=== PATIENT | female | born 1960 | race Caucasian/White ===

== ENCOUNTER 2017-12-22 07:33 | Emergency (ER) | payer OTHER, SELFPAY ==
[2017-12-22 07:35] VITALS: BP 131/64; PULSE 46; RESP 17; TEMP 36.5; BMI 29.7
--- NOTE | 2017-12-22 07:58 | ED.VISSUMM ---
- ER Visit Summary Date of Service: 12/22/17 Chief Complaint: Left posterior neck discomfort History of Present Illness: The patient is a 57 F past medical history of typ-tpinrqp-[id number] diabetes, hypertension, high cholesterol. Patient states the last week she has had discomfort in the left posterior neck. Denies any falls or trauma. No fever. Also describes some discomfort in her left ear. No sore throat. No fever. No trouble with movement of her neck. No prior neck surgery. She denies any pain radiating to her left arm or any numbness or left hand weakness. Physical Examination: Well-appearing middle-age female. Vital signs are stable afebrile. H EENT exam TMs are normal bilaterally. Posterior pharynx normal. No exudate. No trouble swallowing or breathing. Neck trachea midline. No lymphadenopathy. She has full flexion-extension and rotation of her neck without any difficulty. The left posterior base of her neck has trapezial tenderness. There is no redness or warmth. No bony deformity or tenderness of the C-spine. Back otherwise is nontender. Lungs clear to auscultation bilaterally. Heart regular rate and rhythm no murmur. Chest wall nontender. Abdomen soft nontender. She is moving all 4 extremities. They are neurovascularly intact. 5 out of 5 clamp jig assembler strength bilaterally. Normal sensation. Equal symmetrical radial pulses. Full range of motion of both upper extremities including the shoulders, elbows and wrists. Lower extremities are unremarkable with normal dorsi and plantar flexion. Full range of motion. No edema. Neurologic exam is normal. Test Results: None Emergency Department Course and Treatment: Patient's history and exam are consistent with left trapezius muscle spasm. Treatment Plan: Discharged to home. Motrin for pain and inflammation. Warm compresses, hot shower or bath to left neck. Disposition: Discharge Impression: Left trapezius muscle spasm This note was generated with [employer] dictation software. It may contain incorrect words, spelling, and punctuation that were not noted in review of the chart prior to signing ED Disposition - Plan for ED Patient: Chief Complaint: Other, Pain/Inj Referrals: Raffy Naranjo III, MD [Primary Care Provider] -
--- NOTE | 2017-12-22 08:01 | ED.DCSUM_ITS ---
- ER Visit Summary Date of Service: 12/22/17 Chief Complaint: Left posterior neck discomfort History of Present Illness: The patient is a 57 F past medical history of mdk-lfsnhkb-[id number] diabetes, hypertension, high cholesterol. Patient states the last week she has had discomfort in the left posterior neck. Denies any falls or trauma. No fever. Also describes some discomfort in her left ear. No sore throat. No fever. No trouble with movement of her neck. No prior neck surgery. She denies any pain radiating to her left arm or any numbness or left hand weakness. Physical Examination: Well-appearing middle-age female. Vital signs are stable afebrile. H EENT exam TMs are normal bilaterally. Posterior pharynx normal. No exudate. No trouble swallowing or breathing. Neck trachea midline. No lymphadenopathy. She has full flexion-extension and rotation of her neck without any difficulty. The left posterior base of her neck has trapezial tenderness. There is no redness or warmth. No bony deformity or tenderness of the C-spine. Back otherwise is nontender. Lungs clear to auscultation bilaterally. Heart regular rate and rhythm no murmur. Chest wall nontender. Abdomen soft nontender. She is moving all 4 extremities. They are neurovascularly intact. 5 out of 5 process controller strength bilaterally. Normal sensation. Equal symmetrical radial pulses. Full range of motion of both upper extremities including the shoulders, elbows and wrists. Lower extremities are unremarkable with normal dorsi and plantar flexion. Full range of motion. No edema. Neurologic exam is normal. Test Results: None Emergency Department Course and Treatment: Patient's history and exam are consistent with left trapezius muscle spasm. Treatment Plan: Discharged to home. Motrin for pain and inflammation. Warm compresses, hot shower or bath to left neck. Disposition: Discharge Impression: Left trapezius muscle spasm This note was generated with [employer] dictation software. It may contain incorrect words, spelling, and punctuation that were not noted in review of the chart prior to signing ED Disposition - Plan for ED Patient: Chief Complaint: Other, Pain/Inj Referrals: Raffy Naranjo III, MD [Primary Care Provider] -
--- NOTE | 2017-12-22 08:01 | ED.DEP ---
ED Disposition - Plan for ED Patient: Disposition: Home or Assisted Living Chief Complaint: Other, Pain/Inj Instructions: ED Spasm Muscle Referrals: Raffy Naranjo III, MD [Primary Care Provider] - 1 Week if not improving Additional Instructions: Motrin for pain. Warm compresses, hot shower, hot bath or heating pad to left side of your neck to release the muscle spasm. Also massage. Follow-up with your doctor if not improving. Stop smoking!!
== END 2017-12-22 08:11 | disposition home or self-care (01) ==
PROVIDERS: Emergency Provider Emergency Medicine; Family Provider Family Medicine; PCP Family Medicine
DX: M62.830 Muscle spasm of back (principal); E11.9 Type 2 diabetes mellitus without complications; I10 Essential (primary) hypertension; E78.00 Pure hypercholesterolemia, unspecified; Z72.0 Tobacco use; Z79.84 Long term (current) use of oral hypoglycemic drugs; Z79.899 Other long term (current) drug therapy
CPT/HCPCS: 99282

== ENCOUNTER 2018-07-17 07:14 | Emergency (ER) | payer OTHER, SELFPAY ==
[2018-07-17 07:16] VITALS: BP 168/79; PULSE 48; RESP 18; TEMP 36.6; O2SAT 98
--- NOTE | 2018-07-17 07:26 | RAD_ITS ---
STUDY: X-RAY CHEST REASON FOR EXAM: Female, 57 years old. Swelling in the left shoulder region. TECHNIQUE: PA and lateral views of the chest. COMPARISON: None. FINDINGS: EKG electrodes are seen. The lungs are clear and expanded. There is no demonstrated pleural abnormality. Normal size heart. Normal mediastinum and pietro. Normal visualized pulmonary arteries. Normal visualized aortic arch and descending thoracic aorta. There are mild degenerative changes of the visualized thoracic spine. Normal visualized ribs, clavicles, and shoulders. There is no demonstrated abnormality of the visualized soft tissue structures of the upper abdomen. RAD/Chest PA and Lateral IMPRESSION: No acute abnormality is seen. Electronically Signed: Jose Martin Cohn, at 8:12 EDT , Service support ,
--- NOTE | 2018-07-17 07:31 | ED.DCSUM_ITS ---
History of Present Illness Chief Complaint: General Illness Detail of Chief Complaint: Pain left clavicle and fullness in the supraclavicular fossa on the left Informant: Patient Onset: Weeks - Patient reports intermittent left clavicular pain and fullness noted 1 week ago. Context: Sudden Onset Timing: Continuous - Fullness has been constant, Intermittent - Pain is intermittent Quality: Sharp pain Location: Left clavicle Current Severity: - - Presently no pain. Positive fullness supraclavicular fossa Maximum Severity: Moderate Worsened by: Nothing Relieved by: Nothing Associated Symptoms: No associated symptoms Narrative: Patient is a 57-year-old zuxop-goxq-[id number] woman who was sent from urgent care because of bradycardia. Patient states her blood pressure is normally low. She denies dyspnea, dyspnea on exertion, chest pressure, heaviness. She denies orthostatic symptoms. She does report intermittent left clavicular pain for the past week. She is noted a fullness in the supraclavicular fossa. She denies fever, chills or night sweats. She denies weight loss. She reports weight gain. She denies change in bowels i.e. caliber, consistency, color or frequency. She is a smoker. She is been a smoker since she was a teenager. She does have a cough. The cough is nonproductive. There is no history of trauma. She denies paresthesia, anesthesia motor weakness upper extremities. She denies radiation of the discomfort to her back or anywhere. Prior similar symptoms: No Recent Illness/Hospitalization: No - Past Medical History (1) History of hypertension Status: Acute (2) History of type 2 diabetes mellitus Status: Acute (3) History of hypercholesterolemia Status: Acute Past Medical History - Allergies and Home Meds Allergies/Adverse Reactions: Allergies No Known Allergies Allergy (Verified 07/17/18 07:18) Primary Care Physician: Raffy Naranjo III, MD [Primary Care Provider] - Prior records reviewed: Yes Lives: Alone Smoking Status: Current every day smoker Drugs: None Review of Systems General: Denies: Chills, Fever, Malaise, Subjective, Sweats, Weight loss, - Eyes: Denies: Visual changes - bilaterally, Blurred Vision - bilaterally, Diplopia ENT: Denies: Rhinorrhea, Sore throat Cardiovascular: Denies: Chest pain, Palpitations, Heart racing Respiratory: Reports: Cough. Denies: Dyspnea, Sputum, Dyspnea on exertion, Orthopnea, Paroxysmal nocturnal dyspnea Gastrointestinal: Denies: Abdominal pain, Nausea, Vomiting, Diarrhea, Constipation, Melena, Hematochezia, -, - Musculoskeletal: Denies: Myalgias, Arthralgias, Neck pain, Back pain, Swelling, Extremity Pain Skin: Denies: Rash, Wounds Neurological: Denies: Weakness, Parasthesia Allergy: Denies: Uticaria, Swelling of the mouth, Swelling of the tongue Physical Exam Vital Signs/Narrative: Vital Signs Temp Pulse Resp BP Pulse Ox 07/17/18 07:16 98 F 48 L 18 168/79 H 98 Inital Vital Signs reviewed: Yes General: Well nourished, Well developed, No Acute Distress Head: Normocephalic, Atraumatic Eyes: Perrl, EOMI. Negative for: Pale conjunctiva, Scleral icterus, - ENT: Moist mucous membranes, No rhinorrhea, TM's clear Neck: Supple, Nontender, No lymphadenopathy, No JVD, - - Status post right carotid endarterectomy. There is fullness left side of neck/supraclavicular fossa. Cardiovascular: Regular rhythm, No murmurs, Normal S1, Normal S2, Bradycardia Respiratory: No distress, Chest nontender, Rales - Scattered and inspiratory rales., Diminished, - - There is no tenderness to the left clavicle. There is fullness left anterior neck/supraclavicular fossa. There is no lymphadenopathy. There is no palpable mass. There is no crepitus or subcutaneous air noted. Abdomen: Soft, Nontender, Nondistended, Normal bowel sounds Skin: Normal color, No rash, No Trauma. Negative for: Cyanosis, Diaphoresis, Jaundice Neurological: Alert, Oriented x3, Cranial nerves II-XII grossly intact, Normal Strength, Normal Sensation, Normal Gait Psychological: Normal affect Diagnostic/Tx/Re-eval Chest X-Ray - ED: 2 View, Read by ED Physician, Normal, Heart, Mediastinum, Bony Structures, No Acute Disease, Chronic Changes, - - There is minimal chronic changes noted. There is mild scoliosis. There is no asymmetry of the neck soft tissue. Impressions Chest X-Ray 07/17/18 07:26 IMPRESSION: No acute abnormality is seen. Electronically Signed: Jose Martin Cohn, at 8:12 EDT , Service support , 07/17/18 07:26 Chest PA and Lateral [RAD] Stat Laboratory Results 07/17/18 07/17/18 07:48 07:48 WBC 9.4 RBC 4.80 Hgb 14.9 Hct 43.8 MCV 91.3 MCH 31.0 MCHC 34.0 RDW 13.4 RDW Differential 44.6 H Plt Count 301 MPV 9.7 Immature Gran % (Auto) 0.100 Neut % (Auto) 62.4 Lymph % (Auto) 22.9 Stephenson % (Auto) 8.5 Eos % (Auto) 5.5 H Baso % (Auto) 0.6 Absolute Neuts (auto) 5.9 Absolute Lymphs (auto) 2.16 Total Counted Not Reportable Sodium 134 L Potassium 4.2 Chloride 103 Carbon Dioxide 26.0 Anion Gap 5 BUN 10 Creatinine 1.08 H Estim Creat Clear Calc 43.89 Est GFR (MDRD) Af Amer 67 Est GFR (MDRD) Non-Af 56 L BUN/Creatinine Ratio 9.3 L Glucose 112 H Calcium 9.1 - Rhythm Strip Rhythm Strip: Atrial bigeminy with a ventricular rate of 84 Rate: 84 Ectopy: PAC(s) - Medical Decision Making The soft tissue fullness may represent apical bleb. With history of smoking one needs to entertain possibility of malignancy. There is no clinical findings to suggest supra vena cava syndrome. BMP and CBC were obtained to assess for electrolyte abnormality or anemia which may suggest malignancy. Patient's work-up was unremarkable. If she develops any symptoms or change in fullness will have her follow-up with PCP, Dr. Raffy Naranjo iii. ED Disposition - Plan for ED Patient: Diagnosis: Atrial bigeminy, Pain of left clavicle Instructions: ED Acute Pain [facility] Referrals: Raffy Naranjo III, MD [Primary Care Provider] - 1 Week if not improving Additional Instructions: If you develop temperature greater than 100, if the area becomes discolored or you have any concerns follow-up with Dr. Raffy Naranjo iii.
[2018-07-17 07:37] VITALS: BP 168/79; PULSE 48; RESP 18; TEMP 36.6; O2SAT 98
[2018-07-17 07:52] VITALS: BP 164/50; PULSE 82; RESP 22; O2SAT 98
[2018-07-17 08:04] LABS: Absolute Lymphocyte Count 2.16 X10^3/ul (0.83-4.51); Absolute Neutrophil Count 5.9 X10^3/uL (2.0-7.7); Basophil# 0.06 X10^3/uL; Basophil% 0.6 % (0-1); Eosinophil# 0.52 X10^3/uL; Eosinophils% 5.5 % (0-5); Hematocrit 43.8 % (37-47); Hemoglobin 14.9 g/dl (12.0-15.0); Lymphocyte # 2.16 X10^3/ul (4.0); Lymphocyte % 22.9 % (19-41); Mean Corpuscular Volume 91.3 fL (81-99); Mean Platelet Vol. 9.7 fl (6.2-12.0); Monocyte% 8.5 % (0-10); Neutrophil # 5.89 X10^3/uL (2.7-7.7); Neutrophil % 62.4 % (47-70); Platelet Count 301 K/mm3 (150-450); RBC Distribution Width CV 13.4 % (11.6-14.6); RBC Distribution Width SD 44.6 fl (35.1-43.9); White Blood Count 9.4 K/mm3 (4.4-11.0)
[2018-07-17 08:07] LABS: POSITIVE COUNT NO; POSITIVE DIFFERENTIAL NO; POSITIVE MORPHOLOGY NO
[2018-07-17 08:14] LABS: Anion Gap 5 (5-15); BUN 10 mg/dL (7-18); BUN/Creat Ratio 9.3 RATIO (10-20); Calcium,Total 9.1 mg/dL (8.5-10.1); Chloride 103 mmol/L (98-107); Creatinine, Serum 1.08 mg/dL (0.55-1.02); EST Glomerular Filtration Rate 56 mL/min (>60); Est Glom Filt Rate - Afr Amer 67 mL/min (>60); Estimated Creatinine Clearance 43.89 ml/min; Glucose 112 mg/dL (74-106); Potassium 4.2 mmol/L (3.5-5.1); Sodium Level 134 mmol/L (136-145)
[2018-07-17 08:35] VITALS: BP 125/55; PULSE 83; RESP 19; O2SAT 98
== END 2018-07-17 08:40 | disposition home or self-care (01) ==
LOC: ED 07:32
PROVIDERS: Emergency Provider Emergency Medicine; Family Provider Family Medicine; PCP Family Medicine
DX: R00.8 Other abnormalities of heart beat (principal); M25.512 Pain in left shoulder; E11.9 Type 2 diabetes mellitus without complications; I10 Essential (primary) hypertension; E78.00 Pure hypercholesterolemia, unspecified; F17.200 Nicotine dependence, unspecified, uncomplicated; Z79.899 Other long term (current) drug therapy; Z79.84 Long term (current) use of oral hypoglycemic drugs
CPT/HCPCS: 36415; 71046; 80048; 85025; 99282; A4216

== ENCOUNTER 2020-07-11 09:09 | Emergency (ER) | payer OTHER, SELFPAY ==
[2020-07-11 09:09] VITALS: BP 140/78; PULSE 80; RESP 18; TEMP 36.6; O2SAT 99; BMI 29.2
--- NOTE | 2020-07-11 09:15 | EKG12_ITS ---
Test Reason : SOB Blood Pressure : / mmHG Vent. Rate : 074 BPM Atrial Rate : 074 BPM P-R Int : 172 ms QRS Dur : 096 ms QT Int : 404 ms P-R-T Axes : 051 -32 034 degrees QTc Int : 448 ms Normal sinus rhythm Left axis deviation Low voltage QRS (Limb Leads) Abnormal ECG Confirmed by MARICEL PALACIO, RAVINDER ([id number]), news copy editor TENISHA SHAIKH ([id number]) on 07/13/2020 12:23:37 PM Referred By: SUSAN Confirmed By:RAVINDER CONNELLY MD
--- NOTE | 2020-07-11 09:24 | EDS_ITS ---
HPI History of Present Illness Chief Complaint: Shortness of Breath Narrative Narrative: The patient presents with chronic cough shortness of breath related to COPD she has had for longstanding possibly years she is on Proventil inhaler she is seen by Dr. Acosta primary care indicates her cough seems to be slightly worse, no mucus no fever no coronavirus exposure infection indicates she has been vaccinated in June she believes she was tested postvaccination did not have coronavirus had no exposures she is eating and drinking well bowel bladder habits unremarkable able XL daily activities she has no shortness of breath sitting in the bed her vital signs are unremarkable her pulse ox is 97% and no exposures to coronavirus, she indicates she feels back to baseline she has been using her inhaler [facility] Medical History (Updated 07/11/20 @ 09:30 by Jaja Whitten) COPD (chronic obstructive pulmonary disease) Diabetic acetonemia Hyperlipidemia Home Medications atorvastatin 20 mg PO QHS 12/22/17 [History Last Taken Unknown] lisinopril 5 mg PO DAILY 12/22/17 [History Last Taken Unknown] metformin 500 mg PO DAILY 12/22/17 [History Last Taken Unknown] thiothixene 2 mg PO DAILY 12/22/17 [History Last Taken Unknown] Allergy/AdvReac Type Severity Reaction Status Date / Time No Known Allergies Allergy Verified 07/11/20 09:12 Surgical History (Updated 07/11/20 @ 09:30 by Jaja Whitten) H/O carotid endarterectomy History of appendectomy Social History Smoking Status: Current every day smoker tobacco type: cigarettes ROS ROS ED Constitutional Constitutional ED: Reports subjective, sweats and other; Denies chills, fever(s) or weight loss Eyes Eyes: Denies blurry vision or change in vision ENT ENT ED: Denies ear pain Cardiovascular Cardiovascular: Denies chest pain or palpitations Respiratory/Chest Respiratory/Chest: Denies dyspnea Gastrointestinal Gastrointestinal: Denies abdominal pain, nausea or vomiting Genitourinary Genitourinary ED: Denies dysuria or hematuria Musculoskeletal Musculoskeletal: Denies arthralgias or myalgias Integumentary Reports rash; Denies abscess Neurologic Neurologic: Denies weakness Psychiatric Psychiatric: Denies anxiety or depression Endocrine Endocrinology: Denies polydipsia or polyuria Allergic/Immunologic Allergic/Immunologic ED: Denies urticaria EXAM Physical Exam Const Vital Signs: 07/11/20 09:09 07/11/20 09:29 Temperature 97.9 F Temperature Source Temporal Pulse Rate 80 75 Respiratory Rate 18 20 H Respiratory Effort Short of Breath Labored Respiratory Pattern Normal Blood Pressure 140/78 H Blood Pressure Mean 98 Pulse Ox 99 97 Oxygen Delivery Method Room Air Room Air Positive well developed General Appearance ED: well developed HEENT Reports normocephalic Negative for trauma Eyes EOMs intact bilaterally Neck supple Chest Wall inspection of chest normal Resp normal respiratory effort Cardio regular rate GI non-tender and non-distended Back/Spine Back/Spine Narrative: unremarkable Extremity normal to inspection Neuro oriented x3 and CN's II-XII intact bilaterally Sensorium / Orientation: alert Psych mental status grossly normal Skin no rashes or lesions noted MDM MDM MDM Narrative Medical decision making narrative: The patient is in no distress her vital signs are normal her lungs are clear heart tones are unremarkable resting comfortably in the bed she is eating and drinking well she indicates that basically she feels at her baseline this is a chronic relapsing condition with a cough history of COPD there is nothing to suggest this is acute issue related to coronavirus given the above history given all the above she will be evaluated with ED screening labs chest x-ray EKG Patient's EKG shows a sinus rhythm rate of about 70 no acute injury her chest x- ray to my review 1 view was unremarkable radiology generally concurs she is in no distress she feels fine this time she be discharged home and can use her inhaler as well as outpatient providers return for change in symptoms Final impression exacerbation of COPD improved, Home stable disposition Lab Data Labs: Laboratory Results - last 24 hr 07/11/20 07/11/20 09:35 09:35 WBC 8.5 RBC 4.26 Hgb 13.8 Hct 40.5 MCV 95.1 MCH 32.4 H MCHC 34.1 RDW Std Deviation 46.5 H RDW Coeff of Panchito 13.2 Plt Count 320 MPV 9.3 Immature Gran % (Auto) 0.500 Neut % (Auto) 62.1 Lymph % (Auto) 25.9 Bowman % (Auto) 6.8 Eos % (Auto) 3.9 Baso % (Auto) 0.8 Absolute Neuts (auto) 5.3 Absolute Lymphs (auto) 2.21 Nucleated RBC % 0 Sodium 134 L Potassium 4.3 Chloride 104 Carbon Dioxide 25.0 Anion Gap 5 BUN 11 Creatinine 1.00 Estim Creat Clear Calc 46.27 Est GFR (MDRD) Af Amer 73 Est GFR (MDRD) Non-Af 60 BUN/Creatinine Ratio 11.0 Glucose 113 H Calcium 9.2 Radiography Diagnostic Testing: Radiology Impression Chest X-Ray 07/11/20 09:35 IMPRESSION: Normal x-ray examination of the chest. Electronically Signed: Jose Martin Cohn MD at 9:55 EDT , Service support , Discharge Plan Triage Chief Complaint: Shortness of Breath ED Provider: Abbey Munoz Dx/Rx/DC Orders Instructions: ED COPD Flare Prescriptions: No Action metformin 500 MG tablet 500 mg PO DAILY RF: 0 atorvastatin 20 MG tablet 20 mg PO QHS RF: 0 thiothixene 2 MG capsule 2 mg PO DAILY RF: 0 lisinopril 5 MG tablet 5 mg PO DAILY RF: 0 Primary Care Provider: Raffy Naranjo III Referrals: Raffy Naranjo III, MD [Primary Care Provider] - Disposition Disposition: Home, self care
[2020-07-11 09:29] VITALS: PULSE 75; RESP 20; O2SAT 97
--- NOTE | 2020-07-11 09:35 | RAD_ITS ---
STUDY: X-RAY CHEST REASON FOR EXAM: Female, 59 years old. Sob TECHNIQUE: Single AP portable view of the chest. COMPARISON: Comparison is made with prior study dated 07/17/2018. FINDINGS: EKG electrodes are seen. The lungs are clear and expanded. There is no demonstrated pleural abnormality. Normal size heart. Normal mediastinum and pietro. Normal visualized pulmonary arteries. Normal visualized aortic arch and descending thoracic aorta. There are diffuse degenerative changes of the visualized thoracic spine. Normal visualized ribs, clavicles, and shoulders. There is no demonstrated abnormality of the visualized soft tissue structures of the upper abdomen. RAD/Chest 1 View (Portable) IMPRESSION: Normal x-ray examination of the chest. Electronically Signed: Jose Martin Cohn MD at 9:55 EDT , Service support ,
[2020-07-11 09:42] LABS: Absolute Lymphocyte Count 2.21 X10^3/uL (0.83-4.51); Absolute Neutrophil Count 5.3 X10^3/uL (2.0-7.7); Basophil# 0.07 X10^3/uL; Basophil% 0.8 % (0-1); Eosinophil# 0.33 X10^3/uL; Eosinophils% 3.9 % (0-5); Hematocrit 40.5 % (37-47); Hemoglobin 13.8 g/dL (12.0-15.0); Lymphocyte # 2.21 X10^3/ul (0.83-4.51); Lymphocyte % 25.9 % (19-41); Mean Corp Hgb Conc 34.1 g/dL (32-36); Mean Corpuscular Hgb 32.4 pg (27.0-32.0); Mean Corpuscular Volume 95.1 fL (81-99); Mean Platelet Vol. 9.3 fl (6.2-12.0); Monocyte# 0.58 X10^3/uL; Monocyte% 6.8 % (0-10); NRBC Flagged by Analyzer 0 % (0-5); Neutrophil # 5.31 X10^3/uL (2.7-7.7); Neutrophil % 62.1 % (47-70); Platelet Count 320 K/mm3 (150-450); RBC Distribution Width CV 13.2 % (11.6-14.6); RBC Distribution Width SD 46.5 fl (35.1-43.9); Red Blood Count 4.26 M/mm3 (4.2-5.4); White Blood Count 8.5 K/mm3 (4.4-11.0)
[2020-07-11 09:57] LABS: Anion Gap 5 (5-15); BUN 11 mg/dL (7-18); Calcium,Total 9.2 mg/dL (8.5-10.1); Chloride 104 mmol/L (98-107); EST Glomerular Filtration Rate 60 mL/min (>60); Est Glom Filt Rate - Afr Amer 73 mL/min (>60); Estimated Creatinine Clearance 46.27 ml/min; Glucose 113 mg/dL (74-106); Potassium 4.3 mmol/L (3.5-5.1); Sodium Level 134 mmol/L (136-145)
[2020-07-11 11:24] VITALS: BP 139/87; PULSE 74; RESP 18; O2SAT 97
== END 2020-07-11 11:31 | disposition home or self-care (01) ==
PROVIDERS: Emergency Provider Emergency Medicine; PCP Family Medicine
DX: J44.1 Chronic obstructive pulmonary disease with (acute) exacerbation (principal); F17.210 Nicotine dependence, cigarettes, uncomplicated; E78.5 Hyperlipidemia, unspecified
CPT/HCPCS: 71045; 80048; 85025; 93005; 99281; A4216

== ENCOUNTER → 2020-07-20 06:40 | Outpatient (CLI) | payer OTHER, SELFPAY ==
[2020-07-11 09:09] VITALS: BMI 29.2
--- NOTE | 2020-07-20 09:48 | STRESSREP_ITS ---
Stress Test Report Date: 07-20-2020 Procedure: Pharmacologic stress nuclear imaging study Indications: Shortness of breath/dyspnea on exertion; lightheadedness Consent: Per the patient Procedure: The patient underwent pharmacologic (Regadenoson 0.4mg ) evaluation with a peak heart rate of 81 beats per minute (50%predicted maximal heart rate) and a peak blood pressure of 120/48 mmHg. The baseline ECG demonstrated sinus rhythm. The peak pharmacologic ECG demonstrated no obvious ECG changes. There were no cardiac dysrhythmias pretest, during pharmacologic infusion, or recovery. There was no complaint of chest discomfort during pharmacologic infusion or recovery. The examination was discontinued secondary to completion of protocol. Impression: 1. Pharmacologic (Regadenoson) evaluation 2. Peak pharmacologic ECG with no obvious ECG changes. 3. There were no cardiac dysrhythmias pretest, during pharmacologic infusion, or recovery. 4. Nuclear images pending Myocardial perfusion imaging study: Technique: The patient was injected with 11.6 millicuries of technetium 99m Cardiolite and subsequently rest SPECT Cardiolite nuclear imaging was obtained in the horizontal long, vertical long, and short axis views. The patient underwent pharmacologic (Regadenoson) evaluation with a peak heart rate of 81 beats per minute (50% percent predicted maximal heart rate) and a peak blood pressure of 120/48 mmHg. The patient was injected with 32.9 millicuries of technetium 99m Cardiolite and subsequently stress SPECT Cardiolite nuclear imaging was obtained in the horizontal long, vertical long, and short axis views. A gated Cardiolite study at peak stress was obtained. Interpretation: Rest and stress SPECT Cardiolite nuclear imaging status post realignment, normalization, and attenuation correction demonstrate relative uniform tracer uptake and myocardial perfusion appearing within normal limits. There is end systolic thickening and brightening. The gated Cardiolite study demonstrates myocardial thickening and inward wall motion. The reported LVEF is 71%. Impression: 1. Rest and stress SPECT Cardiolite nuclear imaging demonstrate relative uniform tracer uptake and myocardial perfusion appearing within normal limits. 2. The gated Cardiolite study reports an LVEF of 71%. This note was generated with [email or web address] software. It may contain incorrect words, spelling, and punctuation that were not noted in checking the note before signing.
== END ==
LOC: CVS 06:42
PROVIDERS: PCP Family Medicine; Referring Provider Registered Nurse; Visit Provider Registered Nurse
DX: R06.02 Shortness of breath (principal)
CPT/HCPCS: 78452; 93017; A9500; A4216; J2785

== ENCOUNTER 2022-10-09 17:08 | Emergency (ER) | payer OTHER, SELFPAY ==
[2022-10-09 17:09] VITALS: BP 140/71; PULSE 85; RESP 18; TEMP 35.8; O2SAT 100; BMI 26.8
--- NOTE | 2022-10-09 17:29 | ED.VIS.LOWEX ---
HPI History of Present Illness Chief Complaint: Lower Extremity Injury Narrative Narrative: 61-year-old female past medical history of hypercholesterolemia, hypertension, diabetes, smoker, presents with pain in her right leg since yesterday. 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 She noticed swelling of the upper portion of her right knee and medially. She denies any chest pain or shortness of breath. She denies any fall or direct trauma to her leg. She went to urgent care today who states that she needs to come to the emergency department for an ultrasound. She states they were trying to set her up for an ultrasound on Friday, but the provider there was concerned about a blood clot or Frances's cyst. [facility] Medical History COPD (chronic obstructive pulmonary disease) Diabetic acetonemia Hyperlipidemia Home Medications atorvastatin 20 mg tablet 20 mg PO QHS 12/22/17 [History Last Taken Unknown] lisinopril 5 mg tablet 5 mg PO DAILY 12/22/17 [History Last Taken Unknown] metformin 500 mg tablet 500 mg PO DAILY 12/22/17 [History Last Taken Unknown] thiothixene 2 mg capsule 2 mg PO DAILY 12/22/17 [History Last Taken Unknown] Allergy/AdvReac Type Severity Reaction Status Date / Time No Known Allergies Allergy Verified 10/09/22 17:09 Surgical History H/O carotid endarterectomy History of appendectomy Social History Smoking Status: Current every day smoker tobacco type: cigarettes ROS ROS ED ROS Narrative Constitutional: No fever, no chills. HEENT: No sore throat. No neck pain. No loss of vision. No rhinorrhea. Cardiovascular: No chest pain. No palpitations. No pedal edema. Respiratory: No cough, no shortness of breath. Abdominal: No abdominal pain. No nausea. No vomiting. Genitourinary: No dysuria. No hematuria. Musculoskeletal: No myalgias. Right medial and caudal knee pain and swelling. Also complained of pain behind knee. Neurologic: No headaches. No dizziness. No lightheadedness. Skin: No rash. No change in color. Psychiatric: No depression. No anxiety. EXAM Physical Exam Narrative Exam Narrative: Afebrile. Vital signs noted. HEENT: Normocephalic. Atraumatic. PERRL, EOMI. Neck soft and supple. No point tenderness or step off. Cardiovascular: Regular rate and rhythm. No murmurs, rubs, or gallops appreciated. Respiratory: No tachypnea. Lungs clear to auscultation bilaterally. Gastrointestinal: Abdomen soft, nontender, with normoactive bowel sounds. No rebound or guarding. Neurological: Awake. Alert. Nonfocal, nonlateralizing. Skin: No rash. Normal color. No pallor. Musculoskeletal: No pedal edema. Full range of motion extremities. Flexion and extension mechanism intact right knee. No overt swelling or erythema. No palpable cord. EHL intact. No calf tenderness, no medial thigh tenderness or swelling. Const Vital Signs: 10/09/22 17:09 10/09/22 17:56 Temperature 96.5 F L Temperature Source Temporal Pulse Rate 85 79 Respiratory Rate 18 16 Blood Pressure 140/71 H 124/74 H Blood Pressure Mean 94 90 Pulse Ox 100 99 Oxygen Delivery Method Room Air Room Air MDM MDM MDM Narrative Medical decision making narrative: In the differential diagnosis is DVT versus Frances's cyst versus tendinitis versus knee sprain. I have lower suspicion for DVT based on her clinical examination. I do not feel laboratory work is indicated. Ultrasound was obtained of the right lower extremity and results were reviewed. I do not feel x-ray of the knee is indicated as she has been ambulatory and has had no direct trauma. I reviewed the radiology report of her ultrasound of the right lower extremity and while there is no DVT there is a cyst in the popliteal fossa that measures 3.0 x 2.8 x 0.9 cm. I feel this is more consistent with a Frances's cyst. As she has no DVT I do not feel any blood thinners are indicated. I feel she be discharged safely home with follow-up to her primary care provider and she was referred to orthopedics for further evaluation and treatment for her Frances's cyst. Return instructions to the emergency department were reviewed. Disposition is discharged home in stable condition. History & Record Review Discussion w/independent historian: Patient Additional record(s) reviewed:: Prior ED visit Radiography Diagnostic Testing: Clinical Impression(s) from Imaging Studies Venous Duplex 10/09/22 17:32 IMPRESSION: 1. No sonographic evidence of deep venous thrombosis. 2. Popliteal fossa cyst. Electronically Signed: Noam George MD at 18:26 EDT , Discharge Plan Triage Chief Complaint: Lower Extremity Injury ED Provider: Guille Charles Dx/Rx/DC Orders Clinical Impression: Frances's cyst of knee, Knee pain Instructions: ED Frances's Cyst, ED Knee Pain of Uncertain Cause Prescriptions: No Action metformin 500 MG tablet 500 mg PO DAILY atorvastatin 20 MG tablet 20 mg PO QHS thiothixene 2 MG capsule 2 mg PO DAILY Patient Comments: take 1 capsule by mouth twice a day lisinopril 5 MG tablet 5 mg PO DAILY Stand Alone Forms: ED Work / School Excuse Primary Care Provider: Lulu Esparza NP Referrals: Blair Braxton DO [Med Staff - Active Staff] - As Needed Lulu Esparza NP, [employer] [Primary Care Provider] - 3-5 Days Disposition Disposition: Home, Self Care Discharge Date/Time: 10/09/22 18:06
--- NOTE | 2022-10-09 17:32 | US_ITS ---
EXAM: US DUPLEX RIGHT LOWER EXTREMITY VEINS CLINICAL INDICATION: POSTERIOR RT KNEE PAIN / SWELLING TECHNIQUE: Real-time duplex ultrasound scan of the right lower extremity veins integrating B-mode two-dimensional vascular structure, Doppler spectral analysis, color flow Doppler imaging and compression. COMPARISON: No relevant prior studies available. FINDINGS: DEEP VEINS: Unremarkable. No DVT in the visualized common femoral, femoral, proximal deep femoral or popliteal veins. The veins demonstrate normal color flow, are normally compressible, with normal phasic flow and/or augmentation response. SUPERFICIAL VEINS: Unremarkable. No thrombus in the visualized great saphenous vein. SOFT TISSUES: There is a 3.0 x 2.8 x 0.9 cm fluid collection compatible with a popliteal fossa cyst. US/Venous Duplex Imag/Limited/Uni IMPRESSION: 1. No sonographic evidence of deep venous thrombosis. 2. Popliteal fossa cyst. Electronically Signed: Noam George MD at 18:26 EDT ,
[2022-10-09 17:56] VITALS: BP 124/74; PULSE 79; RESP 16; O2SAT 99
== END 2022-10-09 18:06 | disposition home or self-care (01) ==
PROVIDERS: Emergency Provider Emergency Medicine; PCP Registered Nurse; Visit Provider Emergency Medicine
DX: M71.21 Synovial cyst of popliteal space [Baker], right knee (principal); J44.9 Chronic obstructive pulmonary disease, unspecified; E11.9 Type 2 diabetes mellitus without complications; F17.210 Nicotine dependence, cigarettes, uncomplicated; I10 Essential (primary) hypertension; M25.561 Pain in right knee; E78.00 Pure hypercholesterolemia, unspecified; Z79.899 Other long term (current) drug therapy; Z79.84 Long term (current) use of oral hypoglycemic drugs
CPT/HCPCS: 93971; 99282

== ENCOUNTER → 2024-01-21 | Outpatient (CLI) | payer MEDICAID, SELFPAY ==
[2024-01-21 12:11] LABS: Anion Gap 3 (5-15); BUN 7 mg/dL (7-18); Calcium,Total 9.5 mg/dL (8.5-10.1); Chloride 105 mmol/L (98-107); Creatinine, Serum 0.88 mg/dL (0.55-1.02); EST Glomerular Filtration Rate 69 mL/min (>60); Est Glom Filt Rate - Afr Amer 84 mL/min (>60); Glucose 108 mg/dL (74-106); Potassium 4.5 mmol/L (3.5-5.1); Sodium Level 137 mmol/L (136-145)
== END | disposition home or self-care (01) ==
PROVIDERS: PCP Registered Nurse; Referring Provider Internal Medicine Cardiovascular Disease; Visit Provider Internal Medicine Cardiovascular Disease
DX: Z86.39 Personal history of other endocrine, nutritional and metabolic disease (principal); Z86.79 Personal history of other diseases of the circulatory system
CPT/HCPCS: 36415; 80048

== ENCOUNTER 2024-11-18 20:33 | Inpatient (IN) | payer SELFPAY ==
[2024-11-18] VITALS (47 sets, daily range): BP systolic 54–131; BP diastolic 21–72; PULSE 65–145; RESP 12–32; TEMP 27.2–34.8; O2SAT 65–100; BMI 31.2
--- NOTE | 2024-11-18 20:50 | RAD_ITS ---
PROCEDURE: CHEST 1 VIEW (PORTABLE) 11/18/2024 REASON FOR EXAM: HYPOXIA, RESPIRATORY DISTRESS TECHNIQUE: Frontal view of the chest. COMPARISON: None. FINDINGS: Lungs/Pleura: Clear. No pneumothorax or sizable pleural effusion. Heart/Mediastinum: Within normal limits. No significant vascular congestion. Bones/Soft tissues: Mild degenerative changes of the spine. RAD/Chest 1 View (Portable) IMPRESSION: No acute cardiopulmonary disease. Reading Location: [id number]
[2024-11-18] MEDS: Albuterol 2.5 MG/3 ML VIAL.NEB. INHALATION ×3 (21:06→22:02)
[2024-11-18 21:13] LABS: Base Excess -13 mmol/L (-2 to +2); FI02 6.0; PO2 504 mmHG (75-100); SITE L Radial; SO2 100 % (95-99); Time Given 21:09:37
[2024-11-18] MEDS: 0.9% Normal Saline (1000mL) 1,000 ML 1000 ML IV (21:17)
[2024-11-18] MEDS: 0.9% Normal Saline (1000mL) 1,000 ML 999 ML IV ×2 (21:18→21:36)
[2024-11-18 21:36] LABS: Partial Thromboplast Time 32.1 Seconds (24.1-36.2); Prothrombin Time (Protime)PT. 15.7 SECONDS (11.7-14.9)
--- NOTE | 2024-11-18 21:51 | EDS_ITS ---
HPI History of Present Illness Chief Complaint: Chest Pain Detail of Chief Complaint: Per nursing staff she told them chest pain. She told me shortness of breat Informant: patient and EMS Onset/Context/Timing Onset: - (Uncertain because of decreased level of consciousness) Context: Sudden Onset (From what the nurses told me) Timing: Continuous Quality: Dyspnea, diaphoresis with cough Location: Multiple Current Severity: Severe Maximum Severity: Severe Worsened by: Unknown Relieved by: Improved with oxygen Associated Symptoms Associated Symptoms: Not able to determine for. Narrative Narrative: Patient is 64-year-old woman. she arrived by ambulance for reported chest pain. When I spoke to her once she became more lucid she complains of shortness of breath. She presently is denying chest pain. She denies fever or chills. She denies headache. She denies visual, ocular auditory symptoms. She does have a cough. The cough is nonproductive. There is no history of VTE. She has no risk factors for VTE. She denies leg pain, swelling discoloration. Patient denies abdominal pain. Patient denies urologic symptoms. Prior similar symptoms: No Recent Illness/Hospitalization: No PFSH PFSH Medical History Nicotine use disorder Septic arthritis Elevated coronary artery calcium score Neck pain Bilateral carotid artery stenosis Snoring Peripheral arterial disease Fatty liver disease, nonalcoholic Major depressive disorder, recurrent episode Bradycardia Palpitations SOB (shortness of breath) Diabetic acetonemia COPD (chronic obstructive pulmonary disease) Hyperlipidemia Home Medications ?Medication ?Instructions ?Recorded ?Last Taken ?Type atorvastatin 20 mg tablet 20 mg PO QHS 12/22/17 Unknow n History lisinopril 5 mg tablet 5 mg PO DAILY 12/22/17 Unkno wn History metformin 500 mg tablet 500 mg PO DAILY 12/22/17 Unk nown History aspirin 81 mg tablet,delayed 81 mg PO QDAY 01/14/24 Un known History release (Adult Aspirin Regimen) bupropion HCl 150 mg tablet,12 hr 150 mg PO BID Unknown History sustained-release (Wellbutrin SR) buspirone 5 mg tablet 5 mg PO TID 01/14/24 Unknown History cyclobenzaprine 5 mg tablet 5 mg PO TID PRN 01/14/24 U nknown History fluticasone fur. 100 mcg-umeclid 1 inh inhalation QDAY 01/14/24 Unknown History 62.5 mcg-vilant 25 mcg inhalat.powder (Trelegy Ellipta) ibuprofen 800 mg tablet 800 mg PO Q8H PRN 01/14/24 U nknown History imipramine HCl 50 mg tablet 150 mg PO QHS 01/14/24 Unk nown History ondansetron HCl 4 mg tablet 4 mg PO Q8H PRN 01/14/24 U nknown History thiothixene 2 mg capsule 2 mg PO BID 01/14/24 Unknown History zolpidem 10 mg tablet (Ambien) 10 mg PO QHS PRN sleep 01/14/24 Unknown History melatonin 5 mg capsule mg PO PRN 01/21/24 Unknown H istory pantoprazole 40 mg tablet,delayed 40 mg PO DAILY #90 t abs 03/26/24 Unknown Rx release Allergy/AdvReac Type Severity Reaction Status Date / Time simvastatin Allergy Other Verified 11/18/24 21:07 Family History Mother Heart disease Father Diabetes Brother Parkinson's disease Surgical History History of arthroscopy of knee History of colonoscopy History of rectal polypectomy History of cardiac catheterization H/O carotid endarterectomy History of appendectomy Social History household members: children Smoking Status: Current every day smoker tobacco type: cigarettes alcohol intake: never substance use type: does not use caffeine: Yes ROS ROS ED Review of Systems ROS Unobtainable: due to mental status Constitutional Constitutional ED: Reports other Details: Patient was cyanotic and diaphoretic upon presentation and respiratory distress ; Denies chills or fever(s) Eyes Eyes: Denies blurry vision or change in vision ENT ENT ED: Denies rhinorrhea or sore throat Cardiovascular Cardiovascular: Reports chest pain; Denies orthopnea, palpitations, paroxysmal nocturnal dyspnea or racing heartbeat Respiratory/Chest Respiratory/Chest: Reports cough and dyspnea; Denies orthopnea, paroxysmal nocturnal dyspnea or sputum Gastrointestinal Gastrointestinal: Denies diarrhea, nausea or vomiting Genitourinary Genitourinary ED: Denies dysuria, hematuria or urinary frequency Musculoskeletal Musculoskeletal: Denies arthralgias or myalgias Integumentary Denies rash Neurologic Neurologic: Denies headache(s) or paresthesias Endocrine Endocrinology: Denies cold intolerance or heat intolerance EXAM Physical Exam Const Vital Signs: 11/18/24 20:34 11/18/24 20:55 11/18/24 20:59 Temperature 81 F L Temperature Source Temporal Pulse Rate 85 88 Respiratory Rate 30 H 30 H Respiratory Pattern Tachypnea Blood Pressure 72/56 L Blood Pressure Mean 61 Blood Pressure Source Pulse Ox 65 100 100 Oxygen Delivery Method Room Air Bi-pap Oxygen Flow Rate (L/min) Fraction of Inspired Oxygen (FIO2) 100 11/18/24 21:00 11/18/24 21:01 11/18/24 21:02 Temperature Temperature Source Pulse Rate 91 91 91 Respiratory Rate 32 H 29 H 30 H Respiratory Pattern Blood Pressure 54/45 L 54/45 L 64/43 L Blood Pressure Mean 49 48 50 Blood Pressure Source Pulse Ox 100 Oxygen Delivery Method Bi-pap Oxygen Flow Rate (L/min) Fraction of Inspired Oxygen (FIO2) 11/18/24 21:04 11/18/24 21:06 11/18/24 21:06 Temperature Temperature Source Pulse Rate 88 81 Respiratory Rate 32 H 24 H Respiratory Pattern Tachypnea Blood Pressure 64/43 L Blood Pressure Mean 50 Blood Pressure Source Pulse Ox 100 100 Oxygen Delivery Method Bi-pap Bi-pap Oxygen Flow Rate (L/min) Fraction of Inspired Oxygen (FIO2) 11/18/24 21:10 11/18/24 21:10 11/18/24 21:11 Temperature Temperature Source Pulse Rate 75 74 Respiratory Rate 27 H 30 H Respiratory Pattern Blood Pressure 69/30 L 63/21 L 69/30 L Blood Pressure Mean 40 36 43 Blood Pressure Source Pulse Ox 100 Oxygen Delivery Method Bi-pap Oxygen Flow Rate (L/min) Fraction of Inspired Oxygen (FIO2) 11/18/24 21:15 11/18/24 21:15 11/18/24 21:20 Temperature Temperature Source Pulse Rate 72 68 72 Respiratory Rate 32 H 27 H 25 H Respiratory Pattern Tachypnea Blood Pressure 70/34 L 73/32 L Blood Pressure Mean 46 45 Blood Pressure Source Pulse Ox 100 100 100 Oxygen Delivery Method Oxygen Flow Rate (L/min) Fraction of Inspired Oxygen (FIO2) 28 11/18/24 21:25 11/18/24 21:30 11/18/24 21:35 Temperature 93.9 F L 94.2 F L Temperature Source Core Core Pulse Rate 79 93 87 Respiratory Rate 21 H 19 H 25 H Respiratory Pattern Blood Pressure 90/37 L 65/34 L 81/42 L Blood Pressure Mean 53 42 55 Blood Pressure Source Pulse Ox 98 100 100 Oxygen Delivery Method Oxygen Flow Rate (L/min) Fraction of Inspired Oxygen (FIO2) 11/18/24 21:36 11/18/24 21:40 11/18/24 21:45 Temperature 94.2 F L 94.4 F L Temperature Source Core Core Pulse Rate 87 85 Respiratory Rate 25 H 24 H Respiratory Pattern Blood Pressure 81/42 L 74/38 L 75/46 L Blood Pressure Mean 55 51 55 Blood Pressure Source Pulse Ox 100 100 Oxygen Delivery Method Bi-pap Oxygen Flow Rate (L/min) Fraction of Inspired Oxygen (FIO2) 11/18/24 21:50 11/18/24 21:55 11/18/24 22:00 Temperature 94.2 F L 94.2 F L 94.1 F L Temperature Source Core Core Core Pulse Rate 86 84 85 Respiratory Rate 24 H 24 H 25 H Respiratory Pattern Blood Pressure 76/50 L 72/31 L Blood Pressure Mean 59 39 Blood Pressure Source Pulse Ox 99 100 100 Oxygen Delivery Method Oxygen Flow Rate (L/min) Fraction of Inspired Oxygen (FIO2) 11/18/24 22:01 11/18/24 22:06 11/18/24 22:06 Temperature 94.1 F L 94.3 F L 94.1 F L Temperature Source Core Core Core Pulse Rate 96 80 85 Respiratory Rate 24 H 22 H 23 H Respiratory Pattern Blood Pressure 59/37 L 70/43 L 65/50 L Blood Pressure Mean 44 52 56 Blood Pressure Source Pulse Ox 100 100 Oxygen Delivery Method Nasal Cannula Oxygen Flow Rate (L/min) 2 Fraction of Inspired Oxygen (FIO2) 11/18/24 22:10 11/18/24 22:15 11/18/24 22:20 Temperature 94.1 F L 94.1 F L 94.2 F L Temperature Source Core Core Core Pulse Rate 81 80 Respiratory Rate 22 H 23 H Respiratory Pattern Blood Pressure 70/58 L 66/38 L 65/46 L Blood Pressure Mean 64 48 54 Blood Pressure Source Pulse Ox 100 100 Oxygen Delivery Method Oxygen Flow Rate (L/min) Fraction of Inspired Oxygen (FIO2) 11/18/24 22:21 11/18/24 22:25 11/18/24 22:26 Temperature 94.2 F L 94.3 F L Temperature Source Core Core Pulse Rate 65 80 Respiratory Rate 22 H Respiratory Pattern Blood Pressure 65/46 L 70/43 L 70/43 L Blood Pressure Mean 52 52 52 Blood Pressure Source Monitor Pulse Ox 100 100 Oxygen Delivery Method Nasal Cannula Oxygen Flow Rate (L/min) 2 Fraction of Inspired Oxygen (FIO2) 11/18/24 22:30 11/18/24 22:30 11/18/24 22:35 Temperature 94.3 F L 94.3 F L 94.3 F L Temperature Source Core Core Core Pulse Rate 88 86 Respiratory Rate 22 H 21 H Respiratory Pattern Blood Pressure 79/48 L 68/43 L 73/44 L Blood Pressure Mean 58 51 54 Blood Pressure Source Pulse Ox 100 100 Oxygen Delivery Method Nasal Cannula Oxygen Flow Rate (L/min) 2 Fraction of Inspired Oxygen (FIO2) 11/18/24 22:37 11/18/24 22:40 11/18/24 22:45 Temperature 94.3 F L 94.4 F L Temperature Source Core Core Pulse Rate 95 88 90 Respiratory Rate 22 H 22 H Respiratory Pattern Blood Pressure 73/44 L 79/48 L 82/54 L Blood Pressure Mean 53 58 63 Blood Pressure Source Monitor Pulse Ox 100 100 Oxygen Delivery Method Nasal Cannula Oxygen Flow Rate (L/min) 2 Fraction of Inspired Oxygen (FIO2) 11/18/24 22:45 11/18/24 22:50 11/18/24 23:00 Temperature 94.4 F L 94.4 F L 94.3 F L Temperature Source Core Core Core Pulse Rate 90 95 88 Respiratory Rate 19 H 18 18 Respiratory Pattern Blood Pressure 82/54 L 72/25 L 87/40 L Blood Pressure Mean 64 39 55 Blood Pressure Source Pulse Ox 100 97 Oxygen Delivery Method Nasal Cannula Room Air Oxygen Flow Rate (L/min) 2 Fraction of Inspired Oxygen (FIO2) 11/18/24 23:05 11/18/24 23:06 11/18/24 23:10 Temperature 94.3 F L 94.2 F L Temperature Source Core Core Pulse Rate 89 86 145 H Respiratory Rate 23 H 19 H Respiratory Pattern Blood Pressure 87/40 L 87/40 L 104/47 L Blood Pressure Mean 55 55 62 Blood Pressure Source Pulse Ox 95 97 Oxygen Delivery Method Room Air Room Air Oxygen Flow Rate (L/min) Fraction of Inspired Oxygen (FIO2) 11/18/24 23:15 11/18/24 23:17 11/18/24 23:20 Temperature 94.1 F L 94.2 F L Temperature Source Core Core Pulse Rate 91 91 93 Respiratory Rate 15 18 18 Respiratory Pattern Blood Pressure 106/59 L 106/59 L 116/46 L Blood Pressure Mean 66 74 65 Blood Pressure Source Pulse Ox 98 95 98 Oxygen Delivery Method Room Air Room Air Oxygen Flow Rate (L/min) Fraction of Inspired Oxygen (FIO2) 11/18/24 23:25 11/18/24 23:30 11/18/24 23:30 Temperature 94.2 F L 94.3 F L Temperature Source Core Core Pulse Rate 96 99 95 Respiratory Rate 17 19 H 18 Respiratory Pattern Blood Pressure 118/62 124/72 H 117/64 Blood Pressure Mean 74 89 80 Blood Pressure Source Pulse Ox 98 97 97 Oxygen Delivery Method Room Air Room Air Oxygen Flow Rate (L/min) Fraction of Inspired Oxygen (FIO2) 11/18/24 23:35 11/18/24 23:45 11/18/24 23:55 Temperature 94.4 F L 94.6 F L Temperature Source Core Core Pulse Rate 97 99 100 Respiratory Rate 16 16 Respiratory Pattern Blood Pressure 131/62 H 124/72 H 124/72 H Blood Pressure Mean 79 88 89 Blood Pressure Source Monitor Pulse Ox 97 97 Oxygen Delivery Method Room Air Oxygen Flow Rate (L/min) Fraction of Inspired Oxygen (FIO2) Positive well nourished and well developed Constitutional Narrative: Patient is cyanotic, diaphoretic and respiratory distress and blood pressure is low. Patient had a temperature of 81 degrees. Initial sat was 65%. She was placed on a nonrebreather mask. General Appearance ED: well developed, cyanotic and diaphoretic; Negative for NAD or pallor HEENT Reports dry mucous membranes HEENT Narrative: Patient has poor dentition. She has cyanosis of her ears. Nares patent. Posterior pharynx is normal. Mouth ED: Yes dry mucous membranes Mouth: dry mucous membranes Eyes PERRL and EOMs intact bilaterally General Eye ED: Negative for pale conjunctiva or scleral icterus Neck no lymphadenopathy, supple and no JVD Chest Wall Negative for inspection of chest normal or palpation of chest normal Resp No normal respiratory effort and No clear to auscultation bilaterally Resp Narrative: Patient has used accessory muscles and retractions with diminished breath sounds and high-pitched wheezing. Cardio regular rate, regular rhythm, S1 normal heart sound, S2 normal heart sound and no murmurs GI normal to inspection, nondistended, normoactive bowel sounds, non-tender, non- distended and no masses; Negative for hepatosplenomegaly GI Narrative: There is no palpable pulsatile mass. Back/Spine no CVA tenderness Extremity Extremity Narrative: Patient has acral cyanosis noted upper and lower extremities. She is mottled. Neuro No oriented x3, CN's II-XII intact bilaterally and no sensory deficits noted Sensorium / Orientation: Negative for alert Psych Mood & Affect: depressed Skin Skin Narrative: Mottled and cyanosis General Skin Exam: Negative for pallor MDM MDM MDM Narrative Medical decision making narrative: Differential diagnosis is pneumonia, pulmonary embolus, pneumothorax, congestive heart failure, COPD exacerbation need to consider cardiac ischemia. Workup included EKG, chest x-ray appropriate blood work, blood culture since she is hypothermic. ABG was obtained. ABG reveals a metabolic acidosis with no significant AA gradient. Lab Data Attestation: I reviewed the patient's lab results. Lab results narrative: White count elevated 318.9 thousand with no shift. Competence metabolic panel shows a high anion gap acidosis. Lactate elevated 3.0. Blood sugar is elevated 316. Will add a beta hydroxybutyrate. AST and ALT are slightly elevated. Patient in all likely has polycythemia vera secondary due to her smoking with an H&H of 18.9 and 55.1. Urinalysis is unremarkable. Labs: Laboratory Results - last 24 hr 11/18/24 11/18/24 11/18/24 21:00 21:08 21:42 WBC 13.9 H RBC 6.01 H Hgb 18.9 H* Hct 55.1 H MCV 91.7 MCH 31.4 MCHC 34.3 RDW Std Deviation 44.1 H RDW Coeff of Panchito 13.0 Plt Count 390 MPV 10.6 Immature Gran % (Auto) 0.800 Neut % (Auto) 55.3 Lymph % (Auto) 35.6 Barry % (Auto) 4.5 Eos % (Auto) 2.9 Baso % (Auto) 0.9 Absolute Neuts (auto) 7.7 Absolute Lymphs (auto) 4.95 H Nucleated RBC % 0 PT 15.7 H INR 1.2 APTT 32.1 Sodium 134 Potassium 4.0 Chloride 98 Carbon Dioxide 17.7 L Anion Gap 18 H BUN 17 Creatinine 1.36 H Estim Creat Clear Calc 39.22 L Est GFR (MDRD) Non-Af 44 L BUN/Creatinine Ratio 12.4 Glucose 316 H Lactic Acid 3.0 H* Calcium 10.0 Total Bilirubin 0.53 AST 64 H ALT 38 H Alkaline Phosphatase 115 H Troponin T High Sens 11 Total Protein 6.8 Albumin 3.9 Globulin 2.9 Albumin/Globulin Ratio 1.3 b-Hydroxybutyric mmol/L 0.2 TSH 16.900 H Urine Color Yellow Urine Clarity Clear Urine pH 6.0 Ur Specific [place] 1.015 Urine Protein 100 H Urine Glucose (UA) Normal Urine Ketones Negative Urine Occult Blood 10 H Urine Nitrite Negative Urine Bilirubin 6 H Urine Urobilinogen Normal Ur Leukocyte Esterase 25 H Urine RBC 0-5 SEEN Urine WBC 0-5 SEEN Ur Squamous Epith Cells 0-5 SEEN Urine Bacteria 0 SEEN Urine Mucus 0 SEEN ABG Data ABG results: ABG 11/18/24 21:07 Specimen Type ART Sample Site L Radial pH 7.30 L Bicarbonate Actual 13.1 L Total CO2 14 Base Excess -13 L O2 Saturation 100 H O2 % 6.0 ABG pCO2 26.6 L ABG pO2 504 H* David Test N/A O2 Delivery Device Cannula Vent Mode Not entered Crit Call To/Read Back Yes Blood Gas Notified Whom Dr Marques Blood Gas Notified Time 21:09:37 Radiography Chest X-Ray - ED: 1 View (Chest x-ray status post left subclavian line reveals no pneumothorax. It is unchanged from prior. Subclavian line is at above the right atrium.), Read by ED Physician, Normal, Heart, Mediastinum, No Acute Disease and Chronic Changes (There is no infiltrate, effusion or pneumothorax. Osseous structures are unremarkable.) Diagnostic Testing: Clinical Impression(s) from Imaging Studies Chest X-Ray 11/18/24 20:50 IMPRESSION: No acute cardiopulmonary disease. Reading Location: [facility] Chest X-Ray 11/18/24 22:34 IMPRESSION: Left subclavian central venous catheter with tip at the lower SVC. Unchanged lung aeration. No pneumothorax or sizable pleural effusion. Reading Location: [facility] EKG Initial EKG: Attestation: I personally reviewed and interpreted this EKG as follows: Interpretation: Sinus Rhythm (Rate is 94. There are premature atrial beats noted. Filer to the left. Patient has an RR prime in V1. NV interval is 160 ms. QS duration 96 ms. QT duration is 98 ms. There is motion artifact noted.) Management Discussion w/another healthcare provider: Hospitalist (Spoke with Dr. Romeo Vizcaino. He requested a CT of the abdomen since the cause of her shock is unknown. Will add on a cortisol level prior to administration of Solu-Medrol. Plan is admit to ICU) Treatment and Re-Evaluation :: I was informed by nursing staff patient remains hypotensive after 3 L of normal saline. Peripheral Levophed was started and will change to central line once established. Patient is in critical condition verbal consent was obtained. Uncertain whether she truly comprehends and this was an implied consent. Patient was prepped draped sterile manner for right IJ right subclavian. The right IJ was not attempted because the vein was over the carotid artery and she had carotid endarterectomy performed on that side. 3 attempts were made at cannulating the right subclavian vein. There was no flash of blood or air. Patient was prepped for a left subclavian and left internal jugular. The left internal jugular was small. Did not attempt. The left subclavian vein was succ essfully cannulated on first attempt weigh-in. Using Seldinger technique 7.5 Cymro triple-lumen was placed. Blood was aspirated from all 3 ports. Will convert Levophed to the central line. Will obtain chest x-ray to rule out pneumothorax and determine position of subclavian. Comments:: I was made aware that nurse indicated sepsis indicators were noted. At this time I do not know if patient has sepsis or not. Will obtain CTA to evaluate for pulmonary embolus at this time. 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 Subclavian was placed because patient has undifferentiated shock. She is presently on Levophed. She is also hypothermic.) Discharge Plan Dx/Rx/DC Orders Clinical Impression: Shock circulatory, COPD with acute exacerbation, Acute bronchospasm, Acidosis, lactic, Type 2 diabetes mellitus with hyperglycemia, Leukocytosis, Acquired polycythemia vera, Peripheral arterial disease, Fatty liver disease, nonalcoholic, Hypothermia, Hypothyroidism Disposition Disposition: [facility]
[2024-11-18 21:56] LABS: Hematocrit 55.1 % (37-47); Immature Granulocytes Count 0.110 X10^3/uL (0.0-0.0); Mean Corp Hgb Conc 34.3 g/dL (32-36); Mean Corpuscular Volume 91.7 fL (81-99); Mean Platelet Vol. 10.6 fl (6.2-12.0); NRBC Flagged by Analyzer 0 % (0-5); Platelet Count 390 K/mm3 (150-450); RBC Distribution Width CV 13.0 % (11.6-14.6); RBC Distribution Width SD 44.1 fl (35.1-43.9); Red Blood Count 6.01 M/mm3 (4.2-5.4); White Blood Count 13.9 K/mm3 (4.4-11.0)
[2024-11-18 22:03] LABS: AST(SGOT) 64 U/L (<=31); Alanine Aminotransfer ALT/SGPT 38 U/L (<=34); Albumin, Serum 3.9 g/dL (3.4-4.8); Alkaline Phosphatase 115 U/L (35-104); Anion Gap 18 (5-15); BUN 17 mg/dL (4-19); BUN/Creat Ratio 12.4 RATIO (10-20); Calcium,Total 10.0 mg/dL (7.6-11.0); Carbon Dioxide 17.7 mmol/L (21.0-32.0); Chloride 98 mmol/L (98-108); Estimated Creatinine Clearance 39.22 ml/min (50-250); Globulin 2.9 g/dL (2.2-4.2); Glucose 316 mg/dL (70-99); Potassium 4.0 mmol/L (3.3-5.1); Troponin T High Sensitivity 11 ng/L (<=14)
[2024-11-18 22:05] LABS: Mucous, Urine 0 SEEN /hpf (<or=2+)
[2024-11-18 22:15] LABS: Hemoglobin 18.9 g/dL (12.0-15.0)
[2024-11-18] MEDS: Norepinephrine 8 MG in 0.9% Normal Saline (250mL Bag) 242 ML 9.4 MG CONT INF (22:21)
[2024-11-18 22:27] LABS: Color, Urine Yellow (Yellow); Glucose, Dipstick Normal (Normal); Ketone-Dipstick Negative (Negative); Leukocyte Esterase-Dipstick 25 /ul (Negative); Nitrite-Dipstick Negative (Negative); Occult Blood-Urine 10 /ul (Negative); Protein-Dipstick 100 mg/dl (Negative); Specific Gravity, Urine 1.015 (1.002-1.030)
--- NOTE | 2024-11-18 22:28 | CPS ---
[2106] x3 Albuterol given to pt. in ER
--- NOTE | 2024-11-18 22:34 | RAD_ITS ---
PROCEDURE: CHEST 1 VIEW (PORTABLE) 11/18/2024 REASON FOR EXAM: ON AFTER LINE PLACED TECHNIQUE: Frontal view of the chest. COMPARISON: Earlier same day 11/18/2024. FINDINGS: Left subclavian approach central venous catheter, tip at the lower SVC/left brachiocephalic junction. Clear lungs and pleura. No pneumothorax or sizable pleural effusion. Normal-sized cardiac silhouette. No significant vascular congestion. No significant osseous abnormality appreciated. RAD/Chest 1 View (Portable) IMPRESSION: Left subclavian central venous catheter with tip at the lower SVC. Unchanged lung aeration. No pneumothorax or sizable pleural effusion. Reading Location: [id number]
--- NOTE | 2024-11-18 22:41 | CT_ITS ---
PROCEDURE: CTA CHEST W/WO CONTRAST 11/18/2024 REASON FOR EXAM: HYPOXIA, UNDIFFERENTIATED SHOCK TECHNIQUE: Procedure Code: [id number] Modality: CT Procedure: CTA CHEST W/WO CONTRAST Multiplanar Sagittal and Coronal images were obtained. CONTRAST: VOLUME: mL One or more dose reduction techniques were used (e.g., Automated exposure control, adjustment of the mA and/or kV according to patient size, use of iterative reconstruction technique). COMPARISON: Chest radiograph dated earlier on the same day. FINDINGS: No filling defect suggestive of a pulmonary embolism is identified to the secondary branches of the pulmonary arteries. Mild chronic interstitial changes including peripheral septal wall thickening, as well as mild centrilobular and paraseptal emphysematous changes which are more peripherally oriented. The heart is normal in size. There appear to be enlarged paratracheal lymph nodes. Soft tissue thickening in the bilateral hilar regions may represent hilar lymphadenopathy or peribronchial infiltrates. No acute fracture. Moderate thoracic spondylosis. Mild dextro convex thoracic scoliosis. CT/CTA Chest W/WO Contrast IMPRESSION: No CT evidence of a pulmonary embolism. Mild chronic fibroemphysematous pulmonary changes, as described above. Mediastinal lymphadenopathy. Soft tissue thickening in the bilateral hilar regions may represent hilar lymph adenopathy or peribronchial infiltrates. Please correlate clinically for bronchitis. Moderate thoracic spondylosis with mild dextro convex scoliosis. Reading Location: [id number]
[2024-11-18 22:43] LABS: Urine Bilirubin Dipstick 6 mg/dL (Negative)
[2024-11-18 22:46] LABS: Red Blood Cells-Urine 0-5 SEEN /hpf (0-5); Squamous Epithelial Cells - UA 0-5 SEEN /hpf (5-10)
[2024-11-18 23:29] LABS: BETA-HYDROXYBUTYRATE 0.2 mmol/L (0.0-0.3)
[2024-11-19] VITALS (51 sets, daily range): BP systolic 90–145; BP diastolic 39–85; PULSE 72–105; RESP 16–30; TEMP 34.9–36.9; O2SAT 94–100; BMI 30.9
--- NOTE | 2024-11-19 00:03 | PCM.HP.STD ---
[facility] - General General Date of Admission: 11/19/24 Date of Service: 11/19/24 Chief Complaint: SOB, Wheezing and Diaphoresis. HPI Narrative NORMAN PARSON, is a 64 F with a past medical history of essential hypertension; on lisinopril, hyperlipidemia; on atorvastatin, obesity (class I); with BMI of 31.2 this admission, NAFLD, ongoing tobacco abuse; with COPD on fluticasone inhalation daily, DM-2; of unknown control on metformin daily, history of bilateral carotid artery stenosis; s/p Right CEA at [facility] (2012), PAD, history of calcium score greater than [address] scan to screen for lung CA (01/2024) with subsequent unremarkable LHC and LVEF ~71% (2022) previously evaluated by Dr. Arias of [facility], history of septic arthritis (10/2022), schizophrenia; on thiothixene twice daily, buspirone 3 times daily, bupropion twice daily plus imipramine nightly, chronic insomnia; on zolpidem nightly, history of appendectomy, history of rectal polypectomy GERD; on pantoprazole and OA; on ibuprofen 3 times daily as needed who presents to [facility] ER complaining of shortness of breath, wheezing and diaphoresis. Ms. Parson presented to the ER in [place] respiratory distress with shortness of breath, wheezing and diaphoresis after being transported by EMS for reported chest pain. Though history was limited she denied chest pain but she did admit to nonproductive cough and was noted to be wheezing. In the ER she was initially diagnosed with AE COPD with clinical evidence of Acute Respiratory Failure requiring BiPAP compounded by Undifferentiated Shock with Severe Hypotension of 72/25 mmHg, Severe Hypothermia of 94.4 ?F and Lactic Acidosis of 3 mmol/L both present on admission with Left subclavian CVC emergently placed in ER to start norepinephrine drip in addition to Leukocytosis of 13.9 K and incidentally noted Polycythemia with hemoglobin of 18.9 g/dL present on admission (suspected to be due to combination of chronic tobacco abuse and DENNIS) all exacerbated by elevated TSH of 16.9 consistent with newly diagnosed Hypothyroidism with a corresponding CXR that revealed no acute cardiopulmonary disease followed by CTA of chest with IV contrast that showed no CT evidence of PE, mild chronic fibro-emphysematous pulmonary changes with mediastinal lymphadenopathy and soft tissue thickening in the bilateral hilar regions which may represent lymphadenopathy or peribronchial infiltrates with recommendation to clinically correlate for Bronchitis with moderate thoracic spondylosis with mild dextroconvex scoliosis. CT scan of the abdomen pelvis was recommended and is still pending at this time in addition to IV methylprednisolone to help potentially clarify etiology of shock. She was then admitted to the ICU for ongoing care for stay that is expected to extend beyond 2 midnights. [facility] Medical History Nicotine use disorder Septic arthritis Elevated coronary artery calcium score Neck pain Bilateral carotid artery stenosis Snoring Peripheral arterial disease Fatty liver disease, nonalcoholic Major depressive disorder, recurrent episode Bradycardia Palpitations SOB (shortness of breath) Diabetic acetonemia COPD (chronic obstructive pulmonary disease) Hyperlipidemia Home Medications ?Medication ?Instructions ?Recorded ?Last Taken ?Type atorvastatin 20 mg tablet 20 mg PO QHS 12/22/17 Unknown History lisinopril 5 mg tablet 5 mg PO DAILY 12/22/17 Unknown History metformin 500 mg tablet 500 mg PO DAILY 12/22/17 Unknown History aspirin 81 mg tablet,delayed 81 mg PO QDAY 01/14/24 Unknown History release (Adult Aspirin Regimen) bupropion HCl 150 mg tablet,12 hr 150 mg PO BID 01/14/24 Unknown History sustained-release (Wellbutrin SR) buspirone 5 mg tablet 5 mg PO TID 01/14/24 Unknown History cyclobenzaprine 5 mg tablet 5 mg PO TID PRN 01/14/24 Unknown History fluticasone fur. 100 mcg-umeclid 1 inh inhalation QDAY 01/14/24 Unknown History 62.5 mcg-vilant 25 mcg inhalat.powder (Trelegy Ellipta) ibuprofen 800 mg tablet 800 mg PO Q8H PRN 01/14/24 Unknown History imipramine HCl 50 mg tablet 150 mg PO QHS 01/14/24 Unknown History ondansetron HCl 4 mg tablet 4 mg PO Q8H PRN 01/14/24 Unknown History thiothixene 2 mg capsule 2 mg PO BID 01/14/24 Unknown History zolpidem 10 mg tablet (Ambien) 10 mg PO QHS PRN sleep 01/14/24 Unknown History melatonin 5 mg capsule mg PO PRN 01/21/24 Unknown History pantoprazole 40 mg tablet,delayed 40 mg PO DAILY #90 tabs 03/26/24 Unknown Rx release Allergy/AdvReac Type Severity Reaction Status Date / Time simvastatin Allergy Other Verified 11/18/24 21:07 Family History Mother Heart disease Father Diabetes Brother Parkinson's disease Surgical History History of arthroscopy of knee History of colonoscopy History of rectal polypectomy History of cardiac catheterization H/O carotid endarterectomy History of appendectomy Social History household members: children Smoking Status: Current every day smoker tobacco type: cigarettes alcohol intake: never substance use type: does not use caffeine: Yes ROS ROS Narrative 4 view systems was not possible due to patient being in respiratory distress on BiPAP. Vital Signs Vital Signs Vital Signs: 11/18/24 20:34 11/18/24 20:55 11/18/24 20:59 Temperature 81 F L Temperature Source Temporal Pulse Rate 85 88 Respiratory Rate 30 H 30 H Respiratory Pattern Tachypnea Blood Pressure 72/56 L Blood Pressure Mean 61 Blood Pressure Source Pulse Ox 65 100 100 Oxygen Delivery Method Room Air Bi-pap Oxygen Flow Rate (L/min) Fraction of Inspired Oxygen (FIO2) 100 11/18/24 21:00 11/18/24 21:01 11/18/24 21:02 Temperature Temperature Source Pulse Rate 91 91 91 Respiratory Rate 32 H 29 H 30 H Respiratory Pattern Blood Pressure 54/45 L 54/45 L 64/43 L Blood Pressure Mean 49 48 50 Blood Pressure Source Pulse Ox 100 Oxygen Delivery Method Bi-pap Oxygen Flow Rate (L/min) Fraction of Inspired Oxygen (FIO2) 11/18/24 21:04 11/18/24 21:06 11/18/24 21:06 Temperature Temperature Source Pulse Rate 88 81 Respiratory Rate 32 H 24 H Respiratory Pattern Tachypnea Blood Pressure 64/43 L Blood Pressure Mean 50 Blood Pressure Source Pulse Ox 100 100 Oxygen Delivery Method Bi-pap Bi-pap Oxygen Flow Rate (L/min) Fraction of Inspired Oxygen (FIO2) 11/18/24 21:10 11/18/24 21:10 11/18/24 21:11 Temperature Temperature Source Pulse Rate 75 74 Respiratory Rate 27 H 30 H Respiratory Pattern Blood Pressure 69/30 L 63/21 L 69/30 L Blood Pressure Mean 40 36 43 Blood Pressure Source Pulse Ox 100 Oxygen Delivery Method Bi-pap Oxygen Flow Rate (L/min) Fraction of Inspired Oxygen (FIO2) 11/18/24 21:15 11/18/24 21:15 11/18/24 21:20 Temperature Temperature Source Pulse Rate 72 68 72 Respiratory Rate 32 H 27 H 25 H Respiratory Pattern Tachypnea Blood Pressure 70/34 L 73/32 L Blood Pressure Mean 46 45 Blood Pressure Source Pulse Ox 100 100 100 Oxygen Delivery Method Oxygen Flow Rate (L/min) Fraction of Inspired Oxygen (FIO2) 28 11/18/24 21:25 11/18/24 21:30 11/18/24 21:35 Temperature 93.9 F L 94.2 F L Temperature Source Core Core Pulse Rate 79 93 87 Respiratory Rate 21 H 19 H 25 H Respiratory Pattern Blood Pressure 90/37 L 65/34 L 81/42 L Blood Pressure Mean 53 42 55 Blood Pressure Source Pulse Ox 98 100 100 Oxygen Delivery Method Oxygen Flow Rate (L/min) Fraction of Inspired Oxygen (FIO2) 11/18/24 21:36 11/18/24 21:40 11/18/24 21:45 Temperature 94.2 F L 94.4 F L Temperature Source Core Core Pulse Rate 87 85 Respiratory Rate 25 H 24 H Respiratory Pattern Blood Pressure 81/42 L 74/38 L 75/46 L Blood Pressure Mean 55 51 55 Blood Pressure Source Pulse Ox 100 100 Oxygen Delivery Method Bi-pap Oxygen Flow Rate (L/min) Fraction of Inspired Oxygen (FIO2) 11/18/24 21:50 11/18/24 21:55 11/18/24 22:00 Temperature 94.2 F L 94.2 F L 94.1 F L Temperature Source Core Core Core Pulse Rate 86 84 85 Respiratory Rate 24 H 24 H 25 H Respiratory Pattern Blood Pressure 76/50 L 72/31 L Blood Pressure Mean 59 39 Blood Pressure Source Pulse Ox 99 100 100 Oxygen Delivery Method Oxygen Flow Rate (L/min) Fraction of Inspired Oxygen (FIO2) 11/18/24 22:01 11/18/24 22:06 11/18/24 22:06 Temperature 94.1 F L 94.3 F L 94.1 F L Temperature Source Core Core Core Pulse Rate 96 80 85 Respiratory Rate 24 H 22 H 23 H Respiratory Pattern Blood Pressure 59/37 L 70/43 L 65/50 L Blood Pressure Mean 44 52 56 Blood Pressure Source Pulse Ox 100 100 Oxygen Delivery Method Nasal Cannula Oxygen Flow Rate (L/min) 2 Fraction of Inspired Oxygen (FIO2) 11/18/24 22:10 11/18/24 22:15 11/18/24 22:20 Temperature 94.1 F L 94.1 F L 94.2 F L Temperature Source Core Core Core Pulse Rate 81 80 Respiratory Rate 22 H 23 H Respiratory Pattern Blood Pressure 70/58 L 66/38 L 65/46 L Blood Pressure Mean 64 48 54 Blood Pressure Source Pulse Ox 100 100 Oxygen Delivery Method Oxygen Flow Rate (L/min) Fraction of Inspired Oxygen (FIO2) 11/18/24 22:21 11/18/24 22:25 11/18/24 22:26 Temperature 94.2 F L 94.3 F L Temperature Source Core Core Pulse Rate 65 80 Respiratory Rate 22 H Respiratory Pattern Blood Pressure 65/46 L 70/43 L 70/43 L Blood Pressure Mean 52 52 52 Blood Pressure Source Monitor Pulse Ox 100 100 Oxygen Delivery Method Nasal Cannula Oxygen Flow Rate (L/min) 2 Fraction of Inspired Oxygen (FIO2) 11/18/24 22:30 11/18/24 22:30 11/18/24 22:35 Temperature 94.3 F L 94.3 F L 94.3 F L Temperature Source Core Core Core Pulse Rate 88 86 Respiratory Rate 22 H 21 H Respiratory Pattern Blood Pressure 79/48 L 68/43 L 73/44 L Blood Pressure Mean 58 51 54 Blood Pressure Source Pulse Ox 100 100 Oxygen Delivery Method Nasal Cannula Oxygen Flow Rate (L/min) 2 Fraction of Inspired Oxygen (FIO2) 11/18/24 22:37 11/18/24 22:40 11/18/24 22:45 Temperature 94.3 F L 94.4 F L Temperature Source Core Core Pulse Rate 95 88 90 Respiratory Rate 22 H 22 H Respiratory Pattern Blood Pressure 73/44 L 79/48 L 82/54 L Blood Pressure Mean 53 58 63 Blood Pressure Source Monitor Pulse Ox 100 100 Oxygen Delivery Method Nasal Cannula Oxygen Flow Rate (L/min) 2 Fraction of Inspired Oxygen (FIO2) 11/18/24 22:45 11/18/24 22:50 11/18/24 23:00 Temperature 94.4 F L 94.4 F L 94.3 F L Temperature Source Core Core Core Pulse Rate 90 95 88 Respiratory Rate 19 H 18 18 Respiratory Pattern Blood Pressure 82/54 L 72/25 L 87/40 L Blood Pressure Mean 64 39 55 Blood Pressure Source Pulse Ox 100 97 Oxygen Delivery Method Nasal Cannula Room Air Oxygen Flow Rate (L/min) 2 Fraction of Inspired Oxygen (FIO2) 11/18/24 23:05 11/18/24 23:06 11/18/24 23:10 Temperature 94.3 F L 94.2 F L Temperature Source Core Core Pulse Rate 89 86 145 H Respiratory Rate 23 H 19 H Respiratory Pattern Blood Pressure 87/40 L 87/40 L 104/47 L Blood Pressure Mean 55 55 62 Blood Pressure Source Pulse Ox 95 97 Oxygen Delivery Method Room Air Room Air Oxygen Flow Rate (L/min) Fraction of Inspired Oxygen (FIO2) 11/18/24 23:15 11/18/24 23:17 11/18/24 23:20 Temperature 94.1 F L 94.2 F L Temperature Source Core Core Pulse Rate 91 91 93 Respiratory Rate 15 18 18 Respiratory Pattern Blood Pressure 106/59 L 106/59 L 116/46 L Blood Pressure Mean 66 74 65 Blood Pressure Source Pulse Ox 98 95 98 Oxygen Delivery Method Room Air Room Air Oxygen Flow Rate (L/min) Fraction of Inspired Oxygen (FIO2) 11/18/24 23:25 11/18/24 23:30 11/18/24 23:30 Temperature 94.2 F L 94.3 F L Temperature Source Core Core Pulse Rate 96 99 95 Respiratory Rate 17 19 H 18 Respiratory Pattern Blood Pressure 118/62 124/72 H 117/64 Blood Pressure Mean 74 89 80 Blood Pressure Source Pulse Ox 98 97 97 Oxygen Delivery Method Room Air Room Air Oxygen Flow Rate (L/min) Fraction of Inspired Oxygen (FIO2) 11/18/24 23:35 11/18/24 23:45 11/18/24 23:55 Temperature 94.4 F L 94.6 F L Temperature Source Core Core Pulse Rate 97 99 100 Respiratory Rate 16 16 Respiratory Pattern Blood Pressure 131/62 H 124/72 H 124/72 H Blood Pressure Mean 79 88 89 Blood Pressure Source Monitor Pulse Ox 97 97 Oxygen Delivery Method Room Air Oxygen Flow Rate (L/min) Fraction of Inspired Oxygen (FIO2) Weight Weight: 165 lb 5.547 oz Body Mass Index (BMI) 31.2 Results Medical Records Data Attestation: I reviewed the patient's medical records Lab / Micro Data Attestation: I reviewed the patient's lab results. 11/18/24 21:00 11/18/24 21:00 Labs: Laboratory Results - last 24 hr 11/18/24 21:00: WBC 13.9 H, RBC 6.01 H, Hgb 18.9 H*, Hct 55.1 H, MCV 91.7, MCH 31.4, MCHC 34.3, RDW Std Deviation 44.1 H, RDW Coeff of Panchito 13.0, Plt Count 390, MPV 10.6, Immature Gran % (Auto) 0.800, Neut % (Auto) 55.3, Lymph % (Auto) 35.6, Alfalfa % (Auto) 4.5, Eos % (Auto) 2.9, Baso % (Auto) 0.9, Absolute Neuts (auto) 7.7, Absolute Lymphs (auto) 4.95 H, Nucleated RBC % 0, PT 15.7 H, INR 1.2, APTT 32.1, Sodium 134, Potassium 4.0, Chloride 98, Carbon Dioxide 17.7 L, Anion Gap 18 H, BUN 17, Creatinine 1.36 H, Estim Creat Clear Calc 39.22 L, Est GFR (MDRD) Non-Af 44 L, BUN/Creatinine Ratio 12.4, Glucose 316 H, Calcium 10.0, Total Bilirubin 0.53, AST 64 H, ALT 38 H, Alkaline Phosphatase 115 H, Troponin T High Sens 11, Total Protein 6.8, Albumin 3.9, Globulin 2.9, Albumin/Globulin Ratio 1.3, b-Hydroxybutyric mmol/L 0.2, TSH 16.900 H 11/18/24 21:08: Lactic Acid 3.0 H* 11/18/24 21:42: Urine Color Yellow, Urine Clarity Clear, Urine pH 6.0, Ur Specific [place] 1.015, Urine Protein 100 H, Urine Glucose (UA) Normal, Urine Ketones Negative, Urine Occult Blood 10 H, Urine Nitrite Negative, Urine Bilirubin 6 H, Urine Urobilinogen Normal, Ur Leukocyte Esterase 25 H, Urine RBC 0-5 SEEN, Urine WBC 0-5 SEEN, Ur Squamous Epith Cells 0-5 SEEN, Urine Bacteria 0 SEEN, Urine Mucus 0 SEEN Micro: Microbiology 11/18/24 21:04 Mucosa - Nose SARS-CoV-2, Influenza & RSV (PCR) - Final ABG Data ABG results: ABG 11/18/24 21:07 Specimen Type ART Sample Site L Radial pH 7.30 L Bicarbonate Actual 13.1 L Total CO2 14 Base Excess -13 L O2 Saturation 100 H O2 % 6.0 ABG pCO2 26.6 L ABG pO2 504 H* David Test N/A O2 Delivery Device Cannula Vent Mode Not entered Crit Call To/Read Back Yes Blood Gas Notified Whom Dr Marques Blood Gas Notified Time 21:09:37 Imaging Radiology Impression Chest X-Ray 11/18/24 20:50 IMPRESSION: No acute cardiopulmonary disease. Reading Location: [id number] Chest X-Ray 11/18/24 22:34 IMPRESSION: Left subclavian central venous catheter with tip at the lower SVC. Unchanged lung aeration. No pneumothorax or sizable pleural effusion. Reading Location: [id number] [facility] Imaging Services [address] [place] [id number] CTA Chest W/WO Contrast MR#: [id number] Acct: [id number] Name: NORMAN PARSON Codi Rep #: [id number] : 1960 F 64 From: Juan Manuel Gleason MD PCP: CB Landaverde Status: REG ER Study: CTA Chest W/WO Contrast Date of Exam: 11/18/24 Exam# [id number] Ordering Dr: Ru Marques MD PROCEDURE: CTA CHEST W/WO CONTRAST 11/18/2024 REASON FOR EXAM: HYPOXIA, UNDIFFERENTIATED SHOCK TECHNIQUE: Procedure Code: [id number] Modality: CT Procedure: CTA CHEST W/WO CONTRAST Multiplanar Sagittal and Coronal images were obtained. CONTRAST: VOLUME: mL One or more dose reduction techniques were used (e.g., Automated exposure control, adjustment of the mA and/or kV according to patient size, use of iterative reconstruction technique). COMPARISON: Chest radiograph dated earlier on the same day. FINDINGS: No filling defect suggestive of a pulmonary embolism is identified to the secondary branches of the pulmonary arteries. Mild chronic interstitial changes including peripheral septal wall thickening, as well as mild centrilobular and paraseptal emphysematous changes which are more peripherally oriented. The heart is normal in size. There appear to be enlarged paratracheal lymph nodes. Soft tissue thickening in the bilateral hilar regions may represent hilar lymphadenopathy or peribronchial infiltrates. No acute fracture. Moderate thoracic spondylosis. Mild dextro convex thoracic scoliosis. CT/CTA Chest W/WO Contrast IMPRESSION: No CT evidence of a pulmonary embolism. Mild chronic fibroemphysematous pulmonary changes, as described above. Mediastinal lymphadenopathy. Soft tissue thickening in the bilateral hilar regions may represent hilar lymphadenopathy or peribronchial infiltrates. Please correlate clinically for bronchitis. Moderate thoracic spondylosis with mild dextro convex scoliosis. Reading Location: [id number] CC: CB Esparza; Dr. Ru Marques MD ~ Production Hand: Signed [facility] Imaging Services [address] [place] [address] Abdomen/Pelvis W IV Cont ONLY MR#: [id number] Acct: [id number] Name: NORMAN PARSON Rep #: [id number] : 1960 F 64 From: Juan Manuel Gleason MD PCP: CB Landaverde Status: ADM IN Study: Abdomen/Pelvis W IV Cont ONLY Date of Exam: 11/19/24 Exam# [id number] Ordering Dr: Ru Marques MD PROCEDURE: ABDOMEN/PELVIS W IV CONT ONLY 11/19/2024 REASON FOR EXAM: LEUKOCYTOSIS, SHOCK TECHNIQUE: Procedure Code: [id number] Modality: CT Procedure: ABDOMEN/PELVIS W IV CONT ONLY Coronal and Sagittal reconstruction series were provided. CONTRAST: VOLUME: mL One or more dose reduction techniques were used (e.g., Automated exposure control, adjustment of the mA and/or kV according to patient size, use of iterative reconstruction technique. FINDINGS: Abrupt narrowing of the proximal sigmoid colon with a short segment of wall thickening is noted (series 2, images 72 through 84), concerning for either focal colitis or a mucosal mass lesion. There is mild dilatation of the large and small bowel proximal to this focal narrowing, which could represent a low-grade partial small bowel obstruction. A large amount of stool is noted distal to this focal wall thickening within the distal sigmoid colon and rectum. There is also mild wall thickening of the duodenum with mild adjacent fat stranding, concerning for duodenitis. A Aguiar catheter is present within the urinary bladder, which contains contrast material from a previous radiological study. The liver, spleen, gallbladder, pancreas, adrenal glands, and kidneys appear unremarkable. The visualized lung bases are clear. Small hiatal hernia. Mild free fluid within the pelvis. Moderate atherosclerotic calcifications. Moderate to severe thoracolumbar spondylosis including a grade 1 anterolisthesis of L4 on L5. Mild scoliosis of the lumbar spine. CT/Abdomen/Pelvis W IV Cont ONLY IMPRESSION: 1. Abrupt narrowing of the proximal sigmoid colon with a short segment of wall thickening. This could represent focal colitis or a mucosal mass lesion. 2. Mild wall thickening of the duodenum with mild adjacent fat stranding, concerning for duodenitis. 3. Mild dilatation of the large and small bowel proximal to the focal narrowing in the proximal sigmoid colon, which could represent a low-grade partial small bowel obstruction. 4. Large amount of stool within the distal sigmoid colon and rectum. 5. Small hiatal hernia. 6. Moderate to severe thoracolumbar spondylosis with mild lumbar scoliosis. Reading Location: [id number] CC: CB Esparza; Dr. Ru Marques MD ~ Production Hand: Signed Assessment & Plan Assessment/Plan (1) COPD exacerbation: (2) Bronchitis: (3) Acute respiratory failure: QUALIFIERS: Respiratory failure complication: unspecified whether with hypoxia or hypercapnia Qualified Code(s): J96.00 - Acute respiratory failure, unspecified whether with hypoxia or hypercapnia (4) Shock circulatory: (5) Adrenal insufficiency: (6) Severe hypotension: (7) Hypothermia: QUALIFIERS: Encounter type: initial encounter Qualified Code(s): T68.XXXA - Hypothermia, initial encounter (8) Acidosis, lactic: (9) Acquired polycythemia vera: (10) Hypothyroidism: QUALIFIERS: Hypothyroidism type: unspecified Qualified Code(s): E03.9 - Hypothyroidism, unspecified (11) Obesity (BMI 30.0-34.9): (12) NAFLD (nonalcoholic fatty liver disease): (13) Focal active colitis: (14) Duodenitis: (15) Elevated d-dimer: PLAN: Plan 1. AE COPD with clinical evidence of Acute Respiratory Failure requiring BiPAP with CTA of chest with IV contrast that showed no CT evidence of PE, mild chronic fibro-emphysematous pulmonary changes with mediastinal lymphadenopathy and soft tissue thickening in the bilateral hilar regions which may represent lymphadenopathy or peribronchial infiltrates with recommendation to clinically correlate for Bronchitis in the setting of ongoing Tobacco Abuse - Admit to ICU. Start IV methylprednisolone plus cover with empiric IV piperacillin-tazobactam and IV azithromycin. Give pantoprazole 40 mg IV daily. Give ondansetron IV prn for nausea and vomiting. Tobacco Cessation will be strongly encouraged with Nicotine patch offered to control cravings. Finally, we will consult pulmonary/critical-care physician to see this patient on rounds in the a.m. for further recommendations without appreciated in advance. 2. Undifferentiated Shock with Severe Hypotension of 72/25 mmHg, Severe Hypothermia of 94.4 ?F, Lactic Acidosis of 3 mmol/L and Leukocytosis of 13.9 K all present on admission with Left subclavian CVC emergently placed in ER to start norepinephrine drip complicating #1 in the setting of chronic inhaled steroid use raising specter of possible adrenal Insufficiency - Give vigorous IV volume resuscitation and maintain norepinephrine drip to keep MAP > [address] RAD hugger to raise core temperature. Serialize lactate to follow trend. Serialize troponin. Check echocardiogram to evaluate LVEF and other potential structural abnormalities that may help explain her presentation. Check d-dimer. Cortisol level pending from ER check prior to steroid administration. Check CT scan of the abdomen and pelvis to hopefully identify potential source. 3. Polycythemia with hemoglobin of 18.9 g/dL present on admission (suspected to be due to combination of chronic tobacco abuse and DENNIS) compounding #1 & #2 - Screen for SHONDA-2 mutation. Check CBC daily to follow trend. 4. Elevated TSH of 16.9 consistent with newly diagnosed Hypothyroidism adding to the medical complexity of #1 - #3 - Start IV levothyroxine and recheck TSH in ~4-6 weeks. 5. Obesity (class I); with BMI of 31.2 this admission plus NAFLD adding to the burden of disease outlined from #1 - #4 - Weight loss will be recommended. This complicates her case and may hamper recovery. 6. DM-2; of unknown control on metformin daily - Keep NPO for now. Hold metformin until further notice with elevated lactate. FSBS q. 6 hours plus lowest-intensity SSI. Check HgbA1c to objectively evaluate quality of diabetic control. 7. Essential hypertension; on lisinopril - Hold scheduled antihypertensives in light of #2. 8. Hyperlipidemia; on atorvastatin - Resume statin when patient can tolerate oral intake. 9. History of bilateral carotid artery stenosis; s/p Right CEA at [facility] (2012) - Noted. 10. PAD - Stable. 11. History of septic arthritis (10/2022) - Noted with no complaints related to joint pain. 12. Schizophrenia and Depression; on thiothixene twice daily, buspirone 3 times daily, bupropion twice daily plus imipramine nightly - Hold oral agents at this time. 13. Chronic insomnia; on zolpidem nightly - Noted. 14. History of appendectomy - Noted. 15. History of rectal polypectomy - Noted for the sake of completeness. 16. GERD; on pantoprazole - Resume PPI IV as outlined in #1. 17. OA; on ibuprofen 3 times daily as needed - Stable. We will give ketorolac IV as needed for pain or fever. 18. DVT prophylaxis - Enoxaparin 40 mg sq daily. Total time: Approximately (but not less than) 75 minutes. Update: Patient was ordered a CT scan of the abdomen and pelvis with IV contrast just before leaving the ER that revealed abrupt narrowing of the proximal sigmoid colon with a short segment of wall thickening which could represent focal Colitis or mucosal mass lesion in addition to mild wall thickening of the duodenum with mild adjacent fat stranding concerning for Duodenitis in addition to mild dilatation of the large and small bowel proximal to the focal narrowing in the proximal sigmoid colon which could represent a low-grade partial small bowel obstruction with a large amount of stool within the distal sigmoid colon and rectum. In addition pelvis her D-dimer returned critically high at greater than 20; with CTA of chest with IV contrast negative for PE but now with LE Doppler pending in AM. She was already started on empiric IV piperacillin-tazobactam to cover potential gastrointestinal infections. Finally, we will consult both general surgery and gastroenterology to see this patient on rounds in the a.m. for further recommendations with help appreciated in advance. Charges/Coding Visit Charges Inpatient E&M: 60806 Init Hosp L3
[2024-11-19 00:09] LABS: Troponin T High Sens 2 HR 15 ng/L (<=14)
[2024-11-19 01:10] LABS: Reflex Lactate? Y
[2024-11-19 01:10] LABS: CORTISOL PM 35.80 ug/dL (2.68-10.50)
[2024-11-19 01:58] LABS: Troponin T High Sens 4 HR 22 ng/L (<=14)
--- NOTE | 2024-11-19 02:04 | ECHOCS_ITS ---
Reason For Study Reason For Study: OTHER Procedure This was a 2D Doppler, Color Flow transthoracic echocardiogram. The study was technically difficult. Contrast injection was performed. Exam performed portable in ICU/CCU. Left Ventricle Normal LV size. Mild concentric left ventricular hypertrophy. The left ventricular ejection fraction is 65 %. Stage 1 diastolic dysfunction. Right Ventricle Normal right ventricle. Atria Normal left atrium. The right atrium is not well visualized. Mitral Valve Normal mitral valve. Tricuspid Valve The tricuspid valve is not well visualized. Aortic Valve The aortic valve is not well visualized. Pulmonic Valve The pulmonic valve is not well visualized. Great Vessels The aortic root is not well visualized. Pericardium/Pleural No pericardial effusion. Medication Diluted definity 1ml given slow IV push to enhance endocardial definition. MMode/2D Measurements & Calculations LVIDd: 3.2 cm IVSd: 1.2 cm LVIDs: 2.0 cm LVPWd: 1.2 cm FS: 37.5 % Doppler Measurements & Calculations MV E max olga: 30.9 cm/sec Ao V2 max: 111.4 cm/sec LV V1 max: 116.3 cm/sec Ao max P.1 mmHg LV V1 max P.6 mmHg Ao V2 mean: 76.2 cm/sec LV V1 mean P.6 mmHg Ao mean P.7 mmHg LV V1 mean: 74.6 cm/sec Ao V2 VTI: 19.4 cm LV V1 VTI: 18.4 cm AV (velocity ratio): 0.95 PA V2 max: 95.5 cm/sec PA V2 mean: 69.2 cm/sec ECHO/Echo Complete W/ Contrast Interpretation Summary Technically difficult study with suboptimal images. Mild concentric left ventricular hypertrophy. The left ventricular ejection fraction is 65 %. Stage 1 diastolic dysfunction. Ordering Physician: Romeo Khan Referring Physician: QUINN SWANSON Performed By: Agnieszka Brenner RCS
[2024-11-19] MEDS: 0.9% Normal Saline (1000mL) 1,000 ML 200 ML IV (02:17)
[2024-11-19] MEDS: 0.9% Normal Saline (1000mL) 1,000 ML 15 ML IV (02:20)
[2024-11-19] MEDS: Pantoprazole Sodium 40 MG in 0.9% Normal Saline (100mL MB+) 100 ML 330 MG IV ×2 (02:51→20:30)
[2024-11-19] MEDS: Azithromycin 500 MG in 0.9% Normal Saline (250mL Bag) 250 ML 250 MG IV ×2 (02:51→20:31)
[2024-11-19] MEDS: Piperacil/Tazobactam 3.375 GM in 0.9% Normal Saline (50mL MB+) 50 ML IV ×3 (02:51→23:35)
[2024-11-19 03:21] LABS: Magnesium 2.6 mg/dL (1.5-2.2)
[2024-11-19 03:30] LABS: Free T3 2.4 pg/mL (2.18-3.98)
--- NOTE | 2024-11-19 03:46 | CT_ITS ---
PROCEDURE: CHEST WITHOUT CONTRAST 11/19/2024 REASON FOR EXAM: RIGHT CHEST HEMATOMA TECHNIQUE: Chest CT without contrast. Coronal and Sagittal reconstruction series were provided. One or more dose reduction techniques were used (e.g., Automated exposure control, adjustment of the mA and/or kV according to patient size, use of iterative reconstruction technique RADIATION DOSE SUMMARY: CTDlvol: 15.98 mGy DLP: 582 mGycm COMPARISON: CT scan on 11/18/2024. FINDINGS: Acute soft tissue hematoma is noted underlying the right pectoralis muscle in the interim measuring 3.9 x 8.4 x 9.1 cm in its largest anteroposterior, transverse and craniocaudal dimensions respectively. Secondary mild displacement and edema of the right pectoralis muscle. Mild surrounding soft tissue edema. Unchanged mild bilateral basilar pleural thickening/effusions. Unchanged minimal bilateral basilar atelectatic pulmonary changes. Unchanged emphysema/chronic interstitial thickening. Unchanged mildly enlarged mediastinal lymph nodes with the largest measuring 1.2 cm. Chronic deformity of the axillary portion of the right 6th rib. Normal unenhanced main pulmonary artery and right and left pulmonary arteries. Normal bilateral peripheral pulmonary arteries. Normal thoracic aorta and visualized great vessels. There is no demonstrated aortic aneurysm. Normal heart and pericardium. Normal visualized trachea and bronchi. CT/Chest without Contrast IMPRESSION: Coronary artery calcification (CAC) is is present Acute soft tissue hematoma is noted underlying the right pectoralis muscle in t he interim measuring 3.9 x 8.4 x 9.1 cm in its largest anteroposterior, transverse and craniocaudal dimensions respectively. S econdary mild displacement and edema of the right pectoralis muscle. Mild surrounding soft tissue edema. Unchanged mild bilateral basilar pleural thickening/effusions. Unchanged minimal bilateral basilar atelectatic pulmonary changes. Unchanged emphysema/chronic interstitial thickening. Unchanged mildly enlarged mediastinal lymph nodes with the largest measuring 1. 2 cm. Chronic deformity of the axillary portion of the right 6th rib, unchanged. Reading [facility]
[2024-11-19 04:04] LABS: D-Dimer Quantitative (DVT/PE) > 20.00 FEU/ug/m (0.27-0.49)
--- NOTE | 2024-11-19 04:21 | VDLE_ITS ---
Reason For Study Reason For Study: Elevated D-dimer RIGHT LEFT GSV is normal. GSV is normal. CFV is compressible, spontaneous, phasic, competent CFV is compressible, spontaneous, phasic, competent, and demonstrates normal augmentation. and demonstrates normal augmentation. FV is compressible, spontaneous, phasic, competent FV is compressible, spontaneous, phasic, competent and demonstrates normal augmentation. and demonstrates normal augmentation. POP V is compressible, spontaneous, phasic, competent POP V is compressible, spontaneous, phasic, competent and demonstrates normal augmentation. and demonstrates normal augmentation. T/P Trunk is compressible. T/P Trunk is compressible. PTV is compressible. PTV is compressible. RT PerV is compressible. LT PerV is compressible. Procedure This is a venous duplex using B-mode, color flow and spectral Doppler. Exam performed portable in ICU/CCU. A preliminary report was called and/or faxed to ICU. VL/Venous Duplex US - Wei Extrem Interpretation Summary Deep veins of the lower extremities are bilaterally patent and compressible seg mentally. There is no evidence of deep vein thrombosis on either side. Valvular competence appears intact within the p roximal deep venous systems bilaterally. The great saphenous veins appear bilaterally patent and compressible segmentall y. Ordering Physician: Romeo Khan Referring Physician: Lulu Esparza Performed By: Amy Sidhu RVT
[2024-11-19 04:29] LABS: Allen Test Positive; Base Excess -12 mmol/L (-2 to +2); PO2 81 mmHG (75-100); SITE L Radial; SO2 95 % (95-99)
[2024-11-19 06:35] LABS: Reflex Lactate? Y
[2024-11-19 07:15] LABS: Hematocrit 37.1 % (37-47); Hemoglobin 12.6 g/dL (12.0-15.0); Immature Granulocytes Count 0.120 X10^3/uL (0.0-0.0); Mean Corp Hgb Conc 34.0 g/dL (32-36); Mean Corpuscular Volume 92.8 fL (81-99); Mean Platelet Vol. 9.7 fl (6.2-12.0); NRBC Flagged by Analyzer 0 % (0-5); Platelet Count 276 K/mm3 (150-450); RBC Distribution Width CV 13.2 % (11.6-14.6); RBC Distribution Width SD 45.2 fl (35.1-43.9); Red Blood Count 4.00 M/mm3 (4.2-5.4); White Blood Count 21.4 K/mm3 (4.4-11.0)
--- NOTE | 2024-11-19 07:35 | NURSING ---
recieved report at this time
[2024-11-19 07:51] LABS: Cholesterol 71 mg/dL (<=200); Low Density Lipoprotein Calc. 27 mg/dL; Triglycerides 56 mg/dL; Very Low Density Lipoprotein 11 mg/dL (5-40); cholesterol:hdl ratio screen 2.13
[2024-11-19 07:52] LABS: AST(SGOT) 56 U/L (<=31); Alanine Aminotransfer ALT/SGPT 45 U/L (<=34); Albumin, Serum 2.7 g/dL (3.4-4.8); Alkaline Phosphatase 64 U/L (35-104); Anion Gap 12 (5-15); BUN 25 mg/dL (4-19); BUN/Creat Ratio 15.9 RATIO (10-20); Calcium,Total 7.3 mg/dL (7.6-11.0); Carbon Dioxide 14.8 mmol/L (21.0-32.0); Chloride 109 mmol/L (98-108); Estimated Creatinine Clearance 33.79 ml/min (50-250); Globulin 1.8 g/dL (2.2-4.2); Glucose 258 mg/dL (70-99); Potassium 4.4 mmol/L (3.3-5.1)
[2024-11-19] MEDS: Nicotine (PBKC) 14 MG Patch TD (10:10)
[2024-11-19] MEDS: LEVOTHYROXINE SODIUM 100 MCG VIAL 25 MCG IV (10:11)
--- NOTE | 2024-11-19 12:03 | CASEMGMT ---
Addendum entered by Piter Guerrero 11/19/24 16:57: RN CM to room to completed [employer]'s Reduced Payment Application in case pt needs home o2 @ DC. Pt declines wanting to complete this again at this time, stating she is too tired. Original Note: RN CM IT ARCHITECTURE CONSULTANT CM to room to meet with patient for initial transition planning/care coordination assessment. RN CM introduced self and role at [facility]. Pt voices understanding and consents to assessment at this time. Pt resting in bed in no distress at this time. Pt is A/O at this time and answers all questions appropriately. Care providers, pharmacy, and demographics verified/updated at this time. Strata: 2 Address: Current address in [employer] is a [address]. Pt's physical address is: [address] [place], [place] [id number] PCP: FABI Esparza. Pt would like hospital f/u visit scheduled w/Lulu & agreeable to paying [id number], as she does not currently have insurance. Call placed to the office. The 1st available appt Lulu has is 11/30. Pt can see one of the other KITCHENHAND's as early as 11/24, but pt declines, stating she wants the appt with Lulu. Appt scheduled w/Lulu for 11/30 @ 11 AM. This was added to pt's discharge plan. Specialists: Dr Arias, cardiology. [facility]acy[facility] Insurance: No insurance. Per pt, Nena from [facility] has been in to talk w/her and she is re-applying for [facility]. Prescription Benefit: None LNOK: Son, Juan (only-child) Living Arrangements: Juan lives w/pt in a 2nd-floor apt, so pt has a flight to go up to get into the apartment. Pt states she typically does okay with the stairs unless she is carrying groceries and then she has some difficulty. Independent w/ADL's & IADL's and manages her own medications. She denies needing assistance w/med mgnt. 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 Transportation: Pt states drives self and states no transportation concerns at this time. DME: Pt uses no AD to ambulate. She does not have a pulse ox. ZACH RAMIREZ recommended to get one and made aware of locations this can be purchased. Pt states KITCHENHAND Lulu just sent in an Rx to [facility] for a glucometer last week but she has not picked it up yet. Call placed to [facility] pharmacy. They have received the script and belcher gordon is $44.21 for the Trumetrix brand meter and test strips. Pharmacist did not give cost for lancets. He states for the Reli-On OTC brand, the meter is $24.97 & test strips are $19.24. Pt made aware of same & states this is affordable. She is aware BS's often elevate when being on steroids and she plans to pickle processor the glucometer, test strips, and lancets after getting out of the hospital. Pt does not have home O2. Discussed DME companies and pt chose [employer]. She would like to complete Reduced Payment application, should she qualify for O2. She was made aware, if she discharges home over the weekend, [employer] would need a credit card on file & she was agreeable to same. Attempted to complete Reduced Payment Application with pt, but she declines at this time, stating she is too tired and asked RN CM to come back at a later time to complete. HHC/SNF: No hx of either. No needs identified. Pt wishes to return home and states has no concerns with going home at time of discharge. CM to follow for home oxygen needs and any further discharge planning/needs. Pt is currently on RA & per ECOLOGICAL RISK ASSESSOR, Rylie, when pt ambulated to bathroom today, she did not de-sat. Pt voices no further concerns/needs at this time. Advised pt to ask for CM if any further questions/concerns/needs arise. Voices understanding. PLAN: Home Follow for Rx cost @ discharge & possible need of [facility] Rx assist. Pt states she can afford to pay some, as long as it is not too expensive. Follow for possible home O2 @ discharge. Reduced Payment Application to be completed and faxed to [employer], if home O2 is needed. Green sheet on chart w/instructions for home O2 set-up, should pt qualify. Mary MEYERN RN CM
--- NOTE | 2024-11-19 12:03 | CCN.REFER ---
Addendum entered by Piter Guerrero 11/19/24 16:55: Documented under incorrect discipline. Original Note: RN?CM?ASSESSMENT ? RN?CM?to room to meet with patient for initial transition planning/care coordination?assessment.?RN?CM?introduced self and role at [facility].? Pt voices understanding and consents to?assessment?at this time.? Pt resting in bed in no distress at this time.? Pt is A/O at this time and answers all questions appropriately.?? Care providers, pharmacy, and demographics verified/updated at this time. ? Strata: 2 Address: Current address in [place] is a [address]. Pt's physical address is: [address] [place] [address] PCP: FABI Esparza. Pt would like hospital f/u visit scheduled w/Lulu & agreeable to paying [id number], as she does not currently have insurance. Call placed to the office. The 1st available appt Lulu has is 11/30. Pt can see one of the other TURBINE TECHNICIAN's as early as 11/24, but pt declines, stating she wants the appt with Lulu. Appt scheduled w/Lulu for 11/30 @ 11 AM. This was added to pt's discharge plan. Specialists: Dr Arias, cardiology. Preferred Pharmacy: [facility] Insurance: No insurance. Per pt, Nena from [facility] has been in to talk w/her and she is re-applying for [facility]. Prescription Benefit:?None LNOK: Son, Juan (only-child) Living Arrangements: Juan lives w/pt in a 2nd-floor apt, so pt has a flight to go up to get into the apartment. Pt states she typically does okay with the stairs unless she is carrying groceries and then she has some difficulty. Independent w/ADL's & IADL's and manages her own medications. She denies needing assistance w/med mgnt. 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 Transportation:?Pt states drives self and states no transportation concerns at this time.? DME: Pt uses no AD to ambulate. She does not have a pulse ox. ZACH RAMIREZ recommended to get one and made aware of locations this can be purchased. Pt states FABI Lawson just sent in an Rx to [facility] for a glucometer last week but she has not picked it up yet. Call placed to [facility] pharmacy. They have received the script and belcher gordon is $44.21 for the Trumetrix brand meter and test strips. Pharmacist did not give cost for lancets. He states for the Reli-On OTC brand, the meter is $24.97 & test strips are $19.24. Pt made aware of same & states this is affordable. She is aware BS's often elevate when being on steroids and she plans to scrap picker the glucometer, test strips, and lancets after getting out of the hospital. Pt does not have home O2. Discussed DME companies and pt chose [employer]. She would like to complete Reduced Payment application, should she qualify for O2. She was made aware, if she discharges home over the weekend, [employer] would need a credit card on file & she was agreeable to same. Reduced Payment application completed w/pt and attached to green sheet. HHC/SNF: No hx of either. No needs identified. ? Pt wishes to return home and states has no concerns with going home at time of discharge. CM?to follow for home oxygen needs and any further discharge planning/needs. Pt is currently on RA & per COMPREHENSIVE OPHTHALMOLOGIST, Rylie, when pt ambulated to bathroom today, she did not de-sat. Pt voices no further concerns/needs at this time.? Advised pt to ask for?CM?if any further questions/concerns/needs arise.? Voices understanding. ? PLAN:??Home Follow for Rx cost @ discharge & possible need of [facility] Rx assist. Pt states she can afford to pay some, as long as it is not too expensive. Follow for possible home O2 @ discharge. Reduced Payment Application to be faxed to [employer], if home O2 is needed. Green sheet on chart w/instructions for home O2 set-up, should pt qualify. ? Mary BSN?RN?CM ? ?
--- NOTE | 2024-11-19 12:48 | EX.PCM.CON.S ---
Assessment & Plan Assessment/Plan (1) Hematoma of right chest wall: PLAN: CTA images were reviewed; demonstrated R chest wall hematoma without subclavian artery involvement/active arterial bleeding; expect this to self-limiting and plan for continued monitoring. Do recommend utilizing sandbag for compression. Hold anticoagulants and antiplatelets and would hold her ASA on discharge as well. HPI Consult Data Date of Consult: 11/19/24 HPI Narrative HPI Narrative: NORMAN PARSON, is a 64 F who was admitted to the ICU from the [facility] ER last night/early this morning with acute respiratory failure requiring bipap and suspected septic shock requiring vasopressor support. While in the ER, there were attempts to place a central line via the R subclavian which were unsuccessful and ultimately central line was place in the L subclavian. Overnight, she developed a progressive R chest wall hematoma confirmed on noncontrast CT this morning. It was noted to continue to enlarge through the morning before seeming to level off through the afternoon. She does not take any anticoagulants at home, only ASA. On my exam today, she is off bipap and on RA; she is still requiring vasopressor support but this has been stable and they are trying to wean. She reports no active pain to the chest wall, only tenderness with deeper palpation. [facility] Medical History Nicotine use disorder Septic arthritis Elevated coronary artery calcium score Neck pain Bilateral carotid artery stenosis Snoring Peripheral arterial disease Fatty liver disease, nonalcoholic Major depressive disorder, recurrent episode Bradycardia Palpitations SOB (shortness of breath) Diabetic acetonemia COPD (chronic obstructive pulmonary disease) Hyperlipidemia Home Medications ?Medication ?Instructions ?Recorded ?Last Taken ?Type atorvastatin 20 mg tablet 20 mg PO QHS 12/22/17 Unknown History lisinopril 5 mg tablet 5 mg PO DAILY 12/22/17 Unknown History metformin 500 mg tablet 500 mg PO DAILY 12/22/17 Unknown History aspirin 81 mg tablet,delayed 81 mg PO QDAY 01/14/24 Unknown History release (Adult Aspirin Regimen) bupropion HCl 150 mg tablet,12 hr 150 mg PO BID 01/14/24 Unknown History sustained-release (Wellbutrin SR) buspirone 5 mg tablet 5 mg PO TID 01/14/24 Unknown History cyclobenzaprine 5 mg tablet 5 mg PO TID PRN 01/14/24 Unknown History fluticasone fur. 100 mcg-umeclid 1 inh inhalation QDAY 01/14/24 Unknown History 62.5 mcg-vilant 25 mcg inhalat.powder (Trelegy Ellipta) ibuprofen 800 mg tablet 800 mg PO Q8H PRN 01/14/24 Unknown History imipramine HCl 50 mg tablet 150 mg PO QHS 01/14/24 Unknown History ondansetron HCl 4 mg tablet 4 mg PO Q8H PRN 01/14/24 Unknown History thiothixene 2 mg capsule 2 mg PO BID 01/14/24 Unknown History zolpidem 10 mg tablet (Ambien) 10 mg PO QHS PRN sleep 01/14/24 Unknown History melatonin 5 mg capsule mg PO PRN 01/21/24 Unknown History pantoprazole 40 mg tablet,delayed 40 mg PO DAILY #90 tabs 03/26/24 Unknown Rx release Allergy/AdvReac Type Severity Reaction Status Date / Time simvastatin Allergy Other Verified 11/18/24 21:07 Family History Mother Heart disease Father Diabetes Brother Parkinson's disease Surgical History History of arthroscopy of knee History of colonoscopy History of rectal polypectomy History of cardiac catheterization H/O carotid endarterectomy History of appendectomy Social History household members: children Smoking Status: Current every day smoker tobacco type: cigarettes alcohol intake: never substance use type: does not use caffeine: Yes Physical Exam Const alert, oriented x3 and no apparent distress HEENT normocephalic, head/scalp atraumatic and external nose normal Eyes EOMs intact bilaterally General Eye: normal appearance of both eyes Neck General: normal visual inspection Chest Chest Narrative: R proximal chest wall just inferior to clavicle with large focal swelling which is soft to palpation throughout; skin overlying the area is intact Resp normal respiratory effort and no retractions Effort and Inspection: able to speak in complete sentences Cardio Rate: regular rate Rhythm: regular rhythm Skin no rashes or lesions noted Neuro Speech: speech normal Psych mental status grossly normal Lab / Micro Data 11/19/24 07:04 11/19/24 07:04 Labs: Laboratory Results - last 24 hr 11/18/24 21:00: WBC 13.9 H, RBC 6.01 H, Hgb 18.9 H*, Hct 55.1 H, MCV 91.7, MCH 31.4, MCHC 34.3, RDW Std Deviation 44.1 H, RDW Coeff of Panchito 13.0, Plt Count 390, MPV 10.6, Immature Gran % (Auto) 0.800, Neut % (Auto) 55.3, Lymph % (Auto) 35.6, [place] % (Auto) 4.5, Eos % (Auto) 2.9, Baso % (Auto) 0.9, Absolute Neuts (auto) 7.7, Absolute Lymphs (auto) 4.95 H, Nucleated RBC % 0, PT 15.7 H, INR 1.2, APTT 32.1, Sodium 134, Potassium 4.0, Chloride 98, Carbon Dioxide 17.7 L, Anion Gap 18 H, BUN 17, Creatinine 1.36 H, Estim Creat Clear Calc 39.22 L, Est GFR (MDRD) Non-Af 44 L, BUN/Creatinine Ratio 12.4, Glucose 316 H, Calcium 10.0, Total Bilirubin 0.53, AST 64 H, ALT 38 H, Alkaline Phosphatase 115 H, Troponin T High Sens 11, Total Protein 6.8, Albumin 3.9, Globulin 2.9, Albumin/Globulin Ratio 1.3, b-Hydroxybutyric mmol/L 0.2, TSH 16.900 H, Cortisol PM Sample 35.80 H 11/18/24 21:08: Lactic Acid 3.0 H* 11/18/24 21:42: Urine Color Yellow, Urine Clarity Clear, Urine pH 6.0, Ur Specific [place] 1.015, Urine Protein 100 H, Urine Glucose (UA) Normal, Urine Ketones Negative, Urine Occult Blood 10 H, Urine Nitrite Negative, Urine Bilirubin 6 H, Urine Urobilinogen Normal, Ur Leukocyte Esterase 25 H, Urine RBC 0-5 SEEN, Urine WBC 0-5 SEEN, Ur Squamous Epith Cells 0-5 SEEN, Urine Bacteria 0 SEEN, Urine Mucus 0 SEEN 11/18/24 23:16: Troponin T Hi Sens 2 Hr 15 H 11/19/24 01:24: Troponin T Hi Sens 4Hr 22 H 11/19/24 02:10: D-Dimer Quant (PE/DVT) > 20.00 H*, Hemoglobin A1c 6.1 H, Lactic Acid 2.1 H*, Magnesium 2.6 H, Free T4 0.90, Free T3 pg/dL 2.4 11/19/24 07:02: POC Glucose 223 H 11/19/24 07:04: WBC 21.4 H, RBC 4.00 L, Hgb 12.6, Hct 37.1, MCV 92.8, MCH 31.5, MCHC 34.0, RDW Std Deviation 45.2 H, RDW Coeff of Panchito 13.2, Plt Count 276, MPV 9.7, Immature Gran % (Auto) 0.600, Neut % (Auto) 90.7 H, Lymph % (Auto) 3.5 L, [place] % (Auto) 4.9, Eos % (Auto) 0.1, Baso % (Auto) 0.2, Absolute Neuts (auto) 19.5 H, Absolute Lymphs (auto) 0.75 L, Nucleated RBC % 0, Sodium 135, Potassium 4.4, Chloride 109 H, Carbon Dioxide 14.8 L, Anion Gap 12, BUN 25 H, Creatinine 1.57 H, Estim Creat Clear Calc 33.79 L, Est GFR (MDRD) Non-Af 37 L, BUN/Creatinine Ratio 15.9, Glucose 258 H, Lactic Acid 2.7 H*, Calcium 7.3 L, Phosphorus 5.1 H, Total Bilirubin 0.45, AST 56 H, ALT 45 H, Alkaline Phosphatase 64, Total Protein 4.5 L, Albumin 2.7 L, Globulin 1.8 L, Albumin/Globulin Ratio 1.5, Triglycerides 56, Cholesterol 71, LDL Cholesterol, Calc 27, VLDL Cholesterol 11, HDL Cholesterol 33 L, Cholesterol/HDL Ratio 2.13 Micro: Microbiology 11/19/24 08:25 Nasal Secretion MRSA (PCR) - Final 11/19/24 04:03 Mucosa - Nasopharyngeal Respiratory Panel (PCR) - Final 11/18/24 21:04 Mucosa - Nose SARS-CoV-2, Influenza & RSV (PCR) - Final ABG Data ABG results: ABG 11/18/24 11/19/24 21:07 04:24 Specimen Type ART ART Sample Site L Radial L Radial pH 7.30 L 7.30 L Bicarbonate Actual 13.1 L 14.9 L Total CO2 14 16 Base Excess -13 L -12 L O2 Saturation 100 H 95 O2 % 6.0 ABG pCO2 26.6 L 30.4 L ABG pO2 504 H* 81 David Test N/A Positive O2 Delivery Device Cannula Room Air Vent Mode Not entered Not entered Crit Call To/Read Back Yes Blood Gas Notified Whom Dr Marques Blood Gas Notified Time 21:09:37 Imaging Radiology Impression Chest X-Ray 11/18/24 20:50 IMPRESSION: No acute cardiopulmonary disease. Reading Location: [facility] Chest X-Ray 11/18/24 22:34 IMPRESSION: Left subclavian central venous catheter with tip at the lower SVC. Unchanged lung aeration. No pneumothorax or sizable pleural effusion. Reading Location: [facility] Chest CTA 11/18/24 22:41 IMPRESSION: No CT evidence of a pulmonary embolism. Mild chronic fibroemphysematous pulmonary changes, as described above. Mediastinal lymphadenopathy. Soft tissue thickening in the bilateral hilar regions may represent hilar lymphadenopathy or peribronchial infiltrates. Please correlate clinically for bronchitis. Moderate thoracic spondylosis with mild dextro convex scoliosis. Reading Location: [facility] [place] Abdomen/Pelvis CT 11/19/24 00:03 IMPRESSION: 1. Abrupt narrowing of the proximal sigmoid colon with a short segment of wall thickening. This could represent focal colitis or a mucosal mass lesion. 2. Mild wall thickening of the duodenum with mild adjacent fat stranding, concerning for duodenitis. 3. Mild dilatation of the large and small bowel proximal to the focal narrowing in the proximal sigmoid colon, which could represent a low-grade partial small bowel obstruction. 4. Large amount of stool within the distal sigmoid colon and rectum. 5. Small hiatal hernia. 6. Moderate to severe thoracolumbar spondylosis with mild lumbar scoliosis. Reading Location: [facility] [place] Echocardiogram 11/19/24 02:04 Interpretation Summary Technically difficult study with suboptimal images. Mild concentric left ventricular hypertrophy. The left ventricular ejection fraction is 65 %. Stage 1 diastolic dysfunction. Ordering Physician: Romeo Khan Referring Physician: QUINN SWANSON Performed By: Agnieszka Brenner RCS Chest CT 11/19/24 03:46 IMPRESSION: Coronary artery calcification (CAC) is is present Acute soft tissue hematoma is noted underlying the right pectoralis muscle in the interim measuring 3.9 x 8.4 x 9.1 cm in its largest anteroposterior, transverse and craniocaudal dimensions respectively. Secondary mild displacement and edema of the right pectoralis muscle. Mild surrounding soft tissue edema. Unchanged mild bilateral basilar pleural thickening/effusions. Unchanged minimal bilateral basilar atelectatic pulmonary changes. Unchanged emphysema/chronic interstitial thickening. Unchanged mildly enlarged mediastinal lymph nodes with the largest measuring 1.2 cm. Chronic deformity of the axillary portion of the right 6th rib, unchanged. Reading Location: [facility] Charges/Coding Visit Charges Inpatient E&M: 97923 Init Hosp L1
--- NOTE | 2024-11-19 14:13 | PCM.PN.HOSP ---
Reason for Visit Chief Complaint: SOB, Wheezing and Diaphoresis. Objective Data Objective Data Vital Signs: Vital Signs Temp Pulse Resp BP Pulse Ox O2 Del Method O2 Flow Rate 98.1 F 89 18 90/43 L 95 Room Air 2 11/19/24 02:04 11/19/24 05:00 11/19/24 05:00 11/19/24 05:00 11/19/24 05:00 11/19/24 04:00 11/18/24 22:45 FiO2 28 11/18/24 21:15 Oxygen Flow Rate (L/min) 2 Oxygen Delivery Method Room Air Weight: 163 lb 9.328 oz Body Mass Index (BMI) 30.9 Intake & Output: Intake and Output for Last 24 Hours 11/17/24 11/18/24 11/19/24 23:59 23:59 23:59 Intake Total 3034.55 / 3034.55 474.82 / 474.82 Output Total 475 / 475 Balance 3034.55 / 3034.55 -0.18 / -0.18 Lab / Micro Data 11/19/24 07:04 11/19/24 07:04 Labs: Laboratory Results - last 24 hr 11/18/24 21:00: WBC 13.9 H, RBC 6.01 H, Hgb 18.9 H*, Hct 55.1 H, MCV 91.7, MCH 31.4, MCHC 34.3, RDW Std Deviation 44.1 H, RDW Coeff of Panchito 13.0, Plt Count 390, MPV 10.6, Immature Gran % (Auto) 0.800, Neut % (Auto) 55.3, Lymph % (Auto) 35.6, [place] % (Auto) 4.5, Eos % (Auto) 2.9, Baso % (Auto) 0.9, Absolute Neuts (auto) 7.7, Absolute Lymphs (auto) 4.95 H, Nucleated RBC % 0, PT 15.7 H, INR 1.2, APTT 32.1, Sodium 134, Potassium 4.0, Chloride 98, Carbon Dioxide 17.7 L, Anion Gap 18 H, BUN 17, Creatinine 1.36 H, Estim Creat Clear Calc 39.22 L, Est GFR (MDRD) Non-Af 44 L, BUN/Creatinine Ratio 12.4, Glucose 316 H, Calcium 10.0, Total Bilirubin 0.53, AST 64 H, ALT 38 H, Alkaline Phosphatase 115 H, Troponin T High Sens 11, Total Protein 6.8, Albumin 3.9, Globulin 2.9, Albumin/Globulin Ratio 1.3, b-Hydroxybutyric mmol/L 0.2, TSH 16.900 H, Cortisol PM Sample 35.80 H 11/18/24 21:08: Lactic Acid 3.0 H* 11/18/24 21:42: Urine Color Yellow, Urine Clarity Clear, Urine pH 6.0, Ur Specific [place] 1.015, Urine Protein 100 H, Urine Glucose (UA) Normal, Urine Ketones Negative, Urine Occult Blood 10 H, Urine Nitrite Negative, Urine Bilirubin 6 H, Urine Urobilinogen Normal, Ur Leukocyte Esterase 25 H, Urine RBC 0-5 SEEN, Urine WBC 0-5 SEEN, Ur Squamous Epith Cells 0-5 SEEN, Urine Bacteria 0 SEEN, Urine Mucus 0 SEEN 11/18/24 23:16: Troponin T Hi Sens 2 Hr 15 H 11/19/24 01:24: Troponin T Hi Sens 4Hr 22 H 11/19/24 02:10: D-Dimer Quant (PE/DVT) > 20.00 H*, Hemoglobin A1c 6.1 H, Lactic Acid 2.1 H*, Magnesium 2.6 H, Free T4 0.90, Free T3 pg/dL 2.4 11/19/24 07:04: WBC 21.4 H, RBC 4.00 L, Hgb 12.6, Hct 37.1, MCV 92.8, MCH 31.5, MCHC 34.0, RDW Std Deviation 45.2 H, RDW Coeff of Panchito 13.2, Plt Count 276, MPV 9.7, Immature Gran % (Auto) 0.600, Neut % (Auto) 90.7 H, Lymph % (Auto) 3.5 L, [place] % (Auto) 4.9, Eos % (Auto) 0.1, Baso % (Auto) 0.2, Absolute Neuts (auto) 19.5 H, Absolute Lymphs (auto) 0.75 L, Nucleated RBC % 0 Micro: Microbiology 11/18/24 21:04 Mucosa - Nose SARS-CoV-2, Influenza & RSV (PCR) - Final ABG Data ABG results: ABG 11/18/24 11/19/24 21:07 04:24 Specimen Type ART ART Sample Site L Radial L Radial pH 7.30 L 7.30 L Bicarbonate Actual 13.1 L 14.9 L Total CO2 14 16 Base Excess -13 L -12 L O2 Saturation 100 H 95 O2 % 6.0 ABG pCO2 26.6 L 30.4 L ABG pO2 504 H* 81 David Test N/A Positive O2 Delivery Device Cannula Room Air Vent Mode Not entered Not entered Crit Call To/Read Back Yes Blood Gas Notified Whom Dr Marques Blood Gas Notified Time 21:09:37 Radiography Diagnostic Testing: Radiology Impression Chest X-Ray 11/18/24 20:50 IMPRESSION: No acute cardiopulmonary disease. Reading Location: [facility] Chest X-Ray 11/18/24 22:34 IMPRESSION: Left subclavian central venous catheter with tip at the lower SVC. Unchanged lung aeration. No pneumothorax or sizable pleural effusion. Reading Location: [id number] Chest CTA 11/18/24 22:41 IMPRESSION: No CT evidence of a pulmonary embolism. Mild chronic fibroemphysematous pulmonary changes, as described above. Mediastinal lymphadenopathy. Soft tissue thickening in the bilateral hilar regions may represent hilar lymphadenopathy or peribronchial infiltrates. Please correlate clinically for bronchitis. Moderate thoracic spondylosis with mild dextro convex scoliosis. Reading Location: [id number] Abdomen/Pelvis CT 11/19/24 00:03 IMPRESSION: 1. Abrupt narrowing of the proximal sigmoid colon with a short segment of wall thickening. This could represent focal colitis or a mucosal mass lesion. 2. Mild wall thickening of the duodenum with mild adjacent fat stranding, concerning for duodenitis. 3. Mild dilatation of the large and small bowel proximal to the focal narrowing in the proximal sigmoid colon, which could represent a low-grade partial small bowel obstruction. 4. Large amount of stool within the distal sigmoid colon and rectum. 5. Small hiatal hernia. 6. Moderate to severe thoracolumbar spondylosis with mild lumbar scoliosis. Reading Location: [id number] Chest CT 11/19/24 03:46 IMPRESSION: Coronary artery calcification (CAC) is is present Acute soft tissue hematoma is noted underlying the right pectoralis muscle in the interim measuring 3.9 x 8.4 x 9.1 cm in its largest anteroposterior, transverse and craniocaudal dimensions respectively. Secondary mild displacement and edema of the right pectoralis muscle. Mild surrounding soft tissue edema. Unchanged mild bilateral basilar pleural thickening/effusions. Unchanged minimal bilateral basilar atelectatic pulmonary changes. Unchanged emphysema/chronic interstitial thickening. Unchanged mildly enlarged mediastinal lymph nodes with the largest measuring 1.2 cm. Chronic deformity of the axillary portion of the right 6th rib, unchanged. [facility] Exam Narrative Seen and examined Patient admitted with chief complaint of chest pain and shortness of breath and nausea. Chest pain was localized in midsternal, sharp and states that she felt like she could not breathe. Currently 97% on room air. Patient denies abdominal pain. She had a large formed brown-colored stool. Intermittent abdominal pain Physical exam General: Alert, Oriented x3, Cooperative HEENT: Atraumatic, PERRLA, EOMI, Normocephalic. Oral: No Gingival or Mucosal Lesions/ Ulcerations Neck: Supple, No JVD, Negative Carotid Bruits Chest wall/Lungs: Air entry diminished in bilateral lung bases. No crepitation/rhonchi Cardiovascular: Sinus rhythm, Normal S1,S2, No M/G/R Abdomen: Bowel Sounds sluggish, Soft, Non Tender, Non-Distended : No dysuria. No renal angle tenderness. No suprapubic tenderness. Extremities: No edema, Capillary Refill Less than 3 Seconds Skin: No rashes, No breakdown Musculoskeletal: No Tenderness to Palpation of Joints or Extremities Neurological: Cranial nerves II-XII grossly intact, DTR 2+/4. No acute focal neurological deficit. Psych/Mental Status: Normal Affect, Appropriate. Assessment & Plan Assessment/Plan (1) COPD exacerbation: (2) Bronchitis: (3) Acute respiratory failure: QUALIFIERS: Respiratory failure complication: unspecified whether with hypoxia or hypercapnia Qualified Code(s): J96.00 - Acute respiratory failure, unspecified whether with hypoxia or hypercapnia (4) Shock circulatory: (5) Adrenal insufficiency: (6) Severe hypotension: (7) Hypothermia: QUALIFIERS: Encounter type: initial encounter Qualified Code(s): T68.XXXA - Hypothermia, initial encounter (8) Acidosis, lactic: (9) Acquired polycythemia vera: (10) Hypothyroidism: QUALIFIERS: Hypothyroidism type: unspecified Qualified Code(s): E03.9 - Hypothyroidism, unspecified (11) Obesity (BMI 30.0-34.9): (12) NAFLD (nonalcoholic fatty liver disease): (13) Focal active colitis: (14) Duodenitis: (15) Elevated d-dimer: PLAN: Plan This is a 63-year-old female brought by EMS for shortness of breath complaint of chest pain and nausea and diaphoretic diaphoretic. As per ED physician, she denied chest patient. Complain of nonproductive cough with no history of VTE. Denies leg pain swelling discoloration 1. Acute hypoxic respiratory failure due to acute exacerbation of COPD requiring BiPAP: Chest CTA does not show evidence of PE but chronic fibroemphysematous pulmonary changes with mediastinal lymphadenopathy and soft tissue thickening in bilateral hilar regions, may represent lymphadenopathy or peribronchial infiltrates Empirically started on IV Zosyn. Patient is being managed on scheduled bronchodilator, IV Solu-Medrol, Mucinex, incentive spirometry and Pep.. 2. Undifferentiated Shock most likely hemorrhagic/distributive shock, less septic shock with Severe Hypotension of 72/25 mmHg, Severe Hypothermia of 94.4 ?F, Lactic Acidosis of 3 mmol/L and Leukocytosis of 13.9 K all present on admission: Patient on Levophed drip, to keep MAP more than 65 mmHg through left subclavian CVC catheter inserted in ED. Patient was on RAD hugger to raise core temperature. Most recent temperature 98.1 ?F. Lactic acid still elevated 3.0, 2.1 and 2.7. Echo is ordered. CT shows large right pectoralis muscle hematoma 3.9 x 8.4 x 9.1 cm with secondary mild displacement and edema of the right pectoralis muscle. Mild surrounding soft tissue edema. CT does not show significant consolidation but minimal bilateral basilar atelectatic changes, unchanged emphysema/chronic interstitial thickening and unchanged mildly enlarged mediastinal lymph nodes largest measuring 1.2 cm. Discussed with electrophysiology nurse practitioner requesting consult as patient is on IV Levophed drip for shock 3. Polycythemia with hemoglobin of 18.9 g/dL present on admission (suspected to be due to combination of chronic tobacco abuse and DENNIS) compounding #1 & #2 - Screen for SHONDA-2 mutation. Unclear whether it is true because previous hemoglobin was 13.8/40.5 in July 2020 but it was 18.9/55.1 on 11/18. Most recent 12.6/37.1% today. Patient has leukocytosis 21.4 increased from 13.9 and platelet count normal. 4. Subclinical hypothyroidism: Elevated TSH of 16.9, free T40.9, low normal 5. Obesity (class I); with BMI of 31.2 this admission plus NAFLD adding to the burden of disease outlined from #1 - #4 - Weight loss will be recommended. This complicates her case and may hamper recovery. 6. DM-2; of unknown control on metformin daily - Keep NPO for now. Hold metformin until further notice with elevated lactate. FSBS q. 6 hours plus lowest-intensity SSI. Check HgbA1c to objectively evaluate quality of diabetic control. 7. Essential hypertension; on lisinopril - Hold scheduled antihypertensives in light of #2. 8. Hyperlipidemia; on atorvastatin - Resume statin when patient can tolerate oral intake. 9. History of bilateral carotid artery stenosis; s/p Right CEA at [facility] (2012) - Noted. 10. PAD - Stable. Lower extremity Doppler ordered as D-dimer was critically high. 12. Schizophrenia and Depression; on thiothixene twice daily, buspirone 3 times daily, bupropion twice daily plus imipramine nightly - Hold oral agents at this time. 13. Chronic insomnia; on zolpidem nightly - Noted. 16. GERD; on pantoprazole - Resume PPI IV as outlined in #1. 17. OA; on ibuprofen: Discontinue ketorolac. Hold NSAIDs because of hematoma 18. DVT prophylaxis - hold Lovenox. Pharmacological prophylaxis contraindicated in view of large hematoma and right pectoralis muscle Clinical Impression(s) from Imaging Studies Chest X-Ray 11/18/24 20:50 IMPRESSION: No acute cardiopulmonary disease. Reading Location: [id number] Chest X-Ray 11/18/24 22:34 IMPRESSION: Left subclavian central venous catheter with tip at the lower SVC. Unchanged lung aeration. No pneumothorax or sizable pleural effusion. Reading Location: [facility] Chest CTA 11/18/24 22:41 IMPRESSION: No CT evidence of a pulmonary embolism. Mild chronic fibroemphysematous pulmonary changes, as described above. Mediastinal lymphadenopathy. Soft tissue thickening in the bilateral hilar regions may represent hilar lymphadenopathy or peribronchial infiltrates. Please correlate clinically for bronchitis. Moderate thoracic spondylosis with mild dextro convex scoliosis. Reading Location: [facility] Abdomen/Pelvis CT 11/19/24 00:03 IMPRESSION: 1. Abrupt narrowing of the proximal sigmoid colon with a short segment of wall thickening. This could represent focal colitis or a mucosal mass lesion. 2. Mild wall thickening of the duodenum with mild adjacent fat stranding, concerning for duodenitis. 3. Mild dilatation of the large and small bowel proximal to the focal narrowing in the proximal sigmoid colon, which could represent a low-grade partial small bowel obstruction. 4. Large amount of stool within the distal sigmoid colon and rectum. 5. Small hiatal hernia. 6. Moderate to severe thoracolumbar spondylosis with mild lumbar scoliosis. Reading Location: [facility] Echocardiogram 11/19/24 02:04 Interpretation Summary Technically difficult study with suboptimal images. Mild concentric left ventricular hypertrophy. The left ventricular ejection fraction is 65 %. Stage 1 diastolic dysfunction. Ordering Physician: Romeo Khan Referring Physician: QUINN SWANSON Performed By: Agnieszka Brenner RCS Chest CT 11/19/24 03:46 IMPRESSION: Coronary artery calcification (CAC) is is present Acute soft tissue hematoma is noted underlying the right pectoralis muscle in the interim measuring 3.9 x 8.4 x 9.1 cm in its largest anteroposterior, transverse and craniocaudal dimensions respectively. Secondary mild displacement and edema of the right pectoralis muscle. Mild surrounding soft tissue edema. Unchanged mild bilateral basilar pleural thickening/effusions. Unchanged minimal bilateral basilar atelectatic pulmonary changes. Unchanged emphysema/chronic interstitial thickening. Unchanged mildly enlarged mediastinal lymph nodes with the largest measuring 1.2 cm. Chronic deformity of the axillary portion of the right 6th rib, unchanged. Reading Location: [facility] Charges/Coding Visit Charges Inpatient E&M: 76077 Subs Hosp L3
--- NOTE | 2024-11-19 15:18 | CT_ITS ---
PROCEDURE: CTA CHEST W/WO CONTRAST 11/19/2024 REASON FOR EXAM: R CHEST WALL HEMATOMA TECHNIQUE: Procedure Code: [id number] Modality: CT Procedure: CTA CHEST W/WO CONTRAST Multiplanar Sagittal and Coronal images were obtained. One or more dose reduction techniques were used (e.g., Automated exposure control, adjustment of the mA and/or kV according to patient size, use of iterative reconstruction technique). COMPARISON: 11/19/2024. FINDINGS: In the region of the right pectoralis muscle is a 6.8 x 2.4 cm hyperdense asymmetric region likely indicating an intramuscular hematoma. There is adjacent fat stranding degenerative changes of the spine. Dextroscoliosis. Trace free fluid adjacent to the liver. Enlarged/prominent mediastinal lymph nodes with the largest being a right paratracheal lymph node measuring 1.1 cm in short axis diameter mild atherosclerosis of a normal caliber thoracic aorta. The heart is normal in size. Coronary artery calcifications are present. No pulmonary artery filling defects. Mild centrilobular and paraseptal emphysema. Trace left pleural effusion. Chronic healing right 6th rib fracture. CT/CTA Chest W/WO Contrast IMPRESSION: No pulmonary embolism. 6.8 x 2.4 cm right pectoralis intramuscular hematoma with adjacent fat strandin g. Similar in size when accounting for differences in measurement. Trace left pleural effusion. Mild centrilobular and paraseptal emphysema. Prominent mediastinal lymph nodes, largest right paratracheal node measuring 1. 1 cm in short axis diameter. Stable. Trace perihepatic free fluid. Mild atherosclerosis with coronary artery calcifications. Degenerative changes of the spine with dextroscoliosis. Reading Location: [id number]
--- NOTE | 2024-11-19 15:18 | CT_ITS ---
PROCEDURE: ABDOMEN/PEL W ORAL CONT ONLY 11/19/2024 REASON FOR EXAM: F/U POSSIBLE PSBO AND COLONIC NARROWING TECHNIQUE: Procedure Code: [id number] Modality: CT Procedure: ABDOMEN/PEL W ORAL CONT ONLY Noncontrast technique limits evaluation of the abdominal and pelvic viscera. Coronal and Sagittal reconstruction series were provided. One or more dose reduction techniques were used (e.g., Automated exposure control, adjustment of the mA and/or kV according to patient size, use of iterative reconstruction technique). RADIATION DOSE SUMMARY: CTDlvol: 15.91, 7.12, 12.48, 11.15 mGy DLP: 1390 mGycm COMPARISON: CT Abdomen and Pelvis w/Contrast, 11/19/2024 at 12:21 a.m. FINDINGS: LUNG BASES: Dependent left lower lobe atelectasis again seen. Minimal pericardial fluid. Oral contrast in the esophagus, may reflect esophageal dysmotility or reflux disease. LIVER: Unremarkable. GALLBLADDER: Vicarious gallbladder contrast excretion. BILE DUCTS: No ductal dilation. PANCREAS: Unremarkable. SPLEEN: Unremarkable. ADRENAL GLANDS: Unremarkable. KIDNEYS: Residual contrast material in the renal collecting systems bilaterally. Fluid density 2.4 cm exophytic right inferior renal cyst. No hydronephrosis or hydroureter. STOMACH AND BOWEL: Small hiatal hernia. No obstruction or perforation. Diffuse colonic wall thickening from the mid transverse colon to the distal sigmoid colon. No focal colonic narrowing present on the current study. APPENDIX: The appendix is not definitively seen. RETRO/PERITONEUM: [id number] peritoneal fluid, increased since the prior study. No free air. LYMPH NODES: No lymphadenopathy. PELVIC ORGANS: Aguiar decompressed urinary bladder. Unremarkable uterus. No adnexal lesions. VASCULATURE: No aortic aneurysm. Scattered calcified atherosclerosis. ABDOMINAL WALL AND SOFT TISSUES: Tiny fat-containing umbilical hernia. BONES: No fracture or suspicious osseous abnormality. Degenerative changes of the spine. Grade 1 anterolisthesis of L4 on L5. CT/Abdomen/Pel W ORAL Cont Only IMPRESSION: 1. Acute colitis from the mid transverse colon through the sigmoid. 2. Mild-moderate ascites, which has increased. Reading Location: [facility]
--- NOTE | 2024-11-19 17:04 | EX.PCM.CON.S ---
Assessment & Plan Assessment/Plan (1) Abnormal CT scan, colon: PLAN: Patient is 64-year-old female admitted to the ICU yesterday with concern for sepsis after a presentation with chest pain and significant shortness of breath. Additionally, CT imaging was completed showing concern for possible small bowel obstruction as well as a abrupt transition of the sigmoid colon concerning for possible focal colitis. Patient denies any significant antecedent history and appears up-to-date, but due for colonoscopy. Further, she denies any present nausea or vomiting is actually requesting a diet. Despite this reassuring her history she does complain of some significant tenderness on exam with palpation of the epigastrium. Therefore, it is my recommendation to follow-up earlier CT findings with enteric contrast and have requested per rectal contrast administration as well to provide better definition on the sigmoid colon region. Would keep patient n.p.o. until results of CAT scan are known and further recommendations can be made. In the interim I have been contacted by vascular surgery out of concerns to perform additional CT angiography for possible vascular injury from central line placement. I have urged them to take first priority with patient's workup. CT imaging remains pending at this time. Dion Brown MD General Surgery Endocrine Surgery Pager: [facility] [address] [place] [address], [facility], [address] [place] [address] Office: [phone] HPI Consult Data Date of Consult: 11/19/24 HPI Narrative Reason for Consultation: Intake evidence of partial small bowel obstruction and/or possible colon le HPI Narrative: NORMAN PARSON, is a 64 F who presented to [facility] yesterday with complaints of chest pain and shortness of breath. As part of her workup imaging was performed with CT of the abdomen pelvis showing IMPRESSION: 1. Abrupt narrowing of the proximal sigmoid colon with a short segment of wall thickening. This could represent focal colitis or a mucosal mass lesion. 2. Mild wall thickening of the duodenum with mild adjacent fat stranding, concerning for duodenitis. 3. Mild dilatation of the large and small bowel proximal to the focal narrowing in the proximal sigmoid colon, which could represent a low-grade partial small bowel obstruction. 4. Large amount of stool within the distal sigmoid colon and rectum. 5. Small hiatal hernia. 6. Moderate to severe thoracolumbar spondylosis with mild lumbar scoliosis. General surgery was asked to further evaluate. Upon arrival to patient's room in the ICU she states that she is now feeling great and wishes for permission to begin a diet. She denies any abdominal pain. She shares that she had 1 formed bowel movement as well as 1 loose bowel movement today. She denies noting any frankly bloody or dark stools. She denies any present nausea or vomiting. She does endorse some recent constipation. She states she had a colonoscopy approximately [address] Lanza and is under the impression that she is now due. She denies any history of polyps. She denies any family history of diverticulitis, inflammatory bowel disease, or colon cancer. Patient's only prior abdominal surgical procedure was an appendectomy as a child. [facility] Medical History Nicotine use disorder Septic arthritis Elevated coronary artery calcium score Neck pain Bilateral carotid artery stenosis Snoring Peripheral arterial disease Fatty liver disease, nonalcoholic Major depressive disorder, recurrent episode Bradycardia Palpitations SOB (shortness of breath) Diabetic acetonemia COPD (chronic obstructive pulmonary disease) Hyperlipidemia Home Medications ?Medication ?Instructions ?Recorded ?Last Taken ?Type atorvastatin 20 mg tablet 20 mg PO QHS 12/22/17 Unknown History lisinopril 5 mg tablet 5 mg PO DAILY 12/22/17 Unknown History metformin 500 mg tablet 500 mg PO DAILY 12/22/17 Unknown History aspirin 81 mg tablet,delayed 81 mg PO QDAY 01/14/24 Unknown History release (Adult Aspirin Regimen) bupropion HCl 150 mg tablet,12 hr 150 mg PO BID 01/14/24 Unknown History sustained-release (Wellbutrin SR) buspirone 5 mg tablet 5 mg PO TID 01/14/24 Unknown History cyclobenzaprine 5 mg tablet 5 mg PO TID PRN 01/14/24 Unknown History fluticasone fur. 100 mcg-umeclid 1 inh inhalation QDAY 01/14/24 Unknown History 62.5 mcg-vilant 25 mcg inhalat.powder (Trelegy Ellipta) ibuprofen 800 mg tablet 800 mg PO Q8H PRN 01/14/24 Unknown History imipramine HCl 50 mg tablet 150 mg PO QHS 01/14/24 Unknown History ondansetron HCl 4 mg tablet 4 mg PO Q8H PRN 01/14/24 Unknown History thiothixene 2 mg capsule 2 mg PO BID 01/14/24 Unknown History zolpidem 10 mg tablet (Ambien) 10 mg PO QHS PRN sleep 01/14/24 Unknown History melatonin 5 mg capsule mg PO PRN 01/21/24 Unknown History pantoprazole 40 mg tablet,delayed 40 mg PO DAILY #90 tabs 03/26/24 Unknown Rx release Allergy/AdvReac Type Severity Reaction Status Date / Time simvastatin Allergy Other Verified 11/18/24 21:07 Family History Mother Heart disease Father Diabetes Brother Parkinson's disease Surgical History History of arthroscopy of knee History of colonoscopy History of rectal polypectomy History of cardiac catheterization H/O carotid endarterectomy History of appendectomy Social History household members: children Smoking Status: Current every day smoker tobacco type: cigarettes alcohol intake: never substance use type: does not use caffeine: Yes Physical Exam Const alert, oriented x3 and no apparent distress Resp normal respiratory effort GI GI Narrative: Mildly distended, soft, reports moderate tenderness (rated 8 out of 10) to palpation in the upper abdomen. Nontender to palpation in lower abdomen Lab / Micro Data 11/19/24 07:04 11/19/24 07:04 Labs: Laboratory Results - last 24 hr 11/18/24 21:00: WBC 13.9 H, RBC 6.01 H, Hgb 18.9 H*, Hct 55.1 H, MCV 91.7, MCH 31.4, MCHC 34.3, RDW Std Deviation 44.1 H, RDW Coeff of Panchito 13.0, Plt Count 390, MPV 10.6, Immature Gran % (Auto) 0.800, Neut % (Auto) 55.3, Lymph % (Auto) 35.6, [place] % (Auto) 4.5, Eos % (Auto) 2.9, Baso % (Auto) 0.9, Absolute Neuts (auto) 7.7, Absolute Lymphs (auto) 4.95 H, Nucleated RBC % 0, PT 15.7 H, INR 1.2, APTT 32.1, Sodium 134, Potassium 4.0, Chloride 98, Carbon Dioxide 17.7 L, Anion Gap 18 H, BUN 17, Creatinine 1.36 H, Estim Creat Clear Calc 39.22 L, Est GFR (MDRD) Non-Af 44 L, BUN/Creatinine Ratio 12.4, Glucose 316 H, Calcium 10.0, Total Bilirubin 0.53, AST 64 H, ALT 38 H, Alkaline Phosphatase 115 H, Troponin T High Sens 11, Total Protein 6.8, Albumin 3.9, Globulin 2.9, Albumin/Globulin Ratio 1.3, b-Hydroxybutyric mmol/L 0.2, TSH 16.900 H, Cortisol PM Sample 35.80 H 11/18/24 21:08: Lactic Acid 3.0 H* 11/18/24 21:42: Urine Color Yellow, Urine Clarity Clear, Urine pH 6.0, Ur Specific [place] 1.015, Urine Protein 100 H, Urine Glucose (UA) Normal, Urine Ketones Negative, Urine Occult Blood 10 H, Urine Nitrite Negative, Urine Bilirubin 6 H, Urine Urobilinogen Normal, Ur Leukocyte Esterase 25 H, Urine RBC 0-5 SEEN, Urine WBC 0-5 SEEN, Ur Squamous Epith Cells 0-5 SEEN, Urine Bacteria 0 SEEN, Urine Mucus 0 SEEN 11/18/24 23:16: Troponin T Hi Sens 2 Hr 15 H 11/19/24 01:24: Troponin T Hi Sens 4Hr 22 H 11/19/24 02:10: D-Dimer Quant (PE/DVT) > 20.00 H*, Hemoglobin A1c 6.1 H, Lactic Acid 2.1 H*, Magnesium 2.6 H, Free T4 0.90, Free T3 pg/dL 2.4 11/19/24 07:02: POC Glucose 223 H 11/19/24 07:04: WBC 21.4 H, RBC 4.00 L, Hgb 12.6, Hct 37.1, MCV 92.8, MCH 31.5, MCHC 34.0, RDW Std Deviation 45.2 H, RDW Coeff of Panchito 13.2, Plt Count 276, MPV 9.7, Immature Gran % (Auto) 0.600, Neut % (Auto) 90.7 H, Lymph % (Auto) 3.5 L, [place] % (Auto) 4.9, Eos % (Auto) 0.1, Baso % (Auto) 0.2, Absolute Neuts (auto) 19.5 H, Absolute Lymphs (auto) 0.75 L, Nucleated RBC % 0, Sodium 135, Potassium 4.4, Chloride 109 H, Carbon Dioxide 14.8 L, Anion Gap 12, BUN 25 H, Creatinine 1.57 H, Estim Creat Clear Calc 33.79 L, Est GFR (MDRD) Non-Af 37 L, BUN/Creatinine Ratio 15.9, Glucose 258 H, Lactic Acid 2.7 H*, Calcium 7.3 L, Phosphorus 5.1 H, Total Bilirubin 0.45, AST 56 H, ALT 45 H, Alkaline Phosphatase 64, Total Protein 4.5 L, Albumin 2.7 L, Globulin 1.8 L, Albumin/Globulin Ratio 1.5, Triglycerides 56, Cholesterol 71, LDL Cholesterol, Calc 27, VLDL Cholesterol 11, HDL Cholesterol 33 L, Cholesterol/HDL Ratio 2.13 11/19/24 12:57: POC Glucose 180 H Micro: Microbiology 11/19/24 08:25 Nasal Secretion MRSA (PCR) - Final 11/19/24 04:03 Mucosa - Nasopharyngeal Respiratory Panel (PCR) - Final 11/18/24 21:04 Mucosa - Nose SARS-CoV-2, Influenza & RSV (PCR) - Final ABG Data ABG results: ABG 11/18/24 11/19/24 21:07 04:24 Specimen Type ART ART Sample Site L Radial L Radial pH 7.30 L 7.30 L Bicarbonate Actual 13.1 L 14.9 L Total CO2 14 16 Base Excess -13 L -12 L O2 Saturation 100 H 95 O2 % 6.0 ABG pCO2 26.6 L 30.4 L ABG pO2 504 H* 81 David Test N/A Positive O2 Delivery Device Cannula Room Air Vent Mode Not entered Not entered Crit Call To/Read Back Yes Blood Gas Notified Whom Dr Marques Blood Gas Notified Time 21:09:37 Imaging Radiology Impression Chest X-Ray 11/18/24 20:50 IMPRESSION: No acute cardiopulmonary disease. Reading Location: [id number] Chest X-Ray 11/18/24 22:34 IMPRESSION: Left subclavian central venous catheter with tip at the lower SVC. Unchanged lung aeration. No pneumothorax or sizable pleural effusion. Reading Location: [facility] Chest CTA 11/18/24 22:41 IMPRESSION: No CT evidence of a pulmonary embolism. Mild chronic fibroemphysematous pulmonary changes, as described above. Mediastinal lymphadenopathy. Soft tissue thickening in the bilateral hilar regions may represent hilar lymphadenopathy or peribronchial infiltrates. Please correlate clinically for bronchitis. Moderate thoracic spondylosis with mild dextro convex scoliosis. Reading Location: [facility] Abdomen/Pelvis CT 11/19/24 00:03 IMPRESSION: 1. Abrupt narrowing of the proximal sigmoid colon with a short segment of wall thickening. This could represent focal colitis or a mucosal mass lesion. 2. Mild wall thickening of the duodenum with mild adjacent fat stranding, concerning for duodenitis. 3. Mild dilatation of the large and small bowel proximal to the focal narrowing in the proximal sigmoid colon, which could represent a low-grade partial small bowel obstruction. 4. Large amount of stool within the distal sigmoid colon and rectum. 5. Small hiatal hernia. 6. Moderate to severe thoracolumbar spondylosis with mild lumbar scoliosis. Reading Location: [facility] Echocardiogram 11/19/24 02:04 Interpretation Summary Technically difficult study with suboptimal images. Mild concentric left ventricular hypertrophy. The left ventricular ejection fraction is 65 %. Stage 1 diastolic dysfunction. Ordering Physician: Romeo Khan Referring Physician: QUINN SWANSON Performed By: Agnieszka Brenner RCS Chest CT 11/19/24 03:46 IMPRESSION: Coronary artery calcification (CAC) is is present Acute soft tissue hematoma is noted underlying the right pectoralis muscle in the interim measuring 3.9 x 8.4 x 9.1 cm in its largest anteroposterior, transverse and craniocaudal dimensions respectively. Secondary mild displacement and edema of the right pectoralis muscle. Mild surrounding soft tissue edema. Unchanged mild bilateral basilar pleural thickening/effusions. Unchanged minimal bilateral basilar atelectatic pulmonary changes. Unchanged emphysema/chronic interstitial thickening. Unchanged mildly enlarged mediastinal lymph nodes with the largest measuring 1.2 cm. Chronic deformity of the axillary portion of the right 6th rib, unchanged. Reading Location: [facility] Charges/Coding Visit Charges Inpatient E&M: 73737 Init Hosp L2
--- NOTE | 2024-11-19 17:12 | CASEMGMT ---
Social Work Pt admitted with no health insurance. [facility] and [facility]. SW met with pt and provided community resources including prescription assistance, people to people, [employer] and [employer]. Pt appreciative of informatiom and denies further needs. SW discussed advance directives with pt. Pt states she does not have a HCPOA but would want a friend to be decision maker, not her son. Pt is not feeling up to completing documents today. SW will follow up with pt tomorrow to discuss HCPOA further. KOFFI Handy
[2024-11-19] MEDS: 0.9% Normal Saline (250mL Bag) 250 ML 15 ML IV (20:30)
[2024-11-19] MEDS: Norepinephrine 8 MG in 0.9% Normal Saline (250mL Bag) 242 ML 3.8 MG CONT INF (20:31)
[2024-11-20] VITALS (32 sets, daily range): BP systolic 92–159; BP diastolic 44–105; PULSE 86–104; RESP 23–30; TEMP 37.1–37.7; O2SAT 89–98; BMI 31.3
[2024-11-20] MEDS: Piperacil/Tazobactam 3.375 GM in 0.9% Normal Saline (50mL MB+) 50 ML IV ×3 (05:08→22:01)
[2024-11-20 05:39] LABS: Hematocrit 28.7 % (37-47); Hemoglobin 10.2 g/dL (12.0-15.0); Immature Granulocytes Count 0.060 X10^3/uL (0.0-0.0); Mean Corp Hgb Conc 35.5 g/dL (32-36); Mean Corpuscular Volume 90.3 fL (81-99); Mean Platelet Vol. 9.8 fl (6.2-12.0); NRBC Flagged by Analyzer 0 % (0-5); POSITIVE DIFFERENTIAL YES; POSITIVE MORPHOLOGY YES; Platelet Count 192 K/mm3 (150-450); RBC Distribution Width CV 13.6 % (11.6-14.6); RBC Distribution Width SD 45.4 fl (35.1-43.9); Red Blood Count 3.18 M/mm3 (4.2-5.4); White Blood Count 17.8 K/mm3 (4.4-11.0)
[2024-11-20 05:40] LABS: Differential Indicated SCAN CRITERIA MET
[2024-11-20 06:11] LABS: Anion Gap 13 (5-15); BUN 27 mg/dL (4-19); BUN/Creat Ratio 20.9 RATIO (10-20); Calcium,Total 7.8 mg/dL (7.6-11.0); Carbon Dioxide 15.2 mmol/L (21.0-32.0); Chloride 106 mmol/L (98-108); Estimated Creatinine Clearance 41.43 ml/min (50-250); Glucose 157 mg/dL (70-99); Potassium 3.9 mmol/L (3.3-5.1)
[2024-11-20 06:45] LABS: Red Cell Morphology NORM C+C NORMAL (NORM C&C); Vacuolated Cells 1+
--- NOTE | 2024-11-20 08:23 | PN.SURG_ITS ---
Subjective Subjective Patient seen and examined during AM rounds. She is found resting in bed. She denies any nausea and confirms she tolerated her diet well. She does denied appetite at present. She confirms she still is experiencing bowel movements and reports them to be loose in character. She wishes to know when she will be eligible for discharge to home. Objective Data Objective Data Vital Signs: Vital Signs Temp Pulse Resp BP Pulse Ox O2 Del Method O2 Flow Rate 99 F 98 27 H 126/58 H 97 Room Air 2 11/20/24 04:00 11/20/24 07:00 11/20/24 07:00 11/20/24 07:00 11/20/24 07:00 11/20/24 07:00 11/18/24 22:45 FiO2 28 11/18/24 21:15 Oxygen Flow Rate (L/min) 2 Oxygen Delivery Method Room Air Weight: 166 lb 0.129 oz Body Mass Index (BMI) 31.3 Intake & Output: Intake and Output for Last 24 Hours 11/18/24 11/19/24 11/20/24 23:59 23:59 23:59 Intake Total 3034.55 / 3034.55 3168.67 / 3174.27 87.40 / 87.40 Output Total 2024 / 2024 550 / 550 Balance 3034.55 / 3034.55 1143.67 / 1149.27 -462.60 / -462.60 Lab / Micro Data 11/20/24 05:30 11/20/24 05:30 Labs: Laboratory Results - last 24 hr 11/19/24 12:57: POC Glucose 180 H 11/19/24 18:32: POC Glucose 142 H 11/20/24 05:06: POC Glucose 143 H 11/20/24 05:30: WBC 17.8 H, RBC 3.18 L, Hgb 10.2 L, Hct 28.7 L, MCV 90.3, MCH 32.1 H, MCHC 35.5, RDW Std Deviation 45.4 H, RDW Coeff of Panchito 13.6, Plt Count 192, MPV 9.8, Immature Gran % (Auto) 0.300, Neut % (Auto) 86.5 H, Lymph % (Auto) 3.9 L, [place] % (Auto) 9.1, Eos % (Auto) 0.0, Baso % (Auto) 0.2, Absolute Neuts (auto) 15.4 H, Absolute Lymphs (auto) 0.70 L, Nucleated RBC % 0, Differential Comment , Toxic Vacuolation 1+, Platelet Estimate ADEQUATE, RBC Morphology NORM C+C, Sodium 134, Potassium 3.9, Chloride 106, Carbon Dioxide 15.2 L, Anion Gap 13, BUN 27 H, Creatinine 1.29 H, Estim Creat Clear Calc 41.43 L, Est GFR (MDRD) Non-Af 47 L, BUN/Creatinine Ratio 20.9 H, Glucose 157 H, Calcium 7.8 Micro: Microbiology 11/19/24 08:25 Nasal Secretion MRSA (PCR) - Final 11/19/24 04:03 Mucosa - Nasopharyngeal Respiratory Panel (PCR) - Final 11/18/24 21:04 Mucosa - Nose SARS-CoV-2, Influenza & RSV (PCR) - Final Radiography Diagnostic Testing: Radiology Impression Echocardiogram 11/19/24 02:04 Interpretation Summary Technically difficult study with suboptimal images. Mild concentric left ventricular hypertrophy. The left ventricular ejection fraction is 65 %. Stage 1 diastolic dysfunction. Ordering Physician: Romeo Khan Referring Physician: QUINN ESPARZA Performed By: Agnieszka Brenner RCS Venous Doppler Study 11/19/24 04:21 Interpretation Summary Deep veins of the lower extremities are bilaterally patent and compressible segmentally. There is no evidence of deep vein thrombosis on either side. Valvular competence appears intact within the proximal deep venous systems bilaterally. The great saphenous veins appear bilaterally patent and compressible segmentally. Ordering Physician: Romeo Khan Referring Physician: Quinn Esparza Performed By: Amy Sidhu RVT Abdomen CT 11/19/24 15:18 IMPRESSION: 1. Acute colitis from the mid transverse colon through the sigmoid. 2. Mild-moderate ascites, which has increased. Reading Location: [facility] Chest CTA 11/19/24 15:18 IMPRESSION: No pulmonary embolism. 6.8 x 2.4 cm right pectoralis intramuscular hematoma with adjacent fat stranding. Similar in size when accounting for differences in measurement. Trace left pleural effusion. Mild centrilobular and paraseptal emphysema. Prominent mediastinal lymph nodes, largest right paratracheal node measuring 1.1 cm in short axis diameter. Stable. Trace perihepatic free fluid. Mild atherosclerosis with coronary artery calcifications. Degenerative changes of the spine with dextroscoliosis. Reading Location: [address] Physical Exam Const oriented x3 and no apparent distress GI GI Narrative: Decreased abdominal distention, softer, minimal tenderness to palpation in upper abdominal quadrants. Mild tenderness palpation lower abdominal quadrants. Assessment & Plan Assessment/Plan (1) Abnormal CT scan, colon: PLAN: Patient is 64-year-old female admitted to the ICU 2 days ago with concern for sepsis after a presentation with chest pain and significant shortness of breath. Additionally, CT imaging was completed showing concern for possible small bowel obstruction as well as a abrupt transition of the sigmoid colon concerning for possible focal colitis. Repeat CT imaging with enteral contrast (both p.o. and MS) yesterday showed no evidence of bowel obstruction and no focal narrowing of the colon. However, did confirm generalized appearance of colitis. Based on the distribution of the wall thickening and patient's presentation I am suspicious for an ischemic etiology. Since her admission patient's blood pressure has been stable as normal. She tolerated a diet advanced to clear liquids yesterday and her abdominal exam is improved today. She does describe some shifting tenderness which I believed to be more related to her stool burden. Given her clinical improvement recommend advance to transitional diet. Additionally counseled patient about the risks she is taking on with her continued tobacco habit and advised her to be more vigilant to her hydration status. Patient confirmed understanding of this information. Dion Brown MD General Surgery Endocrine Surgery Pager: [facility] [address] [place] [address], [address] [place] [id number] Office: [phone] Charges/Coding Visit Charges Inpatient E&M: 13338 Subs Hosp L2
--- NOTE | 2024-11-20 08:24 | PN.HOSP_ITS ---
Reason for Visit Chief Complaint: SOB, Wheezing and Diaphoresis. Objective Data Objective Data Vital Signs: Vital Signs Temp Pulse Resp BP Pulse Ox O2 Del Method O2 Flow Rate 99 F 98 27 H 126/58 H 97 Room Air 2 11/20/24 04:00 11/20/24 07:00 11/20/24 07:00 11/20/24 07:00 11/20/24 07:00 11/20/24 07:00 11/18/24 22:45 FiO2 28 11/18/24 21:15 Oxygen Flow Rate (L/min) 2 Oxygen Delivery Method Room Air Weight: 166 lb 0.129 oz Body Mass Index (BMI) 31.3 Intake & Output: Intake and Output for Last 24 Hours 11/18/24 11/19/24 11/20/24 23:59 23:59 23:59 Intake Total 3034.55 / 3034.55 3168.67 / 3174.27 87.40 / 87.40 Output Total 2024 / 2024 550 / 550 Balance 3034.55 / 3034.55 1143.67 / 1149.27 -462.60 / -462.60 Lab / Micro Data 11/20/24 05:30 11/20/24 05:30 Labs: Laboratory Results - last 24 hr 11/19/24 12:57: POC Glucose 180 H 11/19/24 18:32: POC Glucose 142 H 11/20/24 05:06: POC Glucose 143 H 11/20/24 05:30: WBC 17.8 H, RBC 3.18 L, Hgb 10.2 L, Hct 28.7 L, MCV 90.3, MCH 32.1 H, MCHC 35.5, RDW Std Deviation 45.4 H, RDW Coeff of Panchito 13.6, Plt Count 192, MPV 9.8, Immature Gran % (Auto) 0.300, Neut % (Auto) 86.5 H, Lymph % (Auto) 3.9 L, [place] % (Auto) 9.1, Eos % (Auto) 0.0, Baso % (Auto) 0.2, Absolute Neuts (auto) 15.4 H, Absolute Lymphs (auto) 0.70 L, Nucleated RBC % 0, Differential Comment , Toxic Vacuolation 1+, Platelet Estimate ADEQUATE, RBC Morphology NORM C+C, Sodium 134, Potassium 3.9, Chloride 106, Carbon Dioxide 15.2 L, Anion Gap 13, BUN 27 H, Creatinine 1.29 H, Estim Creat Clear Calc 41.43 L, Est GFR (MDRD) Non-Af 47 L, BUN/Creatinine Ratio 20.9 H, Glucose 157 H, Calcium 7.8 Micro: Microbiology 11/19/24 08:25 Nasal Secretion MRSA (PCR) - Final 11/19/24 04:03 Mucosa - Nasopharyngeal Respiratory Panel (PCR) - Final 11/18/24 21:04 Mucosa - Nose SARS-CoV-2, Influenza & RSV (PCR) - Final Radiography Diagnostic Testing: Radiology Impression Echocardiogram 11/19/24 02:04 Interpretation Summary Technically difficult study with suboptimal images. Mild concentric left ventricular hypertrophy. The left ventricular ejection fraction is 65 %. Stage 1 diastolic dysfunction. Ordering Physician: Romeo Khan Referring Physician: QUINN ESPARZA Performed By: Agnieszka Brenner RCS Venous Doppler Study 11/19/24 04:21 Interpretation Summary Deep veins of the lower extremities are bilaterally patent and compressible segmentally. There is no evidence of deep vein thrombosis on either side. Valvular competence appears intact within the proximal deep venous systems bilaterally. The great saphenous veins appear bilaterally patent and compressible segmentally. Ordering Physician: Romeo Khan Referring Physician: Quinn Esparza Performed By: Amy Sidhu RVT Abdomen CT 11/19/24 15:18 IMPRESSION: 1. Acute colitis from the mid transverse colon through the sigmoid. 2. Mild-moderate ascites, which has increased. Reading Location: [facility] Chest CTA 11/19/24 15:18 IMPRESSION: No pulmonary embolism. 6.8 x 2.4 cm right pectoralis intramuscular hematoma with adjacent fat stranding. Similar in size when accounting for differences in measurement. Trace left pleural effusion. Mild centrilobular and paraseptal emphysema. Prominent mediastinal lymph nodes, largest right paratracheal node measuring 1.1 cm in short axis diameter. Stable. Trace perihepatic free fluid. Mild atherosclerosis with coronary artery calcifications. Degenerative changes of the spine with dextroscoliosis. Reading Location: [address] Physical Exam Narrative Seen and examined Patient has right pectoralis muscle hematoma after several unsuccessful attempts on right subclavian vein CVC catheter and then it was inserted on left subclavian vein. Mild tenderness in right subclavian region. Levophed drip is on hold. Earlier, patient admitted with chief complaint of chest pain and shortness of breath and nausea. Chest pain was localized in midsternal, sharp and states that she felt like she could not breathe. No hypoxia. Mild tachypnea. Patient denies abdominal pain. Bowel obstruction was ruled out. She had a large formed brown-colored stool. Had intermittent abdominal pain Physical exam General: Alert, Oriented x3, Cooperative HEENT: Atraumatic, PERRLA, EOMI, Normocephalic. Oral: No Gingival or Mucosal Lesions/ Ulcerations Neck: Supple, No JVD, Negative Carotid Bruits Chest wall/Lungs: Bruise around right subclavian region with needle peres. Air entry diminished in bilateral lung bases. No crepitation/rhonchi Cardiovascular: Sinus rhythm, Normal S1,S2, No M/G/R Abdomen: Bowel Sounds sluggish, Soft, Non Tender, Non-Distended : Aguiar catheter dark urine. No renal angle tenderness. No suprapubic tenderness. Extremities: No edema, Capillary Refill Less than 3 Seconds Skin: No rashes, No breakdown Musculoskeletal: No Tenderness to Palpation of Joints or Extremities Neurological: Cranial nerves II-XII grossly intact, DTR 2+/4. No acute focal neurological deficit. Psych/Mental Status: Normal Affect, Appropriate. Assessment & Plan Assessment/Plan (1) COPD exacerbation: (2) Bronchitis: (3) Acute respiratory failure: QUALIFIERS: Respiratory failure complication: unspecified whether with hypoxia or hypercapnia Qualified Code(s): J96.00 - Acute respiratory failure, unspecified whether with hypoxia or hypercapnia (4) Shock circulatory: (5) Adrenal insufficiency: (6) Severe hypotension: (7) Hypothermia: QUALIFIERS: Encounter type: initial encounter Qualified Code(s): T68.XXXA - Hypothermia, initial encounter (8) Acidosis, lactic: (9) Acquired polycythemia vera: (10) Hypothyroidism: QUALIFIERS: Hypothyroidism type: unspecified Qualified Code(s): E 03.9 - Hypothyroidism, unspecified (11) Obesity (BMI 30.0-34.9): (12) NAFLD (nonalcoholic fatty liver disease): (13) Focal active colitis: (14) Duodenitis: (15) Elevated d-dimer: PLAN: Plan This is a 63-year-old female brought by EMS for shortness of breath complaint of chest pain and nausea and diaphoretic diaphoretic. As per ED physician, she denied chest patient. Complain of nonproductive cough with no history of VTE. Denies leg pain swelling discoloration 1. Acute hypoxic respiratory failure due to acute exacerbation of COPD requiring BiPAP: Chest CTA does not show evidence of PE but chronic fibroemphysematous pulmonary changes with mediastinal lymphadenopathy and soft tissue thickening in bilateral hilar regions, may represent lymphadenopathy or peribronchial infiltrates Empirically started on IV Zosyn. Patient is being managed on scheduled bronchodilator, IV Solu-Medrol, Mucinex, incentive spirometry and Pep. 11/20: Patient currently on room air. No respiratory distress and breathing is on baseline. 2. Undifferentiated Shock most likely hemorrhagic/distributive shock, less septic shock with Severe Hypotension of 72/25 mmHg, Severe Hypothermia of 94.4 ?F, Lactic Acidosis of 3 mmol/L and Leukocytosis of 13.9 K all present on admission: Patient on Levophed drip, to keep MAP more than 65 mmHg through left subclavian CVC catheter inserted in ED. Patient was on RAD hugger to raise core temperature. Most recent temperature 98.1 ?F. Lactic acid still elevated 3.0, 2.1 and 2.7. Echo is ordered. CT shows large right pectoralis muscle hematoma 3.9 x 8.4 x 9.1 cm with secondary mild displacement and edema of the right pectoralis muscle. Mild surrounding soft tissue edema. CT does not show significant consolidation but minimal bilateral basilar atelectatic changes, unchanged emphysema/chronic interstitial thickening and unchanged mildly enlarged mediastinal lymph nodes largest measuring 1.2 cm. Discussed with senior lead software engineer requesting consult as patient is on IV Levophed drip for shock 11/20: Currently Levophed drip is on hold. Patient was seen by vascular surgeon yesterday and currently not on antiplatelet or antithrombotic agent/DVT prophylaxis because of hematoma as mentioned above 3. Polycythemia with hemoglobin of 18.9 g/dL present on admission (suspected to be due to combination of chronic tobacco abuse and DENNIS) - Screen for SHONDA-2 mutation. Unclear whether it is true because previous hemoglobin was 13.8/40.5 in July 2020 but it was 18.9/55.1 on 11/18. Most recent 12.6/37.1% today. Patient has leukocytosis 21.4 increased from 13.9 and platelet count normal. 11/20: Hemoglobin dropped further to 10.2/28.7%. Platelet count 192K. Leukocytosis improving. 4. Suspicion of focal sigmoid colitis/ischemic colitis: Discussed with surgeon Dr. Brown on 11/19/[address] images was reviewed with him. CT imaging initially reported abnormal with abrupt transition of sigmoid colon concerning for possible focal colitis or concern/possible small bowel obstruction. Repeat CT imaging with p.o. and HI contrast showed no evidence of bowel obstruction and no focal narrowing of colon. There was concern of colitis and/or ischemic colitis. Currently on clear liquid. Bowel sound present. Subclinical hypothyroidism: Elevated TSH of 16.9, free T40.9, low normal 5. Obesity (class I); with BMI of 31.2 this admission plus NAFLD adding to the burden of disease outlined from #1 - #4 - Weight loss will be recommended. This complicates her case and may hamper recovery. 6. DM-2; of unknown control on metformin daily - Keep NPO for now. Hold metformin until further notice with elevated lactate. FSBS q. 6 hours plus lowest-intensity SSI. Check HgbA1c to objectively evaluate quality of diabetic control. 7. Essential hypertension; on lisinopril - Hold scheduled antihypertensives in light of #2. 8. Hyperlipidemia; on atorvastatin - Resume statin when patient can tolerate oral intake. 9. History of bilateral carotid artery stenosis; s/p Right CEA at [facility] (2012) - Noted. 10. PAD - Stable. Lower extremity Doppler ordered as D-dimer was critically high. 12. Schizophrenia and Depression; on thiothixene twice daily, buspirone 3 times daily, bupropion twice daily plus imipramine nightly - Hold oral agents at this time. 13. Chronic insomnia; on zolpidem nightly - Noted. 16. GERD; on pantoprazole - Resume PPI IV as outlined in #1. 17. OA; on ibuprofen: Discontinue ketorolac. Hold NSAIDs because of hematoma 18. DVT prophylaxis - hold Lovenox. Pharmacological prophylaxis contraindicated in view of large hematoma and right pectoralis muscle Clinical Impression(s) from Imaging Studies Chest X-Ray 11/18/24 20:50 IMPRESSION: No acute cardiopulmonary disease. Reading Location: [facility] Chest X-Ray 11/18/24 22:34 IMPRESSION: Left subclavian central venous catheter with tip at the lower SVC. Unchanged lung aeration. No pneumothorax or sizable pleural effusion. Reading Location: [facility] Chest CTA 11/18/24 22:41 IMPRESSION: No CT evidence of a pulmonary embolism. Mild chronic fibroemphysematous pulmonary changes, as described above. Mediastinal lymphadenopathy. Soft tissue thickening in the bilateral hilar regions may represent hilar lymphadenopathy or peribronchial infiltrates. Please correlate clinically for bronchitis. Moderate thoracic spondylosis with mild dextro convex scoliosis. Reading Location: [id number] Abdomen/Pelvis CT 11/19/24 00:03 IMPRESSION: 1. Abrupt narrowing of the proximal sigmoid colon with a short segment of wall thickening. This could represent focal colitis or a mucosal mass lesion. 2. Mild wall thickening of the duodenum with mild adjacent fat stranding, concerning for duodenitis. 3. Mild dilatation of the large and small bowel proximal to the focal narrowing in the proximal sigmoid colon, which could represent a low-grade partial small bowel obstruction. 4. Large amount of stool within the distal sigmoid colon and rectum. 5. Small hiatal hernia. 6. Moderate to severe thoracolumbar spondylosis with mild lumbar scoliosis. Reading Location: [id number] Echocardiogram 11/19/24 02:04 Interpretation Summary Technically difficult study with suboptimal images. Mild concentric left ventricular hypertrophy. The left ventricular ejection fraction is 65 %. Stage 1 diastolic dysfunction. Ordering Physician: Romeo Khan Referring Physician: QUINN ESPARZA Performed By: Agnieszka Brenner RCS Chest CT 11/19/24 03:46 IMPRESSION: Coronary artery calcification (CAC) is is present Acute soft tissue hematoma is noted underlying the right pectoralis muscle in the interim measuring 3.9 x 8.4 x 9.1 cm in its largest anteroposterior, transverse and craniocaudal dimensions respectively. Secondary mild displacement and edema of the right pectoralis muscle. Mild surrounding soft tissue edema. Unchanged mild bilateral basilar pleural thickening/effusions. Unchanged minimal bilateral basilar atelectatic pulmonary changes. Unchanged emphysema/chronic interstitial thickening. Unchanged mildly enlarged mediastinal lymph nodes with the largest measuring 1.2 cm. Chronic deformity of the axillary portion of the right 6th rib, unchanged. [facility] Charges/Coding Visit Charges Inpatient E&M: 96626 Subs Hosp L3
[2024-11-20] MEDS: LEVOTHYROXINE SODIUM 100 MCG VIAL 25 MCG IV (10:39)
[2024-11-20] MEDS: Nicotine (PBKC) 14 MG Patch TD (10:39)
[2024-11-20] MEDS: 0.9% Saline Lock 10 ML Syringe IV (10:40)
--- NOTE | 2024-11-20 17:59 | CON.PCM.CC_ITS ---
HPI Consult Data Date of Consult: 11/20/24 HPI Narrative HPI Narrative: NORMAN PARSON, is a 64 F who presents [ ] [facility] Medical History Nicotine use disorder Septic arthritis Elevated coronary artery calcium score Neck pain Bilateral carotid artery stenosis Snoring Peripheral arterial disease Fatty liver disease, nonalcoholic Major depressive disorder, recurrent episode Bradycardia Palpitations SOB (shortness of breath) Diabetic acetonemia COPD (chronic obstructive pulmonary disease) Hyperlipidemia Home Medications ?Medication ?Instructions ?Recorded ?Last Taken ?Type atorvastatin 20 mg tablet 20 mg PO QHS 12/22/17 Unknow n History lisinopril 5 mg tablet 5 mg PO DAILY 12/22/17 Unkno wn History metformin 500 mg tablet 500 mg PO DAILY 12/22/17 Unk nown History aspirin 81 mg tablet,delayed 81 mg PO QDAY 01/14/24 Un known History release (Adult Aspirin Regimen) bupropion HCl 150 mg tablet,12 hr 150 mg PO BID Unknown History sustained-release (Wellbutrin SR) buspirone 5 mg tablet 5 mg PO TID 01/14/24 Unknown History cyclobenzaprine 5 mg tablet 5 mg PO TID PRN 01/14/24 U nknown History fluticasone fur. 100 mcg-umeclid 1 inh inhalation QDAY 01/14/24 Unknown History 62.5 mcg-vilant 25 mcg inhalat.powder (Trelegy Ellipta) ibuprofen 800 mg tablet 800 mg PO Q8H PRN 01/14/24 U nknown History imipramine HCl 50 mg tablet 150 mg PO QHS 01/14/24 Unk nown History ondansetron HCl 4 mg tablet 4 mg PO Q8H PRN 01/14/24 U nknown History thiothixene 2 mg capsule 2 mg PO BID 01/14/24 Unknown History zolpidem 10 mg tablet (Ambien) 10 mg PO QHS PRN sleep 01/14/24 Unknown History melatonin 5 mg capsule mg PO PRN 01/21/24 Unknown H istory pantoprazole 40 mg tablet,delayed 40 mg PO DAILY #90 t abs 03/26/24 Unknown Rx release Allergy/AdvReac Type Severity Reaction Status Date / Time simvastatin Allergy Other Verified 11/18/24 21:07 Family History Mother Heart disease Father Diabetes Brother Parkinson's disease Surgical History History of arthroscopy of knee History of colonoscopy History of rectal polypectomy History of cardiac catheterization H/O carotid endarterectomy History of appendectomy Social History household members: children Smoking Status: Current every day smoker tobacco type: cigarettes alcohol intake: never substance use type: does not use caffeine: Yes Objective Data Objective Data Vital Signs: Vital Signs Last response 3 Temperature 37.7 C H 11/20/24 16:00 Temperature Source Temporal 11/20/24 16:00 Pulse Rate 101 H 11/20/24 17:00 Pulse Strength Normal (2+) 11/20/24 10:00 Respiratory Rate 25 H 11/20/24 17:00 Respiratory Effort Normal, Non-Labored 11/20/24 16:00 Respiratory Depth Normal 11/20/24 16:00 Respiratory Pattern Tachypnea 11/20/24 16:00 Blood Pressure 150/66 H 11/20/24 17:00 Blood Pressure Mean 94 11/20/24 17:00 Blood Pressure Source Monitor 11/20/24 17:00 Blood Pressure Position Semi-Fowlers 11/20/24 17:00 Blood Pressure Location Right Arm 11/20/24 17:00 Pulse Ox 91 11/20/24 17:00 Oxygen Delivery Method Room Air 11/20/24 17:00 Oxygen Flow Rate (L/min) 2 11/18/24 22:45 Fraction of Inspired Oxygen (FIO2) 28 11/18/24 21:15 I&O: I&O Last 24 Hours 3 11/19/24 11/20/24 11/20/24 23:59 11:59 23:59 Intake Total 1656.20 / 3174.27 137.40 / 137.40 0 / 137.40 Output Total 1549 550 / 1700 1150 / 1700 Balance 106.20 / 1149.27 -412.60 / -1562.60 -1150 / -1562.60 I&O: Total Stay 3 11/18/24 20:33 thru 11/20/24 17:00 Intake Total 6340.62 Output Total 3725 Balance 2615.62 Current Meds Ordered / Administered: Current meds ordered / Administered 3 Generic Name Dose Route Start Last Admin Trade Name Freq PRN Reason Stop Dose Admin Albuterol Sulfate 2.5 mg 11/19/24 02:04 Albuterol 2.5 Mg/3 Ml Vial.Neb. INHALATION Q2H PRN PRN SOB &/OR WHEEZING Enoxaparin Sodium 40 mg 11/19/24 10:00 11/19/24 10:10 Enoxaparin 40 Mg/0.4 Ml Syringe SC 40 mg On Hold: 11/19/24 13:57 DAILY SUNITA Administration Glucagon 1 mg 11/19/24 02:04 Glucagon 1 Mg/Ml Syringe IM X1 PRN HYPOGLYCEMIA Protocol Sodium Chloride 1,000 mls @ 15 mls/hr 11/18/24 23:15 11/19/24 20:53 IV 0 mls/hr .Q48H SUNITA Infusion Norepinephrine Bitartrate 8 mg 250 mls @ 9.375 mls/hr 11/18/24 22:00 11/20/24 17:00 / Sodium Chloride CONT INF 0 mcg/min .[id number] SUNITA 0 mls/hr Protocol Titration 5 MCG/MIN Piperacillin Sod/Tazobactam 50 mls @ 12.5 mls/hr 11/19/24 02:04 11/20/24 14:38 Sod 3.375 gm/ Sodium Chloride IV 12.5 mls/hr Q8 SUNITA Administration Azithromycin 500 mg/ Sodium 250 mls @ 250 mls/hr 11/19/24 02:04 11/19/24 21:31 Chloride IV Infused 2200 SUNITA Infusion Pantoprazole Sodium 40 mg/ 100 mls @ 330 mls/hr 11/19/24 02:04 11/19/24 20:54 Sodium Chloride IV Infused 2200 SUNITA Infusion Dextrose 250 mls @ 0 mls/hr 11/19/24 02:04 Dextrose 10%-Water IV .Q0M PRN HYPOGLYCEMIA Protocol As Directed Sodium Chloride 250 mls @ 15 mls/hr 11/19/24 20:20 11/20/24 09:12 IV 15 mls/hr .[id number] PRN Infusion Saline Flush Sodium Chloride 250 mls @ 15 mls/hr 11/19/24 20:20 IV .[id number] PRN Additional IVPB Infusion Insulin Human Lispro 0 unit 11/19/24 06:00 11/20/24 16:53 Insulin Lispro 100 Unit/Ml Insuln.Pen SC Not Given Q6 [facility] Protocol Levothyroxine Sodium 25 mcg 11/19/24 10:00 11/20/24 10:39 Levothyroxine Sodium 100 Mcg Vial IV 25 mcg DAILY SUNITA Administration Methylprednisolone Sodium Succinate 40 mg 11/19/24 14:00 11/20/24 14:38 Methylprednisolone Sod Succ 40 Mg/Ml Vial IV 40 mg Q8 SUNITA Administration Nicotine 14 mg 11/19/24 10:00 11/20/24 10:39 Nicotine (Pbkc) 14 Mg Patch TD 14 mg DAILY SUNITA Administration Ondansetron HCl 4 mg 11/19/24 02:04 Ondansetron 4 Mg/2 Ml Vial IV Q6H PRN PRN NAUSEA/VOMITING Sodium Chloride 10 - 40 ml 11/19/24 02:11 11/20/24 10:40 0.9% Saline Lock 10 Ml Syringe IV 40 ml UD PRN Administration SALINE FLUSH Sodium Chloride 10 - 40 ml 11/19/24 20:20 0.9% Saline Lock 10 Ml Syringe IV UD PRN SALINE FLUSH Lab / Micro Data 11/20/24 05:30 11/20/24 05:30 Labs: Laboratory Results - last 24 hr 11/19/24 18:32: POC Glucose 142 H 11/20/24 05:06: POC Glucose 143 H 11/20/24 05:30: WBC 17.8 H, RBC 3.18 L, Hgb 10.2 L, Hct 28.7 L, MCV 90.3, MCH 32.1 H, MCHC 35.5, RDW Std Deviation 45.4 H, RDW Coeff of Panchito 13.6, Plt Count 192, MPV 9.8, Immature Gran % (Auto) 0.300, Neut % (Auto) 86.5 H, Lymph % (Auto) 3.9 L, [place] % (Auto) 9.1, Eos % (Auto) 0.0, Baso % (Auto) 0.2, Absolute Neuts (auto) 15.4 H, Absolute Lymphs (auto) 0.70 L, Nucleated RBC % 0, Differential Comment , Toxic Vacuolation 1+, Platelet Estimate ADEQUATE, RBC Morphology NORM C+C, Sodium 134, Potassium 3.9, Chloride 106, Carbon Dioxide 15.2 L, Anion Gap 13, BUN 27 H, Creatinine 1.29 H, Estim Creat Clear Calc 41.43 L, Est GFR (MDRD) Non-Af 47 L, BUN/Creatinine Ratio 20.9 H, Glucose 157 H, Calcium 7.8 11/20/24 12:01: POC Glucose 123 H 11/20/24 16:51: POC Glucose 112 H Assessment and Plan . Assessment and plan: 64 yo obese female smoker admitted 11/19/24 w/ CP and dyspnea. Noted hypotension in ED requiring IVF and NE infusion CTA chest reveals emphysema but o/w unremarkable. CT A/P reveals e/o transverse and descending colitis. Lab significant for unremarkable LA. Modest leukocytosis. CX NGTD. She has received empiric IV ABX. Course also c/b CW hematoma following attempts at CVC She is currently breathing RA comfortably. BP WNL - NE has been weaned off. She is tolerating liquids po - still c/o some modest LAP Exam is largely unremarkable. No obvious wheezes, abdomen is soft and benign IMPRESSION 1. Suspected sepsis syndrome - improving 2. Suspected colitis 3. Tobacco use / emphysema 4. ASCVD 5. Chest wall hematoma - iatrogenic REC -empiric ABX -inhaled BD -would wean steroids off quickly -hold A/C for now -consider GI v CRS consultation We are available as needed. The entirety of this encounter was done via Telemedicine
--- NOTE | 2024-11-20 20:05 | CPS ---
Patient refused PAP therapy for night time use.
[2024-11-20] MEDS: Pantoprazole Sodium 40 MG in 0.9% Normal Saline (100mL MB+) 100 ML 330 MG IV (21:14)
[2024-11-20] MEDS: Azithromycin 500 MG in 0.9% Normal Saline (250mL Bag) 250 ML 250 MG IV (21:18)
[2024-11-21] VITALS (12 sets, daily range): BP systolic 134–166; BP diastolic 60–79; PULSE 88–101; RESP 18–23; TEMP 36.7–37.2; O2SAT 92–100; BMI 32.5
[2024-11-21 03:43] LABS: Hematocrit 24.1 % (37-47); Hemoglobin 8.7 g/dL (12.0-15.0); Immature Granulocytes Count 0.020 X10^3/uL (0.0-0.0); Mean Corp Hgb Conc 36.1 g/dL (32-36); Mean Corpuscular Volume 88.9 fL (81-99); Mean Platelet Vol. 9.9 fl (6.2-12.0); NRBC Flagged by Analyzer 0 % (0-5); POSITIVE DIFFERENTIAL YES; POSITIVE MORPHOLOGY YES; Platelet Count 151 K/mm3 (150-450); RBC Distribution Width CV 13.7 % (11.6-14.6); RBC Distribution Width SD 44.9 fl (35.1-43.9); Red Blood Count 2.71 M/mm3 (4.2-5.4); White Blood Count 11.3 K/mm3 (4.4-11.0)
[2024-11-21 03:51] LABS: Differential Indicated SCAN CRITERIA MET
[2024-11-21 04:25] LABS: Anion Gap 11 (5-15); BUN 17 mg/dL (4-19); BUN/Creat Ratio 21.2 RATIO (10-20); Calcium,Total 7.9 mg/dL (7.6-11.0); Carbon Dioxide 17.7 mmol/L (21.0-32.0); Chloride 105 mmol/L (98-108); Estimated Creatinine Clearance 65.18 ml/min (50-250); Glucose 137 mg/dL (70-99); Potassium 3.6 mmol/L (3.3-5.1)
[2024-11-21 04:28] LABS: Differential Comment SCANNED
[2024-11-21] MEDS: Piperacil/Tazobactam 3.375 GM in 0.9% Normal Saline (50mL MB+) 50 ML IV ×3 (05:34→21:13)
--- NOTE | 2024-11-21 08:33 | PN.SURG_ITS ---
Subjective Subjective Patient seen and examined during AM rounds. She is found sitting out of bed in the chair. She states she is feeling somewhat better today. She denies any difficulty with tolerating diet. She confirms bedside nursing's report that she had another loose bowel movement today. She denies any abdominal discomfort except for when coughing. Objective Data Objective Data Vital Signs: Vital Signs Temp Pulse Resp BP Pulse Ox O2 Del Method O2 Flow Rate 98.9 F 92 19 H 160/77 H 94 Nasal Cannula 2 11/21/24 08:00 11/21/24 08:00 11/21/24 08:00 11/21/24 08:00 11/21/24 08:00 11/21/24 08:00 11/21/24 08:00 FiO2 28 11/18/24 21:15 Oxygen Flow Rate (L/min) 2 Oxygen Delivery Method Nasal Cannula Weight: 172 lb 9.951 oz Body Mass Index (BMI) 32.5 Intake & Output: Intake and Output for Last 24 Hours 11/19/24 11/20/24 11/21/24 23:59 23:59 23:59 Intake Total 3168.67 / 3174.27 537.40 / 537.40 414.25 / 414.25 Output Total 5 / 2024 1700 / 2200 900 / 900 Balance 1143.67 / 1149.27 -1162.60 / -1662.60 -485.75 / -485.75 Lab / Micro Data 11/21/24 03:35 11/21/24 03:35 Labs: Laboratory Results - last 24 hr 11/20/24 12:01: POC Glucose 123 H 11/20/24 16:51: POC Glucose 112 H 11/20/24 23:35: POC Glucose 127 H 11/21/24 03:35: WBC 11.3 H, RBC 2.71 L, Hgb 8.7 L, Hct 24.1 L, MCV 88.9, MCH 32.1 H, MCHC 36.1 H, RDW Std Deviation 44.9 H, RDW Coeff of Panchito 13.7, Plt Count 151, MPV 9.9, Immature Gran % (Auto) 0.200, Neut % (Auto) 89.5 H, Lymph % (Auto) 3.9 L, [place] % (Auto) 6.2, Eos % (Auto) 0.0, Baso % (Auto) 0.2, Absolute Neuts (auto) 10.1 H, Absolute Lymphs (auto) 0.44 L, Nucleated RBC % 0, Differential Comment SCANNED, Sodium 133, Potassium 3.6, Chloride 105, Carbon Dioxide 17.7 L, Anion Gap 11, BUN 17, Creatinine 0.82, Estim Creat Clear Calc 65.18, Est GFR (MDRD) Non-Af 80, BUN/Creatinine Ratio 21.2 H, Glucose 137 H, Calcium 7.9 11/21/24 05:33: POC Glucose 116 H Micro: Microbiology 11/18/24 21:40 Blood Culture (Wb) - Anticubital Right Blood Culture - Preliminary No growth in 48 hours. 11/18/24 21:10 Blood Culture (Wb) - Anticubital Left Blood Culture - Preliminary No growth in 48 hours. 11/19/24 08:25 Nasal Secretion MRSA (PCR) - Final 11/19/24 04:03 Mucosa - Nasopharyngeal Respiratory Panel (PCR) - Final 11/18/24 21:04 Mucosa - Nose SARS-CoV-2, Influenza & RSV (PCR) - Final Physical Exam Const oriented x3 and no apparent distress Resp normal respiratory effort GI GI Narrative: Mildly distended, soft, nontender palpation x 4 quadrants Assessment & Plan Assessment/Plan (1) Abnormal CT scan, colon: PLAN: Patient is 64-year-old female admitted to the ICU 2 days ago with concern for sepsis after a presentation with chest pain and significant shortness of breath. Additionally, CT imaging was completed showing concern for possible small bowel obstruction as well as a abrupt transition of the sigmoid colon concerning for possible focal colitis. Repeat CT imaging with enteral contrast (both p.o. and [place]) yesterday showed no evidence of bowel obstruction and no focal narrowing of the colon. However, did confirm generalized appearance of colitis. Based on the distribution of the wall thickening and patient's presentation I am suspicious for an ischemic etiology. Patient's blood pressure has remained normal to slightly high. She reports tolerance of her diet. She is experiencing ongoing bowel activity but nursing reported that the last stool was somewhat darker. She is not experiencing any abdominal discomfort and her abdominal exam is benign. Given the finding of a declining hemoglobin and reports of potentially darker stool I have requested a Hemoccult study. At this point find no indication to pursue inpatient colonoscopy, but we will continue to watch closely as this may change depending on the trend of her hemoglobin and the result of this testing. Would favor engaging gastroenterology if this does appear to be the source of patient's anemia (I was not consult directly for management of patient's chest wall hematoma but I did examine this today and this appears to be stable/not expanding). Dion Brown MD General Surgery Endocrine Surgery Pager: [facility] [address] [place] [address], [facility], [address] [place] [address] Office: [phone] Charges/Coding Visit Charges Inpatient E&M: 34738 Subs Hosp L2
--- NOTE | 2024-11-21 08:39 | PCM.PN.HOSP ---
Reason for Visit Chief Complaint: SOB, Wheezing and Diaphoresis. Objective Data Objective Data Vital Signs: Vital Signs Temp Pulse Resp BP Pulse Ox O2 Del Method O2 Flow Rate 98.9 F 92 19 H 160/77 H 94 Nasal Cannula 2 11/21/24 08:00 11/21/24 08:00 11/21/24 08:00 11/21/24 08:00 11/21/24 08:00 11/21/24 08:00 11/21/24 08:00 FiO2 28 11/18/24 21:15 Oxygen Flow Rate (L/min) 2 Oxygen Delivery Method Nasal Cannula Weight: 172 lb 9.951 oz Body Mass Index (BMI) 32.5 Intake & Output: Intake and Output for Last 24 Hours 11/19/24 11/20/24 11/21/24 23:59 23:59 23:59 Intake Total 3168.67 / 3174.27 537.40 / 537.40 414.25 / 414.25 Output Total 2024 / 2024 1700 / 2200 900 / 900 Balance 1143.67 / 1149.27 -1162.60 / -1662.60 -485.75 / -485.75 Lab / Micro Data 11/21/24 03:35 11/21/24 03:35 Labs: Laboratory Results - last 24 hr 11/20/24 12:01: POC Glucose 123 H 11/20/24 16:51: POC Glucose 112 H 11/20/24 23:35: POC Glucose 127 H 11/21/24 03:35: WBC 11.3 H, RBC 2.71 L, Hgb 8.7 L, Hct 24.1 L, MCV 88.9, MCH 32.1 H, MCHC 36.1 H, RDW Std Deviation 44.9 H, RDW Coeff of Panchito 13.7, Plt Count 151, MPV 9.9, Immature Gran % (Auto) 0.200, Neut % (Auto) 89.5 H, Lymph % (Auto) 3.9 L, [place] % (Auto) 6.2, Eos % (Auto) 0.0, Baso % (Auto) 0.2, Absolute Neuts (auto) 10.1 H, Absolute Lymphs (auto) 0.44 L, Nucleated RBC % 0, Differential Comment SCANNED, Sodium 133, Potassium 3.6, Chloride 105, Carbon Dioxide 17.7 L, Anion Gap 11, BUN 17, Creatinine 0.82, Estim Creat Clear Calc 65.18, Est GFR (MDRD) Non-Af 80, BUN/Creatinine Ratio 21.2 H, Glucose 137 H, Calcium 7.9 11/21/24 05:33: POC Glucose 116 H Micro: Microbiology 11/18/24 21:40 Blood Culture (Wb) - Anticubital Right Blood Culture - Preliminary No growth in 48 hours. 11/18/24 21:10 Blood Culture (Wb) - Anticubital Left Blood Culture - Preliminary No growth in 48 hours. 11/19/24 08:25 Nasal Secretion MRSA (PCR) - Final 11/19/24 04:03 Mucosa - Nasopharyngeal Respiratory Panel (PCR) - Final 11/18/24 21:04 Mucosa - Nose SARS-CoV-2, Influenza & RSV (PCR) - Final Physical Exam Narrative Seen and examined Patient off Levophed drip for more than 24 hours. Right chest wall hematoma minimally to no tenderness. Right shoulder/lateral axillary region mild bruise. Left subclavian CVC catheter. No chest pain Tolerated transitional diet for Earlier, patient admitted with chief complaint of chest pain and shortness of breath and nausea. Chest pain was localized in midsternal, sharp and states that she felt like she could not breathe. Patient denies abdominal pain. Bowel obstruction was ruled out. She had a large formed brown-colored stool. Physical exam General: Alert, Oriented x3, Cooperative HEENT: Atraumatic, PERRLA, EOMI, Normocephalic. Oral: No Gingival or Mucosal Lesions/ Ulcerations Neck: Supple, No JVD, Negative Carotid Bruits Chest wall/Lungs: Bruise around right subclavian region with needle peres with subcutaneous bruise. Air entry diminished in bilateral lung bases. No crepitation/rhonchi Cardiovascular: Sinus rhythm, Normal S1,S2, No M/G/R Abdomen: Bowel Sounds sluggish, Soft, Non Tender, Non-Distended : Aguiar catheter dark urine. No renal angle tenderness. No suprapubic tenderness. Extremities: No edema, Capillary Refill Less than 3 Seconds Skin: No rashes, No breakdown Musculoskeletal: No Tenderness to Palpation of Joints or Extremities Neurological: Cranial nerves II-XII grossly intact, DTR 2+/4. No acute focal neurological deficit. Psych/Mental Status: Normal Affect, Appropriate. Assessment & Plan Assessment/Plan (1) COPD exacerbation: (2) Bronchitis: (3) Acute respiratory failure: QUALIFIERS: Respiratory failure complication: unspecified whether with hypoxia or hypercapnia Qualified Code(s): J96.00 - Acute respiratory failure, unspecified whether with hypoxia or hypercapnia (4) Shock circulatory: (5) Adrenal insufficiency: (6) Severe hypotension: (7) Hypothermia: QUALIFIERS: Encounter type: initial encounter Qualified Code(s): T68.XXXA - Hypothermia, initial encounter (8) Acidosis, lactic: (9) Acquired polycythemia vera: (10) Hypothyroidism: QUALIFIERS: Hypothyroidism type: unspecified Qualified Code(s): E03.9 - Hypothyroidism, unspecified (11) Obesity (BMI 30.0-34.9): (12) NAFLD (nonalcoholic fatty liver disease): (13) Focal active colitis: (14) Duodenitis: (15) Elevated d-dimer: PLAN: Plan This is a 63-year-old female brought by EMS for shortness of breath complaint of chest pain and nausea and diaphoretic diaphoretic. As per ED physician, she denied chest patient. Complain of nonproductive cough with no history of VTE. Denies leg pain swelling discoloration 1. Acute hypoxic respiratory failure due to acute exacerbation of COPD requiring BiPAP: Chest CTA does not show evidence of PE but chronic fibroemphysematous pulmonary changes with mediastinal lymphadenopathy and soft tissue thickening in bilateral hilar regions, may represent lymphadenopathy or peribronchial infiltrates Empirically started on IV Zosyn. Patient is being managed on scheduled bronchodilator, IV Solu-Medrol, Mucinex, incentive spirometry and Pep.. 11/21: Patient on 2 L of oxygen. IV Solu-Medrol changed to prednisone from tomorrow. Continue rest of the treatment. Incentive spirometry encouraged. 2. Undifferentiated Shock most likely hemorrhagic/distributive shock, less septic shock with Severe Hypotension of 72/25 mmHg, Severe Hypothermia of 94.4 ?F, Lactic Acidosis of 3 mmol/L and Leukocytosis of 13.9 K all present on admission: Patient on Levophed drip, to keep MAP more than 65 mmHg through left subclavian CVC catheter inserted in ED. Patient was on RAD hugger to raise core temperature. Most recent temperature 98.1 ?F. Lactic acid still elevated 3.0, 2.1 and 2.7. Echo is ordered. CT shows large right pectoralis muscle hematoma 3.9 x 8.4 x 9.1 cm with secondary mild displacement and edema of the right pectoralis muscle. Mild surrounding soft tissue edema. CT does not show significant consolidation but minimal bilateral basilar atelectatic changes, unchanged emphysema/chronic interstitial thickening and unchanged mildly enlarged mediastinal lymph nodes largest measuring 1.2 cm. Discussed with [employer] dried salt requesting consult as patient is on IV Levophed drip for shock 11/21: Shock has resolved. Patient off Levophed drip for more than 24 hours. Downgrade to PCU patient had 3 days of IV Zosyn and Zithromax. Respiratory panel, MRSA PCR negative. Blood culture negative for more than 48 hours. Continue IV Zosyn to cover peribronchial/interstitial pneumonia and possible duodenitis/colitis. 3. Polycythemia with hemoglobin of 18.9 g/dL present on admission (suspected to be due to combination of chronic tobacco abuse and DENNIS) compounding #1 & #2 - Screen for SHONDA-2 mutation. Unclear whether it is true because previous hemoglobin was 13.8/40.5 in July 2020 but it was 18.9/55.1 on 11/18. Most recent 12.6/37.1% today. Patient has leukocytosis 21.4 increased from 13.9 and platelet count normal. 11/21: Acute anemia due to blood loss from right pectoralis muscle hematoma: H&H 8.7/24.1%. Platelet count 151K. No antithrombotic or antiplatelet agent. TAM, present on admission: Probably, from shock, prerenal: Patient baseline creatinine around 0.8-1.0. Came with 1.36 point of 1.57 now back to baseline 0.82. TAM resolved 4. Subclinical hypothyroidism: Elevated TSH of 16.9, free T40.9, low normal Change IV levothyroxine to oral. 5. Obesity (class I); with BMI of 31.2 this admission plus NAFLD adding to the burden of disease outlined from #1 - #4 - Weight loss will be recommended. This complicates her case and may hamper recovery. 6. DM-2; of unknown control on metformin daily - Keep NPO for now. Hold metformin until further notice with elevated lactate. FSBS q. 6 hours plus lowest-intensity SSI. Check HgbA1c to objectively evaluate quality of diabetic control. 7. Essential hypertension; on lisinopril - Hold scheduled antihypertensives in light of #2. 8. Hyperlipidemia; on atorvastatin - Resume statin when patient can tolerate oral intake. 9. History of bilateral carotid artery stenosis; s/p Right CEA at [facility] (2012) - Noted. 10. PAD - Stable. Lower extremity Doppler ordered as D-dimer was critically high. 12. Schizophrenia and Depression; on thiothixene twice daily, buspirone 3 times daily, bupropion twice daily plus imipramine nightly - Hold oral agents at this time. 13. Chronic insomnia; on zolpidem nightly - Noted. 16. GERD; on pantoprazole - Resume PPI IV as outlined in #1. 17. OA; on ibuprofen: Discontinue ketorolac. Hold NSAIDs because of hematoma 18. DVT prophylaxis - hold Lovenox. Pharmacological prophylaxis contraindicated in view of large hematoma and right pectoralis muscle Clinical Impression(s) from Imaging Studies Chest X-Ray 11/18/24 20:50 IMPRESSION: No acute cardiopulmonary disease. Reading Location: [facility] Chest X-Ray 11/18/24 22:34 IMPRESSION: Left subclavian central venous catheter with tip at the lower SVC. Unchanged lung aeration. No pneumothorax or sizable pleural effusion. Reading Location: [facility] Chest CTA 11/18/24 22:41 IMPRESSION: No CT evidence of a pulmonary embolism. Mild chronic fibroemphysematous pulmonary changes, as described above. Mediastinal lymphadenopathy. Soft tissue thickening in the bilateral hilar regions may represent hilar lymphadenopathy or peribronchial infiltrates. Please correlate clinically for bronchitis. Moderate thoracic spondylosis with mild dextro convex scoliosis. Reading Location: [id number] Abdomen/Pelvis CT 11/19/24 00:03 IMPRESSION: 1. Abrupt narrowing of the proximal sigmoid colon with a short segment of wall thickening. This could represent focal colitis or a mucosal mass lesion. 2. Mild wall thickening of the duodenum with mild adjacent fat stranding, concerning for duodenitis. 3. Mild dilatation of the large and small bowel proximal to the focal narrowing in the proximal sigmoid colon, which could represent a low-grade partial small bowel obstruction. 4. Large amount of stool within the distal sigmoid colon and rectum. 5. Small hiatal hernia. 6. Moderate to severe thoracolumbar spondylosis with mild lumbar scoliosis. Reading Location: [id number] Echocardiogram 11/19/24 02:04 Interpretation Summary Technically difficult study with suboptimal images. Mild concentric left ventricular hypertrophy. The left ventricular ejection fraction is 65 %. Stage 1 diastolic dysfunction. Ordering Physician: Romeo Khan Referring Physician: QUINN SWANSON Performed By: Agnieszka Brenner RCS Chest CT 11/19/24 03:46 IMPRESSION: Coronary artery calcification (CAC) is is present Acute soft tissue hematoma is noted underlying the right pectoralis muscle in the interim measuring 3.9 x 8.4 x 9.1 cm in its largest anteroposterior, transverse and craniocaudal dimensions respectively. Secondary mild displacement and edema of the right pectoralis muscle. Mild surrounding soft tissue edema. Unchanged mild bilateral basilar pleural thickening/effusions. Unchanged minimal bilateral basilar atelectatic pulmonary changes. Unchanged emphysema/chronic interstitial thickening. Unchanged mildly enlarged mediastinal lymph nodes with the largest measuring 1.2 cm. Chronic deformity of the axillary portion of the right 6th rib, unchanged. [facility] Charges/Coding Visit Charges Inpatient E&M: 30845 Subs Hosp L3
[2024-11-21] MEDS: 0.9% Saline Lock 10 ML Syringe IV (21:13)
[2024-11-22] VITALS (10 sets, daily range): BP systolic 124–150; BP diastolic 65–78; PULSE 4–105; RESP 16–18; TEMP 36.6–37.2; O2SAT 88–97; BMI 31.2
[2024-11-22] MEDS: Piperacil/Tazobactam 3.375 GM in 0.9% Normal Saline (50mL MB+) 50 ML IV ×3 (05:12→21:06)
[2024-11-22 05:53] LABS: Hematocrit 26.8 % (37-47); Hemoglobin 9.6 g/dL (12.0-15.0); Immature Granulocytes Count 0.110 X10^3/uL (0.0-0.0); Mean Corp Hgb Conc 35.8 g/dL (32-36); Mean Corpuscular Volume 88.4 fL (81-99); Mean Platelet Vol. 10.2 fl (6.2-12.0); NRBC Flagged by Analyzer 0 % (0-5); POSITIVE MORPHOLOGY YES; Platelet Count 191 K/mm3 (150-450); RBC Distribution Width CV 13.5 % (11.6-14.6); RBC Distribution Width SD 43.9 fl (35.1-43.9); Red Blood Count 3.03 M/mm3 (4.2-5.4); White Blood Count 12.7 K/mm3 (4.4-11.0)
[2024-11-22 05:57] LABS: Differential Indicated SCAN CRITERIA MET
[2024-11-22 06:17] LABS: Anion Gap 10 (5-15); BUN 17 mg/dL (4-19); BUN/Creat Ratio 23.2 RATIO (10-20); Calcium,Total 8.4 mg/dL (7.6-11.0); Carbon Dioxide 20.0 mmol/L (21.0-32.0); Chloride 104 mmol/L (98-108); Estimated Creatinine Clearance 73.12 ml/min (50-250); Glucose 125 mg/dL (70-99); Potassium 3.5 mmol/L (3.3-5.1)
[2024-11-22 06:56] LABS: Differential Comment SCANNED
--- NOTE | 2024-11-22 08:28 | PCM.PN.SRG ---
Subjective Subjective Patient evaluated resting comfortably in bed. She denies any abdominal pain, nausea or vomiting. She notes passing flatus. She had bowel movements yesterday. No bowel movements today yet. Objective Data Objective Data Vital Signs: Vital Signs Temp Pulse Resp BP Pulse Ox O2 Del Method O2 Flow Rate 98.8 F 99 16 124/70 H 94 Nasal Cannula 3 11/22/24 03:10 11/22/24 03:10 11/22/24 03:10 11/22/24 03:10 11/22/24 03:10 11/22/24 07:44 11/22/24 03:10 FiO2 28 11/18/24 21:15 Oxygen Flow Rate (L/min) 3 Oxygen Delivery Method Nasal Cannula Weight: 165 lb 9.074 oz Body Mass Index (BMI) 31.2 Intake & Output: Intake and Output for Last 24 Hours 11/20/24 11/21/24 11/22/24 23:59 23:59 23:59 Intake Total 537.40 / 537.40 526.75 / 586.75 110 / 110 Output Total 1700 / 2200 1100 / 1100 0 / 0 Balance -1162.60 / -1662.60 -573.25 / -513.25 110 / 110 Lab / Micro Data 11/22/24 04:50 11/22/24 04:50 Labs: Laboratory Results - last 24 hr 11/21/24 11:18: POC Glucose 154 H 11/21/24 17:18: POC Glucose 133 H 11/21/24 21:12: POC Glucose 114 H 11/22/24 04:50: WBC 12.7 H, RBC 3.03 L, Hgb 9.6 L, Hct 26.8 L, MCV 88.4, MCH 31.7, MCHC 35.8, RDW Std Deviation 43.9, RDW Coeff of Panchito 13.5, Plt Count 191, MPV 10.2, Immature Gran % (Auto) 0.900, Neut % (Auto) 83.0 H, Lymph % (Auto) 7.9 L, [place] % (Auto) 7.4, Eos % (Auto) 0.5, Baso % (Auto) 0.3, Absolute Neuts (auto) 10.5 H, Absolute Lymphs (auto) 1.00, Nucleated RBC % 0, Differential Comment SCANNED, Sodium 134, Potassium 3.5, Chloride 104, Carbon Dioxide 20.0 L, Anion Gap 10, BUN 17, Creatinine 0.73, Estim Creat Clear Calc 73.12, Est GFR (MDRD) Non-Af 92, BUN/Creatinine Ratio 23.2 H, Glucose 125 H, Calcium 8.4 Micro: Microbiology 11/18/24 21:40 Blood Culture (Wb) - Anticubital Right Blood Culture - Preliminary No growth in 48 hours. 11/18/24 21:10 Blood Culture (Wb) - Anticubital Left Blood Culture - Preliminary No growth in 48 hours. 11/19/24 08:25 Nasal Secretion MRSA (PCR) - Final 11/19/24 04:03 Mucosa - Nasopharyngeal Respiratory Panel (PCR) - Final 11/18/24 21:04 Mucosa - Nose SARS-CoV-2, Influenza & RSV (PCR) - Final Physical Exam GI GI Narrative: Abdomen- soft, nontender. Assessment & Plan Assessment/Plan (1) Abnormal CT scan, colon: PLAN: I am following this patient in conjunction with Dr. Brown. He has independently evaluated this patient. Labs reviewed No further dark stools per patient Recommend outpatient colonoscopy with Dr. Brown or Dr. Lanza (previous c-scope was by him) We will follow this patient as needed From surgical standpoint, patient is ready for D/C Charges/Coding Visit Charges Inpatient E&M: 72332 Subs Hosp L2
--- NOTE | 2024-11-22 09:34 | PN.HOSP_ITS ---
Reason for Visit Chief Complaint: SOB, Wheezing and Diaphoresis. Subjective Subjective Patient is a 63-year-old lady who presented with shortness of breath and assessment of acute hypoxic respiratory failure secondary to COPD with acute exacerbation made started on noninvasive ventilation admitted to the intensive care unit stabilized and later transferred to PCU Objective Data Objective Data Vital Signs: Vital Signs Temp Pulse Resp BP Pulse Ox O2 Del Method O2 Flow Rate 98.1 F 101 H 18 143/78 H 97 Nasal Cannula 3 11/22/24 09:06 11/22/24 09:06 11/22/24 09:06 11/22/24 09:06 11/22/24 09:06 11/22/24 09:06 11/22/24 09:06 FiO2 28 11/18/24 21:15 Oxygen Flow Rate (L/min) 3 Oxygen Delivery Method Nasal Cannula Weight: 75.1 kg Body Mass Index (BMI) 31.2 Intake & Output: Intake and Output for Last 24 Hours 11/20/24 11/21/24 11/22/24 23:59 23:59 23:59 Intake Total 537.40 / 537.40 526.75 / 586.75 160 / 160 Output Total 1700 / 2200 1100 / 1100 0 / 0 Balance -1162.60 / -1662.60 -573.25 / -513.25 160 / 160 Lab / Micro Data 11/22/24 04:50 11/22/24 04:50 Labs: Laboratory Results - last 24 hr 11/21/24 11:18: POC Glucose 154 H 11/21/24 17:18: POC Glucose 133 H 11/21/24 21:12: POC Glucose 114 H 11/22/24 04:50: WBC 12.7 H, RBC 3.03 L, Hgb 9.6 L, Hct 26.8 L, MCV 88.4, MCH 31.7, MCHC 35.8, RDW Std Deviation 43.9, RDW Coeff of Panchito 13.5, Plt Count 191, MPV 10.2, Immature Gran % (Auto) 0.900, Neut % (Auto) 83.0 H, Lymph % (Auto) 7.9 L, [place] % (Auto) 7.4, Eos % (Auto) 0.5, Baso % (Auto) 0.3, Absolute Neuts (auto) 10.5 H, Absolute Lymphs (auto) 1.00, Nucleated RBC % 0, Differential Comment SCANNED, Sodium 134, Potassium 3.5, Chloride 104, Carbon Dioxide 20.0 L, Anion Gap 10, BUN 17, Creatinine 0.73, Estim Creat Clear Calc 73.12, Est GFR (MDRD) Non-Af 92, BUN/Creatinine Ratio 23.2 H, Glucose 125 H, Calcium 8.4 Micro: Microbiology 11/18/24 21:40 Blood Culture (Wb) - Anticubital Right Blood Culture - Preliminary No growth in 48 hours. 11/18/24 21:10 Blood Culture (Wb) - Anticubital Left Blood Culture - Preliminary No growth in 48 hours. 11/19/24 08:25 Nasal Secretion MRSA (PCR) - Final 11/19/24 04:03 Mucosa - Nasopharyngeal Respiratory Panel (PCR) - Final 11/18/24 21:04 Mucosa - Nose SARS-CoV-2, Influenza & RSV (PCR) - Final Physical Exam Narrative GENERAL: cooperative HEENT: Atraumatic; normocephalic EYES; Anicteric, Normal Conjunctiva NECK; supple, normal thyroid, RESPIRATORY: Diminished to auscultation CARDIOVASCULAR: Regular S1 S2, GI: soft, normoactive bowel sounds, : No Renal angle tenderness; EXTREMITIES: No edema, no clubbing, MUSCULOSKELETAL: no muscle wasting NEURO: Awake; no lateralizing signs. SKIN: Extensive bruising left upper chest PSYCH; Flat affect Assessment & Plan Assessment/Plan (1) Hematoma of right chest wall: (2) Duodenitis: (3) Acute respiratory failure: QUALIFIERS: Respiratory failure complication: unspecified whether with hypoxia or hypercapnia Qualified Code(s): J96.00 - Acute respiratory failure, unspecified whether with hypoxia or hypercapnia (4) Bronchitis: (5) Hypothyroidism: QUALIFIERS: Hypothyroidism type: unspecified Qualified Code(s): E 03.9 - Hypothyroidism, unspecified PLAN: Plan Patient is a 63-year-old lady who presented with shortness of breath and assessment of acute hypoxic respiratory failure secondary to COPD with acute exacerbation made started on noninvasive ventilation admitted to the intensive care unit stabilized and later transferred to PCU 1. Acute hypoxic respiratory failure ? Secondary to COPD with acute exacerbation. 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 Patient managed with broad-spectrum antibiotic therapy with Zosyn as well as Solu-Medrol. Patient was managed on noninvasive ventilation BiPAP which has since been weaned off 2. Hemorrhagic shock ? Patient did develop huge hematoma in the pectoralis muscle following insertion of subclavian CVC. Patient was managed in the ICU with IV fluid as well as Levophed which has since been weaned off 3. Left upper chest hematoma ? Appears stable 4. Anemia ? Secondary to acute blood loss monitoring H&H and transfuse if patient becomes symptomatic or hemoglobin falls below 7 5.Polycythemia ? Which was present on admission with hemoglobin of 18.9 this was thought to be secondary to chronic hypoxia from COPD 6. Acute kidney injury ? Patient creatinine on admission was 1.36. At 1.57 down to 0.73 as of today 7. Acute colitis ? CT demonstrated abrupt narrowing of the proximal sigmoid colon with a short segment of wall thickening. This could represent focal colitis or a mucosal mass lesion. Plans for patient to follow-up with primary care physician to be referred for outpatient colonoscopy 8. Duodenitis ? On PPI 9. Hiatal hernia with GERD symptoms ? Patient is on PPI 10. Subclinical hypothyroidism ? Patient started on levothyroxine 11. Diabetes mellitus type 2 ? Patient is on metformin held on admission placed on Accu-Cheks ACHS with sliding scale coverage 12. Schizoaffective disorder -On thiothixene twice daily, buspirone 3 times daily, bupropion twice daily plus imipramine nightly. Held on admission and resumed 13. Dyslipidemia ?Patient is on statin therapy, continued at home dose 14. Peripheral arterial disease ? With history of right CEA 15. Essential hypertension ? Patient is on lisinopril held on admission given hypotension as well as worsening kidney function 16. Degenerative joint disease ? CT demonstrated Moderate to severe thoracolumbar spondylosis with mild lumbar scoliosis with mild dextroconvex scoliosis 17. Physical deconditioning ? Requested for PT OT eval and social science instructor to assist with discharge planning 18. Tobacco dependence ? Counseled on cessation, offered nicotine patch for tobacco cravings 19. DVT prophylaxis Bilateral SCDs Time spent in the patient's overall evaluation,decision-making process, review of diagnostic data, adjustment of management, discussion with other providers, nursing nursing and ancillary staff involved in patient's care documentation, 40 Minutes Charges/Coding Visit Charges Inpatient E&M: 99330 Subs Hosp L2
--- NOTE | 2024-11-22 09:46 | CASEMGMT ---
Social Work SW spoke with the patient and she reported she is not interested in completing LW/POA and she does not want information. VINCE Hui
--- NOTE | 2024-11-22 12:48 | PCM.PN.SRG ---
Subjective Subjective Feeling better. Some right chest wall discomfort, no worse over weekend. Objective Data Objective Data A&O x 3, NAD RRR Resp non labored right chest hematoma with no skin compromise Vital Signs: Vital Signs Temp Pulse Resp BP Pulse Ox O2 Del Method O2 Flow Rate 98.1 F 101 H 18 143/78 H 94 Nasal Cannula 2 11/22/24 09:06 11/22/24 09:06 11/22/24 09:06 11/22/24 09:06 11/22/24 09:12 11/22/24 09:12 11/22/24 12:16 FiO2 28 11/18/24 21:15 Oxygen Flow Rate (L/min) 2 Oxygen Delivery Method Nasal Cannula Weight: 165 lb 9.074 oz Body Mass Index (BMI) 31.2 Intake & Output: Intake and Output for Last 24 Hours 11/20/24 11/21/24 11/22/24 23:59 23:59 23:59 Intake Total 537.40 / 537.40 526.75 / 586.75 160 / 160 Output Total 1700 / 2200 1100 / 1100 0 / 0 Balance -1162.60 / -1662.60 -573.25 / -513.25 160 / 160 Lab / Micro Data 11/22/24 04:50 11/22/24 04:50 Labs: Laboratory Results - last 24 hr 11/21/24 17:18: POC Glucose 133 H 11/21/24 21:12: POC Glucose 114 H 11/22/24 04:50: WBC 12.7 H, RBC 3.03 L, Hgb 9.6 L, Hct 26.8 L, MCV 88.4, MCH 31.7, MCHC 35.8, RDW Std Deviation 43.9, RDW Coeff of Panchito 13.5, Plt Count 191, MPV 10.2, Immature Gran % (Auto) 0.900, Neut % (Auto) 83.0 H, Lymph % (Auto) 7.9 L, [place] % (Auto) 7.4, Eos % (Auto) 0.5, Baso % (Auto) 0.3, Absolute Neuts (auto) 10.5 H, Absolute Lymphs (auto) 1.00, Nucleated RBC % 0, Differential Comment SCANNED, Sodium 134, Potassium 3.5, Chloride 104, Carbon Dioxide 20.0 L, Anion Gap 10, BUN 17, Creatinine 0.73, Estim Creat Clear Calc 73.12, Est GFR (MDRD) Non-Af 92, BUN/Creatinine Ratio 23.2 H, Glucose 125 H, Calcium 8.4 11/22/24 11:26: POC Glucose 169 H Micro: Microbiology 11/18/24 21:40 Blood Culture (Wb) - Anticubital Right Blood Culture - Preliminary No growth in 48 hours. 11/18/24 21:10 Blood Culture (Wb) - Anticubital Left Blood Culture - Preliminary No growth in 48 hours. 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
[2024-11-22] MEDS: 0.9% Saline Lock 10 ML Syringe IV (21:08)
[2024-11-23 03:00] VITALS: PULSE 100
[2024-11-23 03:06] VITALS: BP 132/65; PULSE 101; RESP 18; TEMP 36.8; O2SAT 92
[2024-11-23 03:14] VITALS: BMI 31.5
[2024-11-23 05:01] LABS: Hematocrit 29.7 % (37-47); Hemoglobin 10.3 g/dL (12.0-15.0); Immature Granulocytes Count 0.440 X10^3/uL (0.0-0.0); Mean Corp Hgb Conc 34.7 g/dL (32-36); Mean Corpuscular Volume 89.2 fL (81-99); Mean Platelet Vol. 9.7 fl (6.2-12.0); NRBC Flagged by Analyzer 0.2 % (0-5); Platelet Count 240 K/mm3 (150-450); RBC Distribution Width CV 13.5 % (11.6-14.6); RBC Distribution Width SD 44.1 fl (35.1-43.9); Red Blood Count 3.33 M/mm3 (4.2-5.4); White Blood Count 12.4 K/mm3 (4.4-11.0)
[2024-11-23 05:23] LABS: Anion Gap 11 (5-15); BUN 18 mg/dL (4-19); BUN/Creat Ratio 29.6 RATIO (10-20); Calcium,Total 8.2 mg/dL (7.6-11.0); Carbon Dioxide 20.0 mmol/L (21.0-32.0); Chloride 102 mmol/L (98-108); Estimated Creatinine Clearance 89.33 ml/min (50-250); Glucose 175 mg/dL (70-99); Magnesium 1.9 mg/dL (1.5-2.2); Potassium 3.5 mmol/L (3.3-5.1)
[2024-11-23] MEDS: Piperacil/Tazobactam 3.375 GM in 0.9% Normal Saline (50mL MB+) 50 ML IV ×2 (06:34→14:34)
--- NOTE | 2024-11-23 08:02 | PCM.PN.HOSP ---
Reason for Visit Chief Complaint: SOB, Wheezing and Diaphoresis. Subjective Subjective Patient seen breathing improved. Plan is for patient to be assessed for home oxygen prior to discharge Objective Data Objective Data Vital Signs: Vital Signs Temp Pulse Resp BP Pulse Ox O2 Del Method O2 Flow Rate 98.3 F 101 H 18 132/65 H 92 Room Air 2 11/23/24 03:06 11/23/24 03:06 11/23/24 03:06 11/23/24 03:06 11/23/24 03:06 11/23/24 03:06 11/22/24 12:16 FiO2 28 11/18/24 21:15 Oxygen Flow Rate (L/min) 2 Oxygen Delivery Method Room Air Weight: 75.7 kg Body Mass Index (BMI) 31.5 Intake & Output: Intake and Output for Last 24 Hours 11/21/24 11/22/24 11/23/24 23:59 23:59 23:59 Intake Total 526.75 / 586.75 690 / 690 50 / 50 Output Total 1100 / 1100 0 / 0 Balance -573.25 / -513.25 690 / 690 50 / 50 Lab / Micro Data 11/23/24 04:42 11/23/24 04:42 Labs: Laboratory Results - last 24 hr 11/19/24 23:33: POC Glucose 160 H 11/22/24 11:26: POC Glucose 169 H 11/22/24 16:34: POC Glucose 120 H 11/22/24 23:55: POC Glucose 151 H 11/23/24 04:42: WBC 12.4 H, RBC 3.33 L, Hgb 10.3 L, Hct 29.7 L, MCV 89.2, MCH 30.9, MCHC 34.7, RDW Std Deviation 44.1 H, RDW Coeff of Panchito 13.5, Plt Count 240, MPV 9.7, Immature Gran % (Auto) 3.500 H, Neut % (Auto) 79.0 H, Lymph % (Auto) 7.8 L, [place] % (Auto) 9.0, Eos % (Auto) 0.1, Baso % (Auto) 0.6, Absolute Neuts (auto) 9.8 H, Absolute Lymphs (auto) 0.97, Nucleated RBC % 0.2, Sodium 134, Potassium 3.5, Chloride 102, Carbon Dioxide 20.0 L, Anion Gap 11, BUN 18, Creatinine 0.60 L, Estim Creat Clear Calc 89.33, Est GFR (MDRD) Non-Af 101, BUN/Creatinine Ratio 29.6 H, Glucose 175 H, Calcium 8.2, Phosphorus 2.4 L, Magnesium 1.9 11/23/24 06:33: POC Glucose 159 H Micro: Microbiology 11/18/24 21:40 Blood Culture (Wb) - Anticubital Right Blood Culture - Preliminary No growth in 48 hours. 11/18/24 21:10 Blood Culture (Wb) - Anticubital Left Blood Culture - Preliminary No growth in 48 hours. 11/19/24 08:25 Nasal Secretion MRSA (PCR) - Final 11/19/24 04:03 Mucosa - Nasopharyngeal Respiratory Panel (PCR) - Final 11/18/24 21:04 Mucosa - Nose SARS-CoV-2, Influenza & RSV (PCR) - Final Physical Exam Narrative GENERAL: cooperative HEENT: Atraumatic; normocephalic EYES; Anicteric, Normal Conjunctiva NECK; supple, normal thyroid, RESPIRATORY: Diminished to auscultation CARDIOVASCULAR: Regular S1 S2, GI: soft, normoactive bowel sounds, : No Renal angle tenderness; EXTREMITIES: No edema, no clubbing, MUSCULOSKELETAL: no muscle wasting NEURO: Awake; no lateralizing signs. SKIN: Extensive bruising left upper chest PSYCH; Flat affect Assessment & Plan Assessment/Plan (1) Hematoma of right chest wall: QUALIFIERS: Encounter type: subsequent encounter Qualified Code(s): S20.211D - Contusion of right front wall of thorax, subsequent encounter (2) Duodenitis: (3) Acute respiratory failure: QUALIFIERS: Respiratory failure complication: unspecified whether with hypoxia or hypercapnia Qualified Code(s): J96.00 - Acute respiratory failure, unspecified whether with hypoxia or hypercapnia (4) Bronchitis: (5) Hypothyroidism: QUALIFIERS: Hypothyroidism type: unspecified Qualified Code(s): E03.9 - Hypothyroidism, unspecified PLAN: Plan Patient is a 63-year-old lady who presented with shortness of breath and assessment of acute hypoxic respiratory failure secondary to COPD with acute exacerbation made started on noninvasive ventilation admitted to the intensive care unit stabilized and later transferred to PCU 1. Acute hypoxic respiratory failure ? Secondary to COPD with acute exacerbation. 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 Patient managed with broad-spectrum antibiotic therapy with Zosyn as well as Solu-Medrol. Patient was managed on noninvasive ventilation BiPAP which has since been weaned off ? 11/23/2024;Patient seen breathing improved. Plan is for patient to be assessed for home oxygen prior to discharge 2. Hemorrhagic shock ? Patient did develop huge hematoma in the pectoralis muscle following insertion of subclavian CVC. Patient was managed in the ICU with IV fluid as well as Levophed which has since been weaned off 3. Left upper chest hematoma ? Appears stable 4. Anemia ? Secondary to acute blood loss monitoring H&H and transfuse if patient becomes symptomatic or hemoglobin falls below 7 5.Polycythemia ? Which was present on admission with hemoglobin of 18.9 this was thought to be secondary to chronic hypoxia from COPD 6. Acute kidney injury ? Patient creatinine on admission was 1.36. At 1.57 down to 0.73 as of today 7. Acute colitis ? CT demonstrated abrupt narrowing of the proximal sigmoid colon with a short segment of wall thickening. This could represent focal colitis or a mucosal mass lesion. Plans for patient to follow-up with primary care physician to be referred for outpatient colonoscopy 8. Duodenitis ? On PPI 9. Hiatal hernia with GERD symptoms ? Patient is on PPI 10. Subclinical hypothyroidism ? Patient started on levothyroxine 11. Diabetes mellitus type 2 ? Patient is on metformin held on admission placed on Accu-Cheks ACHS with sliding scale coverage 12. Schizoaffective disorder -On thiothixene twice daily, buspirone 3 times daily, bupropion twice daily plus imipramine nightly. Held on admission and resumed 13. Dyslipidemia ?Patient is on statin therapy, continued at home dose 14. Peripheral arterial disease ? With history of right CEA 15. Essential hypertension ? Patient is on lisinopril held on admission given hypotension as well as worsening kidney function 16. Degenerative joint disease ? CT demonstrated Moderate to severe thoracolumbar spondylosis with mild lumbar scoliosis with mild dextroconvex scoliosis 17. Physical deconditioning ? Requested for PT OT eval and business services sales representative to assist with discharge planning 18. Tobacco dependence ? Counseled on cessation, offered nicotine patch for tobacco cravings 19. DVT prophylaxis Bilateral SCDs Time spent in the patient's overall evaluation,decision-making process, review of diagnostic data, adjustment of management, discussion with other providers, nursing nursing and ancillary staff involved in patient's care documentation, 35 Minutes Charges/Coding Visit Charges Inpatient E&M: 87295 Subs Hosp L2
[2024-11-23 09:46] VITALS: O2SAT 95; O2SAT 97
--- NOTE | 2024-11-23 09:48 | DS.PCM_ITS ---
Providers Date of Admission: 11/19/24 Primary Care Physician: CB Landaverde Consultations 11/19/24 04:21 Consult: General Surgery Routine Consulting Provider: Clay Rizzo Reason for Consult: Focal Colitis with ?mass in proximal sigmoid colon and suspected PSBO. EMERGENT Consult: No MD Notified: Yes Date Notified: 11/19/24 Time Notified: 09:37 Method of Notification: Verbal 11/19/24 04:58 Consult: Vascular Surgery Routine Consulting Provider: Alejandro Pool Reason for Consult: right chest hematoma EMERGENT Consult: No MD Notified: Yes Date Notified: 11/19/24 Time Notified: 09:41 Method of Notification: Answering Service 11/19/24 13:47 Consult: Automatic Pinsetter Adjuster / Pulmonary Medicine Routine Consulting Provider: Intensivists/Pulmonary Med Reason for Consult: shock on levophed EMERGENT Consult: No Notified: Yes Date Notified: 11/19/24 Time Notified: 13:47 Method of Notification: Verbal 11/20/24 07:12 Consult: Automatic Pinsetter Adjuster / Pulmonary Medicine Routine Consulting Provider: Intensivists/Pulmonary Med Reason for Consult: shock, hemorrhagic EMERGENT Consult: No MD Notified: Yes Date Notified: 11/20/24 Time Notified: 08:46 Method of Notification: Verbal Reason For Visit: AE COPD, BRONCHITIS, RESP FAILURE & UNDIFFERENTIAT Diagnosis Discharge Diagnosis (1) Hematoma of right chest wall: Status: Acute Code(s): S20.211A - Contusion of right front wall of thorax, initial encounter Qualifiers: Encounter type: subsequent encounter Qualified Code(s): S20.211D - Contusion of right front wall of thorax, subsequent encounter (2) Duodenitis: Status: Acute Code(s): K29.80 - Duodenitis without bleeding (3) Acute respiratory failure: Status: Acute Code(s): J96.00 - Acute respiratory failure, unspecified whether with hypoxia or hypercapnia Qualifiers: Respiratory failure complication: unspecified whether with hypoxia or hypercapnia Qualified Code(s): J96.00 - Acute respiratory failure, unspecified whether with hypoxia or hypercapnia (4) Bronchitis: Status: Acute Code(s): J40 - Bronchitis, not specified as acute or chronic (5) Hypothyroidism: Status: Acute Code(s): E03.9 - Hypothyroidism, unspecified Qualifiers: Hypothyroidism type: unspecified Qualified Code(s): E03.9 - Hypothyroidism, unspecified Plan Patient is a 63-year-old lady who presented with shortness of breath and assessment of acute hypoxic respiratory failure secondary to COPD with acute exacerbation made started on noninvasive ventilation admitted to the intensive care unit stabilized and later transferred to PCU 1. Acute hypoxic respiratory failure ? Secondary to COPD with acute exacerbation. 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 Patient managed with broad-spectrum antibiotic therapy with Zosyn as well as Solu-Medrol. Patient was managed on noninvasive ventilation BiPAP which has since been weaned off ? 11/23/2024;Patient seen breathing improved. Plan is for patient to be assessed for home oxygen prior to discharge 2. Hemorrhagic shock ? Patient did develop huge hematoma in the pectoralis muscle following insertion of subclavian CVC. Patient was managed in the ICU with IV fluid as well as Levophed which has since been weaned off 3. Left upper chest hematoma ? Appears stable 4. Anemia ? Secondary to acute blood loss monitoring H&H and transfuse if patient becomes symptomatic or hemoglobin falls below 7 5.Polycythemia ? Which was present on admission with hemoglobin of 18.9 this was thought to be secondary to chronic hypoxia from COPD 6. Acute kidney injury ? Patient creatinine on admission was 1.36. At 1.57 down to 0.73 as of today 7. Acute colitis ? CT demonstrated abrupt narrowing of the proximal sigmoid colon with a short segment of wall thickening. This could represent focal colitis or a mucosal mass lesion. Plans for patient to follow-up with primary care physician to be referred for outpatient colonoscopy 8. Duodenitis ? On PPI 9. Hiatal hernia with GERD symptoms ? Patient is on PPI 10. Subclinical hypothyroidism ? Patient started on levothyroxine 11. Diabetes mellitus type 2 ? Patient is on metformin held on admission placed on Accu-Cheks ACHS with sliding scale coverage 12. Schizoaffective disorder -On thiothixene twice daily, buspirone 3 times daily, bupropion twice daily plus imipramine nightly. Held on admission and resumed 13. Dyslipidemia ?Patient is on statin therapy, continued at home dose 14. Peripheral arterial disease ? With history of right CEA 15. Essential hypertension ? Patient is on lisinopril held on admission given hypotension as well as worsening kidney function 16. Degenerative joint disease ? CT demonstrated Moderate to severe thoracolumbar spondylosis with mild lumbar scoliosis with mild dextroconvex scoliosis 17. Physical deconditioning ? Requested for PT OT eval and director social service to assist with discharge planning 18. Tobacco dependence ? Counseled on cessation, offered nicotine patch for tobacco cravings 19. DVT prophylaxis Bilateral SCDs Time spent in the patient's overall evaluation,decision-making process, review of diagnostic data, adjustment of management, discussion with other providers, nursing nursing and ancillary staff involved in patient's care documentation, 35 Minutes Medications at Discharge Home Medications atorvastatin 20 mg tablet 20 mg PO QHS cholesterol 12/22/17 lisinopril 5 mg tablet 5 mg PO DAILY blood pressure 12/22/17 metformin 500 mg tablet 500 mg PO DAILY diabetes 12/22/17 aspirin 81 mg tablet,delayed release (Adult Aspirin Regimen) [address] [facility] 01/14/24 bupropion HCl 150 mg tablet,12 hr sustained-release (Wellbutrin SR) 150 mg PO BID 01/14/24 buspirone 5 mg tablet 5 mg PO TID 01/14/24 cyclobenzaprine 5 mg tablet 5 mg PO TID PRN 01/14/24 fluticasone fur. 100 mcg-umeclid 62.5 mcg-vilant 25 mcg inhalat.powder (Trelegy Ellipta) 1 inh inhalation QDAY 01/14/24 ibuprofen 800 mg tablet 800 mg PO Q8H PRN 01/14/24 imipramine HCl 50 mg tablet 150 mg PO QHS depression 01/14/24 ondansetron HCl 4 mg tablet 4 mg PO Q8H PRN 01/14/24 thiothixene 2 mg capsule 2 mg PO BID 01/14/24 zolpidem 10 mg tablet (Ambien) 10 mg PO QHS PRN sleep 01/14/24 melatonin 5 mg capsule mg PO PRN 01/21/24 pantoprazole 40 mg tablet,delayed release 40 mg PO DAILY #90 tabs 03/26/24 albuterol sulfate 90 mcg/actuation aerosol inhaler (Ventolin HFA) 2 puff inhalation Q6H PRN shortness of breath or wheezing #8.5 grams 11/23/24 amoxicillin 875 mg-potassium clavulanate 125 mg tablet 1 tab PO BID #20 tabs 11/23/24 guaifenesin 600 mg tablet, extended release 12 hr (Mucinex) 1,200 mg (2 x 600 mg) PO BID 10 days #40 tabs 11/23/24 pantoprazole 40 mg tablet,delayed release 40 mg PO DAILY #60 tabs 11/23/24 prednisone 20 mg tablet 40 mg (2 x 20 mg) PO BREAKFAST 7 days #14 tabs 11/23/24 Physical Exam Narrative GENERAL: cooperative HEENT: Atraumatic; normocephalic EYES; Anicteric, Normal Conjunctiva NECK; supple, normal thyroid, RESPIRATORY: Diminished to auscultation CARDIOVASCULAR: Regular S1 S2, GI: soft, normoactive bowel sounds, : No Renal angle tenderness; EXTREMITIES: No edema, no clubbing, MUSCULOSKELETAL: no muscle wasting NEURO: Awake; no lateralizing signs. SKIN: Extensive bruising left upper chest PSYCH; Flat affect Weight / BMI Weight Weight: 75.7 kg Body Mass Index (BMI) 31.5 ABG / Lab / Microbiology Data 11/23/24 04:42 11/23/24 04:42 Laboratory: Laboratory Results - last 24 hr 11/19/24 23:33: POC Glucose 160 H 11/22/24 16:34: POC Glucose 120 H 11/22/24 23:55: POC Glucose 151 H 11/23/24 04:42: WBC 12.4 H, RBC 3.33 L, Hgb 10.3 L, Hct 29.7 L, MCV 89.2, MCH 30.9, MCHC 34.7, RDW Std Deviation 44.1 H, RDW Coeff of Panchito 13.5, Plt Count 240, MPV 9.7, Immature Gran % (Auto) 3.500 H, Neut % (Auto) 79.0 H, Lymph % (Auto) 7.8 L, [place] % (Auto) 9.0, Eos % (Auto) 0.1, Baso % (Auto) 0.6, Absolute Neuts (auto) 9.8 H, Absolute Lymphs (auto) 0.97, Nucleated RBC % 0.2, Sodium 134, Potassium 3.5, Chloride 102, Carbon Dioxide 20.0 L, Anion Gap 11, BUN 18, C reatinine 0.60 L, Estim Creat Clear Calc 89.33, Est GFR (MDRD) Non-Af 101, B UN/Creatinine Ratio 29.6 H, Glucose 175 H, Calcium 8.2, Phosphorus 2.4 L, Magnesium 1.9 11/23/24 06:33: POC Glucose 159 H 11/23/24 11:34: POC Glucose 169 H Microbiology: Microbiology 11/23/24 09:43 Stool Clostridioides difficile (PCR) - Final 11/23/24 09:43 Stool Stool Occult Blood (EMMA) - Final Occult Blood Positive 11/18/24 21:40 Blood Culture (Wb) - Anticubital Right Blood Culture - Preliminary No growth in 48 hours. 11/18/24 21:10 Blood Culture (Wb) - Anticubital Left Blood Culture - Preliminary No growth in 48 hours. 11/19/24 08:25 Nasal Secretion MRSA (PCR) - Final 11/19/24 04:03 Mucosa - Nasopharyngeal Respiratory Panel (PCR) - Final 11/18/24 21:04 Mucosa - Nose SARS-CoV-2, Influenza & RSV (PCR) - Final D/C Instructions DC O2, CPAP, BIPAP Needs Home O2 Discharge instructions: No Meaningful Use Info Meaningful Use Meaningful Use Diagnoses (Choose all that apply): None applicable Discharge Plan Admission Admit Date/Time: 11/19/24 00:48 Attending Provider: Romeo Mina Primary Care Provider: Lulu Esparza NP Consulting Providers: Romeo Khan; Clay Rizzo; Familia Gupta; Fabrice Marte; Dustin Lizarraga; Lg Leong; Romeo James; Stefany Mg; Antonio Alvarez; Shelby Abel; Horace Pizarro; Malika Salvador; Cirilo Lopez; Pk Vargas; Orlando Haile; David Padilla; Luciana Guillermo; Kaur August; Dulce Basurto; Jameel Hou; Joseluis Rodriguez; Chelo Servin; Vesta Beavers; Edu Keenan; Raheem Cuevas; Cyn,Bhargav; Varun Tellez; Kathi Parmar; Joe Barragan; AngelShivani; Juan Jimenez; Basim Flores; Liz Yang; Alvin Duran; Alejandro Pool; Kenny Pompa Discharge Orders/Prescriptions Prescriptions: New prednisone 20 mg Tablet 40 mg PO BREAKFAST 7 Days Qty: 14 0RF pantoprazole 40 mg Tablet,Delayed Release (Dr/Ec) 40 mg PO DAILY Qty: 60 0RF amoxicillin-pot clavulanate 875-125 mg tablet 1 tab PO BID Qty: 20 0RF guaifenesin [Mucinex] 600 mg tablet extended release 12hr 1,200 mg PO BID 10 Days Qty: 40 0RF albuterol sulfate [Ventolin HFA] 90 mcg/actuation HFA aerosol inhaler 2 puff inhalation Q6H PRN (Reason: shortness of breath or wheezing) Qty: 8.5 0RF Continued Trelegy Ellipta 100-62.5-25 mcg blister with device 1 inh inhalation QDAY zolpidem [Ambien] 10 mg tablet 10 mg PO QHS PRN (Reason: sleep) cyclobenzaprine 5 mg tablet 5 mg PO TID PRN imipramine HCl 50 mg tablet 150 mg PO QHS ibuprofen 800 mg tablet 800 mg PO Q8H PRN bupropion HCl [Wellbutrin SR] 150 mg tablet sustained-release 12 hr 150 mg PO BID Rx Instructions: to stop smoking ondansetron HCl 4 mg tablet 4 mg PO Q8H PRN buspirone 5 mg tablet 5 mg PO TID aspirin [Adult Aspirin Regimen] 81 mg tablet,delayed release (DR/EC) 81 mg PO QDAY melatonin 5 mg capsule PO PRN pantoprazole 40 mg tablet,delayed release (DR/EC) 40 mg PO DAILY Qty: 90 3RF metformin 500 MG tablet 500 mg PO DAILY atorvastatin 20 MG tablet 20 mg PO QHS lisinopril 5 MG tablet 5 mg PO DAILY thiothixene 2 mg capsule 2 mg PO BID Referrals / Follow Up: Lulu Esparza NP, PHARMACEUTICAL SCIENTIST-C [Primary Care Provider, Medical] - 11/30/24 11:00 am Disposition Disposition (needs filled in before D/C Order can be placed): Home, Self Care Charges/Coding Visit Charges Inpatient E&M: 45404 Disch Hosp >30min
[2024-11-23 09:54] VITALS: BP 139/43; PULSE 102; RESP 18; TEMP 36.3; O2SAT 95
--- NOTE | 2024-11-23 11:25 | CASEMGMT ---
Social Work This proposal lead writer noted patient is ready for discharge. Checked in to ensure patient still had social service rack card and information on advance directive in case patient changed her mind on completion of the directives in the future. Patient reports that while does not want to complete the directives currently, does have somebody in mind and is considering calling in to schedule an outpatient appointment. Reeducated patient on what patient will need to gather for completion of directives. Also verified patient has an accurate phone number to call. No other services requested or indicated at this time regarding advance directives. Patient also denied any other concerns or needs from social security specialist. -TEREZA Hope, INSTRUCTOR [employer]GRAMMABLE [employer]ERS *This note was generated with [employer] dictation software. It may contain incorrect words, spelling, and punctuation that were not noted in review of the chart prior to signing*
--- NOTE | 2024-11-23 11:33 | CASEMGMT ---
Pt previously had an order for DC placed and new rxs sent to [facility] pharmacy. TC to [facility] who states that the pt's total cost for the new Rxs come to 58$. The pharmacist also states again that the pt's test strips and BGM come to 19 and 24$. Per the RN o2 testing, pt does not qualify for home oxygen. RN CM to the pt's room at this time. Pt is sitting comfortably in bed and is calm. Pt states that she can afford all of her new medications and declines concerns. Pt is encouraged that she does not need oxygen moving forward. Pt states that she feels safe returning home with her son and denies the need for any additional therapy or resources. Pt denies further questions or concerns at this time.
[2024-11-23 16:00] VITALS: BP 127/63; PULSE 91; RESP 18; TEMP 36.6; O2SAT 94
--- NOTE | 2024-11-23 16:28 | PHA.DC_ITS ---
Pharmacy [place] Med Reconciliation Pharmacy Service has performed discharge medication reconciliation for this patient. Patient in precautions, did not supervisor counseling and guidance. Upon initial review of discharge, levothyroxine was not started as a new medication for home but it was started in the hospital. Contacted Dr. Mina, he entered a new prescription for discharge. ZACH RAMIREZ updated to new medication. The patient's discharge medication list was reviewed for discrepancies and discrepancies were resolved. Medications at Discharge Home Medications atorvastatin 20 mg tablet 20 mg PO QHS cholesterol 12/22/17 lisinopril 5 mg tablet 5 mg PO DAILY blood pressure 12/22/17 metformin 500 mg tablet 500 mg PO DAILY diabetes 12/22/17 aspirin 81 mg tablet,delayed release (Adult Aspirin Regimen) 81 mg PO QDAY [facility] 01/14/24 bupropion HCl 150 mg tablet,12 hr sustained-release (Wellbutrin SR) 150 mg PO BID 01/14/24 buspirone 5 mg tablet 5 mg PO TID 01/14/24 cyclobenzaprine 5 mg tablet 5 mg PO TID PRN 01/14/24 fluticasone fur. 100 mcg-umeclid 62.5 mcg-vilant 25 mcg inhalat.powder (Trelegy Ellipta) 1 inh inhalation QDAY 01/14/24 ibuprofen 800 mg tablet 800 mg PO Q8H PRN 01/14/24 imipramine HCl 50 mg tablet 150 mg PO QHS depression 01/14/24 ondansetron HCl 4 mg tablet 4 mg PO Q8H PRN 01/14/24 thiothixene 2 mg capsule 2 mg PO BID 01/14/24 zolpidem 10 mg tablet (Ambien) 10 mg PO QHS PRN sleep 01/14/24 melatonin 5 mg capsule mg PO PRN 01/21/24 albuterol sulfate 90 mcg/actuation aerosol inhaler (Ventolin HFA) 2 puff inhalation Q6H PRN shortness of breath or wheezing #8.5 grams 11/23/24 amoxicillin 875 mg-potassium clavulanate 125 mg tablet 1 tab PO BID #20 tabs 11/23/24 guaifenesin 600 mg tablet, extended release 12 hr (Mucinex) 1,200 mg (2 x 600 mg) PO BID 10 days #40 tabs 11/23/24 levothyroxine 25 mcg tablet 25 mcg PO DAILY@0600 #90 tabs 11/23/24 pantoprazole 40 mg tablet,delayed release 40 mg PO DAILY #60 tabs 11/23/24 prednisone 20 mg tablet 40 mg (2 x 20 mg) PO BREAKFAST 7 days #14 tabs 11/23/24
== END 2024-11-23 17:55 | disposition home or self-care (01) | DRG 189 ==
LOC: ED 23:38 → ICU 11-19 00:37 → PCU 11-21 10:35
PROVIDERS: Internal Medicine; Admitting Provider Internal Medicine; Emergency Provider Emergency Medicine; PCP Registered Nurse; Visit Provider Internal Medicine
DX: J96.01 Acute respiratory failure with hypoxia (principal); R57.8 Other shock; E87.20 Acidosis, unspecified; E27.40 Unspecified adrenocortical insufficiency; D62 Acute posthemorrhagic anemia; J44.1 Chronic obstructive pulmonary disease with (acute) exacerbation; N17.9 Acute kidney failure, unspecified; F25.9 Schizoaffective disorder, unspecified; E11.51 Type 2 diabetes mellitus with diabetic peripheral angiopathy without gangrene; K76.0 Fatty (change of) liver, not elsewhere classified; I10 Essential (primary) hypertension; E03.9 Hypothyroidism, unspecified; Z68.31 Body mass index [BMI] 31.0-31.9, adult; D45 Polycythemia vera; K29.80 Duodenitis without bleeding; K52.9 Noninfective gastroenteritis and colitis, unspecified; G47.33 Obstructive sleep apnea (adult) (pediatric); F17.210 Nicotine dependence, cigarettes, uncomplicated; E78.5 Hyperlipidemia, unspecified; S20.211A Contusion of right front wall of thorax, initial encounter; K21.9 Gastro-esophageal reflux disease without esophagitis; M19.90 Unspecified osteoarthritis, unspecified site; M47.814 Spondylosis without myelopathy or radiculopathy, thoracic region; M41.9 Scoliosis, unspecified; Z79.84 Long term (current) use of oral hypoglycemic drugs; R59.0 Localized enlarged lymph nodes; R79.89 Other specified abnormal findings of blood chemistry; E66.811 Obesity, class 1; Z79.899 Other long term (current) drug therapy; Z79.82 Long term (current) use of aspirin; X58.XXXA Exposure to other specified factors, initial encounter
CPT/HCPCS: 36415; 36556; 36600; 51702; 71045; 71250; 71275; 74176; 74177; 80048; 80053; 80061; 81001; 81270; 82010; 82274; 82533; 82803; 82962; 83036; 83605; 83735; 84100; 84439; 84443; 84481; 84484; 85025; 85379; 85610; 85730; 87040; 87493; 87506; 87631; 87633; 87641; 93005; 93306; 93970; 94002; 94640; 94668; 97162; 97166; 97530; 99252; 99285; 99406; Q9957; Q9967; A4216; C1751; C8929; G0463; J2405

== ENCOUNTER → 2024-12-14 | Outpatient (CLI) | payer SELFPAY ==
[2024-12-14 09:16] LABS: Hematocrit 31.7 % (37-47); Hemoglobin 10.9 g/dL (12.0-15.0); Immature Granulocytes Count 0.050 X10^3/uL (0.0-0.0); Mean Corp Hgb Conc 34.4 g/dL (32-36); Mean Corpuscular Volume 90.8 fL (81-99); Mean Platelet Vol. 8.5 fl (6.2-12.0); NRBC Flagged by Analyzer 0 % (0-5); Platelet Count 372 K/mm3 (150-450); RBC Distribution Width CV 15.4 % (11.6-14.6); RBC Distribution Width SD 48.3 fl (35.1-43.9); Red Blood Count 3.49 M/mm3 (4.2-5.4); White Blood Count 6.8 K/mm3 (4.4-11.0)
[2024-12-14 10:30] LABS: CRP 76.40 mg/L (0.0-3.0); LDH 236 U/L (84-246)
[2024-12-17 03:07] LABS: Egg, Whole <0.10 kU/L (Class 0); Mussels <0.10 kU/L (Class 0)
[2024-12-18 17:08] LABS: ACCA 20 units (0-90); ALCA 1 units (0-60); AMCA 9 units (0-100); Albumin 2.4 g/dL (2.9-4.4); Cytoplasmic Ab (C-ANCA) <1:20 titer (Neg:<1:20); Gamma Globulin 0.6 g/dL (0.4-1.8); Gastrin, Serum 65 pg/mL (0-115); Immunoglobulin A 135 mg/dL (87-352); Immunoglobulin G 605 mg/dL (586-1602); Immunoglobulin M 115 mg/dL (26-217); PROEL- TOTAL PROTEIN 4.9 g/dL (6.0-8.5); Perinuclear Ab (P-ANCA) <1:20 titer (Neg:<1:20); QNTFERON TB Mitogen Value > 10.00 IU/mL (.); QNTFERON TB Nil Value 0.28 IU/mL (.); QNTFERON TB1+ Ag Value 0.26 IU/mL (.); QNTFERON TB2+ Ag Value 0.26 IU/mL (.); QNTIFERON TB Positive Criteria Negative (Negative)
== END | disposition home or self-care (01) ==
PROVIDERS: PCP Registered Nurse; Referring Provider Internal Medicine Gastroenterology; Visit Provider Internal Medicine Gastroenterology
DX: R93.3 Abnormal findings on diagnostic imaging of other parts of digestive tract (principal)
CPT/HCPCS: 36415; 82784; 82785; 82941; 83516; 83615; 84165; 85025; 85652; 86003; 86005; 86036; 86037; 86140; 86255; 86334; 86480; 86671

== ENCOUNTER → 2025-01-07 | Outpatient (CLI) | payer SELFPAY ==
--- NOTE | 2025-01-07 08:12 | CT_ITS ---
PROCEDURE: ABDOMEN/PELVIS WITH CONTRAST 01/07/2025 REASON FOR EXAM: ABNORMAL CT SCAN AND DIARRHEA TECHNIQUE: Procedure Code: [id number] Modality: CT Procedure: ABDOMEN/PELVIS WITH CONTRAST Coronal and Sagittal reconstruction series were provided. CONTRAST: Isovue 370 VOLUME: 96 mL One or more dose reduction techniques were used (e.g., Automated exposure control, adjustment of the mA and/or kV according to patient size, use of iterative reconstruction technique. RADIATION DOSE SUMMARY: CTDlvol: 18.65 MGy DLP:948.35 MGycm COMPARISON: Prior report of the study dated 11.19.2024 was reviewed, no available prior images. FINDINGS: There is currently seen long segment of diffuse circumferential thickening seen involving the splenic flexure, descending colon as well as the sigmoid colon with surrounding fat stranding, these changes appears more diffuse compared to the previously described focal abrupt caliber narrowing, today' findings are in favor of colitis. There is no current bowel dilatation. A moderate amount of stool is noted in the colon. Redemonstration of the diffuse mild wall thickening of the duodenum with mild adjacent fat stranding, concerning for duodenitis. Newly noted similar changes seen involving the stomach suggesting gastritis. The liver, spleen, gallbladder, pancreas, adrenal glands, and kidneys appear unremarkable apart from a small right renal lower pole simple cortical cyst. Small hiatal hernia, unchanged. No current free fluid or air seen. Moderate atherosclerotic calcifications are again noted. Unremarkable urinary bladder. No pelvic masses noted. Moderate to severe thoracolumbar spondylosis including a grade 1 anterolisthesis of L4 on L5. Mild scoliosis of the lumbar spine. Unchanged findings since the last study. Minimal left pleural effusion is newly seen. CT/Abdomen/Pelvis WITH Contrast IMPRESSION: Currently seen long segment of diffuse circumferential thickening seen involvin g the splenic flexure, descending colon as well as the sigmoid colon with surrounding fat stranding, these changes appears more di ffuse compared to the previously described focal abrupt caliber narrowing. Today' findings are in favor of colitis. There is no current bowel dilatation. Recommend clinical correlation. Redemonstration of the diffuse mild wall thickening of the duodenum with mild a djacent fat stranding, concerning for duodenitis. Newly noted similar changes are seen involving the stomach suggesting gastritis . No current bowel dilatation or obstruction. Stable hiatal hernia. Stable moderate to severe thoracolumbar spondylosis with mild lumbar scoliosis. Newly seen minimal left pleural effusion. [facility]
--- OUTSIDE RECORDS SUMMARY | 2025-01-07 08:29 | XMS RPT_ITS | CCD ---
Author Organization [facility] Care Team Providers Care Php Web Developer Name Role Phone ISRAEL SANTO Unavailable Unavailable SANTOISRAEL Munguia Unavailable Unavailable SANTO, ISRAEL C Unavailable Unavailable CEBUL, HOWARD III Unavailable Unavailable CEBUL, HOWARD III Unavailable Unavailable PROVIDER, UNKNOWN Unavailable Unavailable Blaz ASSOCIATE PROFESSOR OF AUTOMATION.PLATER PRINTED CIRCUIT BOARD PANELS, DYAN, Stephanie Primary Care Provider Haagen ASSOCIATE PROFESSOR OF AUTOMATION.CANDACE, Lulu Primary Care Provider Haagen ASSOCIATE PROFESSOR OF AUTOMATION.CANDACE, Lulu Primary Care Provider Haagen ASSOCIATE PROFESSOR OF AUTOMATION.CANDACE, Lulu Primary Care Provider Haagen ASSOCIATE PROFESSOR OF AUTOMATION.CANDACE, Lulu Primary Care Provider Blaz ASSOCIATE PROFESSOR OF AUTOMATION.PLATER PRINTED CIRCUIT BOARD PANELS, DYAN, Stephanie Primary Care Provider DOUG QUIROZ Referring Unavailable DOUG QUIROZ Consulting Unavailable NURIAUBBER, SHAMEER Attending Unavailable KHUBBER, SHAMEER Admitting Unavailable PROVIDER, UNKNOWN Primary Care Unavailable Haagen ASSOCIATE PROFESSOR OF AUTOMATION.CANDACE, Lulu Primary Care Provider Blaz ASSOCIATE PROFESSOR OF AUTOMATION.CANDACE, DYAN, Stephanie Primary Care Provider Haagen ASSOCIATE PROFESSOR OF AUTOMATION.CANDACE, Lulu Primary Care Provider Suppan ASSOCIATE PROFESSOR OF AUTOMATION.CANDACE Idania A Unavailable [phone] Alvin Mckeon MD Unavailable Suppan ASSOCIATE PROFESSOR OF AUTOMATION.CANDACE, Idania A Unavailable Suppan ASSOCIATE PROFESSOR OF AUTOMATION.CANDACE, Idania A Unavailable Suppan ASSOCIATE PROFESSOR OF AUTOMATION.CANDACE, Idania A Unavailable [phone] Alvin Mckeon MD Unavailable HAAGEN, [facility] Primary Care Unavailable MARK AMADOR Attending Unavailable HAAGEN, LULU Primary Care Unavailable HAAGEN, LULU Referring Unavailable HAAGEN, LULU Primary Care Unavailable HAAGEN, LULU Attending Unavailable HAAGEN, LUUL Primary Care Unavailable HAAGEN, LULU Attending Unavailable HARPSTER, ADWOA Referring Unavailable HAAGEN, LULU Primary Care Unavailable HAAGEN, LULU Attending Unavailable HAAGEN, LULU Primary Care Unavailable HAAGEN, LULU Referring Unavailable HAAGEN, LULU Primary Care Unavailable HARPSTER, ADWOA Referring Unavailable DIPESH LEONG Attending Unavailable HAAGEN, LULU Primary Care Unavailable HAAGEN, LULU Primary Care Unavailable HAAGEN, LULU Attending Unavailable HAAGEN, LULU Primary Care Unavailable HAAGEN, LULU Referring Unavailable HAAGEN, LULU Attending Unavailable HAAGEN, LULU Primary Care Unavailable HAAGEN, LULU Referring Unavailable HAAGEN, LULU Referring Unavailable HAAGEN, LULU Primary Care Unavailable HAAGEN, LULU Primary Care Unavailable HAAGEN, LULU Attending Unavailable HAAGEN, LULU Referring Unavailable HAAGEN, LULU Primary Care Unavailable HAAGEN, LULU Primary Care Unavailable DIPESH LEONG Referring Unavailable HARPSTER, ADWOA Referring Unavailable HAAGEN, LULU Primary Care Unavailable HAAGEN, LULU Primary Care Unavailable DANI PEARCE Attending Unavailable DIPESH LEONG Referring Unavailable HAAGEN, LULU Primary Care Unavailable GABE HALL Referring Unavailable HAAGEN, LULU Primary Care Unavailable GOLDIEGABE Attending Unavailable SELF Referring Unavailable HAAGEN, LULU Referring Unavailable HAAGEN, LULU Primary Care Unavailable HARPSTER, ADWOA Referring Unavailable HAAGEN, LULU Primary Care Unavailable HARPSTER, ADWOA Referring Unavailable HAAGEN, LULU Primary Care Unavailable HAAGEN, LULU Attending Unavailable HAAGEN, LULU Primary Care Unavailable HAAGEN, LULU Referring Unavailable Haagen PROCESS OPERATOR-C, Lulu Primary Care Physician Dr. Ru Marques MD Emergency Department Physician Dr. Romeo Khan DO Admitting Physician Ana vailable Dr. Romeo Khan DO Nurse Practitioner Unav ailable So PALACIO, Dr. Williamson Nurse Practitioner Dr. Familia Gupta MD Nurse Practitioner [phone] Rosanna PALACIO, Dr. Avina Nurse Practitioner Zia PALACIO, Dr. Chan Nurse Practitioner [phone] Salo DO, Dr. Castanon Nurse Practitioner [phone] Erika PALACIO, Dr. Romeo Brown Nurse Practitioner [phone] Saurav LOPEZ, Dr. Mccall Nurse Practitioner Unavailab bacilio Alvarez MD, Dr. Alvarez Nurse Practitioner Page PALACIO, Dr. Ryan Nurse Practitioner Un available Moira PALACIO, Dr. Vu Nurse Practitioner Madeleine PALACIO, Dr. Daly Nurse Practitioner John PALACIO, Dr. Kerr Nurse Practitioner [phone] Sam PALACIO, Dr. Whittington Nurse Practitioner [phone] Mic PALACIO, Dr. Perry Nurse Practitioner Unavailable Randy PALACIO, Dr. Hernandez Nurse Practitioner [phone] Eagle PALACIO, Dr. Chowdhury Nurse Practitioner [phone] Mariangel PALACIO, Dr. Dietrich Nurse Practitioner Unavail able Sherine LOPEZ, Dr. Cardona Nurse Practitioner Unavailable Ameya PALACIO, Dr. Jorgensen Nurse Practitioner Unavailabl fernando Rodriguez MD, Dr. Huggins Nurse Practitioner Debra Servin MD, Dr. Whitney Nurse Practitioner [phone] Nimesh LOPEZ, Dr. Lemons Nurse Practitioner Unavail able Ree PALACIO, Dr. Sorensen Nurse Practitioner [phone] Faith PALACIO, Dr. Maciel Nurse Practitioner Cyn PALACIO, Dr. Durant Nurse Practitioner [phone] Geoff DO, Dr. Bond Nurse Practitioner Agata PALACIO, Dr. Armenta Nurse Practitioner [phone] Laurel PALACIO, Dr. Diaz Nurse Practitioner Angel PALACIO, Dr. Parrish Nurse Practitioner Unavaila adriana Jimenez DO, Dr. Martinez Nurse Practitioner [phone] Mark PALACIO, Dr. Stallworth Nurse Practitioner Celia PALACIO, Dr. Hill Nurse Practitioner Roger PALACIO, Dr. Esquivel Nurse Practitioner Corine PALACIO, Dr. Allen Nurse Practitioner Leopoldo PALACIO, Dr. Walters Attending Physician Unavail able Peña PALACIO, Dr. Cox Nurse Practitioner Pedro PALACIO, Dr. Humphrey Attending Physician Khan DO, Dr. Walters Referring Provider Unav ailable Leopoldo PALACIO, Dr. Walters Nurse Practitioner Unavaila ble Elizabeth Marina Attending Physician Stephanie PALACIO, Dr. Ashley Attending Physician Peña PALACIO, Dr. Cox Attending Physician Benigno PRADHAN, Lisa Attending Physician Corine PALACIO, Dr. Allen Attending Physician Leopoldo PALACIO, Dr. Walters Referring Provider Unavaila ble Haagen, Lulu Primary Care Unavailable Romeo Khan Admitting Unavailable Romeo Khan Consulting Unavailable Romeo Khan Attending Unavailable Haagen, Lulu Primary Care Unavailable Haagen, Lulu Referring Unavailable Colton Rodriguez Attending Unavailable Haagen, Lulu Primary Care Unavailable Haagen, Lulu Referring Unavailable Hever Ray Attending Unavailable Kenny Pompa Attending Unavailable Clay Rizzo Consulting Unavailable Alejandro Pool Consulting Unavailable Kenny Pompa Consulting Unavailable Romeo Mina Referring Unavailable Ej Brown Attending Unavailable Haagen, Lulu Primary Care Unavailable Haagen, Lulu Referring Unavailable Ej Arias Attending Unavailable Haagen, Lulu Primary Care Unavailable Friend, Hever Attending Unavailable Haagen, Lulu Primary Care Unavailable Friend, Hever Referring Unavailable Friend, Hever Attending Unavailable Familia Gupta Consulting Unavailable Fabrice Marte Consulting Unavailable Dustin Lizarraga Consulting Unavailable Lg Leong Consulting Unavailable Romeo James Consulting Unavailable Stefany Mg Consulting Unavailable Antonio Alvarez Consulting Unavailable Shelby Abel Consulting Unavailable Horace Pizarro Consulting Unavailable Habtegebriel, Malika Consulting Unavailab le Dand, Cirilo Consulting Unavailable Vargas, Pk Consulting Unavailable Gallo-Pyle, Orlando Consulting UnavailDavid Falcon Consulting Unavailable Eagle, Luciana Consulting Unavailable Aljundi, Lamia Consulting Unavailable Sherine, Mustafizur Consulting UnavailJameel Garcia Consulting Unavailable Michael, Huggins Consulting Unavailable Servin, Chelo Consulting Unavailable Vesta Beavers Consulting Unavailable Ree, Edu Consulting Unavailable Irukulla, Raheem Consulting Unavailable Cyn, Bhargav Consulting Unavailable Dhesi, Varun Consulting Unavailable Kathi Parmar Consulting Unavailable Joe Barragan Consulting Unavailable Shivani Ortiz Consulting Unavailable Juan Jimenez Consulting Unavailable Basim Flores Consulting Unavailable Liz Yang Consulting UnavailAlvin Boucher Consulting Unavailable Romeo Mina Attending Unavailable Romeo Mina Consulting Unavailable Haagen, Lulu Primary Care Unavailable Ej Arias Attending Unavailable Ej Arias Referring Unavailable Haagen, Lulu Primary Care Unavailable Hever Ray Attending Unavailable Hever Ray Referring Unavailable Haagen, Lulu Primary Care Unavailable Romeo Khan Admitting Unavailable Romeo Khan Consulting Unavailable Romeo Mina Attending Unavailable Clay Rizzo Consulting Unavailable Familia Gupta Consulting Unavailable Fabrice Marte Consulting Unavailable Dustin Lizarraga Consulting Unavailable gL Leong Consulting Unavailable Romeo James Consulting Unavailable Stefany Mg Consulting Unavailable Antonio Alvarez Consulting Unavailable Shelby Abel Consulting Unavailable Moira, Horace Consulting Unavailable HabteKeyla maxwells Consulting Unavailab le Dand, Cirilo Consulting Unavailable Vargas, Pk Consulting Unavailable Gallo-Pyle, Orlando Consulting UnavailDavid Falcon Consulting Unavailable Eagle, Luciana Consulting Unavailable Aljundi, Lamia Consulting Unavailable Sherine, Mustafizur Consulting UnavailJameel Garcia Consulting Unavailable Michael, Huggins Consulting Unavailable Servin, Chelo Consulting Unavailable Vesta Beavers Consulting Unavailable Ree, Edu Consulting Unavailable Irukulla, Raheem Consulting Unavailable Cyn, Bhargav Consulting Unavailable Dhesi, Varun Consulting Unavailable Kathi Parmar Consulting Unavailable Joe Barragan Consulting Unavailable Shivani Ortiz Consulting Unavailable Juan Jimenez Consulting Unavailable Basim Flores Consulting Unavailable Liz Yang Consulting UnavailAlvin Boucher Consulting Unavailable Alejandro Pool Consulting Unavailable Kenny Pompa Consulting Unavailable Lisa Robertson Attending Unavailable Romeo Khan Referring Unavailable Elizabeth Caputo Attending Unavailable Alejandro Pool Attending Unavailable [facility] Lulu Primary Care Unavailable Lulu shrestha Referring Unavailable Ej Arias Attending Unavailable [facility] Unavailable Kam Vasquez Attending Unavailable Allergies Allergy Classification Reported Allergen(s) Allergy Type Date of Onset Reaction(s) Facility HMG-CoA Reductase Inhibitors (statins) (2 sources) Simvastatin Drug Allergy 4 Myalgia [facility] (20 sources) Simvastatin; Translations: [SIMVASTATIN] Drug Allergy 4 Other: See Comments, algia [facility] (1 source) Simvastatin Drug Allergy 5 [facility] Medications Current Medications Medication Drug Class(es) Dates Sig (Normalized) Sig (Original) acetaminophen 325 mg / HYDROcodone bitartrate 5 mg oral tablet (1 source) Opioid Agonist Start: 11-11-2022 End: 11-18-2022 take 1 tablet by mouth every eight hours as needed for pain HYDROcodone-acetam inophen (NORCO) 5-325 mg per tablet Indications: Pyogenic arthritis of right knee joint, due to unspecified organism (HCC) Take 1 tablet by mouth every 8 hours as needed for pain for up to 7 days. 7 tablet 0 11/11/2022 11/18/2022 Active Comment on above: Take [address] [facility] every 8 hours as needed for pain for up to 7 days. [id number] 200 actuat albuterol 0.09 mg/actuat metered dose inhaler (20 sources) beta2-Adrenergic Agonist Start: 11-23-2024 Start: 11-23-2024 Start: 01-14-2024 End: 01-21-2024 Albuterol Sulfate 90 mcg/act uation HFA aerosol inhaler Discontinued 2 NMA INHALATION EVERY 4-6 HOURS as needed January 14, 2024 1:00am January 21, 2024 10:49am Start: 12-03-2021 End: 02-09-2024 take 2 puff(s) by inhalation every four hours as needed for wheezing albuterol HFA (VENTOLIN HFA) 90 mcg/actuation inhaler Inhale 2 Puffs as instructed every 4 hours as needed for wheezing/shortness of breath. 1 Each 11 02/09/2024 Active Start: 08-25-2020 End: 08-29-2021 take 2 puff(s) by inhalation every four hours as needed for wheezing albuterol HFA (VENTOLIN HFA) 90 mcg/actuation inhaler Indications: SOB (shortness of breath) Inhale 2 Puffs as instructed every 4 hours as needed for wheezing/shortness of breath. 1 Each 01/25/2021 08/29/2021 Discontinued Comment on above: Inhale 2 Puffs as in structed every 4 hours as needed for wheezing/shortness of breath. amoxicillin 875 mg / clavulanate 125 mg oral tablet (4 sources) Penicillin-class Antibacterial Start: 11-23-2024 Start: 11-23-2024 Start: 12-01-2021 End: 12-06-2021 take 1 tablet by mouth twice daily amoxicillin-clavula lindsay acid (AUGMENTIN) 875-125 mg per tablet Take 1 tablet by mouth twice daily for 5 days. 10 tablet 0 12/01/2021 12/06/2021 Active Comment on above: Take 1 tablet by zulma th twice daily for 5 days. aspirin 81 mg delayed release oral tablet (20 sources) Platelet Aggregation Inhibitor, Nonsteroidal Anti-inflammatory Drug Start: 01-14-2024 take 1 tablet by mouth once daily Start: 01-25-2013 take 1 tablet by zulma th once daily at mealtime Aspirin 81 mg tab Take 1 tablet by mouth once daily. Take with food. 30 tablet 11 01/25/2013 Active Comment on above: Take 1 tablet by zulma th once daily. Take with food. atorvastatin 20 mg oral tablet (20 sources) HMG-CoA Reductase Inhibitor Start: 12-23-19 End: 10-09-19 take 1 tablet by mouth once daily atorvastatin (LIPITOR) 20 mg tablet Indications: Hyperlipidemia, unspecified hyperlipidemia type Take 1 tablet by mouth once daily. 90 tablet 3 10/08/2024 Active Comment on above: Take 1 tablet by zulma th once daily. take 1 tablet by zulma th once daily Blood-Glucose Meter (FREESTYLE LITE METER) monitoring kit (1 source) Start: 08-21-19 End: 08-22-19 Blood-Glucose Meter (FREESTYLE LITE METER) monitoring kit Freestyle LITE Meter Kit - Dx: Type 2 DM - Controlled E11.9 Insulin: No Use once a day as directed by provider 1 Each 0 08/20/2022 08/21/2022 Active Comment on above: Freestyle LITE Meter Kit - Dx: Type 2 DM - Controlled E11.9 Insulin: No Use once a day as directed by provider Blood-Glucose Meter monitoring kit (1 source) Start: 08-25-19 End: 08-26-19 Blood-Glucose Meter monitoring kit Indications: Diabetes mellitus with peripheral artery disease (HCC) Glucose Meter of Choice - Kit - Dx: Type 2 DM - Controlled E11.9 1 Each 0 08/24/2021 08/25/2021 Active Comment on above: Glucose Meter of Cho ice - Kit - Dx: Type 2 DM - Controlled E11.9 12 hr buPROPion hydrochloride 150 mg extended release oral tablet (20 sources) Aminoketone Start: 01-14-20 take 1 tablet by mouth twice daily Start: 05-22-2022 End: 05-25-2024 take 1 tablet by mouth once daily, then take 1 tablet by mouth twice daily, then take 5 tablets by mouth once daily buPROPion SR (WELLBUTRIN SR) 150 mg 12 hr tablet Indications: Tobacco abuse One pill by mouth once daily X 3 days, then increase to twice daily. Take second dose before 6PM. Try to stop smoking on day 5-7. 60 tablet 2 05/22/2022 05/25/2024 Discontinued Comment on above: One pill by mouth on ce daily X 3 days, then increase to twice daily. Take second dose before 6PM. Try to stop smoking on day 5-7. busPIRone hydrochloride 5 mg oral tablet (20 sources) Start: 09-30-19 End: 05-26-19 take 1 tablet by mouth three times daily Comment on above: Take 1 tablet by zulma th three times daily as needed. clindamycin 150 mg oral capsule (7 sources) Lincosamide Antibacterial Start: 01-13-20 24 End: 01-23-20 24 take 1 capsule by mouth three times daily clindamycin (CLEOCIN) 150 mg capsule Indications: Finger infection Take 1 capsule by mouth three times a day for 10 days. 30 capsule 01/13/2024 01/23/2024 Active cyclobenzaprine hydrochloride 5 mg oral tablet (20 sources) Muscle Relaxant Start: 01-25-20 End: 10-27-19 25 take 1 tablet by mouth three times daily as needed Start: 12-28-2020 End: 01-22-2023 take 1 tablet by mouth three times daily as needed cyclobenzaprine (FLEXERIL) 5 mg tablet Indications: Left sided sciatica Take 1 tablet by mouth three times daily as needed. 45 tablet 2 04/09/2021 07/10/2021 Discontinued Comment on above: Take 1 tablet by zulma th three times daily as needed. take 1 tablet by zulma th three times a day if needed Take 1 tablet by zulma th three times a day as needed. etodolac 400 mg oral tablet (14 sources) Nonsteroidal Anti-inflammatory Drug Start: End: take 1 tablet by mouth twice daily etodolac (LODINE) 400 mg tablet Take 1 tablet by mouth two times a day. 60 tablet 10/05/2024 Active fluticasone / salmeterol (20 sources) Corticosteroid, beta2-Adrenergic Agonist Start: take 1 puff(s) by mouth twice daily fluticasone-salmete rol (ADVAIR DISKUS) 250-50 mcg/dose inhaler Inhale 1 Puff as instructed two times a day. RINSE AND GARGLE MOUTH WITH WATER AFTER EACH USE. 1 Each 11 02/09/2024 Active Start: 01-19-2024 End: 02-09-2024 take 1 puff(s) by mouth twice daily fluticasone-salmeterol (ADVAIR DISKUS) 250-50 mcg/dose inhaler Inhale 1 Puff as instructed two times a day. RINSE AND GARGLE MOUTH WITH WATER AFTER EACH USE. 1 Each 1 01/19/2024 02/09/2024 Discontinued Start: 01-19-2024 take 1 puff(s) by mo [facility] twice daily fluticasone-salmeterol (ADVAIR DISKUS) 250-50 mcg/dose inhaler Inhale 1 Puff as instructed two times a day. RINSE AND GARGLE MOUTH WITH WATER AFTER EACH USE. 1 Each 1 01/19/2024 Active Arxjkrogzaq-Skugmuccg-Bsfwxz er (17 sources) Anticholinergic, Corticosteroid, beta2-Adrenergic Agonist Start: 01-14-2024 Start: 12-25-2023 End: 02-09-2024 take 1 puff(s) by inhalation once daily nxysofruasy-wqncywyof-toeznlfu (TRELEGY ELLIPTA) 100-62.5-25 mcg inhalation powder Inhale 1 Puff as instructed once daily. 1 Each 2 12/25/2023 02/09/2024 Discontinued (Not on Formulary) 12 hr guaiFENesin 600 mg ext ended release oral tablet (20 sources) Start: 11-23-2024 take 2 tablets by mo [facility] twice daily, then take 1 tablet by mouth every twelve hours Start: 11-23-2024 take 2 tablets by mo [facility] twice daily, then take 1 tablet by mouth every twelve hours Start: 12-03-2021 End: 10-24-2022 take 2 tablets by mouth twice daily guaiFENesin (MUCINEX) 600 mg 12 hr tablet Indications: Viral upper respiratory tract infection Take 2 tablets by mouth twice daily. 60 tablet 0 03/27/2022 10/24/2022 Discontinued Comment on above: Take 2 tablets by mo [facility] twice daily. ibuprofen 800 mg oral tablet (20 sources) Nonsteroidal Anti-inflammatory Drug Start: 10-11-2022 End: 10-05-2024 take 1 tablet by mouth every eight hours as needed Comment on above: Take [address] [facility] every 8 hours as needed for pain. Take with food. imipramine hydrochloride 50 mg oral tablet (20 sources) Tricyclic Antidepressant Start: 06-28-2022 End: 08-31-2024 take 3 tablets by mouth at bedtime Start: 03-27-2022 take 3 tablets by mo [facility] at bedtime imipramine HCl (TOFRANIL) 50 mg tablet Indications: Recurrent major depressive disorder, in full remission (HCC) take 3 tablets by mouth at bedtime 270 tablet 0 03/27/2022 Active Start: 12-24-2021 take 3 tablets by mo [facility] at bedtime imipramine HCl (TOFRANIL) 50 mg tablet Indications: Recurrent major depressive disorder, in full remission (HCC) take 3 tablets by mouth at bedtime 270 tablet 0 12/24/2021 Active Start: 09-17-2021 take 3 tablets by mo [facility] at bedtime imipramine HCl (TOFRANIL) 50 mg tablet Indications: Recurrent major depressive disorder, in full remission (HCC) take 3 tablets by mouth at bedtime 270 tablet 0 09/17/2021 Active Start: 12-20-2020 End: 06-22-2021 take 3 tablets by mouth at bedtime imipramine HCl (TOFRANIL) 50 mg tablet Indications: Recurrent major depressive disorder, in full remission (HCC) take 3 tablets by mouth at bedtime 270 tablet 03/21/2021 06/22/2021 Discontinued Comment on above: take 3 tablets by mo [facility] at bedtime Take 3 tablets by mo [facility] daily at bedtime. levothyroxine sodium 0.025 mg oral tablet (2 sources) l-Thyroxine Start: 11-23-2024 take 1 tablet by mouth once daily Start: 11-23-2024 take 1 tablet by mouth once da dee lisinopril 5 mg oral tablet (20 sources) Angiotensin Converting Enzyme Inhibitor Start: 12-22-2017 End: 12-04-2023 take 1 tablet by mouth once daily Comment on above: Take 1 tablet by zulma once daily. take 1 tablet by zulma th once daily metFORMIN hydrochloride 500 mg oral tablet (20 sources) Biguanide Start: 12-22-2017 End: 12-04-2023 take 1 tablet by mouth once daily Comment on above: Take 1 tablet by zulma th daily with dinner. take 1 tablet by zulma th once daily with dinner 24 hr nicotine 0.875 mg/hr transdermal system (20 sources) Cholinergic Nicotinic Agonist Start: 06-22-2024 apply 1 dose transdermal route every twenty-four hours nicotine (NICODERM) 14 mg/24 hr Indications: Tobacco use current Apply 1 patch as directed every 24 hours. 14 patch 06/22/2024 Active Start: 06-22-2024 apply 1 dose transde rmal route every twenty-four hours nicotine (NICODERM CQ) 21 mg/24 hr Indications: Tobacco use current Apply 1 patch as directed every 24 hours. APPLY ONE(1) PATCH DAILY. 28 patch 06/22/2024 Active Start: 06-22-2024 nicotine (ANGELI DERM) 7 mg/24 hr Indications: Tobacco use current Apply 1 patch as directed every 24 hours. 14 patch 06/22/2024 Active Start: 12-24-2021 End: 10-24-2022 apply 1 dose transdermal route every twenty-four hours nicotine (NICODERM) 14 mg/24 hr Indications: Tobacco use disorder Apply 1 Patch as directed every 24 hours. No smoking with patch. Apply a patch daily for 2 weeks, then start 7mg patches 14 Patch 0 12/24/2021 10/24/2022 Discontinued Start: 12-24-2021 End: 10-24-2022 apply 1 dose transdermal route every twenty-four hours nicotine (NICODERM) 21 mg/24 hr Indications: Tobacco use disorder Apply 1 Patch as directed every 24 hours. Apply a patch daily for 6 weeks, then start 14mg patches 42 Patch 0 12/24/2021 10/24/2022 Discontinued Start: 12-24-2021 End: 10-24-2022 nicotine (NICODERM) 7 mg/24 hr Indications: Tobacco use disorder Apply 1 Patch as directed every 24 hours. Apply a patch daily for 2 weeks 14 Patch 0 12/24/2021 10/24/2022 Discontinued Start: 01-25-2021 End: 08-24-2021 apply 1 dose transdermal route every twenty-four hours nicotine (NICODERM) 14 mg/24 hr Indications: Tobacco use disorder Apply 1 Patch as directed every 24 hours. No smoking with patch. Apply a patch daily for 2 weeks, then start 7mg patches 14 Patch 01/25/2021 08/24/2021 Discontinued (Other) Start: 01-25-2021 End: 08-24-2021 apply 1 dose transdermal route every twenty-four hours nicotine (NICODERM) 21 mg/24 hr Indications: Tobacco use disorder Apply 1 Patch as directed every 24 hours. Apply a patch daily for 6 weeks, then start 14mg patches 42 Patch 01/25/2021 08/24/2021 Discontinued (Other) Start: 01-25-2021 End: 08-24-2021 nicotine (NICODERM) 7 mg/24 hr Indications: Tobacco use disorder Apply 1 Patch as directed every 24 hours. Apply a patch daily for 2 weeks 14 Patch 01/25/2021 08/24/2021 Discontinued (Other) Comment on above: Apply 1 Patch as dir ected every 24 hours. Apply a patch daily for 6 weeks, then start 14mg patches Apply 1 Patch as dir ected every 24 hours. No smoking with patch. Apply a patch daily for 2 weeks, then start 7mg patches Apply 1 Patch as dir ected every 24 hours. Apply a patch daily for 2 weeks ondansetron 4 mg oral tablet (20 sources) Serotonin-3 Receptor Antagonist Start: 01-14-2024 take 1 tablet by mouth every eight hours as needed Start: 10-04-2020 End: 02-20-2022 take 1 tablet by mouth every eight hours as needed ondansetron orally disintegrating (ZOFRAN ODT) 4 mg disintegrating tablet Take 1 tablet by mouth every 8 hours as needed for nausea/vomiting. 18 tablet 02/20/2022 Active Comment on above: Take 1 tablet by zulma th every 8 hours as needed for nausea/vomiting. pantoprazole 40 mg delayed release oral tablet (20 sources) Proton Pump Inhibitor Start: 11-23-2024 take 1 tablet by mouth once daily Start: 11-23-2024 take 1 tablet by zulma th once daily Start: 03-26-2024 End: 11-23-2024 take 1 tablet by mouth once daily Pantoprazole 40 mg tablet,delayed release (DR/EC) Discontinued 40 mg PO DAILY 90 March 26, 2024 1:00am November 23, 2024 3:56pm penicillin v potassium 500 mg oral tablet (3 sources) Start: 10-01-2024 End: 10-08-2024 take 1 tablet by mouth four times daily penicillin V potassium 500 mg tablet Indications: Pain, dental Take 1 tablet by mouth four times daily for 7 days. 28 tablet 10/01/2024 10/08/2024 Active polyethylene glycol 3350 514888 mg / potassium chloride 2970 mg / sodium bicarbonate 6740 mg / sodium chloride 5860 mg / sodium sulfate 82882 mg powder for oral solution (1 source) Osmotic Laxative Start: 08-13-2023 End: 08-13-2023 peg 3350-Electrolytes (GOLYTELY) 236-22.74-6.74 -5.86 gram suspension Take 4,000 mL by mouth one time only for 1 dose. 1 Each 0 08/13/2023 08/13/2023 Active predniSONE 20 mg oral tablet (8 sources) Start: 11-23-2024 take 2 tablets by mouth at breakfast Start: 11-23-2024 take 2 tablets by mo uth at breakfast Start: 05-02-2024 End: 05-11-2024 predniSONE (DELTASONE) 10 mg tablet Indications: Left sided sciatica , Acute left-sided low back pain with left-sided sciatica Take 4 tabs daily for 3 days, then 2 tabs daily for 3 days, then 1 tab daily for 3 days with food. 21 tablet 05/02/2024 05/11/2024 Active Start: 09-17-2023 End: 09-22-2023 take 2 tablets by mouth once daily predniSONE (DELTASONE) 20 mg tablet Indications: Sciatica, right side Take 2 tablets by mouth once daily for 5 days. 10 tablet 0 09/17/2023 09/22/2023 Active Start: 09-15-2022 End: 09-20-2022 take 2 tablets by mouth once daily predniSONE (DELTASONE) 20 mg tablet Indications: Upper back pain Take 2 tablets by mouth once daily for 5 days. 10 tablet 0 09/15/2022 09/20/2022 Active Start: 12-03-2021 End: 12-15-2021 predniSONE (DELTASONE) 10 mg tablet Indications: Sinobronchitis Take 4 tabs daily x 3 days, then 3 tabs x 3 days, 2 tabs x 3 days, then 1 tab x3 days with food. 30 tablet 0 12/03/2021 12/15/2021 Active Start: 11-28-2021 End: 12-03-2021 take 2 tablets by mouth once daily predniSONE (DELTASONE) 20 mg tablet Take 2 tablets by mouth once daily for 5 days. 10 tablet 0 11/28/2021 12/03/2021 Active Comment on above: Take 2 tablets by mo ut once daily for 5 days. Take 4 tabs daily x 3 days, then 3 tabs x 3 days, 2 tabs x 3 days, then 1 tab x3 days with food. thiothixene 2 mg oral capsule (20 sources) Typical Antipsychotic Start: 01-14-2024 take 1 capsule by mouth twice daily Start: 11-06-2020 End: 02-23-2024 take 2 capsules by mouth twice daily thiothixene (NAVANE) 1 mg capsule Indications: Recurrent major depressive disorder, in full remission Take 2 capsules by mouth two times a day. 120 capsule 11 02/23/2024 Active Start: 12-22-2017 End: 01-14-2024 take 1 capsule by mouth once daily Thiothixene 2 MG capsule Discontinued 2 mg PO DAILY December 22, 2017 1:00am January 14, 2024 5:16pm Comment on above: Take 2 capsules by m outh twice daily. Take 2 capsules by m outh two times a day. 10 actuat tiotropium 0.0025 mg/actuat inhalation spray (20 sources) Anticholinergic Start: 01-16-20 End: 02-09-20 take 2 puff(s) by inhalation once daily tiotropium bromide (SPIRIVA RESPIMAT) 2.5 mcg/actuation inhaler Inhale 2 Puffs as instructed once daily. 1 Each 02/09/2024 Active zolpidem tartrate 10 mg oral tablet (20 sources) gamma-Aminobutyric Acid-ergic Agonist Start: 01-14-20 take 1 tablet by mouth at bedtime as needed for sleep Start: 04-09-2022 End: 01-14-2023 take 1 tablet by mouth at bedtime as needed zolpidem (AMBIEN) 10 mg Indications: Chronic insomnia Take 1 tablet by mouth at bedtime as needed (insomnia) for up to 90 days. 30 tablet 1 10/16/2022 10/24/2022 Discontinued Start: 03-16-2022 End: 11-19-2024 take 1 tablet by mouth once daily at bedtime zolpidem (AMBIEN) 10 mg Indications: Chronic insomnia Take 1 tablet by mouth daily at bedtime for 30 days. 30 tablet 10/20/2024 11/19/2024 Active Start: 12-17-2021 End: 03-14-2022 take 1 tablet by mouth once daily at bedtime zolpidem (AMBIEN) 10 mg Indications: Chronic insomnia , Medication monitoring encounter Take 1 tablet by mouth daily at bedtime for 30 days. 30 tablet 0 02/12/2022 03/08/2022 Discontinued Start: 09-20-2021 End: 11-16-2021 take 1 tablet by mouth at bedtime zolpidem (AMBIEN) 10 mg Indications: Chronic insomnia , Medication monitoring encounter take 1 tablet by mouth at bedtime 30 tablet 1 10/17/2021 Active Start: 08-30-2021 End: 08-24-2021 take 1 tablet by mouth once daily at bedtime zolpidem (AMBIEN) 10 mg Indications: Chronic insomnia , Medication monitoring encounter take 1 tablet by mouth daily at bedtime 30 tablet 0 08/30/2021 08/24/2021 Discontinued (Other) Start: 08-30-2021 End: 08-24-2021 take 1 tablet by mouth once daily at bedtime zolpidem (AMBIEN) 10 mg Indications: Chronic insomnia , Medication monitoring encounter take 1 tablet by mouth daily at bedtime 30 tablet 0 08/30/2021 08/24/2021 Discontinued (Other) Start: 07-31-2021 End: 09-24-2021 take 1 tablet by mouth once daily at bedtime zolpidem (AMBIEN) 10 mg Indications: Chronic insomnia , Medication monitoring encounter Take 1 tablet by mouth daily at bedtime for 30 days. Do not start before August 25, 2021. 30 tablet 0 08/25/2021 09/19/2021 Discontinued Start: 04-30-2021 End: 07-29-2021 take 1 tablet by mouth once daily at bedtime zolpidem (AMBIEN) 10 mg Indications: Chronic insomnia , Medication monitoring encounter Take 1 tablet by mouth daily at bedtime for 30 days. 30 tablet 05/30/2021 06/26/2021 Discontinued Start: 01-10-2021 End: 02-07-2021 take 1 tablet by mouth at bedtime zolpidem (AMBIEN) 10 mg Indications: Chronic insomnia , Medication monitoring encounter take 1 tablet by mouth at bedtime 30 tablet 01/10/2021 02/07/2021 Discontinued Comment on above: Take 1 tablet by zulma th daily at bedtime for 30 days. Take 1 tablet by zulma th daily at bedtime for 30 days. Do not start before June 29, 2021. take 1 tablet by zulma th daily at bedtime Take 1 tablet by zulma th daily at bedtime for 30 days. Do not start before August 25, 2021. take 1 tablet by zulma th at bedtime Take 1 tablet by zulma th daily at bedtime for 30 days. Do not start before December 17, 2021. Take 1 tablet by zulma daily at bedtime for 30 days. Do not start before January 15, 2022. Take 1 tablet by zulma daily at bedtime for 30 days. Do not start before March 16, 2022. Take 1 tablet by zulma at bedtime as needed (insomnia) for up to 90 days. Completed/Discontinued Medications Medication Drug Class(es) Dates Sig (Normalized) Sig (Original) bisacodyl 5 mg delayed release oral tablet (20 sources) Stimulant Laxative Start: 09-29-2020 End: 05-25-2024 Bisacodyl (DULCOLAX) 5 mg tab Indications: Screening for colon cancer Use as directed for Miralax / Gatorade Bowel Prep Kit 4 tablet 09/29/2020 05/25/2024 Discontinued (Other) Comment on above: Use as directed for Miralax / Gatorade Bowel Prep Kit 30 ml bupivacaine hydrochloride 5 mg/ml injection (2 sources) Amide Local Anesthetic Start: 08-24-2024 End: 08-24-2024 BUPivacaine (PF) 0.5 % (5 mg/mL) 2 mL injection Start: 08-24-2024 End: 08-24-2024 2 mL, Injection - FOR ORTHO USE ONLY, ONCE, 1 dose, Starting on Fri08/24/24 at 1026, Until Fri08/24/24 at 1026 cefdinir 300 mg oral capsule (4 sources) Cephalosporin Antibacterial Start: 10-18-2022 take 1 capsule by mouth twice daily cefdinir (OMNICEF) 300 mg capsule Take 1 capsule by mouth twice daily. 20 capsule 0 10/18/2022 Suspended Comment on above: Take 1 capsule by mo [facility] twice daily. 30 actuat fluticasone furoate 0.1 mg/actuat / vilanterol 0.025 mg/actuat dry powder inhaler (7 sources) Corticosteroid, beta2-Adrenergic Agonist Start: 01-16-2024 End: 02-09-2024 take 1 dose by inhalation once daily BREO ELLIPTA 100-25 mcg/dose inhaler Inhale 1 Inhalation as instructed once daily. 1 Each 2 01/16/2024 02/09/2024 Discontinued (Not on Formulary) Gatorade Sports Drink (20 sources) Start: 09-29-2020 End: 05-25-2024 Gatorade Sports Drink Indications: Screening for colon cancer Use as directed for Miralax / Gatorade Bowel Prep Kit 64 oz 09/29/2020 05/25/2024 Discontinued (Other) Start: 09-29-2020 Gatorade Sport s Drink Indications: Screening for colon cancer Use as directed for Miralax / Gatorade Bowel Prep Kit 64 oz 09/29/2020 Active Start: 09-29-2020 Gatorade Sport s Drink Indications: Screening for colon cancer Use as directed for Miralax / Gatorade Bowel Prep Kit 64 oz 0 09/29/2020 Suspended Start: 09-29-2020 Gatorade Sport s Drink Indications: Screening for colon cancer Use as directed for Miralax / Gatorade Bowel Prep Kit 64 oz 0 09/29/2020 Active Comment on above: Use as directed for Miralax / Gatorade Bowel Prep Kit 10 ml lidocaine hydrochloride 10 mg/ml injection (2 sources) Antiarrhythmic, Amide Local Anesthetic Start: 08-24-2024 End: 08-24-2024 lidocaine (PF) 10 mg/mL (1 %) 2 mL injection (XYLOCAINE) Start: 08-24-2024 End: 08-24-2024 2 mL, Injection - FOR ORTHO USE ONLY, ONCE, 1 dose, Starting on Fri08/24/24 at 1026, Until Fri08/24/24 at 1026 melatonin 5 mg oral capsule (20 sources) Start: 03-10-2017 End: 01-21-2024 Melatonin 5 mg capsule Discontinued mg PO January 14, 2024 1:00am January 21, 2024 10:51am Comment on above: Take 1 capsule by mo [facility] once daily. meloxicam 15 mg oral tablet (2 sources) Nonsteroidal Anti-inflammatory Drug Start: 04-28-2021 End: 05-28-2021 take 1 tablet by mouth once daily as needed for pain meloxicam (MOBIC) 15 mg tablet Indications: Acute pain of right shoulder Take 1 tablet by mouth once daily as needed for pain. With food. 30 tablet 0 04/28/2021 05/28/2021 Comment on above: Take [address] [facility] once daily as needed for pain. With food. methylPREDNISolone (3 sources) Corticosteroid Start: 09-09-2023 End: 09-15-2023 methylPREDNISolone (MEDROL, TIMBO,) 4 mg Dose-Pack Indications: Sciatica, right side Follow dosing instructions, take with food. 21 tablet 0 09/09/2023 09/15/2023 Start: 09-09-2023 End: 09-15-2023 methylPREDNISolone (MEDROL, TIMBO,) 4 mg Dose-Pack Indications: Sciatica, right side Follow dosing instructions, take with food. 21 tablet 0 09/09/2023 09/15/2023 Active 24 hr NIFEdipine 30 mg extended release oral tablet (20 sources) Dihydropyridine Calcium Channel Venkata Start: 09-29-2020 End: 10-24-2022 take 1 tablet by mouth once daily NIFEdipine XL (ADALAT CC) 30 mg 24 hr tablet Indications: Hypertension, essential Take 1 tablet by mouth once daily. 90 tablet 3 09/29/2020 11/12/2021 Discontinued Comment on above: Take 1 tablet by zulma th once daily. take 1 tablet by zulma th once daily omeprazole 20 mg delayed release oral capsule (20 sources) Proton Pump Inhibitor Start: 12-14-2021 End: 05-25-2024 take 1 capsule by mouth once daily Omeprazole 20 mg capsule,delayed release(DR/EC) Discontinued 20 mg PO daily January 14, 2024 1:00am January 21, 2024 10:51am Comment on above: Take 1 capsule by mo [facility] daily before breakfast. 1/2 hr before meal. perflutren lipid microspheres 1.3 mL in NaCl (PF) 0.9% 10 mL injection (DEFINITY) (20 sources) Start: 07-14-2020 End: 10-13-2021 perflutren lipid microspheres 1.3 mL in NaCl (PF) 0.9% 10 mL injection (DEFINITY) polyethylene glycol 3350 70032 mg powder for oral solution (20 sources) Osmotic Laxative Start: 09-29-2020 End: 10-01-2024 polyethylene glycol 3350 (MIRALAX, GLYCOLAX) 17 gram/dose powder Indications: Screening for colon cancer Use as directed for Miralax / Gatorade Bowel Prep Kit 238 g 09/29/2020 10/01/2024 Discontinued (Other) Comment on above: Use as directed for Miralax / Gatorade Bowel Prep Kit 125 ml sodium chloride 9 mg/ml prefilled syringe (20 sources) Start: 07-14-2020 End: 10-13-2021 sodium chloride 0.9 % (flush) 10 mL (BD POSIFLUSH) tirzepatide (MOUNJARO) 2.5 mg/0.5 mL pen injector (2 sources) Start: 05-25-2024 End: 05-26-2024 inject 2.5 mg by subcutaneous injection every week tirzepatide (MOUNJARO) 2.5 mg/0.5 mL pen injector Indications: Controlled type 2 diabetes mellitus without complication, without long-term current use of insulin (HCC) Inject 2.5 mg subcutaneously one time a week. 4 each 05/25/2024 05/26/2024 Discontinued (Cost of medication) Start: 05-25-2024 inject 2.5 mg by sub cutaneous injection every week tirzepatide (MOUNJARO) 2.5 mg/0.5 mL pen injector Indications: Controlled type 2 diabetes mellitus without complication, without long-term current use of insulin (HCC) Inject 2.5 mg subcutaneously one time a week. 4 each 05/25/2024 Active Problems Active Problems Problem Classification Problem Date Documented Da te Episodic/Chronic Anxiety disorders (20 sources) Anxiety; Translations: [Other specified anxiety disorders] Onset: 9 10-20-2018 Chronic Cardiac dysrhythmias (20 sources) Premature atrial contraction; Translations: [Atrial premature depolarization] Onset: 0 03-30-2019 Chronic Chronic obstructive pulmonary disease and bronchiectasis (20 sources) Mucopurulent chronic bronchitis; Translations: [Mucopurulent chronic bronchitis] Onset: 9 05-05-2018 Chronic Chronic obstructive pulmonary disease and bronchiectasis (5 sources) Bronchitis; Translations: [Bronchitis, not specified as acute or chronic] Onset: 5 12-01-2024 Episodic Coronary atherosclerosis and other heart disease (20 sources) Coronary arteriosclerosis; Translations: [Atherosclerotic heart disease of [place] coronary artery without angina pectoris] Onset: 5 05-15-2024 Chronic Diabetes mellitus with complications (20 sources) Diabetes mellitus; Translations: [Type 2 diabetes mellitus with diabetic peripheral angiopathy without gangrene] Onset: 6 03-06-2015 Chronic Diabetes mellitus without complication (20 sources) Type 2 diabetes mellitus without complication; Translations: [Type 2 diabetes mellitus without complications] Onset: 7 10-19-2022 Chronic Diseases of white blood cells (2 sources) Leukocytosis; Translations: [Elevated white blood cell count, unspecified] 11-18-2024 Chronic Disorders of lipid metabolism (20 sources) Hyperlipidemia; Translations: [Hyperlipidemia, unspecified] Onset: 7 Resolved: 3 12-13-2014 Chronic Disorders of teeth and jaw (2 sources) Toothache; Translations: [Other specified disorders of teeth and supporting structures] Onset: 5 10-01-2024 Episodic Esophageal disorders (1 source) Gastroesophageal reflux disease; Translations: [Gastro-esophageal reflux disease without esophagitis] Chronic Essential hypertension (20 sources) Essential hypertension; Translations: [Essential (primary) hypertension] Onset: Chronic Fluid and electrolyte disorders (20 sources) Hyponatremia; Translations: [Hypo-osmolality and hyponatremia] Onset: 6 03-17-2015 Episodic Gastritis and duodenitis (5 sources) Duodenitis; Translations: [Duodenitis without bleeding] Onset: 5 12-01-2024 Episodic Headache; including migraine (1 source) Headache; Translations: [Headache, unspecified headache type] Episodic Immunizations and screening for infectious disease (2 sources) Contact with or exposure to other viral diseases; Translations: [Exposure to confirmed case of COVID-19] Onset: 5 Episodic Intestinal infection (1 source) Viral gastroenteritis; Translations: [Viral intestinal infection, unspecified] Episodic Miscellaneous mental health disorders (20 sources) Chronic insomnia; Translations: [Psychophysiologic insomnia] Onset: 8 02-11-2017 Chronic Mood disorders (20 sources) Recurrent major depression in full remission; Translations: [Major depressive disorder, recurrent, in full remission] Onset: 6 Resolved: 8 03-10-2017 Chronic Nausea and vomiting (2 sources) Vomiting without nausea; Translations: [Vomiting without nausea] Episodic Neoplasms of unspecified nature or uncertain behavior (5 sources) Polycythemia vera (clinical); Translations: [Polycythemia vera] Onset: 5 11-18-2024 Chronic Noninfectious gastroenteritis (6 sources) Noninfective gastroenteritis and colitis, unspecified; Translations: [Focal active colitis] Onset: 5 12-01-2024 Episodic Occlusion or stenosis of precerebral arteries (4 sources) Bilateral stenosis of carotid arteries; Translations: [Occlusion and stenosis of bilateral carotid arteries] Onset: 5 12-30-2023 Chronic Osteoarthritis (2 sources) Osteoarthritis of right knee joint; Translations: [Other unilateral secondary osteoarthritis of knee] Onset: 5 08-24-2024 Chronic Other aftercare (20 sources) Patient encounter status; Translations: [Encounter for therapeutic drug level monitoring] Episodic Other aftercare (2 sources) Encounter for removal of sutures; Translations: [Encounter for removal of sutures] Onset: Episodic Other bone disease and musculoskeletal deformities (3 sources) Clavicle pain; Translations: [Other specified disorders of bone, shoulder] 07-18-2018 Episodic Other circulatory disease (3 sources) H/O: hypertension; Translations: [Personal history of other diseases of the circulatory system] 07-17-2018 Episodic Other circulatory disease (4 sources) Low blood pressure; Translations: [Hypotension, unspecified] 12-01-2024 Episodic Other circulatory disease (1 source) Hypotension, unspecified; Translations: [Hypotension, unspecified] Onset: Episodic Other congenital anomalies (1 source) Porokeratosis; Translations: [Other specified congenital malformations of skin] 08-20-2023 Chronic Other connective tissue disease (1 source) Pain of toe of right foot; Translations: [Pain in right toe(s)] Episodic Other connective tissue disease (3 sources) Synovial cyst of knee; Translations: [Synovial cyst of popliteal space [Frances], unspecified knee] 10-09-2022 Episodic Other endocrine disorders (4 sources) Hypoadrenalism; Translations: [Unspecified adrenocortical insufficiency] 12-01-2024 Chronic Other endocrine disorders (1 source) Unspecified adrenocortical insufficiency; Translations: [Unspecified adrenocortical insufficiency] Onset: Chronic Other gastrointestinal disorders (1 source) Diarrhea; Translations: [Diarrhea, unspecified] Episodic Other gastrointestinal disorders (2 sources) Diarrhea, unspecified; Translations: [Diarrhea, unspecified type] Onset: Episodic Other injuries and conditions due to external causes (4 sources) Hypothermia; Translations: [Hypothermia, initial encounter] 11-19-2024 Episodic Other injuries and conditions due to external causes (1 source) Hypothermia, initial encounter; Translations: [Hypothermia, initial encounter] Onset: Episodic Other liver diseases (20 sources) Non-alcoholic fatty liver; Translations: [Fatty (change of) liver, not elsewhere classified] Onset: 5 10-13-2014 Chronic Other liver diseases (20 sources) Fatty (change of) liver, not elsewhere classified; Translations: [Other chronic nonalcoholic liver disease] Onset: 5 10-13-2014 Chronic Other lower respiratory disease (7 sources) Dyspnea; Translations: [Shortness of breath] Episodic Other lower respiratory disease (1 source) Cough; Translations: [Acute cough] Episodic Other lower respiratory disease (5 sources) Wheezing; Translations: [Wheezing] 2023 Episodic Other lower respiratory disease (2 sources) Snoring; Translations: [Snoring] 01-14-2024 Episodic Other nervous system disorders (1 source) Tremor; Translations: [Tremor, unspecified] Episodic Other nervous system disorders (1 source) Abnormal sensation; Translations: [Other disturbances of skin sensation] Episodic Other non-traumatic joint disorders (4 sources) Pain in unspecified knee; Translations: [Knee pain] 10-09-2022 Episodic Other non-traumatic joint disorders (1 source) Swollen knee region; Translations: [Effusion, unspecified knee] 10-11-2022 Episodic Other non-traumatic joint disorders (1 source) Effusion of right knee joint; Translations: [Effusion, right knee] 10-18-2022 Episodic Other non-traumatic joint disorders (1 source) Shoulder joint pain; Translations: [Pain in left shoulder] 08-24-2024 Episodic Other nutritional; endocrine; and metabolic disorders (4 sources) Obese class I; Translations: [Class 1 obesity] 11-19-2024 Chronic Other nutritional; endocrine; and metabolic disorders (3 sources) History of hypercholesterolemia; Translations: [Personal history of other endocrine, nutritional and metabolic disease] 07-17-2018 Episodic Other nutritional; endocrine; and metabolic disorders (3 sources) History of diabetes mellitus type 2; Translations: [Personal history of other endocrine, nutritional and metabolic disease] 07-17-2018 Episodic Other nutritional; endocrine; and metabolic disorders (2 sources) Body mass index 25-29 - overweight; Translations: [Overweight] 06-14-2024 Episodic Other screening for suspected conditions (not mental disorders or infectious disease) (20 sources) Thyroid hormone tests abnormal; Translations: [Other specified abnormal findings of blood chemistry] Onset: Episodic Other skin disorders (1 source) Lesion of skin of face; Translations: [Disorder of the skin and subcutaneous tissue, unspecified] Episodic Other skin disorders (1 source) Localized swelling of right lower leg; Translations: [Localized swelling, mass and lump, right lower limb] 10-15-2022 Episodic Other skin disorders (1 source) Dystrophia unguium; Translations: [Nail dystrophy] 08-20-2023 Episodic Other upper respiratory disease (2 sources) Acute bronchospasm; Translations: [Acute bronchospasm] 11-18-2024 Episodic Other upper respiratory infections (2 sources) Chronic sinusitis; Translations: [Chronic sinusitis, unspecified] 11-05-2023 Chronic Other upper respiratory infections (2 sources) Acute upper respiratory infection; Translations: [Acute upper respiratory infection, unspecified] Episodic Peripheral and visceral atherosclerosis (20 sources) Peripheral vascular disease, unspecified; Translations: [Peripheral vascular disease, unspecified] Onset: 03-06-2015 Chronic Residual codes; unclassified (1 source) Other specified personal risk factors, not elsewhere classified; Translations: [Other specified personal history presenting hazards to health] Episodic Residual codes; unclassified (3 sources) Pain; Translations: [Pain, unspecified] 08-06-2023 Episodic Residual codes; unclassified (2 sources) History of chest pain; Translations: [Personal history of other specified conditions] 09-09-2023 Episodic Residual codes; unclassified (1 source) Left before being seen; Translations: [Procedure and treatment not carried out due to patient leaving prior to being seen by health care provider] 02-02-2024 Episodic Respiratory failure; insufficiency; arrest (adult) (5 sources) Acute respiratory failure; Translations: [Acute respiratory failure, unspecified whether with hypoxia or hypercapnia] Onset: 5 12-01-2024 Episodic Shock (5 sources) Shock; Translations: [Shock, unspecified] Onset: 5 11-18-2024 Episodic Sprains and strains (2 sources) Strain of muscle of upper limb; Translations: [Strain of unspecified muscle, fascia and tendon at shoulder and upper arm level, right arm, initial encounter] Onset: 5 10-09-2024 Episodic Substance-related disorders (20 sources) Tobacco user; Translations: [Nicotine dependence, unspecified, uncomplicated] Onset: 3 Chronic Superficial injury; contusion (8 sources) Contusion of upper limb; Translations: [Contusion of right upper arm, initial encounter] Onset: 5 Episodic Thyroid disorders (6 sources) Thyrotoxicosis, unspecified without thyrotoxic crisis or storm; Translations: [Hypothyroidism] Onset: 5 11-19-2024 Chronic Unclassified (2 sources) Patient encounter status 04-06-2024 Unclassified (1 source) Right knee pain, unspecified chronicity 08-04-2024 Unclassified (2 sources) For guaiac positive stools Unclassified (1 source) Acidosis, unspecified; Translations: [Acidosis, unspecified] Onset: 5 Unclassified (1 source) Obesity, class 1; Translations: [Obesity, class 1] Onset: 5 Past or Other Problems Problem Classification Problem Date Documented Da te Episodic/Chronic Abdominal pain (20 sources) Right upper quadrant pain; Translations: [Right upper quadrant pain] Onset: 09-24-2017 Resolved: 03-09-2018 Episodic Cardiac dysrhythmias (3 sources) Palpitations; Translations: [Palpitations] Onset: 01-28-2024 01-14-2024 Episodic Infective arthritis and osteomyelitis (except that caused by tuberculosis or sexually transmitted disease) (20 sources) 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; Translations: [Staphylococcal arthritis, right knee] Onset: 10-19-2022 10-19-2022 Episodic Nonspecific chest pain (2 sources) Chest pain; Translations: [Chest pain, unspecified] Onset: 03-26-2024 04-29-2023 Episodic Other aftercare (1 source) Encounter for therapeutic drug level monitoring; Translations: [Medication monitoring encounter] Onset: 01-14-2024 Episodic Other circulatory disease (1 source) Personal history of other diseases of the circulatory system; Translations: [Personal history of other diseases of the circulatory system] Onset: 03-26-2024 Episodic Other connective tissue disease (20 sources) Impingement syndrome of right shoulder region; Translations: [Impingement syndrome of right shoulder] Onset: 10-20-2018 10-20-2018 Episodic Other connective tissue disease (20 sources) Nontraumatic complete rupture of rotator cuff of right shoulder; Translations: [Complete rotator cuff tear or rupture of right shoulder, not specified as traumatic] Onset: 06-26-2021 Episodic Other gastrointestinal disorders (20 sources) Alteration in bowel elimination; Translations: [Change in bowel habit] Onset: 09-24-2017 09-24-2017 Episodic Other gastrointestinal disorders (20 sources) Altered bowel function; Translations: [Change in bowel habit] Onset: 09-24-2017 09-24-2017 Episodic Other lower respiratory disease (1 source) Wheezing; Translations: [Wheezing] Onset: 12-18-2023 Episodic Other non-traumatic joint disorders (20 sources) Chronic pain of right upper limb; Translations: [Pain in right shoulder] Onset: 06-26-2021 Episodic Other non-traumatic joint disorders (5 sources) Pain in right knee; Translations: [Pain in joint, lower leg] Onset: 08-24-2024 10-15-2022 Episodic Other non-traumatic joint disorders (1 source) Pain in left shoulder; Translations: [Trigger point of left shoulder region] Onset: 08-24-2024 Episodic Other nutritional; endocrine; and metabolic disorders (1 source) Personal history of other endocrine, nutritional and metabolic disease; Translations: [Personal history of other endocrine, nutritional and metabolic disease] Onset: 03-26-2024 Episodic Other skin disorders (20 sources) Lump on face; Translations: [Localized swelling, mass and lump, head] Onset: 12-24-2018 12-24-2018 Episodic Residual codes; unclassified (20 sources) Tobacco user; Translations: [Tobacco use] Onset: 12-20-2010 12-20-2010 Episodic Residual codes; unclassified (1 source) Tobacco use; Translations: [Tobacco use current] Onset: 06-22-2024 Episodic Residual codes; unclassified (1 source) Procedure and treatment not carried out due to patient leaving prior to being seen by health care provider; Translations: [Patient left without being seen] Onset: 02-02-2024 Episodic Skin and subcutaneous tissue infections (3 sources) Infection of finger; Translations: [Local infection of the skin and subcutaneous tissue, unspecified] Onset: 01-13-2024 01-13-2024 Episodic Spondylosis; intervertebral disc disorders; other back problems (20 sources) Sciatica; Translations: [Sciatica, left side] Onset: 12-24-2018 12-24-2018 Episodic Substance-related disorders (20 sources) Caffeine-related disorder; Translations: [Other stimulant use, unspecified, uncomplicated] Onset: 04-05-2019 04-05-2019 Episodic Results Test Name Value Interpretation Reference Range Facility [facility] 12-18-2024 Atypical pANCA <1:20 Normal Neg:<1:20 [facility] Comment on above: Result Comment: The atypical pANCA pattern has been observed in asignificant percentage of patients with ulcerative colitis,primary sclerosing cholangitis and autoimmune hepatitis. Performed By: #### L 100.0100, L3200.1100, L2100.0000, L101.9900, L504.2610, L501.6710, L3400.8000, L3410.2400, L5500.0550, L3100.3425, L3300.1800, L3300.1200 ####[facility] [address] [facility]. [place], [place], [id number] Cytoplasmic Ab <1:20 Normal Neg:<1:20 [facility] Comment on above: Performed By: #### L 100.0100, L3200.1100, L2100.0000, L101.9900, L504.2610, L501.6710, L3400.8000, L3410.2400, L5500.0550, L3100.3425, L3300.1800, L3300.1200 ####[facility] [address] [facility]. [place], [place], [phone] Perinuclear Ab. <1:20 Normal Neg:<1:20 [facility] Comment on above: Result Comment: The presence of positive fluorescence exhibiting P-ANCA orC-ANCA patterns alone is not specific for the diagnosis ofWegener's Granulomatosis (WG) or microscopic polyangiitis.Decisions about treatment should not be based solely onANCA IFA results. The International ANCA Group Consensusrecommends follow up testing of positive sera with both NE-3 and MPO-ANCA enzyme immunoassays. As many as 5% serumsamples are positive only by EIA. Ref. AM J Clin Jsvdzl5452;111:507-513. Performed By: #### L 100.0100, L3200.1100, L2100.0000, L101.9900, L504.2610, L501.6710, L3400.8000, L3410.2400, L5500.0550, L3100.3425, L3300.1800, L3300.1200 ####[facility] [address] [facility]. [place], [place], [phone] Celiac Disease Profileon ENDOMYSIAL IGA Negative Normal Negative [facility] Comment on above: Performed By: #### L 100.0100, L3200.1100, L2100.0000, L101.9900, L504.2610, L501.6710, L3400.8000, L3410.2400, L5500.0550, L3100.3425, L3300.1800, L3300.1200 ####[facility] [address] [facility] [address] [place], [place], [phone] tTG IGA <2 Normal 0-3 [facility] Comment on above: Result Comment: Nega tive 0 - 3 Weak Positive 4 - 10 Positive >10 Tissue Transglutaminase (tTG) has been identified as the endomysial antigen. Studies have demonstr- ated that endomysial IgA antibodies have over 99% specificity for gluten sensitive enteropathy. Performed By: #### L 100.0100, L3200.1100, L2100.0000, L101.9900, L504.2610, L501.6710, L3400.8000, L3410.2400, L5500.0550, L3100.3425, L3300.1800, L3300.1200 ####[facility] [address] [place], [place], [phone] Gastrin, Serumon 12-18-2024 GASTRIN 65 pg/mL Normal 0-115 [facility] Comment on above: Result Comment: Siem Immulite 2000 Immunochemiluminometric assay (ICMA)Values obtained with different assay methods or kits cannotbe used interchangeably. Results cannot be interpreted asabsolute evidence of the presence or absence of malignantdisease.Performed at: [facility] [employer] [id number] Director: Jaxon Robles PhD, Phone: [phone] at: [address] [id number] Director: Jessica Gomez MD, Phone: [phone] Performed By: #### L 100.0100, L3200.1100, L2100.0000, L101.9900, L504.2610, L501.6710, L3400.8000, L3410.2400, L5500.0550, L3100.3425, L3300.1800, L3300.1200 ####[facility] [address] [place], [place], [phone] MARIALUISA + Protein Elect, Serumon 12-18-2024 Albumin [Mass/Vol] 2.4 g/dL Low 2.9-4.4 [facility] Comment on above: Order Comment: Y Performed By: #### L 100.0100, L3200.1100, L2100.0000, L101.9900, L504.2610, L501.6710, L3400.8000, L3410.2400, L5500.0550, L3100.3425, L3300.1800, L3300.1200 ####[facility] [address] [place], [place], [phone] Albumin/Globulin [Mass ratio] 1.0 {ratio} Normal 0.7-1.7 [facility] Comment on above: Order Comment: Y Performed By: #### L 100.0100, L3200.1100, L2100.0000, L101.9900, L504.2610, L501.6710, L3400.8000, L3410.2400, L5500.0550, L3100.3425, L3300.1800, L3300.1200 ####[facility] [address] [place], [place], [phone]) YCCLU-4-FEHA 0.4 g/dL Normal 0.0-0.4 [facility] Comment on above: Order Comment: Y Performed By: #### L 100.0100, L3200.1100, L2100.0000, L101.9900, L504.2610, L501.6710, L3400.8000, L3410.2400, L5500.0550, L3100.3425, L3300.1800, L3300.1200 ####[facility] [address] [place], [place], [phone]) HUWCC-1-JZFH 0.8 g/dL Normal 0.4-1.0 [facility] Comment on above: Order Comment: Y Performed By: #### L 100.0100, L3200.1100, L2100.0000, L101.9900, L504.2610, L501.6710, L3400.8000, L3410.2400, L5500.0550, L3100.3425, L3300.1800, L3300.1200 ####[facility] [address] [place], [phone]) BETA GLOBULIN 0.7 g/dL Normal 0.7-1.3 [facility] Comment on above: Order Comment: Y Performed By: #### L 100.0100, L3200.1100, L2100.0000, L101.9900, L504.2610, L501.6710, L3400.8000, L3410.2400, L5500.0550, L3100.3425, L3300.1800, L3300.1200 ####[facility] [address] [place], [phone]) GAMMA GLOBULIN 0.6 g/dL Normal 0.4-1.8 [facility] Comment on above: Order Comment: Y Performed By: #### L 100.0100, L3200.1100, L2100.0000, L101.9900, L504.2610, L501.6710, L3400.8000, L3410.2400, L5500.0550, L3100.3425, L3300.1800, L3300.1200 ####[facility] [address] [place], [address] Globulin (S) [Mass/Vol] 2.5 g/dL Normal 2.2-3.9 [facility] Comment on above: Order Comment: Y Performed By: #### L 100.0100, L3200.1100, L2100.0000, L101.9900, L504.2610, L501.6710, L3400.8000, L3410.2400, L5500.0550, L3100.3425, L3300.1800, L3300.1200 ####[facility] [address] [place], [place], [phone] MARIALUISA RESULT,S Comment Normal . [facility] Comment on above: Order Comment: Y Result Comment: No m onoclonality detected. Performed By: #### L 100.0100, L3200.1100, L2100.0000, L101.9900, L504.2610, L501.6710, L3400.8000, L3410.2400, L5500.0550, L3100.3425, L3300.1800, L3300.1200 ####[facility] [address] [place], [place], [phone] IMMUNOGLOB A QN 135 mg/dL Normal 87-352 [facility] Comment on above: Order Comment: Y Performed By: #### L 100.0100, L3200.1100, L2100.0000, L101.9900, L504.2610, L501.6710, L3400.8000, L3410.2400, L5500.0550, L3100.3425, L3300.1800, L3300.1200 ####[facility] [address] [place], [address] IMMUNOGLOB G QN 605 mg/dL Normal 586-1602 [facility] Comment on above: Order Comment: Y Performed By: #### L 100.0100, L3200.1100, L2100.0000, L101.9900, L504.2610, L501.6710, L3400.8000, L3410.2400, L5500.0550, L3100.3425, L3300.1800, L3300.1200 ####[facility] [address] [place], [address] IMMUNOGLOB M QN 115 mg/dL Normal 26-217 [facility] Comment on above: Order Comment: Y Performed By: #### L 100.0100, L3200.1100, L2100.0000, L101.9900, L504.2610, L501.6710, L3400.8000, L3410.2400, L5500.0550, L3100.3425, L3300.1800, L3300.1200 ####[facility] [address] [place], [place], [phone] M-Jc Not Observed Normal Not Observed [facility] Comment on above: Order Comment: Y Performed By: #### L 100.0100, L3200.1100, L2100.0000, L101.9900, L504.2610, L501.6710, L3400.8000, L3410.2400, L5500.0550, L3100.3425, L3300.1800, L3300.1200 ####[facility] [address] [place], [address] NOTE: Comment Normal . [facility] Comment on above: Order Comment: Y Result Comment: Prot ein electrophoresis scan will follow via computer,mail, or skill training program coordinator delivery. Performed By: #### L 100.0100, L3200.1100, L2100.0000, L101.9900, L504.2610, L501.6710, L3400.8000, L3410.2400, L5500.0550, L3100.3425, L3300.1800, L3300.1200 ####[facility] [address] [place], [place], [phone] Protein [Mass/Vol] 4.9 g/dL Low 6.0-8.5 [facility] Comment on above: Order Comment: Y Performed By: #### L 100.0100, L3200.1100, L2100.0000, L101.9900, L504.2610, L501.6710, L3400.8000, L3410.2400, L5500.0550, L3100.3425, L3300.1800, L3300.1200 ####[facility] [address] [place], [place], [phone] Immunoglobulins G/A/M/Kristopher IMMUNOGLOB E QN 170 IU/mL Normal 6-495 [facility] Comment on above: Order Comment: Y Performed By: #### L 100.0100, L3200.1100, L2100.0000, L101.9900, L504.2610, L501.6710, L3400.8000, L3410.2400, L5500.0550, L3100.3425, L3300.1800, L3300.1200 ####[facility] [address] [place], [place], [phone] L2100.0000on 12-18-2024 ACCA 20 units Normal 0-90 [facility] Comment on above: Result Comment: Nega tive: <80 Equivocal: 80-90 Positive: >90 Performed By: #### L 100.0100, L3200.1100, L2100.0000, L101.9900, L504.2610, L501.6710, L3400.8000, L3410.2400, L5500.0550, L3100.3425, L3300.1800, L3300.1200 ####[facility] [address] [place], [address] ALCA 1 units Normal 0-60 [facility] Comment on above: Result Comment: Nega tive:<55 Equivocal: 55-60 Positive: >60 Performed By: #### L 100.0100, L3200.1100, L2100.0000, L101.9900, L504.2610, L501.6710, L3400.8000, L3410.2400, L5500.0550, L3100.3425, L3300.1800, L3300.1200 ####[facility] [address] [place], [address] AMCA 9 units Normal 0-100 [facility] Comment on above: Result Comment: Nega tive: <90 Equivocal: 90-100 Positive: >100 This test was developed and its performance characteristics determined by [employer]. It has not been cleared or approved by the Food and Drug Administration. The FDA has determined that such clearance or approval is not necessary. Performed By: #### L 100.0100, L3200.1100, L2100.0000, L101.9900, L504.2610, L501.6710, L3400.8000, L3410.2400, L5500.0550, L3100.3425, L3300.1800, L3300.1200 ####[facility] [address] [place], [address] Atypical pANCA Negative Normal Negative [facility] Comment on above: Performed By: #### L 100.0100, L3200.1100, L2100.0000, L101.9900, L504.2610, L501.6710, L3400.8000, L3410.2400, L5500.0550, L3100.3425, L3300.1800, L3300.1200 ####[facility] [address] [place], [address] COMMENT Comment Normal . [facility] Comment on above: Result Comment: Ambika sacha is not suggestive of Inflammatory Bowel Disease Performed By: #### L 100.0100, L3200.1100, L2100.0000, L101.9900, L504.2610, L501.6710, L3400.8000, L3410.2400, L5500.0550, L3100.3425, L3300.1800, L3300.1200 ####[facility] [address] [place], [address] Ghazala 4 units Normal 0-50 [facility] Comment on above: Result Comment: Nega tive: <45 Equivocal: 45-50 Positive: >50 Performed By: #### L 100.0100, L3200.1100, L2100.0000, L101.9900, L504.2610, L501.6710, L3400.8000, L3410.2400, L5500.0550, L3100.3425, L3300.1800, L3300.1200 ####[facility] [address] [place], [address] Quantiferon TB-Gold+on 12-18 QFT MITOGEN VIRA > 10.00 Normal . [facility] Comment on above: Performed By: #### L 100.0100, L3200.1100, L2100.0000, L101.9900, L504.2610, L501.6710, L3400.8000, L3410.2400, L5500.0550, L3100.3425, L3300.1800, L3300.1200 ####[facility] [address] [place], [address] QFT NIL VALUE 0.28 IU/mL Normal . [facility] Comment on above: Performed By: #### L 100.0100, L3200.1100, L2100.0000, L101.9900, L504.2610, L501.6710, L3400.8000, L3410.2400, L5500.0550, L3100.3425, L3300.1800, L3300.1200 ####[facility] [address] [place], [address] QFT TB GOLD+ Comment Normal . [facility] Comment on above: Result Comment: Ernie tiFERON-TB Gold Plus is a qualitative indirect test forM tuberculosis infection (including disease) and isintended for use in conjunction with risk assessment,radiography, and other medical and diagnostic evaluations.The QuantiFERON-TB Gold Plus result is determined bysubtracting the Nil value from either TB antigen (Ag)value. The Mitogen tube serves as a control for the test. Performed By: #### L 100.0100, L3200.1100, L2100.0000, L101.9900, L504.2610, L501.6710, L3400.8000, L3410.2400, L5500.0550, L3100.3425, L3300.1800, L3300.1200 ####[facility] [address] [place], [address] QFT TB POS CRIT Negative Normal Negative [facility] Comment on above: Result Comment: No r esponse to M tuberculosis antigens detected.Infection with M tuberculosis is unlikely, but high riskindividuals should be considered for additional testing(ATS/IDSA/CDC Clinical Practice Guidelines, 2017). Thereference range is an Antigen minus Nil result of <0.35IU/mL.The specimen received for QuantiFERON testing was incubatedby the ordering institution. Specific procedures outlinedin our Directory of Services and in the package insert forthe QuantiFERON Gold (In Tube) test must be followed toenable for proper stimulation of cells for the productionof interferon gamma. Chemiluminescence immunoassaymethodology Performed By: #### L 100.0100, L3200.1100, L2100.0000, L101.9900, L504.2610, L501.6710, L3400.8000, L3410.2400, L5500.0550, L3100.3425, L3300.1800, L3300.1200 ####[facility] [address] [place], [address] QFT TB1+ AG VIRA 0.26 IU/mL Normal . [facility] Comment on above: Performed By: #### L 100.0100, L3200.1100, L2100.0000, L101.9900, L504.2610, L501.6710, L3400.8000, L3410.2400, L5500.0550, L3100.3425, L3300.1800, L3300.1200 ####[facility] [address] [place], [place], [phone] QFT TB2+ AG VIRA 0.26 IU/mL Normal . [facility] Comment on above: Performed By: #### L 100.0100, L3200.1100, L2100.0000, L101.9900, L504.2610, L501.6710, L3400.8000, L3410.2400, L5500.0550, L3100.3425, L3300.1800, L3300.1200 ####[facility] [address] [place], [address] Allergen, Food Profile 14on 12-17-2024 BEEF <0.10 Normal Class 0 [facility] Comment on above: Performed By: #### L 100.0100, L3200.1100, L2100.0000, L101.9900, L504.2610, L501.6710, L3400.8000, L3410.2400, L5500.0550, L3100.3425, L3300.1800, L3300.1200 ####[facility] [address] [place], [place], [id number] CHOCOLATE <0.10 Normal Class 0 [facility] Comment on above: Performed By: #### L 100.0100, L3200.1100, L2100.0000, L101.9900, L504.2610, L501.6710, L3400.8000, L3410.2400, L5500.0550, L3100.3425, L3300.1800, L3300.1200 ####[facility] [address] [place], [address] CODFISH <0.10 Normal Class 0 [facility] Comment on above: Performed By: #### L 100.0100, L3200.1100, L2100.0000, L101.9900, L504.2610, L501.6710, L3400.8000, L3410.2400, L5500.0550, L3100.3425, L3300.1800, L3300.1200 ####[facility] [address] [place], [address] COMMENT Comment Normal . [facility] Comment on above: Result Comment: Maxi simmons of Specific IgE Class Description of Class ----- < 0.10 0 Negative 0.10 - 0.31 0/I Equivocal/Low 0.32 - 0.55 I Low 0.56 - 1.40 II Moderate 1.41 - 3.90 III High 3.91 - 19.00 IV Very High 19.01 - 100.00 V Very High >100.00 Very High Performed By: #### L 100.0100, L3200.1100, L2100.0000, L101.9900, L504.2610, L501.6710, L3400.8000, L3410.2400, L5500.0550, L3100.3425, L3300.1800, L3300.1200 ####[facility] [address] [place], [address] CORN <0.10 Normal Class 0 [facility] Comment on above: Performed By: #### L 100.0100, L3200.1100, L2100.0000, L101.9900, L504.2610, L501.6710, L3400.8000, L3410.2400, L5500.0550, L3100.3425, L3300.1800, L3300.1200 ####[facility] [address] [place], [address] EGG, WHOLE <0.10 Normal Class 0 [facility] Comment on above: Result Comment: Perf ormed at: [facility] [id number] Director: Jessica Gomez MD, Phone: [phone] Performed By: #### L 100.0100, L3200.1100, L2100.0000, L101.9900, L504.2610, L501.6710, L3400.8000, L3410.2400, L5500.0550, L3100.3425, L3300.1800, L3300.1200 ####[facility] [address] [place], [place], [phone]([phone]) MILK (COW) <0.10 Normal Class 0 [facility] Comment on above: Performed By: #### L 100.0100, L3200.1100, L2100.0000, L101.9900, L504.2610, L501.6710, L3400.8000, L3410.2400, L5500.0550, L3100.3425, L3300.1800, L3300.1200 ####[facility] [address] [place], [place], [phone](953) MUSSELS <0.10 Normal Class 0 [facility] Comment on above: Performed By: #### L 100.0100, L3200.1100, L2100.0000, L101.9900, L504.2610, L501.6710, L3400.8000, L3410.2400, L5500.0550, L3100.3425, L3300.1800, L3300.1200 ####[facility] [address] [place], [place], [phone](784) PEANUT <0.10 Normal Class 0 [facility] Comment on above: Performed By: #### L 100.0100, L3200.1100, L2100.0000, L101.9900, L504.2610, L501.6710, L3400.8000, L3410.2400, L5500.0550, L3100.3425, L3300.1800, L3300.1200 ####[facility] [address] [place], [place], [phone](662) PORK <0.10 Normal Class 0 [facility] Comment on above: Performed By: #### L 100.0100, L3200.1100, L2100.0000, L101.9900, L504.2610, L501.6710, L3400.8000, L3410.2400, L5500.0550, L3100.3425, L3300.1800, L3300.1200 ####[facility] [address] [place], [place], [phone] SALMON <0.10 Normal Class 0 [facility] Comment on above: Performed By: #### L 100.0100, L3200.1100, L2100.0000, L101.9900, L504.2610, L501.6710, L3400.8000, L3410.2400, L5500.0550, L3100.3425, L3300.1800, L3300.1200 ####[facility] [address] [place], [place], [phone] SHRIMP <0.10 Normal Class 0 [facility] Comment on above: Performed By: #### L 100.0100, L3200.1100, L2100.0000, L101.9900, L504.2610, L501.6710, L3400.8000, L3410.2400, L5500.0550, L3100.3425, L3300.1800, L3300.1200 ####[facility] [address] [place], [place], [phone] SOYBEAN <0.10 Normal Class 0 [facility] Comment on above: Performed By: #### L 100.0100, L3200.1100, L2100.0000, L101.9900, L504.2610, L501.6710, L3400.8000, L3410.2400, L5500.0550, L3100.3425, L3300.1800, L3300.1200 ####[facility] [address] [place], [place], [phone] TUNA <0.10 Normal Class 0 [facility] Comment on above: Performed By: #### L 100.0100, L3200.1100, L2100.0000, L101.9900, L504.2610, L501.6710, L3400.8000, L3410.2400, L5500.0550, L3100.3425, L3300.1800, L3300.1200 ####[facility] [address] [place], [place], [id number] WHEAT <0.10 Normal Class 0 [facility] Comment on above: Performed By: #### L 100.0100, L3200.1100, L2100.0000, L101.9900, L504.2610, L501.6710, L3400.8000, L3410.2400, L5500.0550, L3100.3425, L3300.1800, L3300.1200 ####[facility] [address] [place], [place], [id number] CBC W/Diff, Automatedon 11-0 4-2024 Absolute Lymph 1.35 X10 3/uL Normal 0.83-4.51 [facility] Comment on above: Performed By: #### L 100.0100, L3200.1100, L2100.0000, L101.9900, L504.2610, L501.6710, L3400.8000, L3410.2400, L5500.0550, L3100.3425, L3300.1800, L3300.1200 ####[facility] [address] [place], [place], [id number] Absolute Neut 4.9 X10 3/uL Normal 2.0-7.7 [facility] Comment on above: Performed By: #### L 100.0100, L3200.1100, L2100.0000, L101.9900, L504.2610, L501.6710, L3400.8000, L3410.2400, L5500.0550, L3100.3425, L3300.1800, L3300.1200 ####[facility] [address] [place], [place], [id number] Basophils/100 WBC (Bld) 0.4 % Normal 0-1 [facility] Comment on above: Performed By: #### L 100.0100, L3200.1100, L2100.0000, L101.9900, L504.2610, L501.6710, L3400.8000, L3410.2400, L5500.0550, L3100.3425, L3300.1800, L3300.1200 ####[facility] [address] [place], [place], [id number]) Eosinophils/100 WBC (Bld) 1.0 % Normal 0-5 [facility] Comment on above: Performed By: #### L 100.0100, L3200.1100, L2100.0000, L101.9900, L504.2610, L501.6710, L3400.8000, L3410.2400, L5500.0550, L3100.3425, L3300.1800, L3300.1200 ####[facility] [address] [place], [place], [phone] Erythrocyte distribution width (RBC) [Ratio] 15.4 % High 11.6-14.6 [facility] Comment on above: Performed By: #### L 100.0100, L3200.1100, L2100.0000, L101.9900, L504.2610, L501.6710, L3400.8000, L3410.2400, L5500.0550, L3100.3425, L3300.1800, L3300.1200 ####[facility] [address] [place], [place], [phone](053) Hematocrit (Bld) [Volume fraction] 31.7 % Low 37-47 [facility] Comment on above: Performed By: #### L 100.0100, L3200.1100, L2100.0000, L101.9900, L504.2610, L501.6710, L3400.8000, L3410.2400, L5500.0550, L3100.3425, L3300.1800, L3300.1200 ####[facility] [address] [place], [place], [phone](304) Hemoglobin (Bld) [Mass/Vol] 10.9 g/dL Low 12.0-15.0 [facility] Comment on above: Performed By: #### L 100.0100, L3200.1100, L2100.0000, L101.9900, L504.2610, L501.6710, L3400.8000, L3410.2400, L5500.0550, L3100.3425, L3300.1800, L3300.1200 ####[facility] [address] [place], [address] IG% 0.700 Normal 0.0-0.9 [facility] Comment on above: Result Comment: IG% - Immature Granulocytes (promyelocytes, myelocytes andmetamyelocytes) > 1% indicates that a LEFT SHIFT is Present. Performed By: #### L 100.0100, L3200.1100, L2100.0000, L101.9900, L504.2610, L501.6710, L3400.8000, L3410.2400, L5500.0550, L3100.3425, L3300.1800, L3300.1200 ####[facility] [address] [place], [address] Lymphocytes/100 WBC (Bld) 19.9 % Normal 19-41 [facility] Comment on above: Performed By: #### L 100.0100, L3200.1100, L2100.0000, L101.9900, L504.2610, L501.6710, L3400.8000, L3410.2400, L5500.0550, L3100.3425, L3300.1800, L3300.1200 ####[facility] [address] [place], [address] MCH (RBC) [Entitic mass] 31.2 pg Normal 27.0-32.0 [facility] Comment on above: Performed By: #### L 100.0100, L3200.1100, L2100.0000, L101.9900, L504.2610, L501.6710, L3400.8000, L3410.2400, L5500.0550, L3100.3425, L3300.1800, L3300.1200 ####[facility] [address] [place], [address] MCHC (RBC) [Mass/Vol] 34.4 g/dL Normal 32-36 [facility] Comment on above: Performed By: #### L 100.0100, L3200.1100, L2100.0000, L101.9900, L504.2610, L501.6710, L3400.8000, L3410.2400, L5500.0550, L3100.3425, L3300.1800, L3300.1200 ####[facility] [address] [place], [address] MCV (RBC) [Entitic vol] 90.8 fL Normal 81-99 [facility] Comment on above: Performed By: #### L 100.0100, L3200.1100, L2100.0000, L101.9900, L504.2610, L501.6710, L3400.8000, L3410.2400, L5500.0550, L3100.3425, L3300.1800, L3300.1200 ####[facility] [address] [facility] [address] [place], [address] Monocytes/100 WBC (Bld) 4.9 % Normal 0-10 [facility] Comment on above: Performed By: #### L 100.0100, L3200.1100, L2100.0000, L101.9900, L504.2610, L501.6710, L3400.8000, L3410.2400, L5500.0550, L3100.3425, L3300.1800, L3300.1200 ####[facility] [address] [facility] [address] [place], [address] Neutrophils/100 WBC (Bld) 73.1 % High 47-70 [facility] Comment on above: Performed By: #### L 100.0100, L3200.1100, L2100.0000, L101.9900, L504.2610, L501.6710, L3400.8000, L3410.2400, L5500.0550, L3100.3425, L3300.1800, L3300.1200 ####[facility] [address], [address] Nucleated RBC (Bld) [#/Vol] 0 10*3/uL Normal 0-5 [facility] Comment on above: Performed By: #### L 100.0100, L3200.1100, L2100.0000, L101.9900, L504.2610, L501.6710, L3400.8000, L3410.2400, L5500.0550, L3100.3425, L3300.1800, L3300.1200 ####[facility] [address] [place], [address] Platelet mean volume (Bld) [Entitic vol] 8.5 fL Normal 6.2-12.0 [facility] Comment on above: Performed By: #### L 100.0100, L3200.1100, L2100.0000, L101.9900, L504.2610, L501.6710, L3400.8000, L3410.2400, L5500.0550, L3100.3425, L3300.1800, L3300.1200 ####[facility] [address] [place], [address] Platelets (Bld) [#/Vol] 372 10*3/uL Normal 150-450 [facility] Comment on above: Performed By: #### L 100.0100, L3200.1100, L2100.0000, L101.9900, L504.2610, L501.6710, L3400.8000, L3410.2400, L5500.0550, L3100.3425, L3300.1800, L3300.1200 ####[facility] [address] [place], [address] RBC (Bld) [#/Vol] 3.49 10*6/uL Low 4.2-5.4 [facility] Comment on above: Performed By: #### L 100.0100, L3200.1100, L2100.0000, L101.9900, L504.2610, L501.6710, L3400.8000, L3410.2400, L5500.0550, L3100.3425, L3300.1800, L3300.1200 ####[facility] [address] [place], [place], [phone] RDW SD 48.3 fl High 35.1-43.9 [facility] Comment on above: Performed By: #### L 100.0100, L3200.1100, L2100.0000, L101.9900, L504.2610, L501.6710, L3400.8000, L3410.2400, L5500.0550, L3100.3425, L3300.1800, L3300.1200 ####[facility] [address] [place], [place], [phone] WBC (Bld) [#/Vol] 6.8 10*3/uL Normal 4.4-11.0 [facility] Comment on above: Performed By: #### L 100.0100, L3200.1100, L2100.0000, L101.9900, L504.2610, L501.6710, L3400.8000, L3410.2400, L5500.0550, L3100.3425, L3300.1800, L3300.1200 ####[facility] [address] [place], [place], [phone] CRPon 12-14-2024 C-REACTIVE PROT 76.40 mg/L High 0.0-3.0 [facility] Comment on above: Performed By: #### L 100.0100, L3200.1100, L2100.0000, L101.9900, L504.2610, L501.6710, L3400.8000, L3410.2400, L5500.0550, L3100.3425, L3300.1800, L3300.1200 ####[facility] [address] [place], [address] Erythrocyte Sed Rateon 12-14 SED RATE 16 mm/hr Normal 0-30 [facility] Comment on above: Performed By: #### L 100.0100, L3200.1100, L2100.0000, L101.9900, L504.2610, L501.6710, L3400.8000, L3410.2400, L5500.0550, L3100.3425, L3300.1800, L3300.1200 ####[facility] [address] [place], [place], [address] Gastroenterology Visit Repor ton 12-14-2024 Gastroenterology Visit Report Normal [facility] LDHon 12-14-2024 LDH 236 U/L Normal 84-246 [facility] Comment on above: Order Comment: 1 Performed By: #### L 100.0100, L3200.1100, L2100.0000, L101.9900, L504.2610, L501.6710, L3400.8000, L3410.2400, L5500.0550, L3100.3425, L3300.1800, L3300.1200 ####[facility] [address] [place], [place], [address] CNOVon 11-30-2024 CNOV Office Visit (CARLITOSWS ) DAVID ALDRICH ([id number]) 1960 F NFR Date Time Provider Department 11/30/24 11:00 AM LULU SWANSON During your visit today, we recorded the following information about you: Pulse Respiration Blood pressure Weight 92/minute 16/minute 126/74 68.9 kg Lulu Swanson APRN.[employer] 11/30/2024 11:44 AM Addendum Call me when you get home to let me know if you have the prescriptions in with your discharge paperwork. Scheduled w/ general surgery for eval for colonscopy. I'll send today's note over to pulmonology to see if they would like to see you sooner than your next scheduled appointment. Lulu Swanson APRN.[employer] 11/30/2024 1:47 PM Signed This is a 64 year old female who presents today with: The patient is a 64-year-old female with HTN and T2DM, presenting for evaluation of persistent watery diarrhea following recent hospitalization and antibiotic therapy. Summary per hospital records: Patient presents today for hospital follow-up. She was admitted to [facility] on 11/19/2024 and discharged on 11/22/2024. Per the emergency room records, patient arrived by ambulance for chest pain. Patient was cyanotic and diaphoretic upon presentation. Her blood pressure was 72/56. Her pulse ox was 65% on room air. She was noted to be mottled. Her white count was elevated to 13.9. Her anion gap was elevated. Her lactate was elevated at 3.0. Her blood sugar was 316. She had a subclavian in place. She was started on Levophed because she remained hypotensive after 3 L of normal saline. CT of the chest reveals emphysema but otherwise unremarkable. CT of the abdomen and pelvis revealed transverse and descending colitis. CT also demonstrated abrupt narrowing of the proximal sigmoid colon with a short segment of wall thickening. This could represent focal colitis or a mucosal mass lesion. There was an addended surgical note that the official CT did not show evidence of bowel obstruction. Further there was no narrowing of the colon, however, there is evidence of colonic wall thickening-particularly distally. This is suggestive of colitis and in light of patient's recent hypotension could represent an element of ischemic colitis. There were no signs of bowel obstruction and patient had reported both bowel function as well as appetite, so clear liquid diet was resumed as tolerated. She received empiric IV antibiotics. Course was also complicated by a chest wall hematoma following attempts at a central line. She did have a CTA of the chest that demonstrated right chest wall hematoma without subclavian artery involvement/active arterial bleeding. There was soft tissue thickening in the bilateral hilar regions that may represent hilar lymphadenopathy or peribronchial infiltrates. There is also mediastinal lymphadenopathy noted. Patient was discharged with scripts for prednisone 40 mg daily for 7 days, Pantoprazole 40 mg daily, Augmentin twice daily for 10 day, and Mucinex. HISTORY OF PRESENT ILLNESS: David is a 64-year-old female with a history of diabetes mellitus, presenting for follow-up after a recent hospitalization for respiratory distress, with ongoing diarrhea. Recent Hospitalization: - Hospitalized for respiratory distress; required BiPAP and central line placement. - Discharged on 11/22. - Reports hearing comments about appearing "kahn" and "cold" during the episode. - Denies current dyspnea; occasional chills. - Appetite decreased; reports dysgeusia. - Follow-up with Pulmonology scheduled for January 21. Colitis/Diarrhea: - Onset during hospitalization; currently experiencing 2-3 watery bowel movements per day. - Denies hematochezia. - Completed a course of antibiotics during hospitalization; unsure if Augmentin was prescribed at discharge. - Denies abdominal pain. COPD: Follows with pulmonology. PAST MEDICAL HISTORY: PAST MEDICAL HISTORY Diagnosis Date Arrhythmia Bradycardia COPD, mild (HCC) Diabetes mellitus with peripheral artery disease (HCC) 03/06/2015 H/O percutaneous left heart catheterization 05/2012 negative--[facility] History of rectal polypectomy 09/23/201712/2014: hyperplastic polyp Hyperlipidemia LDL goal < 100 01/25/2013 Hypertension Left sided sciatica Major depressive disorder, recurrent episode, unspecified Non-alcoholic fatty liver disease 10/13/2014 Other and unspecified hyperlipidemia Other secondary osteoarthritis of right knee Peripheral arterial disease 03/06/2015 Pulmonary emphysema, unspecified emphysema type Recurrent major depressive disorder, in full remission 03/10/2017 Snoring Tobacco use current Trigger point of left shoulder region Type 2 diabetes mellitus with stage 3 chronic kidney disease, without long-term current use of insulin (HCC) 05/11/2016 PAST SURGICAL HISTORY Procedure Lateral (more content not included)... Normal [facility] Corrina 11-30-2024 CANDACEN Telephone (FAMPWS) VALDEMARDAVID Kincaid ([id number]) 1960 F NFR Date Time Provider Department 11/30/24 LULU SWANSON During your visit today, we recorded the following information about you: Helen Lema RN 11/30/2024 2:19 PM Signed Patient phoned to let Iván Swanson know she does have all the 's hospital gave her. Pt states provider will know what she is talking about. Lulu Swanson APRN.[employer] 11/30/2024 4:39 PM Signed Noted. Thank you! Lulu Swanson APRN.[employer] Allergies As of Date: 11/30/2024 Noted Allergy Reaction ZOCOR (SIMVASTATIN) 04/24/2013 17 - Myalgia Date Reviewed: 11/30/2024 Reviewed by: Lavon Terry LPN - Fully Assessed Reason for Visit: Patient Update [1234] Prescriptions as of 11/30/2024 - lisinopril (ZESTRIL) 5 mg tablet Take 1 tablet by mouth once daily. - metFORMIN (GLUCOPHAGE) 500 mg tablet Take 1 tablet by mouth daily with dinner. - zolpidem (AMBIEN) 10 mg Take 1 tablet by mouth daily at bedtime for 30 days. - blood sugar diagnostic (BLOOD GLUCOSE TEST) test strip Test blood sugar(s) 1 times daily. Dx: Type 2 DM - Controlled E11.9 Insulin: No - cyclobenzaprine (FLEXERIL) 5 mg tablet Take 1 tablet by mouth three times a day as needed. - atorvastatin (LIPITOR) 20 mg tablet Take 1 tablet by mouth once daily. - etodolac (LODINE) 400 mg tablet Take 1 tablet by mouth two times a day. - imipramine HCl (TOFRANIL) 50 mg tablet Take 3 tablets by mouth daily at bedtime. - pantoprazole DR (PROTONIX) 40 mg tablet Take 1 tablet by mouth once daily. - nicotine (NICODERM CQ) 21 mg/24 hr Apply 1 patch as directed every 24 hours. APPLY ONE(1) PATCH DAILY. - nicotine (NICODERM) 14 mg/24 hr Apply 1 patch as directed every 24 hours. - nicotine (NICODERM) 7 mg/24 hr Apply 1 patch as directed every 24 hours. - buPROPion SR (WELLBUTRIN SR) 150 mg 12 hr tablet Take 1 tablet by mouth two times a day. Take 1 tablet a day for 3 days before increasing to 1 tablet twice a day. - thiothixene (NAVANE) 1 mg capsule Take 2 capsules by mouth two times a day. - tiotropium bromide (SPIRIVA RESPIMAT) 2.5 mcg/actuation inhaler Inhale 2 Puffs as instructed once daily. - fluticasone-salmeterol (ADVAIR DISKUS) 250-50 mcg/dose inhaler Inhale 1 Puff as instructed two times a day. RINSE AND GARGLE MOUTH WITH WATER AFTER EACH USE. - albuterol HFA (VENTOLIN HFA) 90 mcg/actuation inhaler Inhale 2 Puffs as instructed every 4 hours as needed for wheezing/shortness of breath. - ondansetron orally disintegrating (ZOFRAN ODT) 4 mg disintegrating tablet Take 1 tablet by mouth every 8 hours as needed for nausea/vomiting. - Lancets lancets Test blood sugar(s) 1 times daily. Dx: Type 2 DM - Controlled E11.9 Insulin: No - Melatonin 5 mg cap Take 1 capsule by mouth once daily. - Aspirin 81 mg tab Take 1 tablet by mouth once daily. Take with food. Problem List As Of Date 11/30/2024 Noted Resolved Severe major depression with psychotic features*03/11/2005 03/10/2017 Other and unspecified hyperlipidemia [E78.5] 06/30/2006 01/25/2013 Tobacco abuse [Z72.0] 12/20/2010 Hyperlipidemia with target LDL less than 100 [E*01/25/2013 Non-alcoholic fatty liver disease [K76.0] 10/13/2014 Peripheral arterial disease (HCC) [I73.9] 03/06/2015 Diabetes mellitus with peripheral artery diseas*03/06/2015 Hyponatremia [E87.1] 03/17/2015 Controlled type 2 diabetes mellitus without com*05/11/2016 Chronic insomnia [F51.04] 02/11/2017 Recurrent major depressive disorder, in full re*03/10/2017 History of rectal polypectomy [Z98.890, Z87.19] 09/23/2017 Change in bowel habit [R19.4] 09/24/2017 Abdominal pain [R10.9] 09/24/2017 03/09/2018 Mucopurulent chronic bronchitis (HCC) [J41.1] 05/05/2018 Shoulder impingement syndrome, right [M75.41] 10/20/2018 Situational anxiety [F41.8] 10/20/2018 Left sided sciatica [M54.32] 12/24/2018 Cheek mass [R22.0] 12/24/2018 Premature atrial contraction [I49.1] 03/30/2019 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] 04/05/2019 Chronic right shoulder pain [M25.511, G89.29] 06/26/2021 Nontraumatic complete tear of right rotator cuf*06/26/2021 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*10/19/2022 Primary hypertension [I10] 10/19/2022 Familial hypercholesterolemia [E78.019] 10/19/2022 Septic arthritis (HCC) [M00.9] 10/21/2022 Nicotine use disorder, F17.2 [F17.200] 10/22/2022 Coronary artery disease involving [place] aparicio*05/15/2024 Encounter Status:Closed by LULU SWANSON on 11/30/24 Normal [facility] Culture, Blood (WB)on 2024 CUB Blood cultures x2, f rom two different sites No growth in 5 days. Normal [facility] Comment on above: Performed By: #### M 200.1000 ####[facility] [address] [place], [place], [address] JAK2 Mutation Analysison JAK2 COMMENT Comment Normal . [facility] Comment on above: Result Comment: Tech nical Component performed at [email or web address] RTPProfessional Component performed by:Maddi John, PhD, FACMGDirector, Molecular OncologyHillsboro Community Medical Centerco [email or web address], [address] [facility] [phone] test was developed and its performance characteristicsdetermined by [employer]. It has not been cleared orapproved by the Food and Drug Administration.Performed at: [facility] [id number] [employer] [facility], [place], [place] [id number] Director: Lary Spears [facility], Phone: [phone] at: TG - [facility] [id number] [place], [place] [id number] Director: Lary Spears [facility], Phone: [phone] Performed By: #### L 501.77165, L501.9927, L3440.5000, L506.0400 ####[facility] [address] [place], [place], [id number] JAK2 COMMENT 2 Comment Normal . [facility] Comment on above: Result Comment: JAK2 is a cytoplasmic tyrosine kinase with a arevalo role insignal transduction from multiple hematopoietic growthfactor receptors. A point mutation within exon 14 of theJAK2 gene ([id number]) encoding a valine to phenylalaninesubstitution at position 617 of the JAK2 protein (V617F)has been identified in most patients with polycythemiavera, and in about half of those with either essentialthrombocythemia or idiopathic myelofibrosis. The V617F hasalso been detected, although infrequently, in other myeloiddisorders such as chronic myelomonocytic leukemia andchronic neutrophilic luekemia. V617F is an acquiredmutation that alters a highly conserved valine present inthe negative regulatory JH2 domain of the JAK2 proteinand is predicted to dysregulate kinase activity.Methodology:Total genomic DNA was extracted and subjected to TaqManreal-time PCR amplification/detection. Two amplificationproducts per sample were monitored by real-time PCR usingprimers/probes specific to JAK2 wild type (WT) and ZBQ3qxvawk V617F. The [employer] Absolute Quantitation softwarewill compare the patient specimen valuse to the standardcurves and generate percent values for wild type andmutant type. In vitro studies have indicated that thisassay has an analytical sensitivity of 1%.References:Trever EJ, Jacob LM, Alfonso PJ, et al. Acquiredmutation of the tyrosine kinase JAK2 in humanmyeloproliferative disorders. Lancet. 2005 Apr 28-;365(8287):3471-5329. Ru Pfeiffer V, Bacilio Fischer JP. Aunique clonal JAK2 mutation leading to constitutivesignaling causes polycythaemia vera. Nature. 2005 May 28;434(0242):7158-8841.Rashaun Quinn, Fuad F, Luz , et al. A mitn-ag-hutljoek mutation of JAK2 in myeloproliferative disorders.N Engl J Med. 2004 28; 352(17):1972-5935. Performed By: #### L 501.98349, L501.9985, L3440.5000, L506.0400 ####[facility] [address] [place], [place], [address] JAK2 MUT QUAL Comment Normal . [facility] Comment on above: Result Comment: Resu lt: NEGATIVE for the JAK2 V617F mutation.Interpretation: The G to T nucleotide change encoding [id number] mutation was not detected. This result does not ruleout the presence of the JAK2 mutation at a level below thesensitivity of detection of this assay, or the presence ofother mutations within JAK2 not detected by this assay.This result does not rule out a diagnosis of polycythemiavera, essential thrombocythemia or idiopathicmyelofibrosis as the V617F mutation is not detected inall patients with these disorders. Performed By: #### L 501.70375, L501.9985, L3440.5000, L506.0400 ####[facility] [address] [place], [place], [address] Absolute lymphocyte countOrd ered By: Kenny Pompa on 11-23-2024 Lymphocytes Auto (Unsp spec) [#/Vol] 0.97 10*3/uL 0.83-4.51 [facility] Absolute neutrophil countOrd ered By: Kenny Pompa on 11-23-2024 Neutrophils (Bld) [#/Vol] 9.8 10*3/uL High 2.0-7.7 [facility] Anion gap in Serum or Plasma Ordered By: Kenny Pompa on 11-23-2024 Anion gap [Moles/Vol] 11 mmol/L 5-15 [facility] Automated lymphocyte count a s percentage of total leukocytesOrdered By: Kenny Pompa on 11-23-2024 Lymphocytes/100 WBC Auto (Unsp spec) 7.8 % Low 19-41 [facility] BUN/creatinine ratioOrdered By: Kenny Pompa on 11-23-2024 Urea nitrogen/Creatinine [Mass ratio] 29.6 mg/mg High - [facility] Basic Metabolic Profile (BMP )on 11-23-2024 BUN/CRE 29.6 RATIO High 11-29 [facility] Comment on above: Performed By: #### L 501.5200, L500.2500, L100.0100 ####[facility] [address] [place], [address] Calcium [Mass/Vol] 8.2 mg/dL Normal 7.6-11.0 [facility] Comment on above: Performed By: #### L 501.5200, L500.2500, L100.0100 ####[facility] [address] [place], [address] Chloride [Moles/Vol] 102 mmol/L Normal 98-108 [facility] Comment on above: Performed By: #### L 501.5200, L500.2500, L100.0100 ####[facility] [address] [place], [address] CO2 [Moles/Vol] 20.0 mmol/L Low 21.0-32.0 [facility] Comment on above: Performed By: #### L 501.5200, L500.2500, L100.0100 ####[facility] [address] [place], [address] Creatinine [Mass/Vol] 0.60 mg/dL Low 0.70-1.20 [facility] Comment on above: Performed By: #### L 501.5200, L500.2500, L100.0100 ####[facility] [address] [place], [address] ECRCL 89.33 ml/min Normal 50-250 [facility] Comment on above: Performed By: #### L 501.5200, L500.2500, L100.0100 ####[facility] [address] [place], [address] GAP 11 Normal 5-15 [facility] Comment on above: Performed By: #### L 501.5200, L500.2500, L100.0100 ####[facility] [address] [place], [address] GFR/1.73 sq M.predicted among non-blacks MDRD (S/P/Bld) [Vol rate/Area] 101 mL/min/{1.73_m2} Normal >60 [facility] Comment on above: Result Comment: mL/m in/1.73m2 CKD-EPI Creatinine Equation (2020) Performed By: #### L 501.5200, L500.2500, L100.0100 ####[facility] [address] [place], [address] Glucose [Mass/Vol] 175 mg/dL High 70-99 [facility] Comment on above: Performed By: #### L 501.5200, L500.2500, L100.0100 ####[facility] [address] [place], [address] Potassium [Moles/Vol] 3.5 mmol/L Normal 3.3-5.1 [facility] Comment on above: Performed By: #### L 501.5200, L500.2500, L100.0100 ####[facility] [address], [address] Sodium [Moles/Vol] 134 mmol/L Normal 133-145 [facility] Comment on above: Performed By: #### L 501.5200, L500.2500, L100.0100 ####[facility] [address] [place], [address] Urea nitrogen [Mass/Vol] 18 mg/dL Normal 4-19 [facility] Comment on above: Performed By: #### L 501.5200, L500.2500, L100.0100 ####[facility] [address] [place], [address] Basophil percentageOrdered B y: Kenny Pompa on 11-23-2024 Basophils/100 WBC (Bld) 0.6 % 0-1 [facility] Bedside Glucoseon 11-23-2024 FINGERSTICK GLU 169 mg/dL High 74-106 [facility] Comment on above: Result Comment: NEHAL GEMENT OF PATIENT CARE PER NURSING PROTOCOL Performed By: #### L 501.080 ####[facility] [address] [place], [address] FINGERSTICK GLU 160 mg/dL High 74-106 [facility] Comment on above: Result Comment: NEHAL GEMENT OF PATIENT CARE PER NURSING PROTOCOL Performed By: #### L 501.080 ####[facility] [address] [place], [address] FINGERSTICK GLU 159 mg/dL High 74-106 [facility] Comment on above: Result Comment: NEHAL GEMENT OF PATIENT CARE PER NURSING PROTOCOL Performed By: #### L 501.080 ####[facility] [address] [place], [address] FINGERSTICK GLU 151 mg/dL High 74-106 [facility] Comment on above: Result Comment: NEHAL GEMENT OF PATIENT CARE PER NURSING PROTOCOL Performed By: #### L 501.080 ####[facility] [address] [place], [address] CBC W/Diff, Automatedon 11-10 Absolute Lymph 0.97 X10 3/uL Normal 0.83-4.51 [facility] Comment on above: Performed By: #### L 501.5200, L500.2500, L100.0100 ####[facility] [address] [place], [address] Absolute Neut 9.8 X10 3/uL High 2.0-7.7 [facility] Comment on above: Performed By: #### L 501.5200, L500.2500, L100.0100 ####[facility] [address] [place], [address] Basophils/100 WBC (Bld) 0.6 % Normal 0-1 [facility] Comment on above: Performed By: #### L 501.5200, L500.2500, L100.0100 ####[facility] [address] [place], [address] Eosinophils/100 WBC (Bld) 0.1 % Normal 0-5 [facility] Comment on above: Performed By: #### L 501.5200, L500.2500, L100.0100 ####[facility] [address] [place], [address] Erythrocyte distribution width (RBC) [Ratio] 13.5 % Normal 11.6-14.6 [facility] Comment on above: Performed By: #### L 501.5200, L500.2500, L100.0100 ####[facility] [address] [place], [address] Hematocrit (Bld) [Volume fraction] 29.7 % Low 37-47 [facility] Comment on above: Performed By: #### L 501.5200, L500.2500, L100.0100 ####[facility] [address] [place], [address] Hemoglobin (Bld) [Mass/Vol] 10.3 g/dL Low 12.0-15.0 [facility] Comment on above: Performed By: #### L 501.5200, L500.2500, L100.0100 ####[facility] [address] [place], [address] IG% 3.500 High 0.0-0.9 [facility] Comment on above: Result Comment: IG% - Immature Granulocytes (promyelocytes, myelocytes andmetamyelocytes) > 1% indicates that a LEFT SHIFT is Present. Performed By: #### L 501.5200, L500.2500, L100.0100 ####[facility] [address] [place], [address] Lymphocytes/100 WBC (Bld) 7.8 % Low 19-41 [facility] Comment on above: Performed By: #### L 501.5200, L500.2500, L100.0100 ####[facility] [address] [place], [address] MCH (RBC) [Entitic mass] 30.9 pg Normal 27.0-32.0 [facility] Comment on above: Performed By: #### L 501.5200, L500.2500, L100.0100 ####[facility] [address] [place], [address] MCHC (RBC) [Mass/Vol] 34.7 g/dL Normal 32-36 [facility] Comment on above: Performed By: #### L 501.5200, L500.2500, L100.0100 ####[facility] [address] [place], [address] MCV (RBC) [Entitic vol] 89.2 fL Normal 81-99 [facility] Comment on above: Performed By: #### L 501.5200, L500.2500, L100.0100 ####[facility] [address] [place], [address] Monocytes/100 WBC (Bld) 9.0 % Normal 0-10 [facility] Comment on above: Performed By: #### L 501.5200, L500.2500, L100.0100 ####[facility] [address] [place], [address] Neutrophils/100 WBC (Bld) 79.0 % High 47-70 [facility] Comment on above: Performed By: #### L 501.5200, L500.2500, L100.0100 ####[facility] [address] [place], [address] Nucleated RBC (Bld) [#/Vol] 0.2 10*3/uL Normal 0-5 [facility] Comment on above: Performed By: #### L 501.5200, L500.2500, L100.0100 ####[facility] [address] [place], [address] Platelet mean volume (Bld) [Entitic vol] 9.7 fL Normal 6.2-12.0 [facility] Comment on above: Performed By: #### L 501.5200, L500.2500, L100.0100 ####[facility] [address] [place], [address] Platelets (Bld) [#/Vol] 240 10*3/uL Normal 150-450 [facility] Comment on above: Performed By: #### L 501.5200, L500.2500, L100.0100 ####[facility] [address] [place], [address] RBC (Bld) [#/Vol] 3.33 10*6/uL Low 4.2-5.4 [facility] Comment on above: Performed By: #### L 501.5200, L500.2500, L100.0100 ####[facility] [address] [place], [address] RDW SD 44.1 fl High 35.1-43.9 [facility] Comment on above: Performed By: #### L 501.5200, L500.2500, L100.0100 ####[facility] [address] [place], [address] WBC (Bld) [#/Vol] 12.4 10*3/uL High 4.4-11.0 [facility] Comment on above: Performed By: #### L 501.5200, L500.2500, L100.0100 ####[facility] [address], [address] CDIFF (PCR)on 11-23-2024 CDIFF Normal [facility] Comment on above: Performed By: #### M 100.637, M100.6796 ####[facility] [address] [place], [address] Carbon dioxide, total [Moles /volume] in Central venous bloodOrdered By: Kenny Pompa on 11-23-2024 CO2 [Moles/Vol] 20.0 mmol/L Low 21.0-32.0 [facility] Chloride assayOrdered By: Ross Pompa on 11-23-2024 Chloride [Moles/Vol] 102 mmol/L 98-108 [facility] Clostridium difficile detect ion by polymerase chain reactionOrdered By: Romeo Mina on 11-23-2024 C. difficile DNA AVEL+probe Ql (Unsp spec) [facility] ENTERIC PATHOGEN PANEL STOOL on 11-23-2024 EP PANEL Normal [facility] Comment on above: Performed By: #### M 100.637, M100.1096 ####[facility] [address] [place], [place], [address] Eosinophil percentageOrdered By: Kenny Pompa on 11-23-2024 Eosinophils/100 WBC (Bld) 0.1 % 0-5 [facility] Erythrocyte distribution wid th ratioOrdered By: Kenny Pompa on 11-23-2024 Erythrocyte distribution width (RBC) [Ratio] 13.5 % 11.6-14.6 [facility] Erythrocyte distribution wid th standard deviationOrdered By: Kenny Pompa on 11-23-2024 Erythrocyte distribution width (RBC) [Ratio] 44.1 fl High 35.1-43.9 [facility] Glomerular filtration rate ( GFR) estimation/1.73 sq m using serum, plasma, or whole bOrdered By: Kenny Pompa on 11-23-2024 GFR/1.73 sq M.predicted among non-blacks MDRD (S/P/Bld) [Vol rate/Area] 101 mL/min/{1.73_m2} >60 [facility] Comment on above: mL/min/1.73m2 CKD-EP I Creatinine Equation (2020) [facility]dered By: Romeo Mina on 11-23-2024 Glucose [Mass/Vol] 169 mg/dL High 74-106 [facility] Comment on above: MANAGEMENT OF PATIEN T CARE PER NURSING PROTOCOL Hematocrit Auto (Bld) [Volum e fraction]Ordered By: Kenny Pompa on 11-23-2024 Hematocrit (Bld) [Volume fraction] 29.7 % Low 37-47 [facility] Hemoglobin measurementOrdere d By: Kenny Pompa on 11-23-2024 Hemoglobin (Bld) [Mass/Vol] 10.3 g/dL Low 12.0-15.0 [facility] Immature granulocytes/100 WB C Auto (Bld)Ordered By: Kenny Pompa on 11-23-2024 Immature granulocytes/100 WBC (Bld) 3.500 % High 0.0-0.9 [facility] Comment on above: IG% - Immature Granu locytes (promyelocytes, myelocytes and metamyelocytes) > 1% indicates that a LEFT SHIFT is Present. MCV (mean corpuscular volume ) determinationOrdered By: Kenny Pompa on 11-23-2024 MCV (RBC) [Entitic vol] 89.2 fL 81-99 [facility] Magnesiumon 11-23-2024 Magnesium [Mass/Vol] 1.9 mg/dL Normal 1.5-2.2 [facility] Comment on above: Performed By: #### L 501.5200, L500.2500, L100.0100 ####[facility] [address] [place], [address] Magnesium measurement (mass/ volume)Ordered By: Romeo Mina on 11-23-2024 Magnesium (Unsp spec) [Mass/Vol] 1.9 mg/dL 1.5-2.2 [facility] Mean corpuscular hemoglobin (MCH) determinationOrdered By: Kenny Pompa on 11-23-2024 MCH (RBC) [Entitic mass] 30.9 pg 27.0-32.0 [facility] Mean corpuscular hemoglobin concentration (MCHC) determinationOrdered By: Kenny Pompa on 11-23-2024 MCHC (RBC) [Mass/Vol] 34.7 g/dL 32-36 [facility] Mean platelet volume determi nationOrdered By: Kenny Pompa on 11-23-2024 Platelet mean volume (Bld) [Entitic vol] 9.7 fL 6.2-12.0 [facility] Monocyte percentageOrdered B y: Kenny Pompa on 11-23-2024 Monocytes/100 WBC (Bld) 9.0 % 0-10 [facility] Neutrophil percentageOrdered By: Kenny Pompa on 11-23-2024 Neutrophils/100 WBC (Bld) 79.0 % High 47-70 [facility] Nucleated red blood cell per centageOrdered By: Kenny Pompa on 11-23-2024 Nucleated RBC/100 WBC (Bld) [Ratio] 0.2 % 0-5 [facility] Phosphoruson 11-23-2024 Phosphate [Mass/Vol] 2.4 mg/dL Low 2.7-4.5 [facility] Comment on above: Performed By: #### L 501.2300 ####[facility] [address] [place], [place], [address] Platelet countOrdered By: Ross Pompa on 11-23-2024 Platelets (Bld) [#/Vol] 240 10*3/uL 150-450 [facility] Potassium measurement (mass/ volume)Ordered By: Kenny Pompa on 11-23-2024 Potassium (Unsp spec) [Mass/Vol] 3.5 mmol/L 3.3-5.1 [facility] RBC Auto (Bld) [#/Vol]Ordere d By: Kenny Pompa on 11-23-2024 RBC (Bld) [#/Vol] 3.33 10*6/uL Low 4.2-5.4 [facility] Serum creatinine measurement (mass/volume)Ordered By: Kenny Pompa on 11-23-2024 Creatinine [Mass/Vol] 0.60 mg/dL Low 0.70-1.20 [facility] Serum glucose measurement (m ass/volume)Ordered By: Kenny Pompa on 11-23-2024 Glucose [Mass/Vol] 175 mg/dL High 70-99 [facility] Serum or plasma calcium greta urement (mass/volume)Ordered By: Kenny Pompa on 11-23-2024 Calcium [Mass/Vol] 8.2 mg/dL 7.6-11.0 [facility] Serum or plasma urea nitroge n measurement (mass/volume)Ordered By: Kenny Pompa on 11-23-2024 Urea nitrogen [Mass/Vol] 18 mg/dL 4-19 [facility] Sodium levelOrdered By: Micah Pompa on 11-23-2024 Sodium [Moles/Vol] 134 mmol/L 133-145 [facility] Stool Occult Blood iFOBon STOB Normal [facility] Comment on above: Performed By: #### M 100.7900 ####[facility] [address] [place], [address] Stool gastrointestinal hemog lobin detection by immunologic methodOrdered By: Ej Brown on 11-23-2024 Lower GI hemoglobin IA Ql (Stl) Positive Abnormal [facility] White blood cell (WBC) count Ordered By: Kenny Pompa on 11-23-2024 WBC (Bld) [#/Vol] 12.4 10*3/uL High 4.4-11.0 [facility] Basic Metabolic Profile (BMP )on 11-22-2024 BUN/CRE 23.2 RATIO High 10-20 [facility] Comment on above: Performed By: #### L 500.2500, L100.0100 ####[facility] [address] [place], [address] Calcium [Mass/Vol] 8.4 mg/dL Normal 7.6-11.0 [facility] Comment on above: Performed By: #### L 500.2500, L100.0100 ####[facility] [address] [place], [address] Chloride [Moles/Vol] 104 mmol/L Normal 98-108 [facility] Comment on above: Performed By: #### L 500.2500, L100.0100 ####[facility] [address] [place], [address] CO2 [Moles/Vol] 20.0 mmol/L Low 21.0-32.0 [facility] Comment on above: Performed By: #### L 500.2500, L100.0100 ####[facility] [address] [place], [address] Creatinine [Mass/Vol] 0.73 mg/dL Normal 0.70-1.20 [facility] Comment on above: Performed By: #### L 500.2500, L100.0100 ####[facility] [address] [place], [address] ECRCL 73.12 ml/min Normal 50-250 [facility] Comment on above: Performed By: #### L 500.2500, L100.0100 ####[facility] [address] [place], [address] GAP 10 Normal 5-15 [facility] Comment on above: Performed By: #### L 500.2500, L100.0100 ####[facility] [address] [place], [address] GFR/1.73 sq M.predicted among non-blacks MDRD (S/P/Bld) [Vol rate/Area] 92 mL/min/{1.73_m2} Normal >60 [facility] Comment on above: Result Comment: mL/m in/1.73m2 CKD-EPI Creatinine Equation (2020) Performed By: #### L 500.2500, L100.0100 ####[facility] [address] [place], [address] Glucose [Mass/Vol] 125 mg/dL High 70-99 [facility] Comment on above: Performed By: #### L 500.2500, L100.0100 ####[facility] [address] [place], [address] Potassium [Moles/Vol] 3.5 mmol/L Normal 3.3-5.1 [facility] Comment on above: Performed By: #### L 500.2500, L100.0100 ####[facility] [address] [place], [address] Sodium [Moles/Vol] 134 mmol/L Normal 133-145 [facility] Comment on above: Performed By: #### L 500.2500, L100.0100 ####[facility] [address] [place], [address] Urea nitrogen [Mass/Vol] 17 mg/dL Normal 4-19 [facility] Comment on above: Performed By: #### L 500.2500, L100.0100 ####[facility] [address] [place], [address] Bedside Glucoseon 11-22-2024 FINGERSTICK GLU 120 mg/dL High 74-106 [facility] Comment on above: Result Comment: NEHAL GEMENT OF PATIENT CARE PER NURSING PROTOCOL Performed By: #### L 501.080 ####[facility] [address] [place], [address] FINGERSTICK GLU 169 mg/dL High 74-106 [facility] Comment on above: Result Comment: NEHAL GEMENT OF PATIENT CARE PER NURSING PROTOCOL Performed By: #### L 501.080 ####[facility] [address] [place], [address] Blood manual differential co mment interpretation (narrative result)Ordered By: Kenny Pompa on 11-22-2024 Manual differential comment Valente (Bld) [Interp] SCANNED [facility] CBC W/Diff, Automatedon 10- SMEAR COMMENT SCANNED Normal [facility] Comment on above: Performed By: #### L 500.2500, L100.0100 ####[facility] [address] [place], [address] Basic Metabolic Profile (BMP )on 11-21-2024 BUN/CRE 21.2 RATIO High 10-20 [facility] Comment on above: Performed By: #### L 100.0100, L500.2500 ####[facility] [address] [place], [address] Calcium [Mass/Vol] 7.9 mg/dL Normal 7.6-11.0 [facility] Comment on above: Performed By: #### L 100.0100, L500.2500 ####[facility] [address] [place], [address] Chloride [Moles/Vol] 105 mmol/L Normal 98-108 [facility] Comment on above: Performed By: #### L 100.0100, L500.2500 ####[facility] [address] [place], [address] CO2 [Moles/Vol] 17.7 mmol/L Low 21.0-32.0 [facility] Comment on above: Performed By: #### L 100.0100, L500.2500 ####[facility] [address] [place], [address] Creatinine [Mass/Vol] 0.82 mg/dL Normal 0.70-1.20 [facility] Comment on above: Performed By: #### L 100.0100, L500.2500 ####[facility] [address] [place], [address] ECRCL 65.18 ml/min Normal 50-250 [facility] Comment on above: Performed By: #### L 100.0100, L500.2500 ####[facility] [address] [place], [address] GAP 11 Normal 5-15 [facility] Comment on above: Performed By: #### L 100.0100, L500.2500 ####[facility] [address] [place], [address] GFR/1.73 sq M.predicted among non-blacks MDRD (S/P/Bld) [Vol rate/Area] 80 mL/min/{1.73_m2} Normal >60 [facility] Comment on above: Result Comment: mL/m in/1.73m2 CKD-EPI Creatinine Equation (2020) Performed By: #### L 100.0100, L500.2500 ####[facility] [address] [place], [address] Glucose [Mass/Vol] 137 mg/dL High 70-99 [facility] Comment on above: Performed By: #### L 100.0100, L500.2500 ####[facility] [address] [place], [address] Potassium [Moles/Vol] 3.6 mmol/L Normal 3.3-5.1 [facility] Comment on above: Performed By: #### L 100.0100, L500.2500 ####[facility] [address] [place], [address] Sodium [Moles/Vol] 133 mmol/L Normal 133-145 [facility] Comment on above: Performed By: #### L 100.0100, L500.2500 ####[facility] [address] [place], [address] Urea nitrogen [Mass/Vol] 17 mg/dL Normal 4-19 [facility] Comment on above: Performed By: #### L 100.0100, L500.2500 ####[facility] [address] [place], [address] Bedside Glucoseon 11-21-2024 FINGERSTICK GLU 114 mg/dL High 74-106 [facility] Comment on above: Result Comment: NEHAL GEMENT OF PATIENT CARE PER NURSING PROTOCOL Performed By: #### L 501.080 ####[facility] [address] [place], [address] FINGERSTICK GLU 133 mg/dL High 74-106 [facility] Comment on above: Result Comment: NEHAL GEMENT OF PATIENT CARE PER NURSING PROTOCOL Performed By: #### L 501.080 ####[facility] [address], [address] FINGERSTICK GLU 154 mg/dL High 74-106 [facility] Comment on above: Result Comment: NEHAL GEMENT OF PATIENT CARE PER NURSING PROTOCOL Performed By: #### L 501.080 ####[facility] [address], [address] FINGERSTICK GLU 116 mg/dL High 74-106 [facility] Comment on above: Result Comment: NEHAL GEMENT OF PATIENT CARE PER NURSING PROTOCOL Performed By: #### L 501.080 ####[facility] [address] [place], [address] CBC W/Diff, Automatedon 11-10 SMEAR COMMENT SCANNED Normal [facility] Comment on above: Result Comment: LYMP HOPENIA PRESENTLEFT SHIFT: BANDS PRESENT 2+ Performed By: #### L 100.0100, L500.2500 ####[facility] [address] [place], [address] Basic Metabolic Profile (BMP )on 11-20-2024 BUN/CRE 20.9 RATIO High 10-20 [facility] Comment on above: Performed By: #### L 500.2500, L100.0100 ####[facility] [address] [place], [address] Calcium [Mass/Vol] 7.8 mg/dL Normal 7.6-11.0 [facility] Comment on above: Performed By: #### L 500.2500, L100.0100 ####[facility] [address] [place], [address] Chloride [Moles/Vol] 106 mmol/L Normal 98-108 [facility] Comment on above: Performed By: #### L 500.2500, L100.0100 ####[facility] [address] [place], [address] CO2 [Moles/Vol] 15.2 mmol/L Low 21.0-32.0 [facility] Comment on above: Performed By: #### L 500.2500, L100.0100 ####[facility] [address] [place], [address] Creatinine [Mass/Vol] 1.29 mg/dL High 0.70-1.20 [facility] Comment on above: Performed By: #### L 500.2500, L100.0100 ####[facility] [address] [place], [address] ECRCL 41.43 ml/min Low 50-250 [facility] Comment on above: Performed By: #### L 500.2500, L100.0100 ####[facility] [address] [place], [address] GAP 13 Normal 5-15 [facility] Comment on above: Performed By: #### L 500.2500, L100.0100 ####[facility] [address] [place], [address] GFR/1.73 sq M.predicted among non-blacks MDRD (S/P/Bld) [Vol rate/Area] 47 mL/min/{1.73_m2} Low >60 [facility] Comment on above: Result Comment: mL/m in/1.73m2 CKD-EPI Creatinine Equation (2020) Performed By: #### L 500.2500, L100.0100 ####[facility] [address] [place], [address] Glucose [Mass/Vol] 157 mg/dL High 70-99 [facility] Comment on above: Performed By: #### L 500.2500, L100.0100 ####[facility] [address] [place], [address] Potassium [Moles/Vol] 3.9 mmol/L Normal 3.3-5.1 [facility] Comment on above: Performed By: #### L 500.2500, L100.0100 ####[facility] [address] [place], [address] Sodium [Moles/Vol] 134 mmol/L Normal 133-145 [facility] Comment on above: Performed By: #### L 500.2500, L100.0100 ####[facility] [address] [place], [address] Urea nitrogen [Mass/Vol] 27 mg/dL High 4-19 [facility] Comment on above: Performed By: #### L 500.2500, L100.0100 ####[facility] [address] [place], [address] Bedside Glucoseon 11-20-2024 FINGERSTICK GLU 127 mg/dL High 74-106 [facility] Comment on above: Result Comment: NEHAL GEMENT OF PATIENT CARE PER NURSING PROTOCOL Performed By: #### L 501.080 ####[facility] [address] [place], [address] FINGERSTICK GLU 112 mg/dL High 74-106 [facility] Comment on above: Result Comment: NEHAL GEMENT OF PATIENT CARE PER NURSING PROTOCOL Performed By: #### L 501.080 ####[facility] [address] [place], [address] FINGERSTICK GLU 123 mg/dL High 74-106 [facility] Comment on above: Result Comment: NEHAL GEMENT OF PATIENT CARE PER NURSING PROTOCOL Performed By: #### L 501.080 ####[facility] [address] [place], [address] FINGERSTICK GLU 143 mg/dL High 74-106 [facility] Comment on above: Result Comment: NEHAL CHENG OF PATIENT CARE PER NURSING PROTOCOL Performed By: #### L 501.080 ####[facility] [address] [place], [address] Blood vacuolated neutrophils detection by light microscopyOrdered By: Kenny Pompa on 11-20-2024 Neutrophils.vacuolated LM Ql (Bld) 1+ [facility] CBC W/Diff, Automatedon 11-10 PLT EST ADEQUATE Normal ADEQ [facility] Comment on above: Performed By: #### L 500.2500, L100.0100 ####[facility] [address] [place], [address] RED CELL MORPH NORM C+C Normal NORM C C [facility] Comment on above: Performed By: #### L 500.2500, L100.0100 ####[facility] [address] [place], [address] SMEAR COMMENT Normal [facility] Comment on above: Result Comment: 1+ B ANDS Performed By: #### L 500.2500, L100.0100 ####[facility] [address] [place], [address] VACUOLATE CELLS 1+ Normal [facility] Comment on above: Performed By: #### L 500.2500, L100.0100 ####[facility] [address] [place], [address] Consultation - Intensiviston 11-20-2024 Consultation - Sap Bi Architect Normal [facility] Erythrocyte morphology asses smentOrdered By: Kenny Pompa on 11-20-2024 RBC morphology finding Nom (Bld) NORM C+C NORMAL NORM C&C [facility] Platelet estimateOrdered By: Kenny Pompa on 11-20-2024 Platelets LM Ql (Bld) ADEQUATE ADEQ [facility] Abdomen/Pel W ORAL Cont Only on 11-19-2024 Abdomen/Pel W ORAL Cont Only Normal [facility] Abdomen/Pelvis W IV Cont ONL Yon 11-19-2024 Abdomen/Pelvis W IV Cont ONLY Normal [facility] Assessment of wrist artery p atency prior to arterial punctureOrdered By: Romeo Powell on 11-19-2024 Arterial patency Wrist artery --pre arterial puncture Positive [facility] Bedside Glucoseon 11-19-2024 FINGERSTICK GLU 142 mg/dL High -106 [facility] Comment on above: Result Comment: NEHAL GEMENT OF PATIENT CARE PER NURSING PROTOCOL Performed By: #### L 501.080 ####[facility] [address] [place], [address] FINGERSTICK GLU 180 mg/dL High [address] [place] [address] Comment on above: Result Comment: NEHAL GEMENT OF PATIENT CARE PER NURSING PROTOCOL Performed By: #### L 501.080 ####[facility] [address] [place], [address] FINGERSTICK GLU 223 mg/dL High [address] [place] [address] Comment on above: Result Comment: ENHAL GEMENT OF PATIENT CARE PER NURSING PROTOCOL Performed By: #### L 501.080 ####[facility] [address] [place], [address] Bilirubin, totalOrdered By: Romeo Powell on 11-19-2024 Bilirubin [Mass/Vol] 0.45 mg/dL 0.00-1.30 [facility] Blood Gases by CPSon 025 NAYANA TEST Positive Normal [facility] Comment on above: Performed By: #### L 9000.0800 ####[facility] [address] [place], [address] Base excess Calc (Bld) [Moles/Vol] -12 mmol/L Low -2 to +2 [facility] Comment on above: Performed By: #### L 9000.0800 ####[facility] [address] [place], [address] Blood Gas Type ART Normal [facility] Comment on above: Performed By: #### L 8999.08 ####[facility] [address] [place], [address] CO2 [Moles/Vol] 16 mmol/L Normal [facility] Comment on above: Performed By: #### L 8999.0800 ####[facility] [address] [place], [address] HCO3 (Bld) [Moles/Vol] 14.9 mmol/L Low 22-26 [facility] Comment on above: Performed By: #### L 8999.0800 ####[facility] [address] [place], [address] Mode Not entered Normal [facility] Comment on above: Performed By: #### L 0.0800 ####[facility] [address] [place], [address] O2 Delivery Dev Room Air Normal [facility] Comment on above: Performed By: #### L 8999.0800 ####[facility] [address] [place], [address] pCO2 30.4 mmHg Low 35-45 [facility] Comment on above: Performed By: #### L 8999.0800 ####[facility] [address] [place], [address] pH (Bld) 7.30 [pH] Low 7.35-7.45 [facility] Comment on above: Performed By: #### L 8999.0800 ####[facility] [address] [place], [address] PO2 81 mmHG Normal 75-100 [facility] Comment on above: Performed By: #### L 8999.0800 ####[facility] [address] [place], [address] SITE L Radial Normal [facility] Comment on above: Performed By: #### L 9000.0800 ####[facility] [address] [place], [address] SO2 95 Normal 95-99 [facility] Comment on above: Performed By: #### L 9000.0800 ####[facility] [address] [place], [address] Blood base excess determinat ionOrdered By: Romeo Powell on 11-19-2024 Base excess Calc (BldV) [Moles/Vol] -12 mmol/L Low -2-2 [facility] Blood bicarbonate measuremen tOrdered By: Romeo Powell on 11-19-2024 HCO3 (Bld) [Moles/Vol] 14.9 mmol/L Low 22-26 [facility] CBC W/Diff, Automatedon 11-10 Absolute Lymph 0.75 X10 3/uL Low 0.83-4.51 [facility] Comment on above: Performed By: #### L 501.2300, L100.0100, L500.4050, L500.4100 ####[facility] [address], [address] Absolute Neut 19.5 X10 3/uL High 2.0-7.7 [facility] Comment on above: Performed By: #### L 501.2300, L100.0100, L500.4050, L500.4100 ####[facility] [address] [place], [address] Basophils/100 WBC (Bld) 0.2 % Normal 0-1 [facility] Comment on above: Performed By: #### L 501.2300, L100.0100, L500.4050, L500.4100 ####[facility] [address] [place], [address] Eosinophils/100 WBC (Bld) 0.1 % Normal 0-5 [facility] Comment on above: Performed By: #### L 501.2300, L100.0100, L500.4050, L500.4100 ####[facility] [address] [place], [address] Erythrocyte distribution width (RBC) [Ratio] 13.2 % Normal 11.6-14.6 [facility] Comment on above: Performed By: #### L 501.2300, L100.0100, L500.4050, L500.4100 ####[facility] [address] [place], [address] Hematocrit (Bld) [Volume fraction] 37.1 % Normal 37-47 [facility] Comment on above: Performed By: #### L 501.2300, L100.0100, L500.4050, L500.4100 ####[facility] [address] [place], [address] Hemoglobin (Bld) [Mass/Vol] 12.6 g/dL Normal 12.0-15.0 [facility] Comment on above: Performed By: #### L 501.2300, L100.0100, L500.4050, L500.4100 ####[facility] [address] [place], [address] IG% 0.600 Normal 0.0-0.9 [facility] Comment on above: Result Comment: IG% - Immature Granulocytes (promyelocytes, myelocytes andmetamyelocytes) > 1% indicates that a LEFT SHIFT is Present. Performed By: #### L 501.2300, L100.0100, L500.4050, L500.4100 ####[facility] [address] [place], [address] Lymphocytes/100 WBC (Bld) 3.5 % Low 19-41 [facility] Comment on above: Performed By: #### L 501.2300, L100.0100, L500.4050, L500.4100 ####[facility] [address] [place], [address] MCH (RBC) [Entitic mass] 31.5 pg Normal 27.0-32.0 [facility] Comment on above: Performed By: #### L 501.2300, L100.0100, L500.4050, L500.4100 ####[facility] [address] [place], [address] MCHC (RBC) [Mass/Vol] 34.0 g/dL Normal 32-36 [facility] Comment on above: Performed By: #### L 501.2300, L100.0100, L500.4050, L500.4100 ####[facility] [address] [place], [address] MCV (RBC) [Entitic vol] 92.8 fL Normal 81-99 [facility] Comment on above: Performed By: #### L 501.2300, L100.0100, L500.4050, L500.4100 ####[facility] [address] [place], [address] Monocytes/100 WBC (Bld) 4.9 % Normal 0-10 [facility] Comment on above: Performed By: #### L 501.2300, L100.0100, L500.4050, L500.4100 ####[facility] [address] [place], [address] Neutrophils/100 WBC (Bld) 90.7 % High 47-70 [facility] Comment on above: Performed By: #### L 501.2300, L100.0100, L500.4050, L500.4100 ####[facility] [address] [place], [address] Nucleated RBC (Bld) [#/Vol] 0 10*3/uL Normal 0-5 [facility] Comment on above: Performed By: #### L 501.2300, L100.0100, L500.4050, L500.4100 ####[facility] [address] [place], [address] Platelet mean volume (Bld) [Entitic vol] 9.7 fL Normal 6.2-12.0 [facility] Comment on above: Performed By: #### L 501.2300, L100.0100, L500.4050, L500.4100 ####[facility] [address] [place], [address] Platelets (Bld) [#/Vol] 276 10*3/uL Normal 150-450 [facility] Comment on above: Performed By: #### L 501.2300, L100.0100, L500.4050, L500.4100 ####[facility] [address] [place], [address] RBC (Bld) [#/Vol] 4.00 10*6/uL Low 4.2-5.4 [facility] Comment on above: Performed By: #### L 501.2300, L100.0100, L500.4050, L500.4100 ####[facility] [address] [place], [address] RDW SD 45.2 fl High 35.1-43.9 [facility] Comment on above: Performed By: #### L 501.2300, L100.0100, L500.4050, L500.4100 ####[facility] [address] [place], [address] WBC (Bld) [#/Vol] 21.4 10*3/uL High 4.4-11.0 [facility] Comment on above: Performed By: #### L 501.2300, L100.0100, L500.4050, L500.4100 ####[facility] [address] [place], [address] CTA Chest W/WO Contraston CTA Chest W/WO Contrast Normal [facility] Calculated very low density lipoprotein (VLDL) cholesterol measurementOrdered By: Romeo Powell on 11-19-2024 Calculated very low density lipoprotein (VLDL) cholesterol measurement 11 mg/dL 5-40 [facility] Chest without Contraston Chest without Contrast Normal [facility] Comprehensive Metabolic Prof ilon 11-19-2024 Albumin [Mass/Vol] 2.7 g/dL Low 3.4-4.8 [facility] Comment on above: Performed By: #### L 501.2300, L100.0100, L500.4050, L500.4100 ####[facility] [address] [place], [address] Albumin/Globulin [Mass ratio] 1.5 {ratio} Normal 0.9-2.4 [facility] Comment on above: Performed By: #### L 501.2300, L100.0100, L500.4050, L500.4100 ####[facility] [address] [place], [address] ALK PHOS 64 U/L Normal 35-104 [facility] Comment on above: Performed By: #### L 501.2300, L100.0100, L500.4050, L500.4100 ####[facility] [address] [place], [address] ALT [Catalytic activity/Vol] 45 U/L High <=34 [facility] Comment on above: Performed By: #### L 501.2300, L100.0100, L500.4050, L500.4100 ####[facility] [address] [place], [address] AST [Catalytic activity/Vol] 56 U/L High <=31 [facility] Comment on above: Performed By: #### L 501.2300, L100.0100, L500.4050, L500.4100 ####[facility] [address] [place], [address] Bilirubin [Mass/Vol] 0.45 mg/dL Normal 0.00-1.30 [facility] Comment on above: Performed By: #### L 501.2300, L100.0100, L500.4050, L500.4100 ####[facility] [address] [place], [address] BUN/CRE 15.9 RATIO Normal 10-20 [facility] Comment on above: Performed By: #### L 501.2300, L100.0100, L500.4050, L500.4100 ####[facility] [address] [place], [address] Calcium [Mass/Vol] 7.3 mg/dL Low 7.6-11.0 [facility] Comment on above: Performed By: #### L 501.2300, L100.0100, L500.4050, L500.4100 ####[facility] [address] [place], [address] Chloride [Moles/Vol] 109 mmol/L High 98-108 [facility] Comment on above: Performed By: #### L 501.2300, L100.0100, L500.4050, L500.4100 ####[facility] [address] [place], [address] CO2 [Moles/Vol] 14.8 mmol/L Low 21.0-32.0 [facility] Comment on above: Performed By: #### L 501.2300, L100.0100, L500.4050, L500.4100 ####[facility] [address] [place], [address] Creatinine [Mass/Vol] 1.57 mg/dL High 0.70-1.20 [facility] Comment on above: Performed By: #### L 501.2300, L100.0100, L500.4050, L500.4100 ####[facility] [address] [place], [address] ECRCL 33.79 ml/min Low 50-250 [facility] Comment on above: Performed By: #### L 501.2300, L100.0100, L500.4050, L500.4100 ####[facility] [address] [place], [address] GAP 12 Normal 5-15 [facility] Comment on above: Performed By: #### L 501.2300, L100.0100, L500.4050, L500.4100 ####[facility] [address] [place], [address] GFR/1.73 sq M.predicted among non-blacks MDRD (S/P/Bld) [Vol rate/Area] 37 mL/min/{1.73_m2} Low >60 [facility] Comment on above: Result Comment: mL/m in/1.73m2 CKD-EPI Creatinine Equation (2020) Performed By: #### L 501.2300, L100.0100, L500.4050, L500.4100 ####[facility] [address] [place], [address] Globulin (S) [Mass/Vol] 1.8 g/dL Low 2.2-4.2 [facility] Comment on above: Performed By: #### L 501.2300, L100.0100, L500.4050, L500.4100 ####[facility] [address] [place], [address] Glucose [Mass/Vol] 258 mg/dL High 70-99 [facility] Comment on above: Performed By: #### L 501.2300, L100.0100, L500.4050, L500.4100 ####[facility] [address] [place], [address] Potassium [Moles/Vol] 4.4 mmol/L Normal 3.3-5.1 [facility] Comment on above: Performed By: #### L 501.2300, L100.0100, L500.4050, L500.4100 ####[facility] [address] [place], [address] Sodium [Moles/Vol] 135 mmol/L Normal 133-145 [facility] Comment on above: Performed By: #### L 501.2300, L100.0100, L500.4050, L500.4100 ####[facility] [address] [place], [address] T PROT 4.5 g/dL Low 5.9-8.4 [facility] Comment on above: Performed By: #### L 501.2300, L100.0100, L500.4050, L500.4100 ####[facility] [address] [place], [address] Urea nitrogen [Mass/Vol] 25 mg/dL High 4-19 [facility] Comment on above: Performed By: #### L 501.2300, L100.0100, L500.4050, L500.4100 ####[facility] [address] [place], [address] Consultation - Surgicalon Consultation - Surgical Normal [facility] Consultation - Surgical Normal [facility] D-Dimer Quantitative (DVT/PE )on 11-19-2024 D-DIMER QUANT > 20.00 Invalid Interpretation Code 0.27-0.49 [facility] Comment on above: Result Comment: D-Di alireza ELEVATED (>0.49): Additional studies and clinicalassessments are indicated to conclude diagnosis of:Deep Vein Thrombosis (DVT) or Pulmonary Embolism (PE)CRITICAL VALUE CALLED TO IJVWFHMAU11/10/25 0404 Sola Drake.RESULTS READ BACK BY SAME. Performed By: #### L 300.8000 ####[facility] [address] [place], [address] Echo Complete W/ Contraston 11-19-2024 Echo Complete W/ Contrast Normal [facility] Echocardiogram study reportO rdered By: Kam Vasquez on 11-19-2024 Study report [facility] [address] [place] [address] Echo Complete W/ Contrast 11/19/24 0854 MR#: [id number] Acct: [id number] Name: DAVID ALDRICH Rep #:[id number] : 1960 64 From: Kam Vasquez MD Attending Dr: Dr. Kenny Pompa MD Status: ADM IN Ordering Dr: Romeo Khan DO Date: 11/19/24 Location: ICU Sex: F C Admitted: 11/19/24 Reason For Study Reason For Study: OTHER Procedure This was a 2D Doppler, Color Flow transthoracic echocardiogram. The study was technically difficult. Contrast injection was performed. Exam performed portable in ICU/CCU. Left Ventricle Normal LV size. Mild concentric left ventricular hypertrophy. The left ventricular ejection fraction is 65 %. Stage 1 diastolic dysfunction. Right Ventricle Normal right ventricle. Atria Normal left atrium. The right atrium is not well visualized. Mitral Valve Normal mitral valve. Tricuspid Valve The tricuspid valve is not well visualized. Aortic Valve The aortic valve is not well visualized. Pulmonic Valve The pulmonic valve is not well visualized. Great Vessels The aortic root is not well visualized. Pericardium/Pleural No pericardial effusion. Medication Diluted definity 1ml given slow IV push to enhance endocardial definition. MMode/2D Measurements & Calculations LVIDd: 3.2 cm IVSd: 1.2 cm LVIDs: 2.0 cm LVPWd: 1.2 cm FS: 37.5 % Doppler Measurements & Calculations MV E max olga: 30.9 cm/sec Ao V2 max: 111.4 cm/sec LV V1 max: 116.3 cm/sec Ao max P.1 mmHg LV V1 max P.6 mmHg Ao V2 mean: 76.2 cm/sec LV V1 mean P.6 mmHg Ao mean P.7 mmHg LV V1 mean: 74.6 cm/sec Ao V2 VTI: 19.4 cm LV V1 VTI: 18.4 cm AV (velocity ratio): 0.95 PA V2 max: 95.5 cm/sec PA V2 mean: 69.2 cm/sec ECHO/Echo Complete W/ Contrast Interpretation Summary Technically difficult study with suboptimal images. Mild concentric left ventricular hypertrophy. The left ventricular ejection fraction is 65 %. Stage 1 diastolic dysfunction. Ordering Physician: Romeo Khan Referring Physician: LULU SWANSON Performed By: Agnieszka Brenner RCS 11/19/24 1144 Date _ Kam Vasquez MD CC: PROCESS OPERATOR-C Lulu Swanson; Dr. Romeo Khan DO; Dr. Kenny Pompa MD ~ Date Dictated: 11/19/2454 Date Transcribed: 11/19/24 114 Ug Designer: Signed [facility] Work Phone: Free T3on 11-19-2024 Free T3 [Mass/Vol] 2.4 pg/mL Normal 2.18-3.98 [facility] Comment on above: Performed By: #### L 501.30129, L501.9985, L3440.5000, L506.0400 ####[facility] [address] [place], [place], [address] Free R6Xxpsqdl By: Romeo garcia on 11-19-2024 Free T3 [Mass/Vol] 2.4 pg/mL 2.18-3.98 [facility] H AND P Exam - Hospitaliston 11-19-2024 H&P Exam - Hospitalist Normal [facility] Hemoglobin A1con 11-19-2024 HbA1c (Bld) [Mass fraction] 6.1 % High <=5.6 [facility] Comment on above: Result Comment: Norm al < 5.7 % Prediabetic 5.7 - 6.4 % Diabetic >or= 6.5 % Please note range changes. Performed By: #### L 501.57517, L501.9985, L3440.5000, L506.0400 ####[facility] [address] [place], [place], [address] Hemoglobin A1c percentageOrd ered By: Romeo Powell on 11-19-2024 HbA1c (Bld) [Mass fraction] 6.1 % High <5.7 [facility] Comment on above: Normal < 5.7 % Predi abetic 5.7 - 6.4 % Diabetic >or= 6.5 % Please note range changes. L509.6002on 11-19-2024 CORTISOL 35.80 ug/dL High 2.68-10.50 [facility] Comment on above: Performed By: #### L 509.6002 ####[facility] [address] [place], [address] LDL calc ser/plasOrdered By: Romeo Powell on 11-19-2024 Cholesterol in LDL [Mass/Vol] 27 mg/dL [facility] Comment on above: Jdgdnavohm=503-444 m g/dL & Higher Xqhb=427 mg/dL or greaterFriedwald Equation for LDL-C Laboratory - Chemistry and C hemistry - challengeOrdered By: Romeo Powell on 11-19-2024 AST [Catalytic activity/Vol] 56 U/L High <32 [facility] Lactic Acidon 11-19-2024 Lactate [Moles/Vol] 2.7 mmol/L Invalid Interpretation Code 0.0-2.0 [facility] Comment on above: Result Comment: Crit ical Result(s) Called at: 0735 11/19/2024 by: MARTHA??Results read back by same. Performed By: #### L 503.6005 ####[facility] [address] [place], [address] Lactate [Moles/Vol] 2.1 mmol/L Invalid Interpretation Code 0.0-2.0 [facility] Comment on above: Order Comment: Y Result Comment: Crit ical Result(s) Called at:03:24 11-19-24 to Arian Card: Alexia Frances??Results read back by same. Performed By: #### L 503.6005, L501.5200 ####[facility] [address] [place], [address] Lactic acid measurementOrder ed By: Romeo Powell on 11-19-2024 Lactate [Moles/Vol] 2.7 mmol/L Critically high 0.0-2.0 [facility] Comment on above: Critical Result(s) C alled at: 0735 11/19/2024 by: KELL SANTANA Results read back by same. Lipid Profileon 11-19-2024 CHOL:HDL 2.13 Normal [facility] Comment on above: Performed By: #### L 501.2300, L100.0100, L500.4050, L500.4100 ####[facility] [address] [place], [address] Cholesterol [Mass/Vol] 71 mg/dL Normal <=200 [facility] Comment on above: Result Comment: Chol esterol level, Desirable <200 mg/dLBorderline high cholesterol 200-239 mg/dLHigh cholesterol >=240 mg/dLRecommendations of the NCEP Adult Treatment Panel for thefollowing risk-cutoff thresholds for the [place] Americanpulation. Performed By: #### L 501.2300, L100.0100, L500.4050, L500.4100 ####[facility] [address] [place], [address] Cholesterol in HDL [Mass/Vol] 33 mg/dL Low [facility] Comment on above: Result Comment: Gretta onal Cholesterol Education Program (NCEP) guidelines:<40 mg/dL: Low HDL-cholesterol (major risk factor for CHD)>= 60 mg/dL: High HDL-cholesterol (negative risk factor forCHD)HDL-cholesterol is affected by a number of factors, e.g.smoking, exercise, hormones, sex and age. Performed By: #### L 501.2300, L100.0100, L500.4050, L500.4100 ####[facility] [address] [place], [address] Cholesterol in LDL [Mass/Vol] 27 mg/dL Normal [facility] Comment on above: Result Comment: Bord btxolb=821-291 mg/dL Higher Wqfv=824 mg/dL or greaterFriedwald Equation for LDL-C Performed By: #### L 501.2300, L100.0100, L500.4050, L500.4100 ####[facility] [address] [place], [address] Cholesterol in VLDL [Mass/Vol] 11 mg/dL Normal 5-40 [facility] Comment on above: Performed By: #### L 501.2300, L100.0100, L500.4050, L500.4100 ####[facility] [address] [place], [address] Triglyceride [Mass/Vol] 56 mg/dL Normal [facility] Comment on above: Result Comment: The drugs N-Acetylcysteine and Metamizole may falselydepress this assay.Normal range: <150 mg/dLBorderline High: 150-199 mg/dLHigh: 200-499 mg/dLVery High: >500 mg/dL Performed By: #### L 501.2300, L100.0100, L500.4050, L500.4100 ####[facility] [address] [place], [address] M8200.1000on 11-19-2024 M8200.1000 Negative Normal [facility] Comment on above: Performed By: #### M 8200.1000 ####[facility] [address] [place], [address] Magnesiumon 11-19-2024 Magnesium [Mass/Vol] 2.6 mg/dL High 1.5-2.2 [facility] Comment on above: Performed By: #### L 503.6005, L501.5200 ####[facility] [address] [place], [address] Measurement, pHOrdered By: Nilda Powell on 11-19-2024 pH (Unsp spec) 7.30 [pH] Low 7.35-7.45 [facility] Nasal methicillin resistant Staphylococcus aureus (MRSA) DNA detection by PCROrdered By: Kenny Pompa on 11-19-2024 MRSA DNA AVEL+probe Ql (Nose) [facility] No Panel InformationOrdered By: Romeo Powell on 11-19-2024 JAK2 Mutation Comment . [facility] Comment on above: Technical Component performed at [facility] RTPProfessional Component performed by:Maddi John, PhD, FACMGDirector, Molecular OncologyLabco [id number], [address] [facility] [phone] test was developed and its performance characteristicsdetermined by [employer]. It has not been cleared orapproved by the Food and Drug Administration.Performed at: [facility] [id number] [facility] [address], [place], [place] [id number] Director: Lary Spears [facility], Phone: [phone] at: TG - [facility] [id number] [place], [place] [id number] Director: Lary Spears [facility], Phone: [phone] JAK2 V617F Reviewed By Comment . [facility] Comment on above: JAK2 is a cytoplasmi c tyrosine kinase with a arevalo role insignal transduction from multiple hematopoietic growthfactor receptors. A point mutation within exon 14 of theJAK2 gene ([id number]) encoding a valine to phenylalaninesubstitution at position 617 of the JAK2 protein (V617F)has been identified in most patients with polycythemiavera, and in about half of those with either essentialthrombocythemia or idiopathic myelofibrosis. The V617F hasalso been detected, although infrequently, in other myeloiddisorders such as chronic myelomonocytic leukemia andchronic neutrophilic luekemia. V617F is an acquiredmutation that alters a highly conserved valine present inthe negative regulatory JH2 domain of the JAK2 proteinand is predicted to dysregulate kinase activity.Methodology:Total genomic DNA was extracted and subjected to TaqManreal-time PCR amplification/detection. Two amplificationproducts per sample were monitored by real-time PCR usingprimers/probes specific to JAK2 wild type (WT) and AMK6lhapbg V617F. The [id number] Absolute Quantitation softwarewill compare the patient specimen valuse to the standardcurves and generate percent values for wild type andmutant type. In vitro studies have indicated that thisassay has an analytical sensitivity of 1%.References:Trever EJ, Jacob LM, Alfonso PJ, et al. Acquiredmutation of the tyrosine kinase JAK2 in humanmyeloproliferative disorders. Lancet. 2005 Apr 28;365(8041):4593-2140. Ru Pfeiffer V, Bacilio Fischer JP. Aunique clonal JAK2 mutation leading to constitutivesignaling causes polycythaemia vera. Nature. 2005 Jun 07;943(6191):1079-2764.Rashaun R, Fuad F, Luz , et al. A lmnq-fl-nwcebalb mutation of JAK2 in myeloproliferative disorders.N Engl J Med. 2005 Jun 07; 352(17):8105-2390. Blood Gas Sample Site L Radial [facility] Blood Gas Specimen Type ART [facility] Blood Gas Vent Mode Not entered [facility] Oxygen Delivery Device Room Air [facility] Phosphoruson 11-19-2024 Phosphate [Mass/Vol] 5.1 mg/dL High 2.7-4.5 [facility] Comment on above: Performed By: #### L 501.2300, L100.0100, L500.4050, L500.4100 ####[facility] [address] [place], [place], [id number] RESPIRATORY PANEL MOLECULARo n 11-19-2024 RP PANEL Normal [facility] Comment on above: Performed By: #### M 100.638 ####[facility] [address] [place], [place], [id number] Respiratory pathogens detect ion panel by molecular detection methodOrdered By: Romeo Powell on 11-19-2024 Respiratory pathogens DNA and RNA panel AVEL+probe (Resp) [facility] Screening total cholesterol/ high density lipoprotein (HDL) cholesterol ratioOrdered By: Romeo Powell on 11-19-2024 Cholesterol.total/Chol esterol in HDL [Mass ratio] 2.13 {ratio} [facility] Serum globulin measurementOr dered By: Romeo Powell on 11-19-2024 Globulin (S) [Mass/Vol] 1.8 g/dL Low 2.2-4.2 [facility] Serum or plasma alanine stuart otransferase (ALT) measurementOrdered By: Romeo Powell on 11-19-2024 ALT [Catalytic activity/Vol] 45 U/L High <35 [facility] Serum or plasma albumin greta urement (mass/volume)Ordered By: Romeo Powell on 11-19-2024 Albumin [Mass/Vol] 2.7 g/dL Low 3.4-4.8 [facility] Serum or plasma albumin/glob ulin mass ratioOrdered By: Romeo Powell on 11-19-2024 Albumin/Globulin [Mass ratio] 1.5 {ratio} 0.9-2.4 [facility] Serum or plasma alkaline juancarlos sphatase measurementOrdered By: Romeo Powell on 11-19-2024 ALP [Catalytic activity/Vol] 64 U/L 35-104 [facility] Serum or plasma cholesterol in HDL measurement (mass/volume)Ordered By: Romeo Powell on 11-19-2024 Cholesterol in HDL [Mass/Vol] 33 mg/dL Low >40 [facility] Comment on above: National Cholesterol Education Program (NCEP) guidelines:<40 mg/dL: Low HDL-cholesterol (major risk factor for CHD)>= 60 mg/dL: High HDL-cholesterol (negative risk factor for CHD)HDL-cholesterol is affected by a number of factors, e.g. smoking, exercise, hormones, sex and age. Serum or plasma cholesterol measurement (mass/volume)Ordered By: Romeo Powell on 11-19-2024 Cholesterol [Mass/Vol] 71 mg/dL <201 [facility] Comment on above: Cholesterol level, D esirable <200 mg/dLBorderline high cholesterol 200-239 mg/dLHigh cholesterol >=240 mg/dLRecommendations of the NCEP Adult Treatment Panel for the following risk-cutoff thresholds for the [place] population. T4 Free Directon 11-19-2024 T4 FREE DIRECT 0.90 ng/dL Normal 0.76-1.46 [facility] Comment on above: Performed By: #### L 501.81046, L501.9985, L3440.5000, L506.0400 ####[facility] [address] [place], [address] T4 freeOrdered By: Romeo garcia on 11-19-2024 Free T4 [Mass/Vol] 0.90 ng/dL 0.76-1.46 [facility] Total carbon dioxide measure mentOrdered By: Romeo Powell on 11-19-2024 CO2 [Moles/Vol] 16 mmol/L [facility] Total proteinOrdered By: Devon Powell on 11-19-2024 Protein [Mass/Vol] 4.5 g/dL Low 5.9-8.4 [facility] Triglycerides measurementOrd ered By: Romeo Powell on 11-19-2024 Triglyceride [Mass/Vol] 56 mg/dL <199 [facility] Comment on above: The drugs N-Acetylcy steine and Metamizole may falsely depress this assay. Normal range: <150 mg/dLBorderline High: 150-199 mg/dLHigh: 200-499 mg/dLVery High: >500 mg/dL Troponin T HS 2 HRon 11-19- 025 Trop T High Sen Normal <=14 [facility] Comment on above: Result Comment: Canc elled via OM: Duplicate Order Performed By: #### L 499.0042 ####[facility] [address] [place], [address] Trop T High Sen 15 ng/L High <=14 [facility] Comment on above: Performed By: #### L 499.0042 ####[facility] [address] [place], [address] Troponin T HS 4 HRon 025 Trop T High Sen Normal <=14 [facility] Comment on above: Result Comment: Canc elled via OM: Duplicate Order Performed By: #### L 499.0043 ####[facility] [address] [place], [address] Trop T High Sen 22 ng/L High <=14 [facility] Comment on above: Performed By: #### L 499.0043 ####[facility] [address] [place], [address] Troponin T.cardiac [Mass/vol ume] in Serum or Plasma by High sensitivity methodOrdered By: Ru Marques on 11-19-2024 Troponin T.cardiac High sensitivity method [Mass/Vol] 22 ng/L High <14 [facility] Venous Duplex US - Wei Extre mon 11-19-2024 Venous Duplex US - Wei Extrem Normal [facility] Venous duplex ultrasound rep ortOrdered By: Tu Son on 11-19-2024 US Vein [facility] [address] [place] [address] Venous Duplex US - Wei Extrem 11/19/24818 MR#: [id number] Acct: [id number] Name: DAVID ALDRICH Rep #:[id number] : 1960 64 From: Tu Son MD Attending Dr: Dr. Kenny Pompa MD Status: ADM IN Ordering Dr: Romeo Khan DO Date: 11/19/24 Location: ICU Sex: F C Admitted: 11/19/24 Reason For Study Reason For Study: Elevated D-dimer RIGHT LEFT GSV is normal. GSV is normal. CFV is compressible, spontaneous, phasic, competent CFV is compressible, spontaneous, phasic, competent, and demonstrates normal augmentation. and demonstrates normal augmentation. FV is compressible, spontaneous, phasic, competent FV is compressible, spontaneous, phasic, competent and demonstrates normal augmentation. and demonstrates normal augmentation. POP V is compressible, spontaneous, phasic, competent POP V is compressible, spontaneous, phasic, competent and demonstrates normal augmentation. and demonstrates normal augmentation. T/P Trunk is compressible. T/P Trunk is compressible. PTV is compressible. PTV is compressible. RT PerV is compressible. LT PerV is compressible. Procedure This is a venous duplex using B-mode, color flow and spectral Doppler. Exam performed portable in ICU/CCU. A preliminary report was called and/or faxed to ICU. VL/Venous Duplex US - Wei Extrem Interpretation Summary Deep veins of the lower extremities are bilaterally patent and compressible segmentally. There is no evidence of deep vein thrombosis on either side. Valvular competence appears intact within the proximal deep venous systems bilaterally. The great saphenous veins appear bilaterally patent and compressible segmentally. Ordering Physician: Romeo Khan Referring Physician: Lulu Swanson Performed By: Amy Sidhu RVT 11/19/24 1707 Date _ Tu Son MD CC: CB Swanson; Dr. Romeo Khan DO; Dr. Kenny Pompa MD ~ Date Dictated: 11/19/24818 Date Transcribed: 11/19/241706 Ug Designer: Signed [facility] Other Phone: Activated partial thrombopla stin time (aPTT) in platelet poor plasma by coagulation aOrdered By: Ru Marques on 11-18-2024 aPTT Coag (PPP) [Time] 32.1 s 24.1-36.2 [facility] Basic Metabolic Profile (BMP )on 11-18-2024 BUN/CRE 12.4 RATIO Normal 10-20 [facility] Comment on above: Performed By: #### L 100.0100, L500.2500, L501.4021, L500.4050 ####[facility] [address] [place], [address] Calcium [Mass/Vol] 10.0 mg/dL Normal 7.6-11.0 [facility] Comment on above: Performed By: #### L 100.0100, L500.2500, L501.4021, L500.4050 ####[facility] [address] [place], [address] Chloride [Moles/Vol] 98 mmol/L Normal 98-108 [facility] Comment on above: Performed By: #### L 100.0100, L500.2500, L501.4021, L500.4050 ####[facility] [address] [place], [address] CO2 [Moles/Vol] 17.7 mmol/L Low 21.0-32.0 [facility] Comment on above: Performed By: #### L 100.0100, L500.2500, L501.4021, L500.4050 ####[facility] [address] [place], [address] Creatinine [Mass/Vol] 1.36 mg/dL High 0.70-1.20 [facility] Comment on above: Performed By: #### L 100.0100, L500.2500, L501.4021, L500.4050 ####[facility] [address] [place], [address] ECRCL 39.22 ml/min Low 50-250 [facility] Comment on above: Performed By: #### L 100.0100, L500.2500, L501.4021, L500.4050 ####[facility] [address] [place], [address] GAP 18 High 5-15 [facility] Comment on above: Performed By: #### L 100.0100, L500.2500, L501.4021, L500.4050 ####[facility] [address] [place], [address] GFR/1.73 sq M.predicted among non-blacks MDRD (S/P/Bld) [Vol rate/Area] 44 mL/min/{1.73_m2} Low >60 [facility] Comment on above: Result Comment: mL/m in/1.73m2 CKD-EPI Creatinine Equation (2020) Performed By: #### L 100.0100, L500.2500, L501.4021, L500.4050 ####[facility] [address] [place], [address] Glucose [Mass/Vol] 316 mg/dL High 70-99 [facility] Comment on above: Performed By: #### L 100.0100, L500.2500, L501.4021, L500.4050 ####[facility] [address] [place], [address] Potassium [Moles/Vol] 4.0 mmol/L Normal 3.3-5.1 [facility] Comment on above: Performed By: #### L 100.0100, L500.2500, L501.4021, L500.4050 ####[facility] [address] [place], [address] Sodium [Moles/Vol] 134 mmol/L Normal 133-145 [facility] Comment on above: Performed By: #### L 100.0100, L500.2500, L501.4021, L500.4050 ####[facility] [address] [place], [address] Urea nitrogen [Mass/Vol] 17 mg/dL Normal 4-19 [facility] Comment on above: Performed By: #### L 100.0100, L500.2500, L501.4021, L500.4050 ####[facility] [address] [place], [address] Beta-Hydroxbytyrateon 2024 BETA-HYDROXYBUT 0.2 mmol/L Normal 0.0-0.3 [facility] Comment on above: Performed By: #### L 501.6901 ####[facility] [address] [place], [address] Beta-hydroxybutyrateOrdered By: Ru Marques on 11-18-2024 Beta hydroxybutyrate [Mass/Vol] 0.2 mmol/L 0.0-0.3 [facility] Bilirubin Test strip Ql (U)O rdered By: Ru Marques on 11-18-2024 Bilirubin Ql (U) 6 mg/dL High Negative [facility] Comment on above: COLOR OF URINE MAY A FFECT DIPSTICK RESULTS. Blood Gases by CPSon 025 NAYANA TEST N/A Normal [facility] Comment on above: Performed By: #### L 9000.0800 ####[facility] [address] [place], [address] Base excess Calc (Bld) [Moles/Vol] -13 mmol/L Low -2 to +2 [facility] Comment on above: Performed By: #### L 9000.0800 ####[facility] [address] [place], [address] Blood Gas Type ART Normal [facility] Comment on above: Performed By: #### L 8999.0800 ####[facility] [address] [place], [address] CO2 [Moles/Vol] 14 mmol/L Normal [facility] Comment on above: Performed By: #### L 8999.0800 ####[facility] [address] [place], [address] FI02 6.0 [facility] Comment on above: Performed By: #### L 8999.0800 ####[facility] [address] [place], [address] HCO3 (Bld) [Moles/Vol] 13.1 mmol/L Low 22-26 [facility] Comment on above: Performed By: #### L 8999.0800 ####[facility] [address] [place], [address] Mode Not entered [facility] Comment on above: Performed By: #### L 8999.0800 ####[facility] [address] [place], [address] O2 Delivery Dev Cannula Normal [facility] Comment on above: Performed By: #### L 0.0800 ####[facility] [address] [place], [address] pCO2 26.6 mmHg Low 35-45 [facility] Comment on above: Performed By: #### L 8999.0800 ####[facility] [address] [place], [address] pH (Bld) 7.30 [pH] Low 7.35-7.45 [facility] Comment on above: Performed By: #### L 0.0800 ####[facility] [address] [place], [address] PO2 504 mmHG Invalid Interpretation Code 75-100 [facility] Comment on above: Performed By: #### L 9000.0800 ####[facility] [address], [address] Read Back By Yes Normal [facility] Comment on above: Performed By: #### L 9000.0800 ####[facility] [address] [place], [address] Marques [facility] Comment on above: Performed By: #### L 9000.0800 ####[facility] [address] [place], [address] SITE L Radial Normal [facility] Comment on above: Performed By: #### L 9000.0800 ####[facility] [address] [place], [address] SO2 100 High 95-99 [facility] Comment on above: Performed By: #### L 9000.0800 ####[facility] [address] [place], [address] Time Given 21:09:37 [facility] Comment on above: Performed By: #### L 9000.0800 ####[facility] [address] [place], [address] Blood cultureOrdered By: Ru Marques on 11-18-2024 Bacteria identified Cx Nom (Bld) No growth in 5 days. [facility] Bacteria identified Cx Nom (Bld) No growth in 5 days. [facility] CBC W/Diff, Automatedon Hemoglobin (Bld) [Mass/Vol] 18.9 g/dL Invalid Interpretation Code 12.0-15.0 [facility] Comment on above: Result Comment: CRIT ICAL VALUE CALLED TO KARLENE SHANNON [address]RESULTS READ BACK BY SAME. Performed By: #### L 300.3900, L503.6005, L300.4310, L100.0100 ####[facility] [address] [place], [address] Absolute Lymph 4.95 X10 3/uL High 0.83-4.51 [facility] Comment on above: Performed By: #### L 300.3900, L503.6005, L300.4310, L100.0100 ####[facility] [address] [place], [address] Absolute Neut 7.7 X10 3/uL Normal 2.0-7.7 [facility] Comment on above: Performed By: #### L 300.3900, L503.6005, L300.4310, L100.0100 ####[facility] [address] [place], [address] Basophils/100 WBC (Bld) 0.9 % Normal 0-1 [facility] Comment on above: Performed By: #### L 300.3900, L503.6005, L300.4310, L100.0100 ####[facility] [address] [place], [address] Eosinophils/100 WBC (Bld) 2.9 % Normal 0-5 [facility] Comment on above: Performed By: #### L 300.3900, L503.6005, L300.4310, L100.0100 ####[facility] [address] [place], [address] Erythrocyte distribution width (RBC) [Ratio] 13.0 % Normal 11.6-14.6 [facility] Comment on above: Performed By: #### L 300.3900, L503.6005, L300.4310, L100.0100 ####[facility] [address] [place], [address] Hematocrit (Bld) [Volume fraction] 55.1 % High 37-47 [facility] Comment on above: Performed By: #### L 300.3900, L503.6005, L300.4310, L100.0100 ####[facility] [address] [place], [address] IG% 0.800 Normal 0.0-0.9 [facility] Comment on above: Result Comment: IG% - Immature Granulocytes (promyelocytes, myelocytes andmetamyelocytes) > 1% indicates that a LEFT SHIFT is Present. Performed By: #### L 300.3900, L503.6005, L300.4310, L100.0100 ####[facility] [address] [place], [address] Lymphocytes/100 WBC (Bld) 35.6 % Normal 19-41 [facility] Comment on above: Performed By: #### L 300.3900, L503.6005, L300.4310, L100.0100 ####[facility] [address] [place], [address] MCH (RBC) [Entitic mass] 31.4 pg Normal 27.0-32.0 [facility] Comment on above: Performed By: #### L 300.3900, L503.6005, L300.4310, L100.0100 ####[facility] [address] [place], [address] MCHC (RBC) [Mass/Vol] 34.3 g/dL Normal 32-36 [facility] Comment on above: Performed By: #### L 300.3900, L503.6005, L300.4310, L100.0100 ####[facility] [address] [place], [address] MCV (RBC) [Entitic vol] 91.7 fL Normal 81-99 [facility] Comment on above: Performed By: #### L 300.3900, L503.6005, L300.4310, L100.0100 ####[facility] [address] [place], [address] Monocytes/100 WBC (Bld) 4.5 % Normal 0-10 [facility] Comment on above: Performed By: #### L 300.3900, L503.6005, L300.4310, L100.0100 ####[facility] [address] [place], [address] Neutrophils/100 WBC (Bld) 55.3 % Normal 47-70 [facility] Comment on above: Performed By: #### L 300.3900, L503.6005, L300.4310, L100.0100 ####[facility] [address] [place], [address] Nucleated RBC (Bld) [#/Vol] 0 10*3/uL Normal 0-5 [facility] Comment on above: Performed By: #### L 300.3900, L503.6005, L300.4310, L100.0100 ####[facility] [address] [place], [address] Platelet mean volume (Bld) [Entitic vol] 10.6 fL Normal 6.2-12.0 [facility] Comment on above: Performed By: #### L 300.3900, L503.6005, L300.4310, L100.0100 ####[facility] [address] [place], [address] Platelets (Bld) [#/Vol] 390 10*3/uL Normal 150-450 [facility] Comment on above: Performed By: #### L 300.3900, L503.6005, L300.4310, L100.0100 ####[facility] [address] [place], [address] RBC (Bld) [#/Vol] 6.01 10*6/uL High 4.2-5.4 [facility] Comment on above: Performed By: #### L 300.3900, L503.6005, L300.4310, L100.0100 ####[facility] [address] [place], [address] RDW SD 44.1 fl High 35.1-43.9 [facility] Comment on above: Performed By: #### L 300.3900, L503.6005, L300.4310, L100.0100 ####[facility] [address] [place], [address] WBC (Bld) [#/Vol] 13.9 10*3/uL High 4.4-11.0 [facility] Comment on above: Performed By: #### L 300.3900, L503.6005, L300.4310, L100.0100 ####[facility] [address] [place], [address] Absolute Neut Normal 2.0-7.7 [facility] Comment on above: Result Comment: SEE H294 FOR RESULTS. DUPLICATE ORDER Performed By: #### L 100.0100, L500.2500, L501.4021, L500.4050 ####[facility] [address] [place], [address] HCT Normal 37-47 [facility] Comment on above: Result Comment: SEE H294 FOR RESULTS. DUPLICATE ORDER Performed By: #### L 100.0100, L500.2500, L501.4021, L500.4050 ####[facility] [address] [place], [address] HGB Normal 12.0-15.0 [facility] Comment on above: Result Comment: SEE H294 FOR RESULTS. DUPLICATE ORDER Performed By: #### L 100.0100, L500.2500, L501.4021, L500.4050 ####[facility] [address] [place], [address] MCH Normal 27.0-32.0 [facility] Comment on above: Result Comment: SEE H294 FOR RESULTS. DUPLICATE ORDER Performed By: #### L 100.0100, L500.2500, L501.4021, L500.4050 ####[facility] [address] [place], [address] MCHC Normal 32-36 [facility] Comment on above: Result Comment: SEE H294 FOR RESULTS. DUPLICATE ORDER Performed By: #### L 100.0100, L500.2500, L501.4021, L500.4050 ####[facility] [address] [place], [address] MCV Normal 81-99 [facility] Comment on above: Result Comment: SEE H294 FOR RESULTS. DUPLICATE ORDER Performed By: #### L 100.0100, L500.2500, L501.4021, L500.4050 ####[facility] [address] [place], [address] NEUT% Normal 47-70 [facility] Comment on above: Result Comment: SEE H294 FOR RESULTS. DUPLICATE ORDER Performed By: #### L 100.0100, L500.2500, L501.4021, L500.4050 ####[facility] [address] [place], [address] PLT Normal 150-450 [facility] Comment on above: Result Comment: SEE H294 FOR RESULTS. DUPLICATE ORDER Performed By: #### L 100.0100, L500.2500, L501.4021, L500.4050 ####[facility] [address] [place], [address] RBC Normal 4.2-5.4 [facility] Comment on above: Result Comment: SEE H294 FOR RESULTS. DUPLICATE ORDER Performed By: #### L 100.0100, L500.2500, L501.4021, L500.4050 ####[facility] [address] [place], [address] RDW CV Normal 11.6-14.6 [facility] Comment on above: Result Comment: SEE H294 FOR RESULTS. DUPLICATE ORDER Performed By: #### L 100.0100, L500.2500, L501.4021, L500.4050 ####[facility] [address] [place], [address] RDW SD Normal 35.1-43.9 [facility] Comment on above: Result Comment: SEE H294 FOR RESULTS. DUPLICATE ORDER Performed By: #### L 100.0100, L500.2500, L501.4021, L500.4050 ####[facility] [address] [place], [address] WBC Normal 4.4-11.0 [facility] Comment on above: Result Comment: SEE H294 FOR RESULTS. DUPLICATE ORDER Performed By: #### L 100.0100, L500.2500, L501.4021, L500.4050 ####[facility] [address] [place], [address] [facility] [place] Tele[facility] (PEDSWS) DAVID ALDRICH ([id number]) 1960 F NFR Date Time Provider Department 11/18/24 LULU SWANSON During your visit today, we recorded the following information about you: Dia Sherman 11/18/2024 3:08 PM Signed Pt called in regarding scripts request that was placed yesterday. Stated she really needs her meds and script has not been sent over yet Lavon Terry LPN 11/19/2024 7:31 AM Signed Provider is out of office. Covering provider will review refill request when able. Lavon Terry LPN Allergies As of Date: 11/18/2024 Noted Allergy Reaction ZOCOR (SIMVASTATIN) 04/24/2013 17 - Myalgia Date Reviewed: 10/09/2024 Reviewed by: Vannessa Peterson MA - Fully Assessed Prescriptions as of 11/19/2024 - blood sugar diagnostic (BLOOD GLUCOSE TEST) test strip Test blood sugar(s) 1 times daily. Dx: Type 2 DM - Controlled E11.9 Insulin: No - cyclobenzaprine (FLEXERIL) 5 mg tablet Take 1 tablet by mouth three times a day as needed. - zolpidem (AMBIEN) 10 mg Take 1 tablet by mouth daily at bedtime for 30 days. - atorvastatin (LIPITOR) 20 mg tablet Take 1 tablet by mouth once daily. - etodolac (LODINE) 400 mg tablet Take 1 tablet by mouth two times a day. - imipramine HCl (TOFRANIL) 50 mg tablet Take 3 tablets by mouth daily at bedtime. - pantoprazole DR (PROTONIX) 40 mg tablet Take 1 tablet by mouth once daily. - nicotine (NICODERM CQ) 21 mg/24 hr Apply 1 patch as directed every 24 hours. APPLY ONE(1) PATCH DAILY. - nicotine (NICODERM) 14 mg/24 hr Apply 1 patch as directed every 24 hours. - nicotine (NICODERM) 7 mg/24 hr Apply 1 patch as directed every 24 hours. - buPROPion SR (WELLBUTRIN SR) 150 mg 12 hr tablet Take 1 tablet by mouth two times a day. Take 1 tablet a day for 3 days before increasing to 1 tablet twice a day. - thiothixene (NAVANE) 1 mg capsule Take 2 capsules by mouth two times a day. - tiotropium bromide (SPIRIVA RESPIMAT) 2.5 mcg/actuation inhaler Inhale 2 Puffs as instructed once daily. - fluticasone-salmeterol (ADVAIR DISKUS) 250-50 mcg/dose inhaler Inhale 1 Puff as instructed two times a day. RINSE AND GARGLE MOUTH WITH WATER AFTER EACH USE. - albuterol HFA (VENTOLIN HFA) 90 mcg/actuation inhaler Inhale 2 Puffs as instructed every 4 hours as needed for wheezing/shortness of breath. - lisinopril (ZESTRIL) 5 mg tablet Take 1 tablet by mouth once daily. - metFORMIN (GLUCOPHAGE) 500 mg tablet Take 1 tablet by mouth daily with dinner. - ondansetron orally disintegrating (ZOFRAN ODT) 4 mg disintegrating tablet Take 1 tablet by mouth every 8 hours as needed for nausea/vomiting. - Lancets lancets Test blood sugar(s) 1 times daily. Dx: Type 2 DM - Controlled E11.9 Insulin: No - Melatonin 5 mg cap Take 1 capsule by mouth once daily. - Aspirin 81 mg tab Take 1 tablet by mouth once daily. Take with food. Problem List As Of Date 11/18/2024 Noted Resolved Severe major depression with psychotic features*03/11/2005 03/10/2017 Other and unspecified hyperlipidemia [E78.5] 06/30/2006 01/25/2013 Tobacco abuse [Z72.0] 12/20/2010 Hyperlipidemia with target LDL less than 100 [E*01/25/2013 Non-alcoholic fatty liver disease [K76.0] 10/13/2014 Peripheral arterial disease (HCC) [I73.9] 03/06/2015 Diabetes mellitus with peripheral artery diseas*03/06/2015 Hyponatremia [E87.1] 03/17/2015 Controlled type 2 diabetes mellitus without com*05/11/2016 Chronic insomnia [F51.04] 02/11/2017 Recurrent major depressive disorder, in full re*03/10/2017 History of rectal polypectomy [Z98.890, Z87.19] 09/23/2017 Change in bowel habit [R19.4] 09/24/2017 Abdominal pain [R10.9] 09/24/2017 03/09/2018 Mucopurulent chronic bronchitis (HCC) [J41.1] 05/05/2018 Shoulder impingement syndrome, right [M75.41] 10/20/2018 Situational anxiety [F41.8] 10/20/2018 Left sided sciatica [M54.32] 12/24/2018 Cheek mass [R22.0] 12/24/2018 Premature atrial contraction [I49.1] 03/30/2019 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] 04/05/2019 Chronic right shoulder pain [M25.511, G89.29] 06/26/2021 Nontraumatic complete tear of right rotator cuf*06/26/2021 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*10/19/2022 Primary hypertension [I10] 10/19/2022 Familial hypercholesterolemia [E78.019] 10/19/2022 Septic arthritis (HCC) [M00.9] 10/21/2022 Nicotine use disorder, F17.2 [F17.200] 10/22/2022 Coronary artery disease involving [place] aparicio*05/15/2024 Encounter Status:Closed by LAVON TERRY on 11/19/24 Normal [facility] CTA Chest W/WO Contraston CTA Chest W/WO Contrast Normal [facility] Chest 1 View (Portable)on Chest 1 View (Portable) Normal [facility] Chest 1 View (Portable) Normal [facility] Comprehensive Metabolic Prof ilon 11-18-2024 Albumin [Mass/Vol] 3.9 g/dL Normal 3.4-4.8 [facility] Comment on above: Performed By: #### L 100.0100, L500.2500, L501.4021, L500.4050 ####[facility] [address] [place], [address] Albumin/Globulin [Mass ratio] 1.3 {ratio} Normal 0.9-2.4 [facility] Comment on above: Performed By: #### L 100.0100, L500.2500, L501.4021, L500.4050 ####[facility] [address] [place], [address] ALK PHOS 115 U/L High 35-104 [facility] Comment on above: Performed By: #### L 100.0100, L500.2500, L501.4021, L500.4050 ####[facility] [address] [place], [address] ALT [Catalytic activity/Vol] 38 U/L High <=34 [facility] Comment on above: Performed By: #### L 100.0100, L500.2500, L501.4021, L500.4050 ####[facility] [address] [place], [address] AST [Catalytic activity/Vol] 64 U/L High <=31 [facility] Comment on above: Performed By: #### L 100.0100, L500.2500, L501.4021, L500.4050 ####[facility] [address] [place], [address] Bilirubin [Mass/Vol] 0.53 mg/dL Normal 0.00-1.30 [facility] Comment on above: Performed By: #### L 100.0100, L500.2500, L501.4021, L500.4050 ####[facility] [address] [place], [address] Globulin (S) [Mass/Vol] 2.9 g/dL Normal 2.2-4.2 [facility] Comment on above: Performed By: #### L 100.0100, L500.2500, L501.4021, L500.4050 ####[facility] [address] [place], [address] T PROT 6.8 g/dL Normal 5.9-8.4 [facility] Comment on above: Performed By: #### L 100.0100, L500.2500, L501.4021, L500.4050 ####[facility] [address] [place], [address] Emergency Department Summary on 11-18-2024 Emergency Department Summary Normal [facility] Influenza virus A and B and SARS-CoV-2 (COVID-19) and Respiratory syncytial virus RNAOrdered By: Ru Marques on 11-18-2024 SARS-CoV-2 (COVID-19) RNA AVEL+probe Ql (Unsp spec) [facility] International normalized rat io (INR) calculationOrdered By: Ru Marques on 11-18-2024 INR Coag (Bld) [Relative time] 1.2 {INR} [facility] Ketones Test strip Ql (U)Ord ered By: Ru Marques on 11-18-2024 Ketones Ql (U) Negative Negative [facility] L501.4021on 11-18-2024 Trop T High Sen 11 ng/L Normal <=14 [facility] Comment on above: Performed By: #### L 100.0100, L500.2500, L501.4021, L500.4050 ####[facility] [address] [place], [address] Lactic Acidon 11-18-2024 Lactate [Moles/Vol] 3.0 mmol/L Invalid Interpretation Code 0.0-2.0 [facility] Comment on above: Order Comment: Y Result Comment: Crit ical Result(s) Called at: 2209 by:??NEY HERRERA Results read back by same. Performed By: #### L 300.3900, L503.6005, L300.4310, L100.0100 ####[facility] [address] [place], [place], [id number] M100.678on 11-18-2024 M100.678 Pending SARS-CoV-2 (COVID 19) Negative INFLUENZA A Negative INFLUENZA B Negative RSV PCR Negative Normal [facility] Comment on above: Performed By: #### M 100.678 ####[facility] [address] [place], [place], [id number] Microscopic analysis of urin e for red blood cells (RBC)Ordered By: Ru Marques on 11-18-2024 Microscopic analysis of urine for red blood cells (RBC) 0-5 SEEN /hpf 0-5 [facility] Mucus LM Ql (Urine sed)Order ed By: Ru Marques on 11-18-2024 Mucus Ql (Urine sed) 0 SEEN /hpf [facility] Nitrite Test strip Ql (U)Ord ered By: Ru Marques on 11-18-2024 Nitrite Ql (U) Negative Negative [facility] No Panel InformationOrdered By: Ru Marques on 11-18-2024 Bld Gas Crit Called To/Read Back By Yes [facility] Blood Gas Notified Time 21:09:37 [facility] Blood Gas Notified Whom Dr Marques [facility] Partial Thromboplast Timeon 11-18-2024 aPTT Coag (Bld) [Time] 32.1 s Normal 24.1-36.2 [facility] Comment on above: Performed By: #### L 300.3900, L503.6005, L300.4310, L100.0100 ####[facility] [address] [place], [address] Protein Test strip Ql (U)Ord ered By: Ru Marques on 11-18-2024 Protein Ql (U) 100 mg/dl High Negative [facility] Prothrombin Time w/INRon INR Coag (PPP) [Relative time] 1.2 {INR} Normal [facility] Comment on above: Performed By: #### L 300.3900, L503.6005, L300.4310, L100.0100 ####[facility] [address] [place], [address] Prothrombin timeOrdered By: Ru Marques on 11-18-2024 PT Coag (PPP) [Time] 15.7 s High 11.7-14.9 [facility] Comment on above: Performed By: #### L 300.3900, L503.6005, L300.4310, L100.0100 ####[facility] [address] [place], [address] Serum or plasma cortisol concepcion surement (mass/volume)Ordered By: Ru Marques on 11-18-2024 Cortisol [Mass/Vol] 35.80 ug/dL High 2.68-10.50 [facility] Squamous epithelial cells de tection in urine sediment by light microscopyOrdered By: Ru Marques on 11-18-2024 Epithelial cells.squamous LM Ql (Urine sed) 0-5 SEEN /hpf 5-10 [facility] TSH DL <= 0.005 mIU/L QnOrde red By: Ru Marques on 11-18-2024 TSH Qn 16.900 uIU/mL High 0.300-4.20 0 [facility] Thyroid Stim Hormone (TSH)on 11-18-2024 TSH 16.900 uIU/mL High 0.300-4.20 0 [facility] Comment on above: Performed By: #### L 501.9520 ####[facility] [address] [place], [place], [id number] Troponin T.cardiac [Mass/vol ume] in Serum or Plasma by High sensitivity methodOrdered By: Ru Marques on 11-18-2024 Troponin T.cardiac High sensitivity method [Mass/Vol] 15 ng/L High <14 [facility] Troponin T.cardiac High sensitivity method [Mass/Vol] 11 ng/L <14 [facility] Urinalysis, Completeon 11-18 EPI,SQUAMOUS 0-5 SEEN Normal 5-10 [facility] Comment on above: Order Comment: LESIA DORANTESOR TO SPECIFY Performed By: #### L 400.0001 ####[facility] [address] [place], [place], [id number](084) RBC 0-5 SEEN Normal 0-5 [facility] Comment on above: Order Comment: LESIA CTOR TO SPECIFY Performed By: #### L 400.0001 ####[facility] [address] [place], [address] WBC 0-5 SEEN Normal 0-5 [facility] Comment on above: Order Comment: LESIA CTOR TO SPECIFY Performed By: #### L 400.0001 ####[facility] [address] [place], [address] BACTERIA 0 SEEN Normal None Seen [facility] Comment on above: Order Comment: LESIA CTOR TO SPECIFY Performed By: #### L 400.0001 ####[facility] [address] [place], [place], [id number] Mucus Ql (Urine sed) 0 SEEN Normal [facility] Comment on above: Order Comment: LESIA CTOR TO SPECIFY Performed By: #### L 400.0001 ####[facility] [address] [place], [place], [id number] Urine clarityOrdered By: Ru Marques on 11-18-2024 Clarity (U) Clear Clear [facility] Urine color determinationOrd ered By: Ru Marques on 11-18-2024 Color (U) Yellow Yellow [facility] Urine glucose detectionOrder ed By: Ru Marques on 11-18-2024 Glucose Ql (U) Normal mg/dl Normal [facility] Urine leukocyte esterase det ection by dipstickOrdered By: Ru Marques on 11-18-2024 Leukocyte esterase Test strip Ql (U) 25 /ul High Negative [facility] Urine pHOrdered By: Ru bahena on 11-18-2024 pH (U) 6.0 [pH] 5.0 - 8.0 [facility] Urine sediment bacteria coun t by microscopy (number/high power field)Ordered By: Ru Marques on 11-18-2024 Bacteria LM.HPF (Urine sed) [#/Area] 0 /[HPF] None Seen [facility] Urine specific gravity measu rementOrdered By: Ru Marques on 11-18-2024 Specific gravity (U) [Rel density] 1.015 1.002-1.03 0 [facility] Urine urobilinogen measureme ntOrdered By: Ru Marques on 11-18-2024 Urobilinogen Ql (U) Normal mg/dl Normal [facility] White blood cell countOrdere d By: Ru Marques on 11-18-2024 White blood cell count 0-5 SEEN /hpf 0-5 [facility] CNPNon 11-01-2024 CNPN Telephone ([facility] VALDEMARDAVID Kincaid ([id number]) 1960 F NFR Date Time Provider Department 11/01/24 LULU SWANSON During your visit today, we recorded the following information about you: Angeline Cornell RN 11/01/2024 5:01 PM Signed Patient requesting orders for new glucometer and test strips (Of choice). Pt pays [id number]. Asking for orders to be sent to [facility]. Please call patient once orders have been sent to [facility]. [phone] ZACH Haines Christy, APRN.[employer] 11/01/2024 8:03 PM Signed Scripts send. Can please let patient know. Lulu Swanson APRN.Lavon Pickard LPN 11/02/2024 1:13 PM Signed Pt notified. She verbalized understanding. Lavon Terry LPN Allergies As of Date: 11/01/2024 Noted Allergy Reaction ZOCOR (SIMVASTATIN) 04/24/2013 17 - Myalgia Date Reviewed: 10/09/2024 Reviewed by: Vannessa Peterson MA - Fully Assessed Reason for Visit: Diabetic Supplies Request [Other] Primary Visit Diagnosis:Controlled type 2 diabetes mellitus without complication, unspecified whether intermodal dispatcher insulin use (HCC) [E11.9] Other Visit Diagnosis:Diabetes mellitus with peripheral artery disease (HCC) [E11.51] Order(s):blood sugar diagnostic (BLOOD GLUCOSE TEST) test stripTest blood sugar(s) 1 times daily. Dx: Type 2 DM - Controlled E11.9 Insulin: NoDisp: 100 stripRfl: 3 Blood-Glucose Meter monitoring kitGlucose Meter of Choice - Kit - Dx: Type 2 DM - Controlled E11.9Disp: 1 eachRfl: 0 Prescriptions as of 11/02/2024 - blood sugar diagnostic (BLOOD GLUCOSE TEST) test strip Test blood sugar(s) 1 times daily. Dx: Type 2 DM - Controlled E11.9 Insulin: No - Blood-Glucose Meter monitoring kit Glucose Meter of Choice - Kit - Dx: Type 2 DM - Controlled E11.9 - cyclobenzaprine (FLEXERIL) 5 mg tablet Take 1 tablet by mouth three times a day as needed. - zolpidem (AMBIEN) 10 mg Take 1 tablet by mouth daily at bedtime for 30 days. - atorvastatin (LIPITOR) 20 mg tablet Take 1 tablet by mouth once daily. - etodolac (LODINE) 400 mg tablet Take 1 tablet by mouth two times a day. - imipramine HCl (TOFRANIL) 50 mg tablet Take 3 tablets by mouth daily at bedtime. - pantoprazole DR (PROTONIX) 40 mg tablet Take 1 tablet by mouth once daily. - nicotine (NICODERM CQ) 21 mg/24 hr Apply 1 patch as directed every 24 hours. APPLY ONE(1) PATCH DAILY. - nicotine (NICODERM) 14 mg/24 hr Apply 1 patch as directed every 24 hours. - nicotine (NICODERM) 7 mg/24 hr Apply 1 patch as directed every 24 hours. - buPROPion SR (WELLBUTRIN SR) 150 mg 12 hr tablet Take 1 tablet by mouth two times a day. Take 1 tablet a day for 3 days before increasing to 1 tablet twice a day. - thiothixene (NAVANE) 1 mg capsule Take 2 capsules by mouth two times a day. - tiotropium bromide (SPIRIVA RESPIMAT) 2.5 mcg/actuation inhaler Inhale 2 Puffs as instructed once daily. - fluticasone-salmeterol (ADVAIR DISKUS) 250-50 mcg/dose inhaler Inhale 1 Puff as instructed two times a day. RINSE AND GARGLE MOUTH WITH WATER AFTER EACH USE. - albuterol HFA (VENTOLIN HFA) 90 mcg/actuation inhaler Inhale 2 Puffs as instructed every 4 hours as needed for wheezing/shortness of breath. - lisinopril (ZESTRIL) 5 mg tablet Take 1 tablet by mouth once daily. - metFORMIN (GLUCOPHAGE) 500 mg tablet Take 1 tablet by mouth daily with dinner. - ondansetron orally disintegrating (ZOFRAN ODT) 4 mg disintegrating tablet Take 1 tablet by mouth every 8 hours as needed for nausea/vomiting. - Lancets lancets Test blood sugar(s) 1 times daily. Dx: Type 2 DM - Controlled E11.9 Insulin: No - Melatonin 5 mg cap Take 1 capsule by mouth once daily. - Aspirin 81 mg tab Take 1 tablet by mouth once daily. Take with food. Problem List As Of Date 11/01/2024 Noted Resolved Severe major depression with psychotic features*03/11/2005 03/10/2017 Other and unspecified hyperlipidemia [E78.5] 06/30/2006 01/25/2013 Tobacco abuse [Z72.0] 12/20/2010 Hyperlipidemia with target LDL less than 100 [E*01/25/2013 Non-alcoholic fatty liver disease [K76.0] 10/13/2014 Peripheral arterial disease (HCC) [I73.9] 03/06/2015 Diabetes mellitus with peripheral artery diseas*03/06/2015 Hyponatremia [E87.1] 03/17/2015 Controlled type 2 diabetes mellitus without com*05/11/2016 Chronic insomnia [F51.04] 02/11/2017 Recurrent major depressive disorder, in full re*03/10/2017 History of rectal polypectomy [Z98.890, Z87.19] 09/23/2017 Change in bowel habit [R19.4] 09/24/2017 Abdominal pain [R10.9] 09/24/2017 03/09/2018 Mucopurulent chronic bronchitis (HCC) [J41.1] 05/05/2018 Shoulder impingement syndrome, right [M75.41] 10/20/2018 Situational anxiety [F41.8] 10/20/2018 Left sided sciatica [M54.32] 12/24/2018 Cheek mass [R22.0] 12/24/2018 Premature atrial contraction [I49.1] 03/30/2019 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 Normal [facility] Corrina 10-19-2024 CANDACEN Telephone ([facility]) DAVID ALDRICH ([id number]) 1960 F NFR Date Time Provider Department 10/19/24 REGGIE DONNELLYIN JOHN During your visit today, we recorded the following information about you: Aaroncuauhtemoctatiana Opal, [employer] WORK[employer] 10/19/2024 3:29 PM Signed Sw spoke with patient regarding [employer] patient assistance guidelines. Patient reports that she is under the income guideline for [employer]. Patient confirmed that [address] listed in chart is correct address to mail forms. Kisha will mail [employer] and consent form to sign and bring back to Kin in Pul office. Prescription will then need to be printed and attached to [employer] form when received. [employer] fax#[phone]. Allergies As of Date: 10/19/2024 Noted Allergy Reaction ZOCOR (SIMVASTATIN) 04/24/2013 17 - Myalgia Date Reviewed: 10/09/2024 Reviewed by: Vannessa Peterson MA - Fully Assessed Reason for Visit: Medication Problem [65] Prescriptions as of 10/20/2024 - atorvastatin (LIPITOR) 20 mg tablet Take 1 tablet by mouth once daily. - etodolac (LODINE) 400 mg tablet Take 1 tablet by mouth two times a day. - zolpidem (AMBIEN) 10 mg Take 1 tablet by mouth daily at bedtime for 30 days. - cyclobenzaprine (FLEXERIL) 5 mg tablet Take 1 tablet by mouth three times a day as needed. - imipramine HCl (TOFRANIL) 50 mg tablet Take 3 tablets by mouth daily at bedtime. - pantoprazole DR (PROTONIX) 40 mg tablet Take 1 tablet by mouth once daily. - nicotine (NICODERM CQ) 21 mg/24 hr Apply 1 patch as directed every 24 hours. APPLY ONE(1) PATCH DAILY. - nicotine (NICODERM) 14 mg/24 hr Apply 1 patch as directed every 24 hours. - nicotine (NICODERM) 7 mg/24 hr Apply 1 patch as directed every 24 hours. - buPROPion SR (WELLBUTRIN SR) 150 mg 12 hr tablet Take 1 tablet by mouth two times a day. Take 1 tablet a day for 3 days before increasing to 1 tablet twice a day. - thiothixene (NAVANE) 1 mg capsule Take 2 capsules by mouth two times a day. - tiotropium bromide (SPIRIVA RESPIMAT) 2.5 mcg/actuation inhaler Inhale 2 Puffs as instructed once daily. - fluticasone-salmeterol (ADVAIR DISKUS) 250-50 mcg/dose inhaler Inhale 1 Puff as instructed two times a day. RINSE AND GARGLE MOUTH WITH WATER AFTER EACH USE. - albuterol HFA (VENTOLIN HFA) 90 mcg/actuation inhaler Inhale 2 Puffs as instructed every 4 hours as needed for wheezing/shortness of breath. - lisinopril (ZESTRIL) 5 mg tablet Take 1 tablet by mouth once daily. - metFORMIN (GLUCOPHAGE) 500 mg tablet Take 1 tablet by mouth daily with dinner. - blood sugar diagnostic (BLOOD GLUCOSE TEST) test strip Test blood sugar(s) 1 times daily. Dx: Type 2 DM - Controlled E11.9 Insulin: No - ondansetron orally disintegrating (ZOFRAN ODT) 4 mg disintegrating tablet Take 1 tablet by mouth every 8 hours as needed for nausea/vomiting. - Lancets lancets Test blood sugar(s) 1 times daily. Dx: Type 2 DM - Controlled E11.9 Insulin: No - Melatonin 5 mg cap Take 1 capsule by mouth once daily. - Aspirin 81 mg tab Take 1 tablet by mouth once daily. Take with food. Problem List As Of Date 10/19/2024 Noted Resolved Severe major depression with psychotic features*03/11/2005 03/10/2017 Other and unspecified hyperlipidemia [E78.5] 06/30/2006 01/25/2013 Tobacco abuse [Z72.0] 12/20/2010 Hyperlipidemia with target LDL less than 100 [E*01/25/2013 Non-alcoholic fatty liver disease [K76.0] 10/13/2014 Peripheral arterial disease (HCC) [I73.9] 03/06/2015 Diabetes mellitus with peripheral artery diseas*03/06/2015 Hyponatremia [E87.1] 03/17/2015 Controlled type 2 diabetes mellitus without com*05/11/2016 Chronic insomnia [F51.04] 02/11/2017 Recurrent major depressive disorder, in full re*03/10/2017 History of rectal polypectomy [Z98.890, Z87.19] 09/23/2017 Change in bowel habit [R19.4] 09/24/2017 Abdominal pain [R10.9] 09/24/2017 03/09/2018 Mucopurulent chronic bronchitis (HCC) [J41.1] 05/05/2018 Shoulder impingement syndrome, right [M75.41] 10/20/2018 Situational anxiety [F41.8] 10/20/2018 Left sided sciatica [M54.32] 12/24/2018 Cheek mass [R22.0] 12/24/2018 Premature atrial contraction [I49.1] 03/30/2019 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] 04/05/2019 Chronic right shoulder pain [M25.511, G89.29] 06/26/2021 Nontraumatic complete tear of right rotator cuf*06/26/2021 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*10/19/2022 Primary hypertension [I10] 10/19/2022 Familial hypercholesterolemia [E78.01] 10/19/2022 Septic arthritis (HCC) [M00.9] 10/21/2022 Nicotine use disorder, F17.2 [F17.200] 10/22/2022 Coronary artery disease involving [place] aparicio*05/15/2024 Encounter Status:[facility][id number][facility] 1960 F NFR Date Time Provider Department 10/19/24 DANI PEARCE During your visit today, we recorded the following information about you: Donna Shaffer 10/19/2024 2:10 PM Signed Patient calling in wanting to let the pulmonology office know she has not been able to take her inhalers due to losing her insurance. She states they are too expensive for her to get without her insurance. Please review and advise. Donna Shaffer October 19, 2024 2:10 PM Clementina Bustamante LPN 10/19/2024 2:30 PM Signed Called patient re: Advair and Spiriva. Advised I would reach out to provider to see if her maintenance therapy can be changed to Trelegy. She would like to apply for [facility] PAP program with if possible. Patient agreeable to have chart forwarded to to be contacted for assistance in enrollment. GARETH Urrutia Christine M, APRN.[employer] 10/19/2024 2:51 PM Signed I agree with Mikele as an alternative. Allergies As of Date: 10/19/2024 Noted Allergy Reaction ZOCOR (SIMVASTATIN) 04/24/2013 17 - Myalgia Date Reviewed: 10/09/2024 Reviewed by: Vannessa Peterson MA - Fully Assessed Reason for Visit: Medication Problem [65] Prescriptions as of 10/19/2024 - atorvastatin (LIPITOR) 20 mg tablet Take 1 tablet by mouth once daily. - etodolac (LODINE) 400 mg tablet Take 1 tablet by mouth two times a day. - zolpidem (AMBIEN) 10 mg Take 1 tablet by mouth daily at bedtime for 30 days. - cyclobenzaprine (FLEXERIL) 5 mg tablet Take 1 tablet by mouth three times a day as needed. - imipramine HCl (TOFRANIL) 50 mg tablet Take 3 tablets by mouth daily at bedtime. - pantoprazole DR (PROTONIX) 40 mg tablet Take 1 tablet by mouth once daily. - nicotine (NICODERM CQ) 21 mg/24 hr Apply 1 patch as directed every 24 hours. APPLY ONE(1) PATCH DAILY. - nicotine (NICODERM) 14 mg/24 hr Apply 1 patch as directed every 24 hours. - nicotine (NICODERM) 7 mg/24 hr Apply 1 patch as directed every 24 hours. - buPROPion SR (WELLBUTRIN SR) 150 mg 12 hr tablet Take 1 tablet by mouth two times a day. Take 1 tablet a day for 3 days before increasing to 1 tablet twice a day. - thiothixene (NAVANE) 1 mg capsule Take 2 capsules by mouth two times a day. - tiotropium bromide (SPIRIVA RESPIMAT) 2.5 mcg/actuation inhaler Inhale 2 Puffs as instructed once daily. - fluticasone-salmeterol (ADVAIR DISKUS) 250-50 mcg/dose inhaler Inhale 1 Puff as instructed two times a day. RINSE AND GARGLE MOUTH WITH WATER AFTER EACH USE. - albuterol HFA (VENTOLIN HFA) 90 mcg/actuation inhaler Inhale 2 Puffs as instructed every 4 hours as needed for wheezing/shortness of breath. - lisinopril (ZESTRIL) 5 mg tablet Take 1 tablet by mouth once daily. - metFORMIN (GLUCOPHAGE) 500 mg tablet Take 1 tablet by mouth daily with dinner. - blood sugar diagnostic (BLOOD GLUCOSE TEST) test strip Test blood sugar(s) 1 times daily. Dx: Type 2 DM - Controlled E11.9 Insulin: No - ondansetron orally disintegrating (ZOFRAN ODT) 4 mg disintegrating tablet Take 1 tablet by mouth every 8 hours as needed for nausea/vomiting. - Lancets lancets Test blood sugar(s) 1 times daily. Dx: Type 2 DM - Controlled E11.9 Insulin: No - Melatonin 5 mg cap Take 1 capsule by mouth once daily. - Aspirin 81 mg tab Take 1 tablet by mouth once daily. Take with food. Problem List As Of Date 10/19/2024 Noted Resolved Severe major depression with psychotic features*03/11/2005 03/10/2017 Other and unspecified hyperlipidemia [E78.5] 06/30/2006 01/25/2013 Tobacco abuse [Z72.0] 12/20/2010 Hyperlipidemia with target LDL less than 100 [E*01/25/2013 Non-alcoholic fatty liver disease [K76.0] 10/13/2014 Peripheral arterial disease (HCC) [I73.9] 03/06/2015 Diabetes mellitus with peripheral artery diseas*03/06/2015 Hyponatremia [E87.1] 03/17/2015 Controlled type 2 diabetes mellitus without com*05/11/2016 Chronic insomnia [F51.04] 02/11/2017 Recurrent major depressive disorder, in full re*03/10/2017 History of rectal polypectomy [Z98.890, Z87.19] 09/23/2017 Change in bowel habit [R19.4] 09/24/2017 Abdominal pain [R10.9] 09/24/2017 03/09/2018 Mucopurulent chronic bronchitis (HCC) [J41.1] 05/05/2018 Shoulder impingement syndrome, right [M75.41] 10/20/2018 Situational anxiety [F41.8] 10/20/2018 Left sided sciatica [M54.32] 12/24/2018 Cheek mass [R22.0] 12/24/2018 Premature atrial contraction [I49.1] 03/30/2019 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 Normal [facility] CNOVon 10-09-2024 CNOV Office Visit (WOUCA) DAVID ALDRICH ([id number]) 1960 F NFR Date Time Provider Department 10/09/24 1:45 PM MARK AMADOR During your visit today, we recorded the following information about you: Temperature Pulse Respiration Blood pressure 97.8 degrees 68/minute 16/minute 124/70 Weight 71.5 kg Mark Amador APRN.[employer] 10/09/2024 2:18 PM Signed [facility] Subjective David Kincaid Valdemar is a 63 year old female. Patient presents with: Pain (Shoulder Pain) Neck Pain: All right side HPI The patient is a 63-year-old female with a history of diabetes, presenting for right shoulder pain. Right Shoulder Pain: - Onset unknown; denies known trauma or injury. - Pain exacerbated by movement; no relief from Advil. - Describes a palpable "lump" in the shoulder area. - Pain radiates up the back of the neck; denies pain in the spine or anterior shoulder. - Experiences muscle spasms. - Able to raise the shoulder without pain. - Prescription for Etodolac called in by Dr. Hall, but not yet picked up. - No spinal tenderness in the spine. Diabetes: - Monitors blood glucose levels regularly. - Recent follow-up with Dr. Dani Bone; reports satisfactory management. Review of Systems Musculoskeletal: (+) shoulder pain, (+) neck pain, (+) muscle spasm, (+) shoulder mass sensation, (-) spinal pain, (-) anterior shoulder pain PAST MEDICAL HISTORY Diagnosis Date Arrhythmia Bradycardia COPD, mild (HCC) Diabetes mellitus with peripheral artery disease (HCC) 03/06/2015 H/O percutaneous left heart catheterization 05/2012 negative--[facility] History of rectal polypectomy 09/23/201712/2014: hyperplastic polyp Hyperlipidemia LDL goal < 100 01/25/2013 Hypertension Left sided sciatica Major depressive disorder, recurrent episode, unspecified Non-alcoholic fatty liver disease 10/13/2014 Other and unspecified hyperlipidemia Other secondary osteoarthritis of right knee Peripheral arterial disease 03/06/2015 Pulmonary emphysema, unspecified emphysema type (HCC) Recurrent major depressive disorder, in full remission 03/10/2017 Snoring Tobacco use current Trigger point of left shoulder region Type 2 diabetes mellitus with stage 3 chronic kidney disease, without long-term current use of insulin (HCC) 05/11/2016 PAST SURGICAL HISTORY Procedure Laterality Date APPENDECTOMY 02/10/1970 ARTHROSCOPY KNEE DIAGNOSTIC W/WO SYNOVIAL BX SPX 10/19/2022 rt knee artroscopic I AND D, synovectomy CAROTID ENDARTERECTOMY 06/16/2012 Right carotid COLONOSCOPY 12/12/2014 Repeat 2018 ALLERGIES Zocor [Simvastatin] MEDICATIONS atorvastatin (LIPITOR) 20 mg tablet Take 1 tablet by mouth once daily. etodolac (LODINE) 400 mg tablet Take 1 tablet by mouth two times a day. zolpidem (AMBIEN) 10 mg Take 1 tablet by mouth daily at bedtime for 30 days. cyclobenzaprine (FLEXERIL) 5 mg tablet Take 1 tablet by mouth three times a day as needed. imipramine HCl (TOFRANIL) 50 mg tablet Take 3 tablets by mouth daily at bedtime. pantoprazole DR (PROTONIX) 40 mg tablet Take 1 tablet by mouth once daily. nicotine (NICODERM CQ) 21 mg/24 hr Apply 1 patch as directed every 24 hours. APPLY ONE(1) PATCH DAILY. nicotine (NICODERM) 14 mg/24 hr Apply 1 patch as directed every 24 hours. nicotine (NICODERM) 7 mg/24 hr Apply 1 patch as directed every 24 hours. buPROPion SR (WELLBUTRIN SR) 150 mg 12 hr tablet Take 1 tablet by mouth two times a day. Take 1 tablet a day for 3 days before increasing to 1 tablet twice a day. thiothixene (NAVANE) 1 mg capsule Take 2 capsules by mouth two times a day. tiotropium bromide (SPIRIVA RESPIMAT) 2.5 mcg/actuation inhaler Inhale 2 Puffs as instructed once daily. fluticasone-salmeterol (ADVAIR DISKUS) 250-50 mcg/dose inhaler Inhale 1 Puff as instructed two times a day. RINSE AND GARGLE MOUTH WITH WATER AFTER EACH USE. albuterol HFA (VENTOLIN HFA) 90 mcg/actuation inhaler Inhale 2 Puffs as instructed every 4 hours as needed for wheezing/shortness of breath. lisinopril (ZESTRIL) 5 mg tablet Take 1 tablet by mouth once daily. metFORMIN (GLUCOPHAGE) 500 mg tablet Take 1 tablet by mouth daily with dinner. blood sugar diagnostic (BLOOD GLUCOSE TEST) test strip Test blood sugar(s) 1 times daily. Dx: Type 2 DM - Controlled E11.9 Insulin: No ondansetron orally disintegrating (ZOFRAN ODT) 4 mg disintegrating tablet Take 1 tablet by mouth every 8 hours as needed for nausea/vomiting. Lancets lancets Test blood sugar(s) 1 times daily. Dx: Type 2 DM - Controlled E11.9 Insulin: No Melatonin 5 mg cap Take 1 capsule by mouth once daily. Aspirin 81 mg tab Take 1 tablet by mouth once daily. Take with food. FAMILY HISTORY Problem Relation Age of Onset Heart Mother Diabetes Father other (Parkinson's disease [Other]) Brother SOCIAL HISTORY[1] Objective BP 124/70 Pulse 68 Temp (more content not included)... Normal [facility] CNOVon 10-01-2024 CNOV Office Visit (FAMPWS ) DAVID ALDRICH ([id number]) 1960 F NFR Date Time Provider Department 10/01/24 2:00 PM LULU SWANSON During your visit today, we recorded the following information about you: Pulse Respiration Blood pressure Weight 73/minute 16/minute 117/72 70.7 kg Lulu Swanson APRN.[employer] 10/01/2024 1:54 PM Addendum Tetanus shot today. Schedule nurse visit for shingles vaccine. Continue same medication. Take the antibiotic for dental infection and see dentist. Schedule with general surgery for colonoscopy. Recheck in 6 months. Lulu Swanson APRN.CNP 10/01/2024 3:48 PM Signed This is a 63 year old female who presents today with: David Aldrich is a 63-year-old female with a history of COPD, DM, and HTN, presenting for a follow-up visit. HISTORY OF PRESENT ILLNESS: COPD: - Using Advair and Spiriva inhalers; reports they are effective. - Uses albuterol inhaler frequently at work due to increased activity; minimal use at home. DM: - Taking metformin. - Has not been checking blood glucose levels at home. - Denies polyuria, polydipsia, paresthesia, or hypoglycemic symptoms. Due for labs. HTN: - Taking lisinopril. No chest pain/sob. Dental Issues: - Reports two broken teeth causing intermittent pain. - Requests penicillin or amoxicillin for relief. 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 Insomnia: - Ambien effective for sleep; reports insomnia if not taken. - no side effects to medication. Up-to-date w/ med agreement and tox screen. Carotid stenosis Recent ultrasound -- no change from previous. PAST MEDICAL HISTORY: PAST MEDICAL HISTORY Diagnosis Date Arrhythmia Bradycardia COPD, mild (HCC) Diabetes mellitus with peripheral artery disease (HCC) 03/06/2015 H/O percutaneous left heart catheterization 05/2012 negative--[facility] History of rectal polypectomy 09/23/201712/2014: hyperplastic polyp Hyperlipidemia LDL goal < 100 01/25/2013 Hypertension Left sided sciatica Major depressive disorder, recurrent episode, unspecified Non-alcoholic fatty liver disease 10/13/2014 Other and unspecified hyperlipidemia Other secondary osteoarthritis of right knee Peripheral arterial disease 03/06/2015 Pulmonary emphysema, unspecified emphysema type (HCC) Recurrent major depressive disorder, in full remission 03/10/2017 Snoring Tobacco use current Trigger point of left shoulder region Type 2 diabetes mellitus with stage 3 chronic kidney disease, without long-term current use of insulin (HCC) 05/11/2016 PAST SURGICAL HISTORY Procedure Laterality Date APPENDECTOMY 02/10/1970 ARTHROSCOPY KNEE DIAGNOSTIC W/WO SYNOVIAL BX SPX 10/19/2022 rt knee artroscopic I AND D, synovectomy CAROTID ENDARTERECTOMY 06/16/2012 Right carotid COLONOSCOPY 12/12/2014 Repeat 2018 ALLERGIES Zocor [Simvastatin] MEDICATIONS Current Outpatient Medications Medication Sig penicillin V potassium 500 mg tablet Take 1 tablet by mouth four times daily for 7 days. zolpidem (AMBIEN) 10 mg Take 1 tablet by mouth daily at bedtime for 30 days. cyclobenzaprine (FLEXERIL) 5 mg tablet Take 1 tablet by mouth three times a day as needed. imipramine HCl (TOFRANIL) 50 mg tablet Take 3 tablets by mouth daily at bedtime. etodolac (LODINE) 400 mg tablet Take 1 tablet by mouth two times a day. pantoprazole DR (PROTONIX) 40 mg tablet Take 1 tablet by mouth once daily. nicotine (NICODERM CQ) 21 mg/24 hr Apply 1 patch as directed every 24 hours. APPLY ONE(1) PATCH DAILY. nicotine (NICODERM) 14 mg/24 hr Apply 1 patch as directed every 24 hours. nicotine (NICODERM) 7 mg/24 hr Apply 1 patch as directed every 24 hours. buPROPion SR (WELLBUTRIN SR) 150 mg 12 hr tablet Take 1 tablet by mouth two times a day. Take 1 tablet a day for 3 days before increasing to 1 tablet twice a day. thiothixene (NAVANE) 1 mg capsule Take 2 capsules by mouth two times a day. tiotropium bromide (SPIRIVA RESPIMAT) 2.5 mcg/actuation inhaler Inhale 2 Puffs as instructed once daily. fluticasone-salmeterol (ADVAIR DISKUS) 250-50 mcg/dose inhaler Inhale 1 Puff as instructed two times a day. RINSE AND GARGLE MOUTH WITH WATER AFTER EACH USE. albuterol HFA (VENTOLIN HFA) 90 mcg/actuation inhaler Inhale 2 Puffs as instructed every 4 hours as needed for wheezing/shortness of breath. lisinopril (ZESTRIL) 5 mg tablet Take 1 tablet by mouth once daily. metFORMIN (GLUCOPHAGE) 500 mg tablet Take 1 tablet by mouth daily with dinner. atorvastatin (LIPITOR) 20 mg tablet Take 1 tablet by mouth once daily. blood sugar diagnostic (BLOOD GLUCOSE TEST) test strip Test blood sugar(s) 1 times daily. Dx: Type 2 DM - Controlled E11.9 Insulin: No ibuprofen (MOTRIN) 800 mg tablet Take 1 tablet by mouth every 8 hours as needed for pain. Take with food. ondansetron orally disintegrating (ZOFRAN ODT) 4 mg disintegrating t (more content not included)... Normal [facility] CNOVon 09-24-2024 CNOV Office Visit (FAMPWS ) DAVID ALDRICH ([id number]) 1960 F NFR Date Time Provider Department 09/24/24 11:00 AM LULU SWANSON FAMPWS During your visit today, we recorded the following information about you: Pulse Respiration Blood pressure Weight 99/minute 16/minute 110/72 70.3 kg Lavon Terry LPN 09/24/2024 11:31 AM Signed Pt was feeling ill and requested to reschedule. Pt left without being seen by provider. Lavon Terry LPN Referring Provider: LULU SWANSON [[id number]] Allergies As of Date: 09/24/2024 Noted Allergy Reaction ZOCOR (SIMVASTATIN) 04/24/2013 17 - Myalgia Date Reviewed: 09/24/2024 Reviewed by: Lavon Terry LPN - Fully Assessed Reason for Visit: Recheck [92] Cmt: Medication follow up Patient Left Without Being Seen [2006] Visit Diagnosis:Hyperlipidemia, unspecified hyperlipidemia type [E78.5] Prescriptions as of 09/24/2024 - zolpidem (AMBIEN) 10 mg Take 1 tablet by mouth daily at bedtime for 30 days. - cyclobenzaprine (FLEXERIL) 5 mg tablet Take 1 tablet by mouth three times a day as needed. - imipramine HCl (TOFRANIL) 50 mg tablet Take 3 tablets by mouth daily at bedtime. - etodolac (LODINE) 400 mg tablet Take 1 tablet by mouth two times a day. - pantoprazole DR (PROTONIX) 40 mg tablet Take 1 tablet by mouth once daily. - nicotine (NICODERM CQ) 21 mg/24 hr Apply 1 patch as directed every 24 hours. APPLY ONE(1) PATCH DAILY. - nicotine (NICODERM) 14 mg/24 hr Apply 1 patch as directed every 24 hours. - nicotine (NICODERM) 7 mg/24 hr Apply 1 patch as directed every 24 hours. - buPROPion SR (WELLBUTRIN SR) 150 mg 12 hr tablet Take 1 tablet by mouth two times a day. Take 1 tablet a day for 3 days before increasing to 1 tablet twice a day. - thiothixene (NAVANE) 1 mg capsule Take 2 capsules by mouth two times a day. - tiotropium bromide (SPIRIVA RESPIMAT) 2.5 mcg/actuation inhaler Inhale 2 Puffs as instructed once daily. - fluticasone-salmeterol (ADVAIR DISKUS) 250-50 mcg/dose inhaler Inhale 1 Puff as instructed two times a day. RINSE AND GARGLE MOUTH WITH WATER AFTER EACH USE. - albuterol HFA (VENTOLIN HFA) 90 mcg/actuation inhaler Inhale 2 Puffs as instructed every 4 hours as needed for wheezing/shortness of breath. - lisinopril (ZESTRIL) 5 mg tablet Take 1 tablet by mouth once daily. - metFORMIN (GLUCOPHAGE) 500 mg tablet Take 1 tablet by mouth daily with dinner. - atorvastatin (LIPITOR) 20 mg tablet Take 1 tablet by mouth once daily. - blood sugar diagnostic (BLOOD GLUCOSE TEST) test strip Test blood sugar(s) 1 times daily. Dx: Type 2 DM - Controlled E11.9 Insulin: No - ibuprofen (MOTRIN) 800 mg tablet Take 1 tablet by mouth every 8 hours as needed for pain. Take with food. - ondansetron orally disintegrating (ZOFRAN ODT) 4 mg disintegrating tablet Take 1 tablet by mouth every 8 hours as needed for nausea/vomiting. - Lancets lancets Test blood sugar(s) 1 times daily. Dx: Type 2 DM - Controlled E11.9 Insulin: No - polyethylene glycol 3350 (MIRALAX, GLYCOLAX) 17 gram/dose powder Use as directed for Miralax / Gatorade Bowel Prep Kit - Melatonin 5 mg cap Take 1 capsule by mouth once daily. - Aspirin 81 mg tab Take 1 tablet by mouth once daily. Take with food. Problem List As Of Date 09/24/2024 Noted Resolved Severe major depression with psychotic features*03/11/2005 03/10/2017 Other and unspecified hyperlipidemia [E78.5] 06/30/2006 01/25/2013 Tobacco abuse [Z72.0] 12/20/2010 Hyperlipidemia with target LDL less than 100 [E*01/25/2013 Non-alcoholic fatty liver disease [K76.0] 10/13/2014 Peripheral arterial disease (HCC) [I73.9] 03/06/2015 Diabetes mellitus with peripheral artery diseas*03/06/2015 Hyponatremia [E87.1] 03/17/2015 Controlled type 2 diabetes mellitus without com*05/11/2016 Chronic insomnia [F51.04] 02/11/2017 Recurrent major depressive disorder, in full re*03/10/2017 History of rectal polypectomy [Z98.890, Z87.19] 09/23/2017 Change in bowel habit [R19.4] 09/24/2017 Abdominal pain [R10.9] 09/24/2017 03/09/2018 Mucopurulent chronic bronchitis (HCC) [J41.1] 05/05/2018 Shoulder impingement syndrome, right [M75.41] 10/20/2018 Situational anxiety [F41.8] 10/20/2018 Left sided sciatica [M54.32] 12/24/2018 Cheek mass [R22.0] 12/24/2018 Premature atrial contraction [I49.1] 03/30/2019 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] 04/05/2019 Chronic right shoulder pain [M25.511, G89.29] 06/26/2021 Nontraumatic complete tear of right rotator cuf*06/26/2021 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*10/19/2022 Primary hypertension [I10] 10/19/2022 Familial hypercholesterolemia [E78.01] 10/19/2022 Septic arthritis (HCC) [M00.9] 10/21/2022 Nicotine use disorder, F17.2 [F17.200] 10/22/2022 Coronary artery disease involving [place] aparicio*05/15/2024 Encounter Status:Closed by LAVON TERRY on 09/24/24 Normal [facility] US CAROTID ARTERIES [facility]I [facility]AS LABon 09-21-2024 US CAROTID ARTERIES [facility] LAB Non-Invasive Vascular Laboratory [facility] Carotid Duplex Bilateral/Complete Date of service/time: 09/21/2024 10:49:36 AM Name: MRS. DAVID ALDRICH Date of : 1960 Age: 63 years Gender: F Clinical Indication Follow-up study on a patient with known carotid disease and History of Right CEA 06/16/2012. TECHNIQUE -------- A carotid duplex ultrasound examination was performed, including grayscale imaging and color Doppler and spectral Doppler examination of the below mentioned arteries. FINDINGS -------- RIGHT SIDE Common carotid artery: Origin: PSV: 143 cm/s. EDV: 23 cm/s. Proximal: PSV: 89 cm/s. EDV: 19 cm/s. Mid: PSV: 83 cm/s. EDV: 25 cm/s. Distal: PSV: 67 cm/s. EDV: 22 cm/s. Mild heterogeneous plaque at distal. Internal carotid artery: Origin: PSV: 83 cm/s. EDV: 20 cm/s. Proximal: PSV: 123 cm/s. EDV: 32 cm/s. Mid: PSV: 83 cm/s. EDV: 23 cm/s. Distal: PSV: 86 cm/s. EDV: 27 cm/s. Mild heterogeneous plaque from origin to proximal. ICA/CCA Ratio: 1.8 External carotid artery: Proximal: PSV: 168 cm/s. EDV: 21 cm/s. Mild heterogeneous plaque at origin. Subclavian artery: Proximal: PSV: 160 cm/s. EDV: 0 cm/s. Mild/moderate heterogeneous plaque from origin to proximal. Innominate artery: PSV: 180 cm/s. EDV: 0 cm/s. Vertebral artery: PSV: 51 cm/s. EDV: 18 cm/s. LEFT SIDE Common carotid artery: Proximal: PSV: 120 cm/s. EDV: 28 cm/s. Mid: PSV: 133 cm/s. EDV: 32 cm/s. Distal: PSV: 126 cm/s. EDV: 31 cm/s. Mild heterogeneous plaque at distal. Internal carotid artery: Origin: PSV: 129 cm/s. EDV: 33 cm/s. Proximal: PSV: 71 cm/s. EDV: 23 cm/s. Mid: PSV: 88 cm/s. EDV: 27 cm/s. Distal: PSV: 78 cm/s. EDV: 26 cm/s. Mild heterogeneous plaque at proximal. ICA/CCA Ratio: 1.0 External carotid artery: Proximal: PSV: 100 cm/s. EDV: 16 cm/s. Subclavian artery: Proximal: PSV: 209 cm/s. EDV: 0 cm/s. Mild/moderate heterogeneous plaque from origin to proximal. Vertebral artery: PSV: 36 cm/s. EDV: 9 cm/s. IMPRESSION Please note: the new carotid interpretation criteria are used as recommended by [employer]. When compared with the prior study, of 07/24/2020 no significant change is noted on the right side and no significant change is noted on the left side. RIGHT SIDE Common carotid artery: Patent. Endarterectomy patch at distal : 1.15cm. Internal carotid artery: <50% stenosis consistent with mild carotid artery disease. Endarterectomy patch at proximal . External carotid artery: Patent. Vertebral artery: Patent and antegrade flow noted. Innominate artery: Patent. Subclavian artery: Plaque visualized without evidence of hemodynamically significant stenosis. LEFT SIDE Common carotid artery: Plaque visualized without evidence of hemodynamically significant stenosis. Internal carotid artery: <50% stenosis consistent with mild carotid artery disease. Tortuous vessel at proximal . External carotid artery: Patent. Vertebral artery: Patent and antegrade flow noted. Subclavian artery: Plaque visualized without evidence of hemodynamically significant stenosis. Technologist: Cris Bolton T Ordering physician: LULU SWANSON Interpreting physician: Kory Garcia DO Final CC [facility] Image : [id number] See Link below for Image Normal [facility] CNOVon 08-24-2024 CNOV Office Visit (FRFHWS ) DAVID ALDRICH ([id number]) 1960 F NFR Date Time Provider Department 08/24/24 10:00 AM GABE HALL V FRFHWS During your visit today, we recorded the following information about you: Dina Diaz MA 08/24/2024 10:28 AM Signed AMB ROOMING INTAKE FLOWSHEET DATA Pain Pain Level: 10 Pain Location: Shoulder-Left Description: Sharp Duration Amount of Time: 2 Duration Units: Days Frequency: Intermittent Intervention/Comfort measure: Other: See comment Gabe Hall V, DO 08/24/2024 10:28 AM Signed Subjective The patient is a 63-year-old female with a history of diabetes mellitus, presenting for left shoulder and neck pain, as well as right knee pain. Left Shoulder and Neck Pain: - Onset a few weeks ago, initially presenting as pain across the left shoulder and neck. - Pain began radiating up behind the neck on the left side. - Aggravated by lifting a watermelon; reports a sensation of "something just went" in the neck. - Describes a "dent" or swelling in the left shoulder and neck area, which she presses on for relief. - Pain exacerbated by reaching down and coming up; sometimes painful when turning the head. - Denies taking any medication for the pain. - Works at a [employer]. Right Knee Pain: - Concerned about recurrence of previous infection. - Pain localized around the knee, under the kneecap. - Denies heat or swelling in the knee. - No pain with rotation of the knee. - History of arthritis in the knee, particularly under the kneecap. Neck: (+) left-sided neck pain Musculoskeletal: (+) left shoulder pain, (+) right shoulder weakness, (+) knee pain, (-) knee swelling, (-) knee warmth Objective Last menstrual period 11/13/2009. General: No acute distress. MSK/Ext: Left shoulder and neck area with palpable knot in trapezius muscle; right shoulder weaker than left; knee without erythema or significant swelling, pain localized around patella, no pain with rotation. Labs: - Hemoglobin A1c: 6.1 Imaging: - Knee X-ray: Advanced patellofemoral arthritis with [id number] changes under the patella and a large osteophyte. Assessment AND Plan 1. Trigger point of left shoulder region (M25.512) - Pain localized to the left trapezius muscle, exacerbated by movement and palpation. - Administered trigger point injection with lidocaine and bupivacaine to alleviate muscle spasm and pain. - Provided patient with stretching exercises to perform daily to help loosen the muscle. - Patient can resume work tomorrow. 2. Other secondary osteoarthritis of right knee (M17.5) - Chronic pain due to severe osteoarthritis, particularly under the patella with wdui-yo-yjol contact and presence of a large osteophyte. - Recent X-ray shows no significant progression of arthritis. - No signs of infection; knee is not hot or swollen. - Prescribed etodolac 400 mg orally twice daily with food to manage inflammation and pain. - Advised to discontinue etodolac if gastrointestinal discomfort occurs. Trigger Point Injection: left upper trapezius 08/24/2024 10:26 AM The procedure site was prepped in the usual sterile fashion. Indications: pain Details: 25 G needle Medications: 2 mL lidocaine (PF) 10 mg/mL (1 %); 2 mL BUPivacaine (PF) 0.5 % (5 mg/mL) Outcome: tolerated well, no immediate complications Post-injection instructions were reviewed with the patient and the patient voiced understanding of these instructions. Informed Consent Consent Obtained: Verbal [place] Protocol SIGN IN TIME OUT Recording using [employer] software for draft documentation of the visit was discussed with the patient/authorized personal service representative; all questions welcomed and answered. Patient/authorized personal service representative agreed to proceed Referring Provider: SELF [[id number]] Allergies As of Date: 08/24/2024 Noted Allergy Reaction ZOCOR (SIMVASTATIN) 04/24/2013 17 - Myalgia Date Reviewed: 08/24/2024 Reviewed by: Dina Diaz MA - Fully Assessed Reason for Visit: Right Knee Pain [1209] Primary Visit Diagnosis:Trigger point of left shoulder region [M25.512] Other Visit Diagnosis:Other secondary osteoarthritis of right knee [M17.5] Order(s):etodolac (LODINE) 400 mg tabletTake 1 tablet by mouth two times a day.Disp: 60 tabletRfl: 0 Trigger Point Injection: left upper trapezius [[id number]] Order #: [id number] [] BUPivacaine (PF) 0.5 % (5 mg/mL) 2 mL injectionDisp: Rfl: [] lidocaine (PF) 10 mg/mL (1 %) 2 mL injection (XYLOCAINE)Disp: Rfl: Prescriptions as of 08/24/2024 - etodolac (LODINE) 400 mg tablet Take 1 tablet by mouth two times a day. - zolpidem (AMBIEN) 10 mg Take 1 tablet by mouth daily at bedtime for 30 days. - cyclobenzaprine (FLEXERIL) 5 mg tablet Take 1 tablet by mouth three times a day as needed. - pantoprazole DR (PROTONIX) 40 mg tablet Take 1 (more content not included)... Normal [facility] Trigger Point Injection: lef t upper trapeziuson 08-24-2024 Gabe Hall V, DO 08/24/2024 10:28 AM Trigger Point Injection: left upper trapezius 08/24/2024 10:26 AM The procedure site was prepped in the usual sterile fashion. Indications: pain Details: 25 G needle Medications: 2 mL lidocaine (PF) 10 mg/mL (1 %); 2 mL BUPivacaine (PF) 0.5 % (5 mg/mL) Outcome: tolerated well, no immediate complications Post-injection instructions were reviewed with the patient and the patient voiced understanding of these instructions. Informed Consent Consent Obtained: Verbal [place] Protocol SIGN IN TIME OUT [facility] XR KNEE 4V AP/PA BOTH+LAT/ME R RTon 08-24-2024 XR KNEE 4V AP/PA BOTH+LAT/ALIREZA RT * * *Final Report* * * DATE OF EXAM: Aug 24 2024 10:04AM [id number] [id number] - XR KNEE 4V AP/PA BOTH+LAT/ALIREZA RT / PROCEDURE REASON: Right knee pain, unspecified chronicity * * * * Physician Interpretation * * * * EXAMINATION / TECHNIQUE: XR KNEE 4V AP/PA BOTH+LAT/ALIREZA RT HISTORY: PT STATES INFECTION IN RIGHT KNEE 2 YEARS AGO HAVING PAIN AGAIN Right knee pain, unspecified chronicity COMPARISON: 10/16/2022. RESULT: No acute fracture or dislocation. Severe patellofemoral osteoarthritis. Small joint effusion. IMPRESSION: Degenerative changes as described. Ug Designer: [facility] Transcribe Date/Time: Aug 30 2024 9:25P Dictated by : DOMENIC RITTER MD This examination was interpreted and the report reviewed and electronically signed by: DOMENIC RITTER MD on Aug 30 2024 9:26PM EST [id number] Normal [facility] CNCOon 07-30-2024 CNCO Letter Text Normal [facility] CNPNon 06-29-2024 CNPN Telephone [facility] DAVID ALDRICH ([id number]) 1960 F NFR Date Time Provider Department 06/29/24 LULU SWANSON [facility] During your visit today, we recorded the following information about you: Aarti Reyes 06/29/2024 9:33 AM Signed Patient calling today stating that medication zolpidem (AMBIEN) 10 mg should be refilled on 06/30. Patient asking to have this corrected and sent to pharmacy. Patient asking to have corrected and sent this morning because she is coming to [place] this afternoon. Dipesh Borjas MA 06/29/2024 9:44 AM Signed Rx was filled on 05/31, nx rx pended to be sent YNES Hall Jennifer M 06/29/2024 12:25 PM Signed Patient is asking that it be sent in today, please. Sneha Ryan 06/29/2024 4:23 PM Signed Patient is calling back to check the status of this request please Lulu Swanson APRN.CANDACE 06/29/2024 8:40 PM Signed Script sent. Can please let patient know and close encounter. Lulu Swanson APRN.Lisa Lobo RN 06/30/2024 8:19 AM Signed Pt called and is notified of providers message. Pt voices understanding. Lisa Talamantes RN Allergies As of Date: 06/29/2024 Noted Allergy Reaction ZOCOR (SIMVASTATIN) 04/24/2013 17 - Myalgia Date Reviewed: 06/22/2024 Reviewed by: Dani Pearce APRN.[employer] - Fully Assessed Reason for Visit: Medication Problem [65] Visit Diagnosis:Chronic insomnia [F51.04] Order(s):zolpidem (AMBIEN) 10 mgTake 1 tablet by mouth daily at bedtime for 30 days. Patient should start on June 30, 2024.Disp: 30 tabletRfl: 0 Prescriptions as of 06/30/2024 - zolpidem (AMBIEN) 10 mg Take 1 tablet by mouth daily at bedtime for 30 days. Patient should start on June 30, 2024. - pantoprazole DR (PROTONIX) 40 mg tablet Take 1 tablet by mouth once daily. - nicotine (NICODERM CQ) 21 mg/24 hr Apply 1 patch as directed every 24 hours. APPLY ONE(1) PATCH DAILY. - nicotine (NICODERM) 14 mg/24 hr Apply 1 patch as directed every 24 hours. - nicotine (NICODERM) 7 mg/24 hr Apply 1 patch as directed every 24 hours. - buPROPion SR (WELLBUTRIN SR) 150 mg 12 hr tablet Take 1 tablet by mouth two times a day. Take 1 tablet a day for 3 days before increasing to 1 tablet twice a day. - cyclobenzaprine (FLEXERIL) 5 mg tablet Take 1 tablet by mouth three times a day as needed. - imipramine HCl (TOFRANIL) 50 mg tablet Take 3 tablets by mouth daily at bedtime. - thiothixene (NAVANE) 1 mg capsule Take 2 capsules by mouth two times a day. - tiotropium bromide (SPIRIVA RESPIMAT) 2.5 mcg/actuation inhaler Inhale 2 Puffs as instructed once daily. - fluticasone-salmeterol (ADVAIR DISKUS) 250-50 mcg/dose inhaler Inhale 1 Puff as instructed two times a day. RINSE AND GARGLE MOUTH WITH WATER AFTER EACH USE. - albuterol HFA (VENTOLIN HFA) 90 mcg/actuation inhaler Inhale 2 Puffs as instructed every 4 hours as needed for wheezing/shortness of breath. - lisinopril (ZESTRIL) 5 mg tablet Take 1 tablet by mouth once daily. - metFORMIN (GLUCOPHAGE) 500 mg tablet Take 1 tablet by mouth daily with dinner. - atorvastatin (LIPITOR) 20 mg tablet Take 1 tablet by mouth once daily. - blood sugar diagnostic (BLOOD GLUCOSE TEST) test strip Test blood sugar(s) 1 times daily. Dx: Type 2 DM - Controlled E11.9 Insulin: No - ibuprofen (MOTRIN) 800 mg tablet Take 1 tablet by mouth every 8 hours as needed for pain. Take with food. - ondansetron orally disintegrating (ZOFRAN ODT) 4 mg disintegrating tablet Take 1 tablet by mouth every 8 hours as needed for nausea/vomiting. - Lancets lancets Test blood sugar(s) 1 times daily. Dx: Type 2 DM - Controlled E11.9 Insulin: No - polyethylene glycol 3350 (MIRALAX, GLYCOLAX) 17 gram/dose powder Use as directed for Miralax / Gatorade Bowel Prep Kit - Melatonin 5 mg cap Take 1 capsule by mouth once daily. - Aspirin 81 mg tab Take 1 tablet by mouth once daily. Take with food. Problem List As Of Date 06/29/2024 Noted Resolved Severe major depression with psychotic features*03/11/2005 03/10/2017 Other and unspecified hyperlipidemia [E78.5] 06/30/2006 01/25/2013 Tobacco abuse [Z72.0] 12/20/2010 Hyperlipidemia with target LDL less than 100 [E*01/25/2013 Non-alcoholic fatty liver disease [K76.0] 10/13/2014 Peripheral arterial disease (HCC) [I73.9] 03/06/2015 Diabetes mellitus with peripheral artery diseas*03/06/2015 Hyponatremia [E87.1] 03/17/2015 Controlled type 2 diabetes mellitus without com*05/11/2016 Chronic insomnia [F51.04] 02/11/2017 Recurrent major depressive disorder, in full re*03/10/2017 History of rectal polypectomy [Z98.890, Z87.19] 09/23/2017 Change in bowel habit [R19.4] 09/24/2017 Abdominal pain [R10.9] 09/24/2017 03/09/2018 Mucopurulent chronic bronchitis (HCC) [J41.1] 05/05/2018 Shoulder impingement syndrome, right [M75.41] 10/20/2018 Situational anxiety [F41.8] (more content not included)... Normal [facility] CNCOon 06-28-2024 CNCO Letter Text Normal [facility] CNOVon 06-22-2024 CNOV Office Visit (PULMWS ) DAVID ALDRICH ([id number]) 1960 F NFR Date Time Provider Department 06/22/24 11:00 AM DANI PEARCE PULMWS During your visit today, we recorded the following information about you: Pulse Respiration Blood pressure Weight 71/minute 15/minute 118/70 70.3 kg Dani Pearce APRN.CNP 06/22/2024 11:50 AM Signed Pulmonary Medicine Patients name: David Aldrich PCP: Lulu Swanson APRN.CNP CC: follow-up COPD HPI: David Aldrich is a 63 year old female current 50 pack year smoker with PMH significant for DM, HLD, HTN, hepatic steatosis, and Depression. New to Dr. Leong 01/2024 for COPD. Symptoms include dyspnea with exertion, daily productive cough and wheezing. Pulmonary function test show mild obstruction, mainly small airways obstruction that improves with bronchodilator, significant air trapping and hyperinflation, reduction in diffusing capacity. Her lung cancer screening CT shows some mild upper lobe emphysema and bronchial wall thickening. Current inhaled therapy with Advair 250, Spiriva and PRN Albuterol. She presents today for follow-up. Following her last visit, she had a nocturnal oximetry without need for supplemental O2. Overall, she has done well. Continues to have SOB with exertion. Oximetry with ambulation today shows stable SPO2 with exertion. Today, patient reports continued cough, not typically productive. No hemoptysis. Occasional wheezing. No Chest tightness or nocturnal symptoms. No dyspnea at rest. Exertional dyspnea with stairs, carrying groceries and notes while at work. No recent hospitalizations or ED visits or upper respiratory infections. Albuterol use is at least 4 days a week d/t SOB. She is interested in smoking cessation and wants to quit before her lung disease worsens. She started smoking at 15 years old and has historically smoked 1/2 ppd. Has increased the amount of cigarettes she smokes as she has gotten older and now averages 1 ppd. Starts smoking first thing in the morning. Has not tried smoking before but was previously prescribed Wellbutrin and NRT patches and did not use. Agreeable to those options again today. PAST MEDICAL HISTORY Diagnosis Date Arrhythmia Bradycardia Diabetes mellitus with peripheral artery disease (HCC) 03/06/2015 H/O percutaneous left heart catheterization 05/2012 negative--[facility] History of rectal polypectomy 09/23/201712/2014: hyperplastic polyp Hyperlipidemia LDL goal < 100 01/25/2013 Hypertension Major depressive disorder, recurrent episode, unspecified Non-alcoholic fatty liver disease 10/13/2014 Other and unspecified hyperlipidemia Peripheral arterial disease 03/06/2015 Recurrent major depressive disorder, in full remission 03/10/2017 Snoring Type 2 diabetes mellitus with stage 3 chronic kidney disease, without long-term current use of insulin (HCC) 05/11/2016 Allergies: Zocor [Simvastatin] Myalgia Medication List Accurate as of June 22, 2024 7:39 AM. If you have any questions, ask your nurse or doctor. CONTINUE taking these medications albuterol HFA 90 mcg/actuation inhaler Commonly known as: VENTOLIN HFA Inhale 2 Puffs as instructed every 4 hours as needed for wheezing/shortness of breath. Aspirin 81 mg Tab Take 1 tablet by mouth once daily. Take with food. atorvastatin 20 mg tablet Commonly known as: LIPITOR Take 1 tablet by mouth once daily. blood sugar diagnostic test strip Commonly known as: BLOOD GLUCOSE TEST Test blood sugar(s) 1 times daily. Dx: Type 2 DM - Controlled E11.9 Insulin: No cyclobenzaprine 5 mg tablet Commonly known as: FLEXERIL Take 1 tablet by mouth three times a day as needed. fluticasone-salmeterol 250-50 mcg/dose inhaler Commonly known as: ADVAIR DISKUS Inhale 1 Puff as instructed two times a day. RINSE AND GARGLE MOUTH WITH WATER AFTER EACH USE. ibuprofen 800 mg tablet Commonly known as: MOTRIN Take 1 tablet by mouth every 8 hours as needed for pain. Take with food. imipramine HCl 50 mg tablet Commonly known as: TOFRANIL Take 3 tablets by mouth daily at bedtime. Lancets Test blood sugar(s) 1 times daily. Dx: Type 2 DM - Controlled E11.9 Insulin: No lisinopril 5 mg tablet Commonly known as: ZESTRIL Take 1 tablet by mouth once daily. Melatonin 5 mg Cap Take 1 capsule by mouth once daily. metFORMIN 500 mg tablet Commonly known as: GLUCOPHAGE Take 1 tablet by mouth daily with dinner. ondansetron orally disintegrating 4 mg disintegrating tablet Commonly known as: ZOFRAN ODT Take 1 tablet by mouth every 8 hours as needed for nausea/vomiting. polyethylene glycol 3350 17 gram/dose powder Use as directed for Miralax / Gatorade Bowel Prep Kit SPIRIVA RESPIMAT 2.5 mcg/actuation inhaler Generic drug: tiotropium bromide Inhale 2 Puffs as instructed once daily. thiothixene 1 mg capsule Commonl (more content not included)... Normal [facility] OXIMETRY WITH AMBULATIONon 0 06-22-2024 Bhavani Garcia RPF T 06/22/2024 10:44 AM RESPIRATORY THERAPY OXIMETRY WITH AMBULATION Oximetry with Ambulation Test for This Encounter O2 Device O2 Adapter NC O2 Flow SpO2% HR Activity Ft Walked (ft) Time (min) Avg Speed (MPH) R/A 97 71 Resting R/A 98 95 Walking, usual pace 580 3 2.2 R/A 97 103 Walking, fastest pace 690 3 2.61 General Information Pulse Oximetry Site Total Time Spent Walking Assistance/O2 Supply Carrier Forehead 30 None NAME: HEMANT Villegas PATIENT NAME: David Kincaid Valdemar DATE: June 22, 2024 TIME: 10:44 AM Comment: [facility] Corrina 05-26-2024 CNPN Telephone (INTMWS) DAVID ALDRICH ([id number]) 1960 F NFR Date Time Provider Department 05/26/24 LULU SWANSON INTMWS During your visit today, we recorded the following information about you: Essie Abarca LPN 05/26/2024 8:25 AM Signed Electronic AUBREY torres and completed for dino. Essie Abarca LPN 05/26/2024 8:31 AM Signed This was denied. Note from payer: Coverage is provided when the member meets all the following: Member has had an inadequate clinical response (the inability to reach A1C goal after at least 120 days of current regimen, with use of two or more drugs concomitantly per ADA ([place] [employer] Association) guidelines, documented adherence, and appropriate dose increases. The [facility] Policy for Medical Necessity as posted on the [facility] website and [facility] Preferred Drug List criteria were reviewed and per [place] Administrative Code Rule 5160-1-01 (C) and (B), a medically necessary service must include: generally accepted standards of medical practice, be clinically appropriate in administration, treatment and outcome and be the lowest cost alternative to effectively treat the condition. Please contact your provider to assist you with other treatment options that might be covered under your benefit package, or other services that might be available through the community. Payer: [facility] Electronic appeal: Not supported View History Notes Time User Attachment Attachment received from payer. 05/26/2024 8:25 AM Cchs, Rx Priorauth In Document Lulu Swanson APRN.CANDACE 05/26/2024 1:35 PM Signed Can please let patient know that the injectable diabetes medication was denied by her insurance. Lavon Terry LPN 05/26/2024 1:52 PM Signed Phoned pt, no answer, unable to leave message d/t voicemail box is full and can not accept messages at this time. Lavon Terry LPN 05/26/2024 4:54 PM Signed SEE RESULTS NOTE TOO. Elaine Machuca RN 05/27/2024 12:31 PM Signed Patient calls and notified of below. Patient asking if Lulu can do something to get this approved? Please review and advise, ZACH Martinez Christy, APRN.[employer] 05/28/2024 10:31 AM Signed We did complete a prior authorization for her insurance, but they will not cover the medication. Lavon Terry LPN 05/28/2024 10:49 AM Signed Phoned pt, notified of provider response. Pt asking if provider will prescribe something for weight loss for her. Advised provider does not prescribe weight loss medication. Recommended weight management program, pt agreeable to this. Please place referral and forward to scheduling. GARETH Pollard Christy, APRN.CANDACE 05/28/2024 3:38 PM Signed Referral placed. Please help schedule. Angeline Escobar 06/01/2024 2:48 PM Signed Please see weight loss referral Essie Abarca LPN 06/28/2024 3:53 PM Signed Pt has been placed on the wist list for consult. Allergies As of Date: 05/26/2024 Noted Allergy Reaction ZOCOR (SIMVASTATIN) 04/24/2013 17 - Myalgia Date Reviewed: 05/02/2024 Reviewed by: Barbara Alicea LPN - Fully Assessed Reason for Visit: Insurance Authorization [[id number]] Primary Visit Diagnosis:Overweight (BMI 25.0-29.9) [E66.3] Order(s):CONSULT TO [facility] WEIGHT MANAGEMENT PROGRAM [[id number]] Order #: [id number]: 1 FUTURE Prescriptions as of 06/28/2024 - zolpidem (AMBIEN) 10 mg Take 1 tablet by mouth daily at bedtime for 30 days. Patient should start on July 01, 2024. - pantoprazole DR (PROTONIX) 40 mg tablet Take 1 tablet by mouth once daily. - nicotine (NICODERM CQ) 21 mg/24 hr Apply 1 patch as directed every 24 hours. APPLY ONE(1) PATCH DAILY. - nicotine (NICODERM) 14 mg/24 hr Apply 1 patch as directed every 24 hours. - nicotine (NICODERM) 7 mg/24 hr Apply 1 patch as directed every 24 hours. - buPROPion SR (WELLBUTRIN SR) 150 mg 12 hr tablet Take 1 tablet by mouth two times a day. Take 1 tablet a day for 3 days before increasing to 1 tablet twice a day. - cyclobenzaprine (FLEXERIL) 5 mg tablet Take 1 tablet by mouth three times a day as needed. - imipramine HCl (TOFRANIL) 50 mg tablet Take 3 tablets by mouth daily at bedtime. - thiothixene (NAVANE) 1 mg capsule Take 2 capsules by mouth two times a day. - tiotropium bromide (SPIRIVA RESPIMAT) 2.5 mcg/actuation inhaler Inhale 2 Puffs as instructed once daily. - fluticasone-salmeterol (ADVAIR DISKUS) 250-50 mcg/dose inhaler Inhale 1 Puff as instructed two times a day. RINSE AND GARGLE MOUTH WITH WATER AFTER EACH USE. - albuterol HFA (VENTOLIN HFA) 90 mcg/actuation inhaler Inhale 2 Puffs as instructed every 4 hours as needed for wheezing/shortness of breath. - lisinopril (ZESTRIL) 5 mg tablet Take 1 tablet by mouth once daily. - metFORMIN (GLUCOPHAGE) 500 mg tablet Take 1 tablet by mouth daily with dinner. - atorvastatin (LIPITOR) 20 mg tablet (more content not included)... Normal [facility] CBC W Auto Differential pane l (Bld)on 05-25-2024 Basophils (Bld) [#/Vol] 0.07 10*3/uL NINF [facility] Basophils/100 WBC (Bld) 0.8 % [facility] Differential cell count method Nom (Bld) Auto [facility] Eosinophils (Bld) [#/Vol] 0.46 10*3/uL High [facility] Eosinophils/100 WBC (Bld) 5.4 % [facility] Erythrocyte distribution width (RBC) [Ratio] 13.2 % 11.5 - 15.0 % [facility] Hematocrit (Bld) [Volume fraction] 41.2 % 36.0 - 46.0 % [facility] Hemoglobin (Bld) [Mass/Vol] 13.5 g/dL 11.5 - 15.5 g/dL [facility] Immature granulocytes (Bld) [#/Vol] [facility] Immature granulocytes/100 WBC (Bld) 0.2 % [facility] Interpretation and review of laboratory results Abnormal [facility] Lymphocytes (Bld) [#/Vol] 1.99 10*3/uL [facility] Lymphocytes/100 WBC (Bld) 23.4 % [facility] MCH (RBC) [Entitic mass] 31.3 pg 26.0 - 34.0 pg [facility] MCHC (RBC) [Mass/Vol] 32.8 g/dL 30.5 - 36.0 g/dL [facility] MCV (RBC) [Entitic vol] 95.4 fL 80.0 - 100.0 fL [facility] Monocytes (Bld) [#/Vol] 0.66 10*3/uL [facility] Monocytes/100 WBC (Bld) 7.8 % [facility] Neutrophils (Bld) [#/Vol] 5.29 10*3/uL [facility] Neutrophils/100 WBC (Bld) 62.4 % [facility] Nucleated RBC (Bld) [#/Vol] [facility] Nucleated RBC/100 WBC (Bld) [Ratio] 0 % /100 WBC [facility] Platelet mean volume (Bld) [Entitic vol] 10.3 fL 9.0 - 12.7 fL [facility] Platelets (Bld) [#/Vol] 280 10*3/uL [facility] RBC (Bld) [#/Vol] 4.32 10*6/uL 3.90 - 5.20 m/uL [facility] WBC (Bld) [#/Vol] 8.49 10*3/uL [facility] Basophils (Bld) [#/Vol] 0.07 10*3/uL Normal <0.11 [facility] Comment on above: Order Comment: Speci men Type: BLOOD SPECIMENOrdering Facility: [facility] Address: [address] [place] [address] Performed By: #### 5 7021-8 ####[facility] LABCLIA [id number] [facility] [place] [address] [place] Basophils/100 WBC (Bld) 0.8 % Normal [facility] Comment on above: Order Comment: Speci men Type: BLOOD SPECIMENOrdering Facility: [facility] Address: [address] [place] [address] Performed By: #### 5 7021-8 ####[facility] LABCLIA [id number] [facility] [place] [address] [place] Differential cell count method Nom (Bld) Auto Normal [facility] Comment on above: Order Comment: Speci men Type: BLOOD SPECIMENOrdering Facility: [facility] Address: [address] [place] [address] Performed By: #### 5 7021-8 ####[facility] LABCLIA [id number] [place] [address] [place] Eosinophils (Bld) [#/Vol] 0.46 10*3/uL High <0.46 [facility] Comment on above: Order Comment: Speci men Type: BLOOD SPECIMENOrdering Facility: [facility] Address: [address] [place] [address] Performed By: #### 5 7021-8 ####[facility] LABCLIA [id number] [place] [address] [place] Eosinophils/100 WBC (Bld) 5.4 % Normal [facility] Comment on above: Order Comment: Speci men Type: BLOOD SPECIMENOrdering Facility: [facility] Address: [address] [place] [address] Performed By: #### 5 7021-8 ####[facility] LABCLIA [id number] [place] [address] [place] Erythrocyte distribution width (RBC) [Ratio] 13.2 % Normal 11.5-15.0 [facility] Comment on above: Order Comment: Speci men Type: BLOOD SPECIMENOrdering Facility: [facility] Address: [address] [place] [address] Performed By: #### 5 7021-8 ####[facility] LABIA [id number] [place] [address] [place] Hematocrit (Bld) [Volume fraction] 41.2 % Normal 36.0-46.0 [facility] Comment on above: Order Comment: Speci men Type: BLOOD SPECIMENOrdering Facility: [facility] Address: [address] [place] [address] Performed By: #### 5 7021-8 ####[facility] LABIA [id number] [place] [address] [place] Hemoglobin (Bld) [Mass/Vol] 13.5 g/dL Normal 11.5-15.5 [facility] Comment on above: Order Comment: Speci men Type: BLOOD SPECIMENOrdering Facility: [facility] Address: [address] [place] [address] Performed By: #### 5 7021-8 ####[facility] LABCLIA [id number] [place] [address] [place] Immature granulocytes (Bld) [#/Vol] 10*3/uL Normal <0.10 [facility] Comment on above: Order Comment: Speci men Type: BLOOD SPECIMENOrdering Facility: [facility] Address: [address] [place] [address] Performed By: #### 5 7021-8 ####[facility] LABCLIA [id number] [place] [address] [place] Immature granulocytes/100 WBC (Bld) 0.2 % Normal [facility] Comment on above: Order Comment: Speci men Type: BLOOD SPECIMENOrdering Facility: [facility] Address: [address] [place] [address] Performed By: #### 5 7021-8 ####[facility] LABCLIA [id number] [place] [address] [place] Lymphocytes (Bld) [#/Vol] 1.99 10*3/uL Normal 1.00-4.00 [facility] Comment on above: Order Comment: Speci men Type: BLOOD SPECIMENOrdering Facility: [facility] Address: [address] [place] [address] Performed By: #### 5 7021-8 ####[facility] LABCLIA [id number] [place] [address] [place] Lymphocytes/100 WBC (Bld) 23.4 % Normal [facility] Comment on above: Order Comment: Speci men Type: BLOOD SPECIMENOrdering Facility: [facility] Address: [address] [place] [address] Performed By: #### 5 7021-8 ####[facility] LABCLIA [id number] [place] [address] [place] MCH (RBC) [Entitic mass] 31.3 pg Normal 26.0-34.0 [facility] Comment on above: Order Comment: Speci men Type: BLOOD SPECIMENOrdering Facility: [facility] Address: [address] [place] [address] Performed By: #### 5 7021-8 ####[facility] LABCLIA [id number] [place] [address] [place] MCHC (RBC) [Mass/Vol] 32.8 g/dL Normal 30.5-36.[address] [facility] Comment on above: Order Comment: Speci men Type: BLOOD SPECIMENOrdering Facility: [facility] Address: [address] [place] [address] Performed By: #### 5 7021-8 ####[facility] LABCLIA [id number] [place] [address] [place] MCV (RBC) [Entitic vol] 95.4 fL Normal 80.0-100.0 [facility] Comment on above: Order Comment: Speci men Type: BLOOD SPECIMENOrdering Facility: [facility] Address: [address] [place] [address] Performed By: #### 5 7021-8 ####[facility] LABCLIA [id number] [place] [address] [place] Monocytes (Bld) [#/Vol] 0.66 10*3/uL Normal <0.87 [facility] Comment on above: Order Comment: Speci men Type: BLOOD SPECIMENOrdering Facility: [facility] Address: [address] [place] [address] Performed By: #### 5 7021-8 ####[facility] LABCLIA [id number] [place] [address] [place] Monocytes/100 WBC (Bld) 7.8 % Normal [facility] Comment on above: Order Comment: Speci men Type: BLOOD SPECIMENOrdering Facility: [facility] Address: [address] [place] [address] Performed By: #### 5 7021-8 ####[facility] LABCLIA [id number] [place] [id number] [place] Neutrophils (Bld) [#/Vol] 5.29 10*3/uL Normal 1.45-7.50 [facility] Comment on above: Order Comment: Speci men Type: BLOOD SPECIMENOrdering Facility: [facility] Address: [address] [place] [address] Performed By: #### 5 7021-8 ####[facility] LABCLIA [id number] [place] [address] [place] Neutrophils/100 WBC (Bld) 62.4 % Normal [facility] Comment on above: Order Comment: Speci men Type: BLOOD SPECIMENOrdering Facility: [facility] Address: [address] [place] [address] Performed By: #### 5 7021-8 ####[facility] LABCLIA [id number] [place] [address] [place] Nucleated RBC (Bld) [#/Vol] 10*3/uL Normal <0.01 [facility] Comment on above: Order Comment: Speci men Type: BLOOD SPECIMENOrdering Facility: [facility] Address: [address] [place] [address] Performed By: #### 5 7021-8 ####[facility] LABCLIA [id number] [place] [address] [place] Nucleated RBC/100 WBC (Bld) [Ratio] 0.0 /100 WBC Normal [facility] Comment on above: Order Comment: Speci men Type: BLOOD SPECIMENOrdering Facility: [facility] Address: [address] [place] [address] Performed By: #### 5 7021-8 ####[facility] LABIA [id number] [place] [address] [place] Platelet mean volume (Bld) [Entitic vol] 10.3 fL Normal 9.0-12.7 [facility] Comment on above: Order Comment: Speci men Type: BLOOD SPECIMENOrdering Facility: [facility] Address: [address] [place] [address] Performed By: #### 5 7021-8 ####[facility] LABCLIA [id number] [place] [address] [place] Platelets (Bld) [#/Vol] 280 10*3/uL Normal 150-400 [facility] Comment on above: Order Comment: Speci men Type: BLOOD SPECIMENOrdering Facility: [facility] Address: [address] [place] [address] Performed By: #### 5 7021-8 ####[facility] LABCLIA [id number] [place] [address] [place] RBC (Bld) [#/Vol] 4.32 10*6/uL Normal 3.90-5.20 [facility] Comment on above: Order Comment: Speci men Type: BLOOD SPECIMENOrdering Facility: [facility] Address: [address] [place] [address] Performed By: #### 5 7021-8 ####[facility] LABIA [id number] [place] [address] [place] WBC (Bld) [#/Vol] 8.49 10*3/uL Normal 3.70-11.00 [facility] Comment on above: Order Comment: Speci men Type: BLOOD SPECIMENOrdering Facility: [facility] Address: [address] [place] [address] Performed By: #### 5 7021-8 ####[facility] LABIA [id number] [place] [address] [place] CNOVon 05-25-2024 CNOV Office Visit (JORDYNWS ) DVAID ALDRICH ([id number]) 1960 F NFR Date Time Provider Department 05/25/24 10:20 AM LULU SWANSON During your visit today, we recorded the following information about you: Pulse Respiration Blood pressure Weight 75/minute 16/minute 114/80 71.2 kg Lulu Swanson APRN.[employer] 05/25/2024 10:54 AM Signed Continue taking your metformin 500 mg daily until we review your upcoming lab results. A prescription for Mounjaro (a once-a-week shot for blood sugar control and weight loss) has been sent in, pending insurance prior authorization. A follow-up appointment is planned in one month to review how you tolerate it and to consider increasing the dose if needed. Refills have been ordered for your Ambien, muscle relaxer, and the ?three little green? pills; these will be sent to [facility]. You have new lab orders to update your numbers, including your A1c; please complete these labs as soon as possible. Please schedule your overdue mammogram using the order provided. Arrange to have an ultrasound of the carotid arteries as ordered. Lulu Swanson APRN.[employer] 05/25/2024 6:34 PM Signed This is a 63 year old female who presents today with: David is a 63-year-old female with a history of type 2 diabetes mellitus, anxiety, depression, and hyperlipidemia, presenting for management of diabetes and weight loss. HISTORY OF PRESENT ILLNESS: Type 2 Diabetes Mellitus: - Currently taking metformin 500 mg daily; no side effects reported. - Last labs were in August of the previous year. - Interested in starting a GLP-1 receptor agonist for glycemic control and weight loss. - Denies history of pancreatitis or thyroid cancer. Weight Gain: - Current weight: 157 lbs. - Expresses concern about weight gain and desires weight loss. Anxiety and Depression: Stable on current regimen. Hyperlipidemia: - Tolerating current medication well. Dyspnea: - Scheduled for a breathing testing to assess the need for nocturnal oxygen therapy. - No chest pain, dizziness, or syncope reported. Insomnia: - Currently taking Ambien; effective with no side effects. - Experiences insomnia if Ambien is not taken. Tox screen is up to date. PAST MEDICAL HISTORY: PAST MEDICAL HISTORY Diagnosis Date Arrhythmia Bradycardia Diabetes mellitus with peripheral artery disease (HCC) 03/06/2015 H/O percutaneous left heart catheterization 05/2012 negative--[facility] History of rectal polypectomy 09/23/201712/2014: hyperplastic polyp Hyperlipidemia LDL goal < 100 01/25/2013 Hypertension Major depressive disorder, recurrent episode, unspecified Non-alcoholic fatty liver disease 10/13/2014 Other and unspecified hyperlipidemia Peripheral arterial disease 03/06/2015 Recurrent major depressive disorder, in full remission 03/10/2017 Snoring Type 2 diabetes mellitus with stage 3 chronic kidney disease, without long-term current use of insulin ([facility]) 05/11/2016 PAST SURGICAL HISTORY Procedure Laterality Date APPENDECTOMY 02/10/1970 ARTHROSCOPY KNEE DIAGNOSTIC W/WO SYNOVIAL BX SPX 10/19/2022 rt knee artroscopic I AND D, synovectomy CAROTID ENDARTERECTOMY 06/16/2012 Right carotid COLONOSCOPY 12/12/2014 Repeat 2018 ALLERGIES Zocor [Simvastatin] MEDICATIONS Current Outpatient Medications Medication Sig [START ON 05/31/2024] zolpidem (AMBIEN) 10 mg Take 1 tablet by mouth daily at bedtime for 30 days. Patient should start on May 31, 2024. cyclobenzaprine (FLEXERIL) 5 mg tablet Take 1 tablet by mouth three times a day as needed. imipramine HCl (TOFRANIL) 50 mg tablet Take 3 tablets by mouth daily at bedtime. tirzepatide (MOUNJARO) 2.5 mg/0.5 mL pen injector Inject 2.5 mg subcutaneously one time a week. thiothixene (NAVANE) 1 mg capsule Take 2 capsules by mouth two times a day. tiotropium bromide (SPIRIVA RESPIMAT) 2.5 mcg/actuation inhaler Inhale 2 Puffs as instructed once daily. fluticasone-salmeterol (ADVAIR DISKUS) 250-50 mcg/dose inhaler Inhale 1 Puff as instructed two times a day. RINSE AND GARGLE MOUTH WITH WATER AFTER EACH USE. albuterol HFA (VENTOLIN HFA) 90 mcg/actuation inhaler Inhale 2 Puffs as instructed every 4 hours as needed for wheezing/shortness of breath. lisinopril (ZESTRIL) 5 mg tablet Take 1 tablet by mouth once daily. metFORMIN (GLUCOPHAGE) 500 mg tablet Take 1 tablet by mouth daily with dinner. atorvastatin (LIPITOR) 20 mg tablet Take 1 tablet by mouth once daily. blood sugar diagnostic (BLOOD GLUCOSE TEST) test strip Test blood sugar(s) 1 times daily. Dx: Type 2 DM - Controlled E11.9 Insulin: No ibuprofen (MOTRIN) 800 mg tablet Take 1 tablet by mouth every 8 hours as needed for pain. Take with food. ondansetron orally disintegrating (ZOFRAN ODT) 4 mg disintegrating tablet Take 1 tablet by mouth every 8 hours as needed for nausea/vomiting. Lancets lancets (more content not included)... Normal [facility] Comprehensive metabolic 2000 panelon 05-25-2024 Albumin [Mass/Vol] 4.1 g/dL Normal 3.9-4.9 [facility] Comment on above: Order Comment: Speci men Type: BLOOD SPECIMENOrdering Facility: [facility] Address: [address] [place] [address] Performed By: #### L IPNF, 80150-3 ####[facility] LABCLIA [id number] [place] [address] [place] ALP [Catalytic activity/Vol] 109 U/L Normal 34-123 [facility] Comment on above: Order Comment: Speci men Type: BLOOD SPECIMENOrdering Facility: [facility] Address: [address] [place] [address] Performed By: #### L IPNF, 75324-1 ####[facility] LABCLIA [id number] [place] [address] [place] ALT [Catalytic activity/Vol] 14 U/L Normal 7-38 [facility] Comment on above: Order Comment: Speci men Type: BLOOD SPECIMENOrdering Facility: [facility] Address: [address] [place] [address] Performed By: #### L IPNF, 91052-2 ####[facility] LABCLIA [id number] [place] [address] [place] Anion gap [Moles/Vol] 11 mmol/L Normal 8-[address] [facility] Comment on above: Order Comment: Speci men Type: BLOOD SPECIMENOrdering Facility: [facility] Address: [address] [place] [address] Performed By: #### L IPNF, 22243-5 ####[facility] LABCLIA [id number] [place] [id number] [place] AST [Catalytic activity/Vol] 15 U/L Normal 13-35 [facility] Comment on above: Order Comment: Speci men Type: BLOOD SPECIMENOrdering Facility: [facility] Address: [address] [place], [place] [id number] Performed By: #### L IPNF, ####[facility] LABCLIA [id number] [address] [address] [place] Bilirubin [Mass/Vol] mg/dL Low 0.2-1.3 [facility] Comment on above: Order Comment: Speci men Type: BLOOD SPECIMENOrdering Facility: [facility] Address: [address] [place] [address] Performed By: #### L IPNF, ####[facility] LABCLIA [id number] [place] [id number] [place] Calcium [Mass/Vol] 9.4 mg/dL Normal 8.5-10.2 [facility] Comment on above: Order Comment: Speci men Type: BLOOD SPECIMENOrdering Facility: [facility] Address: [address] [place], [place] [address] Performed By: #### L IPNF, ####[facility] LABCLIA [id number] [place] [id number] [place] Chloride [Moles/Vol] 103 mmol/L Normal 98-107 [facility] Comment on above: Order Comment: Speci men Type: BLOOD SPECIMENOrdering Facility: [facility] Address: [address] [place], [place] [address] Performed By: #### L IPNF, 02268-5 ####[facility] LABCLIA [id number] [place] [id number] [place] CO2 [Moles/Vol] 24 mmol/L Normal 22-30 [facility] Comment on above: Order Comment: Speci men Type: BLOOD SPECIMENOrdering Facility: [facility] Address: [address] [place], [place] [address] Performed By: #### L IPNF, 38230-9 ####[facility] LABIA [id number] [place] [id number] [place] Creatinine [Mass/Vol] 0.95 mg/dL Normal 0.58-0.[address] [facility] Comment on above: Order Comment: Speci men Type: BLOOD SPECIMENOrdering Facility: [facility] Address: [address] [place] [address] Performed By: #### L IPNF, 77871-3 ####[facility] LABIA [id number] [place] [address] [place] Creatinine and Glomerular filtration rate.predicted panel (S/P/Bld) 68 mL/min/1.73m??? Normal >=60 [facility] Comment on above: Order Comment: Martine calabrese Type: BLOOD SPECIMENOrdering Facility: [facility] Address: [address] [place] [address] Result Comment: Alba mated Glomerular Filtration Rate (eGFR) is calculated using the 2020 CKD-EPI creatinine equation. This equation utilizes serum creatinine, sex, and age as parameters. The creatinine assay has traceable calibration to isotope dilution-mass spectrometry. Refer to KDIGO guidelines for clinical interpretation. In patients with unstable renal function, e.g. those with acute kidney injury, the eGFR may not accurately reflect actual GFR. Performed By: #### L IPNF, 15150-3 ####[facility] LABIA [id number] [place] [id number] [place] Glucose [Mass/Vol] 73 mg/dL Low 74-99 [facility] Comment on above: Order Comment: Martine calabrese Type: BLOOD SPECIMENOrdering Facility: [facility] Address: [address] [place] [address] Result Comment: The [place] Diabetes Association (ADA) provides guidance for cutoff values for fasting glucose and random glucose. The ADA defines fasting as no caloric intake for at least 8 hours. Fasting plasma glucose results between 100 to 125 mg/dL indicate increased risk for diabetes (prediabetes). Fasting plasma glucose results greater than or equal to 126 mg/dL meet the criteria for diagnosis of diabetes. In the absence of unequivocal hyperglycemia, results should be confirmed by repeat testing. In a patient with classic symptoms of hyperglycemia or hyperglycemic crisis, random plasma glucose results greater than or equal to 200 mg/dL meet the criteria for diagnosis of diabetes. Reference: Standards of Medical Care in Diabetes 2016, [place] Diabetes Association. Diabetes Care. 2016.39(Suppl 1). Performed By: #### L IPNF, ####[facility] LABCLIA [id number] [place] [address] [place] Potassium [Moles/Vol] 4.7 mmol/L Normal 3.7-5.[address] [facility] Comment on above: Order Comment: Speci men Type: BLOOD SPECIMENOrdering Facility: [facility] Address: [address] [place] [address] Performed By: #### L IPNF, ####[facility] LABCLIA [id number] [place] [address] [place] Protein [Mass/Vol] 6.6 g/dL Normal 6.3-8.0 [facility] Comment on above: Order Comment: Martine calabrese Type: BLOOD SPECIMENOrdering Facility: [facility] Address: [address] [place] [address] Performed By: #### L IPNF, ####[facility] LABCLIA [id number] [place] [id number] [place] Sodium [Moles/Vol] 138 mmol/L Normal 136-144 [facility] Comment on above: Order Comment: Speci men Type: BLOOD SPECIMENOrdering Facility: [facility] Address: [address] [place] [address] Performed By: #### L IPNF, 31179-9 ####[facility] LABCLIA [id number] [place] [id number] [place] Urea nitrogen [Mass/Vol] 11 mg/dL Normal 7-21 [facility] Comment on above: Order Comment: Martine calabrese Type: BLOOD SPECIMENOrdering Facility: [facility] Address: [address] [place] [address] Performed By: #### L IP, 99774-4 ####[facility] LABCLIA [id number] [address] [place] HbA1c (Bld)on 05-25-2024 Average glucose Estimated from glycated hemoglobin (Bld) [Mass/Vol] 128 mg/dL Normal [facility] Comment on above: Order Comment: Martine calabrese Type: BLOOD SPECIMENOrdering Facility: [facility] Address: [address] [place] [address] Result Comment: eAG: (Estimated average glucose) is a calculated value from HgbA1c and is personal service representative of the average blood glucose level in the last 2-3 month period. Performed By: #### 5 5454-3 ####[facility] LABIA [id number] [address] STATES OF [facility] HbA1c (Bld) [Mass fraction] 6.1 % High 4.3-5.6 [facility] Comment on above: Order Comment: Martine calabrese Type: BLOOD SPECIMENOrdering Facility: [facility] Address: [address] [place] [address] Result Comment: [place] Diabetes Association guidelines indicate that patients with HgbA1c in the range 5.7-6.4% are at increased risk for development of diabetes, and intervention by lifestyle modification may be beneficial. HgbA1c greater or equal to 6.5% is considered diagnostic of diabetes. Performed By: #### 5 5454-3 ####[facility] LABIA [id number] [place] [id number] [place] LIPID PANEL, NONFASTINGon Cholesterol [Mass/Vol] 128 mg/dL Normal <200 Cl [facility] Comment on above: Order Comment: Martine calabrese Type: BLOOD SPECIMENOrdering Facility: [facility] Address: [address] [place] [address] Result Comment: <200 mg/dL, Desirable 200-239 mg/dL, Borderline high >239 mg/dL, High Performed By: #### L RYAN, 08003-3 ####[facility] LABCLIA [id number] [place] [address] [place] [facility] HDL CHOLESTEROL, NF 54 mg/dL Normal >39 [facility] Comment on above: Order Comment: Speci men Type: BLOOD SPECIMENOrdering Facility: [facility] Address: [address] [place] [address] Result Comment: 40-5 9 mg/dL, Acceptable >59 mg/dL, High: Negative risk factor for coronary heart disease <40 mg/dL, Low: Positive risk factor for coronary heart disease Performed By: #### L RYAN, ####[facility] LABCLIA [id number] [address] OF [facility] LDL CHOLESTEROL, NF 53 mg/dL Normal <100 [facility] Comment on above: Order Comment: Carmeni men Type: BLOOD SPECIMENOrdering Facility: [facility] Address: [address] [place] [address] Result Comment: <100 mg/dL, Optimal 100-129 mg/dL, Near optimal/above optimal 130-159 mg/dL, Borderline high 160-189 mg/dL, High >189 mg/dL, Very high Secondary prevention optimal LDL Cholesterol levels are recommended to be < 70 mg/dL Performed By: #### L RYAN, 25657-4 ####[facility] LABCLIA [id number] [address] OF [facility] LDL/HDL RATIO, NF 0.98 mg/dL Normal <2.54 [facility] Comment on above: Order Comment: Carmeni men Type: BLOOD SPECIMENOrdering Facility: [facility] Address: [address] [place] [address] Result Comment: Refe rence: 1. National Cholesterol Education Program ATP III Guideline At-A-Glance Quick Desk Reference: National Heart, Lung, and Blood [place]. National Institutes of Health. 2001: NIH Publication No. 01-3305. 2. An International Atherosclerosis Society position paper: global recommendations for the management of dyslipidemia: executive summary, Atherosclerosis. 2014: 232(2):410-413. Performed By: #### L RYAN, 23619-8 ####[facility] LABCLIA [id number] [place] [id number] [place] NON HDL CHOL, NF 74 mg/dL Normal <130 [facility] Comment on above: Order Comment: Speci men Type: BLOOD SPECIMENOrdering Facility: [facility] Address: [address] [place] [address] Result Comment: <130 mg/dL, Optimal 130-159 mg/dL, Near optimal/above optimal 160-189 mg/dL, Borderline high 190-219 mg/dL, High >219 mg/dL, Very high Secondary prevention optimal non HDL Cholesterol levels are recommended to be <100 mg/dL Performed By: #### L IPMONA, ####[facility] LABCLIA [id number] [place] [id number] [place] T CHOL/HDL RATIO NF 2.37 mg/dL Normal <5.10 [facility] Comment on above: Order Comment: Martine men Type: BLOOD SPECIMENOrdering Facility: [facility] Address: [address] [place] [address] Performed By: #### L IPMONA, ####[facility] LABCLIA [id number] [place] [id number] [place] TRIGLYCERIDES, NF 105 mg/dL Normal <150 [facility] Comment on above: Order Comment: Carmeni men Type: BLOOD SPECIMENOrdering Facility: [facility] Address: [address] [place] [address] Result Comment: <150 mg/dL, Normal 150-199 mg/dL, Borderline high 200-499 mg/dL, High >499 mg/dL, Very high Performed By: #### L IPNF, ####[facility] LABCLIA [id number] [place] [address] [place] VLDL CHOLESTEROL, NF 21 mg/dL Normal <30 [facility] Comment on above: Order Comment: Speci men Type: BLOOD SPECIMENOrdering Facility: [facility] Address: [address] [place] [address] Performed By: #### L IP, 13256-3 ####[facility] LABCLIA [id number] [address] [place] CNOVon 05-02-2024 CNOV Office Visit (UCWSTR ) DAVID ALDRICH ([id number]) 1960 F NFR Date Time Provider Department 05/02/24 11:00 AM RIANNA WILKERSON [facility] During your visit today, we recorded the following information about you: Temperature Pulse Respiration Blood pressure 97.8 degrees 74/minute 24/minute 106/68 Weight 71 kg Rianna Wilkerson APRN.[employer] PANELS 05/02/2024 11:22 AM Signed [facility] Subjective David Aldrich is a 63 year old female. 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 David Aldrich is a 63 year old female who presents with left sided low back pain that radiates to her left thigh. 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 She has had the pain for about a week but it has been worse in the past 24 hours. She rates pain 8/10. She has been taking advil and muscle relaxer. Review of Systems Constitutional: Negative for chills and fever. Respiratory: Negative. Cardiovascular: Negative. Genitourinary: Negative for dysuria, frequency and urgency. Musculoskeletal: Positive for back pain. Negative for myalgias. Skin: Negative for color change and rash. Objective BP 106/68 Pulse 74 Temp 36.6 ?C (97.8 ?F) Resp 24 Wt 71 kg (156 lb 8.4 oz) LMP 11/13/2009 SpO2 99% BMI 28.17 kg/m? PAST MEDICAL HISTORY Diagnosis Date - Arrhythmia Bradycardia - Diabetes mellitus with peripheral artery disease (HCC) 03/06/2015 - H/O percutaneous left heart catheterization 05/2012 negative--[facility] - History of rectal polypectomy 09/23/201712/2014: hyperplastic polyp - Hyperlipidemia LDL goal < 100 01/25/2013 - Hypertension - Major depressive disorder, recurrent episode, unspecified - Non-alcoholic fatty liver disease 10/13/2014 - Other and unspecified hyperlipidemia - Peripheral arterial disease (HCC) 03/06/2015 - Recurrent major depressive disorder, in full remission ([facility]) 03/10/2017 - Snoring - Type 2 diabetes mellitus with stage 3 chronic kidney disease, without long-term current use of insulin ([facility]) 05/11/2016 PAST SURGICAL HISTORY Procedure Laterality Date - APPENDECTOMY 02/10/1970 - ARTHROSCOPY KNEE DIAGNOSTIC W/WO SYNOVIAL BX SPX 10/19/2022 rt knee artroscopic I AND D, synovectomy - CAROTID ENDARTERECTOMY 06/16/2012 Right carotid - COLONOSCOPY 12/12/2014 Repeat 2018 ALLERGIES Zocor [Simvastatin] MEDICATIONS - zolpidem (AMBIEN) 10 mg Take 1 tablet by mouth daily at bedtime for 30 days. - cyclobenzaprine (FLEXERIL) 5 mg tablet Take 1 tablet by mouth three times a day as needed. - imipramine HCl (TOFRANIL) 50 mg tablet Take 3 tablets by mouth daily at bedtime. - thiothixene (NAVANE) 1 mg capsule Take 2 capsules by mouth two times a day. - tiotropium bromide (SPIRIVA RESPIMAT) 2.5 mcg/actuation inhaler Inhale 2 Puffs as instructed once daily. - fluticasone-salmeterol (ADVAIR DISKUS) 250-50 mcg/dose inhaler Inhale 1 Puff as instructed two times a day. RINSE AND GARGLE MOUTH WITH WATER AFTER EACH USE. - albuterol HFA (VENTOLIN HFA) 90 mcg/actuation inhaler Inhale 2 Puffs as instructed every 4 hours as needed for wheezing/shortness of breath. - lisinopril (ZESTRIL) 5 mg tablet Take 1 tablet by mouth once daily. - metFORMIN (GLUCOPHAGE) 500 mg tablet Take 1 tablet by mouth daily with dinner. - atorvastatin (LIPITOR) 20 mg tablet Take 1 tablet by mouth once daily. - blood sugar diagnostic (BLOOD GLUCOSE TEST) test strip Test blood sugar(s) 1 times daily. Dx: Type 2 DM - Controlled E11.9 Insulin: No - ibuprofen (MOTRIN) 800 mg tablet Take 1 tablet by mouth every 8 hours as needed for pain. Take with food. - buPROPion SR (WELLBUTRIN SR) 150 mg 12 hr tablet One pill by mouth once daily X 3 days, then increase to twice daily. Take second dose before 6PM. Try to stop smoking on day 5-7. - ondansetron orally disintegrating (ZOFRAN ODT) 4 mg disintegrating tablet Take 1 tablet by mouth every 8 hours as needed for nausea/vomiting. - Lancets lancets Test blood sugar(s) 1 times daily. Dx: Type 2 DM - Controlled E11.9 Insulin: No - busPIRone (BUSPAR) 5 mg tablet Take 1 tablet by mouth three times daily as needed. - Melatonin 5 mg cap Take 1 capsule by mouth once daily. - Aspirin 81 mg tab Take 1 tablet by mouth once daily. Take with food. - predniSONE (DELTASONE) 10 mg tablet Take 4 tabs daily for 3 days, then 2 tabs daily for 3 days, then 1 tab daily for 3 days with food. - omeprazole (PRILOSEC) 20 mg capsule Take 1 capsule by mouth daily before breakfast. 1/2 hr before meal. (Patient not taking: Reported on 02/09/2024) - polyethylene glycol 3350 (MIRALAX, GLYCOLAX) 17 gram/dose powder Use as directed for Miralax / Gatorade Bowel Prep Kit (Patient not taking: Reported on 05/02/2024) - G (more content not included)... Normal [facility] Corrina 04-09-2024 CANDACEN Telephone (FAMPWS) VALDEMARDAVID Kincaid ([id number]) 1960 F NFR Date Time Provider Department 04/09/24 LULU SWANSON During your visit today, we recorded the following information about you: Mi Espinoza RN 04/09/2024 8:59 AM Signed Patient calls to let provider know that she was seeing [facility] for her "heart blockage" and it isn't going well. She reports that she is supposed to be having some testing completed but it isn't getting done. Patient isn't sure what the testing is but reports they are fighting with her insurance company. Recommended she contact [facility] to discuss concerns. Patient reports that her employer told her she had to notify Lulu. Again recommended she contact [facility] that is ordering testing as they would have updates from the insurance company. Patient reports she has no further follow up scheduled with [facility]. Noted patient is scheduled to see Dr. Doyle 05/17/[address] Diaz 11/08/2024. Patient reports she needs to know from Lulu what to do from here. Mi Espinoza, Lavon Hussein LPN 04/09/2024 10:56 AM Signed Pt saw [facility] on 03/26/24. Office note printed and given to provider for review. GARETH Pollard Christy, APRN.[employer] 04/09/2024 4:00 PM Signed I would say that she needs to contact cardiology. It looks like she saw [facility] on 03/26. It looks like if she was still having symptoms, they were going to do a nuclear stress test. Lavon Terry LPN 04/09/2024 4:16 PM Signed Pt notified. Lavon Terry LPN Allergies As of Date: 04/09/2024 Noted Allergy Reaction ZOCOR (SIMVASTATIN) 04/24/2013 17 - Myalgia Date Reviewed: 02/09/2024 Reviewed by: Dipesh Leong MD - Fully Assessed Reason for Visit: Patient Update [1234] Prescriptions as of 04/09/2024 - cyclobenzaprine (FLEXERIL) 5 mg tablet Take 1 tablet by mouth three times a day as needed. - zolpidem (AMBIEN) 10 mg Take 1 tablet by mouth daily at bedtime for 30 days. - imipramine HCl (TOFRANIL) 50 mg tablet Take 3 tablets by mouth daily at bedtime. - thiothixene (NAVANE) 1 mg capsule Take 2 capsules by mouth two times a day. - tiotropium bromide (SPIRIVA RESPIMAT) 2.5 mcg/actuation inhaler Inhale 2 Puffs as instructed once daily. - fluticasone-salmeterol (ADVAIR DISKUS) 250-50 mcg/dose inhaler Inhale 1 Puff as instructed two times a day. RINSE AND GARGLE MOUTH WITH WATER AFTER EACH USE. - albuterol HFA (VENTOLIN HFA) 90 mcg/actuation inhaler Inhale 2 Puffs as instructed every 4 hours as needed for wheezing/shortness of breath. - lisinopril (ZESTRIL) 5 mg tablet Take 1 tablet by mouth once daily. - metFORMIN (GLUCOPHAGE) 500 mg tablet Take 1 tablet by mouth daily with dinner. - atorvastatin (LIPITOR) 20 mg tablet Take 1 tablet by mouth once daily. - blood sugar diagnostic (BLOOD GLUCOSE TEST) test strip Test blood sugar(s) 1 times daily. Dx: Type 2 DM - Controlled E11.9 Insulin: No - ibuprofen (MOTRIN) 800 mg tablet Take 1 tablet by mouth every 8 hours as needed for pain. Take with food. - buPROPion SR (WELLBUTRIN SR) 150 mg 12 hr tablet One pill by mouth once daily X 3 days, then increase to twice daily. Take second dose before 6PM. Try to stop smoking on day 5-7. - ondansetron orally disintegrating (ZOFRAN ODT) 4 mg disintegrating tablet Take 1 tablet by mouth every 8 hours as needed for nausea/vomiting. - omeprazole (PRILOSEC) 20 mg capsule Take 1 capsule by mouth daily before breakfast. 1/2 hr before meal. - Lancets lancets Test blood sugar(s) 1 times daily. Dx: Type 2 DM - Controlled E11.9 Insulin: No - polyethylene glycol 3350 (MIRALAX, GLYCOLAX) 17 gram/dose powder Use as directed for Miralax / Gatorade Bowel Prep Kit - Gatorade Sports Drink Use as directed for Miralax / Gatorade Bowel Prep Kit - Bisacodyl (DULCOLAX) 5 mg tab Use as directed for Miralax / Gatorade Bowel Prep Kit - busPIRone (BUSPAR) 5 mg tablet Take 1 tablet by mouth three times daily as needed. - Melatonin 5 mg cap Take 1 capsule by mouth once daily. - Aspirin 81 mg tab Take 1 tablet by mouth once daily. Take with food. Problem List As Of Date 04/09/2024 Noted Resolved Severe major depression with psychotic features*03/11/2005 03/10/2017 Other and unspecified hyperlipidemia [E78.5] 06/30/2006 01/25/2013 Tobacco abuse [Z72.0] 12/20/2010 Hyperlipidemia with target LDL less than 100 [E*01/25/2013 Non-alcoholic fatty liver disease [K76.0] 10/13/2014 Peripheral arterial disease (HCC) [I73.9] 03/06/2015 Diabetes mellitus with peripheral artery diseas*03/06/2015 Hyponatremia [E87.1] 03/17/2015 Controlled type 2 diabetes mellitus without com*05/11/2016 Chronic insomnia [F51.04] 02/11/2017 Recurrent major depressive disorder, in full re*03/10/2017 History of rectal polypectomy [Z98.890, Z87.19] 09/23/2017 C (more content not included)... [facility] Tele[facility] (JORDYNWS) DAVID ALDRICH ([id number]) 1960 F NFR Date Time Provider Department 04/07/24 LULU SWANSON During your visit today, we recorded the following information about you: Elaine Machuca RN 04/07/2024 8:52 AM Signed Patient calls and states that she has a tooth ache and is asking if PCP can prescribe her penicillin for this. Advised patient that she needs to contact dentist for this and for provider to be able to prescribed antibiotic patient would have to be seen in office for this. Patient voiced understanding. Elaine Machuca RN Allergies As of Date: 04/07/2024 Noted Allergy Reaction ZOCOR (SIMVASTATIN) 04/24/2013 17 - Myalgia Date Reviewed: 02/09/2024 Reviewed by: Dipesh Leong MD - Fully Assessed Reason for Visit: Patient Update [1234] Prescriptions as of 04/07/2024 - cyclobenzaprine (FLEXERIL) 5 mg tablet Take 1 tablet by mouth three times a day as needed. - zolpidem (AMBIEN) 10 mg Take 1 tablet by mouth daily at bedtime for 30 days. - imipramine HCl (TOFRANIL) 50 mg tablet Take 3 tablets by mouth daily at bedtime. - thiothixene (NAVANE) 1 mg capsule Take 2 capsules by mouth two times a day. - tiotropium bromide (SPIRIVA RESPIMAT) 2.5 mcg/actuation inhaler Inhale 2 Puffs as instructed once daily. - fluticasone-salmeterol (ADVAIR DISKUS) 250-50 mcg/dose inhaler Inhale 1 Puff as instructed two times a day. RINSE AND GARGLE MOUTH WITH WATER AFTER EACH USE. - albuterol HFA (VENTOLIN HFA) 90 mcg/actuation inhaler Inhale 2 Puffs as instructed every 4 hours as needed for wheezing/shortness of breath. - lisinopril (ZESTRIL) 5 mg tablet Take 1 tablet by mouth once daily. - metFORMIN (GLUCOPHAGE) 500 mg tablet Take 1 tablet by mouth daily with dinner. - atorvastatin (LIPITOR) 20 mg tablet Take 1 tablet by mouth once daily. - blood sugar diagnostic (BLOOD GLUCOSE TEST) test strip Test blood sugar(s) 1 times daily. Dx: Type 2 DM - Controlled E11.9 Insulin: No - ibuprofen (MOTRIN) 800 mg tablet Take 1 tablet by mouth every 8 hours as needed for pain. Take with food. - buPROPion SR (WELLBUTRIN SR) 150 mg 12 hr tablet One pill by mouth once daily X 3 days, then increase to twice daily. Take second dose before 6PM. Try to stop smoking on day 5-7. - ondansetron orally disintegrating (ZOFRAN ODT) 4 mg disintegrating tablet Take 1 tablet by mouth every 8 hours as needed for nausea/vomiting. - omeprazole (PRILOSEC) 20 mg capsule Take 1 capsule by mouth daily before breakfast. 1/2 hr before meal. - Lancets lancets Test blood sugar(s) 1 times daily. Dx: Type 2 DM - Controlled E11.9 Insulin: No - polyethylene glycol 3350 (MIRALAX, GLYCOLAX) 17 gram/dose powder Use as directed for Miralax / Gatorade Bowel Prep Kit - Gatorade Sports Drink Use as directed for Miralax / Gatorade Bowel Prep Kit - Bisacodyl (DULCOLAX) 5 mg tab Use as directed for Miralax / Gatorade Bowel Prep Kit - busPIRone (BUSPAR) 5 mg tablet Take 1 tablet by mouth three times daily as needed. - Melatonin 5 mg cap Take 1 capsule by mouth once daily. - Aspirin 81 mg tab Take 1 tablet by mouth once daily. Take with food. Problem List As Of Date 04/07/2024 Noted Resolved Severe major depression with psychotic features*03/11/2005 03/10/2017 Other and unspecified hyperlipidemia [E78.5] 06/30/2006 01/25/2013 Tobacco abuse [Z72.0] 12/20/2010 Hyperlipidemia with target LDL less than 100 [E*01/25/2013 Non-alcoholic fatty liver disease [K76.0] 10/13/2014 Peripheral arterial disease (HCC) [I73.9] 03/06/2015 Diabetes mellitus with peripheral artery diseas*03/06/2015 Hyponatremia [E87.1] 03/17/2015 Controlled type 2 diabetes mellitus without com*05/11/2016 Chronic insomnia [F51.04] 02/11/2017 Recurrent major depressive disorder, in full re*03/10/2017 History of rectal polypectomy [Z98.890, Z87.19] 09/23/2017 Change in bowel habit [R19.4] 09/24/2017 Abdominal pain [R10.9] 09/24/2017 03/09/2018 Mucopurulent chronic bronchitis (HCC) [J41.1] 05/05/2018 Shoulder impingement syndrome, right [M75.41] 10/20/2018 Situational anxiety [F41.8] 10/20/2018 Left sided sciatica [M54.32] 12/24/2018 Cheek mass [R22.0] 12/24/2018 Premature atrial contraction [I49.1] 03/30/2019 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] 04/05/2019 Chronic right shoulder pain [M25.511, G89.29] 06/26/2021 Nontraumatic complete tear of right rotator cuf*06/26/2021 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*10/19/2022 Primary hypertension [I10] 10/19/2022 Familial hypercholesterolemia [E78.01] 10/19/2022 Septic arthritis (HCC) [M00.9] 10/21/2022 Nicotine use disorder, F17.2 [F17.200] 10/22/2022 Encounter Status:Closed by ELAINE MACHUCA on 04/07/24 Normal [facility] 12 Lead EKG performed by BMS on 03-26-2024 12 Lead EKG performed by BMS Normal [facility] Cardiology Visit Reporton Cardiology Visit Report Normal [facility] CNCOon 02-20-2024 CNCO Letter Text Normal [facility] CNOVon 02-09-2024 CNOV Office Visit (PULMWS ) DAVID ALDRICH ([id number]) 1960 F NFR Date Time Provider Department 02/09/24 11:00 AM DIPESH LEONG [facility] During your visit today, we recorded the following information about you: Temperature Pulse Blood pressure Weight 97.3 degrees 106/minute 148/77 70.4 kg Height 1.588 m Dipesh Leong MD 02/09/2024 12:50 PM [facility] Respiratory [place] Note Patient name: David Aldrich PCP: Lulu Swanson APRN.CANDACE Referring Physician: Adwoa De Leon CNP CC: New patient for COPD HPI: David Aldrich 63 year old female current 50 pack year smoker with PMH significant for DM, HLD, HTN, hepatic steatosis, depression recently seen in lung cancer screening clinic, being referred for evaluation of COPD. Patient is new to id. Respiratory symptoms consist of dyspnea with exertion, especially notable when climbing stairs or carrying heavy objects. She has a daily cough productive of brown phlegm, daily wheezing. Currently using Advair and Spiriva. Her insurance would not cover Trelegy Ellipta or Breztri. She does not have a rescue inhaler to use. She has never been able to quit smoking stating that she just had not made up her mind to do so. No history of recurrent bronchitis or pneumonia. Pulmonary function test show mild obstruction, mainly small airways obstruction that improves with bronchodilator, significant air trapping and hyperinflation, reduction in diffusing capacity. Her lung cancer screening CT shows some mild upper lobe emphysema and bronchial wall thickening. DATA: SERVICE DATE: 12/18/2023 SERVICE TIME: 1:41 PM Oral Exhaled Nitric Oxide measurement: 7.0 (ppb) PFT 12/2023: Mild obstruction, improvement in small airways postbronchodilator, air trapping and hyperinflation, reduction in diffusing capacity Labs: Component Ref Range AND Units 4 mo ago (09/09/23) WBC 3.70 - 11.00 k/uL 8.01 RBC 3.90 - 5.20 m/uL 4.57 Hemoglobin 11.5 - 15.5 g/dL 14.4 Hematocrit 36.0 - 46.0 % 43.8 MCV 80.0 - 100.0 fL 95.8 MCH 26.0 - 34.0 pg 31.5 MCHC 30.5 - 36.0 g/dL 32.9 RDW-CV 11.5 - 15.0 % 13.2 Platelet Count 150 - 400 k/uL 279 MPV 9.0 - 12.7 fL 10.5 Neutrophils % % 52.2 Abs Neut 1.45 - 7.50 k/uL 4.18 Lymphocytes % % 32.8 Abs Lymph 1.00 - 4.00 k/uL 2.63 Monocytes % % 8.0 Abs Sebastian <0.87 k/uL 0.64 Eosinophils % % 5.9 Abs Eosin <0.46 k/uL 0.47 High Basophils % % 0.9 Abs Baso <0.11 k/uL 0.07 Immature Granulocytes % % 0.2 Abs Immature Gran <0.10 k/uL <0.03 NRBC /100 WBC 0.0 Absolute nRBC <0.01 k/uL <0.01 Diff Type Auto Imaging / Diagnostic Studies: DATE OF EXAM: Nov 27 2023 11:45AM [facility] 0562 - CT LUNG SCREEN WO IVCON / COMPARISON: Type of study and date/time RESULT: Clustered peribronchial branching and nodular opacity within middle lobe images 143 through 1620, and in RIGHT lower lobe 163 through 188. No dominant nodule or howard consolidation, most nodules in size range 2 to 3 mm, some confluent opacities up to 6 x 3 mm for example on image 167. Few additional scattered tiny opacities, for example within RIGHT upperlobe image 83 measuring 2 mm, and measuring 3 mm LEFT lower lobe [id number]. Other findings: Mild apical predominant emphysema. Mild LEFT atrial dilation. Mediastinal lymph nodes which are subcentimeter to borderline enlarged. Partial fatty atrophy RIGHT periscapular muscles. Degenerative changes thoracic spine. Incidental coronary calcium as automatically processed and calculatedusing AI: Total Coronary Calcium Score = [100+] Agatston Units Percentile Rank (age and gender matched relative to reference population): [75th-100th] percentile* [* [email or web address]-[email or web address] calcium/input.[email or web address]] Localizer images: Mild curvature and degenerative change lumbar spine I personally reviewed the images with interpretation in HPI PAST MEDICAL HISTORY Diagnosis Date Arrhythmia Bradycardia Diabetes mellitus with peripheral artery disease (HCC) 03/06/2015 H/O percutaneous left heart catheterization 05/2012 negative--[facility] History of rectal polypectomy 09/23/201712/2014: hyperplastic polyp Hyperlipidemia LDL goal < 100 01/25/2013 Hypertension Major depressive disorder, recurrent episode, unspecified Non-alcoholic fatty liver disease 10/13/2014 Other and unspecified hyperlipidemia Peripheral arterial disease (HCC) 03/06/2015 Recurrent major depressive disorder, in full remission (HCC) 03/10/2017 Snoring Type 2 diabetes mellitus with stage 3 chronic kidney disease, without long-term current use of insulin (HCC) 05/11/2016 ALLERGIES Allergen Reactions Zocor [Simvastatin] Myalgia zolpidem (AMBIEN) 10 mg Take 1 tablet by mouth daily at bedtime for 30 days. cyclobenzaprine (FLEXERIL) 5 mg tablet Take 1 tablet by mouth three time (more content not included)... Normal [facility] CNOVon 02-02-2024 CNOV Office Visit (FAMWS ) DAVID ALDRICH ([id number]) 1960 F NFR Date Time Provider Department 02/02/24 11:20 AM LULU SWANSON [facility] During your visit today, we recorded the following information about you: Lulu Swanson APRN.[employer] 02/02/2024 4:17 PM Signed The patient left without being seen. Allergies As of Date: 02/02/2024 Noted Allergy Reaction ZOCOR (SIMVASTATIN) 04/24/2013 17 - Myalgia Date Reviewed: 12/30/2023 Reviewed by: Lavon Terry LPN - Fully Assessed Reason for Visit: Patient Left Without Being Seen [2006] Primary Visit Diagnosis:Patient left without being seen [Z53.21] Prescriptions as of 02/02/2024 - zolpidem (AMBIEN) 10 mg Take 1 tablet by mouth daily at bedtime for 30 days. - cyclobenzaprine (FLEXERIL) 5 mg tablet Take 1 tablet by mouth three times a day as needed. - fluticasone-salmeterol (ADVAIR DISKUS) 250-50 mcg/dose inhaler Inhale 1 Puff as instructed two times a day. RINSE AND GARGLE MOUTH WITH WATER AFTER EACH USE. - tiotropium bromide (SPIRIVA RESPIMAT) 2.5 mcg/actuation inhaler Inhale 2 Puffs as instructed once daily. - BREO ELLIPTA 100-25 mcg/dose inhaler Inhale 1 Inhalation as instructed once daily. - qulnikmtsng-qydkeegih-uyfmk ter (TRELEGY ELLIPTA) 100-62.5-25 mcg inhalation powder Inhale 1 Puff as instructed once daily. - lisinopril (ZESTRIL) 5 mg tablet Take 1 tablet by mouth once daily. - metFORMIN (GLUCOPHAGE) 500 mg tablet Take 1 tablet by mouth daily with dinner. - imipramine HCl (TOFRANIL) 50 mg tablet Take 3 tablets by mouth daily at bedtime. - albuterol HFA (VENTOLIN HFA) 90 mcg/actuation inhaler Inhale 2 Puffs as instructed every 4 hours as needed for wheezing/shortness of breath. - atorvastatin (LIPITOR) 20 mg tablet Take 1 tablet by mouth once daily. - blood sugar diagnostic (BLOOD GLUCOSE TEST) test strip Test blood sugar(s) 1 times daily. Dx: Type 2 DM - Controlled E11.9 Insulin: No - thiothixene (NAVANE) 1 mg capsule Take 2 capsules by mouth two times a day. - ibuprofen (MOTRIN) 800 mg tablet Take 1 tablet by mouth every 8 hours as needed for pain. Take with food. - buPROPion SR (WELLBUTRIN SR) 150 mg 12 hr tablet One pill by mouth once daily X 3 days, then increase to twice daily. Take second dose before 6PM. Try to stop smoking on day 5-7. - ondansetron orally disintegrating (ZOFRAN ODT) 4 mg disintegrating tablet Take 1 tablet by mouth every 8 hours as needed for nausea/vomiting. - omeprazole (PRILOSEC) 20 mg capsule Take 1 capsule by mouth daily before breakfast. 1/2 hr before meal. - Lancets lancets Test blood sugar(s) 1 times daily. Dx: Type 2 DM - Controlled E11.9 Insulin: No - polyethylene glycol 3350 (MIRALAX, GLYCOLAX) 17 gram/dose powder Use as directed for Miralax / Gatorade Bowel Prep Kit - Gatorade Sports Drink Use as directed for Miralax / Gatorade Bowel Prep Kit - Bisacodyl (DULCOLAX) 5 mg tab Use as directed for Miralax / Gatorade Bowel Prep Kit - busPIRone (BUSPAR) 5 mg tablet Take 1 tablet by mouth three times daily as needed. - Melatonin 5 mg cap Take 1 capsule by mouth once daily. - Aspirin 81 mg tab Take 1 tablet by mouth once daily. Take with food. Problem List As Of Date 02/02/2024 Noted Resolved Severe major depression with psychotic features*03/11/2005 03/10/2017 Other and unspecified hyperlipidemia [E78.5] 06/30/2006 01/25/2013 Tobacco abuse [Z72.0] 12/20/2010 Hyperlipidemia with target LDL less than 100 [E*01/25/2013 Non-alcoholic fatty liver disease [K76.0] 10/13/2014 Peripheral arterial disease (HCC) [I73.9] 03/06/2015 Diabetes mellitus with peripheral artery diseas*03/06/2015 Hyponatremia [E87.1] 03/17/2015 Controlled type 2 diabetes mellitus without com*05/11/2016 Chronic insomnia [F51.04] 02/11/2017 Recurrent major depressive disorder, in full re*03/10/2017 History of rectal polypectomy [Z98.890, Z87.19] 09/23/2017 Change in bowel habit [R19.4] 09/24/2017 Abdominal pain [R10.9] 09/24/2017 03/09/2018 Mucopurulent chronic bronchitis (HCC) [J41.1] 05/05/2018 Shoulder impingement syndrome, right [M75.41] 10/20/2018 Situational anxiety [F41.8] 10/20/2018 Left sided sciatica [M54.32] 12/24/2018 Cheek mass [R22.0] 12/24/2018 Premature atrial contraction [I49.1] 03/30/2019 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] 04/05/2019 Chronic right shoulder pain [M25.511, G89.29] 06/26/2021 Nontraumatic complete tear of right rotator cuf*06/26/2021 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*10/19/2022 Primary hypertension [I10] 10/19/2022 Familial hypercholesterolemia [E78.01] 10/19/2022 Septic arthritis (HCC) [M00.9] 10/21/2022 Nicotine use disorder, F17.2 [F17.200] 10/22/2022 Level of Service: UNLISTED EVALUATION AND MANAGEMENT SERVICE [10953] Encounter Status:Closed by LULU SWANSON on 02/02/24 Normal [facility] Corrina 01-23-2024 CNPN Telephone (FAMPWS) DAVID ALDRICH ([id number]) 1960 F NFR Date Time Provider Department 01/23/24 LULU SWANSON [facility] During your visit today, we recorded the following information about you: Donna Shaffer 01/23/2024 1:28 PM Signed Patient calling in to change her appt to Friday, and is also asking for another script of the medication for her finger. Please review and advise. Donna Shaffer January 23, 2024 1:27 PM Erica Mane MA 01/23/2024 1:29 PM Signed See update below from pt. YNSE Meyers Christy, ASSOCIATE PROFESSOR [employer] AUTOMATION.[employer] 01/23/2024 3:08 PM Signed Finger needs to be reassessed, as it has been 10 days since I've seen the finger. Consider ER if no improvement, as she did call in on 01/14 and 01/15 and reported that the finger was not improving. Cancelled appt on 01/19, 01/20 and today. The xray of the finger does not show any infection of the bone, which is good. It looks like there possibly was an old fracture of that finger. Lulu Swanson, TYLER.Lavon Pickard LPN 01/23/2024 3:25 PM Signed TC to pt, no answer, unable to leave message d/t voicemail box was full. GARETH Pollard Stephanie, RN 01/23/2024 3:38 PM Signed Patient notified of results and provider's instructions. Patient verbalizes understanding. Elaine Machuca RN Allergies As of Date: 01/23/2024 Noted Allergy Reaction ZOCOR (SIMVASTATIN) 04/24/2013 17 - Myalgia Date Reviewed: 12/30/2023 Reviewed by: Lavon Terry LPN - Fully Assessed Reason for Visit: Patient Question [1477] Prescriptions as of 01/23/2024 - fluticasone-salmeterol (ADVAIR DISKUS) 250-50 mcg/dose inhaler Inhale 1 Puff as instructed two times a day. RINSE AND GARGLE MOUTH WITH WATER AFTER EACH USE. - tiotropium bromide (SPIRIVA RESPIMAT) 2.5 mcg/actuation inhaler Inhale 2 Puffs as instructed once daily. - BREO ELLIPTA 100-25 mcg/dose inhaler Inhale 1 Inhalation as instructed once daily. - clindamycin (CLEOCIN) 150 mg capsule Take 1 capsule by mouth three times a day for 10 days. - cyclobenzaprine (FLEXERIL) 5 mg tablet Take 1 tablet by mouth three times a day as needed. - zolpidem (AMBIEN) 10 mg Take 1 tablet by mouth daily at bedtime for 30 days. - sbdxcpffdkh-kqlbiykso-wzhro ter (TRELEGY ELLIPTA) 100-62.5-25 mcg inhalation powder Inhale 1 Puff as instructed once daily. - lisinopril (ZESTRIL) 5 mg tablet Take 1 tablet by mouth once daily. - metFORMIN (GLUCOPHAGE) 500 mg tablet Take 1 tablet by mouth daily with dinner. - imipramine HCl (TOFRANIL) 50 mg tablet Take 3 tablets by mouth daily at bedtime. - albuterol HFA (VENTOLIN HFA) 90 mcg/actuation inhaler Inhale 2 Puffs as instructed every 4 hours as needed for wheezing/shortness of breath. - atorvastatin (LIPITOR) 20 mg tablet Take 1 tablet by mouth once daily. - blood sugar diagnostic (BLOOD GLUCOSE TEST) test strip Test blood sugar(s) 1 times daily. Dx: Type 2 DM - Controlled E11.9 Insulin: No - thiothixene (NAVANE) 1 mg capsule Take 2 capsules by mouth two times a day. - ibuprofen (MOTRIN) 800 mg tablet Take 1 tablet by mouth every 8 hours as needed for pain. Take with food. - buPROPion SR (WELLBUTRIN SR) 150 mg 12 hr tablet One pill by mouth once daily X 3 days, then increase to twice daily. Take second dose before 6PM. Try to stop smoking on day 5-7. - ondansetron orally disintegrating (ZOFRAN ODT) 4 mg disintegrating tablet Take 1 tablet by mouth every 8 hours as needed for nausea/vomiting. - omeprazole (PRILOSEC) 20 mg capsule Take 1 capsule by mouth daily before breakfast. 1/2 hr before meal. - Lancets lancets Test blood sugar(s) 1 times daily. Dx: Type 2 DM - Controlled E11.9 Insulin: No - polyethylene glycol 3350 (MIRALAX, GLYCOLAX) 17 gram/dose powder Use as directed for Miralax / Gatorade Bowel Prep Kit - Gatorade Sports Drink Use as directed for Miralax / Gatorade Bowel Prep Kit - Bisacodyl (DULCOLAX) 5 mg tab Use as directed for Miralax / Gatorade Bowel Prep Kit - busPIRone (BUSPAR) 5 mg tablet Take 1 tablet by mouth three times daily as needed. - Melatonin 5 mg cap Take 1 capsule by mouth once daily. - Aspirin 81 mg tab Take 1 tablet by mouth once daily. Take with food. Problem List As Of Date 01/23/2024 Noted Resolved Severe major depression with psychotic features*03/11/2005 03/10/2017 Other and unspecified hyperlipidemia [E78.5] 06/30/2006 01/25/2013 Tobacco abuse [Z72.0] 12/20/2010 Hyperlipidemia with target LDL less than 100 [E*01/25/2013 Non-alcoholic fatty liver disease [K76.0] 10/13/2014 Peripheral arterial disease (HCC) [I73.9] 03/06/2015 Diabetes mellitus with peripheral artery diseas*03/06/2015 Hyponatremia [E87.1] 03/17/2015 Controlled type 2 diabetes mellitus without com*05/11/2016 Chronic insomnia [F51.04] 02/11/2017 Recurrent major depressive disorder, in full re*03/10/2017 Histor (more content not included)... Normal [facility] CNPN Telephone (FAMPWS) VALDEMARDAVID ([id number]) 1960 F NFR Date Time Provider Department 01/23/24 LULU SWANSON During your visit today, we recorded the following information about you: Allergies As of Date: 01/23/2024 Noted Allergy Reaction ZOCOR (SIMVASTATIN) 04/24/2013 17 - Myalgia Date Reviewed: 12/30/2023 Reviewed by: Lavon Terry LPN - Fully Assessed Prescriptions as of 05/10/2024 - predniSONE (DELTASONE) 10 mg tablet Take 4 tabs daily for 3 days, then 2 tabs daily for 3 days, then 1 tab daily for 3 days with food. - zolpidem (AMBIEN) 10 mg Take 1 tablet by mouth daily at bedtime for 30 days. - cyclobenzaprine (FLEXERIL) 5 mg tablet Take 1 tablet by mouth three times a day as needed. - imipramine HCl (TOFRANIL) 50 mg tablet Take 3 tablets by mouth daily at bedtime. - thiothixene (NAVANE) 1 mg capsule Take 2 capsules by mouth two times a day. - tiotropium bromide (SPIRIVA RESPIMAT) 2.5 mcg/actuation inhaler Inhale 2 Puffs as instructed once daily. - fluticasone-salmeterol (ADVAIR DISKUS) 250-50 mcg/dose inhaler Inhale 1 Puff as instructed two times a day. RINSE AND GARGLE MOUTH WITH WATER AFTER EACH USE. - albuterol HFA (VENTOLIN HFA) 90 mcg/actuation inhaler Inhale 2 Puffs as instructed every 4 hours as needed for wheezing/shortness of breath. - lisinopril (ZESTRIL) 5 mg tablet Take 1 tablet by mouth once daily. - metFORMIN (GLUCOPHAGE) 500 mg tablet Take 1 tablet by mouth daily with dinner. - atorvastatin (LIPITOR) 20 mg tablet Take 1 tablet by mouth once daily. - blood sugar diagnostic (BLOOD GLUCOSE TEST) test strip Test blood sugar(s) 1 times daily. Dx: Type 2 DM - Controlled E11.9 Insulin: No - ibuprofen (MOTRIN) 800 mg tablet Take 1 tablet by mouth every 8 hours as needed for pain. Take with food. - buPROPion SR (WELLBUTRIN SR) 150 mg 12 hr tablet One pill by mouth once daily X 3 days, then increase to twice daily. Take second dose before 6PM. Try to stop smoking on day 5-7. - ondansetron orally disintegrating (ZOFRAN ODT) 4 mg disintegrating tablet Take 1 tablet by mouth every 8 hours as needed for nausea/vomiting. - omeprazole (PRILOSEC) 20 mg capsule Take 1 capsule by mouth daily before breakfast. 1/2 hr before meal. - Lancets lancets Test blood sugar(s) 1 times daily. Dx: Type 2 DM - Controlled E11.9 Insulin: No - polyethylene glycol 3350 (MIRALAX, GLYCOLAX) 17 gram/dose powder Use as directed for Miralax / Gatorade Bowel Prep Kit - Gatorade Sports Drink Use as directed for Miralax / Gatorade Bowel Prep Kit - Bisacodyl (DULCOLAX) 5 mg tab Use as directed for Miralax / Gatorade Bowel Prep Kit - busPIRone (BUSPAR) 5 mg tablet Take 1 tablet by mouth three times daily as needed. - Melatonin 5 mg cap Take 1 capsule by mouth once daily. - Aspirin 81 mg tab Take 1 tablet by mouth once daily. Take with food. Problem List As Of Date 01/23/2024 Noted Resolved Severe major depression with psychotic features*03/11/2005 03/10/2017 Other and unspecified hyperlipidemia [E78.5] 06/30/2006 01/25/2013 Tobacco abuse [Z72.0] 12/20/2010 Hyperlipidemia with target LDL less than 100 [E*01/25/2013 Non-alcoholic fatty liver disease [K76.0] 10/13/2014 Peripheral arterial disease (HCC) [I73.9] 03/06/2015 Diabetes mellitus with peripheral artery diseas*03/06/2015 Hyponatremia [E87.1] 03/17/2015 Controlled type 2 diabetes mellitus without com*05/11/2016 Chronic insomnia [F51.04] 02/11/2017 Recurrent major depressive disorder, in full re*03/10/2017 History of rectal polypectomy [Z98.890, Z87.19] 09/23/2017 Change in bowel habit [R19.4] 09/24/2017 Abdominal pain [R10.9] 09/24/2017 03/09/2018 Mucopurulent chronic bronchitis (HCC) [J41.1] 05/05/2018 Shoulder impingement syndrome, right [M75.41] 10/20/2018 Situational anxiety [F41.8] 10/20/2018 Left sided sciatica [M54.32] 12/24/2018 Cheek mass [R22.0] 12/24/2018 Premature atrial contraction [I49.1] 03/30/2019 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] 04/05/2019 Chronic right shoulder pain [M25.511, G89.29] 06/26/2021 Nontraumatic complete tear of right rotator cuf*06/26/2021 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*10/19/2022 Primary hypertension [I10] 10/19/2022 Familial hypercholesterolemia [E78.01] 10/19/2022 Septic arthritis (HCC) [M00.9] 10/21/2022 Nicotine use disorder, F17.2 [F17.200] 10/22/2022 Encounter Status:Closed by LULU SWANSON on 05/10/24 [facility] 01-22-2024 CNPN Telephone (FAMPWS) DAVID ALDRICH ([id number]) 1960 F NFR Date Time Provider Department 01/22/24 LULU SWANSON [facility] During your visit today, we recorded the following information about you: Lisa Talamantes, RN 01/22/2024 1:23 PM Signed Pt called in and asked if provider had said anything about her finger x-ray. I let her know it said that Pt had an appointment on 01/20/24, Pt changed appointment to 01/23/24. She states she better keep that appointment then. I told her yes she should. Allergies As of Date: 01/22/2024 Noted Allergy Reaction ZOCOR (SIMVASTATIN) 04/24/2013 17 - Myalgia Date Reviewed: 12/30/2023 Reviewed by: Lavon Terry LPN - Fully Assessed Reason for Visit: Results [95] Appointment [186] Patient Question [1477] Prescriptions as of 01/22/2024 - fluticasone-salmeterol (ADVAIR DISKUS) 250-50 mcg/dose inhaler Inhale 1 Puff as instructed two times a day. RINSE AND GARGLE MOUTH WITH WATER AFTER EACH USE. - tiotropium bromide (SPIRIVA RESPIMAT) 2.5 mcg/actuation inhaler Inhale 2 Puffs as instructed once daily. - BREO ELLIPTA 100-25 mcg/dose inhaler Inhale 1 Inhalation as instructed once daily. - clindamycin (CLEOCIN) 150 mg capsule Take 1 capsule by mouth three times a day for 10 days. - cyclobenzaprine (FLEXERIL) 5 mg tablet Take 1 tablet by mouth three times a day as needed. - zolpidem (AMBIEN) 10 mg Take 1 tablet by mouth daily at bedtime for 30 days. - kmrcmxldgph-jpcefysnk-bapxe ter (TRELEGY ELLIPTA) 100-62.5-25 mcg inhalation powder Inhale 1 Puff as instructed once daily. - lisinopril (ZESTRIL) 5 mg tablet Take 1 tablet by mouth once daily. - metFORMIN (GLUCOPHAGE) 500 mg tablet Take 1 tablet by mouth daily with dinner. - imipramine HCl (TOFRANIL) 50 mg tablet Take 3 tablets by mouth daily at bedtime. - albuterol HFA (VENTOLIN HFA) 90 mcg/actuation inhaler Inhale 2 Puffs as instructed every 4 hours as needed for wheezing/shortness of breath. - atorvastatin (LIPITOR) 20 mg tablet Take 1 tablet by mouth once daily. - blood sugar diagnostic (BLOOD GLUCOSE TEST) test strip Test blood sugar(s) 1 times daily. Dx: Type 2 DM - Controlled E11.9 Insulin: No - thiothixene (NAVANE) 1 mg capsule Take 2 capsules by mouth two times a day. - ibuprofen (MOTRIN) 800 mg tablet Take 1 tablet by mouth every 8 hours as needed for pain. Take with food. - buPROPion SR (WELLBUTRIN SR) 150 mg 12 hr tablet One pill by mouth once daily X 3 days, then increase to twice daily. Take second dose before 6PM. Try to stop smoking on day 5-7. - ondansetron orally disintegrating (ZOFRAN ODT) 4 mg disintegrating tablet Take 1 tablet by mouth every 8 hours as needed for nausea/vomiting. - omeprazole (PRILOSEC) 20 mg capsule Take 1 capsule by mouth daily before breakfast. 1/2 hr before meal. - Lancets lancets Test blood sugar(s) 1 times daily. Dx: Type 2 DM - Controlled E11.9 Insulin: No - polyethylene glycol 3350 (MIRALAX, GLYCOLAX) 17 gram/dose powder Use as directed for Miralax / Gatorade Bowel Prep Kit - Gatorade Sports Drink Use as directed for Miralax / Gatorade Bowel Prep Kit - Bisacodyl (DULCOLAX) 5 mg tab Use as directed for Miralax / Gatorade Bowel Prep Kit - busPIRone (BUSPAR) 5 mg tablet Take 1 tablet by mouth three times daily as needed. - Melatonin 5 mg cap Take 1 capsule by mouth once daily. - Aspirin 81 mg tab Take 1 tablet by mouth once daily. Take with food. Problem List As Of Date 01/22/2024 Noted Resolved Severe major depression with psychotic features*03/11/2005 03/10/2017 Other and unspecified hyperlipidemia [E78.5] 06/30/2006 01/25/2013 Tobacco abuse [Z72.0] 12/20/2010 Hyperlipidemia with target LDL less than 100 [E*01/25/2013 Non-alcoholic fatty liver disease [K76.0] 10/13/2014 Peripheral arterial disease (HCC) [I73.9] 03/06/2015 Diabetes mellitus with peripheral artery diseas*03/06/2015 Hyponatremia [E87.1] 03/17/2015 Controlled type 2 diabetes mellitus without com*05/11/2016 Chronic insomnia [F51.04] 02/11/2017 Recurrent major depressive disorder, in full re*03/10/2017 History of rectal polypectomy [Z98.890, Z87.19] 09/23/2017 Change in bowel habit [R19.4] 09/24/2017 Abdominal pain [R10.9] 09/24/2017 03/09/2018 Mucopurulent chronic bronchitis (HCC) [J41.1] 05/05/2018 Shoulder impingement syndrome, right [M75.41] 10/20/2018 Situational anxiety [F41.8] 10/20/2018 Left sided sciatica [M54.32] 12/24/2018 Cheek mass [R22.0] 12/24/2018 Premature atrial contraction [I49.1] 03/30/2019 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 Normal [facility] 12 Lead EKG performed by [facility] on 01-21-2024 12 Lead EKG performed by [facility] Normal [facility] Basic Metabolic Profile (BMP )on 01-21-2024 BUN/CRE 8.0 RATIO Low 10-20 [facility] Comment on above: Performed By: #### L 500.2500 ####[facility] [address] [place], [address] CA,Total 9.5 mg/dL Normal 8.5-10.1 [facility] Comment on above: Performed By: #### L 500.2500 ####[facility] [address] [place], [address] Chloride [Moles/Vol] 105 mmol/L Normal 98-107 [facility] Comment on above: Performed By: #### L 500.2500 ####[facility] [address] [place], [address] CO2 [Moles/Vol] 29.0 mmol/L Normal 21.0-32.0 [facility] Comment on above: Performed By: #### L 500.2500 ####[facility] [address] [place], [address] Creatinine [Mass/Vol] 0.88 mg/dL Normal 0.55-1.02 [facility] Comment on above: Result Comment: The validity of the calculated GFR GFRAA in patients over70 years has not been determined. Clinical correlation isessential. Performed By: #### L 500.2500 ####[facility] [address] [place], [address] EST GFR - AA 84 mL/min Normal >60 [facility] Comment on above: Result Comment: Afri can Mauritanian GFR Calc Performed By: #### L 500.2500 ####[facility] [address] [place], [address] GAP 3 Low 5-15 [facility] Comment on above: Performed By: #### L 500.2500 ####[facility] [address] [place], [address] GFR/1.73 sq M.predicted among non-blacks MDRD (S/P/Bld) [Vol rate/Area] 69 mL/min/{1.73_m2} Normal >60 [facility] Comment on above: Result Comment: Non- GFR Calc Performed By: #### L 500.2500 ####[facility] [address] [place], [address] Glucose [Mass/Vol] 108 mg/dL High 74-106 [facility] Comment on above: Result Comment: Fast ing Glucose result from 100 to 125 mg/dLsuggests IMPAIRED HOMEOSTASIS per A.D.A. criteria. Performed By: #### L 500.2500 ####[facility] [address] [place], [address] Potassium [Moles/Vol] 4.5 mmol/L Normal 3.5-5.1 [facility] Comment on above: Performed By: #### L 500.2500 ####[facility] [address] [place], [address] Sodium [Moles/Vol] 137 mmol/L Normal 136-145 [facility] Comment on above: Performed By: #### L 500.2500 ####[facility] [address] [place], [place], [address] Urea nitrogen [Mass/Vol] 7 mg/dL Normal 7-18 [facility] Comment on above: Performed By: #### L 500.2500 ####[facility] [address] [place], [place], [address] Cardiology Visit Reporton Cardiology Visit Report Normal [facility] CNPNon 01-20-2024 CNPN Telephone (CARLITOSWS) DAVID ALDRICH ([id number]) 1960 F NFR Date Time Provider Department 01/20/24 LULU SWANSON [facility] During your visit today, we recorded the following information about you: Mi Espinoza RN 01/20/2024 3:03 PM Signed Patient calls to report that she doesn't want to go to [facility] for her carotid artery study (scheduled for tomorrow 01/21/2024). Patient would prefer that it be scheduled through [facility]. Noted that the US was actually scheduled for 01/29/2024 with [facility]. Patient then reports it is for the scope that goes up through the leg. I believe she is referring to a heart catheterization. I don't see those orders. Please review and advise, ZACH Thurston Krystle, RN 01/20/2024 3:30 PM Signed Spoke with Lulu's office. Patient scheduled to see Dr. Arias at [facility] for consultation tomorrow not scheduled for a heart cath. Called patient back and went over appointment tomorrow with verbalized understanding. Patient reports at this time she will atleast go for the consultation and see Lulu after at 220 pm. Allergies As of Date: 01/20/2024 Noted Allergy Reaction ZOCOR (SIMVASTATIN) 04/24/2013 17 - Myalgia Date Reviewed: 12/30/2023 Reviewed by: Lavon Terry LPN - Fully Assessed Reason for Visit: Orders [681] Prescriptions as of 01/20/2024 - fluticasone-salmeterol (ADVAIR DISKUS) 250-50 mcg/dose inhaler Inhale 1 Puff as instructed two times a day. RINSE AND GARGLE MOUTH WITH WATER AFTER EACH USE. - tiotropium bromide (SPIRIVA RESPIMAT) 2.5 mcg/actuation inhaler Inhale 2 Puffs as instructed once daily. - BREO ELLIPTA 100-25 mcg/dose inhaler Inhale 1 Inhalation as instructed once daily. - clindamycin (CLEOCIN) 150 mg capsule Take 1 capsule by mouth three times a day for 10 days. - cyclobenzaprine (FLEXERIL) 5 mg tablet Take 1 tablet by mouth three times a day as needed. - zolpidem (AMBIEN) 10 mg Take 1 tablet by mouth daily at bedtime for 30 days. - nhlerkzkkvd-cazppyzca-tpvmc ter (TRELEGY ELLIPTA) 100-62.5-25 mcg inhalation powder Inhale 1 Puff as instructed once daily. - lisinopril (ZESTRIL) 5 mg tablet Take 1 tablet by mouth once daily. - metFORMIN (GLUCOPHAGE) 500 mg tablet Take 1 tablet by mouth daily with dinner. - imipramine HCl (TOFRANIL) 50 mg tablet Take 3 tablets by mouth daily at bedtime. - albuterol HFA (VENTOLIN HFA) 90 mcg/actuation inhaler Inhale 2 Puffs as instructed every 4 hours as needed for wheezing/shortness of breath. - atorvastatin (LIPITOR) 20 mg tablet Take 1 tablet by mouth once daily. - blood sugar diagnostic (BLOOD GLUCOSE TEST) test strip Test blood sugar(s) 1 times daily. Dx: Type 2 DM - Controlled E11.9 Insulin: No - thiothixene (NAVANE) 1 mg capsule Take 2 capsules by mouth two times a day. - ibuprofen (MOTRIN) 800 mg tablet Take 1 tablet by mouth every 8 hours as needed for pain. Take with food. - buPROPion SR (WELLBUTRIN SR) 150 mg 12 hr tablet One pill by mouth once daily X 3 days, then increase to twice daily. Take second dose before 6PM. Try to stop smoking on day 5-7. - ondansetron orally disintegrating (ZOFRAN ODT) 4 mg disintegrating tablet Take 1 tablet by mouth every 8 hours as needed for nausea/vomiting. - omeprazole (PRILOSEC) 20 mg capsule Take 1 capsule by mouth daily before breakfast. 1/2 hr before meal. - Lancets lancets Test blood sugar(s) 1 times daily. Dx: Type 2 DM - Controlled E11.9 Insulin: No - polyethylene glycol 3350 (MIRALAX, GLYCOLAX) 17 gram/dose powder Use as directed for Miralax / Gatorade Bowel Prep Kit - Gatorade Sports Drink Use as directed for Miralax / Gatorade Bowel Prep Kit - Bisacodyl (DULCOLAX) 5 mg tab Use as directed for Miralax / Gatorade Bowel Prep Kit - busPIRone (BUSPAR) 5 mg tablet Take 1 tablet by mouth three times daily as needed. - Melatonin 5 mg cap Take 1 capsule by mouth once daily. - Aspirin 81 mg tab Take 1 tablet by mouth once daily. Take with food. Problem List As Of Date 01/20/2024 Noted Resolved Severe major depression with psychotic features*03/11/2005 03/10/2017 Other and unspecified hyperlipidemia [E78.5] 06/30/2006 01/25/2013 Tobacco abuse [Z72.0] 12/20/2010 Hyperlipidemia with target LDL less than 100 [E*01/25/2013 Non-alcoholic fatty liver disease [K76.0] 10/13/2014 Peripheral arterial disease (HCC) [I73.9] 03/06/2015 Diabetes mellitus with peripheral artery diseas*03/06/2015 Hyponatremia [E87.1] 03/17/2015 Controlled type 2 diabetes mellitus without com*05/11/2016 Chronic insomnia [F51.04] 02/11/2017 Recurrent major depressive disorder, in full re*03/10/2017 History of rectal polypectomy [Z98.890, Z87.19] 09/23/2017 Change in bowel habit [R19.4] 09/24/2017 Abdominal pain [R10.9] 09/24/2017 03/09/2018 Mucopurulent chronic bronchitis (HCC) [J41.1] 05/05/2018 Shoulder impingement syndrome, (more content not included)... Normal [facility] CNPNon 01-16-2024 CNPN Telephone (FAMWS) DAVID ALDRICH ([id number]) 1960 F NFR Date Time Provider Department 01/16/24 LULU SWANSON During your visit today, we recorded the following information about you: Lindsay Gustafson LPN 01/16/2024 3:12 PM Signed Patient calling she has been taking the Clindamycin since Friday and has not noticed any improvement in her finger. She said her finger is red and swollen, not any better then when she was in the office. Patient asking if she the antibiotic rx needs to changed to something else? She uses [facility] for her pharmacy. Was asking about the xray, computer shows in process. Please advise Lulu Swanson APRN.[employer] 01/16/2024 3:38 PM Signed If her finger is not improving, then I would be concerned that she is failing out patient antibiotics. Unfortunately, the xray results are still in process. Therefore, I would have to suggest going to the ER to have the finger further evaluated. Lavon Terry LPN 01/16/2024 4:06 PM Signed Phoned pt, no answer,unable to leave message d/t voicemail is full and can not accept messages at this time. Elaine Machuca, ZACH 01/16/2024 4:34 PM Signed Patient notified of results and provider's instructions. Patient states that she will wait to see provider on Friday for provider to evaluate finger. Patient states that she still is in a lot of pain and the swelling has not gone down. Advised patient again that if finger is not improving she needs to go to ER. Patient states that she is not going to ER. ZACH Martinez Christy, APRN.CNP 01/16/2024 4:35 PM Signed Noted. Lulu Swanson APRN.CNP Allergies As of Date: 01/16/2024 Noted Allergy Reaction ZOCOR (SIMVASTATIN) 04/24/2013 17 - Myalgia Date Reviewed: 12/30/2023 Reviewed by: Lavon Terry LPN - Fully Assessed Reason for Visit: Patient Question [9057] Prescriptions as of 01/16/2024 - tiotropium bromide (SPIRIVA RESPIMAT) 2.5 mcg/actuation inhaler Inhale 2 Puffs as instructed once daily. - BREO ELLIPTA 100-25 mcg/dose inhaler Inhale 1 Inhalation as instructed once daily. - clindamycin (CLEOCIN) 150 mg capsule Take 1 capsule by mouth three times a day for 10 days. - cyclobenzaprine (FLEXERIL) 5 mg tablet Take 1 tablet by mouth three times a day as needed. - zolpidem (AMBIEN) 10 mg Take 1 tablet by mouth daily at bedtime for 30 days. - nymfybyhimd-ifumdijwe-gpnlx ter (TRELEGY ELLIPTA) 100-62.5-25 mcg inhalation powder Inhale 1 Puff as instructed once daily. - lisinopril (ZESTRIL) 5 mg tablet Take 1 tablet by mouth once daily. - metFORMIN (GLUCOPHAGE) 500 mg tablet Take 1 tablet by mouth daily with dinner. - imipramine HCl (TOFRANIL) 50 mg tablet Take 3 tablets by mouth daily at bedtime. - albuterol HFA (VENTOLIN HFA) 90 mcg/actuation inhaler Inhale 2 Puffs as instructed every 4 hours as needed for wheezing/shortness of breath. - atorvastatin (LIPITOR) 20 mg tablet Take 1 tablet by mouth once daily. - blood sugar diagnostic (BLOOD GLUCOSE TEST) test strip Test blood sugar(s) 1 times daily. Dx: Type 2 DM - Controlled E11.9 Insulin: No - thiothixene (NAVANE) 1 mg capsule Take 2 capsules by mouth two times a day. - ibuprofen (MOTRIN) 800 mg tablet Take 1 tablet by mouth every 8 hours as needed for pain. Take with food. - buPROPion SR (WELLBUTRIN SR) 150 mg 12 hr tablet One pill by mouth once daily X 3 days, then increase to twice daily. Take second dose before 6PM. Try to stop smoking on day 5-7. - ondansetron orally disintegrating (ZOFRAN ODT) 4 mg disintegrating tablet Take 1 tablet by mouth every 8 hours as needed for nausea/vomiting. - omeprazole (PRILOSEC) 20 mg capsule Take 1 capsule by mouth daily before breakfast. 1/2 hr before meal. - Lancets lancets Test blood sugar(s) 1 times daily. Dx: Type 2 DM - Controlled E11.9 Insulin: No - polyethylene glycol 3350 (MIRALAX, GLYCOLAX) 17 gram/dose powder Use as directed for Miralax / Gatorade Bowel Prep Kit - Gatorade Sports Drink Use as directed for Miralax / Gatorade Bowel Prep Kit - Bisacodyl (DULCOLAX) 5 mg tab Use as directed for Miralax / Gatorade Bowel Prep Kit - busPIRone (BUSPAR) 5 mg tablet Take 1 tablet by mouth three times daily as needed. - Melatonin 5 mg cap Take 1 capsule by mouth once daily. - Aspirin 81 mg tab Take 1 tablet by mouth once daily. Take with food. Problem List As Of Date 01/16/2024 Noted Resolved Severe major depression with psychotic features*03/11/2005 03/10/2017 Other and unspecified hyperlipidemia [E78.5] 06/30/2006 01/25/2013 Tobacco abuse [Z72.0] 12/20/2010 Hyperlipidemia with target LDL less than 100 [E*01/25/2013 Non-alcoholic fatty liver disease [K76.0] 10/13/2014 Peripheral arterial disease (HCC) [I73.9] 03/06/2015 Diabetes mellitus with peripheral artery diseas*03/06/2015 Hyponatremia [E87.1] 03/17/2015 Controlled type 2 d (more content not included)... Normal [facility] Corrina 01-15-2024 CANDACEN Telephone (FAMPWS) VALDEMARDAVID Codi ([id number]) 1960 F NFR Date Time Provider Department 01/15/24 LULU SWANSON During your visit today, we recorded the following information about you: Marie Elmore RN 01/15/2024 12:40 PM Signed Patient calling to say that right index finger swelling and pain are not improving on the antibiotic. She states it may be a little worse than it was on Friday when seen in [facility]. She does not see any visible worsening of swelling but says her finger "feels tight". Pain comes and goes to the same degree. Sometimes 11/19. Patient says she expected improvement by now. She denies increased redness, streaking, warmth or drainage. Patient started Clindamycin on Friday afternoon. Advised her may take a few more days to work and to follow instructions to go to ER if red streaking or worsening symptoms. Advised provider out of office today. ZACH Sewell Jacqueline A, APRN.[employer] 01/15/2024 12:49 PM Signed Agree with nurse's assessment. Marie Elmore RN 01/15/2024 1:00 PM Signed Spoke with patient. Given message from provider's office. Patient verbalizes understanding. She will call tomorrow with update. Marie Elmore RN Allergies As of Date: 01/15/2024 Noted Allergy Reaction ZOCOR (SIMVASTATIN) 04/24/2013 17 - Myalgia Date Reviewed: 12/30/2023 Reviewed by: Lavon Terry LPN - Fully Assessed Reason for Visit: Patient Update [1234] Prescriptions as of 01/15/2024 - clindamycin (CLEOCIN) 150 mg capsule Take 1 capsule by mouth three times a day for 10 days. - cyclobenzaprine (FLEXERIL) 5 mg tablet Take 1 tablet by mouth three times a day as needed. - zolpidem (AMBIEN) 10 mg Take 1 tablet by mouth daily at bedtime for 30 days. - zjjetrrotkf-okvrlabdm-ftmhv ter (TRELEGY ELLIPTA) 100-62.5-25 mcg inhalation powder Inhale 1 Puff as instructed once daily. - lisinopril (ZESTRIL) 5 mg tablet Take 1 tablet by mouth once daily. - metFORMIN (GLUCOPHAGE) 500 mg tablet Take 1 tablet by mouth daily with dinner. - imipramine HCl (TOFRANIL) 50 mg tablet Take 3 tablets by mouth daily at bedtime. - albuterol HFA (VENTOLIN HFA) 90 mcg/actuation inhaler Inhale 2 Puffs as instructed every 4 hours as needed for wheezing/shortness of breath. - atorvastatin (LIPITOR) 20 mg tablet Take 1 tablet by mouth once daily. - blood sugar diagnostic (BLOOD GLUCOSE TEST) test strip Test blood sugar(s) 1 times daily. Dx: Type 2 DM - Controlled E11.9 Insulin: No - thiothixene (NAVANE) 1 mg capsule Take 2 capsules by mouth two times a day. - ibuprofen (MOTRIN) 800 mg tablet Take 1 tablet by mouth every 8 hours as needed for pain. Take with food. - buPROPion SR (WELLBUTRIN SR) 150 mg 12 hr tablet One pill by mouth once daily X 3 days, then increase to twice daily. Take second dose before 6PM. Try to stop smoking on day 5-7. - ondansetron orally disintegrating (ZOFRAN ODT) 4 mg disintegrating tablet Take 1 tablet by mouth every 8 hours as needed for nausea/vomiting. - omeprazole (PRILOSEC) 20 mg capsule Take 1 capsule by mouth daily before breakfast. 1/2 hr before meal. - Lancets lancets Test blood sugar(s) 1 times daily. Dx: Type 2 DM - Controlled E11.9 Insulin: No - polyethylene glycol 3350 (MIRALAX, GLYCOLAX) 17 gram/dose powder Use as directed for Miralax / Gatorade Bowel Prep Kit - Gatorade Sports Drink Use as directed for Miralax / Gatorade Bowel Prep Kit - Bisacodyl (DULCOLAX) 5 mg tab Use as directed for Miralax / Gatorade Bowel Prep Kit - busPIRone (BUSPAR) 5 mg tablet Take 1 tablet by mouth three times daily as needed. - Melatonin 5 mg cap Take 1 capsule by mouth once daily. - Aspirin 81 mg tab Take 1 tablet by mouth once daily. Take with food. Problem List As Of Date 01/15/2024 Noted Resolved Severe major depression with psychotic features*03/11/2005 03/10/2017 Other and unspecified hyperlipidemia [E78.5] 06/30/2006 01/25/2013 Tobacco abuse [Z72.0] 12/20/2010 Hyperlipidemia with target LDL less than 100 [E*01/25/2013 Non-alcoholic fatty liver disease [K76.0] 10/13/2014 Peripheral arterial disease (HCC) [I73.9] 03/06/2015 Diabetes mellitus with peripheral artery diseas*03/06/2015 Hyponatremia [E87.1] 03/17/2015 Controlled type 2 diabetes mellitus without com*05/11/2016 Chronic insomnia [F51.04] 02/11/2017 Recurrent major depressive disorder, in full re*03/10/2017 History of rectal polypectomy [Z98.890, Z87.19] 09/23/2017 Change in bowel habit [R19.4] 09/24/2017 Abdominal pain [R10.9] 09/24/2017 03/09/2018 Mucopurulent chronic bronchitis (HCC) [J41.1] 05/05/2018 Shoulder impingement syndrome, right [M75.41] 10/20/2018 Situational anxiety [F41.8] 10/20/2018 Left sided sciatica [M54.32] 12/24/2018 Cheek mass [R22.0] 12/24/2018 Premature atrial contraction [I49.1] 03/30/2019 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 Normal [facility] ALBUMIN/CREATININE RATIO, UR INEon 01-14-2024 Albumin DL <= 20 mg/L (U) [Mass/Vol] mg/dL Normal [facility] Comment on above: Order Comment: Speci men Type: URINE SPECIMENOrdering Facility: [facility] Address: [address] [place] [address] Performed By: #### U ACR, [id number] ####[facility] LABCLIA [id number] [place] [address] [place] Albumin/Creatinine (U) [Mass ratio] Normal [facility] Comment on above: Order Comment: Speci men Type: URINE SPECIMENOrdering Facility: [facility] Address: [address] [place] [address] Result Comment: Not calculated Adult Male and Female Nephrotic Criteria: <30 mg/g is considered normal to mildly increased 30-300 mg/g is considered moderately increased >300 mg/g is considered severely increased KDIGO. (2013). KDIGO 2012 Clinical Practice Guideline for the Evaluation and Management of Chronic Kidney Disease. Official Journal of the International Society of Nephrology, 3(1), 1-150. Performed By: #### U ACR, [id number] ####[facility] LABCLIA [id number] [place] [address] [place] Creatinine (U) [Mass/Vol] 27.4 mg/dL Normal 20.0-300.0 [facility] Comment on above: Order Comment: Speci men Type: URINE SPECIMENOrdering Facility: [facility] Address: [address] [place] [address] Performed By: #### U ACR, [id number] ####[facility] LABCLIA [id number] [place] [address] [place] PAIN PANEL, UR QUANTon 01-13 7-Dvbolholgb-6,5-Dimet hyl-3,3-Diphenylpyrrol idine (EDDP) Confirm (U) [Mass/Vol] <6 Normal <6 [facility] Comment on above: Order Comment: Speci men Type: URINE SPECIMENOrdering Facility: [facility] Address: [address] [place] [address] Result Comment: EDDP is a metabolite of methadone. Performed By: #### L [id number] ####[facility] LABIA [id number] [place] [address] [place] 6-Monoacetylmorphine (6-MIR) (U) [Mass/Vol] <5 Normal <5 [facility] Comment on above: Order Comment: Speci men Type: URINE SPECIMENOrdering Facility: [facility] Address: [address], [place] [address] Result Comment: 6-MA M (6-monoacetylmorphine, also known as 6-acetylmorphine) is a unique metabolite of heroin. Presence of 6-MIR indicates use of heroin. 6-MIR is further metabolized to morphine and absence of 6-MIR does not rule out the use of heroin. Performed By: #### L [id number] ####[facility] LABIA [id number] [place] [address] [place] Amphetamine Confirm (U) [Mass/Vol] <5 Normal <5 [facility] Comment on above: Order Comment: Speci men Type: URINE SPECIMENOrdering Facility: [facility] Address: [address] [place] [address] Performed By: #### L [id number] ####[facility] [id number] [place] [address] [place] Benzoylecgonine Confirm (U) [Mass/Vol] <24 Normal <24 [facility] Comment on above: Order Comment: Speci men Type: URINE SPECIMENOrdering Facility: [facility] Address: [address] [place] [address] Result Comment: Fransisco oylecgonine is a metabolite of cocaine. Performed By: #### L [id number] ####[facility] [id number] [place] [address] [place] Buprenorphine (U) [Mass/Vol] <20 Normal <20 [facility] Comment on above: Order Comment: Speci men Type: URINE SPECIMENOrdering Facility: [facility] Address: [address] [place] [address] Performed By: #### L [id number] ####[facility] LABIA [id number] [place] [address] [place] Cannabinoids Confirm (U) [Mass/Vol] <16 Normal <16 [facility] Comment on above: Order Comment: Speci men Type: URINE SPECIMENOrdering Facility: [facility] Address: [address] [place] [address] Result Comment: Tetr ahydrocannabinol carboxylic acid (THCA) is a metabolite of yjrvx-5-bdfvspilljcyrsimqljo which is the main active component of marijuana. Performed By: #### L [id number] ####[facility] [id number] [place] [address] [place] Codeine Confirm (U) [Mass/Vol] <11 Normal <11 [facility] Comment on above: Order Comment: Speci men Type: URINE SPECIMENOrdering Facility: [facility] Address: [address] [place] [address] Performed By: #### L [id number] ####[facility] [id number] [place] [address] [place] Dihydrocodeine Confirm (U) [Mass/Vol] <5 Normal <5 [facility] Comment on above: Order Comment: Speci men Type: URINE SPECIMENOrdering Facility: [facility] Address: [address] [place] [address] Performed By: #### L [id number] ####[facility] [id number] [place] [address] [place] fentaNYL Confirm (U) [Mass/Vol] <6 Normal <6 [facility] Comment on above: Order Comment: Speci men Type: URINE SPECIMENOrdering Facility: [facility] Address: [address] [place] [address] Performed By: #### L [id number] ####[facility] [id number] [place] [address] [place] HYDROcodone Confirm (U) [Mass/Vol] <8 Normal <8 [facility] Comment on above: Order Comment: Speci men Type: URINE SPECIMENOrdering Facility: [facility] Address: [address] [place] [address] Result Comment: Hydr ocodone is a metabolite of dihydrocodeine. Performed By: #### L [id number] ####[facility] LABIA [id number] [place] [address] [place] HYDROmorphone Confirm (U) [Mass/Vol] <5 Normal <5 [facility] Comment on above: Order Comment: Speci men Type: URINE SPECIMENOrdering Facility: [facility] Address: [address] [place] [address] Result Comment: Hydr omorphone is a metabolite of hydrocodone. Performed By: #### L [id number] ####[facility] [id number] [place] [address] [place] Methadone Confirm (U) [Mass/Vol] <16 Normal <16 [facility] Comment on above: Order Comment: Speci men Type: URINE SPECIMENOrdering Facility: [facility] Address: [address] [place] [address] Performed By: #### L [id number] ####[facility] [id number] [place] [address] [place] Methamphetamine Confirm (U) [Mass/Vol] <8 Normal <8 [facility] Comment on above: Order Comment: Speci men Type: URINE SPECIMENOrdering Facility: [facility] Address: [address] [place] [address] Performed By: #### L [id number] ####[facility] [id number] [place] [address] [place] Morphine Confirm (U) [Mass/Vol] <10 Normal <10 [facility] Comment on above: Order Comment: Speci men Type: URINE SPECIMENOrdering Facility: [facility] Address: [address] [place] [address] Result Comment: Morp keisha is a metabolite of codeine and heroin. Performed By: #### L [id number] ####[facility] [id number] [place] [address] [place] Norbuprenorphine (U) [Mass/Vol] <20 Normal <20 [facility] Comment on above: Order Comment: Speci men Type: URINE SPECIMENOrdering Facility: [facility] Address: [address] [place] [address] Result Comment: Norb uprenorphine is the primary active metabolite of buprenorphine. Performed By: #### L [id number] ####[facility] [id number] [place] [address] [place] Norfentanyl Confirm (U) [Mass/Vol] <6 Normal <6 [facility] Comment on above: Order Comment: Speci men Type: URINE SPECIMENOrdering Facility: [facility] Address: [address] [place] [address] Result Comment: Norf entanyl is a metabolite of fentanyl. Performed By: #### L [id number] ####[facility] [id number] [place] [address] [place] Nortramadol (U) [Mass/Vol] <20 Normal <20 [facility] Comment on above: Order Comment: Speci men Type: URINE SPECIMENOrdering Facility: [facility] Address: [address] [place] [address] Result Comment: Desm ethyltramadol is a metabolite of tramadol. Performed By: #### L [id number] ####[facility] [id number] [place] [address] [place] NOTE,UR PAIN ALLEN Normal [facility] Comment on above: Order Comment: Speci men Type: URINE SPECIMENOrdering Facility: [facility] Address: [address] [place] [address] Result Comment: This test is for medical use only. This test was developed, and its performance characteristics determined by the [facility] Department of Pathology and Laboratory Medicine. It has not been cleared or approved by the FDA. The [facility] Department of Pathology and Laboratory Medicine is regulated under CLIA as qualified to perform high-complexity testing. This test is used for clinical purposes. It should not be regarded as investigational or for research. Performed By: #### L [id number] ####[facility] LABIA [id number] [address] [place] oxyCODONE Confirm (U) [Mass/Vol] <10 Normal <10 [facility] Comment on above: Order Comment: Speci men Type: URINE SPECIMENOrdering Facility: [facility] Address: [address] [place] [address] Performed By: #### L [id number] ####[facility] LABIA [id number] [address] [place] oxyMORphone Confirm (U) [Mass/Vol] <5 Normal <5 [facility] Comment on above: Order Comment: Speci men Type: URINE SPECIMENOrdering Facility: [facility] Address: [address] [place] [address] Result Comment: Oxym orphone is a metabolite of oxycodone. Performed By: #### L [id number] ####[facility] [id number] [place] [address] [place] traMADol Confirm (U) [Mass/Vol] <25 Normal <25 [facility] Comment on above: Order Comment: Speci men Type: URINE SPECIMENOrdering Facility: [facility] Address: [address] [place] [address] Performed By: #### L [id number] ####[facility] LABIA [id number] [place] [address] [place] SPECIMEN VALIDITY, URINEon 1 03-16-2023 CHROMATE,URINE <10 Normal <50 [facility] Comment on above: Order Comment: Speci men Type: URINE SPECIMENOrdering Facility: [facility] Address: [address] [place] [address] Performed By: #### L [id number] ####[facility] LABIA [id number] [address] [id number] [address] [place] CREATININE,URINE 28.3 mg/dL Normal 20.0-300.0 [facility] Comment on above: Order Comment: Speci men Type: URINE SPECIMENOrdering Facility: [facility] Address: [address] [place] [address] Performed By: #### L [id number] ####[facility] LABCLIA [id number] [place] [address] [place] NITRITES,URINE <50 Normal <500 [facility] Comment on above: Order Comment: Speci men Type: URINE SPECIMENOrdering Facility: [facility] Address: [address] [place] [address] Performed By: #### L [id number] ####[facility] LABCLIA [id number] [place] [address] [place] OXIDANTS,URINE <38 Normal <200 [facility] Comment on above: Order Comment: Speci men Type: URINE SPECIMENOrdering Facility: [facility] Address: [address] [place] [address] Performed By: #### L [id number] ####[facility] LABCLIA [id number] [place] [address] [place] pH (U) 5.9 [pH] Normal 4.5-8.0 [facility] Comment on above: Order Comment: Speci men Type: URINE SPECIMENOrdering Facility: [facility] Address: [address] [place] [address] Performed By: #### L [id number] ####[facility] LABCLIA [id number] [place] [address] [place] SPEC GRAVITY,UR 1.006 Normal 1.003-1.03 5 [facility] Comment on above: Order Comment: Speci men Type: URINE SPECIMENOrdering Facility: [facility] Address: [address] [place] [address] Performed By: #### L [id number] ####[facility] LABCLIA [id number] [place] [address] [place] SPECIMEN VALIDITY QUALITY Specimen quality results within acceptable limits Normal [facility] Comment on above: Order Comment: Speci men Type: URINE SPECIMENOrdering Facility: [facility] Address: [address] [place] [address] Performed By: #### L [id number] ####[facility] LABCLIA [id number] [place] [address] [place] TOXICOLOGY SCREEN, ROUTINE U RINEon 01-14-2024 Amphetamines Confirm (U) [Mass/Vol] Negative Normal Negative [facility] Comment on above: Order Comment: Speci men Type: URINE SPECIMENOrdering Facility: [facility] Address: [address] [place] [address] Result Comment: Cuto ff threshold at 1000 ng/mL. Performed By: #### U ACR, UTOX2 ####[facility] LABCLIA [id number] [place] [address] [place] BARBITURATES, URINE Negative Normal Negative [facility] Comment on above: Order Comment: Speci men Type: URINE SPECIMENOrdering Facility: [facility] Address: [address] [place] [address] Result Comment: Cuto ff threshold at 200 ng/mL. Performed By: #### U ACR, UTOX2 ####[facility] LABCLIA [id number] [place] [address] [place] BENZODIAZEPINES, UR Negative Normal Negative [facility] Comment on above: Order Comment: Speci men Type: URINE SPECIMENOrdering Facility: [facility] Address: [address] [place] [address] Result Comment: Cuto ff threshold at 200 ng/mL. Performed By: #### U ACR, UTOX2 ####[facility] LABCLIA [id number] [place] [address] [place] Cannabinoids Screen Ql (U) Negative Normal Negative [facility] Comment on above: Order Comment: Speci men Type: URINE SPECIMENOrdering Facility: [facility] Address: [address] [place] [address] Result Comment: Cuto ff threshold at 50 ng/mL. Performed By: #### U ACR, UTOX2 ####[facility] LABCLIA [id number] [place] [address] [place] Cocaine Ql (U) Negative Normal Negative [facility] Comment on above: Order Comment: Speci men Type: URINE SPECIMENOrdering Facility: [facility] Address: [address] [place] [address] Result Comment: Cuto ff threshold at 300 ng/mL. Performed By: #### U ACR, UTOX2 ####[facility] LABCLIA [id number] [place] [address] [place] Ethanol (U) [Mass/Vol] <11 Normal <11 [facility] Comment on above: Order Comment: Speci men Type: URINE SPECIMENOrdering Facility: [facility] Address: [address] [place] [address] Performed By: #### U ACR, UTOX2 ####[facility] LABCLIA [id number] [place] [address] [place] Opiates Screen Ql (U) Negative Normal Negative [facility] Comment on above: Order Comment: Speci men Type: URINE SPECIMENOrdering Facility: [facility] Address: [address] [place] [address] Result Comment: Cuto ff threshold at 300 ng/mL. Performed By: #### U ACR, UTOX2 ####[facility] LABCLIA [id number] [place] [address] [place] oxyCODONE cutoff Screen (U) [Mass/Vol] Negative Normal Negative [facility] Comment on above: Order Comment: Speci men Type: URINE SPECIMENOrdering Facility: [facility] Address: [address] [place] [address] Result Comment: Cuto ff threshold at 100 ng/mL. Performed By: #### U ACR, UTOX2 ####[facility] LABIA [id number] [place] [address] [place] Phencyclidine Ql (U) Negative Normal Negative [facility] Comment on above: Order Comment: Speci men Type: URINE SPECIMENOrdering Facility: [facility] Address: [address] [place] [address] Result Comment: Cuto ff threshold at 25 ng/mL. Performed By: #### U ACR, UTOX2 ####[facility] LABCLIA [id number] [place] [address] [place] XR DIGIT 3V FRONTAL/LAT/OBL RTon 01-14-2024 XR DIGIT 3V FRONTAL/LAT/OBL RT * * *Final Report* * * DATE OF EXAM: Jan 14 2024 1:47PM WOX [id number] - XR DIGIT 3V FRONTAL/LAT/OBL RT / PROCEDURE REASON: Finger infection * * * * Physician Interpretation * * * * PROCEDURE: Right index finger INDICATION: Finger infection .infection for 2 weeks distal end of right index finger no inj TECHNIQUE: XR DIGIT 3V FRONTAL/LAT/OBL RT COMPARISON: None FINDINGS: Small bony density ulnar to the DIP joint, perhaps due to remote fracture. No acute fracture or dislocation. DIP joint osteoarthrosis. No cortical destruction to suggest osteomyelitis. No soft tissue gas. IMPRESSION: No acute osseous abnormality. Ug Designer: PSCB Transcribe Date/Time: Jan 17 2024 2:16P Dictated by : MARTI SANTIAGO MD This examination was interpreted and the report reviewed and electronically signed by: MARTI SANTIAGO MD on Jan 17 2024 2:17PM EST [id number] Normal [facility] CNOVon 01-13-2024 CNOV Office Visit (FAMPWS ) DAVID ALDRICH ([id number]) 1960 F NFR Date Time Provider Department 01/13/24 9:40 AM LULU SWANSON During your visit today, we recorded the following information about you: Pulse Respiration Blood pressure 84/minute 16/minute 124/82 Lulu Swanson APRN.[employer] 01/14/2024 9:13 AM Signed This is a 63 year old female who presents today with: Patient presents with: Acute Visit: R pointer finger swelling/pain x 1 week; intermittent HISTORY OF PRESENT ILLNESS: David Aldrich is a 63 year old female. Patient presents with: Acute Visit: R pointer finger swelling/pain x 1 week; intermittent Pt presents today with complaint of a sore finger for over a week. 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 Now red/swollen and painful Doing salt water soaks. PAST MEDICAL HISTORY: PAST MEDICAL HISTORY Diagnosis Date Arrhythmia Bradycardia Diabetes mellitus with peripheral artery disease (HCC) 03/06/2015 H/O percutaneous left heart catheterization May, negative--[facility] History of rectal polypectomy 09/23/201712/2014: hyperplastic polyp Hyperlipidemia LDL goal < 100 01/25/2013 Hypertension Major depressive disorder, recurrent episode, unspecified Non-alcoholic fatty liver disease 10/13/2014 Other and unspecified hyperlipidemia Other chronic nonalcoholic liver disease 01/16 fatty liver disease Peripheral arterial disease (HCC) 03/06/2015 Recurrent major depressive disorder, in full remission (HCC) 03/10/2017 Snoring Type 2 diabetes mellitus with stage 3 chronic kidney disease, without long-term current use of insulin (HCC) 05/11/2016 PAST SURGICAL HISTORY Procedure Laterality Date APPENDECTOMY 02/10/1970 ARTHROSCOPY KNEE DIAGNOSTIC W/WO SYNOVIAL BX SPX 10/19/2022 rt knee artroscopic I AND D, synovectomy CAROTID ENDARTERECTOMY 06/16/2012 Right carotid COLONOSCOPY 12/12/2014 Repeat 2018 ALLERGIES Zocor [Simvastatin] MEDICATIONS Current Outpatient Medications Medication Sig cyclobenzaprine (FLEXERIL) 5 mg tablet Take 1 tablet by mouth three times a day as needed. zolpidem (AMBIEN) 10 mg Take 1 tablet by mouth daily at bedtime for 30 days. joggsuidmgj-pwxeaqggb-glgib ter (TRELEGY ELLIPTA) 100-62.5-25 mcg inhalation powder Inhale 1 Puff as instructed once daily. lisinopril (ZESTRIL) 5 mg tablet Take 1 tablet by mouth once daily. metFORMIN (GLUCOPHAGE) 500 mg tablet Take 1 tablet by mouth daily with dinner. imipramine HCl (TOFRANIL) 50 mg tablet Take 3 tablets by mouth daily at bedtime. albuterol HFA (VENTOLIN HFA) 90 mcg/actuation inhaler Inhale 2 Puffs as instructed every 4 hours as needed for wheezing/shortness of breath. atorvastatin (LIPITOR) 20 mg tablet Take 1 tablet by mouth once daily. blood sugar diagnostic (BLOOD GLUCOSE TEST) test strip Test blood sugar(s) 1 times daily. Dx: Type 2 DM - Controlled E11.9 Insulin: No thiothixene (NAVANE) 1 mg capsule Take 2 capsules by mouth two times a day. ibuprofen (MOTRIN) 800 mg tablet Take 1 tablet by mouth every 8 hours as needed for pain. Take with food. buPROPion SR (WELLBUTRIN SR) 150 mg 12 hr tablet One pill by mouth once daily X 3 days, then increase to twice daily. Take second dose before 6PM. Try to stop smoking on day 5-7. ondansetron orally disintegrating (ZOFRAN ODT) 4 mg disintegrating tablet Take 1 tablet by mouth every 8 hours as needed for nausea/vomiting. omeprazole (PRILOSEC) 20 mg capsule Take 1 capsule by mouth daily before breakfast. 1/2 hr before meal. Lancets lancets Test blood sugar(s) 1 times daily. Dx: Type 2 DM - Controlled E11.9 Insulin: No polyethylene glycol 3350 (MIRALAX, GLYCOLAX) 17 gram/dose powder Use as directed for Miralax / Gatorade Bowel Prep Kit Gatorade Sports Drink Use as directed for Miralax / Gatorade Bowel Prep Kit Bisacodyl (DULCOLAX) 5 mg tab Use as directed for Miralax / Gatorade Bowel Prep Kit busPIRone (BUSPAR) 5 mg tablet Take 1 tablet by mouth three times daily as needed. Melatonin 5 mg cap Take 1 capsule by mouth once daily. Aspirin 81 mg tab Take 1 tablet by mouth once daily. Take with food. No current facility-administered medications for this visit. FAMILY HISTORY Problem Relation Age of Onset Heart Mother Diabetes Father other (Parkinson's disease [Other]) Brother Social History Tobacco Use Smoking status: Every Day Current packs/day: 1.00 Average packs/day: 1 pack/day for 48.9 years (48.9 ttl pk-yrs) Types: Cigarettes Start date: 02/10/1975 Smokeless tobacco: Never Vaping Use Vaping status: Never Used Substance Use Topics Alcohol use: Not Currently Comment: quit 04/18 Drug use: No EXAM: BP 124/82 Pulse 84 Resp 16 LMP 11/13/2009 PHYSICAL EXAM: General Appearance: Well appearing, alert, in no acute distress, well-hydrated, well nourished.. Skin: Skin color, texture, turgor nor (more content not included)... Normal [facility] CNOVon 12-30-2023 CNOV Office Visit (FAMWS ) DAVID ALDRICH ([id number]) 1960 F NFR Date Time Provider Department 12/30/23 10:40 AM LULU SWANSON During your visit today, we recorded the following information about you: Pulse Respiration Blood pressure Weight 95/minute 16/minute 124/76 68.9 kg Lulu Swanson APRN.CNP 12/30/2023 12:48 PM Signed This is a 63 year old female who presents today with: Patient presents with: Acute Visit: Neck pain x2 weeks, intermittent, no known injury HISTORY OF PRESENT ILLNESS: David Codi Aldrich is a 63 year old female. Patient presents with: Acute Visit: Neck pain x2 weeks, intermittent, no known injury Pt presents today with complaint of neck pain. Refers that she recently had lung ca screening and testing showed elevated coronary calcium score. (She thought this was carotid and fearful of having CVA). 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 It is intermittent and improving and doesn't hurt at this time. Neck ROM intact. No tenderness to palpation. No n/t of arms. Good strength of arms. Would like to discuss next options re: test results. She had previously been ordered a stress test, but did not complete. She had a stress test in the past and had side effects and felt like she couldn't breath or was being choked. She is afraid to have another stress test. She has an appt w/ cardiology, but is scheduled in March. Unsure that she wants to wait until March to follow-up. No cardiac chest pain. Occ palpitations. Chronic SOB. She does still smoke. She is on a baby ASA, statin, and has good BP control. Last A1C - 6.2. Last LDL 28. PAST MEDICAL HISTORY: PAST MEDICAL HISTORY Diagnosis Date Arrhythmia Bradycardia Diabetes mellitus with peripheral artery disease (HCC) 03/06/2015 H/O percutaneous left heart catheterization May, negative--[facility] History of rectal polypectomy 09/23/201712/2014: hyperplastic polyp Hyperlipidemia LDL goal < 100 01/25/2013 Hypertension Major depressive disorder, recurrent episode, unspecified Non-alcoholic fatty liver disease 10/13/2014 Other and unspecified hyperlipidemia Other chronic nonalcoholic liver disease 01/16 fatty liver disease Peripheral arterial disease (HCC) 03/06/2015 Recurrent major depressive disorder, in full remission (HCC) 03/10/2017 Snoring Type 2 diabetes mellitus with stage 3 chronic kidney disease, without long-term current use of insulin (HCC) 05/11/2016 PAST SURGICAL HISTORY Procedure Laterality Date APPENDECTOMY 02/10/1970 ARTHROSCOPY KNEE DIAGNOSTIC W/WO SYNOVIAL BX SPX 10/19/2022 rt knee artroscopic I AND D, synovectomy CAROTID ENDARTERECTOMY 06/16/2012 Right carotid COLONOSCOPY 12/12/2014 Repeat 2018 ALLERGIES Zocor [Simvastatin] MEDICATIONS Current Outpatient Medications Medication Sig epxnqzanewd-cxuzqcpmb-ecllg ter (TRELEGY ELLIPTA) 100-62.5-25 mcg inhalation powder Inhale 1 Puff as instructed once daily. zolpidem (AMBIEN) 10 mg Take 1 tablet by mouth daily at bedtime for 30 days. cyclobenzaprine (FLEXERIL) 5 mg tablet Take 1 tablet by mouth three times a day as needed. lisinopril (ZESTRIL) 5 mg tablet Take 1 tablet by mouth once daily. metFORMIN (GLUCOPHAGE) 500 mg tablet Take 1 tablet by mouth daily with dinner. imipramine HCl (TOFRANIL) 50 mg tablet Take 3 tablets by mouth daily at bedtime. albuterol HFA (VENTOLIN HFA) 90 mcg/actuation inhaler Inhale 2 Puffs as instructed every 4 hours as needed for wheezing/shortness of breath. atorvastatin (LIPITOR) 20 mg tablet Take 1 tablet by mouth once daily. blood sugar diagnostic (BLOOD GLUCOSE TEST) test strip Test blood sugar(s) 1 times daily. Dx: Type 2 DM - Controlled E11.9 Insulin: No thiothixene (NAVANE) 1 mg capsule Take 2 capsules by mouth two times a day. ibuprofen (MOTRIN) 800 mg tablet Take 1 tablet by mouth every 8 hours as needed for pain. Take with food. buPROPion SR (WELLBUTRIN SR) 150 mg 12 hr tablet One pill by mouth once daily X 3 days, then increase to twice daily. Take second dose before 6PM. Try to stop smoking on day 5-7. ondansetron orally disintegrating (ZOFRAN ODT) 4 mg disintegrating tablet Take 1 tablet by mouth every 8 hours as needed for nausea/vomiting. omeprazole (PRILOSEC) 20 mg capsule Take 1 capsule by mouth daily before breakfast. 1/2 hr before meal. Lancets lancets Test blood sugar(s) 1 times daily. Dx: Type 2 DM - Controlled E11.9 Insulin: No polyethylene glycol 3350 (MIRALAX, GLYCOLAX) 17 gram/dose powder Use as directed for Miralax / Gatorade Bowel Prep Kit Gatorade Sports Drink Use as directed for Miralax / Gatorade Bowel Prep Kit Bisacodyl (DULCOLAX) 5 mg tab Use as directed for Miralax / Gatorade Bowel Prep Kit busPIRone (BUSPAR) 5 mg tablet Take 1 tablet by mouth three times daily as n (more content not included)... Normal [facility] 12-26-2023 [facility] Telephone (FAMPWS) DAVID ALDRICH ([id number]) 1960 F NFR Date Time Provider Department 12/26/23 LULU SWANSON During your visit today, we recorded the following information about you: Maryan Lemus LPN 12/26/2023 2:56 PM Signed patient called c/o neck sore on the left side of neck near her ear. Pain 08/19 sore, but she has been working a lot . Patient made appt for Friday at 10:40pm. Patient just worried it maybe related to coronary artery calcification? Please review GARETH Powell William J, MD 12/26/2023 2:59 PM Signed That should have nothing to do with it. If severe, needs seen at ER or uc over weekend Mima Dee LPN 12/26/2023 3:07 PM Signed Scheduled a triage appt for patient. Allergies As of Date: 12/26/2023 Noted Allergy Reaction ZOCOR (SIMVASTATIN) 04/24/2013 17 - Myalgia Date Reviewed: 12/18/2023 Reviewed by: Bhavani Garcia RPFT - Fully Assessed Prescriptions as of 12/26/2023 - nzoyvwaazpt-nszrsaloc-dkvev ter (TRELEGY ELLIPTA) 100-62.5-25 mcg inhalation powder Inhale 1 Puff as instructed once daily. - zolpidem (AMBIEN) 10 mg Take 1 tablet by mouth daily at bedtime for 30 days. - cyclobenzaprine (FLEXERIL) 5 mg tablet Take 1 tablet by mouth three times a day as needed. - lisinopril (ZESTRIL) 5 mg tablet Take 1 tablet by mouth once daily. - metFORMIN (GLUCOPHAGE) 500 mg tablet Take 1 tablet by mouth daily with dinner. - imipramine HCl (TOFRANIL) 50 mg tablet Take 3 tablets by mouth daily at bedtime. - albuterol HFA (VENTOLIN HFA) 90 mcg/actuation inhaler Inhale 2 Puffs as instructed every 4 hours as needed for wheezing/shortness of breath. - atorvastatin (LIPITOR) 20 mg tablet Take 1 tablet by mouth once daily. - blood sugar diagnostic (BLOOD GLUCOSE TEST) test strip Test blood sugar(s) 1 times daily. Dx: Type 2 DM - Controlled E11.9 Insulin: No - thiothixene (NAVANE) 1 mg capsule Take 2 capsules by mouth two times a day. - ibuprofen (MOTRIN) 800 mg tablet Take 1 tablet by mouth every 8 hours as needed for pain. Take with food. - buPROPion SR (WELLBUTRIN SR) 150 mg 12 hr tablet One pill by mouth once daily X 3 days, then increase to twice daily. Take second dose before 6PM. Try to stop smoking on day 5-7. - ondansetron orally disintegrating (ZOFRAN ODT) 4 mg disintegrating tablet Take 1 tablet by mouth every 8 hours as needed for nausea/vomiting. - omeprazole (PRILOSEC) 20 mg capsule Take 1 capsule by mouth daily before breakfast. 1/2 hr before meal. - Lancets lancets Test blood sugar(s) 1 times daily. Dx: Type 2 DM - Controlled E11.9 Insulin: No - polyethylene glycol 3350 (MIRALAX, GLYCOLAX) 17 gram/dose powder Use as directed for Miralax / Gatorade Bowel Prep Kit - Gatorade Sports Drink Use as directed for Miralax / Gatorade Bowel Prep Kit - Bisacodyl (DULCOLAX) 5 mg tab Use as directed for Miralax / Gatorade Bowel Prep Kit - busPIRone (BUSPAR) 5 mg tablet Take 1 tablet by mouth three times daily as needed. - Melatonin 5 mg cap Take 1 capsule by mouth once daily. - Aspirin 81 mg tab Take 1 tablet by mouth once daily. Take with food. Problem List As Of Date 12/26/2023 Noted Resolved Severe major depression with psychotic features*03/11/2005 03/10/2017 Other and unspecified hyperlipidemia [E78.5] 06/30/2006 01/25/2013 Tobacco abuse [Z72.0] 12/20/2010 Hyperlipidemia with target LDL less than 100 [E*01/25/2013 Non-alcoholic fatty liver disease [K76.0] 10/13/2014 Peripheral arterial disease (HCC) [I73.9] 03/06/2015 Diabetes mellitus with peripheral artery diseas*03/06/2015 Hyponatremia [E87.1] 03/17/2015 Controlled type 2 diabetes mellitus without com*05/11/2016 Chronic insomnia [F51.04] 02/11/2017 Recurrent major depressive disorder, in full re*03/10/2017 History of rectal polypectomy [Z98.890, Z87.19] 09/23/2017 Change in bowel habit [R19.4] 09/24/2017 Abdominal pain [R10.9] 09/24/2017 03/09/2018 Mucopurulent chronic bronchitis (HCC) [J41.1] 05/05/2018 Shoulder impingement syndrome, right [M75.41] 10/20/2018 Situational anxiety [F41.8] 10/20/2018 Left sided sciatica [M54.32] 12/24/2018 Cheek mass [R22.0] 12/24/2018 Premature atrial contraction [I49.1] 03/30/2019 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] 04/05/2019 Chronic right shoulder pain [M25.511, G89.29] 06/26/2021 Nontraumatic complete tear of right rotator cuf*06/26/2021 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*10/19/2022 Primary hypertension [I10] 10/19/2022 Familial hypercholesterolemia [E78.01] 10/19/2022 Septic arthritis (HCC) [M00.9] 10/21/2022 Nicotine use disorder, F17.2 [F17.200] 10/22/2022 Encounter Status:Closed by MIMA DEE on 12/26/23 [facility]rina 12-23-2023 [facility] Telephone (RIQ) DAVID ALDRICH ([id number]) 1960 F NFR Date Time Provider Department 12/23/23 ADWOA DE LEON During your visit today, we recorded the following information about you: Steve Mitchell Angeline 12/23/2023 1:39 PM Signed Patient is requesting a return call in regards to PFT results please advise the patient. Adwoa De Leon APRN.CNP 12/25/2023 2:18 PM Signed Pt notified PFT indicate mild COPD and mild emphysema. Recommend beginning an inhaler daily to help with symptoms and establishing with general pulmonology. MAKAYLA Etienne Amelia, LPN 01/12/2024 10:56 AM Signed Patient called into office stating that [facility] is telling her that "adwoa edyagueda isnt doing what she is supposed too. To get insurance to approve medication. " Please advise and call patient at [phone]. GARETH Hatch Melinda, APRN.CNP 01/16/2024 3:06 PM Signed Called [facility] and spoke with [facility] pharmacist. Spiriva and Breo were received. Spiriva went through, but Breo needs prior auth. MAKAYLA Etienne Melinda, APRN.CNP 01/16/2024 3:06 PM Signed Addended by: ADWOA DE LEON on: 01/16/2024 03:06 PM Modules accepted: Orders Adwoa De Leon APRN.CNP 01/16/2024 3:08 PM Signed Called patient, mailbox is full cannot leave a message. MAKAYLA Etienne Melinda, APRN.CNP 01/19/2024 8:23 AM Signed Addended by: ADWOA DE LEON on: 01/19/2024 08:23 AM Modules accepted: Orders Allergies As of Date: 12/23/2023 Noted Allergy Reaction ZOCOR (SIMVASTATIN) 04/24/2013 17 - Myalgia Date Reviewed: 12/18/2023 Reviewed by: Bhavani Garcia RPFT - Fully Assessed Reason for Visit: Results [95] Primary Visit Diagnosis:Pulmonary emphysema, unspecified emphysema type (HCC) [J43.9] Other Visit Diagnoses:SOB (shortness of breath) [R06.02] Sinobronchitis [J32.9, J40] 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] Order(s):fluticasone-umecli din-vilanter (TRELEGY ELLIPTA) 100-62.5-25 mcg inhalation powderInhale 1 Puff as instructed once daily.Disp: 1 EachRfl: 2 CONSULT TO PULMONARY MEDICINE [[id number]] Order #: [id number]: 1 tiotropium bromide (SPIRIVA RESPIMAT) 2.5 mcg/actuation inhalerInhale 2 Puffs as instructed once daily.Disp: 1 EachRfl: 2 BREO ELLIPTA 100-25 mcg/dose inhalerInhale 1 Inhalation as instructed once daily.Disp: 1 EachRfl: 2 fluticasone-salmeterol (ADVAIR DISKUS) 250-50 mcg/dose inhalerInhale 1 Puff as instructed two times a day. RINSE AND GARGLE MOUTH WITH WATER AFTER EACH USE.Disp: 1 EachRfl: 1 Prescriptions as of 01/19/2024 - fluticasone-salmeterol (ADVAIR DISKUS) 250-50 mcg/dose inhaler Inhale 1 Puff as instructed two times a day. RINSE AND GARGLE MOUTH WITH WATER AFTER EACH USE. - tiotropium bromide (SPIRIVA RESPIMAT) 2.5 mcg/actuation inhaler Inhale 2 Puffs as instructed once daily. - BREO ELLIPTA 100-25 mcg/dose inhaler Inhale 1 Inhalation as instructed once daily. - clindamycin (CLEOCIN) 150 mg capsule Take 1 capsule by mouth three times a day for 10 days. - cyclobenzaprine (FLEXERIL) 5 mg tablet Take 1 tablet by mouth three times a day as needed. - zolpidem (AMBIEN) 10 mg Take 1 tablet by mouth daily at bedtime for 30 days. - mqgitrvylxd-nvylbufvz-kyuik ter (TRELEGY ELLIPTA) 100-62.5-25 mcg inhalation powder Inhale 1 Puff as instructed once daily. - lisinopril (ZESTRIL) 5 mg tablet Take 1 tablet by mouth once daily. - metFORMIN (GLUCOPHAGE) 500 mg tablet Take 1 tablet by mouth daily with dinner. - imipramine HCl (TOFRANIL) 50 mg tablet Take 3 tablets by mouth daily at bedtime. - albuterol HFA (VENTOLIN HFA) 90 mcg/actuation inhaler Inhale 2 Puffs as instructed every 4 hours as needed for wheezing/shortness of breath. - atorvastatin (LIPITOR) 20 mg tablet Take 1 tablet by mouth once daily. - blood sugar diagnostic (BLOOD GLUCOSE TEST) test strip Test blood sugar(s) 1 times daily. Dx: Type 2 DM - Controlled E11.9 Insulin: No - thiothixene (NAVANE) 1 mg capsule Take 2 capsules by mouth two times a day. - ibuprofen (MOTRIN) 800 mg tablet Take 1 tablet by mouth every 8 hours as needed for pain. Take with food. - buPROPion SR (WELLBUTRIN SR) 150 mg 12 hr tablet One pill by mouth once daily X 3 days, then increase to twice daily. Take second dose before 6PM. Try to stop smoking on day 5-7. - ondansetron orally disintegrating (ZOFRAN ODT) 4 mg disintegrating tablet Take 1 tablet by mouth every 8 hours as needed for nausea/vomiting. - omeprazole (PRILOSEC) 20 mg capsule Take 1 capsule by mouth daily before breakfast. 1/2 hr before meal. - Lancets lancets Test blood sugar(s) 1 times daily. Dx: Type 2 DM - Controlled E11.9 Insulin: No - polyethylene glycol 3350 (MIRALAX, GLYCOLAX) 17 gram/dose powder Use as directed for Miralax / Gatorade Bowel Prep Kit - Gatorade Sports Drink Use as di (more content not included)... Normal [facility] NITRIC OXIDE, EXHALEDon 11-0 Bhavani Garcia RPF T 12/18/2023 1:41 PM RESPIRATORY THERAPY ORAL EXHALED NITRIC OXIDE SERVICE DATE: 12/18/2023 SERVICE TIME: 1:41 PM Oral Exhaled Nitric Oxide measurement: 7.0 (ppb) Normal: Adult <25 ppb, pediatric (<12 years) <20 ppb High Normal / Increased: Adult 25-50 ppb, pediatric (<12 years) 20-35 ppb Moderately raised exhaled Nitric Oxide may indicate underlying inflammation, but note that: Cold and influenza can raise exhaled Nitric Oxide and some patients have higher baseline exhaled Nitric Oxide levels than others. High: Adult >50 ppb, pediatric (<12 years) >35 ppb Indicative of ongoing eosinophilic inflammation. Symptomatic patient likely to respond to steroids. Possible causes (if already on steroids): Poor compliance, recent allergen exposure, steroid dose inadequate, and steroid resistance. Note that not all patients with high exhaled nitric oxide levels display symptoms. Oral Exhaled Nitric Oxide measurement (Previous Encounters) Test Date Oral Exhaled Nitric Oxide (ppb) 12/18/2023 7.0 NAME: Bhavani Garcia FAUZIA PATIENT NAME: David Aldrich DATE: December 18, 2023 TIME: 1:41 PM [facility] 12-08-2023 [facility] Telephone (FAMWS) DAVID ALDRICH ([id number]) 1960 F NFR Date Time Provider Department 12/08/23 LULU SWANSON [facility] During your visit today, we recorded the following information about you: Aarti Reyes 12/08/2023 9:34 AM Addendum Patient requesting the following medications that are on list: zolpidem (AMBIEN) 10 mg () Patient last seen: 11-05-23 Future appt scheduled: yes PHARMACY: [facility] Follow up 02/13/24 with Lulu Anderson As of Date: 12/08/2023 Noted Allergy Reaction ZOCOR (SIMVASTATIN) 04/24/2013 17 - Myalgia Date Reviewed: 2023 Reviewed by: Adwoa De Leon APRN.[employer] - Fully Assessed Reason for Visit: requesting medication that is [Other] Visit Diagnoses:Medication monitoring encounter [Z51.81] Chronic insomnia [F51.04] Left sided sciatica [M54.32] Order(s):zolpidem (AMBIEN) 10 mgTake 1 tablet by mouth daily at bedtime for 30 days.Disp: 30 tabletRfl: 0 cyclobenzaprine (FLEXERIL) 5 mg tabletTake 1 tablet by mouth three times a day as needed.Disp: 90 tabletRfl: 0 Prescriptions as of 12/08/2023 - zolpidem (AMBIEN) 10 mg Take 1 tablet by mouth daily at bedtime for 30 days. - cyclobenzaprine (FLEXERIL) 5 mg tablet Take 1 tablet by mouth three times a day as needed. - lisinopril (ZESTRIL) 5 mg tablet Take 1 tablet by mouth once daily. - metFORMIN (GLUCOPHAGE) 500 mg tablet Take 1 tablet by mouth daily with dinner. - imipramine HCl (TOFRANIL) 50 mg tablet Take 3 tablets by mouth daily at bedtime. - albuterol HFA (VENTOLIN HFA) 90 mcg/actuation inhaler Inhale 2 Puffs as instructed every 4 hours as needed for wheezing/shortness of breath. - atorvastatin (LIPITOR) 20 mg tablet Take 1 tablet by mouth once daily. - blood sugar diagnostic (BLOOD GLUCOSE TEST) test strip Test blood sugar(s) 1 times daily. Dx: Type 2 DM - Controlled E11.9 Insulin: No - thiothixene (NAVANE) 1 mg capsule Take 2 capsules by mouth two times a day. - ibuprofen (MOTRIN) 800 mg tablet Take 1 tablet by mouth every 8 hours as needed for pain. Take with food. - buPROPion SR (WELLBUTRIN SR) 150 mg 12 hr tablet One pill by mouth once daily X 3 days, then increase to twice daily. Take second dose before 6PM. Try to stop smoking on day 5-7. - ondansetron orally disintegrating (ZOFRAN ODT) 4 mg disintegrating tablet Take 1 tablet by mouth every 8 hours as needed for nausea/vomiting. - omeprazole (PRILOSEC) 20 mg capsule Take 1 capsule by mouth daily before breakfast. 1/2 hr before meal. - Lancets lancets Test blood sugar(s) 1 times daily. Dx: Type 2 DM - Controlled E11.9 Insulin: No - polyethylene glycol 3350 (MIRALAX, GLYCOLAX) 17 gram/dose powder Use as directed for Miralax / Gatorade Bowel Prep Kit - Gatorade Sports Drink Use as directed for Miralax / Gatorade Bowel Prep Kit - Bisacodyl (DULCOLAX) 5 mg tab Use as directed for Miralax / Gatorade Bowel Prep Kit - busPIRone (BUSPAR) 5 mg tablet Take 1 tablet by mouth three times daily as needed. - Melatonin 5 mg cap Take 1 capsule by mouth once daily. - Aspirin 81 mg tab Take 1 tablet by mouth once daily. Take with food. Problem List As Of Date 12/08/2023 Noted Resolved Severe major depression with psychotic features*03/11/2005 03/10/2017 Other and unspecified hyperlipidemia [E78.5] 06/30/2006 01/25/2013 Tobacco abuse [Z72.0] 12/20/2010 Hyperlipidemia with target LDL less than 100 [E*01/25/2013 Non-alcoholic fatty liver disease [K76.0] 10/13/2014 Peripheral arterial disease (HCC) [I73.9] 03/06/2015 Diabetes mellitus with peripheral artery diseas*03/06/2015 Hyponatremia [E87.1] 03/17/2015 Controlled type 2 diabetes mellitus without com*05/11/2016 Chronic insomnia [F51.04] 02/11/2017 Recurrent major depressive disorder, in full re*03/10/2017 History of rectal polypectomy [Z98.890, Z87.19] 09/23/2017 Change in bowel habit [R19.4] 09/24/2017 Abdominal pain [R10.9] 09/24/2017 03/09/2018 Mucopurulent chronic bronchitis (HCC) [J41.1] 05/05/2018 Shoulder impingement syndrome, right [M75.41] 10/20/2018 Situational anxiety [F41.8] 10/20/2018 Left sided sciatica [M54.32] 12/24/2018 Cheek mass [R22.0] 12/24/2018 Premature atrial contraction [I49.1] 03/30/2019 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 CYCLOBENZAPRINE 5 MG TABLET 90 t* 0 12/08/2023 R (more content not included)... Normal [facility] CNPN Telephone (FAMPWS) DAVID ALDRICH ([id number]) 1960 F NFR Date Time Provider Department 12/08/23 LULU SWANSON [facility] During your visit today, we recorded the following information about you: Angeline Cornell, ZACH 12/08/2023 2:51 PM Signed Patient asking for Lulu Swanson's advise regarding her recent lung cancer screening results and the incidental finding. Pt reports her cardiology appt is not until 03/2024 and asking if Lulu thinks it is appropriate to wait that long? Patient aware that provider is out this week and will address when she returns. Please call patient with response. Thank you. Idania Devries, TYLER.[employer] 12/08/2023 3:23 PM Signed I don't think she has much of a choice as they are scheduling that far out. No availability. [facility] Vivien Dsouza MA 12/08/2023 5:25 PM Signed Pt advised to try and schedule at other locations to see if she can get sooner appt. She is nervous because she has a history of right carotid endarterectomy in 2012. Advised I will still forward message to Lulu and janessa to keep eye on to see if she gets in sooner Elaine Machuca, ZACH 12/22/2023 2:00 PM Signed Patient calls and states that she had gotten appointment up at [facility] which was sooner than the 03/15 appointment. Patient states that she cannot find a ride up to main campus. Patient is asking if she should get an appointment sooner than 03/15? Please review and advise, ZACH Martinez Jacqueline A, APRN.CANDACE 12/22/2023 2:26 PM Signed Did you check with [facility]? Much closer and maybe can get you in sooner? I know our cardiology down here in [place] is hard to get a timely appt. Angeline Escobar 12/23/2023 9:22 AM Signed Spoke with [facility] there next opening as of now if April 2024 Idania Devries APRN.CANDACE 12/25/2023 7:53 AM Signed They are very busy. That is no excuse. If she develops shortness of breath, chest pain, perfuse sweating, and or/ nausea and vomiting... go to ER. If she feels at all unstable, go to ER. That will allow access urgently. Keeley Barron LPN 12/25/2023 11:14 AM Signed Spoke with pt and information listed below given. Pt verbalizes understanding. Keeley Barron LPN Allergies As of Date: 12/08/2023 Noted Allergy Reaction ZOCOR (SIMVASTATIN) 04/24/2013 17 - Myalgia Date Reviewed: 2023 Reviewed by: Adwoa De Leon APRN.[employer] - Fully Assessed Reason for Visit: Patient Question [7417] Prescriptions as of 12/25/2023 - zolpidem (AMBIEN) 10 mg Take 1 tablet by mouth daily at bedtime for 30 days. - cyclobenzaprine (FLEXERIL) 5 mg tablet Take 1 tablet by mouth three times a day as needed. - lisinopril (ZESTRIL) 5 mg tablet Take 1 tablet by mouth once daily. - metFORMIN (GLUCOPHAGE) 500 mg tablet Take 1 tablet by mouth daily with dinner. - imipramine HCl (TOFRANIL) 50 mg tablet Take 3 tablets by mouth daily at bedtime. - albuterol HFA (VENTOLIN HFA) 90 mcg/actuation inhaler Inhale 2 Puffs as instructed every 4 hours as needed for wheezing/shortness of breath. - atorvastatin (LIPITOR) 20 mg tablet Take 1 tablet by mouth once daily. - blood sugar diagnostic (BLOOD GLUCOSE TEST) test strip Test blood sugar(s) 1 times daily. Dx: Type 2 DM - Controlled E11.9 Insulin: No - thiothixene (NAVANE) 1 mg capsule Take 2 capsules by mouth two times a day. - ibuprofen (MOTRIN) 800 mg tablet Take 1 tablet by mouth every 8 hours as needed for pain. Take with food. - buPROPion SR (WELLBUTRIN SR) 150 mg 12 hr tablet One pill by mouth once daily X 3 days, then increase to twice daily. Take second dose before 6PM. Try to stop smoking on day 5-7. - ondansetron orally disintegrating (ZOFRAN ODT) 4 mg disintegrating tablet Take 1 tablet by mouth every 8 hours as needed for nausea/vomiting. - omeprazole (PRILOSEC) 20 mg capsule Take 1 capsule by mouth daily before breakfast. 1/2 hr before meal. - Lancets lancets Test blood sugar(s) 1 times daily. Dx: Type 2 DM - Controlled E11.9 Insulin: No - polyethylene glycol 3350 (MIRALAX, GLYCOLAX) 17 gram/dose powder Use as directed for Miralax / Gatorade Bowel Prep Kit - Gatorade Sports Drink Use as directed for Miralax / Gatorade Bowel Prep Kit - Bisacodyl (DULCOLAX) 5 mg tab Use as directed for Miralax / Gatorade Bowel Prep Kit - busPIRone (BUSPAR) 5 mg tablet Take 1 tablet by mouth three times daily as needed. - Melatonin 5 mg cap Take 1 capsule by mouth once daily. - Aspirin 81 mg tab Take 1 tablet by mouth once daily. Take with food. Problem List As Of Date 12/08/2023 Noted Resolved Severe major depression with psychotic features*03/11/2005 03/10/2017 Other and unspecified hyperlipidemia [E78.5] 06/30/2006 01/25/2013 Tobacco abuse [Z72.0] 12/20/2010 Hyperlipidemia with target LDL less than 1 (more content not included)... Normal [facility] CT Chest for screening WO co ntraston 11-27-2023 IMPRESSION: LungRADS category: 0. LungRADS modifier: Significant other (S), coronary artery calcification, moderate or severe. LungRADS 0 reason: N/A. Recommendations: Additional lung cancer screening CT images and/or comparison to prior chest CT examinations is needed. Given suspected multifocal peribronchial inflammatory/infectious change, consider repeat CT in 3 months, and correlate with clinical presentation for consideration of any active process. Other actionable findings: Reference: [employer]. Lung CT Screening Reporting and Data System (Lung-RADS). Available at: http://www.acr.org/Quality- Safety/Resources/LungRADS Ug Designer: CARLA Transcribe Date/Time: Nov 27 2023 2:07P Dictated by : EJ LENTZ MD This examination was interpreted and the report reviewed and electronically signed by: EJ LENTZ MD on Nov 27 2023 2:25PM [facility] DIVISION OF RADIOLOGY * * *Final Report* * * DATE OF EXAM: Nov 27 2023 11:45AM [facility] 0562 - CT LUNG SCREEN [facility] / PROCEDURE REASON: multiple diagnoses * * * * Physician Interpretation * * * * EXAMINATION: CHEST CT WITHOUT CONTRAST (LOW-DOSE CT LUNG CANCER SCREENING PROTOCOL) CLINICAL HISTORY: Lung cancer LDCT screening ? absence of signs or symptoms of lung cancer. Technique: Spiral CT acquisition of the chest from the thoracic inlet to the upper abdomen without contrast. MQ: CTLCS_6 Patient characteristics: * Rchd-dy-Jgrkd: 1960; Age at exam: 63 years * Gender: Female * Lung Disease: Asymptomatic (no signs or symptoms of lung disease) * Number of Pack Years: 48 * Current smoker (=0) or Number of Years since Quit: 0 * Ordering provider and NPI: ADWOA DE LEON * Interpreting radiologist and NPI: Lisbeth [id number] Exam acquisition parameters: * Exam Date: 11/27/2023 11:45 AM * Site: [facility] * * CT System Property Utilization Manager: WEISSENHAUS * CT System Model: Sensation * Tube Current-Time (mA-sec): 27 * Peak Voltage (kV): 120V * Scan Time (sec): 8.87 * Scan Volume (z-length, cm): -23.15 * Pitch: 0.75 * Slice Thickness (mm): 1.5 * CT Dose-Length Product: 75 mGy*cm * CT Dose Index: 2.09mGy * CT Dose Reduction Method: Automated exposure control(AEC) and iterative recon COMPARISON: Type of study and date/time RESULT: Clustered peribronchial branching and nodular opacity within middle lobe images 143 through 1620, and in RIGHT lower lobe 163 through 188. No dominant nodule or howard consolidation, most nodules in size range 2 to 3 mm, some confluent opacities up to 6 x 3 mm for example on image 167. Few additional scattered tiny opacities, for example within RIGHT upper lobe image 83 measuring 2 mm, and measuring 3 mm LEFT lower lobe image 161. Other findings: Mild apical predominant emphysema. Mild LEFT atrial dilation. Mediastinal lymph nodes which are subcentimeter to borderline enlarged. Partial fatty atrophy RIGHT periscapular muscles. Degenerative changes thoracic spine. Incidental coronary calcium as automatically processed and calculated using AI: Total Coronary Calcium Score = [100+] Agatston Units Percentile Rank (age and gender matched relative to reference population): [75th-100th] percentile* [* https://www.bueno-nhlbi.org/ calcium/input.aspx] Localizer images: Mild curvature and degenerative change lumbar spine DIVISION [facility] * * *Final Report* * * DATE OF EXAM: Nov 27 2023 11:45AM [facility] 0562 - CT LUNG SCREEN WO IVCON / PROCEDURE REASON: multiple diagnoses * * * * Physician Interpretation * * * * EXAMINATION: CHEST CT WITHOUT CONTRAST (LOW-DOSE CT LUNG CANCER SCREENING PROTOCOL) CLINICAL HISTORY: Lung cancer LDCT screening ? absence of signs or symptoms of lung cancer. Technique: Spiral CT acquisition of the chest from the thoracic inlet to the upper abdomen without contrast. MQ: CTLCS_6 Patient characteristics: * Zvii-cp-Twros: 1960; Age at exam: 63 years * Gender: Female * Lung Disease: Asymptomatic (no signs or symptoms of lung disease) * Number of Pack Years: 48 * Current smoker (=0) or Number of Years since Quit: 0 * Ordering provider and NPI: ADWOA DE LEON * Interpreting radiologist and NPI: Lisbeth [id number] Exam acquisition parameters: * Exam Date: 11/27/2023 11:45 AM * Site: [facility] * * CT System Property Utilization Manager: Siemens * CT System Model: Sensation * Tube Current-Time (mA-sec): 27 * Peak Voltage (kV): 120V * Scan Time (sec): 8.87 * Scan Volume (z-length, cm): -23.15 * Pitch: 0.75 * Slice Thickness (mm): 1.5 * CT Dose-Length Product: 75 mGy*cm * CT Dose Index: 2.09mGy * CT Dose Reduction Method: Automated exposure control(AEC) and iterative recon COMPARISON: Type of study and date/time RESULT: Clustered peribronchial branching and nodular opacity within middle lobe images 143 through 1620, and in RIGHT lower lobe 163 through 188. No dominant nodule or howard consolidation, most nodules in size range 2 to 3 mm, some confluent opacities up to 6 x 3 mm for example on image 167. Few additional scattered tiny opacities, for example within RIGHT upper lobe image 83 measuring 2 mm, and measuring 3 mm LEFT lower lobe image 161. Other findings: Mild apical predominant emphysema. Mild LEFT atrial dilation. Mediastinal lymph nodes which are subcentimeter to borderline enlarged. Partial fatty atrophy RIGHT periscapular muscles. Degenerative changes thoracic spine. Incidental coronary calcium as automatically processed and calculated using AI: Total Coronary Calcium Score = [100+] Agatston Units Percentile Rank (age and gender matched relative to reference population): [75th-100th] percentile* [* https://www.bueno-nhlbi.org/ calcium/input.aspx] Localizer images: Mild curvature and degenerative change lumbar spine IMPRESSION IMPRESSION: LungRADS category: 0. LungRADS modifier: Significant other (S), coronary artery calcification, moderate or severe. LungRADS 0 reason: N/A. Recommendations: Additional lung cancer screening CT images and/or comparison to prior chest CT examinations is needed. Given suspected multifocal peribronchial inflammatory/infectious change, consider repeat CT in 3 months, and correlate with clinical presentation for consideration of any active process. Other actionable findings: Reference: [employer]. Lung CT Screening Reporting and Data System (Lung-RADS). Available at: http://www.acr.org/Quality- Safety/Resources/LungRADS Ug Designer: CARLA Transcribe Date/Time: Nov 27 2023 2:07P Dictated by : EJ LENTZ MD This examination was interpreted and the report reviewed and electronically signed by: EJ LENTZ MD on Nov 27 2023 2:25PM EST [facility] Radiology Study observation (narrative) [facility] CT Chest for screening WO co ntrastOrdered By: [facility] Provider on 11-27-2023 [facility] XR Hand - left PA and Latera l and Obliqueon 10-10-2023 IMPRESSION: No acute osseous abnormality Ug Designer: CARLA Transcribe Date/Time: Oct 10 2023 2:16P Dictated by : LUCIANO NOYOLA MD This examination was interpreted and the report reviewed and electronically signed by: LUCIANO NOYOLA MD on Oct 10 2023 2:18PM [facility] DIVISION OF RADIOLOGY * * *Final Report* * * DATE OF EXAM: Oct 10 2023 1:42PM [facility]OX [id number] - XR HAND 3V PA/LAT/OBL LT / PROCEDURE REASON: Pain * * * * Physician Interpretation * * * * EXAMINATION: XR HAND 3V PA/LAT/OBL LT CLINICAL HISTORY: Left hand pain Technique: XR HAND 3V PA/LAT/OBL LT -- LEFT with 3 views on 3 images Comparison: None RESULT: No acute fracture or dislocation. Joint spaces are maintained. DIVISION OF RADIOLOGY Provider, Marcus araujo [place] - 10/10/2023 * * *Final Report* * * DATE OF EXAM: Oct 10 2023 1:42PM [facility] [id number] - XR HAND 3V PA/LAT/OBL LT / PROCEDURE REASON: Pain * * * * Physician Interpretation * * * * EXAMINATION: XR HAND 3V PA/LAT/OBL LT CLINICAL HISTORY: Left hand pain Technique: XR HAND 3V PA/LAT/OBL LT -- LEFT with 3 views on 3 images Comparison: None RESULT: No acute fracture or dislocation. Joint spaces are maintained. IMPRESSION IMPRESSION: No acute osseous abnormality Ug Designer: CARLA Transcribe Date/Time: Oct 10 2023 2:16P Dictated by : LUCIANO NOYOLA MD This examination was interpreted and the report reviewed and electronically signed by: LUCIANO NOYOLA MD on Oct 10 2023 2:18PM EST [facility] Radiology Study observation (narrative) [facility] XR Hand - left PA and Latera l and ObliqueOrdered By: [facility] Provider on 10-10-2023 [facility] ECG COMPLETEon 04-29-2023 Atrial Rate 70 BPM [facility] Calculated P Linn 68 degrees [facility] Calculated R Linn -40 degrees [facility] Calculated T [place]inn 48 degrees [facility] P[facility] Interval 174 ms [facility] QRS Duration 92 ms [facility] QT Interval 408 ms [facility] QTC Calculation (Bazett) 440 ms [facility] CASE MANAGEMon 10-24-2022 CASE MANAGEM HNO ID: [id number] Author: Seda Castellanos RN Service: ? Author Type: Registered Nurse Type: Jamila Mgt Progress Note Filed: 10/25/2022 2:09 PM Note Text: CARE MANAGEMENT PROGRESS NOTE SERVICE DATE: 10/25/2022 SERVICE TIME: 2:06 PM LOS: 5 days Took call from the patient, she stated no one will take her to her appointment today at [facility] for her IV atb's and she is worried about her PICC line. CM told the patient she needs to return to the Emergency room. The patient stated she will have someone bring her to the ED "tomorrow". CM told the patient she needs to go to the ED today. department will continue to follow for DC needs. SIGNATURE: Seda Castellanos RN PATIENT NAME: David Aldrich DATE: October 25, 2022 TIME: 2:06 PM PAGER/CONTACT #: [phone] [facility] CASE MANAGEM HNO ID: [id number] Author: Seda Castellanso RN Service: ? Author Type: Registered Nurse Type: Jamila Mgt Progress Note Filed: 10/24/2022 2:11 PM Note Text: CARE MANAGEMENT DISCHARGE NOTE SERVICE DATE: October 24, 2022 SERVICE TIME: 2:03 PM Admission Date: 10/19/2022 LOS: 5 days Discharge Arrangement Discharge Arrangement: Home with Relative Provider Name: [facility] Caregiver Assessment Caregiver is ready, willing and able to meet the patient's needs as recommended by the inter-professional team: Yes Name of Caregiver: Son Transportation Arrangements Transportation Arrangements: Car- Friend to transport Handoff Communication: Handoff to: Primary Care Physician Primary Care Physician Name/Phone: Lulu Swanson, [phone] Additional Information: Discharge order written for today. Landon Marino asked if the patient can come to their site on 10/25/22 at 12;30 instead of 1:00, met with the patient and updated her on the 12:30 appointment time. Landon Marino noted their Nurse will be calling the patient prior to her appointment. Patient made aware. Dr. Miller aware the patient will be discharging today after her 2:00 dose and will be missing doses prior to her appointment tomorrow. AVS sent to [facility]. Discharge Information Row Name Admission (Current) from 10/19/[address] Medical Follow-Up Appointment Specialty IV antibiotic teaching Provider Name [facility] Address [address] [place] [address], [place] [address] Appointment Date 10/25/22 Appointment Time 12:30 pm SIGNATURE: Seda Castellanos RN PATIENT NAME: David Aldrich DATE: October 24, 2022 TIME: 2:03 PM CONTACT #: [phone] [facility] CASE MANAGEM HNO ID: [id number] Author: Seda Castellanos RN Service: ? Author Type: Registered Nurse Type: Jamila Mgt Progress Note Filed: 10/24/2022 11:59 AM Note Text: CARE MANAGEMENT PROGRESS NOTE SERVICE DATE: 10/24/2022 SERVICE TIME: 8:20 AM LOS: 5 days Needs Prior to Discharge: Other: See Comment (Accepting HHC agency) Landon Marino is still unable to find an accepting C agency for the patient. Updated the care team. PICC line ordered. CM department will continue to follow for DC needs. 10;42 pm- Met with the patient, discussed discharge to SNF. Patient refusing SNF. [facility] is checking to see if one of their nurses is available for teaching and if the patient is agreeable she can come to their [facility] site once a week for PICC care and blood work. Updated the patient, she is agreeable to go to [place] once a week. Updated [facility]. 11:57am- [facility] has an appointment tomorrow in their [facility] at 1:00. Discussed with the patient, she is agreeable. SIGNATURE: Seda Castellanos RN PATIENT NAME: David Aldrich DATE: October 24, 2022 TIME: 8:20 AM PAGER/CONTACT #: [phone] [facility] CNCOon 10-24-2022 CNCO Letter Text [facility] CNDSon 10-24-2022 CNDS HNO ID: [id number] Author: Beni Miller MD Service: Hospital Medicine Author Type: Physician Type: Discharge Summary Filed: 10/24/2022 12:20 PM Note Text: DISCHARGE SUMMARY PATIENT NAME: David Aldrich Code Status: Not on file Highest Readmission Risk Score: 15 The 30 day readmissions risk score is derived from an internally validated risk model which evaluates patient level characteristics, utilization history, medication orders and lab results up until the day of discharge. Patients with a score of 40 or above are considered highest risk for readmission. Specific patient level drivers will be listed at the bottom of the summary. Admission Information Admission Information ADMIT DATE: 10/19/2022 DISCHARGE DATE: 10/24/22 MY DOCTORS AND MEDICAL TEAM: My Main Hospital Doctor: Beni Miller MD Primary Care Provider: Lulu Swanson APRN.[employer] My Medical Team Members: Treatment Team: Attending Provider: Beni Miller MD Consulting: America Braswell MD Consulting: López Ariza MD Consulting: Doug Quiroz MD MY CONDITION AT DISCHARGE: Stable REASON I WAS IN THE HOSPITAL: Septic arthritis SUMMARY OF WHAT HAPPENED WHILE I WAS IN THE HOSPITAL: Patient was admitted to hospital for management of septic arthritis. She underwent arthroscopic washout of the right knee on 10/19 and the cultures were positive for staph aureus MSSA. ID was consulted and patient was started on cefazolin according to the sensitivity results and will continue antibiotics for total of 6 weeks. Blood cultures were negative and echo did not show any evidence of infective endocarditis. Patient will need close follow-up with infectious disease and orthopedic outpatient. PT OT evaluated the patient and recommended SNF however patient refused and will be discharged home with home health care. Of note patient's blood pressure was low normal and nifedipine was stopped. Arrangements have been made by case worker for IV antibiotics at home. OTHER PROBLEMS/DIAGNOSIS: Principal Problem: Septic arthritis (HCC) Active Problems: Controlled type 2 diabetes mellitus without complication (HCC) Staphylococcal arthritis of right knee (HCC) Primary hypertension Familial hypercholesterolemia Nicotine use disorder, F17.2 Resolved Problems: * No resolved hospital problems. * OPERATIONS PERFORMED WHILE IN THE HOSPITAL: Arthroscopic washout of the right knee IMPORTANT TEST/PROCEDURES: No procedures performed TEST RESULTS NOT AVAILABLE AT THIS TIME: No pending results Discharge Disposition Discharge Disposition: Home With Self Care Activity When You Leave the Hospital Limited to: WBAT Diet Instructions Resume your pre-hospital diet Additional Provider to Provider Information: No notes on file Active Hospital Problems as of 10/24/2022 Noted - Resolved POA Hospital Controlled type 2 diabetes mellitus without complication (HCC) 05/11/2016 - Present Yes Familial hypercholesterolemia 10/19/2022 - Present Unknown Nicotine use disorder, F17.2 10/22/2022 - Present Unknown Primary hypertension 10/19/2022 - Present Unknown * (Principal) Septic arthritis (HCC) 10/21/2022 - Present Yes Staphylococcal arthritis of right knee (HCC) 10/19/2022 - Present Unknown Resolved Hospital Problems as of 10/24/2022 None Transitions of Care Critical Issues: SPECIALIST FOLLOW-UP: orhtopedic and Infectius disease AREVALO MEDICATION CHANGES: cefazolin for total of 6 weeks, stop nifedipine LABS AND PROCEDURES PENDING AT DISCHARGE: No pending results. FOLLOW-UP APPOINTMENTS ALREADY SCHEDULED WITH A [facility] PROVIDER: Future Appointments Date Time Provider Department Center 10/25/2022 11:00 AM Gabe Hall V, DO [facility] [place] 11/04/2022 1:30 PM Arely Foley PA-C [facility] [place] Discharge Information Row Name Admission (Current) from 10/19/[address] Medical Follow-Up Appointment Specialty IV antibiotic teaching Provider Name [facility] Address [address] [place] [address], [place] [address] Appointment Date 10/25/22 Appointment Time 1:00 pm ALLERGIES Allergen Reactions Zocor [Simvastatin] Myalgia DISCHARGE MEDICATION: Medication List START taking these medications HYDROcodone-acetaminophen 5-325 mg per tablet Commonly known as: NORCO Take 1 tablet by mouth every 8 hours as needed for up to 5 days. CHANGE how you take these medications zolpidem 10 mg Commonly known as: AMBIEN Take 1 tablet by mouth daily at bedtime for 30 days. Do not start before March 16, 2022. What changed: Another medication with the same name was removed. Continue taking this medication, and follow the directions you see here. CONTINUE taking these medications albuterol HFA 90 mcg/actuation inhaler Commonly known as: VENTOLIN HFA Inhale 2 Puffs as instructed every 4 hours as needed for wheezing/shortness (more content not included)... [facility] CONSULT PROGon 10-24-2022 CONSULT PROG HNO ID: [id number] Author: López Ariza MD Service: Infectious Disease Author Type: Physician Type: Consult Progress Note Filed: 10/24/2022 8:18 PM Note Text: INFECTIOUS DISEASE PROGRESS NOTE Patient Name: David Aldrich INTERVAL HISTORY: No fevers. PICC line placed this morning. Patient resting in bed, NAD. Reports that she is feeling well. Eager for discharge. Denies any new complaints. ROS checked in details. All qs answered. No AM labs BCX NG x 2 days Patient Active Hospital Problem List: Septic arthritis (HCC) (10/21/2022) Controlled type 2 diabetes mellitus without complication (HCC) (05/11/2016) Staphylococcal arthritis of right knee (HCC) (10/19/2022) Primary hypertension (10/19/2022) Familial hypercholesterolemia (10/19/2022) Nicotine use disorder, F17.2 (10/22/2022) ASSESSMENT: R Knee Septic Arthritis -s/p arthroscopy wash out (10/19/22) -operative report: copious amounts of purulent joint fluid was immediately identified Leukocytosis -WBC 11.89 -Scr 0.76 -CRP 9.2 -ESR 78 -R Knee Synovial Fluid: cloudy, 116,000 RBC, 95,865 Total Nucleated Cells, 96% Neut -10/16 R Knee Synovial Fluid Cx: +MSSA - prelim -10/18 R Knee Synovial Fluid Cx: +MSSA - prelim -10/19 R Knee Synovial Fluid Cx: +MSSA - prelim -10/21 Blood Cx: NGTD - prelim T2DM HTN HLD Depression RECOMMENDATIONS: C/W IV Ancef x 6 weeks Reviewed Echo. Will need JOVANA if patient has positive blood cultures to definitely rule out SBE but may not change treatment unless large vegetation or abscess detected. Follow Synovial Fluid Cultures, +MSSA Follow Ortho Recs Monitor temps/counts COPAT in chart PICC line established MEDICATIONS: reviewed. Current Facility-Administered Medications Medication Dose Route Frequency busPIRone 5 mg tab(s) (BUSPAR) 5 mg ORAL TID PRN ondansetron orally disintegrating 4 mg tab(s) (ZOFRAN ODT) 4 mg ORAL q 8 H PRN metFORMIN 500 mg tab(s) (GLUCOPHAGE) 500 mg ORAL DAILY wDINNER atorvastatin 20 mg tab(s) (LIPITOR) 20 mg ORAL DAILY lisinopril 5 mg tab(s) (ZESTRIL) 5 mg ORAL DAILY thiothixene 2 mg cap(s) (NAVANE) 2 mg ORAL BID albuterol 2.5 mg /3 mL (0.083 %) 2.5 mg (PROVENTIL) 3 mL INHALATION q 4 H PRN buPROPion SR 150 mg tab(s) (ZYBAN SR; WELLBUTRIN SR) 150 mg ORAL BID ibuprofen 800 mg tab(s) (MOTRIN) 800 mg ORAL q [address] 20 mg tab(s) (PROTONIX) 20 mg ORAL BEFORE BREAKFAST DAILY zolpidem 10 mg tab(s) (AMBIEN) 10 mg ORAL AT BEDTIME PRN imipramine HCl 150 mg tab(s) (TOFRANIL) 150 mg ORAL AT BEDTIME HYDROcodone 5 mg - acetaminophen 325 mg tablet (NORCO) 1 tablet ORAL q 4 H PRN aspirin 81 mg chewable tab(s) 81 mg ORAL DAILY dextrose 40 % 15 g 15 g ORAL PRN Or glucagon 1 mg injection 1 mg INTRAMUSCULAR PRN Or dextrose 10% iv bolus 12.5 g INTRAVENOUS PRN insulin lispro injection (rapid acting) (HumaLOG) SUBCUTANEOUS w MEALS insulin lispro injection (rapid acting) (HumaLOG) SUBCUTANEOUS AT BEDTIME sodium chloride 0.9 % (flush) 2-10 mL (BD POSIFLUSH) 2-10 mL INTRAVENOUS DIRECTED PRN And perflutren lipid microspheres 1.1 mg/mL 1.3 mL injection (DEFINITY) 1.3 mL INTRAVENOUS DIRECTED PRN ceFAZolin iv piggyback 2 g in D5W (iso-osmotic) 100 mL (ANCEF) 2 g INTRAVENOUS q 8 HR NaCl 0.9% iv flush bag 20 mL INTRAVENOUS PRN sodium chloride 0.9 % (flush) 10 mL (BD POSIFLUSH) 10 mL INTRAVENOUS q 12 H sodium chloride 0.9 % (flush) 20 mL (BD POSIFLUSH) 20 mL INTRAVENOUS PRN enoxaparin 40 mg injection (LOVENOX) 40 mg SUBCUTANEOUS q 24 H PHYSICAL EXAM: Vital signs: BP 112/57 Pulse 72 Temp 36.6 ?C (97.9 ?F) (Oral) Resp 16 Ht 154.9 cm (5' 1") Wt 66.7 kg (147 lb) LMP 11/13/2009 SpO2 95% BMI 27.78 kg/m? Temp (24hrs), Av.1 ?C (98.8 ?F), Min:37 ?C (98.6 ?F), Max:37.1 ?C (98.8 ?F) General: alert, oriented, NAD Lungs: bilaterally clear to auscultation Heart: regular rate and rhythm Abdomen: soft, non tender, non distended, BS+ Extremities: no edema No rashes, post-op dressing C/D/I No joint inflammation Neck supple Lines ok. PICC RUE C/D/I No CVAT Lines, Drains, and Airways Line Duration Peripheral 10/23/22 0445 [facility] Short Right Forearm 20 Gauge 1 day Labs: Microbiology data: reviewed Imaging data: reviewed [facility] [phone] October 24, 2022 10:52 AM I personally saw and evaluated the patient. I reviewed the PROCESS OPERATOR Hx, exam and MDM and I agree with the PROCESS OPERATOR assessment and plan unless otherwise addended above. López Ariza MD [phone] 10/24/2022 4:08 PM [facility] CONSULT PROG HNO ID: [id number] Author: Stephanie Sheets PA-C Service: Orthopaedic Surgery Author Type: Physician Rn Staffing Type: Consult Progress Note Filed: 10/24/2022 8:08 AM Note Text: POSTOP NOTE ORTHOPAEDIC SURGERY SERVICE DATE: 10/24/2022 SERVICE TIME: 8:06 AM IMPRESSION/PLAN: S/P Procedure(s) (LRB): ARTHROSCOPY KNEE FOR INFECTION, LAVAGE AND DRAINAGE (Right) on 10/19/2022 Physical Therapy recommending Home PT WBAT RLE Pain control Cultures: MSSA Antibiotics per ID. CoPAT on chart. Case Management for discharge planning. Awaiting PICC line. Follow up in clinic 2 weeks post op Plan of care discussed with: Patient. Patient Active Hospital Problem List: Septic arthritis (HCC) (10/21/2022) Controlled type 2 diabetes mellitus without complication (HCC) (05/11/2016) Staphylococcal arthritis of right knee (HCC) (10/19/2022) Primary hypertension (10/19/2022) Familial hypercholesterolemia (10/19/2022) Nicotine use disorder, F17.2 (10/22/2022) POST OPERATIVE COMPLICATIONS: Complicated by uneventful/none SUBJECTIVE: No overnight issues. Well Controlled knee pain. Denies new ortho complaints. Patient is eager to go home. OBJECTIVE: VITAL SIGNS: BP 112/57 Pulse 72 Temp 36.6 ?C (97.9 ?F) (Oral) Resp 16 Ht 154.9 cm (5' 1") Wt 66.7 kg (147 lb) LMP 11/13/2009 SpO2 95% BMI 27.78 kg/m? INTAKE AND OUTPUT: Intake/Output Summary (Last 24 hours) at 10/24/2022 0806 Last data filed at 10/23/2022 1800 Gross per 24 hour Intake 740 ml Output -- Net 740 ml LABS: Hemoglobin Date Value Ref Range Status 10/18/2022 12.4 11.5 - 15.5 g/dL Final 09/16/2022 14.6 11.5 - 15.5 g/dL Final Hematocrit Date Value Ref Range Status 10/18/2022 35.8 (L) 36.0 - 46.0 % Final 09/16/2022 45.0 36.0 - 46.0 % Final Platelet Count Date Value Ref Range Status 10/18/2022 537 (H) 150 - 400 k/uL Final 09/16/2022 337 150 - 400 k/uL Final WBC Date Value Ref Range Status 10/18/2022 11.89 (H) 3.70 - 11.00 k/uL Final 09/16/2022 11.42 (H) 3.70 - 11.00 k/uL Final Creatinine Date Value Ref Range Status 10/20/2022 0.76 0.58 - 0.96 mg/dL Final 09/16/2022 0.82 0.58 - 0.96 mg/dL Final Potassium Date Value Ref Range Status 09/16/2022 4.3 3.7 - 5.1 mmol/L Final 01/25/2021 4.6 3.7 - 5.1 mmol/L Final VTE Prophylaxis: Active VTE Risk Category Order: Active VTE Medication Orders: Anticoagulant AND Antiplatelet Medications (From admission, onward) Start Dose Route Frequency Last Action Ordered Stop 10/23/22 1600 enoxaparin 40 mg injection (LOVENOX) (enoxaparin injection (LOVENOX)) 40 mg SUBCUTANEOUS EVERY 24 HOURS Given, 10/23 1626 10/23/22 1525 -- 10/19/22 1600 aspirin 81 mg chewable tab(s) 81 mg ORAL DAILY Given, 10/23 0817 10/19/22 1539 -- Active VTE Prophylaxis Orders: 10/21/22 0945 PNEUMATIC COMPRESSION STOCKINGS ([place], [place]) PHYSICAL EXAMINATION: Right Lower Extremity: Dorsalis pedis pulses palpable. Posterior tibial pulses palpable. Dorsi flexion 5/5. Plantar flexion 5/5. Extensor hallucis extension: 5/5. Sensory intact to light touch L1-S1. Dressing clean, dry, and intact. Surgical site no drainage. Problem Review and Assessment: Patient monitored, no new events overnight DATA: Diagnostic tests reviewed for today's visit: Most recent labs and imaging results. SIGNATURE: Stephanie Sheets PA-C PATIENT NAME: David Aldrich DATE: October 24, 2022 TIME: 8:06 AM [facility] NURSING PROGon 10-24-2022 NURSING PROG HNO ID: [id number] Author: Kell Seth RN Service: Nursing Author Type: Registered Nurse Type: Nursing Progress Note Filed: 10/24/2022 4:12 PM Note Text: Other: 1615- discharge instructions, prescription for pain medications and PICC line information card provided to patient. Opportunities for questions provided. [facility] NURSING PROG HNO ID: [id number] Author: Jelena Ryan, RN Service: PICC Team Author Type: Registered Nurse Type: Nursing Progress Note Filed: 10/24/2022 9:29 AM Note Text: PATIENT EDUCATION TOPIC: PROCEDURE / SURGERY: PICC insertion PATIENT NAME: David Aldrich PATIENT LOCATION: [place] [id number] READINESS TO LEARN COGNITIVE ABILITY: Alert and oriented MOTIVATION TO LEARN: Interested FAMILY SUPPORT: Unable to assess - Family not present INSTRUCTION PROVIDED TO: Patient PATIENT LEARNS BEST BY: Multiple Methods FACTORS AFFECTING LEARNING: None PHYSICAL LIMITATIONS AFFECTING LEARNING: None LEARNING RESPONSE DIAGNOSIS: ADULT: septic arthritis PATIENT/FAMILY RESPONSE: Verbalizes understanding of: POST-PROCEDURE INSTRUCTIONS-Correct actions to take to reduce post procedure complications PRE-PROCEDURE INSTRUCTIONS-Correct action to take to follow pre-procedure instructions METHOD OF INSTRUCTION: Individual instruction FOLLOW-UP PLAN: Complete - No need for follow-up INSTRUCTIONAL AIDS USED: NA SUPPLEMENTAL MATERIAL PROVIDED TO PATIENT: None REFERRAL (RECOMMENDATION): None Electronically Signed By: Jelena Ryan [facility] THERAPY NTon 10-24-2022 THERAPY NT HNO ID: [id number] Author: Colby Aragon PTA Service: Physical Therapy Author Type: Tow Car Driver Type: Therapy (PT/OT/Speech/Resp) Filed: 10/24/2022 2:09 PM Note Text: Attestation signed by Asha Clarke PT at 10/25/2022 11:58 AM I reviewed and agree with the documentation corresponding to this therapy visit. SIGNATURE: Asha Clarke PT DATE: October 25, 2022 TIME: 11:58 AM Physical Therapy Treatment SERVICE DATE: 10/24/2022 SERVICE TIME: 1343 to 1354 ROOM: [id number]) Total Joint Replacement Discharge Readiness: Cleared from Physical Therapy Recommended Discharge Disposition: Home PT Recommended Discharge Disposition Comments: To increase strength, endurance and safety awareness to reduce risk of falls with functional mobility Recommended Discharge Disposition Due to: Patient requires daily, facility-based rehabilitation from at least one discipline due to:, ADL impairment resulting in caregiver dependence, anticipate community discharge/previous community dweller, decline in functional status requiring daily skilled care, deficits affecting dominant side, deficits affecting non-dominant side, ongoing intervention of multiple therapy disciplines Anticipated Discharge Needs: Physical Assist at Home, Supervision at Home Physical Assist at Home for: Cleaning, Laundry, Meals, Stairs, Safety, Shopping, Transportation Supervision at Home due to: Other: See Comment (initially for safety) Recommended Discharge Equipment: Wheeled Walker PT 6 Clicks Score: 19 Precautions/Activity Restrictions: Diabetic, Fall Risk, Lines/Tubes/Drains, Weight Bearing Restrictions Precaution/Activity Restriction Comments: standard Extremity With Weight Bearing Restricted: Right Lower Extremity Right Lower Extremity Weight Bearing Status: WBAT Current Hospital Course: s/p ARTHROSCOPY KNEE SYNOVECTOMY MAJOR (Right) Reason for Hospital Admission: Dx: Septic arthritis of knee, right Relevant Past Medical History: DM ,PAD, HLD, HTN, Majot depressive disorder Response to Therapy Interventions: Good Participation in Activities, Improved Tolerance for Activity, On-Track to Achieve Discharge Goals, Multiple Ongoing Medical Issues, Pain, Requires Additional Time to Complete Activities Assessment Comments: Limited session as patient refusing activities away from bedside and reports pain and fatigue from yesterdays session. Wheeled walker provided for patient DC Physical Therapy Problem List: Education Deficit, Edema, Pain, Safety Deficits, Impaired Self Care, Decreased Activity Tolerance, Decreased Range Of Motion, Decreased Strength, Functional Mobility Impairment, Balance Impaired Treatment Interventions: Education, Self Care / Home Management, Energy Conservation Training, Joint Mobility, Strengthening, Functional Mobility Training, Balance Training, Edema Management, Pain Management Patient / Caregiver has been evaluated by Physical Therapy and it has been determined that the patient would benefit from durable medical equipment (DME) to help with gait, transfers and functional mobility around home. The DME wheeled walker has been sized based on the patients height and weight and issued this date. Education regarding the use of the DME has been provided to the patient/caregiver through verbal / written instruction, images and/or demonstration. Patient appeared to be able to demonstrate understanding of education provided this date. Patient/ caregiver given freedom of choice and verbally agrees to have the recommended DME issued through provider contracted by [facility]. 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 Performs own grocery shopping Baseline Cognition: Oriented to self, Oriented to place, Oriented to time Subjective: Patient states that she doesn't feel up to much CURRENT FUNCTIONAL STATUS: Most recent performance Current Functional Mobility Assist Level Additional Information Rolling Supine to Sit Stand By Assistance, Additional Information to L side of bed per pt preference, HOB flat, no use of bed rails; minimal verbal, visual cues for goal of task, sequencing with good follow through overall Sit to Supine Contact Guar (more content not included)... [facility] CASE MANAGEMon 10-23-2022 CASE MANAGEM HNO ID: [id number] Author: Seda Castellanos RN Service: ? Author Type: Registered Nurse Type: Care Mgt Progress Note Filed: 10/23/2022 9:00 AM Note Text: CARE MANAGEMENT PROGRESS NOTE SERVICE DATE: 10/23/2022 SERVICE TIME: 8:58 AM LOS: 4 days Needs Prior to Discharge: To Be Determined Updated Copat in Epic sent to [facility], they are still working on trying to get an C agency. ECHO ordered. CM department will continue to follow for DC needs. SIGNATURE: Seda Castellanos RN PATIENT NAME: David Aldrich DATE: October 23, 2022 TIME: 8:58 AM PAGER/CONTACT #: [phone] [facility] CONSULT PROGon 10-23-2022 CONSULT PROG HNO ID: [id number] Author: López Ariza MD Service: Infectious Disease Author Type: Physician Type: Consult Progress Note Filed: 10/24/2022 8:01 AM Note Text: INFECTIOUS DISEASE PROGRESS NOTE Patient Name: David Aldrich INTERVAL HISTORY: No fevers. Patient resting in bed, NAD. Reports that she is feeling well. Denies any current complaints. ROS checked in details. All qs answered. No AM labs BCX NG x 1 day Patient Active Hospital Problem List: Septic arthritis ([facility]) (10/21/2022) Controlled type 2 diabetes mellitus without complication ([facility]) (05/11/2016) Staphylococcal arthritis of right knee ([facility]) (10/19/2022) Primary hypertension (10/19/2022) Familial hypercholesterolemia (10/19/2022) Nicotine use disorder, F17.2 (10/22/2022) ASSESSMENT: R Knee Septic Arthritis -s/p arthroscopy wash out (10/19/22) -operative report: copious amounts of purulent joint fluid was immediately identified Leukocytosis -WBC 11.89 -Scr 0.76 -CRP 9.2 -ESR 78 -R Knee Synovial Fluid: cloudy, 116,000 RBC, 95,865 Total Nucleated Cells, 96% Neut -10/16 R Knee Synovial Fluid Cx: +MSSA - prelim -10/18 R Knee Synovial Fluid Cx: +MSSA - prelim -10/19 R Knee Synovial Fluid Cx: +MSSA - prelim -10/21 Blood Cx: NGTD - prelim T2DM HTN HLD Depression RECOMMENDATIONS: C/W IV Ancef x 6 weeks Reviewed Echo. Will need JOVANA if patient has positive blood cultures to definitely rule out SBE but may not change treatment unless large vegetation or abscess detected. Follow Synovial Fluid Cultures, +MSSA Follow Ortho Recs Monitor temps/counts COPAT in chart May order PICC once blood cultures are cleared x 48 hours MEDICATIONS: reviewed. Current Facility-Administered Medications Medication Dose Route Frequency busPIRone 5 mg tab(s) (BUSPAR) 5 mg ORAL TID PRN ondansetron orally disintegrating 4 mg tab(s) (ZOFRAN ODT) 4 mg ORAL q 8 H PRN metFORMIN 500 mg tab(s) (GLUCOPHAGE) 500 mg ORAL DAILY wDINNER atorvastatin 20 mg tab(s) (LIPITOR) 20 mg ORAL DAILY lisinopril 5 mg tab(s) (ZESTRIL) 5 mg ORAL DAILY thiothixene 2 mg cap(s) (NAVANE) 2 mg ORAL BID albuterol 2.5 mg /3 mL (0.083 %) 2.5 mg (PROVENTIL) 3 mL INHALATION q 4 H PRN NIFEdipine ER 30 mg tab(s) (PROCARDIA XL) 30 mg ORAL DAILY buPROPion SR 150 mg tab(s) (ZYBAN SR; WELLBUTRIN SR) 150 mg ORAL BID ibuprofen 800 mg tab(s) (MOTRIN) 800 mg ORAL q [address] 20 mg tab(s) (PROTONIX) 20 mg ORAL BEFORE BREAKFAST DAILY zolpidem 10 mg tab(s) (AMBIEN) 10 mg ORAL AT BEDTIME PRN imipramine HCl 150 mg tab(s) (TOFRANIL) 150 mg ORAL AT BEDTIME HYDROcodone 5 mg - acetaminophen 325 mg tablet (NORCO) 1 tablet ORAL q 4 H PRN aspirin 81 mg chewable tab(s) 81 mg ORAL DAILY dextrose 40 % 15 g 15 g ORAL PRN Or glucagon 1 mg injection 1 mg INTRAMUSCULAR PRN Or dextrose 10% iv bolus 12.5 g INTRAVENOUS PRN insulin lispro injection (rapid acting) (HumaLOG) SUBCUTANEOUS w MEALS insulin lispro injection (rapid acting) (HumaLOG) SUBCUTANEOUS AT BEDTIME sodium chloride 0.9 % (flush) 2-10 mL (BD POSIFLUSH) 2-10 mL INTRAVENOUS DIRECTED PRN And perflutren lipid microspheres 1.1 mg/mL 1.3 mL injection (DEFINITY) 1.3 mL INTRAVENOUS DIRECTED PRN ceFAZolin iv piggyback 2 g in D5W (iso-osmotic) 100 mL (ANCEF) 2 g INTRAVENOUS q 8 HR NaCl 0.9% iv flush bag 20 mL INTRAVENOUS PRN PHYSICAL EXAM: Vital signs: BP (!) 111/42 Pulse (!) 53 Temp 36.9 ?C (98.4 ?F) (Oral) Resp 12 Ht 154.9 cm (5' 1") Wt 66.7 kg (147 lb) LMP 11/13/2009 SpO2 95% BMI 27.78 kg/m? Temp (24hrs), Av.1 ?C (98.8 ?F), Min:37 ?C (98.6 ?F), Max:37.1 ?C (98.8 ?F) General: alert, oriented, NAD Lungs: bilaterally clear to auscultation Heart: regular rate and rhythm Abdomen: soft, non tender, non distended, BS+ Extremities: no edema No rashes, post-op dressing C/D/I No joint inflammation Neck supple Lines ok No CVAT Lines, Drains, and Airways Line Duration Peripheral 10/23/22 0445 [facility] Short Right Forearm 20 Gauge <1 day Labs: Recent Labs 10/20/22 1727 CREAT 0.76 Microbiology data: reviewed Imaging data: reviewed Kory Braga APRN-CANDACE [place] [facility] [phone] October 23, 2022 10:26 AM I personally saw and evaluated the patient. I reviewed the PROCESS OPERATOR Hx, exam and MDM and I agree with the PROCESS OPERATOR assessment and plan unless otherwise addended above. López Ariza MD [phone] 10/23/2022 7:55 AM [facility] THERAPY NTon 10-23-2022 THERAPY NT HNO ID: [id number] Author: Ney Hawk, PT Service: Physical Therapy Author Type: Physical Therapist Type: Therapy (PT/OT/Speech/Resp) Filed: 10/23/2022 2:45 PM Note Text: Physical Therapy Treatment SERVICE DATE: 10/23/2022 SERVICE TIME: 1119 to 1147 ROOM: [place] [id number] Total Joint Replacement Discharge Readiness: Pending Physical Therapy Clearance Recommended Discharge Disposition: Home PT Recommended Discharge Disposition Comments: to ensure safety with all mobility in home setting, functional progression of ROM and strengthening Recommended Discharge Disposition Due to: Patient requires daily, facility-based rehabilitation from at least one discipline due to:, ADL impairment resulting in caregiver dependence, decline in functional status requiring daily skilled care, high level balance deficits, intact cognition Anticipated Discharge Needs: Physical Assist at Home, Supervision at Home Physical Assist at Home for: Cleaning, Laundry, Meals, Stairs, Safety, Shopping, Transportation Supervision at Home due to: Other: See Comment (initially for safety) Recommended Discharge Equipment: Wheeled Walker (if home-going) PT 6 Clicks Score: 19 Precautions/Activity Restrictions: Diabetic, Fall Risk, Lines/Tubes/Drains, Weight Bearing Restrictions Precaution/Activity Restriction Comments: standard Extremity With Weight Bearing Restricted: Right Lower Extremity Right Lower Extremity Weight Bearing Status: WBAT Current Hospital Course: s/p ARTHROSCOPY KNEE SYNOVECTOMY MAJOR (Right) Reason for Hospital Admission: Dx: Septic arthritis of knee, right Relevant Past Medical History: DM ,PAD, HLD, HTN, Majot depressive disorder Response to Therapy Interventions: Good Participation in Activities, Improved Tolerance for Activity, On-Track to Achieve Discharge Goals, Multiple Ongoing Medical Issues, Pain, Requires Additional Time to Complete Activities Assessment Comments: pt painful during however overall tolerable and does not limit progression; pleasant and cooperative, appropriately follows cues throughout, + time for mobility however overall steady, CGA/SBA with use of FWW Continued Skilled Needs Due to: Functional Mobility/Skill Impairments, Safety Concerns, Integumentary Impairment, Family Training Required Physical Therapy Problem List: Education Deficit, Edema, Pain, Safety Deficits, Impaired Self Care, Decreased Activity Tolerance, Decreased Range Of Motion, Decreased Strength, Functional Mobility Impairment, Balance Impaired Treatment Interventions: Education, Self Care / Home Management, Energy Conservation Training, Joint Mobility, Strengthening, Functional Mobility Training, Balance Training, Edema Management, Pain Management Plan for Next Visit: Bed Mobility, Chair Transfer Training, Equipment Needed (Specify), Fall Prevention, Family Instruction, Exercise Instruction/Handout, Gait Training, Sit to Stand Transfers, Standing Balance, Standing Tolerance, Walker Training, Stair Training Home Environment Patient Lives With: Family (son) Assistance Available: Part-Time Entry To Home: Stairs, With Rail Number Of Stairs Into Home: 12 (R side acsending) Number Of Stairs To Bed/Bath: 0 Tub/Shower Type: tub shower + HHSH Laundry: laundromat - son assists or completes Equipment Owned: Other: See Comment (None per pt) Prior Functional Level: Within Functional Limits Prior Functional Level Comments: 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 Performs own grocery shopping Baseline Cognition: Oriented to self, Oriented to place, Oriented to time Subjective: Pt resting at approach, c/o R knee soreness, oriented x 3, pleasant and cooperative, agreeable to PT treatment, ok per RN for PT CURRENT FUNCTIONAL STATUS: Most recent performance Current Functional Mobility Assist Level Additional Information Rolling Supine to Sit Stand By Assistance, Additional Information to L side of bed per pt preference, HOB flat, no use of bed rails; minimal verbal, visual cues for goal of task, sequencing with good follow through overall Sit to Supine Additional Information not tested; sitting up in bedside chair post- Scooting Stand By Assistance, Additional Information forward/retro at EOB/w/c/chair; minimal verbal cues for safe progression, effective use of UEs Sit to Stand Contact Guard Assistance, Additional Information to SBA up to FWW from EOB/w/c; minimal verbal, visual and PRN tactile cues for safe hand placement, upright posture once in standing, WBAT R LE once in standing with good follow through, min + time to complete due to pain R LE however does not limit, x 4 trials total Stand to Sit Contact Guard Assistance, Additional Information to SBA to chair/w/c x 4 trials total; minimal verbal, visual cues for safe hand placement, safe approach, contr (more content not included)... [facility] CASE MANAGEMon 10-22-2022 CASE MANAGEM HNO ID: [id number] Author: Seda Castellanos RN Service: ? Author Type: Registered Nurse Type: Care Mgt Progress Note Filed: 10/22/2022 10:18 AM Note Text: CARE MANAGEMENT PROGRESS NOTE SERVICE DATE: 10/22/2022 SERVICE TIME: 10:17 AM LOS: 3 days Needs Prior to Discharge: IV Antibiotics;Home Care Order;Other: See Comment (PICC line) Notified by [facility] the cost for the patient for IV atb's is $478.20/week. Met with the patient, she is agreeable to the cost. CM department will continue to follow for DC needs. SIGNATURE: Seda Castellanos RN PATIENT NAME: David Aldrich DATE: October 22, 2022 TIME: 10:17 AM PAGER/CONTACT #: [phone] [facility] CONSULT PROGon 10-22-2022 CONSULT PROG HNO ID: [id number] Author: Stephanie Sheets PA-C Service: Orthopaedic Surgery Author Type: Physician Rn Staffing Type: Consult Progress Note Filed: 10/22/2022 1:02 PM Note Text: POSTOP NOTE ORTHOPAEDIC SURGERY SERVICE DATE: 10/22/2022 SERVICE TIME: 12:59 PM IMPRESSION/PLAN: S/P Procedure(s) (LRB): ARTHROSCOPY KNEE SYNOVECTOMY MAJOR (Right) on 10/19/2022 Physical Therapy recommending SNF WBAT RLE Pain control Cultures: MSSA Antibiotics per ID. CoPAT on chart. Case Management for discharge planning. Patient refusing SNF. Awaiting PICC line Follow up in clinic 2 weeks post op Plan of care discussed with: Patient. Patient Active Hospital Problem List: Septic arthritis (HCC) (10/21/2022) Controlled type 2 diabetes mellitus without complication (HCC) (05/11/2016) Staphylococcal arthritis of right knee (HCC) (10/19/2022) Primary hypertension (10/19/2022) Familial hypercholesterolemia (10/19/2022) Nicotine use disorder, F17.2 (10/22/2022) POST OPERATIVE COMPLICATIONS: Complicated by uneventful/none SUBJECTIVE: No overnight issues. Well Controlled knee pain. Denies new ortho complaints. OBJECTIVE: VITAL SIGNS: BP (!) 103/39 Pulse (!) 57 Temp 37.1 ?C (98.8 ?F) (Oral) Resp 16 Ht 154.9 cm (5' 1") Wt 66.7 kg (147 lb) LMP 11/13/2009 SpO2 94% BMI 27.78 kg/m? INTAKE AND OUTPUT: Intake/Output Summary (Last 24 hours) at 10/22/2022 1259 Last data filed at 10/22/2022 0800 Gross per 24 hour Intake 1887 ml Output 0 ml Net 1887 ml LABS: Hemoglobin Date Value Ref Range Status 10/18/2022 12.4 11.5 - 15.5 g/dL Final 09/16/2022 14.6 11.5 - 15.5 g/dL Final Hematocrit Date Value Ref Range Status 10/18/2022 35.8 (L) 36.0 - 46.0 % Final 09/16/2022 45.0 36.0 - 46.0 % Final Platelet Count Date Value Ref Range Status 10/18/2022 537 (H) 150 - 400 k/uL Final 09/16/2022 337 150 - 400 k/uL Final WBC Date Value Ref Range Status 10/18/2022 11.89 (H) 3.70 - 11.00 k/uL Final 09/16/2022 11.42 (H) 3.70 - 11.00 k/uL Final Creatinine Date Value Ref Range Status 10/20/2022 0.76 0.58 - 0.96 mg/dL Final 09/16/2022 0.82 0.58 - 0.96 mg/dL Final Potassium Date Value Ref Range Status 09/16/2022 4.3 3.7 - 5.1 mmol/L Final 01/25/2021 4.6 3.7 - 5.1 mmol/L Final VTE Prophylaxis: Active VTE Risk Category Order: Active VTE Medication Orders: Anticoagulant AND Antiplatelet Medications (From admission, onward) Start Dose Route Frequency Last Action Ordered Stop 10/19/22 1600 aspirin 81 mg chewable tab(s) 81 mg ORAL DAILY Given, 10/22 1017 10/19/22 1539 -- Active VTE Prophylaxis Orders: 10/21/22 0945 PNEUMATIC COMPRESSION STOCKINGS ([place], [place]) PHYSICAL EXAMINATION: Right Lower Extremity: Dorsalis pedis pulses palpable. Posterior tibial pulses palpable. Dorsi flexion 5/5. Plantar flexion 5/5. Extensor hallucis extension: 5/5. Sensory intact to light touch L1-S1. Dressing clean, dry, and intact. Surgical site no drainage. Problem Review and Assessment: Patient monitored, no new events overnight DATA: Diagnostic tests reviewed for today's visit: Most recent labs and imaging results. SIGNATURE: Stephanie Sheets PA-C PATIENT NAME: David Aldrich DATE: October 22, 2022 TIME: 12:59 PM [facility] CONSULT PROG HNO ID: [id number] Author: López Ariza MD Service: Infectious Disease Author Type: Physician Type: Consult Progress Note Filed: 10/22/2022 9:35 PM Note Text: INFECTIOUS DISEASE PROGRESS NOTE Patient Name: David Aldrich INTERVAL HISTORY: No fevers. Repeat BCx are negative at 1 day. Echo limited study. ROS checked in details. All qs answered. Patient Active Hospital Problem List: Septic arthritis (HCC) (10/21/2022) Controlled type 2 diabetes mellitus without complication (HCC) (05/11/2016) Staphylococcal arthritis of right knee (HCC) (10/19/2022) Primary hypertension (10/19/2022) Familial hypercholesterolemia (10/19/2022) Nicotine use disorder, F17.2 (10/22/2022) ASSESSMENT: R Knee Septic Arthritis -s/p arthroscopy wash out (10/19/22) -operative report: copious amounts of purulent joint fluid was immediately identified Leukocytosis -WBC 11.89 -Scr 0.76 -CRP 9.2 -ESR 78 -R Knee Synovial Fluid: cloudy, 116,000 RBC, 95,865 Total Nucleated Cells, 96% Neut -10/16 R Knee Synovial Fluid Cx: +MSSA - prelim -10/18 R Knee Synovial Fluid Cx: +MSSA - prelim -10/19 R Knee Synovial Fluid Cx: GPC - prelim T2DM HTN HLD Depression RECOMMENDATIONS: C/W IV Ancef x 6 weeks Ordered blood cx Reviewed Echo. Will likely need JOVANA to definitely rule out SBE but may not change treatment unless large vegetation or abscess detected. Follow Synovial Fluid Cultures Follow Ortho Recs Monitor temps/counts COPAT pending final culture data and echo results MEDICATIONS: reviewed. Current Facility-Administered Medications Medication Dose Route Frequency busPIRone 5 mg tab(s) (BUSPAR) 5 mg ORAL TID PRN ondansetron orally disintegrating 4 mg tab(s) (ZOFRAN ODT) 4 mg ORAL q 8 H PRN metFORMIN 500 mg tab(s) (GLUCOPHAGE) 500 mg ORAL DAILY wDINNER atorvastatin 20 mg tab(s) (LIPITOR) 20 mg ORAL DAILY lisinopril 5 mg tab(s) (ZESTRIL) 5 mg ORAL DAILY thiothixene 2 mg cap(s) (NAVANE) 2 mg ORAL BID albuterol 2.5 mg /3 mL (0.083 %) 2.5 mg (PROVENTIL) 3 mL INHALATION q 4 H PRN NIFEdipine ER 30 mg tab(s) (PROCARDIA XL) 30 mg ORAL DAILY buPROPion SR 150 mg tab(s) (ZYBAN SR; WELLBUTRIN SR) 150 mg ORAL BID ibuprofen 800 mg tab(s) (MOTRIN) 800 mg ORAL q [address] 20 mg tab(s) (PROTONIX) 20 mg ORAL BEFORE BREAKFAST DAILY zolpidem 10 mg tab(s) (AMBIEN) 10 mg ORAL AT BEDTIME PRN imipramine HCl 150 mg tab(s) (TOFRANIL) 150 mg ORAL AT BEDTIME HYDROcodone 5 mg - acetaminophen 325 mg tablet (NORCO) 1 tablet ORAL q 4 H PRN aspirin 81 mg chewable tab(s) 81 mg ORAL DAILY dextrose 40 % 15 g 15 g ORAL PRN Or glucagon 1 mg injection 1 mg INTRAMUSCULAR PRN Or dextrose 10% iv bolus 12.5 g INTRAVENOUS PRN insulin lispro injection (rapid acting) (HumaLOG) SUBCUTANEOUS w MEALS insulin lispro injection (rapid acting) (HumaLOG) SUBCUTANEOUS AT BEDTIME sodium chloride 0.9 % (flush) 2-10 mL (BD POSIFLUSH) 2-10 mL INTRAVENOUS DIRECTED PRN And perflutren lipid microspheres 1.1 mg/mL 1.3 mL injection (DEFINITY) 1.3 mL INTRAVENOUS DIRECTED PRN ceFAZolin iv piggyback 2 g in D5W (iso-osmotic) 100 mL (ANCEF) 2 g INTRAVENOUS q 8 HR NaCl 0.9% iv flush bag 20 mL INTRAVENOUS PRN PHYSICAL EXAM: Vital signs: BP (!) 129/49 Pulse (!) 55 Temp 37.1 ?C (98.8 ?F) (Oral) Resp 18 Ht 154.9 cm (5' 1") Wt 66.7 kg (147 lb) LMP 11/13/2009 SpO2 96% BMI 27.78 kg/m? Temp (24hrs), Av.1 ?C (98.8 ?F), Min:37 ?C (98.6 ?F), Max:37.1 ?C (98.8 ?F) General: alert, oriented, NAD Lungs: bilaterally clear to auscultation Heart: regular rate and rhythm Abdomen: soft, non tender, non distended, BS+ Extremities: no edema No rashes No joint inflammation Neck supple Lines ok No CVAT Lines, Drains, and Airways Line Duration Peripheral 10/19/22 1216 [facility] Short Left Forearm 20 Gauge 3 days Labs: Recent Labs 10/20/22 1727 CREAT 0.76 Microbiology data: reviewed Imaging data: reviewed López Ariza MD Pager: Date of service: 10/22/2022 Time of service: 12:30 PM This note is not final until Authenticated by responsible provider. Normal [facility] ECHOon 10-22-2022 Echocardiography Echocardiography Rep ort: Transthoracic Echo [facility] Date of service: 10/22/2022 12:12:03 PM Ordering physician: KORY BRAGA Indication: Initial evaluation of infective endocarditis with a new murmur Technologist: Magalys Levy [facility] Interpreting physician: Ej Graham DO PATIENT: Name: MRS. DAVID ALDRICH : 1960 Age: 61 years Gender: F History of hypertension and diabetes mellitus. Primary rhythm: sinus. Secondary rhythm: PAC. Height: 154.90 cm BSA: 1.69 m Weight: 66.68 kg BMI: 27.8 kg/m Heart rate 70 bpm Blood pressure 120/57 mmHg Technically difficult exam due to suboptimal positioning and irregular rhythm and echo done bedside. Color Doppler was utilized to interrogate the cardiac valves assessed and spectral Doppler was utilized to determine the flow velocities and pressure gradients reported in this exam. MEASUREMENTS: Value Indexed Normal Max aortic dimension 2.5 cm Ao < 3.8 Left atrial volume 48 ml (biplane A-L) 28 ml/m Yoav <= 34 LV ID (diastole) 4.0 cm (2D) 2.36 cm/m LV ID (systole) 2.4 cm (2D) 1.44 cm/m IVS, leaflet tips 0.9 cm (2D) Posterior wall thickness 0.8 cm (2D) Left ventricular mass 103 g (2D) 61 g/m LV stroke volume 75 ml (2D 4-ch.) LV end diastolic volume 100 ml (2D 4-ch.) 59.0 ml/m 29<=EDVi<62 LV end systolic volume 25 ml (2D 4-ch.) 14.7 ml/m Ejection Fraction 75 % (2D 4-ch.) EF > 54 FINDINGS: LEFT VENTRICLE The left ventricle is normal in size. Left ventricular systolic function is hyperdynamic. Left ventricular diastolic function was not evaluated due to inconsistent or technically suboptimal data. Mitral annular lateral E/e': 5.5. Mitral annular septal E/e': 6.8. Wall Motion: All scored segments are normal. RIGHT VENTRICLE The right ventricle is normal in size. Right ventricular systolic function is normal. RV systolic tissue Doppler velocity is 16.4 cm/s. Tricuspid annular displacement is 1.5 cm. Estimated right ventricular systolic pressure is likely underestimated due to a weak or incomplete tricuspid regurgitation signal and is, at least, 26 mmHg plus right atrial pressure. Estimated right atrial pressure is not included as the IVC was not seen. LEFT ATRIUM The left atrial cavity is normal in size. RIGHT ATRIUM The right atrial cavity is normal in size. MITRAL VALVE The mitral valve leaflets are structurally normal. There is trace mitral valve regurgitation. The pressure half time is 54 msec. The peak mitral E/A ratio is 1.13. The average mitral E/e' ratio is 6.2. The mitral flow deceleration time is 185 msec. TRICUSPID VALVE The tricuspid valve leaflets are structurally normal. There is trace (trace - 1+) tricuspid valve regurgitation. AORTIC VALVE The aortic valve cusps are structurally normal. There is no aortic valve regurgitation. The peak gradient is 6 mmHg (peak velocity = 119.5 cm/s). PULMONIC VALVE The pulmonic valve was not seen. AORTA The visualized aorta is normal in size. Measurements - Mid ascending aorta 2.5 cm. PULMONARY ARTERIES The pulmonary arteries are unseen or not interrogated. INTERATRIAL SEPTUM The interatrial septum is normal. INTERVENTRICULAR SEPTUM The interventricular septum is normal. PERICARDIUM There is an epicardial fat pad. CONCLUSIONS: - Technically difficult exam due to suboptimal positioning and irregular rhythm and echo done bedside. - Exam indication: Initial evaluation of infective endocarditis with a new murmur - The left ventricle is normal in size. Left ventricular systolic function is hyperdynamic. EF = 75 5% (2D 4-ch.) Left ventricular diastolic function was not evaluated due to inconsistent or technically suboptimal data. - The right ventricle is normal in size. Right ventricular systolic function is normal. - Estimated right ventricular systolic pressure is likely underestimated due to a weak or incomplete tricuspid regurgitation signal and is, at least, 26 mmHg plus right atrial pressure. Estimated right atrial pressure is not included as the IVC was not seen. - No apparent evidence of endocarditis is noted on this study. - Exam was compared with the prior echocardiographic exam performed on 07/24/2020. Prior EF was 66%. * * * Final * * * CC [employer] [facility] : [id number] [facility] THERAPY NTon 10-22-2022 THERAPY NT HNO ID: [id number] Author: Sujata Garcia PTA Service: Physical Therapy Author Type: Tow Car Driver Type: Therapy (PT/OT/Speech/Resp) Filed: 10/22/2022 10:45 AM Note Text: Attestation signed by Rosemary Seth PT at 10/22/2022 6:00 PM I reviewed and agree with the documentation corresponding to this therapy visit. SIGNATURE: Rosemary Seth PT DATE: October 22, 2022 TIME: 6:00 PM Physical Therapy Treatment SERVICE DATE: 10/22/2022 SERVICE TIME: 1025 to 1033 ROOM: [place] [address] Total Joint Replacement Discharge Readiness: Pending Physical Therapy Clearance Recommended Discharge Disposition: Subacute/SNF Recommended Discharge Disposition Comments: Pt currently functioning below baseline s/p septic R knee IANDD; Pt with increased pain, increased RLE edema, decreased RLE ROM, decreased RLE strength, impaired activity tolerance, impaired balance, and overall decreased functional mobility. Pt would benefit from daily skilled services post acute stay to address deficits. May progress during acute stay if able to perform safe stair negotiation Recommended Discharge Disposition Due to: Patient requires daily, facility-based rehabilitation from at least one discipline due to:, ADL impairment resulting in caregiver dependence, anticipate community discharge/previous community dweller, decline in functional status requiring daily skilled care, deficits affecting dominant side, deficits affecting non-dominant side, ongoing intervention of multiple therapy disciplines Anticipated Discharge Needs: Physical Assist at Home Physical Assist at Home for: Cleaning, Laundry, Safety, Self Care, Shopping, Transportation, Meals, Transfers Supervision at Home due to: Decreased safety awareness Recommended Discharge Equipment: Wheeled Walker (if home-going) PT 6 Clicks Score: 6 Precautions/Activity Restrictions: Diabetic, Fall Risk, Lines/Tubes/Drains Current Hospital Course: s/p ARTHROSCOPY KNEE SYNOVECTOMY MAJOR (Right) Reason for Hospital Admission: Dx: Septic arthritis of knee, right Relevant Past Medical History: DM ,PAD, HLD, HTN, Majot depressive disorder Response to Therapy Interventions: Limited Participation, Low Activity Tolerance, Pain, Requires Encouragement to Complete Activities Assessment Comments: Limited session secondary to frequent diarrhea and fatigue. Bed level exercises performed. ROM exercises avoided on R LE for safety. Patient at this time declining SNF, adamant on returning home at [place]. Continue to progress patient as able. Continued Skilled Needs Due to: Functional Mobility/Skill Impairments, Safety Concerns Physical Therapy Problem List: Education Deficit, Edema, Pain, Safety Deficits, Impaired Self Care, Decreased Activity Tolerance, Decreased Range Of Motion, Decreased Strength, Functional Mobility Impairment, Balance Impaired Treatment Interventions: Education, Self Care / Home Management, Energy Conservation Training, Joint Mobility, Strengthening, Functional Mobility Training, Balance Training, Edema Management, Pain Management Plan for Next Visit: Bed Mobility, Fall Prevention, Family Instruction, Gait Training, Stair Training Home Environment Patient Lives With: Family (son) Assistance Available: Part-Time Entry To Home: Stairs, With Rail Number Of Stairs Into Home: 12 (R side acsending) Number Of Stairs To Bed/Bath: 0 Tub/Shower Type: tub shower + HHSH Laundry: laundromat - son assists or completes Equipment Owned: Other: See Comment (None per pt) Prior Functional Level: Within Functional Limits Prior Functional Level Comments: 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 Performs own grocery shopping Baseline Cognition: Oriented to self, Oriented to place, Oriented to time Subjective: Patient pleasant however, politely requesting to decline OOB mobility. Reports frequent diarrhea and just being out of bed with OT. CURRENT FUNCTIONAL STATUS: Most recent performance OOB mobility not tested this session Current Functional Mobility Assist Level Additional Information Rolling Supine to Sit Contact Guard Assistance, Additional Information Sit to Supine Minimal Assistance, Additional Information Scooting Contact Guard Assistance Sit to Stand Contact Guard Assistance, Additional Information Stand to Sit Contact Guard Assistance, Additional Information Bed to Chair Toilet/Commode Contact Guard Assistance, Additional Information Gait Contact Guard Assistance, Additional Information Gait Device: Wheeled Walker Gait Distance (feet): 1 X 5, 1 X 8, 1 X 13 Stairs Curb Step Car Transfer Blank juarez indicate activity not attempt (more content not included)... [facility] THERAPY NT HNO ID: [id number] Author: Wilmar Bee OT/L Service: Occupational Therapy Author Type: Occupational Therapist Type: Therapy (PT/OT/Speech/Resp) Filed: 10/22/2022 10:26 AM Note Text: Occupational Therapy Evaluation SERVICE DATE: 10/22/2022 SERVICE TIME: 900 to 944 ROOM: [place] [address] Recommended Discharge Disposition: Subacute/SNF Recommended Discharge Disposition Due to: Patient requires daily, facility-based rehabilitation from at least one discipline due to:, Patient requires an active, intensive rehabilitation therapy program due to: Anticipated Discharge Needs: Physical Assist at Home Physical Assist at Home for: Cleaning, Laundry, Safety, Self Care, Shopping, Transportation, Meals, Transfers Supervision at Home due to: Decreased safety awareness Recommended Discharge Equipment: Bullard Machine Operator, Sock Aid, Shower Chair, Long Handled Sponge, Wheeled Walker OT 6 Clicks Score: 21 Precautions/Activity Restrictions: Diabetic, Fall Risk, Lines/Tubes/Drains Current Hospital Course: s/p ARTHROSCOPY KNEE SYNOVECTOMY MAJOR (Right) Reason for Hospital Admission: Dx: Septic arthritis of knee, right Relevant Past Medical History: DM ,PAD, HLD, HTN, Majot depressive disorder Response to Therapy Interventions: Good Participation in Activities, On-Track to Achieve Discharge Goals, Pain, Improved Tolerance for Activity Assessment Comments: Pt presents with decreased ability to perform daily tasks d/t general weakness, decreased activity tolerance, decreased safety awareness. Pt requires min A to perform lower body tasks. Pt will benefit from continued skilled OT services to increase ability to perform daily tasks. Continued Skilled Needs Due to: Safety Concerns, Functional Impairment Occupational Therapy Problem List: Education Deficit, Safety Deficits, Impaired Self Care, Decreased Activity Tolerance, Decreased Strength, Functional Mobility Impairment, Balance Impaired Cognition/Communication Deficits Responsiveness: Alert, Awake Follows Commands: 3-step Commands Cognitive Clinical Tests and Screens: 4AT Screening 4AT Screening Assess Alertness: Your observation to asses for excessive drowsiness or agitation. If asleep, attempt to wake with speech or gentle touch on shoulder. You may ask the patient to state their name and address to assist rating.: Normal (fully alert, but not agitated, throughout assessment) Assess orientation: Ask patient age, date of , current year, and current location: No mistakes Asess Attention: Ask patient to "tell me the months of the year backwards order, starting with January": Able to state 7+ months correctly Evidence of acute changes or fluctuating mental status (changes in memory, alertness) or behavior (paranoia, hallucinations) in last 2 weeks: No 4AT Score: 0 Delirium Positive/Negative: Negative Treatment Interventions: Education, Self Care/Home Management, Energy Conservation Training, Strengthening, Functional Mobility Training, Balance Training, Neuromuscular Re-education, Cognitive Training Plan for Next Visit: Bathing Training, Bed Mobility, Chair/Commode Transfer Training, Energy Conservation, Dressing Training, Standing Tolerance, Standing Balance, Sitting Tolerance, Sitting Balance, Sit to Stand Transfers, Shower/Tub Transfer Training, Positioning Training, Fall Prevention Home Environment Patient Lives With: Family (son) Assistance Available: Part-Time Entry To Home: Stairs, With Rail Number Of Stairs Into Home: 12 (R side acsending) Number Of Stairs To Bed/Bath: 0 Tub/Shower Type: tub shower + HHSH Laundry: laundromat - son assists or completes Equipment Owned: Other: See Comment (None per pt) Prior Functional Level: Within Functional Limits Prior Functional Level Comments: 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 [employer] Highest Level of Education: College/Professional Trade Occupational Factors Life Roles: Friend, Parent Identified Strengths: Involvement in Hobbies/Leisure Activities, Good Support System, Access to Healthcare Identified Barriers: Difficulty with ADLs/IADLs Subjective: agreed to OT CURRENT FUNCTIONAL STATUS: Most recent performance Current Activities of Daily Living Assist Level Additional Information Feeding Stand By Assistance Grooming Stand By Assistance Bathing Upper Body Stand By Assistance Bathing Lower Body Minimal Assistance Dressing Upper Body Stand By Assistance Dressing Lower Body Minimal Assistance Toileting Minimal Assistance Instrumental Activities of Daily Living Assist Level Additional Information Meal/Beverage Prep Cleaning Laundry Medication Management with Strategies Function (more content not included)... [facility] Bacteria Bld Culton 10-22-19 23 Bacteria identified Cx Nom (Bld) CULTURE, BLOOD: No growth 5 days Normal [facility] Comment on above: Performed By: #### 6 00-7 #### [facility] CLIA [id number] [facility] [address] Performed By: #### 6 00-7 ####[facility] [id number] [facility] [address] [facility] CASE MANAGEMon 10-21-2022 CASE MANAGEM HNO ID: [id number] Author: Seda Castellanos RN Service: ? Author Type: Registered Nurse Type: Care Mgt Progress Note Filed: 10/21/2022 4:14 PM Note Text: CARE MANAGEMENT PROGRESS NOTE SERVICE DATE: 10/21/2022 SERVICE TIME: 11:48 AM LOS: 2 days Needs Prior to Discharge: Home Care Order [place] of Choice Given: Yes Level of Care Discussed: Home Care Financial Disclosure Provided: Yes Provider List: Home Care Provider list within the patient's requested geographic area shared with the patient/family: Yes of zip code: [address] Quality and resource use metrics shared with the patient that are relevant to the patient's goals of care and treatment preferences:: Yes PT-SNF. Met with the patient, discussed PT recommendations. The patient is refusing SNF, agreeable to Home PT. The patient does not have preference on a HHC agency. Referral placed to multiple C agencies. CM department will continue to follow for DC needs. 2:53 pm- Review of ID note. Patient will need CoPat at discharge. Met with the patient, she stated she is aware of the need for IV atb's at home and her son is her teachable caregiver. Referral to [facility]. 4:14 pm- [facility] able to accept. SIGNATURE: Seda Castellanos RN PATIENT NAME: David Aldrich DATE: October 21, 2022 TIME: 11:48 AM PAGER/CONTACT #: [phone] [facility] CONSULTon 10-21-2022 CONSULT HNO ID: [id number] Author: López Ariza MD Service: Infectious Disease Author Type: Physician Type: Consults Filed: 10/21/2022 2:26 PM Note Text: CONSULT: INFECTIOUS DISEASE SERVICE SERVICE DATE: 10/21/2022 SERVICE TIME: 8:53 AM REASON FOR CONSULT: Septic Arthritis REQUESTING PHYSICIAN: Beni Miller MD PRIMARY CARE PHYSICIAN: Lulu Swanson APRN.[employer] PANELS Subjective Ms. Aldrich is a 61 year old female with PMHx of DM type II, hypertension, hyperlipidemia, depression, presents with septic arthritis of the right knee and a status post arthroscopic washout. She has been having some swelling and troubles with the right knee for about 8 days [employer]. She went to urgent care a few times to get evaluated secondary to the swelling and pain in the knee. She was evaluated in emergency room and checked for a DVT. She then followed up with orthopedics and received a cortisone injection with aspiration. The aspiration unexpectedly showed staph aureus. Aspiration was then repeated to get full cell count and evaluation and it was certainly suspicious for an infectious process as opposed to inflammation or gout.Tmax 99.7. Intermittent bradycardia (30-109). Saturating on room air, SpO2 90-93%. Patient resting in bed, NAD. Reports that she is feeling well. Reports hip pain is well controlled. Denies any new complaints. WBC 11.89 Scr 0.76 CRP 9.2 ESR 78 R Knee Synovial Fluid: cloudy, 116,000 RBC, 95,865 Total Nucleated Cells, 96% Neut 10/16 R Knee Synovial Fluid Cx: +MSSA - prelim 10/18 R Knee Synovial Fluid Cx: +MSSA - prelim 10/19 R Knee Synovial Fluid Cx: GPC - prelim Susceptibility Staphylococcus aureus (1) Antibiotic Interpretation Status Oxacillin Susceptible Preliminary Gentamicin Susceptible Preliminary Erythromycin Resistant Preliminary Clindamycin Resistant Preliminary Trimeth sulfameth Susceptible Preliminary Vancomycin Susceptible Preliminary Rifampin Susceptible Preliminary Tetracycline Susceptible Preliminary Doxycycline Susceptible PAST MEDICAL HISTORY Diagnosis Date Arrhythmia Bradycardia Diabetes mellitus with peripheral artery disease (HCC) 03/06/2015 H/O percutaneous left heart catheterization May, negative--[facility] History of rectal polypectomy 09/23/201712/2014: hyperplastic polyp Hyperlipidemia LDL goal < 100 01/25/2013 Hypertension Major depressive disorder, recurrent episode, unspecified Non-alcoholic fatty liver disease 10/13/2014 Other and unspecified hyperlipidemia Other chronic nonalcoholic liver disease 01/16 fatty liver disease Peripheral arterial disease (HCC) 03/06/2015 Recurrent major depressive disorder, in full remission (HCC) 03/10/2017 Snoring Type 2 diabetes mellitus with stage 3 chronic kidney disease, without long-term current use of insulin (HCC) 05/11/2016 PAST SURGICAL HISTORY Procedure Laterality Date APPENDECTOMY 1971 CAROTID ENDARTERECTOMY 06/16/2012 Right carotid COLONOSCOPY 12/12/14 Repeat 2017 FAMILY HISTORY Problem Relation Age of Onset Heart Mother Diabetes Father other (Parkinson's disease [Other]) Brother Social History Tobacco Use Smoking status: Every Day Packs/day: 1.00 Years: 25.00 Additional pack years: 0.00 Total pack years: 25.00 Types: Cigarettes Smokeless tobacco: Never Vaping Use Vaping Use: Never used Substance Use Topics Alcohol use: Not Currently Comment: quit 04/18 Drug use: No cefdinir (OMNICEF) 300 mg capsule, Take 1 capsule by mouth twice daily., Disp: 20 capsule, Rfl: 0, 10/19/2022 zolpidem (AMBIEN) 10 mg, Take 1 tablet by mouth at bedtime as needed (insomnia) for up to 90 days., Disp: 30 tablet, Rfl: 1, 10/18/2022 ibuprofen (MOTRIN) 800 mg tablet, Take 1 tablet by mouth every 8 hours as needed for pain. Take with food., Disp: 30 tablet, Rfl: 0, 10/18/2022 at 1700 imipramine HCl (TOFRANIL) 50 mg tablet, Take 3 tablets by mouth daily at bedtime., Disp: 270 tablet, Rfl: 0, 10/18/2022 atorvastatin (LIPITOR) 20 mg tablet, Take 1 tablet by mouth once daily., Disp: 90 tablet, Rfl: 3, 10/19/2022 buPROPion SR (WELLBUTRIN SR) 150 mg 12 hr tablet, One pill by mouth once daily X 3 days, then increase to twice daily. Take second dose before 6PM. Try to stop smoking on day 5-7., Disp: 60 tablet, Rfl: 2, 10/19/2022 thiothixene (NAVANE) 1 mg capsule, Take 2 capsules by mouth twice daily., Disp: 120 capsule, Rfl: 11, 10/19/2022 NIFEdipine XL (ADALAT CC) 30 mg 24 hr tablet, take 1 tablet by mouth once daily, Disp: 90 tablet, Rfl: 3, 10/19/2022 metFORMIN (GLUCOPHAGE) 500 mg tablet, take 1 tablet by mouth once daily with dinner, Disp: 30 tablet, Rfl: , 10/19/2022 lisinopril (ZESTRIL, PRINIVIL) 5 mg tablet, take 1 tablet by mouth once daily, Disp: 30 tablet, Rfl: , 10/19/2022 busPIRone (BUSPAR) 5 mg tablet, Take 1 tablet by mouth three times daily as needed., Disp: 90 tablet, Rfl: 1, 10/19/2022 Melatonin 5 mg cap, Take 1 capsule by mouth once daily., Disp: , Rfl: , (more content not included)... [facility] CONSULT PROGon 10-21-2022 CONSULT PROG HNO ID: [id number] Author: Stephanie Sheets PA-C Service: Orthopaedic Surgery Author Type: Physician Rn Staffing Type: Consult Progress Note Filed: 10/21/2022 9:36 AM Note Text: POSTOP NOTE ORTHOPAEDIC SURGERY SERVICE DATE: 10/21/2022 SERVICE TIME: 9:31 AM IMPRESSION/PLAN: S/P Procedure(s) (LRB): ARTHROSCOPY KNEE SYNOVECTOMY MAJOR (Right) on 10/19/2022 Physical Therapy evaluation WBAT RLE Pain control Culture: Staph aureus Antibiotics per ID Case Management for discharge planning Plan of care discussed with: Patient. Patient Active Hospital Problem List: Septic arthritis (HCC) (10/21/2022) Controlled type 2 diabetes mellitus without complication (HCC) (05/11/2016) Staphylococcal arthritis of right knee (HCC) (10/19/2022) Primary hypertension (10/19/2022) Familial hypercholesterolemia (10/19/2022) POST OPERATIVE COMPLICATIONS: Complicated by uneventful/none SUBJECTIVE: No overnight issues. Well Controlled knee pain. Denies new complaints. OBJECTIVE: VITAL SIGNS: BP 120/57 Pulse 72 Temp 37.6 ?C (99.7 ?F) (Oral) Resp 16 Ht 154.9 cm (5' 1") Wt 66.7 kg (147 lb) LMP 11/13/2009 SpO2 90% BMI 27.78 kg/m? INTAKE AND OUTPUT: Intake/Output Summary (Last 24 hours) at 10/21/2022 0932 Last data filed at 10/20/2022 1800 Gross per 24 hour Intake 720 ml Output -- Net 720 ml LABS: Hemoglobin Date Value Ref Range Status 10/18/2022 12.4 11.5 - 15.5 g/dL Final 09/16/2022 14.6 11.5 - 15.5 g/dL Final Hematocrit Date Value Ref Range Status 10/18/2022 35.8 (L) 36.0 - 46.0 % Final 09/16/2022 45.0 36.0 - 46.0 % Final Platelet Count Date Value Ref Range Status 10/18/2022 537 (H) 150 - 400 k/uL Final 09/16/2022 337 150 - 400 k/uL Final WBC Date Value Ref Range Status 10/18/2022 11.89 (H) 3.70 - 11.00 k/uL Final 09/16/2022 11.42 (H) 3.70 - 11.00 k/uL Final Creatinine Date Value Ref Range Status 10/20/2022 0.76 0.58 - 0.96 mg/dL Final 09/16/2022 0.82 0.58 - 0.96 mg/dL Final Potassium Date Value Ref Range Status 09/16/2022 4.3 3.7 - 5.1 mmol/L Final 01/25/2021 4.6 3.7 - 5.1 mmol/L Final VTE Prophylaxis: Active VTE Risk Category Order: Active VTE Medication Orders: Anticoagulant AND Antiplatelet Medications (From admission, onward) Start Dose Route Frequency Last Action Ordered Stop 10/19/22 1600 aspirin 81 mg chewable tab(s) 81 mg ORAL DAILY Given, 10/21 91210/19/22 1539 -- Active VTE Prophylaxis Orders: PHYSICAL EXAMINATION: Right Lower Extremity: Dorsalis pedis pulses palpable. Posterior tibial pulses palpable. Dorsi flexion 5/5. Plantar flexion 5/5. Extensor hallucis extension: 5/5. Sensory intact to light touch L1-S1. Dressing clean, dry, and intact. Surgical site no drainage. Problem Review and Assessment: Patient monitored, no new events overnight DATA: Diagnostic tests reviewed for today's visit: Most recent labs and imaging results. SIGNATURE: Stephanie Sheets PA-C PATIENT NAME: David Aldrich DATE: October 21, 2022 TIME: 9:31 AM [facility] THERAPY NTon 10-21-2022 THERAPY NT HNO ID: [id number] Author: Ney Cazares OTR/Chhaya Service: Occupational Therapy Author Type: Occupational Therapist Type: Therapy (PT/OT/Speech/Resp) Filed: 10/21/2022 11:44 AM Note Text: OCCUPATIONAL THERAPY MISSED VISIT SERVICE DATE: 10/21/2022 SERVICE TIME: 1134 to 1136 ROOM: [place] [address] Patient not seen due to Refused Treatment. Approached patient who requested to be seen at a later time secondary to having diarrhea. Will re attempt as schedule permits and patient willing to participate. SIGNATURE: ANTHONY Chi/Chhaya PATIENT NAME: David Aldrich DATE: October 21, 2022 TIME: 11:42 AM [facility] THERAPY NT HNO ID: [id number] Author: Asha Clarke PT Service: Physical Therapy Author Type: Physical Therapist Type: Therapy (PT/OT/Speech/Resp) Filed: 10/21/2022 12:14 PM Note Text: Physical Therapy Evaluation SERVICE DATE: 10/21/2022 SERVICE TIME: 1100 to 1127 ROOM: [place] [address] Total Joint Replacement Discharge Readiness: Pending Physical Therapy Clearance Recommended Discharge Disposition: Subacute/SNF Recommended Discharge Disposition Comments: Pt currently functioning below baseline s/p septic R knee IANDD; Pt with increased pain, increased RLE edema, decreased RLE ROM, decreased RLE strength, impaired activity tolerance, impaired balance, and overall decreased functional mobility. Pt would benefit from daily skilled services post acute stay to address deficits. May progress during acute stay if able to perform safe stair negotiation Recommended Discharge Disposition Due to: Patient requires daily, facility-based rehabilitation from at least one discipline due to:, ADL impairment resulting in caregiver dependence, anticipate community discharge/previous community dweller, decline in functional status requiring daily skilled care, deficits affecting dominant side, deficits affecting non-dominant side, ongoing intervention of multiple therapy disciplines Anticipated Discharge Needs: Physical Assist at Home, Supervision at Home Physical Assist at Home for: Cleaning, Laundry, Meals, Transportation, Shopping, Self Care, Safety, Stairs Supervision at Home due to: Decreased safety awareness Recommended Discharge Equipment: Wheeled Walker (if home-going) PT 6 Clicks Score: 17 Precautions/Activity Restrictions: Diabetic, Fall Risk, Lines/Tubes/Drains Current Hospital Course: s/p ARTHROSCOPY KNEE SYNOVECTOMY MAJOR (Right) Reason for Hospital Admission: Dx: Septic arthritis of knee, right Relevant Past Medical History: DM ,PAD, HLD, HTN, Majot depressive disorder Response to Therapy Interventions: Limited Participation, Low Activity Tolerance, Multiple Ongoing Medical Issues, Pain, Requires Additional Time to Complete Activities Assessment Comments: Pt session limited due to bowel urgency/incontinence. May progress during acute stay if able to perform stair negotiation appropriately Continued Skilled Needs Due to: Family Training Required, Functional Mobility/Skill Impairments, Safety Concerns Physical Therapy Problem List: Education Deficit, Edema, Pain, Safety Deficits, Impaired Self Care, Decreased Activity Tolerance, Decreased Range Of Motion, Decreased Strength, Functional Mobility Impairment, Balance Impaired Treatment Interventions: Education, Self Care / Home Management, Energy Conservation Training, Joint Mobility, Strengthening, Functional Mobility Training, Balance Training, Edema Management, Pain Management Plan for Next Visit: Bed Mobility, Cane Training, Chair Transfer Training, Fall Prevention, Family Instruction, Gait Training, Exercise Instruction/Handout, Pre-gait Activities, Sit to Stand Transfers, Sitting Balance, Stair Training, Standing Balance, Standing Tolerance, Walker Training Home Environment Patient Lives With: Family (son) Assistance Available: Part-Time Entry To Home: Stairs, With Rail Number Of Stairs Into Home: 12 (R side acsending) Number Of Stairs To Bed/Bath: 0 Tub/Shower Type: tub shower + HHSH Laundry: laundromat - son assists or completes Equipment Owned: Other: See Comment (None per pt) Prior Functional Level: Within Functional Limits Prior Functional Level Comments: 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 Performs own grocery shopping Subjective: Pt reports, "I started having diarrhea this morning but I want to go home today." Agreeable to PT, cleared with RN CURRENT FUNCTIONAL STATUS: Most recent performance Current Functional Mobility Assist Level Additional Information Rolling Supine to Sit Contact Guard Assistance, Additional Information to L side of bed, floating RLE off surface. Cues for sequencing Sit to Supine Minimal Assistance, Additional Information Eleazar to RLE Scooting Contact Guard Assistance Sit to Stand Contact Guard Assistance, Additional Information X 2 trials, cues for UE support from surface Stand to Sit Contact Guard Assistance, Additional Information Cues for safe approach and eccentric control Bed to Chair Toilet/Commode Contact Guard Assistance, Additional Information Pt reports diarrhea, sits on bedside commode. Self pericare + hand hygeine at sink in bathroom Gait Contact Guard Assistance, Additional Information Gait Device: Wheeled Walker Gait Distance (feet): 1 X 5, 1 X 8, 1 X 13 Pt follows cues appropriately for step-to pattern in FWW with WBAT. Pt with short step length and appropriate UE support on AD. Pt terminates session prior to stair negotiati (more content not included)... [facility] ANES POSTPROC EVALon 023 ANES POSTPROC EVAL HNO ID: [id number] Author: Cyndee Craven MD Service: Anesthesiology Author Type: Anesthesiologist Type: Anesthesia Postprocedure Evaluation Filed: 10/20/2022 2:53 PM Note Text: POST ANESTHESIA EVALUATION NOTE : 1960 Procedure Summary Date: 10/19/22 Room / Location: [facility] OR05 / [place] Anesthesia Start: 1353 Anesthesia Stop: 1501 Procedure: ARTHROSCOPY KNEE SYNOVECTOMY MAJOR (Right: Knee) Diagnosis: Septic arthritis of knee, right (HCC) (Septic arthritis of knee, right (HCC) [M00.9]) Surgeons: Doug Quiroz MD Responsible Provider: Cyndee Craven MD Anesthesia Type: general ASA Status: 3 Anesthesia Type: general Airway Type: LMA Last Vitals Vitals Value Taken Time BP 134/49 10/20/22 1132 Temp 37.3 ?C (99.1 ?F) 10/20/22 1132 HR SpO2 77 10/19/22 1503 Resp 20 10/20/22 1132 SpO2 94 % 10/20/22 1132 Post Anesthesia Patient Status Patient Evaluation: PACU. PACU/ICU Patient Condition: stable. Anticipated Disposition: inpatient floor planned admission. Neurological Status: aware and responsive. Pulmonary Status: breathing comfortably on room air Airway Control: returned to baseline unsupported. Cardiovascular Status: stable. Pain Management: clinically adequate - multimodal analgesia pain management approach Postoperative Hydration: acceptable. Intraoperative Events: no significant anesthesia events Post Operative Nausea/Vomiting Status: no significant post operative nausea or vomiting Recommendation: continue current plan of care and further care per PACU/ICU/floor team. Anesthesia Observations No Documentation SIGNATURE: Cyndee Craven MD PATIENT NAME: David Aldrich DATE: October 20, 2022 TIME: 2:53 PM CSN: [id number] [facility] CASE MGT [facility] H[facility] ID: [id number] Author: Gina Fernandez LISW Service: ? Author Type: Prepress Operator Type: Care Mgt Initial Assessment Filed: 10/20/2022 9:10 AM Note Text: CARE MANAGEMENT: ASSESSMENT AND DISCHARGE PLAN SERVICE DATE: October 20, 2022 SERVICE TIME: 9:06 AM PCP: Lulu Swanson APRN.CNP Primary Contact: Extended Emergency Contact Information Primary Emergency Contact: Juan Rayo Marion Relation: Son Admission Status: Admit Prior to Surgery Insurance Provider: [facility] CHOICE PLUS Discharge Planning requested by: Per Department Practice Potential Transition Plans Home Advance Directives Current Advance Directive: None Lsw Attempted to Assist with AD Completion: Yes Action: Education Provided;Patient Unwilling Current Living Arrangements and Support Lives with: Children Type of Residence: Private Residence (Apartment or Condo) Does the patient have to climb stairs at home?: Yes;stairs outside the home Support: Children, Family members, Friends/neighbors How do you manage to accomplish the following: Independent: Ambulation;Bathe/Shower;Eloy ss;Meals/Meal Prep;Going to the bathroom;Medication Management;Transportation to appointments/community Current Services/Equipment Current Post-Acute Service(s): None Discharge Planning Patient Goal(s): Be able to go home, General wellness, Less pain Phil Campbell of Choice Explained: Phil Campbell of Choice Given: No Reason Not Given: No placements necessary Are you interested in bedside delivery of your medications? No Discharge Planning Participant(s): Patient Patient/Family Comments: Caregiver Assessment: Caregiver is ready, willing and able to meet the patient's needs as recommended by the inter-professional team: No Caregiver needed Transport at Discharge: Transportation Arrangements: Car Destination: home Needs Prior to Discharge: Needs Prior to Discharge: To Be Determined;Other: See Comment;Discharge Transportation (medical clearance) [facility], introduced self/role. Pt is 61 yo and presents with R knee pain. Pt has arthroscopy of knee yesterday. Pt is employed and does need a work release at [employer]. Pt reports she lives in an upstairs apartment with her son. Pt reports she does not use any DME to help with ambulation, but she does rely on the railings when going up and down the stairs. Pt reports she is IPTA. Pt is not active with any outpt skilled services. Pt reports her friend will transport at [facility]. [facility] educated pt about MD being able to write a script for a cane at [facility] since she expressed interest in wanting a cane. SIGNATURE: KOFFI Alvarado PATIENT NAME: David Aldrich DATE: October 20, 2022 TIME: 9:06 AM CONTACT #: [phone] [facility] CREATININE [facility] 10-20-2022 Creatinine [Mass/Vol] 0.76 mg/dL Normal 0.58-0.96 [facility] Comment on above: Order Comment: Martine calabrese Type: BLOOD SPECIMEN Ordering Facility: [facility] Address: [address] [place] [id number] Performed By: #### C RET1 #### [facility] CLIA [id number] [address] [place] [id number] [place] Creatinine and Glomerular filtration rate.predicted panel (S/P/Bld) 90 mL/min/1.73m??? Normal >=60 [facility] Comment on above: Order Comment: Martine calabrese Type: BLOOD SPECIMEN Ordering Facility: [facility] Address: [address] [place], [place] [address], [place] [address] Result Comment: Alba mated Glomerular Filtration Rate (eGFR) is calculated using the 2020 CKD-EPI creatinine equation. This equation utilizes serum creatinine, sex, and age as parameters. The creatinine assay has traceable calibration to isotope dilution-mass spectrometry. Refer to KDIGO guidelines for clinical interpretation. In patients with unstable renal function, e.g. those with acute kidney injury, the eGFR may not accurately reflect actual GFR. Performed By: #### C RET1 #### [facility] CLIA [id number] [address] [place] [address] [facility] [place] NURSING PROGon 10-20-2022 NURSING PROG HNO ID: [id number] Author: Khushboo Fields RN Service: Nursing Author Type: Registered Nurse Type: Nursing Progress Note Filed: 10/20/2022 3:21 AM Note Text: Other: 0307 Bladder scan completed for 680mL. No output recorded. Pt has fullness but no sensation to void. 0318 Assisted to BSC, voided 850mL. [facility] ANES PRE-OPon 10-19-2022 ANES PRE-OP HNO ID: [id number] Author: Cyndee Craven MD Service: Anesthesiology Author Type: Anesthesiologist Type: Anesthesia Preprocedure Evaluation Filed: 10/19/2022 12:52 PM Note Text: ANESTHESIOLOGY DAY OF SURGERY NOTE : 1960 Procedure Information Date/Time: 10/19/22 1334 Procedure: ARTHROSCOPY KNEE SYNOVECTOMY MAJOR (Right: Knee) Location: [facility] / [place] Surgeons: Doug Quiroz MD Estimated body mass index is 27.78 kg/m? as calculated from the following: Height as of this encounter: 154.9 cm (5' 1"). Weight as of this encounter: 66.7 kg (147 lb). Most recent hematocrit and potassium results: Hematocrit 35.8 10/18/2022 Potassium 4.3 09/16/2022 Relevant Problems CARDIO (+) Peripheral arterial disease (HCC) (+) Premature atrial contraction ENDO (+) Type 2 diabetes mellitus with stage 3 chronic kidney disease, without long-term current use of insulin (HCC) -RENAL (+) Non-alcoholic fatty liver disease PULMONARY (+) Mucopurulent chronic bronchitis (HCC) Other (+) Shoulder impingement syndrome, right I - PHYSICAL EVALUATION AIRWAY Patient intubated: No. Tracheostomy tube not present Mallampati: II. TM distance: >3 FB. Neck ROM: full ROM without neurological symptoms. Mouth opening: adequate. Short neck: no. Thick neck: no DENTAL Dental findings: teeth intact. Dentures, upper: complete. Dentures, lower: partial. Additional exam findings: yes. CARDIOVASCULAR Rhythm: regular PULMONARY Breath sounds clear to auscultation. II - ANESTHESIA PLAN ASA Score: 3 Anesthetic Plan: general Airway type: LMA The patient is a current smoker. NPO Status: adequate Anesthetic plan additional comments: S/p Right . Beta Venkata Monitoring Plan Monitoring plan: Standard ASA. Post Procedure Analgesic Plan Postoperative analgesic plan: parenteral or oral opioids and multimodal analgesia. Informed Consent Anesthetic risks, benefits, alternatives, personnel and consent discussed: yes. Patient / Responsible Constitution Party agrees to proceed: yes Patient / Surrogate agrees to blood products: yes DNR status not reviewed with patient and/or family prior to surgery. Significant changes in the patient condition since the History and Physical, not otherwise documented in primary service progress note: no. Potential Anesthesia issues that may suggest increased risk of complications or contraindication to planned procedure: none. Vitals Value Taken Time BP 114/56 10/19/22 1200 Pulse 51 10/19/22 1200 Resp 16 10/19/22 1200 Temp 36.4 ?C (97.5 ?F) 10/19/22 1200 SpO2 97 % 10/19/22 1200 Facility-Administered Medications as of Medication Dose Route Frequency - lactated ringers iv infusion 5-30 mL/hr INTRAVENOUS CONTINUOUS Outpatient Medications as of Medication Sig - cefdinir (OMNICEF) 300 mg capsule Take 1 capsule by mouth twice daily. - zolpidem (AMBIEN) 10 mg Take 1 tablet by mouth at bedtime as needed (insomnia) for up to 90 days. - ibuprofen (MOTRIN) 800 mg tablet Take 1 tablet by mouth every 8 hours as needed for pain. Take with food. - imipramine HCl (TOFRANIL) 50 mg tablet Take 3 tablets by mouth daily at bedtime. - atorvastatin (LIPITOR) 20 mg tablet Take 1 tablet by mouth once daily. - buPROPion SR (WELLBUTRIN SR) 150 mg 12 hr tablet One pill by mouth once daily X 3 days, then increase to twice daily. Take second dose before 6PM. Try to stop smoking on day 5-7. - thiothixene (NAVANE) 1 mg capsule Take 2 capsules by mouth twice daily. - NIFEdipine XL (ADALAT CC) 30 mg 24 hr tablet take 1 tablet by mouth once daily - metFORMIN (GLUCOPHAGE) 500 mg tablet take 1 tablet by mouth once daily with dinner - lisinopril (ZESTRIL, PRINIVIL) 5 mg tablet take 1 tablet by mouth once daily - busPIRone (BUSPAR) 5 mg tablet Take 1 tablet by mouth three times daily as needed. - Melatonin 5 mg cap Take 1 capsule by mouth once daily. - cyclobenzaprine (FLEXERIL) 5 mg tablet Take 1 tablet by mouth three times daily as needed. - guaiFENesin (MUCINEX) 600 mg 12 hr tablet Take 2 tablets by mouth twice daily. (Patient not taking: Reported on 10/16/2022) - zolpidem (AMBIEN) 10 mg Take 1 tablet by mouth daily at bedtime for 30 days. Do not start before March 16, 2022. - ondansetron orally disintegrating (ZOFRAN ODT) 4 mg disintegrating tablet Take 1 tablet by mouth every 8 hours as needed for nausea/vomiting. - nicotine (NICODERM) 21 mg/24 hr Apply 1 Patch as directed every 24 hours. Apply a patch daily for 6 weeks, then start 14mg patches - nicotine (NICODERM) 14 mg/24 hr Apply 1 Patch as directed every 24 hours. No smoking with patch. Apply a patch daily for 2 weeks, then start 7mg patches (Patient not taking: Reported on 10/16/2022) - nicotine (NICODERM) 7 mg/24 hr Apply 1 Patch as directed every 24 hours. Apply a patch daily for 2 weeks (Patient not taking: Reported on 10/16/2022) - omeprazole (PRILOSEC) 20 mg capsule Take 1 capsule (more content not included)... Normal [facility] Bacteria Fld Culton 10-20-19 23 Bacteria identified Cx Nom (Body fld) ORGANISM ID: 1 Rare Staphylococcus aureus GRAM STAIN: Rare Gram positive cocci Many Polymorphonuclear leukocytes Gram stain from primary specimen ORGANISM ID: 1 (STAPHYLOCOCCUS AUREUS) --------- ANTIBIOTIC INTERPRETATION EMMA STATUS REFERENCE RANGE --------- Oxacillin S 0.5 F Susceptible <=2 , Resistant >2 Oxacillin-susceptible staphylococci are susceptible to other penicilllinase-stable penicillins, beta-lactam/beta-lactamase inhibitor combinations, anti-staphylococcal cephems, and carbapenems. Gentamicin S <=0.5 F Susceptible <=4 , Intermediate >4 , Resistant >8 Erythromycin R F Clindamycin R F Inducible clindamycin resistance detected. Trimeth sulfameth S <=10 F Susceptible <=40 , Resistant >40 Vancomycin S <=0.5 F Susceptible <=2 , Intermediate >2 , Resistant >8 Rifampin S <=0.5 F Susceptible <=1 , Intermediate >1 , Resistant >2 Rifampin should not be used alone for antimicrobial therapy. Tetracycline S <=1 F Susceptible <=4 , Intermediate >4 , Resistant >8 Doxycycline S <=0.5 F Susceptible <=4 , Intermediate >4 , Resistant >8 Abnormal [facility] Comment on above: Performed By: #### 6 35-3, 611-4 #### [facility] CLIA [id number] [place] [address] [place] Bacteria Spec Anaerobe Culto n 10-19-2022 Bacteria identified Anaer cx Nom (Unsp spec) Negative Normal [facility] Comment on above: Performed By: #### 6 35-3, 611-4 #### [facility] CLIA [id number] [address] [place] [address] [place] [id number] [place] HISTORY PHYSICALon HISTORY PHYSICAL HNO ID: [id number] Author: Doug Quiroz MD Service: Orthopaedic Surgery Author Type: Physician Type: HANDP Filed: 10/19/2022 1:54 PM Note Text: Doug Quiroz MD Department of Orthopaedics [address] [address] Dept: [phone] October 19, 2022 CHIEF COMPLAINT: Right knee pain. HPI This is a pleasant, 61-year-old female has been having some swelling and troubles with the right knee for about 8 days or so now. She went to urgent care a few times to get evaluated secondary to the swelling and pain in the knee. She was evaluated in emergency room and checked for a DVT. She then followed up with orthopedics and received a cortisone injection with aspiration in the aspiration unexpectedly showed staph aureus. Aspiration was then repeated to get full cell count and evaluation and it was certainly suspicious for an infectious process as opposed to inflammation or gout. ASSESSMENT: Right septic knee arthritis PLAN: I then spoke with the patient over the phone and we reviewed her clinical situation. She had not eaten yet and thus I asked her to come through the emergency room to get admitted so that we could get her in for an irrigation and debridement of her knee arthroscopically. The risks, benefits, alternatives and potential complications were discussed. She understood and wished to pursue surgery. OBJECTIVE: Ms. David Aldrich is a pleasant 61 year old in no apparent distress. Gen:BP 114/56 Pulse 51 Temp (Src) 97.5 (Temporal Artery) Resp 16 Ht 5' 1" (1.55m) Wt 147 lb (66.7kg) SpO2 97% LMP 11/13/2009 BMI 27.79 kg/(m2). O2 Therapy: Room Air nl development, thin-appearing , no deformities ENT: Normocephalic, normal hearing, moist mucosa Heart: with regular rate and rhythm. Lungs: very mild wheeze and otherwise clear. CV: Pulses:DP/PT= 1+ and symmetric, capillary refill < 2 secs, no peripheral edema/varicosities Skin: no rash, bruising or lesions. Good turgor. Psych: cooperative and appropriate, alert and oriented x 3, good mood and affect. Musculoskeletal: Right knee with a large effusion. Warm and red. Tender to palpation in the soft tissues. Limited range of motion. Labs: CRP of 9.2 ESR of 78 WBC of 11.89 Joint fluid with 96% neutrophils and a cell count of 96,000. Negative crystals First aspirate showed rare Staph aureus with sensitivities to follow. IMAGING: IMPRESSION: Advanced right patellofemoral compartment degenerative change. Ug Designer: PSCB Transcribe Date/Time: Oct 18 2022 9:04A Dictated by : EJ CORLEY MD This examination was interpreted and the report reviewed and electronically signed by: EJ CORLEY MD on Oct 18 2022 9:05AM EST Results-Findings * * *Final Report* * * DATE OF EXAM: Oct 16 2022 2:20PM WRX [id number] - XR KNEE 4V AP/PA BOTH+LAT/ALIREZA RT / PROCEDURE REASON: Right knee pain, unspecified chronicity * * * * Physician Interpretation * * * * EXAMINATION: XR KNEE 4V AP/PA BOTH+LAT/ALIREZA RT HISTORY: Pt. states swelling throughout her RT knee for 1 week. Pt. had an MRI and was told she had a Bakers cyst. No injury. Right knee pain, unspecified chronicity . TECHNIQUE: XR KNEE 4V AP/PA BOTH+LAT/ALIREZA RT Laterality: RIGHT Number of different views (projections): 4 M: XB_1 COMPARISON: RESULT: Advanced right patellofemoral compartment degenerative changes. There are minimal degenerative changes elsewhere in the right. Moderate right knee joint effusion. Mild left knee degenerative change greatest in the medial compartment. No acute fracture or dislocation. There are no bony erosions. Supporting Subjective Information Below: Past Medical History: PAST MEDICAL HISTORY Diagnosis Date Arrhythmia Bradycardia Diabetes mellitus with peripheral artery disease (HCC) 03/06/2015 H/O percutaneous left heart catheterization May, negative--[facility] History of rectal polypectomy 09/23/201712/2014: hyperplastic polyp Hyperlipidemia LDL goal < 100 01/25/2013 Hypertension Major depressive disorder, recurrent episode, unspecified Non-alcoholic fatty liver disease 10/13/2014 Other and unspecified hyperlipidemia Other chronic nonalcoholic liver disease 01/16 fatty liver disease Peripheral arterial disease (HCC) 03/06/2015 Recurrent major depressive disorder, in full remission (HCC) 03/10/2017 Snoring Type 2 diabetes mellitus with stage 3 chronic kidney disease, without long-term current use of insulin ([facility]) 05/11/2016 Past Surgical History: PAST SURGICAL HISTORY Procedure Laterality Date APPENDECTOMY 1971 CAROTID ENDARTERECTOMY 06/16/2012 Right carotid COLONOSCOPY 12/12/14 Repeat 2017 Family History: FAMILY HISTORY Problem Relation Age of Onset Heart Mother Diabetes Father other (Parkinson's disease [Other]) Brother Social History: Social History Tobacco Use Smoking status: Every Day (more content not included)... [facility] OPERATIVE NOon 10-19-2022 OPERATIVE NO HNO ID: [id number] Author: Doug Quiroz MD Service: Orthopaedic Surgery Author Type: Physician Type: Operative Report Filed: 10/19/2022 3:19 PM Note Text: OPERATIVE/PROCEDURE REPORT LOG ID: [id number] SURGERY/PROCEDURE DATE: 10/19/2022 INCISION/PROCEDURE START TIME: 2:18 PM INCISION CLOSE/PROCEDURE END TIME: 2:57 PM SURGEON(S)/PROCEDURALIST(S) AND FILM CASTING OPERATOR(S): Surgeon(s) and Role: * Doug Quiroz MD - Primary Registered Nurse Hse Manager: Carmen León RN SURGERY/PROCEDURE(S): Right knee, arthroscopic irrigation and debridement, synovectomy, major ANESTHESIA: General with local SURGERY/PROCEDURE DETAILS: Patient had knee aspiration and clinical findings of a septic knee arthritis. We reviewed the risks, benefits, alternatives and potential complications involving both operative and nonoperative treatment. She understood and wished to pursue surgery. On 10/19/2022, the patient was clearly identified in the preoperative area marked accordingly on the right knee by myself. She was taken the operative suite and placed in a supine position and anesthesia began an LMA anesthetic. The left lower extremity was placed in a well-padded stirrup. The right lower extremity had an arthroscopic leg clayton placed. All other bony landmarks were appropriately padded in standard fashion. Signed consent form was on the chart. The right lower extremity was then sterilely prepped and draped in standard fashion. An appropriate timeout was conducted and all in the room were in agreement, signed consent form was on the chart. The right lower extremity was elevated for exsanguination and the tourniquet was applied at 300 mmHg. Standard working portal was made after 1% lidocaine with 1 100,000 epinephrine was placed at the arthroscopic incision locations. Camera was placed atraumatically with 1 pass and an outflow portal was placed under direct visualization in the superior medial gutter. Copious amounts of purulent joint fluid was immediately identified and this was placed in a specimen cup and sent for the lab for evaluation. Lateral portal incision was made after spinal needle identification and a diagnostic exam was performed. Cloudy/purulent fluid was visualized through the arthroscope. she had areas of grade 3 and grade 4 cartilage loss on the undersurface of the patella especially on the lateral facet. There were areas that had better cartilage coverage. I came down in the medial gutter where there was a plica and then entered the medial joint. Spinal needle identification was allowing me to place my working portal. She had no meniscus tear and there were areas of grade 2 chondrosis on the distal femoral condyle. Some thinning areas on the medial tibial plateau but and again continuous lavage and shaving was being performed to clear up the cloudy joint. ACL and PCL were intact and there was a lot of synovitis in the center of the joint and then in the lateral joint there was just some very minor degenerative rim changes of the meniscus without any cartilage damage. While scoping and lavaging, palpation of the posterior joint continued to bring out more purulent fluid so I did use a switching stick into the posterior portion of the joint and placed my camera to continue lavaging. I did a thorough synovectomy both in the suprapatellar area down the medial and lateral gutters and fat pad and anterior and the joint as well. I lavaged with 9 L of normal saline and confirmed nice clear viewing windows and all 4 compartments including posteriorly. At this time, a Hemovac drain was placed in the lateral portal into the joint and the medial incision was closed Steri-Strips were applied Xeroform gauze, sterile 4 x 4's and ABDs with cotton padding and a super Joseph for final bandage. Plan will be to take the drain out tomorrow. She was safely awoken and transferred to the postanesthetic care unit in stable condition. PRE-OP/PRE-PROCEDURE DIAGNOSIS: Right knee, septic joint POST-OP/POST-PROCEDURE DIAGNOSIS: Same as Preop ESTIMATED BLOOD LOSS: 0 ml SPECIMENS: Culture sent IMPLANTABLE DEVICES: NONE DRAINS: Hemovac placed COMPLICATIONS: None CLOSURE TECHNIQUE: Primary PARTICIPATION IN SURGERY/PROCEDURE: I/primary surgeon/proceduralist performed the entire procedure. SIGNATURE: Doug Quiroz MD PATIENT NAME: David Aldrich DATE: October 19, 2022 TIME: 3:11 PM Normal [facility] CBC W Auto Differential pane l (Bld)on 10-18-2022 Basophils (Bld) [#/Vol] 0.05 10*3/uL <0.11 k/uL [facility] Basophils/100 WBC (Bld) 0.4 % [facility] Differential cell count method Nom (Bld) Auto [facility] Eosinophils (Bld) [#/Vol] 0.29 10*3/uL <0.46 k/uL [facility] Eosinophils/100 WBC (Bld) 2.4 % [facility] Erythrocyte distribution width (RBC) [Ratio] 12.6 % 11.5 - 15.0 % [facility] Hematocrit (Bld) [Volume fraction] 35.8 % Low 36.0 - 46.0 % [facility] Hemoglobin (Bld) [Mass/Vol] 12.4 g/dL 11.5 - 15.5 g/dL [facility] Immature granulocytes (Bld) [#/Vol] 0.06 10*3/uL <0.10 k/uL [facility] Immature granulocytes/100 WBC (Bld) 0.5 % [facility] Lymphocytes (Bld) [#/Vol] 2.42 10*3/uL 1.00 - 4.00 k/uL [facility] Lymphocytes/100 WBC (Bld) 20.4 % [facility] MCH (RBC) [Entitic mass] 31.8 pg 26.0 - 34.0 pg [facility] MCHC (RBC) [Mass/Vol] 34.6 g/dL 30.5 - 36.0 g/dL [facility] MCV (RBC) [Entitic vol] 91.8 fL 80.0 - 100.0 fL [facility] Monocytes (Bld) [#/Vol] 1.20 10*3/uL High <0.87 k/uL [facility] Monocytes/100 WBC (Bld) 10.1 % [facility] Neutrophils (Bld) [#/Vol] 7.87 10*3/uL High 1.45 - 7.50 k/uL [facility] Neutrophils/100 WBC (Bld) 66.2 % [facility] Nucleated RBC (Bld) [#/Vol] <0.01 k/uL [facility] Nucleated RBC/100 WBC (Bld) [Ratio] 0.0 /100 WBC [facility] Platelet mean volume (Bld) [Entitic vol] 8.8 fL Low 9.0 - 12.7 fL [facility] Platelets (Bld) [#/Vol] 537 10*3/uL High 150 - 400 k/uL [facility] RBC (Bld) [#/Vol] 3.90 10*6/uL 3.90 - 5.20 m/uL [facility] WBC (Bld) [#/Vol] 11.89 10*3/uL High 3.70 - 11.00 k/uL [facility] XR KNEE GENERAL 4V AP BOTH/P A BOTH/LAT/MERC RIGHTon 10-16-2022 [facility] Influenza virus A and B RNA and SARS-CoV-2 (COVID-19) N gene panel AVEL+probe (Resp)on 03-27-2022 FLUAV RNA AVEL+probe Ql (Unsp spec) Not detected Not Detected [facility] FLUBV RNA AVEL+probe Ql (Unsp spec) Not detected Not Detected [facility] SARS-CoV-2 (COVID-19) RNA AVEL+probe Ql (Resp) Not detected See comment [facility] GLUCOSE, BLOOD (POC)on 02-20 Glucose [Mass/Vol] 109 mg/dL Abnormal 74 - 99 mg/dL [facility] XR SHOULDER [id number] AP/MINE E AP RIGHTon 06-18-2021 [facility] XR Shoulder - right 2 Viewso n 06-18-2021 * * *Final Report* * * DATE OF EXAM: Jun 18 2021 3:39PM WOX 5255 - XR SHOULDER 2V AP/TRUE AP RT / PROCEDURE REASON: Nontraumatic complete tear of right rotator cuff * * * * Physician Interpretation * * * * Indication: Right shoulder pain Comparison: X-ray right shoulder 04/19/2020 2 views of the right shoulder are obtained. There is no acute fracture or dislocation. Joint spaces are maintained. Impression: 1. No acute fracture or dislocation. Ug Designer: CARLA Transcribe Date/Time: Jun 18 2021 3:42P Dictated by : LUCIANO NOYOLA MD This examination was interpreted and the report reviewed and electronically signed by: LUCIANO NOYOLA MD on Jun 18 2021 3:43PM EST [facility]_DO_NOT _USE_DIVIS ION OF RADIOLOGY Provider, Marcus Perry - 06/18/2021 * * *Final Report* * * DATE OF EXAM: Jun 18 2021 3:39PM WOX 5255 - XR SHOULDER 2V AP/TRUE AP RT / PROCEDURE REASON: Nontraumatic complete tear of right rotator cuff * * * * Physician Interpretation * * * * Indication: Right shoulder pain Comparison: X-ray right shoulder 04/19/2020 2 views of the right shoulder are obtained. There is no acute fracture or dislocation. Joint spaces are maintained. Impression: 1. No acute fracture or dislocation. Ug Designer: CARLA Transcribe Date/Time: Jun 18 2021 3:42P Dictated by : LUCIANO NOYOLA MD This examination was interpreted and the report reviewed and electronically signed by: LUCIANO NOYOLA MD on Jun 18 2021 3:43PM EST [facility] Radiology Study observation (narrative) [facility] XR Shoulder - right 2 ViewsO rdered By: Cc Provider on 06-18-2021 [facility] US ABD RT UPPER QUADRANTon 0 05-17-2021 [facility] XR Chest PA and Lateralon IMPRESSION: No acute radiographic abnormality. Ug Designer: CARLA Transcribe Date/Time: Jan 24 2021 11:11A Dictated by : BRETT RIVERA MD This examination was interpreted and the report reviewed and electronically signed by: BRETT RIVERA MD on Jan 24 2021 11:12AM [facility] DIVISION OF RADIOLOGY * * *Final Report* * * DATE OF EXAM: Jan 24 2021 11:10AM WOX 5291 - XR CHEST 2V FRONTAL/LAT / PROCEDURE REASON: SOB (shortness of breath) * * * * Physician Interpretation * * * * EXAMINATION: CHEST RADIOGRAPH (2 VIEW FRONTAL & LATERAL) CLINICAL HISTORY: SOB (shortness of breath) MQ: XC2_6 EXAM DATE/TIME: 01/24/2021 11:10 AM COMPARISON: Chest x-ray dated March 30, 2019 RESULT: Lines, tubes, and devices: None. Lungs and pleura: No consolidation. No lung mass. No pleural effusion. No pneumothorax. Cardiomediastinal silhouette: Stable cardiomediastinal silhouette. Bones and soft tissues: Degenerative changes are present within the thoracic spine. DIVISION OF RADIOLOGY Provider, Marcus Perry - 01/24/2021 * * *Final Report* * * DATE OF EXAM: Jan 24 2021 11:10AM WOX 5291 - XR CHEST 2V FRONTAL/LAT / PROCEDURE REASON: SOB (shortness of breath) * * * * Physician Interpretation * * * * EXAMINATION: CHEST RADIOGRAPH (2 VIEW FRONTAL & LATERAL) CLINICAL HISTORY: SOB (shortness of breath) MQ: XC2_6 EXAM DATE/TIME: 01/24/2021 11:10 AM COMPARISON: Chest x-ray dated March 30, 2019 RESULT: Lines, tubes, and devices: None. Lungs and pleura: No consolidation. No lung mass. No pleural effusion. No pneumothorax. Cardiomediastinal silhouette: Stable cardiomediastinal silhouette. Bones and soft tissues: Degenerative changes are present within the thoracic spine. IMPRESSION IMPRESSION: No acute radiographic abnormality. Ug Designer: PSCKota Transcribe Date/Time: Jan 24 2021 11:11A Dictated by : BRETT RIVERA MD This examination was interpreted and the report reviewed and electronically signed by: BRETT RIVERA MD on Jan 24 2021 11:12AM EST [facility] Radiology Study observation (narrative) [facility] XR Chest PA and LateralOrder ed By: Ccf Provider on 01-24-2021 [facility] EMERGENCY REPORTon [address] [facility] EM ERGENCY ROOM REPORT NAME ACCOUNT SEX AGE ADMIT DISCHARGE PT MED. RECORD# NUMBER DATE DATE TYPE DAVID ALDRICH [id number] F 57 12/22/17 12/22/17 [id number] ROOM: ER DATE OF : 1960 DICTATING PHYSICIAN: Israel Santo CHIEF COMPLAINT: Neck pain. HISTORY OF PRESENT ILLNESS: The patient states that she has had some discomfort to the left neck and cervical area over the last 2 weeks. She stated it is causing some mild headache and some ear pressure. She does not recall any specific injury or trauma. No nausea or vomiting. No fever. She states that she was just in [facility] for this and they "did not do anything", so she presents here for evaluation. She is mainly concerned that this is possibly from the left carotid artery as she had a right endarterectomy and she states that she does not want the left artery to cause her to have a stroke". She is not having any chest pain or shortness of breath. She states she recently had some laboratories drawn as an outpatient by Dr. Naranjo and is scheduled to follow up with him in the next couple of days. PAST MEDICAL HISTORY: Significant for type 2 diabetes, peripheral vascular disease. PAST SURGICAL HISTORY: She has had previous right endarterectomy. MEDICATIONS: Per med rec list. ALLERGIES: No allergies. SOCIAL HISTORY: She lives at home with her family. She does smoke. She does not drink alcohol. PHYSICAL EXAMINATION: This is a 57-year-old female alert, appropriate, pleasant, mildly anxious appearing, but in no apparent distress. She ambulates well. Her skin is pink, warm, and dry. She does not have any head or scalp injury. No areas of tenderness or swelling. HEENT: Pupils equal, round, and reactive to light. Extraocular muscles intact. Left TM and canal are completely normal. Nose: Normal. Mouth and throat: She has upper dentures. There are no intraoral lesions, redness, or exudate. No facial redness, swelling, or tenderness. She complains of some diffuse left lateral cervical and neck discomfort, but I cannot really elicit any tenderness with palpation to any area along there. She does not have any posterior cervical tenderness. She is able to move her head and neck well. She has no tenderness into her upper shoulders or arms. Her lungs are clear without crackles or wheezes. Cardiac exam is regular rhythm without ectopy, perhaps a very minimal systolic murmur present. No chest wall tenderness. She moves extremities appropriately. She has good peripheral pulses. Page 1 of 2 [facility] Emergency Room Report Capillary refill 1 to 2 seconds. Vital signs: Blood pressure 142/66, pulse 48, respirations 16, temperature 97.2, and her O2 saturation is 99%. EMERGENCY DEPARTMENT COURSE AND TREATMENT: The patient presents with some left cervical pain of uncertain cause. I explained that I see no evidence of any acute worrisome dangerous finding requiring immediate intervention. I did offer to do some laboratory studies, but she states that she just had some drawn recently and would like to follow up with her family doctor. PLAN/DISPOSITION: She is to return if any symptoms worsen or other symptoms develop. Dictated By: Israel Santo MD 12/22/17 09:16 JOB #: [id number] Transcribed By: am 12/22/17 17:30 Electronically signed by: ASHLEIGH Santo M.D. 01/02/18 07:29 Page 2 of 2 [facility] Emergency Room Report Normal [facility] Vital Signs Date Time Vital Sign Value Performing Clinician Facility 11-23-2024 16:00-0400 Body temperature 97.9 [degF] Lulu Haagen PROCESS OPERATOR-C Work Phone: [phone] [place] [address] 11-23-2024 16:00-0400 Diastolic blood pressure 63 mm[Hg] Lulu Haagen PROCESS OPERATOR-C Work Phone: [phone])[phone] [place] [address] 11-23-2024 16:00-0400 Heart rate 91 /min Lulu Haagen PROCESS OPERATOR-C Work Phone: 8(857)[phone] [place] [address] 11-23-2024 16:00-0400 Respiratory rate 18 /min Lulu Haagen PROCESS OPERATOR-C Work Phone: 1(449)[phone] [place] [address] 11-23-2024 16:00-0400 SaO2% (BldA) [Mass fraction] 94 % Lulu Haagen PROCESS OPERATOR-C Work Phone: [phone] [place] [address] 11-23-2024 16:00-0400 Systolic blood pressure 127 mm[Hg] Lulu Haagen PROCESS OPERATOR-C Work Phone: [phone] [place] [address] 11-23-2024 03:14-0400 Body mass index (BMI) [Ratio] 31.5 kg/m2 Lulu Haagen PROCESS OPERATOR-C Work Phone: 1([phone] [place] [address] 11-23-2024 03:14-0400 Body weight 75.7 kg Lulu Haagen PROCESS OPERATOR-C Work Phone: [phone] [place] [address] 11-22-2024 14:21-0400 Body height 154.94 cm Lulu Swanson PROCESS OPERATOR-C Work Phone: 1([phone] [place] [address] 11-22-2024 12:16-0400 Inhaled oxygen flow rate 2 L/min Lulu Swanson PROCESS OPERATOR-C Work Phone: [facility] 11-18-2024 21:15-0400 Inhaled oxygen concentration 28 % Lulu Swanson PROCESS OPERATOR-C Work Phone: [facility] 10-09-2024 13:45-0400 Body mass index (BMI) [Ratio] 28.37 kg/m2 Mark Swank ASSOCIATE PROFESSOR OF [employer]OMATION.[employer] Work Phone: [facility] 10-09-2024 13:45-0400 Body temperature 97.81 [degF] Mark Swank ASSOCIATE PROFESSOR OF AUTOMATION.[employer] Work Phone: [facility] 10-09-2024 13:45-0400 Body weight 71.5 kg Mark Swank ASSOCIATE PROFESSOR OF [employer]OMATION.[employer] Work Phone: [facility] 10-09-2024 13:45-0400 Diastolic blood pressure 70 mm[Hg] Mark Swank ASSOCIATE PROFESSOR OF [employer]OMATION.[employer] Work Phone: [facility] 10-09-2024 13:45-0400 Heart rate 68 /min Mark Swank ASSOCIATE PROFESSOR OF [employer]OMATION.[employer] Work Phone: [facility] 10-09-2024 13:45-0400 Respiratory rate 16 /min Mark Swank ASSOCIATE PROFESSOR OF [employer]ATION.[employer] Work Phone: [facility] 10-09-2024 13:45-0400 SaO2% (BldA) [Mass fraction] 99 % Mark Swank ASSOCIATE PROFESSOR OF [employer] Work Phone: [facility] 10-09-2024 13:45-0400 Systolic blood pressure 124 mm[Hg] Mark Swank ASSOCIATE PROFESSOR OF [employer]ATION.[employer] Work Phone: [facility] 10-01-2024 13:33-0400 Body mass index (BMI) [Ratio] 28.04 kg/m2 Lulu Hahenrietta ASSOCIATE PROFESSOR OF AUTOMATION.[employer] Work Phone: [facility] 10-01-2024 13:33-0400 Body weight 70.67 kg Lulu Haagen ASSOCIATE PROFESSOR OF AUTOMATION.[employer] Work Phone: [facility] 10-01-2024 13:33-0400 Diastolic blood pressure 72 mm[Hg] Lulu Haagen ASSOCIATE PROFESSOR OF AUTOMATION.[employer] Work Phone: [facility] 10-01-2024 13:33-0400 Heart rate 73 /min Lulu Haagen ASSOCIATE PROFESSOR OF AUTOMATION.[employer] Work Phone: [facility] 10-01-2024 13:33-0400 Respiratory rate 16 /min Lulu Haagen ASSOCIATE PROFESSOR OF AUTOMATION.[employer] Work Phone: [facility] 10-01-2024 13:33-0400 SaO2% (BldA) [Mass fraction] 98 % Lulu Haagen ASSOCIATE PROFESSOR OF AUTOMATION.[employer] Work Phone: [facility] 10-01-2024 13:33-0400 Systolic blood pressure 117 mm[Hg] Lulu Haagen ASSOCIATE PROFESSOR OF AUTOMATION.[employer] Work Phone: [facility] 09-24-2024 11:00-0400 Body mass index (BMI) [Ratio] 27.9 kg/m2 Lulu Haagen ASSOCIATE PROFESSOR OF AUTOMATION.[employer] Work Phone: [facility] 09-24-2024 11:00-0400 Body weight 70.31 kg Lulu Haagen ASSOCIATE PROFESSOR OF AUTOMATION.[employer] Work Phone: [facility] 09-24-2024 11:00-0400 Diastolic blood pressure 72 mm[Hg] Lulu Haagen ASSOCIATE PROFESSOR OF AUTOMATION.[employer] Work Phone: [facility] 09-24-2024 11:00-0400 Heart rate 99 /min Lulu Haagen ASSOCIATE PROFESSOR OF AUTOMATION.[employer] Work Phone: [facility] 09-24-2024 11:00-0400 Respiratory rate 16 /min Lulu Haagen ASSOCIATE PROFESSOR OF AUTOMATION.[employer] Work Phone: [facility] 09-24-2024 11:00-0400 SaO2% (BldA) [Mass fraction] 99 % Lluu Haagen ASSOCIATE PROFESSOR OF AUTOMATION.[employer] Work Phone: [facility] 09-24-2024 11:00-0400 Systolic blood pressure 110 mm[Hg] Lulu Haagen ASSOCIATE PROFESSOR OF AUTOMATION.[employer] Work Phone: [facility] 06-22-2024 10:42-0400 Body mass index (BMI) [Ratio] 27.9 kg/m2 Pulm Wstr Work Phone: [facility] 06-22-2024 10:42-0400 Body weight 70.31 kg Pulm Wstr Work Phone: [facility] 06-22-2024 10:29-0400 Body mass index (BMI) [Ratio] 27.9 kg/m2 Dani Click ASSOCIATE PROFESSOR OF AUTOMATION.[employer] Work Phone: [facility] 06-22-2024 10:29-0400 Body weight 70.31 kg Dani Click ASSOCIATE PROFESSOR OF AUTOMATION.[employer] Work Phone: [facility] 06-22-2024 10:29-0400 Diastolic blood pressure 70 mm[Hg] Dani Click ASSOCIATE PROFESSOR OF AUTOMATION.[employer] Work Phone: [facility] 06-22-2024 10:29-0400 Heart rate 71 /min Dani Click ASSOCIATE PROFESSOR OF AUTOMATION.[employer] Work Phone: [facility] 06-22-2024 10:29-0400 Respiratory rate 15 /min Dani Click ASSOCIATE PROFESSOR OF AUTOMATION.[employer] Work Phone: [facility] 06-22-2024 10:29-0400 SaO2% (BldA) [Mass fraction] 97 % Dani Click ASSOCIATE PROFESSOR OF AUTOMATION.[employer] Work Phone: [facility] 06-22-2024 10:29-0400 Systolic blood pressure 118 mm[Hg] Dani Click ASSOCIATE PROFESSOR OF AUTOMATION.[employer] Work Phone: [facility] 05-25-2024 10:32-0400 Body mass index (BMI) [Ratio] 28.26 kg/m2 Lulu Haagen ASSOCIATE PROFESSOR OF AUTOMATION.[employer] Work Phone: [facility] 05-25-2024 10:32-0400 Body weight 71.22 kg Lulu Haagen ASSOCIATE PROFESSOR OF AUTOMATION.[employer] Work Phone: [facility] 05-25-2024 10:32-0400 Diastolic blood pressure 80 mm[Hg] Lulu Haagen ASSOCIATE PROFESSOR OF AUTOMATION.[employer] Work Phone: [facility] 05-25-2024 10:32-0400 Heart rate 75 /min Lulu Haagen ASSOCIATE PROFESSOR OF AUTOMATION.[employer] Work Phone: [facility] 05-25-2024 10:32-0400 Respiratory rate 16 /min Lulu Haagen ASSOCIATE PROFESSOR OF AUTOMATION.[employer] Work Phone: [facility] 05-25-2024 10:32-0400 SaO2% (BldA) [Mass fraction] 91 % Lulu Haagen ASSOCIATE PROFESSOR OF AUTOMATION.[employer] Work Phone: [facility] 05-25-2024 10:32-0400 Systolic blood pressure 114 mm[Hg] Lulu Haagen ASSOCIATE PROFESSOR OF AUTOMATION.[employer] Work Phone: [facility] 05-02-2024 10:59-0400 Body mass index (BMI) [Ratio] 28.17 kg/m2 Rianna Praisler-Wood ASSOCIATE PROFESSOR OF AUTOMATION.[employer] Work Phone: [facility] 05-02-2024 10:59-0400 Body temperature 97.81 [degF] Rianna Praisler-Wood ASSOCIATE PROFESSOR OF AUTOMATION.[employer] Work Phone: [facility] 05-02-2024 10:59-0400 Body weight 71 kg Rianna Praisler-Wood ASSOCIATE PROFESSOR OF AUTOMATION.[employer] Work Phone: [facility] 05-02-2024 10:59-0400 Diastolic blood pressure 68 mm[Hg] Rianna Praisler-Wood ASSOCIATE PROFESSOR OF AUTOMATION.[employer] Work Phone: [facility] 05-02-2024 10:59-0400 Heart rate 74 /min Rianna Praisler-Wood ASSOCIATE PROFESSOR OF AUTOMATION.[employer] Work Phone: [facility] Comment on above: irregular 05-02-2024 10:59-0400 Respiratory rate 24 /min Rianna Praisler-Wood ASSOCIATE PROFESSOR OF AUTOMATION.[employer] Work Phone: [facility] 05-02-2024 10:59-0400 SaO2% (BldA) [Mass fraction] 99 % Rianna Praisler-Wood ASSOCIATE PROFESSOR OF AUTOMATION.[employer] Work Phone: [facility] 05-02-2024 10:59-0400 Systolic blood pressure 106 mm[Hg] Rianna Wilkerson APRN.[employer] Work Phone: [facility] 02-09-2024 10:40-0500 Body height 158.8 cm Dipesh Leong MD Work Phone: [facility] 02-09-2024 10:40-0500 Body mass index (BMI) [Ratio] 27.93 kg/m2 Dipesh Leong MD Work Phone: [facility] 02-09-2024 10:40-0500 Body temperature 97.3 [degF] Dipesh Leong MD Work Phone: [facility] 02-09-2024 10:40-0500 Body weight 70.4 kg Dipesh Leong MD Work Phone: [facility] 02-09-2024 10:40-0500 Diastolic blood pressure 77 mm[Hg] Dipesh Leong MD Work Phone: [facility] 02-09-2024 10:40-0500 Heart rate 106 /min Dipesh Leong MD Work Phone: [facility] 02-09-2024 10:40-0500 SaO2% (BldA) [Mass fraction] 91 % Dipesh Leong MD Work Phone: [facility] 02-09-2024 10:40-0500 Systolic blood pressure 148 mm[Hg] Dipesh Leong MD Work Phone: [facility] 01-13-2024 09:26-0500 Diastolic blood pressure 82 mm[Hg] Luul Swanson ASSOCIATE PROFESSOR OF AUTOMATION.[employer] Work Phone: [facility] 01-13-2024 09:26-0500 Heart rate 84 /min Lulu Haagen ASSOCIATE PROFESSOR OF AUTOMATION.[employer] Work Phone: [facility] 01-13-2024 09:26-0500 Respiratory rate 16 /min Lulu Swanosn ASSOCIATE PROFESSOR OF AUTOMATION.[employer] Work Phone: [facility] 01-13-2024 09:26-0500 Systolic blood pressure 124 mm[Hg] Lulu Haagen ASSOCIATE PROFESSOR OF AUTOMATION.[employer] Work Phone: [facility] 12-30-2023 10:30-0500 Body mass index (BMI) [Ratio] 28.55 kg/m2 Lulu Haagen ASSOCIATE PROFESSOR OF AUTOMATION.[employer] Work Phone: [facility] 12-30-2023 10:30-0500 Body weight 68.95 kg Lulu Haagen ASSOCIATE PROFESSOR OF AUTOMATION.[employer] Work Phone: [facility] 12-30-2023 10:30-0500 Diastolic blood pressure 76 mm[Hg] Lulu Haagen ASSOCIATE PROFESSOR OF AUTOMATION.[employer] Work Phone: [facility] 12-30-2023 10:30-0500 Heart rate 95 /min Lulu Haagen ASSOCIATE PROFESSOR OF AUTOMATION.[employer] Work Phone: [facility] 12-30-2023 10:30-0500 Respiratory rate 16 /min Lulu Haagen ASSOCIATE PROFESSOR OF AUTOMATION.[employer] Work Phone: [facility] 12-30-2023 10:30-0500 SaO2% (BldA) [Mass fraction] 95 % Lulu Haagen ASSOCIATE PROFESSOR OF AUTOMATION.[employer] Work Phone: [facility] 12-30-2023 10:30-0500 Systolic blood pressure 124 mm[Hg] Lulu Haagen ASSOCIATE PROFESSOR OF AUTOMATION.[employer] Work Phone: [facility] 12-18-2023 13:39-0500 Body height 155.4 cm Pulm Wstr Work Phone: [facility] 12-18-2023 13:39-0500 Body mass index (BMI) [Ratio] 28.36 kg/m2 Pulm Wstr Work Phone: [facility] 12-18-2023 13:39-0500 Body weight 68.49 kg Pulm Wstr Work Phone: [facility] 12-18-2023 13:39-0500 Heart rate 50 /min Pulm Wstr Work Phone: [facility] 12-18-2023 13:39-0500 Respiratory rate 15 /min Pulm Wstr Work Phone: [facility] 12-18-2023 13:39-0500 SaO2% (BldA) [Mass fraction] 98 % Pulm Wstr Work Phone: [facility] 2023 09:42-0400 Body mass index (BMI) [Ratio] 28.72 kg/m2 Adwoa Hemphill ASSOCIATE PROFESSOR OF AUTOMATION.[employer] Work Phone: [facility] 2023 09:42-0400 Body weight 68.95 kg Adwoa Dumaster ASSOCIATE PROFESSOR OF AUTOMATION.[employer] Work Phone: [facility] 2023 09:42-0400 Diastolic blood pressure 74 mm[Hg] Adwoa Hemphill ASSOCIATE PROFESSOR OF AUTOMATION.[employer] Work Phone: [facility] 2023 09:42-0400 Heart rate 70 /min Adwoa Hemphill ASSOCIATE PROFESSOR OF AUTOMATION.[employer] Work Phone: [facility] 2023 09:42-0400 Respiratory rate 15 /min Adwoa Hemphill ASSOCIATE PROFESSOR OF AUTOMATION.[employer] Work Phone: [facility] 2023 09:42-0400 SaO2% (BldA) [Mass fraction] 95 % Adwoa Dovepster ASSOCIATE PROFESSOR OF AUTOMATION.[employer] Work Phone: [facility] 2023 09:42-0400 Systolic blood pressure 122 mm[Hg] Adwoa Hemphill ASSOCIATE PROFESSOR OF AUTOMATION.[employer] Work Phone: [facility] 11-05-2023 11:19-0400 Body mass index (BMI) [Ratio] 28.72 kg/m2 Lulu Swanson ASSOCIATE PROFESSOR OF AUTOMATION.[employer] Work Phone: [facility] 11-05-2023 11:19-0400 Body weight 68.95 kg Lulu Swanson ASSOCIATE PROFESSOR OF AUTOMATION.[employer] Work Phone: [facility] 11-05-2023 11:19-0400 Diastolic blood pressure 72 mm[Hg] Lulu Swanson ASSOCIATE PROFESSOR OF AUTOMATION.[employer] Work Phone: [facility] 11-05-2023 11:19-0400 Heart rate 54 /min Lulu Swanson ASSOCIATE PROFESSOR OF AUTOMATION.[employer] Work Phone: [facility] 11-05-2023 11:19-0400 Respiratory rate 16 /min Lulu Swanson ASSOCIATE PROFESSOR OF AUTOMATION.[employer] Work Phone: [facility] 11-05-2023 11:19-0400 SaO2% (BldA) [Mass fraction] 96 % Lulu Swanson ASSOCIATE PROFESSOR OF AUTOMATION.[employer] Work Phone: [facility] 11-05-2023 11:19-0400 Systolic blood pressure 124 mm[Hg] Lulu Swanson ASSOCIATE PROFESSOR OF AUTOMATION.[employer] Work Phone: [facility] 10-10-2023 11:10-0400 Body mass index (BMI) [Ratio] 28.74 kg/m2 Anju Garcia APRN.[employer] Work Phone: [facility] 10-10-2023 11:10-0400 Body temperature 98.4 [degF] Anju Garcia APRN.[employer] Work Phone: [facility] 10-10-2023 11:10-0400 Body weight 69 kg Anju Garcia APRN.[employer] Work Phone: [facility] 10-10-2023 11:10-0400 Diastolic blood pressure 62 mm[Hg] Anju Garcia APRN.[employer] Work Phone: [facility] 10-10-2023 11:10-0400 Heart rate 78 /min Anju Garcia APRN.[employer] Work Phone: [facility] 10-10-2023 11:10-0400 Respiratory rate 18 /min Anju Garcia APRN.[employer] Work Phone: [facility] 10-10-2023 11:10-0400 SaO2% (BldA) [Mass fraction] 96 % Anju Garcia APRN.[employer] Work Phone: [facility] 10-10-2023 11:10-0400 Systolic blood pressure 131 mm[Hg] Anju Garcia ASSOCIATE PROFESSOR OF AUTOMATION.[employer] Work Phone: [facility] 09-09-2023 14:49-0400 Diastolic blood pressure 70 mm[Hg] Ana Paula Bogner PA-C Work Phone: [facility] 09-09-2023 14:49-0400 Systolic blood pressure 120 mm[Hg] Ana Paula Bogner PA-C Work Phone: [facility] 09-09-2023 14:18-0400 Body height 154.9 cm Ana Paula Bogner PA-C Work Phone: [facility] 09-09-2023 14:18-0400 Body mass index (BMI) [Ratio] 28.72 kg/m2 Ana Paula Bogner PA-C Work Phone: [facility] 09-09-2023 14:18-0400 Body weight 68.95 kg Ana Paula Bogner PA-C Work Phone: [facility] 09-09-2023 14:18-0400 Heart rate 90 /min Ana Paula Bogner PA-C Work Phone: [facility] 09-09-2023 14:18-0400 Respiratory rate 12 /min Ana Paula Bogner PA-C Work Phone: [facility] 09-09-2023 14:18-0400 SaO2% (BldA) [Mass fraction] 97 % Ana Paula Bogner PA-C Work Phone: [facility] 09-07-2023 09:59-0400 Body mass index (BMI) [Ratio] 29.2 kg/m2 Juan Moomaw ASSOCIATE PROFESSOR OF AUTOMATION.[employer] Work Phone: [facility] 09-07-2023 09:59-0400 Body temperature 97.3 [degF] Juan Moomaw ASSOCIATE PROFESSOR OF AUTOMATION.[employer] Work Phone: [facility] 09-07-2023 09:59-0400 Body weight 70.1 kg Juan Moomaw ASSOCIATE PROFESSOR OF AUTOMATION.[employer] Work Phone: [facility] 09-07-2023 09:59-0400 Diastolic blood pressure 76 mm[Hg] Juan Moomaw ASSOCIATE PROFESSOR OF AUTOMATION.[employer] Work Phone: [facility] 09-07-2023 09:59-0400 Heart rate 75 /min Juan Moomaw ASSOCIATE PROFESSOR OF AUTOMATION.[employer] Work Phone: [facility] 09-07-2023 09:59-0400 Respiratory rate 21 /min Juan Moomaw ASSOCIATE PROFESSOR OF AUTOMATION.[employer] Work Phone: [facility] 09-07-2023 09:59-0400 SaO2% (BldA) [Mass fraction] 96 % Juan Moomaw ASSOCIATE PROFESSOR OF AUTOMATION.[employer] Work Phone: [facility] 09-07-2023 09:59-0400 Systolic blood pressure 140 mm[Hg] Juan Moomaw ASSOCIATE PROFESSOR OF AUTOMATION.[employer] Work Phone: [facility] 08-06-2023 11:37-0400 Body mass index (BMI) [Ratio] 28.74 kg/m2 Anju Garcia APRN.[employer] Work Phone: [facility] 08-06-2023 11:37-0400 Body temperature 98.2 [degF] Anju Garcia APRN.[employer] Work Phone: [facility] 08-06-2023 11:37-0400 Body weight 69 kg Anju Garcia APRN.[employer] Work Phone: [facility] 08-06-2023 11:37-0400 Diastolic blood pressure 80 mm[Hg] Anju Garcia APRN.[employer] Work Phone: [facility] 08-06-2023 11:37-0400 Heart rate 62 /min Anju Garcia APRN.[employer] Work Phone: [facility] 08-06-2023 11:37-0400 Respiratory rate 16 /min Anju Garcia APRN.[employer] Work Phone: [facility] 08-06-2023 11:37-0400 SaO2% (BldA) [Mass fraction] 97 % Anju Marti ASSOCIATE PROFESSOR OF AUTOMATION.[employer] Work Phone: [facility] 08-06-2023 11:37-0400 Systolic blood pressure 128 mm[Hg] Anju Garcia ASSOCIATE PROFESSOR OF AUTOMATION.[employer] Work Phone: [facility] 06-06-2023 13:10-0400 Body mass index (BMI) [Ratio] 28.15 kg/m2 Stephanie Lanza MD Work Phone: [facility] 06-06-2023 13:10-0400 Body weight 67.59 kg Stephanie Lanza MD Work Phone: [facility] 06-06-2023 13:10-0400 Diastolic blood pressure 68 mm[Hg] Stephanie Lanza MD Work Phone: [facility] 06-06-2023 13:10-0400 Heart rate 51 /min Stephanie Lanza MD Work Phone: [facility] 06-06-2023 13:10-0400 SaO2% (BldA) [Mass fraction] 97 % Stephanie Lanza MD Work Phone: [facility] 06-06-2023 13:10-0400 Systolic blood pressure 114 mm[Hg] Stephanie Lanza MD Work Phone: [facility] 04-29-2023 09:43-0400 Body weight 68.04 kg Lulu Swanson ASSOCIATE PROFESSOR OF AUTOMATION.[employer] Work Phone: [facility] 04-29-2023 09:43-0400 Diastolic blood pressure 76 mm[Hg] Lulu Swanson ASSOCIATE PROFESSOR OF AUTOMATION.[employer] Work Phone: [facility] 04-29-2023 09:43-0400 Heart rate 72 /min Lulu Haagen ASSOCIATE PROFESSOR OF AUTOMATION.[employer] Work Phone: [facility] 04-29-2023 09:43-0400 Respiratory rate 16 /min Lulu Haagen ASSOCIATE PROFESSOR OF AUTOMATION.[employer] Work Phone: [facility] 04-29-2023 09:43-0400 SaO2% (BldA) [Mass fraction] 99 % Lulu Swanson ASSOCIATE PROFESSOR OF AUTOMATION.[employer] Work Phone: [facility] 04-29-2023 09:43-0400 Systolic blood pressure 122 mm[Hg] Lulu Haagen ASSOCIATE PROFESSOR OF AUTOMATION.[employer] Work Phone: [facility] 10-15-2022 16:50-0400 Body temperature 100.6 [degF] Rianna Praisler-Wood ASSOCIATE PROFESSOR OF AUTOMATION.[employer] Work Phone: [facility] 10-15-2022 16:50-0400 Body weight 67.59 kg Rianna Praisler-Wood ASSOCIATE PROFESSOR OF AUTOMATION.[employer] Work Phone: [facility] 10-15-2022 16:50-0400 Diastolic blood pressure 64 mm[Hg] Rianna Praisler-Wood ASSOCIATE PROFESSOR OF AUTOMATION.[employer] Work Phone: [facility] 10-15-2022 16:50-0400 Heart rate 102 /min Rianna Praisler-Wood ASSOCIATE PROFESSOR OF AUTOMATION.[employer] Work Phone: [facility] 10-15-2022 16:50-0400 Respiratory rate 18 /min Rianna Praisler-Wood ASSOCIATE PROFESSOR OF AUTOMATION.[employer] Work Phone: [facility] 10-15-2022 16:50-0400 SaO2% (BldA) [Mass fraction] 100 % Rianna Praisler-Wood ASSOCIATE PROFESSOR OF AUTOMATION.[employer] Work Phone: [facility] 10-15-2022 16:50-0400 Systolic blood pressure 102 mm[Hg] Rianna Praisler-Wood ASSOCIATE PROFESSOR OF AUTOMATION.[employer] Work Phone: [facility] 10-11-2022 09:13-0400 Body temperature 99.61 [degF] Helga Shayy ASSOCIATE PROFESSOR OF AUTOMATION.[employer] Work Phone: [facility] 10-11-2022 09:13-0400 Body weight 64.95 kg Helga Shayy ASSOCIATE PROFESSOR OF AUTOMATION.[employer] Work Phone: [facility] 10-11-2022 09:13-0400 Diastolic blood pressure 68 mm[Hg] Helga Shayy ASSOCIATE PROFESSOR OF AUTOMATION.[employer] Work Phone: [facility] 10-11-2022 09:13-0400 Heart rate 91 /min Helga Shayy ASSOCIATE PROFESSOR OF AUTOMATION.[employer] Work Phone: [facility] 10-11-2022 09:13-0400 Respiratory rate 20 /min Helga Shayy ASSOCIATE PROFESSOR OF AUTOMATION.[employer] Work Phone: [facility] 10-11-2022 09:13-0400 SaO2% (BldA) [Mass fraction] 99 % Helga Shayy ASSOCIATE PROFESSOR OF AUTOMATION.[employer] Work Phone: [facility] 10-11-2022 09:13-0400 Systolic blood pressure 154 mm[Hg] Helga Lucas ASSOCIATE PROFESSOR OF AUTOMATION.[employer] Work Phone: [facility] 10-09-2022 17:56-0400 Diastolic blood pressure 74 mm[Hg] [facility] 10-09-2022 17:56-0400 Heart rate 79 /min [facility] 10-09-2022 17:56-0400 Respiratory rate 16 /min [facility] 10-09-2022 17:56-0400 SaO2% (BldA) [Mass fraction] 99 % [facility] 10-09-2022 17:56-0400 Systolic blood pressure 124 mm[Hg] [facility] 10-09-2022 17:09-0400 Body height 154.94 cm [facility] 10-09-2022 17:09-0400 Body mass index (BMI) [Ratio] 26.8 kg/m2 [facility] 10-09-2022 17:09-0400 Body temperature 96.5 [degF] [facility] 10-09-2022 17:09-0400 Body weight 64.45 kg [facility] 10-09-2022 16:21-0400 Body temperature 98.49 [degF] Domenic Christine ASSOCIATE PROFESSOR OF AUTOMATION.[employer] Work Phone: [facility] 10-09-2022 16:21-0400 Body weight 64.41 kg Domenic Christine ASSOCIATE PROFESSOR OF AUTOMATION.[employer] Work Phone: [facility] 10-09-2022 16:21-0400 Diastolic blood pressure 72 mm[Hg] Domenic Christine ASSOCIATE PROFESSOR OF AUTOMATION.[employer] Work Phone: [facility] 10-09-2022 16:21-0400 Heart rate 88 /min Domenic Emmett ASSOCIATE PROFESSOR OF AUTOMATION.[employer] Work Phone: [facility] 10-09-2022 16:21-0400 Respiratory rate 16 /min Domenic Emmett ASSOCIATE PROFESSOR OF AUTOMATION.[employer] Work Phone: [facility] 10-09-2022 16:21-0400 SaO2% (BldA) [Mass fraction] 97 % Domenic Emmett ASSOCIATE PROFESSOR OF AUTOMATION.[employer] Work Phone: [facility] 10-09-2022 16:21-0400 Systolic blood pressure 126 mm[Hg] Domenic Emmett ASSOCIATE PROFESSOR OF AUTOMATION.[employer] Work Phone: [facility] 09-16-2022 12:55-0400 Body weight 65.32 kg Lulu Haagen ASSOCIATE PROFESSOR OF AUTOMATION.[employer] Work Phone: [facility] 09-16-2022 12:55-0400 Diastolic blood pressure 72 mm[Hg] Lulu Haagen ASSOCIATE PROFESSOR OF AUTOMATION.[employer] Work Phone: [facility] 09-16-2022 12:55-0400 Heart rate 80 /min Lulu Haagen ASSOCIATE PROFESSOR OF AUTOMATION.[employer] Work Phone: [facility] 09-16-2022 12:55-0400 Respiratory rate 16 /min Lulu Haagen ASSOCIATE PROFESSOR OF AUTOMATION.[employer] Work Phone: [facility] 09-16-2022 12:55-0400 SaO2% (BldA) [Mass fraction] 95 % Lulu Haagen ASSOCIATE PROFESSOR OF AUTOMATION.[employer] Work Phone: [facility] 09-16-2022 12:55-0400 Systolic blood pressure 138 mm[Hg] Lulu Haagen ASSOCIATE PROFESSOR OF AUTOMATION.[employer] Work Phone: [facility] 05-22-2022 11:21-0400 Body weight 67.59 kg Lulu Haagen ASSOCIATE PROFESSOR OF AUTOMATION.[employer] Work Phone: [facility] 05-22-2022 11:21-0400 Diastolic blood pressure 72 mm[Hg] Lulu Haagen ASSOCIATE PROFESSOR OF AUTOMATION.[employer] Work Phone: [facility] 05-22-2022 11:21-0400 Heart rate 75 /min Lulu Haagen ASSOCIATE PROFESSOR OF AUTOMATION.[employer] Work Phone: [facility] 05-22-2022 11:21-0400 Respiratory rate 18 /min Lulu Haagen ASSOCIATE PROFESSOR OF AUTOMATION.[employer] Work Phone: [facility] 05-22-2022 11:21-0400 SaO2% (BldA) [Mass fraction] 95 % Lulu Haagen ASSOCIATE PROFESSOR OF AUTOMATION.[employer] Work Phone: [facility] 05-22-2022 11:21-0400 Systolic blood pressure 124 mm[Hg] Lulu Haagen ASSOCIATE PROFESSOR OF AUTOMATION.[employer] Work Phone: [facility] 04-09-2022 09:23-0500 Body weight 68.95 kg Lulu Haagen ASSOCIATE PROFESSOR OF AUTOMATION.[employer] Work Phone: [facility] 04-09-2022 09:23-0500 Diastolic blood pressure 84 mm[Hg] Lulu Haagen ASSOCIATE PROFESSOR OF AUTOMATION.[employer] Work Phone: [facility] 04-09-2022 09:23-0500 Heart rate 76 /min Lulu Haagen ASSOCIATE PROFESSOR OF AUTOMATION.[employer] Work Phone: [facility] 04-09-2022 09:23-0500 Respiratory rate 18 /min Lulu Haagen ASSOCIATE PROFESSOR OF AUTOMATION.[employer] Work Phone: [facility] 04-09-2022 09:23-0500 SaO2% (BldA) [Mass fraction] 97 % Lulu Haagen ASSOCIATE PROFESSOR OF AUTOMATION.[employer] Work Phone: [facility] 04-09-2022 09:23-0500 Systolic blood pressure 132 mm[Hg] Lulu Haagen ASSOCIATE PROFESSOR OF AUTOMATION.[employer] Work Phone: [facility] 03-27-2022 14:43-0500 Body weight 68.95 kg Lulu Haagen ASSOCIATE PROFESSOR OF AUTOMATION.[employer] Work Phone: [facility] 03-27-2022 14:43-0500 Diastolic blood pressure 70 mm[Hg] Lulu Haagen ASSOCIATE PROFESSOR OF AUTOMATION.[employer] Work Phone: [facility] 03-27-2022 14:43-0500 Heart rate 80 /min Lulu Haagen ASSOCIATE PROFESSOR OF AUTOMATION.[employer] Work Phone: [facility] 03-27-2022 14:43-0500 Respiratory rate 18 /min Lulu Haagen ASSOCIATE PROFESSOR OF AUTOMATION.[employer] Work Phone: [facility] 03-27-2022 14:43-0500 SaO2% (BldA) [Mass fraction] 95 % Lulu Haagen ASSOCIATE PROFESSOR OF AUTOMATION.[employer] Work Phone: [facility] 03-27-2022 14:43-0500 Systolic blood pressure 120 mm[Hg] Lulu Haagen ASSOCIATE PROFESSOR OF AUTOMATION.[employer] Work Phone: [facility] 02-20-2022 15:27-0500 Body temperature 98.1 [degF] Jo Ann Vivar ASSOCIATE PROFESSOR OF AUTOMATION.[employer] Work Phone: [facility] 02-20-2022 15:27-0500 Body weight 70.67 kg Jo Ann Vivar ASSOCIATE PROFESSOR OF AUTOMATION.[employer] Work Phone: [facility] 02-20-2022 15:27-0500 Diastolic blood pressure 82 mm[Hg] Jo Ann Vivar ASSOCIATE PROFESSOR OF AUTOMATION.[employer] Work Phone: [facility] 02-20-2022 15:27-0500 Heart rate 85 /min Jo Ann Vivar ASSOCIATE PROFESSOR OF AUTOMATION.[employer] Work Phone: [facility] 02-20-2022 15:27-0500 Respiratory rate 21 /min Jo Ann Vivar ASSOCIATE PROFESSOR OF AUTOMATION.[employer] Work Phone: [facility] 02-20-2022 15:27-0500 SaO2% (BldA) [Mass fraction] 98 % Jo Ann Vivar ASSOCIATE PROFESSOR OF AUTOMATION.[employer] Work Phone: [facility] 02-20-2022 15:27-0500 Systolic blood pressure 132 mm[Hg] Jo Ann Vivar ASSOCIATE PROFESSOR OF AUTOMATION.[employer] Work Phone: [facility] 01-21-2022 10:07-0500 Body height 154.9 cm Anya John MD Work Phone: [facility] 01-21-2022 10:07-0500 Body temperature 97.11 [degF] Anya John MD Work Phone: [facility] 01-21-2022 10:07-0500 Body weight 72.12 kg Anya John MD Work Phone: [facility] 01-21-2022 10:07-0500 Diastolic blood pressure 70 mm[Hg] Anya John MD Work Phone: [facility] 01-21-2022 10:07-0500 Heart rate 48 /min Anya John MD Work Phone: [facility] 01-21-2022 10:07-0500 SaO2% (BldA) [Mass fraction] 97 % Anya John MD Work Phone: [facility] 01-21-2022 10:07-0500 Systolic blood pressure 138 mm[Hg] Anya John MD Work Phone: [facility] 12-31-2021 14:46-0500 Body temperature 98.29 [degF] Anju Garcia APRN.[employer] Work Phone: [facility] 12-31-2021 14:46-0500 Body weight 71.67 kg Anju Garcia APRN.[employer] Work Phone: [facility] 12-31-2021 14:46-0500 Diastolic blood pressure 72 mm[Hg] Anju Garcia APRN.[employer] Work Phone: [facility] 12-31-2021 14:46-0500 Heart rate 90 /min Anju Garcia APRN.[employer] Work Phone: [facility] 12-31-2021 14:46-0500 Respiratory rate 16 /min Anju Garcia APRN.[employer] Work Phone: [facility] 12-31-2021 14:46-0500 SaO2% (BldA) [Mass fraction] 98 % Anju Garcia APRN.[employer] Work Phone: [facility] 12-31-2021 14:46-0500 Systolic blood pressure 128 mm[Hg] Anju Garcia APRN.[employer] Work Phone: [facility] 12-14-2021 11:10-0400 Body temperature 97.5 [degF] Alvin Mckeon MD Work Phone: [facility] 12-14-2021 11:10-0400 Body weight 72.12 kg Alvin Mckeon MD Work Phone: [facility] 12-14-2021 11:10-0400 Diastolic blood pressure 62 mm[Hg] Alvin Mckeon MD Work Phone: [facility] 12-14-2021 11:10-0400 Heart rate 87 /min Alvin Mckeon MD Work Phone: [facility] 12-14-2021 11:10-0400 SaO2% (BldA) [Mass fraction] 98 % Alvin Mckeon MD Work Phone: [facility] 12-14-2021 11:10-0400 Systolic blood pressure 112 mm[Hg] Alvin Mckeon MD Work Phone: [facility] 11-28-2021 11:53-0400 Body temperature 98.6 [degF] Anju Garcia APRN.[employer] Work Phone: [facility] 11-28-2021 11:53-0400 Body weight 72.12 kg Anju Garcia APRN.[employer] Work Phone: [facility] 11-28-2021 11:53-0400 Diastolic blood pressure 72 mm[Hg] Anju Garcia APRN.[employer] Work Phone: [facility] 11-28-2021 11:53-0400 Heart rate 88 /min Anju Garcia APRN.[employer] Work Phone: [facility] 11-28-2021 11:53-0400 Respiratory rate 18 /min Anju Garcia APRN.[employer] Work Phone: [facility] 11-28-2021 11:53-0400 SaO2% (BldA) [Mass fraction] 95 % Anju Garcia APRN.[employer] Work Phone: [facility] 11-28-2021 11:53-0400 Systolic blood pressure 136 mm[Hg] Anju Garcia ASSOCIATE PROFESSOR OF AUTOMATION.[employer] Work Phone: [facility] 08-29-2021 08:41-0400 Body temperature 98.8 [degF] Franc Carreon MD Work Phone: [facility] 08-29-2021 08:41-0400 Body weight 69.58 kg Franc Carreon MD Work Phone: [facility] 08-29-2021 08:41-0400 Diastolic blood pressure 90 mm[Hg] Franc Carreon MD Work Phone: [facility] 08-29-2021 08:41-0400 Heart rate 95 /min Franc Carreon MD Work Phone: [facility] 08-29-2021 08:41-0400 Respiratory rate 21 /min Franc Carreon MD Work Phone: [facility] 08-29-2021 08:41-0400 SaO2% (BldA) [Mass fraction] 98 % Franc Carreon MD Work Phone: [facility] 08-29-2021 08:41-0400 Systolic blood pressure 112 mm[Hg] Franc Carreon MD Work Phone: [facility] 08-24-2021 13:06-0400 Body weight 70.31 kg Lulu Swanson ASSOCIATE PROFESSOR OF AUTOMATION.[employer] Work Phone: [facility] 08-24-2021 13:06-0400 Diastolic blood pressure 84 mm[Hg] Lulu Swanson ASSOCIATE PROFESSOR OF AUTOMATION.[employer] Work Phone: [facility] 08-24-2021 13:06-0400 Heart rate 83 /min Lulu Swanson ASSOCIATE PROFESSOR OF AUTOMATION.[employer] Work Phone: [facility] 08-24-2021 13:06-0400 Respiratory rate 18 /min Lulu Swanson ASSOCIATE PROFESSOR OF AUTOMATION.[employer] Work Phone: [facility] 08-24-2021 13:06-0400 SaO2% (BldA) [Mass fraction] 95 % Lulu Haagen ASSOCIATE PROFESSOR OF AUTOMATION.[employer] Work Phone: [facility] 08-24-2021 13:06-0400 Systolic blood pressure 118 mm[Hg] Lulu Haagen ASSOCIATE PROFESSOR OF AUTOMATION.[employer] Work Phone: [facility] 07-11-2021 10:10-0400 Body weight 69.85 kg Lulu Haagen ASSOCIATE PROFESSOR OF AUTOMATION.[employer] Work Phone: [facility] 07-11-2021 10:10-0400 Diastolic blood pressure 90 mm[Hg] Lulu Haagen ASSOCIATE PROFESSOR OF AUTOMATION.[employer] Work Phone: [facility] 07-11-2021 10:10-0400 Heart rate 86 /min Lulu Haagen ASSOCIATE PROFESSOR OF AUTOMATION.[employer] Work Phone: [facility] 07-11-2021 10:10-0400 Respiratory rate 18 /min Lulu Haagen ASSOCIATE PROFESSOR OF AUTOMATION.[employer] Work Phone: [facility] 07-11-2021 10:10-0400 SaO2% (BldA) [Mass fraction] 95 % Lulu Haagen ASSOCIATE PROFESSOR OF AUTOMATION.[employer] Work Phone: [facility] 07-11-2021 10:10-0400 Systolic blood pressure 122 mm[Hg] Lulu Haagen ASSOCIATE PROFESSOR OF AUTOMATION.[employer] Work Phone: [facility] 06-18-2021 14:58-0400 Body weight 70.31 kg Stephanie Blalaci ASSOCIATE PROFESSOR OF AUTOMATION.[employer], DNP Work Phone: [facility] 06-18-2021 14:58-0400 Diastolic blood pressure 76 mm[Hg] Stephanie Blaz ASSOCIATE PROFESSOR OF AUTOMATION.[employer], DNP Work Phone: [facility] 06-18-2021 14:58-0400 Heart rate 100 /min Stephanie Blaz ASSOCIATE PROFESSOR OF AUTOMATION.[employer], DNP Work Phone: [facility] 06-18-2021 14:58-0400 Respiratory rate 14 /min Stephanie Blaz ASSOCIATE PROFESSOR OF AUTOMATION.[employer], DNP Work Phone: [facility] 06-18-2021 14:58-0400 SaO2% (BldA) [Mass fraction] 97 % Stephanie Kapadia ASSOCIATE PROFESSOR OF AUTOMATION.[employer], DNP Work Phone: [facility] 06-18-2021 14:58-0400 Systolic blood pressure 128 mm[Hg] Stephanie Kapadia APRN.CANDACE, DNP Work Phone: [facility] Encounters Encounter Date Encounter Type Care Provider Facility Start: 01-17-2025 [facility] Facility :[facility] Start: 01-07-2025 ambulatory [facility] Facility :[facility] Start: 12-14-2024 End: 12-14-2024 ambulatory [facility] Facility:[facility] Start: 12-14-2024 End: 12-14-2024 ambulatory [facility] Facility:[facility] Start: 11-30-2024 End: 11-30-[address] [facility] Facility:[facility] Start: 11-23-2024 Non-patient / Non-visit Dr. Romeo matrinez MD -[facility] Work Phone: Start: 11-22-2024 Non-patient / Non-visit Dr. Alejandro zuleta MD -[facility] Start: 11-22-2024 Non-patient / Non-visit Dr. Romeo martinez MD -[facility] Work Phone: Start: 11-22-2024 Non-patient / Non-visit Lisa lopez PA-C -[facility] Start: 11-21-2024 Non-patient / Non-visit Dr. Kenny Pompa MD [facility] Work Phone: Start: 11-20-2024 Non-patient / Non-visit Dr. Kenny Pompa MD [facility] Work Phone: Start: 11-19-2024 Non-patient / Non-visit Dr. Ej Brown MD -[facility] Start: 11-19-2024 Non-patient / Non-visit Elizabeth BURGOS [facility] Start: 11-19-2024 ambulatory [facility] Facility :[facility] Start: 11-19-2024 Non-patient / Non-visit Dr. Kam liang MD -[facility] Start: 11-19-2024 ambulatory [facility] Facility :[facility] Start: 11-19-2024 End: 11-23-2024 Evaluation and management of inpatient Dr. Romeo Mina MD -[facility] Work Phone: Start: 10-26-2024 End: 10-26-2024 Refill Lulu Swanson ASSOCIATE PROFESSOR OF AUTOMATION.[employer] Work Phone: [facility] [place] Comment on above: Refill Request Start: 10-19-2024 End: 10-20-2024 Telephone encounter Dani Pearce ASSOCIATE PROFESSOR OF AUTOMATION.[employer] Work Phone: Pulmonary Medicine Comment on above: Medication Problem Refill Request Start: 10-09-2024 End: 10-09-2024 Patient encounter procedure Mark Amador ASSOCIATE PROFESSOR OF AUTOMATION.[employer] Work Phone: [facility] Comment on above: Muscle strain of rig ht shoulder region, initial encounter Start: 10-09-2024 End: 10-10-[address] [facility] Facility:[facility] Start: 10-08-2024 End: 10-08-2024 Refill Lulu Swanson ASSOCIATE PROFESSOR OF AUTOMATION.[employer] Work Phone: [facility] Comment on above: Refill Request Start: 10-05-2024 End: 10-05-2024 Refill Gabe Hall Work Phone: [facility] Comment on above: Refill Request Start: 10-01-2024 End: 10-01-2024 Office outpatient visit 25 minutes Lulu Swanson ASSOCIATE PROFESSOR OF AUTOMATION.[employer] Work Phone: [facility] Comment on above: Controlled type 2 di abetes mellitus without complication, without long-term current use of insulin (HCC) (Primary Dx); Hyperlipidemia, unspecified hyperlipidemia type; Hypertension, essential; Chronic insomnia; Pain, dental; Screening for colon cancer; Encounter for immunization; Mucopurulent chronic bronchitis (HCC) Start: 10-01-2024 End: 10-01-2024 [facility] Start: 09-24-2024 End: 09-24-2024 Patient encounter procedure Lulu Swanson APRN.[employer] Work Phone: [facility] Comment on above: Hyperlipidemia, unsp ecified hyperlipidemia type Start: 09-24-2024 End: 09-24-[address] [facility] Facility:[facility] Start: 09-21-2024 End: 09-21-2024 ambulatory [facility] Facility:[facility] Start: 09-20-2024 End: 09-21-2024 Refill Lulu Swanson ASSOCIATE PROFESSOR OF AUTOMATION.[employer] Work Phone: [facility] Comment on above: Refill Request Start: 08-31-2024 End: 08-31-2024 Refill Lulu Swanson ASSOCIATE PROFESSOR OF AUTOMATION.[employer] Work Phone: [facility] Comment on above: Refill Request Start: 08-24-2024 End: 08-25-2024 Patient encounter procedure Gabe Hall DO Work Phone: [facility] Comment on above: Trigger point of lef t shoulder region (Primary Dx); Other secondary osteoarthritis of right knee Refill Request Start: 08-24-2024 End: 08-24-[address] [facility] Facility:[facility] Start: 08-24-2024 End: 08-24-2024 Subsequent hospital visit by physician Vito [facility] Zhong Work Phone: Radiology Comment on above: Right knee pain, uns pecified chronicity [M25.561] Start: 08-17-2024 [facility] Facility :[facility] Start: 08-04-2024 End: 08-04-2024 Orders Only Gabe Hall DO Work Phone: Orthopaedics Comment on above: Right knee pain, uns pecified chronicity (Primary Dx) Start: 07-27-2024 End: 07-27-2024 Refill Lulu Isaias ASSOCIATE PROFESSOR OF AUTOMATION.[employer] Work Phone: [facility] Comment on above: Refill Request Start: 07-12-2024 End: 07-12-2024 Refill Lulu Swanson ASSOCIATE PROFESSOR OF AUTOMATION.[employer] Work Phone: [facility] Comment on above: Refill Request (Take s 90 per month) Start: 06-22-2024 End: 06-22-2024 Office outpatient visit 40 minutes Dani Pearce APRN.CNP Work Phone: Pulmonary Medicine Comment on above: COPD, mild (HCC) (Pr imary Dx); Pulmonary emphysema, unspecified emphysema type (HCC); Tobacco use current Start: 06-22-2024 End: 06-22-2024 Patient encounter procedure [facility] Work Phone: [facility] Start: 06-22-2024 End: 06-22-2024 ambulatory [facility] Work Phone: [facility] Comment on above: Spirometry Start: 06-21-2024 End: 06-22-2024 Refill Lulu Swanson APRN.CNP Work Phone: [facility] Comment on above: Refill Request Start: 05-26-2024 End: 05-27-2024 Follow-up encounter Lulu Swanson APRN.CNP Work Phone: [facility] Comment on above: Results Start: 05-26-2024 End: 06-28-2024 Telephone encounter Lulu Swanson APRN.CNP Work Phone: [facility] [place] Comment on above: Insurance Authorizat ion Start: 05-25-2024 End: 05-25-2024 ambulatory [facility] Facility:[facility] Start: 05-25-2024 End: 05-25-2024 Office outpatient visit 25 minutes Lulu Swanson APRN.[employer] Work Phone: [facility] [place] Comment on above: Controlled type 2 di abetes mellitus without complication, without long-term current use of insulin (HCC) (Primary Dx); Chronic insomnia; Left sided sciatica; Recurrent major depressive disorder, in full remission; Hyperlipidemia, unspecified hyperlipidemia type; Primary hypertension Start: 05-25-2024 End: 05-25-2024 ambulatory [facility] Facility:[facility] Start: 05-02-2024 End: 05-02-[address] [facility] Facility:[facility] Start: 05-02-2024 End: 05-02-2024 Patient encounter procedure Rianna Rock ASSOCIATE PROFESSOR OF AUTOMATION.[employer] Work Phone: [facility] Comment on above: Left sided sciatica (Primary Dx); Acute left-sided low back pain with left-sided sciatica Start: 04-27-2024 End: 04-28-2024 Refill Lulu Haagen ASSOCIATE PROFESSOR OF AUTOMATION.[employer] Work Phone: [facility] Comment on above: Refill Request Start: 04-09-2024 End: 04-09-2024 Telephone encounter Lulu Haagen ASSOCIATE PROFESSOR OF AUTOMATION.[employer] Work Phone: [facility] Comment on above: Patient Update Start: 04-07-2024 End: 04-07-2024 Telephone encounter Lulu Haagen ASSOCIATE PROFESSOR OF AUTOMATION.[employer] Work Phone: [facility] [place] Comment on above: Patient Update Start: 04-06-2024 End: 05-07-2024 ambulatory Lulu Mercadoagen ASSOCIATE PROFESSOR OF AUTOMATION.[employer] Work Phone: [facility] [place] Start: 03-31-2024 End: 04-02-2024 Refill Lulu Haagen ASSOCIATE PROFESSOR OF AUTOMATION.[employer] Work Phone: [facility] [place] Comment on above: Refill Request Start: 03-26-2024 End: 03-26-2024 ambulatory [facility] Facility:[facility] Start: 03-05-2024 End: 03-05-2024 Refill Lulu Haagen ASSOCIATE PROFESSOR OF AUTOMATION.[employer] Work Phone: [facility] [place] Comment on above: Refill Request Start: 02-23-2024 End: 02-23-2024 ambulatory Dipesh Leong MD Work Phone: Pulmonary Medicine Comment on above: Refill Request Start: 02-09-2024 End: 02-09-2024 ambulatory [facility] Facility:[facility] Start: 02-09-2024 End: 02-09-2024 Patient encounter procedure Dipesh Leong MD Work Phone: Pulmonary Medicine Comment on above: COPD, mild (HCC) (Pr imary Dx); Other emphysema (HCC); Cigarette smoker Start: 02-02-2024 End: 02-02-2024 Unlisted evaluation and management service Lulu Swanson APRN.[employer] Work Phone: [facility] Comment on above: Patient left without being seen (Primary Dx) Start: 02-02-2024 End: 02-02-[address] [facility] Facility:[facility] Start: 01-28-2024 End: 01-28-2024 Refill Lulu Swanson APRN.[employer] Work Phone: [facility] Comment on above: Refill Request Start: 01-23-2024 End: 05-10-2024 Telephone encounter Lulu Swanson APRN.[employer] Work Phone: [facility] Comment on above: Patient Question Start: 01-22-2024 End: 01-22-2024 Telephone encounter Lulu Swanson APRN.[employer] Work Phone: [facility] Comment on above: Results; Appointment ; Patient Question Start: 01-21-2024 End: 01-21-2024 ambulatory [facility] Facility:[facility] Start: 01-21-2024 End: 01-21-2024 ambulatory [facility] Facility:[facility] Start: 01-20-2024 End: 01-20-2024 Telephone encounter Lulu Swanson APRN.[employer] Work Phone: [facility] Comment on above: Orders Start: 01-16-2024 End: 01-16-2024 Telephone encounter Lulu Swanson APRN.[employer] Work Phone: [facility] Comment on above: Patient Question Start: 01-15-2024 End: 01-15-2024 Telephone encounter Lulu Swanson APRN.[employer] Work Phone: [facility] Comment on above: Patient Update Start: 01-14-2024 End: 01-14-2024 [facility] Comment on above: Finger infection [L0 8.9] Start: 01-14-2024 End: 01-14-2024 ambulatory [facility] Facility:[facility] Start: 01-13-2024 ambulatory [facility] Facility :[facility] Start: 01-13-2024 End: 01-13-2024 Office outpatient visit 25 minutes Lulu Swanson ASSOCIATE PROFESSOR OF AUTOMATION.[employer] Work Phone: [facility] [place] Comment on above: Finger infection (Pr imary Dx) Start: 01-13-2024 End: 01-13-[address] [facility] Facility:[facility] Start: 01-06-2024 End: 01-06-2024 Refill Lulu Swanson ASSOCIATE PROFESSOR OF AUTOMATION.[employer] Work Phone: [facility] Comment on above: Refill Request Start: 12-30-2023 End: 12-30-2023 Office outpatient visit 25 minutes Lulu Swanson ASSOCIATE PROFESSOR OF AUTOMATION.[employer] Work Phone: [facility] Comment on above: Elevated coronary ar pham calcium score (Primary Dx); Bilateral carotid artery stenosis; Neck pain Start: 12-30-2023 End: 12-30-[address] [facility] Facility:[facility] Start: 12-26-2023 End: 12-26-2023 ambulatory Nurse Intm/Famp Triage [facility] Work Phone: Nurse Phone Triage Comment on above: posterior neck anup ess Start: 12-26-2023 End: 12-26-2023 Telephone encounter Lulu Swanson ASSOCIATE PROFESSOR OF AUTOMATION.[employer] Work Phone: [facility] [place] Start: 12-23-2023 End: 12-25-2023 Telephone encounter Adwoa De Leon ASSOCIATE PROFESSOR OF AUTOMATION.PLATER PRINTED CIRCUIT BOARD PANELS Work Phone: Respiratory [place] Comment on above: Results Start: 12-18-2023 End: 12-18-2023 ambulatory Pulm Lab [facility] Work Phone: PULM LAB [facility] Comment on above: Spirometry Start: 12-18-2023 End: 12-18-2023 Patient encounter procedure Pulm Lab [facility] Work Phone: PULM LAB [facility] Start: 12-09-2023 End: 12-09-2023 Orders Only Denis Walker MD Work Phone: Preventive Cardiology Comment on above: Hyperlipidemia with target LDL less than 100 (Primary Dx) Start: 12-08-2023 End: 12-25-2023 Telephone encounter Lulu Swanson APRN.CNP Work Phone: Family Medicine [place] Comment on above: requesting medicatio n that is Patient Question Start: 12-04-2023 End: 12-05-2023 Refill Lulu Swanson APRN.CNP Work Phone: [facility] [place] Comment on above: Refill Request Start: 12-02-2023 End: 12-08-2023 Telephone encounter Adwoa De Leon APRN.CNP Work Phone: Pulmonary Medicine Comment on above: Results Start: 11-27-2023 End: 11-27-2023 Subsequent hospital visit by physician Ct [facility] (I-Stat) Work Phone: Cat [place] Comment on above: Encounter for screen ing for lung cancer [Z12.2] Start: 11-24-2023 End: 11-24-2023 Refill Lulu Swanson APRN.CNP Work Phone: Family [facility] [place] Comment on above: Refill Request Start: 2023 End: 2023 Patient encounter procedure Adwoa De Leon APRN.CNP Work Phone: Pulmonary Medicine Comment on above: Encounter for screen ing for lung cancer (Primary Dx); Tobacco use current; Wheezing; Shortness of breath Start: 11-05-2023 End: 11-05-2023 Office outpatient visit 25 minutes Lulu Swanson APRN.CNP Work Phone: Family [facility] [place] Comment on above: Controlled type 2 di abetes mellitus without complication, without long-term current use of insulin (HCC) (Primary Dx); Medication monitoring encounter; SOB (shortness of breath); Sinobronchitis; Hyperlipidemia, unspecified hyperlipidemia type; History of chest pain; Chronic insomnia; Encounter for immunization; Primary hypertension; Recurrent major depressive disorder, in full remission (HCC) Start: 10-16-2023 End: 10-20-2023 Telephone encounter Lulu Swanson APRN.PLATER PRINTED CIRCUIT BOARD PANELS Work Phone: Family [facility] [place] Comment on above: Rx refill; not on cu rrent med list Start: 10-14-2023 End: 10-14-2023 Refill Lulu Swanson APRN.PLATER PRINTED [employer] BOARD PANELS Work Phone: Family Medicine [place] Comment on above: Refill Request Start: 10-10-2023 End: 10-14-2023 Telephone encounter Anju Garcia APRN.PLATER PRINTED [employer] BOARD PANELS Work Phone: [facility] Comment on above: Results Patient Question Start: 10-10-2023 End: 10-10-2023 Subsequent hospital visit by physician Xr [facility] [place] Work Phone: Radiology Comment on above: Pain [R52] Start: 10-10-2023 End: 10-10-2023 Patient encounter procedure Anju Garcia APRN.PLATER PRINTED CIRCUIT BOARD PANELS Work Phone: [facility] Comment on above: Pain (Primary Dx) Start: 10-07-2023 End: 10-07-2023 Refill Lulu Swanson APRN.PLATER PRINTED CIRCUIT BOARD PANELS Work Phone: [facility] [place] Comment on above: Refill Request Start: 09-24-2023 Telephone encounter Lulu shrestha APRN.PLATER PRINTED [employer] BOARD PANELS Work Phone: Internal Medicine [place] Comment on above: Bump on Head Start: 09-17-2023 End: 09-17-2023 ambulatory Nurse Intm/Famp Triage [facility] Work Phone: Nurse Phone Triage Comment on above: Recheck Start: 09-12-2023 Refill Lulu Swanson APRN.PLATER PRINTED [employer] BOARD PANELS Work Phone: Family Medicine [place] Comment on above: Refill Request Start: 09-10-2023 Telephone encounter Alvin Mckeon MD Work Phone: Family Medicine [place] Comment on above: Results Start: 09-09-2023 End: 09-09-2023 Office outpatient visit 25 minutes Ana Paula Pace PA-C Work Phone: Family Medicine [place] Comment on above: Sciatica, right side (Primary Dx); History of chest pain Start: 09-09-2023 Telephone encounter Lulu shrestha APRN.PLATER PRINTED CIRCUIT BOARD PANELS Work Phone: Family Medicine [place] Comment on above: request for medication Start: 09-08-2023 Telephone encounter Lulu shrestha APRN.PLATER PR[employer]ED [employer] BOARD PANELS Work Phone: Family Medicine [place] Comment on above: Missed stress test; Appointment Rescheduled; back and leg pain Start: 09-07-2023 End: 09-07-2023 Patient encounter procedure Juan Jiménez ASSOCIATE PROFESSOR OF AUTOMATION.PLATER PRINTED CIRCUIT BOARD PANELS Work Phone: [facility] Comment on above: Sciatic nerve pain, right (Primary Dx) Start: 09-02-2023 Telephone encounter Nurse Card Admin [facility] Work Phone: Cardiology Comment on above: Stress Test Instruct ions for 09/08/23 Start: 09-01-2023 End: 12-16-2023 Telephone encounter Lulu Swanson APRN.PLATER PRINTED CIRCUIT BOARD PANELS Work Phone: [facility] [place] Comment on above: Patient Update Start: 08-19-2023 End: 08-20-2023 Patient encounter procedure Michael Benson Work Phone: Podiatry Comment on above: Porokeratosis (Prima ry Dx); Onychodystrophy Start: 08-13-2023 Telephone encounter Stephanie whaley MD Work Phone: General Surgery Start: 08-11-2023 Refill Lulu Swanson APRN.PLATER PRINTED [employer] BOARD PANELS Work Phone: [facility] [place] Comment on above: Refill Request Start: 08-08-2023 Refill Lulu Swanson APRN.PLATER PR[employer]ED [employer] BOARD PANELS Work Phone: Family Medicine [place] Start: 08-06-2023 End: 08-06-2023 Patient encounter procedure Anju Garcia APRN.PLATER PR[employer] BOARD PANELS Work Phone: [facility] Comment on above: Pain (Primary Dx) Start: 07-25-2023 Refill Lulu Swanson APRN.PLATER PRINTED CIRCUIT BOARD PANELS Work Phone: Family Medicine [place] Comment on above: Refill Request Start: 07-08-2023 Telephone encounter Lulu shrestha APRN.PLATER PRINTED [employer] BOARD PANELS Work Phone: [facility] [place] Comment on above: requesting medicatio n that is Start: 06-21-2023 ambulatory Suzanne Boyle RN NURSE OPERATOR RECEPTIONIST Start: 06-21-2023 Patient encounter procedure Suzanne Boyle RN NURSE OPERATOR RECEPTIONIST Comment on above: Clinical Update Start: 06-17-2023 Telephone encounter Nurse Card Admin [facility] Work Phone: Cardiology Comment on above: Stress Test Instruct ions Start: 06-06-2023 End: 06-06-2023 Patient encounter procedure Stephanie Lanza MD Work Phone: General Surgery Comment on above: Screening for colon cancer Start: 06-03-2023 Refill Lulu Swanson APRN.PLATER PRINTED [employer] BOARD PANELS Work Phone: [facility] Comment on above: Refill Request Start: 05-21-2023 Refill Lulu Swanson APRN.PLATER PRINTED [employer] BOARD PANELS Work Phone: [facility] [place] Comment on above: Refill Request Start: 04-30-2023 ambulatory Lulu Swanosn APRN.PLATER PRINTED CIRCUIT BOARD PANELS Work Phone: Internal Medicine [facility] [place] Start: 04-29-2023 End: 04-29-2023 Office outpatient visit 25 minutes Lulu Swanson APRN.PLATER PRINTED [employer] BOARD PANELS [facility] Comment on above: Chest pain, unspecif ied type (Primary Dx); Encounter for screening for lung cancer; Encounter for immunization; Screening for colon cancer; Hypertension, essential; Type 2 diabetes mellitus with stage 3a chronic kidney disease, without long-term current use of insulin (HCC); Hyperlipidemia with target LDL less than 100 Start: 04-21-2023 Refill Lulu Swanson APRN.PLATER PRINTED CIRCUIT BOARD PANELS Work Phone: [facility] Comment on above: Refill Request Medication Request Start: 04-10-2023 Refill Lulu Swanson APRN.PLATER PRINT[employer] BOARD PANELS [facility] Comment on above: Refill Request Start: 03-21-2023 Refill Lulu Haagen ASSOCIATE PROFESSOR OF AUTOMATION.PLATER PRINTED CIRCUIT BOARD PANELS Work Phone: [facility] Comment on above: Refill Request Start: 03-13-2023 Refill Lulu Haagen ASSOCIATE PROFESSOR OF AUTOMATION.PLATER PRINTED CIRCUIT BOARD PANELS Work Phone: [facility] Comment on above: Refill Request Start: 01-24-2023 Refill Lulu Haagen ASSOCIATE PROFESSOR OF AUTOMATION.PLATER PRINTED [employer] BOARD PANELS Work Phone: [facility] Comment on above: Refill Request Start: 01-22-2023 Refill Lulu Haagen ASSOCIATE PROFESSOR OF AUTOMATION.PLATER PRINTED [employer] BOARD PANELS Work Phone: [facility] Comment on above: Refill Request Start: 01-17-2023 Refill Lulu Haagen ASSOCIATE PROFESSOR OF AUTOMATION.PLATER PRINTED CIRCUIT BOARD PANELS Work Phone: [facility] Comment on above: Refill Request Start: 01-13-2023 Refill Lulu Haagen ASSOCIATE PROFESSOR OF AUTOMATION.PLATER PRINTED CIRCUIT BOARD PANELS Work Phone: [facility] Comment on above: Refill Request Start: 01-10-2023 Refill Lulu Haagen ASSOCIATE PROFESSOR OF AUTOMATION.PLATER PRINTED CIRCUIT BOARD PANELS Work Phone: [facility] Comment on above: Refill Request Start: 12-16-2022 Telephone encounter Gabe Osorio is DO Work Phone: Orthopaedics Comment on above: Appointment (Labs pr ior to appointment!) Start: 12-12-2022 Refill Lulu Haagen ASSOCIATE PROFESSOR OF AUTOMATION.PLATER PRINTED CIRCUIT BOARD PANELS Work Phone: [facility] Comment on above: Refill Request Start: 12-05-2022 ambulatory Lulu Haagen ASSOCIATE PROFESSOR OF AUTOMATION.PLATER PRINTED [employer] BOARD PANELS Work Phone: [facility] Comment on above: Anxiety Start: 11-29-2022 Telephone encounter Gabe Osorio is DO Work Phone: Hematology/Oncology Comment on above: Patient Question Start: 11-11-2022 Telephone encounter Doug brown MD Work Phone: Orthopaedics Comment on above: Refill Request Start: 11-04-2022 End: 11-04-2022 Patient encounter procedure Arely Foley PA-C Work Phone: Orthopaedics Comment on above: 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, due to unspecified organism (HCC) (Primary Dx) Start: 11-01-2022 Telephone encounter Sandra CHAUDHARI Comment on above: Follow Up (All Clear ) Start: 10-22-2022 ambulatory López Ariaz MD Work Phone: [place] [facility] Comment on above: CoPat Start Start: 10-21-2022 ambulatory López Ariza MD Work Phone: [place] [facility] Adult Comment on above: CoPat Start Start: 10-19-2022 End: 10-24-2022 Evaluation and management of inpatient DOUG QUIROZ Facility:[facility] Start: 10-19-2022 Orders Only Doug Quiroz MD Work Phone: Orthopaedics Comment on above: 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) Start: 10-18-2022 End: 10-18-2022 Patient encounter procedure Gabe Hall DO Work Phone: [facility] [place] Comment on above: Knee effusion, right (Primary Dx) Start: 10-16-2022 End: 10-16-2022 Subsequent hospital visit by physician Xr [facility] Work Phone: Radiology Comment on above: Right knee pain, uns pecified chronicity [M25.561] Start: 10-15-2022 End: 10-15-2022 Orders Only Gabe Hall DO Work Phone: Orthopaedics Comment on above: Right knee pain, uns pecified chronicity (Primary Dx) Localized swelling o f right lower leg (Primary Dx) Start: 10-11-2022 End: 10-11-2022 Patient encounter procedure Helga Lucas APRN.PLATER PRINTED CIRCUIT BOARD PANELS Work Phone: [facility] Comment on above: Knee swelling (Prima ry Dx) Refill Request; Refi ll Request Start: 10-10-2022 Refill Lulu Swanson APRN.PLATER PRINTED CIRCUIT BOARD PANELS Work Phone: [facility] [place] Comment on above: Refill Request Start: 10-09-2022 End: 10-09-2022 Emergency department patient visit [facility] Work Phone: Start: 10-09-2022 End: 10-09-2022 Patient encounter procedure Domenic Christine APRN.PLATER PRINTED CIRCUIT BOARD PANELS Work Phone: [facility] Comment on above: Posterior knee pain, right (Primary Dx) Start: 10-07-2022 ambulatory Lulu Swanson ASSOCIATE PROFESSOR OF AUTOMATION.PLATER PRINTED CIRCUIT BOARD PANELS Work Phone: Family Medicine [place] Comment on above: Knee Pain Start: 09-16-2022 End: 09-16-2022 Office outpatient visit 15 minutes Lulu Swanson ASSOCIATE PROFESSOR OF AUTOMATION.PLATER PRINTED CIRCUIT BOARD PANELS Work Phone: Family Medicine [place] Comment on above: Acute right-sided th oracic back pain (Primary Dx); Recurrent major depressive disorder, in full remission (HCC) Start: 09-10-2022 Refill Lulu Swanson ASSOCIATE PROFESSOR OF AUTOMATION.PLATER PRINTED CIRCUIT BOARD PANELS Work Phone: Family Medicine [place] Comment on above: Refill Request Start: 08-20-2022 Refill Lulu Swanson ASSOCIATE PROFESSOR OF AUTOMATION.PLATER PRINTED CIRCUIT BOARD PANELS Work Phone: Family Medicine [place] Start: 08-16-2022 Refill Lulutatiana Swanson ASSOCIATE PROFESSOR OF AUTOMATION.PLATER PRINTED CIRCUIT BOARD PANELS Work Phone: Family Medicine [place] Comment on above: Refill Request Start: 08-14-2022 Telephone encounter Lulu shrestha APRN.PLATER PRINTED CIRCUIT BOARD PANELS Work Phone: [facility] [place] Comment on above: Orders Start: 06-25-2022 Refill Lulu Swanson ASSOCIATE PROFESSOR OF AUTOMATION.PLATER PRINTED CIRCUIT BOARD PANELS Work Phone: Family Medicine [place] Comment on above: Refill Request Start: 06-24-2022 Refill Lulu Swanson ASSOCIATE PROFESSOR OF AUTOMATION.PLATER PRINTED [employer] BOARD PANELS Work Phone: Family Medicine [place] Comment on above: Refill Request Start: 05-22-2022 ambulatory Lulu Swanson ASSOCIATE PROFESSOR OF AUTOMATION.PLATER PRINTED [employer] BOARD PANELS Work Phone: Internal Medicine [facility] [place] Start: 05-22-2022 End: 05-22-2022 Office outpatient visit 15 minutes Lulu Swanson ASSOCIATE PROFESSOR OF AUTOMATION.PLATER PRINTED [employer] BOARD PANELS Work Phone: Family Medicine [place] Comment on above: Toe pain, right (Nicole alyssia Dx); Tobacco abuse Start: 04-27-2022 Refill Kell Manuela SCOTT.PLATER PRINTED CIRCUIT BOARD PANELS Work Phone: [facility] [place] Comment on above: Refill Request Start: 04-09-2022 End: 04-09-2022 Office outpatient visit 25 minutes Lulu Swanson APRN.PLATER PRINTED CIRCUIT BOARD PANELS Work Phone: [facility] [place] Comment on above: Chronic insomnia (Pr imary Dx); Hyperlipidemia with target LDL less than 100; Type 2 diabetes mellitus with stage 3a chronic kidney disease, without long-term current use of insulin (HCC); Hypertension, essential; Abnormal TSH; Medication monitoring encounter; Gastroesophageal reflux disease, unspecified whether esophagitis present Start: 03-28-2022 Telephone encounter Lulu shrestha APRN.PLATER PRINTED CIRCUIT BOARD PANELS Work Phone: [facility] [place] Comment on above: Results Start: 03-27-2022 End: 03-27-2022 Office outpatient visit 15 minutes Lulu Swanson APRN.PLATER PRINTED CIRCUIT BOARD PANELS Work Phone: [facility] [place] Comment on above: Viral upper respirat ory tract infection (Primary Dx) Start: 03-08-2022 Refill Lulu Swanson APRN.PLATER PRINTED CIRCUIT BOARD PANELS Work Phone: [facility] [place] Comment on above: Refill Request Start: 02-21-2022 Telephone encounter Franc Patel MD Work Phone: [facility] Comment on above: Results Start: 02-20-2022 End: 02-20-2022 Patient encounter procedure Jo Ann Vivar APRN.PLATER PRINTED CIRCUIT BOARD PANELS Work Phone: [facility] Comment on above: Nausea and vomiting, unspecified vomiting type (Primary Dx); URI, acute Start: 01-21-2022 End: 01-21-2022 Patient encounter procedure Anya John MD Work Phone: General Surgery Comment on above: Skin lesion of face; Dysesthesia Start: 01-17-2022 Telephone encounter Lulu shrestha APRN.PLATER PRINTED CIRCUIT BOARD PANELS Work Phone: [facility] [place] Comment on above: Patient Update Start: 01-09-2022 Refill Lulu Swanson APRN.PLATER PRINTED CIRCUIT BOARD PANELS Work Phone: [facility] Comment on above: Refill Request Start: 12-31-2021 End: 12-31-2021 Patient encounter procedure Anju Garcia APRN.PLATER PRINTED [employer] BOARD PANELS Work Phone: [facility] Comment on above: Encounter to obtain excuse from work (Primary Dx) Start: 12-29-2021 Refill Kell Roy ASSOCIATE PROFESSOR OF AUTOMATION.PLATER PRINTED CIRCUIT BOARD PANELS Work Phone: [facility] [place] Comment on above: Refill Request Start: 12-22-2021 Telephone encounter Lulu shrestha APRN.PLATER PRINTED [employer] BOARD PANELS Work Phone: [facility] Comment on above: Patient Question Start: 12-21-2021 Refill Lulu Swanson ASSOCIATE PROFESSOR OF AUTOMATION.PLATER PRINTED CIRCUIT BOARD PANELS Work Phone: [facility] Comment on above: Refill Request Start: 12-14-2021 End: 12-14-2021 Patient encounter procedure Alvin Mckeon MD Work Phone: [facility] Comment on above: Vomiting without ag sea, unspecified vomiting type; Hyperlipidemia with target LDL less than 100; Diabetes mellitus with peripheral artery disease (HCC); Type 2 diabetes mellitus with stage 3a chronic kidney disease, without long-term current use of insulin (HCC) Start: 11-29-2021 Telephone encounter Franc Patel MD Work Phone: [facility] Comment on above: Results Start: 11-28-2021 End: 11-28-2021 Patient encounter procedure Anju Garcia APRN.PLATER PRINTED CIRCUIT BOARD PANELS Work Phone: [facility] Comment on above: Acute cough (Primary Dx); At increased risk of exposure to COVID-19 virus Start: 11-26-2021 Refill Lulu Swanson APRN.PLATER PRINTED CIRCUIT BOARD PANELS Work Phone: [facility] [place] Comment on above: Refill Request Start: 11-11-2021 Refill Stephanie Kapadia APRN.PLATER PRINTED [employer] BOARD PANELS, DNP [facility] Phone[facility] Comment on above: Refill Request Start: 10-31-2021 Refill Lulu Swanson APRN.PLATER PRINTED [employer] BOARD PANELS Work Phone: [facility] Comment on above: Refill Request Start: 10-10-2021 Refill Stephanie Steffi SCOTT.DYAN MARIA Work Phone: [facility] [place] Comment on above: Refill Request Start: 09-24-2021 Refill Lulu Swanson ASSOCIATE PROFESSOR OF AUTOMATION.CANDACE Work Phone: [facility] [place] Comment on above: Refill Request Start: 09-19-2021 Refill Lulu Swanson ASSOCIATE PROFESSOR OF AUTOMATION.PLATER PRINTED CIRCUIT BOARD PANELS Work Phone: [facility] [place] Comment on above: Refill Request; Refi ll Request Start: 08-30-2021 Telephone encounter Jennifer simpson PA-C Work Phone: [facility] Comment on above: Results Start: 08-29-2021 End: 08-29-2021 Patient encounter procedure Franc Carreon MD Work Phone: [facility] Comment on above: Headache, unspecifie d headache type (Primary Dx); Exposure to confirmed case of COVID-19; SOB (shortness of breath) Start: 08-24-2021 End: 08-24-2021 Office outpatient visit 25 minutes Lulu Swanson ASSOCIATE PROFESSOR OF AUTOMATION.PLATER PRINTED CIRCUIT BOARD PANELS Work Phone: [facility] [place] Comment on above: Diabetes mellitus wi th peripheral artery disease (HCC) (Primary Dx); Chronic insomnia; Medication monitoring encounter; Abnormal TSH; Hyperlipidemia, unspecified hyperlipidemia type; Recurrent major depressive disorder, in full remission (HCC); Hypertension, essential Start: 08-22-2021 Refill Stephanie Blaz TYLER.DYAN MARIA Work Phone: [facility] [place] Comment on above: Refill Request Start: 07-25-2021 Refill Stephanie Blalaci SCOTT.DYAN MARIA Work Phone: [facility] [place] Comment on above: Refill Request Start: 07-11-2021 End: 07-11-2021 Office outpatient visit 15 minutes Lulu Swanson ASSOCIATE PROFESSOR OF AUTOMATION.CANDACE Work Phone: [facility] Comment on above: Viral gastroenteriti s (Primary Dx) Start: 07-08-2021 Nurse Triage Daksha Nichols RN NURSE O N CALL Comment on above: Refill Request Start: 06-30-2021 Refill Stephanie Kapadia APRN.DYAN MARIA Work Phone: [facility] Comment on above: Refill Request Start: 06-27-2021 Refill Stephanie Kapadia APRN.CNP, DNP Work Phone: [facility] Comment on above: Refill Request Start: 06-26-2021 End: 06-26-2021 ambulatory Matt Díaz PT Work Phone: [facility] Comment on above: Chronic right should er pain (Primary Dx); Nontraumatic complete tear of right rotator cuff Refill Request; Refi ll Request Start: 06-21-2021 Refill Stephanie Kapadia APRN.CNP, DNP Work Phone: [facility] Comment on above: Refill Request Start: 06-19-2021 Telephone encounter Stephanie aguero APRN.DYAN MARIA Work Phone: [facility] Comment on above: Results Start: 06-18-2021 End: 06-18-2021 Subsequent hospital visit by physician Vito [facility] [place] Work Phone: Radiology Comment on above: Nontraumatic complet e tear of right rotator cuff [M75.121] Start: 06-18-2021 End: 06-18-2021 Patient encounter procedure Stephanie Kapadia APRN.DYAN MARIA Work Phone: [facility] Comment on above: Nontraumatic complet e tear of right rotator cuff (Primary Dx); Contusion of right upper extremity, initial encounter Start: 05-30-2021 Refill Stephanie Kapadia APRN.DYAN MARIA Work Phone: [facility] Comment on above: Refill Request Start: 05-17-2021 Telephone encounter Stephanie aguero APRN.CNP, DNP [facility] Comment on above: Orders Start: 05-17-2021 End: 05-17-2021 Subsequent hospital visit by physician [facility] Work Phone: Radiology Comment on above: Chronic right should er pain [M25.511, G89.29] Start: 01-24-2021 End: 01-24-2021 Subsequent hospital visit by physician Vito [facility] [place] Work Phone: Radiology Comment on above: SOB (shortness of br eath) [R06.02] Start: 12-22-2017 End: 12-22-2017 Emergency department patient visit ISRAEL Mccall SANTO [facility] Procedures Date Procedure Procedure Detail Performing Clinician Start: 11-23-2024 Clostridium difficile detection Lulutatiana Swanson PROCESS OPERATOR-C Work Phone: Start: 11-23-2024 Measurement of occult blood in stool specimen using immunoassay Lulu Hahenrietta PROCESS OPERATOR-C Work Phone: Start: 11-23-2024 Nucleic acid assay Lulu Hahenrietta PROCESS OPERATOR-C Work Phone: Start: 11-23-2024 Iadna-dna/rna gi pthgn multiplex probe tq 6-11 Lulu Swanson PROCESS OPERATOR-C Work Phone: Start: 11-23-2024 Estimated creatinine clearance Lulu H kylee PROCESS OPERATOR-C Work Phone: Start: 11-23-2024 Serum inorganic phosphate measurement Lulu Mercadoagen PROCESS OPERATOR-C Work Phone: Start: 11-19-2024 CT angiography of chest with contrast Lulu Hahenrietta PROCESS OPERATOR-C Work Phone: Start: 11-19-2024 CT of abdomen and pelvis with oral contrast Lulu Hahenrietta PROCESS OPERATOR-C Work Phone: Start: 11-19-2024 Bacterial nucleic acid assay Lulu Mercadoa gen PROCESS OPERATOR-C Work Phone: Start: 11-19-2024 Nucleic acid assay Lulu Haagen PROCESS OPERATOR-C Work Phone: Start: 11-19-2024 Targeted analysis for gene mutation Lulutatiana Swanson PROCESS OPERATOR-C Work Phone: Comment on above: Result: NEGATIVE for the JAK2 V617F muta tion.Interpretation: The G to T nucleotide change encoding [id number] mutation was not detected. This result does not ruleout the presence of the JAK2 mutation at a level below thesensitivity of detection of this assay, or the presence ofother mutations within JAK2 not detected by this assay.This result does not rule out a diagnosis of polycythemiavera, essential thrombocythemia or idiopathicmyelofibrosis as the V617F mutation is not detected inall patients with these disorders. Start: 11-19-2024 Carbon dioxide measurement, partial pressure Lulu Mercadoagen PROCESS OPERATOR-C Work Phone: Start: 11-19-2024 Measurement of partial pressure of oxygen in blood Lulu Mercadoagen PROCESS OPERATOR-C Work Phone: Start: 11-19-2024 Oxygen saturation measurement Lulu hongn PROCESS OPERATOR-C Work Phone: Start: 11-19-2024 CT of chest without contrast Lulu Jacobson gen PROCESS OPERATOR-C Work Phone: Start: 11-19-2024 D-dimer assay, quantitative Lulu Aguilar en PROCESS OPERATOR-C Work Phone: Comment on above: D-Dimer ELEVATED (>0.49): Additional benjamin dies and clinicalassessments are indicated to conclude diagnosis of:Deep Vein Thrombosis (DVT) or Pulmonary Embolism (PE)CRITICAL VALUE CALLED TO [id number]/10/25 [id number] Sola Drake.RESULTS READ BACK BY SAME. Start: 11-19-2024 Ct abdomen & pelvis w/contrast material Lulu Revolutions Medicalhenrietta PROCESS OPERATOR-C Work Phone: Start: 11-18-2024 CT angiography of chest with contrast Lulu Mercadoagen PROCESS OPERATOR-C Work Phone: Start: 11-18-2024 Plain chest X-ray Lulu Revolutions Medicalagen PROCESS OPERATOR-C Work Phone: Start: 11-18-2024 Urnls dip stick/tablet reagent auto microscopy Lulu Revolutions Medicalagen PROCESS OPERATOR-C Work Phone: Start: 11-18-2024 Oxygen measurement Lulu Swanson PROCESS OPERATOR-C Work Phone: Start: 11-18-2024 Plain chest X-ray Lulu Revolutions Medicalagen PROCESS OPERATOR-C Work Phone: Start: 11-18-2024 Blood culture Lulu Swanson PROCESS OPERATOR-C Work Phone: Start: 11-18-2024 SARS-CoV-2, Influenza & RSV (PCR) Lulu Swanson PROCESS OPERATOR-C Work Phone: Start: 08-24-2024 Injection single/roller man trigger point 1/2 muscles Gabe Hall DO Work Phone: Start: 06-22-2024 Noninvasive ear/pulse oximetry multiple deter Dipesh Leong MD Work Phone: Start: 12-18-2023 Nitric oxide gas determination Adwoa De Leon ASSOCIATE PROFESSOR OF AUTOMATION.[employer] Work Phone: Start: 12-18-2023 Plethysmography lung volumes w/wo airway resist Adwoa De Leon ASSOCIATE PROFESSOR OF AUTOMATION.[employer] Work Phone: Start: 11-27-2023 CT LUNG SCREEN WO IVCON Adwoa De Leon ASSOCIATE PROFESSOR OF AUTOMATION.[employer] Work Phone: Start: 10-10-2023 Radex hand minimum 3 views Anju fonseca ASSOCIATE PROFESSOR OF AUTOMATION.[employer] Work Phone: Start: 04-29-2023 Ecg routine ecg w/least 12 lds i&r only Lulu Swanson ASSOCIATE PROFESSOR OF AUTOMATION.[employer] Work Phone: Start: 10-16-2022 Radiologic exam knee complete 4/more views Gabe Hall DO Work Phone: Start: 03-27-2022 COVID WITH FLUA+B, ROUTINE Lulu Marsh n ASSOCIATE PROFESSOR OF AUTOMATION.[employer] Work Phone: Start: 02-20-2022 Gluc bld gluc mntr dev cleared fda spec home use [facility] Provider Start: 06-18-2021 Radex shoulder complete minimum 2 views Stephanie Kapadia ASSOCIATE PROFESSOR OF AUTOMATION.CANDACE, DNP Work Phone: Start: 05-17-2021 Us abdominal real time w/image limited Stephanie Kapadia ASSOCIATE PROFESSOR OF AUTOMATION.CANDACE, DNP Work Phone: Start: 04-16-2021 Mammography Us 2 Work Phone: Start: 01-24-2021 Radiologic exam chest 2 views Lucas escobar ASSOCIATE PROFESSOR OF AUTOMATION.[employer] Work Phone: Start: 09-23-2017 H/O: surgery History of rectal polypectomy Us 2 Work Phone: Start: 12-12-2014 Colonoscopy Us 2 Work Phone: Plan of Treatment Date Care Activity Detail Author Start: 2036 RSV Vaccine (1 - 1-d ose 75+ series) RSV Vaccine (1 - 1-dose 75+ series) [facility] Start: 10-01-2034 Urine microalbumin profile DTaP,Tdap,Td Vaccine (3 - Td or Tdap) [facility] Start: 10-01-2025 Annual PCP Team Screw Machine Hand lindsay Disease Visit Annual PCP Team Chronic Disease Visit [facility] Start: 10-01-2025 Screening for malign ant neoplasm of cervix Cervical Cancer Screening [facility] Comment on above: Postponed from 03/26 (Declined at this time) Start: 09-24-2025 Annual PCP Team Screw Machine Hand lindsay Disease Visit Annual PCP Team Chronic Disease Visit [facility] Start: 06-22-2025 BP Controlled (<130/80) BP Controlle d (<130/80) [facility] Start: 05-25-2025 Annual PCP Team Screw Machine Hand lindsay Disease Visit Annual PCP Team Chronic Disease Visit [facility] Start: 05-25-2025 Hepatitis B surface antibody level LDL Cholesterol [facility] Start: 05-02-2025 BP Controlled (<130/80) BP Controlle d (<130/80) [facility] Start: 04-04-2025 End: 04-04-2025 Patient encounter procedure 04/04/2025 2:00 PM EST Office Visit [facility] [address] [place] [phone] Lulu Swanson APRN.[employer] [address] [place] [id number] 6 month follow up [facility] Comment on above: 6 month follow up Start: 04-03-2025 End: 07-03-2025 CBC W Auto Differential panel - Blood COMPLETE BLOOD COUNT AND DIFFERENTIAL Lab Routine Hypertension, essential Expected: 04/03/2025, Expires: 07/03/2025 [facility] Comment on above: Expected: 04/03/2025 , Expires: 07/03/2025 Start: 04-03-2025 End: 07-03-2025 Comprehensive metabolic 2000 panel - Serum or Plasma COMPREHENSIVE METABOLIC PANEL Lab Routine Hyperlipidemia, unspecified hyperlipidemia type Hypertension, essential Expected: 04/03/2025, Expires: 07/03/2025 [facility] Comment on above: Expected: 04/03/2025 , Expires: 07/03/2025 Start: 04-03-2025 End: 07-03-2025 Hemoglobin A1c in Blood HEMOGLOBIN A1C Lab Routine Controlled type 2 diabetes mellitus without complication, without long-term current use of insulin (HCC) Expected: 04/03/2025, Expires: 07/03/2025 [facility] Comment on above: Expected: 04/03/2025 , Expires: 07/03/2025 Start: 04-03-2025 End: 07-03-2025 LIPID PANEL, NONFASTING LIPID PANEL, NONFASTING Lab Routine Hyperlipidemia, unspecified hyperlipidemia type Expected: 04/03/2025, Expires: 07/03/2025 [facility] Comment on above: Expected: 04/03/2025 , Expires: 07/03/2025 Start: 03-28-2025 End: 03-28-2025 Anticoagulant drug monitoring 03/28/2025 9:40 AM EST Anticoagulation Visit Cardiology [address] [place] [address] Mitchell Diaz MD [address], [address] [place] [id number] Hyperlipidemia, unspecified hyperlipidemia type [E78.5] Cardiology Comment on above: Hyperlipidemia, unsp ecified hyperlipidemia type [E78.5] Start: 03-28-2025 End: 03-28-2025 Patient encounter procedure 03/28/2025 9:40 AM EST Office Visit Cardiology [address] [place] [address] Mitchell Diaz MD [address], [address] [place] [address] Hyperlipidemia, unspecified hyperlipidemia type [E78.5] Cardiology Comment on above: Hyperlipidemia, unsp ecified hyperlipidemia type [E78.5] Start: 02-01-2025 Annual PCP Team Screw Machine Hand lindsay Disease Visit Annual PCP Team Chronic Disease Visit [facility] Start: 01-21-2025 End: 01-21-2025 Patient encounter procedure 01/21/2025 11:00 AM EST Office Visit Pulmonary Medicine [address] [place] [address] Dani Pearce APRN.[employer] [address] [place] [address] 6 month f/u Pulmonary Medicine Comment on above: 6 month f/u Start: 01-13-2025 Hepatitis B screening Urine Al bumin:Creatinine Ratio [facility] Start: 01-12-2025 Annual PCP Team Screw Machine Hand lindsay Disease Visit Annual PCP Team Chronic Disease Visit [facility] Start: 12-29-2024 Annual PCP Team Screw Machine Hand lindsay Disease Visit Annual PCP Team Chronic Disease Visit [facility] Start: 12-29-2024 BP Controlled (<130/80) BP Controlle d (<130/80) [facility] Start: 12-24-2024 End: 12-24-2024 Patient encounter procedure Pulmonary Medicine Comment on above: 6 month f/u Start: 11-30-2024 Hzv zoster vacc recombinant adjuvanted im njx ZOSTER VACCINE, RECOMBINANT (SHINGRIX) Immunization/Injection Routine Encounter for immunization Expected: 11/30/2024 [facility] Comment on above: Expected: 11/30/2024 Start: 11-26-2024 Screening for malign ant neoplasm of lung Lung Cancer Screening [facility] Start: 11-24-2024 Hemoglobin A1c measurement HbA1C [facility] Start: 11-23-2024 Patient discharge [facility] Start: 11-23-2024 Enteric precautions [facility] Start: 11-23-2024 Oxygen therapy [facility] Start: 11-22-2024 [facility] Start: 11-21-2024 Care planning and problem solving actions [facility] Start: 11-21-2024 Removal of urinary catheter [facility] Start: 11-20-2024 Application of intermittent pneumatic compression device [facility] Start: 11-20-2024 Consultation [facility] Start: 11-20-2024 [facility] Start: 11-20-2024 Inhalation therapy procedure [facility] Start: 11-19-2024 Following clinical pathway protocol [facility] Start: 11-19-2024 Referral to vascular surgeon [facility] Start: 11-19-2024 Referral to general surgeon [facility] Start: 11-19-2024 Following clinical pathway protocol [facility] Start: 11-19-2024 Application of device W [facility] Start: 11-19-2024 Assessment of risk o f venous thromboembolism [facility] Start: 11-19-2024 Care regimes management [facility] Start: 11-19-2024 Elevation of head of bed [facility] Start: 11-19-2024 Insertion of cathete r into peripheral vein [facility] Start: 11-19-2024 Measuring intake and output [facility] Start: 11-19-2024 Notification of physician [facility] Start: 11-19-2024 Oxygen therapy [facility] Start: 11-19-2024 Providing care accor ding to standard [facility] Start: 11-19-2024 Referral for physica l therapy [facility] Start: 11-19-2024 Referral to occupati onal therapist [facility] Start: 11-19-2024 Referral to service [facility] Start: 11-19-2024 Vital signs measurements [facility] Start: 11-19-2024 End: 11-19-2024 [facility] Start: 11-19-2024 Admission procedure [facility] Start: 11-18-2024 End: 11-19-2024 [facility] Start: 11-16-2024 BP Controlled (<130/80) BP Controlle d (<130/80) [facility] Start: 11-08-2024 End: 11-08-2024 Patient encounter procedure Cardiology Comment on above: History of chest vivian n [Z87.898] check to see if patient needs 05-17 appt with Vivek Dx: Screening for co tess cancer [Z12.11] Start: 11-04-2024 Annual PCP Team Screw Machine Hand lindsay Disease Visit Annual PCP Team Chronic Disease Visit [facility] Start: 11-04-2024 BP Controlled (<130/80) BP Controlle d (<130/80) [facility] Start: 11-04-2024 Covid-19 Vaccine ( season) Covid-19 Vaccine () [facility] Comment on above: Postponed from 10/11 (Declined at this time) Start: 11-04-2024 Diabetic foot examination Diabetic Foot Exam [facility] Start: 10-29-2024 End: 10-29-2024 Patient encounter procedure 10/29/2024 2:30 PM EDT Office Visit [facility] [address] [place] [address] Gabe Hall V, DO [address] [place] [address] Neck and shoulder pain [facility] Comment on above: Neck and shoulder pa in Start: 10-28-2024 End: 10-28-2024 Nursing evaluation of patient and report 10/28/2024 2:00 PM EDT Nurse Visit [facility] [place] [address] [place] [address] Nurse, Francesca [address] [place] [address] shingles inj. [facility] Comment on above: shingles inj. Start: 10-12-2024 End: 10-12-2024 Nursing evaluation of patient and report 10/12/2024 11:15 AM EDT Nurse Visit [facility] [address] [place] [address] Nurse, Francesca [address] [place] [address] Shingrix #1 [facility] [place] Comment on above: Shingrix #1 Start: 10-11-2024 End: 01-06-2025 CT Chest for screening WO contrast CT LUNG SCREEN WO IVCON Radiology Routine Encounter for screening for lung cancer Tobacco use current Expected: 10/11/2024 (Approximate), Expires: 01/06/2025 Work Phone: Comment on above: Expected: 10/11/2024 (Approximate), Expires: 01/06/2025 Start: 10-11-2024 Influenza vaccination Influenza Vacc ine (#1) [facility] Start: 10-07-2024 End: 10-07-2024 Nursing evaluation of patient and report 10/07/2024 2:15 PM EDT Nurse Visit Family [facility] [address] [place] [address] Nurse, Fl [address] [facility] [place] [address] Shingrix #1 [facility] [place] Comment on above: Shingrix #1 Start: 09-29-2024 End: 09-29-2024 Patient encounter procedure 09/29/2024 11:00 AM EDT Office Visit [facility] [address] [place] [address] Lulu Swanson APRN.[employer] [address] [place] [address] follow up/med refill [facility] Comment on above: follow up/med refill Start: 09-24-2024 End: 09-24-2024 Patient encounter procedure 09/24/2024 11:00 AM EDT Office Visit [facility] [place] [address] [facility] [place] [address] Lulu Swanson APRN.[employer] [address] [place] [address] follow up/med refill Family [facility] Comment on above: follow up/med refill Start: 09-10-2024 End: 09-10-2024 Patient encounter procedure 09/10/2024 10:00 AM EDT Office Visit [facility] [address] [place] [address] Bilateral carotid artery stenosis [I65.23] [facility] Comment on above: Bilateral carotid ar pham stenosis [I65.23] Start: 09-08-2024 Annual PCP Team Screw Machine Hand lindsay Disease Visit Annual PCP Team Chronic Disease Visit [facility] Start: 09-08-2024 BP Controlled (<130/80) BP Controlle d (<130/80) [facility] Start: 09-08-2024 Creatinine measurement Serum Creatin ine [facility] Start: 09-08-2024 Hepatitis B surface antibody level LDL Cholesterol [facility] Start: 08-23-2024 End: 08-23-2024 Patient encounter procedure 08/23/2024 10:40 AM EDT Office Visit Cardiology [address] [place] [address] Romeo Doyle MD [address] [facility] [address] [place] [address] Hyperlipidemia, unspecified hyperlipidemia type [E78.5]; History of chest pain [Z87.898] Cardiology Comment on above: Hyperlipidemia, unsp ecified hyperlipidemia type [E78.5]; History of chest pain [Z87.898] Start: 08-19-2024 End: 08-19-2024 Patient encounter procedure 08/19/2024 2:30 PM EDT Office Visit [facility] [address] [place] [address] Bilateral carotid artery stenosis [I65.23] [facility] Comment on above: Bilateral carotid ar pham stenosis [I65.23] Start: 08-18-2024 End: 08-18-2024 Patient encounter procedure 08/18/2024 10:30 AM EDT Office Visit Pulmonary Medicine [address] [place] [address] Dani Pearce APRN.[employer] [address] [place] [address] Tobacco use current [Z72.0] Pulmonary Medicine Comment on above: Tobacco use current [Z72.0] Start: 08-06-2024 End: 08-06-2024 Patient encounter procedure 08/06/2024 1:00 PM EDT Office Visit [facility] [place] [address] [place], [place] [id number] Gabe Hall V, DO [address] [place] [address] right knee pain [facility] Comment on above: right knee pain Start: 07-08-2024 End: 07-08-2024 Patient encounter procedure 07/08/2024 3:30 PM EDT Office Visit [facility] [address] [place] [address] Bilateral carotid artery stenosis [I65.23] [facility] Comment on above: Bilateral carotid ar pham stenosis [I65.23] Start: 06-28-2024 End: 06-28-2024 Patient encounter procedure [facility] [place] Comment on above: 1 month follow up 1 month follow up (4 0min per CH) Start: 06-09-2024 End: 06-09-2024 Patient encounter procedure 06/09/2024 11:30 AM EDT Office Visit Pulmonary Medicine [address] [place] [address] Dani Pearce APRN.[employer] [address] [place] [address] COPD, 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] Pulmonary Medicine Comment on above: COPD, mild (HCC) [J4 4.9] Start: 06-09-2024 End: 06-09-2024 ambulatory 06/09/2024 11:00 AM EDT Procedure [facility] [address] [place] [address] [facility], Pulm Lab [facility] [address] [place] [address] COPD, 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] [facility] Comment on above: COPD, mild (HCC) [J4 4.9] Start: 06-05-2024 BP Controlled (<130/80) BP Controlle d (<130/80) [facility] Start: 05-31-2024 End: 05-31-2024 Patient encounter procedure 05/31/2024 8:30 AM EDT Appointment Mammogram [address] [place] [address] Encounter for screening mammogram for breast cancer [Z12.31] Mammogram Comment on above: Encounter for screen ing mammogram for breast cancer [Z12.31] Start: 05-25-2024 End: 08-24-2024 Comprehensive metabolic 2000 panel - Serum or Plasma Work Phone: Comment on above: Expected: 05/25/2024 , Expires: 08/24/2024 Start: 05-25-2024 End: 08-24-2024 Hemoglobin A1c in Blood [facility] Comment on above: Expected: 05/25/2024 , Expires: 08/24/2024 Start: 05-25-2024 End: 08-24-2024 LIPID PANEL, NONFASTING [facility] Comment on above: Expected: 05/25/2024 , Expires: 08/24/2024 Start: 05-17-2024 End: 05-17-2024 Patient encounter procedure Cardiology Comment on above: Hyperlipidemia, unsp ecified hyperlipidemia type [E78.5]; History of chest pain [Z87.898] Start: 04-28-2024 Annual PCP Team Screw Machine Hand lindsay Disease Visit Annual PCP Team Chronic Disease Visit [facility] Start: 04-28-2024 BP Controlled (<130/80) BP Controlle d (<130/80) [facility] Start: 04-28-2024 Covid-19 Vaccine ( season) Covid-19 Vaccine () [facility] Comment on above: Postponed from 10/11 (Declined at this time) Start: 04-28-2024 RSV Vaccine (1 - 1-d ose 60+ series) RSV Vaccine (1 - 1-dose 60+ series) [facility] Comment on above: Postponed from 11/17 (Declined at this time) Start: 04-28-2024 Urine microalbumin profile DTaP,Tdap,Td Vaccine (2 - Td or Tdap) [facility] Comment on above: Postponed from 10/08 (Declined at this time) Start: 03-15-2024 End: 03-15-2024 Patient encounter procedure Cardiology Comment on above: History of chest vivian n [Z87.898] History of chest vivian n [Z87.898] check to see if patient needs 05-17 appt with [facility] Start: 03-11-2024 Hemoglobin A1c measurement HbA1C [facility] Start: 03-03-2024 End: 03-03-2024 Patient encounter procedure 03/03/2024 11:00 AM EST Office Visit [facility] [address] [place] [address] Bilateral carotid artery stenosis [I65.23] [facility] Comment on above: Bilateral carotid ar pham stenosis [I65.23] Start: 02-13-2024 End: 02-13-2024 Patient encounter procedure [facility] Comment on above: 3 month f/u Start: 02-09-2024 End: 02-09-2024 Patient encounter procedure 02/09/2024 11:00 AM EST Office Visit Pulmonary Medicine [address] [place] [address] Dipesh Leong MD [address] [place] [address] Pulmonary emphysema, unspecified emphysema type (HCC) [J43.9]; 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] Pulmonary Medicine Comment on above: Pulmonary emphysema, unspecified emphysema type (HCC) [J43.9]; 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] Start: 02-02-2024 End: 02-02-2024 Patient encounter procedure 02/02/2024 11:20 AM EST Office Visit [facility] [address] [place] [address] Lulu Swanson APRN.[employer] [address] [place] [address] follow up on her finger [facility] Comment on above: follow up on her fin porter Start: 01-29-2024 End: 01-29-2024 Patient encounter procedure 01/29/2024 10:00 AM EST Office Visit [facility] [address] [place] [address] Bilateral carotid artery stenosis [I65.23] [facility] Comment on above: Bilateral carotid ar pham stenosis [I65.23] Start: 01-26-2024 End: 01-26-2024 Patient encounter procedure 01/26/2024 11:40 AM EST Office Visit [facility] [place] [address] [place] [address] Lulu Swanson, ASSOCIATE PROFESSOR OF AUTOMATION.[employer] [address] [place] [address] 1 week follow up [facility] Comment on above: 1 week follow up Start: 01-23-2024 End: 01-23-2024 Patient encounter procedure 01/23/2024 2:40 PM EST Office Visit [facility] [place] [address] [place] [address] Lulu Swanson, TYLER.[employer] [address] [place] [address] 1 week follow up [facility] Comment on above: 1 week follow up Start: 01-21-2024 End: 01-21-2024 Patient encounter procedure 01/21/2024 2:20 PM EST Office Visit [facility] [address] [place] [address] Lulu Swanson, ASSOCIATE PROFESSOR OF AUTOMATION.[employer] [address] [place] [address] 1 week follow up [facility] Comment on above: 1 week follow up Start: 01-20-2024 End: 01-20-2024 Patient encounter procedure [facility] Comment on above: swollen finger; poss ible bite 1 week follow up Start: 12-30-2023 End: 12-30-2023 Patient encounter procedure 12/30/2023 10:40 AM EST Office Visit [facility] [place] [address] [place] [address] Lulu Swanson, ASSOCIATE PROFESSOR OF AUTOMATION.[employer] [address] [place] [address] left neck pain sore 08/19 [facility] Comment on above: left neck pain sore 08/19 Start: 12-23-2023 End: 12-23-2023 Patient encounter procedure 12/23/2023 8:15 AM EST Office Visit [facility] [address] [id number] Denis Walker MD [address] [place] [address] Hyperlipidemia, unspecified hyperlipidemia type [E78.5]; History of chest pain [Z87.898] [facility] Comment on above: Hyperlipidemia, unsp ecified hyperlipidemia type [E78.5]; History of chest pain [Z87.898] Start: 12-23-2023 End: 12-23-2023 ambulatory 12/23/2023 7:15 AM EST Results Only Cardiology [address] [place] [address] Hyperlipidemia, unspecified hyperlipidemia type [E78.5]; History of chest pain [Z87.898] Cardiology Comment on above: Hyperlipidemia, unsp ecified hyperlipidemia type [E78.5]; History of chest pain [Z87.898] Start: 12-17-2023 End: 12-17-2023 ambulatory [facility] Comment on above: NITRIC OXIDE EXHALED LUNG DIFFUSION CAPAC ITY (DLCO) LUNG VOLUMES SPIROMETRY WITH DILA TOR IF OBS Start: 12-15-2023 End: 12-15-2023 ambulatory [facility] Comment on above: Wheezing [R06.2] Start: 12-09-2023 End: 12-09-2023 ambulatory [facility] Comment on above: Wheezing [R06.2] Start: 12-05-2023 End: 12-05-2023 Patient encounter procedure [facility] Comment on above: pap per ch PAP (40min per ch) Start: 12-01-2023 End: 12-01-2023 ambulatory [facility] Comment on above: wheezing Start: 11-27-2023 End: 11-27-2023 Patient encounter procedure 11/27/2023 11:40 AM EDT Appointment Cat Scan [address] [place] [address] CT LUNG SCREENING Cat Scan Comment on above: CT LUNG SCREENING Start: 11-25-2023 End: 11-25-2023 ambulatory [facility] Comment on above: HCAP UNTIL 12/22/23 LUNG VOLUMES LUNG DIFFUSION CAPAC ITY (DLCO) NITRIC OXIDE, EXHALE D Start: 11-19-2023 End: 11-19-2023 ambulatory [facility] Comment on above: PFT Start: 2023 End: 2023 Patient encounter procedure Pulmonary Medicine Comment on above: Encounter for screen ing for lung cancer [Z12.2] left hand pain Start: 11-16-2023 Creatinine measurement Serum Creatin ine [facility] Start: 11-16-2023 Serum Creatinine Serum Creatinine Cl [facility] Start: 11-13-2023 End: 11-13-2023 ambulatory 11/13/2023 9:15 AM EDT OT/PT/Speech Visit [facility] [address] [place] [address] Geoff Swanson, PT [address] [facility] [place] [place] [address] Sciatica, right side [M54.31] [facility] Comment on above: Sciatica, right side [M54.31] Start: 11-05-2023 End: 02-04-2024 Microalbumin/Creatinine [Mass Ratio] in Urine ALBUMIN/CREATININE RATIO, URINE Lab Routine Controlled type 2 diabetes mellitus without complication, without long-term current use of insulin ([facility]) Expected: 11/05/2023, Expires: 02/04/2024 [facility] Comment on above: Expected: 11/05/2023 , Expires: 02/04/2024 Start: 11-05-2023 End: 02-04-2024 PAIN PANEL, UR QUANT PAIN PANEL, UR QUANT Lab Routine Medication monitoring encounter Expected: 11/05/2023, Expires: 02/04/2024 [facility] Comment on above: Expected: 11/05/2023 , Expires: 02/04/2024 Start: 11-05-2023 End: 02-04-2024 TOXICOLOGY SCREEN, ROUTINE URINE TOXICOLOGY SCREEN, ROUTINE URINE Lab Routine Medication monitoring encounter Expected: 11/05/2023, Expires: 02/04/2024 Work Phone: Comment on above: Expected: 11/05/2023 , Expires: 02/04/2024 Start: 11-03-2023 End: 11-03-2023 Patient encounter procedure 11/03/2023 10:00 AM EDT Office Visit [facility] [place] [address] [place] [address] Lulu Swanson APRN.[employer] [address] [place] [address] 6 month follow up [facility] Comment on above: 6 month follow up Start: 10-30-2023 Diabetic foot examination Diabetic Foot Exam [facility] Comment on above: Postponed from 10/17 (Declined at this time) Start: 10-29-2023 Serum Creatinine Serum Creatinine [facility] Start: 10-27-2023 End: 10-27-2023 ambulatory 10/27/2023 9:00 AM EDT OT/PT/Speech Visit [facility] [address] [place] [place] [address] Matt Díaz PT Sciatica, right side [M54.31] [facility] Comment on above: Sciatica, right side [M54.31] Start: 10-21-2023 SERUM CREATININE SERUM CREATININE [facility] Start: 10-21-2023 End: 10-21-2023 Patient encounter procedure 10/21/2023 8:40 AM EDT Office Visit [facility] [place] [address] [place] [address] Lulu Swanson APRN.[employer] [address] [place] [address] was wanting prednisone rx for sciatica pain [facility] Comment on above: was wanting predniso ne rx for sciatica pain Start: 10-16-2023 BP CONTROLLED (<130/80) BP CONTROLLE D (<130/80) [facility] Start: 10-16-2023 End: 10-16-2023 Patient encounter procedure 10/16/2023 9:40 AM EDT Office Visit [facility] [place] [address] [place] [address] Idania Devries APRN.[employer] [address] [place] [address] EC f/u left knuckle swelling Family [facility] Comment on above: EC f/u left knuckle swelling Start: 10-12-2023 Covid-19 Vaccine () Covid-19 Vaccine () [facility] Start: 10-12-2023 Influenza vaccination C [facility] Start: 10-10-2023 BP CONTROLLED (<130/80) BP CONTROLLE D (<130/80) [facility] Start: 10-01-2023 End: 10-01-2023 ambulatory 10/01/2023 9:00 AM EDT OT/PT/Speech Visit [facility] [address] [place] [address] Matt Díaz PT Sciatica, right side [M54.31] [facility] Comment on above: Sciatica, right side [M54.31] Start: 09-26-2023 End: 09-26-2023 Patient encounter procedure 09/26/2023 9:40 AM EDT Office Visit Family [facility] [place] [address] [place] [address] Lulu Swanson APRN.[employer] [address] [place] [address] Lump on back of head / no injury [facility] [place] Comment on above: Lump on back of head / no injury Start: 09-22-2023 End: 09-22-2023 Patient encounter procedure 09/22/2023 8:00 AM EDT Office Visit Pulmonary Medicine [address] [place], [place] [phone] Adwoa De Leon APRN.[employer] [address] [place], [place] [id number] Encounter for screening for lung cancer [Z12.2] Pulmonary Medicine Comment on above: Encounter for screen ing for lung cancer [Z12.2] Start: 09-17-2023 ANNUAL PCP TEAM VULNERABILITY ASSESSMENT ANALYST LINDSAY DISEASE VISIT ANNUAL PCP TEAM CHRONIC DISEASE VISIT [facility] Start: 09-17-2023 HEMOGLOBIN/HEMATOCRIT HEMOGLOBIN/HEM ATOCRIT [facility] Start: 09-17-2023 Hepatitis B screening URINE AL BUMIN:CREATININE RATIO [facility] Start: 09-17-2023 Hepatitis B surface antibody level LDL CHOLESTEROL [facility] Start: 09-17-2023 SERUM CREATININE SERUM CREATININE Cl [facility] Start: 09-09-2023 End: 09-09-2023 Patient encounter procedure 09/09/2023 2:40 PM EDT Office Visit [facility] [place] [address] [place] [address] Ana Paula Pace PA-C [address] [place] [address] RT LEG PAIN -see phone note 09/07. Discuss cardiology consult [facility] Comment on above: RT LEG PAIN -see juancarlos ne note 09/07. Discuss cardiology consult Start: 09-08-2023 End: 09-08-2023 Nursing evaluation of patient and report 09/08/2023 9:15 AM EDT Nurse Visit Cardiology [address] [place] [phone] Wstr, Nurse Card Admin [facility] [address] [place] [address] Chest pain, unspecified type [R07.9] Cardiology Comment on above: Chest pain, unspecif ied type [R07.9] Start: 09-08-2023 End: 09-08-2023 Patient encounter procedure Nuclear Medicine Comment on above: Chest pain, unspecif ied type [R07.9] Start: 09-01-2023 End: 09-01-2023 Patient encounter procedure 09/01/2023 12:00 PM EDT Appointment Ambulatory Surgery [address] [place] [address] Stephanie Lanza MD [address] [place] [address] Screening for colon cancer [Z12.11] Ambulatory Surgery Comment on above: Screening for colon cancer [Z12.11] Start: 08-19-2023 End: 08-19-2023 Patient encounter procedure 08/19/2023 10:15 AM EDT Office Visit Podiatry [address] [place] [address] Michael Benson [address] [place] [address] DIAB FOOT CARE EST PT Podiatry Comment on above: DIAB FOOT CARE EST P T Start: 08-18-2023 End: 08-18-2023 Patient encounter procedure Ambulatory Surgery Comment on above: colon Screening for colon cancer [Z12.11] Start: 08-10-2023 Influenza vaccination Influenza Vacc ine (#1) [facility] Comment on above: Postponed from 10/11 (Declined at this time) Start: 08-07-2023 End: 08-07-2023 Patient encounter procedure 08/07/2023 9:40 AM EDT Office Visit Family [facility] [address] [facility] [place] [address] Idania Devries APRN.[employer] [address] [place] [address] moulton for missing work today Family [facility] Comment on above: need dr moulton for mis sing work today Start: 07-28-2023 End: 07-28-2023 Patient encounter procedure 07/28/2023 9:30 AM EDT Appointment Ambulatory Surgery [address] [place] [facility] [address] Stephanie Lanza MD [address] [place] [address] colon Ambulatory Surgery Comment on above: colon Start: 07-21-2023 End: 07-21-2023 Patient encounter procedure 07/21/2023 8:00 AM EDT Office Visit Pulmonary Medicine [address] [place] [address] Adwoa De Leon APRN.[employer] [address] [place] [address] Encounter for screening for lung cancer [Z12.2] Pulmonary Medicine Comment on above: Encounter for screen ing for lung cancer [Z12.2] Start: 07-20-2023 BP CONTROLLED (<130/80) BP CONTROLLE D (<130/80) [facility] Start: 07-14-2023 End: 07-14-2023 Patient encounter procedure 07/14/2023 9:00 AM EDT Office Visit Family [facility] [address] [facility] [place], [place] [phone] Lulu Swanson APRN.[employer] [address] [place], [place] [address] pap Family [facility] Comment on above: pap Start: 06-23-2023 End: 06-23-2023 Nursing evaluation of patient and report 06/23/2023 8:45 AM EDT Nurse Visit Cardiology [address] [place] [phone] Wstr, Nurse Card Admin [facility] [address] [place], [place] [phone] Chest pain, unspecified type [R07.9] Cardiology Comment on above: Chest pain, unspecif ied type [R07.9] Start: 06-23-2023 End: 06-23-2023 Patient encounter procedure Nuclear Medicine Comment on above: Chest pain, unspecif ied type [R07.9] Start: 06-06-2023 End: 06-06-2023 Patient encounter procedure 06/06/2023 3:00 PM EDT Office Visit General Surgery [address] [place], [place] [address] Stephanie Lanza MD [address] [place] [address] Screening for colon cancer [Z12.11] General Surgery Comment on above: Screening for colon cancer [Z12.11] Start: 05-23-2023 ANNUAL PCP TEAM VULNERABILITY ASSESSMENT ANALYST LINDSAY DISEASE VISIT ANNUAL PCP TEAM CHRONIC DISEASE VISIT [facility] Start: 05-23-2023 BP CONTROLLED (<130/80) BP CONTROLLE D (<130/80) [facility] Start: 04-29-2023 End: 04-28-2024 CBC W Auto Differential panel - Blood CBC + DIFF Lab Routine Hypertension, essential Expected: 04/29/2023, Expires: 04/28/2024 Work Phone: Comment on above: Expected: 04/29/2023 , Expires: 04/28/2024 Start: 04-29-2023 End: 04-28-2024 Comprehensive metabolic 2000 panel - Serum or Plasma COMP METABOLIC PANEL Lab Routine Hyperlipidemia with target LDL less than 100 Expected: 04/29/2023, Expires: 04/28/2024 Work Phone: Comment on above: Expected: 04/29/2023 , Expires: 04/28/2024 Start: 04-29-2023 End: 04-28-2024 Hemoglobin A1c in Blood HGB A1C Lab Routine Type 2 diabetes mellitus with stage 3a chronic kidney disease, without long-term current use of insulin (HCC) Expected: 04/29/2023, Expires: 04/28/2024 Work Phone: Comment on above: Expected: 04/29/2023 , Expires: 04/28/2024 Start: 04-29-2023 End: 04-28-2024 LIPID PANEL, NONFASTING LIPID PANEL, NONFASTING Lab Routine Hyperlipidemia with target LDL less than 100 Expected: 04/29/2023, Expires: 04/28/2024 Work Phone: Comment on above: Expected: 04/29/2023 , Expires: 04/28/2024 Start: 04-09-2023 ANNUAL PCP TEAM VULNERABILITY ASSESSMENT ANALYST LINDSAY DISEASE VISIT ANNUAL PCP TEAM CHRONIC DISEASE VISIT [facility] Start: 03-27-2023 ANNUAL PCP TEAM VULNERABILITY ASSESSMENT ANALYST LINDSAY DISEASE VISIT ANNUAL PCP TEAM CHRONIC DISEASE VISIT [facility] Start: 03-27-2023 BP CONTROLLED (<130/80) BP CONTROLLE D (<130/80) [facility] Start: 03-19-2023 Hemoglobin A1c measurement HbA1C [facility] Start: 03-19-2023 Hemoglobin A1c/Hemoglobin.total in Blood HBA1C [facility] Start: 12-31-2022 BP CONTROLLED (<130/80) BP CONTROLLE D (<130/80) [facility] Start: 12-14-2022 ANNUAL PCP TEAM VULNERABILITY ASSESSMENT ANALYST LINDSAY DISEASE VISIT ANNUAL PCP TEAM CHRONIC DISEASE VISIT [facility] Start: 12-14-2022 BP CONTROLLED (<130/80) BP CONTROLLE D (<130/80) [facility] Start: 10-24-2022 Glaucoma screening Dilated Retinal E xam [facility] Start: 10-24-2022 Hepatitis C antibody , confirmatory test DILATED RETINAL EXAM [facility] Start: 10-18-2022 End: 12-18-2022 BODY FLUID CELL COUNT Work Phone: Comment on above: Expected: 10/18/2022 , Expires: 12/18/2022 Start: 10-18-2022 BP CONTROLLED (<130/80) BP CONTROLLE D (<130/80) [facility] Start: 10-18-2022 End: 12-18-2022 C reactive protein [Mass/volume] in Serum or Plasma Work Phone: Comment on above: Expected: 10/18/2022 , Expires: 12/18/2022 Start: 10-18-2022 End: 12-18-2022 Erythrocyte sedimentation rate Work Phone: Comment on above: Expected: 10/18/2022 , Expires: 12/18/2022 Start: 10-11-2022 Covid-19 Vaccine () Covid-19 Vaccine () [facility] Start: 10-11-2022 Influenza vaccination C [facility] Start: 08-24-2022 ANNUAL PCP TEAM VULNERABILITY ASSESSMENT ANALYST LINDSAY DISEASE VISIT ANNUAL PCP TEAM CHRONIC DISEASE VISIT [facility] Start: 08-15-2022 End: 02-15-2023 ALBUMIN/CREAT RATIO RND UR ALBUMIN/CREAT RATIO RND UR Lab Routine Type 2 diabetes mellitus with stage 3a chronic kidney disease, without long-term current use of insulin (HCC) Expected: 08/15/2022, Expires: 02/15/2023 Work Phone: Comment on above: Expected: 08/15/2022 , Expires: 02/15/2023 Start: 08-15-2022 End: 02-15-2023 CBC W Auto Differential panel - Blood CBC + DIFF Lab Routine Hypertension, essential Expected: 08/15/2022, Expires: 02/15/2023 Work Phone: Comment on above: Expected: 08/15/2022 , Expires: 02/15/2023 Start: 08-15-2022 End: 02-15-2023 Comprehensive metabolic 2000 panel - Serum or Plasma COMP METABOLIC PANEL Lab Routine Hyperlipidemia, unspecified hyperlipidemia type Hyperlipidemia with target LDL less than 100 Type 2 diabetes mellitus with stage 3a chronic kidney disease, without long-term current use of insulin (HCC) Expected: 08/15/2022, Expires: 02/15/2023 Work Phone: Comment on above: Expected: 08/15/2022 , Expires: 02/15/2023 Start: 08-15-2022 End: 02-15-2023 Hemoglobin A1c in Blood HGB A1C Lab Routine Type 2 diabetes mellitus with stage 3a chronic kidney disease, without long-term current use of insulin (HCC) Expected: 08/15/2022, Expires: 02/15/2023 Work Phone: Comment on above: Expected: 08/15/2022 , Expires: 02/15/2023 Start: 08-15-2022 End: 02-15-2023 LIPID PANEL, NONFASTING LIPID PANEL, NONFASTING Lab Routine Hyperlipidemia, unspecified hyperlipidemia type Hyperlipidemia with target LDL less than 100 Expected: 08/15/2022, Expires: 02/15/2023 Work Phone: Comment on above: Expected: 08/15/2022 , Expires: 02/15/2023 Start: 08-15-2022 End: 02-15-2023 Magnesium [Mass/volume] in Serum or Plasma MAGNESIUM BLD Lab Routine Hyperlipidemia with target LDL less than 100 Hypertension, essential Expected: 08/15/2022, Expires: 02/15/2023 Work Phone: Comment on above: Expected: 08/15/2022 , Expires: 02/15/2023 Start: 08-15-2022 End: 02-15-2023 PAIN PANEL, UR QUANT PAIN PANEL, UR QUANT Lab Routine Medication monitoring encounter Expected: 08/15/2022, Expires: 02/15/2023 Work Phone: Comment on above: Expected: 08/15/2022 , Expires: 02/15/2023 Start: 08-15-2022 End: 02-15-2023 Thyrotropin [Units/volume] in Serum or Plasma TSH BLD Lab Routine Abnormal TSH Expected: 08/15/2022, Expires: 02/15/2023 Work Phone: Comment on above: Expected: 08/15/2022 , Expires: 02/15/2023 Start: 08-15-2022 End: 02-15-2023 TOX SCREEN ROUT UR TOX SCREEN ROUT UR Lab Routine Medication monitoring encounter Expected: 08/15/2022, Expires: 02/15/2023 Work Phone: Comment on above: Expected: 08/15/2022 , Expires: 02/15/2023 Start: 07-11-2022 ANNUAL PCP TEAM VULNERABILITY ASSESSMENT ANALYST LINDSAY DISEASE VISIT ANNUAL PCP TEAM CHRONIC DISEASE VISIT [facility] Start: 06-18-2022 ANNUAL PCP TEAM VULNERABILITY ASSESSMENT ANALYST LINDSAY DISEASE VISIT ANNUAL PCP TEAM CHRONIC DISEASE VISIT [facility] Start: 04-28-2022 ANNUAL PCP TEAM VULNERABILITY ASSESSMENT ANALYST LINDSAY DISEASE VISIT ANNUAL PCP TEAM CHRONIC DISEASE VISIT [facility] Start: 04-16-2022 Mammography [facility] Start: 04-16-2022 Screening for malign ant neoplasm of breast Mammogram Screening [facility] Start: 04-09-2022 End: 06-09-2022 ALBUMIN/CREAT RATIO RND UR ALBUMIN/CREAT RATIO RND UR Lab Routine Type 2 diabetes mellitus with stage 3a chronic kidney disease, without long-term current use of insulin (HCC) Expected: 04/09/2022, Expires: 06/09/2022 Work Phone: Comment on above: Expected: 04/09/2022 , Expires: 06/09/2022 Start: 04-09-2022 End: 06-09-2022 CBC W Auto Differential panel - Blood CBC + DIFF Lab Routine Hypertension, essential Expected: 04/09/2022, Expires: 06/09/2022 Work Phone: Comment on above: Expected: 04/09/2022 , Expires: 06/09/2022 Start: 04-09-2022 End: 06-09-2022 Comprehensive metabolic 2000 panel - Serum or Plasma COMP METABOLIC PANEL Lab Routine Hypertension, essential Expected: 04/09/2022, Expires: 06/09/2022 Work Phone: Comment on above: Expected: 04/09/2022 , Expires: 06/09/2022 Start: 04-09-2022 End: 06-09-2022 Hemoglobin A1c in Blood HGB A1C Lab Routine Type 2 diabetes mellitus with stage 3a chronic kidney disease, without long-term current use of insulin (HCC) Expected: 04/09/2022, Expires: 06/09/2022 Work Phone: Comment on above: Expected: 04/09/2022 , Expires: 06/09/2022 Start: 04-09-2022 End: 06-09-2022 Lipid 1996 panel - Serum or Plasma LIPID PANEL BASIC Lab Routine Hyperlipidemia with target LDL less than 100 Expected: 04/09/2022, Expires: 06/09/2022 Work Phone: Comment on above: Expected: 04/09/2022 , Expires: 06/09/2022 Start: 04-09-2022 End: 06-09-2022 Magnesium [Mass/volume] in Serum or Plasma MAGNESIUM BLD Lab Routine Gastroesophageal reflux disease, unspecified whether esophagitis present Expected: 04/09/2022, Expires: 06/09/2022 Work Phone: Comment on above: Expected: 04/09/2022 , Expires: 06/09/2022 Start: 04-09-2022 End: 06-09-2022 PAIN PANEL, UR QUANT PAIN PANEL, UR QUANT Lab Routine Chronic insomnia Medication monitoring encounter Expected: 04/09/2022, Expires: 06/09/2022 Work Phone: Comment on above: Expected: 04/09/2022 , Expires: 06/09/2022 Start: 04-09-2022 End: 06-09-2022 Thyrotropin [Units/volume] in Serum or Plasma TSH BLD Lab Routine Abnormal TSH Expected: 04/09/2022, Expires: 06/09/2022 Work Phone: Comment on above: Expected: 04/09/2022 , Expires: 06/09/2022 Start: 04-09-2022 End: 06-09-2022 TOX SCREEN ROUT UR TOX SCREEN ROUT UR Lab Routine Chronic insomnia Medication monitoring encounter Expected: 04/09/2022, Expires: 06/09/2022 Work Phone: Comment on above: Expected: 04/09/2022 , Expires: 06/09/2022 Start: 02-20-2022 End: 03-06-2022 Influenza virus A and B RNA and SARS-CoV-2 (COVID-19) N gene panel - Respiratory specimen by AVEL with probe detection Work Phone: Comment on above: Expected: 02/20/2022 , Expires: 03/06/2022 Start: 01-25-2022 HEMOGLOBIN/HEMATOCRIT HEMOGLOBIN/HEM ATOCRIT [facility] Start: 01-25-2022 SERUM CREATININE SERUM CREATININE [facility] Start: 01-18-2022 End: 03-20-2022 HEAVY METALS SCRN BL HEAVY METALS SCRN BL Lab Routine Tremors of nervous system Expected: 01/18/2022, Expires: 03/20/2022 Work Phone: Comment on above: Expected: 01/18/2022 , Expires: 03/20/2022 Start: 12-14-2021 End: 02-13-2022 CBC W Auto Differential panel - Blood CBC + DIFF Lab Routine Vomiting without nausea, unspecified vomiting type Expected: 12/14/2021, Expires: 02/13/2022 Work Phone: Comment on above: Expected: 12/14/2021 , Expires: 02/13/2022 Start: 11-28-2021 End: 12-12-2021 Influenza virus A and B RNA and SARS-CoV-2 (COVID-19) N gene panel - Respiratory specimen by AVEL with probe detection COVID WITH FLUA+B, ROUTINE Microbiology Routine Acute cough At increased risk of exposure to COVID-19 virus Expected: 11/28/2021, Expires: 12/12/2021 Work Phone: Comment on above: Expected: 11/28/2021 , Expires: 12/12/2021 Start: 2021 Hepatitis B Vaccine (1 of 3 - Risk 3-dose series) Hepatitis B Vaccine (1 of 3 - Risk 3-dose series) [facility] Start: 2021 RSV Vaccine (1 - 1-d ose 60+ series) RSV Vaccine (1 - 1-dose 60+ series) [facility] Start: 2021 RSV Vaccine (1 - Ris k 60-74 years 1-dose series) RSV Vaccine (1 - Risk 60-74 years 1-dose series) [facility] Start: 10-11-2021 [facility] Start: 10-08-2021 Urine microalbumin profile [facility] Start: 08-29-2021 End: 09-12-2021 SARS-CoV-2 (COVID-19) RNA [Presence] in Respiratory specimen by AVEL with probe detection 2019 CORONAVIRUS Microbiology Routine Headache, unspecified headache type Exposure to confirmed case of COVID-19 Expected: 08/29/2021, Expires: 09/12/2021 Work Phone: Comment on above: Expected: 08/29/2021 , Expires: 09/12/2021 Start: 08-24-2021 End: 10-24-2021 ALBUMIN/CREAT RATIO RND UR ALBUMIN/CREAT RATIO RND UR Lab Routine Diabetes mellitus with peripheral artery disease (HCC) Expected: 08/24/2021, Expires: 10/24/2021 Work Phone: Comment on above: Expected: 08/24/2021 , Expires: 10/24/2021 Start: 08-24-2021 End: 10-24-2021 CBC W Auto Differential panel - Blood CBC + DIFF Lab Routine Hypertension, essential Expected: 08/24/2021, Expires: 10/24/2021 Work Phone: Comment on above: Expected: 08/24/2021 , Expires: 10/24/2021 Start: 08-24-2021 End: 10-24-2021 Comprehensive metabolic 2000 panel - Serum or Plasma COMP METABOLIC PANEL Lab Routine Hypertension, essential Expected: 08/24/2021, Expires: 10/24/2021 Work Phone: Comment on above: Expected: 08/24/2021 , Expires: 10/24/2021 Start: 08-24-2021 End: 10-24-2021 Hemoglobin A1c in Blood HGB A1C Lab Routine Diabetes mellitus with peripheral artery disease (HCC) Expected: 08/24/2021, Expires: 10/24/2021 Work Phone: Comment on above: Expected: 08/24/2021 , Expires: 10/24/2021 Start: 08-24-2021 End: 10-24-2021 Lipid 1996 panel - Serum or Plasma LIPID PANEL BASIC Lab Routine Hyperlipidemia, unspecified hyperlipidemia type Expected: 08/24/2021, Expires: 10/24/2021 Work Phone: Comment on above: Expected: 08/24/2021 , Expires: 10/24/2021 Start: 08-24-2021 End: 10-24-2021 Thyrotropin [Units/volume] in Serum or Plasma TSH BLD Lab Routine Abnormal TSH Expected: 08/24/2021, Expires: 10/24/2021 Work Phone: Comment on above: Expected: 08/24/2021 , Expires: 10/24/2021 Start: 08-24-2021 End: 10-24-2021 Thyroxine (T4) free [Mass/volume] in Serum or Plasma T4 FREE/FREE THYROX Lab Routine Abnormal TSH Expected: 08/24/2021, Expires: 10/24/2021 Work Phone: Comment on above: Expected: 08/24/2021 , Expires: 10/24/2021 Start: 04-08-2021 Hepatitis B surface antibody level LDL CHOLESTEROL [facility] Start: 10-17-2020 3 comp foot exam completed DIABETIC FOOT EXAM [facility] Start: 10-17-2020 Diabetic foot examination Diabetic Foot Exam [facility] Start: 10-06-2020 Hemoglobin A1c/Hemoglobin.total in Blood HBA1C [facility] Start: 08-21-2020 COVID-19 VACCINE (2 - Booster for Elsy series) COVID-19 VACCINE (2 - Booster for Elsy series) [facility] Start: 03-30-2020 Hepatitis B screening URINE AL BUMIN:CREATININE RATIO [facility] Start: 09-06-2019 Hepatitis C antibody , confirmatory test DILATED RETINAL EXAM [facility] Start: 03-26-2019 HPV TESTING HPV TESTING [facility] Start: 03-26-2019 PAP TESTING PAP TESTING [facility] Start: 03-26-2019 Screening for malign ant neoplasm of cervix [facility] Start: 12-12-2017 Colonoscopy COLONOSCOPY [facility] Start: 12-12-2017 COLORECTAL CANCER SCREENING COLORECTAL CANCER SCREENING [facility] Start: 12-12-2017 Screening for malign ant neoplasm of colon [facility] Start: 01-08-2015 FECAL OCCULT BLOOD FECAL OCCULT BLOO D [facility] Start: 01-08-2015 Screening for malign ant neoplasm of colon Fecal Occult Blood [facility] Start: 11-18-2011 Influenza vaccination LUNG CANCER SC REENING [facility] Start: 11-18-2011 Screening for malign ant neoplasm of lung Lung Cancer Screening [facility] Start: 11-18-2011 SHINGRIX VACCINE (1 of 2) SHINGRIX VACCINE (1 of 2) [facility] Start: 05-29-2010 PNEUMOCOCCAL (2 - PCV) PNEUMOCOCCAL (2 - PCV) [facility] Start: 05-29-2010 Pneumococcal vaccination [facility] Start: 2006 COLOGUARD (FIT-DNA) COLOGUARD (FIT-D NA) [facility] Start: [address] COLONOGRAPHY [facility] Start: 2006 Screening for malign ant neoplasm of colon [facility] Start: 2006 SIGMOIDOSCOPY SIGMOIDOSCOPY [facility] Start: 1980 HEPATITIS B (1 of 3 - Risk 3-dose series) HEPATITIS B (1 of 3 - Risk 3-dose series) [facility] Start: 11-18-1979 BP CONTROLLED (<130/80) BP CONTROLLE D (<130/80) [facility] Bacteria identified in Body fluid by Culture BODY FLUID CULTURE AND GRAM STAIN Microbiology Routine Knee effusion, right 10/18/2022 1:08 PM EDT Work Phone: End: 12-16-2024 CT Chest for screening WO contrast CT LUNG SCREEN WO IVCON Radiology Routine Encounter for screening for lung cancer Tobacco use current 1 Occurrences starting 2023 until 12/16/2024 [facility] Comment on above: 1 Occurrences starti ng 2023 until 12/16/2024 End: 05-06-2025 DBT Breast - bilateral screening MIR SCREENING W ANCELMO Radiology Routine Encounter for screening mammogram for breast cancer 1 Occurrences starting 04/06/2024 until 05/06/2025 Work Phone: Comment on above: 1 Occurrences starti ng 04/06/2024 until 05/06/2025 End: 12-08-2024 ECG COMPLETE ECG COMPLETE ECG Routine Hyperlipidemia with target LDL less than 100 1 Occurrences starting 12/09/2023 until 12/08/2024 Work Phone: Comment on above: 1 Occurrences starti ng 12/09/2023 until 12/08/2024 Glucose [Mass/volume ] in Serum or Plasma GLUCOSE, BLOOD (POC) Lab Routine Nausea and vomiting, unspecified vomiting type Ordered: 02/20/2022 Work Phone: Comment on above: Ordered: 02/20/2022 Hzv zoster vacc recombinant adjuvanted im njx ZOSTER VACCINE, RECOMBINANT (SHINGRIX) Immunization/Injection Routine Encounter for immunization 1 Occurrences starting 10/01/2024 Work Phone: Comment on above: 1 Occurrences starti ng 10/01/2024 End: 12-16-2024 LUNG DIFFUSION CAPACITY (DLCO) LUNG DIFFUSION CAPACITY (DLCO) PFT Routine Wheezing 1 Occurrences starting 2023 until 12/16/2024 [facility] Comment on above: 1 Occurrences starti ng 2023 until 12/16/2024 LUNG DIFFUSION CAPAC ITY (DLCO) LUNG DIFFUSION CAPACITY (DLCO) PFT Routine Wheezing 12/18/2023 1:07 PM EST Work Phone: End: 12-16-2024 LUNG VOLUMES LUNG VOLUMES PFT Routine Wheezing 1 Occurrences starting 2023 until 12/16/2024 [facility] Comment on above: 1 Occurrences starti ng 2023 until 12/16/2024 LUNG VOLUMES LUNG VOLUMES PFT Routine Wheezing 12/18/2023 1:07 PM EST Work Phone: End: 06-21-2023 MIR SCREENING MIR SCREENING Radiology Routine Encounter for screening mammogram for breast cancer 1 Occurrences starting 05/22/2022 until 06/21/2023 Work Phone: Comment on above: 1 Occurrences starti ng 05/22/2022 until 06/21/2023 End: 05-29-2024 MG Breast Screening MIR SCREENING Radiology Routine Encounter for screening mammogram for breast cancer 1 Occurrences starting 04/30/2023 until 05/29/2024 Work Phone: Comment on above: 1 Occurrences starti ng 04/30/2023 until 05/29/2024 End: 12-16-2024 NITRIC OXIDE, EXHALED NITRIC OXIDE, EXHALED PFT Routine Wheezing 1 Occurrences starting 2023 until 12/16/2024 [facility] Comment on above: 1 Occurrences starti ng 2023 until 12/16/2024 End: 05-28-2024 NM Heart Perfusion W stress and W radionuclide IV NM CARDIAC PERF STRESS/PHARM Radiology Routine Chest pain, unspecified type 1 Occurrences starting 04/29/2023 until 05/28/2024 Work Phone: Comment on above: 1 Occurrences starti ng 04/29/2023 until 05/28/2024 OXIMETRY - NOCTURNAL OXIMETRY - NOCTURNAL Procedures Routine Other emphysema (HCC) Ordered: 02/09/2024 [facility] Comment on above: Ordered: 02/09/2024 End: 03-10-2025 OXIMETRY WITH AMBULATION OXIMETRY WITH AMBULATION PFT Routine COPD, mild (HCC) 1 Occurrences starting 02/09/2024 until 03/10/2025 Work Phone: Comment on above: 1 Occurrences starti ng 02/09/2024 until 03/10/2025 Patient Education ED Frances's Cys t ED Knee Pain of Uncertain Cause [facility] Work Phone: Patient referral [facility] Work Phone: End: 06-05-2024 Screening colonoscopy COLONOSCOPY SCREENING Endoscopy Routine Screening for colon cancer 1 Occurrences starting 06/06/2023 until 06/05/2024 Work Phone: Comment on above: 1 Occurrences starti ng 06/06/2023 until 06/05/2024 End: 12-16-2024 SPIROMETRY WITH DILATOR IF OBSTRUCTED SPIROMETRY WITH DILATOR IF OBSTRUCTED PFT Routine Wheezing 1 Occurrences starting 2023 until 12/16/2024 Work Phone: Comment on above: 1 Occurrences starti ng 2023 until 12/16/2024 SPIROMETRY WITH DILA TOR IF OBSTRUCTED SPIROMETRY WITH DILATOR IF OBSTRUCTED PFT Routine Wheezing 12/18/2023 1:07 PM EST Work Phone: End: 12-29-2024 US Carotid arteries - bilateral US CAROTID ARTERIES [facility] Vascular Lab Routine Bilateral carotid artery stenosis 1 Occurrences starting 12/30/2023 until 12/29/2024 Work Phone: Comment on above: 1 Occurrences starti ng 12/30/2023 until 12/29/2024 End: 02-12-2025 XR Finger - right AP and Lateral and oblique XR DIGIT GENERAL 3V FRONTAL/LAT/OBL RIGHT Radiology Routine Finger infection 1 Occurrences starting 01/14/2024 until 02/12/2025 Work Phone: Comment on above: 1 Occurrences starti ng 01/14/2024 until 02/12/2025 XR Finger - right AP and Lateral and oblique XR DIGIT GENERAL 3V FRONTAL/LAT/OBL RIGHT Radiology Routine Finger infection 01/14/2024 1:47 PM EST Work Phone: End: 09-03-2025 XR Knee - right 4 Views XR KNEE GENERAL 4V AP BOTH/PA BOTH/LAT/MERC RIGHT Radiology Routine Right knee pain, unspecified chronicity 1 Occurrences starting 08/04/2024 until 09/03/2025 Work Phone: Comment on above: 1 Occurrences starti ng 08/04/2024 until 09/03/2025 XR Knee - right 4 Views XR KNEE GENERAL 4V AP BOTH/PA BOTH/LAT/MERC RIGHT Radiology Routine Right knee pain, unspecified chronicity 08/24/2024 10:04 AM EDT Work Phone: End: 11-14-2023 XR KNEE GENERAL 4V AP BOTH/PA BOTH/LAT/MERC RIGHT XR KNEE GENERAL 4V AP BOTH/PA BOTH/LAT/MERC RIGHT Radiology Routine Right knee pain, unspecified chronicity 1 Occurrences starting 10/15/2022 until 11/14/2023 Work Phone: Comment on above: 1 Occurrences starti ng 10/15/2022 until 11/14/2023 [facility] Immunizations Immunization Date Immunization Notes Care Provider [facility] 10-01-2024 tetanus toxoid, redu [place] diphtheria toxoid, and acellular pertussis vaccine, adsorbed Lulu Haagen ASSOCIATE PROFESSOR OF AUTOMATION.[facility] Work Phone: [facility] 11-05-2023 influenza, seasonal, injectable Lulu Haagen ASSOCIATE PROFESSOR OF [employer]OMATION[employer] Work Phone: [facility] 11-05-2023 influenza virus vacc ine, unspecified formulation Gabe Hall V, Work Phone: [facility] 04-29-2023 pneumococcal conjuga te (PCV20) vaccine, 20 valent (PREVNAR 20) Lulu Swanson ASSOCIATE PROFESSOR OF AUTOMATION.[employer] Work Phone: [facility] 04-29-2023 pneumococcal Conjuga te, unspecified formulation Lulu Haagen ASSOCIATE PROFESSOR OF AUTOMATION.[employer] Work Phone: Work Phone: 11-01-2019 influenza, injectabl e, quadrivalent, contains preservative Us 2 Work Phone: [facility] 11-01-2019 influenza virus vacc ine, unspecified formulation López Ariza MD Work Phone: [facility] 12-25-2018 influenza, injectabl e, quadrivalent, contains preservative Us 2 Work Phone: [facility] 03-10-2017 influenza, injectabl e, quadrivalent, contains preservative Us 2 Work Phone: [facility] 11-14-2015 influenza, injectabl e, quadrivalent, contains preservative Us 2 Work Phone: [facility] 03-06-2015 influenza, injectabl e, quadrivalent, contains preservative Us 2 Work Phone: [facility] 12-13-2013 influenza, seasonal, injectable Us 2 Work Phone: [facility] 01-25-2013 influenza virus vacc ine, unspecified formulation Us 2 Work Phone: [facility] 10-09-2011 tetanus toxoid, redu ang[place] diphtheria toxoid, and acellular pertussis vaccine, adsorbed Us 2 Work Phone: [facility] Work Phone: 05-29-2009 pneumococcal polysaccharide vaccine, 23 valent Us 2 Work Phone: [facility] Work Phone: Payers Date Payer Category Payer Unknown [id number] 2024 Self-pay [id number] 2023 Medicaid [id number] 2023 Medicaid [id number] 2018 Private Health Insurance [id number] 2018 Private Health Insurance [facility] [employer] [id number] 2018-Present [phone] [address] [address] [place] [address] HMO [id number] 2018 Private Health Insurance [id number] 2009 Unknown [facility] [id number] 1960 Unknown [id number]. 651 Unknown [id number] 2.16.840.1.730891.3.579.2. 462 Unknown [id number] 2.16.840.1.913306.3.579.2. 462 Unknown [id number] 2.16.840.1.134048.3.579.2. 462 Unknown [id number] 2.16.840.1.065509.3.579.2. 462 Unknown [id number] 2.16.840.1.574527.3.579.2. 462 Unknown [id number] 2.16.840.1.811917.3.579.2. 462 Unknown [id number] 2.16.840.1.186869.3.579.2. 462 Unknown [id number] 2.16.840.1.537140.3.579.2. 462 Unknown [id number] 2.16.840.1.101281.3.579.2. 462 Unknown [id number] 2.16.840.1.517296.3.579.2. 462 Unknown [id number] 2.16.840.1.020289.3.579.2. 462 Unknown [id number] 2.16.840.1.988080.3.579.2. 462 Unknown [id number] 2.16.840.1.694161.3.579.2. 462 Unknown [id number] 2.16.840.1.168319.3.579.2. 462 Unknown [id number] 2.16.840.1.925070.3.579.2. 462 Unknown [id number] 2.16.840.1.498806.3.579.2. 462 Unknown [id number] 2.16.840.1.308447.3.579.2. 462 Unknown [id number] 2.16.840.1.055086.3.579.2. 462 Unknown [id number] 2.16.840.1.174655.3.579.2. 462 Unknown [id number] 2.16840.1.517109.3.579.2. 462 Unknown [id number] 2.16.840.1.549350.3.579.2. 462 Social History Date Type Detail Facility Start: 01-25-2021 End: 11-20-2024 Tobacco smoking status WYIS Smokes tobacco daily [facility] Start: 02-10-1975 History of tobacco use Cigarette Smo ker [facility] Start: 04-28-2021 End: 10-09-2024 Alcohol intake Ex-drinker (finding) [facility] Start: 04-25-2009 History SDOH Alcohol Comment quit 04/18 [facility] Start: 1960 Sex Assigned At Not on file C [facility] Start: 12-25-2020 End: 12-31-2021 Exposure to SARS-CoV-2 (event) Not sure [facility] Work Phone: Start: 06-17-2021 End: 06-27-2021 Exposure to SARS-CoV-2 (event) Unable to assess [facility] Work Phone: Start: 01-25-2021 End: 05-31-2024 Cigarettes smoked current (pack per day) - Reported 1 [facility] Start: 01-25-2021 End: 11-28-2023 Tobacco use and exposure Smokeless tobacco non-user [facility] Work Phone: Start: 07-19-2022 End: 05-31-2024 Tobacco use panel [facility] Start: 01-12-2012 Adult Depression Screening Assessment 0 [facility] Start: 10-09-2022 Tobacco smoking stat us [facility] Unknown if ever smoked [facility] Start: 07-17-2018 None [facility] Start: 07-17-2018 Alone [facility] Start: 1960 Sex Assigned At Female W [facility] Start: 01-24-2021 Alcoholic beverage intake Current non-drinker of alcohol (finding) [facility] Medical Equipment Procedure Code Equipment Code Equipment Original Text Equipment Identifier Dates [id number], [id number], [id number], [id number] Start: 06-12-2009 End: 09-10-2023 Comment on above: Use as instructed--T est blood sugars once daily. DX: 250.00 test blood sugar twi ce a day Test blood sugar(s) 1 times daily. Dx: Type 2 DM - Controlled E11.9 Insulin: No Goals Date Patient Goal Desired Activity /State Functional Status Date Assessment Result Facility 11-23-2024 Functional status Ambulates [facility] Work Phone: 10-24-2022 Are you deaf, or do you have serious difficulty hearing No 10/24/2022 3:51 PM EDT Kell Seth RN No [facility] 10-24-2022 Are you blind, or do you have serious difficulty seeing, even when wearing glasses No 10/24/2022 3:51 PM EDT Kell Seth RN No [facility] 10-24-2022 Do you have serious difficulty walking or climbing stairs No 10/24/2022 3:51 PM EDT Kell Seth RN No [facility] 10-24-2022 Do you have difficul ty dressing or bathing No 10/24/2022 3:51 PM EDT Kell Seth RN No [facility] 10-24-2022 Because of a physica l, mental, or emotional condition, do you have difficulty doing errands alone such as visiting a physician's office or shopping No 10/24/2022 3:51 PM EDT Kell Seth RN No [facility] Mental Status Date Assessment Result Facility 11-23-2024 Cognitive function Voice/Name [facility] Work Phone: 10-24-2022 Because of a physica l, mental, or emotional condition, do you have serious difficulty concentrating, remembering, or making decisions No 10/24/2022 3:51 PM EDT Kell Seth RN No [facility] Clinical Notes 09-24-2017 to 11-30-2024 Note Date & Type Note Facility 11-30-2024 Note HNO ID: [id number] Author: LULU SWANSON APRN.[employer] Service: ? Author Type: Nurse Practitioner Type: Progress Notes Filed: 11/30/2024 13:47 Note Text: This is a 64 year old female who presents today with: The patient is a 64-year-old female with HTN and T2DM, presenting for evaluation of persistent watery diarrhea following recent hospitalization and antibiotic therapy. Summary per hospital records: Patient presents today for hospital follow-up. She was admitted to [facility] on 11/19/2024 and discharged on 11/22/2024. Per the emergency room records, patient arrived by ambulance for chest pain. Patient was cyanotic and diaphoretic upon presentation. Her blood pressure was 72/56. Her pulse ox was 65% on room air. She was noted to be mottled. Her white count was elevated to 13.9. Her anion gap was elevated. Her lactate was elevated at 3.0. Her blood sugar was 316. She had a subclavian in place. She was started on Levophed because she remained hypotensive after 3 L of normal saline. CT of the chest reveals emphysema but otherwise unremarkable. CT of the abdomen and pelvis revealed transverse and descending colitis. CT also demonstrated abrupt narrowing of the proximal sigmoid colon with a short segment of wall thickening. This could represent focal colitis or a mucosal mass lesion. There was an addended surgical note that the official CT did not show evidence of bowel obstruction. Further there was no narrowing of the colon, however, there is evidence of colonic wall thickening-particularly distally. This is suggestive of colitis and in light of patient's recent hypotension could represent an element of ischemic colitis. There were no signs of bowel obstruction and patient had reported both bowel function as well as appetite, so clear liquid diet was resumed as tolerated. She received empiric IV antibiotics. Course was also complicated by a chest wall hematoma following attempts at a central line. She did have a CTA of the chest that demonstrated right chest wall hematoma without subclavian artery involvement/active arterial bleeding. There was soft tissue thickening in the bilateral hilar regions that may represent hilar lymphadenopathy or peribronchial infiltrates. There is also mediastinal lymphadenopathy noted. Patient was discharged with scripts for prednisone 40 mg daily for 7 days, Pantoprazole 40 mg daily, Augmentin twice daily for 10 day, and Mucinex. HISTORY OF PRESENT ILLNESS: David is a 64-year-old female with a history of diabetes mellitus, presenting for follow-up after a recent hospitalization for respiratory distress, with ongoing diarrhea. Recent Hospitalization: - Hospitalized for respiratory distress; required BiPAP and central line placement. - Discharged on 11/22. - Reports hearing comments about appearing "kahn" and "cold" during the episode. - Denies current dyspnea; occasional chills. - Appetite decreased; reports dysgeusia. - Follow-up with Pulmonology scheduled for January 21. Colitis/Diarrhea: - Onset during hospitalization; currently experiencing 2-3 watery bowel movements per day. - Denies hematochezia. - Completed a course of antibiotics during hospitalization; unsure if Augmentin was prescribed at discharge. - Denies abdominal pain. COPD: Follows with pulmonology. PAST MEDICAL HISTORY: PAST MEDICAL HISTORY Diagnosis Date Arrhythmia Bradycardia COPD, mild (HCC) Diabetes mellitus with peripheral artery disease (HCC) 03/06/2015 H/O percutaneous left heart catheterization 05/2012 negative--[facility] History of rectal polypectomy 09/23/201712/2014: hyperplastic polyp Hyperlipidemia LDL goal < 100 01/25/2013 Hypertension Left sided sciatica Major depressive disorder, recurrent episode, unspecified Non-alcoholic fatty liver disease 10/13/2014 Other and unspecified hyperlipidemia Other secondary osteoarthritis of right knee Peripheral arterial disease 03/06/2015 Pulmonary emphysema, unspecified emphysema type Recurrent major depressive disorder, in full remission 03/10/2017 Snoring Tobacco use current Trigger point of left shoulder region Type 2 diabetes mellitus with stage 3 chronic kidney disease, without long-term current use of insulin (HCC) 05/11/2016 PAST SURGICAL HISTORY Procedure Laterality Date APPENDECTOMY 02/10/1970 ARTHROSCOPY KNEE DIAGNOSTIC W/WO SYNOVIAL BX SPX 10/19/2022 rt knee artroscopic I AND D, synovectomy CAROTID ENDARTERECTOMY 06/16/2012 Right carotid COLONOSCOPY 12/12/2014 Repeat 2018 ALLERGIES Zocor [Simvastatin] MEDICATIONS Current Outpatient Medications Medication Sig lisinopril (ZESTRIL) 5 mg tablet Take 1 tablet by mouth once daily. metFORMIN (GLUCOPHAGE) 500 mg tablet Take 1 tablet by mouth daily with dinner. zolpidem (AMBIEN) 10 mg Take 1 tablet by mouth daily at bedtime for 30 days. blood sugar diagnostic (BLOOD GLUCOSE TEST) test strip Test (more content not included)... [facility] 11-23-2024 Discharge summary Note Date/Time November 23, 2024 3:48pm [facility] Medical Records Department [address] [place] [address] Discharge Summary 11/23/24 0948 MR#: [id number] Acct: [id number] Name: DAVID ALDRICH Rep #:[id number] : 1960 64 From: Romeo Mina MD PCP: CB Landaverde Status:ADM I N Location: [place] [address] Providers Date of Admission: 11/19/24 Primary Care Physician: CB Landaverde Consultations 11/19/24 04:21 Consult: General Surgery Routine Consulting Provider: Clay Rizzo Reason for Consult: Focal Colitis with ?mass in proximal sigmoid colon and suspected PSBO. EMERGENT Consult: No MD Notified: Yes Date Notified: 11/19/24 Time Notified: 09:37 Method of Notification: Verbal 11/19/24 04:58 Consult: Vascular Surgery Routine Consulting Provider: Alejandro Pool Reason for Consult: right chest hematoma EMERGENT Consult: No MD Notified: Yes Date Notified: 11/19/24 Time Notified: 09:41 Method of Notification: Answering Service 11/19/24 13:47 Consult: Sap Bi Architect / Pulmonary Medicine Routine Consulting Provider: Intensivists/Pulmonary Med Reason for Consult: shock on levophed EMERGENT Consult: No MD Notified: Yes Date Notified: 11/19/24 Time Notified: 13:47 Method of Notification: Verbal 11/20/24 07:12 Consult: Sap Bi Architect / Pulmonary Medicine Routine Consulting Provider: Intensivists/Pulmonary Med Reason for Consult: shock, hemorrhagic EMERGENT Consult: No MD Notified: Yes Date Notified: 11/20/24 Time Notified: 08:46 Method of Notification: Verbal Reason For Visit: AE COPD, BRONCHITIS, RESP FAILURE & UNDIFFERENTIAT Diagnosis Discharge Diagnosis (1) Hematoma of right chest wall: Status: Acute Code(s): S20.211A - Contusion of right front wall of thorax, initial encounter Qualifiers: Encounter type: subsequent encounter Qualified Code(s): S20.211D - Contusion of right front wall of thorax, subsequent encounter (2) Duodenitis: Status: Acute Code(s): K29.80 - Duodenitis without bleeding (3) Acute respiratory failure: Status: Acute Code(s): J96.00 - Acute respiratory failure, unspecified whether with hypoxia or hypercapnia Qualifiers: Respiratory failure complication: unspecified whether with hypoxia or hypercapnia Qualified Code(s): J96.00 - Acute respiratory failure, unspecified whether with hypoxia or hypercapnia (4) Bronchitis: Status: Acute Code(s): J40 - Bronchitis, not specified as acute or chronic (5) Hypothyroidism: Status: Acute Code(s): E03.9 - Hypothyroidism, unspecified Qualifiers: Hypothyroidism type: unspecified Qualified Code(s): E03.9 - Hypothyroidism, unspecified Plan Patient is a 63-year-old lady who presented with shortness of breath and assessment of acute hypoxic respiratory failure secondary to COPD with acute exacerbation made started on noninvasive ventilation admitted to the intensive care unit stabilized and later transferred to PCU 1. Acute hypoxic respiratory failure ? Secondary to COPD with acute exacerbation. 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 Patient managed with broad-spectrum antibiotic therapy with Zosyn as well as Solu-Medrol. Patient was managed on noninvasive ventilation BiPAP which has since been weaned off ? 11/23/2024;Patient seen breathing improved. Plan is for patient to be assessed for home oxygen prior to discharge 2. Hemorrhagic shock ? Patient did develop huge hematoma in the pectoralis muscle following insertionof subclavian CVC. Patient was managed in the ICU with IV fluid as well as Levophed which has since been weaned off 3. Left upper chest hematoma ? Appears stable 4. Anemia ? Secondary to acute blood loss monitoring H&H and transfuse if patient becomes symptomatic or hemoglobin falls below 7 5.Polycythemia ? Which was present on admission with hemoglobin of 18.9 this was thought to be secondary to chronic hypoxia from COPD 6. Acute kidney injury ? Patient creatinine on admission was 1.36. At 1.57 down to 0.73 as of today 7. Acute colitis ? CT demonstrated abrupt narrowing of the proximal sigmoid colon with a short segment of wall thickening. This could represent focal colitis or a mucosal mass lesion. Plans for patient to follow-up with primary care physician to be referred for outpatient colonoscopy 8. Duodenitis ? On PPI 9. Hiatal hernia with GERD symptoms ? Patient is on PPI 10. Subclinical hypothyroidism ? Patient started on levothyroxine 11. Diabetes mellitus type 2 ? Patient is on metformin held on admission placed on Accu-Cheks ACHS with sliding scale coverage 12. Schizoaffective disorder -On thiothixene twice daily, buspirone 3 times daily, bupropion twice daily plusimipramine nightly. Held on admission and resumed 13. Dyslipidemia ?Patient is on statin therapy, continued at home dose 14. Peripheral arterial disease ? With history of right CEA 15. Essential hypertension ? Patient is on lisinopril held on admission given hypotension as well as worsening kidney function 16. Degenerative joint disease ? CT demonstrated Moderate to severe thoracolumbar spondylosis with mild lumbar scoliosis with mild dextroconvex scoliosis 17. Physical deconditioning ? Requested for PT OT eval and social media campaign manager to assist with discharge planning 18. Tobacco dependence ? Counseled on cessation, offered nicotine patch for tobacco cravings 19. DVT prophylaxis Bilateral SCDs Time spent in the patient's overall evaluation,decision-making process, review of diagnostic data, adjustment of management, discussion with other providers, nursing nursing and ancillary staff involved in patient's care documentation, 35 Minutes Medications at Discharge Home Medications atorvastatin 20 mg tablet 20 mg PO QHS cholesterol 12/22/17 lisinopril 5 mg tablet 5 mg PO DAILY blood pressure 12/22/17 metformin 500 mg tablet 500 mg PO DAILY diabetes 12/22/17 aspirin 81 mg tablet,delayed release (Adult Aspirin Regimen) 81 mg PO QDAY [facility] 01/14/24 bupropion HCl 150 mg tablet,12 hr sustained-release (Wellbutrin SR) 150 mg PO BID 01/14/24 buspirone 5 mg tablet 5 mg PO TID 01/14/24 cyclobenzaprine 5 mg tablet 5 mg PO TID PRN 01/14/24 fluticasone fur. 100 mcg-umeclid 62.5 mcg-vilant 25 mcg inhalat.powder (Trelegy Ellipta) 1 inh inhalation QDAY 01/14/24 ibuprofen 800 mg tablet 800 mg PO Q8H PRN 01/14/24 imipramine HCl 50 mg tablet 150 mg PO QHS depression 01/14/24 ondansetron HCl 4 mg tablet 4 mg PO Q8H PRN 01/14/24 thiothixene 2 mg capsule 2 mg PO BID 01/14/24 zolpidem 10 mg tablet (Ambien) 10 mg PO QHS PRN sleep 01/14/24 melatonin 5 mg capsule mg PO PRN 01/21/24 pantoprazole 40 mg tablet,delayed release 40 mg PO DAILY #90 tabs 03/26/24 albuterol sulfate 90 mcg/actuation aerosol inhaler (Ventolin HFA) 2 puff inhalation Q6H PRN shortness of breath or wheezing #8.5 grams 11/23/24 amoxicillin 875 mg-potassium clavulanate 125 mg tablet 1 tab PO BID #20 tabs 11/23/24 guaifenesin 600 mg tablet, extended release 12 hr (Mucinex) 1,200 mg (2 x 600 mg) PO BID 10 days #40 tabs 11/23/24 pantoprazole 40 mg tablet,delayed release 40 mg PO DAILY #60 tabs 11/23/24 prednisone 20 mg tablet 40 mg (2 x 20 mg) PO BREAKFAST 7 days #14 tabs 11/23/24 Physical Exam Narrative GENERAL: cooperative HEENT: Atraumatic; normocephalic EYES; Anicteric, Normal Conjunctiva NECK; supple, normal thyroid, RESPIRATORY: Diminished to auscultation CARDIOVASCULAR: Regular S1 S2, GI: soft, normoactive bowel sounds, : No Renal angle tenderness; EXTREMITIES: No edema, no clubbing, MUSCULOSKELETAL: no muscle wasting NEURO: Awake; no lateralizing signs. SKIN: Extensive bruising left upper chest PSYCH; Flat affect Weight / BMI Weight Weight: 75.7 kg Body Mass Index (BMI) 31.5 ABG / Lab / Microbiology Data 11/23/24 04:42 11/23/24 04:42 Laboratory: Laboratory Results - last 24 hr 11/19/24 23:33: POC Glucose 160 H 11/22/24 16:34: POC Glucose 120 H 11/22/24 23:55: POC Glucose 151 H 11/23/24 04:42: WBC 12.4 H, RBC 3.33 L, Hgb 10.3 L, Hct 29.7 L, MCV 89.2, MCH 30.9, MCHC 34.7, RDW Std Deviation 44.1 H, RDW Coeff of Panchito 13.5, Plt Count 240,MPV 9.7, Immature Gran % (Auto) 3.500 H, Neut % (Auto) 79.0 H, Lymph % (Auto) 7.8 L, Sebastian % (Auto) 9.0, Eos % (Auto) 0.1, Baso % (Auto) 0.6, Absolute Neuts (auto) 9.8 H, Absolute Lymphs (auto) 0.97, Nucleated RBC % 0.2, Sodium 134, Potassium 3.5, Chloride 102, Carbon Dioxide 20.0 L, Anion Gap 11, BUN 18, Creatinine 0.60 L, Estim Creat Clear Calc 89.33, Est GFR (MDRD) Non-Af 101, BUN/Creatinine Ratio 29.6 H, Glucose 175 H, Calcium 8.2, Phosphorus 2.4 L, Magnesium 1.9 11/23/24 06:33: POC Glucose 159 H 11/23/24 11:34: POC Glucose 169 H Microbiology: Microbiology 11/23/24 09:43 Stool Clostridioides difficile (PCR) - Final 11/23/24 09:43 Stool Stool Occult Blood (EMMA) - Final Occult Blood Positive 11/18/24 21:40 Blood Culture (Wb) - Anticubital Right Blood Culture - Preliminary No growth in 48 hours. 11/18/24 21:10 Blood Culture (Wb) - Anticubital Left Blood Culture - Preliminary No growth in 48 hours. 11/19/24 08:25 Nasal Secretion MRSA (PCR) - Final 11/19/24 04:03 Mucosa - Nasopharyngeal Respiratory Panel (PCR) - Final 11/18/24 21:04 Mucosa - Nose SARS-CoV-2, Influenza & RSV (PCR) - Final D/C Instructions DC O2, CPAP, BIPAP Needs Home O2 Discharge instructions: No Meaningful Use Info Meaningful Use Meaningful Use Diagnoses (Choose all that apply): None applicable Discharge Plan Admission Admit Date/Time: 11/19/24 00:48 Attending Provider: Romeo Mina Primary Care Provider: Lulu Swanson NP Consulting Providers: Romeo Khan; Clay Rizzo; Familia Gupta; Fabrice Marte; Dustin Lizarraga; gL Leong; Romeo James; Stefany Mg; Antonio Alvarez; Shelby Abel; Horace Pizarro; Malika Salvador; Cirilo Lopez; Pk Vargas; Orlando Haile; David Padilla; Luciana Guillermo; Kaur August; Dulce Basurto; Jameel Hou; Joseluis Rodriguez; Chelo Servin;Vesta Beavers; Edu Keenan; Raheem Cuevas; Bhargav Addison; Geoff,Varun; Kathi Parmar; Joe Barragan; Shivani Ortiz; Juan Jimenez; Basim Flores; Liz Yang; Alvin Duran; Alejandro Pool; Kenny Pompa Discharge Orders/Prescriptions Prescriptions: New prednisone 20 mg Tablet 40 mg PO BREAKFAST 7 Days Qty: 14 0RF pantoprazole 40 mg Tablet,Delayed Release (Dr/Ec) 40 mg PO DAILY Qty: 60 0RF amoxicillin-pot clavulanate 875-125 mg tablet 1 tab PO BID Qty: 20 0RF guaifenesin [Mucinex] 600 mg tablet extended release 12hr 1,200 mg PO BID 10 Days Qty: 40 0RF albuterol sulfate [Ventolin HFA] 90 mcg/actuation HFA aerosol inhaler 2 puff inhalation Q6H PRN (Reason: shortness of breath or wheezing) Qty: 8.5 0RF Continued Trelegy Ellipta 100-62.5-25 mcg blister with device 1 inh inhalation QDAY zolpidem [Ambien] 10 mg tablet 10 mg PO QHS PRN (Reason: sleep) cyclobenzaprine 5 mg tablet 5 mg PO TID PRN imipramine HCl 50 mg tablet 150 mg PO QHS ibuprofen 800 mg tablet 800 mg PO Q8H PRN bupropion HCl [Wellbutrin SR] 150 mg tablet sustained-release 12 hr 150 mg PO BID Rx Instructions: to stop smoking ondansetron HCl 4 mg tablet 4 mg PO Q8H PRN buspirone 5 mg tablet 5 mg PO TID aspirin [Adult Aspirin Regimen] 81 mg tablet,delayed release (DR/EC) 81 mg PO QDAY melatonin 5 mg capsule PO PRN pantoprazole 40 mg tablet,delayed release (DR/EC) 40 mg PO DAILY Qty: 90 3RF metformin 500 MG tablet 500 mg PO DAILY atorvastatin 20 MG tablet 20 mg PO QHS lisinopril 5 MG tablet 5 mg PO DAILY thiothixene 2 mg capsule 2 mg PO BID Referrals / Follow Up: Lulu Swanson NP, PROCESS OPERATOR-C [Primary Care Provider, Medical] - 11/30/24 11:00 am Disposition Disposition (needs filled in before D/C Order can be placed): Home, Self Care Charges/Coding Visit Charges Inpatient E&M: 98762 Disch Hosp >30min 11/23/24 1430 <Electronically signed by Romeo Mina MD> Cosigner Signature (if applicable): CC: CB Swanson; Dr. Romeo Mina MD~ Signed ADDENDUM by Dr. Romeo Mina MD on 11/23/24 at 1548 Addendum Patient had diarrhea prior to being discharged however stool sent came back negative for C. difficile nor any enteric pathogen. Patient was instructed to take Imodium as needed. Patient also had a prescription sent for levothyroxine she had been started on that during her hospitalization. Stool for guaiac came back positive and an appointment was set up with Dr. Ray for outpatient endoscopic evaluation 11/23/24 1541<Electronically signed by Romeo Mina MD> Cosigner Signature (if applicable): cc: CB Swanson; Dr. Romeo Mina MD ~* Signed [facility] Work Phone: [phone] Consult note [facility] Medical Records Department [address] [place] [address] Counseling Note - Pharmacy 11/23/24 1386 MR#: [id number] Acct: [id number] Name: DAVID ALDRICH Rep #:[id number] : 1960 64 From: Barbara Montoya PCP: CB Landaverde Status:ADM I N Y Location: [place] [address] Pharmacy [place] Med Reconciliation Pharmacy Service has performed discharge medication reconciliation for this patient. Patient in precautions, did not senior counsel. Upon initial review of discharge, levothyroxine was not started as a new medication for home but it was started in the hospital. Contacted Dr. Mina, he entered a new prescription fordischarge. ZACH RAMIREZ updated to new medication. The patient's discharge medication list was reviewed for discrepancies and discrepancies were resolved. Medications at Discharge Home Medications atorvastatin 20 mg tablet 20 mg PO QHS cholesterol 12/22/17 lisinopril 5 mg tablet 5 mg PO DAILY blood pressure 12/22/17 metformin 500 mg tablet 500 mg PO DAILY diabetes 12/22/17 aspirin 81 mg tablet,delayed release (Adult Aspirin Regimen) 81 mg PO QDAY [facility] 01/14/24 bupropion HCl 150 mg tablet,12 hr sustained-release (Wellbutrin SR) 150 mg PO BID 01/14/24 buspirone 5 mg tablet 5 mg PO TID 01/14/24 cyclobenzaprine 5 mg tablet 5 mg PO TID PRN 01/14/24 fluticasone fur. 100 mcg-umeclid 62.5 mcg-vilant 25 mcg inhalat.powder (Trelegy Ellipta) 1 inh inhalation QDAY 01/14/24 ibuprofen 800 mg tablet 800 mg PO Q8H PRN 01/14/24 imipramine HCl 50 mg tablet 150 mg PO QHS depression 01/14/24 ondansetron HCl 4 mg tablet 4 mg PO Q8H PRN 01/14/24 thiothixene 2 mg capsule 2 mg PO BID 01/14/24 zolpidem 10 mg tablet (Ambien) 10 mg PO QHS PRN sleep 01/14/24 melatonin 5 mg capsule mg PO PRN 01/21/24 albuterol sulfate 90 mcg/actuation aerosol inhaler (Ventolin HFA) 2 puff inhalation Q6H PRN shortness of breath or wheezing #8.5 grams 11/23/24 amoxicillin 875 mg-potassium clavulanate 125 mg tablet 1 tab PO BID #20 tabs 11/23/24 guaifenesin 600 mg tablet, extended release 12 hr (Mucinex) 1,200 mg (2 x 600 mg) PO BID 10 days #40 tabs 11/23/24 levothyroxine 25 mcg tablet 25 mcg PO DAILY@0600 #90 tabs 11/23/24 pantoprazole 40 mg tablet,delayed release 40 mg PO DAILY #60 tabs 11/23/24 prednisone 20 mg tablet 40 mg (2 x 20 mg) PO BREAKFAST 7 days #14 tabs 11/23/24 11/23/24 1630 Date _ Barbara Singh Signature (if applicable): Date CC: ~ Signed [facility]10-14-2025 Discharge summary [facility] Medical Records Department [address] [place] [address] Discharge Summary 11/23/24 0948 MR#: [id number] Acct: [id number] Name: DAVID ALDRICH Rep #:[id number] : 1960 64 From: Romeo Mina MD PCP: CB Landaverde Status:ADM I N Location: [place] [address] Providers Date of Admission: 11/19/24 Primary Care Physician: CB Landaverde Consultations 11/19/24 04:21 Consult: General Surgery Routine Consulting Provider: Clay Rizzo Reason for Consult: Focal Colitis with ?mass in proximal sigmoid colon and suspected PSBO. EMERGENT Consult: No MD Notified: Yes Date Notified: 11/19/24 Time Notified: 09:37 Method of Notification: Verbal 11/19/24 04:58 Consult: Vascular Surgery Routine Consulting Provider: Alejandro Pool Reason for Consult: right chest hematoma EMERGENT Consult: No MD Notified: Yes Date Notified: 11/19/24 Time Notified: 09:41 Method of Notification: Answering Service 11/19/24 13:47 Consult: Sap Bi Architect / Pulmonary Medicine Routine Consulting Provider: Intensivists/Pulmonary Med Reason for Consult: shock on levophed EMERGENT Consult: No MD Notified: Yes Date Notified: 11/19/24 Time Notified: 13:47 Method of Notification: Verbal 11/20/24 07:12 Consult: Sap Bi Architect / Pulmonary Medicine Routine Consulting Provider: Intensivists/Pulmonary Med Reason for Consult: shock, hemorrhagic EMERGENT Consult: No MD Notified: Yes Date Notified: 11/20/24 Time Notified: 08:46 Method of Notification: Verbal Reason For Visit: AE COPD, BRONCHITIS, RESP FAILURE & UNDIFFERENTIAT Diagnosis Discharge Diagnosis (1) Hematoma of right chest wall: Status: Acute Code(s): S20.211A - Contusion of right front wall of thorax, initial encounter Qualifiers: Encounter type: subsequent encounter Qualified Code(s): S20.211D - Contusion of right front wall ofthorax, subsequent encounter (2) Duodenitis: Status: Acute Code(s): K29.80 - Duodenitis without bleeding (3) Acute respiratory failure: Status: Acute Code(s): J96.00 - Acute respiratory failure, unspecified whether with hypoxia or hypercapnia Qualifiers: Respiratory failure complication: unspecified whether with hypoxia or hypercapnia Qualified Code(s): J96.00 - Acute respiratory failure, unspecified whether with hypoxia or hypercapnia (4) Bronchitis: Status: Acute Code(s): J40 - Bronchitis, not specified as acute or chronic (5) Hypothyroidism: Status: Acute Code(s): E03.9 - Hypothyroidism, unspecified Qualifiers: Hypothyroidism type: unspecified Qualified Code(s): E03.9 - Hypothyroidism, unspecified Plan Patient is a 63-year-old lady who presented with shortness of breath and assessment of acute hypoxic respiratory failure secondary to COPD with acute exacerbation made started on noninvasive ventilation admitted to the intensive care unit stabilized and later transferred to PCU 1. Acute hypoxic respiratory failure ? Secondary to COPD with acute exacerbation. 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 Patient managed with broad-spectrum antibiotic therapy with Zosyn as well as Solu-Medrol. Patient was managed on noninvasive ventilation BiPAP which has since been weaned off ? 11/23/2024;Patient seen breathing improved. Plan is for patient to be assessed for home oxygen prior to discharge 2. Hemorrhagic shock ? Patient did develop huge hematoma in the pectoralis muscle following insertionof subclavian CVC. Patient was managed in the ICU with IV fluid as well as Levophed which has since been weaned off 3. Left upper chest hematoma ? Appears stable 4. Anemia ? Secondary to acute blood loss monitoring H&H and transfuse if patient becomes symptomatic or hemoglobin falls below 7 5.Polycythemia ? Which was present on admission with hemoglobin of 18.9 this was thought to be secondary to chronic hypoxia from COPD 6. Acute kidney injury ? Patient creatinine on admission was 1.36. At 1.57 down to 0.73 as of today 7. Acute colitis ? CT demonstrated abrupt narrowing of the proximal sigmoid colon with a short segment of wall thickening. This could represent focal colitis or a mucosal mass lesion. Plans for patient to follow-up with primary care physician to be referred for outpatient colonoscopy 8. Duodenitis ? On PPI 9. Hiatal hernia with GERD symptoms ? Patient is on PPI 10. Subclinical hypothyroidism ? Patient started on levothyroxine 11. Diabetes mellitus type 2 ? Patient is on metformin held on admission placed on Accu-Cheks ACHS with sliding scale coverage 12. Schizoaffective disorder -On thiothixene twice daily, buspirone 3 times daily, bupropion twice daily plusimipramine nightly.Held on admission and resumed 13. Dyslipidemia ?Patient is on statin therapy, continued at home dose 14. Peripheral arterial disease ? With history of right CEA 15. Essential hypertension ? Patient is on lisinopril held on admission given hypotension as well as worsening kidney function 16. Degenerative joint disease ? CT demonstrated Moderate to severe thoracolumbar spondylosis with mild lumbar scoliosis with milddextroconvex scoliosis 17. Physical deconditioning ? Requested for PT OT eval and social media campaign manager to assist with discharge planning 18. Tobacco dependence ? Counseled on cessation, offered nicotine patch for tobacco cravings 19. DVT prophylaxis Bilateral SCDs Time spent in the patient's overall evaluation,decision-making process, review of diagnostic data, adjustment of management, discussion with other providers, nursing nursing and ancillary staff involved in patient's care documentation, 35 Minutes Medications at Discharge Home Medications atorvastatin 20 mg tablet 20 mg PO QHS cholesterol 12/22/17 lisinopril 5 mg tablet 5 mg PO DAILY blood pressure 12/22/17 metformin 500 mg tablet 500 mg PO DAILY diabetes 12/22/17 aspirin 81 mg tablet,delayed release (Adult Aspirin Regimen) 81 mg PO QDAY [facility] 01/14/24 bupropion HCl 150 mg tablet,12 hr sustained-release (Wellbutrin SR) 150 mg PO BID 01/14/24 buspirone 5 mg tablet 5 mg PO TID 01/14/24 cyclobenzaprine 5 mg tablet 5 mg PO TID PRN 01/14/24 fluticasone fur. 100 mcg-umeclid 62.5 mcg-vilant 25 mcg inhalat.powder (Trelegy Ellipta) 1 inh inhalation QDAY 01/14/24 ibuprofen 800 mg tablet 800 mg PO Q8H PRN 01/14/24 imipramine HCl 50 mg tablet 150 mg PO QHS depression 01/14/24 ondansetron HCl 4 mg tablet 4 mg PO Q8H PRN 01/14/24 thiothixene 2 mg capsule 2 mg PO BID 01/14/24 zolpidem 10 mg tablet (Ambien) 10 mg PO QHS PRN sleep 01/14/24 melatonin 5 mg capsule mg PO PRN 01/21/24 pantoprazole 40 mg tablet,delayed release 40 mg PO DAILY #90 tabs 03/26/24 albuterol sulfate 90 mcg/actuation aerosol inhaler (Ventolin HFA) 2 puff inhalation Q6H PRN shortness of breath or wheezing #8.5 grams 11/23/24 amoxicillin 875 mg-potassium clavulanate 125 mg tablet 1 tab PO BID #20 tabs 11/23/24 guaifenesin 600 mg tablet, extended release 12 hr (Mucinex) 1,200 mg (2 x 600 mg) PO BID 10 days #40 tabs 11/23/24 pantoprazole 40 mg tablet,delayed release 40 mg PO DAILY #60 tabs 11/23/24 prednisone 20 mg tablet 40 mg (2 x 20 mg) PO BREAKFAST 7 days #14 tabs 11/23/24 Physical Exam Narrative GENERAL: cooperative HEENT: Atraumatic; normocephalic EYES; Anicteric, Normal Conjunctiva NECK; supple, normal thyroid, RESPIRATORY: Diminished to auscultation CARDIOVASCULAR: Regular S1 S2, GI: soft, normoactive bowel sounds, : No Renal angle tenderness; EXTREMITIES: No edema, no clubbing, MUSCULOSKELETAL: no muscle wasting NEURO: Awake; no lateralizing signs. SKIN: Extensive bruising left upper chest PSYCH; Flat affect Weight / BMI Weight Weight: 75.7 kg Body Mass Index (BMI) 31.5 ABG / Lab / Microbiology Data 11/23/24 04:42 11/23/24 04:42 Laboratory: Laboratory Results - last 24 hr 11/19/24 23:33: POC Glucose 160 H 11/22/24 16:34: POC Glucose 120 H 11/22/24 23:55: POC Glucose 151 H 11/23/24 04:42: WBC 12.4 H, RBC 3.33 L, Hgb 10.3 L, Hct 29.7 L, MCV 89.2, MCH 30.9, MCHC 34.7, RDW Std Deviation 44.1 H, RDW Coeff of Panchito 13.5, Plt Count 240,MPV 9.7, Immature Gran % (Auto) 3.500 H, Neut % (Auto) 79.0 H, Lymph % (Auto) 7.8 L, Sebastian % (Auto) 9.0, Eos % (Auto) 0.1, Baso % (Auto) 0.6, Absolute Neuts (auto) 9.8 H, Absolute Lymphs (auto) 0.97, Nucleated RBC % 0.2, Sodium 134, Potassium3.5, Chloride 102, Carbon Dioxide 20.0 L, Anion Gap 11, BUN 18, Creatinine 0.60 L, Estim Creat Clear Calc 89.33, Est GFR (MDRD) Non-Af 101, BUN/Creatinine Ratio 29.6 H, Glucose 175 H, Calcium 8.2, Phosphorus 2.4 L, Magnesium 1.9 11/23/24 06:33: POC Glucose 159 H 11/23/24 11:34: POC Glucose 169 H Microbiology: Microbiology 11/23/24 09:43 Stool Clostridioides difficile (PCR) - Final 11/23/24 09:43 Stool Stool Occult Blood (EMMA) - Final Occult Blood Positive 11/18/24 21:40 Blood Culture (Wb) - Anticubital Right Blood Culture - Preliminary No growth in 48 hours. 11/18/24 21:10 Blood Culture (Wb) - Anticubital Left Blood Culture - Preliminary No growth in 48 hours. 11/19/24 08:25 Nasal Secretion MRSA (PCR) - Final 11/19/24 04:03 Mucosa - Nasopharyngeal Respiratory Panel (PCR) - Final 11/18/24 21:04 Mucosa - Nose SARS-CoV-2, Influenza & RSV (PCR) - Final D/C Instructions DC O2, CPAP, BIPAP Needs Home O2 Discharge instructions: No Meaningful Use Info Meaningful Use Meaningful Use Diagnoses (Choose all that apply): None applicable Discharge Plan Admission Admit Date/Time: 11/19/24 00:48 Attending Provider: Romeo Mina Primary Care Provider: Lulu Swanson NP Consulting Providers: Romeo Khan; Clay Rizzo; Familia Gupta; Fabrice Marte; Dustin Lizarraga; Lg Leong; Romeo James; Stefany Mg; Antonio Alvarez; Shelby Abel; Horace Pizarro; Malika Salvador; Cirilo Lopez; Pk Vargas; Orlando Haile; David Padilla; Luciana Guillermo; Kaur Hansen; Dulce Basurto; Jameel Hou; Joseluis Rodriguez; Chelo Servin;Vesta Beavers; Edu Keenan; Raheem Cuevas; Bhargav Addison; Varun Tellez; Kathi Parmar; Joe Barragan; Shivani Ortiz; Juan Jimenez; Basim Flores; Liz Yang; Alvin Duran; Alejandro Pool; Kenny Pompa Discharge Orders/Prescriptions Prescriptions: New prednisone 20 mg Tablet 40 mg PO BREAKFAST 7 Days Qty: 14 0RF pantoprazole 40 mg Tablet,Delayed Release (Dr/Ec) 40 mg PO DAILY Qty: 60 0RF amoxicillin-pot clavulanate 875-125 mg tablet 1 tab PO BID Qty: 20 0RF guaifenesin [Mucinex] 600 mg tablet extended release 12hr 1,200 mg PO BID 10 Days Qty: 40 0RF albuterol sulfate [Ventolin HFA] 90 mcg/actuation HFA aerosol inhaler 2 puff inhalation Q6H PRN (Reason: shortness of breath or wheezing) Qty: 8.5 0RF Continued Trelegy Ellipta 100-62.5-25 mcg blister with device 1 inh inhalation QDAY zolpidem [Ambien] 10 mg tablet 10 mg PO QHS PRN (Reason: sleep) cyclobenzaprine 5 mg tablet 5 mg PO TID PRN imipramine HCl 50 mg tablet 150 mg PO QHS ibuprofen 800 mg tablet 800 mg PO Q8H PRN bupropion HCl [Wellbutrin SR] 150 mg tablet sustained-release 12 hr 150 mg PO BID Rx Instructions: to stop smoking ondansetron HCl 4 mg tablet 4 mg PO Q8H PRN buspirone 5 mg tablet 5 mg PO TID aspirin [Adult Aspirin Regimen] 81 mg tablet,delayed release (DR/EC) 81 mg PO QDAY melatonin 5 mg capsule PO PRN pantoprazole 40 mg tablet,delayed release (DR/EC) 40 mg PO DAILY Qty: 90 3RF metformin 500 MG tablet 500 mg PO DAILY atorvastatin 20 MG tablet 20 mg PO QHS lisinopril 5 MG tablet 5 mg PO DAILY thiothixene 2 mg capsule 2 mg PO BID Referrals / Follow Up: Lulu Swanson NP, FABI-C [Primary Care Provider, Medical] - 11/30/24 11:00 am Disposition Disposition (needs filled in before D/C Order can be placed): Home, Self Care Charges/Coding Visit Charges Inpatient E&M: 35825 Disch Hosp >30min 11/23/24 1430 Cosigner Signature (if applicable): CC: CB Swanson; Dr. Romeo Mina MD~ Signed ADDENDUM by Dr. Romeo Mina MD on 11/23/24 at 1548 Addendum Patient had diarrhea prior to being discharged however stool sent came back negative for C. difficile nor any enteric pathogen. Patient was instructed to take Imodium as needed. Patient also had a prescription sent for levothyroxine she had been started on that during her hospitalization. Stool forguaiac came back positive and an appointment was set up with Dr. Ray for outpatient endoscopic evaluation 11/23/24 1548 Cosigner Signature (if applicable): cc: CB Swanson; Dr. Romeo Mina MD ~* Signed [facility]10-14-2025 Progress note Author Romeo Mina [facility] Note Date/Time November 23, 2024 9 :48am [facility] Medical Records Department [address] [place] [address] Progress Note - Hospitalist 11/23/24801 MR#: [id number] Acct: [id number] Name: DAVID ALDRICH Rep #:[id number] : 1960 64 From: Romeo Mina MD PCP: CB Landaverde Status:ADM I N Location: [place] [address] Reason for Visit Chief Complaint: SOB, Wheezing and Diaphoresis. Subjective Subjective Patient seen breathing improved. Plan is for patient to be assessed for home oxygen prior to discharge Objective Data Objective Data Vital Signs: Vital Signs Temp Pulse Resp BP Pulse Ox O2 Del Method O2 Flow Rate 98.3 F 101 H 18 132/65 H 92 Room Air 2 11/23/24 03:06 11/23/24 03:06 11/23/24 03:06 11/23/24 03:06 11/23/24 03:06 11/23/24 03:06 11/22/24 12:16 FiO2 28 11/18/24 21:15 Oxygen Flow Rate (L/min) 2 Oxygen Delivery Method Room Air Weight: 75.7 kg Body Mass Index (BMI) 31.5 Intake & Output: Intake and Output for Last 24 Hours 11/21/24 11/22/24 11/23/24 23:59 23:59 23:59 Intake Total 526.75 / 586.75 690 / 690 50 / 50 Output Total 1100 / 1100 0 / 0 Balance -573.25 / -513.25 690 / 690 50 / 50 Lab / Micro Data 11/23/24 04:42 11/23/24 04:42 Labs: Laboratory Results - last 24 hr 11/19/24 23:33: POC Glucose 160 H 11/22/24 11:26: POC Glucose 169 H 11/22/24 16:34: POC Glucose 120 H 11/22/24 23:55: POC Glucose 151 H 11/23/24 04:42: WBC 12.4 H, RBC 3.33 L, Hgb 10.3 L, Hct 29.7 L, MCV 89.2, MCH 30.9, MCHC 34.7, RDW Std Deviation 44.1 H, RDW Coeff of Panchito 13.5, Plt Count 240,MPV 9.7, Immature Gran % (Auto) 3.500 H, Neut % (Auto) 79.0 H, Lymph % (Auto) 7.8 L, Sebastian % (Auto) 9.0, Eos % (Auto) 0.1, Baso % (Auto) 0.6, Absolute Neuts (auto) 9.8 H, Absolute Lymphs (auto) 0.97, Nucleated RBC % 0.2, Sodium 134, Potassium 3.5, Chloride 102, Carbon Dioxide 20.0 L, Anion Gap 11, BUN 18, Creatinine 0.60 L, Estim Creat Clear Calc 89.33, Est GFR (MDRD) Non-Af 101, BUN/Creatinine Ratio 29.6 H, Glucose 175 H, Calcium 8.2, Phosphorus 2.4 L, Magnesium 1.9 11/23/24 06:33: POC Glucose 159 H Micro: Microbiology 11/18/24 21:40 Blood Culture (Wb) - Anticubital Right Blood Culture - Preliminary No growth in 48 hours. 11/18/24 21:10 Blood Culture (Wb) - Anticubital Left Blood Culture - Preliminary No growth in 48 hours. 11/19/24 08:25 Nasal Secretion MRSA (PCR) - Final 11/19/24 04:03 Mucosa - Nasopharyngeal Respiratory Panel (PCR) - Final 11/18/24 21:04 Mucosa - Nose SARS-CoV-2, Influenza & RSV (PCR) - Final Physical Exam Narrative GENERAL: cooperative HEENT: Atraumatic; normocephalic EYES; Anicteric, Normal Conjunctiva NECK; supple, normal thyroid, RESPIRATORY: Diminished to auscultation CARDIOVASCULAR: Regular S1 S2, GI: soft, normoactive bowel sounds, : No Renal angle tenderness; EXTREMITIES: No edema, no clubbing, MUSCULOSKELETAL: no muscle wasting NEURO: Awake; no lateralizing signs. SKIN: Extensive bruising left upper chest PSYCH; Flat affect Assessment & Plan Assessment/Plan (1) Hematoma of right chest wall: QUALIFIERS: Encounter type: subsequent encounter Qualified Code(s): S20.211D - Contusion of right front wall of thorax, subsequent encounter (2) Duodenitis: (3) Acute respiratory failure: QUALIFIERS: Respiratory failure complication: unspecified whether with hypoxia or hypercapnia Qualified Code(s): J96.00 - Acute respiratory failure, unspecified whether with hypoxia or hypercapnia (4) Bronchitis: (5) Hypothyroidism: QUALIFIERS: Hypothyroidism type: unspecified Qualified Code(s): E03.9 - Hypothyroidism, unspecified PLAN: Plan Patient is a 63-year-old lady who presented with shortness of breath and assessment of acute hypoxic respiratory failure secondary to COPD with acute exacerbation made started on noninvasive ventilation admitted to the intensive care unit stabilized and later transferred to PCU 1. Acute hypoxic respiratory failure ? Secondary to COPD with acute exacerbation. 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 Patient managed with broad-spectrum antibiotic therapy with Zosyn as well as Solu-Medrol. Patient was managed on noninvasive ventilation BiPAP which has since been weaned off ? 11/23/2024;Patient seen breathing improved. Plan is for patient to be assessed for home oxygen prior to discharge 2. Hemorrhagic shock ? Patient did develop huge hematoma in the pectoralis muscle following insertionof subclavian CVC. Patient was managed in the ICU with IV fluid as well as Levophed which has since been weaned off 3. Left upper chest hematoma ? Appears stable 4. Anemia ? Secondary to acute blood loss monitoring H&H and transfuse if patient becomes symptomatic or hemoglobin falls below 7 5.Polycythemia ? Which was present on admission with hemoglobin of 18.9 this was thought to be secondary to chronic hypoxia from COPD 6. Acute kidney injury ? Patient creatinine on admission was 1.36. At 1.57 down to 0.73 as of today 7. Acute colitis ? CT demonstrated abrupt narrowing of the proximal sigmoid colon with a short segment of wall thickening. This could represent focal colitis or a mucosal mass lesion. Plans for patient to follow-up with primary care physician to be referred for outpatient colonoscopy 8. Duodenitis ? On PPI 9. Hiatal hernia with GERD symptoms ? Patient is on PPI 10. Subclinical hypothyroidism ? Patient started on levothyroxine 11. Diabetes mellitus type 2 ? Patient is on metformin held on admission placed on Accu-Cheks ACHS with sliding scale coverage 12. Schizoaffective disorder -On thiothixene twice daily, buspirone 3 times daily, bupropion twice daily plusimipramine nightly. Held on admission and resumed 13. Dyslipidemia ?Patient is on statin therapy, continued at home dose 14. Peripheral arterial disease ? With history of right CEA 15. Essential hypertension ? Patient is on lisinopril held on admission given hypotension as well as worsening kidney function 16. Degenerative joint disease ? CT demonstrated Moderate to severe thoracolumbar spondylosis with mild lumbar scoliosis with mild dextroconvex scoliosis 17. Physical deconditioning ? Requested for PT OT eval and social media campaign manager to assist with discharge planning 18. Tobacco dependence ? Counseled on cessation, offered nicotine patch for tobacco cravings 19. DVT prophylaxis Bilateral SCDs Time spent in the patient's overall evaluation,decision-making process, review of diagnostic data, adjustment of management, discussion with other providers, nursing nursing and ancillary staff involved in patient's care documentation, 35 Minutes Charges/Coding Visit Charges Inpatient E&M: 34010 Subs Hosp L2 11/23/24 0948 <Electronically signed by Romeo Mina MD> Cosigner Signature (if applicable): CC: ~ Signed [facility] Work Phone: [phone]) 747-335710-14-2025 [facility]10-14-2025 Progress note [facility] Medical Records Department [address] [place] [address] Progress Note - Hospitalist 11/23/24 08 MR#: [id number] Acct: [id number] Name: DAVID ALDRICH Rep #:[id number] : 1960 64 From: Romeo Mina MD PCP: Lulu Swanson PROCESS OPERATOR-C Status:ADM I N Location: [place] [address] Reason for Visit Chief Complaint: SOB, Wheezing and Diaphoresis. Subjective Subjective Patient seen breathing improved. Plan is for patient to be assessed for home oxygen prior to discharge Objective Data Objective Data Vital Signs: Vital Signs Temp Pulse Resp BP Pulse Ox O2 Del Method O2 Flow Rate 98.3 F 101 H 18 132/65 H 92 Room Air 2 11/23/24 03:06 11/23/24 03:06 11/23/24 03:06 11/23/24 03:06 11/23/24 03:06 11/23/24 03:06 11/22/24 12:16 FiO2 28 11/18/24 21:15 Oxygen Flow Rate (L/min) 2 Oxygen Delivery Method Room Air Weight: 75.7 kg Body Mass Index (BMI) 31.5 Intake & Output: Intake and Output for Last 24 Hours 11/21/24 11/22/24 11/23/24 23:59 23:59 23:59 Intake Total 526.75 / 586.75 690 / 690 50 / 50 Output Total 1100 / 1100 0 / 0 Balance -573.25 / -513.25 690 / 690 50 / 50 Lab / Micro Data 11/23/24 04:42 11/23/24 04:42 Labs: Laboratory Results - last 24 hr 11/19/24 23:33: POC Glucose 160 H 11/22/24 11:26: POC Glucose 169 H 11/22/24 16:34: POC Glucose 120 H 11/22/24 23:55: POC Glucose 151 H 11/23/24 04:42: WBC 12.4 H, RBC 3.33 L, Hgb 10.3 L, Hct 29.7 L, MCV 89.2, MCH 30.9, MCHC 34.7, RDW Std Deviation 44.1 H, RDW Coeff of Panchito 13.5, Plt Count 240,MPV 9.7, Immature Gran % (Auto) 3.500 H, Neut % (Auto) 79.0 H, Lymph % (Auto) 7.8 L, Sebastian % (Auto) 9.0, Eos % (Auto) 0.1, Baso % (Auto) 0.6, Absolute Neuts (auto) 9.8 H, Absolute Lymphs (auto) 0.97, Nucleated RBC % 0.2, Sodium 134, Potassium3.5, Chloride 102, Carbon Dioxide 20.0 L, Anion Gap 11, BUN 18, Creatinine 0.60 L, Estim Creat Clear Calc 89.33, Est GFR (MDRD) Non-Af 101, BUN/Creatinine Ratio 29.6 H, Glucose 175 H, Calcium 8.2, Phosphorus 2.4 L, Magnesium 1.9 11/23/24 06:33: POC Glucose 159 H Micro: Microbiology 11/18/24 21:40 Blood Culture (Wb) - Anticubital Right Blood Culture - Preliminary No growth in 48 hours. 11/18/24 21:10 Blood Culture (Wb) - Anticubital Left Blood Culture - Preliminary No growth in 48 hours. 11/19/24 08:25 Nasal Secretion MRSA (PCR) - Final 11/19/24 04:03 Mucosa - Nasopharyngeal Respiratory Panel (PCR) - Final 11/18/24 21:04 Mucosa - Nose SARS-CoV-2, Influenza & RSV (PCR) - Final Physical Exam Narrative GENERAL: cooperative HEENT: Atraumatic; normocephalic EYES; Anicteric, Normal Conjunctiva NECK; supple, normal thyroid, RESPIRATORY: Diminished to auscultation CARDIOVASCULAR: Regular S1 S2, GI: soft, normoactive bowel sounds, : No Renal angle tenderness; EXTREMITIES: No edema, no clubbing, MUSCULOSKELETAL: no muscle wasting NEURO: Awake; no lateralizing signs. SKIN: Extensive bruising left upper chest PSYCH; Flat affect Assessment & Plan Assessment/Plan (1) Hematoma of right chest wall: QUALIFIERS: Encounter type: subsequent encounter Qualified Code(s): S20.211D - Contusion of right front wall of thorax, subsequent encounter (2) Duodenitis: (3) Acute respiratory failure: QUALIFIERS: Respiratory failure complication: unspecified whether with hypoxia or hypercapnia Qualified Code(s): J96.00 - Acute respiratory failure, unspecified whether with hypoxia or hypercapnia (4) Bronchitis: (5) Hypothyroidism: QUALIFIERS: Hypothyroidism type: unspecified Qualified Code(s): E03.9 - Hypothyroidism, unspecified PLAN: Plan Patient is a 63-year-old lady who presented with shortness of breath and assessment of acute hypoxic respiratory failure secondary to COPD with acute exacerbation made started on noninvasive ventilation admitted to the intensive care unit stabilized and later transferred to PCU 1. Acute hypoxic respiratory failure ? Secondary to COPD with acute exacerbation. 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 Patient managed with broad-spectrum antibiotic therapy with Zosyn as well as Solu-Medrol. Patient was managed on noninvasive ventilation BiPAP which has since been weaned off ? 11/23/2024;Patient seen breathing improved. Plan is for patient to be assessed for home oxygen prior to discharge 2. Hemorrhagic shock ? Patient did develop huge hematoma in the pectoralis muscle following insertionof subclavian CVC. Patient was managed in the ICU with IV fluid as well as Levophed which has since been weaned off 3. Left upper chest hematoma ? Appears stable 4. Anemia ? Secondary to acute blood loss monitoring H&H and transfuse if patient becomes symptomatic or hemoglobin falls below 7 5.Polycythemia ? Which was present on admission with hemoglobin of 18.9 this was thought to be secondary to chronic hypoxia from COPD 6. Acute kidney injury ? Patient creatinine on admission was 1.36. At 1.57 down to 0.73 as of today 7. Acute colitis ? CT demonstrated abrupt narrowing of the proximal sigmoid colon with a short segment of wall thickening. This could represent focal colitis or a mucosal mass lesion. Plans for patient to follow-up with primary care physician to be referred for outpatient colonoscopy 8. Duodenitis ? On PPI 9. Hiatal hernia with GERD symptoms ? Patient is on PPI 10. Subclinical hypothyroidism ? Patient started on levothyroxine 11. Diabetes mellitus type 2 ? Patient is on metformin held on admission placed on Accu-Cheks ACHS with sliding scale coverage 12. Schizoaffective disorder -On thiothixene twice daily, buspirone 3 times daily, bupropion twice daily plusimipramine nightly.Held on admission and resumed 13. Dyslipidemia ?Patient is on statin therapy, continued at home dose 14. Peripheral arterial disease ? With history of right CEA 15. Essential hypertension ? Patient is on lisinopril held on admission given hypotension as well as worsening kidney function 16. Degenerative joint disease ? CT demonstrated Moderate to severe thoracolumbar spondylosis with mild lumbar scoliosis with milddextroconvex scoliosis 17. Physical deconditioning ? Requested for PT OT eval and social media campaign manager to assist with discharge planning 18. Tobacco dependence ? Counseled on cessation, offered nicotine patch for tobacco cravings 19. DVT prophylaxis Bilateral SCDs Time spent in the patient's overall evaluation,decision-making process, review of diagnostic data, adjustment of management, discussion with other providers, nursing nursing and ancillary staff involved in patient's care documentation, 35 Minutes Charges/Coding Visit Charges Inpatient E&M: 26571 Subs Hosp L2 11/23/24 0948 Cosigner Signature (if applicable): CC: ~ Signed [facility]10-13-2025 Progress note Author Alejandro Pool [facility] Note Date/Time November 22, 2024 1 2:50pm [facility] Medical Records Department [address] [place] [address] Progress Note - Surgery 11/22/24 1248 MR#: [id number] Acct: [id number] Name: DAVID ALDRICH Rep #:[id number] : 1960 64 From: Alejandro Pool MD PCP: CB Landaverde Status:ADM I N Location: [place] [address] Subjective Subjective Feeling better. Some right chest wall discomfort, no worse over weekend. Objective Data Objective Data A&O x 3, NAD RRR Resp non labored right chest hematoma with no skin compromise Vital Signs: Vital Signs Temp Pulse Resp BP Pulse Ox O2 Del Method O2 Flow Rate 98.1 F 101 H 18 143/78 H 94 Nasal Cannula 2 11/22/24 09:06 11/22/24 09:06 11/22/24 09:06 11/22/24 09:06 11/22/24 09:12 11/22/24 09:12 11/22/24 12:16 FiO2 28 11/18/24 21:15 Oxygen Flow Rate (L/min) 2 Oxygen Delivery Method Nasal Cannula Weight: 165 lb 9.074 oz Body Mass Index (BMI) 31.2 Intake & Output: Intake and Output for Last 24 Hours 11/20/24 11/21/24 11/22/24 23:59 23:59 23:59 Intake Total 537.40 / 537.40 526.75 / 586.75 160 / 160 Output Total 1700 / 2200 1100 / 1100 0 / 0 Balance -1162.60 / -1662.60 -573.25 / -513.25 160 / 160 Lab / Micro Data 11/22/24 04:50 11/22/24 04:50 Labs: Laboratory Results - last 24 hr 11/21/24 17:18: POC Glucose 133 H 11/21/24 21:12: POC Glucose 114 H 11/22/24 04:50: WBC 12.7 H, RBC 3.03 L, Hgb 9.6 L, Hct 26.8 L, MCV 88.4, MCH 31.7, MCHC 35.8, RDW Std Deviation 43.9, RDW Coeff of Panchito 13.5, Plt Count 191, MPV 10.2, Immature Gran % (Auto) 0.900, Neut % (Auto) 83.0 H, Lymph % (Auto) 7.9L, Sebastian % (Auto) 7.4, Eos % (Auto) 0.5, Baso % (Auto) 0.3, Absolute Neuts (auto)10.5 H, Absolute Lymphs (auto) 1.00, Nucleated RBC % 0, Differential Comment SCANNED, Sodium 134, Potassium 3.5, Chloride 104, Carbon Dioxide 20.0 L, Anion Gap 10, BUN 17, Creatinine 0.73, Estim Creat Clear Calc 73.12, Est GFR (MDRD) Non-Af 92, BUN/Creatinine Ratio 23.2 H, Glucose 125 H, Calcium 8.4 11/22/24 11:26: POC Glucose 169 H Micro: Microbiology 11/18/24 21:40 Blood Culture (Wb) - Anticubital Right Blood Culture - Preliminary No growth in 48 hours. 11/18/24 21:10 Blood Culture (Wb) - Anticubital Left Blood Culture - Preliminary No growth in 48 hours. 11/19/24 08:25 Nasal Secretion MRSA (PCR) - Final 11/19/24 04:03 Mucosa - Nasopharyngeal Respiratory Panel (PCR) - Final 11/18/24 21:04 Mucosa - Nose SARS-CoV-2, Influenza & RSV (PCR) - Final Assessment & Plan Assessment/Plan (1) Hematoma of right chest wall: QUALIFIERS: Encounter type: subsequent encounter Qualified Code(s): S20.211D - Contusion of right front wall of thorax, subsequent encounter PLAN: -hematoma stable over 2 CT scans -CTA revealed source as language and literature division chair vessel with/under pec major -clinically stable -no surgical plans 11/22/24 1250 <Electronically signed by Alejandro Pool MD> Cosigner Signature (if applicable): CC: ~ Signed [facility] Work Phone: [phone] Consult note Author Elizabeth Caputo [facility] Note Date/Time November 22, 2024 1 2:41pm [facility] Medical Records Department [address] [place] [id number] Consultation - Surgical 11/19/24 1248 MR#: [id number] Acct: [id number] Name: DAVID ALDRICH Rep #:[id number] : 1960 64 From: Elizabeth BURGOS PCP: PREMA LandaverdeC Status:ADM I N Location: [place] [address] Assessment & Plan Assessment/Plan (1) Hematoma of right chest wall: PLAN: CTA images were reviewed; demonstrated R chest wall hematoma without subclavian artery involvement/active arterial bleeding; expect this to self-limiting and plan for continued monitoring. Do recommend utilizing sandbag for compression. Hold anticoagulants and antiplatelets and would hold her ASA on discharge as well. HPI Consult Data Date of Consult: 11/19/24 HPI Narrative HPI Narrative: DAVID ALDRICH, is a 64 F who was admitted to the ICU from the [facility] ER last night/early this morning with acute respiratory failure requiring bipap and suspected septic shock requiring vasopressor support. While in the ER, there were attempts to place a central line via the R subclavian which were unsuccessful and ultimately central line was place in the L subclavian. Overnight, she developed a progressive R chest wall hematoma confirmed on noncontrast CT this morning. It was noted to continue to enlarge through the morning before seeming to level off through the afternoon. She does not take anyanticoagulants at home, only ASA. On my exam today, she is off bipap and on RA; she is still requiring vasopressor support but this has been stable and they aretrying to wean. She reports no active pain to the chest wall, only tenderness with deeper palpation. [facility] Medical History Nicotine use disorder Septic arthritis Elevated coronary artery calcium score Neck pain Bilateral carotid artery stenosis Snoring Peripheral arterial disease Fatty liver disease, nonalcoholic Major depressive disorder, recurrent episode Bradycardia Palpitations SOB (shortness of breath) Diabetic acetonemia COPD (chronic obstructive pulmonary disease) Hyperlipidemia Home Medications ?Medication ?Instructions ?Recorded ?Last Taken ?Type atorvastatin 20 mg tablet 20 mg PO QHS 12/22/17 Unknow n History lisinopril 5 mg tablet 5 mg PO DAILY 12/22/17 Unkno wn History metformin 500 mg tablet 500 mg PO DAILY 12/22/17 Unk nown History aspirin 81 mg tablet,delayed 81 mg PO QDAY 01/14/24 Un known History release (Adult Aspirin Regimen) bupropion HCl 150 mg tablet,12 hr 150 mg PO BID Unknown History sustained-release (Wellbutrin SR) buspirone 5 mg tablet 5 mg PO TID 01/14/24 Unknown History cyclobenzaprine 5 mg tablet 5 mg PO TID PRN 01/14/24 U nknown History fluticasone fur. 100 mcg-umeclid 1 inh inhalation QDAY 01/14/24 Unknown History 62.5 mcg-vilant 25 mcg inhalat.powder (Trelegy Ellipta) ibuprofen 800 mg tablet 800 mg PO Q8H PRN 01/14/24 U nknown History imipramine HCl 50 mg tablet 150 mg PO QHS 01/14/24 Unk nown History ondansetron HCl 4 mg tablet 4 mg PO Q8H PRN 01/14/24 U nknown History thiothixene 2 mg capsule 2 mg PO BID 01/14/24 Unknown History zolpidem 10 mg tablet (Ambien) 10 mg PO QHS PRN sleep 01/14/24 Unknown History melatonin 5 mg capsule mg PO PRN 01/21/24 Unknown H istory pantoprazole 40 mg tablet,delayed 40 mg PO DAILY #90 t abs 03/26/24 Unknown Rx release Allergy/AdvReac Type Severity Reaction Status Date / Time simvastatin Allergy Other Verified 11/18/24 21:07 Family History Mother Heart disease Father Diabetes Brother Parkinson's disease Surgical History History of arthroscopy of knee History of colonoscopy History of rectal polypectomy History of cardiac catheterization H/O carotid endarterectomy History of appendectomy Social History household members: children Smoking Status: Current every day smoker tobacco type: cigarettes alcohol intake: never substance use type: does not use caffeine: Yes Physical Exam Const alert, oriented x3 and no apparent distress HEENT normocephalic, head/scalp atraumatic and external nose normal Eyes EOMs intact bilaterally General Eye: normal appearance of both eyes Neck General: normal visual inspection Chest Chest Narrative: R proximal chest wall just inferior to clavicle with large focal swelling which is soft to palpation throughout; skin overlying the area is intact Resp normal respiratory effort and no retractions Effort and Inspection: able to speak in complete sentences Cardio Rate: regular rate Rhythm: regular rhythm Skin no rashes or lesions noted Neuro Speech: speech normal Psych mental status grossly normal Lab / Micro Data 11/19/24 07:04 11/19/24 07:04 Labs: Laboratory Results - last 24 hr 11/18/24 21:00: WBC 13.9 H, RBC 6.01 H, Hgb 18.9 H*, Hct 55.1 H, MCV 91.7, MCH 31.4, MCHC 34.3, RDW Std Deviation 44.1 H, RDW Coeff of Panchito 13.0, Plt Count 390,MPV 10.6, Immature Gran % (Auto) 0.800, Neut % (Auto) 55.3, Lymph % (Auto) 35.6,Sebastian % (Auto) 4.5, Eos % (Auto) 2.9, Baso % (Auto) 0.9, Absolute Neuts (auto) 7.7, Absolute Lymphs (auto) 4.95 H, Nucleated RBC % 0, PT 15.7 H, INR 1.2, APTT 32.1, Sodium 134, Potassium 4.0, Chloride 98, Carbon Dioxide 17.7 L, Anion Gap 18 H, BUN 17, Creatinine 1.36 H, Estim Creat Clear Calc 39.22 L, Est GFR (MDRD) Non-Af 44 L, BUN/Creatinine Ratio 12.4, Glucose 316 H, Calcium 10.0, Total Bilirubin 0.53, AST 64 H, ALT 38 H, Alkaline Phosphatase 115 H, Troponin T High Sens 11, Total Protein 6.8, Albumin 3.9, Globulin 2.9, Albumin/Globulin Ratio 1.3, b-Hydroxybutyric mmol/L 0.2, TSH 16.900 H, Cortisol PM Sample 35.80 H 11/18/24 21:08: Lactic Acid 3.0 H* 11/18/24 21:42: Urine Color Yellow, Urine Clarity Clear, Urine pH 6.0, Ur Specific [place] 1.015, Urine Protein 100 H, Urine Glucose (UA) Normal, Urine Ketones Negative, Urine Occult Blood 10 H, Urine Nitrite Negative, Urine Bilirubin 6 H, Urine Urobilinogen Normal, Ur Leukocyte Esterase 25 H, Urine RBC 0-5 SEEN, Urine WBC 0-5 SEEN, Ur Squamous Epith Cells 0-5 SEEN, Urine Bacteria 0SEEN, Urine Mucus 0 SEEN 11/18/24 23:16: Troponin T Hi Sens 2 Hr 15 H 11/19/24 01:24: Troponin T Hi Sens 4Hr 22 H 11/19/24 02:10: D-Dimer Quant (PE/DVT) > 20.00 H*, Hemoglobin A1c 6.1 H, Lactic Acid 2.1 H*, Magnesium 2.6 H, Free T4 0.90, Free T3 pg/dL 2.4 11/19/24 07:02: POC Glucose 223 H 11/19/24 07:04: WBC 21.4 H, RBC 4.00 L, Hgb 12.6, Hct 37.1, MCV 92.8, MCH 31.5, MCHC 34.0, RDW Std Deviation 45.2 H, RDW Coeff of Panchito 13.2, Plt Count 276, MPV 9.7, Immature Gran % (Auto) 0.600, Neut % (Auto) 90.7 H, Lymph % (Auto) 3.5 L, Sebastian % (Auto) 4.9, Eos % (Auto) 0.1, Baso % (Auto) 0.2, Absolute Neuts (auto) 19.5 H, Absolute Lymphs (auto) 0.75 L, Nucleated RBC % 0, Sodium 135, Potassium 4.4, Chloride 109 H, Carbon Dioxide 14.8 L, Anion Gap 12, BUN 25 H, Creatinine 1.57 H, Estim Creat Clear Calc 33.79 L, Est GFR (MDRD) Non-Af 37 L, BUN/Creatinine Ratio 15.9, Glucose 258 H, Lactic Acid 2.7 H*, Calcium 7.3 L, Phosphorus 5.1 H, Total Bilirubin 0.45, AST 56 H, ALT 45 H, Alkaline Phosphatase 64, Total Protein 4.5 L, Albumin 2.7 L, Globulin 1.8 L, Albumin/Globulin Ratio 1.5, Triglycerides 56, Cholesterol 71, LDL Cholesterol, Calc 27, VLDL Cholesterol 11, HDL Cholesterol 33 L, Cholesterol/HDL Ratio 2.13 Micro: Microbiology 11/19/24 08:25 Nasal Secretion MRSA (PCR) - Final 11/19/24 04:03 Mucosa - Nasopharyngeal Respiratory Panel (PCR) - Final 11/18/24 21:04 Mucosa - Nose SARS-CoV-2, Influenza & RSV (PCR) - Final ABG Data ABG results: ABG 11/18/24 11/19/24 21:07 04:24 Specimen Type ART ART Sample Site L Radial L Radial pH 7.30 L 7.30 L Bicarbonate Actual 13.1 L 14.9 L Total CO2 14 16 Base Excess -13 L -12 L O2 Saturation 100 H 95 O2 % 6.0 ABG pCO2 26.6 L 30.4 L ABG pO2 504 H* 81 Nayana Test N/A Positive O2 Delivery Device Cannula Room Air Vent Mode Not entered Not entered Crit Call To/Read Back Yes Blood Gas Notified Whom Dr Marques Blood Gas Notified Time 21:09:37 Imaging Radiology Impression Chest X-Ray 11/18/24 20:50 IMPRESSION: No acute cardiopulmonary disease. Reading Location: [facility] Chest X-Ray 11/18/24 22:34 IMPRESSION: Left subclavian central venous catheter with tip at the lower SVC. Unchanged lung aeration. No pneumothorax or sizable pleural effusion. Reading Location: [facility] Chest CTA 11/18/24 22:41 IMPRESSION: No CT evidence of a pulmonary embolism. Mild chronic fibroemphysematous pulmonary changes, as described above. Mediastinal lymphadenopathy. Soft tissue thickening in the bilateral hilar regions may represent hilar lymphadenopathy or peribronchial infiltrates. Please correlate clinically for bronchitis. Moderate thoracic spondylosis with mild dextro convex scoliosis. Reading Location: [facility] Abdomen/Pelvis CT 11/19/24 00:03 IMPRESSION: 1. Abrupt narrowing of the proximal sigmoid colon with a short segment of wall thickening. This could represent focal colitis or a mucosal mass lesion. 2. Mild wall thickening of the duodenum with mild adjacent fat stranding, concerning for duodenitis. 3. Mild dilatation of the large and small bowel proximal to the focal narrowingin the proximal sigmoid colon, which could represent a low-grade partial small bowel obstruction. 4. Large amount of stool within the distal sigmoid colon and rectum. 5. Small hiatal hernia. 6. Moderate to severe thoracolumbar spondylosis with mild lumbar scoliosis. Reading Location: [facility] Echocardiogram 11/19/24 02:04 Interpretation Summary Technically difficult study with suboptimal images. Mild concentric left ventricular hypertrophy. The left ventricular ejection fraction is 65 %. Stage 1 diastolic dysfunction. Ordering Physician: Romeo Khan Referring Physician: LULU SAWNSON Performed By: Agnieszka Brenner RCS Chest CT 11/19/24 03:46 IMPRESSION: Coronary artery calcification (CAC) is is present Acute soft tissue hematoma is noted underlying the right pectoralis muscle in the interim measuring 3.9 x 8.4 x 9.1 cm in its largest anteroposterior, transverse and craniocaudal dimensions respectively. Secondary mild displacement and edema of the right pectoralis muscle. Mild surrounding soft tissue edema. Unchanged mild bilateral basilar pleural thickening/effusions. Unchanged minimal bilateral basilar atelectatic pulmonary changes. Unchanged emphysema/chronic interstitial thickening. Unchanged mildly enlarged mediastinal lymph nodes with the largest measuring 1.2cm. Chronic deformity of the axillary portion of the right 6th rib, unchanged. Reading [facility] Charges/Coding Visit Charges Inpatient E&M: [address] Init Hosp L1 11/19/24 1640 <Electronically signed by Elizabeth BURGOS> Cosigner Signature (if applicable): 11/22/24 1241 <Electronically signed by Alejandro Pool MD> CC: CB Swanson~ Signed [facility] Work Phone: 1(615) 737-539810-13-2025 Progress note [facility] Medical Records Department [address] [place] [id number] Progress Note - Surgery 11/22/24 1248 MR#: [id number] Acct: [id number] Name: DAVID ALDRICH Rep #:[id number] : 1960 64 From: Alejandro Pool MD PCP: CB Landaverde Status:ADM I N Location: [place] [address] Subjective Subjective Feeling better. Some right chest wall discomfort, no worse over weekend. Objective Data Objective Data A&O x 3, NAD RRR Resp non labored right chest hematoma with no skin compromise Vital Signs: Vital Signs Temp Pulse Resp BP Pulse Ox O2 Del Method O2 Flow Rate 98.1 F 101 H 18 143/78 H 94 Nasal Cannula 2 11/22/24 09:06 11/22/24 09:06 11/22/24 09:06 11/22/24 09:06 11/22/24 09:12 11/22/24 09:12 11/22/24 12:16 FiO2 28 11/18/24 21:15 Oxygen Flow Rate (L/min) 2 Oxygen Delivery Method Nasal Cannula Weight: 165 lb 9.074 oz Body Mass Index (BMI) 31.2 Intake & Output: Intake and Output for Last 24 Hours 11/20/24 11/21/24 11/22/24 23:59 23:59 23:59 Intake Total 537.40 / 537.40 526.75 / 586.75 160 / 160 Output Total 1700 / 2200 1100 / 1100 0 / 0 Balance -1162.60 / -1662.60 -573.25 / -513.25 160 / 160 Lab / Micro Data 11/22/24 04:50 11/22/24 04:50 Labs: Laboratory Results - last 24 hr 11/21/24 17:18: POC Glucose 133 H 11/21/24 21:12: POC Glucose 114 H 11/22/24 04:50: WBC 12.7 H, RBC 3.03 L, Hgb 9.6 L, Hct 26.8 L, MCV 88.4, MCH 31.7, MCHC 35.8, RDW Std Deviation 43.9, RDW Coeff of Panchito 13.5, Plt Count 191, MPV 10.2, Immature Gran % (Auto) 0.900, Neut % (Auto) 83.0 H, Lymph % (Auto) 7.9L, Sebastian % (Auto) 7.4, Eos % (Auto) 0.5, Baso % (Auto) 0.3, Absolute Neuts (auto)10.5 H, Absolute Lymphs (auto) 1.00, Nucleated RBC % 0, Differential Comment SCANNED, Sodium 134, Potassium 3.5, Chloride 104, Carbon Dioxide 20.0 L, Anion Gap 10, BUN 17, Creatinine 0.73, Estim Creat Clear Calc 73.12, Est GFR (MDRD) Non-Af 92, BUN/Creatinine Ratio 23.2 H, Glucose 125 H, Calcium 8.4 11/22/24 11:26: POC Glucose 169 H Micro: Microbiology 11/18/24 21:40 Blood Culture (Wb) - Anticubital Right Blood Culture - Preliminary No growth in 48 hours. 11/18/24 21:10 Blood Culture (Wb) - Anticubital Left Blood Culture - Preliminary No growth in 48 hours. 11/19/24 08:25 Nasal Secretion MRSA (PCR) - Final 11/19/24 04:03 Mucosa - Nasopharyngeal Respiratory Panel (PCR) - Final 11/18/24 21:04 Mucosa - Nose SARS-CoV-2, Influenza & RSV (PCR) - Final Assessment & Plan Assessment/Plan (1) Hematoma of right chest wall: QUALIFIERS: Encounter type: subsequent encounter Qualified Code(s): S20.211D - Contusion of right front wall of thorax, subsequent encounter PLAN: -hematoma stable over 2 CT scans -CTA revealed source as language and literature division chair vessel with/under pec major -clinically stable -no surgical plans 11/22/24 1250 Cosigner Signature (if applicable): CC: ~ Signed [facility]10-13-2025 Consult note [facility] Medical Records Department [address] [address] Consultation - Surgical 11/19/24 1248 MR#: [id number] Acct: [id number] Name: DAVID ALDRICH Rep #:[id number] : 1960 64 From: Elizabeth BURGOS PCP: Lulu Swanson NP-C Status:ADM I N Location: [place] [address] Assessment & Plan Assessment/Plan (1) Hematoma of right chest wall: PLAN: CTA images were reviewed; demonstrated R chest wall hematoma without subclavian artery involvement/active arterial bleeding; expect this to self- limiting and plan for continued monitoring. Do recommend utilizing sandbag for compression. Hold anticoagulants and antiplatelets and would hold herASA on discharge as well. HPI Consult Data Date of Consult: 11/19/24 HPI Narrative HPI Narrative: DAVID ALDRICH, is a 64 F who was admitted to the ICU from the [facility] ER last night/early this morning with acute respiratory failure requiring bipap and suspected septic shock requiring vasopressor support. While in the ER, there were attempts to place a central line via the R subclavian which were unsucc essful and ultimately central line was place in the L subclavian. Overnight, she developed a progressive R chest wall hematoma confirmed on noncontrast CT this morning. It was noted to continue to enlarge through the morning before seeming to level off through the afternoon. She does not take anyanticoagulants at home, only ASA. On my exam today, she is off bipap and on RA; she is still requiring vasopressor support but this has been stable and they aretrying to wean. She reports no active painto the chest wall, only tenderness with deeper palpation. [facility] Medical History Nicotine use disorder Septic arthritis Elevated coronary artery calcium score Neck pain Bilateral carotid artery stenosis Snoring Peripheral arterial disease Fatty liver disease, nonalcoholic Major depressive disorder, recurrent episode Bradycardia Palpitations SOB (shortness of breath) Diabetic acetonemia COPD (chronic obstructive pulmonary disease) Hyperlipidemia Home Medications ?Medication ?Instructions ?Recorded ?Last Taken ?Type atorvastatin 20 mg tablet 20 mg PO QHS 12/22/17 Unknow n History lisinopril 5 mg tablet 5 mg PO DAILY 12/22/17 Unkno wn History metformin 500 mg tablet 500 mg PO DAILY 12/22/17 Unk nown History aspirin 81 mg tablet,delayed 81 mg PO QDAY 01/14/24 Un known History release (Adult Aspirin Regimen) bupropion HCl 150 mg tablet,12 hr 150 mg PO BID Unknown History sustained-release (Wellbutrin SR) buspirone 5 mg tablet 5 mg PO TID 01/14/24 Unknown History cyclobenzaprine 5 mg tablet 5 mg PO TID PRN 01/14/24 U nknown History fluticasone fur. 100 mcg-umeclid 1 inh inhalation QDAY 01/14/24 Unknown History 62.5 mcg-vilant 25 mcg inhalat.powder (Trelegy Ellipta) ibuprofen 800 mg tablet 800 mg PO Q8H PRN 01/14/24 U nknown History imipramine HCl 50 mg tablet 150 mg PO QHS 01/14/24 Unk nown History ondansetron HCl 4 mg tablet 4 mg PO Q8H PRN 01/14/24 U nknown History thiothixene 2 mg capsule 2 mg PO BID 01/14/24 Unknown History zolpidem 10 mg tablet (Ambien) 10 mg PO QHS PRN sleep 01/14/24 Unknown History melatonin 5 mg capsule mg PO PRN 01/21/24 Unknown H istory pantoprazole 40 mg tablet,delayed 40 mg PO DAILY #90 t abs 03/26/24 Unknown Rx release Allergy/AdvReac Type Severity Reaction Status Date / Time simvastatin Allergy Other Verified 11/18/24 21:07 Family History Mother Heart disease Father Diabetes Brother Parkinson's disease Surgical History History of arthroscopy of knee History of colonoscopy History of rectal polypectomy History of cardiac catheterization H/O carotid endarterectomy History of appendectomy Social History household members: children Smoking Status: Current every day smoker tobacco type: cigarettes alcohol intake: never substance use type: does not use caffeine: Yes Physical Exam Const alert, oriented x3 and no apparent distress HEENT normocephalic, head/scalp atraumatic and external nose normal Eyes EOMs intact bilaterally General Eye: normal appearance of both eyes Neck General: normal visual inspection Chest Chest Narrative: R proximal chest wall just inferior to clavicle with large focal swelling which is soft to palpation throughout; skin overlying the area is intact Resp normal respiratory effort and no retractions Effort and Inspection: able to speak in complete sentences Cardio Rate: regular rate Rhythm: regular rhythm Skin no rashes or lesions noted Neuro Speech: speech normal Psych mental status grossly normal Lab / Micro Data 11/19/24 07:04 11/19/24 07:04 Labs: Laboratory Results - last 24 hr 11/18/24 21:00: WBC 13.9 H, RBC 6.01 H, Hgb 18.9 H*, Hct 55.1 H, MCV 91.7, MCH 31.4, MCHC 34.3, RDWStd Deviation 44.1 H, RDW Coeff of Panchito 13.0, Plt Count 390,MPV 10.6, Immature Gran % (Auto) 0.800, Neut % (Auto) 55.3, Lymph % (Auto) 35.6,Sebastian % (Auto) 4.5, Eos % (Auto) 2.9, Baso % (Auto) 0.9, Absolute Neuts (auto) 7.7, Absolute Lymphs (auto) 4.95 H, Nucleated RBC % 0, PT 15.7 H, INR 1.2, APTT 32.1, Sodium 134, Potassium 4.0, Chloride 98, Carbon Dioxide 17.7 L, Anion Gap 18 H, BUN 17, Creatinine 1.36 H, Estim Creat Clear Calc 39.22 L, Est GFR (MDRD) Non-Af 44 L, BUN/Creatinine Ratio 12.4, Glucose 316 H, Calcium 10.0, Total Bilirubin 0.53, AST 64 H, ALT 38 H, Alkaline Phosphatase 115 H, Troponin T High Sens 11, Total Protein 6.8, Albumin 3.9, Globulin 2.9, Albumin/Globulin Ratio 1.3, b-Hydroxybutyric mmol/L 0.2, TSH 16.900 H, Cortisol PM Sample 35.80 H 11/18/24 21:08: Lactic Acid 3.0 H* 11/18/24 21:42: Urine Color Yellow, Urine Clarity Clear, Urine pH 6.0, Ur Specific [place] 1.015, Urine Protein 100 H, Urine Glucose (UA) Normal, Urine Ketones Negative, Urine Occult Blood 10 H, Urine Nitrite Negative, Urine Bilirubin 6 H, Urine Urobilinogen Normal, Ur Leukocyte Esterase 25 H, Urine RBC 0-5 SEEN, Urine WBC 0-5 SEEN, Ur Squamous Epith Cells 0-5 SEEN, Urine Bacteria 0SEEN, Urine Mucus 0 SEEN 11/18/24 23:16: Troponin T Hi Sens 2 Hr 15 H 11/19/24 01:24: Troponin T Hi Sens 4Hr 22 H 11/19/24 02:10: D-Dimer Quant (PE/DVT) > 20.00 H*, Hemoglobin A1c 6.1 H, Lactic Acid 2.1 H*, Magnesium 2.6 H, Free T4 0.90, Free T3 pg/dL 2.4 11/19/24 07:02: POC Glucose 223 H 11/19/24 07:04: WBC 21.4 H, RBC 4.00 L, Hgb 12.6, Hct 37.1, MCV 92.8, MCH 31.5, MCHC 34.0, RDW Std Deviation 45.2 H, RDW Coeff of Panchito 13.2, Plt Count 276, MPV 9.7, Immature Gran % (Auto) 0.600, Neut % (Auto) 90.7 H, Lymph % (Auto) 3.5 L, Sebastian % (Auto) 4.9, Eos % (Auto) 0.1, Baso % (Auto) 0.2, Absolute Neuts (auto) 19.5 H, Absolute Lymphs (auto) 0.75 L, Nucleated RBC % 0, Sodium 135, Potassium 4.4, Chloride 109 H, Carbon Dioxide 14.8 L, Anion Gap 12, BUN 25 H, Creatinine 1.57 H, Estim Creat Clear Calc 33.79 L, Est GFR (MDRD) Non-Af 37 L, BUN/Creatinine Ratio 15.9, Glucose 258 H, Lactic Acid 2.7 H*, Calcium 7.3 L, Phosphorus 5.1 H, Total Bilirubin 0.45, AST 56 H, ALT 45 H, Alkaline Phosphatase 64, Total Protein 4.5 L, Albumin 2.7 L, Globulin 1.8 L, Albumin/Globulin Ratio 1.5, Triglycerides 56, Cholesterol 71, LDL Cholesterol, Calc 27, VLDL Cholesterol 11, HDL Cholesterol 33 L, Cholesterol/HDL Ratio 2.13 Micro: Microbiology 11/19/24 08:25 Nasal Secretion MRSA (PCR) - Final 11/19/24 04:03 Mucosa - Nasopharyngeal Respiratory Panel (PCR) - Final 11/18/24 21:04 Mucosa - Nose SARS-CoV-2, Influenza & RSV (PCR) - Final ABG Data ABG results: ABG 11/18/24 11/19/24 21:07 04:24 Specimen Type ART ART Sample Site L Radial L Radial pH 7.30 L 7.30 L Bicarbonate Actual 13.1 L 14.9 L Total CO2 14 16 Base Excess -13 L -12 L O2 Saturation 100 H 95 O2 % 6.0 ABG pCO2 26.6 L 30.4 L ABG pO2 504 H* 81 Nayana Test N/A Positive O2 Delivery Device Cannula Room Air Vent Mode Not entered Not entered Crit Call To/Read Back Yes Blood Gas Notified Whom Dr Marques Blood Gas Notified Time 21:09:37 Imaging Radiology Impression Chest X-Ray 11/18/24 20:50 IMPRESSION: No acute cardiopulmonary disease. Reading Location: [facility] Chest X-Ray 11/18/24 22:34 IMPRESSION: Left subclavian central venous catheter with tip at the lower SVC. Unchanged lung aeration. No pneumothorax or sizable pleural effusion. Reading Location: [facility] Chest CTA 11/18/24 22:41 IMPRESSION: No CT evidence of a pulmonary embolism. Mild chronic fibroemphysematous pulmonary changes, as described above. Mediastinal lymphadenopathy. Soft tissue thickening in the bilateral hilar regions may represent hilar lymphadenopathy or peribronchial infiltrates. Please correlate clinically for bronchitis. Moderate thoracic spondylosis with mild dextro convex scoliosis. Reading Location: [facility] Abdomen/Pelvis CT 11/19/24 00:03 IMPRESSION: 1. Abrupt narrowing of the proximal sigmoid colon with a short segment of wall thickening. This could represent focal colitis or a mucosal mass lesion. 2. Mild wall thickening of the duodenum with mild adjacent fat stranding, concerning for duodenitis. 3. Mild dilatation of the large and small bowel proximal to the focal narrowingin the proximal sigmoid colon, which could represent a low-grade partial small bowel obstruction. 4. Large amount of stool within the distal sigmoid colon and rectum. 5. Small hiatal hernia. 6. Moderate to severe thoracolumbar spondylosis with mild lumbar scoliosis. Reading Location: [facility] Echocardiogram 11/19/24 02:04 Interpretation Summary Technically difficult study with suboptimal images. Mild concentric left ventricular hypertrophy. The left ventricular ejection fraction is 65 %. Stage 1 diastolic dysfunction. Ordering Physician: Romeo Khan Referring Physician: LULU SWANSON Performed By: Agnieszka Brenner RCS Chest CT 11/19/24 03:46 IMPRESSION: Coronary artery calcification (CAC) is is present Acute soft tissue hematoma is noted underlying the right pectoralis muscle in the interim measuring3.9 x 8.4 x 9.1 cm in its largest anteroposterior, transverse and craniocaudal dimensions respectively. Secondary mild displacement and edema of the right pectoralis muscle. Mild surrounding soft tissue edema. Unchanged mild bilateral basilar pleural thickening/effusions. Unchanged minimal bilateral basilar atelectatic pulmonary changes. Unchanged emphysema/chronic interstitial thickening. Unchanged mildly enlarged mediastinal lymph nodes with the largest measuring 1.2cm. Chronic deformity of the axillary portion of the right 6th rib, unchanged. Reading Location[facility] Charges/Coding Visit Charges Inpatient E&M: 69989 Init Hosp L1 11/19/24 1640 Cosigner Signature (if applicable): 11/22/24 1241 CC: CB Swanson~ Signed [facility]10-13-2025 Progress note Author Lisa ePlaez [facility] Note Date/Time November 22, 2024 1 0:41am [facility] Medical Records Department [address] [place] [address] Progress Note - Surgery 11/22/24827 MR#: [id number] Acct: [id number] Name: DAVID ALDRICH Rep #:[id number] : 1960 64 From: Lisa BURGOS PA-C PCP: CB Landaverde Status:ADM I N Location: [place] [address] Subjective Subjective Patient evaluated resting comfortably in bed. She denies any abdominal pain, nausea or vomiting. She notes passing flatus. She had bowel movements yesterday.No bowel movements today yet. Objective Data Objective Data Vital Signs: Vital Signs Temp Pulse Resp BP Pulse Ox O2 Del Method O2 Flow Rate 98.8 F 99 16 124/70 H 94 Nasal Cannula 3 11/22/24 03:10 11/22/24 03:10 11/22/24 03:10 11/22/24 03:10 11/22/24 03:10 11/22/24 07:44 11/22/24 03:10 FiO2 28 11/18/24 21:15 Oxygen Flow Rate (L/min) 3 Oxygen Delivery Method Nasal Cannula Weight: 165 lb 9.074 oz Body Mass Index (BMI) 31.2 Intake & Output: Intake and Output for Last 24 Hours 11/20/24 11/21/24 11/22/24 23:59 23:59 23:59 Intake Total 537.40 / 537.40 526.75 / 586.75 110 / 110 Output Total 1700 / 2200 1100 / 1100 0 / 0 Balance -1162.60 / -1662.60 -573.25 / -513.25 110 / 110 Lab / Micro Data 11/22/24 04:50 11/22/24 04:50 Labs: Laboratory Results - last 24 hr 11/21/24 11:18: POC Glucose 154 H 11/21/24 17:18: POC Glucose 133 H 11/21/24 21:12: POC Glucose 114 H 11/22/24 04:50: WBC 12.7 H, RBC 3.03 L, Hgb 9.6 L, Hct 26.8 L, MCV 88.4, MCH 31.7, MCHC 35.8, RDW Std Deviation 43.9, RDW Coeff of Panchito 13.5, Plt Count 191, MPV 10.2, Immature Gran % (Auto) 0.900, Neut % (Auto) 83.0 H, Lymph % (Auto) 7.9L, Sebastian % (Auto) 7.4, Eos % (Auto) 0.5, Baso % (Auto) 0.3, Absolute Neuts (auto)10.5 H, Absolute Lymphs (auto) 1.00, Nucleated RBC % 0, Differential Comment SCANNED, Sodium 134, Potassium 3.5, Chloride 104, Carbon Dioxide 20.0 L, Anion Gap 10, BUN 17, Creatinine 0.73, Estim Creat Clear Calc 73.12, Est GFR (MDRD) Non-Af 92, BUN/Creatinine Ratio 23.2 H, Glucose 125 H, Calcium 8.4 Micro: Microbiology 11/18/24 21:40 Blood Culture (Wb) - Anticubital Right Blood Culture - Preliminary No growth in 48 hours. 11/18/24 21:10 Blood Culture (Wb) - Anticubital Left Blood Culture - Preliminary No growth in 48 hours. 11/19/24 08:25 Nasal Secretion MRSA (PCR) - Final 11/19/24 04:03 Mucosa - Nasopharyngeal Respiratory Panel (PCR) - Final 11/18/24 21:04 Mucosa - Nose SARS-CoV-2, Influenza & RSV (PCR) - Final Physical Exam GI GI Narrative: Abdomen- soft, nontender. Assessment & Plan Assessment/Plan (1) Abnormal CT scan, colon: PLAN: I am following this patient in conjunction with Dr. Brown. He has independently evaluated this patient. Labs reviewed No further dark stools per patient Recommend outpatient colonoscopy with Dr. Brown or Dr. Lanza (previous c- scopewas by him) We will follow this patient as needed From surgical standpoint, patient is ready for D/C Charges/Coding Visit Charges Inpatient E&M: 06663 Subs Hosp L2 11/22/24 1041 <Electronically signed by Lisa BURGOS PA-C> Cosigner Signature (if applicable): CC: ~ Signed [facility] Work Phone: 1(194) 572-912210-13-2025 Progress note Author Romeo Mina [facility] Note Date/Time November 22, 2024 1 0:38am [facility] Medical Records Department [address] [place] [address] Progress Note - Hospitalist 11/22/2434 MR#: [id number] Acct: [id number] Name: DAVID ALDRICH Rep #:[id number] : 1960 64 From: Romeo Mina MD PCP: CB Landaverde Status:ADM I N Location: [place] [address] Reason for Visit Chief Complaint: SOB, Wheezing and Diaphoresis. Subjective Subjective Patient is a 63-year-old lady who presented with shortness of breath and assessment of acute hypoxic respiratory failure secondary to COPD with acute exacerbation made started on noninvasive ventilation admitted to the intensive care unit stabilized and later transferred to U Objective Data Objective Data Vital Signs: Vital Signs Temp Pulse Resp BP Pulse Ox O2 Del Method O2 Flow Rate 98.1 F 101 H 18 143/78 H 97 Nasal Cannula 3 11/22/24 09:06 11/22/24 09:06 11/22/24 09:06 11/22/24 09:06 11/22/24 09:06 11/22/24 09:06 11/22/24 09:06 FiO2 28 11/18/24 21:15 Oxygen Flow Rate (L/min) 3 Oxygen Delivery Method Nasal Cannula Weight: 75.1 kg Body Mass Index (BMI) 31.2 Intake & Output: Intake and Output for Last 24 Hours 11/20/24 11/21/24 11/22/24 23:59 23:59 23:59 Intake Total 537.40 / 537.40 526.75 / 586.75 160 / 160 Output Total 1700 / 2200 1100 / 1100 0 / 0 Balance -1162.60 / -1662.60 -573.25 / -513.25 160 / 160 Lab / Micro Data 11/22/24 04:50 11/22/24 04:50 Labs: Laboratory Results - last 24 hr 11/21/24 11:18: POC Glucose 154 H 11/21/24 17:18: POC Glucose 133 H 11/21/24 21:12: POC Glucose 114 H 11/22/24 04:50: WBC 12.7 H, RBC 3.03 L, Hgb 9.6 L, Hct 26.8 L, MCV 88.4, MCH 31.7, MCHC 35.8, RDW Std Deviation 43.9, RDW Coeff of Panchito 13.5, Plt Count 191, MPV 10.2, Immature Gran % (Auto) 0.900, Neut % (Auto) 83.0 H, Lymph % (Auto) 7.9L, Sebastian % (Auto) 7.4, Eos % (Auto) 0.5, Baso % (Auto) 0.3, Absolute Neuts (auto)10.5 H, Absolute Lymphs (auto) 1.00, Nucleated RBC % 0, Differential Comment SCANNED, Sodium 134, Potassium 3.5, Chloride 104, Carbon Dioxide 20.0 L, Anion Gap 10, BUN 17, Creatinine 0.73, Estim Creat Clear Calc 73.12, Est GFR (MDRD) Non-Af 92, BUN/Creatinine Ratio 23.2 H, Glucose 125 H, Calcium 8.4 Micro: Microbiology 11/18/24 21:40 Blood Culture (Wb) - Anticubital Right Blood Culture - Preliminary No growth in 48 hours. 11/18/24 21:10 Blood Culture (Wb) - Anticubital Left Blood Culture - Preliminary No growth in 48 hours. 11/19/24 08:25 Nasal Secretion MRSA (PCR) - Final 11/19/24 04:03 Mucosa - Nasopharyngeal Respiratory Panel (PCR) - Final 11/18/24 21:04 Mucosa - Nose SARS-CoV-2, Influenza & RSV (PCR) - Final Physical Exam Narrative GENERAL: cooperative HEENT: Atraumatic; normocephalic EYES; Anicteric, Normal Conjunctiva NECK; supple, normal thyroid, RESPIRATORY: Diminished to auscultation CARDIOVASCULAR: Regular S1 S2, GI: soft, normoactive bowel sounds, : No Renal angle tenderness; EXTREMITIES: No edema, no clubbing, MUSCULOSKELETAL: no muscle wasting NEURO: Awake; no lateralizing signs. SKIN: Extensive bruising left upper chest PSYCH; Flat affect Assessment & Plan Assessment/Plan (1) Hematoma of right chest wall: (2) Duodenitis: (3) Acute respiratory failure: QUALIFIERS: Respiratory failure complication: unspecified whether with hypoxia or hypercapnia Qualified Code(s): J96.00 - Acute respiratory failure, unspecified whether with hypoxia or hypercapnia (4) Bronchitis: (5) Hypothyroidism: QUALIFIERS: Hypothyroidism type: unspecified Qualified Code(s): E03.9 - Hypothyroidism, unspecified PLAN: Plan Patient is a 63-year-old lady who presented with shortness of breath and assessment of acute hypoxic respiratory failure secondary to COPD with acute exacerbation made started on noninvasive ventilation admitted to the intensive care unit stabilized and later transferred to PCU 1. Acute hypoxic respiratory failure ? Secondary to COPD with acute exacerbation. 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 Patient managed with broad-spectrum antibiotic therapy with Zosyn as well as Solu-Medrol. Patient was managed on noninvasive ventilation BiPAP which has since been weaned off 2. Hemorrhagic shock ? Patient did develop huge hematoma in the pectoralis muscle following insertionof subclavian CVC. Patient was managed in the ICU with IV fluid as well as Levophed which has since been weaned off 3. Left upper chest hematoma ? Appears stable 4. Anemia ? Secondary to acute blood loss monitoring H&H and transfuse if patient becomes symptomatic or hemoglobin falls below 7 5.Polycythemia ? Which was present on admission with hemoglobin of 18.9 this was thought to be secondary to chronic hypoxia from COPD 6. Acute kidney injury ? Patient creatinine on admission was 1.36. At 1.57 down to 0.73 as of today 7. Acute colitis ? CT demonstrated abrupt narrowing of the proximal sigmoid colon with a short segment of wall thickening. This could represent focal colitis or a mucosal mass lesion. Plans for patient to follow-up with primary care physician to be referred for outpatient colonoscopy 8. Duodenitis ? On PPI 9. Hiatal hernia with GERD symptoms ? Patient is on PPI 10. Subclinical hypothyroidism ? Patient started on levothyroxine 11. Diabetes mellitus type 2 ? Patient is on metformin held on admission placed on Accu-Cheks ACHS with sliding scale coverage 12. Schizoaffective disorder -On thiothixene twice daily, buspirone 3 times daily, bupropion twice daily plusimipramine nightly. Held on admission and resumed 13. Dyslipidemia ?Patient is on statin therapy, continued at home dose 14. Peripheral arterial disease ? With history of right CEA 15. Essential hypertension ? Patient is on lisinopril held on admission given hypotension as well as worsening kidney function 16. Degenerative joint disease ? CT demonstrated Moderate to severe thoracolumbar spondylosis with mild lumbar scoliosis with mild dextroconvex scoliosis 17. Physical deconditioning ? Requested for PT OT eval and social media campaign manager to assist with discharge planning 18. Tobacco dependence ? Counseled on cessation, offered nicotine patch for tobacco cravings 19. DVT prophylaxis Bilateral SCDs Time spent in the patient's overall evaluation,decision-making process, review of diagnostic data, adjustment of management, discussion with other providers, nursing nursing and ancillary staff involved in patient's care documentation, 40 Minutes Charges/Coding Visit Charges Inpatient E&M: 02322 Subs Hosp L2 11/22/24 1038 <Electronically signed by Romeo Mina MD> Cosigner Signature (if applicable): CC: ~ Signed [facility] Work Phone: 1(623) 708-360710-13-2025 Progress note [facility] Medical Records Department [address] [place] [address] Progress Note - Surgery 11/22/24 0828 MR#: [id number] Acct: [id number] Name: DAVID ALDRICH Rep #:[id number] : 1960 64 From: Lisa BURGOS PA-C PCP: CB Landaverde Status:ADM I N Location: [place] [address] Subjective Subjective Patient evaluated resting comfortably in bed. She denies any abdominal pain, nausea or vomiting. She notes passing flatus. She had bowel movements yesterday.No bowel movements today yet. Objective Data Objective Data Vital Signs: Vital Signs Temp Pulse Resp BP Pulse Ox O2 Del Method O2 Flow Rate 98.8 F 99 16 124/70 H 94 Nasal Cannula 3 11/22/24 03:10 11/22/24 03:10 11/22/24 03:10 11/22/24 03:10 11/22/24 03:10 11/22/24 07:44 11/22/24 03:10 FiO2 28 11/18/24 21:15 Oxygen Flow Rate (L/min) 3 Oxygen Delivery Method Nasal Cannula Weight: 165 lb 9.074 oz Body Mass Index (BMI) 31.2 Intake & Output: Intake and Output for Last 24 Hours 11/20/24 11/21/24 11/22/24 23:59 23:59 23:59 Intake Total 537.40 / 537.40 526.75 / 586.75 110 / 110 Output Total 1700 / 2200 1100 / 1100 0 / 0 Balance -1162.60 / -1662.60 -573.25 / -513.25 110 / 110 Lab / Micro Data 11/22/24 04:50 11/22/24 04:50 Labs: Laboratory Results - last 24 hr 11/21/24 11:18: POC Glucose 154 H 11/21/24 17:18: POC Glucose 133 H 11/21/24 21:12: POC Glucose 114 H 11/22/24 04:50: WBC 12.7 H, RBC 3.03 L, Hgb 9.6 L, Hct 26.8 L, MCV 88.4, MCH 31.7, MCHC 35.8, RDW Std Deviation 43.9, RDW Coeff of Panchito 13.5, Plt Count 191, MPV 10.2, Immature Gran % (Auto) 0.900, Neut % (Auto) 83.0 H, Lymph % (Auto) 7.9L, Sebastian % (Auto) 7.4, Eos % (Auto) 0.5, Baso % (Auto) 0.3, Absolute Neuts (auto)10.5 H, Absolute Lymphs (auto) 1.00, Nucleated RBC % 0, Differential Comment SCANNED, Sodium 134, Potassium 3.5, Chloride 104, Carbon Dioxide 20.0 L, Anion Gap 10, BUN 17, Creatinine 0.73, Estim Creat Clear Calc 73.12, Est GFR (MDRD) Non-Af 92, BUN/Creatinine Ratio 23.2 H, Glucose 125 H, Calcium 8.4 Micro: Microbiology 11/18/24 21:40 Blood Culture (Wb) - Anticubital Right Blood Culture - Preliminary No growth in 48 hours. 11/18/24 21:10 Blood Culture (Wb) - Anticubital Left Blood Culture - Preliminary No growth in 48 hours. 11/19/24 08:25 Nasal Secretion MRSA (PCR) - Final 11/19/24 04:03 Mucosa - Nasopharyngeal Respiratory Panel (PCR) - Final 11/18/24 21:04 Mucosa - Nose SARS-CoV-2, Influenza & RSV (PCR) - Final Physical Exam GI GI Narrative: Abdomen- soft, nontender. Assessment & Plan Assessment/Plan (1) Abnormal CT scan, colon: PLAN: I am following this patient in conjunction with Dr. Brown. He has independently evaluated this patient. Labs reviewed No further dark stools per patient Recommend outpatient colonoscopy with Dr. Brown or Dr. Lanza (previous c- scopewas by him) We will follow this patient as needed From surgical standpoint, patient is ready for D/C Charges/Coding Visit Charges Inpatient E&M: 32017 Subs Hosp L2 11/22/24 1041 Cosigner Signature (if applicable): CC: ~ Signed [facility]10-13-2025 Progress note [facility] Medical Records Department [address] [place] [address] Progress Note - Hospitalist 11/22/24 0934 MR#: [id number] Acct: [id number] Name: DAVID ALDRICH Rep #:[id number] : 1960 64 From: Romeo Mina MD PCP: CB Landaverde Status:ADM I N Location: [place] [address] Reason for Visit Chief Complaint: SOB, Wheezing and Diaphoresis. Subjective Subjective Patient is a 63-year-old lady who presented with shortness of breath and assessment of acute hypoxic respiratory failure secondary to COPD with acute exacerbation made started on noninvasive ventilation admitted to the intensive care unit stabilized and later transferred to [facility] Objective Data Objective Data Vital Signs: Vital Signs Temp Pulse Resp BP Pulse Ox O2 Del Method O2 Flow Rate 98.1 F 101 H 18 143/78 H 97 Nasal Cannula 3 11/22/24 09:06 11/22/24 09:06 11/22/24 09:06 11/22/24 09:06 11/22/24 09:06 11/22/24 09:06 11/22/24 09:06 FiO2 28 11/18/24 21:15 Oxygen Flow Rate (L/min) 3 Oxygen Delivery Method Nasal Cannula Weight: 75.1 kg Body Mass Index (BMI) 31.2 Intake & Output: Intake and Output for Last 24 Hours 11/20/24 11/21/24 11/22/24 23:59 23:59 23:59 Intake Total 537.40 / 537.40 526.75 / 586.75 160 / 160 Output Total 1700 / 2200 1100 / 1100 0 / 0 Balance -1162.60 / -1662.60 -573.25 / -513.25 160 / 160 Lab / Micro Data 11/22/24 04:50 11/22/24 04:50 Labs: Laboratory Results - last 24 hr 11/21/24 11:18: POC Glucose 154 H 11/21/24 17:18: POC Glucose 133 H 11/21/24 21:12: POC Glucose 114 H 11/22/24 04:50: WBC 12.7 H, RBC 3.03 L, Hgb 9.6 L, Hct 26.8 L, MCV 88.4, MCH 31.7, MCHC 35.8, RDW Std Deviation 43.9, RDW Coeff of Panchito 13.5, Plt Count 191, MPV 10.2, Immature Gran % (Auto) 0.900, Neut % (Auto) 83.0 H, Lymph % (Auto) 7.9L, Sebastian % (Auto) 7.4, Eos % (Auto) 0.5, Baso % (Auto) 0.3, Absolute Neuts (auto)10.5 H, Absolute Lymphs (auto) 1.00, Nucleated RBC % 0, Differential Comment SCANNED, Sodium 134, Potassium 3.5, Chloride 104, Carbon Dioxide 20.0 L, Anion Gap 10, BUN 17, Creatinine 0.73, Estim Creat Clear Calc 73.12, Est GFR (MDRD) Non-Af 92, BUN/Creatinine Ratio 23.2 H, Glucose 125 H, Calcium 8.4 Micro: Microbiology 11/18/24 21:40 Blood Culture (Wb) - Anticubital Right Blood Culture - Preliminary No growth in 48 hours. 11/18/24 21:10 Blood Culture (Wb) - Anticubital Left Blood Culture - Preliminary No growth in 48 hours. 11/19/24 08:25 Nasal Secretion MRSA (PCR) - Final 11/19/24 04:03 Mucosa - Nasopharyngeal Respiratory Panel (PCR) - Final 11/18/24 21:04 Mucosa - Nose SARS-CoV-2, Influenza & RSV (PCR) - Final Physical Exam Narrative GENERAL: cooperative HEENT: Atraumatic; normocephalic EYES; Anicteric, Normal Conjunctiva NECK; supple, normal thyroid, RESPIRATORY: Diminished to auscultation CARDIOVASCULAR: Regular S1 S2, GI: soft, normoactive bowel sounds, : No Renal angle tenderness; EXTREMITIES: No edema, no clubbing, MUSCULOSKELETAL: no muscle wasting NEURO: Awake; no lateralizing signs. SKIN: Extensive bruising left upper chest PSYCH; Flat affect Assessment & Plan Assessment/Plan (1) Hematoma of right chest wall: (2) Duodenitis: (3) Acute respiratory failure: QUALIFIERS: Respiratory failure complication: unspecified whether with hypoxia or hypercapnia Qualified Code(s): J96.00 - Acute respiratory failure, unspecified whether with hypoxia or hypercapnia (4) Bronchitis: (5) Hypothyroidism: QUALIFIERS: Hypothyroidism type: unspecified Qualified Code(s): E03.9 - Hypothyroidism, unspecified PLAN: Plan Patient is a 63-year-old lady who presented with shortness of breath and assessment of acute hypoxic respiratory failure secondary to COPD with acute exacerbation made started on noninvasive ventilation admitted to the intensive care unit stabilized and later transferred to PCU 1. Acute hypoxic respiratory failure ? Secondary to COPD with acute exacerbation. 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 Patient managed with broad-spectrum antibiotic therapy with Zosyn as well as Solu-Medrol. Patient was managed on noninvasive ventilation BiPAP which has since been weaned off 2. Hemorrhagic shock ? Patient did develop huge hematoma in the pectoralis muscle following insertionof subclavian CVC. Patient was managed in the ICU with IV fluid as well as Levophed which has since been weaned off 3. Left upper chest hematoma ? Appears stable 4. Anemia ? Secondary to acute blood loss monitoring H&H and transfuse if patient becomes symptomatic or hemoglobin falls below 7 5.Polycythemia ? Which was present on admission with hemoglobin of 18.9 this was thought to be secondary to chronic hypoxia from COPD 6. Acute kidney injury ? Patient creatinine on admission was 1.36. At 1.57 down to 0.73 as of today 7. Acute colitis ? CT demonstrated abrupt narrowing of the proximal sigmoid colon with a short segment of wall thickening. This could represent focal colitis or a mucosal mass lesion. Plans for patient to follow-up with primary care physician to be referred for outpatient colonoscopy 8. Duodenitis ? On PPI 9. Hiatal hernia with GERD symptoms ? Patient is on PPI 10. Subclinical hypothyroidism ? Patient started on levothyroxine 11. Diabetes mellitus type 2 ? Patient is on metformin held on admission placed on Accu-Cheks ACHS with sliding scale coverage 12. Schizoaffective disorder -On thiothixene twice daily, buspirone 3 times daily, bupropion twice daily plusimipramine nightly.Held on admission and resumed 13. Dyslipidemia ?Patient is on statin therapy, continued at home dose 14. Peripheral arterial disease ? With history of right CEA 15. Essential hypertension ? Patient is on lisinopril held on admission given hypotension as well as worsening kidney function 16. Degenerative joint disease ? CT demonstrated Moderate to severe thoracolumbar spondylosis with mild lumbar scoliosis with milddextroconvex scoliosis 17. Physical deconditioning ? Requested for PT OT eval and social media campaign manager to assist with discharge planning 18. Tobacco dependence ? Counseled on cessation, offered nicotine patch for tobacco cravings 19. DVT prophylaxis Bilateral SCDs Time spent in the patient's overall evaluation,decision-making process, review of diagnostic data, adjustment of management, discussion with other providers, nursing nursing and ancillary staff involved in patient's care documentation, 40 Minutes Charges/Coding Visit Charges Inpatient E&M: 96157 Subs Hosp L2 11/22/24 1038 Cosigner Signature (if applicable): CC: ~ Signed [facility]10-12-2025 Progress note Author Ej Brown [facility] Note Date/Time November 21, 2024 1 :03pm [facility] Medical Records Department [address] [place] [address] Progress Note - Surgery 11/21/24 0833 MR#: [id number] Acct: [id number] Name: DAVID ALDRICH Rep #:[id number] : 1960 64 From: Ej Munguia PCP: Lulu Swanson, PROCESS OPERATOR-C Status:ADM I N Location: [place] [address] Subjective Subjective Patient seen and examined during AM rounds. She is found sitting out of bed in the chair. She states she is feeling somewhat better today. She denies any difficulty with tolerating diet. She confirms bedside nursing's report that shehad another loose bowel movement today. She denies any abdominal discomfort except for when coughing. Objective Data Objective Data Vital Signs: Vital Signs Temp Pulse Resp BP Pulse Ox O2 Del Method O2 Flow Rate 98.9 F 92 19 H 160/77 H 94 Nasal Cannula 2 11/21/24 08:00 11/21/24 08:00 11/21/24 08:00 11/21/24 08:00 11/21/24 08:00 11/21/24 08:00 11/21/24 08:00 FiO2 28 11/18/24 21:15 Oxygen Flow Rate (L/min) 2 Oxygen Delivery Method Nasal Cannula Weight: 172 lb 9.951 oz Body Mass Index (BMI) 32.5 Intake & Output: Intake and Output for Last 24 Hours 11/19/24 11/20/24 11/21/24 23:59 23:59 23:59 Intake Total 3168.67 / 3174.27 537.40 / 537.40 414.25 / 414.25 Output Total 2024 / 2024 1700 / 2200 900 / 900 Balance 1143.67 / 1149.27 -1162.60 / -1662.60 -485.75 / -485.75 Lab / Micro Data 11/21/24 03:35 11/21/24 03:35 Labs: Laboratory Results - last 24 hr 11/20/24 12:01: POC Glucose 123 H 11/20/24 16:51: POC Glucose 112 H 11/20/24 23:35: POC Glucose 127 H 11/21/24 03:35: WBC 11.3 H, RBC 2.71 L, Hgb 8.7 L, Hct 24.1 L, MCV 88.9, MCH 32.1 H, MCHC 36.1 H, RDW Std Deviation 44.9 H, RDW Coeff of Panchito 13.7, Plt Count 151, MPV 9.9, Immature Gran % (Auto) 0.200, Neut % (Auto) 89.5 H, Lymph % (Auto)3.9 L, Sebastian % (Auto) 6.2, Eos % (Auto) 0.0, Baso % (Auto) 0.2, Absolute Neuts (auto) 10.1 H, Absolute Lymphs (auto) 0.44 L, Nucleated RBC % 0, Differential Comment SCANNED, Sodium 133, Potassium 3.6, Chloride 105, Carbon Dioxide 17.7 L,Anion Gap 11, BUN 17, Creatinine 0.82, Estim Creat Clear Calc 65.18, Est GFR (MDRD) Non-Af 80, BUN/Creatinine Ratio 21.2 H, Glucose 137 H, Calcium 7.9 11/21/24 05:33: POC Glucose 116 H Micro: Microbiology 11/18/24 21:40 Blood Culture (Wb) - Anticubital Right Blood Culture - Preliminary No growth in 48 hours. 11/18/24 21:10 Blood Culture (Wb) - Anticubital Left Blood Culture - Preliminary No growth in 48 hours. 11/19/24 08:25 Nasal Secretion MRSA (PCR) - Final 11/19/24 04:03 Mucosa - Nasopharyngeal Respiratory Panel (PCR) - Final 11/18/24 21:04 Mucosa - Nose SARS-CoV-2, Influenza & RSV (PCR) - Final Physical Exam Const oriented x3 and no apparent distress Resp normal respiratory effort GI GI Narrative: Mildly distended, soft, nontender palpation x 4 quadrants Assessment & Plan Assessment/Plan (1) Abnormal CT scan, colon: PLAN: Patient is 64-year-old female admitted to the ICU 2 days ago with concern for sepsis after a presentation with chest pain and significant shortness of breath. Additionally, CT imaging was completed showing concern for possible small bowel obstruction as well as a "abrupt" transition of the sigmoid colon concerning for possible "focal colitis". Repeat CT imaging with enteral contrast (both p.o. and NE) yesterday showed no evidence of bowel obstruction and no focal narrowing of the colon. However, didconfirm generalized appearance of colitis. Based on the distribution of the wall thickening and patient's presentation I am suspicious for an ischemic etiology. Patient's blood pressure has remained normal to slightly high. She reports tolerance of her diet. She is experiencing ongoing bowel activity but nursing reported that the last stool was somewhat darker. She is not experiencing any abdominal discomfort and her abdominal exam is benign. Given the finding of a declining hemoglobin and reports of potentially darker stool I have requested a Hemoccult study. At this point find no indication to pursue inpatient colonoscopy, but we will continue to watch closely as this may change depending on the trend of her hemoglobin and the result of this testing. Would favor engaging gastroenterology if this does appear to be the source of patient's anemia (I was not consult directly for management of patient's chest wall hematoma but I did examine this today and this appears to be stable/not expanding). Ej Brown MD General Surgery Endocrine Surgery Pager: [facility] [address] [place] [address], Outpatient [place], [address] [place] [address] Office: [phone] Charges/Coding Visit Charges Inpatient E&M: 31880 Subs Hosp L2 11/21/24 1303 <Electronically signed by Ej Brown MD> Cosigner Signature (if applicable): CC: ~ Signed [facility] Work Phone: [phone]) 595-608510-12-2025 Progress note [facility] Medical Records Department [address] [place] [id number] Progress Note - Surgery 11/21/24 0833 MR#: [id number] Acct: [id number] Name: DAVID ALDRICH Rep #:[id number] : 1960 64 From: Ej Munguia PCP: CB Landaverde Status:ADM I N Location: [place] [address] Subjective Subjective Patient seen and examined during AM rounds. She is found sitting out of bed in the chair. She states she is feeling somewhat better today. She denies any difficulty with tolerating diet. [facility] that shehad another loose bowel movement today. She denies any abdominal discomfort except for when coughing. Objective Data Objective Data Vital Signs: Vital Signs Temp Pulse Resp BP Pulse Ox O2 Del Method O2 Flow Rate 98.9 F 92 19 H 160/77 H 94 Nasal Cannula 2 11/21/24 08:00 11/21/24 08:00 11/21/24 08:00 11/21/24 08:00 11/21/24 08:00 11/21/24 08:00 11/21/24 08:00 FiO2 28 11/18/24 21:15 Oxygen Flow Rate (L/min) 2 Oxygen Delivery Method Nasal Cannula Weight: 172 lb 9.951 oz Body Mass Index (BMI) 32.5 Intake & Output: Intake and Output for Last 24 Hours 11/19/24 11/20/24 11/21/24 23:59 23:59 23:59 Intake Total 3168.67 / 3174.27 537.40 / 537.40 414.25 / 414.25 Output Total 2024 / 2024 1700 / 2200 900 / 900 Balance 1143.67 / 1149.27 -1162.60 / -1662.60 -485.75 / -485.75 Lab / Micro Data 11/21/24 03:35 11/21/24 03:35 Labs: Laboratory Results - last 24 hr 11/20/24 12:01: POC Glucose 123 H 11/20/24 16:51: POC Glucose 112 H 11/20/24 23:35: POC Glucose 127 H 11/21/24 03:35: WBC 11.3 H, RBC 2.71 L, Hgb 8.7 L, Hct 24.1 L, MCV 88.9, MCH 32.1 H, MCHC 36.1 H, RDW Std Deviation 44.9 H, RDW Coeff of Panchito 13.7, Plt Count 151, MPV 9.9, Immature Gran % (Auto) 0.200, Neut % (Auto) 89.5 H, Lymph % (Auto)3.9 L, Sebastian % (Auto) 6.2, Eos % (Auto) 0.0, Baso % (Auto) 0.2,Absolute Neuts (auto) 10.1 H, Absolute Lymphs (auto) 0.44 L, Nucleated RBC % 0, Differential Comment SCANNED, Sodium 133, Potassium 3.6, Chloride 105, Carbon Dioxide 17.7 L,Anion Gap 11, BUN 17, Creatinine 0.82, Estim Creat Clear Calc 65.18, Est GFR (MDRD) Non-Af 80, BUN/Creatinine Ratio 21.2 H, Glucose 137 H, Calcium 7.9 11/21/24 05:33: POC Glucose 116 H Micro: Microbiology 11/18/24 21:40 Blood Culture (Wb) - Anticubital Right Blood Culture - Preliminary No growth in 48 hours. 11/18/24 21:10 Blood Culture (Wb) - Anticubital Left Blood Culture - Preliminary No growth in 48 hours. 11/19/24 08:25 Nasal Secretion MRSA (PCR) - Final 11/19/24 04:03 Mucosa - Nasopharyngeal Respiratory Panel (PCR) - Final 11/18/24 21:04 Mucosa - Nose SARS-CoV-2, Influenza & RSV (PCR) - Final Physical Exam Const oriented x3 and no apparent distress Resp normal respiratory effort GI GI Narrative: Mildly distended, soft, nontender palpation x 4 quadrants Assessment & Plan Assessment/Plan (1) Abnormal CT scan, colon: PLAN: Patient is 64-year-old female admitted to the ICU 2 days ago with concern for sepsis after a presentation with chest pain and significant shortness of breath. Additionally, CT imaging was completed showing concern for possible small bowel obstruction as well as a "abrupt" transition of the sigmoid colon concerning for possible "focal colitis". Repeat CT imaging with enteral contrast (both p.o. and NE) yesterday showed no evidence of bowel obstruction and no focal narrowing of the colon. However, didconfirm generalized appearance of colitis. Based on the distribution of the wall thickening and patient's presentation I am suspicious for anischemic etiology. Patient's blood pressure has remained normal to slightly high. She reports tolerance of her diet. She is experiencing ongoing bowel activity but nursing reported that the last stool was somewhat darker. She is not experiencing any abdominal discomfort and her abdominal exam is benign. Given the finding of a declining hemoglobin and reports of potentially darker stool I have requested a Hemoccult study. At this point find no indication to pursue inpatient colonoscopy, but we will continue to watch closely as this may change depending on the trend of her hemoglobin and the result of this testing. Would favor engaging gastroenterology if this does appear to be the source of patient's anemia (Iwas not consult directly for management of patient's chest wall hematoma but I did examine this today and this appears to be stable/not expanding). Ej Brown MD General Surgery Endocrine Surgery Pager: [facility] [address] [place] [address], [facility], [address] [place] [address] Office: [phone] Charges/Coding Visit Charges Inpatient E&M: 25459 Subs Hosp L2 11/21/24 1303 Cosigner Signature (if applicable): CC: ~ Signed [facility]10-12-2025 Progress note Author Kenny Pompa [facility] Note Date/Time November 21, 2024 8 :52am [facility] Medical Records Department [address] [place] [address] Progress Note - Hospitalist 11/21/24 0839 MR#: [id number] Acct: [id number] Name: DAVID ALDRICH Rep #:[id number] : 1960 64 From: Kenny Munguia PCP: Lulu Swanson NP-Cal Status:ADM I N Location: ICU CVICU 3-1 Reason for Visit Chief Complaint: SOB, Wheezing and Diaphoresis. Objective Data Objective Data Vital Signs: Vital Signs Temp Pulse Resp BP Pulse Ox O2 Del Method O2 Flow Rate 98.9 F 92 19 H 160/77 H 94 Nasal Cannula 2 11/21/24 08:00 11/21/24 08:00 11/21/24 08:00 11/21/24 08:00 11/21/24 08:00 11/21/24 08:00 11/21/24 08:00 FiO2 28 11/18/24 21:15 Oxygen Flow Rate (L/min) 2 Oxygen Delivery Method Nasal Cannula Weight: 172 lb 9.951 oz Body Mass Index (BMI) 32.5 Intake & Output: Intake and Output for Last 24 Hours 11/19/24 11/20/24 11/21/24 23:59 23:59 23:59 Intake Total 3168.67 / 3174.27 537.40 / 537.40 414.25 / 414.25 Output Total 2024 1700 / 2200 900 / 900 Balance 1143.67 / 1149.27 -1162.60 / -1662.60 -485.75 / -485.75 Lab / Micro Data 11/21/24 03:35 11/21/24 03:35 Labs: Laboratory Results - last 24 hr 11/20/24 12:01: POC Glucose 123 H 11/20/24 16:51: POC Glucose 112 H 11/20/24 23:35: POC Glucose 127 H 11/21/24 03:35: WBC 11.3 H, RBC 2.71 L, Hgb 8.7 L, Hct 24.1 L, MCV 88.9, MCH 32.1 H, MCHC 36.1 H, RDW Std Deviation 44.9 H, RDW Coeff of Panchito 13.7, Plt Count 151, MPV 9.9, Immature Gran % (Auto) 0.200, Neut % (Auto) 89.5 H, Lymph % (Auto)3.9 L, Sebastian % (Auto) 6.2, Eos % (Auto) 0.0, Baso % (Auto) 0.2, Absolute Neuts (auto) 10.1 H, Absolute Lymphs (auto) 0.44 L, Nucleated RBC % 0, Differential Comment SCANNED, Sodium 133, Potassium 3.6, Chloride 105, Carbon Dioxide 17.7 L,Anion Gap 11, BUN 17, Creatinine 0.82, Estim Creat Clear Calc 65.18, Est GFR (MDRD) Non-Af 80, BUN/Creatinine Ratio 21.2 H, Glucose 137 H, Calcium 7.9 11/21/24 05:33: POC Glucose 116 H Micro: Microbiology 11/18/24 21:40 Blood Culture (Wb) - Anticubital Right Blood Culture - Preliminary No growth in 48 hours. 11/18/24 21:10 Blood Culture (Wb) - Anticubital Left Blood Culture - Preliminary No growth in 48 hours. 11/19/24 08:25 Nasal Secretion MRSA (PCR) - Final 11/19/24 04:03 Mucosa - Nasopharyngeal Respiratory Panel (PCR) - Final 11/18/24 21:04 Mucosa - Nose SARS-CoV-2, Influenza & RSV (PCR) - Final Physical Exam Narrative Seen and examined Patient off Levophed drip for more than 24 hours. Right chest wall hematoma minimally to no tenderness. Right shoulder/lateral axillary region mild bruise. Left subclavian CVC catheter. No chest pain Tolerated transitional diet for Earlier, patient admitted with chief complaint of chest pain and shortness of breath and nausea. Chest pain was localized in midsternal, sharp and states that she felt like she could not breathe. Patient denies abdominal pain. Bowel obstruction was ruled out. She had a large formed brown-colored stool. Physical exam General: Alert, Oriented x3, Cooperative HEENT: Atraumatic, PERRLA, EOMI, Normocephalic. Oral: No Gingival or Mucosal Lesions/ Ulcerations Neck: Supple, No JVD, Negative Carotid Bruits Chest wall/Lungs: Bruise around right subclavian region with needle peres with subcutaneous bruise. Air entry diminished in bilateral lung bases. No crepitation/rhonchi Cardiovascular: Sinus rhythm, Normal S1,S2, No M/G/R Abdomen: Bowel Sounds sluggish, Soft, Non Tender, Non-Distended : Aguiar catheter dark urine. No renal angle tenderness. No suprapubic tenderness. Extremities: No edema, Capillary Refill Less than 3 Seconds Skin: No rashes, No breakdown Musculoskeletal: No Tenderness to Palpation of Joints or Extremities Neurological: Cranial nerves II-XII grossly intact, DTR 2+/4. No acute focal neurological deficit. Psych/Mental Status: Normal Affect, Appropriate. Assessment & Plan Assessment/Plan (1) COPD exacerbation: (2) Bronchitis: (3) Acute respiratory failure: QUALIFIERS: Respiratory failure complication: unspecified whether with hypoxia or hypercapnia Qualified Code(s): J96.00 - Acute respiratory failure, unspecified whether with hypoxia or hypercapnia (4) Shock circulatory: (5) Adrenal insufficiency: (6) Severe hypotension: (7) Hypothermia: QUALIFIERS: Encounter type: initial encounter Qualified Code(s): T68.XXXA - Hypothermia, initial encounter (8) Acidosis, lactic: (9) Acquired polycythemia vera: (10) Hypothyroidism: QUALIFIERS: Hypothyroidism type: unspecified Qualified Code(s): E03.9 - Hypothyroidism, unspecified (11) Obesity (BMI 30.0-34.9): (12) NAFLD (nonalcoholic fatty liver disease): (13) Focal active colitis: (14) Duodenitis: (15) Elevated d-dimer: PLAN: Plan This is a 63-year-old female brought by EMS for shortness of breath complaint ofchest pain and nausea and diaphoretic diaphoretic. As per ED physician, she denied chest patient. Complain of nonproductive cough with no history of VTE. Denies leg pain swelling discoloration 1. Acute hypoxic respiratory failure due to acute exacerbation of COPD requiring BiPAP: Chest CTA does not show evidence of PE but chronic fibroemphysematous pulmonary changes with mediastinal lymphadenopathy and soft tissue thickening in bilateral hilar regions, may represent lymphadenopathy or peribronchial infiltrates Empirically started on IV Zosyn. Patient is being managed on scheduled bronchodilator, IV Solu-Medrol, Mucinex, incentive spirometry and Pep.. 11/21: Patient on 2 L of oxygen. IV Solu-Medrol changed to prednisone from tomorrow. Continue rest of the treatment. Incentive spirometry encouraged. 2. Undifferentiated Shock most likely hemorrhagic/distributive shock, less septic shock with Severe Hypotension of 72/25 mmHg, Severe Hypothermia of 94.4 ?F, Lactic Acidosis of 3 mmol/L and Leukocytosis of 13.9 K all present on admission: Patient on Levophed drip, to keep MAP more than 65 mmHg through left subclavian CVC catheter inserted in ED. Patient was on RAD hugger to raise core temperature. Most recent temperature 98.1 ?F. Lactic acid still elevated 3.0, 2.1 and 2.7. Echo is ordered. CT shows large right pectoralis muscle hematoma 3.9 x 8.4 x 9.1 cm with secondary mild displacement and edema of the right pectoralis muscle. Mild surrounding soft tissue edema. CT does not show significant consolidation but minimal bilateral basilar atelectatic changes, unchanged emphysema/chronic interstitial thickening and unchanged mildly enlarged mediastinal lymph nodes largest measuring 1.2 cm. Discussed with retirement benefits specialist requesting consult as patient is on IV Levophed drip for shock 11/21: Shock has resolved. Patient off Levophed drip for more than 24 hours. Downgrade to PCU patient had 3 days of IV Zosyn and Zithromax. Respiratory panel, MRSA PCR negative. Blood culture negative for more than 48 hours. Continue IV Zosyn to cover peribronchial/interstitial pneumonia and possible duodenitis/colitis. 3. Polycythemia with hemoglobin of 18.9 g/dL present on admission (suspected graciela due to combination of chronic tobacco abuse and DENNIS) compounding #1 & #2 - Screen for SHONDA-2 mutation. Unclear whether it is true because previous hemoglobin was 13.8/40.5 in July 2020 but it was 18.9/55.1 on 11/18. Most recent 12.6/37.1% today. Patient has leukocytosis 21.4 increased from 13.9 and platelet count normal. 11/21: Acute anemia due to blood loss from right pectoralis muscle hematoma: H&H8.7/24.1%. Platelet count 151K. No antithrombotic or antiplatelet agent. TAM, present on admission: Probably, from shock, prerenal: Patient baseline creatinine around 0.8-1.0. Came with 1.36 point of 1.57 now back to baseline 0.82. TAM resolved 4. Subclinical hypothyroidism: Elevated TSH of 16.9, free T40.9, low normal Change IV levothyroxine to oral. 5. Obesity (class I); with BMI of 31.2 this admission plus NAFLD adding to the burden of disease outlined from #1 - #4 - Weight loss will be recommended. Thiscomplicates her case and may hamper recovery. 6. DM-2; of unknown control on metformin daily - Keep NPO for now. Hold metformin until further notice with elevated lactate. FSBS q. 6 hours plus lowest- intensity SSI. Check HgbA1c to objectively evaluate quality of diabetic control. 7. Essential hypertension; on lisinopril - Hold scheduled antihypertensives in light of #2. 8. Hyperlipidemia; on atorvastatin - Resume statin when patient can tolerate oral intake. 9. History of bilateral carotid artery stenosis; s/p Right CEA at [facility] (2012) - Noted. 10. PAD - Stable. Lower extremity Doppler ordered as D-dimer was critically high. 12. Schizophrenia and Depression; on thiothixene twice daily, buspirone 3 timesdaily, bupropion twice daily plus imipramine nightly - Hold oral agents at this time. 13. Chronic insomnia; on zolpidem nightly - Noted. 16. GERD; on pantoprazole - Resume PPI IV as outlined in #1. 17. OA; on ibuprofen: Discontinue ketorolac. Hold NSAIDs because of hematoma 18. DVT prophylaxis - hold Lovenox. Pharmacological prophylaxis contraindicated in view of large hematoma and right pectoralis muscle Clinical Impression(s) from Imaging Studies Chest X-Ray 11/18/24 20:50 IMPRESSION: No acute cardiopulmonary disease. Reading Location: [facility] Chest X-Ray 11/18/24 22:34 IMPRESSION: Left subclavian central venous catheter with tip at the lower SVC. Unchanged lung aeration. No pneumothorax or sizable pleural effusion. Reading Location: [facility] Chest CTA 11/18/24 22:41 IMPRESSION: No CT evidence of a pulmonary embolism. Mild chronic fibroemphysematous pulmonary changes, as described above. Mediastinal lymphadenopathy. Soft tissue thickening in the bilateral hilar regions may represent hilar lymphadenopathy or peribronchial infiltrates. Please correlate clinically for bronchitis. Moderate thoracic spondylosis with mild dextro convex scoliosis. Reading Location: [facility] Abdomen/Pelvis CT 11/19/24 00:03 IMPRESSION: 1. Abrupt narrowing of the proximal sigmoid colon with a short segment of wall thickening. This could represent focal colitis or a mucosal mass lesion. 2. Mild wall thickening of the duodenum with mild adjacent fat stranding, concerning for duodenitis. 3. Mild dilatation of the large and small bowel proximal to the focal narrowingin the proximal sigmoid colon, which could represent a low-grade partial small bowel obstruction. 4. Large amount of stool within the distal sigmoid colon and rectum. 5. Small hiatal hernia. 6. Moderate to severe thoracolumbar spondylosis with mild lumbar scoliosis. Reading Location: [facility] Echocardiogram 11/19/24 02:04 Interpretation Summary Technically difficult study with suboptimal images. Mild concentric left ventricular hypertrophy. The left ventricular ejection fraction is 65 %. Stage 1 diastolic dysfunction. Ordering Physician: Romeo Khan Referring Physician: LULU SWANSON Performed By: Agnieszka Brenner RCS Chest CT 11/19/24 03:46 IMPRESSION: Coronary artery calcification (CAC) is is present Acute soft tissue hematoma is noted underlying the right pectoralis muscle in the interim measuring 3.9 x 8.4 x 9.1 cm in its largest anteroposterior, transverse and craniocaudal dimensions respectively. Secondary mild displacement and edema of the right pectoralis muscle. Mild surrounding soft tissue edema. Unchanged mild bilateral basilar pleural thickening/effusions. Unchanged minimal bilateral basilar atelectatic pulmonary changes. Unchanged emphysema/chronic interstitial thickening. Unchanged mildly enlarged mediastinal lymph nodes with the largest measuring 1.2cm. Chronic deformity of the axillary portion of the right 6th rib, unchanged. Reading Location: [facility] Charges/Coding Visit Charges Inpatient E&M: 07634 Subs Hosp L3 11/21/2452 <Electronically signed by Kenny Pompa MD> Cosigner Signature (if applicable): CC: ~ Signed [facility] Work Phone: 1(802) 959-223910-12-2025 Progress note [facility] Medical Records Department [address] [place] [address] Progress Note - Hospitalist 11/21/2439 MR#: [id number] Acct: [id number] Name: DAVID ALDRICH Rep #:[id number] : 1960 64 From: Kenny Munguia PCP: Lulu Swanson NP-C Status:ADM I N Location: ICU CVICU 3-1 Reason for Visit Chief Complaint: SOB, Wheezing and Diaphoresis. Objective Data Objective Data Vital Signs: Vital Signs Temp Pulse Resp BP Pulse Ox O2 Del Method O2 Flow Rate 98.9 F 92 19 H 160/77 H 94 Nasal Cannula 2 11/21/24 08:00 11/21/24 08:00 11/21/24 08:00 11/21/24 08:00 11/21/24 08:00 11/21/24 08:00 11/21/24 08:00 FiO2 28 11/18/24 21:15 Oxygen Flow Rate (L/min) 2 Oxygen Delivery Method Nasal Cannula Weight: 172 lb 9.951 oz Body Mass Index (BMI) 32.5 Intake & Output: Intake and Output for Last 24 Hours 11/19/24 11/20/24 11/21/24 23:59 23:59 23:59 Intake Total 3168.67 / 3174.27 537.40 / 537.40 414.25 / 414.25 Output Total 2024 1700 / 2200 900 / 900 Balance 1143.67 / 1149.27 -1162.60 / -1662.60 -485.75 / -485.75 Lab / Micro Data 11/21/24 03:35 11/21/24 03:35 Labs: Laboratory Results - last 24 hr 11/20/24 12:01: POC Glucose 123 H 11/20/24 16:51: POC Glucose 112 H 11/20/24 23:35: POC Glucose 127 H 11/21/24 03:35: WBC 11.3 H, RBC 2.71 L, Hgb 8.7 L, Hct 24.1 L, MCV 88.9, MCH 32.1 H, MCHC 36.1 H, RDW Std Deviation 44.9 H, RDW Coeff of Panchito 13.7, Plt Count 151, MPV 9.9, Immature Gran % (Auto) 0.200, Neut % (Auto) 89.5 H, Lymph % (Auto)3.9 L, Sebastian % (Auto) 6.2, Eos % (Auto) 0.0, Baso % (Auto) 0.2,Absolute Neuts (auto) 10.1 H, Absolute Lymphs (auto) 0.44 L, Nucleated RBC % 0, Differential Comment SCANNED, Sodium 133, Potassium 3.6, Chloride 105, Carbon Dioxide 17.7 L,Anion Gap 11, BUN 17, Creatinine 0.82, Estim Creat Clear Calc 65.18, Est GFR (MDRD) Non-Af 80, BUN/Creatinine Ratio 21.2 H, Glucose 137 H, Calcium 7.9 11/21/24 05:33: POC Glucose 116 H Micro: Microbiology 11/18/24 21:40 Blood Culture (Wb) - Anticubital Right Blood Culture - Preliminary No growth in 48 hours. 11/18/24 21:10 Blood Culture (Wb) - Anticubital Left Blood Culture - Preliminary No growth in 48 hours. 11/19/24 08:25 Nasal Secretion MRSA (PCR) - Final 11/19/24 04:03 Mucosa - Nasopharyngeal Respiratory Panel (PCR) - Final 11/18/24 21:04 Mucosa - Nose SARS-CoV-2, Influenza & RSV (PCR) - Final Physical Exam Narrative Seen and examined Patient off Levophed drip for more than 24 hours. Right chest wall hematoma minimally to no tenderness. Right shoulder/lateral axillary region mild bruise. Left subclavian CVC catheter. No chest pain Tolerated transitional diet for Earlier, patient admitted with chief complaint of chest pain and shortness of breath and nausea. Chest pain was localized in midsternal, sharp and states that she felt like she could not breathe. Patient denies abdominal pain. Bowel obstruction was ruled out. She had a large formed brown-colored stool. Physical exam General: Alert, Oriented x3, Cooperative HEENT: Atraumatic, PERRLA, EOMI, Normocephalic. Oral: No Gingival or Mucosal Lesions/ Ulcerations Neck: Supple, No JVD, Negative Carotid Bruits Chest wall/Lungs: Bruise around right subclavian region with needle peres with subcutaneous bruise.Air entry diminished in bilateral lung bases. No crepitation/rhonchi Cardiovascular: Sinus rhythm, Normal S1,S2, No M/G/R Abdomen: Bowel Sounds sluggish, Soft, Non Tender, Non-Distended : Aguiar catheter dark urine. No renal angle tenderness. No suprapubic tenderness. Extremities: No edema, Capillary Refill Less than 3 Seconds Skin: No rashes, No breakdown Musculoskeletal: No Tenderness to Palpation of Joints or Extremities Neurological: Cranial nerves II-XII grossly intact, DTR 2+/4. No acute focal neurological deficit. Psych/Mental Status: Normal Affect, Appropriate. Assessment & Plan Assessment/Plan (1) COPD exacerbation: (2) Bronchitis: (3) Acute respiratory failure: QUALIFIERS: Respiratory failure complication: unspecified whether with hypoxia or hypercapnia Qualified Code(s): J96.00 - Acute respiratory failure, unspecified whether with hypoxia or hypercapnia (4) Shock circulatory: (5) Adrenal insufficiency: (6) Severe hypotension: (7) Hypothermia: QUALIFIERS: Encounter type: initial encounter Qualified Code(s): T68.XXXA - Hypothermia, initial encounter (8) Acidosis, lactic: (9) Acquired polycythemia vera: (10) Hypothyroidism: QUALIFIERS: Hypothyroidism type: unspecified Qualified Code(s): E03.9 - Hypothyroidism, unspecified (11) Obesity (BMI 30.0-34.9): (12) NAFLD (nonalcoholic fatty liver disease): (13) Focal active colitis: (14) Duodenitis: (15) Elevated d-dimer: PLAN: Plan This is a 63-year-old female brought by EMS for shortness of breath complaint ofchest pain and nausea and diaphoretic diaphoretic. As per ED physician, she denied chest patient. Complain of nonproductive cough with no history of VTE. Denies leg pain swelling discoloration 1. Acute hypoxic respiratory failure due to acute exacerbation of COPD requiring BiPAP: Chest CTA does not show evidence of PE but chronic fibroemphysematous pulmonary changes with mediastinal lymphadenopathy and soft tissue thickening in bilateral hilar regions, may represent lymphadenopathy or peribronchial infiltrates Empirically started on IV Zosyn. Patient is being managed on scheduled bronchodilator, IV Solu-Medrol, Mucinex, incentive spirometry and Pep.. 11/21: Patient on 2 L of oxygen. IV Solu-Medrol changed to prednisone from tomorrow. Continue rest of the treatment. Incentive spirometry encouraged. 2. Undifferentiated Shock most likely hemorrhagic/distributive shock, less septic shock with SevereHypotension of 72/25 mmHg, Severe Hypothermia of 94.4 ?F, Lactic Acidosis of 3 mmol/L and Leukocytosis of 13.9 K all present on admission: Patient on Levophed drip, to keep MAP more than 65 mmHg through left subclavian CVC catheter inserted in ED. Patient was on RAD hugger to raise core temperature. Most recent temperature 98.1 ?F. Lactic acid still elevated 3.0, 2.1 and 2.7. Echo is ordered. CTshows large right pectoralis muscle hematoma 3.9 x 8.4 x 9.1 cm with secondary mild displacement and edema of the right pectoralis muscle. Mild surrounding soft tissue edema. CT does not show signific ant consolidation but minimal bilateral basilar atelectatic changes, unchanged emphysema/chronic interstitial thickening and unchanged mildly enlarged mediastinal lymph nodes largest measuring 1.2 cm. Discussed with retirement benefits specialist requesting consult as patient is on IV Levophed drip for shock 11/21: Shock has resolved. Patient off Levophed drip for more than 24 hours. Downgrade to PCU patient had 3 days of IV Zosyn and Zithromax. Respiratory panel, MRSA PCR negative. Blood culture negative for more than 48 hours. Continue IV Zosyn to cover peribronchial/interstitial pneumonia and possible duodenitis/colitis. 3. Polycythemia with hemoglobin of 18.9 g/dL present on admission (suspected graciela due to combination of chronic tobacco abuse and DENNIS) compounding #1 & #2 - Screen for SHONDA-2 mutation. Unclear whether it is true because previous hemoglobin was 13.8/40.5 in July 2020 but it was 18.9/55.1 on 11/18. Most recent 12.6/37.1% today. Patient has leukocytosis 21.4 increased from 13.9 and platelet count normal. 11/21: Acute anemia due to blood loss from right pectoralis muscle hematoma: H&H8.7/24.1%. Platelet count 151K. No antithrombotic or antiplatelet agent. TAM, present on admission: Probably, from shock, prerenal: Patient baseline creatinine around 0.8-1.0. Came with 1.36 point of 1.57 now back to baseline 0.82. TAM resolved 4. Subclinical hypothyroidism: Elevated TSH of 16.9, free T40.9, low normal Change IV levothyroxine to oral. 5. Obesity (class I); with BMI of 31.2 this admission plus NAFLD adding to the burden of disease outlined from #1 - #4 - Weight loss will be recommended. Thiscomplicates her case and may hamper recovery. 6. DM-2; of unknown control on metformin daily - Keep NPO for now. Hold metformin until further notice with elevated lactate. FSBS q. 6 hours plus lowest-intensity SSI. Check HgbA1c to objectively evaluate quality of diabetic control. 7. Essential hypertension; on lisinopril - Hold scheduled antihypertensives in light of #2. 8. Hyperlipidemia; on atorvastatin - Resume statin when patient can tolerate oral intake. 9. History of bilateral carotid artery stenosis; s/p Right CEA at [facility] (2012) - Noted. 10. PAD - Stable. Lower extremity Doppler ordered as D-dimer was critically high. 12. Schizophrenia and Depression; on thiothixene twice daily, buspirone 3 timesdaily, bupropion twice daily plus imipramine nightly - Hold oral agents at this time. 13. Chronic insomnia; on zolpidem nightly - Noted. 16. GERD; on pantoprazole - Resume PPI IV as outlined in #1. 17. OA; on ibuprofen: Discontinue ketorolac. Hold NSAIDs because of hematoma 18. DVT prophylaxis - hold Lovenox. Pharmacological prophylaxis contraindicated in view of large hematoma and right pectoralis muscle Clinical Impression(s) from Imaging Studies Chest X-Ray 11/18/24 20:50 IMPRESSION: No acute cardiopulmonary disease. Reading Location: [facility] Chest X-Ray 11/18/24 22:34 IMPRESSION: Left subclavian central venous catheter with tip at the lower SVC. Unchanged lung aeration. No pneumothorax or sizable pleural effusion. Reading Location: [facility] Chest CTA 11/18/24 22:41 IMPRESSION: No CT evidence of a pulmonary embolism. Mild chronic fibroemphysematous pulmonary changes, as described above. Mediastinal lymphadenopathy. Soft tissue thickening in the bilateral hilar regions may represent hilar lymphadenopathy or peribronchial infiltrates. Please correlate clinically for bronchitis. Moderate thoracic spondylosis with mild dextro convex scoliosis. Reading Location: [id number] Abdomen/Pelvis CT 11/19/24 00:03 IMPRESSION: 1. Abrupt narrowing of the proximal sigmoid colon with a short segment of wall thickening. This could represent focal colitis or a mucosal mass lesion. 2. Mild wall thickening of the duodenum with mild adjacent fat stranding, concerning for duodenitis. 3. Mild dilatation of the large and small bowel proximal to the focal narrowingin the proximal sigmoid colon, which could represent a low-grade partial small bowel obstruction. 4. Large amount of stool within the distal sigmoid colon and rectum. 5. Small hiatal hernia. 6. Moderate to severe thoracolumbar spondylosis with mild lumbar scoliosis. Reading Location: [facility] Echocardiogram 11/19/24 02:04 Interpretation Summary Technically difficult study with suboptimal images. Mild concentric left ventricular hypertrophy. The left ventricular ejection fraction is 65 %. Stage 1 diastolic dysfunction. Ordering Physician: Romeo Khan Referring Physician: LULU SWANSON Performed By: Agnieszka Brenner RCS Chest CT 11/19/24 03:46 IMPRESSION: Coronary artery calcification (CAC) is is present Acute soft tissue hematoma is noted underlying the right pectoralis muscle in the interim measuring3.9 x 8.4 x 9.1 cm in its largest anteroposterior, transverse and craniocaudal dimensions respectively. Secondary mild displacement and edema of the right pectoralis muscle. Mild surrounding soft tissue edema. Unchanged mild bilateral basilar pleural thickening/effusions. Unchanged minimal bilateral basilar atelectatic pulmonary changes. Unchanged emphysema/chronic interstitial thickening. Unchanged mildly enlarged mediastinal lymph nodes with the largest measuring 1.2cm. Chronic deformity of the axillary portion of the right 6th rib, unchanged. Reading Location: [facility] Charges/Coding Visit Charges Inpatient E&M: 12316 Subs Hosp L3 11/21/24 0852 Cosigner Signature (if applicable): CC: ~ Signed [facility]10-11-2025 Consult note Author Alvin Roger [facility] Note Date/Time November 20, 2024 6 :04pm [facility] Medical Records Department [address] [place] [address] Consultation - Sap Bi Architect 11/20/24 1759 MR#: [id number] Acct: [id number] Name: DAVID ALDRICH Rep #:[id number] : 1960 64 From: Alvin Munguia PCP: Lulu Swanson, PROCESS OPERATOR-C Status:ADM I N Location: ICU CVICU20 3-1 HPI Consult Data Date of Consult: 11/20/24 HPI Narrative HPI Narrative: DAVID ALDRICH, is a 64 F who presents [ ] PFSH Medical History Nicotine use disorder Septic arthritis Elevated coronary artery calcium score Neck pain Bilateral carotid artery stenosis Snoring Peripheral arterial disease Fatty liver disease, nonalcoholic Major depressive disorder, recurrent episode Bradycardia Palpitations SOB (shortness of breath) Diabetic acetonemia COPD (chronic obstructive pulmonary disease) Hyperlipidemia Home Medications ?Medication ?Instructions ?Recorded ?Last Taken ?Type atorvastatin 20 mg tablet 20 mg PO QHS 12/22/17 Unknow n History lisinopril 5 mg tablet 5 mg PO DAILY 12/22/17 Unkno wn History metformin 500 mg tablet 500 mg PO DAILY 12/22/17 Unk nown History aspirin 81 mg tablet,delayed 81 mg PO QDAY 01/14/24 Un known History release (Adult Aspirin Regimen) bupropion HCl 150 mg tablet,12 hr 150 mg PO BID Unknown History sustained-release (Wellbutrin SR) buspirone 5 mg tablet 5 mg PO TID 01/14/24 Unknown History cyclobenzaprine 5 mg tablet 5 mg PO TID PRN 01/14/24 U nknown History fluticasone fur. 100 mcg-umeclid 1 inh inhalation QDAY 01/14/24 Unknown History 62.5 mcg-vilant 25 mcg inhalat.powder (Trelegy Ellipta) ibuprofen 800 mg tablet 800 mg PO Q8H PRN 01/14/24 U nknown History imipramine HCl 50 mg tablet 150 mg PO QHS 01/14/24 Unk nown History ondansetron HCl 4 mg tablet 4 mg PO Q8H PRN 01/14/24 U nknown History thiothixene 2 mg capsule 2 mg PO BID 01/14/24 Unknown History zolpidem 10 mg tablet (Ambien) 10 mg PO QHS PRN sleep 01/14/24 Unknown History melatonin 5 mg capsule mg PO PRN 01/21/24 Unknown H istory pantoprazole 40 mg tablet,delayed 40 mg PO DAILY #90 t abs 03/26/24 Unknown Rx release Allergy/AdvReac Type Severity Reaction Status Date / Time simvastatin Allergy Other Verified 11/18/24 21:07 Family History Mother Heart disease Father Diabetes Brother Parkinson's disease Surgical History History of arthroscopy of knee History of colonoscopy History of rectal polypectomy History of cardiac catheterization H/O carotid endarterectomy History of appendectomy Social History household members: children Smoking Status: Current every day smoker tobacco type: cigarettes alcohol intake: never substance use type: does not use caffeine: Yes Objective Data Objective Data Vital Signs: Vital Signs Last response 3 Temperature 37.7 C H 11/20/24 16:00 Temperature Source Temporal 11/20/24 16:00 Pulse Rate 101 H 11/20/24 17:00 Pulse Strength Normal (2+) 11/20/24 10:00 Respiratory Rate 25 H 11/20/24 17:00 Respiratory Effort Normal, Non-Labored 11/20/24 16:00 Respiratory Depth Normal 11/20/24 16:00 Respiratory Pattern Tachypnea 11/20/24 16:00 Blood Pressure 150/66 H 11/20/24 17:00 Blood Pressure Mean 94 11/20/24 17:00 Blood Pressure Source Monitor 11/20/24 17:00 Blood Pressure Position Semi-Fowlers 11/20/24 17:00 Blood Pressure Location Right Arm 11/20/24 17:00 Pulse Ox 91 11/20/24 17:00 Oxygen Delivery Method Room Air 11/20/24 17:00 Oxygen Flow Rate (L/min) 2 11/18/24 22:45 Fraction of Inspired Oxygen (FIO2) 28 11/18/24 21:15 I&O: I&O Last 24 Hours 3 11/19/24 11/20/24 11/20/24 23:59 11:59 23:59 Intake Total 1656.20 / 3174.27 137.40 / 137.40 0 / 137.40 Output Total 155 / 2025 550 / 1700 1150 / 1700 Balance 106.20 / 1149.27 -412.60 / -1562.60 -1150 / -1562.60 I&O: Total Stay 3 11/18/24 20:33 thru 11/20/24 17:00 Intake Total 6340.62 Output Total 3725 Balance 2615.62 Current Meds Ordered / Administered: Current meds ordered / Administered 3 Generic Name Dose Route Start Last Admin Trade Name Freq PRN Reason Stop Dose Admin Albuterol Sulfate 2.5 mg 11/19/24 02:04 Albuterol 2.5 Mg/3 Ml Vial.Neb. INHALATION Q2H PRN PRN SOB &/OR WHEEZING Enoxaparin Sodium 40 mg 11/19/24 10:00 11/19/24 10:10 Enoxaparin 40 Mg/0.4 Ml Syringe SC 40 mg On Hold: 11/19/24 13:57 DAILY AARON Administration Glucagon 1 mg 11/19/24 02:04 Glucagon 1 Mg/Ml Syringe IM X1 PRN HYPOGLYCEMIA Protocol Sodium Chloride 1,000 mls @ 15 mls/hr 11/18/24 23:15 11/19/24 20:53 IV 0 mls/hr .Q48H AARON Infusion Norepinephrine Bitartrate 8 mg 250 mls @ 9.375 mls/hr 11/18/24 22:00 11/20/2516:00 / Sodium Chloride CONT INF 0 mcg/min .[id number] AARON 0 mls/hr Protocol Titration 5 MCG/MIN Piperacillin Sod/Tazobactam 50 mls @ 12.5 mls/hr 11/19/24 02:04 11/20/24 14:38 Sod 3.375 gm/ Sodium Chloride IV 12.5 mls/hr Q8 AAORN Administration Azithromycin 500 mg/ Sodium 250 mls @ 250 mls/hr 11/19/24 02:04 11/19/24 21:31 Chloride IV Infused 2200 AARON Infusion Pantoprazole Sodium 40 mg/ 100 mls @ 330 mls/hr 11/19/24 02:04 11/19/24 20:54 Sodium Chloride IV Infused 2200 AARON Infusion Dextrose 250 mls @ 0 mls/hr 11/19/24 02:04 Dextrose 10%-Water IV .Q0M PRN HYPOGLYCEMIA Protocol As Directed Sodium Chloride 250 mls @ 15 mls/hr 11/19/24 20:20 11/20/24 09:12 IV 15 mls/hr .[id number] PRN Infusion Saline Flush Sodium Chloride 250 mls @ 15 mls/hr 11/19/24 20:20 IV .[id number] PRN Additional IVPB Infusion Insulin Human Lispro 0 unit 11/19/24 06:00 11/20/24 16:53 Insulin Lispro 100 Unit/Ml Insuln.Pen SC Not Given Q6 AARON Protocol Levothyroxine Sodium 25 mcg 11/19/24 10:00 11/20/24 10:39 Levothyroxine Sodium 100 Mcg Vial IV 25 mcg DAILY AARON Administration Methylprednisolone Sodium Succinate 40 mg 11/19/24 14:00 11/20/24 14:38 Methylprednisolone Sod Succ 40 Mg/Ml Vial IV 40 mg Q8 AARON Administration Nicotine 14 mg 11/19/24 10:00 11/20/24 10:39 Nicotine (Pbkc) 14 Mg Patch TD 14 mg DAILY AARON Administration Ondansetron HCl 4 mg 11/19/24 02:04 Ondansetron 4 Mg/2 Ml Vial IV Q6H PRN PRN NAUSEA/VOMITING Sodium Chloride 10 - 40 ml 11/19/24 02:11 11/20/24 10:40 0.9% Saline Lock 10 Ml Syringe IV 40 ml UD PRN Administration SALINE FLUSH Sodium Chloride 10 - 40 ml 11/19/24 20:20 0.9% Saline Lock 10 Ml Syringe IV UD PRN SALINE FLUSH Lab / Micro Data 11/20/24 05:30 11/20/24 05:30 Labs: Laboratory Results - last 24 hr 11/19/24 18:32: POC Glucose 142 H 11/20/24 05:06: POC Glucose 143 H 11/20/24 05:30: WBC 17.8 H, RBC 3.18 L, Hgb 10.2 L, Hct 28.7 L, MCV 90.3, MCH 32.1 H, MCHC 35.5, RDW Std Deviation 45.4 H, RDW Coeff of Panchito 13.6, Plt Count 192, MPV 9.8, Immature Gran % (Auto) 0.300, Neut % (Auto) 86.5 H, Lymph % (Auto)3.9 L, Sebastian % (Auto) 9.1, Eos % (Auto) 0.0, Baso % (Auto) 0.2, Absolute Neuts (auto) 15.4 H, Absolute Lymphs (auto) 0.70 L, Nucleated RBC % 0, Differential Comment , Toxic Vacuolation 1+, Platelet Estimate ADEQUATE, RBC Morphology NORM C+C, Sodium 134, Potassium 3.9, Chloride 106, Carbon Dioxide 15.2 L, Anion Gap 13, BUN 27 H, Creatinine 1.29 H, Estim Creat Clear Calc 41.43 L, Est GFR (MDRD) Non-Af 47 L, BUN/Creatinine Ratio 20.9 H, Glucose 157 H, Calcium 7.8 11/20/24 12:01: POC Glucose 123 H 11/20/24 16:51: POC Glucose 112 H Assessment and Plan . Assessment and plan: 64 yo obese female smoker admitted 11/19/24 w/ CP and dyspnea. Noted hypotension in ED requiring IVF and NE infusion CTA chest reveals emphysema but o/w unremarkable. CT A/P reveals e/o transverseand descending colitis. Lab significant for unremarkable LA. Modest leukocytosis. CX NGTD. She has received empiric IV ABX. Course also c/b CW hematoma following attempts at CVC She is currently breathing RA comfortably. BP WNL - NE has been weaned off. She is tolerating liquids po - still c/o some modest LAP Exam is largely unremarkable. No obvious wheezes, abdomen is soft and benign IMPRESSION 1. Suspected sepsis syndrome - improving 2. Suspected colitis 3. Tobacco use / emphysema 4. ASCVD 5. Chest wall hematoma - iatrogenic REC -empiric ABX -inhaled BD -would wean steroids off quickly -hold A/C for now -consider GI v CRS consultation We are available as needed. The entirety of this encounter was done via Telemedicine 11/20/241803 <Electronically signed by Alvin Duran MD> Cosigner Signature (if applicable): CC: FABI-Cal Swanson~ Signed [facility] Work Phone: [phone] [phone] Consult note [facility] Medical Records Department [address] [place] [address] Consultation - Sap Bi Architect 11/20/24 1759 MR#: [id number] Acct: [id number] Name: DAVID ALDRICH Rep #:[id number] : 1960 64 From: Alvin Munguia PCP: CB Landaverde Status:ADM I N Location: ICU CVICU20 3-1 HPI Consult Data Date of Consult: 11/20/24 HPI Narrative HPI Narrative: DAVID ALDRICH, is a 64 F who presents [ ] PFSH Medical History Nicotine use disorder Septic arthritis Elevated coronary artery calcium score Neck pain Bilateral carotid artery stenosis Snoring Peripheral arterial disease Fatty liver disease, nonalcoholic Major depressive disorder, recurrent episode Bradycardia Palpitations SOB (shortness of breath) Diabetic acetonemia COPD (chronic obstructive pulmonary disease) Hyperlipidemia Home Medications ?Medication ?Instructions ?Recorded ?Last Taken ?Type atorvastatin 20 mg tablet 20 mg PO QHS 12/22/17 Unknow n History lisinopril 5 mg tablet 5 mg PO DAILY 12/22/17 Unkno wn History metformin 500 mg tablet 500 mg PO DAILY 12/22/17 Unk nown History aspirin 81 mg tablet,delayed 81 mg PO QDAY 01/14/24 Un known History release (Adult Aspirin Regimen) bupropion HCl 150 mg tablet,12 hr 150 mg PO BID Unknown History sustained-release (Wellbutrin SR) buspirone 5 mg tablet 5 mg PO TID 01/14/24 Unknown History cyclobenzaprine 5 mg tablet 5 mg PO TID PRN 01/14/24 U nknown History fluticasone fur. 100 mcg-umeclid 1 inh inhalation QDAY 01/14/24 Unknown History 62.5 mcg-vilant 25 mcg inhalat.powder (Trelegy Ellipta) ibuprofen 800 mg tablet 800 mg PO Q8H PRN 01/14/24 U nknown History imipramine HCl 50 mg tablet 150 mg PO QHS 01/14/24 Unk nown History ondansetron HCl 4 mg tablet 4 mg PO Q8H PRN 01/14/24 U nknown History thiothixene 2 mg capsule 2 mg PO BID 01/14/24 Unknown History zolpidem 10 mg tablet (Ambien) 10 mg PO QHS PRN sleep 01/14/24 Unknown History melatonin 5 mg capsule mg PO PRN 01/21/24 Unknown H istory pantoprazole 40 mg tablet,delayed 40 mg PO DAILY #90 t abs 03/26/24 Unknown Rx release Allergy/AdvReac Type Severity Reaction Status Date / Time simvastatin Allergy Other Verified 11/18/24 21:07 Family History Mother Heart disease Father Diabetes Brother Parkinson's disease Surgical History History of arthroscopy of knee History of colonoscopy History of rectal polypectomy History of cardiac catheterization H/O carotid endarterectomy History of appendectomy Social History household members: children Smoking Status: Current every day smoker tobacco type: cigarettes alcohol intake: never substance use type: does not use caffeine: Yes Objective Data Objective Data Vital Signs: Vital Signs Last response 3 Temperature 37.7 C H 11/20/24 16:00 Temperature Source Temporal 11/20/24 16:00 Pulse Rate 101 H 11/20/24 17:00 Pulse Strength Normal (2+) 11/20/24 10:00 Respiratory Rate 25 H 11/20/24 17:00 Respiratory Effort Normal, Non-Labored 11/20/24 16:00 Respiratory Depth Normal 11/20/24 16:00 Respiratory Pattern Tachypnea 11/20/24 16:00 Blood Pressure 150/66 H 11/20/24 17:00 Blood Pressure Mean 94 11/20/24 17:00 Blood Pressure Source Monitor 11/20/24 17:00 Blood Pressure Position Semi-Fowlers 11/20/24 17:00 Blood Pressure Location Right Arm 11/20/24 17:00 Pulse Ox 91 11/20/24 17:00 Oxygen Delivery Method Room Air 11/20/24 17:00 Oxygen Flow Rate (L/min) 2 11/18/24 22:45 Fraction of Inspired Oxygen (FIO2) 28 11/18/24 21:15 I&O: I&O Last 24 Hours 3 11/19/24 11/20/24 11/20/24 23:59 11:59 23:59 Intake Total 1656.20 / 3174.27 137.40 / 137.40 0 / 137.40 Output Total 1549 550 / 1700 1150 / 1700 Balance 106.20 / 1149.27 -412.60 / -1562.60 -1150 / -1562.60 I&O: Total Stay 3 11/18/24 20:33 thru 11/20/24 17:00 Intake Total 6340.62 Output Total 3725 Balance 2615.62 Current Meds Ordered / Administered: Current meds ordered / Administered 3 Generic Name Dose Route Start Last Admin Trade Name Freq PRN Reason Stop Dose Admin Albuterol Sulfate 2.5 mg 11/19/24 02:04 Albuterol 2.5 Mg/3 Ml Vial.Neb. INHALATION Q2H PRN PRN SOB &/OR WHEEZING Enoxaparin Sodium 40 mg 11/19/24 10:00 11/19/24 10:10 Enoxaparin 40 Mg/0.4 Ml Syringe SC 40 mg On Hold: 11/19/24 13:57 DAILY AARON Administration Glucagon 1 mg 11/19/24 02:04 Glucagon 1 Mg/Ml Syringe IM X1 PRN HYPOGLYCEMIA Protocol Sodium Chloride 1,000 mls @ 15 mls/hr 11/18/24 23:15 11/19/24 20:53 IV 0 mls/hr .Q48H AARON Infusion Norepinephrine Bitartrate 8 mg 250 mls @ 9.375 mls/hr 11/18/24 22:00 11/20/2516:00 / Sodium Chloride CONT INF 0 mcg/min .[id number] AARON 0 mls/hr Protocol Titration 5 MCG/MIN Piperacillin Sod/Tazobactam 50 mls @ 12.5 mls/hr 11/19/24 02:04 11/20/24 14:38 Sod 3.375 gm/ Sodium Chloride IV 12.5 mls/hr Q8 AARON Administration Azithromycin 500 mg/ Sodium 250 mls @ 250 mls/hr 11/19/24 02:04 11/19/24 21:31 Chloride IV Infused 2200 AARON Infusion Pantoprazole Sodium 40 mg/ 100 mls @ 330 mls/hr 11/19/24 02:04 11/19/24 20:54 Sodium Chloride IV Infused 2200 AARON Infusion Dextrose 250 mls @ 0 mls/hr 11/19/24 02:04 Dextrose 10%-Water IV .Q0M PRN HYPOGLYCEMIA Protocol As Directed Sodium Chloride 250 mls @ 15 mls/hr 11/19/24 20:20 11/20/24 09:12 IV 15 mls/hr .[id number] PRN Infusion Saline Flush Sodium Chloride 250 mls @ 15 mls/hr 11/19/24 20:20 IV .[id number] PRN Additional IVPB Infusion Insulin Human Lispro 0 unit 11/19/24 06:00 11/20/24 16:53 Insulin Lispro 100 Unit/Ml Insuln.Pen SC Not Given Q6 AARON Protocol Levothyroxine Sodium 25 mcg 11/19/24 10:00 11/20/24 10:39 Levothyroxine Sodium 100 Mcg Vial IV 25 mcg DAILY AARON Administration Methylprednisolone Sodium Succinate 40 mg 11/19/24 14:00 11/20/24 14:38 Methylprednisolone Sod Succ 40 Mg/Ml Vial IV 40 mg Q8 AARON Administration Nicotine 14 mg 11/19/24 10:00 11/20/24 10:39 Nicotine (Pbkc) 14 Mg Patch TD 14 mg DAILY AARON Administration Ondansetron HCl 4 mg 11/19/24 02:04 Ondansetron 4 Mg/2 Ml Vial IV Q6H PRN PRN NAUSEA/VOMITING Sodium Chloride 10 - 40 ml 11/19/24 02:11 11/20/24 10:40 0.9% Saline Lock 10 Ml Syringe IV 40 ml UD PRN Administration SALINE FLUSH Sodium Chloride 10 - 40 ml 11/19/24 20:20 0.9% Saline Lock 10 Ml Syringe IV UD PRN SALINE FLUSH Lab / Micro Data 11/20/24 05:30 11/20/24 05:30 Labs: Laboratory Results - last 24 hr 11/19/24 18:32: POC Glucose 142 H 11/20/24 05:06: POC Glucose 143 H 11/20/24 05:30: WBC 17.8 H, RBC 3.18 L, Hgb 10.2 L, Hct 28.7 L, MCV 90.3, MCH 32.1 H, MCHC 35.5, RDW Std Deviation 45.4 H, RDW Coeff of Panchito 13.6, Plt Count 192, MPV 9.8, Immature Gran % (Auto) 0.300,Neut % (Auto) 86.5 H, Lymph % (Auto)3.9 L, Sebastian % (Auto) 9.1, Eos % (Auto) 0.0, Baso % (Auto) 0.2, Absolute Neuts (auto) 15.4 H, Absolute Lymphs (auto) 0.70 L, Nucleated RBC % 0, Differential Comment, Toxic Vacuolation 1+, Platelet Estimate ADEQUATE, RBC Morphology NORM C+C, Sodium 134, Potassium 3.9, Chloride 106, Carbon Dioxide 15.2 L, Anion Gap 13, BUN 27 H, Creatinine 1.29 H, Estim Creat Clear Calc 41.43 L, Est GFR (MDRD) Non-Af 47 L, BUN/Creatinine Ratio 20.9 H, Glucose 157 H, Calcium 7.8 11/20/24 12:01: POC Glucose 123 H 11/20/24 16:51: POC Glucose 112 H Assessment and Plan . Assessment and plan: 64 yo obese female smoker admitted 11/19/24 w/ CP and dyspnea. Noted hypotension in ED requiring IVF and NE infusion CTA chest reveals emphysema but o/w unremarkable. CT A/P reveals e/o transverseand descending colitis. Lab significant for unremarkable LA. Modest leukocytosis. CX NGTD. She has received empiric IV ABX. Course also c/b CW hematoma following attempts at CVC She is currently breathing RA comfortably. BP WNL - NE has been weaned off. She is tolerating liquids po - still c/o some modest LAP Exam is largely unremarkable. No obvious wheezes, abdomen is soft and benign IMPRESSION 1. Suspected sepsis syndrome - improving 2. Suspected colitis 3. Tobacco use / emphysema 4. ASCVD 5. Chest wall hematoma - iatrogenic REC -empiric ABX -inhaled BD -would wean steroids off quickly -hold A/C for now -consider GI v CRS consultation We are available as needed. The entirety of this encounter was done via Telemedicine 11/20/24 1804 Cosigner Signature (if applicable): CC: CB Swanson~ Signed [facility]10-11-2025 Progress note Author Kenny Pompa [facility] Note Date/Time November 20, 2024 8 :36am [facility] Medical Records Department [address] [place] [address] Progress Note - Hospitalist 11/19/24 1413 MR#: [id number] Acct: [id number] Name: DAVID ALDRICH Rep #:[id number] : 1960 64 From: Kenny Mungiua PCP: CB Landaverde Status:ADM I N Location: ICU CVICU20 3-1 Reason for Visit Chief Complaint: SOB, Wheezing and Diaphoresis. Objective Data Objective Data Vital Signs: Vital Signs Temp Pulse Resp BP Pulse Ox O2 Del Method O2 Flow Rate 98.1 F 89 18 90/43 L 95 Room Air 2 11/19/24 02:04 11/19/24 05:00 11/19/24 05:00 11/19/24 05:00 11/19/24 05:00 11/19/24 04:00 11/18/24 22:45 FiO2 28 11/18/24 21:15 Oxygen Flow Rate (L/min) 2 Oxygen Delivery Method Room Air Weight: 163 lb 9.328 oz Body Mass Index (BMI) 30.9 Intake & Output: Intake and Output for Last 24 Hours 11/17/24 11/18/24 11/19/24 23:59 23:59 23:59 Intake Total 3034.55 / 3034.55 474.82 / 474.82 Output Total 475 / 475 Balance 3034.55 / 3034.55 -0.18 / -0.18 Lab / Micro Data 11/19/24 07:04 11/19/24 07:04 Labs: Laboratory Results - last 24 hr 11/18/24 21:00: WBC 13.9 H, RBC 6.01 H, Hgb 18.9 H*, Hct 55.1 H, MCV 91.7, MCH 31.4, MCHC 34.3, RDW Std Deviation 44.1 H, RDW Coeff of Panchito 13.0, Plt Count 390,MPV 10.6, Immature Gran % (Auto) 0.800, Neut % (Auto) 55.3, Lymph % (Auto) 35.6,Sebastian % (Auto) 4.5, Eos % (Auto) 2.9, Baso % (Auto) 0.9, Absolute Neuts (auto) 7.7, Absolute Lymphs (auto) 4.95 H, Nucleated RBC % 0, PT 15.7 H, INR 1.2, APTT 32.1, Sodium 134, Potassium 4.0, Chloride 98, Carbon Dioxide 17.7 L, Anion Gap 18 H, BUN 17, Creatinine 1.36 H, Estim Creat Clear Calc 39.22 L, Est GFR (MDRD) Non-Af 44 L, BUN/Creatinine Ratio 12.4, Glucose 316 H, Calcium 10.0, Total Bilirubin 0.53, AST 64 H, ALT 38 H, Alkaline Phosphatase 115 H, Troponin T High Sens 11, Total Protein 6.8, Albumin 3.9, Globulin 2.9, Albumin/Globulin Ratio 1.3, b-Hydroxybutyric mmol/L 0.2, TSH 16.900 H, Cortisol PM Sample 35.80 H 11/18/24 21:08: Lactic Acid 3.0 H* 11/18/24 21:42: Urine Color Yellow, Urine Clarity Clear, Urine pH 6.0, Ur Specific [place] 1.015, Urine Protein 100 H, Urine Glucose (UA) Normal, Urine Ketones Negative, Urine Occult Blood 10 H, Urine Nitrite Negative, Urine Bilirubin 6 H, Urine Urobilinogen Normal, Ur Leukocyte Esterase 25 H, Urine RBC 0-5 SEEN, Urine WBC 0-5 SEEN, Ur Squamous Epith Cells 0-5 SEEN, Urine Bacteria 0SEEN, Urine Mucus 0 SEEN 11/18/24 23:16: Troponin T Hi Sens 2 Hr 15 H 11/19/24 01:24: Troponin T Hi Sens 4Hr 22 H 11/19/24 02:10: D-Dimer Quant (PE/DVT) > 20.00 H*, Hemoglobin A1c 6.1 H, Lactic Acid 2.1 H*, Magnesium 2.6 H, Free T4 0.90, Free T3 pg/dL 2.4 11/19/24 07:04: WBC 21.4 H, RBC 4.00 L, Hgb 12.6, Hct 37.1, MCV 92.8, MCH 31.5, MCHC 34.0, RDW Std Deviation 45.2 H, RDW Coeff of Panchito 13.2, Plt Count 276, MPV 9.7, Immature Gran % (Auto) 0.600, Neut % (Auto) 90.7 H, Lymph % (Auto) 3.5 L, Sebastian % (Auto) 4.9, Eos % (Auto) 0.1, Baso % (Auto) 0.2, Absolute Neuts (auto) 19.5 H, Absolute Lymphs (auto) 0.75 L, Nucleated RBC % 0 Micro: Microbiology 11/18/24 21:04 Mucosa - Nose SARS-CoV-2, Influenza & RSV (PCR) - Final ABG Data ABG results: ABG 11/18/24 11/19/24 21:07 04:24 Specimen Type ART ART Sample Site L Radial L Radial pH 7.30 L 7.30 L Bicarbonate Actual 13.1 L 14.9 L Total CO2 14 16 Base Excess -13 L -12 L O2 Saturation 100 H 95 O2 % 6.0 ABG pCO2 26.6 L 30.4 L ABG pO2 504 H* 81 Nayana Test N/A Positive O2 Delivery Device Cannula Room Air Vent Mode Not entered Not entered Crit Call To/Read Back Yes Blood Gas Notified Whom Dr Marques Blood Gas Notified Time 21:09:37 Radiography Diagnostic Testing: Radiology Impression Chest X-Ray 11/18/24 20:50 IMPRESSION: No acute cardiopulmonary disease. Reading Location: [facility] Chest X-Ray 11/18/24 22:34 IMPRESSION: Left subclavian central venous catheter with tip at the lower SVC. Unchanged lung aeration. No pneumothorax or sizable pleural effusion. Reading Location: [facility] Chest CTA 11/18/24 22:41 IMPRESSION: No CT evidence of a pulmonary embolism. Mild chronic fibroemphysematous pulmonary changes, as described above. Mediastinal lymphadenopathy. Soft tissue thickening in the bilateral hilar regions may represent hilar lymphadenopathy or peribronchial infiltrates. Please correlate clinically for bronchitis. Moderate thoracic spondylosis with mild dextro convex scoliosis. Reading Location: [facility] Abdomen/Pelvis CT 11/19/24 00:03 IMPRESSION: 1. Abrupt narrowing of the proximal sigmoid colon with a short segment of wall thickening. This could represent focal colitis or a mucosal mass lesion. 2. Mild wall thickening of the duodenum with mild adjacent fat stranding, concerning for duodenitis. 3. Mild dilatation of the large and small bowel proximal to the focal narrowingin the proximal sigmoid colon, which could represent a low-grade partial small bowel obstruction. 4. Large amount of stool within the distal sigmoid colon and rectum. 5. Small hiatal hernia. 6. Moderate to severe thoracolumbar spondylosis with mild lumbar scoliosis. Reading Location: [facility] Chest CT 11/19/24 03:46 IMPRESSION: Coronary artery calcification (CAC) is is present Acute soft tissue hematoma is noted underlying the right pectoralis muscle in the interim measuring 3.9 x 8.4 x 9.1 cm in its largest anteroposterior, transverse and craniocaudal dimensions respectively. Secondary mild displacement and edema of the right pectoralis muscle. Mild surrounding soft tissue edema. Unchanged mild bilateral basilar pleural thickening/effusions. Unchanged minimal bilateral basilar atelectatic pulmonary changes. Unchanged emphysema/chronic interstitial thickening. Unchanged mildly enlarged mediastinal lymph nodes with the largest measuring 1.2cm. Chronic deformity of the axillary portion of the right 6th rib, unchanged. Reading Location: [place] [address] Physical Exam Narrative Seen and examined Patient admitted with chief complaint of chest pain and shortness of breath and nausea. Chest pain was localized in midsternal, sharp and states that she felt like she could not breathe. Currently 97% on room air. Patient denies abdominal pain. She had a large formed brown-colored stool. Intermittent abdominal pain Physical exam General: Alert, Oriented x3, Cooperative HEENT: Atraumatic, PERRLA, EOMI, Normocephalic. Oral: No Gingival or Mucosal Lesions/ Ulcerations Neck: Supple, No JVD, Negative Carotid Bruits Chest wall/Lungs: Air entry diminished in bilateral lung bases. No crepitation/rhonchi Cardiovascular: Sinus rhythm, Normal S1,S2, No M/G/R Abdomen: Bowel Sounds sluggish, Soft, Non Tender, Non-Distended : No dysuria. No renal angle tenderness. No suprapubic tenderness. Extremities: No edema, Capillary Refill Less than 3 Seconds Skin: No rashes, No breakdown Musculoskeletal: No Tenderness to Palpation of Joints or Extremities Neurological: Cranial nerves II-XII grossly intact, DTR 2+/4. No acute focal neurological deficit. Psych/Mental Status: Normal Affect, Appropriate. Assessment & Plan Assessment/Plan (1) COPD exacerbation: (2) Bronchitis: (3) Acute respiratory failure: QUALIFIERS: Respiratory failure complication: unspecified whether with hypoxia or hypercapnia Qualified Code(s): J96.00 - Acute respiratory failure, unspecified whether with hypoxia or hypercapnia (4) Shock circulatory: (5) Adrenal insufficiency: (6) Severe hypotension: (7) Hypothermia: QUALIFIERS: Encounter type: initial encounter Qualified Code(s): T68.XXXA - Hypothermia, initial encounter (8) Acidosis, lactic: (9) Acquired polycythemia vera: (10) Hypothyroidism: QUALIFIERS: Hypothyroidism type: unspecified Qualified Code(s): E03.9 - Hypothyroidism, unspecified (11) Obesity (BMI 30.0-34.9): (12) NAFLD (nonalcoholic fatty liver disease): (13) Focal active colitis: (14) Duodenitis: (15) Elevated d-dimer: PLAN: Plan This is a 63-year-old female brought by EMS for shortness of breath complaint ofchest pain and nausea and diaphoretic diaphoretic. As per ED physician, she denied chest patient. Complain of nonproductive cough with no history of VTE. Denies leg pain swelling discoloration 1. Acute hypoxic respiratory failure due to acute exacerbation of COPD requiring BiPAP: Chest CTA does not show evidence of PE but chronic fibroemphysematous pulmonary changes with mediastinal lymphadenopathy and soft tissue thickening in bilateral hilar regions, may represent lymphadenopathy or peribronchial infiltrates Empirically started on IV Zosyn. Patient is being managed on scheduled bronchodilator, IV Solu-Medrol, Mucinex, incentive spirometry and Pep.. 2. Undifferentiated Shock most likely hemorrhagic/distributive shock, less septic shock with Severe Hypotension of 72/25 mmHg, Severe Hypothermia of 94.4 ?F, Lactic Acidosis of 3 mmol/L and Leukocytosis of 13.9 K all present on admission: Patient on Levophed drip, to keep MAP more than 65 mmHg through left subclavian CVC catheter inserted in ED. Patient was on RAD hugger to raise core temperature. Most recent temperature 98.1 ?F. Lactic acid still elevated 3.0, 2.1 and 2.7. Echo is ordered. CT shows large right pectoralis muscle hematoma 3.9 x 8.4 x 9.1 cm with secondary mild displacement and edema of the right pectoralis muscle. Mild surrounding soft tissue edema. CT does not show significant consolidation but minimal bilateral basilar atelectatic changes, unchanged emphysema/chronic interstitial thickening and unchanged mildly enlarged mediastinal lymph nodes largest measuring 1.2 cm. Discussed with retirement benefits specialist requesting consult as patient is on IV Levophed drip for shock 3. Polycythemia with hemoglobin of 18.9 g/dL present on admission (suspected graciela due to combination of chronic tobacco abuse and DENNIS) compounding #1 & #2 - Screen for SHONDA-2 mutation. Unclear whether it is true because previous hemoglobin was 13.8/40.5 in July 2020 but it was 18.9/55.1 on 11/18. Most recent 12.6/37.1% today. Patient has leukocytosis 21.4 increased from 13.9 and platelet count normal. 4. Subclinical hypothyroidism: Elevated TSH of 16.9, free T40.9, low normal 5. Obesity (class I); with BMI of 31.2 this admission plus NAFLD adding to the burden of disease outlined from #1 - #4 - Weight loss will be recommended. Thiscomplicates her case and may hamper recovery. 6. DM-2; of unknown control on metformin daily - Keep NPO for now. Hold metformin until further notice with elevated lactate. FSBS q. 6 hours plus lowest- intensity SSI. Check HgbA1c to objectively evaluate quality of diabetic control. 7. Essential hypertension; on lisinopril - Hold scheduled antihypertensives in light of #2. 8. Hyperlipidemia; on atorvastatin - Resume statin when patient can tolerate oral intake. 9. History of bilateral carotid artery stenosis; s/p Right CEA at [facility] (2012) - Noted. 10. PAD - Stable. Lower extremity Doppler ordered as D-dimer was critically high. 12. Schizophrenia and Depression; on thiothixene twice daily, buspirone 3 timesdaily, bupropion twice daily plus imipramine nightly - Hold oral agents at this time. 13. Chronic insomnia; on zolpidem nightly - Noted. 16. GERD; on pantoprazole - Resume PPI IV as outlined in #1. 17. OA; on ibuprofen: Discontinue ketorolac. Hold NSAIDs because of hematoma 18. DVT prophylaxis - hold Lovenox. Pharmacological prophylaxis contraindicated in view of large hematoma and right pectoralis muscle Clinical Impression(s) from Imaging Studies Chest X-Ray 11/18/24 20:50 IMPRESSION: No acute cardiopulmonary disease. Reading Location: [facility] Chest X-Ray 11/18/24 22:34 IMPRESSION: Left subclavian central venous catheter with tip at the lower SVC. Unchanged lung aeration. No pneumothorax or sizable pleural effusion. Reading Location: [facility] Chest CTA 11/18/24 22:41 IMPRESSION: No CT evidence of a pulmonary embolism. Mild chronic fibroemphysematous pulmonary changes, as described above. Mediastinal lymphadenopathy. Soft tissue thickening in the bilateral hilar regions may represent hilar lymphadenopathy or peribronchial infiltrates. Please correlate clinically for bronchitis. Moderate thoracic spondylosis with mild dextro convex scoliosis. Reading Location: [facility] Abdomen/Pelvis CT 11/19/24 00:03 IMPRESSION: 1. Abrupt narrowing of the proximal sigmoid colon with a short segment of wall thickening. This could represent focal colitis or a mucosal mass lesion. 2. Mild wall thickening of the duodenum with mild adjacent fat stranding, concerning for duodenitis. 3. Mild dilatation of the large and small bowel proximal to the focal narrowingin the proximal sigmoid colon, which could represent a low-grade partial small bowel obstruction. 4. Large amount of stool within the distal sigmoid colon and rectum. 5. Small hiatal hernia. 6. Moderate to severe thoracolumbar spondylosis with mild lumbar scoliosis. Reading Location: [facility] Echocardiogram 11/19/24 02:04 Interpretation Summary Technically difficult study with suboptimal images. Mild concentric left ventricular hypertrophy. The left ventricular ejection fraction is 65 %. Stage 1 diastolic dysfunction. Ordering Physician: Romeo Khan Referring Physician: LULU SWANSON Performed By: Agnieszka Brenner RCS Chest CT 11/19/24 03:46 IMPRESSION: Coronary artery calcification (CAC) is is present Acute soft tissue hematoma is noted underlying the right pectoralis muscle in the interim measuring 3.9 x 8.4 x 9.1 cm in its largest anteroposterior, transverse and craniocaudal dimensions respectively. Secondary mild displacement and edema of the right pectoralis muscle. Mild surrounding soft tissue edema. Unchanged mild bilateral basilar pleural thickening/effusions. Unchanged minimal bilateral basilar atelectatic pulmonary changes. Unchanged emphysema/chronic interstitial thickening. Unchanged mildly enlarged mediastinal lymph nodes with the largest measuring 1.2cm. Chronic deformity of the axillary portion of the right 6th rib, unchanged. Reading Location: [place] [address] Charges/Coding Visit Charges Inpatient E&M: 11168 Subs Hosp L3 11/19/24 1413 <Electronically signed by Kenny Pompa MD> Cosigner Signature (if applicable): CC: ~ Signed ADDENDUM by Dr. Kenny Pompa MD on 11/20/24 at 0836 Addendum Suspicion of focal sigmoid colitis/ischemic colitis: Discussed with surgeon Dr. Brown. Initial and then repeat CT abdomen and pelvis images with p.o. and per rectal was reviewed with him. CT imaging initially reported abnormal with abrupt transition of sigmoid colon concerning for possible focal colitis or concern/possible small bowel obstruction. Repeat CT imaging with p.o. and NE contrast showed no evidence of bowel obstruction and no focal narrowing of colon. There was concern of colitis and/or ischemic colitis. 11/20/24 0836<Electronically signed by Kenny Pompa MD> Cosigner Signature (if applicable): cc: ~* Signed [facility] Work Phone: 1(375) 422-913310-11-2025 Progress note Author Kenny Pompa [facility] Note Date/Time November 20, 2024 8 :34am [facility] Medical Records Department [address] [place] [id number] Progress Note - Hospitalist 11/20/24823 MR#: [id number] Acct: [id number] Name: DAVID ALDRICH Rep #:[id number] : 1960 64 From: Kenny Munguia PCP: CB Landaverde Status:ADM I N Location: ICU CVICU20 3-1 Reason for Visit Chief Complaint: SOB, Wheezing and Diaphoresis. Objective Data Objective Data Vital Signs: Vital Signs Temp Pulse Resp BP Pulse Ox O2 Del Method O2 Flow Rate 99 F 98 27 H 126/58 H 97 Room Air 2 11/20/24 04:00 11/20/24 07:00 11/20/24 07:00 11/20/24 07:00 11/20/24 07:00 11/20/24 07:00 11/18/24 22:45 FiO2 28 11/18/24 21:15 Oxygen Flow Rate (L/min) 2 Oxygen Delivery Method Room Air Weight: 166 lb 0.129 oz Body Mass Index (BMI) 31.3 Intake & Output: Intake and Output for Last 24 Hours 11/18/24 11/19/24 11/20/24 23:59 23:59 23:59 Intake Total 3034.55 / 3034.55 3168.67 / 3174.27 87.40 / 87.40 Output Total 2024 550 / 550 Balance 3034.55 / 3034.55 1143.67 / 1149.27 -462.60 / -462.60 Lab / Micro Data 11/20/24 05:30 11/20/24 05:30 Labs: Laboratory Results - last 24 hr 11/19/24 12:57: POC Glucose 180 H 11/19/24 18:32: POC Glucose 142 H 11/20/24 05:06: POC Glucose 143 H 11/20/24 05:30: WBC 17.8 H, RBC 3.18 L, Hgb 10.2 L, Hct 28.7 L, MCV 90.3, MCH 32.1 H, MCHC 35.5, RDW Std Deviation 45.4 H, RDW Coeff of Panchito 13.6, Plt Count 192, MPV 9.8, Immature Gran % (Auto) 0.300, Neut % (Auto) 86.5 H, Lymph % (Auto)3.9 L, Sebastian % (Auto) 9.1, Eos % (Auto) 0.0, Baso % (Auto) 0.2, Absolute Neuts (auto) 15.4 H, Absolute Lymphs (auto) 0.70 L, Nucleated RBC % 0, Differential Comment , Toxic Vacuolation 1+, Platelet Estimate ADEQUATE, RBC Morphology NORM C+C, Sodium 134, Potassium 3.9, Chloride 106, Carbon Dioxide 15.2 L, Anion Gap 13, BUN 27 H, Creatinine 1.29 H, Estim Creat Clear Calc 41.43 L, Est GFR (MDRD) Non-Af 47 L, BUN/Creatinine Ratio 20.9 H, Glucose 157 H, Calcium 7.8 Micro: Microbiology 11/19/24 08:25 Nasal Secretion MRSA (PCR) - Final 11/19/24 04:03 Mucosa - Nasopharyngeal Respiratory Panel (PCR) - Final 11/18/24 21:04 Mucosa - Nose SARS-CoV-2, Influenza & RSV (PCR) - Final Radiography Diagnostic Testing: Radiology Impression Echocardiogram 11/19/24 02:04 Interpretation Summary Technically difficult study with suboptimal images. Mild concentric left ventricular hypertrophy. The left ventricular ejection fraction is 65 %. Stage 1 diastolic dysfunction. Ordering Physician: Romeo Khan Referring Physician: LULU SWANSON Performed By: Agnieszka Brenner [facility] Venous Doppler Study 11/19/24 04:21 Interpretation Summary Deep veins of the lower extremities are bilaterally patent and compressible segmentally. There is no evidence of deep vein thrombosis on either side. Valvular competence appears intact within the proximal deep venous systems bilaterally. The great saphenous veins appear bilaterally patent and compressible segmentally. Ordering Physician: Romeo Khan Referring Physician: Lulu Swanson Performed By: Amy Sidhu, T Abdomen CT 11/19/24 15:18 IMPRESSION: 1. Acute colitis from the mid transverse colon through the sigmoid. 2. Mild-moderate ascites, which has increased. Reading Location: [facility] Chest CTA 11/19/24 15:18 IMPRESSION: No pulmonary embolism. 6.8 x 2.4 cm right pectoralis intramuscular hematoma with adjacent fat stranding. Similar in size when accounting for differences in measurement. Trace left pleural effusion. Mild centrilobular and paraseptal emphysema. Prominent mediastinal lymph nodes, largest right paratracheal node measuring 1.1cm in short axis diameter. Stable. Trace perihepatic free fluid. Mild atherosclerosis with coronary artery calcifications. Degenerative changes of the spine with dextroscoliosis. Reading Location: [address] Physical Exam Narrative Seen and examined Patient has right pectoralis muscle hematoma after several unsuccessful attemptson right subclavian vein CVC catheter and then it was inserted on left subclavian vein. Mild tenderness in right subclavian region. Levophed drip is on hold. Earlier, patient admitted with chief complaint of chest pain and shortness of breath and nausea. Chest pain was localized in midsternal, sharp and states that she felt like she could not breathe. No hypoxia. Mild tachypnea. Patient denies abdominal pain. Bowel obstruction was ruled out. She had a large formed brown-colored stool. Had intermittent abdominal pain Physical exam General: Alert, Oriented x3, Cooperative HEENT: Atraumatic, PERRLA, EOMI, Normocephalic. Oral: No Gingival or Mucosal Lesions/ Ulcerations Neck: Supple, No JVD, Negative Carotid Bruits Chest wall/Lungs: Bruise around right subclavian region with needle peres. Air entry diminished in bilateral lung bases. No crepitation/rhonchi Cardiovascular: Sinus rhythm, Normal S1,S2, No M/G/R Abdomen: Bowel Sounds sluggish, Soft, Non Tender, Non-Distended : Aguiar catheter dark urine. No renal angle tenderness. No suprapubic tenderness. Extremities: No edema, Capillary Refill Less than 3 Seconds Skin: No rashes, No breakdown Musculoskeletal: No Tenderness to Palpation of Joints or Extremities Neurological: Cranial nerves II-XII grossly intact, DTR 2+/4. No acute focal neurological deficit. Psych/Mental Status: Normal Affect, Appropriate. Assessment & Plan Assessment/Plan (1) COPD exacerbation: (2) Bronchitis: (3) Acute respiratory failure: QUALIFIERS: Respiratory failure complication: unspecified whether with hypoxia or hypercapnia Qualified Code(s): J96.00 - Acute respiratory failure, unspecified whether with hypoxia or hypercapnia (4) Shock circulatory: (5) Adrenal insufficiency: (6) Severe hypotension: (7) Hypothermia: QUALIFIERS: Encounter type: initial encounter Qualified Code(s): T68.XXXA - Hypothermia, initial encounter (8) Acidosis, lactic: (9) Acquired polycythemia vera: (10) Hypothyroidism: QUALIFIERS: Hypothyroidism type: unspecified Qualified Code(s): E03.9 - Hypothyroidism, unspecified (11) Obesity (BMI 30.0-34.9): (12) NAFLD (nonalcoholic fatty liver disease): (13) Focal active colitis: (14) Duodenitis: (15) Elevated d-dimer: PLAN: Plan This is a 63-year-old female brought by EMS for shortness of breath complaint ofchest pain and nausea and diaphoretic diaphoretic. As per ED physician, she denied chest patient. Complain of nonproductive cough with no history of VTE. Denies leg pain swelling discoloration 1. Acute hypoxic respiratory failure due to acute exacerbation of COPD requiring BiPAP: Chest CTA does not show evidence of PE but chronic fibroemphysematous pulmonary changes with mediastinal lymphadenopathy and soft tissue thickening in bilateral hilar regions, may represent lymphadenopathy or peribronchial infiltrates Empirically started on IV Zosyn. Patient is being managed on scheduled bronchodilator, IV Solu-Medrol, Mucinex, incentive spirometry and Pep. 11/20: Patient currently on room air. No respiratory distress and breathing is on baseline. 2. Undifferentiated Shock most likely hemorrhagic/distributive shock, less septic shock with Severe Hypotension of 72/25 mmHg, Severe Hypothermia of 94.4 ?F, Lactic Acidosis of 3 mmol/L and Leukocytosis of 13.9 K all present on admission: Patient on Levophed drip, to keep MAP more than 65 mmHg through left subclavian CVC catheter inserted in ED. Patient was on RAD hugger to raise core temperature. Most recent temperature 98.1 ?F. Lactic acid still elevated 3.0, 2.1 and 2.7. Echo is ordered. CT shows large right pectoralis muscle hematoma 3.9 x 8.4 x 9.1 cm with secondary mild displacement and edema of the right pectoralis muscle. Mild surrounding soft tissue edema. CT does not show significant consolidation but minimal bilateral basilar atelectatic changes, unchanged emphysema/chronic interstitial thickening and unchanged mildly enlarged mediastinal lymph nodes largest measuring 1.2 cm. Discussed with retirement benefits specialist requesting consult as patient is on IV Levophed drip for shock 11/20: Currently Levophed drip is on hold. Patient was seen by vascular surgeonyesterday and currently not on antiplatelet or antithrombotic agent/DVT prophylaxis because of hematoma as mentioned above 3. Polycythemia with hemoglobin of 18.9 g/dL present on admission (suspected graciela due to combination of chronic tobacco abuse and DENNIS) - Screen for SHONDA-2 mutation. Unclear whether it is true because previous hemoglobin was 13.8/40.5 in July 2020 but it was 18.9/55.1 on 11/18. Most recent 12.6/37.1% today. Patient has leukocytosis 21.4 increased from 13.9 and platelet count normal. 11/20: Hemoglobin dropped further to 10.2/28.7%. Platelet count 192K. Leukocytosis improving. 4. Suspicion of focal sigmoid colitis/ischemic colitis: Discussed with surgeon Dr. Brown on 11/19/[address] images was reviewed with him. CT imaginginitially reported abnormal with abrupt transition of sigmoid colon concerning for possible focal colitis or concern/possible small bowel obstruction. Repeat CT imaging with p.o. and NE contrast showed no evidence of bowel obstruction andno focal narrowing of colon. There was concern of colitis and/or ischemic colitis. Currently on clear liquid. Bowel sound present. Subclinical hypothyroidism: Elevated TSH of 16.9, free T40.9, low normal 5. Obesity (class I); with BMI of 31.2 this admission plus NAFLD adding to the burden of disease outlined from #1 - #4 - Weight loss will be recommended. Thiscomplicates her case and may hamper recovery. 6. DM-2; of unknown control on metformin daily - Keep NPO for now. Hold metformin until further notice with elevated lactate. FSBS q. 6 hours plus lowest- intensity SSI. Check HgbA1c to objectively evaluate quality of diabetic control. 7. Essential hypertension; on lisinopril - Hold scheduled antihypertensives in light of #2. 8. Hyperlipidemia; on atorvastatin - Resume statin when patient can tolerate oral intake. 9. History of bilateral carotid artery stenosis; s/p Right CEA at [facility] (2013) - Noted. 10. PAD - Stable. Lower extremity Doppler ordered as D-dimer was critically high. 12. Schizophrenia and Depression; on thiothixene twice daily, buspirone 3 timesdaily, bupropion twice daily plus imipramine nightly - Hold oral agents at this time. 13. Chronic insomnia; on zolpidem nightly - Noted. 16. GERD; on pantoprazole - Resume PPI IV as outlined in #1. 17. OA; on ibuprofen: Discontinue ketorolac. Hold NSAIDs because of hematoma 18. DVT prophylaxis - hold Lovenox. Pharmacological prophylaxis contraindicated in view of large hematoma and right pectoralis muscle Clinical Impression(s) from Imaging Studies Chest X-Ray 11/18/24 20:50 IMPRESSION: No acute cardiopulmonary disease. Reading Location: [facility] Chest X-Ray 11/18/24 22:34 IMPRESSION: Left subclavian central venous catheter with tip at the lower SVC. Unchanged lung aeration. No pneumothorax or sizable pleural effusion. Reading Location: [facility] Chest CTA 11/18/24 22:41 IMPRESSION: No CT evidence of a pulmonary embolism. Mild chronic fibroemphysematous pulmonary changes, as described above. Mediastinal lymphadenopathy. Soft tissue thickening in the bilateral hilar regions may represent hilar lymphadenopathy or peribronchial infiltrates. Please correlate clinically for bronchitis. Moderate thoracic spondylosis with mild dextro convex scoliosis. Reading Location: [id number] Abdomen/Pelvis CT 11/19/24 00:03 IMPRESSION: 1. Abrupt narrowing of the proximal sigmoid colon with a short segment of wall thickening. This could represent focal colitis or a mucosal mass lesion. 2. Mild wall thickening of the duodenum with mild adjacent fat stranding, concerning for duodenitis. 3. Mild dilatation of the large and small bowel proximal to the focal narrowingin the proximal sigmoid colon, which could represent a low-grade partial small bowel obstruction. 4. Large amount of stool within the distal sigmoid colon and rectum. 5. Small hiatal hernia. 6. Moderate to severe thoracolumbar spondylosis with mild lumbar scoliosis. Reading Location: [id number] Echocardiogram 11/19/24 02:04 Interpretation Summary Technically difficult study with suboptimal images. Mild concentric left ventricular hypertrophy. The left ventricular ejection fraction is 65 %. Stage 1 diastolic dysfunction. Ordering Physician: Romeo Khan Referring Physician: LULU SWANSON Performed By: Agnieszka Brenner RCS Chest CT 11/19/24 03:46 IMPRESSION: Coronary artery calcification (CAC) is is present Acute soft tissue hematoma is noted underlying the right pectoralis muscle in the interim measuring 3.9 x 8.4 x 9.1 cm in its largest anteroposterior, transverse and craniocaudal dimensions respectively. Secondary mild displacement and edema of the right pectoralis muscle. Mild surrounding soft tissue edema. Unchanged mild bilateral basilar pleural thickening/effusions. Unchanged minimal bilateral basilar atelectatic pulmonary changes. Unchanged emphysema/chronic interstitial thickening. Unchanged mildly enlarged mediastinal lymph nodes with the largest measuring 1.2cm. Chronic deformity of the axillary portion of the right 6th rib, unchanged. Reading Location: [facility] Charges/Coding Visit Charges Inpatient E&M: 96071 Subs Hosp L3 11/20/24 0834 <Electronically signed by Kenny Pompa MD> Cosigner Signature (if applicable): CC: ~ Signed [facility] Work Phone: [phone] Progress note Author Ej Brown [facility] Note Date/Time November 20, 2024 8 :28am [facility] Medical Records Department [address] [place] [address] [place] [address] Progress Note - Surgery 11/20/24822 MR#: [id number] Acct: [id number] Name: DAVID ALDRICH Rep #:[id number] : 1960 64 From: Ej Munguia PCP: CB Landaverde Status:ADM I N Location: ICU CVICU20 3-1 Subjective Subjective Patient seen and examined during AM rounds. She is found resting in bed. She denies any nausea and confirms she tolerated her diet well. She does denied appetite at present. She confirms she still is experiencing bowel movements andreports them to be loose in character. She wishes to know when she will be eligible for discharge to home. Objective Data Objective Data Vital Signs: Vital Signs Temp Pulse Resp BP Pulse Ox O2 Del Method O2 Flow Rate 99 F 98 27 H 126/58 H 97 Room Air 2 11/20/24 04:00 11/20/24 07:00 11/20/24 07:00 11/20/24 07:00 11/20/24 07:00 11/20/24 07:00 11/18/24 22:45 FiO2 28 11/18/24 21:15 Oxygen Flow Rate (L/min) 2 Oxygen Delivery Method Room Air Weight: 166 lb 0.129 oz Body Mass Index (BMI) 31.3 Intake & Output: Intake and Output for Last 24 Hours 11/18/24 11/19/24 11/20/24 23:59 23:59 23:59 Intake Total 3034.55 / 3034.55 3168.67 / 3174.27 87.40 / 87.40 Output Total 2024 550 / 550 Balance 3034.55 / 3034.55 1143.67 / 1149.27 -462.60 / -462.60 Lab / Micro Data 11/20/24 05:30 11/20/24 05:30 Labs: Laboratory Results - last 24 hr 11/19/24 12:57: POC Glucose 180 H 11/19/24 18:32: POC Glucose 142 H 11/20/24 05:06: POC Glucose 143 H 11/20/24 05:30: WBC 17.8 H, RBC 3.18 L, Hgb 10.2 L, Hct 28.7 L, MCV 90.3, MCH 32.1 H, MCHC 35.5, RDW Std Deviation 45.4 H, RDW Coeff of Panchito 13.6, Plt Count 192, MPV 9.8, Immature Gran % (Auto) 0.300, Neut % (Auto) 86.5 H, Lymph % (Auto)3.9 L, Sebastian % (Auto) 9.1, Eos % (Auto) 0.0, Baso % (Auto) 0.2, Absolute Neuts (auto) 15.4 H, Absolute Lymphs (auto) 0.70 L, Nucleated RBC % 0, Differential Comment , Toxic Vacuolation 1+, Platelet Estimate ADEQUATE, RBC Morphology NORM C+C, Sodium 134, Potassium 3.9, Chloride 106, Carbon Dioxide 15.2 L, Anion Gap 13, BUN 27 H, Creatinine 1.29 H, Estim Creat Clear Calc 41.43 L, Est GFR (MDRD) Non-Af 47 L, BUN/Creatinine Ratio 20.9 H, Glucose 157 H, Calcium 7.8 Micro: Microbiology 11/19/24 08:25 Nasal Secretion MRSA (PCR) - Final 11/19/24 04:03 Mucosa - Nasopharyngeal Respiratory Panel (PCR) - Final 11/18/24 21:04 Mucosa - Nose SARS-CoV-2, Influenza & RSV (PCR) - Final Radiography Diagnostic Testing: Radiology Impression Echocardiogram 11/19/24 02:04 Interpretation Summary Technically difficult study with suboptimal images. Mild concentric left ventricular hypertrophy. The left ventricular ejection fraction is 65 %. Stage 1 diastolic dysfunction. Ordering Physician: Romeo Khan Referring Physician: LULU SWANSON Performed By: Agnieszka Brenner RCS Venous Doppler Study 11/19/24 04:21 Interpretation Summary Deep veins of the lower extremities are bilaterally patent and compressible segmentally. There is no evidence of deep vein thrombosis on either side. Valvular competence appears intact within the proximal deep venous systems bilaterally. The great saphenous veins appear bilaterally patent and compressible segmentally. Ordering Physician: Romeo Khan Referring Physician: Lulu Swanson Performed By: Amy Sidhu RVT Abdomen CT 11/19/24 15:18 IMPRESSION: 1. Acute colitis from the mid transverse colon through the sigmoid. 2. Mild-moderate ascites, which has increased. Reading Location: [facility] Chest CTA 11/19/24 15:18 IMPRESSION: No pulmonary embolism. 6.8 x 2.4 cm right pectoralis intramuscular hematoma with adjacent fat stranding. Similar in size when accounting for differences in measurement. Trace left pleural effusion. Mild centrilobular and paraseptal emphysema. Prominent mediastinal lymph nodes, largest right paratracheal node measuring 1.1cm in short axis diameter. Stable. Trace perihepatic free fluid. Mild atherosclerosis with coronary artery calcifications. Degenerative changes of the spine with dextroscoliosis. Reading Location: [address] Physical Exam Const oriented x3 and no apparent distress GI GI Narrative: Decreased abdominal distention, softer, minimal tenderness to palpation in upperabdominal quadrants. Mild tenderness palpation lower abdominal quadrants. Assessment & Plan Assessment/Plan (1) Abnormal CT scan, colon: PLAN: Patient is 64-year-old female admitted to the ICU 2 days ago with concern for sepsis after a presentation with chest pain and significant shortness of breath. Additionally, CT imaging was completed showing concern for possible small bowel obstruction as well as a "abrupt" transition of the sigmoid colon concerning for possible "focal colitis". Repeat CT imaging with enteral contrast (both p.o. and NE) yesterday showed no evidence of bowel obstruction and no focal narrowing of the colon. However, didconfirm generalized appearance of colitis. Based on the distribution of the wall thickening and patient's presentation I am suspicious for an ischemic etiology. Since her admission patient's blood pressure has been stable as normal. She tolerated a diet advanced to clear liquids yesterday and her abdominal exam is improved today. She does describe some shifting tenderness which I believed to be more related to her stool burden. Given her clinical improvement recommend advance to transitional diet. Additionally counseled patient about the risks she is taking on with her continued tobacco habit and advised her to be more vigilant to her hydration status. Patient confirmed understanding of this information. Ej Brown MD General Surgery Endocrine Surgery Pager: [facility] [address] [place] [address], [facility], [address] [place] [address] Office: [phone] Charges/Coding Visit Charges Inpatient E&M: 59234 Subs Hosp L2 11/20/24 0828 <Electronically signed by Ej Brown MD> Cosigner Signature (if applicable): CC: ~ Signed [facility] Work Phone: 1([phone]) 505-608510-11-2025 Progress note [facility] Medical Records Department [address] [place], [place] [id number] Progress Note - Hospitalist 11/19/24 1413 MR#: [id number] Acct: [id number] Name: DAVID ALDRICH Rep #:[id number] : 1960 64 From: Kenny Munguia PCP: Lulu Swanson NP-C Status:ADM I N Location: ICU CVICU 3-1 Reason for Visit Chief Complaint: SOB, Wheezing and Diaphoresis. Objective Data Objective Data Vital Signs: Vital Signs Temp Pulse Resp BP Pulse Ox O2 Del Method O2 Flow Rate 98.1 F 89 18 90/43 L 95 Room Air 2 11/19/24 02:04 11/19/24 05:00 11/19/24 05:00 11/19/24 05:00 11/19/24 05:00 11/19/24 04:00 11/18/24 22:45 FiO2 28 11/18/24 21:15 Oxygen Flow Rate (L/min) 2 Oxygen Delivery Method Room Air Weight: 163 lb 9.328 oz Body Mass Index (BMI) 30.9 Intake & Output: Intake and Output for Last 24 Hours 11/17/24 11/18/24 11/19/24 23:59 23:59 23:59 Intake Total 3034.55 / 3034.55 474.82 / 474.82 Output Total 475 / 475 Balance 3034.55 / 3034.55 -0.18 / -0.18 Lab / Micro Data 11/19/24 07:04 11/19/24 07:04 Labs: Laboratory Results - last 24 hr 11/18/24 21:00: WBC 13.9 H, RBC 6.01 H, Hgb 18.9 H*, Hct 55.1 H, MCV 91.7, MCH 31.4, MCHC 34.3, RDWStd Deviation 44.1 H, RDW Coeff of Panchito 13.0, Plt Count 390,MPV 10.6, Immature Gran % (Auto) 0.800, Neut % (Auto) 55.3, Lymph % (Auto) 35.6,Sebastian % (Auto) 4.5, Eos % (Auto) 2.9, Baso % (Auto) 0.9, Absolute Neuts (auto) 7.7, Absolute Lymphs (auto) 4.95 H, Nucleated RBC % 0, PT 15.7 H, INR 1.2, APTT 32.1, Sodium 134, Potassium 4.0, Chloride 98, Carbon Dioxide 17.7 L, Anion Gap 18 H, BUN 17, Creatinine 1.36 H, Estim Creat Clear Calc 39.22 L, Est GFR (MDRD) Non-Af 44 L, BUN/Creatinine Ratio 12.4, Glucose 316 H, Calcium 10.0, Total Bilirubin 0.53, AST 64 H, ALT 38 H, Alkaline Phosphatase 115 H, Troponin T High Sens 11, Total Protein 6.8, Albumin 3.9, Globulin 2.9, Albumin/Globulin Ratio 1.3, b-Hydroxybutyric mmol/L 0.2, TSH 16.900 H, Cortisol PM Sample 35.80 H 11/18/24 21:08: Lactic Acid 3.0 H* 11/18/24 21:42: Urine Color Yellow, Urine Clarity Clear, Urine pH 6.0, Ur Specific [place] 1.015, Urine Protein 100 H, Urine Glucose (UA) Normal, Urine Ketones Negative, Urine Occult Blood 10 H, Urine Nitrite Negative, Urine Bilirubin 6 H, Urine Urobilinogen Normal, Ur Leukocyte Esterase 25 H, Urine RBC 0-5 SEEN, Urine WBC 0-5 SEEN, Ur Squamous Epith Cells 0-5 SEEN, Urine Bacteria 0SEEN, Urine Mucus 0 SEEN 11/18/24 23:16: Troponin T Hi Sens 2 Hr 15 H 11/19/24 01:24: Troponin T Hi Sens 4Hr 22 H 11/19/24 02:10: D-Dimer Quant (PE/DVT) > 20.00 H*, Hemoglobin A1c 6.1 H, Lactic Acid 2.1 H*, Magnesium 2.6 H, Free T4 0.90, Free T3 pg/dL 2.4 11/19/24 07:04: WBC 21.4 H, RBC 4.00 L, Hgb 12.6, Hct 37.1, MCV 92.8, MCH 31.5, MCHC 34.0, RDW Std Deviation 45.2 H, RDW Coeff of Panchito 13.2, Plt Count 276, MPV 9.7, Immature Gran % (Auto) 0.600, Neut % (Auto) 90.7 H, Lymph % (Auto) 3.5 L, Sebastian % (Auto) 4.9, Eos % (Auto) 0.1, Baso % (Auto) 0.2, Absolute Neuts (auto) 19.5 H, Absolute Lymphs (auto) 0.75 L, Nucleated RBC % 0 Micro: Microbiology 11/18/24 21:04 Mucosa - Nose SARS-CoV-2, Influenza & RSV (PCR) - Final ABG Data ABG results: ABG 11/18/24 11/19/24 21:07 04:24 Specimen Type ART ART Sample Site L Radial L Radial pH 7.30 L 7.30 L Bicarbonate Actual 13.1 L 14.9 L Total CO2 14 16 Base Excess -13 L -12 L O2 Saturation 100 H 95 O2 % 6.0 ABG pCO2 26.6 L 30.4 L ABG pO2 504 H* 81 Nayana Test N/A Positive O2 Delivery Device Cannula Room Air Vent Mode Not entered Not entered Crit Call To/Read Back Yes Blood Gas Notified Whom Dr Marques Blood Gas Notified Time 21:09:37 Radiography Diagnostic Testing: Radiology Impression Chest X-Ray 11/18/24 20:50 IMPRESSION: No acute cardiopulmonary disease. Reading Location: [facility] Chest X-Ray 11/18/24 22:34 IMPRESSION: Left subclavian central venous catheter with tip at the lower SVC. Unchanged lung aeration. No pneumothorax or sizable pleural effusion. Reading Location: [facility] Chest CTA 11/18/24 22:41 IMPRESSION: No CT evidence of a pulmonary embolism. Mild chronic fibroemphysematous pulmonary changes, as described above. Mediastinal lymphadenopathy. Soft tissue thickening in the bilateral hilar regions may represent hilar lymphadenopathy or peribronchial infiltrates. Please correlate clinically for bronchitis. Moderate thoracic spondylosis with mild dextro convex scoliosis. Reading Location: [facility] Abdomen/Pelvis CT 11/19/24 00:03 IMPRESSION: 1. Abrupt narrowing of the proximal sigmoid colon with a short segment of wall thickening. This could represent focal colitis or a mucosal mass lesion. 2. Mild wall thickening of the duodenum with mild adjacent fat stranding, concerning for duodenitis. 3. Mild dilatation of the large and small bowel proximal to the focal narrowingin the proximal sigmoid colon, which could represent a low-grade partial small bowel obstruction. 4. Large amount of stool within the distal sigmoid colon and rectum. 5. Small hiatal hernia. 6. Moderate to severe thoracolumbar spondylosis with mild lumbar scoliosis. Reading Location: [facility] Chest CT 11/19/24 03:46 IMPRESSION: Coronary artery calcification (CAC) is is present Acute soft tissue hematoma is noted underlying the right pectoralis muscle in the interim measuring3.9 x 8.4 x 9.1 cm in its largest anteroposterior, transverse and craniocaudal dimensions respectively. Secondary mild displacement and edema of the right pectoralis muscle. Mild surrounding soft tissue edema. Unchanged mild bilateral basilar pleural thickening/effusions. Unchanged minimal bilateral basilar atelectatic pulmonary changes. Unchanged emphysema/chronic interstitial thickening. Unchanged mildly enlarged mediastinal lymph nodes with the largest measuring 1.2cm. Chronic deformity of the axillary portion of the right 6th rib, unchanged. Reading Location: [place] [address] Physical Exam Narrative Seen and examined Patient admitted with chief complaint of chest pain and shortness of breath and nausea. Chest pain was localized in midsternal, sharp and states that she felt like she could not breathe. Currently 97% on room air. Patient denies abdominal pain. She had a large formed brown-colored stool. Intermittent abdominal pain Physical exam General: Alert, Oriented x3, Cooperative HEENT: Atraumatic, PERRLA, EOMI, Normocephalic. Oral: No Gingival or Mucosal Lesions/ Ulcerations Neck: Supple, No JVD, Negative Carotid Bruits Chest wall/Lungs: Air entry diminished in bilateral lung bases. No crepitation/rhonchi Cardiovascular: Sinus rhythm, Normal S1,S2, No M/G/R Abdomen: Bowel Sounds sluggish, Soft, Non Tender, Non-Distended : No dysuria. No renal angle tenderness. No suprapubic tenderness. Extremities: No edema, Capillary Refill Less than 3 Seconds Skin: No rashes, No breakdown Musculoskeletal: No Tenderness to Palpation of Joints or Extremities Neurological: Cranial nerves II-XII grossly intact, DTR 2+/4. No acute focal neurological deficit. Psych/Mental Status: Normal Affect, Appropriate. Assessment & Plan Assessment/Plan (1) COPD exacerbation: (2) Bronchitis: (3) Acute respiratory failure: QUALIFIERS: Respiratory failure complication: unspecified whether with hypoxia or hypercapnia Qualified Code(s): J96.00 - Acute respiratory failure, unspecified whether with hypoxia or hypercapnia (4) Shock circulatory: (5) Adrenal insufficiency: (6) Severe hypotension: (7) Hypothermia: QUALIFIERS: Encounter type: initial encounter Qualified Code(s): T68.XXXA - Hypothermia, initial encounter (8) Acidosis, lactic: (9) Acquired polycythemia vera: (10) Hypothyroidism: QUALIFIERS: Hypothyroidism type: unspecified Qualified Code(s): E03.9 - Hypothyroidism, unspecified (11) Obesity (BMI 30.0-34.9): (12) NAFLD (nonalcoholic fatty liver disease): (13) Focal active colitis: (14) Duodenitis: (15) Elevated d-dimer: PLAN: Plan This is a 63-year-old female brought by EMS for shortness of breath complaint ofchest pain and nausea and diaphoretic diaphoretic. As per ED physician, she denied chest patient. Complain of nonproductive cough with no history of VTE. Denies leg pain swelling discoloration 1. Acute hypoxic respiratory failure due to acute exacerbation of COPD requiring BiPAP: Chest CTA does not show evidence of PE but chronic fibroemphysematous pulmonary changes with mediastinal lymphadenopathy and soft tissue thickening in bilateral hilar regions, may represent lymphadenopathy or peribronchial infiltrates Empirically started on IV Zosyn. Patient is being managed on scheduled bronchodilator, IV Solu-Medrol, Mucinex, incentive spirometry and Pep.. 2. Undifferentiated Shock most likely hemorrhagic/distributive shock, less septic shock with SevereHypotension of 72/25 mmHg, Severe Hypothermia of 94.4 ?F, Lactic Acidosis of 3 mmol/L and Leukocytosis of 13.9 K all present on admission: Patient on Levophed drip, to keep MAP more than 65 mmHg through left subclavian CVC catheter inserted in ED. Patient was on RAD hugger to raise core temperature. Most recent temperature 98.1 ?F. Lactic acid still elevated 3.0, 2.1 and 2.7. Echo is ordered. CTshows large right pectoralis muscle hematoma 3.9 x 8.4 x 9.1 cm with secondary mild displacement and edema of the right pectoralis muscle. Mild surrounding soft tissue edema. CT does not show signific ant consolidation but minimal bilateral basilar atelectatic changes, unchanged emphysema/chronic interstitial thickening and unchanged mildly enlarged mediastinal lymph nodes largest measuring 1.2 cm. Discussed with retirement benefits specialist requesting consult as patient is on IV Levophed drip for shock 3. Polycythemia with hemoglobin of 18.9 g/dL present on admission (suspected graciela due to combination of chronic tobacco abuse and DENNIS) compounding #1 & #2 - Screen for SHONDA-2 mutation. Unclear whether it is true because previous hemoglobin was 13.8/40.5 in July 2020 but it was 18.9/55.1 on 11/18. Most recent 12.6/37.1% today. Patient has leukocytosis 21.4 increased from 13.9 and platelet count normal. 4. Subclinical hypothyroidism: Elevated TSH of 16.9, free T40.9, low normal 5. Obesity (class I); with BMI of 31.2 this admission plus NAFLD adding to the burden of disease outlined from #1 - #4 - Weight loss will be recommended. Thiscomplicates her case and may hamper recovery. 6. DM-2; of unknown control on metformin daily - Keep NPO for now. Hold metformin until further notice with elevated lactate. FSBS q. 6 hours plus lowest-intensity SSI. Check HgbA1c to objectively evaluate quality of diabetic control. 7. Essential hypertension; on lisinopril - Hold scheduled antihypertensives in light of #2. 8. Hyperlipidemia; on atorvastatin - Resume statin when patient can tolerate oral intake. 9. History of bilateral carotid artery stenosis; s/p Right CEA at [facility] (2012) - Noted. 10. PAD - Stable. Lower extremity Doppler ordered as D-dimer was critically high. 12. Schizophrenia and Depression; on thiothixene twice daily, buspirone 3 timesdaily, bupropion twice daily plus imipramine nightly - Hold oral agents at this time. 13. Chronic insomnia; on zolpidem nightly - Noted. 16. GERD; on pantoprazole - Resume PPI IV as outlined in #1. 17. OA; on ibuprofen: Discontinue ketorolac. Hold NSAIDs because of hematoma 18. DVT prophylaxis - hold Lovenox. Pharmacological prophylaxis contraindicated in view of large hematoma and right pectoralis muscle Clinical Impression(s) from Imaging Studies Chest X-Ray 11/18/24 20:50 IMPRESSION: No acute cardiopulmonary disease. Reading Location: [facility] Chest X-Ray 11/18/24 22:34 IMPRESSION: Left subclavian central venous catheter with tip at the lower SVC. Unchanged lung aeration. No pneumothorax or sizable pleural effusion. Reading Location: [facility] Chest CTA 11/18/24 22:41 IMPRESSION: No CT evidence of a pulmonary embolism. Mild chronic fibroemphysematous pulmonary changes, as described above. Mediastinal lymphadenopathy. Soft tissue thickening in the bilateral hilar regions may represent hilar lymphadenopathy or peribronchial infiltrates. Please correlate clinically for bronchitis. Moderate thoracic spondylosis with mild dextro convex scoliosis. Reading Location: [facility] Abdomen/Pelvis CT 11/19/24 00:03 IMPRESSION: 1. Abrupt narrowing of the proximal sigmoid colon with a short segment of wall thickening. This could represent focal colitis or a mucosal mass lesion. 2. Mild wall thickening of the duodenum with mild adjacent fat stranding, concerning for duodenitis. 3. Mild dilatation of the large and small bowel proximal to the focal narrowingin the proximal sigmoid colon, which could represent a low-grade partial small bowel obstruction. 4. Large amount of stool within the distal sigmoid colon and rectum. 5. Small hiatal hernia. 6. Moderate to severe thoracolumbar spondylosis with mild lumbar scoliosis. Reading Location: [facility] Echocardiogram 11/19/24 02:04 Interpretation Summary Technically difficult study with suboptimal images. Mild concentric left ventricular hypertrophy. The left ventricular ejection fraction is 65 %. Stage 1 diastolic dysfunction. Ordering Physician: Rmoeo Khan Referring Physician: LULU SWANSON Performed By: Agnieszka Brenner RCS Chest CT 11/19/24 03:46 IMPRESSION: Coronary artery calcification (CAC) is is present Acute soft tissue hematoma is noted underlying the right pectoralis muscle in the interim measuring3.9 x 8.4 x 9.1 cm in its largest anteroposterior, transverse and craniocaudal dimensions respectively. Secondary mild displacement and edema of the right pectoralis muscle. Mild surrounding soft tissue edema. Unchanged mild bilateral basilar pleural thickening/effusions. Unchanged minimal bilateral basilar atelectatic pulmonary changes. Unchanged emphysema/chronic interstitial thickening. Unchanged mildly enlarged mediastinal lymph nodes with the largest measuring 1.2cm. Chronic deformity of the axillary portion of the right 6th rib, unchanged. Reading Location: [place] [address] Charges/Coding Visit Charges Inpatient E&M: 45115 Subs Hosp L3 11/19/24 1413 Cosigner Signature (if applicable): CC: ~ Signed ADDENDUM by Dr. Kenny Pompa MD on 11/20/24 at 0836 Addendum Suspicion of focal sigmoid colitis/ischemic colitis: Discussed with surgeon Dr. Brown. Initial and then repeat CT abdomen and pelvis images with p.o. and per rectal was reviewed with him. CT imaging initially reported abnormal with abrupt transition of sigmoid colon concerning for possible focal colitis or concern/possible small bowel obstruction. Repeat CT imaging with p.o. and NE contrast showed no evidence of bowel obstruction and no focal narrowing of colon. There was concern of colitis and/or ischemic colitis. 11/20/24 0836 Cosigner Signature (if applicable): cc: ~* Signed [facility]10-11-2025 Progress note [facility] Medical Records Department [address] [place] [address] Progress Note - Hospitalist 11/20/24 0824 MR#: [id number] Acct: [id number] Name: DAVID ALDRICH Rep #:[id number] : 1960 64 From: Kenny Munguia PCP: CB Landaverde Status:ADM I N Location: ICU CVICU 3-1 Reason for Visit Chief Complaint: SOB, Wheezing and Diaphoresis. Objective Data Objective Data Vital Signs: Vital Signs Temp Pulse Resp BP Pulse Ox O2 Del Method O2 Flow Rate 99 F 98 27 H 126/58 H 97 Room Air 2 11/20/24 04:00 11/20/24 07:00 11/20/24 07:00 11/20/24 07:00 11/20/24 07:00 11/20/24 07:00 11/18/24 22:45 FiO2 28 11/18/24 21:15 Oxygen Flow Rate (L/min) 2 Oxygen Delivery Method Room Air Weight: 166 lb 0.129 oz Body Mass Index (BMI) 31.3 Intake & Output: Intake and Output for Last 24 Hours 11/18/24 11/19/2425 23:59 23:59 23:59 Intake Total 3034.55 / 3034.55 3168.67 / 3174.27 87.40 / 87.40 Output Total 2024 550 / 550 Balance 3034.55 / 3034.55 1143.67 / 1149.27 -462.60 / -462.60 Lab / Micro Data 11/20/24 05:30 11/20/24 05:30 Labs: Laboratory Results - last 24 hr 11/19/24 12:57: POC Glucose 180 H 11/19/24 18:32: POC Glucose 142 H 11/20/24 05:06: POC Glucose 143 H 11/20/24 05:30: WBC 17.8 H, RBC 3.18 L, Hgb 10.2 L, Hct 28.7 L, MCV 90.3, MCH 32.1 H, MCHC 35.5, RDW Std Deviation 45.4 H, RDW Coeff of Panchito 13.6, Plt Count 192, MPV 9.8, Immature Gran % (Auto) 0.300,Neut % (Auto) 86.5 H, Lymph % (Auto)3.9 L, Sebastian % (Auto) 9.1, Eos % (Auto) 0.0, Baso % (Auto) 0.2, Absolute Neuts (auto) 15.4 H, Absolute Lymphs (auto) 0.70 L, Nucleated RBC % 0, Differential Comment, Toxic Vacuolation 1+, Platelet Estimate ADEQUATE, RBC Morphology NORM C+C, Sodium 134, Potassium 3.9, Chloride 106, Carbon Dioxide 15.2 L, Anion Gap 13, BUN 27 H, Creatinine 1.29 H, Estim Creat Clear Calc 41.43 L, Est GFR (MDRD) Non-Af 47 L, BUN/Creatinine Ratio 20.9 H, Glucose 157 H, Calcium 7.8 Micro: Microbiology 11/19/24 08:25 Nasal Secretion MRSA (PCR) - Final 11/19/24 04:03 Mucosa - Nasopharyngeal Respiratory Panel (PCR) - Final 11/18/24 21:04 Mucosa - Nose SARS-CoV-2, Influenza & RSV (PCR) - Final Radiography Diagnostic Testing: Radiology Impression Echocardiogram 11/19/24 02:04 Interpretation Summary Technically difficult study with suboptimal images. Mild concentric left ventricular hypertrophy. The left ventricular ejection fraction is 65 %. Stage 1 diastolic dysfunction. Ordering Physician: Romeo Khan Referring Physician: LULU SWANSON Performed By: Agnieszka Brenner [facility] Venous Doppler Study 11/19/24 04:21 Interpretation Summary Deep veins of the lower extremities are bilaterally patent and compressible segmentally. There is no evidence of deep vein thrombosis on either side. Valvular competence appears intact within the proximal deep venous systems bilaterally. The great saphenous veins appear bilaterally patent and compressible segmentally. Ordering Physician: Romeo Khan Referring Physician: Lulu Swanson Performed By: Amy Sidhu Oliver Abdomen CT 11/19/24 15:18 IMPRESSION: 1. Acute colitis from the mid transverse colon through the sigmoid. 2. Mild-moderate ascites, which has increased. Reading Location: [facility] Chest CTA 11/19/24 15:18 IMPRESSION: No pulmonary embolism. 6.8 x 2.4 cm right pectoralis intramuscular hematoma with adjacent fat stranding. Similar in size when accounting for differences in measurement. Trace left pleural effusion. Mild centrilobular and paraseptal emphysema. Prominent mediastinal lymph nodes, largest right paratracheal node measuring 1.1cm in short axis diameter. Stable. Trace perihepatic free fluid. Mild atherosclerosis with coronary artery calcifications. Degenerative changes of the spine with dextroscoliosis. Reading Location: [address] Physical Exam Narrative Seen and examined Patient has right pectoralis muscle hematoma after several unsuccessful attemptson right subclavianvein CVC catheter and then it was inserted on left subclavian vein. Mild tenderness in right subclavian region. Levophed drip is on hold. Earlier, patient admitted with chief complaint of chest pain and shortness of breath and nausea. Chest pain was localized in midsternal, sharp and states that she felt like she could not breathe. No hypoxia. Mild tachypnea. Patient denies abdominal pain. Bowel obstruction was ruled out. She hada large formed brown-colored stool. Had intermittent abdominal pain Physical exam General: Alert, Oriented x3, Cooperative HEENT: Atraumatic, PERRLA, EOMI, Normocephalic. Oral: No Gingival or Mucosal Lesions/ Ulcerations Neck: Supple, No JVD, Negative Carotid Bruits Chest wall/Lungs: Bruise around right subclavian region with needle peres. Air entry diminished in bilateral lung bases. No crepitation/rhonchi Cardiovascular: Sinus rhythm, Normal S1,S2, No M/G/R Abdomen: Bowel Sounds sluggish, Soft, Non Tender, Non-Distended : Aguiar catheter dark urine. No renal angle tenderness. No suprapubic tenderness. Extremities: No edema, Capillary Refill Less than 3 Seconds Skin: No rashes, No breakdown Musculoskeletal: No Tenderness to Palpation of Joints or Extremities Neurological: Cranial nerves II-XII grossly intact, DTR 2+/4. No acute focal neurological deficit. Psych/Mental Status: Normal Affect, Appropriate. Assessment & Plan Assessment/Plan (1) COPD exacerbation: (2) Bronchitis: (3) Acute respiratory failure: QUALIFIERS: Respiratory failure complication: unspecified whether with hypoxia or hypercapnia Qualified Code(s): J96.00 - Acute respiratory failure, unspecified whether with hypoxia or hypercapnia (4) Shock circulatory: (5) Adrenal insufficiency: (6) Severe hypotension: (7) Hypothermia: QUALIFIERS: Encounter type: initial encounter Qualified Code(s): T68.XXXA - Hypothermia, initial encounter (8) Acidosis, lactic: (9) Acquired polycythemia vera: (10) Hypothyroidism: QUALIFIERS: Hypothyroidism type: unspecified Qualified Code(s): E03.9 - Hypothyroidism, unspecified (11) Obesity (BMI 30.0-34.9): (12) NAFLD (nonalcoholic fatty liver disease): (13) Focal active colitis: (14) Duodenitis: (15) Elevated d-dimer: PLAN: Plan This is a 63-year-old female brought by EMS for shortness of breath complaint ofchest pain and nausea and diaphoretic diaphoretic. As per ED physician, she denied chest patient. Complain of nonproductive cough with no history of VTE. Denies leg pain swelling discoloration 1. Acute hypoxic respiratory failure due to acute exacerbation of COPD requiring BiPAP: Chest CTA does not show evidence of PE but chronic fibroemphysematous pulmonary changes with mediastinal lymphadenopathy and soft tissue thickening in bilateral hilar regions, may represent lymphadenopathy or peribronchial infiltrates Empirically started on IV Zosyn. Patient is being managed on scheduled bronchodilator, IV Solu-Medrol, Mucinex, incentive spirometry and Pep. 11/20: Patient currently on room air. No respiratory distress and breathing is on baseline. 2. Undifferentiated Shock most likely hemorrhagic/distributive shock, less septic shock with SevereHypotension of 72/25 mmHg, Severe Hypothermia of 94.4 ?F, Lactic Acidosis of 3 mmol/L and Leukocytosis of 13.9 K all present on admission: Patient on Levophed drip, to keep MAP more than 65 mmHg through left subclavian CVC catheter inserted in ED. Patient was on RAD hugger to raise core temperature. Most recent temperature 98.1 ?F. Lactic acid still elevated 3.0, 2.1 and 2.7. Echo is ordered. CTshows large right pectoralis muscle hematoma 3.9 x 8.4 x 9.1 cm with secondary mild displacement and edema of the right pectoralis muscle. Mild surrounding soft tissue edema. CT does not show signific ant consolidation but minimal bilateral basilar atelectatic changes, unchanged emphysema/chronic interstitial thickening and unchanged mildly enlarged mediastinal lymph nodes largest measuring 1.2 cm. Discussed with retirement benefits specialist requesting consult as patient is on IV Levophed drip for shock 11/20: Currently Levophed drip is on hold. Patient was seen by vascular surgeonyesterday and currently not on antiplatelet or antithrombotic agent/DVT prophylaxis because of hematoma as mentioned above 3. Polycythemia with hemoglobin of 18.9 g/dL present on admission (suspected graciela due to combination of chronic tobacco abuse and DENNIS) - Screen for SHONDA-2 mutation. Unclear whether it is true because previous hemoglobin was 13.8/40.5 in July 2020 but it was 18.9/55.1 on 11/18. Most recent 12.6/37.1% today. Patient has leukocytosis 21.4 increased from 13.9 and platelet count normal. 11/20: Hemoglobin dropped further to 10.2/28.7%. Platelet count 192K. Leukocytosis improving. 4. Suspicion of focal sigmoid colitis/ischemic colitis: Discussed with surgeon Dr. Brown on 11/19/[address] images was reviewed with him. CT imaginginitially reported abnormal with abrupt transition of sigmoid colon concerning for possible focal colitis or concern/possible small bowel obstr uction. Repeat CT imaging with p.o. and NE contrast showed no evidence of bowel obstruction andno focal narrowing of colon. There was concern of colitis and/or ischemic colitis. Currently on clear liquid. Bowel sound present. Subclinical hypothyroidism: Elevated TSH of 16.9, free T40.9, low normal 5. Obesity (class I); with BMI of 31.2 this admission plus NAFLD adding to the burden of disease outlined from #1 - #4 - Weight loss will be recommended. Thiscomplicates her case and may hamper recovery. 6. DM-2; of unknown control on metformin daily - Keep NPO for now. Hold metformin until further notice with elevated lactate. FSBS q. 6 hours plus lowest-intensity SSI. Check HgbA1c to objectively evaluate quality of diabetic control. 7. Essential hypertension; on lisinopril - Hold scheduled antihypertensives in light of #2. 8. Hyperlipidemia; on atorvastatin - Resume statin when patient can tolerate oral intake. 9. History of bilateral carotid artery stenosis; s/p Right CEA at [facility] (2012) - Noted. 10. PAD - Stable. Lower extremity Doppler ordered as D-dimer was critically high. 12. Schizophrenia and Depression; on thiothixene twice daily, buspirone 3 timesdaily, bupropion twice daily plus imipramine nightly - Hold oral agents at this time. 13. Chronic insomnia; on zolpidem nightly - Noted. 16. GERD; on pantoprazole - Resume PPI IV as outlined in #1. 17. OA; on ibuprofen: Discontinue ketorolac. Hold NSAIDs because of hematoma 18. DVT prophylaxis - hold Lovenox. Pharmacological prophylaxis contraindicated in view of large hematoma and right pectoralis muscle Clinical Impression(s) from Imaging Studies Chest X-Ray 11/18/24 20:50 IMPRESSION: No acute cardiopulmonary disease. Reading Location: [facility] Chest X-Ray 11/18/24 22:34 IMPRESSION: Left subclavian central venous catheter with tip at the lower SVC. Unchanged lung aeration. No pneumothorax or sizable pleural effusion. Reading Location: [facility] Chest CTA 11/18/24 22:41 IMPRESSION: No CT evidence of a pulmonary embolism. Mild chronic fibroemphysematous pulmonary changes, as described above. Mediastinal lymphadenopathy. Soft tissue thickening in the bilateral hilar regions may represent hilar lymphadenopathy or peribronchial infiltrates. Please correlate clinically for bronchitis. Moderate thoracic spondylosis with mild dextro convex scoliosis. Reading Location: [facility] Abdomen/Pelvis CT 11/19/24 00:03 IMPRESSION: 1. Abrupt narrowing of the proximal sigmoid colon with a short segment of wall thickening. This could represent focal colitis or a mucosal mass lesion. 2. Mild wall thickening of the duodenum with mild adjacent fat stranding, concerning for duodenitis. 3. Mild dilatation of the large and small bowel proximal to the focal narrowingin the proximal sigmoid colon, which could represent a low-grade partial small bowel obstruction. 4. Large amount of stool within the distal sigmoid colon and rectum. 5. Small hiatal hernia. 6. Moderate to severe thoracolumbar spondylosis with mild lumbar scoliosis. Reading Location: [facility] Echocardiogram 11/19/24 02:04 Interpretation Summary Technically difficult study with suboptimal images. Mild concentric left ventricular hypertrophy. The left ventricular ejection fraction is 65 %. Stage 1 diastolic dysfunction. Ordering Physician: Romeo Khan Referring Physician: LULU SWANSON Performed By: Agnieszka Brenner RCS Chest CT 11/19/24 03:46 IMPRESSION: Coronary artery calcification (CAC) is is present Acute soft tissue hematoma is noted underlying the right pectoralis muscle in the interim measuring3.9 x 8.4 x 9.1 cm in its largest anteroposterior, transverse and craniocaudal dimensions respectively. Secondary mild displacement and edema of the right pectoralis muscle. Mild surrounding soft tissue edema. Unchanged mild bilateral basilar pleural thickening/effusions. Unchanged minimal bilateral basilar atelectatic pulmonary changes. Unchanged emphysema/chronic interstitial thickening. Unchanged mildly enlarged mediastinal lymph nodes with the largest measuring 1.2cm. Chronic deformity of the axillary portion of the right 6th rib, unchanged. Reading [facility] [address] Charges/Coding Visit Charges Inpatient E&M: 93793 [facility] 11/20/24 0834 Cosigner Signature (if applicable): CC: ~ Signed [facility]10-11-2025 Progress note [facility] Medical Records Department [address] [place] [id number] Progress Note - Surgery 11/20/24 08 MR#: [id number] Acct: [id number] Name: DAVID ALDRICH Rep #:[id number] : 1960 64 From: Ej Munguia PCP: Lulu Swanson PROCESS OPERATORSandraC Status:ADM I N Location: ICU CVICU 3-1 Subjective Subjective Patient seen and examined during AM rounds. She is found resting in bed. She denies any nausea and confirms she tolerated her diet well. She does denied appetite at present. She confirms she still isexperiencing bowel movements andreports them to be loose in character. She wishes to know when she will be eligible for discharge to home. Objective Data Objective Data Vital Signs: Vital Signs Temp Pulse Resp BP Pulse Ox O2 Del Method O2 Flow Rate 99 F 98 27 H 126/58 H 97 Room Air 2 11/20/24 04:00 11/20/24 07:00 11/20/24 07:00 11/20/24 07:00 11/20/24 07:00 11/20/24 07:00 11/18/24 22:45 FiO2 28 11/18/24 21:15 Oxygen Flow Rate (L/min) 2 Oxygen Delivery Method Room Air Weight: 166 lb 0.129 oz Body Mass Index (BMI) 31.3 Intake & Output: Intake and Output for Last 24 Hours 11/18/24 11/19/24 11/20/24 23:59 23:59 23:59 Intake Total 3034.55 / 3034.55 3168.67 / 3174.27 87.40 / 87.40 Output Total 2024 / 2024 550 / 550 Balance 3034.55 / 3034.55 1143.67 / 1149.27 -462.60 / -462.60 Lab / Micro Data 11/20/24 05:30 11/20/24 05:30 Labs: Laboratory Results - last 24 hr 11/19/24 12:57: POC Glucose 180 H 11/19/24 18:32: POC Glucose 142 H 11/20/24 05:06: POC Glucose 143 H 11/20/24 05:30: WBC 17.8 H, RBC 3.18 L, Hgb 10.2 L, Hct 28.7 L, MCV 90.3, MCH 32.1 H, MCHC 35.5, RDW Std Deviation 45.4 H, RDW Coeff of Panchito 13.6, Plt Count 192, MPV 9.8, Immature Gran % (Auto) 0.300,Neut % (Auto) 86.5 H, Lymph % (Auto)3.9 L, Sebastian % (Auto) 9.1, Eos % (Auto) 0.0, Baso % (Auto) 0.2, Absolute Neuts (auto) 15.4 H, Absolute Lymphs (auto) 0.70 L, Nucleated RBC % 0, Differential Comment, Toxic Vacuolation 1+, Platelet Estimate ADEQUATE, RBC Morphology NORM C+C, Sodium 134, Potassium 3.9, Chloride 106, Carbon Dioxide 15.2 L, Anion Gap 13, BUN 27 H, Creatinine 1.29 H, Estim Creat Clear Calc 41.43 L, Est GFR (MDRD) Non-Af 47 L, BUN/Creatinine Ratio 20.9 H, Glucose 157 H, Calcium 7.8 Micro: Microbiology 11/19/24 08:25 Nasal Secretion MRSA (PCR) - Final 11/19/24 04:03 Mucosa - Nasopharyngeal Respiratory Panel (PCR) - Final 11/18/24 21:04 Mucosa - Nose SARS-CoV-2, Influenza & RSV (PCR) - Final Radiography Diagnostic Testing: Radiology Impression Echocardiogram 11/19/24 02:04 Interpretation Summary Technically difficult study with suboptimal images. Mild concentric left ventricular hypertrophy. The left ventricular ejection fraction is 65 %. Stage 1 diastolic dysfunction. Ordering Physician: Romeo Khan Referring Physician: LULU SWANSON Performed By: Agnieszka Brenner RCS Venous Doppler Study 11/19/24 04:21 Interpretation Summary Deep veins of the lower extremities are bilaterally patent and compressible segmentally. There is no evidence of deep vein thrombosis on either side. Valvular competence appears intact within the proximal deep venous systems bilaterally. The great saphenous veins appear bilaterally patent and compressible segmentally. Ordering Physician: Romeo Khan Referring Physician: Lulu Swanson Performed By: Amy Sidhu RVT Abdomen CT 11/19/24 15:18 IMPRESSION: 1. Acute colitis from the mid transverse colon through the sigmoid. 2. Mild-moderate ascites, which has increased. Reading Location: [facility] Chest CTA 11/19/24 15:18 IMPRESSION: No pulmonary embolism. 6.8 x 2.4 cm right pectoralis intramuscular hematoma with adjacent fat stranding. Similar in size when accounting for differences in measurement. Trace left pleural effusion. Mild centrilobular and paraseptal emphysema. Prominent mediastinal lymph nodes, largest right paratracheal node measuring 1.1cm in short axis diameter. Stable. Trace perihepatic free fluid. Mild atherosclerosis with coronary artery calcifications. Degenerative changes of the spine with dextroscoliosis. Reading Location: [address] Physical Exam Const oriented x3 and no apparent distress GI GI Narrative: Decreased abdominal distention, softer, minimal tenderness to palpation in upperabdominal quadrants. Mild tenderness palpation lower abdominal quadrants. Assessment & Plan Assessment/Plan (1) Abnormal CT scan, colon: PLAN: Patient is 64-year-old female admitted to the ICU 2 days ago with concern for sepsis after a presentation with chest pain and significant shortness of breath. Additionally, CT imaging was completed showing concern for possible small bowel obstruction as well as a "abrupt" transition of the sigmoid colon concerning for possible "focal colitis". Repeat CT imaging with enteral contrast (both p.o. and NE) yesterday showed no evidence of bowel obstruction and no focal narrowing of the colon. However, didconfirm generalized appearance of colitis. Based on the distribution of the wall thickening and patient's presentation I am suspicious for anischemic etiology. Since her admission patient's blood pressure has been stable as normal. She tolerated a diet advanced to clear liquids yesterday and her abdominal exam is improved today. She does describe some shifting tenderness which I believed to be more related to her stool burden. Given herclinical improvement recommend advance to transitional diet. Additionally counseled patient about the risks she is taking on with her continued tobacco habit and advised her to be more vigilant to her hydration status. Patient confirmed understanding of this information. Ej Brown MD General Surgery Endocrine Surgery Pager: [facility] [address] [facility], [address], [address] [place] [address] Office: [phone] Charges/Coding Visit Charges Inpatient E&M: 48679 Subs Hosp L2 11/20/24 0828 Cosigner Signature (if applicable): CC: ~ Signed [facility]10-10-2025 Consult note Author Ej Brown [facility] Note Date/Time November 19, 2024 5 :31pm [facility] Medical Records Department [address] [place] [address] Consultation - Surgical 11/19/24 1704 MR#: [id number] Acct: [id number] Name: DAVID ALDRICH Rep #:[id number] : 1960 64 From: Ej Munguia PCP: CB Landaverde Status:ADM I N Location: ICU CVICU20 3-[address] Ej Brown MD on 11/19/24 [address] read by radiology confirms my independent review that CT does not demonstrate any evidence for a bowel obstruction. Further, there is no narrowing of the colon, however, there is evidence of colonic wall thickening?particularly distally. This is suggestive of colitis and in light ofpatient's recent hypotension could represent an element of ischemic colitis. The absence of any signs of bowel obstruction and patient's reports for both bowel function as well as an appetite I recommend resuming a diet starting with a clear liquid diet once permissible by all involved service lines/parties in patient's care. Will continue to follow for tolerance as well as serial abdominal exams. Please keep surgery updated with any new clinical developments. 11/19/24 173<Electronically signed by Ej Brown MD> Cosigner Signature (if applicable): cc: PROCESS OPERATOR-C Lulu Swanson ~* Signed Assessment & Plan Assessment/Plan (1) Abnormal CT scan, colon: PLAN: Patient is 64-year-old female admitted to the ICU yesterday with concern for sepsis after a presentation with chest pain and significant shortness of breath. Additionally, CT imaging was completed showing concern for possible small bowel obstruction as well as a "abrupt" transition of the sigmoid colon concerning for possible "focal colitis". Patient denies any significant antecedent history and appears up-to-date, but due for colonoscopy. Further, she denies any present nausea or vomiting is actually requesting a diet. Despite this reassuring her history she does complain of some significant tenderness on exam with palpation of the epigastrium. Therefore, it is my recommendation to follow-up earlier CT findings with enteric contrast and have requested per rectal contrast administration as well to provide better definition on the sigmoid colon region. Would keep patient n.p.o. until resultsof CAT scan are known and further recommendations can be made. In the interim Ihave been contacted by vascular surgery out of concerns to perform additional CTangiography for possible vascular injury from central line placement. I have urged them to take first priority with patient's workup. CT imaging remains pending at this time. Ej Brown MD General Surgery Endocrine Surgery Pager: [facility] [address] [place] [address], [facility], [address] [place] [id number] Office: [phone] HPI Consult Data Date of Consult: 11/19/24 HPI Narrative Reason for Consultation: Intake evidence of partial small bowel obstruction and/or possible colon le HPI Narrative: DAVID ALDRICH, is a 64 F who presented to [facility] yesterday withcomplaints of chest pain and shortness of breath. As part of her workup imagingwas performed with CT of the abdomen pelvis showing IMPRESSION: 1. Abrupt narrowing of the proximal sigmoid colon with a short segment of wall thickening. This could represent focal colitis or a mucosal mass lesion. 2. Mild wall thickening of the duodenum with mild adjacent fat stranding, concerning for duodenitis. 3. Mild dilatation of the large and small bowel proximal to the focal narrowingin the proximal sigmoid colon, which could represent a low-grade partial small bowel obstruction. 4. Large amount of stool within the distal sigmoid colon and rectum. 5. Small hiatal hernia. 6. Moderate to severe thoracolumbar spondylosis with mild lumbar scoliosis. General surgery was asked to further evaluate. Upon arrival to patient's room in the ICU she states that she is now feeling great and wishes for permission to begin a diet. She denies any abdominal pain. She shares that she had 1 formed bowel movement as well as 1 loose bowel movement today. She denies noting any frankly bloody or dark stools. She denies any present nausea or vomiting. She does endorse some recent constipation. She states she had a colonoscopy approximately [address] Lanza and is under the impression that she is now "due". She denies any history of polyps. She denies any family history of diverticulitis, inflammatory bowel disease, or colon cancer. Patient's only prior abdominal surgical procedure was an appendectomy as a child. [facility] Medical History Nicotine use disorder Septic arthritis Elevated coronary artery calcium score Neck pain Bilateral carotid artery stenosis Snoring Peripheral arterial disease Fatty liver disease, nonalcoholic Major depressive disorder, recurrent episode Bradycardia Palpitations SOB (shortness of breath) Diabetic acetonemia COPD (chronic obstructive pulmonary disease) Hyperlipidemia Home Medications ?Medication ?Instructions ?Recorded ?Last Taken ?Type atorvastatin 20 mg tablet 20 mg PO QHS 12/22/17 Unknow n History lisinopril 5 mg tablet 5 mg PO DAILY 12/22/17 Unkno wn History metformin 500 mg tablet 500 mg PO DAILY 12/22/17 Unk nown History aspirin 81 mg tablet,delayed 81 mg PO QDAY 01/14/24 Un known History release (Adult Aspirin Regimen) bupropion HCl 150 mg tablet,12 hr 150 mg PO BID Unknown History sustained-release (Wellbutrin SR) buspirone 5 mg tablet 5 mg PO TID 01/14/24 Unknown History cyclobenzaprine 5 mg tablet 5 mg PO TID PRN 01/14/24 U nknown History fluticasone fur. 100 mcg-umeclid 1 inh inhalation QDAY 01/14/24 Unknown History 62.5 mcg-vilant 25 mcg inhalat.powder (Trelegy Ellipta) ibuprofen 800 mg tablet 800 mg PO Q8H PRN 01/14/24 U nknown History imipramine HCl 50 mg tablet 150 mg PO QHS 01/14/24 Unk nown History ondansetron HCl 4 mg tablet 4 mg PO Q8H PRN 01/14/24 U nknown History thiothixene 2 mg capsule 2 mg PO BID 01/14/24 Unknown History zolpidem 10 mg tablet (Ambien) 10 mg PO QHS PRN sleep 01/14/24 Unknown History melatonin 5 mg capsule mg PO PRN 01/21/24 Unknown H istory pantoprazole 40 mg tablet,delayed 40 mg PO DAILY #90 t abs 03/26/24 Unknown Rx release Allergy/AdvReac Type Severity Reaction Status Date / Time simvastatin Allergy Other Verified 11/18/24 21:07 Family History Mother Heart disease Father Diabetes Brother Parkinson's disease Surgical History History of arthroscopy of knee History of colonoscopy History of rectal polypectomy History of cardiac catheterization H/O carotid endarterectomy History of appendectomy Social History household members: children Smoking Status: Current every day smoker tobacco type: cigarettes alcohol intake: never substance use type: does not use caffeine: Yes Physical Exam Const alert, oriented x3 and no apparent distress Resp normal respiratory effort GI GI Narrative: Mildly distended, soft, reports moderate tenderness (rated 8 out of 10) to palpation in the upper abdomen. Nontender to palpation in lower abdomen Lab / Micro Data 11/19/24 07:04 11/19/24 07:04 Labs: Laboratory Results - last 24 hr 11/18/24 21:00: WBC 13.9 H, RBC 6.01 H, Hgb 18.9 H*, Hct 55.1 H, MCV 91.7, MCH 31.4, MCHC 34.3, RDW Std Deviation 44.1 H, RDW Coeff of Panchito 13.0, Plt Count 390,MPV 10.6, Immature Gran % (Auto) 0.800, Neut % (Auto) 55.3, Lymph % (Auto) 35.6,Sebastian % (Auto) 4.5, Eos % (Auto) 2.9, Baso % (Auto) 0.9, Absolute Neuts (auto) 7.7, Absolute Lymphs (auto) 4.95 H, Nucleated RBC % 0, PT 15.7 H, INR 1.2, APTT 32.1, Sodium 134, Potassium 4.0, Chloride 98, Carbon Dioxide 17.7 L, Anion Gap 18 H, BUN 17, Creatinine 1.36 H, Estim Creat Clear Calc 39.22 L, Est GFR (MDRD) Non-Af 44 L, BUN/Creatinine Ratio 12.4, Glucose 316 H, Calcium 10.0, Total Bilirubin 0.53, AST 64 H, ALT 38 H, Alkaline Phosphatase 115 H, Troponin T High Sens 11, Total Protein 6.8, Albumin 3.9, Globulin 2.9, Albumin/Globulin Ratio 1.3, b-Hydroxybutyric mmol/L 0.2, TSH 16.900 H, Cortisol PM Sample 35.80 H 11/18/24 21:08: Lactic Acid 3.0 H* 11/18/24 21:42: Urine Color Yellow, Urine Clarity Clear, Urine pH 6.0, Ur Specific [place] 1.015, Urine Protein 100 H, Urine Glucose (UA) Normal, Urine Ketones Negative, Urine Occult Blood 10 H, Urine Nitrite Negative, Urine Bilirubin 6 H, Urine Urobilinogen Normal, Ur Leukocyte Esterase 25 H, Urine RBC 0-5 SEEN, Urine WBC 0-5 SEEN, Ur Squamous Epith Cells 0-5 SEEN, Urine Bacteria 0SEEN, Urine Mucus 0 SEEN 11/18/24 23:16: Troponin T Hi Sens 2 Hr 15 H 11/19/24 01:24: Troponin T Hi Sens 4Hr 22 H 11/19/24 02:10: D-Dimer Quant (PE/DVT) > 20.00 H*, Hemoglobin A1c 6.1 H, Lactic Acid 2.1 H*, Magnesium 2.6 H, Free T4 0.90, Free T3 pg/dL 2.4 11/19/24 07:02: POC Glucose 223 H 11/19/24 07:04: WBC 21.4 H, RBC 4.00 L, Hgb 12.6, Hct 37.1, MCV 92.8, MCH 31.5, MCHC 34.0, RDW Std Deviation 45.2 H, RDW Coeff of Panchito 13.2, Plt Count 276, MPV 9.7, Immature Gran % (Auto) 0.600, Neut % (Auto) 90.7 H, Lymph % (Auto) 3.5 L, Sebastian % (Auto) 4.9, Eos % (Auto) 0.1, Baso % (Auto) 0.2, Absolute Neuts (auto) 19.5 H, Absolute Lymphs (auto) 0.75 L, Nucleated RBC % 0, Sodium 135, Potassium 4.4, Chloride 109 H, Carbon Dioxide 14.8 L, Anion Gap 12, BUN 25 H, Creatinine 1.57 H, Estim Creat Clear Calc 33.79 L, Est GFR (MDRD) Non-Af 37 L, BUN/Creatinine Ratio 15.9, Glucose 258 H, Lactic Acid 2.7 H*, Calcium 7.3 L, Phosphorus 5.1 H, Total Bilirubin 0.45, AST 56 H, ALT 45 H, Alkaline Phosphatase 64, Total Protein 4.5 L, Albumin 2.7 L, Globulin 1.8 L, Albumin/Globulin Ratio 1.5, Triglycerides 56, Cholesterol 71, LDL Cholesterol, Calc 27, VLDL Cholesterol 11, HDL Cholesterol 33 L, Cholesterol/HDL Ratio 2.13 11/19/24 12:57: POC Glucose 180 H Micro: Microbiology 11/19/24 08:25 Nasal Secretion MRSA (PCR) - Final 11/19/24 04:03 Mucosa - Nasopharyngeal Respiratory Panel (PCR) - Final 11/18/24 21:04 Mucosa - Nose SARS-CoV-2, Influenza & RSV (PCR) - Final ABG Data ABG results: ABG 11/18/24 11/19/24 21:07 04:24 Specimen Type ART ART Sample Site L Radial L Radial pH 7.30 L 7.30 L Bicarbonate Actual 13.1 L 14.9 L Total CO2 14 16 Base Excess -13 L -12 L O2 Saturation 100 H 95 O2 % 6.0 ABG pCO2 26.6 L 30.4 L ABG pO2 504 H* 81 Nayana Test N/A Positive O2 Delivery Device Cannula Room Air Vent Mode Not entered Not entered Crit Call To/Read Back Yes Blood Gas Notified Whom Dr Marques Blood Gas Notified Time 21:09:37 Imaging Radiology Impression Chest X-Ray 11/18/24 20:50 IMPRESSION: No acute cardiopulmonary disease. Reading Location: [facility] Chest X-Ray 11/18/24 22:34 IMPRESSION: Left subclavian central venous catheter with tip at the lower SVC. Unchanged lung aeration. No pneumothorax or sizable pleural effusion. Reading Location: [facility] Chest CTA 11/18/24 22:41 IMPRESSION: No CT evidence of a pulmonary embolism. Mild chronic fibroemphysematous pulmonary changes, as described above. Mediastinal lymphadenopathy. Soft tissue thickening in the bilateral hilar regions may represent hilar lymphadenopathy or peribronchial infiltrates. Please correlate clinically for bronchitis. Moderate thoracic spondylosis with mild dextro convex scoliosis. Reading Location: [facility] Abdomen/Pelvis CT 11/19/24 00:03 IMPRESSION: 1. Abrupt narrowing of the proximal sigmoid colon with a short segment of wall thickening. This could represent focal colitis or a mucosal mass lesion. 2. Mild wall thickening of the duodenum with mild adjacent fat stranding, concerning for duodenitis. 3. Mild dilatation of the large and small bowel proximal to the focal narrowingin the proximal sigmoid colon, which could represent a low-grade partial small bowel obstruction. 4. Large amount of stool within the distal sigmoid colon and rectum. 5. Small hiatal hernia. 6. Moderate to severe thoracolumbar spondylosis with mild lumbar scoliosis. Reading Location: [facility] Echocardiogram 11/19/24 02:04 Interpretation Summary Technically difficult study with suboptimal images. Mild concentric left ventricular hypertrophy. The left ventricular ejection fraction is 65 %. Stage 1 diastolic dysfunction. Ordering Physician: Romeo Khan Referring Physician: LULU SWANSON Performed By: Agnieszka Brenner RCS Chest CT 11/19/24 03:46 IMPRESSION: Coronary artery calcification (CAC) is is present Acute soft tissue hematoma is noted underlying the right pectoralis muscle in the interim measuring 3.9 x 8.4 x 9.1 cm in its largest anteroposterior, transverse and craniocaudal dimensions respectively. Secondary mild displacement and edema of the right pectoralis muscle. Mild surrounding soft tissue edema. Unchanged mild bilateral basilar pleural thickening/effusions. Unchanged minimal bilateral basilar atelectatic pulmonary changes. Unchanged emphysema/chronic interstitial thickening. Unchanged mildly enlarged mediastinal lymph nodes with the largest measuring 1.2cm. Chronic deformity of the axillary portion of the right 6th rib, unchanged. Reading [facility] Charges/Coding Visit Charges Inpatient E&M: 25322 Init Hosp L2 11/19/24 1713 <Electronically signed by Ej Brown MD> Cosigner Signature (if applicable): CC: CB Swanson~ Signed [facility] Work Phone: [phone]) 807-560710-10-2025 Consult note [facility] Medical Records Department [address] [place] [address] Consultation - Surgical 11/19/24 1704 MR#: [id number] Acct: [id number] Name: DAVID ALDRICH Rep #:[id number] : 1960 64 From: Ej Munguia PCP: CB Landaverde Status:ADM I N Location: ICU CVICU20 3-[address] Ej Brown MD on 11/19/24 at [address] read by radiology confirms my independent review that CT does not demonstrate any evidence for a bowel obstruction. Further, there is no narrowing of the colon, however, there is evidenceof colonic wall thickening?particularly distally. This is suggestive of colitis and in light ofpatient's recent hypotension could represent an element of ischemic colitis. The absence of any signs ofbowel obstruction and patient's reports for both bowel function as well as an appetite I recommend resuming a diet starting with a clear liquid diet once permissible by all involved service lines/parties in patient's care. Will continue to follow for tolerance as well as serial abdominal exams. Please keep surgery updated with any new clinical developments. 11/19/24 1731 Cosigner Signature (if applicable): cc: CB Swanson ~* Signed Assessment & Plan Assessment/Plan (1) Abnormal CT scan, colon: PLAN: Patient is 64-year-old female admitted to the ICU yesterday with concern for sepsis after a presentation with chest pain and significant shortness of breath. Additionally, CT imaging was completed showing concern for possible small bowel obstruction as well as a "abrupt" transition of the sigmoid colon concerning for possible "focal colitis". Patient denies any significant antecedent history and appears up-to-date, but due for colonoscopy. Further, she denies any present nausea or vomiting is actually requesting a diet. Despite this reassuring her history she does complain of some significant tenderness on exam with palpation of the epigastrium. Therefore, it is my recommendation to fo llow-up earlier CT findings with enteric contrast and have requested per rectal contrast administration as well to provide better definition on the sigmoid colon region. Would keep patient n.p.o. until resultsof CAT scan are known and further recommendations can be made. In the interim Ihave been contacted by vascular surgery out of concerns to perform additional CTangiography for possible vascular injury from central line placement. I have urged them to take first priority with patient's workup. CT imaging remains pending at this time. Ej Brown MD General Surgery Endocrine Surgery Pager: [facility] [address] [place] [address], [facility], [address] [place] [address] Office: [phone] HPI Consult Data Date of Consult: 11/19/24 HPI Narrative Reason for Consultation: Intake evidence of partial small bowel obstruction and/or possible colon le HPI Narrative: DAVID ALDRICH, is a 64 F who presented to [facility] yesterday withcomplaints of chestpain and shortness of breath. As part of her workup imagingwas performed with CT of the abdomen pelvis showing IMPRESSION: 1. Abrupt narrowing of the proximal sigmoid colon with a short segment of wall thickening. This could represent focal colitis or a mucosal mass lesion. 2. Mild wall thickening of the duodenum with mild adjacent fat stranding, concerning for duodenitis. 3. Mild dilatation of the large and small bowel proximal to the focal narrowingin the proximal sigmoid colon, which could represent a low-grade partial small bowel obstruction. 4. Large amount of stool within the distal sigmoid colon and rectum. 5. Small hiatal hernia. 6. Moderate to severe thoracolumbar spondylosis with mild lumbar scoliosis. General surgery was asked to further evaluate. Upon arrival to patient's room in the ICU she states that she is now feeling "great" and wishes forpermission to begin a diet. She denies any abdominal pain. She shares that she had 1 formed bowel movement as well as 1 loose bowel movement today. She denies noting any frankly bloody or dark stools. She denies any present nausea or vomiting. She does endorse some recent constipation. She states she had a colonoscopy approximately [address] Lanza and is under the impression that sheis now "due". She denies any history of polyps. She denies any family history of diverticulitis, inflammatory bowel disease, or colon cancer. Patient's only prior abdominal surgical procedure was an a ppendectomy as a child. [facility] Medical History Nicotine use disorder Septic arthritis Elevated coronary artery calcium score Neck pain Bilateral carotid artery stenosis Snoring Peripheral arterial disease Fatty liver disease, nonalcoholic Major depressive disorder, recurrent episode Bradycardia Palpitations SOB (shortness of breath) Diabetic acetonemia COPD (chronic obstructive pulmonary disease) Hyperlipidemia Home Medications ?Medication ?Instructions ?Recorded ?Last Taken ?Type atorvastatin 20 mg tablet 20 mg PO QHS 12/22/17 Unknow n History lisinopril 5 mg tablet 5 mg PO DAILY 12/22/17 Unkno wn History metformin 500 mg tablet 500 mg PO DAILY 12/22/17 Unk nown History aspirin 81 mg tablet,delayed 81 mg PO QDAY 01/14/24 Un known History release (Adult Aspirin Regimen) bupropion HCl 150 mg tablet,12 hr 150 mg PO BID Unknown History sustained-release (Wellbutrin SR) buspirone 5 mg tablet 5 mg PO TID 01/14/24 Unknown History cyclobenzaprine 5 mg tablet 5 mg PO TID PRN 01/14/24 U nknown History fluticasone fur. 100 mcg-umeclid 1 inh inhalation QDAY 01/14/24 Unknown History 62.5 mcg-vilant 25 mcg inhalat.powder (Trelegy Ellipta) ibuprofen 800 mg tablet 800 mg PO Q8H PRN 01/14/24 U nknown History imipramine HCl 50 mg tablet 150 mg PO QHS 01/14/24 Unk nown History ondansetron HCl 4 mg tablet 4 mg PO Q8H PRN 01/14/24 U nknown History thiothixene 2 mg capsule 2 mg PO BID 01/14/24 Unknown History zolpidem 10 mg tablet (Ambien) 10 mg PO QHS PRN sleep 01/14/24 Unknown History melatonin 5 mg capsule mg PO PRN 01/21/24 Unknown H istory pantoprazole 40 mg tablet,delayed 40 mg PO DAILY #90 t abs 03/26/24 Unknown Rx release Allergy/AdvReac Type Severity Reaction Status Date / Time simvastatin Allergy Other Verified 11/18/24 21:07 Family History Mother Heart disease Father Diabetes Brother Parkinson's disease Surgical History History of arthroscopy of knee History of colonoscopy History of rectal polypectomy History of cardiac catheterization H/O carotid endarterectomy History of appendectomy Social History household members: children Smoking Status: Current every day smoker tobacco type: cigarettes alcohol intake: never substance use type: does not use caffeine: Yes Physical Exam Const alert, oriented x3 and no apparent distress Resp normal respiratory effort GI GI Narrative: Mildly distended, soft, reports moderate tenderness (rated 8 out of 10) to palpation in the upper abdomen. Nontender to palpation in lower abdomen Lab / Micro Data 11/19/24 07:04 11/19/24 07:04 Labs: Laboratory Results - last 24 hr 11/18/24 21:00: WBC 13.9 H, RBC 6.01 H, Hgb 18.9 H*, Hct 55.1 H, MCV 91.7, MCH 31.4, MCHC 34.3, RDWStd Deviation 44.1 H, RDW Coeff of Panchito 13.0, Plt Count 390,MPV 10.6, Immature Gran % (Auto) 0.800, Neut % (Auto) 55.3, Lymph % (Auto) 35.6,Sebastian % (Auto) 4.5, Eos % (Auto) 2.9, Baso % (Auto) 0.9, Absolute Neuts (auto) 7.7, Absolute Lymphs (auto) 4.95 H, Nucleated RBC % 0, PT 15.7 H, INR 1.2, APTT 32.1, Sodium 134, Potassium 4.0, Chloride 98, Carbon Dioxide 17.7 L, Anion Gap 18 H, BUN 17, Creatinine 1.36 H, Estim Creat Clear Calc 39.22 L, Est GFR (MDRD) Non-Af 44 L, BUN/Creatinine Ratio 12.4, Glucose 316 H, Calcium 10.0, Total Bilirubin 0.53, AST 64 H, ALT 38 H, Alkaline Phosphatase 115 H, Troponin T High Sens 11, Total Protein 6.8, Albumin 3.9, Globulin 2.9, Albumin/Globulin Ratio 1.3, b-Hydroxybutyric mmol/L 0.2, TSH 16.900 H, Cortisol PM Sample 35.80 H 11/18/24 21:08: Lactic Acid 3.0 H* 11/18/24 21:42: Urine Color Yellow, Urine Clarity Clear, Urine pH 6.0, Ur Specific [place] 1.015, Urine Protein 100 H, Urine Glucose (UA) Normal, Urine Ketones Negative, Urine Occult Blood 10 H, Urine Nitrite Negative, Urine Bilirubin 6 H, Urine Urobilinogen Normal, Ur Leukocyte Esterase 25 H, Urine RBC 0-5 SEEN, Urine WBC 0-5 SEEN, Ur Squamous Epith Cells 0-5 SEEN, Urine Bacteria 0SEEN, Urine Mucus 0 SEEN 11/18/24 23:16: Troponin T Hi Sens 2 Hr 15 H 11/19/24 01:24: Troponin T Hi Sens 4Hr 22 H 11/19/24 02:10: D-Dimer Quant (PE/DVT) > 20.00 H*, Hemoglobin A1c 6.1 H, Lactic Acid 2.1 H*, Magnesium 2.6 H, Free T4 0.90, Free T3 pg/dL 2.4 11/19/24 07:02: POC Glucose 223 H 11/19/24 07:04: WBC 21.4 H, RBC 4.00 L, Hgb 12.6, Hct 37.1, MCV 92.8, MCH 31.5, MCHC 34.0, RDW Std Deviation 45.2 H, RDW Coeff of Panchito 13.2, Plt Count 276, MPV 9.7, Immature Gran % (Auto) 0.600, Neut % (Auto) 90.7 H, Lymph % (Auto) 3.5 L, Sebastian % (Auto) 4.9, Eos % (Auto) 0.1, Baso % (Auto) 0.2, Absolute Neuts (auto) 19.5 H, Absolute Lymphs (auto) 0.75 L, Nucleated RBC % 0, Sodium 135, Potassium 4.4, Chloride 109 H, Carbon Dioxide 14.8 L, Anion Gap 12, BUN 25 H, Creatinine 1.57 H, Estim Creat Clear Calc 33.79 L, Est GFR (MDRD) Non-Af 37 L, BUN/Creatinine Ratio 15.9, Glucose 258 H, Lactic Acid 2.7 H*, Calcium 7.3 L, Phosphorus 5.1 H, Total Bilirubin 0.45, AST 56 H, ALT 45 H, Alkaline Phosphatase 64, Total Protein 4.5 L, Albumin 2.7 L, Globulin 1.8 L, Albumin/Globulin Ratio 1.5, Triglycerides 56, Cholesterol 71, LDL Cholesterol, Calc 27, VLDL Cholesterol 11, HDL Cholesterol 33 L, Cholesterol/HDL Ratio 2.13 11/19/24 12:57: POC Glucose 180 H Micro: Microbiology 11/19/24 08:25 Nasal Secretion MRSA (PCR) - Final 11/19/24 04:03 Mucosa - Nasopharyngeal Respiratory Panel (PCR) - Final 11/18/24 21:04 Mucosa - Nose SARS-CoV-2, Influenza & RSV (PCR) - Final ABG Data ABG results: ABG 11/18/24 11/19/24 21:07 04:24 Specimen Type ART ART Sample Site L Radial L Radial pH 7.30 L 7.30 L Bicarbonate Actual 13.1 L 14.9 L Total CO2 14 16 Base Excess -13 L -12 L O2 Saturation 100 H 95 O2 % 6.0 ABG pCO2 26.6 L 30.4 L ABG pO2 504 H* 81 Nayana Test N/A Positive O2 Delivery Device Cannula Room Air Vent Mode Not entered Not entered Crit Call To/Read Back Yes Blood Gas Notified Whom Dr Marques Blood Gas Notified Time 21:09:37 Imaging Radiology Impression Chest X-Ray 11/18/24 20:50 IMPRESSION: No acute cardiopulmonary disease. Reading Location: [facility] Chest X-Ray 11/18/24 22:34 IMPRESSION: Left subclavian central venous catheter with tip at the lower SVC. Unchanged lung aeration. No pneumothorax or sizable pleural effusion. Reading Location: [facility] Chest CTA 11/18/24 22:41 IMPRESSION: No CT evidence of a pulmonary embolism. Mild chronic fibroemphysematous pulmonary changes, as described above. Mediastinal lymphadenopathy. Soft tissue thickening in the bilateral hilar regions may represent hilar lymphadenopathy or peribronchial infiltrates. Please correlate clinically for bronchitis. Moderate thoracic spondylosis with mild dextro convex scoliosis. Reading Location: [facility] Abdomen/Pelvis CT 11/19/24 00:03 IMPRESSION: 1. Abrupt narrowing of the proximal sigmoid colon with a short segment of wall thickening. This could represent focal colitis or a mucosal mass lesion. 2. Mild wall thickening of the duodenum with mild adjacent fat stranding, concerning for duodenitis. 3. Mild dilatation of the large and small bowel proximal to the focal narrowingin the proximal sigmoid colon, which could represent a low-grade partial small bowel obstruction. 4. Large amount of stool within the distal sigmoid colon and rectum. 5. Small hiatal hernia. 6. Moderate to severe thoracolumbar spondylosis with mild lumbar scoliosis. Reading Location: [facility] Echocardiogram 11/19/24 02:04 Interpretation Summary Technically difficult study with suboptimal images. Mild concentric left ventricular hypertrophy. The left ventricular ejection fraction is 65 %. Stage 1 diastolic dysfunction. Ordering Physician: Romeo Khan Referring Physician: LULU SWANSON Performed By: Agnieszka Brenner RCS Chest CT 11/19/24 03:46 IMPRESSION: Coronary artery calcification (CAC) is is present Acute soft tissue hematoma is noted underlying the right pectoralis muscle in the interim measuring3.9 x 8.4 x 9.1 cm in its largest anteroposterior, transverse and craniocaudal dimensions respectively. Secondary mild displacement and edema of the right pectoralis muscle. Mild surrounding soft tissue edema. Unchanged mild bilateral basilar pleural thickening/effusions. Unchanged minimal bilateral basilar atelectatic pulmonary changes. Unchanged emphysema/chronic interstitial thickening. Unchanged mildly enlarged mediastinal lymph nodes with the largest measuring 1.2cm. Chronic deformity of the axillary portion of the right 6th rib, unchanged. Reading Location: [facility] Charges/Coding Visit Charges Inpatient E&M: 88115 Init Hosp L2 11/19/24 1713 Cosigner Signature (if applicable): CC: CB Swanson~ Signed [facility]10-10-2025 Radiology Diagnostic study note [facility] Imaging Services [address] [place], [place] [id number] Abdomen/Pel W ORAL Cont Only MR#: [id number] Acct: [id number] Name: DAVID ALDRICH Rep #: [id number] : 1960 F 64 From: Dennys Ferguson MD PCP: CB Landaverde Status: ADM I N Study:Abdomen/Pel W ORAL Cont Only Date of Ex am: 11/19/24 Exam# [id number] Ordering Dr: Francesca Brown MD PROCEDURE: ABDOMEN/PEL W ORAL CONT ONLY 11/19/2024 REASON FOR EXAM: F/U POSSIBLE PSBO AND COLONIC NARROWING TECHNIQUE: Procedure Code: CTABDPELPO Modality: CT Procedure: ABDOMEN/PEL W ORAL CONT ONLY Noncontrast technique limits evaluation of the abdominal and pelvic viscera. Coronal and Sagittal reconstruction series were provided. One or more dose reduction techniques were used (e.g., Automated exposure control, adjustment of the mA and/or kV according to patient size, use of iterative reconstruction technique). RADIATION DOSE SUMMARY: CTDlvol: 15.91, 7.12, 12.48, 11.15 mGy DLP: 1390 mGycm COMPARISON: CT Abdomen and Pelvis w/Contrast, 11/19/2024 at 12:21 a.m. FINDINGS: LUNG BASES: Dependent left lower lobe atelectasis again seen. Minimal pericardial fluid. Oral contrast in the esophagus, may reflect esophageal dysmotility or reflux disease. LIVER: Unremarkable. GALLBLADDER: Vicarious gallbladder contrast excretion. BILE DUCTS: No ductal dilation. PANCREAS: Unremarkable. SPLEEN: Unremarkable. ADRENAL GLANDS: Unremarkable. KIDNEYS: Residual contrast material in the renal collecting systems bilaterally. Fluid density 2.4 cm exophytic right inferior renal cyst. No hydronephrosis or hydroureter. STOMACH AND BOWEL: Small hiatal hernia. No obstruction or perforation. Diffuse colonic wall thickening from the mid transverse colon to the distal sigmoid colon. No focal colonic narrowing present on the current study. APPENDIX: The appendix is not definitively seen. RETRO/PERITONEUM: Rphw-jk-lwoadvng peritoneal fluid, increased since the prior study. No free air. LYMPH NODES: No lymphadenopathy. PELVIC ORGANS: Aguiar decompressed urinary bladder. Unremarkable uterus. No adnexal lesions. VASCULATURE: No aortic aneurysm. Scattered calcified atherosclerosis. ABDOMINAL WALL AND SOFT TISSUES: Tiny fat-containing umbilical hernia. BONES: No fracture or suspicious osseous abnormality. Degenerative changes of the spine. Grade 1 anterolisthesis of L4 on L5. CT/Abdomen/Pel W ORAL Cont Only IMPRESSION: 1. Acute colitis from the mid transverse colon through the sigmoid. 2. Mild-moderate ascites, which has increased. Reading Location: [id number] CC: CB Swanson; Dr. Ej Brown MD ~ Ug Designer: Signed [facility]10-10-2025 Radiology Diagnostic study note [facility] Imaging Services [address] [place] [address] CTA Chest W/WO Contrast MR#: [id number] Acct: [id number] Name: DAVID ALDRICH Rep #: [id number] : 1960 F 64 From: Daniel Perkins MD PCP: CB Landaverde Status: ADM I N Study:CTA Chest W/WO Contrast Date of Exam: 11/19/24 Exam# [id number] Ordering Dr: Jose Caputo PROCEDURE: CTA CHEST W/WO CONTRAST 11/19/2024 REASON FOR EXAM: R CHEST WALL HEMATOMA TECHNIQUE: Procedure Code: CTCTACHWW Modality: CT Procedure: CTA CHEST W/WO CONTRAST Multiplanar Sagittal and Coronal images were obtained. One or more dose reduction techniques were used (e.g., Automated exposure control, adjustment of the mA and/or kV according to patient size, use of iterative reconstruction technique). COMPARISON: 11/19/2024. FINDINGS: In the region of the right pectoralis muscle is a 6.8 x 2.4 cm hyperdense asymmetric region likely indicating an intramuscular hematoma. There is adjacent fat stranding degenerative changes of the spine. Dextroscoliosis. Tracefree fluid adjacent to the liver. Enlarged/prominent mediastinal lymph nodes with the largest being a right paratracheal lymphnode measuring 1.1 cm in short axis diameter mild atherosclerosis of a normal caliber thoracic aorta. The heart is normal insize. Coronary artery calcifications are present. No pulmonary artery filling defects. Mild centrilobular and paraseptal emphysema. Trace left pleural effusion. Chronic healing right 6th rib fracture. CT/CTA Chest W/WO Contrast IMPRESSION: No pulmonary embolism. 6.8 x 2.4 cm right pectoralis intramuscular hematoma with adjacent fat stranding. Similar in size when accounting for differences in measurement. Trace left pleural effusion. Mild centrilobular and paraseptal emphysema. Prominent mediastinal lymph nodes, largest right paratracheal node measuring 1.1cm in short axis diameter. Stable. Trace perihepatic free fluid. Mild atherosclerosis with coronary artery calcifications. Degenerative changes of the spine with dextroscoliosis. Reading Location: [id number] CC: CB Swanson; AUBREY Kellogg ~ Ug Designer: Signed [facility]10-10-2025 History and physical note Author Romeo Powell [facility] Note Date/Time November 19, 2024 6 :58am [facility] Medical Records Department [address] [place] [id number] H&P Exam - Hospitalist 11/19/24 0003 MR#: [id number] Acct: [id number] Name: DAVID ALDRICH Rep #:[id number] : 1960 64 From: Romeo Vogel DO PCP: CB Landaverde Status:ADM I N Location: ICU CVICU 3-1 HPI - General General Date of Admission: 11/19/24 Date of Service: 11/19/24 Chief Complaint: SOB, Wheezing and Diaphoresis. HPI Narrative DAVID ALDRICH, is a 64 F with a past medical history of essential hypertension; on lisinopril, hyperlipidemia; on atorvastatin, obesity (class I); with BMI of 31.2this admission, NAFLD, ongoing tobacco abuse; with COPD on fluticasone inhalation daily, DM-2; of unknown control on metformin daily, history of bilateral carotid artery stenosis; s/p Right CEA at [facility] (2012), PAD, history of calcium score greater than [address] scan to screen for lung CA (01/2024) with subsequent unremarkable LHC and LVEF ~71% (2022) previously evaluated by Dr. Arias of [facility], history of septic arthritis (10/2022), schizophrenia; on thiothixene twice daily, buspirone 3 times daily, bupropion twice daily plus imipramine nightly, chronic insomnia; on zolpidem nightly, history of appendectomy, history of rectal polypectomy GERD; on pantoprazole and OA; on ibuprofen 3 times daily as needed who presents to [facility] ER complaining of shortness of breath, wheezing and diaphoresis. Ms. Aldrich presented to the ER in [place] respiratory distress with shortness of breath, wheezing and diaphoresis after being transported by EMS for reported chest pain. Though history was limited she denied chest pain but she did admit to nonproductive cough and was noted to be wheezing. In the ER she was initially diagnosed with AE COPD with clinical evidence of Acute Respiratory Failure requiring BiPAP compounded by Undifferentiated Shock with Severe Hypotension of 72/25 mmHg, Severe Hypothermia of 94.4 ?F and Lactic Acidosis of 3 mmol/L both present on admission with Left subclavian CVC emergently placed inER to start norepinephrine drip in addition to Leukocytosis of 13.9 K and incidentally noted Polycythemia with hemoglobin of 18.9 g/dL present on admission (suspected to be due to combination of chronic tobacco abuse and DENNSI) all exacerbated by elevated TSH of 16.9 consistent with newly diagnosed Hypothyroidism with a corresponding CXR that revealed no acute cardiopulmonary disease followed by CTA of chest with IV contrast that showed no CT evidence of PE, mild chronic fibro-emphysematous pulmonary changes with mediastinal lymphadenopathy and soft tissue thickening in the bilateral hilar regions which may represent lymphadenopathy or peribronchial infiltrates with recommendation to clinically correlate for Bronchitis with moderate thoracic spondylosis with mild dextroconvex scoliosis. CT scan of the abdomen pelvis was recommended and is still pending at this time in addition to IV methylprednisolone to help potentially clarify etiology of shock. She was then admitted to the ICU for ongoing care for stay that is expected to extend beyond 2 midnights. [facility] Medical History Nicotine use disorder Septic arthritis Elevated coronary artery calcium score Neck pain Bilateral carotid artery stenosis Snoring Peripheral arterial disease Fatty liver disease, nonalcoholic Major depressive disorder, recurrent episode Bradycardia Palpitations SOB (shortness of breath) Diabetic acetonemia COPD (chronic obstructive pulmonary disease) Hyperlipidemia Home Medications ?Medication ?Instructions ?Recorded ?Last Taken ?Type atorvastatin 20 mg tablet 20 mg PO QHS 12/22/17 Unknow n History lisinopril 5 mg tablet 5 mg PO DAILY 12/22/17 Unkno wn History metformin 500 mg tablet 500 mg PO DAILY 12/22/17 Unk nown History aspirin 81 mg tablet,delayed 81 mg PO QDAY 01/14/24 Un known History release (Adult Aspirin Regimen) bupropion HCl 150 mg tablet,12 hr 150 mg PO BID Unknown History sustained-release (Wellbutrin SR) buspirone 5 mg tablet 5 mg PO TID 01/14/24 Unknown History cyclobenzaprine 5 mg tablet 5 mg PO TID PRN 01/14/24 U nknown History fluticasone fur. 100 mcg-umeclid 1 inh inhalation QDAY 01/14/24 Unknown History 62.5 mcg-vilant 25 mcg inhalat.powder (Trelegy Ellipta) ibuprofen 800 mg tablet 800 mg PO Q8H PRN 01/14/24 U nknown History imipramine HCl 50 mg tablet 150 mg PO QHS 01/14/24 Unk nown History ondansetron HCl 4 mg tablet 4 mg PO Q8H PRN 01/14/24 U nknown History thiothixene 2 mg capsule 2 mg PO BID 01/14/24 Unknown History zolpidem 10 mg tablet (Ambien) 10 mg PO QHS PRN sleep 01/14/24 Unknown History melatonin 5 mg capsule mg PO PRN 01/21/24 Unknown H istory pantoprazole 40 mg tablet,delayed 40 mg PO DAILY #90 t abs 03/26/24 Unknown Rx release Allergy/AdvReac Type Severity Reaction Status Date / Time simvastatin Allergy Other Verified 11/18/24 21:07 Family History Mother Heart disease Father Diabetes Brother Parkinson's disease Surgical History History of arthroscopy of knee History of colonoscopy History of rectal polypectomy History of cardiac catheterization H/O carotid endarterectomy History of appendectomy Social History household members: children Smoking Status: Current every day smoker tobacco type: cigarettes alcohol intake: never substance use type: does not use caffeine: Yes ROS ROS Narrative 4 view systems was not possible due to patient being in respiratory distress on BiPAP. Vital Signs Vital Signs Vital Signs: 11/18/24 20:34 11/18/24 20:55 11/18/24 20:59 Temperature 81 F L Temperature Source Temporal Pulse Rate 85 88 Respiratory Rate 30 H 30 H Respiratory Pattern Tachypnea Blood Pressure 72/56 L Blood Pressure Mean 61 Blood Pressure Source Pulse Ox 65 100 100 Oxygen Delivery Method Room Air Bi-pap Oxygen Flow Rate (L/min) Fraction of Inspired Oxygen (FIO2) 100 11/18/24 21:00 11/18/24 21:01 11/18/24 21:02 Temperature Temperature Source Pulse Rate 91 91 91 Respiratory Rate 32 H 29 H 30 H Respiratory Pattern Blood Pressure 54/45 L 54/45 L 64/43 L Blood Pressure Mean 49 48 50 Blood Pressure Source Pulse Ox 100 Oxygen Delivery Method Bi-pap Oxygen Flow Rate (L/min) Fraction of Inspired Oxygen (FIO2) 11/18/24 21:04 11/18/24 21:06 11/18/24 21:06 Temperature Temperature Source Pulse Rate 88 81 Respiratory Rate 32 H 24 H Respiratory Pattern Tachypnea Blood Pressure 64/43 L Blood Pressure Mean 50 Blood Pressure Source Pulse Ox 100 100 Oxygen Delivery Method Bi-pap Bi-pap Oxygen Flow Rate (L/min) Fraction of Inspired Oxygen (FIO2) 11/18/24 21:10 11/18/24 21:10 11/18/24 21:11 Temperature Temperature Source Pulse Rate 75 74 Respiratory Rate 27 H 30 H Respiratory Pattern Blood Pressure 69/30 L 63/21 L 69/30 L Blood Pressure Mean 40 36 43 Blood Pressure Source Pulse Ox 100 Oxygen Delivery Method Bi-pap Oxygen Flow Rate (L/min) Fraction of Inspired Oxygen (FIO2) 11/18/24 21:15 11/18/24 21:15 11/18/24 21:20 Temperature Temperature Source Pulse Rate 72 68 72 Respiratory Rate 32 H 27 H 25 H Respiratory Pattern Tachypnea Blood Pressure 70/34 L 73/32 L Blood Pressure Mean 46 45 Blood Pressure Source Pulse Ox 100 100 100 Oxygen Delivery Method Oxygen Flow Rate (L/min) Fraction of Inspired Oxygen (FIO2) 28 11/18/24 21:25 11/18/24 21:30 11/18/24 21:35 Temperature 93.9 F L 94.2 F L Temperature Source Core Core Pulse Rate 79 93 87 Respiratory Rate 21 H 19 H 25 H Respiratory Pattern Blood Pressure 90/37 L 65/34 L 81/42 L Blood Pressure Mean 53 42 55 Blood Pressure Source Pulse Ox 98 100 100 Oxygen Delivery Method Oxygen Flow Rate (L/min) Fraction of Inspired Oxygen (FIO2) 11/18/24 21:36 11/18/24 21:40 11/18/24 21:45 Temperature 94.2 F L 94.4 F L Temperature Source Core Core Pulse Rate 87 85 Respiratory Rate 25 H 24 H Respiratory Pattern Blood Pressure 81/42 L 74/38 L 75/46 L Blood Pressure Mean 55 51 55 Blood Pressure Source Pulse Ox 100 100 Oxygen Delivery Method Bi-pap Oxygen Flow Rate (L/min) Fraction of Inspired Oxygen (FIO2) 11/18/24 21:50 11/18/24 21:55 11/18/24 22:00 Temperature 94.2 F L 94.2 F L 94.1 F L Temperature Source Core Core Core Pulse Rate 86 84 85 Respiratory Rate 24 H 24 H 25 H Respiratory Pattern Blood Pressure 76/50 L 72/31 L Blood Pressure Mean 59 39 Blood Pressure Source Pulse Ox 99 100 100 Oxygen Delivery Method Oxygen Flow Rate (L/min) Fraction of Inspired Oxygen (FIO2) 11/18/24 22:01 11/18/24 22:06 11/18/24 22:06 Temperature 94.1 F L 94.3 F L 94.1 F L Temperature Source Core Core Core Pulse Rate 96 80 85 Respiratory Rate 24 H 22 H 23 H Respiratory Pattern Blood Pressure 59/37 L 70/43 L 65/50 L Blood Pressure Mean 44 52 56 Blood Pressure Source Pulse Ox 100 100 Oxygen Delivery Method Nasal Cannula Oxygen Flow Rate (L/min) 2 Fraction of Inspired Oxygen (FIO2) 11/18/24 22:10 11/18/24 22:15 11/18/24 22:20 Temperature 94.1 F L 94.1 F L 94.2 F L Temperature Source Core Core Core Pulse Rate 81 80 Respiratory Rate 22 H 23 H Respiratory Pattern Blood Pressure 70/58 L 66/38 L 65/46 L Blood Pressure Mean 64 48 54 Blood Pressure Source Pulse Ox 100 100 Oxygen Delivery Method Oxygen Flow Rate (L/min) Fraction of Inspired Oxygen (FIO2) 11/18/24 22:21 11/18/24 22:25 11/18/24 22:26 Temperature 94.2 F L 94.3 F L Temperature Source Core Core Pulse Rate 65 80 Respiratory Rate 22 H Respiratory Pattern Blood Pressure 65/46 L 70/43 L 70/43 L Blood Pressure Mean 52 52 52 Blood Pressure Source Monitor Pulse Ox 100 100 Oxygen Delivery Method Nasal Cannula Oxygen Flow Rate (L/min) 2 Fraction of Inspired Oxygen (FIO2) 11/18/24 22:30 11/18/24 22:30 11/18/24 22:35 Temperature 94.3 F L 94.3 F L 94.3 F L Temperature Source Core Core Core Pulse Rate 88 86 Respiratory Rate 22 H 21 H Respiratory Pattern Blood Pressure 79/48 L 68/43 L 73/44 L Blood Pressure Mean 58 51 54 Blood Pressure Source Pulse Ox 100 100 Oxygen Delivery Method Nasal Cannula Oxygen Flow Rate (L/min) 2 Fraction of Inspired Oxygen (FIO2) 11/18/24 22:37 11/18/24 22:40 11/18/24 22:45 Temperature 94.3 F L 94.4 F L Temperature Source Core Core Pulse Rate 95 88 90 Respiratory Rate 22 H 22 H Respiratory Pattern Blood Pressure 73/44 L 79/48 L 82/54 L Blood Pressure Mean 53 58 63 Blood Pressure Source Monitor Pulse Ox 100 100 Oxygen Delivery Method Nasal Cannula Oxygen Flow Rate (L/min) 2 Fraction of Inspired Oxygen (FIO2) 11/18/24 22:45 11/18/24 22:50 11/18/24 23:00 Temperature 94.4 F L 94.4 F L 94.3 F L Temperature Source Core Core Core Pulse Rate 90 95 88 Respiratory Rate 19 H 18 18 Respiratory Pattern Blood Pressure 82/54 L 72/25 L 87/40 L Blood Pressure Mean 64 39 55 Blood Pressure Source Pulse Ox 100 97 Oxygen Delivery Method Nasal Cannula Room Air Oxygen Flow Rate (L/min) 2 Fraction of Inspired Oxygen (FIO2) 11/18/24 23:05 11/18/24 23:06 11/18/24 23:10 Temperature 94.3 F L 94.2 F L Temperature Source Core Core Pulse Rate 89 86 145 H Respiratory Rate 23 H 19 H Respiratory Pattern Blood Pressure 87/40 L 87/40 L 104/47 L Blood Pressure Mean 55 55 62 Blood Pressure Source Pulse Ox 95 97 Oxygen Delivery Method Room Air Room Air Oxygen Flow Rate (L/min) Fraction of Inspired Oxygen (FIO2) 11/18/24 23:15 11/18/24 23:17 11/18/24 23:20 Temperature 94.1 F L 94.2 F L Temperature Source Core Core Pulse Rate 91 91 93 Respiratory Rate 15 18 18 Respiratory Pattern Blood Pressure 106/59 L 106/59 L 116/46 L Blood Pressure Mean 66 74 65 Blood Pressure Source Pulse Ox 98 95 98 Oxygen Delivery Method Room Air Room Air Oxygen Flow Rate (L/min) Fraction of Inspired Oxygen (FIO2) 11/18/24 23:25 11/18/24 23:30 11/18/24 23:30 Temperature 94.2 F L 94.3 F L Temperature Source Core Core Pulse Rate 96 99 95 Respiratory Rate 17 19 H 18 Respiratory Pattern Blood Pressure 118/62 124/72 H 117/64 Blood Pressure Mean 74 89 80 Blood Pressure Source Pulse Ox 98 97 97 Oxygen Delivery Method Room Air Room Air Oxygen Flow Rate (L/min) Fraction of Inspired Oxygen (FIO2) 11/18/24 23:35 11/18/24 23:45 11/18/24 23:55 Temperature 94.4 F L 94.6 F L Temperature Source Core Core Pulse Rate 97 99 100 Respiratory Rate 16 16 Respiratory Pattern Blood Pressure 131/62 H 124/72 H 124/72 H Blood Pressure Mean 79 88 89 Blood Pressure Source Monitor Pulse Ox 97 97 Oxygen Delivery Method Room Air Oxygen Flow Rate (L/min) Fraction of Inspired Oxygen (FIO2) Weight Weight: 165 lb 5.547 oz Body Mass Index (BMI) 31.2 Results Medical Records Data Attestation: I reviewed the patient's medical records Lab / Micro Data Attestation: I reviewed the patient's lab results. 11/18/24 21:00 11/18/24 21:00 Labs: Laboratory Results - last 24 hr 11/18/24 21:00: WBC 13.9 H, RBC 6.01 H, Hgb 18.9 H*, Hct 55.1 H, MCV 91.7, MCH 31.4, MCHC 34.3, RDW Std Deviation 44.1 H, RDW Coeff of Panchito 13.0, Plt Count 390,MPV 10.6, Immature Gran % (Auto) 0.800, Neut % (Auto) 55.3, Lymph % (Auto) 35.6,Sebastian % (Auto) 4.5, Eos % (Auto) 2.9, Baso % (Auto) 0.9, Absolute Neuts (auto) 7.7, Absolute Lymphs (auto) 4.95 H, Nucleated RBC % 0, PT 15.7 H, INR 1.2, APTT 32.1, Sodium 134, Potassium 4.0, Chloride 98, Carbon Dioxide 17.7 L, Anion Gap 18 H, BUN 17, Creatinine 1.36 H, Estim Creat Clear Calc 39.22 L, Est GFR (MDRD) Non-Af 44 L, BUN/Creatinine Ratio 12.4, Glucose 316 H, Calcium 10.0, Total Bilirubin 0.53, AST 64 H, ALT 38 H, Alkaline Phosphatase 115 H, Troponin T High Sens 11, Total Protein 6.8, Albumin 3.9, Globulin 2.9, Albumin/Globulin Ratio 1.3, b-Hydroxybutyric mmol/L 0.2, TSH 16.900 H 11/18/24 21:08: Lactic Acid 3.0 H* 11/18/24 21:42: Urine Color Yellow, Urine Clarity Clear, Urine pH 6.0, Ur Specific [place] 1.015, Urine Protein 100 H, Urine Glucose (UA) Normal, Urine Ketones Negative, Urine Occult Blood 10 H, Urine Nitrite Negative, Urine Bilirubin 6 H, Urine Urobilinogen Normal, Ur Leukocyte Esterase 25 H, Urine RBC 0-5 SEEN, Urine WBC 0-5 SEEN, Ur Squamous Epith Cells 0-5 SEEN, Urine Bacteria 0SEEN, Urine Mucus 0 SEEN Micro: Microbiology 11/18/24 21:04 Mucosa - Nose SARS-CoV-2, Influenza & RSV (PCR) - Final ABG Data ABG results: ABG 11/18/24 21:07 Specimen Type ART Sample Site L Radial pH 7.30 L Bicarbonate Actual 13.1 L Total CO2 14 Base Excess -13 L O2 Saturation 100 H O2 % 6.0 ABG pCO2 26.6 L ABG pO2 504 H* Nayana Test N/A O2 Delivery Device Cannula Vent Mode Not entered Crit Call To/Read Back Yes Blood Gas Notified Whom Dr Marques Blood Gas Notified Time 21:09:37 Imaging Radiology Impression Chest X-Ray 11/18/24 20:50 IMPRESSION: No acute cardiopulmonary disease. Reading Location: [id number] Chest X-Ray 11/18/24 22:34 IMPRESSION: Left subclavian central venous catheter with tip at the lower SVC. Unchanged lung aeration. No pneumothorax or sizable pleural effusion. Reading Location: [id number] Imaging Services [address] [place] [id number] CTA Chest W/WO Contrast MR#: [id number] Acct: [id number] Name: DAVID ALDRICH Rep #: [id number] : 1960 F 64 From: JuanM anuel Gleason MD PCP: CB Landaverde Status: REG ER Study: CTA Chest W/WO Contrast Date of Exam: 11/18/24 Exam# [id number] Ordering Dr: Ru Marques MD PROCEDURE: CTA CHEST W/WO CONTRAST 11/18/2024 REASON FOR EXAM: HYPOXIA, UNDIFFERENTIATED SHOCK TECHNIQUE: Procedure Code: CTCTACHWW Modality: CT Procedure: CTA CHEST W/WO CONTRAST Multiplanar Sagittal and Coronal images were obtained. CONTRAST: VOLUME: mL One or more dose reduction techniques were used (e.g., Automated exposure control, adjustment of the mA and/or kV according to patient size, use of iterative reconstruction technique). COMPARISON: Chest radiograph dated earlier on the same day. FINDINGS: No filling defect suggestive of a pulmonary embolism is identified to the secondary branches of the pulmonary arteries. Mild chronic interstitial changes including peripheral septal wall thickening, as well as mild centrilobular and paraseptal emphysematous changes which are more peripherally oriented. The heart is normal in size. There appear to be enlarged paratracheal lymph nodes. Soft tissue thickening in the bilateral hilar regions may represent hilar lymphadenopathy or peribronchial infiltrates. No acute fracture. Moderate thoracic spondylosis. Mild dextro convex thoracic scoliosis. CT/CTA Chest W/WO Contrast IMPRESSION: No CT evidence of a pulmonary embolism. Mild chronic fibroemphysematous pulmonary changes, as described above. Mediastinal lymphadenopathy. Soft tissue thickening in the bilateral hilar regions may represent hilar lymphadenopathy or peribronchial infiltrates. Please correlate clinically for bronchitis. Moderate thoracic spondylosis with mild dextro convex scoliosis. Reading Location: [id number] CC: CB Swanson; Dr. Ru Marques MD ~ Ug Designer: Signed ----- --------- [facility] Imaging Services [address] [place], [place] [id number] Abdomen/Pelvis W IV Cont ONLY MR#: [id number] Acct: [id number] Name: DAVID ALDRICH Rep #: [id number] : 1960 F 64 From: Juan Manuel Gleason MD PCP: CB Landaverde Status: ADM IN Study: Abdomen/Pelvis W IV Cont ONLY Date of Exam: 11/19/24 Exam# [id number] Ordering Dr: Ru Marques MD PROCEDURE: ABDOMEN/PELVIS W IV CONT ONLY 11/19/2024 REASON FOR EXAM: LEUKOCYTOSIS, SHOCK TECHNIQUE: Procedure Code: [id number] Modality: CT Procedure: ABDOMEN/PELVIS W IV CONT ONLY Coronal and Sagittal reconstruction series were provided. CONTRAST: VOLUME: mL One or more dose reduction techniques were used (e.g., Automated exposure control, adjustment of the mA and/or kV according to patient size, use of iterative reconstruction technique. FINDINGS: Abrupt narrowing of the proximal sigmoid colon with a short segment of wall thickening is noted (series 2, images 72 through 84), concerning for either focal colitis or a mucosal mass lesion. There is mild dilatation of the large and small bowel proximal to this focal narrowing, which could represent a low-grade partial small bowel obstruction. A large amount of stool is noted distal to this focal wall thickening within the distal sigmoid colon and rectum. There is also mild wall thickening of the duodenum with mild adjacent fat stranding, concerning for duodenitis. A Aguiar catheter is present within the urinary bladder, which contains contrast material from a previous radiological study. The liver, spleen, gallbladder, pancreas, adrenal glands, and kidneys appear unremarkable. The visualized lung bases are clear. Small hiatal hernia. Mild free fluid within the pelvis. Moderate atherosclerotic calcifications. Moderate to severe thoracolumbar spondylosis including a grade 1 anterolisthesisof L4 on L5. Mild scoliosis of the lumbar spine. CT/Abdomen/Pelvis W IV Cont ONLY IMPRESSION: 1. Abrupt narrowing of the proximal sigmoid colon with a short segment of wall thickening. This could represent focal colitis or a mucosal mass lesion. 2. Mild wall thickening of the duodenum with mild adjacent fat stranding, concerning for duodenitis. 3. Mild dilatation of the large and small bowel proximal to the focal narrowingin the proximal sigmoid colon, which could represent a low-grade partial small bowel obstruction. 4. Large amount of stool within the distal sigmoid colon and rectum. 5. Small hiatal hernia. 6. Moderate to severe thoracolumbar spondylosis with mild lumbar scoliosis. Reading Location: [id number] CC: CB Swanson; Dr. Ru Marques MD ~ Ug Designer: Signed Assessment & Plan Assessment/Plan (1) COPD exacerbation: (2) Bronchitis: (3) Acute respiratory failure: QUALIFIERS: Respiratory failure complication: unspecified whether with hypoxia or hypercapnia Qualified Code(s): J96.00 - Acute respiratory failure, unspecified whether with hypoxia or hypercapnia (4) Shock circulatory: (5) Adrenal insufficiency: (6) Severe hypotension: (7) Hypothermia: QUALIFIERS: Encounter type: initial encounter Qualified Code(s): T68.XXXA - Hypothermia, initial encounter (8) Acidosis, lactic: (9) Acquired polycythemia vera: (10) Hypothyroidism: QUALIFIERS: Hypothyroidism type: unspecified Qualified Code(s): E03.9 - Hypothyroidism, unspecified (11) Obesity (BMI 30.0-34.9): (12) NAFLD (nonalcoholic fatty liver disease): (13) Focal active colitis: (14) Duodenitis: (15) Elevated d-dimer: PLAN: Plan 1. AE COPD with clinical evidence of Acute Respiratory Failure requiring BiPAP with CTA of chest with IV contrast that showed no CT evidence of PE, mild chronic fibro-emphysematous pulmonary changes with mediastinal lymphadenopathy and soft tissue thickening in the bilateral hilar regions which may represent lymphadenopathy or peribronchial infiltrates with recommendation to clinically correlate for Bronchitis in the setting of ongoing Tobacco Abuse - Admit to ICU. Start IV methylprednisolone plus cover with empiric IV piperacillin-tazobactam and IV azithromycin. Give pantoprazole 40 mg IV daily. Give ondansetron IV prnfor nausea and vomiting. Tobacco Cessation will be strongly encouraged with Nicotine patch offered to control cravings. Finally, we will consult pulmonary/critical-care physician to see this patient on rounds in the a.m. for further recommendations without appreciated in advance. 2. Undifferentiated Shock with Severe Hypotension of 72/25 mmHg, Severe Hypothermia of 94.4 ?F, Lactic Acidosis of 3 mmol/L and Leukocytosis of 13.9 K all present on admission with Left subclavian CVC emergently placed in ER to start norepinephrine drip complicating #1 in the setting of chronic inhaled steroid use raising specter of possible adrenal Insufficiency - Give vigorous IVvolume resuscitation and maintain norepinephrine drip to keep MAP > [address] RAD hugger to raise core temperature. Serialize lactate to follow trend. Serialize troponin. Check echocardiogram to evaluate LVEF and other potential structural abnormalities that may help explain her presentation. Check d-dimer. Cortisol level pending from ER check prior to steroid administration. Check CTscan of the abdomen and pelvis to hopefully identify potential source. 3. Polycythemia with hemoglobin of 18.9 g/dL present on admission (suspected graciela due to combination of chronic tobacco abuse and DENNIS) compounding #1 & #2 - Screen for SHONDA-2 mutation. Check CBC daily to follow trend. 4. Elevated TSH of 16.9 consistent with newly diagnosed Hypothyroidism adding to the medical complexity of #1 - #3 - Start IV levothyroxine and recheck TSH in~4-6 weeks. 5. Obesity (class I); with BMI of 31.2 this admission plus NAFLD adding to the burden of disease outlined from #1 - #4 - Weight loss will be recommended. Thiscomplicates her case and may hamper recovery. 6. DM-2; of unknown control on metformin daily - Keep NPO for now. Hold metformin until further notice with elevated lactate. FSBS q. 6 hours plus lowest- intensity SSI. Check HgbA1c to objectively evaluate quality of diabetic control. 7. Essential hypertension; on lisinopril - Hold scheduled antihypertensives in light of #2. 8. Hyperlipidemia; on atorvastatin - Resume statin when patient can tolerate oral intake. 9. History of bilateral carotid artery stenosis; s/p Right CEA at [facility] (2012) - Noted. 10. PAD - Stable. 11. History of septic arthritis (10/2022) - Noted with no complaints related to joint pain. 12. Schizophrenia and Depression; on thiothixene twice daily, buspirone 3 timesdaily, bupropion twice daily plus imipramine nightly - Hold oral agents at this time. 13. Chronic insomnia; on zolpidem nightly - Noted. 14. History of appendectomy - Noted. 15. History of rectal polypectomy - Noted for the sake of completeness. 16. GERD; on pantoprazole - Resume PPI IV as outlined in #1. 17. OA; on ibuprofen 3 times daily as needed - Stable. We will give ketorolac IV as needed for pain or fever. 18. DVT prophylaxis - Enoxaparin 40 mg sq daily. Total time: Approximately (but not less than) 75 minutes. Update: Patient was ordered a CT scan of the abdomen and pelvis with IV contrastjust before leaving the ER that revealed abrupt narrowing of the proximal sigmoid colon with a short segment of wall thickening which could represent focal Colitis or mucosal mass lesion in addition to mild wall thickening of the duodenum with mild adjacent fat stranding concerning for Duodenitis in addition to mild dilatation of the large and small bowel proximal to the focal narrowing in the proximal sigmoid colon which could represent a low-grade partial small bowel obstruction with a large amount of stool within the distal sigmoid colon and rectum. In addition pelvis her D-dimer returned critically high at greater than 20; with CTA of chest with IV contrast negative for PE but now with LE Doppler pending in AM. She was already started on empiric IV piperacillin-tazobactam to cover potential gastrointestinal infections. Finally, we will consult both general surgery and gastroenterology to see this patient on rounds in the a.m. for further recommendations with help appreciated in advance. Charges/Coding Visit Charges Inpatient E&M: 81710 Init Hosp L3 11/19/24 0658 <Electronically signed by Romeo Khan DO> Cosigner Signature (if applicable): CC: CB Swanson; Dr. Romeo Khan DO~ Signed [facility] Work Phone: [phone] History and physical note [facility] Medical Records Department [address] [place] [address] H&P Exam - Hospitalist 11/19/24 0003 MR#: [id number] Acct: [id number] Name: DAVID ALDRICH Rep #:[id number] : 1960 64 From: Romeo Vogel DO PCP: Lulu Swanson PROCESS OPERATOR-C Status:ADM I N Location: ICU CVICU20 3-1 HPI - General General Date of Admission: 11/19/24 Date of Service: 11/19/24 Chief Complaint: SOB, Wheezing and Diaphoresis. HPI Narrative DAVID ALDRICH, is a 64 F with a past medical history of essential hypertension; on lisinopril, hyperlipidemia; on atorvastatin, obesity (class I); with BMI of 31.2this admission, NAFLD, ongoing tobacco abuse; with COPD on fluticasone inhalation daily, DM-2; of unknown control on metformin daily, history of bilateral carotid artery stenosis; s/p Right CEA at [facility] (2012), PAD, history of calcium score greater than [address] scan to screen for lung CA (01/2024) with subsequent unremarkable LHC and LVEF ~71% (2022) previously evaluated by Dr. Arias of [facility], history of septic arthritis (10/2022), schizophrenia; on thiothixene twice daily, buspirone 3 times daily, bupropion twice daily plus imipramine nightly, chronic insomnia; on zolpidem nightly, history of appendectomy, history of rectal polypectomy GERD; on pantoprazole and OA; on ibuprofen 3 times daily as needed who presents to [facility] ER complaining of shortness of breath, wheezing and diaphoresis. Ms. Aldrich presented to the ER in [place] respiratory distress with shortness of breath, wheezing anddiaphoresis after being transported by EMS for reported chest pain. Though history was limited she denied chest pain but she did admit to nonproductive cough and was noted to be wheezing. In the ER she was initially diagnosed with AE COPD with clinical evidence of Acute Respiratory Failure requiring BiPAP compounded by Undifferentiated Shock with Severe Hypotension of 72/25 mmHg, Severe Hypothermia of 94.4 ?F and Lactic Acidosis of 3 mmol/L both present on admission with Left subclavian CVC emergently placed inER to start norepinephrine drip in addition to Leukocytosis of 13.9 K and incidentally noted Polycythemia with hemoglobin of 18.9 g/dL present on admission (suspected to be due to combination of chronic tobacco abuse and DENNIS) all exacerbated by elevated TSH of 16.9 consistent with newly diagnosed Hypothyroidism with a corresponding CXR that revealed no acute cardiopulmonary disease followed by CTA of chest with IV contrast that showed no CT evidence of PE, mild chronic fibro-emphysematous pulmonary changes with mediastinal lymphadenopathy and soft tissue thickening in the bilateral hilar regions which may represent lymphadenopathy or peribronchial infiltrates with recommendation to clinically correlate for Bronchitis with moderate thoracic spondylosis with mild dextroconvex scoliosis. CT scan of the abdomen pelvis was recommended and is still pending at this time in addition to IV methylprednisolone to help potentially clarify etiology of shock. She was then admitted to the ICU for ongoing care for stay that is expected to extend beyond 2 midnights. [facility] Medical History Nicotine use disorder Septic arthritis Elevated coronary artery calcium score Neck pain Bilateral carotid artery stenosis Snoring Peripheral arterial disease Fatty liver disease, nonalcoholic Major depressive disorder, recurrent episode Bradycardia Palpitations SOB (shortness of breath) Diabetic acetonemia COPD (chronic obstructive pulmonary disease) Hyperlipidemia Home Medications ?Medication ?Instructions ?Recorded ?Last Taken ?Type atorvastatin 20 mg tablet 20 mg PO QHS 12/22/17 Unknow n History lisinopril 5 mg tablet 5 mg PO DAILY 12/22/17 Unkno wn History metformin 500 mg tablet 500 mg PO DAILY 12/22/17 Unk nown History aspirin 81 mg tablet,delayed 81 mg PO QDAY 01/14/24 Un known History release (Adult Aspirin Regimen) bupropion HCl 150 mg tablet,12 hr 150 mg PO BID Unknown History sustained-release (Wellbutrin SR) buspirone 5 mg tablet 5 mg PO TID 01/14/24 Unknown History cyclobenzaprine 5 mg tablet 5 mg PO TID PRN 01/14/24 U nknown History fluticasone fur. 100 mcg-umeclid 1 inh inhalation QDAY 01/14/24 Unknown History 62.5 mcg-vilant 25 mcg inhalat.powder (Trelegy Ellipta) ibuprofen 800 mg tablet 800 mg PO Q8H PRN 01/14/24 U nknown History imipramine HCl 50 mg tablet 150 mg PO QHS 01/14/24 Unk nown History ondansetron HCl 4 mg tablet 4 mg PO Q8H PRN 01/14/24 U nknown History thiothixene 2 mg capsule 2 mg PO BID 01/14/24 Unknown History zolpidem 10 mg tablet (Ambien) 10 mg PO QHS PRN sleep 01/14/24 Unknown History melatonin 5 mg capsule mg PO PRN 01/21/24 Unknown H istory pantoprazole 40 mg tablet,delayed 40 mg PO DAILY #90 t abs 03/26/24 Unknown Rx release Allergy/AdvReac Type Severity Reaction Status Date / Time simvastatin Allergy Other Verified 11/18/24 21:07 Family History Mother Heart disease Father Diabetes Brother Parkinson's disease Surgical History History of arthroscopy of knee History of colonoscopy History of rectal polypectomy History of cardiac catheterization H/O carotid endarterectomy History of appendectomy Social History household members: children Smoking Status: Current every day smoker tobacco type: cigarettes alcohol intake: never substance use type: does not use caffeine: Yes ROS ROS Narrative 4 view systems was not possible due to patient being in respiratory distress on BiPAP. Vital Signs Vital Signs Vital Signs: 11/18/24 20:34 11/18/24 20:55 11/18/24 20:59 Temperature 81 F L Temperature Source Temporal Pulse Rate 85 88 Respiratory Rate 30 H 30 H Respiratory Pattern Tachypnea Blood Pressure 72/56 L Blood Pressure Mean 61 Blood Pressure Source Pulse Ox 65 100 100 Oxygen Delivery Method Room Air Bi-pap Oxygen Flow Rate (L/min) Fraction of Inspired Oxygen (FIO2) 100 11/18/24 21:00 11/18/24 21:01 11/18/24 21:02 Temperature Temperature Source Pulse Rate 91 91 91 Respiratory Rate 32 H 29 H 30 H Respiratory Pattern Blood Pressure 54/45 L 54/45 L 64/43 L Blood Pressure Mean 49 48 50 Blood Pressure Source Pulse Ox 100 Oxygen Delivery Method Bi-pap Oxygen Flow Rate (L/min) Fraction of Inspired Oxygen (FIO2) 11/18/24 21:04 11/18/24 21:06 11/18/24 21:06 Temperature Temperature Source Pulse Rate 88 81 Respiratory Rate 32 H 24 H Respiratory Pattern Tachypnea Blood Pressure 64/43 L Blood Pressure Mean 50 Blood Pressure Source Pulse Ox 100 100 Oxygen Delivery Method Bi-pap Bi-pap Oxygen Flow Rate (L/min) Fraction of Inspired Oxygen (FIO2) 11/18/24 21:10 11/18/24 21:10 11/18/24 21:11 Temperature Temperature Source Pulse Rate 75 74 Respiratory Rate 27 H 30 H Respiratory Pattern Blood Pressure 69/30 L 63/21 L 69/30 L Blood Pressure Mean 40 36 43 Blood Pressure Source Pulse Ox 100 Oxygen Delivery Method Bi-pap Oxygen Flow Rate (L/min) Fraction of Inspired Oxygen (FIO2) 11/18/24 21:15 11/18/24 21:15 11/18/24 21:20 Temperature Temperature Source Pulse Rate 72 68 72 Respiratory Rate 32 H 27 H 25 H Respiratory Pattern Tachypnea Blood Pressure 70/34 L 73/32 L Blood Pressure Mean 46 45 Blood Pressure Source Pulse Ox 100 100 100 Oxygen Delivery Method Oxygen Flow Rate (L/min) Fraction of Inspired Oxygen (FIO2) 28 11/18/24 21:25 11/18/24 21:30 11/18/24 21:35 Temperature 93.9 F L 94.2 F L Temperature Source Core Core Pulse Rate 79 93 87 Respiratory Rate 21 H 19 H 25 H Respiratory Pattern Blood Pressure 90/37 L 65/34 L 81/42 L Blood Pressure Mean 53 42 55 Blood Pressure Source Pulse Ox 98 100 100 Oxygen Delivery Method Oxygen Flow Rate (L/min) Fraction of Inspired Oxygen (FIO2) 11/18/24 21:36 11/18/24 21:40 11/18/24 21:45 Temperature 94.2 F L 94.4 F L Temperature Source Core Core Pulse Rate 87 85 Respiratory Rate 25 H 24 H Respiratory Pattern Blood Pressure 81/42 L 74/38 L 75/46 L Blood Pressure Mean 55 51 55 Blood Pressure Source Pulse Ox 100 100 Oxygen Delivery Method Bi-pap Oxygen Flow Rate (L/min) Fraction of Inspired Oxygen (FIO2) 11/18/24 21:50 11/18/24 21:55 11/18/24 22:00 Temperature 94.2 F L 94.2 F L 94.1 F L Temperature Source Core Core Core Pulse Rate 86 84 85 Respiratory Rate 24 H 24 H 25 H Respiratory Pattern Blood Pressure 76/50 L 72/31 L Blood Pressure Mean 59 39 Blood Pressure Source Pulse Ox 99 100 100 Oxygen Delivery Method Oxygen Flow Rate (L/min) Fraction of Inspired Oxygen (FIO2) 11/18/24 22:01 11/18/24 22:06 11/18/24 22:06 Temperature 94.1 F L 94.3 F L 94.1 F L Temperature Source Core Core Core Pulse Rate 96 80 85 Respiratory Rate 24 H 22 H 23 H Respiratory Pattern Blood Pressure 59/37 L 70/43 L 65/50 L Blood Pressure Mean 44 52 56 Blood Pressure Source Pulse Ox 100 100 Oxygen Delivery Method Nasal Cannula Oxygen Flow Rate (L/min) 2 Fraction of Inspired Oxygen (FIO2) 11/18/24 22:10 11/18/24 22:15 11/18/24 22:20 Temperature 94.1 F L 94.1 F L 94.2 F L Temperature Source Core Core Core Pulse Rate 81 80 Respiratory Rate 22 H 23 H Respiratory Pattern Blood Pressure 70/58 L 66/38 L 65/46 L Blood Pressure Mean 64 48 54 Blood Pressure Source Pulse Ox 100 100 Oxygen Delivery Method Oxygen Flow Rate (L/min) Fraction of Inspired Oxygen (FIO2) 11/18/24 22:21 11/18/24 22:25 11/18/24 22:26 Temperature 94.2 F L 94.3 F L Temperature Source Core Core Pulse Rate 65 80 Respiratory Rate 22 H Respiratory Pattern Blood Pressure 65/46 L 70/43 L 70/43 L Blood Pressure Mean 52 52 52 Blood Pressure Source Monitor Pulse Ox 100 100 Oxygen Delivery Method Nasal Cannula Oxygen Flow Rate (L/min) 2 Fraction of Inspired Oxygen (FIO2) 11/18/24 22:30 11/18/24 22:30 11/18/24 22:35 Temperature 94.3 F L 94.3 F L 94.3 F L Temperature Source Core Core Core Pulse Rate 88 86 Respiratory Rate 22 H 21 H Respiratory Pattern Blood Pressure 79/48 L 68/43 L 73/44 L Blood Pressure Mean 58 51 54 Blood Pressure Source Pulse Ox 100 100 Oxygen Delivery Method Nasal Cannula Oxygen Flow Rate (L/min) 2 Fraction of Inspired Oxygen (FIO2) 11/18/24 22:37 11/18/24 22:40 11/18/24 22:45 Temperature 94.3 F L 94.4 F L Temperature Source Core Core Pulse Rate 95 88 90 Respiratory Rate 22 H 22 H Respiratory Pattern Blood Pressure 73/44 L 79/48 L 82/54 L Blood Pressure Mean 53 58 63 Blood Pressure Source Monitor Pulse Ox 100 100 Oxygen Delivery Method Nasal Cannula Oxygen Flow Rate (L/min) 2 Fraction of Inspired Oxygen (FIO2) 11/18/24 22:45 11/18/24 22:50 11/18/24 23:00 Temperature 94.4 F L 94.4 F L 94.3 F L Temperature Source Core Core Core Pulse Rate 90 95 88 Respiratory Rate 19 H 18 18 Respiratory Pattern Blood Pressure 82/54 L 72/25 L 87/40 L Blood Pressure Mean 64 39 55 Blood Pressure Source Pulse Ox 100 97 Oxygen Delivery Method Nasal Cannula Room Air Oxygen Flow Rate (L/min) 2 Fraction of Inspired Oxygen (FIO2) 11/18/24 23:05 11/18/24 23:06 11/18/24 23:10 Temperature 94.3 F L 94.2 F L Temperature Source Core Core Pulse Rate 89 86 145 H Respiratory Rate 23 H 19 H Respiratory Pattern Blood Pressure 87/40 L 87/40 L 104/47 L Blood Pressure Mean 55 55 62 Blood Pressure Source Pulse Ox 95 97 Oxygen Delivery Method Room Air Room Air Oxygen Flow Rate (L/min) Fraction of Inspired Oxygen (FIO2) 11/18/24 23:15 11/18/24 23:17 11/18/24 23:20 Temperature 94.1 F L 94.2 F L Temperature Source Core Core Pulse Rate 91 91 93 Respiratory Rate 15 18 18 Respiratory Pattern Blood Pressure 106/59 L 106/59 L 116/46 L Blood Pressure Mean 66 74 65 Blood Pressure Source Pulse Ox 98 95 98 Oxygen Delivery Method Room Air Room Air Oxygen Flow Rate (L/min) Fraction of Inspired Oxygen (FIO2) 11/18/24 23:25 11/18/24 23:30 11/18/24 23:30 Temperature 94.2 F L 94.3 F L Temperature Source Core Core Pulse Rate 96 99 95 Respiratory Rate 17 19 H 18 Respiratory Pattern Blood Pressure 118/62 124/72 H 117/64 Blood Pressure Mean 74 89 80 Blood Pressure Source Pulse Ox 98 97 97 Oxygen Delivery Method Room Air Room Air Oxygen Flow Rate (L/min) Fraction of Inspired Oxygen (FIO2) 11/18/24 23:35 11/18/24 23:45 11/18/24 23:55 Temperature 94.4 F L 94.6 F L Temperature Source Core Core Pulse Rate 97 99 100 Respiratory Rate 16 16 Respiratory Pattern Blood Pressure 131/62 H 124/72 H 124/72 H Blood Pressure Mean 79 88 89 Blood Pressure Source Monitor Pulse Ox 97 97 Oxygen Delivery Method Room Air Oxygen Flow Rate (L/min) Fraction of Inspired Oxygen (FIO2) Weight Weight: 165 lb 5.547 oz Body Mass Index (BMI) 31.2 Results Medical Records Data Attestation: I reviewed the patient's medical records Lab / Micro Data Attestation: I reviewed the patient's lab results. 11/18/24 21:00 11/18/24 21:00 Labs: Laboratory Results - last 24 hr 11/18/24 21:00: WBC 13.9 H, RBC 6.01 H, Hgb 18.9 H*, Hct 55.1 H, MCV 91.7, MCH 31.4, MCHC 34.3, RDWStd Deviation 44.1 H, RDW Coeff of Panchito 13.0, Plt Count 390,MPV 10.6, Immature Gran % (Auto) 0.800, Neut % (Auto) 55.3, Lymph % (Auto) 35.6,Sebastian % (Auto) 4.5, Eos % (Auto) 2.9, Baso % (Auto) 0.9, Absolute Neuts (auto) 7.7, Absolute Lymphs (auto) 4.95 H, Nucleated RBC % 0, PT 15.7 H, INR 1.2, APTT 32.1, Sodium 134, Potassium 4.0, Chloride 98, Carbon Dioxide 17.7 L, Anion Gap 18 H, BUN 17, Creatinine 1.36 H, Estim Creat Clear Calc 39.22 L, Est GFR (MDRD) Non-Af 44 L, BUN/Creatinine Ratio 12.4, Glucose 316 H, Calcium 10.0, Total Bilirubin 0.53, AST 64 H, ALT 38 H, Alkaline Phosphatase 115 H, Troponin T High Sens 11, Total Protein 6.8, Albumin 3.9, Globulin 2.9, Albumin/Globulin Ratio 1.3, b-Hydroxybutyric mmol/L 0.2, TSH 16.900 H 11/18/24 21:08: Lactic Acid 3.0 H* 11/18/24 21:42: Urine Color Yellow, Urine Clarity Clear, Urine pH 6.0, Ur Specific [place] 1.015, Urine Protein 100 H, Urine Glucose (UA) Normal, Urine Ketones Negative, Urine Occult Blood 10 H, Urine Nitrite Negative, Urine Bilirubin 6 H, Urine Urobilinogen Normal, Ur Leukocyte Esterase 25 H, Urine RBC 0-5 SEEN, Urine WBC 0-5 SEEN, Ur Squamous Epith Cells 0-5 SEEN, Urine Bacteria 0SEEN, Urine Mucus 0 SEEN Micro: Microbiology 11/18/24 21:04 Mucosa - Nose SARS-CoV-2, Influenza & RSV (PCR) - Final ABG Data ABG results: ABG 11/18/24 21:07 Specimen Type ART Sample Site L Radial pH 7.30 L Bicarbonate Actual 13.1 L Total CO2 14 Base Excess -13 L O2 Saturation 100 H O2 % 6.0 ABG pCO2 26.6 L ABG pO2 504 H* Nayana Test N/A O2 Delivery Device Cannula Vent Mode Not entered Crit Call To/Read Back Yes Blood Gas Notified Whom Dr Marques Blood Gas Notified Time 21:09:37 Imaging Radiology Impression Chest X-Ray 11/18/24 20:50 IMPRESSION: No acute cardiopulmonary disease. Reading Location: [id number] Chest X-Ray 11/18/24 22:34 IMPRESSION: Left subclavian central venous catheter with tip at the lower SVC. Unchanged lung aeration. No pneumothorax or sizable pleural effusion. Reading Location: [id number] Imaging Services [address] [place] [address] CTA Chest W/WO Contrast MR#: [id number] Acct: [id number] Name: DAVID ALDRICH Rep #: [id number] : 1960 F 64 From: Juan Manuel Gleason MD PCP: CB Landaverde Status: [facility] ER Study: CTA Chest W/WO Contrast Date of Exam: 11/18/24 Exam# [id number] Ordering Dr: Ru Marques MD PROCEDURE: CTA CHEST W/WO CONTRAST 11/18/2024 REASON FOR EXAM: HYPOXIA, UNDIFFERENTIATED SHOCK TECHNIQUE: Procedure Code: CTCTACHWW Modality: CT Procedure: CTA CHEST W/WO CONTRAST Multiplanar Sagittal and Coronal images were obtained. CONTRAST: VOLUME: mL One or more dose reduction techniques were used (e.g., Automated exposure control, adjustment of the mA and/or kV according to patient size, use of iterative reconstruction technique). COMPARISON: Chest radiograph dated earlier on the same day. FINDINGS: No filling defect suggestive of a pulmonary embolism is identified to the secondary branches of thepulmonary arteries. Mild chronic interstitial changes including peripheral septal wall thickening, as well as mild centrilobular and paraseptal emphysematous changes which are more peripherally oriented. The heart is normal in size. There appear to be enlarged paratracheal lymph nodes. Soft tissue thickening in the bilateral hilar regions may represent hilar lymphadenopathy or peribronchial infiltrates. No acute fracture. Moderate thoracic spondylosis. Mild dextro convex thoracic scoliosis. CT/CTA Chest W/WO Contrast IMPRESSION: No CT evidence of a pulmonary embolism. Mild chronic fibroemphysematous pulmonary changes, as described above. Mediastinal lymphadenopathy. Soft tissue thickening in the bilateral hilar regions may represent hilar lymphadenopathy or peribronchial infiltrates. Please correlate clinically for bronchitis. Moderate thoracic spondylosis with mild dextro convex scoliosis. [facility] CC: CB Swanson; Dr. Ru Marques MD ~ Ug Designer: Signed --------- [facility] Imaging Services [address] [place] [id number] Abdomen/Pelvis W IV Cont ONLY MR#: [id number] Acct: [id number] Name: DAVID ALDRICH Rep #: [id number] : 1960 F 64 From: Juan Manuel Gleason MD PCP: CB Landaverde Status: ADM IN Study: Abdomen/Pelvis W IV Cont ONLY Date of Exam: 11/19/24 Exam# [id number] Ordering Dr: Ru Marques MD PROCEDURE: ABDOMEN/PELVIS W IV CONT ONLY 11/19/2024 REASON FOR EXAM: LEUKOCYTOSIS, SHOCK TECHNIQUE: Procedure Code: CTABDPELIV Modality: CT Procedure: ABDOMEN/PELVIS W IV CONT ONLY Coronal and Sagittal reconstruction series were provided. CONTRAST: VOLUME: mL One or more dose reduction techniques were used (e.g., Automated exposure control, adjustment of the mA and/or kV according to patient size, use of iterative reconstruction technique. FINDINGS: Abrupt narrowing of the proximal sigmoid colon with a short segment of wall thickening is noted (series 2, images 72 through 84), concerning for either focal colitis or a mucosal mass lesion. There is mild dilatation of the largeand small bowel proximal to this focal narrowing, which could represent a low-grade partial small bowel obstruction. A large amount of stool is noted distal to this focal wall thickening within the distal sigmoid colon and rectum. There is also mild wall thickening of the duodenum with mild adjacent fat stranding, concerning forduodenitis. A Aguiar catheter is present within the urinary bladder, which contains contrast material from a previous radiological study. The liver, spleen, gallbladder, pancreas, adrenal glands, and kidneys appear unremarkable. The visualized lung bases are clear. Small hiatal hernia. Mild free fluid within the pelvis. Moderate atherosclerotic calcifications. Moderate to severe thoracolumbar spondylosis including a grade 1 anterolisthesisof L4 on L5. Mild scoliosis of the lumbar spine. CT/Abdomen/Pelvis W IV Cont ONLY IMPRESSION: 1. Abrupt narrowing of the proximal sigmoid colon with a short segment of wall thickening. This could represent focal colitis or a mucosal mass lesion. 2. Mild wall thickening of the duodenum with mild adjacent fat stranding, concerning for duodenitis. 3. Mild dilatation of the large and small bowel proximal to the focal narrowingin the proximal sigmoid colon, which could represent a low-grade partial small bowel obstruction. 4. Large amount of stool within the distal sigmoid colon and rectum. 5. Small hiatal hernia. 6. Moderate to severe thoracolumbar spondylosis with mild lumbar scoliosis. Reading Location: [id number] CC: CB Swanson; Dr. Ru Marques MD ~ Ug Designer: Signed Assessment & Plan Assessment/Plan (1) COPD exacerbation: (2) Bronchitis: (3) Acute respiratory failure: QUALIFIERS: Respiratory failure complication: unspecified whether with hypoxia or hypercapnia Qualified Code(s): J96.00 - Acute respiratory failure, unspecified whether with hypoxia or hypercapnia (4) Shock circulatory: (5) Adrenal insufficiency: (6) Severe hypotension: (7) Hypothermia: QUALIFIERS: Encounter type: initial encounter Qualified Code(s): T68.XXXA - Hypothermia, initial encounter (8) Acidosis, lactic: (9) Acquired polycythemia vera: (10) Hypothyroidism: QUALIFIERS: Hypothyroidism type: unspecified Qualified Code(s): E03.9 - Hypothyroidism, unspecified (11) Obesity (BMI 30.0-34.9): (12) NAFLD (nonalcoholic fatty liver disease): (13) Focal active colitis: (14) Duodenitis: (15) Elevated d-dimer: PLAN: Plan 1. AE COPD with clinical evidence of Acute Respiratory Failure requiring BiPAP with CTA of chest with IV contrast that showed no CT evidence of PE, mild chronic fibro-emphysematous pulmonary changes with mediastinal lymphadenopathy and soft tissue thickening in the bilateral hilar regions which mayrepresent lymphadenopathy or peribronchial infiltrates with recommendation to clinically correlate for Bronchitis in the setting of ongoing Tobacco Abuse - Admit to ICU. Start IV methylprednisolone plus cover with empiric IV piperacillin-tazobactam and IV azithromycin. Give pantoprazole 40 mg IV daily. Give ondansetron IV prnfor nausea and vomiting. Tobacco Cessation will be strongly encouraged with Nicotine patch offered to control cravings. Finally, we will consult pulmonary/critical-care physician to see this patient on rounds in the a.m. for further recommendations without appreciated in advance. 2. Undifferentiated Shock with Severe Hypotension of 72/25 mmHg, Severe Hypothermia of 94.4 ?F, Lactic Acidosis of 3 mmol/L and Leukocytosis of 13.9 K all present on admission with Left subclavian CVC emergently placed in ER to start norepinephrine drip complicating #1 in the setting of chronic inhaled steroid use raising specter of possible adrenal Insufficiency - Give vigorous IVvolume resuscitation and maintain norepinephrine drip to keep MAP > [address] RAD hugger to raise core temperature. Serialize lactate to follow trend. Serialize troponin. Check echocardiogram to evaluate LVEF and other potential structural abnormalities that may help explain her presentation. Check d-dimer. Cortisol level pending from ER check prior to steroid administration. Check CTscan of the abdomenand pelvis to hopefully identify potential source. 3. Polycythemia with hemoglobin of 18.9 g/dL present on admission (suspected graciela due to combination of chronic tobacco abuse and DENNIS) compounding #1 & #2 - Screen for SHONDA-2 mutation. Check CBC daily to follow trend. 4. Elevated TSH of 16.9 consistent with newly diagnosed Hypothyroidism adding to the medical complexity of #1 - #3 - Start IV levothyroxine and recheck TSH in~4- 6 weeks. 5. Obesity (class I); with BMI of 31.2 this admission plus NAFLD adding to the burden of disease outlined from #1 - #4 - Weight loss will be recommended. Thiscomplicates her case and may hamper recovery. 6. DM-2; of unknown control on metformin daily - Keep NPO for now. Hold metformin until further notice with elevated lactate. FSBS q. 6 hours plus lowest-intensity SSI. Check HgbA1c to objectively evaluate quality of diabetic control. 7. Essential hypertension; on lisinopril - Hold scheduled antihypertensives in light of #2. 8. Hyperlipidemia; on atorvastatin - Resume statin when patient can tolerate oral intake. 9. History of bilateral carotid artery stenosis; s/p Right CEA at [facility] (2012) - Noted. 10. PAD - Stable. 11. History of septic arthritis (10/2022) - Noted with no complaints related to joint pain. 12. Schizophrenia and Depression; on thiothixene twice daily, buspirone 3 timesdaily, bupropion twice daily plus imipramine nightly - Hold oral agents at this time. 13. Chronic insomnia; on zolpidem nightly - Noted. 14. History of appendectomy - Noted. 15. History of rectal polypectomy - Noted for the sake of completeness. 16. GERD; on pantoprazole - Resume PPI IV as outlined in #1. 17. OA; on ibuprofen 3 times daily as needed - Stable. We will give ketorolac IV as needed for painor fever. 18. DVT prophylaxis - Enoxaparin 40 mg sq daily. Total time: Approximately (but not less than) 75 minutes. Update: Patient was ordered a CT scan of the abdomen and pelvis with IV contrastjust before leavingthe ER that revealed abrupt narrowing of the proximal sigmoid colon with a short segment of wall thickening which could represent focal Colitis or mucosal mass lesion in addition to mild wall thickening of the duodenum with mild adjacent fat stranding concerning for Duodenitis in addition to mild dilatation of the large and small bowel proximal to the focal narrowing in the proximal sigmoid colonwhich could represent a low-grade partial small bowel obstruction with a large amount of stool within the distal sigmoid colon and rectum. In addition pelvis her D-dimer returned critically high at greater than 20; with CTA of chest with IV contrast negative for PE but now with LE Doppler pending in AM. She was already started on empiric IV piperacillin- tazobactam to cover potential gastrointestinal infections. Finally, we will consult both general surgery and gastroenterology to see this patient on rounds in the a.m. for further recommendations with help appreciated in advance. Charges/Coding Visit Charges Inpatient E&M: 41983 Init Hosp L3 11/19/24 0658 Cosigner Signature (if applicable): CC: PROCESS OPERATORSandraC Lulu Swanson; Dr. Romeo Khan, DO~ Signed [facility]10-10-2025 Radiology Diagnostic study note [facility] Imaging Services [address] [place] [address] Chest without Contrast MR#: [id number] Acct: [id number] Name: DAVID ALDRICH Rep #: [id number] : 1960 F 64 From: Betty Galindo MD PCP: CB Landaverde Status: ADM I N Study:Chest without Contrast Date of Exam: 11/19/24 Exam# [id number] Ordering Dr: Romeo Lazo DO PROCEDURE: CHEST WITHOUT CONTRAST 11/19/2024 REASON FOR EXAM: RIGHT CHEST HEMATOMA TECHNIQUE: Chest CT without contrast. Coronal and Sagittal reconstruction series were provided. One or more dose reduction techniques were used (e.g., Automated exposure control, adjustment of the mA and/or kV according to patient size, use of iterative reconstruction technique RADIATION DOSE SUMMARY: CTDlvol: 15.98 mGy DLP: 582 mGycm COMPARISON: CT scan on 11/18/2024. FINDINGS: Acute soft tissue hematoma is noted underlying the right pectoralis muscle in the interim measuring3.9 x 8.4 x 9.1 cm in its largest anteroposterior, transverse and craniocaudal dimensions respectively. Secondary mild displacement and edema of the right pectoralis muscle. Mild surrounding soft tissue edema. Unchanged mild bilateral basilar pleural thickening/effusions. Unchanged minimal bilateral basilar atelectatic pulmonary changes. Unchanged emphysema/chronic interstitial thickening. Unchanged mildly enlarged mediastinal lymph nodes with the largest measuring 1.2cm. Chronic deformity of the axillary portion of the right 6th rib. Normal unenhanced main pulmonary artery and right and left pulmonary arteries. Normal bilateral peripheral pulmonary arteries. Normal thoracic aorta and visualized great vessels. There is no demonstrated aortic aneurysm. Normal heart and pericardium. Normal visualized trachea and bronchi. CT/Chest without Contrast IMPRESSION: Coronary artery calcification (CAC) is is present Acute soft tissue hematoma is noted underlying the right pectoralis muscle in the interim measuring3.9 x 8.4 x 9.1 cm in its largest anteroposterior, transverse and craniocaudal dimensions respectively. Secondary mild displacement and edema of the right pectoralis muscle. Mild surrounding soft tissue edema. Unchanged mild bilateral basilar pleural thickening/effusions. Unchanged minimal bilateral basilar atelectatic pulmonary changes. Unchanged emphysema/chronic interstitial thickening. Unchanged mildly enlarged mediastinal lymph nodes with the largest measuring 1.2cm. Chronic deformity of the axillary portion of the right 6th rib, unchanged. Reading [id number] CC: CB Swanson; Dr. Romeo Khan, DO ~ Ug Designer: Signed [facility]10-10-2025 Evaluation note* Diagnosis Onset Date Resolution Status Admit Date Abnormal CT scan, colon acute O ctober 2024 12:48am Acidosis, lactic acute November 19, 2024 12:48am Acquired polycythemia vera acute November 19, 2024 12:48am Hypothermia acute November 19, 2024 12:48am Hypothyroidism acute November 192024 12:48am NAFLD (nonalcoholic fatty li martina disease) acute November 19 12:48am Obesity (BMI 30.0-34.9) acute O ctober 2024 12:48am Shock circulatory acute November 19, 2024 12:48am Acute respiratory failure resolved November 19, 2024 12:48am Adrenal insufficiency resolved Nov mikey 2024 12:48am Bronchitis resolved November 19, 2024 12:48am COPD exacerbation resolved November 19, 2024 12:48am Duodenitis resolved November 19, 2024 12:48am Elevated d-dimer resolved November 19, 2024 12:48am Focal active colitis resolved Novo jonathan 2024 12:48am Hematoma of right chest wall resolve d November 19, 2024 12:48am Severe hypotension resolved Novobe r 2024 12:48am [facility] Work Phone: [phone] 408-290110-10-2025 Discharge summary Author Ru Marques [facility] Note Date/Time November 19, 2024 1 2:08am [facility] Medical Records Department [address] [place] [address] Emergency Department Summary 11/18/24 MR#: [id number] Acct: [id number] Name: DAVID ALDRICH Rep #:[id number] : 1960 64 From: Ru Marques MD PCP: CB Landaverde Status:REG E R Location: ED HPI History of Present Illness Chief Complaint: Chest Pain Detail of Chief Complaint: Per nursing staff she told them chest pain. She toldme shortness of breat Informant: patient and EMS Onset/Context/Timing Onset: - (Uncertain because of decreased level of consciousness) Context: Sudden Onset (From what the nurses told me) Timing: Continuous Quality: Dyspnea, diaphoresis with cough Location: Multiple Current Severity: Severe Maximum Severity: Severe Worsened by: Unknown Relieved by: Improved with oxygen Associated Symptoms Associated Symptoms: Not able to determine for. Narrative Narrative: Patient is 64-year-old woman. she arrived by ambulance for reported chest pain. When I spoke to her once she became more lucid she complains of shortness of breath. She presently is denying chest pain. She denies fever or chills. She denies headache. She denies visual, ocular auditory symptoms. She does have a cough. The cough is nonproductive. There is no history of VTE. She has no risk factors for VTE. She denies leg pain, swelling discoloration. Patient denies abdominal pain. Patient denies urologic symptoms. Prior similar symptoms: No Recent Illness/Hospitalization: No PFSH PFSH Medical History Nicotine use disorder Septic arthritis Elevated coronary artery calcium score Neck pain Bilateral carotid artery stenosis Snoring Peripheral arterial disease Fatty liver disease, nonalcoholic Major depressive disorder, recurrent episode Bradycardia Palpitations SOB (shortness of breath) Diabetic acetonemia COPD (chronic obstructive pulmonary disease) Hyperlipidemia Home Medications ?Medication ?Instructions ?Recorded ?Last Taken ?Type atorvastatin 20 mg tablet 20 mg PO QHS 12/22/17 Unknow n History lisinopril 5 mg tablet 5 mg PO DAILY 12/22/17 Unkno wn History metformin 500 mg tablet 500 mg PO DAILY 12/22/17 Unk nown History aspirin 81 mg tablet,delayed 81 mg PO QDAY 01/14/24 Un known History release (Adult Aspirin Regimen) bupropion HCl 150 mg tablet,12 hr 150 mg PO BID Unknown History sustained-release (Wellbutrin SR) buspirone 5 mg tablet 5 mg PO TID 01/14/24 Unknown History cyclobenzaprine 5 mg tablet 5 mg PO TID PRN 01/14/24 U nknown History fluticasone fur. 100 mcg-umeclid 1 inh inhalation QDAY 01/14/24 Unknown History 62.5 mcg-vilant 25 mcg inhalat.powder (Trelegy Ellipta) ibuprofen 800 mg tablet 800 mg PO Q8H PRN 01/14/24 U nknown History imipramine HCl 50 mg tablet 150 mg PO QHS 01/14/24 Unk nown History ondansetron HCl 4 mg tablet 4 mg PO Q8H PRN 01/14/24 U nknown History thiothixene 2 mg capsule 2 mg PO BID 01/14/24 Unknown History zolpidem 10 mg tablet (Ambien) 10 mg PO QHS PRN sleep 01/14/24 Unknown History melatonin 5 mg capsule mg PO PRN 01/21/24 Unknown H istory pantoprazole 40 mg tablet,delayed 40 mg PO DAILY #90 t abs 03/26/24 Unknown Rx release Allergy/AdvReac Type Severity Reaction Status Date / Time simvastatin Allergy Other Verified 11/18/24 21:07 Family History Mother Heart disease Father Diabetes Brother Parkinson's disease Surgical History History of arthroscopy of knee History of colonoscopy History of rectal polypectomy History of cardiac catheterization H/O carotid endarterectomy History of appendectomy Social History household members: children Smoking Status: Current every day smoker tobacco type: cigarettes alcohol intake: never substance use type: does not use caffeine: Yes ROS ROS ED Review of Systems ROS Unobtainable: due to mental status Constitutional Constitutional ED: Reports other Details: Patient was cyanotic and diaphoretic upon presentation and respiratory distress ; Denies chills or fever(s) Eyes Eyes: Denies blurry vision or change in vision ENT ENT ED: Denies rhinorrhea or sore throat Cardiovascular Cardiovascular: Reports chest pain; Denies orthopnea, palpitations, paroxysmal nocturnal dyspnea or racing heartbeat Respiratory/Chest Respiratory/Chest: Reports cough and dyspnea; Denies orthopnea, paroxysmal nocturnal dyspnea or sputum Gastrointestinal Gastrointestinal: Denies diarrhea, nausea or vomiting Genitourinary Genitourinary ED: Denies dysuria, hematuria or urinary frequency Musculoskeletal Musculoskeletal: Denies arthralgias or myalgias Integumentary Denies rash Neurologic Neurologic: Denies headache(s) or paresthesias Endocrine Endocrinology: Denies cold intolerance or heat intolerance EXAM Physical Exam Const Vital Signs: 11/18/24 20:34 11/18/24 20:55 11/18/24 20:59 Temperature 81 F L Temperature Source Temporal Pulse Rate 85 88 Respiratory Rate 30 H 30 H Respiratory Pattern Tachypnea Blood Pressure 72/56 L Blood Pressure Mean 61 Blood Pressure Source Pulse Ox 65 100 100 Oxygen Delivery Method Room Air Bi-pap Oxygen Flow Rate (L/min) Fraction of Inspired Oxygen (FIO2) 100 11/18/24 21:00 11/18/24 21:01 11/18/24 21:02 Temperature Temperature Source Pulse Rate 91 91 91 Respiratory Rate 32 H 29 H 30 H Respiratory Pattern Blood Pressure 54/45 L 54/45 L 64/43 L Blood Pressure Mean 49 48 50 Blood Pressure Source Pulse Ox 100 Oxygen Delivery Method Bi-pap Oxygen Flow Rate (L/min) Fraction of Inspired Oxygen (FIO2) 11/18/24 21:04 11/18/24 21:06 11/18/24 21:06 Temperature Temperature Source Pulse Rate 88 81 Respiratory Rate 32 H 24 H Respiratory Pattern Tachypnea Blood Pressure 64/43 L Blood Pressure Mean 50 Blood Pressure Source Pulse Ox 100 100 Oxygen Delivery Method Bi-pap Bi-pap Oxygen Flow Rate (L/min) Fraction of Inspired Oxygen (FIO2) 11/18/24 21:10 11/18/24 21:10 11/18/24 21:11 Temperature Temperature Source Pulse Rate 75 74 Respiratory Rate 27 H 30 H Respiratory Pattern Blood Pressure 69/30 L 63/21 L 69/30 L Blood Pressure Mean 40 36 43 Blood Pressure Source Pulse Ox 100 Oxygen Delivery Method Bi-pap Oxygen Flow Rate (L/min) Fraction of Inspired Oxygen (FIO2) 11/18/24 21:15 11/18/24 21:15 11/18/24 21:20 Temperature Temperature Source Pulse Rate 72 68 72 Respiratory Rate 32 H 27 H 25 H Respiratory Pattern Tachypnea Blood Pressure 70/34 L 73/32 L Blood Pressure Mean 46 45 Blood Pressure Source Pulse Ox 100 100 100 Oxygen Delivery Method Oxygen Flow Rate (L/min) Fraction of Inspired Oxygen (FIO2) 28 11/18/24 21:25 11/18/24 21:30 11/18/24 21:35 Temperature 93.9 F L 94.2 F L Temperature Source Core Core Pulse Rate 79 93 87 Respiratory Rate 21 H 19 H 25 H Respiratory Pattern Blood Pressure 90/37 L 65/34 L 81/42 L Blood Pressure Mean 53 42 55 Blood Pressure Source Pulse Ox 98 100 100 Oxygen Delivery Method Oxygen Flow Rate (L/min) Fraction of Inspired Oxygen (FIO2) 11/18/24 21:36 11/18/24 21:40 11/18/24 21:45 Temperature 94.2 F L 94.4 F L Temperature Source Core Core Pulse Rate 87 85 Respiratory Rate 25 H 24 H Respiratory Pattern Blood Pressure 81/42 L 74/38 L 75/46 L Blood Pressure Mean 55 51 55 Blood Pressure Source Pulse Ox 100 100 Oxygen Delivery Method Bi-pap Oxygen Flow Rate (L/min) Fraction of Inspired Oxygen (FIO2) 11/18/24 21:50 11/18/24 21:55 11/18/24 22:00 Temperature 94.2 F L 94.2 F L 94.1 F L Temperature Source Core Core Core Pulse Rate 86 84 85 Respiratory Rate 24 H 24 H 25 H Respiratory Pattern Blood Pressure 76/50 L 72/31 L Blood Pressure Mean 59 39 Blood Pressure Source Pulse Ox 99 100 100 Oxygen Delivery Method Oxygen Flow Rate (L/min) Fraction of Inspired Oxygen (FIO2) 11/18/24 22:01 11/18/24 22:06 11/18/24 22:06 Temperature 94.1 F L 94.3 F L 94.1 F L Temperature Source Core Core Core Pulse Rate 96 80 85 Respiratory Rate 24 H 22 H 23 H Respiratory Pattern Blood Pressure 59/37 L 70/43 L 65/50 L Blood Pressure Mean 44 52 56 Blood Pressure Source Pulse Ox 100 100 Oxygen Delivery Method Nasal Cannula Oxygen Flow Rate (L/min) 2 Fraction of Inspired Oxygen (FIO2) 11/18/24 22:10 11/18/24 22:15 11/18/24 22:20 Temperature 94.1 F L 94.1 F L 94.2 F L Temperature Source Core Core Core Pulse Rate 81 80 Respiratory Rate 22 H 23 H Respiratory Pattern Blood Pressure 70/58 L 66/38 L 65/46 L Blood Pressure Mean 64 48 54 Blood Pressure Source Pulse Ox 100 100 Oxygen Delivery Method Oxygen Flow Rate (L/min) Fraction of Inspired Oxygen (FIO2) 11/18/24 22:21 11/18/24 22:25 11/18/24 22:26 Temperature 94.2 F L 94.3 F L Temperature Source Core Core Pulse Rate 65 80 Respiratory Rate 22 H Respiratory Pattern Blood Pressure 65/46 L 70/43 L 70/43 L Blood Pressure Mean 52 52 52 Blood Pressure Source Monitor Pulse Ox 100 100 Oxygen Delivery Method Nasal Cannula Oxygen Flow Rate (L/min) 2 Fraction of Inspired Oxygen (FIO2) 11/18/24 22:30 11/18/24 22:30 11/18/24 22:35 Temperature 94.3 F L 94.3 F L 94.3 F L Temperature Source Core Core Core Pulse Rate 88 86 Respiratory Rate 22 H 21 H Respiratory Pattern Blood Pressure 79/48 L 68/43 L 73/44 L Blood Pressure Mean 58 51 54 Blood Pressure Source Pulse Ox 100 100 Oxygen Delivery Method Nasal Cannula Oxygen Flow Rate (L/min) 2 Fraction of Inspired Oxygen (FIO2) 11/18/24 22:37 11/18/24 22:40 11/18/24 22:45 Temperature 94.3 F L 94.4 F L Temperature Source Core Core Pulse Rate 95 88 90 Respiratory Rate 22 H 22 H Respiratory Pattern Blood Pressure 73/44 L 79/48 L 82/54 L Blood Pressure Mean 53 58 63 Blood Pressure Source Monitor Pulse Ox 100 100 Oxygen Delivery Method Nasal Cannula Oxygen Flow Rate (L/min) 2 Fraction of Inspired Oxygen (FIO2) 11/18/24 22:45 11/18/24 22:50 11/18/24 23:00 Temperature 94.4 F L 94.4 F L 94.3 F L Temperature Source Core Core Core Pulse Rate 90 95 88 Respiratory Rate 19 H 18 18 Respiratory Pattern Blood Pressure 82/54 L 72/25 L 87/40 L Blood Pressure Mean 64 39 55 Blood Pressure Source Pulse Ox 100 97 Oxygen Delivery Method Nasal Cannula Room Air Oxygen Flow Rate (L/min) 2 Fraction of Inspired Oxygen (FIO2) 11/18/24 23:05 11/18/24 23:06 11/18/24 23:10 Temperature 94.3 F L 94.2 F L Temperature Source Core Core Pulse Rate 89 86 145 H Respiratory Rate 23 H 19 H Respiratory Pattern Blood Pressure 87/40 L 87/40 L 104/47 L Blood Pressure Mean 55 55 62 Blood Pressure Source Pulse Ox 95 97 Oxygen Delivery Method Room Air Room Air Oxygen Flow Rate (L/min) Fraction of Inspired Oxygen (FIO2) 11/18/24 23:15 11/18/24 23:17 11/18/24 23:20 Temperature 94.1 F L 94.2 F L Temperature Source Core Core Pulse Rate 91 91 93 Respiratory Rate 15 18 18 Respiratory Pattern Blood Pressure 106/59 L 106/59 L 116/46 L Blood Pressure Mean 66 74 65 Blood Pressure Source Pulse Ox 98 95 98 Oxygen Delivery Method Room Air Room Air Oxygen Flow Rate (L/min) Fraction of Inspired Oxygen (FIO2) 11/18/24 23:25 11/18/24 23:30 11/18/24 23:30 Temperature 94.2 F L 94.3 F L Temperature Source Core Core Pulse Rate 96 99 95 Respiratory Rate 17 19 H 18 Respiratory Pattern Blood Pressure 118/62 124/72 H 117/64 Blood Pressure Mean 74 89 80 Blood Pressure Source Pulse Ox 98 97 97 Oxygen Delivery Method Room Air Room Air Oxygen Flow Rate (L/min) Fraction of Inspired Oxygen (FIO2) 11/18/24 23:35 11/18/24 23:45 11/18/24 23:55 Temperature 94.4 F L 94.6 F L Temperature Source Core Core Pulse Rate 97 99 100 Respiratory Rate 16 16 Respiratory Pattern Blood Pressure 131/62 H 124/72 H 124/72 H Blood Pressure Mean 79 88 89 Blood Pressure Source Monitor Pulse Ox 97 97 Oxygen Delivery Method Room Air Oxygen Flow Rate (L/min) Fraction of Inspired Oxygen (FIO2) Positive well nourished and well developed Constitutional Narrative: Patient is cyanotic, diaphoretic and respiratory distress and blood pressure is low. Patient had a temperature of 81 degrees. Initial sat was 65%. She was placed on a nonrebreather mask. General Appearance ED: well developed, cyanotic and diaphoretic; Negative for NAD or pallor HEENT Reports dry mucous membranes HEENT Narrative: Patient has poor dentition. She has cyanosis of her ears. Nares patent. Posterior pharynx is normal. Mouth ED: Yes dry mucous membranes Mouth: dry mucous membranes Eyes PERRL and EOMs intact bilaterally General Eye ED: Negative for pale conjunctiva or scleral icterus Neck no lymphadenopathy, supple and no JVD Chest Wall Negative for inspection of chest normal or palpation of chest normal Resp No normal respiratory effort and No clear to auscultation bilaterally Resp Narrative: Patient has used accessory muscles and retractions with diminished breath soundsand high-pitched wheezing. Cardio regular rate, regular rhythm, S1 normal heart sound, S2 normal heart sound and no murmurs GI normal to inspection, nondistended, normoactive bowel sounds, non-tender, non-distended and no masses; Negative for hepatosplenomegaly GI Narrative: There is no palpable pulsatile mass. Back/Spine no CVA tenderness Extremity Extremity Narrative: Patient has acral cyanosis noted upper and lower extremities. She is mottled. Neuro No oriented x3, CN's II-XII intact bilaterally and no sensory deficits noted Sensorium / Orientation: Negative for alert Psych Mood & Affect: depressed Skin Skin Narrative: Mottled and cyanosis General Skin Exam: Negative for pallor MDM MDM MDM Narrative Medical decision making narrative: Differential diagnosis is pneumonia, pulmonary embolus, pneumothorax, congestiveheart failure, COPD exacerbation need to consider cardiac ischemia. Workup included EKG, chest x-ray appropriate blood work, blood culture since she is hypothermic. ABG was obtained. ABG reveals a metabolic acidosis with no significant AA gradient. Lab Data Attestation: I reviewed the patient's lab results. Lab results narrative: White count elevated 318.9 thousand with no shift. Competence metabolic panel shows a high anion gap acidosis. Lactate elevated 3.0. Blood sugar is [id number]. Will add a beta hydroxybutyrate. AST and ALT are slightly elevated. Patient in all likely has polycythemia vera secondary due to her smoking with Padmini&H of 18.9 and 55.1. Urinalysis is unremarkable. Labs: Laboratory Results - last 24 hr 11/18/24 11/18/24 11/18/24 21:00 21:08 21:42 WBC 13.9 H RBC 6.01 H Hgb 18.9 H* Hct 55.1 H MCV 91.7 MCH 31.4 MCHC 34.3 RDW Std Deviation 44.1 H RDW Coeff of Panchito 13.0 Plt Count 390 MPV 10.6 Immature Gran % (Auto) 0.800 Neut % (Auto) 55.3 Lymph % (Auto) 35.6 Sebastian % (Auto) 4.5 Eos % (Auto) 2.9 Baso % (Auto) 0.9 Absolute Neuts (auto) 7.7 Absolute Lymphs (auto) 4.95 H Nucleated RBC % 0 PT 15.7 H INR 1.2 APTT 32.1 Sodium 134 Potassium 4.0 Chloride 98 Carbon Dioxide 17.7 L Anion Gap 18 H BUN 17 Creatinine 1.36 H Estim Creat Clear Calc 39.22 L Est GFR (MDRD) Non-Af 44 L BUN/Creatinine Ratio 12.4 Glucose 316 H Lactic Acid 3.0 H* Calcium 10.0 Total Bilirubin 0.53 AST 64 H ALT 38 H Alkaline Phosphatase 115 H Troponin T High Sens 11 Total Protein 6.8 Albumin 3.9 Globulin 2.9 Albumin/Globulin Ratio 1.3 b-Hydroxybutyric mmol/L 0.2 TSH 16.900 H Urine Color Yellow Urine Clarity Clear Urine pH 6.0 Ur Specific [place] 1.015 Urine Protein 100 H Urine Glucose (UA) Normal Urine Ketones Negative Urine Occult Blood 10 H Urine Nitrite Negative Urine Bilirubin 6 H Urine Urobilinogen Normal Ur Leukocyte Esterase 25 H Urine RBC 0-5 SEEN Urine WBC 0-5 SEEN Ur Squamous Epith Cells 0-5 SEEN Urine Bacteria 0 SEEN Urine Mucus 0 SEEN ABG Data ABG results: ABG 11/18/24 21:07 Specimen Type ART Sample Site L Radial pH 7.30 L Bicarbonate Actual 13.1 L Total CO2 14 Base Excess -13 L O2 Saturation 100 H O2 % 6.0 ABG pCO2 26.6 L ABG pO2 504 H* Nayana Test N/A O2 Delivery Device Cannula Vent Mode Not entered Crit Call To/Read Back Yes Blood Gas Notified Whom Dr Marques Blood Gas Notified Time 21:09:37 Radiography Chest X-Ray - ED: 1 View (Chest x-ray status post left subclavian line reveals no pneumothorax. It is unchanged from prior. Subclavian line is at above the right atrium.), Read by ED Physician, Normal, Heart, Mediastinum, No Acute Disease and Chronic Changes (There is no infiltrate, effusion or pneumothorax. Osseous structures are unremarkable.) Diagnostic Testing: Clinical Impression(s) from Imaging Studies Chest X-Ray 11/18/24 20:50 IMPRESSION: No acute cardiopulmonary disease. Reading Location: [facility] Chest X-Ray 11/18/24 22:34 IMPRESSION: Left subclavian central venous catheter with tip at the lower SVC. Unchanged lung aeration. No pneumothorax or sizable pleural effusion. Reading Location: [facility] EKG Initial EKG: Attestation: I personally reviewed and interpreted this EKG as follows: Interpretation: Sinus Rhythm (Rate is 94. There are premature atrial beats noted. [place] to the left. Patient has an RR prime in V1. NE interval is 160 ms. QS duration 96 ms. QT duration is 98 ms. There is motion artifact noted.) Management Discussion w/another healthcare provider: Hospitalist (Spoke with Dr. Romeo Vizcaino. He requested a CT of the abdomen since the cause of her shock is unknown. Will add on a cortisol level prior to administration of Solu-Medrol. Plan is admit to ICU) Treatment and Re-Evaluation :: I was informed by nursing staff patient remains hypotensive after 3 L of normal saline. Peripheral Levophed was started and will change to central line once established. Patient is in critical condition verbal consent was obtained. Uncertain whether she truly comprehends and this was an implied consent. Patient was prepped draped sterile manner for right IJ right subclavian. The right IJ was not attempted because the vein was over the carotid artery and she had carotid endarterectomy performed on that side. 3 attempts were made at cannulating the right subclavian vein. There was no flash of blood or air. Patient was prepped for a left subclavian and left internal jugular. The left internal jugular was small. Did not attempt. The left subclavian vein was successfully cannulated on first attempt weigh-in. Using Seldinger technique 7.5 [place] triple-lumen was placed. Blood was aspirated from all 3 ports. Willconvert Levophed to the central line. Will obtain chest x-ray to rule out pneumothorax and determine position of subclavian. Comments:: I was made aware that nurse indicated sepsis indicators were noted. At this time I do not know if patient has sepsis or not. Will obtain CTA to evaluate for pulmonary embolus at this time. Time of this addendum was 2252 Critical Care Time Critical Care Time: Yes Critical care time (excluding procedures): 30-74 minutes (38), Including time spent: (History, physical, documentation, independent or potation laboratory results and imaging), Discussing w/Patient &/or Family/Rags Laborer, Discussing w/Consultants (Hospitalist), Arranging Admission or Transfer (Admit to ICU) and Performing Direct Patient Care at Bedside (Management of hypotension with peripheral Levophed. Subclavian was placed because patient has undifferentiatedshock. She is presently on Levophed. She is also hypothermic.) Discharge Plan Dx/Rx/DC Orders Clinical Impression: Shock circulatory, COPD with acute exacerbation, Acute bronchospasm, Acidosis, lactic, Type 2 diabetes mellitus with hyperglycemia, Leukocytosis, Acquired polycythemia vera, Peripheral arterial disease, Fatty liver disease, nonalcoholic, Hypothermia, Hypothyroidism Disposition Disposition: Acute Care Hospital [facility] What to do if you have Problems For any increased pain, shortness of breath, bleeding, nausea or vomiting, chestpain, or any unexpected problems, contact your Primary Care Provider. Call [facility] ([phone]) or report to the closest Emergency Room. Call 911 if necessary. 11/19/24 0008 <Electronically signed by Ru Marques MD> Cosigner Signature (if applicable): CC: CB Swanson ~ Signed [facility] Work Phone: [phone] 871-801610-10-2025 Radiology Diagnostic study note [facility] Imaging Services [address] [place], [place] [address] Abdomen/Pelvis W IV Cont ONLY MR#: [id number] Acct: [id number] Name: DAVID ALDRICH Rep #: [id number] : 1960 F 64 From: Jose Alejandro Gleason MD PCP: CB Landaverde Status: ADM I N Study:Abdomen/Pelvis W IV Cont ONLY Date of E xam: 11/19/24 Exam# [id number] Ordering Dr: Constantino Marques MD PROCEDURE: ABDOMEN/PELVIS W IV CONT ONLY 11/19/2024 REASON FOR EXAM: LEUKOCYTOSIS, SHOCK TECHNIQUE: Procedure Code: [id number] Modality: CT Procedure: ABDOMEN/PELVIS W IV CONT ONLY Coronal and Sagittal reconstruction series were provided. CONTRAST: VOLUME: mL One or more dose reduction techniques were used (e.g., Automated exposure control, adjustment of the mA and/or kV according to patient size, use of iterative reconstruction technique. FINDINGS: Abrupt narrowing of the proximal sigmoid colon with a short segment of wall thickening is noted (series 2, images 72 through 84), concerning for either focal colitis or a mucosal mass lesion. There is mild dilatation of the largeand small bowel proximal to this focal narrowing, which could represent a low-grade partial small bowel obstruction. A large amount of stool is noted distal to this focal wall thickening within the distal sigmoid colon and rectum. There is also mild wall thickening of the duodenum with mild adjacent fat stranding, concerning forduodenitis. A Aguiar catheter is present within the urinary bladder, which contains contrast material from a previous radiological study. The liver, spleen, gallbladder, pancreas, adrenal glands, and kidneys appear unremarkable. The visualized lung bases are clear. Small hiatal hernia. Mild free fluid within the pelvis. Moderate atherosclerotic calcifications. Moderate to severe thoracolumbar spondylosis including a grade 1 anterolisthesisof L4 on L5. Mild scoliosis of the lumbar spine. CT/Abdomen/Pelvis W IV Cont ONLY IMPRESSION: 1. Abrupt narrowing of the proximal sigmoid colon with a short segment of wall thickening. This could represent focal colitis or a mucosal mass lesion. 2. Mild wall thickening of the duodenum with mild adjacent fat stranding, concerning for duodenitis. 3. Mild dilatation of the large and small bowel proximal to the focal narrowingin the proximal sigmoid colon, which could represent a low-grade partial small bowel obstruction. 4. Large amount of stool within the distal sigmoid colon and rectum. 5. Small hiatal hernia. 6. Moderate to severe thoracolumbar spondylosis with mild lumbar scoliosis. Reading Location: [id number] CC: CB Swanson; Dr. Ru Marques MD ~ Ug Designer: Signed [facility]10-10-2025 Radiology Diagnostic study note [facility] Imaging Services [address] [place], [place] [id number] CTA Chest W/WO Contrast MR#: [id number] Acct: [id number] Name: DAVID ALDRICH Rep #: [id number] : 1960 F 64 From: Jose Alejandro Gleason MD PCP: CB Landaverde Status: REG E R Study:CTA Chest W/WO Contrast Date of Exam: 11/18/24 Exam# [id number] Ordering Dr: Constantino Marques MD PROCEDURE: CTA CHEST W/WO CONTRAST 11/18/2024 REASON FOR EXAM: HYPOXIA, UNDIFFERENTIATED SHOCK TECHNIQUE: Procedure Code: CTCTACHWW Modality: CT Procedure: CTA CHEST W/WO CONTRAST Multiplanar Sagittal and Coronal images were obtained. CONTRAST: VOLUME: mL One or more dose reduction techniques were used (e.g., Automated exposure control, adjustment of the mA and/or kV according to patient size, use of iterative reconstruction technique). COMPARISON: Chest radiograph dated earlier on the same day. FINDINGS: No filling defect suggestive of a pulmonary embolism is identified to the secondary branches of thepulmonary arteries. Mild chronic interstitial changes including peripheral septal wall thickening, as well as mild centrilobular and paraseptal emphysematous changes which are more peripherally oriented. The heart is normal in size. There appear to be enlarged paratracheal lymph nodes. Soft tissue thickening in the bilateral hilar regions may represent hilar lymphadenopathy or peribronchial infiltrates. No acute fracture. Moderate thoracic spondylosis. Mild dextro convex thoracic scoliosis. CT/CTA Chest W/WO Contrast IMPRESSION: No CT evidence of a pulmonary embolism. Mild chronic fibroemphysematous pulmonary changes, as described above. Mediastinal lymphadenopathy. Soft tissue thickening in the bilateral hilar regions may represent hilar lymphadenopathy or peribronchial infiltrates. Please correlate clinically for bronchitis. Moderate thoracic spondylosis with mild dextro convex scoliosis. Reading Location: [id number] CC: CB Swanson; Dr. Ru Marques MD ~ Ug Designer: Signed [facility]10-10-2025 Discharge summary [facility] Medical Records Department [address] [place] [address] Emergency Department Summary 11/18/24 MR#: [id number] Acct: [id number] Name: DAVID ALDRICH Rep #:[id number] : 1960 64 From: Ru Marques MD PCP: PREMA LandaverdeC Status:REG E R Location: ED HPI History of Present Illness Chief Complaint: Chest Pain Detail of Chief Complaint: Per nursing staff she told them chest pain. She toldme shortness of breat Informant: patient and EMS Onset/Context/Timing Onset: - (Uncertain because of decreased level of consciousness) Context: Sudden Onset (From what the nurses told me) Timing: Continuous Quality: Dyspnea, diaphoresis with cough Location: Multiple Current Severity: Severe Maximum Severity: Severe Worsened by: Unknown Relieved by: Improved with oxygen Associated Symptoms Associated Symptoms: Not able to determine for. Narrative Narrative: Patient is 64-year-old woman. she arrived by ambulance for reported chest pain. When I spoke to heronce she became more lucid she complains of shortness of breath. She presently is denying chest pain. She denies fever or chills. She denies headache. She denies visual, ocular auditory symptoms. Shedoes have a cough. The cough is nonproductive. There is no history of VTE. She has no risk factors for VTE. She denies leg pain, swelling discoloration. Patient denies abdominal pain. Patient denies urologic symptoms. Prior similar symptoms: No Recent Illness/Hospitalization: No PFSH PFS Medical History Nicotine use disorder Septic arthritis Elevated coronary artery calcium score Neck pain Bilateral carotid artery stenosis Snoring Peripheral arterial disease Fatty liver disease, nonalcoholic Major depressive disorder, recurrent episode Bradycardia Palpitations SOB (shortness of breath) Diabetic acetonemia COPD (chronic obstructive pulmonary disease) Hyperlipidemia Home Medications ?Medication ?Instructions ?Recorded ?Last Taken ?Type atorvastatin 20 mg tablet 20 mg PO QHS 12/22/17 Unknow n History lisinopril 5 mg tablet 5 mg PO DAILY 12/22/17 Unkno wn History metformin 500 mg tablet 500 mg PO DAILY 12/22/17 Unk nown History aspirin 81 mg tablet,delayed 81 mg PO QDAY 01/14/24 Un known History release (Adult Aspirin Regimen) bupropion HCl 150 mg tablet,12 hr 150 mg PO BID Unknown History sustained-release (Wellbutrin SR) buspirone 5 mg tablet 5 mg PO TID 01/14/24 Unknown History cyclobenzaprine 5 mg tablet 5 mg PO TID PRN 01/14/24 U nknown History fluticasone fur. 100 mcg-umeclid 1 inh inhalation QDAY 01/14/24 Unknown History 62.5 mcg-vilant 25 mcg inhalat.powder (Trelegy Ellipta) ibuprofen 800 mg tablet 800 mg PO Q8H PRN 01/14/24 U nknown History imipramine HCl 50 mg tablet 150 mg PO QHS 01/14/24 Unk nown History ondansetron HCl 4 mg tablet 4 mg PO Q8H PRN 01/14/24 U nknown History thiothixene 2 mg capsule 2 mg PO BID 01/14/24 Unknown History zolpidem 10 mg tablet (Ambien) 10 mg PO QHS PRN sleep 01/14/24 Unknown History melatonin 5 mg capsule mg PO PRN 01/21/24 Unknown H istory pantoprazole 40 mg tablet,delayed 40 mg PO DAILY #90 t abs 03/26/24 Unknown Rx release Allergy/AdvReac Type Severity Reaction Status Date / Time simvastatin Allergy Other Verified 11/18/24 21:07 Family History Mother Heart disease Father Diabetes Brother Parkinson's disease Surgical History History of arthroscopy of knee History of colonoscopy History of rectal polypectomy History of cardiac catheterization H/O carotid endarterectomy History of appendectomy Social History household members: children Smoking Status: Current every day smoker tobacco type: cigarettes alcohol intake: never substance use type: does not use caffeine: Yes ROS ROS ED Review of Systems ROS Unobtainable: due to mental status Constitutional Constitutional ED: Reports other Details: Patient was cyanotic and diaphoretic upon presentation and respiratory distress ; Denies chills or fever(s) Eyes Eyes: Denies blurry vision or change in vision ENT ENT ED: Denies rhinorrhea or sore throat Cardiovascular Cardiovascular: Reports chest pain; Denies orthopnea, palpitations, paroxysmal nocturnal dyspnea orracing heartbeat Respiratory/Chest Respiratory/Chest: Reports cough and dyspnea; Denies orthopnea, paroxysmal nocturnal dyspnea or sputum Gastrointestinal Gastrointestinal: Denies diarrhea, nausea or vomiting Genitourinary Genitourinary ED: Denies dysuria, hematuria or urinary frequency Musculoskeletal Musculoskeletal: Denies arthralgias or myalgias Integumentary Denies rash Neurologic Neurologic: Denies headache(s) or paresthesias Endocrine Endocrinology: Denies cold intolerance or heat intolerance EXAM Physical Exam Const Vital Signs: 11/18/24 20:34 11/18/24 20:55 11/18/24 20:59 Temperature 81 F L Temperature Source Temporal Pulse Rate 85 88 Respiratory Rate 30 H 30 H Respiratory Pattern Tachypnea Blood Pressure 72/56 L Blood Pressure Mean 61 Blood Pressure Source Pulse Ox 65 100 100 Oxygen Delivery Method Room Air Bi-pap Oxygen Flow Rate (L/min) Fraction of Inspired Oxygen (FIO2) 100 11/18/24 21:00 11/18/24 21:01 11/18/24 21:02 Temperature Temperature Source Pulse Rate 91 91 91 Respiratory Rate 32 H 29 H 30 H Respiratory Pattern Blood Pressure 54/45 L 54/45 L 64/43 L Blood Pressure Mean 49 48 50 Blood Pressure Source Pulse Ox 100 Oxygen Delivery Method Bi-pap Oxygen Flow Rate (L/min) Fraction of Inspired Oxygen (FIO2) 11/18/24 21:04 11/18/24 21:06 11/18/24 21:06 Temperature Temperature Source Pulse Rate 88 81 Respiratory Rate 32 H 24 H Respiratory Pattern Tachypnea Blood Pressure 64/43 L Blood Pressure Mean 50 Blood Pressure Source Pulse Ox 100 100 Oxygen Delivery Method Bi-pap Bi-pap Oxygen Flow Rate (L/min) Fraction of Inspired Oxygen (FIO2) 11/18/24 21:10 11/18/24 21:10 11/18/24 21:11 Temperature Temperature Source Pulse Rate 75 74 Respiratory Rate 27 H 30 H Respiratory Pattern Blood Pressure 69/30 L 63/21 L 69/30 L Blood Pressure Mean 40 36 43 Blood Pressure Source Pulse Ox 100 Oxygen Delivery Method Bi-pap Oxygen Flow Rate (L/min) Fraction of Inspired Oxygen (FIO2) 11/18/24 21:15 11/18/24 21:15 11/18/24 21:20 Temperature Temperature Source Pulse Rate 72 68 72 Respiratory Rate 32 H 27 H 25 H Respiratory Pattern Tachypnea Blood Pressure 70/34 L 73/32 L Blood Pressure Mean 46 45 Blood Pressure Source Pulse Ox 100 100 100 Oxygen Delivery Method Oxygen Flow Rate (L/min) Fraction of Inspired Oxygen (FIO2) 28 11/18/24 21:25 11/18/24 21:30 11/18/24 21:35 Temperature 93.9 F L 94.2 F L Temperature Source Core Core Pulse Rate 79 93 87 Respiratory Rate 21 H 19 H 25 H Respiratory Pattern Blood Pressure 90/37 L 65/34 L 81/42 L Blood Pressure Mean 53 42 55 Blood Pressure Source Pulse Ox 98 100 100 Oxygen Delivery Method Oxygen Flow Rate (L/min) Fraction of Inspired Oxygen (FIO2) 11/18/24 21:36 11/18/24 21:40 11/18/24 21:45 Temperature 94.2 F L 94.4 F L Temperature Source Core Core Pulse Rate 87 85 Respiratory Rate 25 H 24 H Respiratory Pattern Blood Pressure 81/42 L 74/38 L 75/46 L Blood Pressure Mean 55 51 55 Blood Pressure Source Pulse Ox 100 100 Oxygen Delivery Method Bi-pap Oxygen Flow Rate (L/min) Fraction of Inspired Oxygen (FIO2) 11/18/24 21:50 11/18/24 21:55 11/18/24 22:00 Temperature 94.2 F L 94.2 F L 94.1 F L Temperature Source Core Core Core Pulse Rate 86 84 85 Respiratory Rate 24 H 24 H 25 H Respiratory Pattern Blood Pressure 76/50 L 72/31 L Blood Pressure Mean 59 39 Blood Pressure Source Pulse Ox 99 100 100 Oxygen Delivery Method Oxygen Flow Rate (L/min) Fraction of Inspired Oxygen (FIO2) 11/18/24 22:01 11/18/24 22:06 11/18/24 22:06 Temperature 94.1 F L 94.3 F L 94.1 F L Temperature Source Core Core Core Pulse Rate 96 80 85 Respiratory Rate 24 H 22 H 23 H Respiratory Pattern Blood Pressure 59/37 L 70/43 L 65/50 L Blood Pressure Mean 44 52 56 Blood Pressure Source Pulse Ox 100 100 Oxygen Delivery Method Nasal Cannula Oxygen Flow Rate (L/min) 2 Fraction of Inspired Oxygen (FIO2) 11/18/24 22:10 11/18/24 22:15 11/18/24 22:20 Temperature 94.1 F L 94.1 F L 94.2 F L Temperature Source Core Core Core Pulse Rate 81 80 Respiratory Rate 22 H 23 H Respiratory Pattern Blood Pressure 70/58 L 66/38 L 65/46 L Blood Pressure Mean 64 48 54 Blood Pressure Source Pulse Ox 100 100 Oxygen Delivery Method Oxygen Flow Rate (L/min) Fraction of Inspired Oxygen (FIO2) 11/18/24 22:21 11/18/24 22:25 11/18/24 22:26 Temperature 94.2 F L 94.3 F L Temperature Source Core Core Pulse Rate 65 80 Respiratory Rate 22 H Respiratory Pattern Blood Pressure 65/46 L 70/43 L 70/43 L Blood Pressure Mean 52 52 52 Blood Pressure Source Monitor Pulse Ox 100 100 Oxygen Delivery Method Nasal Cannula Oxygen Flow Rate (L/min) 2 Fraction of Inspired Oxygen (FIO2) 11/18/24 22:30 11/18/24 22:30 11/18/24 22:35 Temperature 94.3 F L 94.3 F L 94.3 F L Temperature Source Core Core Core Pulse Rate 88 86 Respiratory Rate 22 H 21 H Respiratory Pattern Blood Pressure 79/48 L 68/43 L 73/44 L Blood Pressure Mean 58 51 54 Blood Pressure Source Pulse Ox 100 100 Oxygen Delivery Method Nasal Cannula Oxygen Flow Rate (L/min) 2 Fraction of Inspired Oxygen (FIO2) 11/18/24 22:37 11/18/24 22:40 11/18/24 22:45 Temperature 94.3 F L 94.4 F L Temperature Source Core Core Pulse Rate 95 88 90 Respiratory Rate 22 H 22 H Respiratory Pattern Blood Pressure 73/44 L 79/48 L 82/54 L Blood Pressure Mean 53 58 63 Blood Pressure Source Monitor Pulse Ox 100 100 Oxygen Delivery Method Nasal Cannula Oxygen Flow Rate (L/min) 2 Fraction of Inspired Oxygen (FIO2) 11/18/24 22:45 11/18/24 22:50 11/18/24 23:00 Temperature 94.4 F L 94.4 F L 94.3 F L Temperature Source Core Core Core Pulse Rate 90 95 88 Respiratory Rate 19 H 18 18 Respiratory Pattern Blood Pressure 82/54 L 72/25 L 87/40 L Blood Pressure Mean 64 39 55 Blood Pressure Source Pulse Ox 100 97 Oxygen Delivery Method Nasal Cannula Room Air Oxygen Flow Rate (L/min) 2 Fraction of Inspired Oxygen (FIO2) 11/18/24 23:05 11/18/24 23:06 11/18/24 23:10 Temperature 94.3 F L 94.2 F L Temperature Source Core Core Pulse Rate 89 86 145 H Respiratory Rate 23 H 19 H Respiratory Pattern Blood Pressure 87/40 L 87/40 L 104/47 L Blood Pressure Mean 55 55 62 Blood Pressure Source Pulse Ox 95 97 Oxygen Delivery Method Room Air Room Air Oxygen Flow Rate (L/min) Fraction of Inspired Oxygen (FIO2) 11/18/24 23:15 11/18/24 23:17 11/18/24 23:20 Temperature 94.1 F L 94.2 F L Temperature Source Core Core Pulse Rate 91 91 93 Respiratory Rate 15 18 18 Respiratory Pattern Blood Pressure 106/59 L 106/59 L 116/46 L Blood Pressure Mean 66 74 65 Blood Pressure Source Pulse Ox 98 95 98 Oxygen Delivery Method Room Air Room Air Oxygen Flow Rate (L/min) Fraction of Inspired Oxygen (FIO2) 11/18/24 23:25 11/18/24 23:30 11/18/24 23:30 Temperature 94.2 F L 94.3 F L Temperature Source Core Core Pulse Rate 96 99 95 Respiratory Rate 17 19 H 18 Respiratory Pattern Blood Pressure 118/62 124/72 H 117/64 Blood Pressure Mean 74 89 80 Blood Pressure Source Pulse Ox 98 97 97 Oxygen Delivery Method Room Air Room Air Oxygen Flow Rate (L/min) Fraction of Inspired Oxygen (FIO2) 11/18/24 23:35 11/18/24 23:45 11/18/24 23:55 Temperature 94.4 F L 94.6 F L Temperature Source Core Core Pulse Rate 97 99 100 Respiratory Rate 16 16 Respiratory Pattern Blood Pressure 131/62 H 124/72 H 124/72 H Blood Pressure Mean 79 88 89 Blood Pressure Source Monitor Pulse Ox 97 97 Oxygen Delivery Method Room Air Oxygen Flow Rate (L/min) Fraction of Inspired Oxygen (FIO2) Positive well nourished and well developed Constitutional Narrative: Patient is cyanotic, diaphoretic and respiratory distress and blood pressure is low. Patient had a temperature of 81 degrees. Initial sat was 65%. She was placed on a nonrebreather mask. General Appearance ED: well developed, cyanotic and diaphoretic; Negative for NAD or pallor HEENT Reports dry mucous membranes HEENT Narrative: Patient has poor dentition. She has cyanosis of her ears. Nares patent. Posterior pharynx is normal. Mouth ED: Yes dry mucous membranes Mouth: dry mucous membranes Eyes PERRL and EOMs intact bilaterally General Eye ED: Negative for pale conjunctiva or scleral icterus Neck no lymphadenopathy, supple and no JVD Chest Wall Negative for inspection of chest normal or palpation of chest normal Resp No normal respiratory effort and No clear to auscultation bilaterally Resp Narrative: Patient has used accessory muscles and retractions with diminished breath soundsand high-pitched wheezing. Cardio regular rate, regular rhythm, S1 normal heart sound, S2 normal heart sound and no murmurs GI normal to inspection, nondistended, normoactive bowel sounds, non-tender, non- distended and no masses; Negative for hepatosplenomegaly GI Narrative: There is no palpable pulsatile mass. Back/Spine no CVA tenderness Extremity Extremity Narrative: Patient has acral cyanosis noted upper and lower extremities. She is mottled. Neuro No oriented x3, CN's II-XII intact bilaterally and no sensory deficits noted Sensorium / Orientation: Negative for alert Psych Mood & Affect: depressed Skin Skin Narrative: Mottled and cyanosis General Skin Exam: Negative for pallor MDM MDM MDM Narrative Medical decision making narrative: Differential diagnosis is pneumonia, pulmonary embolus, pneumothorax, congestiveheart failure, COPDexacerbation need to consider cardiac ischemia. Workup included EKG, chest x-ray appropriate blood work, blood culture since she is hypothermic. ABG was obtained. ABG reveals a metabolic acidosis with no significant AA gradient. Lab Data Attestation: I reviewed the patient's lab results. Lab results narrative: White count elevated 318.9 thousand with no shift. Competence metabolic panel shows a high anion gap acidosis. Lactate elevated 3.0. Blood sugar is [id number]. Will add a beta hydroxybutyrate. AST and ALT are slightly elevated. Patient in all likely has polycythemia vera secondary due to her smoking with Padmini&H of 18.9 and 55.1. Urinalysis is unremarkable. Labs: Laboratory Results - last 24 hr 11/18/24 11/18/24 11/18/24 21:00 21:08 21:42 WBC 13.9 H RBC 6.01 H Hgb 18.9 H* Hct 55.1 H MCV 91.7 MCH 31.4 MCHC 34.3 RDW Std Deviation 44.1 H RDW Coeff of Panchito 13.0 Plt Count 390 MPV 10.6 Immature Gran % (Auto) 0.800 Neut % (Auto) 55.3 Lymph % (Auto) 35.6 Sebastian % (Auto) 4.5 Eos % (Auto) 2.9 Baso % (Auto) 0.9 Absolute Neuts (auto) 7.7 Absolute Lymphs (auto) 4.95 H Nucleated RBC % 0 PT 15.7 H INR 1.2 APTT 32.1 Sodium 134 Potassium 4.0 Chloride 98 Carbon Dioxide 17.7 L Anion Gap 18 H BUN 17 Creatinine 1.36 H Estim Creat Clear Calc 39.22 L Est GFR (MDRD) Non-Af 44 L BUN/Creatinine Ratio 12.4 Glucose 316 H Lactic Acid 3.0 H* Calcium 10.0 Total Bilirubin 0.53 AST 64 H ALT 38 H Alkaline Phosphatase 115 H Troponin T High Sens 11 Total Protein 6.8 Albumin 3.9 Globulin 2.9 Albumin/Globulin Ratio 1.3 b-Hydroxybutyric mmol/L 0.2 TSH 16.900 H Urine Color Yellow Urine Clarity Clear Urine pH 6.0 Ur Specific [place] 1.015 Urine Protein 100 H Urine Glucose (UA) Normal Urine Ketones Negative Urine Occult Blood 10 H Urine Nitrite Negative Urine Bilirubin 6 H Urine Urobilinogen Normal Ur Leukocyte Esterase 25 H Urine RBC 0-5 SEEN Urine WBC 0-5 SEEN Ur Squamous Epith Cells 0-5 SEEN Urine Bacteria 0 SEEN Urine Mucus 0 SEEN ABG Data ABG results: ABG 11/18/24 21:07 Specimen Type ART Sample Site L Radial pH 7.30 L Bicarbonate Actual 13.1 L Total CO2 14 Base Excess -13 L O2 Saturation 100 H O2 % 6.0 ABG pCO2 26.6 L ABG pO2 504 H* Nayana Test N/A O2 Delivery Device Cannula Vent Mode Not entered Crit Call To/Read Back Yes Blood Gas Notified Whom Dr Marques Blood Gas Notified Time 21:09:37 Radiography Chest X-Ray - ED: 1 View (Chest x-ray status post left subclavian line reveals no pneumothorax. It is unchanged from prior. Subclavian line is at above the right atrium.), Read by ED Physician, Normal, Heart, Mediastinum, No Acute Disease and Chronic Changes (There is no infiltrate, effusion or pneumothorax. Osseous structures are unremarkable.) Diagnostic Testing: Clinical Impression(s) from Imaging Studies Chest X-Ray 11/18/24 20:50 IMPRESSION: No acute cardiopulmonary disease. Reading Location: [facility] Chest X-Ray 11/18/24 22:34 IMPRESSION: Left subclavian central venous catheter with tip at the lower SVC. Unchanged lung aeration. No pneumothorax or sizable pleural effusion. Reading Location: [facility] EKG Initial EKG: Attestation: I personally reviewed and interpreted this EKG as follows: Interpretation: Sinus Rhythm (Rate is 94. There are premature atrial beats noted. [place] to the left.Patient has an RR prime in V1. NE interval is 160 ms. QS duration 96 ms. QT duration is 98 ms. There is motion artifact noted.) Management Discussion w/another healthcare provider: Hospitalist (Spoke with Dr. Romeo Vizcaino. He requesteda CT of the abdomen since the cause of her shock is unknown. Will add on a cortisol level prior to administration of Solu-Medrol. Plan is admit to ICU) Treatment and Re-Evaluation :: I was informed by nursing staff patient remains hypotensive after 3 L of normal saline. Peripheral Levophed was started and will change to central line once established. Patient is in critical condition verbal consent was obtained. Uncertain whether she truly comprehends and this was an implied consent. Patient was prepped draped sterile manner for right IJ right subclavian. The right IJ was not attempted because the vein was over the carotid artery and she had carotid endarterectomy performed on that side. 3 attempts were made at cannulating the right subclavian vein. There was no flash of blood or air. Patient was prepped for a left subclavian and left internal jugular. The left internal jugular was small. Did not attempt. The left subclavian vein was successfully cannulated on first attempt weigh-in. Using Seldinger technique 7.5 [place] triple-lumen was placed. Blood was aspirated from all 3 ports. Willconvert Levophed to the central line. Will obtain chest x-ray to rule out pneumothorax and determine position of subclavian. Comments:: I was made aware that nurse indicated sepsis indicators were noted. At this time I do not know if patient has sepsis or not. Will obtain CTA to evaluate for pulmonary embolus at this time.Time of this addendum was 2252 Critical Care Time Critical Care Time: Yes Critical care time (excluding procedures): 30-74 minutes (38), Including time spent: (History, physical, documentation, independent or potation laboratory results and imaging), Discussing w/Patient &/or Family/Rags Laborer, Discussing w/Consultants (Hospitalist), Arranging Admission or Transfer (Admit to ICU) and Performing Direct Patient Care at Bedside (Management of hypotension with peripheral Levophed. Subclavian was placed because patient has undifferentiatedshock. She is presently on Levophed. She is also hypothermic.) Discharge Plan Dx/Rx/DC Orders Clinical Impression: Shock circulatory, COPD with acute exacerbation, Acute bronchospasm, Acidosis, lactic, Type 2 diabetes mellitus with hyperglycemia, Leukocytosis, Acquired polycythemia vera, Peripheral arterial disease, Fatty liver disease, nonalcoholic, Hypothermia, Hypothyroidism Disposition Disposition: [facility] What to do if you have Problems For any increased pain, shortness of breath, bleeding, nausea or vomiting, chestpain, or any unexpected problems, contact your Primary Care Provider. Call [facility] ([phone]) or report tothe closest Emergency Room. Call 911 if necessary. 11/19/24 0008 Cosigner Signature (if applicable): CC: FABI-Cal Swanson ~ Signed [facility]10-10-2025 Radiology Diagnostic study note [facility] Imaging Services [address] [place] [address] Chest 1 View (Portable) MR#: [id number] Acct: [id number] Name: DAVID ALDRICH Codi Rep #: [id number] : 1960 F 64 From: Shalom Galvan MD PCP: CB Landaverde Status: REG E R Study:Chest 1 View (Portable) Date of Exam: 11/18/24 Exam# [id number] Ordering Dr: Constantino Marques MD PROCEDURE: CHEST 1 VIEW (PORTABLE) 11/18/2024 REASON FOR EXAM: ON AFTER LINE PLACED TECHNIQUE: Frontal view of the chest. COMPARISON: Earlier same day 11/18/2024. FINDINGS: Left subclavian approach central venous catheter, tip at the lower SVC/left brachiocephalic junction. Clear lungs and pleura. No pneumothorax or sizable pleural effusion. Normal-sized cardiac silhouette. No significant vascular congestion. No significant osseous abnormality appreciated. RAD/Chest 1 View (Portable) IMPRESSION: Left subclavian central venous catheter with tip at the lower SVC. Unchanged lung aeration. No pneumothorax or sizable pleural effusion. Reading Location: [id number] CC: CB Swanson; Dr. Ru Marques MD ~ Ug Designer: Signed [facility]10-09-2025 Radiology Diagnostic study note [facility] Imaging Services [address] [place] [address] Chest 1 View (Portable) MR#: [id number] Acct: [id number] Name: DAVID ALDRICH Rep #: [id number] : 1960 F 64 From: Shalom Galvan MD PCP: CB Landaverde Status: REG E R Study:Chest 1 View (Portable) Date of Exam: 11/18/24 Exam# [id number] Ordering Dr: Constantino Marques MD PROCEDURE: CHEST 1 VIEW (PORTABLE) 11/18/2024 REASON FOR EXAM: HYPOXIA, RESPIRATORY DISTRESS TECHNIQUE: Frontal view of the chest. COMPARISON: None. FINDINGS: Lungs/Pleura: Clear. No pneumothorax or sizable pleural effusion. Heart/Mediastinum: Within normal limits. No significant vascular congestion. Bones/Soft tissues: Mild degenerative changes of the spine. RAD/Chest 1 View (Portable) IMPRESSION: No acute cardiopulmonary disease. Reading Location: [facility] CC: CB Swanson; Dr. Ru Marques MD ~ Ug Designer: Signed [facility]10-09-2025 Discharge summary Author Ru Marques [facility] Note Date/Time November 19, 2024 1 2:08am [facility] Medical Records Department [address] [place] [address] Emergency Department Summary 11/18/24 MR#: [id number] Acct: [id number] Name: DAVID ALDRICH Rep #:[id number] : 1960 64 From: Ru Marques MD PCP: CB Landaverde Status:REG E R Location: ED HPI History of Present Illness Chief Complaint: Chest Pain Detail of Chief Complaint: Per nursing staff she told them chest pain. She toldme shortness of breat Informant: patient and EMS Onset/Context/Timing Onset: - (Uncertain because of decreased level of consciousness) Context: Sudden Onset (From what the nurses told me) Timing: Continuous Quality: Dyspnea, diaphoresis with cough Location: Multiple Current Severity: Severe Maximum Severity: Severe Worsened by: Unknown Relieved by: Improved with oxygen Associated Symptoms Associated Symptoms: Not able to determine for. Narrative Narrative: Patient is 64-year-old woman. she arrived by ambulance for reported chest pain. When I spoke to her once she became more lucid she complains of shortness of breath. She presently is denying chest pain. She denies fever or chills. She denies headache. She denies visual, ocular auditory symptoms. She does have a cough. The cough is nonproductive. There is no history of VTE. She has no risk factors for VTE. She denies leg pain, swelling discoloration. Patient denies abdominal pain. Patient denies urologic symptoms. Prior similar symptoms: No Recent Illness/Hospitalization: No PFSH PFSH Medical History Nicotine use disorder Septic arthritis Elevated coronary artery calcium score Neck pain Bilateral carotid artery stenosis Snoring Peripheral arterial disease Fatty liver disease, nonalcoholic Major depressive disorder, recurrent episode Bradycardia Palpitations SOB (shortness of breath) Diabetic acetonemia COPD (chronic obstructive pulmonary disease) Hyperlipidemia Home Medications ?Medication ?Instructions ?Recorded ?Last Taken ?Type atorvastatin 20 mg tablet 20 mg PO QHS 12/22/17 Unknow n History lisinopril 5 mg tablet 5 mg PO DAILY 12/22/17 Unkno wn History metformin 500 mg tablet 500 mg PO DAILY 12/22/17 Unk nown History aspirin 81 mg tablet,delayed 81 mg PO QDAY 01/14/24 Un known History release (Adult Aspirin Regimen) bupropion HCl 150 mg tablet,12 hr 150 mg PO BID Unknown History sustained-release (Wellbutrin SR) buspirone 5 mg tablet 5 mg PO TID 01/14/24 Unknown History cyclobenzaprine 5 mg tablet 5 mg PO TID PRN 01/14/24 U nknown History fluticasone fur. 100 mcg-umeclid 1 inh inhalation QDAY 01/14/24 Unknown History 62.5 mcg-vilant 25 mcg inhalat.powder (Trelegy Ellipta) ibuprofen 800 mg tablet 800 mg PO Q8H PRN 01/14/24 U nknown History imipramine HCl 50 mg tablet 150 mg PO QHS 01/14/24 Unk nown History ondansetron HCl 4 mg tablet 4 mg PO Q8H PRN 01/14/24 U nknown History thiothixene 2 mg capsule 2 mg PO BID 01/14/24 Unknown History zolpidem 10 mg tablet (Ambien) 10 mg PO QHS PRN sleep 01/14/24 Unknown History melatonin 5 mg capsule mg PO PRN 01/21/24 Unknown H istory pantoprazole 40 mg tablet,delayed 40 mg PO DAILY #90 t abs 03/26/24 Unknown Rx release Allergy/AdvReac Type Severity Reaction Status Date / Time simvastatin Allergy Other Verified 11/18/24 21:07 Family History Mother Heart disease Father Diabetes Brother Parkinson's disease Surgical History History of arthroscopy of knee History of colonoscopy History of rectal polypectomy History of cardiac catheterization H/O carotid endarterectomy History of appendectomy Social History household members: children Smoking Status: Current every day smoker tobacco type: cigarettes alcohol intake: never substance use type: does not use caffeine: Yes ROS ROS ED Review of Systems ROS Unobtainable: due to mental status Constitutional Constitutional ED: Reports other Details: Patient was cyanotic and diaphoretic upon presentation and respiratory distress ; Denies chills or fever(s) Eyes Eyes: Denies blurry vision or change in vision ENT ENT ED: Denies rhinorrhea or sore throat Cardiovascular Cardiovascular: Reports chest pain; Denies orthopnea, palpitations, paroxysmal nocturnal dyspnea or racing heartbeat Respiratory/Chest Respiratory/Chest: Reports cough and dyspnea; Denies orthopnea, paroxysmal nocturnal dyspnea or sputum Gastrointestinal Gastrointestinal: Denies diarrhea, nausea or vomiting Genitourinary Genitourinary ED: Denies dysuria, hematuria or urinary frequency Musculoskeletal Musculoskeletal: Denies arthralgias or myalgias Integumentary Denies rash Neurologic Neurologic: Denies headache(s) or paresthesias Endocrine Endocrinology: Denies cold intolerance or heat intolerance EXAM Physical Exam Const Vital Signs: 11/18/24 20:34 11/18/24 20:55 11/18/24 20:59 Temperature 81 F L Temperature Source Temporal Pulse Rate 85 88 Respiratory Rate 30 H 30 H Respiratory Pattern Tachypnea Blood Pressure 72/56 L Blood Pressure Mean 61 Blood Pressure Source Pulse Ox 65 100 100 Oxygen Delivery Method Room Air Bi-pap Oxygen Flow Rate (L/min) Fraction of Inspired Oxygen (FIO2) 100 11/18/24 21:00 11/18/24 21:01 11/18/24 21:02 Temperature Temperature Source Pulse Rate 91 91 91 Respiratory Rate 32 H 29 H 30 H Respiratory Pattern Blood Pressure 54/45 L 54/45 L 64/43 L Blood Pressure Mean 49 48 50 Blood Pressure Source Pulse Ox 100 Oxygen Delivery Method Bi-pap Oxygen Flow Rate (L/min) Fraction of Inspired Oxygen (FIO2) 11/18/24 21:04 11/18/24 21:06 11/18/24 21:06 Temperature Temperature Source Pulse Rate 88 81 Respiratory Rate 32 H 24 H Respiratory Pattern Tachypnea Blood Pressure 64/43 L Blood Pressure Mean 50 Blood Pressure Source Pulse Ox 100 100 Oxygen Delivery Method Bi-pap Bi-pap Oxygen Flow Rate (L/min) Fraction of Inspired Oxygen (FIO2) 11/18/24 21:10 11/18/24 21:10 11/18/24 21:11 Temperature Temperature Source Pulse Rate 75 74 Respiratory Rate 27 H 30 H Respiratory Pattern Blood Pressure 69/30 L 63/21 L 69/30 L Blood Pressure Mean 40 36 43 Blood Pressure Source Pulse Ox 100 Oxygen Delivery Method Bi-pap Oxygen Flow Rate (L/min) Fraction of Inspired Oxygen (FIO2) 11/18/24 21:15 11/18/24 21:15 11/18/24 21:20 Temperature Temperature Source Pulse Rate 72 68 72 Respiratory Rate 32 H 27 H 25 H Respiratory Pattern Tachypnea Blood Pressure 70/34 L 73/32 L Blood Pressure Mean 46 45 Blood Pressure Source Pulse Ox 100 100 100 Oxygen Delivery Method Oxygen Flow Rate (L/min) Fraction of Inspired Oxygen (FIO2) 28 11/18/24 21:25 11/18/24 21:30 11/18/24 21:35 Temperature 93.9 F L 94.2 F L Temperature Source Core Core Pulse Rate 79 93 87 Respiratory Rate 21 H 19 H 25 H Respiratory Pattern Blood Pressure 90/37 L 65/34 L 81/42 L Blood Pressure Mean 53 42 55 Blood Pressure Source Pulse Ox 98 100 100 Oxygen Delivery Method Oxygen Flow Rate (L/min) Fraction of Inspired Oxygen (FIO2) 11/18/24 21:36 11/18/24 21:40 11/18/24 21:45 Temperature 94.2 F L 94.4 F L Temperature Source Core Core Pulse Rate 87 85 Respiratory Rate 25 H 24 H Respiratory Pattern Blood Pressure 81/42 L 74/38 L 75/46 L Blood Pressure Mean 55 51 55 Blood Pressure Source Pulse Ox 100 100 Oxygen Delivery Method Bi-pap Oxygen Flow Rate (L/min) Fraction of Inspired Oxygen (FIO2) 11/18/24 21:50 11/18/24 21:55 11/18/24 22:00 Temperature 94.2 F L 94.2 F L 94.1 F L Temperature Source Core Core Core Pulse Rate 86 84 85 Respiratory Rate 24 H 24 H 25 H Respiratory Pattern Blood Pressure 76/50 L 72/31 L Blood Pressure Mean 59 39 Blood Pressure Source Pulse Ox 99 100 100 Oxygen Delivery Method Oxygen Flow Rate (L/min) Fraction of Inspired Oxygen (FIO2) 11/18/24 22:01 11/18/24 22:06 11/18/24 22:06 Temperature 94.1 F L 94.3 F L 94.1 F L Temperature Source Core Core Core Pulse Rate 96 80 85 Respiratory Rate 24 H 22 H 23 H Respiratory Pattern Blood Pressure 59/37 L 70/43 L 65/50 L Blood Pressure Mean 44 52 56 Blood Pressure Source Pulse Ox 100 100 Oxygen Delivery Method Nasal Cannula Oxygen Flow Rate (L/min) 2 Fraction of Inspired Oxygen (FIO2) 11/18/24 22:10 11/18/24 22:15 11/18/24 22:20 Temperature 94.1 F L 94.1 F L 94.2 F L Temperature Source Core Core Core Pulse Rate 81 80 Respiratory Rate 22 H 23 H Respiratory Pattern Blood Pressure 70/58 L 66/38 L 65/46 L Blood Pressure Mean 64 48 54 Blood Pressure Source Pulse Ox 100 100 Oxygen Delivery Method Oxygen Flow Rate (L/min) Fraction of Inspired Oxygen (FIO2) 11/18/24 22:21 11/18/24 22:25 11/18/24 22:26 Temperature 94.2 F L 94.3 F L Temperature Source Core Core Pulse Rate 65 80 Respiratory Rate 22 H Respiratory Pattern Blood Pressure 65/46 L 70/43 L 70/43 L Blood Pressure Mean 52 52 52 Blood Pressure Source Monitor Pulse Ox 100 100 Oxygen Delivery Method Nasal Cannula Oxygen Flow Rate (L/min) 2 Fraction of Inspired Oxygen (FIO2) 11/18/24 22:30 11/18/24 22:30 11/18/24 22:35 Temperature 94.3 F L 94.3 F L 94.3 F L Temperature Source Core Core Core Pulse Rate 88 86 Respiratory Rate 22 H 21 H Respiratory Pattern Blood Pressure 79/48 L 68/43 L 73/44 L Blood Pressure Mean 58 51 54 Blood Pressure Source Pulse Ox 100 100 Oxygen Delivery Method Nasal Cannula Oxygen Flow Rate (L/min) 2 Fraction of Inspired Oxygen (FIO2) 11/18/24 22:37 11/18/24 22:40 11/18/24 22:45 Temperature 94.3 F L 94.4 F L Temperature Source Core Core Pulse Rate 95 88 90 Respiratory Rate 22 H 22 H Respiratory Pattern Blood Pressure 73/44 L 79/48 L 82/54 L Blood Pressure Mean 53 58 63 Blood Pressure Source Monitor Pulse Ox 100 100 Oxygen Delivery Method Nasal Cannula Oxygen Flow Rate (L/min) 2 Fraction of Inspired Oxygen (FIO2) 11/18/24 22:45 11/18/24 22:50 11/18/24 23:00 Temperature 94.4 F L 94.4 F L 94.3 F L Temperature Source Core Core Core Pulse Rate 90 95 88 Respiratory Rate 19 H 18 18 Respiratory Pattern Blood Pressure 82/54 L 72/25 L 87/40 L Blood Pressure Mean 64 39 55 Blood Pressure Source Pulse Ox 100 97 Oxygen Delivery Method Nasal Cannula Room Air Oxygen Flow Rate (L/min) 2 Fraction of Inspired Oxygen (FIO2) 11/18/24 23:05 11/18/24 23:06 11/18/24 23:10 Temperature 94.3 F L 94.2 F L Temperature Source Core Core Pulse Rate 89 86 145 H Respiratory Rate 23 H 19 H Respiratory Pattern Blood Pressure 87/40 L 87/40 L 104/47 L Blood Pressure Mean 55 55 62 Blood Pressure Source Pulse Ox 95 97 Oxygen Delivery Method Room Air Room Air Oxygen Flow Rate (L/min) Fraction of Inspired Oxygen (FIO2) 11/18/24 23:15 11/18/24 23:17 11/18/24 23:20 Temperature 94.1 F L 94.2 F L Temperature Source Core Core Pulse Rate 91 91 93 Respiratory Rate 15 18 18 Respiratory Pattern Blood Pressure 106/59 L 106/59 L 116/46 L Blood Pressure Mean 66 74 65 Blood Pressure Source Pulse Ox 98 95 98 Oxygen Delivery Method Room Air Room Air Oxygen Flow Rate (L/min) Fraction of Inspired Oxygen (FIO2) 11/18/24 23:25 11/18/24 23:30 11/18/24 23:30 Temperature 94.2 F L 94.3 F L Temperature Source Core Core Pulse Rate 96 99 95 Respiratory Rate 17 19 H 18 Respiratory Pattern Blood Pressure 118/62 124/72 H 117/64 Blood Pressure Mean 74 89 80 Blood Pressure Source Pulse Ox 98 97 97 Oxygen Delivery Method Room Air Room Air Oxygen Flow Rate (L/min) Fraction of Inspired Oxygen (FIO2) 11/18/24 23:35 11/18/24 23:45 11/18/24 23:55 Temperature 94.4 F L 94.6 F L Temperature Source Core Core Pulse Rate 97 99 100 Respiratory Rate 16 16 Respiratory Pattern Blood Pressure 131/62 H 124/72 H 124/72 H Blood Pressure Mean 79 88 89 Blood Pressure Source Monitor Pulse Ox 97 97 Oxygen Delivery Method Room Air Oxygen Flow Rate (L/min) Fraction of Inspired Oxygen (FIO2) Positive well nourished and well developed Constitutional Narrative: Patient is cyanotic, diaphoretic and respiratory distress and blood pressure is low. Patient had a temperature of 81 degrees. Initial sat was 65%. She was placed on a nonrebreather mask. General Appearance ED: well developed, cyanotic and diaphoretic; Negative for NAD or pallor HEENT Reports dry mucous membranes HEENT Narrative: Patient has poor dentition. She has cyanosis of her ears. Nares patent. Posterior pharynx is normal. Mouth ED: Yes dry mucous membranes Mouth: dry mucous membranes Eyes PERRL and EOMs intact bilaterally General Eye ED: Negative for pale conjunctiva or scleral icterus Neck no lymphadenopathy, supple and no JVD Chest Wall Negative for inspection of chest normal or palpation of chest normal Resp No normal respiratory effort and No clear to auscultation bilaterally Resp Narrative: Patient has used accessory muscles and retractions with diminished breath soundsand high-pitched wheezing. Cardio regular rate, regular rhythm, S1 normal heart sound, S2 normal heart sound and no murmurs GI normal to inspection, nondistended, normoactive bowel sounds, non-tender, non-distended and no masses; Negative for hepatosplenomegaly GI Narrative: There is no palpable pulsatile mass. Back/Spine no CVA tenderness Extremity Extremity Narrative: Patient has acral cyanosis noted upper and lower extremities. She is mottled. Neuro No oriented x3, CN's II-XII intact bilaterally and no sensory deficits noted Sensorium / Orientation: Negative for alert Psych Mood & Affect: depressed Skin Skin Narrative: Mottled and cyanosis General Skin Exam: Negative for pallor MDM MDM MDM Narrative Medical decision making narrative: Differential diagnosis is pneumonia, pulmonary embolus, pneumothorax, congestiveheart failure, COPD exacerbation need to consider cardiac ischemia. Workup included EKG, chest x-ray appropriate blood work, blood culture since she is hypothermic. ABG was obtained. ABG reveals a metabolic acidosis with no significant AA gradient. Lab Data Attestation: I reviewed the patient's lab results. Lab results narrative: White count elevated 318.9 thousand with no shift. Competence metabolic panel shows a high anion gap acidosis. Lactate elevated 3.0. Blood sugar is [id number]. Will add a beta hydroxybutyrate. AST and ALT are slightly elevated. Patient in all likely has polycythemia vera secondary due to her smoking with Padmini&H of 18.9 and 55.1. Urinalysis is unremarkable. Labs: Laboratory Results - last 24 hr 11/18/24 11/18/24 11/18/24 21:00 21:08 21:42 WBC 13.9 H RBC 6.01 H Hgb 18.9 H* Hct 55.1 H MCV 91.7 MCH 31.4 MCHC 34.3 RDW Std Deviation 44.1 H RDW Coeff of Panchito 13.0 Plt Count 390 MPV 10.6 Immature Gran % (Auto) 0.800 Neut % (Auto) 55.3 Lymph % (Auto) 35.6 Sebastian % (Auto) 4.5 Eos % (Auto) 2.9 Baso % (Auto) 0.9 Absolute Neuts (auto) 7.7 Absolute Lymphs (auto) 4.95 H Nucleated RBC % 0 PT 15.7 H INR 1.2 APTT 32.1 Sodium 134 Potassium 4.0 Chloride 98 Carbon Dioxide 17.7 L Anion Gap 18 H BUN 17 Creatinine 1.36 H Estim Creat Clear Calc 39.22 L Est GFR (MDRD) Non-Af 44 L BUN/Creatinine Ratio 12.4 Glucose 316 H Lactic Acid 3.0 H* Calcium 10.0 Total Bilirubin 0.53 AST 64 H ALT 38 H Alkaline Phosphatase 115 H Troponin T High Sens 11 Total Protein 6.8 Albumin 3.9 Globulin 2.9 Albumin/Globulin Ratio 1.3 b-Hydroxybutyric mmol/L 0.2 TSH 16.900 H Urine Color Yellow Urine Clarity Clear Urine pH 6.0 Ur Specific [place] 1.015 Urine Protein 100 H Urine Glucose (UA) Normal Urine Ketones Negative Urine Occult Blood 10 H Urine Nitrite Negative Urine Bilirubin 6 H Urine Urobilinogen Normal Ur Leukocyte Esterase 25 H Urine RBC 0-5 SEEN Urine WBC 0-5 SEEN Ur Squamous Epith Cells 0-5 SEEN Urine Bacteria 0 SEEN Urine Mucus 0 SEEN ABG Data ABG results: ABG 11/18/24 21:07 Specimen Type ART Sample Site L Radial pH 7.30 L Bicarbonate Actual 13.1 L Total CO2 14 Base Excess -13 L O2 Saturation 100 H O2 % 6.0 ABG pCO2 26.6 L ABG pO2 504 H* Nayana Test N/A O2 Delivery Device Cannula Vent Mode Not entered Crit Call To/Read Back Yes Blood Gas Notified Whom Dr Marques Blood Gas Notified Time 21:09:37 Radiography Chest X-Ray - ED: 1 View (Chest x-ray status post left subclavian line reveals no pneumothorax. It is unchanged from prior. Subclavian line is at above the right atrium.), Read by ED Physician, Normal, Heart, Mediastinum, No Acute Disease and Chronic Changes (There is no infiltrate, effusion or pneumothorax. Osseous structures are unremarkable.) Diagnostic Testing: Clinical Impression(s) from Imaging Studies Chest X-Ray 11/18/24 20:50 IMPRESSION: No acute cardiopulmonary disease. Reading Location: [facility] Chest X-Ray 11/18/24 22:34 IMPRESSION: Left subclavian central venous catheter with tip at the lower SVC. Unchanged lung aeration. No pneumothorax or sizable pleural effusion. Reading Location: [facility] EKG Initial EKG: Attestation: I personally reviewed and interpreted this EKG as follows: Interpretation: Sinus Rhythm (Rate is 94. There are premature atrial beats noted. [place] to the left. Patient has an RR prime in V1. NE interval is 160 ms. QS duration 96 ms. QT duration is 98 ms. There is motion artifact noted.) Management Discussion w/another healthcare provider: Hospitalist (Spoke with Dr. Romeo Vizcaino. He requested a CT of the abdomen since the cause of her shock is unknown. Will add on a cortisol level prior to administration of Solu-Medrol. Plan is admit to ICU) Treatment and Re-Evaluation :: I was informed by nursing staff patient remains hypotensive after 3 L of normal saline. Peripheral Levophed was started and will change to central line once established. Patient is in critical condition verbal consent was obtained. Uncertain whether she truly comprehends and this was an implied consent. Patient was prepped draped sterile manner for right IJ right subclavian. The right IJ was not attempted because the vein was over the carotid artery and she had carotid endarterectomy performed on that side. 3 attempts were made at cannulating the right subclavian vein. There was no flash of blood or air. Patient was prepped for a left subclavian and left internal jugular. The left internal jugular was small. Did not attempt. The left subclavian vein was successfully cannulated on first attempt weigh-in. Using Seldinger technique 7.5 [place] triple-lumen was placed. Blood was aspirated from all 3 ports. Willconvert Levophed to the central line. Will obtain chest x-ray to rule out pneumothorax and determine position of subclavian. Comments:: I was made aware that nurse indicated sepsis indicators were noted. At this time I do not know if patient has sepsis or not. Will obtain CTA to evaluate for pulmonary embolus at this time. Time of this addendum was 2252 Critical Care Time Critical Care Time: Yes Critical care time (excluding procedures): 30-74 minutes (38), Including time spent: (History, physical, documentation, independent or potation laboratory results and imaging), Discussing w/Patient &/or Family/Rags Laborer, Discussing w/Consultants (Hospitalist), Arranging Admission or Transfer (Admit to ICU) and Performing Direct Patient Care at Bedside (Management of hypotension with peripheral Levophed. Subclavian was placed because patient has undifferentiatedshock. She is presently on Levophed. She is also hypothermic.) Discharge Plan Dx/Rx/DC Orders Clinical Impression: Shock circulatory, COPD with acute exacerbation, Acute bronchospasm, Acidosis, lactic, Type 2 diabetes mellitus with hyperglycemia, Leukocytosis, Acquired polycythemia vera, Peripheral arterial disease, Fatty liver disease, nonalcoholic, Hypothermia, Hypothyroidism Disposition Disposition: [facility] What to do if you have Problems For any increased pain, shortness of breath, bleeding, nausea or vomiting, chestpain, or any unexpected problems, contact your Primary Care Provider. Call [facility] ([phone]) or report to the closest Emergency Room. Call 911 if necessary. 11/19/24 0008 <Electronically signed by Ru Marques MD> Cosigner Signature (if applicable): CC: CB Swanson ~ Signed [facility] Work Phone: 1(752) 837-419009-16-2025 Telephone encounter Note* Telephone Encounter - Paulina Marino - 10/26/2024 2:44 PM EDT Prescription Refill Information The patient has been identified by name and date of : Yes Caregiver verified no other encounters exist for this prescription request: Yes Caregiver confirmed with patient/requestor that no other refills are due, in the near future, with this provider at this time: Yes The last office visit in the department: 10-01-24 Does the patient have a future office visit with this provider/department: Yes Requested Prescriptions Pending Prescriptions Disp Refills cyclobenzaprine (FLEXERIL) 5 mg tablet 90 tablet 1 Sig: Take 1 tablet by mouth three times a day as needed. Paulina Mitchell October 26, 2024 2:45 PM [facility]09-16-2025 Miscellaneous Notes* Telephone Encounter - Paulina Marino - 10/26/2024 2:44 PM EDT Prescription Refill Information The patient has been identified by name and date of : Yes Caregiver verified no other encounters exist for this prescription request: Yes Caregiver confirmed with patient/requestor that no other refills are due, in the near future, with this provider at this time: Yes The last office visit in the department: 10-01-24 Does the patient have a future office visit with this provider/department: Yes Requested Prescriptions Pending Prescriptions Disp Refills cyclobenzaprine (FLEXERIL) 5 mg tablet 90 tablet 1 Sig: Take 1 tablet by mouth three times a day as needed. Paulina Mitchell October 26, 2024 2:45 PM documented in [facility] encounterAk[facility] Telephone encounter Note * Telephone Encounter - Opal Donnelly MSW - 10/19/2024 3:21 PM EDT Kisha spoke with patient regarding [employer] patient assistance guidelines. Patient reports that she is under the income guideline for [employer]. Patient confirmed that [address] listed in chart is correct address to mail forms. Sw will mail [employer] and consent form to sign and bring back to Kin in Pul office. Prescription will then need to be printed and attached to [employer] form when received. [employer] fax#[phone]. [facility]09-09-2025 Miscellaneous Notes* Telephone Encounter - Opal Donnelly MSW - 10/19/2024 3:21 PM EDT Kisha spoke with patient regarding [employer] patient assistance guidelines. Patient reports that she is under the income guideline for [employer]. Patient confirmed that [address] listed in chart is correct address to mail forms. Kisha will mail [employer] and consent form to sign and bring back to Kin in Pulm office. Prescription will then need to be printed and attached to [facility] form when received. [facility] fax#[phone]. documented in this encounterAkron [facility]09-[facility]-2025 Telephone encounter Note * Telephone Encounter - Dani Pearce APRN.CNP - 10/19/2024 2:51 PM EDT I agree with Eddie as an alternative. [facility]09-09-2025 Miscellaneous Notes* Telephone Encounter - Dani Pearce APRN.CNP - 10/19/2024 2:51 PM EDT I agree with Eddie as an alternative. * Telephone Encounter - Clementina Bustamante LPN - 10/19/2024 2:27 PM EDT Called patient re: Carter and Ronak. Advised I would reach out to provider to see if her maintenance therapy can be changed to Trelegy. She would like to apply for [facility] PAP program with if possible. Patient agreeable to have chart forwarded to to be contacted for assistance in enrollment. Clementina Bustamante LPN * Telephone Encounter - Donna Shaffer - 10/19/2024 2:09 PM EDT Patient calling in wanting to let the pulmonology office know she has not been able to take her inhalers due to losing her insurance. She states they are too expensive for her to get without her insurance. Please review and advise. Donna Shaffer October 19, 2024 2:10 PM documented in this encounterAkron [facility] Telephone encounter Note * Telephone Encounter - Clementina Bustamante LPN - 10/19/2024 2:27 PM EDT Called patient re: Advair and Spiriva. Advised I would reach out to provider to see if her maintenance therapy can be changed to Trelegy. She would like to apply for [facility] PAP program with if possible. Patient agreeable to have chart forwarded to to be contacted for assistance in enrollment. Clementina Bustamante LPN [facility]09-09-2025 Telephone encounter Note* Telephone Encounter - Donna Shaffer - 10/19/2024 2:09 PM EDT Patient calling in wanting to let the pulmonology office know she has not been able to take her inhalers due to losing her insurance. She states they are too expensive for her to get without her insurance. Please review and advise. Donna Shaffer October 19, 2024 2:10 PM [facility]09-09-2025 Telephone encounter Note* Telephone Encounter - Aarti Reyes - 10/19/2024 12:33 PM EDT Prescription Refill Information The patient has been identified by name and date of : Yes Caregiver verified no other encounters exist for this prescription request: Yes Caregiver confirmed with patient/requestor that no other refills are due, in the near future, with this provider at this time: Yes The last office visit in the department: 10-01-24 Does the patient have a future office visit with this provider/department: Yes Requested Prescriptions Pending Prescriptions Disp Refills zolpidem (AMBIEN) 10 mg 30 tablet 0 Sig: Take 1 tablet by mouth daily at bedtime for 30 days. Aarti Reyes October 19, 2024 12:34 PM [facility]09-09-2025 Miscellaneous Notes* Telephone Encounter - Aarti Reyes - 10/19/2024 12:33 PM EDT Prescription Refill Information The patient has been identified by name and date of : Yes Caregiver verified no other encounters exist for this prescription request: Yes Caregiver confirmed with patient/requestor that no other refills are due, in the near future, with this provider at this time: Yes The last office visit in the department: 10-01-24 Does the patient have a future office visit with this provider/department: Yes Requested Prescriptions Pending Prescriptions Disp Refills zolpidem (AMBIEN) 10 mg 30 tablet 0 Sig: Take 1 tablet by mouth daily at bedtime for 30 days. Aarti Reyes October 19, 2024 12:34 PM documented in this encounterAkron [facility]08-30-2025 NoteHNO ID: [id number] Author: MARK AMADOR APRN.[facility] Service: ? Author Type: Nurse Practitioner Type: Progress Notes Filed: 10/09/2024 14:18 Note Text: [facility] Subjective David Aldrich is a 63 year old female. Patient presents with: Pain (Shoulder Pain) Neck Pain: All right side HPI The patient is a 63-year-old female with a history of diabetes, presenting for right shoulder pain. Right Shoulder Pain: - Onset unknown; denies known trauma or injury. - Pain exacerbated by movement; no relief from Advil. - Describes a palpable "lump" in the shoulder area. - Pain radiates up the back of the neck; denies pain in the spine or anterior shoulder. - Experiences muscle spasms. - Able to raise the shoulder without pain. - Prescription for Etodolac called in by Dr. Hall, but not yet picked up. - No spinal tenderness in the spine. Diabetes: - Monitors blood glucose levels regularly. - Recent follow-up with Dr. Dani Bone; reports satisfactory management. Review of Systems Musculoskeletal: (+) shoulder pain, (+) neck pain, (+) muscle spasm, (+) shoulder mass sensation, (-) spinal pain, (-) anterior shoulder pain PAST MEDICAL HISTORY Diagnosis Date Arrhythmia Bradycardia COPD, mild (HCC) Diabetes mellitus with peripheral artery disease (HCC) 03/06/2015 H/O percutaneous left heart catheterization 05/2012 negative--[facility] History of rectal polypectomy 09/23/201712/2014: hyperplastic polyp Hyperlipidemia LDL goal < 100 01/25/2013 Hypertension Left sided sciatica Major depressive disorder, recurrent episode, unspecified Non-alcoholic fatty liver disease 10/13/2014 Other and unspecified hyperlipidemia Other secondary osteoarthritis of right knee Peripheral arterial disease 03/06/2015 Pulmonary emphysema, unspecified emphysema type (HCC) Recurrent major depressive disorder, in full remission 03/10/2017 Snoring Tobacco use current Trigger point of left shoulder region Type 2 diabetes mellitus with stage 3 chronic kidney disease, without long-term current use of insulin (HCC) 05/11/2016 PAST SURGICAL HISTORY Procedure Laterality Date APPENDECTOMY 02/10/1970 ARTHROSCOPY KNEE DIAGNOSTIC W/WO SYNOVIAL BX SPX 10/19/2022 rt knee artroscopic I AND D, synovectomy CAROTID ENDARTERECTOMY 06/16/2012 Right carotid COLONOSCOPY 12/12/2014 Repeat 2018 ALLERGIES Zocor [Simvastatin] MEDICATIONS atorvastatin (LIPITOR) 20 mg tablet Take 1 tablet by mouth once daily. etodolac (LODINE) 400 mg tablet Take 1 tablet by mouth two times a day. zolpidem (AMBIEN) 10 mg Take 1 tablet by mouth daily at bedtime for 30 days. cyclobenzaprine (FLEXERIL) 5 mg tablet Take 1 tablet by mouth three times a day as needed. imipramine HCl (TOFRANIL) 50 mg tablet Take 3 tablets by mouth daily at bedtime. pantoprazole DR (PROTONIX) 40 mg tablet Take 1 tablet by mouth once daily. nicotine (NICODERM CQ) 21 mg/24 hr Apply 1 patch as directed every 24 hours. APPLY ONE(1) PATCH DAILY. nicotine (NICODERM) 14 mg/24 hr Apply 1 patch as directed every 24 hours. nicotine (NICODERM) 7 mg/24 hr Apply 1 patch as directed every 24 hours. buPROPion SR (WELLBUTRIN SR) 150 mg 12 hr tablet Take 1 tablet by mouth two times a day. Take 1 tablet a day for 3 days before increasing to 1 tablet twice a day. thiothixene (NAVANE) 1 mg capsule Take 2 capsules by mouth two times a day. tiotropium bromide (SPIRIVA RESPIMAT) 2.5 mcg/actuation inhaler Inhale 2 Puffs as instructed once daily. fluticasone-salmeterol (ADVAIR DISKUS) 250-50 mcg/dose inhaler Inhale 1 Puff as instructed two times a day. RINSE AND GARGLE MOUTH WITH WATER AFTER EACH USE. albuterol HFA (VENTOLIN HFA) 90 mcg/actuation inhaler Inhale 2 Puffs as instructed every 4 hours as needed for wheezing/shortness of breath. lisinopril (ZESTRIL) 5 mg tablet Take 1 tablet by mouth once daily. metFORMIN (GLUCOPHAGE) 500 mg tablet Take 1 tablet by mouth daily with dinner. blood sugar diagnostic (BLOOD GLUCOSE TEST) test strip Test blood sugar(s) 1 times daily. Dx: Type 2 DM - Controlled E11.9 Insulin: No ondansetron orally disintegrating (ZOFRAN ODT) 4 mg disintegrating tablet Take 1 tablet by mouth every 8 hours as needed for nausea/vomiting. Lancets lancets Test blood sugar(s) 1 times daily. Dx: Type 2 DM - Controlled E11.9 Insulin: No Melatonin 5 mg cap Take 1 capsule by mouth once daily. Aspirin 81 mg tab Take 1 tablet by mouth once daily. Take with food. FAMILY HISTORY Problem Relation Age of Onset Heart Mother Diabetes Father other (Parkinson's disease [Other]) Brother SOCIAL HISTORY[1] Objective BP 124/70 Pulse 68 Temp 36.6 ?C (97.8 ?F) (Tympanic) Resp 16 Wt 71.5 kg (157 lb 10.1 oz) LMP 11/13/2009 SpO2 99% BMI 28.37 kg/m? Physical Exam Constitutional: General: She is not in acute distress. Appearance: Normal appearance. She is normal weight. She is not ill-appearing or toxic-appear (more content not included)...[facility] 10-09-2024 History of Present illness Narrative* Mark Amador APRN.[employer] - 10/09/2024 1:59 PM EDT Images from the original note were not included. [facility] Mary Kay Aldrich is a 63 year old female. Patient presents with: Pain (Shoulder Pain) Neck Pain: All right side HPI The patient is a 63-year-old female with a history of diabetes, presenting for right shoulder pain. Right Shoulder Pain: - Onset unknown; denies known trauma or injury. - Pain exacerbated by movement; no relief from Advil. - Describes a palpable "lump" in the shoulder area. - Pain radiates up the back of the neck; denies pain in the spine or anterior shoulder. - Experiences muscle spasms. - Able to raise the shoulder without pain. - Prescription for Etodolac called in by Dr. Hall, but not yet picked up. - No spinal tenderness in the spine. Diabetes: - Monitors blood glucose levels regularly. - Recent follow-up with Dr. Dani Bone; reports satisfactory management. Review of Systems Musculoskeletal: (+) shoulder pain, (+) neck pain, (+) muscle spasm, (+) shoulder mass sensation, (-) spinal pain, (-) anterior shoulder pain PAST MEDICAL HISTORY Diagnosis Date Arrhythmia Bradycardia COPD, mild (HCC) Diabetes mellitus with peripheral artery disease (HCC) 03/06/2015 H/O percutaneous left heart catheterization 05/2012 negative--[facility] History of rectal polypectomy 09/23/201712/2014: hyperplastic polyp Hyperlipidemia LDL goal < 100 01/25/2013 Hypertension Left sided sciatica Major depressive disorder, recurrent episode, unspecified Non-alcoholic fatty liver disease 10/13/2014 Other and unspecified hyperlipidemia Other secondary osteoarthritis of right knee Peripheral arterial disease 03/06/2015 Pulmonary emphysema, unspecified emphysema type (HCC) Recurrent major depressive disorder, in full remission 03/10/2017 Snoring Tobacco use current Trigger point of left shoulder region Type 2 diabetes mellitus with stage 3 chronic kidney disease, without long-term current use of insulin (HCC) 05/11/2016 PAST SURGICAL HISTORY Procedure Laterality Date APPENDECTOMY 02/10/1970 ARTHROSCOPY KNEE DIAGNOSTIC W/WO SYNOVIAL BX SPX 10/19/2022 rt knee artroscopic I & D, synovectomy CAROTID ENDARTERECTOMY 06/16/2012 Right carotid COLONOSCOPY 12/12/2014 Repeat 2018 ALLERGIES Zocor [Simvastatin] MEDICATIONS atorvastatin (LIPITOR) 20 mg tablet Take 1 tablet by mouth once daily. etodolac (LODINE) 400 mg tablet Take 1 tablet by mouth two times a day. zolpidem (AMBIEN) 10 mg Take 1 tablet by mouth daily at bedtime for 30 days. cyclobenzaprine (FLEXERIL) 5 mg tablet Take 1 tablet by mouth three times a day as needed. imipramine HCl (TOFRANIL) 50 mg tablet Take 3 tablets by mouth daily at bedtime. pantoprazole DR (PROTONIX) 40 mg tablet Take 1 tablet by mouth once daily. nicotine (NICODERM CQ) 21 mg/24 hr Apply 1 patch as directed every 24 hours. APPLY ONE(1) PATCH DAILY. nicotine (NICODERM) 14 mg/24 hr Apply 1 patch as directed every 24 hours. nicotine (NICODERM) 7 mg/24 hr Apply 1 patch as directed every 24 hours. buPROPion SR (WELLBUTRIN SR) 150 mg 12 hr tablet Take 1 tablet by mouth two times a day. Take 1 tablet a day for 3 days before increasing to 1 tablet twice a day. thiothixene (NAVANE) 1 mg capsule Take 2 capsules by mouth two times a day. tiotropium bromide (SPIRIVA RESPIMAT) 2.5 mcg/actuation inhaler Inhale 2 Puffs as instructed once daily. fluticasone-salmeterol (ADVAIR DISKUS) 250-50 mcg/dose inhaler Inhale 1 Puff as instructed two times a day. RINSE AND GARGLE MOUTH WITH WATER AFTER EACH USE. albuterol HFA (VENTOLIN HFA) 90 mcg/actuation inhaler Inhale 2 Puffs as instructed every 4 hours asneeded for wheezing/shortness of breath. lisinopril (ZESTRIL) 5 mg tablet Take 1 tablet by mouth once daily. metFORMIN (GLUCOPHAGE) 500 mg tablet Take 1 tablet by mouth daily with dinner. blood sugar diagnostic (BLOOD GLUCOSE TEST) test strip Test blood sugar(s) 1 times daily. Dx: Type 2 DM - Controlled E11.9 Insulin: No ondansetron orally disintegrating (ZOFRAN ODT) 4 mg disintegrating tablet Take 1 tablet by mouth every 8 hours as needed for nausea/vomiting. Lancets lancets Test blood sugar(s) 1 times daily. Dx: Type 2 DM - Controlled E11.9 Insulin: No Melatonin 5 mg cap Take 1 capsule by mouth once daily. Aspirin 81 mg tab Take 1 tablet by mouth once daily. Take with food. FAMILY HISTORY Problem Relation Age of Onset Heart Mother Diabetes Father other (Parkinson's disease [Other]) Brother SOCIAL HISTORY[1] Objective BP 124/70 Pulse 68 Temp 36.6 C (97.8 F) (Tympanic) Resp 16 Wt 71.5 kg (157 lb 10.1 oz) LMP 11/13/2009 SpO2 99% BMI 28.37 kg/m Physical Exam Constitutional: General: She is not in acute distress. Appearance: Normal appearance. She is normal weight. She is not ill-appearing or toxic-appearing. Cardiovascular: Rate and Rhythm: Normal rate and regular rhythm. Pulses: Normal pulses. Heart sounds: Normal heart sounds. Pulmonary: Effort: Pulmonary effort is normal. Breath sounds: Normal breath sounds. Musculoskeletal: Right upper arm: Tenderness present. No swelling, edema, deformity, lacerations or bony tenderness. Right elbow: Normal. Right forearm: Normal. Arms: Cervical back: Spasms present. No swelling, deformity, signs of trauma, tenderness or crepitus. Normal range of motion. Thoracic back: Normal. Comments: Right shoulder with palpable muscle tightness above scapula no pain with shoulder elevation, no anterior shoulder pain, No cervical tenderness Neurological: Mental Status: She is alert. { 1. Muscle strain of right shoulder region, initial encounter (S45.113R) - No known injury; pain worsened by movement, radiates to neck; no pain with shoulder elevation or anteriorly; no spinal pain. - Palpable muscle tightness and spasms noted on exam. - Discussed that X-ray, patient declined okay to defer based on presentation, no injury muscleskeltal on presentation. - Educated that muscle strains can last a couple of weeks. 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 Hall; explained that it cee non-steroidal anti-inflammatory and does not raise blood sugar. - Advised to continue Aleve until Etodolac is obtained. - Advised use of muscle relaxers as needed for spasms. Patient has flexril at home. - No radiculopathy, neurvascular deficits or rash. No concern for nerve inpingement. - Follow up with Dr. Hall if symptoms persist. and Recording using [employer] software for draft documentation of the visit was discussed with the patient/authorized personal service representative; all questions welcomed and answered. Patient/authorized personal service representative agreed to proceed History and Record Review External record(s) reviewed: prior outpatient record. Findings from review of outpatient records: Dr. Hall orthopedics notes Differential Diagnoses - Muscle strain of shoulder is more likely for the following reason(s): suggested by H&P - Nerve impingement/neruovascular deficits is less likely for the following reason(s): H&P not suggestive Disposition The patient was discharged. 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( do not take aleve with Etodolac) [1] Social History Tobacco Use Smoking status: Every Day Current packs/day: 1.00 Average packs/day: 1 pack/day for 49.7 years (49.7 ttl pk-yrs) Types: Cigarettes Start date: 02/10/1975 Smokeless tobacco: Never Vaping Use Vaping status: Never Used Substance Use Topics Alcohol use: Not Currently Comment: quit 04/18 Drug use: [facility] * Telephone Encounter - Vy Aguirre - 10/08/2024 1:43 PM EDT Prescription Refill Information The patient has been identified by name and date of : Yes Caregiver verified no other encounters exist for this prescription request: Yes Caregiver confirmed with patient/requestor that no other refills are due, in the near future, with this provider at this time: Yes The last office visit in the department: 10-01-24 Does the patient have a future office visit with this provider/department: Yes Requested Prescriptions Pending Prescriptions Disp Refills atorvastatin (LIPITOR) 20 mg tablet 90 tablet 3 Sig: Take 1 tablet by mouth once daily. Vy Mitchell October 08, 2024 1:43 PM [facility]08-[facility] Miscellaneous Notes* Telephone Encounter - Vy Aguirre - 10/08/2024 1:43 PM EDT Prescription Refill Information The patient has been identified by name and date of : Yes Caregiver verified no other encounters exist for this prescription request: Yes Caregiver confirmed with patient/requestor that no other refills are due, in the near future, with this provider at this time: Yes The last office visit in the department: 10-01-24 Does the patient have a future office visit with this provider/department: Yes Requested Prescriptions Pending Prescriptions Disp Refills atorvastatin (LIPITOR) 20 mg tablet 90 tablet 3 Sig: Take 1 tablet by mouth once daily. Vy Mitchell October 08, 2024 1:43 PM [facility] Telephone encounter Note * Telephone Encounter - Kell Suarez - 10/05/2024 9:18 AM EDT PATIENT IS REQUESTING REFILL DUE TO REOCCURRING SHOULDER PAIN Prescription Refill Information The patient has been identified by name and date of : Yes Caregiver verified no other encounters exist for this prescription request: Yes Caregiver confirmed with patient/requestor that no other refills are due, in the near future, with this provider at this time: Yes The last office visit in the department: 08/24/24 Does the patient have a future office visit with this provider/department: No Requested Prescriptions Pending Prescriptions Disp Refills etodolac (LODINE) 400 mg tablet 60 tablet 0 Sig: Take 1 tablet by mouth two times a day. Kell Suarez October 05, 2024 9:19 AM [facility]08-[facility] Miscellaneous Notes* Telephone Encounter - Kell Suarez - 10/05/2024 9:18 AM EDT PATIENT IS REQUESTING REFILL DUE TO REOCCURRING SHOULDER PAIN Prescription Refill Information The patient has been identified by name and date of : Yes Caregiver verified no other encounters exist for this prescription request: Yes Caregiver confirmed with patient/requestor that no other refills are due, in the near future, with this provider at this time: Yes The last office visit in the department: 08/24/24 Does the patient have a future office visit with this provider/department: No Requested Prescriptions Pending Prescriptions Disp Refills etodolac (LODINE) 400 mg tablet 60 tablet 0 Sig: Take 1 tablet by mouth two times a day. Kell Suarez October 05, 2024 9:19 AM documented in this encounter[facility] NoteHNO ID: [id number] Author: LULU SWANSON APRN.[employer] Service: ? Author Type: Nurse Practitioner Type: Progress Notes Filed: 10/01/2024 15:48 Note Text: This is a 63 year old female who presents today with: David Aldrich is a 63-year-old female with a history of COPD, DM, and HTN, presenting for a follow-up visit. HISTORY OF PRESENT ILLNESS: COPD: - Using Advair and Spiriva inhalers; reports they are effective. - Uses albuterol inhaler frequently at work due to increased activity; minimal use at home. DM: - Taking metformin. - Has not been checking blood glucose levels at home. - Denies polyuria, polydipsia, paresthesia, or hypoglycemic symptoms. Due for labs. HTN: - Taking lisinopril. No chest pain/sob. Dental Issues: - Reports two broken teeth causing intermittent pain. - Requests penicillin or amoxicillin for relief. 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 Insomnia: - Ambien effective for sleep; reports insomnia if not taken. - no side effects to medication. Up-to-date w/ med agreement and tox screen. Carotid stenosis Recent ultrasound -- no change from previous. PAST MEDICAL HISTORY: PAST MEDICAL HISTORY Diagnosis Date Arrhythmia Bradycardia COPD, mild (HCC) Diabetes mellitus with peripheral artery disease (HCC) 03/06/2015 H/O percutaneous left heart catheterization 05/2012 negative--[facility] History of rectal polypectomy 09/23/201712/2014: hyperplastic polyp Hyperlipidemia LDL goal < 100 01/25/2013 Hypertension Left sided sciatica Major depressive disorder, recurrent episode, unspecified Non-alcoholic fatty liver disease 10/13/2014 Other and unspecified hyperlipidemia Other secondary osteoarthritis of right knee Peripheral arterial disease 03/06/2015 Pulmonary emphysema, unspecified emphysema type (HCC) Recurrent major depressive disorder, in full remission 03/10/2017 Snoring Tobacco use current Trigger point of left shoulder region Type 2 diabetes mellitus with stage 3 chronic kidney disease, without long-term current use of insulin (HCC) 05/11/2016 PAST SURGICAL HISTORY Procedure Laterality Date APPENDECTOMY 02/10/1970 ARTHROSCOPY KNEE DIAGNOSTIC W/WO SYNOVIAL BX SPX 10/19/2022 rt knee artroscopic I AND D, synovectomy CAROTID ENDARTERECTOMY 06/16/2012 Right carotid COLONOSCOPY 12/12/2014 Repeat 2018 ALLERGIES Zocor [Simvastatin] MEDICATIONS Current Outpatient Medications Medication Sig penicillin V potassium 500 mg tablet Take 1 tablet by mouth four times daily for 7 days. zolpidem (AMBIEN) 10 mg Take 1 tablet by mouth daily at bedtime for 30 days. cyclobenzaprine (FLEXERIL) 5 mg tablet Take 1 tablet by mouth three times a day as needed. imipramine HCl (TOFRANIL) 50 mg tablet Take 3 tablets by mouth daily at bedtime. etodolac (LODINE) 400 mg tablet Take 1 tablet by mouth two times a day. pantoprazole DR (PROTONIX) 40 mg tablet Take 1 tablet by mouth once daily. nicotine (NICODERM CQ) 21 mg/24 hr Apply 1 patch as directed every 24 hours. APPLY ONE(1) PATCH DAILY. nicotine (NICODERM) 14 mg/24 hr Apply 1 patch as directed every 24 hours. nicotine (NICODERM) 7 mg/24 hr Apply 1 patch as directed every 24 hours. buPROPion SR (WELLBUTRIN SR) 150 mg 12 hr tablet Take 1 tablet by mouth two times a day. Take 1 tablet a day for 3 days before increasing to 1 tablet twice a day. thiothixene (NAVANE) 1 mg capsule Take 2 capsules by mouth two times a day. tiotropium bromide (SPIRIVA RESPIMAT) 2.5 mcg/actuation inhaler Inhale 2 Puffs as instructed once daily. fluticasone-salmeterol (ADVAIR DISKUS) 250-50 mcg/dose inhaler Inhale 1 Puff as instructed two times a day. RINSE AND GARGLE MOUTH WITH WATER AFTER EACH USE. albuterol HFA (VENTOLIN HFA) 90 mcg/actuation inhaler Inhale 2 Puffs as instructed every 4 hours as needed for wheezing/shortness of breath. lisinopril (ZESTRIL) 5 mg tablet Take 1 tablet by mouth once daily. metFORMIN (GLUCOPHAGE) 500 mg tablet Take 1 tablet by mouth daily with dinner. atorvastatin (LIPITOR) 20 mg tablet Take 1 tablet by mouth once daily. blood sugar diagnostic (BLOOD GLUCOSE TEST) test strip Test blood sugar(s) 1 times daily. Dx: Type 2 DM - Controlled E11.9 Insulin: No ibuprofen (MOTRIN) 800 mg tablet Take 1 tablet by mouth every 8 hours as needed for pain. Take with food. ondansetron orally disintegrating (ZOFRAN ODT) 4 mg disintegrating tablet Take 1 tablet by mouth every 8 hours as needed for nausea/vomiting. Lancets lancets Test blood sugar(s) 1 times daily. Dx: Type 2 DM - Controlled E11.9 Insulin: No Melatonin 5 mg cap Take 1 capsule by mouth once daily. Aspirin 81 mg tab Take 1 tablet by mouth once daily. Take with food. No current facility-administered medications for this visit. FAMILY HISTORY Problem Relation Age of Onset Heart Mother Diabetes Father other (Parkinson's disease [Other]) Brother SOCIAL HISTORY[1] REVIEW OF SYSTEMS Ears/Nose/M (more content not included)...[facility]08-[facility] History of Present illness Narrative* Lulu Swanson APRN.[facility] - 10/01/2024 3:24 PM EDT This is a 63 year old female who presents today with: David Aldrich is a 63-year-old female with a history of COPD, DM, and HTN, presenting for a follow-up visit. HISTORY OF PRESENT ILLNESS: COPD: - Using Advair and Spiriva inhalers; reports they are effective. - Uses albuterol inhaler frequently at work due to increased activity; minimal use at home. DM: - Taking metformin. - Has not been checking blood glucose levels at home. - Denies polyuria, polydipsia, paresthesia, or hypoglycemic symptoms. Due for labs. HTN: - Taking lisinopril. No chest pain/sob. Dental Issues: - Reports two broken teeth causing intermittent pain. - Requests penicillin or amoxicillin for relief. 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 Insomnia: - Ambien effective for sleep; reports insomnia if not taken. - no side effects to medication. Up-to-date w/ med agreement and tox screen. Carotid stenosis Recent ultrasound -- no change from previous. PAST MEDICAL HISTORY: PAST MEDICAL HISTORY Diagnosis Date Arrhythmia Bradycardia COPD, mild (HCC) Diabetes mellitus with peripheral artery disease (HCC) 03/06/2015 [facility] of [facility]pectomy 09/23/201712/2014: hyperplastic polyp Hyperlipidemia LDL goal < 100 01/25/2013 Hypertension Left sided sciatica Major depressive disorder, recurrent episode, unspecified Non-alcoholic fatty liver disease 10/13/2014 Other and unspecified hyperlipidemia Other secondary osteoarthritis of right knee Peripheral arterial disease 03/06/2015 Pulmonary emphysema, unspecified emphysema type (HCC) Recurrent major depressive disorder, in full remission 03/10/2017 Snoring Tobacco use current Trigger point of left shoulder region Type 2 diabetes mellitus with stage 3 chronic kidney disease, without long-term current use of insulin (HCC) 05/11/2016 PAST SURGICAL HISTORY Procedure Laterality Date APPENDECTOMY 02/10/1970 ARTHROSCOPY KNEE DIAGNOSTIC W/WO SYNOVIAL BX SPX 10/19/2022 rt knee artroscopic I & D, synovectomy CAROTID ENDARTERECTOMY 06/16/2012 Right carotid COLONOSCOPY 12/12/2014 Repeat 2018 ALLERGIES Zocor [Simvastatin] MEDICATIONS Current Outpatient Medications Medication Sig penicillin V potassium 500 mg tablet Take 1 tablet by mouth four times daily for 7 days. zolpidem (AMBIEN) 10 mg Take 1 tablet by mouth daily at bedtime for 30 days. cyclobenzaprine (FLEXERIL) 5 mg tablet Take 1 tablet by mouth three times a day as needed. imipramine HCl (TOFRANIL) 50 mg tablet Take 3 tablets by mouth daily at bedtime. etodolac (LODINE) 400 mg tablet Take 1 tablet by mouth two times a day. pantoprazole DR (PROTONIX) 40 mg tablet Take 1 tablet by mouth once daily. nicotine (NICODERM CQ) 21 mg/24 hr Apply 1 patch as directed every 24 hours. APPLY ONE(1) PATCH DAILY. nicotine (NICODERM) 14 mg/24 hr Apply 1 patch as directed every 24 hours. nicotine (NICODERM) 7 mg/24 hr Apply 1 patch as directed every 24 hours. buPROPion SR (WELLBUTRIN SR) 150 mg 12 hr tablet Take 1 tablet by mouth two times a day. Take 1 tablet a day for 3 days before increasing to 1 tablet twice a day. thiothixene (NAVANE) 1 mg capsule Take 2 capsules by mouth two times a day. tiotropium bromide (SPIRIVA RESPIMAT) 2.5 mcg/actuation inhaler Inhale 2 Puffs as instructed once daily. fluticasone-salmeterol (ADVAIR DISKUS) 250-50 mcg/dose inhaler Inhale 1 Puff as instructed two times a day. RINSE AND GARGLE MOUTH WITH WATER AFTER EACH USE. albuterol HFA (VENTOLIN HFA) 90 mcg/actuation inhaler Inhale 2 Puffs as instructed every 4 hours asneeded for wheezing/shortness of breath. lisinopril (ZESTRIL) 5 mg tablet Take 1 tablet by mouth once daily. metFORMIN (GLUCOPHAGE) 500 mg tablet Take 1 tablet by mouth daily with dinner. atorvastatin (LIPITOR) 20 mg tablet Take 1 tablet by mouth once daily. blood sugar diagnostic (BLOOD GLUCOSE TEST) test strip Test blood sugar(s) 1 times daily. Dx: Type 2 DM - Controlled E11.9 Insulin: No ibuprofen (MOTRIN) 800 mg tablet Take 1 tablet by mouth every 8 hours as needed for pain. Take withfood. ondansetron orally disintegrating (ZOFRAN ODT) 4 mg disintegrating tablet Take 1 tablet by mouth every 8 hours as needed for nausea/vomiting. Lancets lancets Test blood sugar(s) 1 times daily. Dx: Type 2 DM - Controlled E11.9 Insulin: No Melatonin 5 mg cap Take 1 capsule by mouth once daily. Aspirin 81 mg tab Take 1 tablet by mouth once daily. Take with food. No current facility-administered medications for this visit. FAMILY HISTORY Problem Relation Age of Onset Heart Mother Diabetes Father other (Parkinson's disease [Other]) Brother SOCIAL HISTORY[1] REVIEW OF SYSTEMS Ears/Nose/Mouth/Throat: (+) dental pain Cardiovascular: (-) peripheral edema Genitourinary: (-) polyuria Neurological: (-) numbness, (-) paresthesia Endocrine: (-) polydipsia EXAM: BP 117/72 Pulse 73 Resp 16 Wt 70.7 kg (155 lb 12.8 oz) LMP 11/13/2009 SpO2 98% BMI 28.04 kg/m PHYSICAL EXAM: General Appearance: Well appearing, alert, in no acute distress, well-hydrated, well nourished.. Skin: Skin color, texture, turgor normal, no suspicious rashes or lesions. Head: Normocephalic, no masses, lesions, tenderness or abnormalities. Eyes: Anicteric sclera. Extraocular movements are intact. . Oropharynx: Lips, mucosa, fractured teeth right lower mouth. Lungs: Lungs clear to auscultation. Heart: RRR without murmur, gallop, or rubs. No ectopy. Extremities: No deformities, edema, skin discoloration, clubbing or cyanosis. Good capillary refill. . Neurologic: Gait claritza. Sensation grossly intact.. ASSESSMENT/PLAN 1. Controlled type 2 diabetes mellitus without complication, without long-term current use of insulin (HCC) (E11.9) - Patient not currently checking blood glucose at home; denies polydipsia, polyuria, or hypoglycemic symptoms. - Continue metformin as prescribed. - Order labs prior to next visit; advised to fast if possible. 2. Hyperlipidemia, unspecified hyperlipidemia type (E78.5) - Order labs prior to next visit; advised to fast if possible. 3. Hypertension, essential (I10) BP stable. - Continue lisinopril as prescribed. 4. Chronic insomnia (F51.04) - Chronic insomnia well controlled with Ambien; patient reports effective sleep with medication, but insomnia persists without it. - Continue Ambien as prescribed. 5. Pain, dental (K08.89) - Intermittent dental pain due to two broken teeth. - Prescribed penicillin for suspected dental infection; advised that antibiotics are a temporary measure and do not address the underlying dental issue. - Advised to follow up with a dentist for definitive treatment. 6. Screening for colon cancer (Z12.11) - Referral to general surgery for colonoscopy; patient previously seen by Dr. Lanza. - Nurse practitioner will review risks, benefits, and bowel prep. 7. Encounter for immunization (Z23) - Tetanus immunization administered today; last documented dose was in 2011. - Discussed Shingrix vaccine: two-dose series, highly effective (>90% at 10 years), potential for flu-like side effects; advised to schedule on a day with minimal obligations. - Patient expressed interest in receiving Shingrix on a . 8. Mucopurulent chronic bronchitis (HCC) (J41.1) - Maintains Advair inhaler and Spiriva; uses albuterol inhaler frequently at work d/t work environment, but minimal use at home. - Continue current inhalers as prescribed. Discussed treatment plan and patient voices understanding. Patient's questions answered appropriately. Medications and potential side effects were discussed and patient voices understanding. Return to the office as scheduled or as needed for worsening/no improvement. Lulu Swanson APRN.[employer] Recording using [employer] software for draft documentation of the visit was discussed with the patient/authorized personal service representative; all questions welcomed and answered. Patient/authorized personal service representative agreed to proceed [1] Social History Tobacco Use Smoking status: Every Day Current packs/day: 1.00 Average packs/day: 1 pack/day for 49.6 years (49.6 ttl pk-yrs) Types: Cigarettes Start date: 02/10/1975 Smokeless tobacco: Never Vaping Use Vaping status: Never Used Substance Use Topics Alcohol use: Not Currently Comment: quit 04/18 Drug use: No documented in this encounter[facility] Instructions* Patient Instructions* Lulu Swanson APRN.CNP - 10/01/2024 1:53 PM EDT Tetanus shot today. Schedule nurse visit for shingles vaccine. Continue same medication. Take the antibiotic for dental infection and see dentist. Schedule with general surgery for colonoscopy. Recheck in 6 months. documented in this encounterAkron [facility]08-15-2025 NoteHNO ID: [id number] Author: LAVON TERRY LPN Service: ? Author Type: LICENSED NURSE Type: Progress Notes Filed: 09/24/2024 11:31 Note Text: Pt was feeling ill and requested to reschedule. Pt left without being seen by provider. [facility] History of Present illness Narrative* Lavon Terry LPN - 09/24/2024 11:27 AM EDT Pt was feeling ill and requested to reschedule. Pt left without being seen by provider. Lavon Terry LPN documented in this encounterAkron [facility]08-12-2025 Telephone encounter Note * Telephone Encounter - Lulu Swanson APRN.CNP - 09/21/2024 2:11 PM EDT Script sent. Not due until 09/26. [facility] Miscellaneous Notes* Telephone Encounter - Lulu Swanson APRN.CNP - 09/21/2024 2:11 PM EDT Script sent. Not due until 09/26. * Telephone Encounter - Elaine Bagley - 09/21/2024 8:45 AM EDT Spoke with patient and scheduled for 09/24, which is PCP's first available. Patient is asking for the prescription to be sent in since she does have an appointment. Elaine Bagley * Telephone Encounter - Lavon Terry LPN - 09/20/2024 5:24 PM EDT NO, pt does not have an upcoming appt with PCP. Pt's last OV in Primary Care was 05/25/24, not 08/24/24. Pt is overdue for follow up appt. Please assist pt with scheduling appt with PCP. Lavon Terry LPN * Telephone Encounter - Paulina Marino - 09/20/2024 4:24 PM EDT Prescription Refill Information The patient has been identified by name and date of : Yes Caregiver verified no other encounters exist for this prescription request: Yes Caregiver confirmed with patient/requestor that no other refills are due, in the near future, with this provider at this time: Yes The last office visit in the department: 08-24-24 Does the patient have a future office visit with this provider/department: Yes Requested Prescriptions Pending Prescriptions Disp Refills zolpidem (AMBIEN) 10 mg 30 tablet 0 Sig: Take 1 tablet by mouth daily at bedtime for 30 days. Paulina Mitchell September 20, 2024 4:24 PM documented in this encounterAkron [facility]08-12-2025 Telephone encounter Note * Telephone Encounter - Elaine Bagley - 09/21/2024 8:45 AM EDT Spoke with patient and scheduled for 09/24, which is PCP's first available. Patient is asking for the prescription to be sent in since she does have an appointment. Elaine Bagley [facility]08-[facility] Telephone encounter Note* Telephone Encounter - Lavon Terry LPN - 09/20/2024 5:24 PM EDT NO, pt does not have an upcoming appt with PCP. Pt's last OV in Primary Care was 05/25/24, not 08/24/24. Pt is overdue for follow up appt. Please assist pt with scheduling appt with PCP. Lavon Terry LPN [facility]08-[facility] Telephone encounter Note* Telephone Encounter - Paulina Marino - 09/20/2024 4:24 PM EDT Prescription Refill Information The patient has been identified by name and date of : Yes Caregiver verified no other encounters exist for this prescription request: Yes Caregiver confirmed with patient/requestor that no other refills are due, in the near future, with this provider at this time: Yes The last office visit in the department: 08-24-24 Does the patient have a future office visit with this provider/department: Yes Requested Prescriptions Pending Prescriptions Disp Refills zolpidem (AMBIEN) 10 mg 30 tablet 0 Sig: Take 1 tablet by mouth daily at bedtime for 30 days. Paulina Mitchell September 20, 2024 4:24 PM [facility] Telephone encounter Note* Telephone Encounter - Aarti Reyes - 08/31/2024 2:03 PM EDT Prescription Refill Information The patient has been identified by name and date of : Yes Caregiver verified no other encounters exist for this prescription request: Yes Caregiver confirmed with patient/requestor that no other refills are due, in the near future, with this provider at this time: Yes The last office visit in the department: 08-24-24 Does the patient have a future office visit with this provider/department: No Requested Prescriptions Pending Prescriptions Disp Refills cyclobenzaprine (FLEXERIL) 5 mg tablet 90 tablet 1 Sig: Take 1 tablet by mouth three times a day as needed. imipramine HCl (TOFRANIL) 50 mg tablet 270 tablet 1 Sig: Take 3 tablets by mouth daily at bedtime. Aarti Reyes August 31, 2024 2:04 PM [facility] Miscellaneous Notes* Telephone Encounter - Aarti Reyes - 08/31/2024 2:03 PM EDT Prescription Refill Information The patient has been identified by name and date of : Yes Caregiver verified no other encounters exist for this prescription request: Yes Caregiver confirmed with patient/requestor that no other refills are due, in the near future, with this provider at this time: Yes The last office visit in the department: 08-24-24 Does the patient have a future office visit with this provider/department: No Requested Prescriptions Pending Prescriptions Disp Refills cyclobenzaprine (FLEXERIL) 5 mg tablet 90 tablet 1 Sig: Take 1 tablet by mouth three times a day as needed. imipramine HCl (TOFRANIL) 50 mg tablet 270 tablet 1 Sig: Take 3 tablets by mouth daily at bedtime. Aarti Reyes August 31, 2024 2:04 PM documented in this encounterAkron [facility]07-15-2025 Telephone encounter Note * Telephone Encounter - Mi Espinoza RN - 08/24/2024 2:27 PM EDT The patient has been identified by name and date of : Yes Caregiver verified no other encounters exist for this prescription request: Yes Caregiver confirmed with patient/requestor that no other refills are due, in the near future, with this provider at this time: Yes The last office visit in the department: 05/25/2024 Does the patient have a future office visit with this provider/department: No Requested Prescriptions Pending Prescriptions Disp Refills zolpidem (AMBIEN) 10 mg 30 tablet 0 Sig: Take 1 tablet by mouth daily at bedtime for 30 days. Mi Espinoza RN August 24, 2024 2:27 PM [facility] Miscellaneous Notes* Telephone Encounter - Mi Espinoza RN - 08/24/2024 2:27 PM EDT The patient has been identified by name and date of : Yes Caregiver verified no other encounters exist for this prescription request: Yes Caregiver confirmed with patient/requestor that no other refills are due, in the near future, with this provider at this time: Yes The last office visit in the department: 05/25/2024 Does the patient have a future office visit with this provider/department: No Requested Prescriptions Pending Prescriptions Disp Refills zolpidem (AMBIEN) 10 mg 30 tablet 0 Sig: Take 1 tablet by mouth daily at bedtime for 30 days. Mi Espinoza RN August 24, 2024 2:27 PM documented in this encounterAkron [facility]07-15-2025 NoteHNO ID: [id number] Author: GOLDIE, GABE, DO Service: ? Author Type: Physician Type: Progress Notes Filed: 08/24/2024 10:28 Note Text: Subjective The patient is a 63-year-old female with a history of diabetes mellitus, presenting for left shoulder and neck pain, as well as right knee pain. Left Shoulder and Neck Pain: - Onset a few weeks ago, initially presenting as pain across the left shoulder and neck. - Pain began radiating up behind the neck on the left side. - Aggravated by lifting a watermelon; reports a sensation of "something just went" in the neck. - Describes a "dent" or swelling in the left shoulder and neck area, which she presses on for relief. - Pain exacerbated by reaching down and coming up; sometimes painful when turning the head. - Denies taking any medication for the pain. - Works at a [employer]. Right Knee Pain: - Concerned about recurrence of previous infection. - Pain localized around the knee, under the kneecap. - Denies heat or swelling in the knee. - No pain with rotation of the knee. - History of arthritis in the knee, particularly under the kneecap. Neck: (+) left-sided neck pain Musculoskeletal: (+) left shoulder pain, (+) right shoulder weakness, (+) knee pain, (-) knee swelling, (-) knee warmth Objective Last menstrual period 11/13/2009. General: No acute distress. MSK/Ext: Left shoulder and neck area with palpable knot in trapezius muscle; right shoulder weaker than left; knee without erythema or significant swelling, pain localized around patella, no pain with rotation. Labs: - Hemoglobin A1c: 6.1 Imaging: - Knee X-ray: Advanced patellofemoral arthritis with pkkm-hu-ykqa changes under the patella and a large osteophyte. Assessment AND Plan 1. Trigger point of left shoulder region (M25.512) - Pain localized to the left trapezius muscle, exacerbated by movement and palpation. - Administered trigger point injection with lidocaine and bupivacaine to alleviate muscle spasm and pain. - Provided patient with stretching exercises to perform daily to help loosen the muscle. - Patient can resume work tomorrow. 2. Other secondary osteoarthritis of right knee (M17.5) - Chronic pain due to severe osteoarthritis, particularly under the patella with zeff-pg-uahj contact and presence of a large osteophyte. - Recent X-ray shows no significant progression of arthritis. - No signs of infection; knee is not hot or swollen. - Prescribed etodolac 400 mg orally twice daily with food to manage inflammation and pain. - Advised to discontinue etodolac if gastrointestinal discomfort occurs. Trigger Point Injection: left upper trapezius 08/24/2024 10:26 AM The procedure site was prepped in the usual sterile fashion. Indications: pain Details: 25 G needle Medications: 2 mL lidocaine (PF) 10 mg/mL (1 %); 2 mL BUPivacaine (PF) 0.5 % (5 mg/mL) Outcome: tolerated well, no immediate complications Post-injection instructions were reviewed with the patient and the patient voiced understanding of these instructions. Informed Consent Consent Obtained: Verbal [place] Protocol SIGN IN TIME OUT Recording using [employer] software for draft documentation of the visit was discussed with the patient/authorized personal service representative; all questions welcomed and answered. Patient/authorized personal service representative agreed to proceedOhiohealth [facility]07-15-2025 History of Present illness Narrative* Gabe Hall V, DO - 08/24/2024 10:26 AM EDTAssociated Order(s): Trigger Point Injection: left upper trapezius Post-Procedure Diagnose(s): Trigger point of left shoulder region Subjective The patient is a 63-year-old female with a history of diabetes mellitus, presenting for left shoulder and neck pain, as well as right knee pain. Left Shoulder and Neck Pain: - Onset a few weeks ago, initially presenting as pain across the left shoulder and neck. - Pain began radiating up behind the neck on the left side. - Aggravated by lifting a watermelon; reports a sensation of "something just went" in the neck. - Describes a "dent" or swelling in the left shoulder and neck area, which she presses on for relief. - Pain exacerbated by reaching down and coming up; sometimes painful when turning the head. - Denies taking any medication for the pain. - Works at a [employer]. Right Knee Pain: - Concerned about recurrence of previous infection. - Pain localized around the knee, under the kneecap. - Denies heat or swelling in the knee. - No pain with rotation of the knee. - History of arthritis in the knee, particularly under the kneecap. Neck: (+) left-sided neck pain Musculoskeletal: (+) left shoulder pain, (+) right shoulder weakness, (+) knee pain, (-) knee swelling, (-) knee warmth Objective Last menstrual period 11/13/2009. General: No acute distress. MSK/Ext: Left shoulder and neck area with palpable knot in trapezius muscle; right shoulder weaker than left; knee without erythema or significant swelling, pain localized around patella, no pain with rotation. Labs: - Hemoglobin A1c: 6.1 Imaging: - Knee X-ray: Advanced patellofemoral arthritis with kore-hk-asos changes under the patella and a large osteophyte. Assessment & Plan 1. Trigger point of left shoulder region (M25.512) - Pain localized to the left trapezius muscle, exacerbated by movement and palpation. - Administered trigger point injection with lidocaine and bupivacaine to alleviate muscle spasm andpain. - Provided patient with stretching exercises to perform daily to help loosen the muscle. - Patient can resume work tomorrow. 2. Other secondary osteoarthritis of right knee (M17.5) - Chronic pain due to severe osteoarthritis, particularly under the patella with irws-ne-sxdx contact and presence of a large osteophyte. - Recent X-ray shows no significant progression of arthritis. - No signs of infection; knee is not hot or swollen. - Prescribed etodolac 400 mg orally twice daily with food to manage inflammation and pain. - Advised to discontinue etodolac if gastrointestinal discomfort occurs. Trigger Point Injection: left upper trapezius 08/24/2024 10:26 AM The procedure site was prepped in the usual sterile fashion. Indications: pain Details: 25 G needle Medications: 2 mL lidocaine (PF) 10 mg/mL (1 %); 2 mL BUPivacaine (PF) 0.5 % (5 mg/mL) Outcome: tolerated well, no immediate complications Post-injection instructions were reviewed with the patient and the patient voiced understanding of these instructions. Informed Consent Consent Obtained: Verbal [place] Protocol SIGN IN TIME OUT Recording using [employer] software for draft documentation of the visit was discussed with the patient/authorized personal service representative; all questions welcomed and answered. Patient/authorized personal service representative agreed to proceed * Dina Diaz MA - 08/24/2024 10:00 AM EDT AMB ROOMING INTAKE FLOWSHEET DATA Pain Pain Level: 10 Pain Location: Shoulder-Left Description: Sharp Duration Amount of Time: 2 Duration Units: Days Frequency: Intermittent Intervention/Comfort measure: Other: See comment documented in this encounterAkron [facility]07-15-2025 NoteHNO ID: [id number] Author: DINA DIAZ MA Service: ? Author Type: Marketing Data Specialist Type: Progress Notes Filed: 08/24/2024 10:28 Note Text: AMB ROOMING INTAKE FLOWSHEET DATA Pain Pain Level: 10 Pain Location: Shoulder-Left Description: Sharp Duration Amount of Time: 2 Duration Units: Days Frequency: Intermittent Intervention/Comfort measure: Other: See commentOhiohealth Southeastern [facility] Center 08-24-2024 History of Present illness Narrative* Neha Beard RT(R) - 08/24/2024 9:40 AM EDT Radiology Service Progress Note PATIENT NAME: David Aldrich DATE OF SERVICE: August 24, 2024 TIME: 4:24 PM PATIENT IDENTITY VERIFICATION COMPLETED USING TWO (2) IDENTIFIERS: Name and Date of confirmedby patient verbally. FALL SCREENING: Has the patient had 2 falls in the last year or 1 fall with injury or currently using an Ambulatory Assistive Device (Walker, Cane, Wheelchair, Crutches, etc.)? No PATIENT GENDER DATA: Assigned female at . status: : No status:NO. PATIENT RELEVANT IMPLANT DATA REVIEWED: Not Applicable PATIENT PRESENTS WITH AN IMPLANTABLE OR ATTACHED BUSINESS OFFICE TECHNICIAN: No RADIOLOGY DEPARTMENT: General X-ray: Exam(s) Completed: Lower Extremity X- Ray(s): Knee, AP / Lat / Tunne / Merchant Right and Wt. Bearing PERIPHERAL IV DATA: Not applicable SIGNED BY: RT Ana(R) August 24, 2024 4:24 PM documented in this encounterAkron [facility]07-15-2025 NoteHNO ID: [id number] Author: NEHA BEARD RT(R) Service: ? Author Type: Technologist Type: Progress Notes Filed: 08/24/2024 16:24 Note Text: Radiology Service Progress Note PATIENT NAME: David Aldrich DATE OF SERVICE: August 24, 2024 TIME: 4:24 PM PATIENT IDENTITY VERIFICATION COMPLETED USING TWO (2) IDENTIFIERS: Name and Date of confirmed by patient verbally. FALL SCREENING: Has the patient had 2 falls in the last year or 1 fall with injury or currently using an Ambulatory Assistive Device (Walker, Cane, Wheelchair, Crutches, etc.)? No PATIENT GENDER DATA: Assigned female at . status: : No status: NO. PATIENT RELEVANT IMPLANT DATA REVIEWED: Not Applicable PATIENT PRESENTS WITH AN IMPLANTABLE OR ATTACHED BUSINESS OFFICE TECHNICIAN: No RADIOLOGY DEPARTMENT: General X-ray: Exam(s) Completed: Lower Extremity X-Ray(s): Knee, AP / Lat / Tunne / Merchant Right and Wt. Bearing PERIPHERAL IV DATA: Not applicable SIGNED BY: RT Ana(R) August 24, 2024 4:24 [facility]06-17-2025 Telephone encounter Note* Telephone Encounter - Helen Lema RN - 07/27/2024 8:04 AM EDT The patient has been identified by name and date of : Yes Caregiver verified no other encounters exist for this prescription request: Yes Caregiver confirmed with patient/requestor that no other refills are due, in the near future, with this provider at this time: Yes The last office visit in the department: 05/25/2024 Does the patient have a future office visit with this provider/department: No Visit date not found Requested Prescriptions Pending Prescriptions Disp Refills zolpidem (AMBIEN) 10 mg 30 tablet 0 Sig: Take 1 tablet by mouth daily at bedtime for 30 days. Helen Lema RN July 27, 2024 8:05 AM [facility] Miscellaneous Notes* Telephone Encounter - Helen Lema RN - 07/27/2024 8:04 AM EDT The patient has been identified by name and date of : Yes Caregiver verified no other encounters exist for this prescription request: Yes Caregiver confirmed with patient/requestor that no other refills are due, in the near future, with this provider at this time: Yes The last office visit in the department: 05/25/2024 Does the patient have a future office visit with this provider/department: No Visit date not found Requested Prescriptions Pending Prescriptions Disp Refills zolpidem (AMBIEN) 10 mg 30 tablet 0 Sig: Take 1 tablet by mouth daily at bedtime for 30 days. Helen Lema RN July 27, 2024 8:05 AM documented in this encounterAkron [facility]06-02-2025 Telephone encounter Note * Telephone Encounter - Pengilly Cecy Mitchell - 07/12/2024 11:19 AM EDT Prescription Refill Information The patient has been identified by name and date of : Yes Caregiver verified no other encounters exist for this prescription request: Yes Caregiver confirmed with patient/requestor that no other refills are due, in the near future, with this provider at this time: Yes The last office visit in the department: 05/25/24 Does the patient have a future office visit with this provider/department: No Requested Prescriptions Pending Prescriptions Disp Refills cyclobenzaprine (FLEXERIL) 5 mg tablet 90 tablet 1 Sig: Take 1 tablet by mouth three times a day as needed. Cecy Martinez [facility] July 12, 2024 11:20 AM [facility]06-[facility] Miscellaneous Notes* Telephone Encounter - Pengilly Cecy Mitchell - 07/12/2024 11:19 AM EDT Prescription Refill Information The patient has been identified by name and date of : Yes Caregiver verified no other encounters exist for this prescription request: Yes Caregiver confirmed with patient/requestor that no other refills are due, in the near future, with this provider at this time: Yes The last office visit in the department: 05/25/24 Does the patient have a future office visit with this provider/department: No Requested Prescriptions Pending Prescriptions Disp Refills cyclobenzaprine (FLEXERIL) 5 mg tablet 90 tablet 1 Sig: Take 1 tablet by mouth three times a day as needed. Cecy Mitchell July 12, 2024 11:20 AM documented in this encounterAkron Children'[facility]05-19-2025 Telephone encounter Note * Telephone Encounter - Essie Abarca LPN - 06/28/2024 3:52 PM EDT Pt has been placed on the wist list for consult. [facility] Miscellaneous Notes* Telephone Encounter - Essie Abarca LPN - 06/28/2024 3:52 PM EDT Pt has been placed on the wist list for consult. * Telephone Encounter - Angeline Escobar - 06/01/2024 2:47 PM EDT Please see weight loss referral * Telephone Encounter - Lulu Swanson APRN.CNP - 05/28/2024 3:38 PM EDT Referral placed. Please help schedule. * Telephone Encounter - Lavon Terry LPN - 05/28/2024 10:48 AM EDT Phoned pt, notified of provider response. Pt asking if provider will prescribe something for weightloss for her. Advised provider does not prescribe weight loss medication. Recommended weight management program, pt agreeable to this. Please place referral and forward to scheduling. Lavon Terry LPN * Telephone Encounter - Lulu Swanson APRN.CNP - 05/28/2024 10:31 AM EDT We did complete a prior authorization for her insurance, but they will not cover the medication. * Telephone Encounter - Elaine Machuca RN - 05/27/2024 12:31 PM EDT Patient calls and notified of below. Patient asking if Lulu can do something to get this approved? Please review and advise, Elaine Machuca RN * Telephone Encounter - Lavon Terry LPN - 05/26/2024 4:54 PM EDT SEE RESULTS NOTE TOO. * Telephone Encounter - Lavon Terry LPN - 05/26/2024 1:52 PM EDT Phoned pt, no answer, unable to leave message d/t voicemail box is full and can not accept messagesat this time. * Telephone Encounter - Lulu Swanson APRN.CNP - 05/26/2024 1:34 PM EDT Can please let patient know that the injectable diabetes medication was denied by her insurance. * Telephone Encounter - Essie Abarca LPN - 05/26/2024 8:26 AM EDT Images from the original note were not included. This was denied. Note from payer: Coverage is provided when the member meets all the following: Member has had an inadequate clinical response (the inability to reach A1C goal after at least 120 days of current regimen, with use of two or more drugs concomitantly per ADA ([place] [employer]) guidelines, documented adherence, and appropriate dose increases. [employer] Policy for Medical Necessity as posted on the [facility] website and [facility] Preferred Drug List criteria were reviewed and per [place] Administrative Code Rule 5160-1-01 (C) and (B), a medically necessary service must include: generally accepted standards of medical practice, be clinically appropriate in administration, treatment and outcome and be the lowest cost alternative to effectively treat the condition. Please contact your provider to assist you with other treatment options that might be covered under your benefit package, or other services that might be available through the community. Payer: [facility] Electronic appeal: Not supported View History Notes Time User Attachment Attachment received from payer. 05/26/2024 8:25 AM Cchs, Rx Priorauth In Document * Telephone Encounter - Essie Abarca LPN - 05/26/2024 8:23 AM EDT Electronic PA re'c and completed for [email or web address]. documented in this encounterAk[facility] Instructions* Patient Instructions* Dani Pearce APRN.[facility] - 06/22/2024 11:10 AM EDT Nicotine patch: You are getting multiple doses of the nicotine patches. Start with 21 mcg dose for 4 weeks. Apply to clean, dry, non hairy area on your upper body. Make sure you rotate where you place the patch. Replace the patch right away after removing the old one. You'll wear the 21 mcg patch for 4 weeks, 14 mcg patch for 2 weeks and 7 mcg patch for 2 weeks for a total of 8 weeks. Side effects: skin irritation, palpitations, insomnia. Wellbutrin: Take 1 tablet a day for 3 days before increasing to 1 tablet, twice a day. Pick a target quit date within a week or 2 before you start Wellbutrin. You can take this medication for anywhere from 12 weeks to 1 year. Side effects: insomnia, agitation, dry mouth, headache or weight loss. [phone] ([phone]). documented in this encounterAkron [facility]05-13-[facility]25 History of Present illness Narrative* Dani Pearce APRN.CNP - 06/22/2024 11:00 AM EDT Images from the original note were not included. Pulmonary Medicine Patients name: David Aldrich PCP: Lulu Swanson APRN.CNP CC: follow-up COPD HPI: David Aldrich is a 63 year old female current 50 pack year smoker with PMH significant for DM, HLD, HTN, hepatic steatosis, and Depression. New to Dr. Leong 01/2024 for COPD. Symptoms include dyspnea with exertion, daily productive cough and wheezing. Pulmonary function test show mild obstruction, mainly small airways obstruction that improves with bronchodilator, significant air trapping andhyperinflation, reduction in diffusing capacity. Her lung cancer screening CT shows some mild upperlobe emphysema and bronchial wall thickening. Current inhaled therapy with Advair 250, Spiriva and PRN Albuterol. She presents today for follow-up. Following her last visit, she had a nocturnal oximetry without need for supplemental O2. Overall, she has done well. Continues to have SOB with exertion. Oximetry with ambulation today shows stable SPO2 with exertion. Today, patient reports continued cough, not typically productive. No hemoptysis. O ccasional wheezing. No Chest tightness or nocturnal symptoms. No dyspnea at rest. Exertional dyspnea with stairs, carrying groceries and notes while at work. No recent hospitalizations or ED visits or upper respiratory infections. Albuterol use is at least 4 days a week d/t SOB. She is interested in smoking cessation and wants to quit before her lung disease worsens. She started smoking at 15 years old and has historically smoked 1/2 ppd. Has increased the amount of cigarettes she smokes as she has gotten older and now averages 1 ppd. Starts smoking first thing in the morning. Has not tried smoking before but was previously prescribed Wellbutrin and NRT patches and did not use. Agreeable to those options again today. PAST MEDICAL HISTORY Diagnosis Date Arrhythmia Bradycardia Diabetes mellitus with peripheral artery disease (HCC) 03/06/2015 H/O percutaneous left heart catheterization 05/2012 negative--[facility] History of rectal polypectomy 09/23/201712/2014: hyperplastic polyp Hyperlipidemia LDL goal < 100 01/25/2013 Hypertension Major depressive disorder, recurrent episode, unspecified Non-alcoholic fatty liver disease 10/13/2014 Other and unspecified hyperlipidemia Peripheral arterial disease 03/06/2015 Recurrent major depressive disorder, in full remission 03/10/2017 Snoring Type 2 diabetes mellitus with stage 3 chronic kidney disease, without long-term current use of insulin ([facility]) 05/11/2016 Allergies: Zocor [Simvastatin] Myalgia Medication List Accurate as of June 22, 2024 7:39 AM. If you have any questions, ask your nurse or doctor. CONTINUE taking these medications albuterol HFA 90 mcg/actuation inhaler Commonly known as: VENTOLIN HFA Inhale 2 Puffs as instructed every 4 hours as needed for wheezing/shortness of breath. Aspirin 81 mg Tab Take 1 tablet by mouth once daily. Take with food. atorvastatin 20 mg tablet Commonly known as: LIPITOR Take 1 tablet by mouth once daily. blood sugar diagnostic test strip Commonly known as: BLOOD GLUCOSE TEST Test blood sugar(s) 1 times daily. Dx: Type 2 DM - Controlled E11.9 Insulin: No cyclobenzaprine 5 mg tablet Commonly known as: FLEXERIL Take 1 tablet by mouth three times a day as needed. fluticasone-salmeterol 250-50 mcg/dose inhaler Commonly known as: ADVAIR DISKUS Inhale 1 Puff as instructed two times a day. RINSE AND GARGLE MOUTH WITH WATER AFTER EACH USE. ibuprofen 800 mg tablet Commonly known as: MOTRIN Take 1 tablet by mouth every 8 hours as needed for pain. Take with food. imipramine HCl 50 mg tablet Commonly known as: TOFRANIL Take 3 tablets by mouth daily at bedtime. Lancets Test blood sugar(s) 1 times daily. Dx: Type 2 DM - Controlled E11.9 Insulin: No lisinopril 5 mg tablet Commonly known as: ZESTRIL Take 1 tablet by mouth once daily. Melatonin 5 mg Cap Take 1 capsule by mouth once daily. metFORMIN 500 mg tablet Commonly known as: GLUCOPHAGE Take 1 tablet by mouth daily with dinner. ondansetron orally disintegrating 4 mg disintegrating tablet Commonly known as: ZOFRAN ODT Take 1 tablet by mouth every 8 hours as needed for nausea/vomiting. polyethylene glycol 3350 17 gram/dose powder Use as directed for Miralax / Gatorade Bowel Prep Kit SPIRIVA RESPIMAT 2.5 mcg/actuation inhaler Generic drug: tiotropium bromide Inhale 2 Puffs as instructed once daily. thiothixene 1 mg capsule Commonly known as: NAVANE Take 2 capsules by mouth two times a day. zolpidem 10 mg Commonly known as: AMBIEN Take 1 tablet by mouth daily at bedtime for 30 days. Patient should start on May 31, 2024. DATA: I personally reviewed and analyzed all labs, radiographs and available pulmonary function testing 06/22/2024 PFT: SERVICE DATE: 12/18/2023 SERVICE TIME: 1:41 PM Oral Exhaled Nitric Oxide measurement: 7.0 (ppb) PFT 12/2023: Mild obstruction, improvement in small airways postbronchodilator, air trapping and hyperinflation,reduction in diffusing capacity CT Chest: 11/2023 IMPRESSION: LungRADS category: 0. LungRADS modifier: Significant other (S), coronary artery calcification, moderate or severe. LungRADS 0 reason: N/A. Recommendations: Additional lung cancer screening CT images and/or comparison to prior chest CT examinations is needed. Given suspected multifocal peribronchial inflammatory/infectious change, consider repeat CT in 3 months, and correlate with clinical presentation for consideration of any active process. Other actionable findings: Reference: [employer]. Lung CT Screening Reporting and Data System (Lung-RADS). Available at: http://www.acr.org/Quality-Safety/Resources/LungRADS Ug Designer: CARLA Transcribe Date/Time: Nov 27 2023 2:07P Dictated by : EJ LENTZ MD This examination was interpreted and the report reviewed and electronically signed by: EJ LENTZ MD on Nov 27 2023 2:25PM EST Results-Findings * * *Final Report* * * DATE OF EXAM: Nov 27 2023 11:45AM [facility] 0562 - CT LUNG SCREEN [facility] / PROCEDURE REASON: multiple diagnoses * * * * Physician Interpretation * * * * EXAMINATION: CHEST CT WITHOUT CONTRAST (LOW-DOSE CT LUNG CANCER SCREENING PROTOCOL) CLINICAL HISTORY: Lung cancer LDCT screening ? absence of signs or symptoms of lung cancer. Technique: Spiral CT acquisition of the chest from the thoracic inlet to the upper abdomen without contrast. MQ: [id number]_6 Patient characteristics: * Slxy-pl-Zaozo: 1960; Age at exam: 63 years * Gender: Female * Lung Disease: Asymptomatic (no signs or symptoms of lung disease) * Number of Pack Years: 48 * Current smoker (=0) or Number of Years since Quit: 0 * Ordering provider and NPI: ADWOA DE LEON * Interpreting radiologist and NPI: Lisbeth [id number] Exam acquisition parameters: * Exam Date: 11/27/2023 11:45 AM * Site: [facility] * * CT System Property Utilization Manager: Siemens * CT System Model: Sensation * Tube Current-Time (mA-sec): 27 * Peak Voltage (kV): 120V * Scan Time (sec): 8.87 * Scan Volume (z-length, cm): -23.15 * Pitch: 0.75 * Slice Thickness (mm): 1.5 * CT Dose-Length Product: 75 mGy*cm * CT Dose Index: 2.09mGy * CT Dose Reduction Method: Automated exposure control(AEC) and iterative recon COMPARISON: Type of study and date/time RESULT: Clustered peribronchial branching and nodular opacity within middle lobe images 143 through 1620, and in RIGHT lower lobe 163 through 188. No dominant nodule or howard consolidation, most nodules in size range 2 to 3 mm, some confluent opacities up to 6 x 3 mm for example on image 167. Few additional scattered tiny opacities, for example within RIGHT upper lobe image 83 measuring 2 mm, and measuring 3 mm LEFT lower lobe image 161. Other findings: Mild apical predominant emphysema. Mild LEFT atrial dilation. Mediastinal lymph nodes which are subcentimeter to borderline enlarged. Partial fatty atrophy RIGHT periscapular muscles. Degenerative changes thoracic spine. Incidental coronary calcium as automatically processed and calculated using AI: Total Coronary Calcium Score = [100+] Agatston Units Percentile Rank (age and gender matched relative to reference population): [75th-100th] percentile* [* [email or web address]-[email or web address]/calcium/input.[email or web address]] Localizer images: Mild curvature and degenerative change lumbar spine Labs: WBC (k/uL) Date Value 05/25/2024 8.49 01/25/2021 9.46 RBC (m/uL) Date Value 05/25/2024 4.32 01/25/2021 4.41 Hemoglobin (g/dL) Date Value 05/25/2024 13.5 01/25/2021 14.2 Hematocrit (%) Date Value 05/25/2024 41.2 01/25/2021 42.0 Platelet Count (k/uL) Date Value 05/25/2024 280 01/25/2021 339 MPV (fL) Date Value 05/25/2024 10.3 01/25/2021 9.7 Neut% (%) Date Value 01/25/2021 59.9 Neutrophils % (%) Date Value 05/25/2024 62.4 Eosin% (%) Date Value 01/25/2021 5.2 Eosinophils % (%) Date Value 05/25/2024 5.4 Baso% (%) Date Value 01/25/2021 1.1 Basophils % (%) Date Value 05/25/2024 0.8 Abs Neut (ANC) (k/uL) Date Value 01/25/2021 5.68 Abs Neut (k/uL) Date Value 05/25/2024 5.29 Abs Sebastian (k/uL) Date Value 05/25/2024 0.66 01/25/2021 0.63 Abs Eosin (k/uL) Date Value 05/25/2024 0.46 01/25/2021 0.49 Abs Baso (k/uL) Date Value 05/25/2024 0.07 01/25/2021 0.10 IMMUNIZATIONS Prevnar - 04/2023 Pneumovax 23 - xx Influenza - xx COVID-19 - xx RSV- xx Review of Systems Constitutional: Negative for activity change, appetite change and unexpected weight change. HENT: Negative for congestion, mouth sores, postnasal drip and sinus pressure. Respiratory: Positive for cough, shortness of breath and wheezing. Negative for chest tightness. Cardiovascular: Negative for chest pain, palpitations and leg swelling. Allergic/Immunologic: Negative for environmental allergies. Neurological: Negative for weakness and headaches. BP 118/70 Pulse 71 Resp 15 Wt 70.3 kg (155 lb) LMP 11/13/2009 SpO2 97% BMI 27.90 kg/m Physical Exam Vitals reviewed. Constitutional: General: She is not in acute distress. Appearance: Normal appearance. She is not ill-appearing. HENT: Head: Normocephalic. Nose: No rhinorrhea. Mouth/Throat: Mouth: Mucous membranes are moist. Pharynx: No oropharyngeal exudate or posterior oropharyngeal erythema. Cardiovascular: Rate and Rhythm: Normal rate and regular rhythm. Heart sounds: Normal heart sounds. Pulmonary: Effort: Pulmonary effort is normal. No respiratory distress. Breath sounds: No wheezing or rhonchi. Musculoskeletal: Right lower leg: No edema. Left lower leg: No edema. Lymphadenopathy: Cervical: No cervical adenopathy. Skin: General: Skin is warm and dry. Capillary Refill: Capillary refill takes less than 2 seconds. Neurological: General: No focal deficit present. Mental Status: She is alert. ASSESSMENT/PLAN: 1. COPD, mild (HCC) - ICD9: 496, ICD10: J44.9 (primary diagnosis) 2. Pulmonary emphysema, unspecified emphysema type (HCC) - ICD9: 492.8, ICD10: J43.9 - mild emphysema on most recent CT - continues to be symptomatic with mostly nonproductive cough and exertional dyspnea. - recommended smoking cessation. - discussed increasing inhaled therapy but she opted to keep the current doses the same and focus on smoking cessation. - Continue triple therapy and Albuterol as needed. 3. Tobacco use current - ICD9: 305.1, ICD10: Z72.0 - Cessation encouraged. - Physiologic and physical aspects of tobacco addiction as well as strategies for quitting were discussed. - Counseling was given focusing on the harmful effects of this addiction especially given the patient's medical condition(s) which will be worsened because of the chemicals in tobacco. - Recommended to called 1-800-QUIT NOW - NICOTINE 21 MG/24 HR DAILY TRANSDERMAL PATCH - NICOTINE 14 MG/24 HR DAILY TRANSDERMAL PATCH - NICOTINE 7 MG/24 HR DAILY TRANSDERMAL PATCH - BUPROPION HCL SR 150 MG TABLET,12 HR SUSTAINED-RELEASE - CONSULT TO SMOKING/VAPING CESSATION F/u 6-8 weeks for smoking cessation. 6 months for COPD follow-up. Portions of this documentation were copied and pasted from previous office visit notes in order to provide a cohesive continuity of the history. The note has been reviewed and edited and updated as necessary. Dani Pearce APRN.CNP I spent a total of 44 minutes on the date of the service which included preparing to see the patient, [id number] patient care, completing clinical documentation, performing a medically appropriate examination, counseling and educating the patient/family/caregiver, and ordering medications, tests,or procedures. documented in this encounterAkron [facility]05-13-2025 NoteHNO ID: [id number] Author: DANI PEARCE APRN.CNP Service: ? Author Type: Nurse Practitioner Type: Progress Notes Filed: 06/22/2024 11:50 Note Text: Pulmonary Medicine Patients name: David Aldrich PCP: Lulu Swanson APRN.CNP CC: follow-up COPD HPI: David Aldrich is a 63 year old female current 50 pack year smoker with PMH significant for DM, HLD, HTN, hepatic steatosis, and Depression. New to Dr. Leong 01/2024 for COPD. Symptoms include dyspnea with exertion, daily productive cough and wheezing. Pulmonary function test show mild obstruction, mainly small airways obstruction that improves with bronchodilator, significant air trapping and hyperinflation, reduction in diffusing capacity. Her lung cancer screening CT shows some mild upper lobe emphysema and bronchial wall thickening. Current inhaled therapy with Advair 250, Spiriva and PRN Albuterol. She presents today for follow-up. Following her last visit, she had a nocturnal oximetry without need for supplemental O2. Overall, she has done well. Continues to have SOB with exertion. Oximetry with ambulation today shows stable SPO2 with exertion. Today, patient reports continued cough, not typically productive. No hemoptysis. Occasional wheezing. No Chest tightness or nocturnal symptoms. No dyspnea at rest. Exertional dyspnea with stairs, carrying groceries and notes while at work. No recent hospitalizations or ED visits or upper respiratory infections. Albuterol use is at least 4 days a week d/t SOB. She is interested in smoking cessation and wants to quit before her lung disease worsens. She started smoking at 15 years old and has historically smoked 1/2 ppd. Has increased the amount of cigarettes she smokes as she has gotten older and now averages 1 ppd. Starts smoking first thing in the morning. Has not tried smoking before but was previously prescribed Wellbutrin and NRT patches and did not use. Agreeable to those options again today. PAST MEDICAL HISTORY Diagnosis Date Arrhythmia Bradycardia Diabetes mellitus with peripheral artery disease (HCC) 03/06/2015 H/O percutaneous left heart catheterization 05/2012 negative--[facility] History of rectal polypectomy 09/23/201712/2014: hyperplastic polyp Hyperlipidemia LDL goal < 100 01/25/2013 Hypertension Major depressive disorder, recurrent episode, unspecified Non-alcoholic fatty liver disease 10/13/2014 Other and unspecified hyperlipidemia Peripheral arterial disease 03/06/2015 Recurrent major depressive disorder, in full remission 03/10/2017 Snoring Type 2 diabetes mellitus with stage 3 chronic kidney disease, without long-term current use of insulin (HCC) 05/11/2016 Allergies: Zocor [Simvastatin] Myalgia Medication List Accurate as of June 22, 2024 7:39 AM. If you have any questions, ask your nurse or doctor. CONTINUE taking these medications albuterol HFA 90 mcg/actuation inhaler Commonly known as: VENTOLIN HFA Inhale 2 Puffs as instructed every 4 hours as needed for wheezing/shortness of breath. Aspirin 81 mg Tab Take 1 tablet by mouth once daily. Take with food. atorvastatin 20 mg tablet Commonly known as: LIPITOR Take 1 tablet by mouth once daily. blood sugar diagnostic test strip Commonly known as: BLOOD GLUCOSE TEST Test blood sugar(s) 1 times daily. Dx: Type 2 DM - Controlled E11.9 Insulin: No cyclobenzaprine 5 mg tablet Commonly known as: FLEXERIL Take 1 tablet by mouth three times a day as needed. fluticasone-salmeterol 250-50 mcg/dose inhaler Commonly known as: ADVAIR DISKUS Inhale 1 Puff as instructed two times a day. RINSE AND GARGLE MOUTH WITH WATER AFTER EACH USE. ibuprofen 800 mg tablet Commonly known as: MOTRIN Take 1 tablet by mouth every 8 hours as needed for pain. Take with food. imipramine HCl 50 mg tablet Commonly known as: TOFRANIL Take 3 tablets by mouth daily at bedtime. Lancets Test blood sugar(s) 1 times daily. Dx: Type 2 DM - Controlled E11.9 Insulin: No lisinopril 5 mg tablet Commonly known as: ZESTRIL Take 1 tablet by mouth once daily. Melatonin 5 mg Cap Take 1 capsule by mouth once daily. metFORMIN 500 mg tablet Commonly known as: GLUCOPHAGE Take 1 tablet by mouth daily with dinner. ondansetron orally disintegrating 4 mg disintegrating tablet Commonly known as: ZOFRAN ODT Take 1 tablet by mouth every 8 hours as needed for nausea/vomiting. polyethylene glycol 3350 17 gram/dose powder Use as directed for Miralax / Gatorade Bowel Prep Kit SPIRIVA RESPIMAT 2.5 mcg/actuation inhaler Generic drug: tiotropium bromide Inhale 2 Puffs as instructed once daily. thiothixene 1 mg capsule Commonly known as: NAVANE Take 2 capsules by mouth two times a day. zolpidem 10 mg Commonly known as: AMBIEN Take 1 tablet by mouth daily at bedtime for 30 days. Patient should start on May 31, 2024. DATA: I personally reviewed and analyzed all labs, radiographs a (more content not included)...[facility]05-13-2025 NoteHNO ID: [id number] Author: BHAVANI GARCIA RPFT Service: ? Author Type: Respiratory Therapist Type: Procedures Filed: 06/22/2024 10:44 Note Text: RESPIRATORY THERAPY OXIMETRY WITH AMBULATION Oximetry with Ambulation Test for This Encounter O2 Device O2 Adapter NC O2 Flow SpO2% HR Activity Ft Walked (ft) Time (min) Avg Speed (MPH) R/A 97 71 Resting R/A 98 95 Walking, usual pace 580 3 2.2 R/A 97 103 Walking, fastest pace 690 3 2.61 General Information Pulse Oximetry Site Total Time Spent Walking Assistance/O2 Supply Carrier Forehead 30 None NAME: Bhavani HEMANT Garcia PATIENT NAME: David Aldrich DATE: June 22, 2024 TIME: 10:44 AM Comment:[facility]05-13-2025 Procedure note* Jose HEMANT Beckham - 06/22/2024 10:43 AM EDTAssociated Order(s): OXIMETRY WITH AMBULATION RESPIRATORY THERAPY OXIMETRY WITH AMBULATION Oximetry with Ambulation Test for This Encounter O2 Device O2 Adapter NC O2 Flow SpO2% HR Activity Ft Walked (ft) Time (min) Avg Speed (MPH) R/A 97 71 Resting R/A 98 95 Walking, usual pace 580 3 2.2 R/A 97 103 Walking, fastest pace 690 3 2.61 General Information Pulse Oximetry Site Total Time Spent Walking Assistance/O2 Supply Carrier Forehead 30 None NAME: Bhavani HarrisHEMANT estrada PATIENT NAME: David Aldrich DATE: June 22, 2024 TIME: 10:44 AM Comment: [facility] Procedure note* Bhavani Garcia RPFT - 06/22/2024 10:43 AM EDTAssociated Order(s): OXIMETRY WITH AMBULATION RESPIRATORY THERAPY OXIMETRY WITH AMBULATION Oximetry with Ambulation Test for This Encounter O2 Device O2 Adapter NC O2 Flow SpO2% HR Activity Ft Walked (ft) Time (min) Avg Speed (MPH) R/A 97 71 Resting R/A 98 95 Walking, usual pace 580 3 2.2 R/A 97 103 Walking, fastest pace 690 3 2.61 General Information Pulse Oximetry Site Total Time Spent Walking Assistance/O2 Supply Carrier Forehead 30 None NAME: HEMANT Villegas PATIENT NAME: David Aldrich DATE: June 22, 2024 TIME: 10:44 AM Comment: documented in this encounterAkron [facility]05-12-2025 Telephone encounter Note * Telephone Encounter - Mi Espinoza RN - 06/21/2024 3:58 PM EDT The patient has been identified by name and date of : Yes Caregiver verified no other encounters exist for this prescription request: Yes Caregiver confirmed with patient/requestor that no other refills are due, in the near future, with this provider at this time: Yes The last office visit in the department: 05/25/2024 Does the patient have a future office visit with this provider/department: Yes 06/28/2024 Requested Prescriptions Pending Prescriptions Disp Refills zolpidem (AMBIEN) 10 mg 30 tablet 0 Sig: Take 1 tablet by mouth daily at bedtime for 30 days. Patient should start on July 01, 2024. Patient calls to request Ambien. Not due until 07/01/2024. Patient reports often [facility] doesn't have it in stock so requests early to get in time for when due. Pended for 07/01/2024. Mi Espinoza RN June 21, 2024 3:59 PM [facility] Miscellaneous Notes* Telephone Encounter - Mi Espinoza RN - 06/21/2024 3:58 PM EDT The patient has been identified by name and date of : Yes Caregiver verified no other encounters exist for this prescription request: Yes Caregiver confirmed with patient/requestor that no other refills are due, in the near future, with this provider at this time: Yes The last office visit in the department: 05/25/2024 Does the patient have a future office visit with this provider/department: Yes 06/28/2024 Requested Prescriptions Pending Prescriptions Disp Refills zolpidem (AMBIEN) 10 mg 30 tablet 0 Sig: Take 1 tablet by mouth daily at bedtime for 30 days. Patient should start on July 01, 2024. Patient calls to request Ambien. Not due until 07/01/2024. Patient reports often [facility] doesn't have it in stock so requests early to get in time for when due. Pended for 07/01/2024. Mi Espinoza RN June 21, 2024 3:59 PM documented in this encounterAkron Children'[facility]04-22-2025 Telephone encounter Note * Telephone Encounter - Angeline Escobar - 06/01/2024 2:47 PM EDT Please see weight loss referral [facility] Telephone encounter Note* Telephone Encounter - Lulu Swanson APRN.CNP - 05/28/2024 3:38 PM EDT Referral placed. Please help schedule. [facility] Telephone encounter Note* Telephone Encounter - Lavon Terry LPN - 05/28/2024 10:48 AM EDT Phoned pt, notified of provider response. Pt asking if provider will prescribe something for weightloss for her. Advised provider does not prescribe weight loss medication. Recommended weight management program, pt agreeable to this. Please place referral and forward to scheduling. Lavon Terry LPN [facility] Telephone encounter Note* Telephone Encounter - Lulu Swanson APRN.CNP - 05/28/2024 10:31 AM EDT We did complete a prior authorization for her insurance, but they will not cover the medication. [facility] Telephone encounter Note* Telephone Encounter - Elaine Machuca RN - 05/27/2024 12:32 PM EDT Patient notified of results and provider's instructions. Patient verbalizes understanding. Elaine Machuca RN [facility] Miscellaneous Notes* Telephone Encounter - Elaine Machuca RN - 05/27/2024 12:32 PM EDT Patient notified of results and provider's instructions. Patient verbalizes understanding. Elaine Machuca RN * Telephone Encounter - Lavon Terry LPN - 05/26/2024 4:52 PM EDT Phoned pt, no answer,unable to leave message d/t voicemail is full. ALSO- SEE TE REGARDING MEDICATION PRIOR AUTHORIZATION. * Telephone Encounter - Lulu Swanson APRN.CNP - 05/26/2024 4:49 PM EDT Can please let patient know that I received her lab results, and everything looks within normal/stable. Lulu Swanson APRN.CANDACE [facility] Telephone encounter Note * Telephone Encounter - Elaine Machuca RN - 05/27/2024 12:31 PM EDT Patient calls and notified of below. Patient asking if Lulu can do something to get this approved? Please review and advise, Elaine Machuca RN [facility]04-16-2025 Telephone encounter Note* Telephone Encounter - Lavon Terry LPN - 05/26/2024 4:54 PM EDT SEE RESULTS NOTE TOO. [facility]04[facility] Telephone encounter Note* Telephone Encounter - Lavon Terry LPN - 05/26/2024 4:52 PM EDT Phoned pt, no answer,unable to leave message d/t voicemail is full. ALSO- SEE TE REGARDING MEDICATION PRIOR AUTHORIZATION. [facility]04-[facility] Telephone encounter Note* Telephone Encounter - Lulu Swanson APRN.CNP - 05/26/2024 4:49 PM EDT Can please let patient know that I received her lab results, and everything looks within normal/stable. Lulu Swanson APRN.CNP [facility]04-16-2025 Telephone encounter Note* Telephone Encounter - Lavon Terry LPN - 05/26/2024 1:52 PM EDT Phoned pt, no answer, unable to leave message d/t voicemail box is full and can not accept messagesat this time. [address]16-2025 Telephone encounter Note* Telephone Encounter - Lulu Swanson APRN.CNP - 05/26/2024 1:34 PM EDT Can please let patient know that the injectable diabetes medication was denied by her insurance. [facility]04-[facility] Telephone encounter Note* Telephone Encounter - Essie Abarca LPN - 05/26/2024 8:26 AM EDT Images from the original note were not included. This was denied. Note from payer: Coverage is provided when the member meets all the following: Member has had an inadequate clinical response (the inability to reach A1C goal after at least 120 days of current regimen, with use of two or more drugs concomitantly per ADA ([place] [employer]) guidelines, documented adherence, and appropriate dose increases. [employer] Policy for Medical Necessity as posted on the [facility] website and [facility] Preferred Drug List criteria were reviewed and per [place] Administrative Code Rule 5160-1-01 (C) and (B), a medically necessary service must include: generally accepted standards of medical practice, be clinically appropriate in administration, treatment and outcome and be the lowest cost alternative to effectively treat the condition. Please contact your provider to assist you with other treatment options that might be covered under your benefit package, or other services that might be available through the community. Payer: [facility] Electronic appeal: Not supported View History Notes Time User Attachment Attachment received from payer. 05/26/2024 8:25 AM Cchs, Rx Priorauth In Document [facility]04[facility] Telephone encounter Note* Telephone Encounter - Essie Abarca LPN - 05/26/2024 8:23 AM EDT Electronic PA re'c and completed for dino. [facility]04[facility] NoteHNO ID: [id number] Author: LULU SWANSON APRN.CANDACE Service: ? Author Type: Nurse Practitioner Type: Progress Notes Filed: 05/25/2024 18:34 Note Text: This is a 63 year old female who presents today with: David is a 63-year-old female with a history of type 2 diabetes mellitus, anxiety, depression, and hyperlipidemia, presenting for management of diabetes and weight loss. HISTORY OF PRESENT ILLNESS: Type 2 Diabetes Mellitus: - Currently taking metformin 500 mg daily; no side effects reported. - Last labs were in August of the previous year. - Interested in starting a GLP-1 receptor agonist for glycemic control and weight loss. - Denies history of pancreatitis or thyroid cancer. Weight Gain: - Current weight: 157 lbs. - Expresses concern about weight gain and desires weight loss. Anxiety and Depression: Stable on current regimen. Hyperlipidemia: - Tolerating current medication well. Dyspnea: - Scheduled for a breathing testing to assess the need for nocturnal oxygen therapy. - No chest pain, dizziness, or syncope reported. Insomnia: - Currently taking Ambien; effective with no side effects. - Experiences insomnia if Ambien is not taken. Tox screen is up to date. PAST MEDICAL HISTORY: PAST MEDICAL HISTORY Diagnosis Date Arrhythmia Bradycardia Diabetes mellitus with peripheral artery disease (HCC) 03/06/2015 H/O percutaneous left heart catheterization 05/2012 negative--[facility] History of rectal polypectomy 09/23/201712/2014: hyperplastic polyp Hyperlipidemia LDL goal < 100 01/25/2013 Hypertension Major depressive disorder, recurrent episode, unspecified Non-alcoholic fatty liver disease 10/13/2014 Other and unspecified hyperlipidemia Peripheral arterial disease 03/06/2015 Recurrent major depressive disorder, in full remission 03/10/2017 Snoring Type 2 diabetes mellitus with stage 3 chronic kidney disease, without long-term current use of insulin (HCC) 05/11/2016 PAST SURGICAL HISTORY Procedure Laterality Date APPENDECTOMY 02/10/1970 ARTHROSCOPY KNEE DIAGNOSTIC W/WO SYNOVIAL BX SPX 10/19/2022 rt knee artroscopic I AND D, synovectomy CAROTID ENDARTERECTOMY 06/16/2012 Right carotid COLONOSCOPY 12/12/2014 Repeat 2018 ALLERGIES Zocor [Simvastatin] MEDICATIONS Current Outpatient Medications Medication Sig [START ON 05/31/2024] zolpidem (AMBIEN) 10 mg Take 1 tablet by mouth daily at bedtime for 30 days. Patient should start on May 31, 2024. cyclobenzaprine (FLEXERIL) 5 mg tablet Take 1 tablet by mouth three times a day as needed. imipramine HCl (TOFRANIL) 50 mg tablet Take 3 tablets by mouth daily at bedtime. tirzepatide (MOUNJARO) 2.5 mg/0.5 mL pen injector Inject 2.5 mg subcutaneously one time a week. thiothixene (NAVANE) 1 mg capsule Take 2 capsules by mouth two times a day. tiotropium bromide (SPIRIVA RESPIMAT) 2.5 mcg/actuation inhaler Inhale 2 Puffs as instructed once daily. fluticasone-salmeterol (ADVAIR DISKUS) 250-50 mcg/dose inhaler Inhale 1 Puff as instructed two times a day. RINSE AND GARGLE MOUTH WITH WATER AFTER EACH USE. albuterol HFA (VENTOLIN HFA) 90 mcg/actuation inhaler Inhale 2 Puffs as instructed every 4 hours as needed for wheezing/shortness of breath. lisinopril (ZESTRIL) 5 mg tablet Take 1 tablet by mouth once daily. metFORMIN (GLUCOPHAGE) 500 mg tablet Take 1 tablet by mouth daily with dinner. atorvastatin (LIPITOR) 20 mg tablet Take 1 tablet by mouth once daily. blood sugar diagnostic (BLOOD GLUCOSE TEST) test strip Test blood sugar(s) 1 times daily. Dx: Type 2 DM - Controlled E11.9 Insulin: No ibuprofen (MOTRIN) 800 mg tablet Take 1 tablet by mouth every 8 hours as needed for pain. Take with food. ondansetron orally disintegrating (ZOFRAN ODT) 4 mg disintegrating tablet Take 1 tablet by mouth every 8 hours as needed for nausea/vomiting. Lancets lancets Test blood sugar(s) 1 times daily. Dx: Type 2 DM - Controlled E11.9 Insulin: No polyethylene glycol 3350 (MIRALAX, GLYCOLAX) 17 gram/dose powder Use as directed for Miralax / Gatorade Bowel Prep Kit (Patient not taking: Reported on 05/02/2024) Melatonin 5 mg cap Take 1 capsule by mouth once daily. Aspirin 81 mg tab Take 1 tablet by mouth once daily. Take with food. No current facility-administered medications for this visit. FAMILY HISTORY Problem Relation Age of Onset Heart Mother Diabetes Father other (Parkinson's disease [Other]) Brother Social History Tobacco Use Smoking status: Every Day Current packs/day: 1.00 Average packs/day: 1 pack/day for 49.3 years (49.3 ttl pk-yrs) Types: Cigarettes Start date: 02/10/1975 Smokeless tobacco: Never Vaping Use Vaping status: Never Used Substance Use Topics Alcohol use: Not Currently Comment: quit 04/18 Drug use: No EXAM: BP 114/80 Pulse 75 Resp 16 Wt 71.2 kg (157 lb) LMP 11/13/2009 SpO2 91% BMI 28.26 kg/m? PHYSICAL EXAM: General Appearance: Well ap (more content not included)...[facility]04-15-2025 History of Present illness Narrative* Lulu Swanson APRN.[employer] - 05/25/2024 6:31 PM EDT This is a 63 year old female who presents today with: David is a 63-year-old female with a history of type 2 diabetes mellitus, anxiety, depression, and hyperlipidemia, presenting for management of diabetes and weight loss. HISTORY OF PRESENT ILLNESS: Type 2 Diabetes Mellitus: - Currently taking metformin 500 mg daily; no side effects reported. - Last labs were in August of the previous year. - Interested in starting a GLP-1 receptor agonist for glycemic control and weight loss. - Denies history of pancreatitis or thyroid cancer. Weight Gain: - Current weight: 157 lbs. - Expresses concern about weight gain and desires weight loss. Anxiety and Depression: Stable on current regimen. Hyperlipidemia: - Tolerating current medication well. Dyspnea: - Scheduled for a breathing testing to assess the need for nocturnal oxygen therapy. - No chest pain, dizziness, or syncope reported. Insomnia: - Currently taking Ambien; effective with no side effects. - Experiences insomnia if Ambien is not taken. Tox screen is up to date. PAST MEDICAL HISTORY: PAST MEDICAL HISTORY Diagnosis Date Arrhythmia Bradycardia Diabetes mellitus with peripheral artery disease (HCC) 03/06/2015 H/O percutaneous left heart catheterization 05/2012 negative--[facility] History of rectal polypectomy 09/23/201712/2014: hyperplastic polyp Hyperlipidemia LDL goal < 100 01/25/2013 Hypertension Major depressive disorder, recurrent episode, unspecified Non-alcoholic fatty liver disease 10/13/2014 Other and unspecified hyperlipidemia Peripheral arterial disease 03/06/2015 Recurrent major depressive disorder, in full remission 03/10/2017 Snoring Type 2 diabetes mellitus with stage 3 chronic kidney disease, without long-term current use of insulin (HCC) 05/11/2016 PAST SURGICAL HISTORY Procedure Laterality Date APPENDECTOMY 02/10/1970 ARTHROSCOPY KNEE DIAGNOSTIC W/WO SYNOVIAL BX SPX 10/19/2022 rt knee artroscopic I & D, synovectomy CAROTID ENDARTERECTOMY 06/16/2012 Right carotid COLONOSCOPY 12/12/2014 Repeat 2018 ALLERGIES Zocor [Simvastatin] MEDICATIONS Current Outpatient Medications Medication Sig [START ON 05/31/2024] zolpidem (AMBIEN) 10 mg Take 1 tablet by mouth daily at bedtime for 30 days. Patient should start on May 31, 2024. cyclobenzaprine (FLEXERIL) 5 mg tablet Take 1 tablet by mouth three times a day as needed. imipramine HCl (TOFRANIL) 50 mg tablet Take 3 tablets by mouth daily at bedtime. tirzepatide (MOUNJARO) 2.5 mg/0.5 mL pen injector Inject 2.5 mg subcutaneously one time a week. thiothixene (NAVANE) 1 mg capsule Take 2 capsules by mouth two times a day. tiotropium bromide (SPIRIVA RESPIMAT) 2.5 mcg/actuation inhaler Inhale 2 Puffs as instructed once daily. fluticasone-salmeterol (ADVAIR DISKUS) 250-50 mcg/dose inhaler Inhale 1 Puff as instructed two times a day. RINSE AND GARGLE MOUTH WITH WATER AFTER EACH USE. albuterol HFA (VENTOLIN HFA) 90 mcg/actuation inhaler Inhale 2 Puffs as instructed every 4 hours asneeded for wheezing/shortness of breath. lisinopril (ZESTRIL) 5 mg tablet Take 1 tablet by mouth once daily. metFORMIN (GLUCOPHAGE) 500 mg tablet Take 1 tablet by mouth daily with dinner. atorvastatin (LIPITOR) 20 mg tablet Take 1 tablet by mouth once daily. blood sugar diagnostic (BLOOD GLUCOSE TEST) test strip Test blood sugar(s) 1 times daily. Dx: Type 2 DM - Controlled E11.9 Insulin: No ibuprofen (MOTRIN) 800 mg tablet Take 1 tablet by mouth every 8 hours as needed for pain. Take withfood. ondansetron orally disintegrating (ZOFRAN ODT) 4 mg disintegrating tablet Take 1 tablet by mouth every 8 hours as needed for nausea/vomiting. Lancets lancets Test blood sugar(s) 1 times daily. Dx: Type 2 DM - Controlled E11.9 Insulin: No polyethylene glycol 3350 (MIRALAX, GLYCOLAX) 17 gram/dose powder Use as directed for Miralax / Gatorade Bowel Prep Kit (Patient not taking: Reported on 05/02/2024) Melatonin 5 mg cap Take 1 capsule by mouth once daily. Aspirin 81 mg tab Take 1 tablet by mouth once daily. Take with food. No current facility-administered medications for this visit. FAMILY HISTORY Problem Relation Age of Onset Heart Mother Diabetes Father other (Parkinson's disease [Other]) Brother Social History Tobacco Use Smoking status: Every Day Current packs/day: 1.00 Average packs/day: 1 pack/day for 49.3 years (49.3 ttl pk-yrs) Types: Cigarettes Start date: 02/10/1975 Smokeless tobacco: Never Vaping Use Vaping status: Never Used Substance Use Topics Alcohol use: Not Currently Comment: quit 04/18 Drug use: No EXAM: BP 114/80 Pulse 75 Resp 16 Wt 71.2 kg (157 lb) LMP 11/13/2009 SpO2 91% BMI 28.26 kg/m PHYSICAL EXAM: General Appearance: Well appearing, alert, in no acute distress, well-hydrated, well nourished.. Skin: Skin color, texture, turgor normal, no suspicious rashes or lesions. Head: Normocephalic, no masses, lesions, tenderness or abnormalities. Eyes: Anicteric sclera. Extraocular movements are intact. . Lungs: Lungs clear to auscultation. No wheezing, rhonchi, rales.. Heart: RRR without murmur, gallop, or rubs. No ectopy. Extremities: No deformities, edema, skin discoloration, clubbing or cyanosis. Good capillary refill. . ASSESSMENT/PLAN 1. Controlled type 2 diabetes mellitus without complication, without long-term current use of insulin (HCC) (E11.9) - Currently managed with Metformin 500 mg daily; no reported side effects. - Discussed initiating Mounjaro for better glycemic control and weight loss; informed patient aboutthe need for insurance prior authorization. - Ordered updated labs, including HbA1c, to support prior authorization process. - Will reassess Metformin use based on HbA1c results. - Follow-up in one month after starting Mounjaro to evaluate tolerance and consider dose escalation. 2. Chronic insomnia (F51.04) - Managed with Ambien; patient reports effective symptom control. - Refilled prescription. 3. Left sided sciatica (M54.32) - Refilled muscle relaxer prescription. 4. Recurrent major depressive disorder, in full remission (F33.42) - Mood reported as stable. 5. Hyperlipidemia, unspecified hyperlipidemia type (E78.5) - Tolerating current medication regimen well. 6. Primary hypertension (I10) - Blood pressure well-controlled. Discussed treatment plan and patient voices understanding. Patient's questions answered appropriately. Medications and potential side effects were discussed and patient voices understanding. Return to the office as scheduled or as needed for worsening/no improvement. Lulu Swanson APRN.CNP Recording using [employer] software for draft documentation of the visit was discussed with the patient/authorized personal service representative; all questions welcomed and answered. Patient/authorized personal service representative agreed to proceed documented [facility] this encounter[facility] Instructions* Patient Instructions* Lulu Swanson APRN.CNP - 05/25/2024 10:54 AM EDT Continue taking your metformin 500 mg daily until we review your upcoming lab results. A prescription for Mounjaro (a once-a-week shot for blood sugar control and weight loss) has been sent in, pending insurance prior authorization. A follow- up appointment is planned in one month to review how you tolerate it and to consider increasing the dose if needed. Refills have been ordered for your Ambien, muscle relaxer, and the three little green pills; these will be sent to [facility]. You have new lab orders to update your numbers, including your A1c; please complete these labs as soon as possible. Please schedule your overdue mammogram using the order provided. Arrange to have an ultrasound of the carotid arteries as ordered. documented in this encounter[facility]03-[facility]25 Instructions* Patient Instructions* Rianna Wilkerson APRN.CNP - 05/02/2024 11:14 AM EDT ASSESSMENT/PLAN: 1. Left sided sciatica - ICD9: 724.3, ICD10: M54.32 (primary diagnosis) - Ice for localized tenderness-avoid heat - Prednisone taper- see orders - continue to take muscle relaxant-this medication can cause drowsiness. - PREDNISONE 10 MG TABLET - do not take advil while taking steroid. Tylenol is OK. 2. Acute left-sided low back pain with left-sided sciatica - ICD9: 724.2, 724.3, ICD10: M54.42 - PREDNISONE 10 MG TABLET - Follow-up with your PCP in 3-5 days if symptoms have not improved or sooner if symptoms worsen - Discussed red flags and need for immediate medical evaluation if any occur. - Discussed supportive care treatment with fluids, rest and analgesia. - Discussed expected course of illness Rianna Wilkerson APRN.CANDACE SCIATICA: Your exam shows you have sciatica, a condition most often seen in patients with disc disease of thelower back. Sciatica causes pain to radiate from the lower back or buttock area down the leg. It results from pressure on nerve roots coming out of the spine when a disc deteriorates and pushes to one side. Often there is a history of back problems. In most cases sciatica improves greatly with conservative treatment. Most patients with it are completely better after 2-4 weeks of supportive care. Bed rest reduces the disc pressure greatly; sitting is the worst position since the pressure on the disc is over 5 times greater than it is while lying down. You should avoid bending, lifting, and all other activities which make the problem worse. After the pain improves, you may continue with normal activity, taking brief periods for bed rest throughout the day until you are back to normal. Aspirin, ibuprofen, or other anti-inflammatory drugs are often used to help control pain. Muscle relaxants may help by relieving spasm and providing mild sedation. Cold therapy and massage may also give significant relief. Spinal manipulation is not recommended because it can increase the degree ofdisc protrusion. Surgery is reserved for patients that do not improve with conservative treatment, or who have signs of severe nerve root pressure. You should see your doctor for follow up care as recommended. A program for back injury rehabilitation with stretching and strengthening exercises is an important part of management. Please call yourdoctor, a back specialist, or the emergency room right away if you notice increased pain, weakness,or numbness in your legs, or if you have any difficulty with bladder or bowel control. documented in this encounterAkron [facility]03-23-2025 NoteHNO ID: [id number] Author: RIANNA WILKERSON APRN.CNP Service: ? Author Type: Nurse Practitioner Type: Progress Notes Filed: 05/02/2024 11:22 Note Text: [facility] Subjective David Aldrich is a 63 year old female. 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 David Aldrich is a 63 year old female who presents with left sided low back pain that radiates to her left thigh. 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 She has had the pain for about a week but it has been worse in the past 24 hours. She rates pain 8/10. She has been taking advil and muscle relaxer. Review of Systems Constitutional: Negative for chills and fever. Respiratory: Negative. Cardiovascular: Negative. Genitourinary: Negative for dysuria, frequency and urgency. Musculoskeletal: Positive for back pain. Negative for myalgias. Skin: Negative for color change and rash. Objective BP 106/68 Pulse 74 Temp 36.6 ?C (97.8 ?F) Resp 24 Wt 71 kg (156 lb 8.4 oz) LMP 11/13/2009 SpO2 99% BMI 28.17 kg/m? PAST MEDICAL HISTORY Diagnosis Date - Arrhythmia Bradycardia - Diabetes mellitus with peripheral artery disease (HCC) 03/06/2015 - H/O percutaneous left heart catheterization 05/2012 negative--[facility] - History of rectal polypectomy 09/23/201712/2014: hyperplastic polyp - Hyperlipidemia LDL goal < 100 01/25/2013 - Hypertension - Major depressive disorder, recurrent episode, unspecified - Non-alcoholic fatty liver disease 10/13/2014 - Other and unspecified hyperlipidemia - Peripheral arterial disease (HCC) 03/06/2015 - Recurrent major depressive disorder, in full remission (HCC) 03/10/2017 - Snoring - Type 2 diabetes mellitus with stage 3 chronic kidney disease, without long-term current use of insulin (HCC) 05/11/2016 PAST SURGICAL HISTORY Procedure Laterality Date - APPENDECTOMY 02/10/1970 - ARTHROSCOPY KNEE DIAGNOSTIC W/WO SYNOVIAL BX SPX 10/19/2022 rt knee artroscopic I AND D, synovectomy - CAROTID ENDARTERECTOMY 06/16/2012 Right carotid - COLONOSCOPY 12/12/2014 Repeat 2018 ALLERGIES Zocor [Simvastatin] MEDICATIONS - zolpidem (AMBIEN) 10 mg Take 1 tablet by mouth daily at bedtime for 30 days. - cyclobenzaprine (FLEXERIL) 5 mg tablet Take 1 tablet by mouth three times a day as needed. - imipramine HCl (TOFRANIL) 50 mg tablet Take 3 tablets by mouth daily at bedtime. - thiothixene (NAVANE) 1 mg capsule Take 2 capsules by mouth two times a day. - tiotropium bromide (SPIRIVA RESPIMAT) 2.5 mcg/actuation inhaler Inhale 2 Puffs as instructed once daily. - fluticasone-salmeterol (ADVAIR DISKUS) 250-50 mcg/dose inhaler Inhale 1 Puff as instructed two times a day. RINSE AND GARGLE MOUTH WITH WATER AFTER EACH USE. - albuterol HFA (VENTOLIN HFA) 90 mcg/actuation inhaler Inhale 2 Puffs as instructed every 4 hours as needed for wheezing/shortness of breath. - lisinopril (ZESTRIL) 5 mg tablet Take 1 tablet by mouth once daily. - metFORMIN (GLUCOPHAGE) 500 mg tablet Take 1 tablet by mouth daily with dinner. - atorvastatin (LIPITOR) 20 mg tablet Take 1 tablet by mouth once daily. - blood sugar diagnostic (BLOOD GLUCOSE TEST) test strip Test blood sugar(s) 1 times daily. Dx: Type 2 DM - Controlled E11.9 Insulin: No - ibuprofen (MOTRIN) 800 mg tablet Take 1 tablet by mouth every 8 hours as needed for pain. Take with food. - buPROPion SR (WELLBUTRIN SR) 150 mg 12 hr tablet One pill by mouth once daily X 3 days, then increase to twice daily. Take second dose before 6PM. Try to stop smoking on day 5-7. - ondansetron orally disintegrating (ZOFRAN ODT) 4 mg disintegrating tablet Take 1 tablet by mouth every 8 hours as needed for nausea/vomiting. - Lancets lancets Test blood sugar(s) 1 times daily. Dx: Type 2 DM - Controlled E11.9 Insulin: No - busPIRone (BUSPAR) 5 mg tablet Take 1 tablet by mouth three times daily as needed. - Melatonin 5 mg cap Take 1 capsule by mouth once daily. - Aspirin 81 mg tab Take 1 tablet by mouth once daily. Take with food. - predniSONE (DELTASONE) 10 mg tablet Take 4 tabs daily for 3 days, then 2 tabs daily for 3 days, then 1 tab daily for 3 days with food. - omeprazole (PRILOSEC) 20 mg capsule Take 1 capsule by mouth daily before breakfast. 1/2 hr before meal. (Patient not taking: Reported on 02/09/2024) - polyethylene glycol 3350 (MIRALAX, GLYCOLAX) 17 gram/dose powder Use as directed for Miralax / Gatorade Bowel Prep Kit (Patient not taking: Reported on 05/02/2024) - Gatorade Sports Drink Use as directed for Miralax / Gatorade Bowel Prep Kit (Patient not taking: Reported on 05/02/2024) - Bisacodyl (DULCOLAX) 5 mg tab Use as directed for Miralax / Gatorade Bowel Prep Kit (Patient not taking: Reported on 05/02/2024) FAMILY HISTORY Problem Relation Age of Onse (more content not included)...[facility]03-[facility] History of Present illness Narrative* Rianna Wilkerson, TYLER.[employer] - 05/02/2024 11:12 AM EDT [facility] Subjective David Aldrich is a 63 year old female. 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 David Aldrich is a 63 year old female who presents with left sided low back pain that radiates to her left thigh. 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 She has had the pain for about a week but it has been worse in the past 24 hours. She rates pain 8/10. She has been taking advil and muscle relaxer. Review of Systems Constitutional: Negative for chills and fever. Respiratory: Negative. Cardiovascular: Negative. Genitourinary: Negative for dysuria, frequency and urgency. Musculoskeletal: Positive for back pain. Negative for myalgias. Skin: Negative for color change and rash. Objective BP 106/68 Pulse 74 Temp 36.6 C (97.8 F) Resp 24 Wt 71 kg (156 lb 8.4 oz) LMP 11/13/2009 SpO2 99% BMI 28.17 kg/m PAST MEDICAL HISTORY Diagnosis Date Arrhythmia Bradycardia Diabetes mellitus with peripheral artery disease (HCC) 03/06/2015 H/O percutaneous left heart catheterization 05/2012 negative--[facility] History of rectal polypectomy 09/23/201712/2014: hyperplastic polyp Hyperlipidemia LDL goal < 100 01/25/2013 Hypertension Major depressive disorder, recurrent episode, unspecified Non-alcoholic fatty liver disease 10/13/2014 Other and unspecified hyperlipidemia Peripheral arterial disease (HCC) 03/06/2015 Recurrent major depressive disorder, in full remission (HCC) 03/10/2017 Snoring Type 2 diabetes mellitus with stage 3 chronic kidney disease, without long-term current use of insulin (HCC) 05/11/2016 PAST SURGICAL HISTORY Procedure Laterality Date APPENDECTOMY 02/10/1970 ARTHROSCOPY KNEE DIAGNOSTIC W/WO SYNOVIAL BX SPX 10/19/2022 rt knee artroscopic I & D, synovectomy CAROTID ENDARTERECTOMY 06/16/2012 Right carotid COLONOSCOPY 12/12/2014 Repeat 2018 ALLERGIES Zocor [Simvastatin] MEDICATIONS zolpidem (AMBIEN) 10 mg Take 1 tablet by mouth daily at bedtime for 30 days. cyclobenzaprine (FLEXERIL) 5 mg tablet Take 1 tablet by mouth three times a day as needed. imipramine HCl (TOFRANIL) 50 mg tablet Take 3 tablets by mouth daily at bedtime. thiothixene (NAVANE) 1 mg capsule Take 2 capsules by mouth two times a day. tiotropium bromide (SPIRIVA RESPIMAT) 2.5 mcg/actuation inhaler Inhale 2 Puffs as instructed once daily. fluticasone-salmeterol (ADVAIR DISKUS) 250-50 mcg/dose inhaler Inhale 1 Puff as instructed two times a day. RINSE AND GARGLE MOUTH WITH WATER AFTER EACH USE. albuterol HFA (VENTOLIN HFA) 90 mcg/actuation inhaler Inhale 2 Puffs as instructed every 4 hours asneeded for wheezing/shortness of breath. lisinopril (ZESTRIL) 5 mg tablet Take 1 tablet by mouth once daily. metFORMIN (GLUCOPHAGE) 500 mg tablet Take 1 tablet by mouth daily with dinner. atorvastatin (LIPITOR) 20 mg tablet Take 1 tablet by mouth once daily. blood sugar diagnostic (BLOOD GLUCOSE TEST) test strip Test blood sugar(s) 1 times daily. Dx: Type 2 DM - Controlled E11.9 Insulin: No ibuprofen (MOTRIN) 800 mg tablet Take 1 tablet by mouth every 8 hours as needed for pain. Take withfood. buPROPion SR (WELLBUTRIN SR) 150 mg 12 hr tablet One pill by mouth once daily X 3 days, then increase to twice daily. Take second dose before 6PM. Try to stop smoking on day 5-7. ondansetron orally disintegrating (ZOFRAN ODT) 4 mg disintegrating tablet Take 1 tablet by mouth every 8 hours as needed for nausea/vomiting. Lancets lancets Test blood sugar(s) 1 times daily. Dx: Type 2 DM - Controlled E11.9 Insulin: No busPIRone (BUSPAR) 5 mg tablet Take 1 tablet by mouth three times daily as needed. Melatonin 5 mg cap Take 1 capsule by mouth once daily. Aspirin 81 mg tab Take 1 tablet by mouth once daily. Take with food. predniSONE (DELTASONE) 10 mg tablet Take 4 tabs daily for 3 days, then 2 tabs daily for 3 days, then 1 tab daily for 3 days with food. omeprazole (PRILOSEC) 20 mg capsule Take 1 capsule by mouth daily before breakfast. 1/2 hr before meal. (Patient not taking: Reported on 02/09/2024) polyethylene glycol 3350 (MIRALAX, GLYCOLAX) 17 gram/dose powder Use as directed for Miralax / Gatorade Bowel Prep Kit (Patient not taking: Reported on 05/02/2024) Gatorade Sports Drink Use as directed for Miralax / Gatorade Bowel Prep Kit (Patient not taking: Reported on 05/02/2024) Bisacodyl (DULCOLAX) 5 mg tab Use as directed for Miralax / Gatorade Bowel Prep Kit (Patient not taking: Reported on 05/02/2024) FAMILY HISTORY Problem Relation Age of Onset Heart Mother Diabetes Father other (Parkinson's disease [Other]) Brother Social History Tobacco Use Smoking status: Every Day Current packs/day: 1.00 Average packs/day: 1 pack/day for 49.2 years (49.2 ttl pk-yrs) Types: Cigarettes Start date: 02/10/1975 Smokeless tobacco: Never Vaping Use Vaping status: Never Used Substance Use Topics Alcohol use: Not Currently Comment: quit 04/18 Drug use: No Physical Exam Vitals and nursing note reviewed. Constitutional: Appearance: Normal appearance. Cardiovascular: Rate and Rhythm: Normal rate. Pulmonary: Effort: Pulmonary effort is normal. Musculoskeletal: Lumbar back: Tenderness (SI notch) present. No swelling, deformity, signs of trauma or bony tenderness. Positive left straight leg raise test. Negative right straight leg raise test. Skin: General: Skin is warm and dry. Findings: No bruising, erythema or rash. Neurological: Mental Status: She is alert and oriented to person, place, and time. Sensory: Sensation is intact. No sensory deficit. Motor: No weakness. Gait: Gait normal. {ASSESSMENT/PLAN: 1. Left sided sciatica - ICD9: 724.3, ICD10: M54.32 (primary diagnosis) - Ice for localized tenderness-avoid heat - Prednisone taper- see orders - continue to take muscle relaxant-this medication can cause drowsiness. - PREDNISONE 10 MG TABLET - do not take advil while taking steroid. Tylenol is OK. 2. Acute left-sided low back pain with left-sided sciatica - ICD9: 724.2, 724.3, ICD10: M54.42 - PREDNISONE 10 MG TABLET - Follow-up with your PCP in 3-5 days if symptoms have not improved or sooner if symptoms worsen - Discussed red flags and need for immediate medical evaluation if any occur. - Discussed supportive care treatment with fluids, rest and analgesia. - Discussed expected course of illness Rianna Wilkerson APRN.[employer] Disposition The patient was discharged. OTC Medications were advised: tylenol Procedures [facility] Telephone encounter Note * Telephone Encounter - Kell Suarez 04/27/2024 10:40 AM EDT Prescription Refill Information The patient has been identified by name and date of : Yes Caregiver verified no other encounters exist for this prescription request: Yes Caregiver confirmed with patient/requestor that no other refills are due, in the near future, with this provider at this time: Yes The last office visit in the department: 01/13/24 Does the patient have a future office visit with this provider/department: No Requested Prescriptions Pending Prescriptions Disp Refills zolpidem (AMBIEN) 10 mg 30 tablet 0 Sig: Take 1 tablet by mouth daily at bedtime for 30 days. cyclobenzaprine (FLEXERIL) 5 mg tablet 90 tablet 0 Sig: Take 1 tablet by mouth three times a day as needed. Kell Suarez April 27, 2024 10:41 AM [facility]03-18-2025 Miscellaneous Notes* Telephone Encounter - Kell Suarez - 04/27/2024 10:40 AM EDT Prescription Refill Information The patient has been identified by name and date of : Yes Caregiver verified no other encounters exist for this prescription request: Yes Caregiver confirmed with patient/requestor that no other refills are due, in the near future, with this provider at this time: Yes The last office visit in the department: 01/13/24 Does the patient have a future office visit with this provider/department: No Requested Prescriptions Pending Prescriptions Disp Refills zolpidem (AMBIEN) 10 mg 30 tablet 0 Sig: Take 1 tablet by mouth daily at bedtime for 30 days. cyclobenzaprine (FLEXERIL) 5 mg tablet 90 tablet 0 Sig: Take 1 tablet by mouth three times a day as needed. Kell Suarez April 27, 2024 10:41 AM documented in this encounterAkron [facility]02-28-[facility]25 Telephone encounter Note * Telephone Encounter - Lavon Terry LPN - 04/09/2024 4:16 PM EST Pt notified. Lavon Terry LPN [facility] Miscellaneous Notes* Telephone Encounter - Lavon Terry LPN - 04/09/2024 4:16 PM EST Pt notified. Lavon Terry LPN * Telephone Encounter - Lulu Swanson APRN.[employer] - 04/09/2024 3:58 PM EST I would say that she needs to contact cardiology. It looks like she saw [facility] on 03/26.It looks like if she was still having symptoms, they were going to do a nuclear stress test. * Telephone Encounter - Lavon Terry LPN - 04/09/2024 10:55 AM EST Pt saw [facility] on 03/26/24. Office note printed and given to provider for review. Lavon Terry LPN * Telephone Encounter - Mi Espinoza RN - 04/09/2024 8:51 AM EST Patient calls to let provider know that she was seeing [facility] for her "heart blockage"and it isn't going well. She reports that she is supposed to be having some testing completed but it isn't getting done. Patient isn't sure what the testing is but reports they are fighting with her insurance company. Recommended she contact [facility] to discuss concerns. Patient reports that her employer told her she had to notify Lulu. Again recommended she contact [facility] that is ordering testing as they would have updates from the insurance company. Patient reports she has no further follow up scheduled with [facility]. Noted patient is scheduled to see Dr. Doyle 05/17/[address] Diaz 11/08/2024. Patient reports she needs to know from Lulu what to do from here. Mi Espinoza RN documented in this encounterAkron [facility]02-28-2025 Telephone encounter Note * Telephone Encounter - Lulu Swanson APRN.CANDACE - 04/09/2024 3:58 PM EST I would say that she needs to contact cardiology. It looks like she saw [facility] on 03/26.It looks like if she was still having symptoms, they were going to do a nuclear stress test. [facility] Telephone encounter Note* Telephone Encounter - Lavon Terry LPN - 04/09/2024 10:55 AM EST Pt saw [facility] on 03/26/24. Office note printed and given to provider for review. Lavon Terry LPN [facility] Telephone encounter Note* Telephone Encounter - Mi Espinoza RN - 04/09/2024 8:51 AM EST Patient calls to let provider know that she was seeing [facility] for her "heart blockage"and it isn't going well. She reports that she is supposed to be having some testing completed but it isn't getting done. Patient isn't sure what the testing is but reports they are fighting with her insurance company. Recommended she contact [facility] to discuss concerns. Patient reports that her employer told her she had to notify Lulu. Again recommended she contact [facility] that is ordering testing as they would have updates from the insurance company. Patient reports she has no further follow up scheduled with [facility]. Noted patient is scheduled to see Dr. Doyle 05/17/[address] Diaz 11/08/2024. Patient reports she needs to know from [facility] what to do from here. Mi Espinoza RN [facility]02-[facility] Telephone encounter Note* Telephone Encounter - Elaine Machcua RN - 04/07/2024 8:50 AM EST Patient calls and states that she has a tooth ache and is asking if PCP can prescribe her penicillin for this. Advised patient that she needs to contact dentist for this and for provider to be able to prescribed antibiotic patient would have to be seen in office for this. Patient voiced understanding. Elaine Machuca RN [facility]02-[facility] Miscellaneous Notes* Telephone Encounter - Elaine Machuca RN - 04/07/2024 8:50 AM EST Patient calls and states that she has a tooth ache and is asking if PCP can prescribe her penicillin for this. Advised patient that she needs to contact dentist for this and for provider to be able to prescribed antibiotic patient would have to be seen in office for this. Patient voiced understanding. Elaine Machuca RN documented in this encounterAkron Children'[facility]02-25-2025 NotePatient Outreach (FAMPWS) DAVID ALDRICH ([id number]) 1960 F NFR Date Time Provider Department 04/06/24 LULU SWANSON During your visit today, we recorded the following information about you: Allergies As of Date: 04/06/2024 Noted Allergy Reaction ZOCOR (SIMVASTATIN) 04/24/2013 17 - Myalgia Date Reviewed: 02/09/2024 Reviewed by: Dipesh Leong MD - Fully Assessed Visit Diagnosis:Encounter for screening mammogram for breast cancer [Z12.31] Order(s):[facility] SCRE[facility] [[id number]] Order #: [id number] FUTURE Prescriptions as of 05/07/2024 - predniSONE (DELTASONE) 10 mg tablet Take 4 tabs daily for 3 days, then 2 tabs daily for 3 days, then 1 tab daily for 3 days with food. - zolpidem (AMBIEN) 10 mg Take 1 tablet by mouth daily at bedtime for 30 days. - cyclobenzaprine (FLEXERIL) 5 mg tablet Take 1 tablet by mouth three times a day as needed. - imipramine HCl (TOFRANIL) 50 mg tablet Take 3 tablets by mouth daily at bedtime. - thiothixene (NAVANE) 1 mg capsule Take 2 capsules by mouth two times a day. - tiotropium bromide (SPIRIVA RESPIMAT) 2.5 mcg/actuation inhaler Inhale 2 Puffs as instructed once daily. - fluticasone-salmeterol (ADVAIR DISKUS) 250-50 mcg/dose inhaler Inhale 1 Puff as instructed two times a day. RINSE AND GARGLE MOUTH WITH WATER AFTER EACH USE. - albuterol HFA (VENTOLIN HFA) 90 mcg/actuation inhaler Inhale 2 Puffs as instructed every 4 hours as needed for wheezing/shortness of breath. - lisinopril (ZESTRIL) 5 mg tablet Take 1 tablet by mouth once daily. - metFORMIN (GLUCOPHAGE) 500 mg tablet Take 1 tablet by mouth daily with dinner. - atorvastatin (LIPITOR) 20 mg tablet Take 1 tablet by mouth once daily. - blood sugar diagnostic (BLOOD GLUCOSE TEST) test strip Test blood sugar(s) 1 times daily. Dx: Type 2 DM - Controlled E11.9 Insulin: No - ibuprofen (MOTRIN) 800 mg tablet Take 1 tablet by mouth every 8 hours as needed for pain. Take with food. - buPROPion SR (WELLBUTRIN SR) 150 mg 12 hr tablet One pill by mouth once daily X 3 days, then increase to twice daily. Take second dose before 6PM. Try to stop smoking on day 5-7. - ondansetron orally disintegrating (ZOFRAN ODT) 4 mg disintegrating tablet Take 1 tablet by mouth every 8 hours as needed for nausea/vomiting. - omeprazole (PRILOSEC) 20 mg capsule Take 1 capsule by mouth daily before breakfast. 1/2 hr before meal. - Lancets lancets Test blood sugar(s) 1 times daily. Dx: Type 2 DM - Controlled E11.9 Insulin: No - polyethylene glycol 3350 (MIRALAX, GLYCOLAX) 17 gram/dose powder Use as directed for Miralax / Gatorade Bowel Prep Kit - Gatorade Sports Drink Use as directed for Miralax / Gatorade Bowel Prep Kit - Bisacodyl (DULCOLAX) 5 mg tab Use as directed for Miralax / Gatorade Bowel Prep Kit - busPIRone (BUSPAR) 5 mg tablet Take 1 tablet by mouth three times daily as needed. - Melatonin 5 mg cap Take 1 capsule by mouth once daily. - Aspirin 81 mg tab Take 1 tablet by mouth once daily. Take with food. Problem List As Of Date 04/06/2024 Noted Resolved Severe major depression with psychotic features*03/11/2005 03/10/2017 Other and unspecified hyperlipidemia [E78.5] 06/30/2006 01/25/2013 Tobacco abuse [Z72.0] 12/20/2010 Hyperlipidemia with target LDL less than 100 [E*01/25/2013 Non-alcoholic fatty liver disease [K76.0] 10/13/2014 Peripheral arterial disease (HCC) [I73.9] 03/06/2015 Diabetes mellitus with peripheral artery diseas*03/06/2015 Hyponatremia [E87.1] 03/17/2015 Controlled type 2 diabetes mellitus without com*05/11/2016 Chronic insomnia [F51.04] 02/11/2017 Recurrent major depressive disorder, in full re*03/10/2017 History of rectal polypectomy [Z98.890, Z87.19] 09/23/2017 Change in bowel habit [R19.4] 09/24/2017 Abdominal pain [R10.9] 09/24/2017 03/09/2018 Mucopurulent chronic bronchitis (HCC) [J41.1] 05/05/2018 Shoulder impingement syndrome, right [M75.41] 10/20/2018 Situational anxiety [F41.8] 10/20/2018 Left sided sciatica [M54.32] 12/24/2018 Cheek mass [R22.0] 12/24/2018 Premature atrial contraction [I49.1] 03/30/2019 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 Lulu Swanson APRN.CNP [facility] Miscellaneous Notes* Telephone Encounter - Lulu Swanson APRN.CNP - 04/02/2024 4:54 PM EST Scripts sent. Lulu Swanson APRN.CNP * Telephone Encounter - Helen Lema RN - 03/31/2024 2:42 PM EST The patient has been identified by name and date of : Yes Caregiver verified no other encounters exist for this prescription request: Yes Caregiver confirmed with patient/requestor that no other refills are due, in the near future, with this provider at this time: Yes The last office visit in the department: 02/02/2024 Does the patient have a future office visit with this provider/department: No Visit date not found Requested Prescriptions Pending Prescriptions Disp Refills cyclobenzaprine (FLEXERIL) 5 mg tablet 90 tablet 0 Sig: Take 1 tablet by mouth three times a day as needed. zolpidem (AMBIEN) 10 mg 30 tablet 0 Sig: Take 1 tablet by mouth daily at bedtime for 30 days. Helen Lema RN March 31, 2024 2:43 PM documented in this encounterAkron [facility]02-19-2025 Telephone encounter Note * Telephone Encounter - Helen Lema RN - 03/31/2024 2:42 PM EST The patient has been identified by name and date of : Yes Caregiver verified no other encounters exist for this prescription request: Yes Caregiver confirmed with patient/requestor that no other refills are due, in the near future, with this provider at this time: Yes The last office visit in the department: 02/02/2024 Does the patient have a future office visit with this provider/department: No Visit date not found Requested Prescriptions Pending Prescriptions Disp Refills cyclobenzaprine (FLEXERIL) 5 mg tablet 90 tablet 0 Sig: Take 1 tablet by mouth three times a day as needed. zolpidem (AMBIEN) 10 mg 30 tablet 0 Sig: Take 1 tablet by mouth daily at bedtime for 30 days. Helen Lema RN March 31, 2024 2:43 PM [facility] Telephone encounter Note* Telephone Encounter - Paulina Marino - 03/05/2024 10:54 AM EST Prescription Refill Information The patient has been identified by name and date of : Yes Caregiver verified no other encounters exist for this prescription request: Yes Caregiver confirmed with patient/requestor that no other refills are due, in the near future, with this provider at this time: Yes The last office visit in the department: 02-02-24 Does the patient have a future office visit with this provider/department: Yes Requested Prescriptions Pending Prescriptions Disp Refills imipramine HCl (TOFRANIL) 50 mg tablet 270 tablet 0 Sig: Take 3 tablets by mouth daily at bedtime. Paulina Mitchell March 05, 2024 10:54 AM [facility] Miscellaneous Notes* Telephone Encounter - Paulina Marino - 03/05/2024 10:54 AM EST Prescription Refill Information The patient has been identified by name and date of : Yes Caregiver verified no other encounters exist for this prescription request: Yes Caregiver confirmed with patient/requestor that no other refills are due, in the near future, with this provider at this time: Yes The last office visit in the department: 02-02-24 Does the patient have a future office visit with this provider/department: Yes Requested Prescriptions Pending Prescriptions Disp Refills imipramine HCl (TOFRANIL) 50 mg tablet 270 tablet 0 Sig: Take 3 tablets by mouth daily at bedtime. Paulina Mitchell March 05, 2024 10:54 AM documented in this encounterAkron [facility]01-24-2025 Telephone encounter Note * Telephone Encounter - Vy Aguirre - 03/05/2024 10:37 AM EST Prescription Refill Information The patient has been identified by name and date of : Yes Caregiver verified no other encounters exist for this prescription request: Yes Caregiver confirmed with patient/requestor that no other refills are due, in the near future, with this provider at this time: Yes The last office visit in the department: 02-02-24 Does the patient have a future office visit with this provider/department: Yes Requested Prescriptions Pending Prescriptions Disp Refills zolpidem (AMBIEN) 10 mg 30 tablet 0 Sig: Take 1 tablet by mouth daily at bedtime for 30 days. cyclobenzaprine (FLEXERIL) 5 mg tablet 90 tablet 0 Sig: Take 1 tablet by mouth three times a day as needed. Vy Helen Ángel [facility] March 05, 2024 10:38 AM [facility]01-[facility] Miscellaneous Notes* Telephone Encounter - Ángel MitchellEstherVy M - 03/05/2024 10:37 AM EST Prescription Refill Information The patient has been identified by name and date of : Yes Caregiver verified no other encounters exist for this prescription request: Yes Caregiver confirmed with patient/requestor that no other refills are due, in the near future, with this provider at this time: Yes The last office visit in the department: 02-02-24 Does the patient have a future office visit with this provider/department: Yes Requested Prescriptions Pending Prescriptions Disp Refills zolpidem (AMBIEN) 10 mg 30 tablet 0 Sig: Take 1 tablet by mouth daily at bedtime for 30 days. cyclobenzaprine (FLEXERIL) 5 mg tablet 90 tablet 0 Sig: Take 1 tablet by mouth three times a day as needed. Vy Neal [facility] March 05, 2024 10:38 AM documented in this encounterAkron Children'[facility]01-13-2025 Telephone encounter Note * Telephone Encounter - Cecy Garcia - 02/23/2024 9:08 AM EST Prescription Refill Information The patient has been identified by name and date of : Yes Caregiver verified no other encounters exist for this prescription request: Yes Caregiver confirmed with patient/requestor that no other refills are due, in the near future, with this provider at this time: Yes The last office visit in the department: 02/02/24 Does the patient have a future office visit with this provider/department: No Requested Prescriptions Pending Prescriptions Disp Refills thiothixene (NAVANE) 1 mg capsule 120 capsule 11 Sig: Take 2 capsules by mouth two times a day. Cecy Martinez [facility] February 23, 2024 9:10 AM [facility]01-[facility]25 Miscellaneous Notes* Telephone Encounter - Cecy Garcia - 02/23/2024 9:08 AM EST Prescription Refill Information The patient has been identified by name and date of : Yes Caregiver verified no other encounters exist for this prescription request: Yes Caregiver confirmed with patient/requestor that no other refills are due, in the near future, with this provider at this time: Yes The last office visit in the department: 02/02/24 Does the patient have a future office visit with this provider/department: No Requested Prescriptions Pending Prescriptions Disp Refills thiothixene (NAVANE) 1 mg capsule 120 capsule 11 Sig: Take 2 capsules by mouth two times a day. Cecy Martinez [facility] February 23, 2024 9:10 AM documented in this encounterAkron Children'S Hospital01-13-2025 NoteHNO ID: [id number] Author: DIPESH LEONG MD Service: ? Author Type: Physician Type: Progress Notes Filed: 02/23/2024 05:59 Note Text: Overnight oximetry: 6 hours recording time < 5 minutes with saturation less than 88%, consecutive time 28 sec[facility] History of Present illness Narrative* Dipesh Leong MD - 02/23/2024 5:56 AM EST Overnight oximetry: 6 hours recording time < 5 minutes with saturation less than 88%, consecutive time 28 sec documented in this [facility] History of Present illness Narrative* Dipesh Leong MD - 02/09/2024 11:00 AM EST Images from the original note were not included. . [facility] [place] Note Patient name: David Aldrich PCP: Lulu Swanson APRN.CANDACE Referring Physician: Adwoa De Leon CNP CC: New patient for COPD HPI: David Aldrich 63 year old female current 50 pack year smoker with PMH significant for DM, HLD, HTN, hepatic steatosis, depression recently seen in lung cancer screening clinic, being referred forevaluation of COPD. Patient is new to me. Respiratory symptoms consist of dyspnea with exertion, especially notable when climbing stairs or carrying heavy objects. She has a daily cough productive ofbrown phlegm, daily wheezing. Currently using Advair and Spiriva. Her insurance would not cover Trelegy Ellipta or Breztri. She does not have a rescue inhaler to use. She has never been able to quit smoking stating that she just had not made up her mind to do so. No history of recurrent bronchitis or pneumonia. Pulmonary function test show mild obstruction, mainly small airways obstruction that improves with bronchodilator, significant air trapping and hyperinflation, reduction in diffusing capacity. Her lung cancer screening CT shows some mild upper lobe emphysema and bronchial wall thickening. DATA: SERVICE DATE: 12/18/2023 SERVICE TIME: 1:41 PM Oral Exhaled Nitric Oxide measurement: 7.0 (ppb) PFT 12/2023: Mild obstruction, improvement in small airways postbronchodilator, air trapping and hyperinflation,reduction in diffusing capacity Labs: Component Ref Range & Units 4 mo ago (09/09/23) WBC 3.70 - 11.00 k/uL 8.01 RBC 3.90 - 5.20 m/uL 4.57 Hemoglobin 11.5 - 15.5 g/dL 14.4 Hematocrit 36.0 - 46.0 % 43.8 MCV 80.0 - 100.0 fL 95.8 MCH 26.0 - 34.0 pg 31.5 MCHC 30.5 - 36.0 g/dL 32.9 RDW-CV 11.5 - 15.0 % 13.2 Platelet Count 150 - 400 k/uL 279 MPV 9.0 - 12.7 fL 10.5 Neutrophils % % 52.2 Abs Neut 1.45 - 7.50 k/uL 4.18 Lymphocytes % % 32.8 Abs Lymph 1.00 - 4.00 k/uL 2.63 Monocytes % % 8.0 Abs Sebastian <0.87 k/uL 0.64 Eosinophils % % 5.9 Abs Eosin <0.46 k/uL 0.47 High Basophils % % 0.9 Abs Baso <0.11 k/uL 0.07 Immature Granulocytes % % 0.2 Abs Immature Gran <0.10 k/uL <0.03 NRBC /100 WBC 0.0 Absolute nRBC <0.01 k/uL <0.01 Diff Type Auto Imaging / Diagnostic Studies: DATE OF EXAM: Nov 27 2023 11:45AM [facility] 0562 - CT LUNG SCREEN WO IVCON / COMPARISON: Type of study and date/time RESULT: Clustered peribronchial branching and nodular opacity within middle lobe images 143 through 1620, and in RIGHT lower lobe 163 through 188. No dominant nodule or howard consolidation, most nodules in size range 2 to 3 mm, some confluent opacities up to 6 x 3 mm for example on image 167. Few additional scattered tiny opacities, for example within RIGHT upperlobe image 83 measuring 2 mm, and measuring 3 mm LEFT lower lobe [id number]. Other findings: Mild apical predominant emphysema. Mild LEFT atrial dilation. Mediastinal lymph nodes which are subcentimeter to borderline enlarged. Partial fatty atrophy RIGHT periscapular muscles. Degenerative changes thoracic spine. Incidental coronary calcium as automatically processed and calculatedusing AI: Total Coronary Calcium Score = [100+] Agatston Units Percentile Rank (age and gender matched relative to reference population): [75th-100th] percentile* [* https://www.bueno-[email or web address]/calcium/input.aspx] Localizer images: Mild curvature and degenerative change lumbar spine I personally reviewed the images with interpretation in HPI PAST MEDICAL HISTORY Diagnosis Date Arrhythmia Bradycardia Diabetes mellitus with peripheral artery disease (HCC) 03/06/2015 H/O percutaneous left heart catheterization 05/2012 negative[facility] History of rectal polypectomy 09/23/201712/2014: hyperplastic polyp Hyperlipidemia LDL goal < 100 01/25/2013 Hypertension Major depressive disorder, recurrent episode, unspecified Non-alcoholic fatty liver disease 10/13/2014 Other and unspecified hyperlipidemia Peripheral arterial disease (HCC) 03/06/2015 Recurrent major depressive disorder, in full remission (HCC) 03/10/2017 Snoring Type 2 diabetes mellitus with stage 3 chronic kidney disease, without long-term current use of insulin (HCC) 05/11/2016 ALLERGIES Allergen Reactions Zocor [Simvastatin] Myalgia zolpidem (AMBIEN) 10 mg Take 1 tablet by mouth daily at bedtime for 30 days. cyclobenzaprine (FLEXERIL) 5 mg tablet Take 1 tablet by mouth three times a day as needed. lisinopril (ZESTRIL) 5 mg tablet Take 1 tablet by mouth once daily. metFORMIN (GLUCOPHAGE) 500 mg tablet Take 1 tablet by mouth daily with dinner. imipramine HCl (TOFRANIL) 50 mg tablet Take 3 tablets by mouth daily at bedtime. atorvastatin (LIPITOR) 20 mg tablet Take 1 tablet by mouth once daily. blood sugar diagnostic (BLOOD GLUCOSE TEST) test strip Test blood sugar(s) 1 times daily. Dx: Type 2 DM - Controlled E11.9 Insulin: No thiothixene (NAVANE) 1 mg capsule Take 2 capsules by mouth two times a day. ibuprofen (MOTRIN) 800 mg tablet Take 1 tablet by mouth every 8 hours as needed for pain. Take withfood. buPROPion SR (WELLBUTRIN SR) 150 mg 12 hr tablet One pill by mouth once daily X 3 days, then increase to twice daily. Take second dose before 6PM. Try to stop smoking on day 5-7. ondansetron orally disintegrating (ZOFRAN ODT) 4 mg disintegrating tablet Take 1 tablet by mouth every 8 hours as needed for nausea/vomiting. Lancets lancets Test blood sugar(s) 1 times daily. Dx: Type 2 DM - Controlled E11.9 Insulin: No polyethylene glycol 3350 (MIRALAX, GLYCOLAX) 17 gram/dose powder Use as directed for Miralax / Gatorade Bowel Prep Kit Gatorade Sports Drink Use as directed for Miralax / Gatorade Bowel Prep Kit Bisacodyl (DULCOLAX) 5 mg tab Use as directed for Miralax / Gatorade Bowel Prep Kit busPIRone (BUSPAR) 5 mg tablet Take 1 tablet by mouth three times daily as needed. Melatonin 5 mg cap Take 1 capsule by mouth once daily. Aspirin 81 mg tab Take 1 tablet by mouth once daily. Take with food. tiotropium bromide (SPIRIVA RESPIMAT) 2.5 mcg/actuation inhaler Inhale 2 Puffs as instructed once daily. fluticasone-salmeterol (ADVAIR DISKUS) 250-50 mcg/dose inhaler Inhale 1 Puff as instructed two times a day. RINSE AND GARGLE MOUTH WITH WATER AFTER EACH USE. albuterol HFA (VENTOLIN HFA) 90 mcg/actuation inhaler Inhale 2 Puffs as instructed every 4 hours asneeded for wheezing/shortness of breath. omeprazole (PRILOSEC) 20 mg capsule Take 1 capsule by mouth daily before breakfast. 1/2 hr before meal. (Patient not taking: Reported on 02/09/2024) Social History Tobacco Use Smoking status: Every Day Current packs/day: 1.00 Average packs/day: 1 pack/day for 49.0 years (49.0 ttl pk-yrs) Types: Cigarettes Start date: 02/10/1975 Smokeless tobacco: Never Vaping Use Vaping status: Never Used Substance Use Topics Alcohol use: Not Currently Comment: quit 04/18 Drug use: No Works for a [employer] company Pets: Cats FAMILY HISTORY Problem Relation Age of Onset Heart Mother Diabetes Father other (Parkinson's disease [Other]) Brother PAST SURGICAL HISTORY Procedure Laterality Date APPENDECTOMY 02/10/1970 ARTHROSCOPY KNEE DIAGNOSTIC W/WO SYNOVIAL BX SPX 10/19/2022 rt knee artroscopic I & D, synovectomy CAROTID ENDARTERECTOMY 06/16/2012 Right carotid COLONOSCOPY 12/12/2014 Repeat 2018 PMH, Social history, family history and surgical history reviewed and updated in EMR REVIEW OF SYSTEMS: CONSTITUTIONAL: No fevers, chills, nightsweats, unintended weight loss HEENT: Denies nasal congestion/sinus symptoms, allergy problems. EYES: No visual changes CARDIOVASCULAR: No chest pain, palpitations, orthopnea, edema. PULM: See HPI GI: No dysphagia/odynophagia, problematic reflux MUSC-SKEL: No new joint pain, swelling, or erythema. PSY: No concerns regarding depression, anxiety INTEGUMENTARY: No new skin changes PHYSICAL EXAMINATION: BP 148/77 Pulse 106 Temp (Src) 97.3 (Temporal) Ht 5' 2.5" (1.59m) Wt 155 lb 3.2 oz (70.4kg) SpO2 91% LMP 11/13/2009 BMI 27.92 kg/(m^2). General Appearance: Appears older than her chronologic age NAD. Skin: Skin color, texture, turgor normal, no suspicious rashes or lesions. Head: Normocephalic, no masses, lesions, tenderness or abnormalities. Oropharynx: Dentures, no oral lesions or thrush. Neck: No masses or adenopathy. Lungs: Not labored, normal to percussion, no wheezes or crackles, diminished breath sounds. Heart: Regular rate and rhythm, no murmurs gallops. Extremities: No edema, no clubbing. Assessment/Plan: 1. Mild COPD -Mild COPD with eosinophilia. Recommend continued use of ICS/LABA as well as LAMA -Added albuterol to use as needed -Smoking cessation strongly encouraged 2. Emphysema -Oxygen assessment 3. Cigarette smoker -Current smoker with sequelae of COPD/emphysema -Smoking cessation strongly encouraged -Patient participating in lung cancer screening program Dipesh Leong MD [facility] [place] documented in this encounterAk[facility] NoteHNO ID: [id number] Author: DIPESH LEONG MD Service: ? Author Type: Physician Type: Progress Notes Filed: 02/09/2024 12:50 Note Text: . [facility] [place] Note Patient name: David Aldrich PCP: Lulu Swanson APRN.CANDACE Referring Physician: Adwoa De Leon CNP CC: New patient for COPD HPI: David Aldrich 63 year old female current 50 pack year smoker with PMH significant for DM, HLD, HTN, hepatic steatosis, depression recently seen in lung cancer screening clinic, being referred for evaluation of COPD. Patient is new to id. Respiratory symptoms consist of dyspnea with exertion, especially notable when climbing stairs or carrying heavy objects. She has a daily cough productive of brown phlegm, daily wheezing. Currently using Advair and Spiriva. Her insurance would not cover Trelegy Ellipta or Breztri. She does not have a rescue inhaler to use. She has never been able to quit smoking stating that she just had not made up her mind to do so. No history of recurrent bronchitis or pneumonia. Pulmonary function test show mild obstruction, mainly small airways obstruction that improves with bronchodilator, significant air trapping and hyperinflation, reduction in diffusing capacity. Her lung cancer screening CT shows some mild upper lobe emphysema and bronchial wall thickening. DATA: SERVICE DATE: 12/18/2023 SERVICE TIME: 1:41 PM Oral Exhaled Nitric Oxide measurement: 7.0 (ppb) PFT 12/2023: Mild obstruction, improvement in small airways postbronchodilator, air trapping and hyperinflation, reduction in diffusing capacity Labs: Component Ref Range AND Units 4 mo ago (09/09/23) WBC 3.70 - 11.00 k/uL 8.01 RBC 3.90 - 5.20 m/uL 4.57 Hemoglobin 11.5 - 15.5 g/dL 14.4 Hematocrit 36.0 - 46.0 % 43.8 MCV 80.0 - 100.0 fL 95.8 MCH 26.0 - 34.0 pg 31.5 MCHC 30.5 - 36.0 g/dL 32.9 RDW-CV 11.5 - 15.0 % 13.2 Platelet Count 150 - 400 k/uL 279 MPV 9.0 - 12.7 fL 10.5 Neutrophils % % 52.2 Abs Neut 1.45 - 7.50 k/uL 4.18 Lymphocytes % % 32.8 Abs Lymph 1.00 - 4.00 k/uL 2.63 Monocytes % % 8.0 Abs Sebastian <0.87 k/uL 0.64 Eosinophils % % 5.9 Abs Eosin <0.46 k/uL 0.47 High Basophils % % 0.9 Abs Baso <0.11 k/uL 0.07 Immature Granulocytes % % 0.2 Abs Immature Gran <0.10 k/uL <0.03 NRBC /100 WBC 0.0 Absolute nRBC <0.01 k/uL <0.01 Diff Type Auto Imaging / Diagnostic Studies: DATE OF EXAM: Nov 27 2023 11:45AM [facility] 0562 - CT LUNG SCREEN WO IVCON / COMPARISON: Type of study and date/time RESULT: Clustered peribronchial branching and nodular opacity within middle lobe images 143 through 1620, and in RIGHT lower lobe 163 through 188. No dominant nodule or howard consolidation, most nodules in size range 2 to 3 mm, some confluent opacities up to 6 x 3 mm for example on image 167. Few additional scattered tiny opacities, for example within RIGHT upperlobe image 83 measuring 2 mm, and measuring 3 mm LEFT lower lobe [id number]. Other findings: Mild apical predominant emphysema. Mild LEFT atrial dilation. Mediastinal lymph nodes which are subcentimeter to borderline enlarged. Partial fatty atrophy RIGHT periscapular muscles. Degenerative changes thoracic spine. Incidental coronary calcium as automatically processed and calculatedusing AI: Total Coronary Calcium Score = [100+] Agatston Units Percentile Rank (age and gender matched relative to reference population): [75th-100th] percentile* [* https://www.bueno-nhlbi.org/calcium/input.aspx] Localizer images: Mild curvature and degenerative change lumbar spine I personally reviewed the images with interpretation in HPI PAST MEDICAL HISTORY Diagnosis Date Arrhythmia Bradycardia Diabetes mellitus with peripheral artery disease (HCC) 03/06/2015 H/O percutaneous left heart catheterization 05/2012 negative[facility] History of rectal polypectomy 09/23/201712/2014: hyperplastic polyp Hyperlipidemia LDL goal < 100 01/25/2013 Hypertension Major depressive disorder, recurrent episode, unspecified Non-alcoholic fatty liver disease 10/13/2014 Other and unspecified hyperlipidemia Peripheral arterial disease (HCC) 03/06/2015 Recurrent major depressive disorder, in full remission (HCC) 03/10/2017 Snoring Type 2 diabetes mellitus with stage 3 chronic kidney disease, without long-term current use of insulin (HCC) 05/11/2016 ALLERGIES Allergen Reactions Zocor [Simvastatin] Myalgia zolpidem (AMBIEN) 10 mg Take 1 tablet by mouth daily at bedtime for 30 days. cyclobenzaprine (FLEXERIL) 5 mg tablet Take 1 tablet by mouth three times a day as needed. lisinopril (ZESTRIL) 5 mg tablet Take 1 tablet by mouth once daily. metFORMIN (GLUCOPHAGE) 500 mg tablet Take 1 tablet by mouth daily with dinner. imipramine HCl (TOFRANIL) 50 mg tablet Take 3 tablets by mouth daily at bedtime. atorvastatin (LIPITOR) 20 mg tablet Take 1 tablet by (more content not included)...[facility]12-23-2024 NoteHNO ID: [id number] Author: LULU SWANSON APRN.CANDACE Service: ? Author Type: Nurse Practitioner Type: Progress Notes Filed: 02/02/2024 16:17 Note Text: The patient left without being seen.[facility]12-23-2024 History of Present illness Narrative* Lulu Swanson APRN.CNP - 02/02/2024 4:17 PM EST The patient left without being seen. documented in this encounterAk[facility]12[facility] Telephone encounter Note * Telephone Encounter - Paulina Marino - 01/28/2024 11:41 AM EST Prescription Refill Information The patient has been identified by name and date of : Yes Caregiver verified no other encounters exist for this prescription request: Yes Caregiver confirmed with patient/requestor that no other refills are due, in the near future, with this provider at this time: Yes The last office visit in the department: 12-30-23 Does the patient have a future office visit with this provider/department: No Requested Prescriptions Pending Prescriptions Disp Refills zolpidem (AMBIEN) 10 mg 30 tablet 0 Sig: Take 1 tablet by mouth daily at bedtime for 30 days. cyclobenzaprine (FLEXERIL) 5 mg tablet 90 tablet 0 Sig: Take 1 tablet by mouth three times a day as needed. Paulina Mitchell January 28, 2024 11:42 AM [facility]12-[facility] Miscellaneous Notes* Telephone Encounter - Paulina Marino - 01/28/2024 11:41 AM EST Prescription Refill Information The patient has been identified by name and date of : Yes Caregiver verified no other encounters exist for this prescription request: Yes Caregiver confirmed with patient/requestor that no other refills are due, in the near future, with this provider at this time: Yes The last office visit in the department: 12-30-23 Does the patient have a future office visit with this provider/department: No Requested Prescriptions Pending Prescriptions Disp Refills zolpidem (AMBIEN) 10 mg 30 tablet 0 Sig: Take 1 tablet by mouth daily at bedtime for 30 days. cyclobenzaprine (FLEXERIL) 5 mg tablet 90 tablet 0 Sig: Take 1 tablet by mouth three times a day as needed. Paulina Mitchell January 28, 2024 11:42 AM documented in this encounterAkron [facility]12-13-2024 Telephone encounter Note * Telephone Encounter - Elaine Machuca RN - 01/23/2024 3:38 PM EST Patient notified of results and provider's instructions. Patient verbalizes understanding. Elaine Machuca RN [facility]12-[facility] Miscellaneous Notes* Telephone Encounter - Elaine Machuca RN - 01/23/2024 3:38 PM EST Patient notified of results and provider's instructions. Patient verbalizes understanding. Elaine Machuca RN * Telephone Encounter - Lavon Terry LPN - 01/23/2024 3:25 PM EST TC to pt, no answer, unable to leave message d/t voicemail box was full. Lavon Terry LPN * Telephone Encounter - Lulu Swanson APRN.CNP - 01/23/2024 3:03 PM EST Finger needs to be reassessed, as it has been 10 days since I've seen the finger. Consider ER if noimprovement, as she did call in on 01/14 and 01/15 and reported that the finger was not improving. Cancelled appt on 01/19, 01/20 and today. The xray of the finger does not show any infection of the bone, which is good. It looks like there possibly was an old fracture of that finger. Lulu Swanson APRN.CANDACE * Telephone Encounter - Erica Mane MA - 01/23/2024 1:29 PM EST See update below from pt. Erica Mane MA * Telephone Encounter - Donna Shaffer - 01/23/2024 1:26 PM EST Patient calling in to change her appt to Friday, and is also asking for another script of the medication for her finger. Please review and advise. Donna Shaffer January 23, 2024 1:27 PM documented in this encounterAkron [facility]12-13-2024 Telephone encounter Note * Telephone Encounter - Lavon Terry LPN - 01/23/2024 3:25 PM EST TC to pt, no answer, unable to leave message d/t voicemail box was full. Lavon Terry LPN [facility]12-[facility] Telephone encounter Note* Telephone Encounter - Lulu Swanson APRN.CNP - 01/23/2024 3:03 PM EST Finger needs to be reassessed, as it has been 10 days since I've seen the finger. Consider ER if noimprovement, as she did call in on 01/14 and 01/15 and reported that the finger was not improving. Cancelled appt on 01/19, 01/20 and today. The xray of the finger does not show any infection of the bone, which is good. It looks like there possibly was an old fracture of that finger. Lulu Swanson APRN.CANDACE [facility]12-[facility] Telephone encounter Note* Telephone Encounter - Erica Mane MA - 01/23/2024 1:29 PM EST See update below from pt. Erica Mane MA [facility] Telephone encounter Note* Telephone Encounter - Donna Shaffer - 01/23/2024 1:26 PM EST Patient calling in to change her appt to Friday, and is also asking for another script of the medication for her finger. Please review and advise. Donna Shaffer January 23, 2024 1:27 PM [facility] Telephone encounter Note* Telephone Encounter - Lisa Talamantes RN - 01/22/2024 1:19 PM EST Pt called in and asked if provider had said anything about her finger x-ray. I let her know it saidthat Pt had an appointment on 01/20/24, Pt changed appointment to 01/23/24. She states she better keep that appointment then. I told her yes she should. [facility] Miscellaneous Notes* Telephone Encounter - Lisa Talamantes RN - 01/22/2024 1:19 PM EST Pt called in and asked if provider had said anything about her finger x-ray. I let her know it saidthat Pt had an appointment on 01/20/24, Pt changed appointment to 01/23/24. She states she better keep that appointment then. I told her yes she should. documented in this encounterAkron [facility]12-10-2024 Telephone encounter Note * Telephone Encounter - Mi Espinoza RN - 01/20/2024 3:29 PM EST Spoke with Lulu's office. Patient scheduled to see Dr. Arias at [facility] for consultation tomorrow not scheduled for a heart cath. Called patient back and went over appointment tomorrow with verbalized understanding. Patient reports at this time she will atleast go for the consultation and see Lulu after at 220 pm. [facility] Miscellaneous Notes* Telephone Encounter - Mi Espinoza RN - 01/20/2024 3:29 PM EST Spoke with Lulu's office. Patient scheduled to see Dr. Arias at [facility] for consultation tomorrow not scheduled for a heart cath. Called patient back and went over appointment tomorrow with verbalized understanding. Patient reports at this time she will atleast go for the consultation and see Lulu after at 220 pm. * Telephone Encounter - Mi Espinoza RN - 01/20/2024 2:28 PM EST Patient calls to report that she doesn't want to go to [facility] for her carotid artery study (scheduled for tomorrow 01/21/2024). [facility] Noted that the US was actually scheduled for 01/29/2024 with [facility]. Patient then reports it is for the scope that goes up through the leg. I believe she is referring to a heart catheterization. I don't see those orders. Please review and adviseMi RN documented in this encounterAkron Children'[facility] Hospital12-10-2024 Telephone encounter Note * Telephone Encounter - Mi Espinoza RN - 01/20/2024 2:28 PM EST Patient calls to report that she doesn't want to go to [facility] for her carotid artery study (scheduled for tomorrow 01/21/2024). Patient would prefer that it be scheduled through [facility]. Noted that the US was actually scheduled for 01/29/2024 with [facility]. Patient then reports it is for the scope that goes up through the leg. I believe she is referring to a heart catheterization. I don't see those orders. Please review and adviseMi RN [facility]12[facility] Telephone encounter Note* Telephone Encounter - Lulu Swanson APRN.CNP - 01/16/2024 4:35 PM EST Noted. Lulu Swanson APRN.CANDACE [facility]12-[facility] Miscellaneous Notes* Telephone Encounter - Lulu Swanson APRN.CNP - 01/16/2024 4:35 PM EST Noted. Lulu Swanson APRN.CANDACE * Telephone Encounter - Elaine Machuca RN - 01/16/2024 4:33 PM EST Patient notified of results and provider's instructions. Patient states that she will wait to see provider on Friday for provider to evaluate finger. Patient states that she still is in a lot of pain and the swelling has not gone down. Advised patient again that if finger is not improving she needs to go to ER. Patient states that she is not going to ER. Elaine Machuca RN * Telephone Encounter - Lavon Terry LPN - 01/16/2024 4:05 PM EST Phoned pt, no answer,unable to leave message d/t voicemail is full and can not accept messages at this time. * Telephone Encounter - Lulu Swanson APRN.CNP - 01/16/2024 3:35 PM EST If her finger is not improving, then I would be concerned that she is failing out patient antibiotics. Unfortunately, the xray results are still in process. Therefore, I would have to suggest going to the ER to have the finger further evaluated. * Telephone Encounter - Lindsay Gustafson LPN - 01/16/2024 3:08 PM EST Patient calling she has been taking the Clindamycin since Friday and has not noticed any improvement in her finger. She said her finger is red and swollen, not any better then when she was in the office. Patient asking if she the antibiotic rx needs to changed to something else? She uses [facility] for her pharmacy. Was asking about the xray, computer shows in process. Please advise documented in this encounterAkron [facility]12-06-2024 Telephone encounter Note * Telephone Encounter - Elaine Machuca RN - 01/16/2024 4:33 PM EST Patient notified of results and provider's instructions. Patient states that she will wait to see provider on Friday for provider to evaluate finger. Patient states that she still is in a lot of pain and the swelling has not gone down. Advised patient again that if finger is not improving she needs to go to ER. Patient states that she is not going to ER. Elaine Machuca RN [facility]12-[facility] Telephone encounter Note* Telephone Encounter - Lavon Terry LPN - 01/16/2024 4:05 PM EST Phoned pt, no answer,unable to leave message d/t voicemail is full and can not accept messages at this time. [facility] Telephone encounter Note* Telephone Encounter - Lulu Swanson APRN.CNP - 01/16/2024 3:35 PM EST If her finger is not improving, then I would be concerned that she is failing out patient antibiotics. Unfortunately, the xray results are still in process. Therefore, I would have to suggest going to the ER to have the finger further evaluated. [facility]12-06-2024 Telephone encounter Note* Telephone Encounter - Lindsay Gustafson LPN - 01/16/2024 3:08 PM EST Patient calling she has been taking the Clindamycin since Friday and has not noticed any improvement in her finger. She said her finger is red and swollen, not any better then when she was in the office. Patient asking if she the antibiotic rx needs to changed to something else? She uses [facility] for her pharmacy. Was asking about the xray, computer shows in process. Please advise [facility]12-05-2024 Telephone encounter Note* Telephone Encounter - Marie Elmore RN - 01/15/2024 1:00 PM EST Spoke with patient. Given message from provider's office. Patient verbalizes understanding. She will call tomorrow with update. Marie Elmore RN [facility]12-05-2024 Miscellaneous Notes* Telephone Encounter - Marie Elmore RN - 01/15/2024 1:00 PM EST Spoke with patient. Given message from provider's office. Patient verbalizes understanding. She will call tomorrow with update. Marie Elmore RN * Telephone Encounter - Idania Devries APRN.CANDACE - 01/15/2024 12:49 PM EST Agree with nurse's assessment. * Telephone Encounter - Marie Elmore RN - 01/15/2024 12:24 PM EST Patient calling to say that right index finger swelling and pain are not improving on the antibiotic. She states it may be a little worse than it was on Friday when seen in OV. She does not see any visible worsening of swelling but says her finger "feels tight". Pain comes and goes to the same degree. Sometimes 10/10. Patient says she expected improvement by now. She denies increased redness, streaking, warmth or drainage. Patient started Clindamycin on Friday. Advised her may take a few more days to work and to follow instructions to go to ER if red streaking or worsening symptoms. Advised provider out of office today. Marie Elmore RN documented in this encounterAk[facility] Telephone encounter Note * Telephone Encounter - Idania Devries APRN.CNP - 01/15/2024 12:49 PM EST Agree with nurse's assessment. [facility]12-05-2024 Telephone encounter Note* Telephone Encounter - Marie Elmore RN - 01/15/2024 12:24 PM EST Patient calling to say that right index finger swelling and pain are not improving on the antibiotic. She states it may be a little worse than it was on Friday when seen in OV. She does not see any visible worsening of swelling but says her finger "feels tight". Pain comes and goes to the same degree. Sometimes 10/10. Patient says she expected improvement by now. She denies increased redness, streaking, warmth or drainage. Patient started Clindamycin on Friday. Advised her may take a few more days to work and to follow instructions to go to ER if red streaking or worsening symptoms. Advised provider out of office today. Marie Elmore, RN [facility]12-04-2024 History of Present illness Narrative* Khadijah Baxter RT(R) - 01/14/2024 1:50 PM EST Radiology Service Progress Note PATIENT NAME: David Aldrich DATE OF SERVICE: January 14, 2024 TIME: 1:41 PM PATIENT IDENTITY VERIFICATION COMPLETED USING TWO (2) IDENTIFIERS: Name and Date of confirmedby patient verbally. FALL SCREENING: Has the patient had 2 falls in the last year or 1 fall with injury or currently using an Ambulatory Assistive Device (Walker, Cane, Wheelchair, Crutches, etc.)? No PATIENT GENDER DATA: Female. status: : No status: NO. PATIENT RELEVANT IMPLANT DATA REVIEWED: Not Applicable PATIENT PRESENTS WITH AN IMPLANTABLE OR ATTACHED BUSINESS OFFICE TECHNICIAN: No RADIOLOGY DEPARTMENT: General X-ray: Exam(s) Completed: Upper Extremity X- Ray(s): Fingers/Thumb, right PERIPHERAL IV DATA: Not applicable SIGNED BY: RT Catherine(Kai) January 14, 2024 1:41 PM documented in this encounterAkron [facility]12-04-2024 NoteHNO ID: [id number] Author: KHADIJAH BAXTER RT(R) Service: Radiology Author Type: Technologist Type: Progress Notes Filed: 01/14/2024 13:47 Note Text: Radiology Service Progress Note PATIENT NAME: David Aldrich DATE OF SERVICE: January 14, 2024 TIME: 1:41 PM PATIENT IDENTITY VERIFICATION COMPLETED USING TWO (2) IDENTIFIERS: Name and Date of confirmed by patient verbally. FALL SCREENING: Has the patient had 2 falls in the last year or 1 fall with injury or currently using an Ambulatory Assistive Device (Walker, Cane, Wheelchair, Crutches, etc.)? No PATIENT GENDER DATA: Female. status: : No status: NO. PATIENT RELEVANT IMPLANT DATA REVIEWED: Not Applicable PATIENT PRESENTS WITH AN IMPLANTABLE OR ATTACHED BUSINESS OFFICE TECHNICIAN: No RADIOLOGY DEPARTMENT: General X-ray: Exam(s) Completed: Upper Extremity X-Ray(s): Fingers/Thumb, right PERIPHERAL IV DATA: Not applicable SIGNED BY: RT Catherine(R) January 14, 2024 1:41 [facility] Note* Addendum Note - Lulu Swanson APRN.CNP - 01/14/2024 1:36 PM ESTAddended by: LULU SWANSON on: 01/14/2024 01:36 PM Modules accepted: Orders [facility]12-04-2024 Miscellaneous Notes* Addendum Note - Lulu Swanson APRN.CNP - 01/14/2024 1:36 PM ESTAddended by: LULU SWANSON on: 01/14/2024 01:36 PM Modules accepted: Orders documented in this encounterAkron [facility]12-03-2024 Instructions* Patient Instructions* Lulu Swanson APRN.CNP - 01/13/2024 9:54 AM EST Start the clindamycin three times daily X 10 days. Get the xray of the finger. Recheck in 1 week, sooner if any worsening. To ER with any fevers, increased redness/pain, streaking. documented in this encounterAkron [facility]12-[facility]-2024 NoteHNO ID: [id number] Author: LULU SWANSON APRN.CNP Service: ? Author Type: Nurse Practitioner Type: Progress Notes Filed: 01/14/2024 09:13 Note Text: This is a 63 year old female who presents today with: Patient presents with: Acute Visit: R pointer finger swelling/pain x 1 week; intermittent HISTORY OF PRESENT ILLNESS: David Aldrich is a 63 year old female. Patient presents with: Acute Visit: R pointer finger swelling/pain x 1 week; intermittent Pt presents today with complaint of a sore finger for over a week. 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 Now red/swollen and painful Doing salt water soaks. PAST MEDICAL HISTORY: PAST MEDICAL HISTORY Diagnosis Date Arrhythmia Bradycardia Diabetes mellitus with peripheral artery disease (HCC) 03/06/2015 H/O percutaneous left heart catheterization May, negative--[facility] History of rectal polypectomy 09/23/201712/2014: hyperplastic polyp Hyperlipidemia LDL goal < 100 01/25/2013 Hypertension Major depressive disorder, recurrent episode, unspecified Non-alcoholic fatty liver disease 10/13/2014 Other and unspecified hyperlipidemia Other chronic nonalcoholic liver disease 01/16 fatty liver disease Peripheral arterial disease (HCC) 03/06/2015 Recurrent major depressive disorder, in full remission (HCC) 03/10/2017 Snoring Type 2 diabetes mellitus with stage 3 chronic kidney disease, without long-term current use of insulin (HCC) 05/11/2016 PAST SURGICAL HISTORY Procedure Laterality Date APPENDECTOMY 02/10/1970 ARTHROSCOPY KNEE DIAGNOSTIC W/WO SYNOVIAL BX SPX 10/19/2022 rt knee artroscopic I AND D, synovectomy CAROTID ENDARTERECTOMY 06/16/2012 Right carotid COLONOSCOPY 12/12/2014 Repeat 2018 ALLERGIES Zocor [Simvastatin] MEDICATIONS Current Outpatient Medications Medication Sig cyclobenzaprine (FLEXERIL) 5 mg tablet Take 1 tablet by mouth three times a day as needed. zolpidem (AMBIEN) 10 mg Take 1 tablet by mouth daily at bedtime for 30 days. odwayxbrebc-lbucdpbet-ycmqcvnu (TRELEGY ELLIPTA) 100-62.5-25 mcg inhalation powder Inhale 1 Puff as instructed once daily. lisinopril (ZESTRIL) 5 mg tablet Take 1 tablet by mouth once daily. metFORMIN (GLUCOPHAGE) 500 mg tablet Take 1 tablet by mouth daily with dinner. imipramine HCl (TOFRANIL) 50 mg tablet Take 3 tablets by mouth daily at bedtime. albuterol HFA (VENTOLIN HFA) 90 mcg/actuation inhaler Inhale 2 Puffs as instructed every 4 hours as needed for wheezing/shortness of breath. atorvastatin (LIPITOR) 20 mg tablet Take 1 tablet by mouth once daily. blood sugar diagnostic (BLOOD GLUCOSE TEST) test strip Test blood sugar(s) 1 times daily. Dx: Type 2 DM - Controlled E11.9 Insulin: No thiothixene (NAVANE) 1 mg capsule Take 2 capsules by mouth two times a day. ibuprofen (MOTRIN) 800 mg tablet Take 1 tablet by mouth every 8 hours as needed for pain. Take with food. buPROPion SR (WELLBUTRIN SR) 150 mg 12 hr tablet One pill by mouth once daily X 3 days, then increase to twice daily. Take second dose before 6PM. Try to stop smoking on day 5-7. ondansetron orally disintegrating (ZOFRAN ODT) 4 mg disintegrating tablet Take 1 tablet by mouth every 8 hours as needed for nausea/vomiting. omeprazole (PRILOSEC) 20 mg capsule Take 1 capsule by mouth daily before breakfast. 1/2 hr before meal. Lancets lancets Test blood sugar(s) 1 times daily. Dx: Type 2 DM - Controlled E11.9 Insulin: No polyethylene glycol 3350 (MIRALAX, GLYCOLAX) 17 gram/dose powder Use as directed for Miralax / Gatorade Bowel Prep Kit Gatorade Sports Drink Use as directed for Miralax / Gatorade Bowel Prep Kit Bisacodyl (DULCOLAX) 5 mg tab Use as directed for Miralax / Gatorade Bowel Prep Kit busPIRone (BUSPAR) 5 mg tablet Take 1 tablet by mouth three times daily as needed. Melatonin 5 mg cap Take 1 capsule by mouth once daily. Aspirin 81 mg tab Take 1 tablet by mouth once daily. Take with food. No current facility-administered medications for this visit. FAMILY HISTORY Problem Relation Age of Onset Heart Mother Diabetes Father other (Parkinson's disease [Other]) Brother Social History Tobacco Use Smoking status: Every Day Current packs/day: 1.00 Average packs/day: 1 pack/day for 48.9 years (48.9 ttl pk-yrs) Types: Cigarettes Start date: 02/10/1975 Smokeless tobacco: Never Vaping Use Vaping status: Never Used Substance Use Topics Alcohol use: Not Currently Comment: quit 04/18 Drug use: No EXAM: BP 124/82 Pulse 84 Resp 16 LMP 11/13/2009 PHYSICAL EXAM: General Appearance: Well appearing, alert, in no acute distress, well-hydrated, well nourished.. Skin: Skin color, texture, turgor normal, no suspicious rashes or lesions. Head: Normocephalic, no masses, lesions, tenderness or abnormalities. Eyes: Anicteric sclera. Pupils are equally round and reactive to light. Extraocular movements are intact. . Extremities: distal aspec (more content not included)...[facility]12-03-2024 History of Present illness Narrative* Lulu Swanson APRN.[employer] - 01/13/2024 9:44 AM EST This is a 63 year old female who presents today with: Patient presents with: Acute Visit: R pointer finger swelling/pain x 1 week; intermittent HISTORY OF PRESENT ILLNESS: David Aldrich is a 63 year old female. Patient presents with: Acute Visit: R pointer finger swelling/pain x 1 week; intermittent Pt presents today with complaint of a sore finger for over a week. 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 Now red/swollen and painful Doing salt water soaks. PAST MEDICAL HISTORY: PAST MEDICAL HISTORY Diagnosis Date Arrhythmia Bradycardia Diabetes mellitus with peripheral artery disease (HCC) 03/06/2015 H/O percutaneous left heart catheterization May, negative--[facility] History of rectal polypectomy 09/23/201712/2014: hyperplastic polyp Hyperlipidemia LDL goal < 100 01/25/2013 Hypertension Major depressive disorder, recurrent episode, unspecified Non-alcoholic fatty liver disease 10/13/2014 Other and unspecified hyperlipidemia Other chronic nonalcoholic liver disease 01/16 fatty liver disease Peripheral arterial disease (HCC) 03/06/2015 Recurrent major depressive disorder, in full remission (HCC) 03/10/2017 Snoring Type 2 diabetes mellitus with stage 3 chronic kidney disease, without long-term current use of insulin (HCC) 05/11/2016 PAST SURGICAL HISTORY Procedure Laterality Date APPENDECTOMY 02/10/1970 ARTHROSCOPY KNEE DIAGNOSTIC W/WO SYNOVIAL BX SPX 10/19/2022 rt knee artroscopic I & D, synovectomy CAROTID ENDARTERECTOMY 06/16/2012 Right carotid COLONOSCOPY 12/12/2014 Repeat 2018 ALLERGIES Zocor [Simvastatin] MEDICATIONS Current Outpatient Medications Medication Sig cyclobenzaprine (FLEXERIL) 5 mg tablet Take 1 tablet by mouth three times a day as needed. zolpidem (AMBIEN) 10 mg Take 1 tablet by mouth daily at bedtime for 30 days. xeojjyutqaf-vgucaejog-fewprrrn (TRELEGY ELLIPTA) 100-62.5-25 mcg inhalation powder Inhale 1 Puff asinstructed once daily. lisinopril (ZESTRIL) 5 mg tablet Take 1 tablet by mouth once daily. metFORMIN (GLUCOPHAGE) 500 mg tablet Take 1 tablet by mouth daily with dinner. imipramine HCl (TOFRANIL) 50 mg tablet Take 3 tablets by mouth daily at bedtime. albuterol HFA (VENTOLIN HFA) 90 mcg/actuation inhaler Inhale 2 Puffs as instructed every 4 hours asneeded for wheezing/shortness of breath. atorvastatin (LIPITOR) 20 mg tablet Take 1 tablet by mouth once daily. blood sugar diagnostic (BLOOD GLUCOSE TEST) test strip Test blood sugar(s) 1 times daily. Dx: Type 2 DM - Controlled E11.9 Insulin: No thiothixene (NAVANE) 1 mg capsule Take 2 capsules by mouth two times a day. ibuprofen (MOTRIN) 800 mg tablet Take 1 tablet by mouth every 8 hours as needed for pain. Take withfood. buPROPion SR (WELLBUTRIN SR) 150 mg 12 hr tablet One pill by mouth once daily X 3 days, then increase to twice daily. Take second dose before 6PM. Try to stop smoking on day 5-7. ondansetron orally disintegrating (ZOFRAN ODT) 4 mg disintegrating tablet Take 1 tablet by mouth every 8 hours as needed for nausea/vomiting. omeprazole (PRILOSEC) 20 mg capsule Take 1 capsule by mouth daily before breakfast. 1/2 hr before meal. Lancets lancets Test blood sugar(s) 1 times daily. Dx: Type 2 DM - Controlled E11.9 Insulin: No polyethylene glycol 3350 (MIRALAX, GLYCOLAX) 17 gram/dose powder Use as directed for Miralax / Gatorade Bowel Prep Kit Gatorade Sports Drink Use as directed for Miralax / Gatorade Bowel Prep Kit Bisacodyl (DULCOLAX) 5 mg tab Use as directed for Miralax / Gatorade Bowel Prep Kit busPIRone (BUSPAR) 5 mg tablet Take 1 tablet by mouth three times daily as needed. Melatonin 5 mg cap Take 1 capsule by mouth once daily. Aspirin 81 mg tab Take 1 tablet by mouth once daily. Take with food. No current facility-administered medications for this visit. FAMILY HISTORY Problem Relation Age of Onset Heart Mother Diabetes Father other (Parkinson's disease [Other]) Brother Social History Tobacco Use Smoking status: Every Day Current packs/day: 1.00 Average packs/day: 1 pack/day for 48.9 years (48.9 ttl pk-yrs) Types: Cigarettes Start date: 02/10/1975 Smokeless tobacco: Never Vaping Use Vaping status: Never Used Substance Use Topics Alcohol use: Not Currently Comment: quit 04/18 Drug use: No EXAM: BP 124/82 Pulse 84 Resp 16 LMP 11/13/2009 PHYSICAL EXAM: General Appearance: Well appearing, alert, in no acute distress, well-hydrated, well nourished.. Skin: Skin color, texture, turgor normal, no suspicious rashes or lesions. Head: Normocephalic, no masses, lesions, tenderness or abnormalities. Eyes: Anicteric sclera. Pupils are equally round and reactive to light. Extraocular movements are intact. . Extremities: distal aspect of the right index finger (DIP to tip) with some redness, mild swelling,and increased warmth. Tip of finger cracked. Not able to fully bend finger d/t swelling, but otherwise, ROM intact against resistance. Neurologic: Gait normal. ASSESSMENT/PLAN: 1. Finger infection - ICD9: 686.9, ICD10: L08.9 - Begin treatment with Clindamycin - No lymphangetic streaking, this was defined for patient to watch for and to seek medical care immediately if appears - Follow up for recheck in 1 week. Will get xray of finger to r/o osteomyelitis. Continue salt water soaks. - XR DIGIT GENERAL 3V FRONTAL/LAT/OBL RIGHT - CLINDAMYCIN HCL 150 MG CAPSULE Discussed treatment plan and patient voices understanding. Patient's questions answered appropriately. Medications and potential side effects were discussed and patient voices understanding. Return to the office as scheduled or as needed for worsening/no improvement. Lulu Swanson APRN.[employer] documented in this encounterAk[facility] Telephone encounter Note * Telephone Encounter - Angeline Cornell RN - 01/06/2024 8:20 AM EST The patient has been identified by name and date of : Yes Caregiver verified no other encounters exist for this prescription request: Yes Caregiver confirmed with patient/requestor that no other refills are due, in the near future, with this provider at this time: Yes The last office visit in the department: 12/30/2023 Does the patient have a future office visit with this provider/department: Yes 02/13/2024 Requested Prescriptions Pending Prescriptions Disp Refills cyclobenzaprine (FLEXERIL) 5 mg tablet 90 tablet 0 Sig: Take 1 tablet by mouth three times a day as needed. zolpidem (AMBIEN) 10 mg 30 tablet 0 Sig: Take 1 tablet by mouth daily at bedtime for 30 days. Angeline Cornell RN [facility]11-26-2024 Miscellaneous Notes* Telephone Encounter - Angeline Cornell RN - 01/06/2024 8:20 AM EST The patient has been identified by name and date of : Yes Caregiver verified no other encounters exist for this prescription request: Yes Caregiver confirmed with patient/requestor that no other refills are due, in the near future, with this provider at this time: Yes The last office visit in the department: 12/30/2023 Does the patient have a future office visit with this provider/department: Yes 02/13/2024 Requested Prescriptions Pending Prescriptions Disp Refills cyclobenzaprine (FLEXERIL) 5 mg tablet 90 tablet 0 Sig: Take 1 tablet by mouth three times a day as needed. zolpidem (AMBIEN) 10 mg 30 tablet 0 Sig: Take 1 tablet by mouth daily at bedtime for 30 days. Angeline Cornell RN documented in this encounterAkron Children'[facility]11-19-2024 Instructions* Patient Instructions* Lulu Swanson APRN.CANDACE - 12/30/2023 11:10 AM EST We'll get referral and notes faxed over to [facility]. Continue same medications. Schedule carotid duplex. documented in this encounterAkron Children'S [facility]11-19-2024 NoteHNO ID: [id number] Author: LULU SWANSON APRN.CANDACE Service: ? Author Type: Nurse Practitioner Type: Progress Notes Filed: 12/30/2023 12:48 Note Text: This is a 63 year old female who presents today with: Patient presents with: Acute Visit: Neck pain x2 weeks, intermittent, no known injury HISTORY OF PRESENT ILLNESS: David Aldrich is a 63 year old female. Patient presents with: Acute Visit: Neck pain x2 weeks, intermittent, no known injury Pt presents today with complaint of neck pain. Refers that she recently had lung ca screening and testing showed elevated coronary calcium score. (She thought this was carotid and fearful of having CVA). 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 It is intermittent and improving and doesn't hurt at this time. Neck ROM intact. No tenderness to palpation. No n/t of arms. Good strength of arms. Would like to discuss next options re: test results. She had previously been ordered a stress test, but did not complete. She had a stress test in the past and had side effects and felt like she couldn't breath or was being choked. She is afraid to have another stress test. She has an appt w/ cardiology, but is scheduled in March. Unsure that she wants to wait until March to follow-up. No cardiac chest pain. Occ palpitations. Chronic SOB. She does still smoke. She is on a baby ASA, statin, and has good BP control. Last A1C - 6.2. Last LDL 28. PAST MEDICAL HISTORY: PAST MEDICAL HISTORY Diagnosis Date Arrhythmia Bradycardia Diabetes mellitus with peripheral artery disease (HCC) 03/06/2015 [facility] of [facility]omy 09/23/201712/2014: hyperplastic polyp Hyperlipidemia LDL goal < 100 01/25/2013 Hypertension Major depressive disorder, recurrent episode, unspecified Non-alcoholic fatty liver disease 10/13/2014 Other and unspecified hyperlipidemia Other chronic nonalcoholic liver disease 01/16 fatty liver disease Peripheral arterial disease (HCC) 03/06/2015 Recurrent major depressive disorder, in full remission (HCC) 03/10/2017 Snoring Type 2 diabetes mellitus with stage 3 chronic kidney disease, without long-term current use of insulin (HCC) 05/11/2016 PAST SURGICAL HISTORY Procedure Laterality Date APPENDECTOMY 02/10/1970 ARTHROSCOPY KNEE DIAGNOSTIC W/WO SYNOVIAL BX SPX 10/19/2022 rt knee artroscopic I AND D, synovectomy CAROTID ENDARTERECTOMY 06/16/2012 Right carotid COLONOSCOPY 12/12/2014 Repeat 2018 ALLERGIES Zocor [Simvastatin] MEDICATIONS Current Outpatient Medications Medication Sig gomjuyjeyuy-nyiymswfv-ylvyanle (TRELEGY ELLIPTA) 100-62.5-25 mcg inhalation powder Inhale 1 Puff as instructed once daily. zolpidem (AMBIEN) 10 mg Take 1 tablet by mouth daily at bedtime for 30 days. cyclobenzaprine (FLEXERIL) 5 mg tablet Take 1 tablet by mouth three times a day as needed. lisinopril (ZESTRIL) 5 mg tablet Take 1 tablet by mouth once daily. metFORMIN (GLUCOPHAGE) 500 mg tablet Take 1 tablet by mouth daily with dinner. imipramine HCl (TOFRANIL) 50 mg tablet Take 3 tablets by mouth daily at bedtime. albuterol HFA (VENTOLIN HFA) 90 mcg/actuation inhaler Inhale 2 Puffs as instructed every 4 hours as needed for wheezing/shortness of breath. atorvastatin (LIPITOR) 20 mg tablet Take 1 tablet by mouth once daily. blood sugar diagnostic (BLOOD GLUCOSE TEST) test strip Test blood sugar(s) 1 times daily. Dx: Type 2 DM - Controlled E11.9 Insulin: No thiothixene (NAVANE) 1 mg capsule Take 2 capsules by mouth two times a day. ibuprofen (MOTRIN) 800 mg tablet Take 1 tablet by mouth every 8 hours as needed for pain. Take with food. buPROPion SR (WELLBUTRIN SR) 150 mg 12 hr tablet One pill by mouth once daily X 3 days, then increase to twice daily. Take second dose before 6PM. Try to stop smoking on day 5-7. ondansetron orally disintegrating (ZOFRAN ODT) 4 mg disintegrating tablet Take 1 tablet by mouth every 8 hours as needed for nausea/vomiting. omeprazole (PRILOSEC) 20 mg capsule Take 1 capsule by mouth daily before breakfast. 1/2 hr before meal. Lancets lancets Test blood sugar(s) 1 times daily. Dx: Type 2 DM - Controlled E11.9 Insulin: No polyethylene glycol 3350 (MIRALAX, GLYCOLAX) 17 gram/dose powder Use as directed for Miralax / Gatorade Bowel Prep Kit Gatorade Sports Drink Use as directed for Miralax / Gatorade Bowel Prep Kit Bisacodyl (DULCOLAX) 5 mg tab Use as directed for Miralax / Gatorade Bowel Prep Kit busPIRone (BUSPAR) 5 mg tablet Take 1 tablet by mouth three times daily as needed. Melatonin 5 mg cap Take 1 capsule by mouth once daily. Aspirin 81 mg tab Take 1 tablet by mouth once daily. Take with food. No current facility-administered medications for this visit. FAMILY HISTORY Problem Relation Age of Onset Heart Mother Diab (more content not included)...[facility]11-19-2024 History of Present illness Narrative* Lulu Swanson, [facility] - 12/30/2023 10:40 AM EST This is a 63 year old female who presents today with: Patient presents with: Acute Visit: Neck pain x2 weeks, intermittent, no known injury HISTORY OF PRESENT ILLNESS: David Aldrich is a 63 year old female. Patient presents with: Acute Visit: Neck pain x2 weeks, intermittent, no known injury Pt presents today with complaint of neck pain. Refers that she recently had lung ca screening and testing showed elevated coronary calcium score. (She thought this was carotid and fearful of having CVA). 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 It is intermittent and improving and doesn't hurt at this time. Neck ROM intact. No tenderness to palpation. No n/t of arms. Good strength of arms. Would like to discuss next options re: test results. She had previously been ordered a stress test, but did not complete. She had a stress test in the past and had side effects and felt like she couldn't breath or was being choked. She is afraid to have another stress test. She has an appt w/ cardiology, but is scheduled in March. Unsure that she wants to wait until March to follow-up. No cardiac chest pain. Occ palpitations. Chronic SOB. She does still smoke. She is on a baby ASA, statin, and has good BP control. Last A1C - 6.2. Last LDL 28. PAST MEDICAL HISTORY: PAST MEDICAL HISTORY Diagnosis Date Arrhythmia Bradycardia Diabetes mellitus with peripheral artery disease (HCC) 03/06/2015 H/O percutaneous left heart catheterization May, negative--[facility] History of rectal polypectomy 09/23/201712/2014: hyperplastic polyp Hyperlipidemia LDL goal < 100 01/25/2013 Hypertension Major depressive disorder, recurrent episode, unspecified Non-alcoholic fatty liver disease 10/13/2014 Other and unspecified hyperlipidemia Other chronic nonalcoholic liver disease 01/16 fatty liver disease Peripheral arterial disease (HCC) 03/06/2015 Recurrent major depressive disorder, in full remission (HCC) 03/10/2017 Snoring Type 2 diabetes mellitus with stage 3 chronic kidney disease, without long-term current use of insulin (HCC) 05/11/2016 PAST SURGICAL HISTORY Procedure Laterality Date APPENDECTOMY 02/10/1970 ARTHROSCOPY KNEE DIAGNOSTIC W/WO SYNOVIAL BX SPX 10/19/2022 rt knee artroscopic I & D, synovectomy CAROTID ENDARTERECTOMY 06/16/2012 Right carotid COLONOSCOPY 12/12/2014 Repeat 2018 ALLERGIES Zocor [Simvastatin] MEDICATIONS Current Outpatient Medications Medication Sig cenmtrgwoan-gztqfdpfm-xppivizv (TRELEGY ELLIPTA) 100-62.5-25 mcg inhalation powder Inhale 1 Puff asinstructed once daily. zolpidem (AMBIEN) 10 mg Take 1 tablet by mouth daily at bedtime for 30 days. cyclobenzaprine (FLEXERIL) 5 mg tablet Take 1 tablet by mouth three times a day as needed. lisinopril (ZESTRIL) 5 mg tablet Take 1 tablet by mouth once daily. metFORMIN (GLUCOPHAGE) 500 mg tablet Take 1 tablet by mouth daily with dinner. imipramine HCl (TOFRANIL) 50 mg tablet Take 3 tablets by mouth daily at bedtime. albuterol HFA (VENTOLIN HFA) 90 mcg/actuation inhaler Inhale 2 Puffs as instructed every 4 hours asneeded for wheezing/shortness of breath. atorvastatin (LIPITOR) 20 mg tablet Take 1 tablet by mouth once daily. blood sugar diagnostic (BLOOD GLUCOSE TEST) test strip Test blood sugar(s) 1 times daily. Dx: Type 2 DM - Controlled E11.9 Insulin: No thiothixene (NAVANE) 1 mg capsule Take 2 capsules by mouth two times a day. ibuprofen (MOTRIN) 800 mg tablet Take 1 tablet by mouth every 8 hours as needed for pain. Take withfood. buPROPion SR (WELLBUTRIN SR) 150 mg 12 hr tablet One pill by mouth once daily X 3 days, then increase to twice daily. Take second dose before 6PM. Try to stop smoking on day 5-7. ondansetron orally disintegrating (ZOFRAN ODT) 4 mg disintegrating tablet Take 1 tablet by mouth every 8 hours as needed for nausea/vomiting. omeprazole (PRILOSEC) 20 mg capsule Take 1 capsule by mouth daily before breakfast. 1/2 hr before meal. Lancets lancets Test blood sugar(s) 1 times daily. Dx: Type 2 DM - Controlled E11.9 Insulin: No polyethylene glycol 3350 (MIRALAX, GLYCOLAX) 17 gram/dose powder Use as directed for Miralax / Gatorade Bowel Prep Kit Gatorade Sports Drink Use as directed for Miralax / Gatorade Bowel Prep Kit Bisacodyl (DULCOLAX) 5 mg tab Use as directed for Miralax / Gatorade Bowel Prep Kit busPIRone (BUSPAR) 5 mg tablet Take 1 tablet by mouth three times daily as needed. Melatonin 5 mg cap Take 1 capsule by mouth once daily. Aspirin 81 mg tab Take 1 tablet by mouth once daily. Take with food. No current facility-administered medications for this visit. FAMILY HISTORY Problem Relation Age of Onset Heart Mother Diabetes Father other (Parkinson's disease [Other]) Brother Social History Tobacco Use Smoking status: Every Day Current packs/day: 1.00 Average packs/day: 1 pack/day for 48.9 years (48.9 ttl pk-yrs) Types: Cigarettes Start date: 02/10/1975 Smokeless tobacco: Never Vaping Use Vaping status: Never Used Substance Use Topics Alcohol use: Not Currently Comment: quit 04/18 Drug use: No EXAM: BP 124/76 Pulse 95 Resp 16 Wt 68.9 kg (152 lb) LMP 11/13/2009 SpO2 95% BMI 28.55 kg/m PHYSICAL EXAM: General Appearance: Well appearing, alert, in no acute distress, well-hydrated, well nourished.. Skin: Skin color, texture, turgor normal, no suspicious rashes or lesions. Head: Normocephalic, no masses, lesions, tenderness or abnormalities. Eyes: Anicteric sclera. Extraocular movements are intact. . Neck: Supple, no adenopathy; thyroid symmetric, normal size, no bruits. ROM intact. No pain w/ palpation. Lungs: Lungs clear to auscultation. No wheezing, rhonchi, rales.. Heart: RRR without murmur, gallop, or rubs. No ectopy. Extremities: No deformities, edema, skin discoloration, clubbing or cyanosis. Good capillary refill. Neurologic: Gait normal. ASSESSMENT/PLAN: 1. Elevated coronary artery calcium score - ICD9: 414.00, ICD10: R93.1 (primary diagnosis) She is scheduled with [facility] cardiology in March. She is interested in being seen sooner and was previously told no availability in [facility]. Will fax referral to [place] [facility] to check availability. She will continue aspirin 81 mg, statin, good diabetic control, good blood pressure control. Smoking cessation encouraged. To ER with any development of sustained chest pain, shortness of breath, palpitations. - CONSULT TO CARDIOLOGY 2. Bilateral carotid artery stenosis - ICD9: 433.10, 433.30, ICD10: I65.23 Does have a hx of endarteriectomy. Will get updated surveillance. - US CAROTID ARTERIES [facility] 3. Neck pain - ICD9: 723.1, ICD10: M54.2 Stable. She reports symptoms are improved, but was concerned that discomfort was related to possible carotid artery stenosis. Pt reassured. Discussed treatment plan and patient voices understanding. Patient's questions answered appropriately. Medications and potential side effects were discussed and patient voices understanding. Return to the office as scheduled or as needed for worsening/no improvement. Lulu Swanson APRN.[employer] documented in this encounterAkron [facility] Telephone encounter Note * Telephone Encounter - Angeline Cornell RN - 12/26/2023 3:08 PM EST Triage Protocol Recommended per Dr. Mckeon: If severe, needs seen at ER or over weekend Patient agreeable to this. Patient reports she has 7/10 neck soreness for about 24 hours, behind left ear, almost to the back of her neck, at hair line. 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 Taking ibuprofen. Full ROM to neck. Denies any recent falls or injury to her head. No confusion, chest pain, SOB, dizziness, weakness of arm or hand, fever, or rash. Reason for Disposition [1] MODERATE neck pain (e.g., interferes with normal activities) AND [2] present > 3 days Answer Assessment - Initial Assessment Questions 1. ONSET: yesterday 2. LOCATION: behind left ear almost to back of neck, at hairline area 3. PATTERN : sore-constant 4. SEVERITY: 7/10 5. RADIATION:no 6. CORD SYMPTOMS: No weakness or numbness of the arms or legs 7. CAUSE: Patient questions is she pulled something during her work 8. NECK OVERUSE: increased work, lifting 9. OTHER SYMPTOMS: Denies headache, fever, chest pain, difficulty breathing, neck swelling Protocols used: Neck Pain or [id number] [facility]11-15-2024 Miscellaneous Notes* Telephone Encounter - Angelnie Cornell RN - 12/26/2023 3:08 PM EST Triage Protocol Recommended per Dr. Mckeon: If severe, needs seen at ER or over weekend Patient agreeable to this. Patient reports she has 7/10 neck soreness for about 24 hours, behind left ear, almost to the back of her neck, at hair line. 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 Taking ibuprofen. Full ROM to neck. Denies any recent falls or injury to her head. No confusion, chest pain, SOB, dizziness, weakness of arm or hand, fever, or rash. Reason for Disposition [1] MODERATE neck pain (e.g., interferes with normal activities) AND [2] present > 3 days Answer Assessment - Initial Assessment Questions 1. ONSET: yesterday 2. LOCATION: behind left ear almost to back of neck, at hairline area 3. PATTERN : sore-constant 4. SEVERITY: 08/19 5. RADIATION:no 6. CORD SYMPTOMS: No weakness or numbness of the arms or legs 7. CAUSE: Patient questions is she pulled something during her work 8. NECK OVERUSE: increased work, lifting 9. OTHER SYMPTOMS: Denies headache, fever, chest pain, difficulty breathing, neck swelling Protocols used: Neck Pain or [id number]-[id number] documented in this encounterAkron [facility]11-[facility]24 Telephone encounter Note * Telephone Encounter - Mima Dee LPN - 12/26/2023 3:07 PM EST Scheduled a triage appt for patient. [facility] Miscellaneous Notes* Telephone Encounter - Mima Dee LPN - 12/26/2023 3:07 PM EST Scheduled a triage appt for patient. * Telephone Encounter - Alvin Mckeon MD - 12/26/2023 2:59 PM EST That should have nothing to do with it. If severe, needs seen at ER or uc over weekend * Telephone Encounter - Maryan Lemus LPN - 12/26/2023 2:50 PM EST patient called c/o neck sore on the left side of neck near her ear. Pain 08/19 sore, but she has been working a lot . Patient made appt for Friday at 10:40pm. Patient just worried it maybe related tocoronary artery calcification? Please review Maryan Lemus LPN documented in this encounterAkron Children[facility]11-15-2024 Telephone encounter Note * Telephone Encounter - Alvin Mckeon MD - 12/26/2023 2:59 PM EST That should have nothing to do with it. If severe, needs seen at ER or over weekend [facility]-15-20[facility] Telephone encounter Note* Telephone Encounter - Maryan Lemus LPN - 12/26/2023 2:50 PM EST patient called c/o neck sore on the left side of neck near her ear. Pain 08/19 sore, but she has been working a lot . Patient made appt for Friday at 10:40pm. Patient just worried it maybe related tocoronary artery calcification? Please review Maryan Lemus LPN [facility]11-14-2024 Telephone encounter Note* Telephone Encounter - Adwoa De Leon APRN.CNP - 12/25/2023 2:16 PM EST Pt notified PFT indicate mild COPD and mild emphysema. Recommend beginning an inhaler daily to helpwith symptoms and establishing with general pulmonology. Adwoa De Leon APRN.CNP [facility]11-14-2024 Miscellaneous Notes* Telephone Encounter - Adwoa De Leon APRN.CNP - 12/25/2023 2:16 PM EST Pt notified PFT indicate mild COPD and mild emphysema. Recommend beginning an inhaler daily to helpwith symptoms and establishing with general pulmonology. Adwoa De Leon APRN.CNP * Telephone Encounter - Angeline Escobar - 12/23/2023 1:38 PM EST Patient is requesting a return call in regards to PFT results please advise the patient. documented in this encounterAkron [facility]11-14-2024 Telephone encounter Note * Telephone Encounter - Keeley Barron LPN - 12/25/2023 11:13 AM EST Spoke with pt and information listed below given. Pt verbalizes understanding. Keeley Barron LPN [facility]11-14-2024 Miscellaneous Notes* Telephone Encounter - Keeley Barron LPN - 12/25/2023 11:13 AM EST Spoke with pt and information listed below given. Pt verbalizes understanding. Keeley Barron LPN * Telephone Encounter - Idania Devries APRN.CNP - 12/25/2023 7:51 AM EST They are very busy. That is no excuse. If she develops shortness of breath, chest pain, perfuse sweating, and or/ nausea and vomiting... go to ER. If she feels at all unstable, go to ER. That will allow access urgently. * Telephone Encounter - Angeline Escobar - 12/23/2023 9:21 AM EST Spoke with [facility] there next opening as of now if April 2024 * Telephone Encounter - Idania Devries APRN.CNP - 12/22/2023 2:25 PM EST Did you check with [facility]? Much closer and maybe can get you in sooner? I know our cardiology down here in [place] is hard to get a timely appt. * Telephone Encounter - Elaine Machuca RN - 12/22/2023 1:59 PM EST Patient calls and states that she had gotten appointment [facility] which was sooner than the 03/15 appointment. Patient states that she cannot find a ride up to [facility]. Patient is asking if she should get an appointment sooner than 03/15? Please review and advise, Elaine Machuca RN * Telephone Encounter - Vivien Dsouza MA - 12/08/2023 5:19 PM EDT Pt advised to try and schedule at other locations to see if she can get sooner appt. She is nervousbecause she has a history of right carotid endarterectomy in 2012. Advised I will still forward message to Jayne to keep eye on to see if she gets in sooner * Telephone Encounter - Idania Devries APRN.CNP - 12/08/2023 3:22 PM EDT I don't think she has much of a choice as they are scheduling that far out. No availability. Could call for an appt. At [facility] earlier? * Telephone Encounter - Angeline Cornell RN - 12/08/2023 2:44 PM EDT Patient asking for Lulu Haagen's advise regarding her recent lung cancer screening results and the incidental finding. Pt reports her cardiology appt is not until 03/2024 and asking if Lulu thinks it is appropriate to wait that long? Patient aware that provider is out this week and will address when she returns. Please call patient with response. Thank you. documented in this encounterAkron Children'[facility] Hospital11-14-2024 Telephone encounter Note * Telephone Encounter - Idania Devries APRN.CNP - 12/25/2023 7:51 AM EST They are very busy. That is no excuse. If she develops shortness of breath, chest pain, perfuse sweating, and or/ nausea and vomiting... go to ER. If she feels at all unstable, go to ER. That will allow access urgently. [facility]11-12-2024 Telephone encounter Note* Telephone Encounter - Angeline Escobar - 12/23/2023 1:38 PM EST Patient is requesting a return call in regards to PFT results please advise the patient. [facility]11-12-2024 Telephone encounter Note* Telephone Encounter - Angeline Escobar - 12/23/2023 9:21 AM EST Spoke with [facility] there next opening as of now if April [address]11-2024 Telephone encounter Note* Telephone Encounter - Idania Devries APRN.CNP - 12/22/2023 2:25 PM EST Did you check with [facility]? Much closer and maybe can get you in sooner? I know our cardiology down here in [place] is hard to get a timely appt. [facility]11-11-2024 Telephone encounter Note* Telephone Encounter - Elaine Machuca RN - 12/22/2023 1:59 PM EST Patient calls and states that she had gotten appointment [facility] at [facility] which was sooner than the 03/15 appointment. Patient states that she cannot find a ride up to [facility]. Patient is asking if she should get an appointment sooner than 03/15? Please review and advise, Elaine Machuca RN [facility]11-07-2024 NoteHNO ID: [id number] Author: BHAVANI GARCIA RPFT Service: ? Author Type: Respiratory Therapist Type: Procedures Filed: 12/18/2023 13:41 Note Text: RESPIRATORY THERAPY ORAL EXHALED NITRIC OXIDE SERVICE DATE: 12/18/2023 SERVICE TIME: 1:41 PM Oral Exhaled Nitric Oxide measurement: 7.0 (ppb) Normal: Adult <25 ppb, pediatric (<12 years) <20 ppb High Normal / Increased: Adult 25-50 ppb, pediatric (<12 years) 20-35 ppb Moderately raised exhaled Nitric Oxide may indicate underlying inflammation, but note that: Cold and influenza can raise exhaled Nitric Oxide and some patients have higher baseline exhaled Nitric Oxide levels than others. High: Adult >50 ppb, pediatric (<12 years) >35 ppb Indicative of ongoing eosinophilic inflammation. Symptomatic patient likely to respond to steroids. Possible causes (if already on steroids): Poor compliance, recent allergen exposure, steroid dose inadequate, and steroid resistance. Note that not all patients with high exhaled nitric oxide levels display symptoms. Oral Exhaled Nitric Oxide measurement (Previous Encounters) Test Date Oral Exhaled Nitric Oxide (ppb) 12/18/2023 7.0 NAME: HEMANT Villegas PATIENT NAME: David Aldrich DATE: December 18, 2023 TIME: 1:41 [facility]11-07-2024 Procedure note* Bhavani Garcia RPFT - 12/18/2023 1:40 PM ESTAssociated Order(s): NITRIC OXIDE, EXHALED RESPIRATORY THERAPY ORAL EXHALED NITRIC OXIDE SERVICE DATE: 12/18/2023 SERVICE TIME: 1:41 PM Oral Exhaled Nitric Oxide measurement: 7.0 (ppb) Normal: Adult <25 ppb, pediatric (<12 years) <20 ppb High Normal / Increased: Adult 25-50 ppb, pediatric (<12 years) 20-35 ppb Moderately raised exhaled Nitric Oxide may indicate underlying inflammation, but note that: Cold and influenza can raise exhaled Nitric Oxide and some patients have higher baseline exhaled Nitric Oxide levels than others. High: Adult >50 ppb, pediatric (<12 years) >35 ppb Indicative of ongoing eosinophilic inflammation. Symptomatic patient likely to respond to steroids. Possible causes (if already on steroids): Poor compliance, recent allergen exposure, steroid dose inadequate, and steroid resistance. Note that not all patients with high exhaled nitric oxide levels display symptoms. Oral Exhaled Nitric Oxide measurement (Previous Encounters) Test Date Oral Exhaled Nitric Oxide (ppb) 12/18/2023 7.0 NAME: HEMANT Villegas PATIENT NAME: David Aldrich DATE: December 18, 2023 TIME: 1:41 PM [facility]11-07-2024 Procedure note* Bhavani Garcia RPFT - 12/18/2023 1:40 PM ESTAssociated Order(s): NITRIC OXIDE, EXHALED RESPIRATORY THERAPY ORAL EXHALED NITRIC OXIDE SERVICE DATE: 12/18/2023 SERVICE TIME: 1:41 PM Oral Exhaled Nitric Oxide measurement: 7.0 (ppb) Normal: Adult <25 ppb, pediatric (<12 years) <20 ppb High Normal / Increased: Adult 25-50 ppb, pediatric (<12 years) 20-35 ppb Moderately raised exhaled Nitric Oxide may indicate underlying inflammation, but note that: Cold and influenza can raise exhaled Nitric Oxide and some patients have higher baseline exhaled Nitric Oxide levels than others. High: Adult >50 ppb, pediatric (<12 years) >35 ppb Indicative of ongoing eosinophilic inflammation. Symptomatic patient likely to respond to steroids. Possible causes (if already on steroids): Poor compliance, recent allergen exposure, steroid dose inadequate, and steroid resistance. Note that not all patients with high exhaled nitric oxide levels display symptoms. Oral Exhaled Nitric Oxide measurement (Previous Encounters) Test Date Oral Exhaled Nitric Oxide (ppb) 12/18/2023 7.0 NAME: HEMANT Villegas PATIENT NAME: David Aldrich DATE: December 18, 2023 TIME: 1:41 PM documented in this encounterAkron [facility]11-07-2024 NoteHNO ID: [id number] Author: BHAVANI GARCIA RPFT Service: ? Author Type: Respiratory Therapist Type: Progress Notes Filed: 12/18/2023 13:41 Note Text: PULM FUNCTION: Provider: Adwoa De Leon APRN.[employer] Assisting Tech: Bhavani Garcia RPFT Spirometry w/BD: 1 DLCO: 1 LV - Box: 1 [facility] History of Present illness Narrative* Bhavani Garcia RPFT - 12/18/2023 1:39 PM EST PULM FUNCTION: Provider: Adwoa De Leon APRN.[employer] Assisting Tech: Bhavani Garcia RPFT Spirometry w/BD: 1 DLCO: 1 LV - Box: 1 Exhaled Nitric Oxide: 1 documented in this encounterAkron Children'[facility] Hospital10-28-2024 Telephone encounter Note * Telephone Encounter - Vivien Dsouza MA - 12/08/2023 5:19 PM EDT Pt advised to try and schedule at other locations to see if she can get sooner appt. She is nervousbecause she has a history of right carotid endarterectomy in 2013. Advised I will still forward message to Jayne to keep eye on to see if she gets in sooner [facility]-28-20[facility] Telephone encounter Note* Telephone Encounter - Idania Devries APRN.CNP - 12/08/2023 3:22 PM EDT I don't think she has much of a choice as they are scheduling that far out. No availability. Could call for an appt. At [facility] earlier? [facility] Telephone encounter Note* Telephone Encounter - Angeline Cornell RN - 12/08/2023 2:44 PM EDT Patient asking for Lulu Swasnon's advise regarding her recent lung cancer screening results and the incidental finding. Pt reports her cardiology appt is not until 03/2024 and asking if Lulu thinks it is appropriate to wait that long? Patient aware that provider is out this week and will address when she returns. Please call patient with response. Thank you. [facility] Telephone encounter Note* Telephone Encounter - Adwoa De Leon APRN.CNP - 12/08/2023 2:31 PM EDT Phone call to patient and discussed results: The low dose CT lung screening cannot evaluate for blockage of coronary arteries. We can only see calcifications. She is scheduled with cardiology in 03/2024. If she is having chest pain she should go to the ER. Otherwise, she can reach out to her PCP to s ee if they can assist with scheduling testing prior to her appointment with the [facility] if sheis concerned. Pt will call PCP. Adwoa De Leon APRN.CNP [facility]10-28-20[facility] Miscellaneous Notes* Telephone Encounter - Adwoa De Leon APRN.CNP - 12/08/2023 2:31 PM EDT Phone call to patient and discussed results: The low dose CT lung screening cannot evaluate for blockage of coronary arteries. We can only see calcifications. She is scheduled with cardiology in 03/2024. If she is having chest pain she should go to the ER. Otherwise, she can reach out to her PCP to s ee if they can assist with scheduling testing prior to her appointment with the [facility] if sheis concerned. Pt will call PCP. Adwoa De Leon APRN.CNP * Telephone Encounter - Angeline Escobar - 12/08/2023 1:19 PM EDT Patient is calling back requesting to speak with Adwoa in regards to the CT results, she was questioning the coronary artery calcification. Please advise the patient. * Telephone Encounter - Adwoa De Leon APRN.CNP - 12/02/2023 4:42 PM EDT Spoke with patient and the following results were discussed: LDCT Lung Screen Results LungRADS category: 0S Incidentals: moderate to severe CAC Recommendations: She complains of dry cough and shortness of breath worse with laying down. She No Showed her PFT testing on 12/01/2023. Recommended rescheduling this and plan will be to begin treatment and follow upCT in 3 months. Pt has cardiology appts 03/2024 and 05/2024 already scheduled. She denies chest pain. Emergency precautions given. Patient verbalized understanding of the results and had no other questions or concerns at this time. Adwoa De Leon APRN.CNP December 02, 2023 4:42 PM * Telephone Encounter - Nel Ramos LPN - 12/02/2023 12:45 PM EDT Patient called. Verified name and date of . Patient is requesting results of lung cancer screening from last week. Please review and advise. Nel Ramos LPN documented in this encounterAkron Children'[facility] Hospital10-28-2024 Telephone encounter Note * Telephone Encounter - Angeline Escobar - 12/08/2023 1:19 PM EDT Patient is calling back requesting to speak with Adwoa in regards to the CT results, she was questioning the coronary artery calcification. Please advise the patient. [facility] Telephone encounter Note* Telephone Encounter - Aarti Reyes - 12/08/2023 9:28 AM EDT Patient requesting the following medications that are on list: zolpidem (AMBIEN) 10 mg () Patient last seen: 11-05-23 Future appt scheduled: yes PHARMACY: [facility]/[place]. Follow up 02/13/24 with Lulu [facility]-28-[facility] Miscellaneous Notes* Telephone Encounter - Aarti Reyes - 12/08/2023 9:28 AM EDT Patient requesting the following medications that are on list: zolpidem (AMBIEN) 10 mg () Patient last seen: 11-05-23 Future appt scheduled: yes PHARMACY: [facility]. Follow up 02/13/24 with Lulu [facility] Miscellaneous Notes* Telephone Encounter - Idania Devries APRN.[employer] - 12/05/2023 9:08 AM EDT The following approved medication requests have been transmitted electronically. Requested Prescriptions Pending Prescriptions Disp Refills lisinopril (ZESTRIL) 5 mg tablet 30 tablet 11 Sig: Take 1 tablet by mouth once daily. metFORMIN (GLUCOPHAGE) 500 mg tablet 30 tablet 11 Sig: Take 1 tablet by mouth daily with dinner. Idania Devries APRN.CNP * Telephone Encounter - Cheryl Desir - 12/04/2023 3:46 PM EDT Prescription Refill Information The patient has been identified by name and date of : Yes Caregiver verified no other encounters exist for this prescription request: Yes Caregiver confirmed with patient/requestor that no other refills are due, in the near future, with this provider at this time: Yes The last office visit in the department: 11/05/23 Does the patient have a future office visit with this provider/department: Yes Requested Prescriptions Pending Prescriptions Disp Refills lisinopril (ZESTRIL) 5 mg tablet 30 tablet 11 Sig: Take 1 tablet by mouth once daily. metFORMIN (GLUCOPHAGE) 500 mg tablet 30 tablet 11 Sig: Take 1 tablet by mouth daily with dinner. Cheryl Mitchell December 04, 2023 3:47 PM documented in this encounter[facility]24 Telephone encounter Note * Telephone Encounter - Idania Devries APRN.CNP - 12/05/2023 9:08 AM EDT The following approved medication requests have been transmitted electronically. Requested Prescriptions Pending Prescriptions Disp Refills lisinopril (ZESTRIL) 5 mg tablet 30 tablet 11 Sig: Take 1 tablet by mouth once daily. metFORMIN (GLUCOPHAGE) 500 mg tablet 30 tablet 11 Sig: Take 1 tablet by mouth daily with dinner. Idania Devries APRN.CNP [facility] Telephone encounter Note* Telephone Encounter - Cheryl Desir - 12/04/2023 3:46 PM EDT Prescription Refill Information The patient has been identified by name and date of : Yes Caregiver verified no other encounters exist for this prescription request: Yes Caregiver confirmed with patient/requestor that no other refills are due, in the near future, with this provider at this time: Yes The last office visit in the department: 11/05/23 Does the patient have a future office visit with this provider/department: Yes Requested Prescriptions Pending Prescriptions Disp Refills lisinopril (ZESTRIL) 5 mg tablet 30 tablet 11 Sig: Take 1 tablet by mouth once daily. metFORMIN (GLUCOPHAGE) 500 mg tablet 30 tablet 11 Sig: Take 1 tablet by mouth daily with dinner. Cherly Mitchell December 04, 2023 3:47 PM [facility] Telephone encounter Note* Telephone Encounter - Adwoa De Leon APRN.CNP - 12/02/2023 4:42 PM EDT Spoke with patient and the following results were discussed: LDCT Lung Screen Results LungRADS category: 0S Incidentals: moderate to severe CAC Recommendations: She complains of dry cough and shortness of breath worse with laying down. She No Showed her PFT testing on 12/01/2023. Recommended rescheduling this and plan will be to begin treatment and follow upCT in 3 months. Pt has cardiology appts 03/2024 and 05/2024 already scheduled. She denies chest pain. Emergency precautions given. Patient verbalized understanding of the results and had no other questions or concerns at this time. Adwoa De Leon APRN.CNP December 02, 2023 4:42 PM [facility] Telephone encounter Note* Telephone Encounter - Nel Ramos LPN - 12/02/2023 12:45 PM EDT Patient called. Verified name and date of . Patient is requesting results of lung cancer screening from last week. Please review and advise. Nel Ramos LPN [facility] History of Present illness Narrative* Nel Hdz RT(R) - 11/27/2023 11:40 AM EDT Radiology Service Progress Note PATIENT NAME: David Aldrich DATE OF SERVICE: November 27, 2023 TIME: 3:45 PM PATIENT IDENTITY VERIFICATION COMPLETED USING TWO (2) IDENTIFIERS: Name and Date of confirmedby patient verbally. FALL SCREENING: Has the patient had 2 falls in the last year or 1 fall with injury or currently using an Ambulatory Assistive Device (Walker, Cane, Wheelchair, Crutches, etc.)? No PATIENT GENDER DATA: Female. status: : No status: NO. PATIENT RELEVANT IMPLANT DATA REVIEWED: Yes PATIENT PRESENTS WITH AN IMPLANTABLE OR ATTACHED BUSINESS OFFICE TECHNICIAN: No RADIOLOGY DEPARTMENT: CT; Exam(s) Completed: Lung Screening PERIPHERAL IV DATA: Not applicable SIGNED BY: RT Ricardo(R) November 27, 2023 3:45 PM documented in this encounterAk[facility]10-14-2024 Telephone encounter Note * Telephone Encounter - Brianna Busch LPN - 11/24/2023 2:42 PM EDT Prescription Refill Information The patient has been identified by name and date of : Yes Caregiver verified no other encounters exist for this prescription request: Yes Caregiver confirmed with patient/requestor that no other refills are due, in the near future, with this provider at this time: Yes The last office visit in the department: 11/05/23 Does the patient have a future office visit with this provider/department: Yes 12/05/23 Requested Prescriptions Pending Prescriptions Disp Refills imipramine HCl (TOFRANIL) 50 mg tablet 270 tablet 0 Sig: Take 3 tablets by mouth daily at bedtime. Brianna Busch LPN November 24, 2023 2:44 PM [facility] Miscellaneous Notes* Telephone Encounter - Brianna Busch LPN - 11/24/2023 2:42 PM EDT Prescription Refill Information The patient has been identified by name and date of : Yes Caregiver verified no other encounters exist for this prescription request: Yes Caregiver confirmed with patient/requestor that no other refills are due, in the near future, with this provider at this time: Yes The last office visit in the department: 11/05/23 Does the patient have a future office visit with this provider/department: Yes 12/05/23 Requested Prescriptions Pending Prescriptions Disp Refills imipramine HCl (TOFRANIL) 50 mg tablet 270 tablet 0 Sig: Take 3 tablets by mouth daily at bedtime. Brianna Busch LPN November 24, 2023 2:44 PM documented in this encounterAk[facility]10-07-2024 Instructions* Patient Instructions* Adwoa De Leon APRN.CNP - 2023 10:[address] Lung Screen Results The CT scan that you will have done will show if you have any nodules (small spots) in your lungs that are suspicious for cancer. Around 90% of the patients who have this scan done are found to have at least one nodule. Most nodules are benign (not cancer) and of no harm to you at all. A specialistwill make a scientific evaluation about whether or not a nodule is worrisome based on its size and shape. The radiologist who will read your scan will put it into one of four categories: LUNG-RADS Category Description Overall Probability of Malignancy Recommended Follow-Up 1 Negative No nodules and definitely benign (non-cancerous nodules) Essentially 0. 1 Year - Follow-up Low dose CT 2 Benign Appearance or Behavior Nodules with a very low likelihood of becoming cancer due to size or lack of growth Less than 1% 1 Year - Follow-up Low dose CT 3 Probably Benign Probably benign finding, short term follow-up recommended 1 to 2% 6 Months - Follow-up Low dose CT 4 Suspicious Findings for which additional diagnostic testing and/or biopsy is recommended Will be calculated based on nodule characteristics. Dependent on what is seen on the exam. (3 month follow-up CT, PET-CT, or biopsy) 0 Incomplete Findings suggestive of an inflammatory or infectious process AND/OR part of the lung cannot be evaluated Additional lung cancer screening CT imaging needed AND/OR comparison with prior chest CT imaging At times, we may see something outside of the lungs on the scan that could be a health concern. Below are some of the most common findings: S Clinically Significant or Potentially Clinically Significant Findings (non lung cancer) Referral or additional imaging/labs depending on result. Approximately 10% of people receive this result. Coronary Artery Calcifications (Moderate or Severe) - Referral to cardiology for further work-up and recommendations. Thyroid Nodule - TSH level and Thyroid Ultrasound dependent on size, referral to endocrinology. Adrenal Nodule - blood work and referral to endocrinology. Others Lung Cancer Screening hotline: [phone] Lung Cancer Screening [phone] Billing Questions: or [email or web address] Specialist Providers: (Jamila Plummer PA-C; Ila Hednricks CNP; Amy Hassan CNP, Ute Lai CNP; Nel Koehler CNP; CINTIA Bowling; Adwoa De Leon CNP; Dani Santos CNP; Kaleigh Mendez CNP; Magalys Morley CNP; Clementina Soto PA-C; Sierra Lamb PA-C; Mariela Gupta CNP; Jonelle Mcdonough CNP; Lisa Tong CNP): [phone] documented in this encounterAk[facility]10-[facility] History of Present illness Narrative* Adwoa De Leon APRN.CNP - 2023 10:02 AM EDT Images from the original note were not included. LUNG SCREENING VISIT PRIMARY CARE PHYSICIAN: Lulu Swanson APRN.[employer] PULMONARY PROVIDER: none Results will be communicated via letter or electronic record if applicable. Visit Delivery: In Person Patient Visit Type: New to Screening Current or Ex-smoker? [Current Exam Type: baseline LDCT Number of Pack Years: 48 Current smoker (=0) REQUESTER: The referring provider advised the patient to have screening. HISTORY OF PRESENT ILLNESS: David Aldrich is a 62 year old Active smoker who presents for lung screening. Pt reports she had her carotid artery cleaned out for 85% blockage. Hx of left heart cath 05/2012. 07/20/2020 stress test at [facility]. 03/15/[address] Diaz. Respiratory symptoms include: SOB: Yes walking up stairs, carrying something Chest tightness: No Coughing: Yes: With mucus Clear brown Hemoptysis: No Wheezing: Yes, with laying down Fever/Chills: No Recent Respiratory Infection: No Unintentional weight loss: No Last 6 Encounter Wt Readings: Date: Wt: 2023 68.9 kg (152 lb) 11/05/2023 68.9 kg (152 lb) 10/10/2023 69 kg (152 lb 1.9 oz) 09/09/2023 68.9 kg (152 lb) 09/07/2023 70.1 kg (154 lb 8.7 oz) 08/06/2023 69 kg (152 lb 1.9 oz) ECOG PERFORMANCE STATUS: 0- Fully active, able to carry on all pre-disease performance w/o restriction. Modified Medical Research [place] Dyspnea Scale (MMRC) I get short of breath when hurrying on level ground or walking up a slight hill 1 PAST MEDICAL HISTORY Diagnosis Date Arrhythmia Bradycardia Diabetes mellitus with peripheral artery disease (HCC) 03/06/2015 H/O percutaneous left heart catheterization May, negative--[facility] History of rectal polypectomy 09/23/201712/2014: hyperplastic polyp Hyperlipidemia LDL goal < 100 01/25/2013 Hypertension Major depressive disorder, recurrent episode, unspecified Non-alcoholic fatty liver disease 10/13/2014 Other and unspecified hyperlipidemia Other chronic nonalcoholic liver disease 01/16 fatty liver disease Peripheral arterial disease (HCC) 03/06/2015 Recurrent major depressive disorder, in full remission (HCC) 03/10/2017 Snoring Type 2 diabetes mellitus with stage 3 chronic kidney disease, without long-term current use of insulin ([facility]) 05/11/2016 PAST SURGICAL HISTORY Procedure Laterality Date APPENDECTOMY 02/10/1970 ARTHROSCOPY KNEE DIAGNOSTIC W/WO SYNOVIAL BX SPX 10/19/2022 rt knee artroscopic I & D, synovectomy CAROTID ENDARTERECTOMY 06/16/2012 Right carotid COLONOSCOPY 12/12/2014 Repeat 2018 FAMILY HISTORY Problem Relation Age of Onset Heart Mother Diabetes Father other (Parkinson's disease [Other]) Brother albuterol HFA (VENTOLIN HFA) 90 mcg/actuation inhaler Inhale 2 Puffs as instructed every 4 hours asneeded for wheezing/shortness of breath. zolpidem (AMBIEN) 10 mg Take 1 tablet by mouth daily at bedtime for 30 days. cyclobenzaprine (FLEXERIL) 5 mg tablet Take 1 tablet by mouth three times a day as needed. atorvastatin (LIPITOR) 20 mg tablet Take 1 tablet by mouth once daily. blood sugar diagnostic (BLOOD GLUCOSE TEST) test strip Test blood sugar(s) 1 times daily. Dx: Type 2 DM - Controlled E11.9 Insulin: No imipramine HCl (TOFRANIL) 50 mg tablet Take 3 tablets by mouth daily at bedtime. thiothixene (NAVANE) 1 mg capsule Take 2 capsules by mouth two times a day. metFORMIN (GLUCOPHAGE) 500 mg tablet take 1 tablet by mouth once daily with dinner lisinopril (ZESTRIL) 5 mg tablet take 1 tablet by mouth once daily ibuprofen (MOTRIN) 800 mg tablet Take 1 tablet by mouth every 8 hours as needed for pain. Take withfood. buPROPion SR (WELLBUTRIN SR) 150 mg 12 hr tablet One pill by mouth once daily X 3 days, then increase to twice daily. Take second dose before 6PM. Try to stop smoking on day 5-7. ondansetron orally disintegrating (ZOFRAN ODT) 4 mg disintegrating tablet Take 1 tablet by mouth every 8 hours as needed for nausea/vomiting. omeprazole (PRILOSEC) 20 mg capsule Take 1 capsule by mouth daily before breakfast. 1/2 hr before meal. Lancets lancets Test blood sugar(s) 1 times daily. Dx: Type 2 DM - Controlled E11.9 Insulin: No polyethylene glycol 3350 (MIRALAX, GLYCOLAX) 17 gram/dose powder Use as directed for Miralax / Gatorade Bowel Prep Kit Gatorade Sports Drink Use as directed for Miralax / Gatorade Bowel Prep Kit Bisacodyl (DULCOLAX) 5 mg tab Use as directed for Miralax / Gatorade Bowel Prep Kit busPIRone (BUSPAR) 5 mg tablet Take 1 tablet by mouth three times daily as needed. Melatonin 5 mg cap Take 1 capsule by mouth once daily. Aspirin 81 mg tab Take 1 tablet by mouth once daily. Take with food. ALLERGIES Allergen Reactions Zocor [Simvastatin] Myalgia The medications and allergies were reviewed and reconciled for this patient and deemed current. Lung Cancer Risk Factors: 1.Tobacco Use: Start Age 15, Quit Age: N/A, Average packs per day 1, Pack Years 49 2. Passive Smoke Exposure: No, 3. Personal hx of malignancy: No, Type of Cancer: 4. Significant exposures (1 year or more of exposure): Other, Cleaning chemicals 5. Race: White 6. Education: Less than High School 7. BMI:Body mass index is 28.72 kg/m . Patient-entered Height: 5'1" Patient-entered Weight: 152 pounds 8. COPD: No 9. Pneumonia in the past 5 years: No 10. Is there a history of lung cancer in a first degree relative? No 11. Is there a history of lung cancer in a non-first degree relative? Yes 12. Is there a history of any other cancer in a first degree relative? No Health Maintenance Immunization History Administered Date(s) Administered COVID-19 vaccine (ELSY) 06/26/2020 influenza (IIV3) vaccine, age 6 mo - 64 yr, trivalent (AFLURIA, FLULAVAL, FLUVIRIN, FLUZONE) 12/13/2013 11/05/2023 influenza (IIV4) vaccine, age 6 mo - 64 yr, quadrivalent (AFLURIA, FLULAVAL, FLUZONE) 03/06/2015 11/14/2015 03/10/2017 12/25/2018 11/01/2019 influenza vaccine, unspecified formulation 01/25/2013 pneumococcal conjugate (PCV20) vaccine, 20 valent (PREVNAR 20) 04/29/2023 pneumococcal polysaccharide (PPV23) vaccine, 23 valent (PNEUMOVAX 23) 05/29/2009 tetanus diphtheria pertussis (Tdap) vaccine, age 7+ yr (ADACEL, BOOSTRIX) 10/09/2011 Colonoscopy: 12/12/2014 Mammogram: 05/02/2021 DATA REVIEW I have directly visualized the testing documented: none Prior Imaging: Last CT/CTA Chest/Lungs No resulted procedures found. Last CT Chest - Impression Only No resulted procedures found. Last XR Chest - Impression Only XR CHEST 2V FRONTAL/LAT Exam End: 01/24/2021 11:08 AM (Final result) Impression: IMPRESSION: No acute radiographic abnormality. ... Pulmonary Function Testing: SPIROMETRY WITH DILATOR IF OBSTRUCTED ([id number]) - ordered on 07/27/20 No textual results for order. PHYSICAL EXAM: BP 122/74 Pulse 70 Resp 15 Wt 68.9 kg (152 lb) LMP 11/13/2009 SpO2 95% BMI 28.72 kg/m Deferred ASSESSMENT and RECOMMENDATIONS: 1. Screening for lung cancer: Six year risk for lung cancer: 3.63% [email or web address] I have determined that the patient is eligible for a low dose CT based on age, absence of signs or symptoms of lung cancer, and total pack years: Yes. The patient and I engaged in shared decision making, including the use of one or more decision aids, to include benefits, harms, follow-up diagnostic testing, over-diagnosis, false positive rate, andtotal radiation exposure. The patient understands and feels comfortable with it: Yes. The patient was counseled on the importance of adherence to annual LDCT lung cancer screening, impact of comorbidities and ability or willingness to undergo diagnosis and treatment. The patient understands and feels comfortable with it:Yes. 2. Nicotine dependence: The patient was counseled on the importance of smoking cessation if currentsmoker and, if appropriate, offered additional tobacco cessation counseling services - Smoking Cessation Counseling. SMOKING CESSATION COUNSELING Smoking cessation methods including Nicotine Replacement Therapies and Behavior Modification were discussed with the patient and assistance offered. Pt was given patches in the past and did not use them. The medical conditions adversely affected by cigarette use include:COPD, Emphysema, and Lung Cancer. The patient is currently not ready to quit. I personally spent 3 minutes in counseling. The time spent in smoking cessation counseling is exclusive of any other counseling during this visit. 3. Wheezing: Sometimes at night. Denies allergies or childhood breathing problems. Elevated eosinophil count on prior CBC 09/09/2023 and 01/25/2021. Pt was given albuterol to use PRN and it is helpful, but makes her cough more. She had PFT in 2020, borderline DLCO 75% predicted, prior CT Neck 07/24/2018 shows mild upper lobe emphysema. - SPIROMETRY WITH DILATOR IF OBSTRUCTED; Future - LUNG VOLUMES; Future - LUNG DIFFUSION CAPACITY (DLCO); Future - NITRIC OXIDE, EXHALED; Future 4. Shortness of breath: see #3 Medical Decision Making: Problems: Moderate: 1+ chronic illnesses with change Data: Unique test result(s) reviewed: 2 Unique test(s) ordered: 3+ Medical Decision Making Level: 4 - Moderate Adwoa De Leon APRN.CNP NPI #: [id number] 10:04 AM documented in this encounterAkron [facility]09-[facility]24 Instructions* Patient Instructions* Lulu Swanson APRN.CNP - 11/05/2023 12:07 PM EDT Return to the lab for the urine sample -- orders are in. Return for pap. Recheck in 3 months. documented in this encounterAkron [facility]09-25-2024 History of Present illness Narrative* Lulu Swanson APRN.CNP - 11/05/2023 11:23 AM EDT This is a 62 year old female who presents today with: Patient presents with: 6 Month Exam HISTORY OF PRESENT ILLNESS: David Aldrich is a 62 year old female. Patient presents with: 6 Month Exam DM: Reports overall feeling well. Medication side effects: No. Home sugar checks: "not as often I should." Hypoglycemic spells: No. Watching diet: No. Unexpected weight loss: No. Polyuria, polydipsia: No. Vision Changes: has the start of cataracts. . Foot lesions or numbness or pain: No. HYPERLIPIDEMIA: Patient is taking medications: Yes. Patient is watching diet: No. Patient denies myalgias: Yes. Patient denies gi upset: Yes HTN: Patient is compliant with meds Yes Monitors bp at home: No. Denies side effects: Yes. Chest pain: No. Dyspnea: No. Edema: No. Palpitations: No. Syncope: No. Headache: some headaches. Dizziness: No. Mood: Doing okay. No depression/anxiety. Insomnia: Takes ambien nightly. Can't sleep without it. No side effects to the ambien. Has taken for many years. PAST MEDICAL HISTORY: PAST MEDICAL HISTORY Diagnosis Date Arrhythmia Bradycardia Diabetes mellitus with peripheral artery disease (HCC) 03/06/2015 H/O percutaneous left heart catheterization May, negative--[facility] History of rectal polypectomy 09/23/201712/2014: hyperplastic polyp Hyperlipidemia LDL goal < 100 01/25/2013 Hypertension Major depressive disorder, recurrent episode, unspecified Non-alcoholic fatty liver disease 10/13/2014 Other and unspecified hyperlipidemia Other chronic nonalcoholic liver disease 01/16 fatty liver disease Peripheral arterial disease (HCC) 03/06/2015 Recurrent major depressive disorder, in full remission (HCC) 03/10/2017 Snoring Type 2 diabetes mellitus with stage 3 chronic kidney disease, without long-term current use of insulin (HCC) 05/11/2016 PAST SURGICAL HISTORY Procedure Laterality Date APPENDECTOMY 02/10/1970 ARTHROSCOPY KNEE DIAGNOSTIC W/WO SYNOVIAL BX SPX 10/19/2022 rt knee artroscopic I & D, synovectomy CAROTID ENDARTERECTOMY 06/16/2012 Right carotid COLONOSCOPY 12/12/2014 Repeat 2018 ALLERGIES Zocor [Simvastatin] MEDICATIONS Current Outpatient Medications Medication Sig cyclobenzaprine (FLEXERIL) 5 mg tablet Take 1 tablet by mouth three times a day as needed. zolpidem (AMBIEN) 10 mg Take 1 tablet by mouth daily at bedtime for 30 days. atorvastatin (LIPITOR) 20 mg tablet Take 1 tablet by mouth once daily. blood sugar diagnostic (BLOOD GLUCOSE TEST) test strip Test blood sugar(s) 1 times daily. Dx: Type 2 DM - Controlled E11.9 Insulin: No imipramine HCl (TOFRANIL) 50 mg tablet Take 3 tablets by mouth daily at bedtime. thiothixene (NAVANE) 1 mg capsule Take 2 capsules by mouth two times a day. metFORMIN (GLUCOPHAGE) 500 mg tablet take 1 tablet by mouth once daily with dinner lisinopril (ZESTRIL) 5 mg tablet take 1 tablet by mouth once daily ibuprofen (MOTRIN) 800 mg tablet Take 1 tablet by mouth every 8 hours as needed for pain. Take withfood. buPROPion SR (WELLBUTRIN SR) 150 mg 12 hr tablet One pill by mouth once daily X 3 days, then increase to twice daily. Take second dose before 6PM. Try to stop smoking on day 5-7. ondansetron orally disintegrating (ZOFRAN ODT) 4 mg disintegrating tablet Take 1 tablet by mouth every 8 hours as needed for nausea/vomiting. omeprazole (PRILOSEC) 20 mg capsule Take 1 capsule by mouth daily before breakfast. 1/2 hr before meal. albuterol HFA (VENTOLIN HFA) 90 mcg/actuation inhaler Inhale 2 Puffs as instructed every 4 hours asneeded for wheezing/shortness of breath. Lancets lancets Test blood sugar(s) 1 times daily. Dx: Type 2 DM - Controlled E11.9 Insulin: No polyethylene glycol 3350 (MIRALAX, GLYCOLAX) 17 gram/dose powder Use as directed for Miralax / Gatorade Bowel Prep Kit Gatorade Sports Drink Use as directed for Miralax / Gatorade Bowel Prep Kit Bisacodyl (DULCOLAX) 5 mg tab Use as directed for Miralax / Gatorade Bowel Prep Kit busPIRone (BUSPAR) 5 mg tablet Take 1 tablet by mouth three times daily as needed. Melatonin 5 mg cap Take 1 capsule by mouth once daily. Aspirin 81 mg tab Take 1 tablet by mouth once daily. Take with food. No current facility-administered medications for this visit. FAMILY HISTORY Problem Relation Age of Onset Heart Mother Diabetes Father other (Parkinson's disease [Other]) Brother Social History Tobacco Use Smoking status: Every Day Current packs/day: 1.00 Average packs/day: 1 pack/day for 25.0 years (25.0 ttl pk-yrs) Types: Cigarettes Smokeless tobacco: Never Vaping Use Vaping status: Never Used Substance Use Topics Alcohol use: Not Currently Comment: quit 04/18 Drug use: No EXAM: BP 124/72 Pulse (!) 54 Resp 16 Wt 68.9 kg (152 lb) LMP 11/13/2009 SpO2 96% BMI 28.72 kg/m PHYSICAL EXAM: General Appearance: Well appearing, alert, in no acute distress, well-hydrated, well nourished.. Skin: Skin color, texture, turgor normal, no suspicious rashes or lesions. Head: Normocephalic, no masses, lesions, tenderness or abnormalities. Eyes: Anicteric sclera. Extraocular movements are intact. . Neck: Supple, no adenopathy; thyroid symmetric, normal size, no bruits. Lungs: Lungs clear to auscultation. No wheezing, rhonchi, rales.. Heart: RRR without murmur, gallop, or rubs. No ectopy. Abdomen: Abdomen soft, non-tender. Bowel sounds normal. No masses, organomegaly. Extremities: No deformities, edema, skin discoloration, clubbing or cyanosis. Good capillary refill. . Neurologic: Gait normal. Feet:Shoes and socks removed, No deformities, ulcers, calluses, normal distal pulses, and sensitiveto 10 gm [employer]ofilament ASSESSMENT/PLAN: 1. Controlled type 2 diabetes mellitus without complication, without long-term current use of insulin (HCC) - ICD9: 250.00, ICD10: E11.9 (primary diagnosis) - Controlled - Continue current medications - ALBUMIN/CREATININE RATIO, URINE 2. Medication monitoring encounter - ICD9: V58.83, ICD10: Z51.81 - TOXICOLOGY SCREEN, ROUTINE URINE - PAIN PANEL, UR QUANT - ZOLPIDEM 10 MG TABLET 3. SOB (shortness of breath) - ICD9: 786.05, ICD10: R06.02 Refill: - ALBUTEROL SULFATE HFA 90 MCG/ACTUATION AEROSOL INHALER 4. Hyperlipidemia, unspecified hyperlipidemia type - ICD9: 272.4, ICD10: E78.5 - Controlled - Continue current medications - Counseled on healthy diet and regular exercise - CONSULT TO CARDIOLOGY 6. History of chest pain - ICD9: V13.89, ICD10: Z87.898 Pt fearful of completing stress testing d/t previous bad experience. Will refer to cardiology to eval if further testing is needed. Unable to proceed with scopes until cardiac cleared. - CONSULT TO CARDIOLOGY 7. Chronic insomnia - ICD9: 780.52, ICD10: F51.04 Stable on current medication regimen. - ZOLPIDEM 10 MG TABLET 8. Encounter for immunization - ICD9: V03.89, ICD10: Z23 - INFLUENZA VACCINE, AGE 6MO-64YR, TRIVALENT (AFLURIA, FLULAVAL, FLUVIRIN, FLUZONE) 9. Primary hypertension - ICD9: 401.9, ICD10: I10 - Controlled - Continue current medications - Recommend home blood pressure monitoring, to bring results to next visit - Encouraged sodium restriction, DASH or Mediterranean diet - Recommend regular aerobic exercise 10. Recurrent major depressive disorder, in full remission (HCC) - ICD9: 296.36, ICD10: F33.42 Stable on current medication regimen. Discussed treatment plan and patient voices understanding. Patient's questions answered appropriately. Medications and potential side effects were discussed and patient voices understanding. Return to the office as scheduled or as needed for worsening/no improvement. She will return for pap. Lulu Swanson APRN.[employer] documented in this encounter[facility] Telephone encounter Note * Telephone Encounter - Lindsay Gustafson LPN - 10/20/2023 3:00 PM EDT Phoned patient and went over notes below and scheduled appt with PROCESS OPERATOR for 10/21/2023 at 840 am. [facility] Miscellaneous Notes* Telephone Encounter - Lindsay Gustafson LPN - 10/20/2023 3:00 PM EDT Phoned patient and went over notes below and scheduled appt with PROCESS OPERATOR for 10/21/2023 at 840 am. * Telephone Encounter - Lindsay Gustafson LPN - 10/18/2023 8:33 AM EDT Phoned patient phone has restrictions would not let call go to her, will try again later. * Telephone Encounter - Lulu Swanson APRN.CNP - 10/17/2023 5:25 PM EDT Needs appt please. Lulu Swanson APRN.CNP * Telephone Encounter - Cheryl Desir - 10/16/2023 11:21 AM EDT Patient called to refill rx for prednisone for sciatic nerve pain; not on current med list. Uses [facility] in [place]. Would like a call back at [phone] to know if it was approved and sent to pharmacy. documented in this encounterAkron [facility]09-07-2024 Telephone encounter Note * Telephone Encounter - Lindsay Gustafson LPN - 10/18/2023 8:33 AM EDT Phoned patient phone has restrictions would not let call go to her, will try again later. [facility] Telephone encounter Note* Telephone Encounter - Lulu Swanson APRN.CNP - 10/17/2023 5:25 PM EDT Needs appt please. Lulu Swanson APRN.CNP [facility] Telephone encounter Note* Telephone Encounter - Cheryl Desir - 10/16/2023 11:21 AM EDT Patient called to refill rx for prednisone for sciatic nerve pain; not on current med list. Uses [facility] in [place]. Would like a call back at [phone] to know if it was approved and sent to pharmacy. [facility] Telephone encounter Note* Telephone Encounter - Anya Mejia MA - 10/14/2023 4:47 PM EDT Patient was seen in Urgent care on Friday. X-rays done. X-rays were negative. Patient will followup with PCP but will keep her appointment with Dr. Quiroz until she sees her PCP. [facility] Miscellaneous Notes* Telephone Encounter - Anya Mejia MA - 10/14/2023 4:47 PM EDT Patient was seen in Urgent care on Friday. X-rays done. X-rays were negative. Patient will followup with PCP but will keep her appointment with Dr. Quiroz until she sees her PCP. * Telephone Encounter - Vy Saunders - 10/10/2023 4:25 PM EDT Pt wanted to let Dr. Quiroz know that she had a surgery with him for an infection about a year ago.She is concerned her hand pain could be gout or an infection of some sort. She is scheduled in the soonest appointment available at the time of call. documented in this encounterAkron [facility]09-03-2024 Telephone encounter Note * Telephone Encounter - Vy Aguirre - 10/14/2023 9:30 AM EDT Prescription Refill Information The patient has been identified by name and date of : Yes Caregiver verified no other encounters exist for this prescription request: Yes Caregiver confirmed with patient/requestor that no other refills are due, in the near future, with this provider at this time: Yes The last office visit in the department: 09-09-23 Does the patient have a future office visit with this provider/department: Yes Requested Prescriptions Pending Prescriptions Disp Refills cyclobenzaprine (FLEXERIL) 5 mg tablet 90 tablet 1 Sig: Take 1 tablet by mouth three times a day as needed. Vy Mitchell October 14, 2023 9:30 AM [facility] Miscellaneous Notes* Telephone Encounter - Vy Aguirre - 10/14/2023 9:30 AM EDT Prescription Refill Information The patient has been identified by name and date of : Yes Caregiver verified no other encounters exist for this prescription request: Yes Caregiver confirmed with patient/requestor that no other refills are due, in the near future, with this provider at this time: Yes The last office visit in the department: 09-09-23 Does the patient have a future office visit with this provider/department: Yes Requested Prescriptions Pending Prescriptions Disp Refills cyclobenzaprine (FLEXERIL) 5 mg tablet 90 tablet 1 Sig: Take 1 tablet by mouth three times a day as needed. Vy Mitchell October 14, 2023 9:30 AM documented in this encounterAkron [facility]08-30-2024 Telephone encounter Note * Telephone Encounter - Vy Saunders - 10/10/2023 4:25 PM EDT Pt wanted to let Dr. Quiroz know that she had a surgery with him for an infection about a year ago.She is concerned her hand pain could be gout or an infection of some sort. She is scheduled in the soonest appointment available at the time of call. [facility] Work Phone: 1(544) 603-772508-30-2024 Telephone encounter Note* Telephone Encounter - Elaine Machuca RN - 10/10/2023 3:23 PM EDT Patient notified of results and provider's instructions. Patient verbalizes understanding. Elaine Machuca RN [facility] Miscellaneous Notes* Telephone Encounter - Elaine Machuca RN - 10/10/2023 3:23 PM EDT Patient notified of results and provider's instructions. Patient verbalizes understanding. Elaine Machuca RN * Telephone Encounter - Anju Garcia APRN.CNP - 10/10/2023 2:42 PM EDT Call patient let her notify the x-ray came back normal. Did place a consult for orthopedics so she could follow-up for the pain and swelling that she is having. Patient should make an appointment as soon as possible to follow-up. Please let her know to alternate Tylenol Motrin rest ice elevate. documented in this encounterAkron [facility]08-30-2024 Telephone encounter Note * Telephone Encounter - Anju Garcia APRN.CNP - 10/10/2023 2:42 PM EDT Call patient let her notify the x-ray came back normal. Did place a consult for orthopedics so she could follow-up for the pain and swelling that she is having. Patient should make an appointment as soon as possible to follow-up. Please let her know to alternate Tylenol Motrin rest ice elevate. [facility] Work Phone: 1(937) 902-226708-30-2024 History of Present illness Narrative* Julia Martin, RT(R) - 10/10/2023 1:40 PM EDT Radiology Service Progress Note PATIENT NAME: David Aldrich DATE OF SERVICE: October 10, 2023 TIME: 1:34 PM PATIENT IDENTITY VERIFICATION COMPLETED USING TWO (2) IDENTIFIERS: Name and Date of confirmedby patient verbally. FALL SCREENING: Has the patient had 2 falls in the last year or 1 fall with injury or currently using an Ambulatory Assistive Device (Walker, Cane, Wheelchair, Crutches, etc.)? No PATIENT GENDER DATA: Female. status: : No status: NO. PATIENT RELEVANT IMPLANT DATA REVIEWED: Yes PATIENT PRESENTS WITH AN IMPLANTABLE OR ATTACHED BUSINESS OFFICE TECHNICIAN: No RADIOLOGY DEPARTMENT: General X-ray: Exam(s) Completed: Upper Extremity X- Ray(s): Hand, left PERIPHERAL IV DATA: Not applicable SIGNED BY: RT Juan(R) October 10, 2023 1:34 PM documented in this encounterAkron [facility]08-30-2024 History of Present illness Narrative* Anju Garcia APRN.[employer] - 10/10/2023 11:11 AM EDT Images from the original note were not included. Subjective Patient came in with complaints of left middle knuckle pain. Patient says she noticed it yesterday.Patient says it is swollen. Denies any numbness tingling or loss of feeling. Denies any history of gout. Patient denies any injury that she knows of. Patient says this has not happened before. Patient says it hurts more so after work. The history is provided by the patient. No technician biological health was used. Musculoskeletal Problem Came in with complaints of left knuckle pain. Patient says its at the middle finger. Patient says she has noticed some swelling. Review of Systems Constitutional: Negative. Skin: Negative. Objective Physical Exam Constitutional: Appearance: Normal appearance. Pulmonary: Effort: Pulmonary effort is normal. Musculoskeletal: Hands: Comments: Patient does have mild swelling in this area here. No discoloration noted. It is tender to touch. Range of motion within normal limits. Neurological: Mental Status: She is alert. PAST MEDICAL HISTORY No date: Arrhythmia Comment: Bradycardia 03/06/2015: Diabetes mellitus with peripheral artery disease (HCC) May,: H/O percutaneous left heart catheterization Comment: negative--[facility] 09/23/2017: History of rectal polypectomy Comment: 12/2014: hyperplastic polyp 01/25/2013: Hyperlipidemia LDL goal < 100 No date: Hypertension No date: Major depressive disorder, recurrent episode, unspecified 10/13/2014: Non-alcoholic fatty liver disease No date: Other and unspecified hyperlipidemia 01/16: Other chronic nonalcoholic liver disease Comment: fatty liver disease 03/06/2015: Peripheral arterial disease (HCC) 03/10/2017: Recurrent major depressive disorder, in full remission (HCC) No date: Snoring 05/11/2016: Type 2 diabetes mellitus with stage 3 chronic kidney disease, without long-term current use of insulin (HCC) PAST SURGICAL HISTORY 02/10/1970: APPENDECTOMY 10/19/2022: ARTHROSCOPY KNEE DIAGNOSTIC W/WO SYNOVIAL BX SPX Comment: rt knee artroscopic I & D, synovectomy 06/16/2012: CAROTID ENDARTERECTOMY Comment: Right carotid 12/12/2014: COLONOSCOPY Comment: Repeat 2018 ALLERGIES Zocor [Simvastatin] MEDICATIONS zolpidem (AMBIEN) 10 mg Take 1 tablet by mouth daily at bedtime for 30 days. atorvastatin (LIPITOR) 20 mg tablet Take 1 tablet by mouth once daily. blood sugar diagnostic (BLOOD GLUCOSE TEST) test strip Test blood sugar(s) 1 times daily. Dx: Type 2 DM - Controlled E11.9 Insulin: No imipramine HCl (TOFRANIL) 50 mg tablet Take 3 tablets by mouth daily at bedtime. cyclobenzaprine (FLEXERIL) 5 mg tablet Take 1 tablet by mouth three times a day as needed. thiothixene (NAVANE) 1 mg capsule Take 2 capsules by mouth two times a day. metFORMIN (GLUCOPHAGE) 500 mg tablet take 1 tablet by mouth once daily with dinner lisinopril (ZESTRIL) 5 mg tablet take 1 tablet by mouth once daily ibuprofen (MOTRIN) 800 mg tablet Take 1 tablet by mouth every 8 hours as needed for pain. Take withfood. buPROPion SR (WELLBUTRIN SR) 150 mg 12 hr tablet One pill by mouth once daily X 3 days, then increase to twice daily. Take second dose before 6PM. Try to stop smoking on day 5-7. ondansetron orally disintegrating (ZOFRAN ODT) 4 mg disintegrating tablet Take 1 tablet by mouth every 8 hours as needed for nausea/vomiting. albuterol HFA (VENTOLIN HFA) 90 mcg/actuation inhaler Inhale 2 Puffs as instructed every 4 hours asneeded for wheezing/shortness of breath. Lancets lancets Test blood sugar(s) 1 times daily. Dx: Type 2 DM - Controlled E11.9 Insulin: No polyethylene glycol 3350 (MIRALAX, GLYCOLAX) 17 gram/dose powder Use as directed for Miralax / Gatorade Bowel Prep Kit Gatorade Sports Drink Use as directed for Miralax / Gatorade Bowel Prep Kit Bisacodyl (DULCOLAX) 5 mg tab Use as directed for Miralax / Gatorade Bowel Prep Kit busPIRone (BUSPAR) 5 mg tablet Take 1 tablet by mouth three times daily as needed. Melatonin 5 mg cap Take 1 capsule by mouth once daily. Aspirin 81 mg tab Take 1 tablet by mouth once daily. Take with food. omeprazole (PRILOSEC) 20 mg capsule Take 1 capsule by mouth daily before breakfast. 1/2 hr before meal. FAMILY HISTORY Problem Relation Age of Onset Heart Mother Diabetes Father other (Parkinson's disease [Other]) Brother Social History Tobacco Use Smoking status: Every Day Current packs/day: 1.00 Average packs/day: 1 pack/day for 25.0 years (25.0 ttl pk-yrs) Types: Cigarettes Smokeless tobacco: Never Vaping Use Vaping status: Never Used Substance Use Topics Alcohol use: Not Currently Comment: quit 04/18 Drug use: No ASSESSMENT/PLAN: 1. Pain - ICD9: 780.96, ICD10: R52 - XR HAND GENERAL 3V PA/LAT/OBL LEFT * * *Final Report* * * DATE OF EXAM: Oct 10 2023 1:42PM WOX [id number] - XR HAND 3V PA/LAT/OBL LT / PROCEDURE REASON: Pain * * * * Physician Interpretation * * * * EXAMINATION: XR HAND 3V PA/LAT/OBL LT CLINICAL HISTORY: Left hand pain Technique: XR HAND 3V PA/LAT/OBL LT -- LEFT with 3 views on 3 images Comparison: None RESULT: No acute fracture or dislocation. Joint spaces are maintained. IMPRESSION IMPRESSION: No acute osseous abnormality Ug Designer: CARLA Transcribe Date/Time: Oct 10 2023 2:16P Dictated by : LUCIANO NOYOLA MD - CONSULT PANEL TO ORTHOPAEDICS Patient will make her own appointment for the consult. Patient will manage symptoms with [id number] medication for the time being. Patient will follow-up with Ortho. Anju Garcia APRN.CANDACE documented in this encounterAkron [facility]08-27-2024 Telephone encounter Note * Telephone Encounter - Lisa Talamantes RN - 10/07/2023 11:55 AM EDT The patient has been identified by name and date of : Yes Caregiver verified no other encounters exist for this prescription request: Yes Caregiver confirmed with patient/requestor that no other refills are due, in the near future, with this provider at this time: Yes The last office visit in the department: 09/09/2023 Does the patient have a future office visit with this provider/department: Yes 11/03/2023 Requested Prescriptions Pending Prescriptions Disp Refills zolpidem (AMBIEN) 10 mg 30 tablet 0 Sig: Take 1 tablet by mouth daily at bedtime for 30 days. Lisa Talamantes RN October 07, 2023 11:55 AM [facility]08[facility] Miscellaneous Notes* Telephone Encounter - Lisa Talamantes RN - 10/07/2023 11:55 AM EDT The patient has been identified by name and date of : Yes Caregiver verified no other encounters exist for this prescription request: Yes Caregiver confirmed with patient/requestor that no other refills are due, in the near future, with this provider at this time: Yes The last office visit in the department: 09/09/2023 Does the patient have a future office visit with this provider/department: Yes 11/03/2023 Requested Prescriptions Pending Prescriptions Disp Refills zolpidem (AMBIEN) 10 mg 30 tablet 0 Sig: Take 1 tablet by mouth daily at bedtime for 30 days. Lisa Talamantes RN October 07, 2023 11:55 AM documented in this encounterAkron [facility]08-14-2024 Telephone encounter Note * Telephone Encounter - Juliette White LPN - 09/24/2023 12:00 PM EDT Pt states she just noticed a hard lump on the back of her head, states she doesn't know if it has always been there or not. Pt states it is not tender or painful, she has not had any injury to head. Pt denies dizziness, lightheaded, visual changes or any other symptoms. States she had headaches a week or so ago but not currently. Appt made for 09/26/23 with pcp, sooner appt with another provider declined. Juliette White LPN [facility]08-14-2024 Miscellaneous Notes* Telephone Encounter - Juliette White LPN - 09/24/2023 12:00 PM EDT Pt states she just noticed a hard lump on the back of her head, states she doesn't know if it has always been there or not. Pt states it is not tender or painful, she has not had any injury to head. Pt denies dizziness, lightheaded, visual changes or any other symptoms. States she had headaches a week or so ago but not currently. Appt made for 09/26/23 with pcp, sooner appt with another provider declined. Juliette White LPN documented in this encounterAkron [facility]08-07-2024 Telephone encounter Note * Telephone Encounter - Lavon Terry LPN - 09/17/2023 2:38 PM EDT Pt notified. She verbalized understanding. Lavon Terry LPN [facility] Miscellaneous Notes* Telephone Encounter - Lavon Terry LPN - 09/17/2023 2:38 PM EDT Pt notified. She verbalized understanding. Lavon Terry LPN * Telephone Encounter - Lulu Swanson APRN.CANDACE - 09/17/2023 1:08 PM EDT I haven't seen her for this. I went ahead and sent in a prednisone burst for 5 days. It looks like she has PT scheduled. If she continues with problems, please schedule a follow-up appt. * Telephone Encounter - Elaine Machuac RN - 09/17/2023 12:00 PM EDT Patient calls and states that sciatica pain is back. Patient reports that when she was taking prednisone pain had subsided. Patient reports that pain is starting to get worse again the past couple ofdays. Patient asking if provider can send in another prescription of prednisone to pharmacy? Answer Assessment - Initial Assessment Questions 1. MAIN CONCERN OR SYMPTOM: Right Sciatica Issues 2. ONSET: Was seen on 09/08; Patient states that was prescribed steroids. Patient did not have pain while on steroid. Patient states that pain has come back for the past couple days. 3. [id number]: It is better, but feels like it is coming on when she is walking a lot and standing in one place. Patient's pain is located rear end down to right ankle and bottom of foot. 4. VISIT DATE: " 09/09/2023 5. VISIT DOCTOR: "What is the name of the doctor taking care of you now?" Lulu Swanson CNP 6. VISIT DIAGNOSIS: Sciatica 7. VISIT TREATMENT: None 8. VISIT MEDICINES: Prednisone Taper 9. NEXT APPOINTMENT: Denies 10. PAIN: Patient states that when it is really hurting it is a 7 or 8 11. FEVER: Denies 12. OTHER SYMPTOMS: Denies Protocols used: Recent Medical Visit for Injury Follow-up [id number] documented in this encounterAkron [facility]08-07-2024 Telephone encounter Note * Telephone Encounter - Lulu Swanson APRN.CNP - 09/17/2023 1:08 PM EDT I haven't seen her for this. I went ahead and sent in a prednisone burst for 5 days. It looks like she has PT scheduled. If she continues with problems, please schedule a follow-up appt. [facility] Telephone encounter Note* Telephone Encounter - Elaine Machuca RN - 09/17/2023 12:00 PM EDT Patient calls and states that sciatica pain is back. Patient reports that when she was taking prednisone pain had subsided. Patient reports that pain is starting to get worse again the past couple ofdays. Patient asking if provider can send in another prescription of prednisone to pharmacy? Answer Assessment - Initial Assessment Questions 1. MAIN CONCERN OR SYMPTOM: Right Sciatica Issues 2. ONSET: Was seen on 09/08; Patient states that was prescribed steroids. Patient did not have pain while on steroid. Patient states that pain has come back for the past couple days. 3. [id number]: It is better, but feels like it is coming on when she is walking a lot and standing in one place. Patient's pain is located rear end down to right ankle and bottom of foot. 4. VISIT DATE: " 09/09/2023 5. VISIT DOCTOR: "What is the name of the doctor taking care of you now?" Lulu wSanson CNP 6. VISIT DIAGNOSIS: Sciatica 7. VISIT TREATMENT: None 8. VISIT MEDICINES: Prednisone Taper 9. NEXT APPOINTMENT: Denies 10. PAIN: Patient states that when it is really hurting it is a 7 or 8 11. FEVER: Denies 12. OTHER SYMPTOMS: Denies Protocols used: Recent Medical Visit for Injury Follow-up [id number] [facility] Telephone encounter Note* Telephone Encounter - Vy Aguirre - 09/12/2023 2:15 PM EDT Prescription Refill Information The patient has been identified by name and date of : Yes Caregiver verified no other encounters exist for this prescription request: Yes Caregiver confirmed with patient/requestor that no other refills are due, in the near future, with this provider at this time: Yes The last office visit in the department: 09-09-23 Does the patient have a future office visit with this provider/department: Yes Requested Prescriptions Pending Prescriptions Disp Refills atorvastatin (LIPITOR) 20 mg tablet 90 tablet 3 Sig: Take 1 tablet by mouth once daily. Vy Mitchell September 12, 2023 2:16 PM [facility] Miscellaneous Notes* Telephone Encounter - Vy Aguirre - 09/12/2023 2:15 PM EDT Prescription Refill Information The patient has been identified by name and date of : Yes Caregiver verified no other encounters exist for this prescription request: Yes Caregiver confirmed with patient/requestor that no other refills are due, in the near future, with this provider at this time: Yes The last office visit in the department: 09-09-23 Does the patient have a future office visit with this provider/department: Yes Requested Prescriptions Pending Prescriptions Disp Refills atorvastatin (LIPITOR) 20 mg tablet 90 tablet 3 Sig: Take 1 tablet by mouth once daily. Vy Mitchell September 12, 2023 2:16 PM documented in this encounterAkron [facility]07-31-2024 Telephone encounter Note * Telephone Encounter - Mima Dee LPN - 09/10/2023 12:59 PM EDT Patient states that she was feeling fine. She was not fasting. Asking for a refill on her test strips. She will start monitoring her sugars more at home. She does not feel like she is having any low episodes though. [facility] Miscellaneous Notes* Telephone Encounter - Mima Dee LPN - 09/10/2023 12:59 PM EDT Patient states that she was feeling fine. She was not fasting. Asking for a refill on her test strips. She will start monitoring her sugars more at home. She does not feel like she is having any low episodes though. * Telephone Encounter - Alvin Mckeon MD - 09/10/2023 12:48 PM EDT Labs stable. A1c was good. Her glucose was only 67 but was fasting. Call if any low sugar spells. documented in this encounterAkron [facility]07-31-2024 Telephone encounter Note * Telephone Encounter - Alvin Mckeon MD - 09/10/2023 12:48 PM EDT Labs stable. A1c was good. Her glucose was only 67 but was fasting. Call if any low sugar spells. [facility] Telephone encounter Note* Telephone Encounter - Roxanne Triplett - 09/10/2023 10:38 AM EDT Patient has no showed her cardiac testing appts set for 09/07... Unable to sent clearance or discuss dates. Patient is aware to reschedule and complete these appointments prior to being able to proceed with scopes Roxanne Triplett Fitter Tacker [facility]-20[facility] Miscellaneous Notes* Telephone Encounter - Roxanne Triplett - 09/10/2023 10:38 AM EDT Patient has no showed her cardiac testing appts set for 09/07... Unable to sent clearance or discuss dates. Patient is aware to reschedule and complete these appointments prior to being able to proceed with scopes Roxanne Triplett Fitter Tacker * Telephone Encounter - Roxanne Triplett - 09/01/2023 1:28 PM EDT Spoke to Dr. Lanza in regards to patient screening colonoscopy to be done in [facility]. Per Dr. Lanza patient to complete all cardiac testing. Office to send clearance forms upon completion. Dr. Lanza will then advise of patient can be done with or without MAC anesthesia. Patient not to schedule until clearance from PCP and surgeon Roxanne Triplett Fitter Tacker documented in this encounterAkron [facility] History of Present illness Narrative* Ana Paula Pace PA-C - 09/09/2023 2:23 PM EDT 09/09/2023 Patient presents with: Same Day Appointment: right leg pain goes down leg , see phone encounter SUBJECTIVE: This is a 62 year old that is here today for Complaint(s) of right leg pain that startsin the right buttock region and radiates down the leg to the heel. Now more painful int he right box and heel. No previus history of sciatica or other low back pain, back surgery. Occasional tingling in the leg patient., mostly int he right distal LE/ankle. Taking advil without much relief. Christine was seen in , and they decided against prednisone due to type 2 DM. She is very well controlled last A1C was 6.0. Advil is not helping. Has muscle relaxers and they also do not seem to be helping. Denies fever/chills, dysuria, bowel or bladder incontinence, saddle anesthesia, pain waking her at night. Unplanned weight loss. + everyday smoker. No recent travel. Denies chest pain, SOB, She was having some episodes when she was seen in April of intermittent chest pain-referred for stress testing. She cancelled her testing this week because of a previous reaction to her last stress test where she felt like she couldn't breath. She would like to see cardiology and discuss first. Sheis not having any chest pain, SOB, pleuritic chest pain, leg swelling, calf pain, dizziness, nausea, vomiting. PAST MEDICAL HISTORY Diagnosis Date Arrhythmia Bradycardia Diabetes mellitus with peripheral artery disease (HCC) 03/06/2015 H/O percutaneous left heart catheterization May, negative--[facility] History of rectal polypectomy 09/23/201712/2014: hyperplastic polyp Hyperlipidemia LDL goal < 100 01/25/2013 Hypertension Major depressive disorder, recurrent episode, unspecified Non-alcoholic fatty liver disease 10/13/2014 Other and unspecified hyperlipidemia Other chronic nonalcoholic liver disease 01/16 fatty liver disease Peripheral arterial disease (HCC) 03/06/2015 Recurrent major depressive disorder, in full remission (HCC) 03/10/2017 Snoring Type 2 diabetes mellitus with stage 3 chronic kidney disease, without long-term current use of insulin (HCC) 05/11/2016 ALLERGIES Zocor [Simvastatin] MEDICATIONS Current Outpatient Medications Medication Sig zolpidem (AMBIEN) 10 mg Take 1 tablet by mouth daily at bedtime for 30 days. imipramine HCl (TOFRANIL) 50 mg tablet Take 3 tablets by mouth daily at bedtime. cyclobenzaprine (FLEXERIL) 5 mg tablet Take 1 tablet by mouth three times a day as needed. thiothixene (NAVANE) 1 mg capsule Take 2 capsules by mouth two times a day. metFORMIN (GLUCOPHAGE) 500 mg tablet take 1 tablet by mouth once daily with dinner lisinopril (ZESTRIL) 5 mg tablet take 1 tablet by mouth once daily ibuprofen (MOTRIN) 800 mg tablet Take 1 tablet by mouth every 8 hours as needed for pain. Take withfood. atorvastatin (LIPITOR) 20 mg tablet Take 1 tablet by mouth once daily. buPROPion SR (WELLBUTRIN SR) 150 mg 12 hr tablet One pill by mouth once daily X 3 days, then increase to twice daily. Take second dose before 6PM. Try to stop smoking on day 5-7. ondansetron orally disintegrating (ZOFRAN ODT) 4 mg disintegrating tablet Take 1 tablet by mouth every 8 hours as needed for nausea/vomiting. omeprazole (PRILOSEC) 20 mg capsule Take 1 capsule by mouth daily before breakfast. 1/2 hr before meal. albuterol HFA (VENTOLIN HFA) 90 mcg/actuation inhaler Inhale 2 Puffs as instructed every 4 hours asneeded for wheezing/shortness of breath. blood sugar diagnostic (BLOOD GLUCOSE TEST) test strip Test blood sugar(s) 1 times daily. Dx: Type 2 DM - Controlled E11.9 Insulin: No Lancets lancets Test blood sugar(s) 1 times daily. Dx: Type 2 DM - Controlled E11.9 Insulin: No polyethylene glycol 3350 (MIRALAX, GLYCOLAX) 17 gram/dose powder Use as directed for Miralax / Gatorade Bowel Prep Kit Gatorade Sports Drink Use as directed for Miralax / Gatorade Bowel Prep Kit Bisacodyl (DULCOLAX) 5 mg tab Use as directed for Miralax / Gatorade Bowel Prep Kit busPIRone (BUSPAR) 5 mg tablet Take 1 tablet by mouth three times daily as needed. Melatonin 5 mg cap Take 1 capsule by mouth once daily. Aspirin 81 mg tab Take 1 tablet by mouth once daily. Take with food. No current facility-administered medications for this visit. SOCIAL HISTORY Social History Tobacco Use Smoking status: Every Day Packs/day: 1.00 Years: 25.00 Additional pack years: 0.00 Total pack years: 25.00 Types: Cigarettes Smokeless tobacco: Never Vaping Use Vaping Use: Never used Substance Use Topics Alcohol use: Not Currently Comment: quit 04/18 Drug use: No REVIEW OF SYSTEMS See HPI OBJECTIVE: BP 120/70 (BP Site: Left Arm, BP Position: Sitting, BP Cuff Size: Regular Adult) Pulse 90 Resp 12 Ht 154.9 cm (5' 1") Wt 68.9 kg (152 lb) LMP 11/13/2009 SpO2 97% BMI 28.72 kg/m APPEARANCE Well appearing, alert, in no acute distress, well-hydrated, well nourished. HEART RRR with normal S1 and S2 LUNG clear to auscultation BACK: Normal exam, normal ROM. No vertebral TTP. + right SLR. Normal ROM. EXTREMITIES Extremities normal, No deformities, No skin discoloration, No edema, and Normal pulses bilaterally. Strength intact LE WEI. No erythema or warmth, no rash. No calf TTP. Negative Homans'. ASSESSMENT/PLAN: 1. Sciatica, right side - ICD9: 724.3, ICD10: M54.31 (primary diagnosis) Discussed prednisone and BG readings-she is well controlled. Advil is not working, will try a shortcourse of prednisone. F/u if not improving, can schedule with PT-order placed. Consider XR lumbar if not improving or worsening. Reviewed red flags and when to seek care sooner in ED. - CONSULT TO PHYSICAL THERAPY - METHYLPREDNISOLONE 4 MG TABLETS IN A DOSE PACK Negative Sally's, no pleuritic chest pain, pain is consistent with radiculopathy. No LE edema. Has flexeril at home. 2. History of chest pain - ICD9: V13.89, ICD10: Z87.898 Reviewed red flags and when to seek care sooner in ED - CONSULT TO CARDIOLOGY The patient indicates understanding of these issues and agrees with the plan. Ana Paula Pace PA-C 09/09/2023 documented in this encounterAkron [facility]07-30-2024 Telephone encounter Note * Telephone Encounter - Lavon Terry LPN - 09/09/2023 12:01 PM EDT GIN 04/29/23. No showed appt's on 07/14/23 and 08/07/23. NOV with PCP 11/03/23. [facility] Miscellaneous Notes* Telephone Encounter - Lavon Terry LPN - 09/09/2023 12:01 PM EDT GIN 04/29/23. No showed appt's on 07/14/23 and 08/07/23. NOV with PCP 11/03/23. * Telephone Encounter - Aarti Reyes - 09/09/2023 11:49 AM EDT Patient requesting medication that is . zolpidem (AMBIEN) 10 mg () Patient states she was seen in June for medication follow up. Last office visit was 08/06/23 for pain. Future appointment scheduled: Yes PHARMACY: [facility] in [place]. documented in this encounterAkron Children[facility] Hospital07-30-2024 Telephone encounter Note * Telephone Encounter - Aarti Reyes - 09/09/2023 11:49 AM EDT Patient requesting medication that is . zolpidem (AMBIEN) 10 mg () Patient states she was seen in June for medication follow up. Last office visit was 08/06/23 for pain. Future appointment scheduled: Yes PHARMACY: [facility] in [place]. [facility] Telephone encounter Note* Telephone Encounter - Radha Fox RN - 09/08/2023 12:43 PM EDT 1) Pt called in as she had been scheduled for an appt today at 3 pm with Hazel Celis to be seen for right lower back and leg pain. Pt did not mention that she was seen in [facility] for this yesterday the . [facility]. Pt states she is having right lower back pain that radiates into her rear end, the side of her right hip and down her right leg to her ankle. States when she is working and on her feet a lot, she notices some slight swelling in her right ankle. Denies anyswelling at this time. Denies any numbness, tingling, weakness or loss of bowel or bladder control.States it is a 10/10 when she gets up and has to walk. At this moment, it is a 6/10. Pt does not appear or sound to be in severe pain. Pt wanted to see if she could still see someone this afternoon. While looking for an appt, pt states it can wait til tomorrow if someone has an appt then. Offered 1120, but pt requested later appt around 3 pm. Appt booked with Ana Paula Pace for 240 pm. 2) Pt also states that she did not go to her cardiac workup/stress test this morning. She was afraid to as she states she had a previous bad experience with a stress test where she felt her throat was closing off and she couldn't breath. Pt states that Lulu Swanson was going to order something else for her but not sure of what test. Phone encounter from 08/31 shows that she was going to schedulea consult to cardiology but did not as pt said she was going to go ahead and try the test. Pt decided not to go. Pt would like to proceed with something other than the stress test. Pt instructed to discuss with Ana Paula tomorrow as maybe she can put the consult in to cardiology. Pt seeing Ana Paula tomorrow at 240 pm. Went over arrival time of 225 pm several times. [facility] Miscellaneous Notes* Telephone Encounter - Radha Fox RN - 09/08/2023 12:43 PM EDT 1) Pt called in as she had been scheduled for an appt today at 3 pm with Hazel Celis to be seen for right lower back and leg pain. Pt did not mention that she was seen in [facility] for this yesterday the . Noted per [facility] chart review. Pt states she is having right lower back pain that radiates into her rear end, the side of her right hip and down her right leg to her ankle. States when she is working and on her feet a lot, she notices some slight swelling in her right ankle. Denies anyswelling at this time. Denies any numbness, tingling, weakness or loss of bowel or bladder control.States it is a 10/10 when she gets up and has to walk. At this moment, it is a 6/10. Pt does not appear or sound to be in severe pain. Pt wanted to see if she could still see someone this afternoon. While looking for an appt, pt states it can wait til tomorrow if someone has an appt then. Offered 1120, but pt requested later appt around 3 pm. Appt booked with Ana Paula Pace for 240 pm. 2) Pt also states that she did not go to her cardiac workup/stress test this morning. She was afraid to as she states she had a previous bad experience with a stress test where she felt her throat was closing off and she couldn't breath. Pt states that Lulu Swanson was going to order something else for her but not sure of what test. Phone encounter from 08/31 shows that she was going to schedulea consult to cardiology but did not as pt said she was going to go ahead and try the test. Pt decided not to go. Pt would like to proceed with something other than the stress test. Pt instructed to discuss with Ana Paula tomorrow as maybe she can put the consult in to cardiology. Pt seeing Ana Paula tomorrow at 240 pm. Went over arrival time of 225 pm several times. documented in this encounterAkron Children'S Hospital07-28-2024 Instructions* Patient Instructions* Juan Jiménez APRN.[employer] - 09/07/2023 10:09 AM EDT Low Back Pain-Exercises What exercise can I do to reduce low back pain? Pelvic tilt Lie on your back with your knees bent. In this relaxed position, the small of your back will not betouching the floor. Tighten your abdominal muscles so that the small of your back presses flat against the floor. Hold for five seconds then relax. Repeat three times and gradually build to 10 repetitions. Oeyro-ka-kftgr Lie on your back with both legs straight. Bring one knee up to your chest, pressing the small of your back into the floor (pelvic tilt). Hold for five seconds and repeat five times. Repeat exercise on other leg. Back stretch Lie on your stomach. Use your arms to push your upper body off the floor. Hold for five seconds. Let your back relax and sag. Repeat 10 times. Discontinue any exercise that produces or increases pain in the leg. Copyright [id number] The . All rights reserved. This information is provided by the [facility] and is not intended to replace the medical advice of your doctor or health care provider. Please consult your health care provider for advice about a specific medical condition. For additional written health information, please contact the [facility] at the [facility] or toll-free extension [phone] or visit [email or web address] This document was last reviewed on: 2004 index#9122 SCIATICA: Your exam shows you have sciatica, a condition most often seen in patients with disc disease of thelower back. Sciatica causes pain to radiate from the lower back or buttock area down the leg. It results from pressure on nerve roots coming out of the spine when a disc deteriorates and pushes to one side. Often there is a history of back problems. In most cases sciatica improves greatly with conservative treatment. Most patients with it are completely better after 2-4 weeks of bed rest and other supportive care. Bed rest reduces the disc pressure greatly; sitting is the worst position since the pressure on the disc is over 5 times greater than it is while lying down. You should avoid bending, lifting, and all other activities which make the problem worse. After the pain improves, you may continue with normal activity, taking brief periods for bed rest throughout the day until you are back to normal. Aspirin, ibuprofen, or other anti-inflammatory drugs are often used to help control pain. Muscle relaxants may help by relieving spasm and providing mild sedation. Cold or heat therapy and massage may also give significant relief. Spinal manipulation is not recommended because it can increase the degree of disc protrusion. Surgery is reserved for patients that do not improve with conservative treatment, or who have signs of severe nerve root pressure. You should see your doctor for follow up care as recommended. A program for back injury rehabilitation with stretching and strengthening exercises is an important part of management. Please call yourdoctor, a back specialist, or the emergency room right away if you notice increased pain, weakness,or numbness in your legs, or if you have any difficulty with bladder or bowel control. documented in this encounterAkron Children'S Hospital07-28-2024 History of Present illness Narrative* Juan Jiménez APRN.CNP - 09/07/2023 10:02 AM EDT This note was created using itzatriter. Subjective David Aldrich is a 62 year old female. HPI Pt complains of right lower back pain that radiates into her right leg. 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 No previous episodes. Review of Systems Constitutional: Negative for fatigue and fever. Musculoskeletal: Positive for back pain. Negative for gait problem. Objective BP 140/76 Pulse 75 Temp 36.3 C (97.3 F) Resp 21 Wt 70.1 kg (154 lb 8.7 oz) LMP 11/13/2009 SpO2 96% BMI 29.20 kg/m Physical Exam Vitals and nursing note reviewed. Constitutional: General: She is not in acute distress. Appearance: Normal appearance. She is not ill-appearing. HENT: Head: Normocephalic. Mouth/Throat: Mouth: Mucous membranes are moist. Pulmonary: Effort: Pulmonary effort is normal. Musculoskeletal: General: Normal range of motion. Cervical back: Normal range of motion. Comments: No calf or popliteal tenderness Skin: General: Skin is warm and dry. Neurological: General: No focal deficit present. Mental Status: She is alert. Psychiatric: Mood and Affect: Mood normal. Behavior: Behavior normal. Assessment and Plan ASSESSMENT/PLAN: 1. Sciatic nerve pain, right - ICD9: 724.3, ICD10: M54.31 As patient is diabetic no steroids were prescribed. She currently is using Flexeril and I recommended continuing this. She will continue with ibuprofen and/or Tylenol we did discuss stretching and low back exercises along with using a lumbar support roll. We also talked about good body mechanics when lifting. Juan Jiménez APRN.CNP documented in this encounterAkron Children'S Hospital07-24-2024 Telephone encounter Note * Telephone Encounter - Lulu Swanson APRN.CNP - 09/03/2023 3:47 PM EDT Noted. Lulu Swanson APRN.CNP [facility] Miscellaneous Notes* Telephone Encounter - Lulu Swanson APRN.CNP - 09/03/2023 3:47 PM EDT Noted. Lulu Swanson APRN.CANDACE * Telephone Encounter - Patsy Kaplan LPN - 09/03/2023 8:11 AM EDT Spoke with pt and advised her of Lulu's message. Pt verbalizes understanding. Pt is just nervous. Pt questioning what she should do. Advised pt she could try the stress test and if having any issues she can let the tech know and they can stop the test. Pt is going to just try to do the stress test on Mon as scheduled. Patsy Kaplan LPN * Telephone Encounter - Lisa Talamantes RN - 09/01/2023 2:39 PM EDT Called patient and no answer. Patients voicemail was full. Will need to call back later. Lisa Talamantes, ZACH * Telephone Encounter - Lulu Swanson APRN.CNP - 09/01/2023 1:52 PM EDT I can certainly put an order in to see cardiology instead. I looked at the previous stress testing results and they did not mention any issues/complications with the testing. The test, though, will definitely increase heart rate as if exercising heavily -- so she may have noticed that. Let me know how she would like to proceed. Lulu Swanson APRN.CANDACE * Telephone Encounter - Elaine Machuca RN - 09/01/2023 1:28 PM EDT Patient calls and states that she had a stress test at [facility] in 2020. Patient reports that during thetesting she had felt like she was choking and that her throat closed off. Patient states that she could not breath. Patient is supposed to have nuclear stress test on 09/08/2023. Patient is unsure ifshe should be getting stress test done. Patient's colonoscopy was not done this morning. Patient forgot about colonoscopy. General Surgery nurse is going to check with Dr. Lanza how he wants to proceed with colonoscopy since patient is supposed to be having a stress test done. Patient is still having issues with shortness of breath (patient is a smoker). Patient states that she has not had issues of chest pain. Patient states that in 2008 in [place] they put a dye in her vein to see if arteries were clogged. Please review and advise, Elaine Machuca RN documented in this encounterAkron Children'[facility] Hospital07-24-2024 Telephone encounter Note * Telephone Encounter - Patsy Kaplan LPN - 09/03/2023 8:11 AM EDT Spoke with pt and advised her of Lulu's message. Pt verbalizes understanding. Pt is just nervous. Pt questioning what she should do. Advised pt she could try the stress test and if having any issues she can let the tech know and they can stop the test. Pt is going to just try to do the stress test on Fri as scheduled. Patsy Kaplan LPN [facility] Telephone encounter Note* Telephone Encounter - Gloria Zepeda RN - 09/02/2023 11:29 AM EDT Called and reviewed the below instructions with the patient. Gloria Zepeda RN You are scheduled for a stress test on 09/08/23 at 8am. This stress test will appear as 3 appointments on your schedule. You may get multiple reminder calls, but please arrive at the earliest scheduled appointment. Please follow below instructions: *NOTHING BY MOUTH 4 HOURS prior to this test. (you may have sips of water) *NO CAFFEINE FOR 24 HOURS PRIOR TO TESTING (including TEA even decaf, COFFEE- even decaf, CHOCOLATE, DIEGO- even decaf) *Do NOT take MEDICATIONS CONTAINING CAFFEINE/XANTHINE for 24 HOURS prior to testing: Theophylline, Trental, Excedrin, Anacin, Goody Powders, No Doz, Vivarin, Midol, Diurex, Fiorinal, Fioricet, Esgic (butalbital) *Do NOT take Calcium Channel Blockers 24 HOURS prior to test. *Do NOT take Beta blockers 24 HOURS prior to test UNLESS your doctor tells you otherwise. *Do NOT use the following medications 48 HOURS prior to this test: Viagra(Sildenafil citrate), Cialis(Tadalafil), Vardenafil (Levitra, Stanyx), Avanfil (Stendra). *Do not take any of these meds prior to test unless provider directs you otherwise; Nitroglycerine (ex:Deponit, Nitrostat) Isosorbide (ex:Isordil, Sorbitrate,Imdur,Ismo). Medications on your list you should hold for 24 HOURS: None *All other medications may be taken as you normally would. *Guidelines for Diabetics: If you take insulin to control your blood sugar, ask you physician what amount you should take the day of the test. If you take pills to control blood sugar, on the day of the test, do NOT take them until AFTER the test. *FAILURE TO FOLLOW THESE INSTRUCTIONS WILL RESULT IN HAVING TO RESCHEDULE THE TEST. *If you use an inhaler, bring it along with you just in case *THIS TEST MAY TAKE UP TO 3 HOURS TO COMPLETE. Please check in on the first floor at Radiology: [address]; [place] [address] * If you need to cancel or reschedule this test or have any questions regarding this test, please call [phone]. [facility] Miscellaneous Notes* Telephone Encounter - Gloria Zepeda RN - 09/02/2023 11:29 AM EDT Called and reviewed the below instructions with the patient. Gloria Zepeda RN You are scheduled for a stress test on 09/08/23 at 8am. This stress test will appear as 3 appointments on your schedule. You may get multiple reminder calls, but please arrive at the earliest scheduled appointment. Please follow below instructions: *NOTHING BY MOUTH 4 HOURS prior to this test. (you may have sips of water) *NO CAFFEINE FOR 24 HOURS PRIOR TO TESTING (including TEA even decaf, COFFEE- even decaf, CHOCOLATE, DIEGO- even decaf) *Do NOT take MEDICATIONS CONTAINING CAFFEINE/XANTHINE for 24 HOURS prior to testing: Theophylline, Trental, Excedrin, Anacin, Goody Powders, No Doz, Vivarin, Midol, Diurex, Fiorinal, Fioricet, Esgic (butalbital) *Do NOT take Calcium Channel Blockers 24 HOURS prior to test. *Do NOT take Beta blockers 24 HOURS prior to test UNLESS your doctor tells you otherwise. *Do NOT use the following medications 48 HOURS prior to this test: Viagra(Sildenafil citrate), Cialis(Tadalafil), Vardenafil (Levitra, Stanyx), Avanfil (Stendra). *Do not take any of these meds prior to test unless provider directs you otherwise; Nitroglycerine (ex:Deponit, Nitrostat) Isosorbide (ex:Isordil, Sorbitrate,Imdur,Ismo). Medications on your list you should hold for 24 HOURS: None *All other medications may be taken as you normally would. *Guidelines for Diabetics: If you take insulin to control your blood sugar, ask you physician what amount you should take the day of the test. If you take pills to control blood sugar, on the day of the test, do NOT take them until AFTER the test. *FAILURE TO FOLLOW THESE INSTRUCTIONS WILL RESULT IN HAVING TO RESCHEDULE THE TEST. *If you use an inhaler, bring it along with you just in case *THIS TEST MAY TAKE UP TO 3 HOURS TO COMPLETE. Please check in on the first floor at Radiology: [address]; [place] [address] * If you need to cancel or reschedule this test or have any questions regarding this test, please call [phone]. documented in this encounterAkron Children'S Hospital07-22-2024 Telephone encounter Note * Telephone Encounter - Lisa Talamantes RN - 09/01/2023 2:39 PM EDT Called patient and no answer. Patients voicemail was full. Will need to call back later. Lisa Talamantes RN [facility] Telephone encounter Note* Telephone Encounter - Lulu Swanson APRN.CNP - 09/01/2023 1:52 PM EDT I can certainly put an order in to see cardiology instead. I looked at the previous stress testing results and they did not mention any issues/complications with the testing. The test, though, will definitely increase heart rate as if exercising heavily -- so she may have noticed that. Let me know how she would like to proceed. Lulu Swanson APRN.[employer] [facility]07-22-2024 Telephone encounter Note* Telephone Encounter - Elaine Machuca RN - 09/01/2023 1:28 PM EDT Patient calls and states that she had a stress test at [facility] in 2020. Patient reports that during thetesting she had felt like she was choking and that her throat closed off. Patient states that she could not breath. Patient is supposed to have nuclear stress test on 09/08/2023. Patient is unsure ifshe should be getting stress test done. Patient's colonoscopy was not done this morning. Patient forgot about colonoscopy. General Surgery nurse is going to check with Dr. Lanza how he wants to proceed with colonoscopy since patient is supposed to be having a stress test done. Patient is still having issues with shortness of breath (patient is a smoker). Patient states that she has not had issues of chest pain. Patient states that in 2008 in [place] they put a dye in her vein to see if arteries were clogged. Please review and advise, Elaine Machuca RN [facility]07-22-2024 Telephone encounter Note* Telephone Encounter - Roxanne Triplett - 09/01/2023 1:28 PM EDT Spoke to Dr. Lanza in regards to patient screening colonoscopy to be done in [facility]. Per Dr. Lanza patient to complete all cardiac testing. Office to send clearance forms upon completion. Dr. Lanza will then advise of patient can be done with or without MAC anesthesia. Patient not to schedule until clearance from PCP and surgeon Roxanne Triplett Fitter Tacker [facility]07-10-2024 History of Present illness Narrative* MarcelinoOlgaew - 08/20/2023 7:04 AM EDT FOLLOW UP PODIATRIC OFFICE VISIT Chief Complaint: This 62 year old who presents for follow up:painful porokeratosis of b/l feet Patient presents to clinic for follow-up painful porokeratosis of b/l feet Has faired well with debridement and acid application in the past Here for debridement Does complain of elongated hallux toenail with difficulty cutting. No pain in toenail PAIN EVALUATION 08/19/2023 0952 Pain Level: 5 Pain Location: Other: See Comment Description: Sore Duration Units: Months Frequency: Intermittent Intervention/Comfort measure: Reposition;Relaxation Hemoglobin A1C Date Value Ref Range Status 09/16/2022 6.0 (H) 4.3 - 5.6 % Final Comment: [place] [employer] guidelines indicate that patients with HgbA1c in the range 5.7-6.4% are at increased risk for development of diabetes, and intervention by lifestyle modification may be beneficial. HgbA1c greater or equal to 6.5% is considered diagnostic of diabetes. PCP: Lulu Swanson APRN.[employer] PAST MEDICAL HISTORY Diagnosis Date Arrhythmia Bradycardia Diabetes mellitus with peripheral artery disease (HCC) 03/06/2015 H/O percutaneous left heart catheterization May, negative--[facility] History of rectal polypectomy 09/23/201712/2014: hyperplastic polyp Hyperlipidemia LDL goal < 100 01/25/2013 Hypertension Major depressive disorder, recurrent episode, unspecified Non-alcoholic fatty liver disease 10/13/2014 Other and unspecified hyperlipidemia Other chronic nonalcoholic liver disease 01/16 fatty liver disease Peripheral arterial disease (HCC) 03/06/2015 Recurrent major depressive disorder, in full remission (HCC) 03/10/2017 Snoring Type 2 diabetes mellitus with stage 3 chronic kidney disease, without long-term current use of insulin (HCC) 05/11/2016 Current Outpatient Medications Medication Sig imipramine HCl (TOFRANIL) 50 mg tablet Take 3 tablets by mouth daily at bedtime. zolpidem (AMBIEN) 10 mg Take 1 tablet by mouth daily at bedtime for 30 days. cyclobenzaprine (FLEXERIL) 5 mg tablet Take 1 tablet by mouth three times a day as needed. thiothixene (NAVANE) 1 mg capsule Take 2 capsules by mouth two times a day. metFORMIN (GLUCOPHAGE) 500 mg tablet take 1 tablet by mouth once daily with dinner lisinopril (ZESTRIL) 5 mg tablet take 1 tablet by mouth once daily ibuprofen (MOTRIN) 800 mg tablet Take 1 tablet by mouth every 8 hours as needed for pain. Take withfood. atorvastatin (LIPITOR) 20 mg tablet Take 1 tablet by mouth once daily. buPROPion SR (WELLBUTRIN SR) 150 mg 12 hr tablet One pill by mouth once daily X 3 days, then increase to twice daily. Take second dose before 6PM. Try to stop smoking on day 5-7. ondansetron orally disintegrating (ZOFRAN ODT) 4 mg disintegrating tablet Take 1 tablet by mouth every 8 hours as needed for nausea/vomiting. albuterol HFA (VENTOLIN HFA) 90 mcg/actuation inhaler Inhale 2 Puffs as instructed every 4 hours asneeded for wheezing/shortness of breath. blood sugar diagnostic (BLOOD GLUCOSE TEST) test strip Test blood sugar(s) 1 times daily. Dx: Type 2 DM - Controlled E11.9 Insulin: No Lancets lancets Test blood sugar(s) 1 times daily. Dx: Type 2 DM - Controlled E11.9 Insulin: No polyethylene glycol 3350 (MIRALAX, GLYCOLAX) 17 gram/dose powder Use as directed for Miralax / Gatorade Bowel Prep Kit Gatorade Sports Drink Use as directed for Miralax / Gatorade Bowel Prep Kit Bisacodyl (DULCOLAX) 5 mg tab Use as directed for Miralax / Gatorade Bowel Prep Kit busPIRone (BUSPAR) 5 mg tablet Take 1 tablet by mouth three times daily as needed. Melatonin 5 mg cap Take 1 capsule by mouth once daily. Aspirin 81 mg tab Take 1 tablet by mouth once daily. Take with food. omeprazole (PRILOSEC) 20 mg capsule Take 1 capsule by mouth daily before breakfast. 1/2 hr before meal. No current facility-administered medications for this visit. ALLERGIES Allergen Reactions Zocor [Simvastatin] Myalgia PAST SURGICAL HISTORY Procedure Laterality Date APPENDECTOMY 02/10/1970 ARTHROSCOPY KNEE DIAGNOSTIC W/WO SYNOVIAL BX SPX 10/19/2022 rt knee artroscopic I & D, synovectomy CAROTID ENDARTERECTOMY 06/16/2012 Right carotid COLONOSCOPY 12/12/2014 Repeat 2018 Physical Exam: OBJECTIVE: Constitutional: Pt is a well developed 62 year old female who is alert, oriented, cooperative and in no apparent distress. Eyes: Following during examination. No redness or drainage. Respiratory: RR normal and nonlabored. Even breathing. No evidence of distress. Psychology: Patient is engaged during conversation. Normal affect and mood. Does not appear depressed or anxious. NVSI unchanged from previous visit. Dermatological: Painful porokeratosis is present to left fifth metatarsal x 3. Painful porokeratosis is present to right 5th metatarsal x 2 Right hallux toenail is thick, elongated. Musculoskeletal/Orthopaedic: Patient has pain to palpation of porokeratotic lesions ASSESSMENT: (Q82.8) Porokeratosis (primary encounter diagnosis) (L60.3) Onychodystrophy PLAN: Painful porokeratotic lesions was sharply debrided to both feet with 15 blade. Tca applied under occlusion Can continue with inserts and padding to offload Can f/u as needed for porokeratosis Right hallux toenail debrided as courtesy. Informed patient of criteria for nail care. She does notmeet criteria to have nail care covered by insurance. She understands this. She has elected to continue with debridement herself going forward. Right hallux nail debrided as courtesy. Small bleed present. Band aide applied. Michael Benson DPM * Olivia Hunt RN - 08/19/2023 9:51 AM EDT AMB ROOMING INTAKE FLOWSHEET DATA Pain Pain Level: 5 Pain Location: Other: See Comment Description: Sore Duration Units: Months Frequency: Intermittent Intervention/Comfort measure: Reposition, Relaxation Patient presents with: Left Foot - Established Patient, Wart Right Foot - Established Patient, Wart Patient here for toenail debridement and debridement of porokeratosis to B/L feet. [facility] Instructions* Patient Instructions* Michael Benson - 08/19/2023 10:25 AM EDT Trichloroacetic acid (TCA) has been applied to the plantar warts. Rinse off in 12 hours and keep clean and dry. May bathe and shower normally starting the day after treatment The area is expected to burn and blister in about 1-3 days, if painful soak in plain, cool water. If blistered, you may drain the blister with a clean, STERILIZED needle and apply OTC antibiotic ointment and band aid to area. Repeat 2-3 times daily as needed. Tylenol or Aleve as needed for pain, provided you have no allergies to either of these. Keep scheduled follow up appointment to have wart(s) re-evaluated and/or additional treatments. [facility] encounter[facility] Telephone encounter Note * Telephone Encounter - Pallavi Patel RN - 08/13/2023 2:04 PM EDT Patient aware. Pallavi Patel RN August 13, 2023 2:05 PM [facility]07-03-2024 Miscellaneous Notes* Telephone Encounter - Pallavi Patel RN - 08/13/2023 2:04 PM EDT Patient aware. Pallavi Patel RN August 13, 2023 2:05 PM * Telephone Encounter - Vicky Fields APRN.CNP - 08/13/2023 1:19 PM EDT Please let the patient know Golytely was sent in to her requested pharmacy. Thanks, Vicky Fields APRN.CNP * Telephone Encounter - Suri Rojo - 08/13/2023 11:49 AM EDT Patient is requesting to go with Golytely last minute instead of Miralax / Dulcolax Send Golytely Bowel prep to [facility] [address] [place] [address] Ph. [phone] Suri Rojo documented in this encounterAkron [facility] Telephone encounter Note * Telephone Encounter - Vicky Fields APRN.CNP - 08/13/2023 1:19 PM EDT Please let the patient know Golytely was sent in to her requested pharmacy. Thanks, Vicky Fields APRN.CNP [facility]07-03-2024 Telephone encounter Note* Telephone Encounter - Suri Rojo - 08/13/2023 11:49 AM EDT Patient is requesting to go with Golytely last minute instead of Miralax / Dulcolax Send Golytely Bowel prep to [facility] [address] [place] [address] . [phone] Suri Rojo [facility] Work Phone: 1(330) 717-986607-01-2024 Telephone encounter Note* Telephone Encounter - Nancy James - 08/11/2023 3:57 PM EDT Prescription Refill Information The patient has been identified by name and date of : Yes Caregiver verified no other encounters exist for this prescription request: Yes Caregiver confirmed with patient/requestor that no other refills are due, in the near future, with this provider at this time: Yes The last office visit in the department: 04/29/23 Does the patient have a future office visit with this provider/department: Yes Requested Prescriptions Pending Prescriptions Disp Refills imipramine HCl (TOFRANIL) 50 mg tablet 270 tablet 0 Sig: Take 3 tablets by mouth daily at bedtime. Nancy Mitchell August 11, 2023 3:58 PM [facility]07-01-2024 Miscellaneous Notes* Telephone Encounter - Nancy James - 08/11/2023 3:57 PM EDT Prescription Refill Information The patient has been identified by name and date of : Yes Caregiver verified no other encounters exist for this prescription request: Yes Caregiver confirmed with patient/requestor that no other refills are due, in the near future, with this provider at this time: Yes The last office visit in the department: 04/29/23 Does the patient have a future office visit with this provider/department: Yes Requested Prescriptions Pending Prescriptions Disp Refills imipramine HCl (TOFRANIL) 50 mg tablet 270 tablet 0 Sig: Take 3 tablets by mouth daily at bedtime. Nancy Mitchell August 11, 2023 3:58 PM documented in this encounterAkron [facility]06[facility] Telephone encounter Note * Telephone Encounter - Vannessa Peterson MA - 08/08/2023 8:17 AM EDT Prescription Refill Information The patient has been identified by name and date of : Yes Caregiver verified no other encounters exist for this prescription request: Yes Caregiver confirmed with patient/requestor that no other refills are due, in the near future, with this provider at this time: No The last office visit in the department: 04/29/23 Does the patient have a future office visit with this provider/department: Yes 11/03/23 Requested Prescriptions Pending Prescriptions Disp Refills zolpidem (AMBIEN) 10 mg 30 tablet 0 Sig: Take 1 tablet by mouth daily at bedtime for 30 days. Vannessa Peterson MA August 08, 2023 8:17 AM [facility]06-28-2024 Miscellaneous Notes* Telephone Encounter - Vannessa Peterson MA - 08/08/2023 8:17 AM EDT Prescription Refill Information The patient has been identified by name and date of : Yes Caregiver verified no other encounters exist for this prescription request: Yes Caregiver confirmed with patient/requestor that no other refills are due, in the near future, with this provider at this time: No The last office visit in the department: 04/29/23 Does the patient have a future office visit with this provider/department: Yes 11/03/23 Requested Prescriptions Pending Prescriptions Disp Refills zolpidem (AMBIEN) 10 mg 30 tablet 0 Sig: Take 1 tablet by mouth daily at bedtime for 30 days. Vannessa Peterson MA August 08, 2023 8:17 AM * Telephone Encounter - Aarti Reyes - 08/08/2023 8:12 AM EDT Patient requesting medication that is on list zolpidem (AMBIEN) 10 mg ( [facility] documented in this encounterAkron [facility] Telephone encounter Note * Telephone Encounter - Aarti Reyes - 08/08/2023 8:12 AM EDT Patient requesting medication that is on list zolpidem (AMBIEN) 10 mg ( [facility]: [facility]06-26-2024 History of Present illness Narrative* Anju Garcia APRN.[employer] - 08/06/2023 12:02 PM EDT Images from the original note were not included. Subjective Patient came in with complaints of pain in the left pinky toe. Patient says he stubbed it 2 days ago. Patient says when she got off work she needed to use Aleve and rest her foot. Patient says she had a call off work today. Patient denies any significant pain at this time. Patient does not want an x-ray. The history is provided by the patient. No technician biological health was used. Review of Systems Constitutional: Negative. Skin: Negative. Objective Physical Exam Constitutional: Appearance: Normal appearance. Pulmonary: Effort: Pulmonary effort is normal. Musculoskeletal: Feet: Feet: Comments: Very mild swelling in the area marked above. No deformities noted and no discoloration noted. Neurological: Mental Status: She is alert. PAST MEDICAL HISTORY Diagnosis Date Arrhythmia Bradycardia Diabetes mellitus with peripheral artery disease (HCC) 03/06/2015 H/O percutaneous left heart catheterization May, negative--[facility] History of rectal polypectomy 09/23/201712/2014: hyperplastic polyp Hyperlipidemia LDL goal < 100 01/25/2013 Hypertension Major depressive disorder, recurrent episode, unspecified Non-alcoholic fatty liver disease 10/13/2014 Other and unspecified hyperlipidemia Other chronic nonalcoholic liver disease 01/16 fatty liver disease Peripheral arterial disease (HCC) 03/06/2015 Recurrent major depressive disorder, in full remission (HCC) 03/10/2017 Snoring Type 2 diabetes mellitus with stage 3 chronic kidney disease, without long-term current use of insulin (HCC) 05/11/2016 PAST SURGICAL HISTORY Procedure Laterality Date APPENDECTOMY 02/10/1970 ARTHROSCOPY KNEE DIAGNOSTIC W/WO SYNOVIAL BX SPX 10/19/2022 rt knee artroscopic I & D, synovectomy CAROTID ENDARTERECTOMY 06/16/2012 Right carotid COLONOSCOPY 12/12/2014 Repeat 2018 ALLERGIES Zocor [Simvastatin] MEDICATIONS cyclobenzaprine (FLEXERIL) 5 mg tablet Take 1 tablet by mouth three times a day as needed. zolpidem (AMBIEN) 10 mg Take 1 tablet by mouth daily at bedtime for 30 days. imipramine HCl (TOFRANIL) 50 mg tablet Take 3 tablets by mouth daily at bedtime. thiothixene (NAVANE) 1 mg capsule Take 2 capsules by mouth two times a day. metFORMIN (GLUCOPHAGE) 500 mg tablet take 1 tablet by mouth once daily with dinner lisinopril (ZESTRIL) 5 mg tablet take 1 tablet by mouth once daily ibuprofen (MOTRIN) 800 mg tablet Take 1 tablet by mouth every 8 hours as needed for pain. Take withfood. atorvastatin (LIPITOR) 20 mg tablet Take 1 tablet by mouth once daily. buPROPion SR (WELLBUTRIN SR) 150 mg 12 hr tablet One pill by mouth once daily X 3 days, then increase to twice daily. Take second dose before 6PM. Try to stop smoking on day 5-7. ondansetron orally disintegrating (ZOFRAN ODT) 4 mg disintegrating tablet Take 1 tablet by mouth every 8 hours as needed for nausea/vomiting. albuterol HFA (VENTOLIN HFA) 90 mcg/actuation inhaler Inhale 2 Puffs as instructed every 4 hours asneeded for wheezing/shortness of breath. blood sugar diagnostic (BLOOD GLUCOSE TEST) test strip Test blood sugar(s) 1 times daily. Dx: Type 2 DM - Controlled E11.9 Insulin: No Lancets lancets Test blood sugar(s) 1 times daily. Dx: Type 2 DM - Controlled E11.9 Insulin: No polyethylene glycol 3350 (MIRALAX, GLYCOLAX) 17 gram/dose powder Use as directed for Miralax / Gatorade Bowel Prep Kit Gatorade Sports Drink Use as directed for Miralax / Gatorade Bowel Prep Kit Bisacodyl (DULCOLAX) 5 mg tab Use as directed for Miralax / Gatorade Bowel Prep Kit busPIRone (BUSPAR) 5 mg tablet Take 1 tablet by mouth three times daily as needed. Melatonin 5 mg cap Take 1 capsule by mouth once daily. Aspirin 81 mg tab Take 1 tablet by mouth once daily. Take with food. omeprazole (PRILOSEC) 20 mg capsule Take 1 capsule by mouth daily before breakfast. 1/2 hr before meal. FAMILY HISTORY Problem Relation Age of Onset Heart Mother Diabetes Father other (Parkinson's disease [Other]) Brother Social History Tobacco Use Smoking status: Every Day Packs/day: 1.00 Years: 25.00 Additional pack years: 0.00 Total pack years: 25.00 Types: Cigarettes Smokeless tobacco: Never Vaping Use Vaping Use: Never used Substance Use Topics Alcohol use: Not Currently Comment: quit 04/18 Drug use: No ASSESSMENT/PLAN: 1. Pain - ICD9: 780.96, ICD10: R52 Patient will monitor symptoms and follow-up if symptoms seem to be getting worse not better. Patient was okay with this care plan. Anju Garcia APRN.CANDACE documented in this encounterAkron [facility]06-[facility] Telephone encounter Note * Telephone Encounter - Cheryl Desir - 07/25/2023 12:54 PM EDT Prescription Refill Information The patient has been identified by name and date of : Yes Caregiver verified no other encounters exist for this prescription request: Yes Caregiver confirmed with patient/requestor that no other refills are due, in the near future, with this provider at this time: Yes The last office visit in the department: 04/29/23 Does the patient have a future office visit with this provider/department: Yes Requested Prescriptions Pending Prescriptions Disp Refills cyclobenzaprine (FLEXERIL) 5 mg tablet 90 tablet 1 Sig: Take 1 tablet by mouth three times a day as needed. Cheryl Mitchell July 25, 2023 12:55 PM [facility]-14-2024 Miscellaneous Notes* Telephone Encounter - Cheryl Desir - 07/25/2023 12:54 PM EDT Prescription Refill Information The patient has been identified by name and date of : Yes Caregiver verified no other encounters exist for this prescription request: Yes Caregiver confirmed with patient/requestor that no other refills are due, in the near future, with this provider at this time: Yes The last office visit in the department: 04/29/23 Does the patient have a future office visit with this provider/department: Yes Requested Prescriptions Pending Prescriptions Disp Refills cyclobenzaprine (FLEXERIL) 5 mg tablet 90 tablet 1 Sig: Take 1 tablet by mouth three times a day as needed. Cheryl Mitchell July 25, 2023 12:55 PM documented in this encounterAkron [facility]05-28-2024 Telephone encounter Note * Telephone Encounter - Lulu Swanson APRN.CNP - 07/08/2023 5:01 PM EDT Script sent. Lulu Swanson APRN.CNP [facility]05-28-2024 Miscellaneous Notes* Telephone Encounter - Lulu Swanson APRN.CNP - 07/08/2023 5:01 PM EDT Script sent. Lulu Swanson APRN.CNP * Telephone Encounter - Siri Evans OCCA - 07/08/2023 10:01 AM EDT Patient has been identified by name and date of : Yes Patient phones for refill(s): Requested Prescriptions Pending Prescriptions Disp Refills zolpidem (AMBIEN) 10 mg 30 tablet 0 Sig: Take 1 tablet by mouth daily at bedtime for 30 days. Date of last office visit in primary care: 04/29/2023 Date of next office visit in primary care: 07/14/2023 Please advise. Thank you. DESMOND Butt. * Telephone Encounter - Aarti Reyes 07/08/2023 9:48 AM EDT Patient requesting medication that is : zolpidem (AMBIEN) 10 mg ( PHARMACY: [facility] documented in this encounterAkron [facility]05-28-2024 Telephone encounter Note * Telephone Encounter - Siri Evans OCCA - 07/08/2023 10:01 AM EDT Patient has been identified by name and date of : Yes Patient phones for refill(s): Requested Prescriptions Pending Prescriptions Disp Refills zolpidem (AMBIEN) 10 mg 30 tablet 0 Sig: Take 1 tablet by mouth daily at bedtime for 30 days. Date of last office visit in primary care: 04/29/2023 Date of next office visit in primary care: 07/14/2023 Please advise. Thank you. DESMOND Butt. [facility]-28-2024 Telephone encounter Note* Telephone Encounter - Aarti Reyes - 07/08/2023 9:48 AM EDT Patient requesting medication that is : zolpidem (AMBIEN) 10 mg ( PHARMACY: [facility]2024 Telephone encounter Note* Telephone Encounter - Suzanne Boyle RN - 06/21/2023 6:33 PM EDT Patient calling with question if patient was allowed to eat tomorrow prior to nuclear stress test. Patient denies any new or worsening symptoms of which a provider is not aware:Yes. Per Note in chart : *NOTHING BY MOUTH 4 HOURS prior to this test. (you may have sips of water) *NO CAFFEINE FOR 24 HOURS PRIOR TO TESTING (including TEA even decaf, COFFEE- even decaf, CHOCOLATE, DIEGO- even decaf) [facility] Miscellaneous Notes* Telephone Encounter - Suzanne Boyle RN - 06/21/2023 6:33 PM EDT Patient calling with question if patient was allowed to eat tomorrow prior to nuclear stress test. Patient denies any new or worsening symptoms of which a provider is not aware:Yes. Per Note in chart : *NOTHING BY MOUTH 4 HOURS prior to this test. (you may have sips of water) *NO CAFFEINE FOR 24 HOURS PRIOR TO TESTING (including TEA even decaf, COFFEE- even decaf, CHOCOLATE, DIEGO- even decaf) documented in this encounterAkron [facility]05-[facility]-2024 Telephone encounter Note * Telephone Encounter - Gloria Zepeda RN - 06/17/2023 1:58 PM EDT Called and attempted to review the below instructions with the patient. Patient ended call before completing review of them with her. Gloria Zepeda RN You are scheduled for a stress test on 06/23/23 at 7:30. This stress test will appear as 3 appointments on your schedule. You may get multiple reminder calls, but please arrive at the earliest scheduled appointment. Please follow below instructions: *NOTHING BY MOUTH 4 HOURS prior to this test. (you may have sips of water) *NO CAFFEINE FOR 24 HOURS PRIOR TO TESTING (including TEA even decaf, COFFEE- even decaf, CHOCOLATE, DIEGO- even decaf) *Do NOT take MEDICATIONS CONTAINING CAFFEINE/XANTHINE for 24 HOURS prior to testing: Theophylline, Trental, Excedrin, Anacin, Goody Powders, No Doz, Vivarin, Midol, Diurex, Fiorinal, Fioricet, Esgic (butalbital) *Do NOT take Calcium Channel Blockers 24 HOURS prior to test. *Do NOT take Beta blockers 24 HOURS prior to test UNLESS your doctor tells you otherwise. *Do NOT use the following medications 48 HOURS prior to this test: Viagra(Sildenafil citrate), Cialis(Tadalafil), Vardenafil (Levitra, Stanyx), Avanfil (Stendra). *Do not take any of these meds prior to test unless provider directs you otherwise; Nitroglycerine (ex:Deponit, Nitrostat) Isosorbide (ex:Isordil, Sorbitrate,Imdur,Ismo). Medications on your list you should hold for 24 HOURS: None *All other medications may be taken as you normally would. *Guidelines for Diabetics: If you take insulin to control your blood sugar, ask you physician what amount you should take the day of the test. If you take pills to control blood sugar, on the day of the test, do NOT take them until AFTER the test. *FAILURE TO FOLLOW THESE INSTRUCTIONS WILL RESULT IN HAVING TO RESCHEDULE THE TEST. *If you use an inhaler, bring it along with you just in case *THIS TEST MAY TAKE UP TO 3 HOURS TO COMPLETE. Please check in on the first floor at Radiology: [address]; [place] [address] * If you need to cancel or reschedule this test or have any questions regarding this test, please call [phone]. [facility]05-07-2024 Miscellaneous Notes* Telephone Encounter - Gloria Zepeda RN - 06/17/2023 1:58 PM EDT Called and attempted to review the below instructions with the patient. Patient ended call before completing review of them with her. Gloria Zepeda RN You are scheduled for a stress test on 06/23/23 at 7:30. This stress test will appear as 3 appointments on your schedule. You may get multiple reminder calls, but please arrive at the earliest scheduled appointment. Please follow below instructions: *NOTHING BY MOUTH 4 HOURS prior to this test. (you may have sips of water) *NO CAFFEINE FOR 24 HOURS PRIOR TO TESTING (including TEA even decaf, COFFEE- even decaf, CHOCOLATE, DIEGO- even decaf) *Do NOT take MEDICATIONS CONTAINING CAFFEINE/XANTHINE for 24 HOURS prior to testing: Theophylline, Trental, Excedrin, Anacin, Goody Powders, No Doz, Vivarin, Midol, Diurex, Fiorinal, Fioricet, Esgic (butalbital) *Do NOT take Calcium Channel Blockers 24 HOURS prior to test. *Do NOT take Beta blockers 24 HOURS prior to test UNLESS your doctor tells you otherwise. *Do NOT use the following medications 48 HOURS prior to this test: Viagra(Sildenafil citrate), Cialis(Tadalafil), Vardenafil (Levitra, Stanyx), Avanfil (Stendra). *Do not take any of these meds prior to test unless provider directs you otherwise; Nitroglycerine (ex:Deponit, Nitrostat) Isosorbide (ex:Isordil, Sorbitrate,Imdur,Ismo). Medications on your list you should hold for 24 HOURS: None *All other medications may be taken as you normally would. *Guidelines for Diabetics: If you take insulin to control your blood sugar, ask you physician what amount you should take the day of the test. If you take pills to control blood sugar, on the day of the test, do NOT take them until AFTER the test. *FAILURE TO FOLLOW THESE INSTRUCTIONS WILL RESULT IN HAVING TO RESCHEDULE THE TEST. *If you use an inhaler, bring it along with you just in case *THIS TEST MAY TAKE UP TO 3 HOURS TO COMPLETE. Please check in on the first floor at Radiology: [address]; [place] [address] * If you need to cancel or reschedule this test or have any questions regarding this test, please call [phone]. documented in this encounterAk[facility] History of Present illness Narrative* Stephanie Lanza MD - 06/13/2023 6:29 AM EDT HISTORY AND PHYSICAL David Kincaid Valdemar 1960 REFERRING PHYSICIAN: Lulu Swanson APRN.C* CHIEF COMPLAINT: colon consult HPI: The patient is a 62 year old female referred for endoscopy. David notes no history of colon complaints. The patient notes no history of upper GI complaints. David has undergone prior endoscopy. 2014 The patient is being seen by me today at the request of Dr. Swanson for my opinion and advice regarding Screening for colon cancer. PAST MEDICAL HISTORY Diagnosis Date Arrhythmia Bradycardia Diabetes mellitus with peripheral artery disease (HCC) 03/06/2015 H/O percutaneous left heart catheterization May, negative--[facility] History of rectal polypectomy 09/23/201712/2014: hyperplastic polyp Hyperlipidemia LDL goal < 100 01/25/2013 Hypertension Major depressive disorder, recurrent episode, unspecified Non-alcoholic fatty liver disease 10/13/2014 Other and unspecified hyperlipidemia Other chronic nonalcoholic liver disease 01/16 fatty liver disease Peripheral arterial disease (HCC) 03/06/2015 Recurrent major depressive disorder, in full remission (HCC) 03/10/2017 Snoring Type 2 diabetes mellitus with stage 3 chronic kidney disease, without long-term current use of insulin (HCC) 05/11/2016 PAST SURGICAL HISTORY Procedure Laterality Date APPENDECTOMY 02/10/1970 ARTHROSCOPY KNEE DIAGNOSTIC W/WO SYNOVIAL BX SPX 10/19/2022 rt knee artroscopic I & D, synovectomy CAROTID ENDARTERECTOMY 06/16/2012 Right carotid COLONOSCOPY 12/12/2014 Repeat 2018 Current Outpatient Medications Medication Sig zolpidem (AMBIEN) 10 mg Take 1 tablet by mouth daily at bedtime for 30 days. cyclobenzaprine (FLEXERIL) 5 mg tablet Take 1 tablet by mouth three times a day as needed. imipramine HCl (TOFRANIL) 50 mg tablet Take 3 tablets by mouth daily at bedtime. thiothixene (NAVANE) 1 mg capsule Take 2 capsules by mouth two times a day. metFORMIN (GLUCOPHAGE) 500 mg tablet take 1 tablet by mouth once daily with dinner lisinopril (ZESTRIL) 5 mg tablet take 1 tablet by mouth once daily ibuprofen (MOTRIN) 800 mg tablet Take 1 tablet by mouth every 8 hours as needed for pain. Take withfood. atorvastatin (LIPITOR) 20 mg tablet Take 1 tablet by mouth once daily. buPROPion SR (WELLBUTRIN SR) 150 mg 12 hr tablet One pill by mouth once daily X 3 days, then increase to twice daily. Take second dose before 6PM. Try to stop smoking on day 5-7. ondansetron orally disintegrating (ZOFRAN ODT) 4 mg disintegrating tablet Take 1 tablet by mouth every 8 hours as needed for nausea/vomiting. omeprazole (PRILOSEC) 20 mg capsule Take 1 capsule by mouth daily before breakfast. 1/2 hr before meal. albuterol HFA (VENTOLIN HFA) 90 mcg/actuation inhaler Inhale 2 Puffs as instructed every 4 hours asneeded for wheezing/shortness of breath. blood sugar diagnostic (BLOOD GLUCOSE TEST) test strip Test blood sugar(s) 1 times daily. Dx: Type 2 DM - Controlled E11.9 Insulin: No Lancets lancets Test blood sugar(s) 1 times daily. Dx: Type 2 DM - Controlled E11.9 Insulin: No polyethylene glycol 3350 (MIRALAX, GLYCOLAX) 17 gram/dose powder Use as directed for Miralax / Gatorade Bowel Prep Kit Gatorade Sports Drink Use as directed for Miralax / Gatorade Bowel Prep Kit Bisacodyl (DULCOLAX) 5 mg tab Use as directed for Miralax / Gatorade Bowel Prep Kit busPIRone (BUSPAR) 5 mg tablet Take 1 tablet by mouth three times daily as needed. Melatonin 5 mg cap Take 1 capsule by mouth once daily. Aspirin 81 mg tab Take 1 tablet by mouth once daily. Take with food. No current facility-administered medications for this visit. ALLERGIES: Zocor [Simvastatin] PERSONAL HISTORY: Social History Tobacco Use Smoking status: Every Day Packs/day: 1.00 Years: 25.00 Additional pack years: 0.00 Total pack years: 25.00 Types: Cigarettes Smokeless tobacco: Never Vaping Use Vaping Use: Never used Substance Use Topics Alcohol use: Not Currently Comment: quit 04/18 Drug use: No FAMILY HISTORY: FAMILY HISTORY Problem Relation Age of Onset Heart Mother Diabetes Father other (Parkinson's disease [Other]) Brother REVIEW OF SYMPTOMS: The review of systems data was entered by the nurse and reviewed by id Nursing Notes: Keeley Cadena MA 06/06/2023 1:16 PM Signed REVIEW OF SYSTEMS: General: The patient denies fatigue, denies weight loss, NOTES weight gain, denies feeling hot, anddenies feelings of cold. Eyes: The patient denies glaucoma, denies eye injury/surgery, wears glasses or contacts. Ear/Nose/Throat: The patient denies allergies, denies hayfever, denies ear infections, and denies bloody noses. Cardiovascular: The patient denies chest pain, denies heart disease, NOTES high blood pressure,denies cardiac stent, denies prior heart attack, denies irregular heart beat, NOTES high cholesterol, NOTES poor circulation, denies heart failure, other cardiac issues, denies claudication, NOTES cold feet, denies peripheral arterial stent. Respiratory: The patient denies tuberculosis, denies pneumonia, denies frequent cough, denies pulmonary embolism, NOTES shortness of breath, and denies coughing up blood. Gastrointestinal: The patient denies difficulty swallowing, denies acid reflux, denies ulcers, denies vomiting, denies jaundice/hepatitis, denies gallbladder problems, NOTES black or tarry stools, denies hemorrhoids, denies bleeding from rectum, denies diverticulitis, denies constipation, denies diarrhea, NOTES loss of stool control, and denies hernias. Kidney/Bladder: The patient denies kidney stones, denies urine infections, and denies bloody urine. Skin: The patient denies a history of skin cancer, denies bleeding/changing moles, and denies a history of skin rash. Neurologic: The patient denies a history of epilepsy/convulsions, denies headaches, denies head/spinal injuries, and denies stroke/TIA. Psychiatric: The patient denies psychiatric medications, denies depression, and denies voices, denies substance abuse. Endocrine: The patient denies thyroid disorders, NOTES diabetes, and denies hormonal problems. Hematologic: The patient denies a history of bruising, NOTES bleeding, and denies anemia, denies blood clots. Infections: The patient denies a history of measles and mumps, denies rheumatic fever, and denies sexually transmitted diseases. Musculoskeletal: The patient denies back pain/injury, denies back problems, denies sciatica, deniesknee/foot trouble, denies arthritis, or denies gout. When was patient's last Mammogram screening? 2021 Last Colonoscopy: 2014 Keeley Cadena MA PHYSICAL EXAMINATION: General: The patient is 62 year old female, well nourished, well hydrated in no acute distress. Thepatient is oriented to time, place, and person. VITALS: Blood pressure 114/68, pulse (!) 51, weight 67.6 kg (149 lb), last menstrual period 11/13/2009, SpO2 97%. Body mass index is 28.15 kg/m . HEENT: Normal cephalic, ataumatic, pupils are equally round, sclera are anicteric, mucous membranesare moist, oropharynx is clear. Neck has no masses, asymmetry or lymphadenopathy. Thyroid is unremarkable. Respiratory: Clear to auscultation and percussion. Normal respiratory excursion and pattern. Cardiac: Examination is regular rate and rhythm. Abdominal exam: Soft, nontender, with no palpable masses. No hepatosplenomegaly. No palpable hernias. Rectal exam: exam deferred Extremities: no clubbing, cyanosis or edema. No adenopathy. Other: LABORATORY VALUES: As Noted RADIOLOGIC STUDIES: As Noted Assessment IMPRESSION: Screening for colon cancer PLAN: I plan to perform lower endoscopy. We discussed the risks and benefits of the planned endoscopy. I have informed the patient that complications can occur including failure to complete the endoscopy and perforation. The patient had the opportunity to ask questions concerning the planned endoscopy. My staff has also explained the procedure to the patient in understandable terms and has given the patient printed material concerning the procedure. The patient freely consents to surgery. I plan to use Miralax bowel preperation for endoscopy Diagnoses: (Z12.11) Screening for colon cancer My findings have been communicated to Dr. Swanson via shared medical record. This note will be forwarded to Dr. Lulu Swanson APRN.[employer]. Return to Clinic: The patient is instructed to follow-up with me 1 week post operatively. Stephanie Lanza III, MD documented in this encounterAkron [facility] Instructions* Patient Instructions* Stephanie Lanza MD - 06/06/2023 1:16 PM EDT Images from the original note were not included. Bowel Preparation Instructions for: Miralax-Gatorade Preparations IF YOU DO NOT FOLLOW THESE DIRECTIONS, YOUR COLONOSCOPY WILL BE CANCELLED. [place] Instructions: Your bowel must be empty so that your doctor can clearly view your colon. Follow all of the instructions in this handout EXACTLY as they are written. Do NOT eat any solid food the ENTIRE day before your colonoscopy. Buy your bowel preparation at least 5 days before your colonoscopy. Four (4) Dulcolax laxative tablets containing 5mg of bisacodyl each (NOT Dulcolax stool softener) One (1) 8.3oz. bottle Miralax (238 grams) or generic equivalent 2 x 32oz. Bottles of Gatorade (NOT RED) Diabetic Patients: Use G2 (Gatorade 2) TRANSPORTATION on the Day of Your Exam A responsible adult MUST be present with you at Check In prior to your colonoscopy and REMAIN in the endoscopy area until you are discharged. You are NOT ALLOWED to drive, take a taxi or bus, or leave the Endoscopy Center ALONE. If you do not have a responsible cdl company driver (family member or friend) withyou to take you home, your exam cannot be done with sedation and will be cancelled. Please bring a list of all of your current medications, including any Wlza-lku-Vgdawfr medications with you. Medications If you take insulin, diabetic medications or blood thinners such as Coumadin (warfarin), Plavix (clopidogrel), Ticlid (ticlopidine hydrochloride), Agrylin (anagrelide), Xarelto (Rivaroxaban), Pradaxa(Dabigatran), Eliquis (Apixaban), and Effient (Prasugrel). You MUST call the doctors who orders those medicines for instructions on altering the dosage before your colonoscopy. All other medications should be taken the day of the exam with a sip of water including ASPIRIN. Five (5) Days Before Your Colonoscopy Do NOT take medicines that stop diarrhea - such as Imodium, Kaopectate, or Pepto Bismol. Do NOT take fiber supplements - such as Metamucil, Citrucel, or Perdiem. Do NOT take products that contain iron - such as multi-vitamins (the label lists what is in the products). Three (3) Days Before Your Colonoscopy Do NOT eat high-fiber foods - such as popcorn, beans, seeds (flax, sunflower, quinoa), multigrain bread, nuts, salad/vegetables, or fresh and dried fruit. 1 Bowel Preparation Instructions for: Miralax-Gatorade Preparations One (1) Day Before Your Colonoscopy Only drink clear liquids the ENTIRE DAY before your colonoscopy. Do NOT eat any solid foods. Drink at least 8 ounces of clear liquids every hour after waking up. The clear liquids you can drink include: Clear Liquid (NO RED LIQUIDS) DO NOT DRINK Gatorade, Pedialyte or Powerade Clear broth or bouillon Coffee or tea (no milk or non-dairy creamer) Carbonated and non-carbonated soft drinks Brian-Aid or other fruit flavored drinks Strained fruit juices (no pulp) Jell-O, popsicles, hard candy Water Alcohol Milk or non-dairy creamers Noodles or vegetables in soup Juice with pulp Liquid you cannot see through Do not use tobacco/vaping products Mix 1/2 of Miralax bottle (119 grams) in each 32 ounces of Gatorade bottle until dissolved. Keep cool in the refrigerator. DO NOT ADD ICE. The bowel preparation solution will be consumed in two parts. Part 1 5:00 PM - Evening before your colonoscopy Take 4 Dulcolax tablets. 6 PM - Evening before your colonoscopy Drink 32 oz. of the mixed solution. Drink an 8 oz. glass of bowel preparation every 15 minutes for a total of 4 glasses. Fifteen (15) minutes later, drink an 8 oz. glass of of clear liquids every 15 minutes for a total of 2 glasses. You may continue to drink clear liquids till midnight. Part 2 On the day of your colonoscopy you may drink clear liquids up to (three) 3 hours prior to procedure. 4 1/2 hours before your colonoscopy Take another 32 oz. bottle of mixed solution. Drink an 8 oz. glass of bowel prep every 15 minutes for a total of 4 glasses. Fifteen (15) minutes later, drink an 8 oz. glass of clear liquids every 15 minutes for a total of 2glasses. You may continue to drink clear liquids up to (three) 3 hours before your exam. 2 01/2019 documented in this encounterAkron [facility]04[facility] Nurse Note* Keeley Cadena MA - 06/06/2023 1:14 PM EDT REVIEW OF SYSTEMS: General: The patient denies fatigue, denies weight loss, NOTES weight gain, denies feeling hot, anddenies feelings of cold. Eyes: The patient denies glaucoma, denies eye injury/surgery, wears glasses or contacts. Ear/Nose/Throat: The patient denies allergies, denies hayfever, denies ear infections, and denies bloody noses. Cardiovascular: The patient denies chest pain, denies heart disease, NOTES high blood pressure,denies cardiac stent, denies prior heart attack, denies irregular heart beat, NOTES high cholesterol, NOTES poor circulation, denies heart failure, other cardiac issues, denies claudication, NOTES cold feet, denies peripheral arterial stent.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 APRN.CNP - 12/06/2022 9:00 AM EDT Can we please reiterate that if she gets any further chest pain/sob/palpitation -- she should proceed to ER. Lulu Swanson APRN.CNP * Telephone Encounter - Marie Elmore RN - 12/05/2022 2:10 PM EDT Patient calling to request an appointment for 12/10/22 with PCP for increasing anxiety over the last month. She feels that current medication Buspar is no longer effective. She says she feels most anxious when she goes to work and this causes some chest pressure with this situation. She denies chest pain with exertion, SOB, dizziness, nausea, radiation to arm, neck or jaw. She is not having chestpain at this time. Red flags for ER evaluation reviewed with patient. Reviewed triage protocol guidelines. Disposition: See PCP within 2 weeks. Appointment scheduled perpatient request. Marie Elmore RN Reason for Disposition [1] Symptoms of anxiety or panic attack AND [2] is a chronic symptom (recurrent or ongoing AND present > 4 weeks) Answer Assessment - Initial Assessment Questions 1. CONCERN: Patient calling for appointment today for increasing anxiety X one month 2. ANXIETY SYMPTOMS: feeling more anxious and tense than usual 3. ONSET: one month 4. SEVERITY: mild-moderate depending on situation Going to work is very stressful for her and she feels so anxious about it that she experiences chest pressure 5. FUNCTIONAL IMPAIRMENT: Still able to do daily activities 6. HISTORY: Has history of situational anxiety. Takes Buspar but she doesn't think it's effective 7. RISK OF HARM - SUICIDAL IDEATION: Denies SI?HI 8. TREATMENT: Medication 9. TREATMENT - THERAPIST: "Do you have a counselor or therapist? Name?" *No Answer* 10. POTENTIAL TRIGGERS: No changes in caffeine, alcohol, Tobacco, medication use. 11. PATIENT SUPPORT: Family support system 12. OTHER SYMPTOMS: chest pressure Any concerns of chest pain pressure or palpitations; any chest pain that changes in severity, quality or location; chest pain that is associated with lightheadedness, dizziness, indigestion and/or shortness of breath, or that radiates to the jaw, neck, or back. The patient is instructed to call 911for transport via EMS or head directly to the ER. The patient verbalizes understanding. Protocols used: Anxiety and Panic [id number] documented in this encounterAkron Children'[facility] Hospital10-25-2023 Miscellaneous Notes* Telephone Encounter - Dina Diaz Ma - 12/04/2022 11:02 AM EDT Patient appointment was rescheduled to 12/23. I called and spoke with the patient. Explained that she needs to see one of the providers that did her surgery. Patient verbalized understanding. Appointment moved to 12/16 with Arely Foley PA-C. States she saw the nurse at [facility] and nurse said the knee looked good. Is not red or draining. Still has PICC line in place. * Telephone Encounter - Dina Diaz Ma - 12/04/2022 9:18 AM EDT I attempted to reach the patient. No answer and voicemail box is full. She needs to see her surgeon, Dr. Quiroz or Arely Foley PA-C if she has a problem. She has no showed for the last 2 visits that were scheduled. Will try to reach again later. * Telephone Encounter - Janee Baez - 11/29/2022 11:13 AM EDT Pt called in asking to schedule with Dr. Hall due to knee pain and swelling in her right knee. Shementioned recently having a staph infection and is worried that maybe she still has it. We got her scheduled for 12/13 but she was asking if there was any sort of blood work she possibly needs to have done first. Thank you Janee documented in this encounterAkron Children'[facility] Hospital10-14-2023 NoteHNO ID: [id number] Author: Note, Interface Service: ? Author Type: ? Type: Progress Notes Filed: 11/23/2022 3:03 AM Note Text: Epic Scheduled Downtime: 11/23/2022 1:00:00 AM to 11/23/2022 1:28:00 AMCherrington [id number] Miscellaneous Notes* Telephone Encounter - Anya Mejia Ma - 11/11/2022 2:56 PM EDT Patient returned call and given provider's response and verbalized understanding. * Telephone Encounter - Dina Diaz Ma - 11/11/2022 1:47 PM EDT Attempted to reach the patient. No answer, and voicemail box is full. * Telephone Encounter - Arely Foley PA-C - 11/11/2022 1:41 PM EDT I did send a small refill of this medication to her pharmacy as requested. This far out from surgery I would like her to try to rely more on [id number] anti-inflammatories and/or Tylenol for pain control. * Telephone Encounter - Angeline Escobar - 11/11/2022 9:37 AM EDT Patient is calling requesting a refill on the [employer]) 5-325 mg per tablet [facility] to [facility] [place] Please advise the patient documented in this encounterAkron Children'[facility] Hospital09-25-2023 History of Present illness Narrative* Arely Floey PA-C - 11/04/2022 1:40 PM EDT Arely Foley PA-C Department of Orthopaedics Orthopaedics [address] [facility] [id number] Dept: [phone] Dept November 04, 2022 CHIEF COMPLAINT: Follow Up and Post Op of the Right Knee (2 weeks 2 day postop Rt knee ArthroscopicI & D, syncovectomy). ASSESSMENT: M00.9 Pyogenic arthritis of right knee joint, due to unspecified organism (HCC) (primary encounter diagnosis) SUMMARY/PLAN: Patient presents 2 weeks and 2 days status post right knee arthroscopic I&D with synovectomy. She is doing much better, reports that pain is much improved, still having some intermittent swellingin the right knee and sometimes in the right ankle. 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 She is requesting a return to work letter for November 11. She does have [place] paperwork with her today but did not fill out her portion of the paperwork, she can drop off the paperwork at a later date we can complete that for her. We will see her back next month as planned. Exam: Incisions are all well approximated without erythema or drainage, there is a mild but appropriate right knee effusion. Patient is able to gently flex and extend the knee without any discomfort. Imaging: Deferred today. Ms. David Aldrich was advised as to contrast therapies and/or to take analgesics/anti-inflammatoriesas needed and all contraindications were reviewed. Supporting Information Below: Medications: Current Outpatient Medications Medication Sig ibuprofen (MOTRIN) 800 mg tablet Take 1 tablet by mouth every 8 hours as needed for pain. Take withfood. cyclobenzaprine (FLEXERIL) 5 mg tablet Take 1 tablet by mouth three times daily as needed. imipramine HCl (TOFRANIL) 50 mg tablet Take 3 tablets by mouth daily at bedtime. atorvastatin (LIPITOR) 20 mg tablet Take 1 tablet by mouth once daily. buPROPion SR (WELLBUTRIN SR) 150 mg 12 hr tablet One pill by mouth once daily X 3 days, then increase to twice daily. Take second dose before 6PM. Try to stop smoking on day 5-7. zolpidem (AMBIEN) 10 mg Take 1 tablet by mouth daily at bedtime for 30 days. Do not start before March 16, 2022. ondansetron orally disintegrating (ZOFRAN ODT) 4 mg disintegrating tablet Take 1 tablet by mouth every 8 hours as needed for nausea/vomiting. omeprazole (PRILOSEC) 20 mg capsule Take 1 capsule by mouth daily before breakfast. 1/2 hr before meal. albuterol HFA (VENTOLIN HFA) 90 mcg/actuation inhaler Inhale 2 Puffs as instructed every 4 hours asneeded for wheezing/shortness of breath. thiothixene (NAVANE) 1 mg capsule Take 2 capsules by mouth twice daily. metFORMIN (GLUCOPHAGE) 500 mg tablet take 1 tablet by mouth once daily with dinner lisinopril (ZESTRIL, PRINIVIL) 5 mg tablet take 1 tablet by mouth once daily blood sugar diagnostic (BLOOD GLUCOSE TEST) test strip Test blood sugar(s) 1 times daily. Dx: Type 2 DM - Controlled E11.9 Insulin: No Lancets lancets Test blood sugar(s) 1 times daily. Dx: Type 2 DM - Controlled E11.9 Insulin: No Bisacodyl (DULCOLAX) 5 mg tab Use as directed for Miralax / Gatorade Bowel Prep Kit busPIRone (BUSPAR) 5 mg tablet Take 1 tablet by mouth three times daily as needed. Melatonin 5 mg cap Take 1 capsule by mouth once daily. Aspirin 81 mg tab Take 1 tablet by mouth once daily. Take with food. polyethylene glycol 3350 (MIRALAX, GLYCOLAX) 17 gram/dose powder Use as directed for Miralax / Gatorade Bowel Prep Kit Gatorade Sports Drink Use as directed for Miralax / Gatorade Bowel Prep Kit No current facility-administered medications for this visit. Allergies: Zocor [Simvastatin] This note was partially generated using [employer] voice recognition system, and there may be some incorrect words, spellings, and punctuation that were not noted in checking the note before saving. Arely Foley PA-C * Niki Steiner RN - 11/04/2022 12:58 PM EDT Patient presents with: Right Knee - Follow Up, Post Op: 2 weeks 2 day postop Rt knee Arthroscopic I & D, syncovectomy 2 weeks 2 days post op Rt knee arthoscopic I & D, Synovectomy Pt reports 0/10 pain, denies any problems [facility] M[facility] Notes* Telephone Encounter - Sandra Bearden RN - 11/01/2022 9:26 AM EDT PATIENT INFORMATION Record ID: [id number] Patient Name: [facility]: [place]: [facility] Attending: Beni Miller Center: [facility] Medicine INSTRUCTIONS MA to remind patient of next upcoming appointment date, time, location All Clear All Clear SURVEY INFORMATION Medical/Nurse Rn Staffing: Sandra Bearden 1. Your discharge instructions are important in guiding you through the recovery process. Is there anything I could help you clarify on your discharge instructions? (Standard Question) Yes 2. We encourage a follow up appointment with your physician. Do you have one scheduled? If not; What is the name of the doctor you should be seeing for your follow-up care? (Standard Question) Yes 4. Have you experienced any side-effects that may be from your medications? (Red Flag Question) No 3. Many patients have concerns about their medications once they are home. Do you have any questions about getting or taking your medications? (Standard Question) No 5. Do you have any new or worsening symptoms? (Standard Question) No documented [facility] NoteHNO ID: [id number] Author: Jelena Ryan RN Service: PICC Team Author Type: Registered Nurse Type: Procedures Filed: 10/24/2022 9:51 AM Note Text: PICC NURSE INSERTION NOTE DATE OF PROCEDURE: October 24, 2022 TIME OF PROCEDURE: 914 ORDERING PHYSICIAN: Matheus Miller INFORMED CONSENT: Obtained per hospital policy. INDICATION FOR LINE PLACEMENT: COPAT CONDITION OF LINE PLACEMENT: Sterile PRIMARY PROCEDURALIST: Elaine Cárdenas RN FILM CASTING OPERATOR: Jelena Ryan RN PRE-PROCEDURE REVIEW ALLERGIES Allergen Reactions Zocor [Simvastatin] Myalgia Known History of Upper Venous Thrombosis: No Known History of Permanent Pacemaker or Automated Implanted Cardiac Device: No Previous Breast Surgery of Lymph Node Dissection: No Estimated Glomerular Filtration Rate Date Value Ref Range Status 10/20/2022 90 >=60 mL/min/1.73m? Final Comment: Estimated Glomerular Filtration Rate (eGFR) is calculated using the 2020 CKD-EPI creatinine equation. This equation utilizes serum creatinine, sex, and age as parameters. The creatinine assay has traceable calibration to isotope dilution-mass spectrometry. Refer to KDIGO guidelines for clinical interpretation. In patients with unstable renal function, e.g. those with acute kidney injury, the eGFR may not accurately reflect actual GFR. eGFR- Date Value Ref Range Status 01/25/2021 >60 Final History of Renal Disease: Yes - Acute Kidney Injury - GFR 50 Ultrasound Assessment Complete: Yes PROCEDURE NARRATIVE SAFE PRACTICE Hand Hygiene per Hospital Policy: Yes Skin Preparation Unit Dose Applicator Used: Chloraprep (CHG + alcohol), allowed to dry. Procedure Surface Cleansed with Antimicrobial Wipes: Yes Barriers Used by Proceduralist and all Assisting Personnel: Yes UNIVERSAL PROTOCOL / SAFETY CHECKLIST Procedure to be Performed: PICC Sign In: A Moment of CARE was completed. Personnel directly involved with the procedure wore the appropriate PPE (Personal Protective Equipment). Patient/Surrogate Stated/Verified: PATIENT VERIFIED(optional for EMERGENT procedures): Patient name, Date of , Relevant allergies, and The intended procedure Time Out Communication: Intended patient and procedure match the source documents. Consent documented and matches the intended procedure. Sign Out: SIGN OUT (optional for EMERGENT procedures): No specimen collected. Jelena Ryan RN CATHETER PLACEMENT Brand: BARD Lot: [id number] Number of Lumens: 1 Type of PICC: Power Injectable PICC Lumen Size: 4 [place] PLACEMENT TECHNIQUE Lidocaine: Yes, Lidocaine 1% Volume 2 mL Subcutaneous Modified Seldinger Technique Used to Place Line via the Right Brachial Ultrasound Guidance: Yes Number of Attempts at Insertion: 1 Ensured control of guidewire during all aspects of the procedure: Yes Accounted for entire guidewire upon removal: Yes Internal Length: 40 cm External Length: 0 cm Trim Length: 40 cm Mid-Arm Circumference: 29 centimeters Post Insertion Pain Level Related to Procedure: 0 Action Taken to Address Pain: None needed Verified Placement: Blood return and flushes with ease and Tip location system or device indicates the tip is located in the SVC/CAJ. Line was Flushed with 20 mL normal saline Line Secured with: Securement device Sterile Dressing Applied and Dated: Yes Sterile Caps on all Ports Prior to Leaving Procedure Area: Yes SPECIMENS: None COMPLICATIONS: None Patient Education Materials: Placed in chart [facility] Line Insertion checklist was utilized during this procedure. QUESTIONS or PROBLEMS: Call [phone] SIGNATURE: Jelena Ryan RN PATIENT NAME: David Aldrich DATE: October 24, 2022 TIME: 9:47 AM PAGER/CONTACT PHONE:[facility] [id number] NoteHNO ID: [id number] Author: Beni Miller MD Service: Hospital Medicine Author Type: Physician Type: Progress Notes Filed: 10/23/2022 3:26 PM Note Text: DEPARTMENT OF HOSPITAL MEDICINE PROGRESS NOTE Name: David Aldrich SERVICE DATE: October 23, 2022 SERVICE TIME: 3:19 PM Hospital Medicine/Primary Attending: Beni Miller MD NIGHT COVERAGE: pager # [phone] (Page between 5:30 PM - 7:30 AM) INTERVAL HPI: Feeling well and improved. No new symptoms. No fever. ASSESSMENT AND PLAN 61 year old female with hx of DM type II, hypertension, hyperlipidemia, depression, presents with septic arthritis of the right knee and a status post arthroscopic washout. #1 septic arthritis-status post arthroscopic washout on 10/19 Continue with Ancef as per culture and sensitivity-Staph aureus ID consulted and will write copat orders Pain is well managed, blood cultures - negative so far PT/OT recommend SNF, patient wants to got home with [facility] ECHO ; NO evidence of endocarditis Anticipate d/c in 1-2 days, with iv antibiotics for 6 weeks 2. DM type II-patient is on metformin along with sliding scale 3. Hypertension-continue with lisinopril hold nifedipine as BP is low normal 4. Hyperlipidemia-continue as currently on statin 5. depression-continue with home medications VTE Prophylaxis: Aspirin AND lovenox Disposition: SNF- but patient wants to go homewith [facility] Plan of care discussed with: Provider, RN, Patient MEDICATIONS: Current Facility-Administered Medications Medication Dose Route Frequency busPIRone 5 mg tab(s) (BUSPAR) 5 mg ORAL TID PRN ondansetron orally disintegrating 4 mg tab(s) (ZOFRAN ODT) 4 mg ORAL q 8 H PRN metFORMIN 500 mg tab(s) (GLUCOPHAGE) 500 mg ORAL DAILY wDINNER atorvastatin 20 mg tab(s) (LIPITOR) 20 mg ORAL DAILY lisinopril 5 mg tab(s) (ZESTRIL) 5 mg ORAL DAILY thiothixene 2 mg cap(s) (NAVANE) 2 mg ORAL BID albuterol 2.5 mg /3 mL (0.083 %) 2.5 mg (PROVENTIL) 3 mL INHALATION q 4 H PRN NIFEdipine ER 30 mg tab(s) (PROCARDIA XL) 30 mg ORAL DAILY buPROPion SR 150 mg tab(s) (ZYBAN SR; WELLBUTRIN SR) 150 mg ORAL BID ibuprofen 800 mg tab(s) (MOTRIN) 800 mg ORAL q [address] 20 mg tab(s) (PROTONIX) 20 mg ORAL BEFORE BREAKFAST DAILY zolpidem 10 mg tab(s) (AMBIEN) 10 mg ORAL AT BEDTIME PRN imipramine HCl 150 mg tab(s) (TOFRANIL) 150 mg ORAL AT BEDTIME HYDROcodone 5 mg - acetaminophen 325 mg tablet (NORCO) 1 tablet ORAL q 4 H PRN aspirin 81 mg chewable tab(s) 81 mg ORAL DAILY dextrose 40 % 15 g 15 g ORAL PRN Or glucagon 1 mg injection 1 mg INTRAMUSCULAR PRN Or dextrose 10% iv bolus 12.5 g INTRAVENOUS PRN insulin lispro injection (rapid acting) (HumaLOG) SUBCUTANEOUS w MEALS insulin lispro injection (rapid acting) (HumaLOG) SUBCUTANEOUS AT BEDTIME sodium chloride 0.9 % (flush) 2-10 mL (BD POSIFLUSH) 2-10 mL INTRAVENOUS DIRECTED PRN And perflutren lipid microspheres 1.1 mg/mL 1.3 mL injection (DEFINITY) 1.3 mL INTRAVENOUS DIRECTED PRN ceFAZolin iv piggyback 2 g in D5W (iso-osmotic) 100 mL (ANCEF) 2 g INTRAVENOUS q 8 HR NaCl 0.9% iv flush bag 20 mL INTRAVENOUS PRN PHYSICAL EXAM: Blood pressure (!) 111/42, pulse (!) 53, temperature 36.9 ?C (98.4 ?F), temperature source Oral, resp. rate 12, height 154.9 cm (5' 1"), weight 66.7 kg (147 lb), last menstrual period 11/13/2009, SpO2 95 %. GENERAL: alert, no distress, cooperative SKIN: No rash or lesions OROPHARYNX: Lips, mucosa, and tongue normal. Oropharynx moist. LUNGS: Lungs clear to auscultation. Good diaphragmatic excursion. CARDIAC: normal S1 and S2; no rubs, murmurs, or gallops. No JVD ABDOMEN: Abdomen soft, non-tender. BS normal. No masses or organomegaly. EXTREMITIES: right knee is covered with dressinbg NEURO: Negative DATA: Recent Labs 10/20/22 1727 10/18/22 1327 WBC -- 11.89* HB -- 12.4 HCT -- 35.8* PLT -- 537* MCV -- 91.8 RDWCV -- 12.6 NEUTP -- 66.2 ABSNEUT -- 7.87* LYMPHP -- 20.4 MONOP -- 10.1 CREAT 0.76 -- (Some elements copied from note from yesterday, which have been updated where appropriate, and reflect current medical decision making from today October 23, 2022) SIGNATURE: Beni Miller MD PAGER: [phone] DATE: October 23, 2022 TIME: 3:19 PMCherrington [id number] NoteHNO ID: [id number] Author: Beni Miller MD Service: Hospital Medicine Author Type: Physician Type: Progress Notes Filed: 10/22/2022 8:44 AM Note Text: DEPARTMENT OF HOSPITAL MEDICINE PROGRESS NOTE Name: David Aldrich SERVICE DATE: October 22, 2022 SERVICE TIME: 8:41 AM Hospital Medicine/Primary Attending: Beni Miller MD NIGHT COVERAGE: pager # [phone] (Page between 5:30 PM - 7:30 AM) INTERVAL HPI: Feeling well and improved. No new symptoms. No fever.Patient had 2 episodes of water stools yesterday and c diff is pending ASSESSMENT AND PLAN 61 year old female with hx of DM type II, hypertension, hyperlipidemia, depression, presents with septic arthritis of the right knee and a status post arthroscopic washout. #1 septic arthritis-status post arthroscopic washout. Continue with Ancef as per culture and sensitivity-Staph aureus ID consulted and will write copat orders Pain is well managed, Follow up on blood cultures PT/OT pending 2. DM type II-patient is on metformin along with sliding scale 3. Hypertension-continue with nifedipine and lisinopril. 4. Hyperlipidemia-continue as currently on statin 5. depression-continue with home medications. Plan for today Echo Follow blood culture and c diff PICC LINE VTE Prophylaxis: aspirin Disposition: SNF- but patient wants to go [place] with [facility] Plan of care discussed with: Provider, RN, Patient MEDICATIONS: Current Facility-Administered Medications Medication Dose Route Frequency busPIRone 5 mg tab(s) (BUSPAR) 5 mg ORAL TID PRN ondansetron orally disintegrating 4 mg tab(s) (ZOFRAN ODT) 4 mg ORAL q 8 H PRN metFORMIN 500 mg tab(s) (GLUCOPHAGE) 500 mg ORAL DAILY wDINNER atorvastatin 20 mg tab(s) (LIPITOR) 20 mg ORAL DAILY lisinopril 5 mg tab(s) (ZESTRIL) 5 mg ORAL DAILY thiothixene 2 mg cap(s) (NAVANE) 2 mg ORAL BID albuterol 2.5 mg /3 mL (0.083 %) 2.5 mg (PROVENTIL) 3 mL INHALATION q 4 H PRN NIFEdipine ER 30 mg tab(s) (PROCARDIA XL) 30 mg ORAL DAILY buPROPion SR 150 mg tab(s) (ZYBAN SR; WELLBUTRIN SR) 150 mg ORAL BID ibuprofen 800 mg tab(s) (MOTRIN) 800 mg ORAL q [address] 20 mg tab(s) (PROTONIX) 20 mg ORAL BEFORE BREAKFAST DAILY zolpidem 10 mg tab(s) (AMBIEN) 10 mg ORAL AT BEDTIME PRN imipramine HCl 150 mg tab(s) (TOFRANIL) 150 mg ORAL AT BEDTIME HYDROcodone 5 mg - acetaminophen 325 mg tablet (NORCO) 1 tablet ORAL q 4 H PRN aspirin 81 mg chewable tab(s) 81 mg ORAL DAILY dextrose 40 % 15 g 15 g ORAL PRN Or glucagon 1 mg injection 1 mg INTRAMUSCULAR PRN Or dextrose 10% iv bolus 12.5 g INTRAVENOUS PRN insulin lispro injection (rapid acting) (HumaLOG) SUBCUTANEOUS w MEALS insulin lispro injection (rapid acting) (HumaLOG) SUBCUTANEOUS AT BEDTIME sodium chloride 0.9 % (flush) 2-10 mL (BD POSIFLUSH) 2-10 mL INTRAVENOUS DIRECTED PRN And perflutren lipid microspheres 1.1 mg/mL 1.3 mL injection (DEFINITY) 1.3 mL INTRAVENOUS DIRECTED PRN ceFAZolin iv piggyback 2 g in D5W (iso-osmotic) 100 mL (ANCEF) 2 g INTRAVENOUS q 8 HR NaCl 0.9% iv flush bag 20 mL INTRAVENOUS PRN PHYSICAL EXAM: Blood pressure (!) 134/47, pulse (!) 57, temperature 37.1 ?C (98.8 ?F), temperature source Oral, resp. rate 16, height 154.9 cm (5' 1"), weight 66.7 kg (147 lb), last menstrual period 11/13/2009, SpO2 94 %. GENERAL: alert, no distress, cooperative SKIN: No rash or lesions OROPHARYNX: Lips, mucosa, and tongue normal. Oropharynx moist. LUNGS: Lungs clear to auscultation. Good diaphragmatic excursion. CARDIAC: normal S1 and S2; no rubs, murmurs, or gallops. No JVD ABDOMEN: Abdomen soft, non-tender. BS normal. No masses or organomegaly. EXTREMITIES: right knee has a dressing NEURO: Negative DATA: Recent Labs 10/20/22 1727 10/18/22 1327 WBC -- 11.89* HB -- 12.4 HCT -- 35.8* PLT -- 537* MCV -- 91.8 RDWCV -- 12.6 NEUTP -- 66.2 ABSNEUT -- 7.87* LYMPHP -- 20.4 MONOP -- 10.1 CREAT 0.76 -- (Some elements copied from note from yesterday, which have been updated where appropriate, and reflect current medical decision making from today October 22, 2022) SIGNATURE: Beni Miller MD PAGER: [phone] DATE: October 22, 2022 TIME: 8:41 AMCherrington [id number] NoteHNO ID: [id number] Author: Beni Miller MD Service: Hospital Medicine Author Type: Physician Type: Progress Notes Filed: 10/21/2022 12:20 PM Note Text: DEPARTMENT OF HOSPITAL MEDICINE CONSULT PROGRESS NOTE Name: David Aldrich SERVICE DATE: October 21, 2022 SERVICE TIME: 12:17 PM Hospital Medicine/Primary Attending: Beni Miller MD NIGHT COVERAGE: pager # [phone] (Page between 5:30 PM - 7:30 AM) INTERVAL HPI: Feeling well and improved. No new symptoms. No fever. ASSESSMENT AND PLAN 61 year old female with hx of DM type II, hypertension, hyperlipidemia, depression, presents with septic arthritis of the right knee and a status post arthroscopic washout. #1 septic arthritis-status post arthroscopic washout. Continue with Ancef as per culture and sensitivity-Staph aureus ID consulted and will write copat orders Pain is well managed, Follow up on blood cultures PT/OT pending 2. DM type II-patient is on metformin along with sliding scale 3. Hypertension-continue with nifedipine and lisinopril. 4. Hyperlipidemia-continue as currently on statin 5. depression-continue with home medications. VTE Prophylaxis: Per primary team, currently patient is on aspirin Plan of care discussed with: Provider, RN, Patient MEDICATIONS: Current Facility-Administered Medications Medication Dose Route Frequency busPIRone 5 mg tab(s) (BUSPAR) 5 mg ORAL TID PRN ondansetron orally disintegrating 4 mg tab(s) (ZOFRAN ODT) 4 mg ORAL q 8 H PRN metFORMIN 500 mg tab(s) (GLUCOPHAGE) 500 mg ORAL DAILY wDINNER atorvastatin 20 mg tab(s) (LIPITOR) 20 mg ORAL DAILY lisinopril 5 mg tab(s) (ZESTRIL) 5 mg ORAL DAILY thiothixene 2 mg cap(s) (NAVANE) 2 mg ORAL BID albuterol 2.5 mg /3 mL (0.083 %) 2.5 mg (PROVENTIL) 3 mL INHALATION q 4 H PRN NIFEdipine ER 30 mg tab(s) (PROCARDIA XL) 30 mg ORAL DAILY buPROPion SR 150 mg tab(s) (ZYBAN SR; WELLBUTRIN SR) 150 mg ORAL BID ibuprofen 800 mg tab(s) (MOTRIN) 800 mg ORAL q [address] 20 mg tab(s) (PROTONIX) 20 mg ORAL BEFORE BREAKFAST DAILY zolpidem 10 mg tab(s) (AMBIEN) 10 mg ORAL AT BEDTIME PRN imipramine HCl 150 mg tab(s) (TOFRANIL) 150 mg ORAL AT BEDTIME ceFAZolin iv piggyback 1 g in D5W (iso-osmotic) 50 mL (ANCEF) 1 g INTRAVENOUS q 8 HR HYDROcodone 5 mg - acetaminophen 325 mg tablet (NORCO) 1 tablet ORAL q 4 H PRN aspirin 81 mg chewable tab(s) 81 mg ORAL DAILY dextrose 40 % 15 g 15 g ORAL PRN Or glucagon 1 mg injection 1 mg INTRAMUSCULAR PRN Or dextrose 10% iv bolus 12.5 g INTRAVENOUS PRN insulin lispro injection (rapid acting) (HumaLOG) SUBCUTANEOUS w MEALS insulin lispro injection (rapid acting) (HumaLOG) SUBCUTANEOUS AT BEDTIME PHYSICAL EXAM: Blood pressure 120/57, pulse 72, temperature 37.6 ?C (99.7 ?F), temperature source Oral, resp. rate 16, height 154.9 cm (5' 1"), weight 66.7 kg (147 lb), last menstrual period 11/13/2009, SpO2 90 %. GENERAL: alert, no distress, cooperative SKIN: No rash or lesions OROPHARYNX: Lips, mucosa, and tongue normal. Oropharynx moist. LUNGS: Lungs clear to auscultation. Good diaphragmatic excursion. CARDIAC: normal S1 and S2; no rubs, murmurs, or gallops. No JVD ABDOMEN: Abdomen soft, non-tender. BS normal. No masses or organomegaly. EXTREMITIES: RIGHT LEG coverd with dressing NEURO: Negative DATA: Recent Labs 10/20/22 1727 10/18/22 1327 WBC -- 11.89* HB -- 12.4 HCT -- 35.8* PLT -- 537* MCV -- 91.8 RDWCV -- 12.6 NEUTP -- 66.2 ABSNEUT -- 7.87* LYMPHP -- 20.4 MONOP -- 10.1 CREAT 0.76 -- (Some elements copied from note from yesterday, which have been updated where appropriate, and reflect current medical decision making from today October 21, 2022) SIGNATURE: Beni Miller MD PAGER: [phone] DATE: October 21, 2022 TIME: 12:17 PMCherrington [id number] NoteHNO ID: [id number] Author: Beni Miller MD Service: Hospital Medicine Author Type: Physician Type: Progress Notes Filed: 10/20/2022 12:51 PM Note Text: DEPARTMENT OF HOSPITAL MEDICINE PROGRESS CONSULT NOTE Name: David Aldrich SERVICE DATE: October 20, 2022 SERVICE TIME: 12:46 PM Hospital Medicine/Primary Attending: Beni Miller MD NIGHT COVERAGE: pager # [phone] (Page between 5:30 PM - 7:30 AM) INTERVAL HPI: Feeling well and improved. No new symptoms. No fever, drain was removed by orthopedics today ASSESSMENT AND PLAN 61 year old female with hx of DM type II, hypertension, hyperlipidemia, depression, presents with septic arthritis of the right knee and a status post arthroscopic washout. #1 septic arthritis-status post arthroscopic washout. Continue with Ancef as per culture and sensitivity-Staph aureus ID consult Pain is well managed, 2. DM type II-patient is on metformin along with sliding scale 3. Hypertension-continue with nifedipine and lisinopril. 4. Hyperlipidemia-continue as currently on statin #5 depression-continue with home medications. Re VTE Prophylaxis: Per primary team, currently patient is on aspirin Disposition: Likely discharge tomorrow Plan of care discussed with: Provider, RN, Patient MEDICATIONS: Current Facility-Administered Medications Medication Dose Route Frequency busPIRone 5 mg tab(s) (BUSPAR) 5 mg ORAL TID PRN ondansetron orally disintegrating 4 mg tab(s) (ZOFRAN ODT) 4 mg ORAL q 8 H PRN metFORMIN 500 mg tab(s) (GLUCOPHAGE) 500 mg ORAL DAILY wDINNER atorvastatin 20 mg tab(s) (LIPITOR) 20 mg ORAL DAILY lisinopril 5 mg tab(s) (ZESTRIL) 5 mg ORAL DAILY thiothixene 2 mg cap(s) (NAVANE) 2 mg ORAL BID albuterol 2.5 mg /3 mL (0.083 %) 2.5 mg (PROVENTIL) 3 mL INHALATION q 4 H PRN NIFEdipine ER 30 mg tab(s) (PROCARDIA XL) 30 mg ORAL DAILY buPROPion SR 150 mg tab(s) (ZYBAN SR; WELLBUTRIN SR) 150 mg ORAL BID ibuprofen 800 mg tab(s) (MOTRIN) 800 mg ORAL q [address] 20 mg tab(s) (PROTONIX) 20 mg ORAL BEFORE BREAKFAST DAILY zolpidem 10 mg tab(s) (AMBIEN) 10 mg ORAL AT BEDTIME PRN imipramine HCl 150 mg tab(s) (TOFRANIL) 150 mg ORAL AT BEDTIME ceFAZolin iv piggyback 1 g in D5W (iso-osmotic) 50 mL (ANCEF) 1 g INTRAVENOUS q 8 HR HYDROcodone 5 mg - acetaminophen 325 mg tablet (NORCO) 1 tablet ORAL q 4 H PRN aspirin 81 mg chewable tab(s) 81 mg ORAL DAILY dextrose 40 % 15 g 15 g ORAL PRN Or glucagon 1 mg injection 1 mg INTRAMUSCULAR PRN Or dextrose 10% iv bolus 12.5 g INTRAVENOUS PRN insulin lispro injection (rapid acting) (HumaLOG) SUBCUTANEOUS w MEALS insulin lispro injection (rapid acting) (HumaLOG) SUBCUTANEOUS AT BEDTIME PHYSICAL EXAM: Blood pressure (!) 134/49, pulse (!) 59, temperature 37.3 ?C (99.1 ?F), temperature source Oral, resp. rate 20, height 154.9 cm (5' 1"), weight 66.7 kg (147 lb), last menstrual period 11/13/2009, SpO2 94 %. GENERAL: alert, no distress, cooperative SKIN: No rash or lesions OROPHARYNX: Lips, mucosa, and tongue normal. Oropharynx moist. LUNGS: Lungs clear to auscultation. Good diaphragmatic excursion. CARDIAC: normal S1 and S2; no rubs, murmurs, or gallops. No JVD ABDOMEN: Abdomen soft, non-tender. BS normal. No masses or organomegaly. EXTREMITIES: Right leg is covered with dressing. NEURO: Negative DATA: Recent Labs 10/18/22 1327 WBC 11.89* HB 12.4 HCT 35.8* PLT 537* MCV 91.8 RDWCV 12.6 NEUTP 66.2 ABSNEUT 7.87* LYMPHP 20.4 MONOP 10.1 (Some elements copied from note from yesterday, which have been updated where appropriate, and reflect current medical decision making from today October 20, 2022) SIGNATURE: Beni Miller MD PAGER: [phone] DATE: October 20, 2022 TIME: 12:46 PMCherrington [id number] NoteHNO ID: [id number] Author: Doug Quiroz MD Service: Orthopaedic Surgery Author Type: Physician Type: Progress Notes Filed: 10/20/2022 12:16 PM Note Text: Doug Quiroz MD Department of Orthopaedics [place] [id number] Dept: [phone] October 20, 2022 CHIEF COMPLAINT: POD#1 right knee. HPI SHe's feeling better overall. Mild pain and swelling, appropriate. ASSESSMENT: Right septic knee, s/p arthroscopy wash out SUMMARY/PLAN: Looks like initial cultures are MSSA. I suspect we'll be able to transition her to orals after a day or two of IVAbx. Appreciate ID's recommendations Drain pulled today without complications Exam: Mild and appropriate swelling. Only bloody discharge from the drain site. Gentle motion and palpation without significant pain Supporting Information Below: Medications: Current Facility-Administered Medications Medication Dose Route Frequency busPIRone 5 mg tab(s) (BUSPAR) 5 mg ORAL TID PRN ondansetron orally disintegrating 4 mg tab(s) (ZOFRAN ODT) 4 mg ORAL q 8 H PRN metFORMIN 500 mg tab(s) (GLUCOPHAGE) 500 mg ORAL DAILY wDINNER atorvastatin 20 mg tab(s) (LIPITOR) 20 mg ORAL DAILY lisinopril 5 mg tab(s) (ZESTRIL) 5 mg ORAL DAILY thiothixene 2 mg cap(s) (NAVANE) 2 mg ORAL BID albuterol 2.5 mg /3 mL (0.083 %) 2.5 mg (PROVENTIL) 3 mL INHALATION q 4 H PRN NIFEdipine ER 30 mg tab(s) (PROCARDIA XL) 30 mg ORAL DAILY buPROPion SR 150 mg tab(s) (ZYBAN SR; WELLBUTRIN SR) 150 mg ORAL BID ibuprofen 800 mg tab(s) (MOTRIN) 800 mg ORAL q [address] 20 mg tab(s) (PROTONIX) 20 mg ORAL BEFORE BREAKFAST DAILY zolpidem 10 mg tab(s) (AMBIEN) 10 mg ORAL AT BEDTIME PRN imipramine HCl 150 mg tab(s) (TOFRANIL) 150 mg ORAL AT BEDTIME ceFAZolin iv piggyback 1 g in D5W (iso-osmotic) 50 mL (ANCEF) 1 g INTRAVENOUS q 8 HR HYDROcodone 5 mg - acetaminophen 325 mg tablet (NORCO) 1 tablet ORAL q 4 H PRN aspirin 81 mg chewable tab(s) 81 mg ORAL DAILY dextrose 40 % 15 g 15 g ORAL PRN Or glucagon 1 mg injection 1 mg INTRAMUSCULAR PRN Or dextrose 10% iv bolus 12.5 g INTRAVENOUS PRN insulin lispro injection (rapid acting) (HumaLOG) SUBCUTANEOUS w MEALS insulin lispro injection (rapid acting) (HumaLOG) SUBCUTANEOUS AT BEDTIME Allergies: Zocor [Simvastatin] Doug Quiroz, [facility], [id number] NoteHNO ID: [id number] Author: Vivien Madrigal DO Service: Hospital Medicine Author Type: Physician Type: Progress Notes Filed: 10/19/2022 9:38 PM Note Text: DEPARTMENT OF HOSPITAL MEDICINE INITIAL CONSULT SERVICE DATE: 10/19/2022 SERVICE TIME: 4:43 PM Primary Care Physician: Lulu Swanson APRN.[facility] NIGHT AND WEEKEND COVERAGE: [place] COVERAGE: Days: [phone], please page attending physician. Nights: [phone], please page [place] [facility] Night coverage pager [phone]. REASON FOR CONSULT: medical management REQUESTING PHYSICIAN: Dr Doug Quiroz Subjective CHIEF COMPLAINT: right knee septic joint HPI: This is a pleasant, 61-year-old female has been having some swelling and troubles with the right knee for about 8 days or so now. She went to urgent care a few times to get evaluated secondary to the swelling and pain in the knee. She was evaluated in emergency room and checked for a DVT. She then followed up with orthopedics and received a cortisone injection with aspiration in the aspiration unexpectedly showed staph aureus. Aspiration was then repeated to get full cell count and evaluation and it was certainly suspicious for an infectious process as opposed to inflammation or gout. The patient was admitted to have irrigation and debridment of the joint . We have been consulted for medical management pt states she is feeling well tonight no complaints of pain Is the Patient Experiencing Pain: No: 0 on a scale of 0 to 10 PAST MEDICAL HISTORY Diagnosis Date Arrhythmia Bradycardia Diabetes mellitus with peripheral artery disease (HCC) 03/06/2015 H/O percutaneous left heart catheterization May, negative--[facility] History of rectal polypectomy 09/23/201712/2014: hyperplastic polyp Hyperlipidemia LDL goal < 100 01/25/2013 Hypertension Major depressive disorder, recurrent episode, unspecified Non-alcoholic fatty liver disease 10/13/2014 Other and unspecified hyperlipidemia Other chronic nonalcoholic liver disease 01/16 fatty liver disease Peripheral arterial disease (HCC) 03/06/2015 Recurrent major depressive disorder, in full remission (HCC) 03/10/2017 Snoring Type 2 diabetes mellitus with stage 3 chronic kidney disease, without long-term current use of insulin (HCC) 05/11/2016 PAST SURGICAL HISTORY Procedure Laterality Date APPENDECTOMY 1971 CAROTID ENDARTERECTOMY 06/16/2012 Right carotid COLONOSCOPY 12/12/14 Repeat 2017 FAMILY HISTORY Problem Relation Age of Onset Heart Mother Diabetes Father other (Parkinson's disease [Other]) Brother Social History Tobacco Use Smoking status: Every Day Packs/day: 1.00 Years: 25.00 Additional pack years: 0.00 Total pack years: 25.00 Types: Cigarettes Smokeless tobacco: Never Vaping Use Vaping Use: Never used Substance Use Topics Alcohol use: Not Currently Comment: quit 04/18 Drug use: No MEDICATIONS: Reviewed cefdinir (OMNICEF) 300 mg capsule, Take 1 capsule by mouth twice daily., Disp: 20 capsule, Rfl: 0, 10/19/2022 zolpidem (AMBIEN) 10 mg, Take 1 tablet by mouth at bedtime as needed (insomnia) for up to 90 days., Disp: 30 tablet, Rfl: 1, 10/18/2022 ibuprofen (MOTRIN) 800 mg tablet, Take 1 tablet by mouth every 8 hours as needed for pain. Take with food., Disp: 30 tablet, Rfl: 0, 10/18/2022 at 1700 imipramine HCl (TOFRANIL) 50 mg tablet, Take 3 tablets by mouth daily at bedtime., Disp: 270 tablet, Rfl: 0, 10/18/2022 atorvastatin (LIPITOR) 20 mg tablet, Take 1 tablet by mouth once daily., Disp: 90 tablet, Rfl: 3, 10/19/2022 buPROPion SR (WELLBUTRIN SR) 150 mg 12 hr tablet, One pill by mouth once daily X 3 days, then increase to twice daily. Take second dose before 6PM. Try to stop smoking on day 5-7., Disp: 60 tablet, Rfl: 2, 10/19/2022 thiothixene (NAVANE) 1 mg capsule, Take 2 capsules by mouth twice daily., Disp: 120 capsule, Rfl: 11, 10/19/2022 NIFEdipine XL (ADALAT CC) 30 mg 24 hr tablet, take 1 tablet by mouth once daily, Disp: 90 tablet, Rfl: 3, 10/19/2022 metFORMIN (GLUCOPHAGE) 500 mg tablet, take 1 tablet by mouth once daily with dinner, Disp: 30 tablet, Rfl: 11, 10/19/2022 lisinopril (ZESTRIL, PRINIVIL) 5 mg tablet, take 1 tablet by mouth once daily, Disp: 30 tablet, Rfl: 11, 10/19/2022 busPIRone (BUSPAR) 5 mg tablet, Take 1 tablet by mouth three times daily as needed., Disp: 90 tablet, Rfl: 1, 10/19/2022 Melatonin 5 mg cap, Take 1 capsule by mouth once daily., Disp: , Rfl: , 10/18/2022 cyclobenzaprine (FLEXERIL) 5 mg tablet, Take 1 tablet by mouth three times daily as needed., Disp: 90 tablet, Rfl: 1, Unknown guaiFENesin (MUCINEX) 600 mg 12 hr tablet, Take 2 tablets by mouth twice daily. (Patient not taking: Reported on 10/16/2022), Disp: 60 tablet, Rfl: 0, Unknown zolpidem (AMBIEN) 10 mg, Take 1 tablet by mouth daily at bedtime for 30 days. Do not start before March 16, 2022., Disp: 30 tablet, Rfl: 0 ondansetron orally disintegrating (ZOFRAN ODT) 4 mg disintegrating (more content not included)...[id number] NoteHNO ID: [id number] Author: Alfredito Santos APRN.QUALITY SYSTEMS MANAGER Service: Anesthesiology Author Type: Nurse Diabetes Territory Manager Type: Anesthesia Procedure Notes Filed: 10/19/2022 2:17 PM Note Text: ANESTHESIOLOGY PROCEDURE NOTE Airway General Information Procedure Start Time/Medication Administration: 10/19/2022 1:58 PM Patient location during procedure: OR Timeout Performed Pre-procedure: timeout performed Consent Obtained: Yes 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 QUALITY SYSTEMS MANAGER: Alfredito Santos APRN.QUALITY SYSTEMS MANAGER Indications and Patient Condition Indications for airway management: anesthesia Preoxygenated: yes anesthesia circuit Method: sleep Difficult Mask: No Final Airway Details Final airway type: supraglottic airway Number of attempts at approach: 1 Final Supraglottic Airway: i-gel Size 4 Seal Adequate: yes Failed airway: no Unrecognized esophageal intubation: no Airway not difficult SIGNATURE: Alfredito Santos APRN.QUALITY SYSTEMS MANAGER PATIENT NAME: David Aldrich DATE: October 19, 2022 TIME: 2:16 PM CSN: [id number] History of Present illness Narrative* Doug Quiroz MD - 10/19/2022 9:43 AM EDT Made aware of patient's repeat aspirate of the right knee. High cell count and high neutrophil percentage. Prior aspiration showed suspected Staph aureus and were initially not sure if this was a contaminant or not. With her repeat aspiration it certainly appears she has a septic right knee joint. We will make plans for her to get directly admitted and come through registration through the emergency room for surgery today. Patient has been n.p.o. and will arrange for knee arthroscopy for washout this afternoon. Doug Quiroz MD documented in this encounter[facility] History of Present illness Narrative* Gabe Hall V, DO - 10/18/2022 1:04 PM EDT SUBJECTIVE: This is a 61 year old female that is here today for follow-up of right knee effusion and results. Right knee aspiration performed 2 days ago showed positive culture with rare staph aureus. REpeating aspiration and labs today Patient states knee felt better yesterday, but she worked last night and today it is more achy and swollen than it was yesterday. Denies fever, chills, redness or warmth of the knee joint. OBJECTIVE: Patient is alert, pleasant, no acute distress. Right knee shows effusion. No joint redness or palpable tenderness. Joint is not excessively warm to touch. ASSESSMENT: knee effusion right- initial synovial culture showed rare s. Aureus. PLAN: Repeat aspiration sent for culture, cell count, differential, and also obtain CBC, sed rate and CRPtoday. Requested Prescriptions Signed Prescriptions Disp Refills cefdinir (OMNICEF) 300 mg capsule 20 capsule 0 Sig: Take 1 capsule by mouth twice daily. JOINT ASPIRATION Joint Site(s): right knee The proposed risks versus benefits of local anesthetic and aspiration were discussed in detail. Thepatient verbalizes understanding and elects to proceed with the procedure. An audible time out was done, identifying the patient's name and medical record number, the procedure verified with the patient including the position of the patient, the correct procedure site, and confirmation with the physician and lan support specialist. Under sterile technique following verbal consent the patient underwent a right knee injection with 5cc of Lidocaine 1% followed by an aspiration of 20 cc alecia colored fluid from the joint. The patient tolerated the procedure well without complications. Verbal instructions on post-aspiration care were given. Patient left in satisfactory condition. Patient to f/u with office for results. Gabe Hall DO Electronic Signature Gabe Hall DO * Dina Diaz Ma - 10/18/2022 12:47 PM EDT [facility]B [facility] INTAKE FLOWSHEET DATA Pain Pain Level: 7 Pain Location: Knee-Right Description: Aching, Sharp Duration Amount of Time: (ongoing) Frequency: Continuous Intervention/Comfort measure: Other: See comment (none) documented in this encounterAkron [facility]09-[facility]23 Telephone encounter Note * Telephone Encounter - Kell Roy APRN.[facility] - 10/16/2022 8:09 PM EDT The following approved medication requests have been transmitted electronically. Requested Prescriptions Pending Prescriptions Disp Refills zolpidem (AMBIEN) 10 mg 30 tablet 1 Sig: Take 1 tablet by mouth at bedtime as needed (insomnia) for up to 90 days. Kell Roy APRN.CNP PDMP website checked and validated. All prescriptions have been APPROPRIATELY filled. No suspiciousactivity was identified. 10/16/2022 by Kell Roy APRN.CNP [facility]09-06-[facility] Miscellaneous Notes* Telephone Encounter - Kell Roy APRN.CNP - 10/16/2022 8:09 PM EDT The following approved medication requests have been transmitted electronically. Requested Prescriptions Pending Prescriptions Disp Refills zolpidem (AMBIEN) 10 mg 30 tablet 1 Sig: Take 1 tablet by mouth at bedtime as needed (insomnia) for up to 90 days. Kell Roy APRN.CNP PDMP website checked and validated. All prescriptions have been APPROPRIATELY filled. No suspiciousactivity was identified. 10/16/2022 by Kell Roy APRN.CNP * Telephone Encounter - Catie Kwok - 10/11/2022 4:29 PM EDT Patient has been identified by name and date of : Yes Last office visit in this department: 09/16/2022 RX INSTRUCTIONS: Patient aware RX will be sent to pharmacy. No need to notify patient. Patient phones requesting refills as follows: Requested Prescriptions Pending Prescriptions Disp Refills zolpidem (AMBIEN) 10 mg 30 tablet 0 Sig: Take 1 tablet by mouth at bedtime as needed (insomnia) for up to 90 days. Please review and advise. Catie Kwok documented in this encounterAkron [facility]09-06-2023 History of Present illness Narrative* Yosef Rodas RT(R) - 10/16/2022 2:30 PM EDT Radiology Service Progress Note PATIENT NAME: David Aldrich DATE OF SERVICE: October 16, 2022 TIME: 2:03 PM PATIENT IDENTITY VERIFICATION COMPLETED USING TWO (2) IDENTIFIERS: Name and Date of confirmedby patient verbally. FALL SCREENING: Has the patient had 2 falls in the last year or 1 fall with injury or currently using an Ambulatory Assistive Device (Walker, Cane, Wheelchair, Crutches, etc.)? No PATIENT GENDER DATA: Female. status: : No status: NO. PATIENT RELEVANT IMPLANT DATA REVIEWED: Not Applicable RADIOLOGY DEPARTMENT: General X-ray: Exam(s) Completed: Lower Extremity X- Ray(s): Knee, AP / Lat / Tunne / Merchant Right and Wt. Bearing PERIPHERAL IV DATA: Not applicable SIGNED BY: RT Liudmila(R) October 16, 2022 2:03 PM documented in this encounterAkron [facility]09-05-2023 Instructions* Patient Instructions* Rianna Wilkerson APRN.CNP - 10/15/2022 5:36 PM EDT ASSESSMENT/PLAN: 1. Calf swelling - ICD9: 729.81, ICD10: M79.89 - patient has already had negative US of this extremity on 10/09 - d/c use of compression sleeve. - rest leg, elevate, ice application 2-3 times daily. - follow up with ortho tomorrow. - Follow-up with your PCP in 3-5 days if symptoms have not improved or sooner if symptoms worsen - Discussed red flags and need for immediate medical evaluation if any occur. - Discussed supportive care treatment with rest and analgesia. - Discussed expected course of illness Rianna Wilkerson APRN.CNP documented in this encounterAkron [facility]09-05-2023 History of Present illness Narrative* Rianna Wilkerson APRN.CNP - 10/15/2022 5:26 PM EDT Subjective HPI David Aldrich is a 61 year old female who presents with right lower leg swelling. This was present on 10/09 and she was seen here, referred in ER due to concerns for DVT. US was done in ER and was negative. She was seen here on 10/11, referred to ortho and she has an appointment tomorrow with orthopedics. She states she was advised to use a knee compression sleeve for the swelling, she did this and the swelling is worse and now in her lower leg and ankle also. She notes this occurred after being on her feet all day. Review of Systems Constitutional: Negative for chills and fever. Musculoskeletal: Positive for joint pain. Negative for falls. Skin: Negative for itching and rash. BP 102/64 Pulse 102 Temp (!) 38.1 C (100.6 F) Resp 18 Wt 67.6 kg (149 lb) LMP 11/13/2009 SpO2 100% BMI 28.15 kg/m p PAST MEDICAL HISTORY Diagnosis Date Arrhythmia Bradycardia Diabetes mellitus with peripheral artery disease (HCC) 03/06/2015 H/O percutaneous left heart catheterization May, negative--[facility] History of rectal polypectomy 09/23/201712/2014: hyperplastic polyp Hyperlipidemia LDL goal < 100 01/25/2013 Hypertension Major depressive disorder, recurrent episode, unspecified Non-alcoholic fatty liver disease 10/13/2014 Other and unspecified hyperlipidemia Other chronic nonalcoholic liver disease 01/16 fatty liver disease Peripheral arterial disease (HCC) 03/06/2015 Recurrent major depressive disorder, in full remission (HCC) 03/10/2017 Snoring Type 2 diabetes mellitus with stage 3 chronic kidney disease, without long-term current use of insulin (HCC) 05/11/2016 PAST SURGICAL HISTORY Procedure Laterality Date APPENDECTOMY 1971 CAROTID ENDARTERECTOMY 06/16/2012 Right carotid COLONOSCOPY 12/12/14 Repeat 2018 ALLERGIES Zocor [Simvastatin] MEDICATIONS ibuprofen (MOTRIN) 800 mg tablet Take 1 tablet by mouth every 8 hours as needed for pain. Take withfood. cyclobenzaprine (FLEXERIL) 5 mg tablet Take 1 tablet by mouth three times daily as needed. imipramine HCl (TOFRANIL) 50 mg tablet Take 3 tablets by mouth daily at bedtime. zolpidem (AMBIEN) 10 mg Take 1 tablet by mouth at bedtime as needed (insomnia) for up to 90 days. atorvastatin (LIPITOR) 20 mg tablet Take 1 tablet by mouth once daily. buPROPion SR (WELLBUTRIN SR) 150 mg 12 hr tablet One pill by mouth once daily X 3 days, then increase to twice daily. Take second dose before 6PM. Try to stop smoking on day 5-7. guaiFENesin (MUCINEX) 600 mg 12 hr tablet Take 2 tablets by mouth twice daily. zolpidem (AMBIEN) 10 mg Take 1 tablet by mouth daily at bedtime for 30 days. Do not start before March 16, 2022. ondansetron orally disintegrating (ZOFRAN ODT) 4 mg disintegrating tablet Take 1 tablet by mouth every 8 hours as needed for nausea/vomiting. nicotine (NICODERM) 21 mg/24 hr Apply 1 Patch as directed every 24 hours. Apply a patch daily for 6weeks, then start 14mg patches nicotine (NICODERM) 14 mg/24 hr Apply 1 Patch as directed every 24 hours. No smoking with patch. Apply a patch daily for 2 weeks, then start 7mg patches nicotine (NICODERM) 7 mg/24 hr Apply 1 Patch as directed every 24 hours. Apply a patch daily for 2 weeks omeprazole (PRILOSEC) 20 mg capsule Take 1 capsule by mouth daily before breakfast. 1/2 hr before meal. albuterol HFA (VENTOLIN HFA) 90 mcg/actuation inhaler Inhale 2 Puffs as instructed every 4 hours asneeded for wheezing/shortness of breath. thiothixene (NAVANE) 1 mg capsule Take 2 capsules by mouth twice daily. NIFEdipine XL (ADALAT CC) 30 mg 24 hr tablet take 1 tablet by mouth once daily metFORMIN (GLUCOPHAGE) 500 mg tablet take 1 tablet by mouth once daily with dinner lisinopril (ZESTRIL, PRINIVIL) 5 mg tablet take 1 tablet by mouth once daily blood sugar diagnostic (BLOOD GLUCOSE TEST) test strip Test blood sugar(s) 1 times daily. Dx: Type 2 DM - Controlled E11.9 Insulin: No Lancets lancets Test blood sugar(s) 1 times daily. Dx: Type 2 DM - Controlled E11.9 Insulin: No polyethylene glycol 3350 (MIRALAX, GLYCOLAX) 17 gram/dose powder Use as directed for Miralax / Gatorade Bowel Prep Kit Gatorade Sports Drink Use as directed for Miralax / Gatorade Bowel Prep Kit Bisacodyl (DULCOLAX) 5 mg tab Use as directed for Miralax / Gatorade Bowel Prep Kit busPIRone (BUSPAR) 5 mg tablet Take 1 tablet by mouth three times daily as needed. Melatonin 5 mg cap Take 1 capsule by mouth once daily. Aspirin 81 mg tab Take 1 tablet by mouth once daily. Take with food. FAMILY HISTORY Problem Relation Age of Onset Heart Mother Diabetes Father other (Parkinson's disease [Other]) Brother Social History Tobacco Use Smoking status: Every Day Packs/day: 1.00 Years: 25.00 Additional pack years: 0.00 Total pack years: 25.00 Types: Cigarettes Smokeless tobacco: Never Vaping Use Vaping Use: Never used Substance Use Topics Alcohol use: Not Currently Comment: quit 04/18 Drug use: No Objective Physical Exam Vitals and nursing note reviewed. Constitutional: Appearance: Normal appearance. Cardiovascular: Rate and Rhythm: Normal rate. Pulmonary: Effort: Pulmonary effort is normal. Musculoskeletal: General: Swelling and tenderness present. No signs of injury. Right lower leg: Edema present. Skin: General: Skin is warm and dry. Findings: No erythema or rash. Neurological: Mental Status: She is alert. ASSESSMENT/PLAN: 1. Calf swelling - ICD9: 729.81, ICD10: M79.89 - patient has already had negative US of this extremity on 10/09 - d/c use of compression sleeve. - rest leg, elevate, ice application 2-3 times daily. - follow up with ortho tomorrow. - Follow-up with your PCP in 3-5 days if symptoms have not improved or sooner if symptoms worsen - Discussed red flags and need for immediate medical evaluation if any occur. - Discussed supportive care treatment with rest and analgesia. - Discussed expected course of illness Rianna Wilkerson APRN.[employer] documented in this encounterAkron [facility]09-01-2023 Telephone encounter Note * Telephone Encounter - Catie Kwok - 10/11/2022 4:29 PM EDT Patient has been identified by name and date of : Yes Last office visit in this department: 09/16/2022 RX INSTRUCTIONS: Patient aware RX will be sent to pharmacy. No need to notify patient. Patient phones requesting refills as follows: Requested Prescriptions Pending Prescriptions Disp Refills zolpidem (AMBIEN) 10 mg 30 tablet 0 Sig: Take 1 tablet by mouth at bedtime as needed (insomnia) for up to 90 days. Please review and advise. Catie Kwok [facility]09-01-[facility] Instructions* Patient Instructions* Helga Lucas APRN.CNP - 10/11/2022 9:22 AM EDT Compression with joseph bandage or knee sleeve Elevation, ice Follow up Friday with Dr. Hall documented in this encounterAkron Children'[facility] Hospital09-01-2023 History of Present illness Narrative* Helga Lucas APRN.CNP - 10/11/2022 9:17 AM EDT Subjective The history is provided by the patient. No technician biological health was used. HPI David Aldrich is a 61 year old female who presents today for CC of left knee pain. She was seen on Friday in ER for the same problem, determined she has a Frances's cyst, with no DVT per us. She states she had pain and swelling when working last night, needs to see ortho, and work note today. States she needs follow up with ortho scheduled. BP 154/68 Pulse 91 Temp 37.6 C (99.6 F) Resp 20 Wt 65 kg (143 lb 3.2 oz) LMP 11/13/2009 SpO2 99% BMI 27.06 kg/m Social History Tobacco Use Smoking status: Every Day Packs/day: 1.00 Years: 25.00 Additional pack years: 0.00 Total pack years: 25.00 Types: Cigarettes Smokeless tobacco: Never Vaping Use Vaping Use: Never used Substance Use Topics Alcohol use: Not Currently Comment: quit 04/18 Drug use: No PAST MEDICAL HISTORY Diagnosis Date Arrhythmia Bradycardia Diabetes mellitus with peripheral artery disease (HCC) 03/06/2015 H/O percutaneous left heart catheterization May, negative--[facility] History of rectal polypectomy 09/23/201712/2014: hyperplastic polyp Hyperlipidemia LDL goal < 100 01/25/2013 Hypertension Major depressive disorder, recurrent episode, unspecified Non-alcoholic fatty liver disease 10/13/2014 Other and unspecified hyperlipidemia Other chronic nonalcoholic liver disease 01/16 fatty liver disease Peripheral arterial disease (HCC) 03/06/2015 Recurrent major depressive disorder, in full remission (HCC) 03/10/2017 Snoring Type 2 diabetes mellitus with stage 3 chronic kidney disease, without long-term current use of insulin (HCC) 05/11/2016 I have confirmed and edited as necessary, the [facility] Review of Systems Constitutional: Negative for chills and fever. Musculoskeletal: Positive for joint pain (right knee). Negative for myalgias. Skin: Negative for itching and rash. All other systems reviewed and are negative. Objective Physical Exam Vitals and nursing note reviewed. Pulmonary: Effort: Pulmonary effort is normal. Musculoskeletal: Right knee: Swelling present. Decreased range of motion. Left knee: Normal. Skin: General: Skin is warm and dry. Neurological: Mental Status: She is alert and oriented to person, place, and time. Psychiatric: Mood and Affect: Affect normal. ASSESSMENT/PLAN: 1. Knee swelling - ICD9: 719.06, ICD10: M25.469 Compression, elevation, rests Ibuprofen as ordered Follow up next week with ortho - CONSULT TO ORTHOPAEDICS Diagnosis and treatment plan were discussed and questions were answered to the patient's satisfaction. Pt acknowledged understanding of concepts and follow up plan. Specific signs and symptoms that would indicate the need for higher level of care were discussed indetail warranting prompt ER evaluation. Helga Lucas APRN.[employer] documented in this encounterAkron Children'[facility] Hospital08-31-2023 Miscellaneous Notes* Telephone Encounter - Vy Saunders - 10/10/2022 11:06 AM EDT Patient has been identified by name and date of : Yes Last office visit in this department: 09/16/2022 Labs-09/16/22 NOV-10/17/22 RX INSTRUCTIONS: Patient aware RX will be sent to pharmacy. No need to notify patient. Patient phones requesting refills as follows: Requested Prescriptions Pending Prescriptions Disp Refills cyclobenzaprine (FLEXERIL) 5 mg tablet 90 tablet 1 Sig: Take 1 tablet by mouth three times daily as needed. Please review and advise. Vy Saunders documented in this encounterAkron Children'[facility] Hospital08-30-2023 History of Present illness Narrative* Domenic Christine APRN.[employer] - 10/09/2022 5:49 PM EDT Images from the original note were not included. Subjective HPI HPI David Aldrich is a 61 year old female who presents today for CC of right posterior knee/swelling/pain. This started 4 days ago, getting owrse. Has tried nothing for relief. Symptoms are worsened by rom of knee. Denies injury. Strong hx of dvt, patient is a smoker. .Patient presents with: Knee Pain: right knee pain and swelling, knot on back of knee x 4 days PAST MEDICAL HISTORY Diagnosis Date Arrhythmia Bradycardia Diabetes mellitus with peripheral artery disease (HCC) 03/06/2015 H/O percutaneous left heart catheterization May, negative--[facility] History of rectal polypectomy 09/23/201712/2014: hyperplastic polyp Hyperlipidemia LDL goal < 100 01/25/2013 Hypertension Major depressive disorder, recurrent episode, unspecified Non-alcoholic fatty liver disease 10/13/2014 Other and unspecified hyperlipidemia Other chronic nonalcoholic liver disease 01/16 fatty liver disease Peripheral arterial disease (HCC) 03/06/2015 Recurrent major depressive disorder, in full remission (HCC) 03/10/2017 Snoring Type 2 diabetes mellitus with stage 3 chronic kidney disease, without long-term current use of insulin (HCC) 05/11/2016 PAST SURGICAL HISTORY Procedure Laterality Date APPENDECTOMY 1971 CAROTID ENDARTERECTOMY 06/16/2012 Right carotid COLONOSCOPY 12/12/14 Repeat 2018 ALLERGIES Zocor [Simvastatin] MEDICATIONS imipramine HCl (TOFRANIL) 50 mg tablet Take 3 tablets by mouth daily at bedtime. zolpidem (AMBIEN) 10 mg Take 1 tablet by mouth at bedtime as needed (insomnia) for up to 90 days. cyclobenzaprine (FLEXERIL) 5 mg tablet Take 1 tablet by mouth three times daily as needed. atorvastatin (LIPITOR) 20 mg tablet Take 1 tablet by mouth once daily. buPROPion SR (WELLBUTRIN SR) 150 mg 12 hr tablet One pill by mouth once daily X 3 days, then increase to twice daily. Take second dose before 6PM. Try to stop smoking on day 5-7. guaiFENesin (MUCINEX) 600 mg 12 hr tablet Take 2 tablets by mouth twice daily. zolpidem (AMBIEN) 10 mg Take 1 tablet by mouth daily at bedtime for 30 days. Do not start before March 16, 2022. ondansetron orally disintegrating (ZOFRAN ODT) 4 mg disintegrating tablet Take 1 tablet by mouth every 8 hours as needed for nausea/vomiting. nicotine (NICODERM) 21 mg/24 hr Apply 1 Patch as directed every 24 hours. Apply a patch daily for 6weeks, then start 14mg patches nicotine (NICODERM) 14 mg/24 hr Apply 1 Patch as directed every 24 hours. No smoking with patch. Apply a patch daily for 2 weeks, then start 7mg patches nicotine (NICODERM) 7 mg/24 hr Apply 1 Patch as directed every 24 hours. Apply a patch daily for 2 weeks omeprazole (PRILOSEC) 20 mg capsule Take 1 capsule by mouth daily before breakfast. 1/2 hr before meal. albuterol HFA (VENTOLIN HFA) 90 mcg/actuation inhaler Inhale 2 Puffs as instructed every 4 hours asneeded for wheezing/shortness of breath. thiothixene (NAVANE) 1 mg capsule Take 2 capsules by mouth twice daily. NIFEdipine XL (ADALAT CC) 30 mg 24 hr tablet take 1 tablet by mouth once daily metFORMIN (GLUCOPHAGE) 500 mg tablet take 1 tablet by mouth once daily with dinner lisinopril (ZESTRIL, PRINIVIL) 5 mg tablet take 1 tablet by mouth once daily blood sugar diagnostic (BLOOD GLUCOSE TEST) test strip Test blood sugar(s) 1 times daily. Dx: Type 2 DM - Controlled E11.9 Insulin: No Lancets lancets Test blood sugar(s) 1 times daily. Dx: Type 2 DM - Controlled E11.9 Insulin: No polyethylene glycol 3350 (MIRALAX, GLYCOLAX) 17 gram/dose powder Use as directed for Miralax / Gatorade Bowel Prep Kit Gatorade Sports Drink Use as directed for Miralax / Gatorade Bowel Prep Kit Bisacodyl (DULCOLAX) 5 mg tab Use as directed for Miralax / Gatorade Bowel Prep Kit busPIRone (BUSPAR) 5 mg tablet Take 1 tablet by mouth three times daily as needed. Melatonin 5 mg cap Take 1 capsule by mouth once daily. Aspirin 81 mg tab Take 1 tablet by mouth once daily. Take with food. FAMILY HISTORY Problem Relation Age of Onset Heart Mother Diabetes Father other (Parkinson's disease [Other]) Brother Social History Tobacco Use Smoking status: Every Day Packs/day: 1.00 Years: 25.00 Additional pack years: 0.00 Total pack years: 25.00 Types: Cigarettes Smokeless tobacco: Never Vaping Use Vaping Use: Never used Substance Use Topics Alcohol use: Not Currently Comment: quit 04/18 Drug use: No Review of Systems Respiratory: Negative for shortness of breath. Cardiovascular: Negative for chest pain. Objective Blood pressure 126/72, pulse 88, temperature 36.9 C (98.5 F), resp. rate 16, weight 64.4 kg (142 lb), last menstrual period 11/13/2009, SpO2 97 %. Physical Exam Constitutional: General: She is not in acute distress. Appearance: She is not toxic-appearing or diaphoretic. HENT: Head: Normocephalic and atraumatic. Cardiovascular: Pulses: Dorsalis pedis pulses are 1+ on the right side. Posterior tibial pulses are 1+ on the right side. Pulmonary: Effort: Pulmonary effort is normal. No accessory muscle usage or respiratory distress. Musculoskeletal: Legs: Neurological: Mental Status: She is alert and oriented to person, place, and time. ASSESSMENT/PLAN: 1. Posterior knee pain, right - ICD9: 719.46, ICD10: M25.561 Concerns for dvt, no ultrasound capability until Friday in [place] Patient will go to ER. Domenic Christine APRN.CANDACE documented in this encounterAk[facility]28-[facility]23 Miscellaneous Notes* Telephone Encounter - Lulu Swanson APRN.CNP - 10/07/2022 1:26 PM EDT Noted. Lulu Swanson APRN.CNP * Telephone Encounter - Mi Espinoza RN - 10/07/2022 9:51 AM EDT Patient calls for severe right knee pain and swelling. Nurse triage completed. Protocol recommends see provider within 4 ours or PCP triage. No available appointments with Lulu Swanson. Offered appointment with available providers. Patient declined and will go to within 4 hours. Care advice reviewed. Patient verbalizes understanding. Reason for Disposition [1] SEVERE pain (e.g., excruciating, unable to walk) AND [2] not improved after 2 hours of pain medicine Answer Assessment - Initial Assessment Questions 1. LOCATION and RADIATION: Right knee pain and swelling. 2. QUALITY: Sharp and shoots down the leg. 3. SEVERITY: - SEVERE (8-10): excruciating pain, unable to do any normal activities, unable to walk 4. ONSET: Yesterday. Constant 5. RECURRENT: No 6. SETTING: No recent work, exercise, or activity involving right knee. 7. AGGRAVATING FACTORS: Walking or climbing stairs. Not able to run. 8. ASSOCIATED SYMPTOMS:Swelling of the right knee but no redness or warmth. 9. OTHER SYMPTOMS: No chest pain, difficulty breathing, fever, or calf pain. Protocols used: Knee [id number] documented in this encounterAkron [facility]08-07-2023 Instructions* Patient Instructions* Lulu Swanson APRN.CNP - 09/16/2022 1:12 PM EDT Start the prednisone. Get the labwork. Ice to the area. You can also use topicals to the area (marko chase, icy hot, etc). Let us know if no better/worsening. documented in this encounterAkron [facility]08-07-2023 History of Present illness Narrative* Lulu Swanson APRN.CNP - 09/16/2022 12:59 PM EDT This is a 61 year old female who presents today with: Patient presents with: Follow Up: Urg Care follow up- back pain HISTORY OF PRESENT ILLNESS: David Aldrich is a 61 year old female. Patient presents with: Follow Up: Urg Care follow up- back pain Pt presents today with complaint of right back pain. Went to urgent care yesterday. Refers when she coughs, it hurts all around her side. Refers that she initially noticed night when laying on the couch. No known injury. Given prednisone -- but hasn't started it yet. She is also on the flexeril. She is taking advil for symptoms. PAST MEDICAL HISTORY: PAST MEDICAL HISTORY Diagnosis Date Arrhythmia Bradycardia Diabetes mellitus with peripheral artery disease (HCC) 03/06/2015 H/O percutaneous left heart catheterization May, negative--[facility] History of rectal polypectomy 09/23/201712/2014: hyperplastic polyp Hyperlipidemia LDL goal < 100 01/25/2013 Hypertension Major depressive disorder, recurrent episode, unspecified Non-alcoholic fatty liver disease 10/13/2014 Other and unspecified hyperlipidemia Other chronic nonalcoholic liver disease 01/16 fatty liver disease Peripheral arterial disease (HCC) 03/06/2015 Recurrent major depressive disorder, in full remission (HCC) 03/10/2017 Snoring Type 2 diabetes mellitus with stage 3 chronic kidney disease, without long-term current use of insulin (HCC) 05/11/2016 PAST SURGICAL HISTORY Procedure Laterality Date APPENDECTOMY 1971 CAROTID ENDARTERECTOMY 06/16/2012 Right carotid COLONOSCOPY 12/12/14 Repeat 2018 ALLERGIES Zocor [Simvastatin] MEDICATIONS Current Outpatient Medications Medication Sig predniSONE (DELTASONE) 20 mg tablet Take 2 tablets by mouth once daily for 5 days. zolpidem (AMBIEN) 10 mg Take 1 tablet by mouth at bedtime as needed (insomnia) for up to 90 days. cyclobenzaprine (FLEXERIL) 5 mg tablet Take 1 tablet by mouth three times daily as needed. atorvastatin (LIPITOR) 20 mg tablet Take 1 tablet by mouth once daily. imipramine HCl (TOFRANIL) 50 mg tablet Take 3 tablets by mouth daily at bedtime. buPROPion SR (WELLBUTRIN SR) 150 mg 12 hr tablet One pill by mouth once daily X 3 days, then increase to twice daily. Take second dose before 6PM. Try to stop smoking on day 5-7. guaiFENesin (MUCINEX) 600 mg 12 hr tablet Take 2 tablets by mouth twice daily. zolpidem (AMBIEN) 10 mg Take 1 tablet by mouth daily at bedtime for 30 days. Do not start before March 16, 2022. ondansetron orally disintegrating (ZOFRAN ODT) 4 mg disintegrating tablet Take 1 tablet by mouth every 8 hours as needed for nausea/vomiting. nicotine (NICODERM) 21 mg/24 hr Apply 1 Patch as directed every 24 hours. Apply a patch daily for 6weeks, then start 14mg patches nicotine (NICODERM) 14 mg/24 hr Apply 1 Patch as directed every 24 hours. No smoking with patch. Apply a patch daily for 2 weeks, then start 7mg patches nicotine (NICODERM) 7 mg/24 hr Apply 1 Patch as directed every 24 hours. Apply a patch daily for 2 weeks omeprazole (PRILOSEC) 20 mg capsule Take 1 capsule by mouth daily before breakfast. 1/2 hr before meal. albuterol HFA (VENTOLIN HFA) 90 mcg/actuation inhaler Inhale 2 Puffs as instructed every 4 hours asneeded for wheezing/shortness of breath. thiothixene (NAVANE) 1 mg capsule Take 2 capsules by mouth twice daily. NIFEdipine XL (ADALAT CC) 30 mg 24 hr tablet take 1 tablet by mouth once daily metFORMIN (GLUCOPHAGE) 500 mg tablet take 1 tablet by mouth once daily with dinner lisinopril (ZESTRIL, PRINIVIL) 5 mg tablet take 1 tablet by mouth once daily blood sugar diagnostic (BLOOD GLUCOSE TEST) test strip Test blood sugar(s) 1 times daily. Dx: Type 2 DM - Controlled E11.9 Insulin: No Lancets lancets Test blood sugar(s) 1 times daily. Dx: Type 2 DM - Controlled E11.9 Insulin: No polyethylene glycol 3350 (MIRALAX, GLYCOLAX) 17 gram/dose powder Use as directed for Miralax / Gatorade Bowel Prep Kit Gatorade Sports Drink Use as directed for Miralax / Gatorade Bowel Prep Kit Bisacodyl (DULCOLAX) 5 mg tab Use as directed for Miralax / Gatorade Bowel Prep Kit busPIRone (BUSPAR) 5 mg tablet Take 1 tablet by mouth three times daily as needed. Melatonin 5 mg cap Take 1 capsule by mouth once daily. Aspirin 81 mg tab Take 1 tablet by mouth once daily. Take with food. No current facility-administered medications for this visit. FAMILY HISTORY Problem Relation Age of Onset Heart Mother Diabetes Father other (Parkinson's disease [Other]) Brother Social History Tobacco Use Smoking status: Every Day Packs/day: 1.00 Years: 25.00 Total pack years: 25.00 Types: Cigarettes Smokeless tobacco: Never Vaping Use Vaping Use: Never used Substance Use Topics Alcohol use: Not Currently Comment: quit 04/18 Drug use: No EXAM: BP 138/72 Pulse 80 Resp 16 Wt 65.3 kg (144 lb) LMP 11/13/2009 SpO2 95% BMI 27.21 kg/m PHYSICAL EXAM: General Appearance: Well appearing, alert, in no acute distress, well-hydrated, well nourished.. Skin: Skin color, texture, turgor normal, no suspicious rashes or lesions. Head: Normocephalic, no masses, lesions, tenderness or abnormalities. Eyes: Anicteric sclera. Pupils are equally round and reactive to light. Extraocular movements are intact. . Back:no pain to palpation of vertebrae, good flexion and extension, good range of motion. + tenderness of the right para-thoracic muscles. Lungs: Lungs clear to auscultation. No wheezing, rhonchi, rales.. Heart: RRR without murmur, gallop, or rubs. No ectopy. Neurologic: Gait normal. ASSESSMENT/PLAN: 1. Acute right-sided thoracic back pain - ICD9: 724.1, ICD10: M54.6 (primary diagnosis) Start the prednisone given by urgent care. Ice to the area. Massage. Topicals. Work note for today. 2. Recurrent major depressive disorder, in full remission (HCC) - ICD9: 296.36, ICD10: F33.42 Refill: - IMIPRAMINE 50 MG TABLET Discussed treatment plan and patient voices understanding. Patient's questions answered appropriately. Medications and potential side effects were discussed and patient voices understanding. Return to the office as scheduled or as needed for worsening/no improvement. Lulu Swanson APRN.[employer] documented in this encounterAkron [facility]08-01-2023 Miscellaneous Notes* Telephone Encounter - Jose E Morejon Ma - 09/10/2022 3:34 PM EDT GIN: 05/22/2022 Last refill: 08/16/2022 QTY: 30 Refills: 0 * Telephone Encounter - Cheryl Desir - 09/10/2022 2:58 PM EDT Patient has been identified by name and date of : Yes Requested Prescriptions Pending Prescriptions Disp Refills zolpidem (AMBIEN) 10 mg 30 tablet 0 Sig: Take 1 tablet by mouth at bedtime as needed (insomnia) for up to 90 days. RX INSTRUCTIONS: Patient aware RX will be sent to pharmacy. No need to notify patient. Cheryl Mitchell documented in this encounterAkron [facility]07-11-2023 Miscellaneous Notes* Telephone Encounter - Brianna Busch LPN - 08/20/2022 12:27 PM EDT Pt calls to report she needs a new Freestyle Lite Glucose Meter. Pt reports she has test strips butneeds a new meter. Patient has been identified by name and date of : Yes Requested Prescriptions Pending Prescriptions Disp Refills Blood-Glucose Meter (FREESTYLE LITE METER) monitoring kit 1 Each 0 Sig: Freestyle LITE Meter Kit - Dx: Type 2 DM - Controlled E11.9 Insulin: No Use once a day as directed by provider RX INSTRUCTIONS: Patient aware RX will be sent to pharmacy. No need to notify patient. Brianna Busch LPN documented in this encounterAkron [facility]07-07-2023 Miscellaneous Notes* Telephone Encounter - Lavon Terry LPN - 08/16/2022 10:14 AM EDT MAT[facility] 08/23/22 * Telephone Encounter - Elizabeth Nguyễn - 08/16/2022 9:47 AM EDT Patient has been identified by name and date of : Yes Last office visit in this department: 05/22/2022 RX INSTRUCTIONS: Patient aware RX will be sent to pharmacy. No need to notify patient. Patient phones requesting refills as follows: Requested Prescriptions Pending Prescriptions Disp Refills zolpidem (AMBIEN) 10 mg 30 tablet 2 Sig: Take 1 tablet by mouth at bedtime as needed (insomnia) for up to 90 days. cyclobenzaprine (FLEXERIL) 5 mg tablet 90 tablet 1 Sig: Take 1 tablet by mouth three times daily as needed. Please review and advise. Elizabeth Nguyễn documented in this encounterAkron [facility]07-06-2023 Miscellaneous Notes* Telephone Encounter - Lavon Terry LPN - 08/15/2022 9:40 AM EDT Pt is due for follow up appt. Please assist pt with scheduling routine follow up appt and let her know labs are in. Lavon Terry LPN * Telephone Encounter - Lulu Swanson APRN.CNP - 08/15/2022 9:34 AM EDT Orders are in * Telephone Encounter - Lavon Terry LPN - 08/14/2022 12:41 PM EDT FYI- pt no showed appt on 08/05/22. Lavon Terry LPN * Telephone Encounter - Elizabeth Nguyễn - 08/14/2022 12:30 PM EDT Pt calling to ask PCP to place new lab orders for her. Please advise pt documented in this encounterAkron [facility]05-16-2023 Miscellaneous Notes* Telephone Encounter - Vivien Dsouza Ma - 06/25/2022 12:18 PM EDT Previous Office Visit Date: 05/22/2022 Future Office Visit Date: 07/09/2022 Date of last prescription: 04/29/22 Please advise. Vivien Dsouza Ma * Telephone Encounter - Carina Márquez - 06/25/2022 12:07 PM EDT Patient phones requesting refills as follows: Requested Prescriptions Pending Prescriptions Disp Refills cyclobenzaprine (FLEXERIL) 5 mg tablet 90 tablet 1 Sig: Take 1 tablet by mouth three times daily as needed. Please review and advise. Carina Márquez documented in this encounterAkron [facility]05-15-2023 Miscellaneous Notes* Telephone Encounter - Paulina Mitchell - 06/24/2022 9:41 AM EDT Patient has been identified by name and date of : Yes Requested Prescriptions Pending Prescriptions Disp Refills zolpidem (AMBIEN) 10 mg 30 tablet 2 Sig: Take 1 tablet by mouth at bedtime as needed (insomnia) for up to 90 days. RX INSTRUCTIONS: Patient aware RX will be sent to pharmacy. No need to notify patient. Paulina Mitchell documented in this encounterAkron Children'[facility]04-12-2023 Instructions* Patient Instructions* Lulu Swanson APRN.[employer] - 05/22/2022 12:05 PM EDT Schedule w/ podiatry. Start the buproprion -- 1 pill by mouth daily X 3 days; then increase to twice daily. Try to take the second dose prior to 6 PM. Stop smoking on day 5-7. documented in this encounterAkron [facility]04-12-2023 History of Present illness Narrative* Lulu Swanson APRN.CNP - 05/22/2022 11:52 AM EDT This is a 61 year old female who presents today with: Patient presents with: Acute Visit: R 3rd toe swollen/hard/stinging/some redness HISTORY OF PRESENT ILLNESS: David Aldrich is a 61 year old female. Patient presents with: Acute Visit: R 3rd toe swollen/hard/stinging/some redness Pt presents today with complaint of some discomfort in the right 3rd toe. Refers that it started last week. Refers that she gets a scale/scab type that peels off. Concerned because there is a red area there and it does cause some stinging. She is diabetic, so worried. She also has a hx of raynauds. She is a smoker. She is smoking 1-1/2 packs/day. She would like to try to quit this. She previously did see Dr. Benson (podiatry) and was encouraged cessation. Has a friend that recently started bupropion. She is interested in trying this. PAST MEDICAL HISTORY: PAST MEDICAL HISTORY Diagnosis Date Arrhythmia Bradycardia Diabetes mellitus with peripheral artery disease (HCC) 03/06/2015 H/O percutaneous left heart catheterization May, negative--[facility] History of rectal polypectomy 09/23/201712/2014: hyperplastic polyp Hyperlipidemia LDL goal < 100 01/25/2013 Hypertension Major depressive disorder, recurrent episode, unspecified Non-alcoholic fatty liver disease 10/13/2014 Other and unspecified hyperlipidemia Other chronic nonalcoholic liver disease 01/16 fatty liver disease Peripheral arterial disease (HCC) 03/06/2015 Recurrent major depressive disorder, in full remission (HCC) 03/10/2017 Snoring Type 2 diabetes mellitus with stage 3 chronic kidney disease, without long-term current use of insulin (HCC) 05/11/2016 PAST SURGICAL HISTORY Procedure Laterality Date APPENDECTOMY 1971 CAROTID ENDARTERECTOMY 06/16/2012 Right carotid COLONOSCOPY 12/12/14 Repeat 2018 ALLERGIES Zocor [Simvastatin] MEDICATIONS Current Outpatient Medications Medication Sig zolpidem (AMBIEN) 10 mg Take 1 tablet by mouth at bedtime as needed (insomnia) for up to 90 days. cyclobenzaprine (FLEXERIL) 5 mg tablet take 1 tablet by mouth three times a day if needed imipramine HCl (TOFRANIL) 50 mg tablet take 3 tablets by mouth at bedtime guaiFENesin (MUCINEX) 600 mg 12 hr tablet Take 2 tablets by mouth twice daily. ondansetron orally disintegrating (ZOFRAN ODT) 4 mg disintegrating tablet Take 1 tablet by mouth every 8 hours as needed for nausea/vomiting. omeprazole (PRILOSEC) 20 mg capsule Take 1 capsule by mouth daily before breakfast. 1/2 hr before meal. albuterol HFA (VENTOLIN HFA) 90 mcg/actuation inhaler Inhale 2 Puffs as instructed every 4 hours asneeded for wheezing/shortness of breath. thiothixene (NAVANE) 1 mg capsule Take 2 capsules by mouth twice daily. NIFEdipine XL (ADALAT CC) 30 mg 24 hr tablet take 1 tablet by mouth once daily metFORMIN (GLUCOPHAGE) 500 mg tablet take 1 tablet by mouth once daily with dinner lisinopril (ZESTRIL, PRINIVIL) 5 mg tablet take 1 tablet by mouth once daily blood sugar diagnostic (BLOOD GLUCOSE TEST) test strip Test blood sugar(s) 1 times daily. Dx: Type 2 DM - Controlled E11.9 Insulin: No Lancets lancets Test blood sugar(s) 1 times daily. Dx: Type 2 DM - Controlled E11.9 Insulin: No atorvastatin (LIPITOR) 20 mg tablet take 1 tablet by mouth once daily busPIRone (BUSPAR) 5 mg tablet Take 1 tablet by mouth three times daily as needed. Melatonin 5 mg cap Take 1 capsule by mouth once daily. Aspirin 81 mg tab Take 1 tablet by mouth once daily. Take with food. zolpidem (AMBIEN) 10 mg Take 1 tablet by mouth daily at bedtime for 30 days. Do not start before March 16, 2022. nicotine (NICODERM) 21 mg/24 hr Apply 1 Patch as directed every 24 hours. Apply a patch daily for 6weeks, then start 14mg patches nicotine (NICODERM) 14 mg/24 hr Apply 1 Patch as directed every 24 hours. No smoking with patch. Apply a patch daily for 2 weeks, then start 7mg patches nicotine (NICODERM) 7 mg/24 hr Apply 1 Patch as directed every 24 hours. Apply a patch daily for 2 weeks polyethylene glycol 3350 (MIRALAX, GLYCOLAX) 17 gram/dose powder Use as directed for Miralax / Gatorade Bowel Prep Kit Gatorade Sports Drink Use as directed for Miralax / Gatorade Bowel Prep Kit Bisacodyl (DULCOLAX) 5 mg tab Use as directed for Miralax / Gatorade Bowel Prep Kit No current facility-administered medications for this visit. FAMILY HISTORY Problem Relation Age of Onset Heart Mother Diabetes Father other (Parkinson's disease [Other]) Brother Social History Tobacco Use Smoking status: Every Day Packs/day: 1.00 Years: 25.00 Pack years: 25.00 Types: Cigarettes Smokeless tobacco: Never Vaping Use Vaping Use: Never used Substance Use Topics Alcohol use: Not Currently Comment: quit 04/18 Drug use: No EXAM: BP 124/72 Pulse 75 Resp 18 Wt 67.6 kg (149 lb) LMP 11/13/2009 SpO2 95% BMI 28.15 kg/m PHYSICAL EXAM: General Appearance: Well appearing, alert, in no acute distress, well-hydrated, well nourished.. Skin: Skin color, texture, turgor normal, no suspicious rashes or lesions. Plantar aspect of the right 3rd toe with red area. Does not appear infected. Does not appear open. Good cap refill of toes. +2 dp/pt pulses. Head: Normocephalic, no masses, lesions, tenderness or abnormalities. Eyes: Anicteric sclera. Pupils are equally round and reactive to light. Extraocular movements are intact. . Extremities: No deformities, edema, skin discoloration, clubbing or cyanosis. Good capillary refill. . Neurologic: Gait normal. Reflexes normal and symmetric. Sensation grossly intact. . ASSESSMENT/PLAN: 1. Toe pain, right - ICD9: 729.5, ICD10: M79.674 (primary diagnosis) Suspect that was callous/corn that peeled off. Will refer back to Dr. Benson for further evaluation. - CONSULT TO PODIATRY 2. Tobacco abuse - ICD9: 305.1, ICD10: Z72.0 - Cessation encouraged. - Physiologic and physical aspects of tobacco addiction as well as strategies for quitting were discussed. - Counseling was given focusing on the harmful effects of this addiction especially given the patient's medical condition(s) which will be worsened because of the chemicals in tobacco. - Prescription for bupropion (Wellbutrin) given - BUPROPION HCL SR 150 MG TABLET,12 HR SUSTAINED-RELEASE Discussed potential side effects of ordered medications. Patient voices understanding. Discussed treatment plan and patient voices understanding. Patient's questions answered appropriately. Medications and potential side effects were discussed and patient voices understanding. Return to the office as scheduled or as needed for worsening/no improvement. Lulu Swanson APRN.CNP This note was partially generated using [employer] voice recognition system. Note was reviewed for accuracy. There may be minor misspellings or grammar miscues with [employer] voice recognition. documented in this encounterAkron [facility]03-20-2023 Miscellaneous Notes* Telephone Encounter - Lavon Terry LPN - 04/29/2022 9:45 AM EDT Patient phones requesting refills as follows: Requested Prescriptions Pending Prescriptions Disp Refills cyclobenzaprine (FLEXERIL) 5 mg tablet [Pharmacy Med Name: CYCLOBENZAPRINE 5 MG TABLET] 90 tablet 1 Sig: take 1 tablet by mouth three times a day if needed Please review and advise. Lavon Terry LPN documented in this encounterAkron Children'[facility] Hospital02-28-2023 Instructions* Patient Instructions* Lulu Swanson APRN.CNP - 04/09/2022 9:55 AM EST Return for fasting labs. Recheck in 3 months. documented in this encounterAkron Children'[facility] Hospital02-28-2023 History of Present illness Narrative* Lulu Swanson APRN.CNP - 04/09/2022 9:35 AM EST This is a 61 year old female who presents today with: No chief complaint on file. HISTORY OF PRESENT ILLNESS: David Aldrich is a 61 year old female. No chief complaint on file. Pt presents today to follow-up. She is due for a refill of ambien. Refers that she has been on the ambien for a few years and has been helpful. Without the medication, she cannot sleep and is up all night. No hx of misuse. PAST MEDICAL HISTORY: PAST MEDICAL HISTORY Diagnosis Date Arrhythmia Bradycardia Diabetes mellitus with peripheral artery disease (HCC) 03/06/2015 H/O percutaneous left heart catheterization May, negative--[facility] History of rectal polypectomy 09/23/201712/2014: hyperplastic polyp Hyperlipidemia LDL goal < 100 01/25/2013 Hypertension Major depressive disorder, recurrent episode, unspecified Non-alcoholic fatty liver disease 10/13/2014 Other and unspecified hyperlipidemia Other chronic nonalcoholic liver disease 01/16 fatty liver disease Peripheral arterial disease (HCC) 03/06/2015 Recurrent major depressive disorder, in full remission (HCC) 03/10/2017 Snoring Type 2 diabetes mellitus with stage 3 chronic kidney disease, without long-term current use of insulin (HCC) 05/11/2016 PAST SURGICAL HISTORY Procedure Laterality Date APPENDECTOMY 1971 CAROTID ENDARTERECTOMY 06/16/2012 Right carotid COLONOSCOPY 12/12/14 Repeat 2018 ALLERGIES Zocor [Simvastatin] MEDICATIONS Current Outpatient Medications Medication Sig imipramine HCl (TOFRANIL) 50 mg tablet take 3 tablets by mouth at bedtime guaiFENesin (MUCINEX) 600 mg 12 hr tablet Take 2 tablets by mouth twice daily. zolpidem (AMBIEN) 10 mg Take 1 tablet by mouth daily at bedtime for 30 days. Do not start before March 16, 2022. cyclobenzaprine (FLEXERIL) 5 mg tablet Take 1 tablet by mouth three times daily as needed. ondansetron orally disintegrating (ZOFRAN ODT) 4 mg disintegrating tablet Take 1 tablet by mouth every 8 hours as needed for nausea/vomiting. omeprazole (PRILOSEC) 20 mg capsule Take 1 capsule by mouth daily before breakfast. 1/2 hr before meal. albuterol HFA (VENTOLIN HFA) 90 mcg/actuation inhaler Inhale 2 Puffs as instructed every 4 hours asneeded for wheezing/shortness of breath. thiothixene (NAVANE) 1 mg capsule Take 2 capsules by mouth twice daily. NIFEdipine XL (ADALAT CC) 30 mg 24 hr tablet take 1 tablet by mouth once daily metFORMIN (GLUCOPHAGE) 500 mg tablet take 1 tablet by mouth once daily with dinner lisinopril (ZESTRIL, PRINIVIL) 5 mg tablet take 1 tablet by mouth once daily blood sugar diagnostic (BLOOD GLUCOSE TEST) test strip Test blood sugar(s) 1 times daily. Dx: Type 2 DM - Controlled E11.9 Insulin: No Lancets lancets Test blood sugar(s) 1 times daily. Dx: Type 2 DM - Controlled E11.9 Insulin: No atorvastatin (LIPITOR) 20 mg tablet take 1 tablet by mouth once daily busPIRone (BUSPAR) 5 mg tablet Take 1 tablet by mouth three times daily as needed. Aspirin 81 mg tab Take 1 tablet by mouth once daily. Take with food. nicotine (NICODERM) 21 mg/24 hr Apply 1 Patch as directed every 24 hours. Apply a patch daily for 6weeks, then start 14mg patches nicotine (NICODERM) 14 mg/24 hr Apply 1 Patch as directed every 24 hours. No smoking with patch. Apply a patch daily for 2 weeks, then start 7mg patches nicotine (NICODERM) 7 mg/24 hr Apply 1 Patch as directed every 24 hours. Apply a patch daily for 2 weeks polyethylene glycol 3350 (MIRALAX, GLYCOLAX) 17 gram/dose powder Use as directed for Miralax / Gatorade Bowel Prep Kit Gatorade Sports Drink Use as directed for Miralax / Gatorade Bowel Prep Kit Bisacodyl (DULCOLAX) 5 mg tab Use as directed for Miralax / Gatorade Bowel Prep Kit Melatonin 5 mg cap Take 1 capsule by mouth once daily. No current facility-administered medications for this visit. FAMILY HISTORY Problem Relation Age of Onset Heart Mother Diabetes Father other (Parkinson's disease [Other]) Brother Social History Tobacco Use Smoking status: Every Day Packs/day: 1.00 Years: 25.00 Pack years: 25.00 Types: Cigarettes Smokeless tobacco: Never Vaping Use Vaping Use: Never used Substance Use Topics Alcohol use: Not Currently Comment: quit 04/18 Drug use: No EXAM: BP 132/84 Pulse 76 Resp 18 Wt 68.9 kg (152 lb) LMP 11/13/2009 SpO2 97% BMI 28.72 kg/m PHYSICAL EXAM: General Appearance: Well appearing, alert, in no acute distress, well-hydrated, well nourished.. Skin: Skin color, texture, turgor normal, no suspicious rashes or lesions. Head: Normocephalic, no masses, lesions, tenderness or abnormalities. Eyes: Anicteric sclera. Extraocular movements are intact. Lungs: Lungs clear to auscultation. No wheezing, rhonchi, rales.. Heart: RRR without murmur, gallop, or rubs. No ectopy. Neurologic: Gait normal. ASSESSMENT/PLAN: 1. Chronic insomnia - ICD9: 780.52, ICD10: F51.04 (primary diagnosis) Stable on medication. Medication allows patient better rest and thereby functional ability when awake. No hx of misuse. Updated med agreement signed. She will be returning to the lab this weekend, will get updated tox screen then. - ZOLPIDEM 10 MG TABLET - TOX SCREEN ROUT UR - PAIN PANEL, UR QUANT 2. Hyperlipidemia with target LDL less than 100 - ICD9: 272.4, ICD10: E78.5 - LIPID PANEL BASIC 3. Type 2 diabetes mellitus with stage 3a chronic kidney disease, without long- term current use of insulin (HCC) - ICD9: 250.40, 585.3, ICD10: E11.22, N18.31 Due for updated labs. - HGB A1C - ALBUMIN/CREAT RATIO RND UR 4. Hypertension, essential - ICD9: 401.9, ICD10: I10 - fair control - Continue current medication(s) - Recommended regular aerobic exercise. - Recommend home blood pressure monitoring, to bring results in on next visit - Goal of BP <130/80 - CBC + DIFF - COMP METABOLIC PANEL 5. Abnormal TSH - ICD9: 790.6, ICD10: R79.89 - TSH BLD 6. Medication monitoring encounter - ICD9: V58.83, ICD10: Z51.81 - TOX SCREEN ROUT UR - PAIN PANEL, UR QUANT 7. Gastroesophageal reflux disease, unspecified whether esophagitis present - ICD9: 530.81, ICD10: K21.9 Stable on PPI. - MAGNESIUM BLD Discussed treatment plan and patient voices understanding. Patient's questions answered appropriately. Medications and potential side effects were discussed and patient voices understanding. Return to the office as scheduled or as needed for worsening/no improvement. Lulu Swanson APRN.CNP This note was partially generated using [employer] voice recognition system. Note was reviewed for accuracy. There may be minor misspellings or grammar miscues with Dragon voice recognition. documented in this encounterAk[facility]23 Miscellaneous Notes* Telephone Encounter - Vivien Dsouza Ma - 03/28/2022 1:51 PM EST Patient was made aware of the results. Patient verbalizes understanding. Vivien Dsouza Ma * Telephone Encounter - Vivien Dsouza Ma - 03/28/2022 1:49 PM EST ----- Message from Lulu Swanson APRN.CNP sent at 03/28/2022 12:27 PM EST ----- Can please let patient know that I received her swab results, which were negative for covid and flu. Please let us know if she has any worsening, or isn't feeling better by next week. Lulu Swanson APRN.CNP documented in this encounterAkron [facility]02-16-2023 Miscellaneous Notes* Telephone Encounter - Gina Elder - 03/28/2022 9:15 AM EST Patient informed and verbalized understanding. No questions at this time. Gina Elder * Telephone Encounter - Gina Elder - 03/28/2022 9:14 AM EST ----- Message from Helen Segovia PA-C sent at 03/28/2022 6:36 AM EST ----- Please let her know tests were negative. ThanksJoni PA-C documented in this encounter[address]15-2023 Instructions* Patient Instructions* Lulu Swanson APRN.[employer] - 03/27/2022 3:19 PM EST Start the mucinex. Let me know if no better/worsening. Home going instructions for Viral Upper Respiratory Infections In General: - Drink lots of fluids - at least one gallon of non-caffeinated liquids per day - Make sure you are eating well - Get plenty of rest - at least 8 hours of sleep per night for adults - ibuprofen 600mg every 8 hours as needed for discomfort - acetaminophen 500mg every 4-6 hours as needed for fever and discomfort. - may alternate ibuprofen and acetaminophen For nasal congestion try: -Vaporizers, Neti Pot, humidifiers, hot showers, and hot fluids help open respiratory and sinus passages. - [place] Nasal [place] may offer relief of nasal and head congestion 2-3 times per day as needed. - Sudafed is a safe and effective decongestant for people who do not have high blood pressure. Do not take Sudafed if you have ever been told that you have high blood pressure or hypertension. General dosing guidelines: Immediate release: 60 mg every 4-6 hours; Extended release: 120 mg every 12 hours or 240 mg every 24 hours; maximum: 240 mg/24 hours. For Sore Throat try: - Salt water gargles every 2-3 hours as needed for discomfort - Chloraceptic spray or throat lozenges (Cepacol) For Cough and chest congestion try one of the following: - Mucinex or Robitussin are expectorants. You may take 200-400 mg every 4 hours to a not to exceed 2,400 mg/day OR Extended release tablet: 600-1200 mg every 12 hours, not to exceed 2,400 mg/day - Delsym is a cough suppressant: Oral: 10-20 mg every 4 hours or 30 mg every 6-8 hours OR Extended release: 60 mg twice daily; maximum: 120 mg/day - If you have high blood pressure or hypertension it is safe to take Coricidin HBP Cough & Cold. If you smoke it is advised that you quit smoking. CONTACT YOUR DOCTOR IF: You have fevers for longer than five days or a fever more than 102 degrees You are still sick after 10 days After several days you are getting worse rather than better 4. You develop nausea, vomiting, diarrhea, or a rash. Go to the ER if you - experience pressure or pain in your chest - experience difficulty swallowing - experience difficulty breathing Follow up in 7-10 days or before if your symptoms get worse. documented in this encounterAkron [facility]02-15-2023 History of Present illness Narrative* Lulu Swanson APRN.CNP - 03/27/2022 3:06 PM EST 61 year old female with c/o URI sx since Friday. Sore throat: Yes. Runny/stuffy nose: Yes. Postnasal drip: No. Throat clearing: No. Sinus pain/ pressure: No. Teeth pain: No. Headache Yes. Body aches Yes. Ear pain: Yes. Cough: Yes. Production: Yes. Fever: No. Hx asthma No. Hx pneumonia No. Smoker: Yes. OTC meds tried: advil for headache. ACTIVE PROBLEM LIST Tobacco Abuse Hyperlipidemia With Target Ldl Less Than 100 Non-Alcoholic Fatty Liver Disease Peripheral Arterial Disease (Hcc) Diabetes Mellitus With Peripheral Artery Disease (Hcc) Hyponatremia Type 2 Diabetes Mellitus With Stage 3 Chronic Kidney Disease, Without Long-Term Current Use of Insulin (Hcc) Chronic Insomnia Recurrent Major Depressive Disorder, in Full Remission (Hcc) History of Rectal Polypectomy Change in Bowel Habit Mucopurulent Chronic Bronchitis (Hcc) Shoulder Impingement Syndrome, Right Situational Anxiety Left Sided Sciatica Cheek Mass Premature Atrial Contraction Caffeine Use Disorder Chronic Right Shoulder Pain Nontraumatic Complete Tear of Right Rotator Cuff Current Outpatient Medications Medication Sig Dispense Refill imipramine HCl (TOFRANIL) 50 mg tablet take 3 tablets by mouth at bedtime 270 tablet 0 zolpidem (AMBIEN) 10 mg Take 1 tablet by mouth daily at bedtime for 30 days. Do not start before March 16, 2022. 30 tablet 0 cyclobenzaprine (FLEXERIL) 5 mg tablet Take 1 tablet by mouth three times daily as needed. 90 tablet 1 ondansetron orally disintegrating (ZOFRAN ODT) 4 mg disintegrating tablet Take 1 tablet by mouth every 8 hours as needed for nausea/vomiting. 18 tablet 0 nicotine (NICODERM) 21 mg/24 hr Apply 1 Patch as directed every 24 hours. Apply a patch daily for 6weeks, then start 14mg patches 42 Patch 0 nicotine (NICODERM) 14 mg/24 hr Apply 1 Patch as directed every 24 hours. No smoking with patch. Apply a patch daily for 2 weeks, then start 7mg patches 14 Patch 0 nicotine (NICODERM) 7 mg/24 hr Apply 1 Patch as directed every 24 hours. Apply a patch daily for 2 weeks 14 Patch 0 omeprazole (PRILOSEC) 20 mg capsule Take 1 capsule by mouth daily before breakfast. 1/2 hr before meal. 30 capsule 2 albuterol HFA (VENTOLIN HFA) 90 mcg/actuation inhaler Inhale 2 Puffs as instructed every 4 hours asneeded for wheezing/shortness of breath. 1 Each 1 guaiFENesin (MUCINEX) 600 mg 12 hr tablet Take 2 tablets by mouth twice daily. 60 tablet 0 thiothixene (NAVANE) 1 mg capsule Take 2 capsules by mouth twice daily. 120 capsule 11 NIFEdipine XL (ADALAT CC) 30 mg 24 hr tablet take 1 tablet by mouth once daily 90 tablet 3 metFORMIN (GLUCOPHAGE) 500 mg tablet take 1 tablet by mouth once daily with dinner 30 tablet 11 lisinopril (ZESTRIL, PRINIVIL) 5 mg tablet take 1 tablet by mouth once daily 30 tablet 11 blood sugar diagnostic (BLOOD GLUCOSE TEST) test strip Test blood sugar(s) 1 times daily. Dx: Type 2 DM - Controlled E11.9 Insulin: No 50 Strip 11 Lancets lancets Test blood sugar(s) 1 times daily. Dx: Type 2 DM - Controlled E11.9 Insulin: No 100Each 11 atorvastatin (LIPITOR) 20 mg tablet take 1 tablet by mouth once daily 90 tablet 3 polyethylene glycol 3350 (MIRALAX, GLYCOLAX) 17 gram/dose powder Use as directed for Miralax / Gatorade Bowel Prep Kit 238 g 0 Gatorade Sports Drink Use as directed for Miralax / Gatorade Bowel Prep Kit 64 oz 0 Bisacodyl (DULCOLAX) 5 mg tab Use as directed for Miralax / Gatorade Bowel Prep Kit 4 tablet 0 busPIRone (BUSPAR) 5 mg tablet Take 1 tablet by mouth three times daily as needed. 90 tablet 1 Melatonin 5 mg cap Take 1 capsule by mouth once daily. Aspirin 81 mg tab Take 1 tablet by mouth once daily. Take with food. 30 tablet 11 No current facility-administered medications for this visit. OBJECTIVE: BP 120/70 Pulse 80 Resp 18 Wt 68.9 kg (152 lb) LMP 11/13/2009 SpO2 95% BMI 28.72 kg/m General Appearance: Well appearing, alert, in no acute distress, well-hydrated, well nourished.. Skin: Skin color, texture, turgor normal, no suspicious rashes or lesions. Head: Normocephalic, no masses, lesions, tenderness or abnormalities. Eyes: Anicteric sclera. Pupils are equally round and reactive to light. Extraocular movements are intact. . Ears: External ears normal, canals clear. Nose/Sinuses: Nares normal, septum midline, mucosa normal, no drainage or sinus tenderness. Oropharynx: Lips, mucosa, and tongue normal, teeth and gums normal, oropharynx normal. Neck: Supple, no adenopathy; thyroid symmetric, normal size, no bruits. Lungs: Lungs clear to auscultation. No wheezing, rhonchi, rales.. Heart: RRR without murmur, gallop, or rubs. No ectopy. Neurologic: Gait normal. ASSESSMENT/PLAN: 1. Viral upper respiratory tract infection - ICD9: 465.9, ICD10: J06.9 - Discussed viral etiology and rationale for treatment. - Symptomatic treatment with prn analgesia - Supportive care with fluids and rest - COVID WITH FLUA+B, ROUTINE - GUAIFENESIN ER 600 MG TABLET, EXTENDED RELEASE 12 HR Notify provider if any worsening, or no improvement by next week. Nasal saline, decongestant, cool mist, rest , fluids, good nutrition Observation 5-7 days for improvment If worse, fever > 101F : call or return See orders and/or patient instructions. Patient ( or Guardian) expressed understanding of instructions on review. Discussed treatment plan and patient voices understanding. Patient's questions answered appropriately. Medications and potential side effects were discussed and patient voices understanding. Return to the office as scheduled or as needed for worsening/no improvement. Lulu Swanson APRN.CANDACE documented in this encounterAkron [facility]01-31-2023 Miscellaneous Notes* Telephone Encounter - Stephanie Kapadia APRN.CNP, DNP - 03/12/2022 9:07 AM EST Noted. Stephanie Kapadia APRN.CNP, DNP * Telephone Encounter - Kell Suarez - 05/18/2021 1:35 PM EDT Attempt #1 to contact patient to schedule consult, VM box is full. * Telephone Encounter - Stephanie Kapadia APRN.CNP, DNP - 05/18/2021 11:30 AM EDT Orders signed Orders Placed This Encounter CONSULT TO GASTROENTEROLOGY Order Comments: 60-year-old female with frequent loose stools and right upper quadrant discomfort. Right upper quadrant sound was completed which was unremarkable. Recommend consultation with gastroenterology. Please evaluate and treat Standing Status: Future Standing Expiration Date: 05/18/2022 Order Specific Question: Does consulting provider have [facility] Epic access? Answer: Yes Stephanie Kapadia DNP, CNP [facility] * Telephone Encounter - Mi Espinoza RN - 05/18/2021 11:23 AM EDT Patient calls and notified of results and providers instructions. Patient reports that she has continued loose stools and abdominal discomfort. Patient would like to consult GI. Order pended. Mi Espinoza RN * Telephone Encounter - Jaja Levine Cma - 05/17/2021 12:01 PM EDT No answer and vm full will try back later Jaja Levine Cma * Telephone Encounter - Jaja Levine Cma - 05/17/2021 12:01 PM EDT ----- Message from Stephanie Kapadia APRN.DYAN MARIA sent at 05/17/2021 11:46 AM EDT ----- Inform the patient RUQ US test results show: IMPRESSION: Right kidney not well visualized. Otherwise, normal sonographic appearance of the RIGHT upper quadrant. Instruct the patient if she continues to have loose stools and/or abdominal pain that I would recommend we have her see GI. Stephanie Kapadia APRN.DYAN MARIA documented in this encounterAkron Children'[facility]01-27-2023 Miscellaneous Notes* Telephone Encounter - Lavon Terry LPN - 03/08/2022 3:36 PM EST GIN 12/03/21 *Pt no showed appt's on 01/23/22 and 03/04/22 NOV no upcoming appt * Telephone Encounter - Cecy Mitchell - 03/08/2022 3:29 PM EST Patient has been identified by name and date of : Yes Requested Prescriptions Pending Prescriptions Disp Refills zolpidem (AMBIEN) 10 mg 30 tablet 0 Sig: Take 1 tablet by mouth daily at bedtime for 30 days. RX INSTRUCTIONS: Patient aware RX will be sent to pharmacy. No need to notify patient. Cecy Mitchell documented in this encounterAkron Children'[facility] Hospital01-12-2023 Miscellaneous Notes* Telephone Encounter - Love Barron LPN - 02/21/2022 12:23 PM EST Phone call placed patient advised (see prior provider encounter) Patient verbalized understanding, agreed with plan of care. Love Barron LPN * Telephone Encounter - Love Barron LPN - 02/21/2022 12:21 PM EST ----- Message from Franc Carreon MD sent at 02/21/2022 9:00 AM EST ----- Negative COVID and influenza. documented in this encounterAkron Children'S Hospital01-11-2023 Instructions* Patient Instructions* Jo Ann Vivar APRN.CNP - 02/20/2022 4:06 PM EST Nausea and vomiting, unspecified vomiting type (primary encounter diagnosis) You have been diagnosed with an illness caused by a virus. Antibiotics do not cure viral infections. If given when not needed, antibiotics can be harmful. The treatments described below will help youfeel better while your body's own defenses are fighting the virus. General Instructions: Drink extra water and juice. Use a cool mist vaporizer or saline nasal spray to relieve congestion. For Sore throats, use ice chips or sore throat spray; lozenges for older children and adults. Specific Medications: Fever, aches, ear pain: Use medicines according to the package instructions or as directed by your healthcare provider. Stop the medication when the symptoms get better. No follow-ups on file. documented in this encounterAkron Children'S Hospital01-11-2023 History of Present illness Narrative* Jo Ann Vivar APRN.CNP - 02/20/2022 4:00 PM EST This note was created using [email or web address]. Subjective David Aldrich is a 61 year old female. 61 years old female is here with acute onset of illness started last night +nausea and vomiting last night and twice today Denies bloody emesis. +nasal congestion +greenish nasal discharges +frontal headache started last night Denies abdominal pain. Denies sore throat Denies ear pain, drainage Denies cough Denies chest pain, palpitations, edema to lower extremities Reported history of heart murmurs and high blood pressure, taking her medications daily Denies acid reflex symptoms Denies difficulty of swallowing Denies abdominal pain, diarrhea or constipation Denies urinary urgency or frequency, flank pain, pain or burning with urination Denies generalized aches, joints pain Reported recent contact with family member who was positive for INFLUENZA AND STREP Reported a lot of stress at work The history is provided by the patient. No technician biological health was used. Vomiting This is a new problem. The current episode started yesterday. The problem occurs 2 to 4 times per day. The problem has not changed since onset.Emesis appearance: liquid contest. There has been no fever. Pertinent negatives include no abdominal pain, no arthralgias, no chills, no cough, no diarrhea,no fever, no headaches, no myalgias, no sweats and no URI. Risk factors include ill contacts. PAST MEDICAL HISTORY Diagnosis Date Arrhythmia Bradycardia Diabetes mellitus with peripheral artery disease (HCC) 03/06/2015 H/O percutaneous left heart catheterization May, negative--[facility] History of rectal polypectomy 09/23/201712/2014: hyperplastic polyp Hyperlipidemia LDL goal < 100 01/25/2013 Hypertension Major depressive disorder, recurrent episode, unspecified Non-alcoholic fatty liver disease 10/13/2014 Other and unspecified hyperlipidemia Other chronic nonalcoholic liver disease 01/16 fatty liver disease Peripheral arterial disease (HCC) 03/06/2015 Recurrent major depressive disorder, in full remission (HCC) 03/10/2017 Snoring Type 2 diabetes mellitus with stage 3 chronic kidney disease, without long-term current use of insulin (HCC) 05/11/2016 PAST SURGICAL HISTORY Procedure Laterality Date APPENDECTOMY 1971 CAROTID ENDARTERECTOMY 06/16/2012 Right carotid COLONOSCOPY 12/12/14 Repeat 2017 ALLERGIES Zocor [Simvastatin] MEDICATIONS zolpidem (AMBIEN) 10 mg Take 1 tablet by mouth daily at bedtime for 30 days. imipramine HCl (TOFRANIL) 50 mg tablet take 3 tablets by mouth at bedtime nicotine (NICODERM) 21 mg/24 hr Apply 1 Patch as directed every 24 hours. Apply a patch daily for 6weeks, then start 14mg patches nicotine (NICODERM) 14 mg/24 hr Apply 1 Patch as directed every 24 hours. No smoking with patch. Apply a patch daily for 2 weeks, then start 7mg patches nicotine (NICODERM) 7 mg/24 hr Apply 1 Patch as directed every 24 hours. Apply a patch daily for 2 weeks cyclobenzaprine (FLEXERIL) 5 mg tablet Take 1 tablet by mouth three times daily as needed. omeprazole (PRILOSEC) 20 mg capsule Take 1 capsule by mouth daily before breakfast. 1/2 hr before meal. albuterol HFA (VENTOLIN HFA) 90 mcg/actuation inhaler Inhale 2 Puffs as instructed every 4 hours asneeded for wheezing/shortness of breath. guaiFENesin (MUCINEX) 600 mg 12 hr tablet Take 2 tablets by mouth twice daily. thiothixene (NAVANE) 1 mg capsule Take 2 capsules by mouth twice daily. NIFEdipine XL (ADALAT CC) 30 mg 24 hr tablet take 1 tablet by mouth once daily metFORMIN (GLUCOPHAGE) 500 mg tablet take 1 tablet by mouth once daily with dinner lisinopril (ZESTRIL, PRINIVIL) 5 mg tablet take 1 tablet by mouth once daily blood sugar diagnostic (BLOOD GLUCOSE TEST) test strip Test blood sugar(s) 1 times daily. Dx: Type 2 DM - Controlled E11.9 Insulin: No Lancets lancets Test blood sugar(s) 1 times daily. Dx: Type 2 DM - Controlled E11.9 Insulin: No atorvastatin (LIPITOR) 20 mg tablet take 1 tablet by mouth once daily polyethylene glycol 3350 (MIRALAX, GLYCOLAX) 17 gram/dose powder Use as directed for Miralax / Gatorade Bowel Prep Kit Gatorade Sports Drink Use as directed for Miralax / Gatorade Bowel Prep Kit Bisacodyl (DULCOLAX) 5 mg tab Use as directed for Miralax / Gatorade Bowel Prep Kit busPIRone (BUSPAR) 5 mg tablet Take 1 tablet by mouth three times daily as needed. Melatonin 5 mg cap Take 1 capsule by mouth once daily. Aspirin 81 mg tab Take 1 tablet by mouth once daily. Take with food. ondansetron orally disintegrating (ZOFRAN ODT) 4 mg disintegrating tablet Take 1 tablet by mouth every 8 hours as needed for nausea/vomiting. FAMILY HISTORY Problem Relation Age of Onset Heart Mother Diabetes Father other (Parkinson's disease [Other]) Brother Social History Tobacco Use Smoking status: Every Day Packs/day: 1.00 Years: 25.00 Pack years: 25.00 Types: Cigarettes Smokeless tobacco: Never Vaping Use Vaping Use: Never used Substance Use Topics Alcohol use: Not Currently Comment: quit 04/18 Drug use: No Review of Systems Constitutional: Positive for appetite change (decreased appetite). Negative for activity change, chills, diaphoresis, fatigue and fever. HENT: Positive for congestion, postnasal drip, rhinorrhea, sinus pressure and sinus pain. Negative for dental problem, drooling, ear discharge, ear pain, facial swelling, hearing loss, mouth sores, nosebleeds, sneezing, sore throat, tinnitus and trouble swallowing. Eyes: Negative for pain, discharge, redness and visual disturbance. Respiratory: Positive for shortness of breath (@ baseline per patient. + smoker). Negative for cough, chest tightness and wheezing. Cardiovascular: Negative for chest pain, palpitations and leg swelling. Gastrointestinal: Positive for nausea and vomiting. Negative for abdominal pain, anal bleeding, constipation and diarrhea. Genitourinary: Negative for decreased urine volume, difficulty urinating, dysuria, flank pain, frequency, hematuria and urgency. Musculoskeletal: Negative for arthralgias, back pain, gait problem, joint swelling and myalgias. Skin: Negative for color change, pallor, rash and wound. Allergic/Immunologic: Positive for immunocompromised state. Negative for environmental allergies and food allergies. Neurological: Negative for dizziness, weakness, light-headedness and headaches. Hematological: Negative for adenopathy. Does not bruise/bleed easily. Psychiatric/Behavioral: Negative for behavioral problems. Objective BP 132/82 Pulse 85 Temp 36.7 C (98.1 F) Resp 21 Wt 70.7 kg (155 lb 12.8 oz) LMP 01/08/2010 SpO2 98% BMI 29.44 kg/m Physical Exam Vitals and nursing note reviewed. Constitutional: General: She is not in acute distress. Appearance: Normal appearance. She is not ill-appearing, toxic-appearing or diaphoretic. HENT: Head: Normocephalic and atraumatic. Nose: Congestion and rhinorrhea present. Mouth/Throat: Mouth: Mucous membranes are dry. Pharynx: Oropharynx is clear. No oropharyngeal exudate or posterior oropharyngeal erythema. Eyes: General: No scleral icterus. Right eye: No discharge. Left eye: No discharge. Conjunctiva/sclera: Conjunctivae normal. Pupils: Pupils are equal, round, and reactive to light. Neck: Thyroid: No thyroid mass, thyromegaly or thyroid tenderness. Vascular: No carotid bruit. Cardiovascular: Rate and Rhythm: Normal rate and regular rhythm. Pulses: Normal pulses. Heart sounds: No murmur heard. No friction rub. No gallop. Pulmonary: Effort: Pulmonary effort is normal. No respiratory distress. Breath sounds: No stridor. No wheezing, rhonchi or rales. Comments: Diminished lungs sounds in bilateral lower lobes Chest: Chest wall: No tenderness. Abdominal: General: Bowel sounds are normal. There is no distension. Palpations: Abdomen is soft. There is no mass. Tenderness: There is no abdominal tenderness. There is no right CVA tenderness, left CVA tenderness, guarding or rebound. Hernia: No hernia is present. Musculoskeletal: General: No swelling, tenderness, deformity or signs of injury. Normal range of motion. Cervical back: No rigidity or tenderness. Right lower leg: No edema. Left lower leg: No edema. Lymphadenopathy: Cervical: No cervical adenopathy. Skin: General: Skin is warm. Capillary Refill: Capillary refill takes less than 2 seconds. Coloration: Skin is not jaundiced or pale. Findings: No bruising, erythema, lesion or rash. Neurological: General: No focal deficit present. Mental Status: She is alert and oriented to person, place, and time. Sensory: No sensory deficit. Motor: No weakness. Coordination: Coordination normal. Gait: Gait normal. Psychiatric: Mood and Affect: Mood normal. Behavior: Behavior normal. Assessment and Plan ASSESSMENT/PLAN: 1. Nausea and vomiting, unspecified vomiting type - ICD9: 787.01, ICD10: R11.2 No red flags Denies abdominal pain. Etiology most likely viral Amicable to influenza testing. Will provide with Zofran, - GLUCOSE, BLOOD (POC) - COVID WITH FLUA+B, ROUTINE 2. URI, acute - ICD9: 465.9, ICD10: J06.9 - Discussed viral etiology and rationale for treatment. - Symptomatic treatment with prn analgesia - Supportive care with fluids and rest - take OTC analgesics Tylenol or ibuprofen as needed for headache and symptoms relieve, take OTC cold or cough medicine for symptoms relieve as needed Follow up with PCP Margie Whitley TEACHING PROVIDER (Physician/PA/ASSOCIATE PROFESSOR OF AUTOMATION) NOTE OF PERSONAL INVOLVEMENT IN CARE: I have personally seen and examined the patient and performed the medical decision-making components. I have reviewed the Advanced Practice Registered Nurse (ASSOCIATE PROFESSOR OF AUTOMATION) Student's documentation and verified the findings in the note as written. Any additions or changes are noted in bold/italics. Signature: Jo Ann Vivar Date: 02/20/2022 Time: 5:32 PM documented in this encounterAk[facility]12[facility] Miscellaneous Notes* Telephone Encounter - Lavon Terry LPN - 01/22/2022 2:16 PM EST Pt notified. She verbalized understanding. Pt has appt tomorrow with Lulu, she will discuss further with her. Lavon Terry LPN * Telephone Encounter - Keeley Barron LPN - 01/18/2022 11:20 AM EST Attempted to reach pt by phone. Mailbox if full. Try later. Keeley Barron LPN * Telephone Encounter - Lulu Swanson APRN.CNP - 01/18/2022 9:07 AM EST There isn't a specific blood test for parkinson's. I went ahead and added a heavy metal test with her other labs to rule out this being a cause of her tremors. We may want to have her see neurology for the tremors, especially in light of her family history. * Telephone Encounter - Elaine Machuca RN - 01/17/2022 1:11 PM EST Patient has appointment with provider on 01/23/2022. Patient has labs placed but is asking providerif there any labs/testing that can be added prior to appointment to evaluate on whether or not if she has Parkinson's. Patient states that she has been shaking a lot more and someone had brought thisto her attention. Patient's brother has Parkinson's. Please review and advise, Elaine Machuca RN documented in this encounterAkron [facility]12-12-2022 History of Present illness Narrative* Anya John MD - 01/21/2022 7:25 PM EST David Aldrich 1960 REFERRING PHYSICIAN: Self CHIEF COMPLAINT: Follow Up (Skin lesion on face, last seen one year ago) HPI: The patient is a 61 year old female with a complaint of skin lesion of upper left cheek area. I had seen patient in past, and had offered excision but patient was concerned about the possible cosmetic outcome and did not want to pursue excision. It is irritating to her She states that the lesion has become more protruding and she is concerned about cancer. PAST MEDICAL HISTORY Diagnosis Date Arrhythmia Bradycardia Diabetes mellitus with peripheral artery disease (HCC) 03/06/2015 H/O percutaneous left heart catheterization May, negative--[facility] History of rectal polypectomy 09/23/201712/2014: hyperplastic polyp Hyperlipidemia LDL goal < 100 01/25/2013 Hypertension Major depressive disorder, recurrent episode, unspecified Non-alcoholic fatty liver disease 10/13/2014 Other and unspecified hyperlipidemia Other chronic nonalcoholic liver disease 01/16 fatty liver disease Peripheral arterial disease (HCC) 03/06/2015 Recurrent major depressive disorder, in full remission (HCC) 03/10/2017 Snoring Type 2 diabetes mellitus with stage 3 chronic kidney disease, without long-term current use of insulin (HCC) 05/11/2016 PAST SURGICAL HISTORY Procedure Laterality Date APPENDECTOMY 1971 CAROTID ENDARTERECTOMY 06/16/2012 Right carotid COLONOSCOPY 12/12/14 Repeat 2018 Current Outpatient Medications Medication Sig zolpidem (AMBIEN) 10 mg Take 1 tablet by mouth daily at bedtime for 30 days. Do not start before January 15, 2022. imipramine HCl (TOFRANIL) 50 mg tablet take 3 tablets by mouth at bedtime nicotine (NICODERM) 21 mg/24 hr Apply 1 Patch as directed every 24 hours. Apply a patch daily for 6weeks, then start 14mg patches nicotine (NICODERM) 14 mg/24 hr Apply 1 Patch as directed every 24 hours. No smoking with patch. Apply a patch daily for 2 weeks, then start 7mg patches nicotine (NICODERM) 7 mg/24 hr Apply 1 Patch as directed every 24 hours. Apply a patch daily for 2 weeks cyclobenzaprine (FLEXERIL) 5 mg tablet Take 1 tablet by mouth three times daily as needed. omeprazole (PRILOSEC) 20 mg capsule Take 1 capsule by mouth daily before breakfast. 1/2 hr before meal. albuterol HFA (VENTOLIN HFA) 90 mcg/actuation inhaler Inhale 2 Puffs as instructed every 4 hours asneeded for wheezing/shortness of breath. guaiFENesin (MUCINEX) 600 mg 12 hr tablet Take 2 tablets by mouth twice daily. thiothixene (NAVANE) 1 mg capsule Take 2 capsules by mouth twice daily. NIFEdipine XL (ADALAT CC) 30 mg 24 hr tablet take 1 tablet by mouth once daily metFORMIN (GLUCOPHAGE) 500 mg tablet take 1 tablet by mouth once daily with dinner lisinopril (ZESTRIL, PRINIVIL) 5 mg tablet take 1 tablet by mouth once daily blood sugar diagnostic (BLOOD GLUCOSE TEST) test strip Test blood sugar(s) 1 times daily. Dx: Type 2 DM - Controlled E11.9 Insulin: No Lancets lancets Test blood sugar(s) 1 times daily. Dx: Type 2 DM - Controlled E11.9 Insulin: No atorvastatin (LIPITOR) 20 mg tablet take 1 tablet by mouth once daily ondansetron orally disintegrating (ZOFRAN ODT) 4 mg disintegrating tablet Take 1 tablet by mouth every 8 hours as needed for nausea/vomiting. polyethylene glycol 3350 (MIRALAX, GLYCOLAX) 17 gram/dose powder Use as directed for Miralax / Gatorade Bowel Prep Kit Gatorade Sports Drink Use as directed for Miralax / Gatorade Bowel Prep Kit Bisacodyl (DULCOLAX) 5 mg tab Use as directed for Miralax / Gatorade Bowel Prep Kit busPIRone (BUSPAR) 5 mg tablet Take 1 tablet by mouth three times daily as needed. Melatonin 5 mg cap Take 1 capsule by mouth once daily. Aspirin 81 mg tab Take 1 tablet by mouth once daily. Take with food. ALLERGIES: Zocor [Simvastatin] PERSONAL HISTORY: Social History Tobacco Use Smoking status: Every Day Packs/day: 1.00 Years: 25.00 Pack years: 25.00 Types: Cigarettes Smokeless tobacco: Never Vaping Use Vaping Use: Never used Substance Use Topics Alcohol use: Not Currently Comment: quit 04/18 Drug use: No FAMILY HISTORY Problem Relation Age of Onset Heart Mother Diabetes Father other (Parkinson's disease [Other]) Brother The review of systems data was entered by the nurse and reviewed by me Nursing Notes: Alyssia ReyesGARETH 01/21/2022 10:09 AM Signed REVIEW OF SYSTEMS: General: The patient denies fatigue, denies weight loss, denies weight gain, denies feeling hot, and denies feelings of cold. Eyes: The patient denies glaucoma, denies eye injury/surgery, wears glasses or contacts. Ear/Nose/Throat: The patient notes allergies, denies hayfever, denies ear infections, and denies bloody noses. Cardiovascular: The patient denies chest pain, denies heart disease, notes high blood pressure,denies cardiac stent, denies prior heart attack, denies irregular heart beat, notes high cholesterol, denies poor circulation, denies heart failure, other cardiac issues, denies claudication, denies cold feet, denies peripheral arterial stent. Respiratory: The patient denies tuberculosis, denies pneumonia, denies frequent cough, denies pulmonary embolism, notes shortness of breath, and denies coughing up blood. Gastrointestinal: The patient denies difficulty swallowing, denies acid reflux, denies ulcers, denies vomiting, denies jaundice/hepatitis, denies gallbladder problems, denies black or tarry stools, denies hemorrhoids, denies bleeding from rectum, denies diverticulitis, denies constipation, denies diarrhea, denies loss of stool control, and denies hernias. Kidney/Bladder: The patient denies kidney stones, denies urine infections, and denies bloody urine. Skin: The patient denies a history of skin cancer, denies bleeding/changing moles, and denies a history of skin rash. Neurologic: The patient denies a history of epilepsy/convulsions, denies headaches, denies head/spinal injuries, and denies stroke/TIA. Psychiatric: The patient denies psychiatric medications, denies depression, and denies voices, denies substance abuse. Endocrine: The patient denies thyroid disorders, notes diabetes, and denies hormonal problems. Hematologic: The patient denies a history of bruising, denies bleeding, and denies anemia, denies blood clots. Infections: The patient denies a history of measles and mumps, denies rheumatic fever, and denies sexually transmitted diseases. Musculoskeletal: The patient denies back pain/injury, denies back problems, denies sciatica, deniesknee/foot trouble, denies arthritis, or denies gout. When was patient's last Mammogram screening? 2021 Last Colonoscopy: 2014 Alyssia Reyes LPN PHYSICAL EXAMINATION: General: The patient is 61 year old female, well nourished, well hydrated in no acute distress. Thepatient is oriented to time, place, and person. VITALS: Blood pressure 138/70, pulse (!) 48, temperature 36.2 C (97.1 F), height 154.9 cm (5' 1"), weight 72.1 kg (159 lb), last menstrual period 01/08/2010, SpO2 97 %. Body mass index is 30.04 kg/m . Head: Normal cephalic, atraumatic Eyes: pupils are equally round, sclera are clear/anicteric Face - upper left cheek with 4 mm nodular skin lesion with central blackhead appearance Neck is supple with no tracheal deviation Respiratory: Normal respiratory excursion and pattern. Abdominal exam: benign Extremities: no clubbing, cyanosis or edema. Neuro: non focal Psych: normal mood Assessment IMPRESSION: skin lesion of face PLAN: I have discussed the above with the patient. I have offered excision of this facial skin lesion. I have explained the procedure to the patient. To be done in the office using local anesthesia. I have counseled the patient as to the risks of the procedure, including but not limited to: infection, bleeding, injury to any blood vessels/nerves, scar tissue, cosmetic deformity, wound infections, complications of anesthesia, etc. - the patient understands. The patient wishes to proceed. I have answered all questions to the patient s satisfaction and the patient has no further questions. I have confirmed and edited as necessary, the PFSH and ROS obtained by others. . Diagnoses: (L98.9) Skin lesion of face (primary encounter diagnosis) (R20.8) Dysesthesia Return to Clinic: The patient will be scheduled for procedure in the office as above. I spent a total of 21 minutes on the date of the service which included preparing to see the patient with review of any pertinent laboratory studies/radiological imaging/medical records, [id number] care, obtaining oral medical history from the patient in this encounter, performing a medically appropriate examination, counseling and educating the patient/family/caregiver, and ordering and/or scheduling of medications/tests/procedures, and completing appropriate medical documentation. Anya John MD documented in this encounterAk[facility]12-12-2022 Nurse Note* Alyssia ReyesGARETH - 01/21/2022 10:07 AM EST REVIEW OF SYSTEMS: General: The patient denies fatigue, denies weight loss, denies weight gain, denies feeling hot, and denies feelings of cold. Eyes: The patient denies glaucoma, denies eye injury/surgery, wears glasses or contacts. Ear/Nose/Throat: The patient notes allergies, denies hayfever, denies ear infections, and denies bloody noses. Cardiovascular: The patient denies chest pain, denies heart disease, notes high blood pressure,denies cardiac stent, denies prior heart attack, denies irregular heart beat, notes high cholesterol, denies poor circulation, denies heart failure, other cardiac issues, denies claudication, denies cold feet, denies peripheral arterial stent. Respiratory: The patient denies tuberculosis, denies pneumonia, denies frequent cough, denies pulmonary embolism, notes shortness of breath, and denies coughing up blood. Gastrointestinal: The patient denies difficulty swallowing, denies acid reflux, denies ulcers, denies vomiting, denies jaundice/hepatitis, denies gallbladder problems, denies black or tarry stools, denies hemorrhoids, denies bleeding from rectum, denies diverticulitis, denies constipation, denies diarrhea, denies loss of stool control, and denies hernias. Kidney/Bladder: The patient denies kidney stones, denies urine infections, and denies bloody urine. Skin: The patient denies a history of skin cancer, denies bleeding/changing moles, and denies a history of skin rash. Neurologic: The patient denies a history of epilepsy/convulsions, denies headaches, denies head/spinal injuries, and denies stroke/TIA. Psychiatric: The patient denies psychiatric medications, denies depression, and denies voices, denies substance abuse. Endocrine: The patient denies thyroid disorders, notes diabetes, and denies hormonal problems. Hematologic: The patient denies a history of bruising, denies bleeding, and denies anemia, denies blood clots. Infections: The patient denies a history of measles and mumps, denies rheumatic fever, and denies sexually transmitted diseases. Musculoskeletal: The patient denies back pain/injury, denies back problems, denies sciatica, deniesknee/foot trouble, denies arthritis, or denies gout. When was patient's last Mammogram screening? 2021 Last Colonoscopy: 2014 Alyssia Reyes LPN documented in this encounterAkron [facility]11-30-2022 Miscellaneous Notes* Telephone Encounter - Lulu Swanson APRN.CNP - 01/09/2022 12:48 PM EST Script sent. Lulu Swanson APRN.CNP * Telephone Encounter - Vannessa Peterson Ma - 01/09/2022 12:33 PM EST Last office visit: 12/14/21 F/u scheduled: 01/23/22 Last refilled on: Ambien #[id number] with 0 refill on 12/17/21 Vannessa Peterson Ma * Telephone Encounter - Neha Louie Pss - 01/09/2022 12:00 PM EST Patient has been identified by name and date of : Yes Last office visit in this department: 12/14/2021 RX INSTRUCTIONS: Patient aware RX will be sent to pharmacy. No need to notify patient. Patient phones requesting refills as follows: Requested Prescriptions Pending Prescriptions Disp Refills zolpidem (AMBIEN) 10 mg 30 tablet 0 Sig: Take 1 tablet by mouth daily at bedtime for 30 days. Please review and advise. Neha Louie Pss documented in this encounterAkron [facility]11-21-2022 History of Present illness Narrative* Anju Garcia APRN.[employer] - 12/31/2021 2:52 PM EST Subjective Patient came in with complaints of right bottom tooth pain. Patient had to call off work today. Patient wanted work note. The history is provided by the patient. No technician biological health was used. Review of Systems Constitutional: Negative. Skin: Negative. Objective Physical Exam Constitutional: Appearance: Normal appearance. Pulmonary: Effort: Pulmonary effort is normal. Neurological: Mental Status: She is alert. PAST MEDICAL HISTORY Diagnosis Date Arrhythmia Bradycardia Diabetes mellitus with peripheral artery disease (HCC) 03/06/2015 H/O percutaneous left heart catheterization May, negative--[facility] History of rectal polypectomy 09/23/201712/2014: hyperplastic polyp Hyperlipidemia LDL goal < 100 01/25/2013 Hypertension Major depressive disorder, recurrent episode, unspecified Non-alcoholic fatty liver disease 10/13/2014 Other and unspecified hyperlipidemia Other chronic nonalcoholic liver disease 01/16 fatty liver disease Peripheral arterial disease (HCC) 03/06/2015 Recurrent major depressive disorder, in full remission (HCC) 03/10/2017 Snoring Type 2 diabetes mellitus with stage 3 chronic kidney disease, without long-term current use of insulin (HCC) 05/11/2016 PAST SURGICAL HISTORY Procedure Laterality Date APPENDECTOMY 1971 CAROTID ENDARTERECTOMY 06/16/2012 Right carotid COLONOSCOPY 12/12/14 Repeat 2018 ALLERGIES Zocor [Simvastatin] MEDICATIONS imipramine HCl (TOFRANIL) 50 mg tablet take 3 tablets by mouth at bedtime nicotine (NICODERM) 21 mg/24 hr Apply 1 Patch as directed every 24 hours. Apply a patch daily for 6weeks, then start 14mg patches nicotine (NICODERM) 14 mg/24 hr Apply 1 Patch as directed every 24 hours. No smoking with patch. Apply a patch daily for 2 weeks, then start 7mg patches nicotine (NICODERM) 7 mg/24 hr Apply 1 Patch as directed every 24 hours. Apply a patch daily for 2 weeks cyclobenzaprine (FLEXERIL) 5 mg tablet Take 1 tablet by mouth three times daily as needed. omeprazole (PRILOSEC) 20 mg capsule Take 1 capsule by mouth daily before breakfast. 1/2 hr before meal. albuterol HFA (VENTOLIN HFA) 90 mcg/actuation inhaler Inhale 2 Puffs as instructed every 4 hours asneeded for wheezing/shortness of breath. guaiFENesin (MUCINEX) 600 mg 12 hr tablet Take 2 tablets by mouth twice daily. zolpidem (AMBIEN) 10 mg Take 1 tablet by mouth daily at bedtime for 30 days. Do not start before December 17, 2021. thiothixene (NAVANE) 1 mg capsule Take 2 capsules by mouth twice daily. NIFEdipine XL (ADALAT CC) 30 mg 24 hr tablet take 1 tablet by mouth once daily metFORMIN (GLUCOPHAGE) 500 mg tablet take 1 tablet by mouth once daily with dinner lisinopril (ZESTRIL, PRINIVIL) 5 mg tablet take 1 tablet by mouth once daily blood sugar diagnostic (BLOOD GLUCOSE TEST) test strip Test blood sugar(s) 1 times daily. Dx: Type 2 DM - Controlled E11.9 Insulin: No Lancets lancets Test blood sugar(s) 1 times daily. Dx: Type 2 DM - Controlled E11.9 Insulin: No atorvastatin (LIPITOR) 20 mg tablet take 1 tablet by mouth once daily ondansetron orally disintegrating (ZOFRAN ODT) 4 mg disintegrating tablet Take 1 tablet by mouth every 8 hours as needed for nausea/vomiting. polyethylene glycol 3350 (MIRALAX, GLYCOLAX) 17 gram/dose powder Use as directed for Miralax / Gatorade Bowel Prep Kit Gatorade Sports Drink Use as directed for Miralax / Gatorade Bowel Prep Kit Bisacodyl (DULCOLAX) 5 mg tab Use as directed for Miralax / Gatorade Bowel Prep Kit busPIRone (BUSPAR) 5 mg tablet Take 1 tablet by mouth three times daily as needed. Melatonin 5 mg cap Take 1 capsule by mouth once daily. Aspirin 81 mg tab Take 1 tablet by mouth once daily. Take with food. FAMILY HISTORY Problem Relation Age of Onset Heart Mother Diabetes Father other (Parkinson's disease [Other]) Brother Social History Tobacco Use Smoking status: Every Day Packs/day: 1.00 Years: 25.00 Pack years: 25.00 Types: Cigarettes Smokeless tobacco: Never Vaping Use Vaping Use: Never used Substance Use Topics Alcohol use: Not Currently Comment: quit 04/18 Drug use: No ASSESSMENT/PLAN: 1. Encounter to obtain excuse from work - ICD9: V68.89, ICD10: Z02.89 Patient has an appointment in the morning with her dentist to follow-up. Patient denied any fevers nausea vomiting but red flag symptoms were discussed with patient if they occur she will go to the ER. Patient did not want treatment here she just wanted a work note. Anju Garcia APRN.CANDACE documented in this encounterAkron [facility]11-15-2022 Miscellaneous Notes* Telephone Encounter - Lavon Terry LPN - 12/25/2021 10:47 AM EST Pt has an appt with PCP on 12/24. * Telephone Encounter - Lulu Swanson APRN.CNP - 12/24/2021 1:07 PM EST Script sent in. Please remind to not smoke with patch on. Please review directions with patient. * Telephone Encounter - Suzanne Quiroz Pss - 12/24/2021 11:39 AM EST Patient called back stating Dr. Naranjo had her on the nicoderm patch at the same dosage. This PSS read her phone note twice about making and appointment and she responded above. * Telephone Encounter - JAYNA Gu - 12/24/2021 11:24 AM EST Phone call placed to patient, no answer, voice mail full. JAYNA Gu * Telephone Encounter - Lulu Swanson APRN.[employer] - 12/24/2021 9:39 AM EST Please schedule appt to discuss. Lulu Swanson APRN.CANDACE * Telephone Encounter - Lavon Terry LPN - 12/22/2021 9:55 AM EST Pt would like to try nicoderm patches again for smoking cessation. Advised PCP out of office until Sunday 12/24. Rx pending. Please review and advise. Lavon Terry LPN documented in this encounterAkron [facility]11-11-2022 Miscellaneous Notes* Telephone Encounter - Maia Garcia MA - 12/21/2021 11:05 AM EST Patient has been identified by name and date of : Yes Requested Prescriptions Pending Prescriptions Disp Refills cyclobenzaprine (FLEXERIL) 5 mg tablet 90 tablet 1 Sig: Take 1 tablet by mouth three times daily as needed. RX INSTRUCTIONS: Patient aware RX will be sent to pharmacy. No need to notify patient. Maia Garcia MA Gin; 12/14 Nov: 12/31 Last refill; 10/31/2021 * Telephone Encounter - Neha oLuie Pss - 12/21/2021 9:18 AM EST Patient has been identified by name and date of : Yes Last office visit in this department: 12/14/2021 RX INSTRUCTIONS: Patient aware RX will be sent to pharmacy. No need to notify patient. Patient phones requesting refills as follows: Requested Prescriptions Pending Prescriptions Disp Refills cyclobenzaprine (FLEXERIL) 5 mg tablet 90 tablet 1 Sig: Take 1 tablet by mouth three times daily as needed. Please review and advise. Neha Mitchell documented in this encounter[facility] History of Present illness Narrative* Alvin Mckeon MD - 12/14/2021 11:03 AM EDT Patient presents with: Vomiting HPI: Patient presents today for office visit for vomiting States that vomiting last Friday and then Friday. Happened again last night. Using a lot of ibuprofen for her shoulder. Was to be repaired surgically but hasn't had it done. Also cleans and uses different chemicals. Doesn't feel ill. Denies fever. Does not check glucose and states that is due to come in and have lab work checked. No one around her is ill. She is asymptomatic today No heartburn. No bowel changes. No acid brash. Not belching or burping as much. No fever or chills. No abd pain No black or bloody stools. No urinary symptoms. Happens at times when she is stressed. Having a lot of job issues. Needs work slip because called off today and was told needs seen. Happens three times a night when occurring. Is due for labs. Already ordered. Will add cbc. Last sugars were good. No thc use. No dizziness, no lightheadedness. No shortness of breath. No chest pain. Feels she is dealing ok with stress. MEDICATIONS: Current Outpatient Medications Medication Sig albuterol HFA (VENTOLIN HFA) 90 mcg/actuation inhaler Inhale 2 Puffs as instructed every 4 hours asneeded for wheezing/shortness of breath. predniSONE (DELTASONE) 10 mg tablet Take 4 tabs daily x 3 days, then 3 tabs x 3 days, 2 tabs x 3 days, then 1 tab x3 days with food. guaiFENesin (MUCINEX) 600 mg 12 hr tablet Take 2 tablets by mouth twice daily. [START ON 12/17/2021] zolpidem (AMBIEN) 10 mg Take 1 tablet by mouth daily at bedtime for 30 days. Do not start before December 17, 2021. thiothixene (NAVANE) 1 mg capsule Take 2 capsules by mouth twice daily. NIFEdipine XL (ADALAT CC) 30 mg 24 hr tablet take 1 tablet by mouth once daily cyclobenzaprine (FLEXERIL) 5 mg tablet Take 1 tablet by mouth three times daily as needed. metFORMIN (GLUCOPHAGE) 500 mg tablet take 1 tablet by mouth once daily with dinner lisinopril (ZESTRIL, PRINIVIL) 5 mg tablet take 1 tablet by mouth once daily imipramine HCl (TOFRANIL) 50 mg tablet take 3 tablets by mouth at bedtime blood sugar diagnostic (BLOOD GLUCOSE TEST) test strip Test blood sugar(s) 1 times daily. Dx: Type 2 DM - Controlled E11.9 Insulin: No Lancets lancets Test blood sugar(s) 1 times daily. Dx: Type 2 DM - Controlled E11.9 Insulin: No atorvastatin (LIPITOR) 20 mg tablet take 1 tablet by mouth once daily ondansetron orally disintegrating (ZOFRAN ODT) 4 mg disintegrating tablet Take 1 tablet by mouth every 8 hours as needed for nausea/vomiting. polyethylene glycol 3350 (MIRALAX, GLYCOLAX) 17 gram/dose powder Use as directed for Miralax / Gatorade Bowel Prep Kit Gatorade Sports Drink Use as directed for Miralax / Gatorade Bowel Prep Kit Bisacodyl (DULCOLAX) 5 mg tab Use as directed for Miralax / Gatorade Bowel Prep Kit busPIRone (BUSPAR) 5 mg tablet Take 1 tablet by mouth three times daily as needed. Melatonin 5 mg cap Take 1 capsule by mouth once daily. Aspirin 81 mg tab Take 1 tablet by mouth once daily. Take with food. No current facility-administered medications for this visit. ALLERGIES: ALLERGIES Allergen Reactions Zocor [Simvastatin] Other: See Comments myalgia PAST MEDICAL HISTORY Diagnosis Date Arrhythmia Bradycardia Diabetes mellitus with peripheral artery disease (HCC) 03/06/2015 H/O percutaneous left heart catheterization May, negative--[facility] History of rectal polypectomy 09/23/201712/2014: hyperplastic polyp Hyperlipidemia LDL goal < 100 01/25/2013 Hypertension Major depressive disorder, recurrent episode, unspecified Non-alcoholic fatty liver disease 10/13/2014 Other and unspecified hyperlipidemia Other chronic nonalcoholic liver disease 01/16 fatty liver disease Peripheral arterial disease (HCC) 03/06/2015 Recurrent major depressive disorder, in full remission (HCC) 03/10/2017 Snoring Type 2 diabetes mellitus with stage 3 chronic kidney disease, without long-term current use of insulin (HCC) 05/11/2016 PAST SURGICAL HISTORY Procedure Laterality Date APPENDECTOMY 1971 CAROTID ENDARTERECTOMY 06/16/2012 Right carotid COLONOSCOPY 12/12/14 Repeat 2018 FAMILY HISTORY Problem Relation Age of Onset Heart Mother Diabetes Father other (Parkinson's disease [Other]) Brother Social History Tobacco Use Smoking status: Every Day Packs/day: 1.00 Years: 25.00 Pack years: 25.00 Types: Cigarettes Smokeless tobacco: Never Vaping Use Vaping Use: Never used Substance Use Topics Alcohol use: Not Currently Comment: quit 04/18 Drug use: No Reviewed current medications, allergies, past medical history, surgical history, family history andsocial history today. REVIEW OF SYSTEMS All other reviewed and negative other than HPI. VITALS: BP 112/62 Pulse 87 Temp 36.4 C (97.5 F) (Tympanic) Wt 72.1 kg (159 lb) LMP 01/08/2010 SpO2 98% BMI 30.04 kg/m Last 4 Encounter Wt Readings: Date: Wt: 12/03/2021 72.6 kg (160 lb) 11/28/2021 72.1 kg (159 lb) 10/18/2021 71.4 kg (157 lb 6.4 oz) 08/29/2021 69.6 kg (153 lb 6.4 oz) PHYSICAL EXAMINATION: General appearance: Well appearing, alert, in no acute distress, well-hydrated, well nourished. Skin: Skin color, texture, turgor normal, no suspicious rashes or lesions Head: Normocephalic, no masses, lesions, tenderness or abnormalities Eyes: Anicteric sclera. Pupils are equally round and reactive to light. Extraocular movements are intact. Lungs: Lungs clear to auscultation. No wheezing, rhonchi, rales Heart: RRR without murmur, gallop, or rubs. No ectopy Abdomen: Normal abdominal exam, Abdomen soft, non-tender. Bowel sounds normal. No masses, organomegaly Extremities: No deformities, edema, skin discoloration, clubbing or cyanosis. Good capillary refill. Musculoskeletal: No joint swelling, deformity, or tenderness Peripheral pulses: Normal Neuro: Negative. ASSESSMENT/PLAN: 1. Vomiting without nausea, unspecified vomiting type - ICD9: 787.03, ICD10: R11.11 - add prilosec. Light diet. Off work slip given. Check labs. Limit ibu Red flags for re-assessment reviewed with patient in detail. - CBC + DIFF - OMEPRAZOLE 20 MG CAPSULE,DELAYED RELEASE 2. Hyperlipidemia with target LDL less than 100 - ICD9: 272.4, ICD10: E78.5 - check labs 3. Diabetes mellitus with peripheral artery disease (HCC) - ICD9: 250.70, 443.81, ICD10: E11.51 - check labs. 4. Type 2 diabetes mellitus with stage 3a chronic kidney disease, without long- term current use of insulin (HCC) - ICD9: 250.40, 585.3, ICD10: E11.22, N18.31 - check labs. Alvin Mckeon MD Keep follow up with Lulu as scheduled or prn. documented in this encounterAkron [facility]10-20-2022 Miscellaneous Notes* Telephone Encounter - Keeley Barron LPN - 11/29/2021 10:54 AM EDT Spoke with pt and information listed below given. Pt verbalizes understanding. Keeley Barron LPN * Telephone Encounter - Taylor Gonzales LPN - 11/29/2021 9:07 AM EDT Unable to reach patient and mailbox is full-will try later.Taylor Gonzales LPN * Telephone Encounter - Taylor Gonzales LPN - 11/29/2021 9:07 AM EDT ----- Message from Franc Carreon MD sent at 11/29/2021 7:55 AM EDT ----- Negative COVID and influenza. documented in this encounterAkron [facility]10-19-2022 History of Present illness Narrative* Anju Garcia APRN.[employer] - 11/28/2021 12:04 PM EDT CC: Patient presents with: Chest Congestion: cough, sore throat, headache, ear pain x 5 days HPI: David Aldrich is a 61 year old female who presents to the office with complaint of head congestion, cough, nonproductive, sore throat, sinus symptoms, and ear symptoms for a few days. Symptoms are worsening Associated symptoms includes facial pain/pressure. Denies nausea, vomiting , and diarrhea. Treatments tried include nothing so far. with no relief of symptoms. Sick contacts: unknown. History of asthma, frequent episodes of bronchitis, chronic bronchitis, bronchiectasis or COPD: No Smoker: No Seasonal/environmental allergies: No The ROS is otherwise negative. The patient's pmh, medications, allergies, and past visits are reviewed. PHYSICAL EXAM: BP 136/72 Pulse 88 Temp 37 C (98.6 F) Resp 18 Wt 72.1 kg (159 lb) LMP 01/08/2010 SpO2 95% BMI 30.04 kg/m General appearance: alert, cooperative, pleasant, in no acute distress Head: Normocephalic Eyes: EOM's intact, conjunctiva pink and moist, no icterus, sclera white, non-injected Ears: Right ear: External ear/canal- Normal, TM - clear with good landmarks. Left ear: External ear/canal- Normal, TM - clear with good landmarks Oropharynx:moist without lesions, No erythema, exudates or tonsillar hypertrophy. Heart: Negative. RRR without obvious murmur, gallop, or rubs. No ectopy. Lungs: clear to auscultation, without rales or wheeze, good air exchange PAST MEDICAL HISTORY Diagnosis Date Arrhythmia Bradycardia Diabetes mellitus with peripheral artery disease (HCC) 03/06/2015 H/O percutaneous left heart catheterization May, negative--[facility] History of rectal polypectomy 09/23/201712/2014: hyperplastic polyp Hyperlipidemia LDL goal < 100 01/25/2013 Hypertension Major depressive disorder, recurrent episode, unspecified Non-alcoholic fatty liver disease 10/13/2014 Other and unspecified hyperlipidemia Other chronic nonalcoholic liver disease 01/16 fatty liver disease Peripheral arterial disease (HCC) 03/06/2015 Recurrent major depressive disorder, in full remission (HCC) 03/10/2017 Snoring Type 2 diabetes mellitus with stage 3 chronic kidney disease, without long-term current use of insulin (HCC) 05/11/2016 PAST SURGICAL HISTORY Procedure Laterality Date APPENDECTOMY 1971 CAROTID ENDARTERECTOMY 06/16/2012 Right carotid COLONOSCOPY 12/12/14 Repeat 2018 ALLERGIES Zocor [Simvastatin] MEDICATIONS thiothixene (NAVANE) 1 mg capsule Take 2 capsules by mouth twice daily. NIFEdipine XL (ADALAT CC) 30 mg 24 hr tablet take 1 tablet by mouth once daily cyclobenzaprine (FLEXERIL) 5 mg tablet Take 1 tablet by mouth three times daily as needed. zolpidem (AMBIEN) 10 mg take 1 tablet by mouth at bedtime metFORMIN (GLUCOPHAGE) 500 mg tablet take 1 tablet by mouth once daily with dinner lisinopril (ZESTRIL, PRINIVIL) 5 mg tablet take 1 tablet by mouth once daily imipramine HCl (TOFRANIL) 50 mg tablet take 3 tablets by mouth at bedtime albuterol HFA (VENTOLIN HFA) 90 mcg/actuation inhaler Inhale 2 Puffs as instructed every 4 hours asneeded for wheezing/shortness of breath. blood sugar diagnostic (BLOOD GLUCOSE TEST) test strip Test blood sugar(s) 1 times daily. Dx: Type 2 DM - Controlled E11.9 Insulin: No Lancets lancets Test blood sugar(s) 1 times daily. Dx: Type 2 DM - Controlled E11.9 Insulin: No atorvastatin (LIPITOR) 20 mg tablet take 1 tablet by mouth once daily ondansetron orally disintegrating (ZOFRAN ODT) 4 mg disintegrating tablet Take 1 tablet by mouth every 8 hours as needed for nausea/vomiting. polyethylene glycol 3350 (MIRALAX, GLYCOLAX) 17 gram/dose powder Use as directed for Miralax / Gatorade Bowel Prep Kit Gatorade Sports Drink Use as directed for Miralax / Gatorade Bowel Prep Kit Bisacodyl (DULCOLAX) 5 mg tab Use as directed for Miralax / Gatorade Bowel Prep Kit busPIRone (BUSPAR) 5 mg tablet Take 1 tablet by mouth three times daily as needed. Melatonin 5 mg cap Take 1 capsule by mouth once daily. Aspirin 81 mg tab Take 1 tablet by mouth once daily. Take with food. [START ON 12/01/2021] amoxicillin-clavulanic acid (AUGMENTIN) 875-125 mg per tablet Take 1 tablet by mouth twice daily for 5 days. predniSONE (DELTASONE) 20 mg tablet Take 2 tablets by mouth once daily for 5 days. FAMILY HISTORY Problem Relation Age of Onset Heart Mother Diabetes Father other (Parkinson's disease [Other]) Brother Social History Tobacco Use Smoking status: Every Day Packs/day: 1.00 Years: 25.00 Pack years: 25.00 Types: Cigarettes Smokeless tobacco: Never Vaping Use Vaping Use: Never used Substance Use Topics Alcohol use: Not Currently Comment: quit 04/18 Drug use: No ASSESSMENT/PLAN: 1. Acute cough - ICD9: 786.2, ICD10: R05.1 (primary diagnosis) - COVID WITH FLUA+B, ROUTINE 2. At increased risk of exposure to COVID-19 virus - ICD9: V15.89, ICD10: Z91.89 - COVID WITH FLUA+B, ROUTINE Prednisone daily for 5 days. Delayed prescribing Augmentin twice a day for 5 days. Prescription instructions reviewed with patient as applicable. Potential red flag symptoms discussed with the patient. Reviewed appropriate action plan to take if red flag symptoms occur. Patient agreeable to treatment plan. Anju Garcia APRN.[employer] documented in this encounterAkron [facility]10-17-2022 Miscellaneous Notes* Telephone Encounter - Brianna Busch LPN - 11/26/2021 9:10 AM EDT Last OV: 08/24/21 - Next scheduled appt: 11/26/21 Patient has been identified by name and date of : Yes Requested Prescriptions Pending Prescriptions Disp Refills thiothixene (NAVANE) 1 mg capsule 120 capsule 11 Sig: Take 2 capsules by mouth twice daily. RX INSTRUCTIONS: Pharmacy initiated this request. No need to notify patient. Brianna Busch LPN documented in this encounterAkron [facility]10-03-2022 Miscellaneous Notes* Telephone Encounter - Vannessa Peterson Ma - 11/12/2021 1:35 PM EDT Last office visit: 08/24/21 F/u scheduled: 11/26/21 Vannessa Peterson Ma documented in this encounterAkron [facility]09-21-2022 Miscellaneous Notes* Telephone Encounter - Kell Roy APRN.CNP - 10/31/2021 7:15 PM EDT The following approved medication requests have been transmitted electronically. Requested Prescriptions Pending Prescriptions Disp Refills cyclobenzaprine (FLEXERIL) 5 mg tablet 90 tablet 1 Sig: Take 1 tablet by mouth three times daily as needed. Kell Roy APRN.CNP * Telephone Encounter - Vy Neal Pss - 10/31/2021 10:13 AM EDT [facility] Patient has been identified by name and date of : Yes Patient aware RX will be sent to pharmacy. No need to notify patient. Patient phones for refill(s): Requested Prescriptions Pending Prescriptions Disp Refills cyclobenzaprine (FLEXERIL) 5 mg tablet 45 tablet 1 Sig: Take 1 tablet by mouth three times daily as needed. Date of last office visit : 08/24/2021 Labs-01/25/21 Date of next office visit : 11/26/2021 Last 2 Encounter Wt Readings: Date: Wt: 10/18/2021 71.4 kg (157 lb 6.4 oz) 08/29/2021 69.6 kg (153 lb 6.4 oz) Please advise. Vy Neal Pss documented in this encounterAkron [facility]08-31-2022 Miscellaneous Notes* Telephone Encounter - Radha Kent LPN - 10/10/2021 9:56 AM EDT Patient phones requesting refills as follows: Requested Prescriptions Pending Prescriptions Disp Refills metFORMIN (GLUCOPHAGE) 500 mg tablet [Pharmacy Med Name: METFORMIN HCL 500 MG TABLET] 30 tablet 11 Sig: take 1 tablet by mouth once daily with dinner lisinopril (ZESTRIL, PRINIVIL) 5 mg tablet [Pharmacy Med Name: LISINOPRIL 5 MG TABLET] 30 tablet 11 Sig: take 1 tablet by mouth once daily GIN-08/24/21 Labs-01/25/21 NOV-11/26/21 meds filled 09/28/20 Please review and advise. Radha Kent LPN documented in this encounterAkron [facility]08-15-2022 Miscellaneous Notes* Telephone Encounter - Estrella Frazier - 09/24/2021 5:41 PM EDT Patient has been identified by name and date of : Yes Last office visit in this department: 08/24/2021 Follow up 11/26/2021 RX INSTRUCTIONS: Patient aware RX will be sent to pharmacy. No need to notify patient. Patient phones requesting refills as follows: Requested Prescriptions Pending Prescriptions Disp Refills cyclobenzaprine (FLEXERIL) 5 mg tablet 45 tablet 1 Sig: Take 1 tablet by mouth three times daily as needed. Please review and advise. Estrella Frazier documented in this encounterAkron [facility]08-11-2022 Miscellaneous Notes* Telephone Encounter - Kell Roy APRN.CNP - 09/20/2021 12:12 PM EDT The following approved medication requests have been transmitted electronically. Requested Prescriptions Pending Prescriptions Disp Refills zolpidem (AMBIEN) 10 mg 30 tablet 0 Sig: Take 1 tablet by mouth daily at bedtime for 30 days. Kell Roy APRN.CNP PDMP website checked and validated. All prescriptions have been APPROPRIATELY filled. No suspiciousactivity was identified. 09/20/2021 by Kell Roy APRN.CNP * Telephone Encounter - Estrella Frazier - 09/19/2021 7:18 PM EDT Patient has been identified by name and date of : Yes RX INSTRUCTIONS: Patient aware RX will be sent to pharmacy. No need to notify patient. Next appt 11/26/2021 Patient phones requesting refills as follows: Requested Prescriptions Pending Prescriptions Disp Refills zolpidem (AMBIEN) 10 mg 30 tablet 0 Sig: Take 1 tablet by mouth daily at bedtime for 30 days. GIN-08/24/21 Labs-08/24/21 NOV-11/26/21 med filled 08/25/21 ends 09/24/21 Please review and advise. Estrella Bartholiverkleber documented in this encounterAkron [facility]07-22-2022 Miscellaneous Notes* Telephone Encounter - Dipesh Borjas Ma - 08/31/2021 8:15 AM EDT Patient can not do virtual appointment and doesn't feel necessary. Patient feels fine just has somecongestion. Aware to do normal protocol rest, pushing fluids, anti fever medication prn. Patient aware if chest pain or SOB needs to go to ER Dipesh Borjas Ma * Telephone Encounter - Lulu Swanson APRN.CNP - 08/31/2021 7:51 AM EDT Please check on patient. Will need follow-up today if going to be evaluated for anti-virals. * Telephone Encounter - Jennifer Renae PA-C - 08/30/2021 8:47 AM EDT I called and spoke with patient regarding positive COVID-19. She is on day 4 of symptoms. She was interested in antiviral medication so I will forward this to her PCP. She is not having severe symptoms right now. Discussed red flags to be seen in the ER and criteria to return to work. All questionsanswered. Patient agreeable. documented in this encounterAkron Children'[facility]07-20-2022 History of Present illness Narrative* Franc Carreon MD - 08/29/2021 8:44 AM EDT Patient presents with: Headache: body aches, runny nose x 3 days HPI: Feeling headache for 3 days. There were cases of COVID at her work last week. Positive symptoms: Cough, Nasal Congestion, Rhinorrhea, Body Aches, Headache, Shortness of breath, Chills, Negative symptoms: Chest pain, Fever, Nausea, Vomiting, Diarrhea, dizziness, vision change, numbness, weakness, OTC: Ibuprofen Had Xyleme COVID-19 vaccine June 2020. Smokes tobacco. No history of migraine. PAST MEDICAL HISTORY Diagnosis Date Arrhythmia Bradycardia Diabetes mellitus with peripheral artery disease (HCC) 03/06/2015 H/O percutaneous left heart catheterization May, negative--[facility] History of rectal polypectomy 09/23/201712/2014: hyperplastic polyp Hyperlipidemia LDL goal < 100 01/25/2013 Hypertension Major depressive disorder, recurrent episode, unspecified Non-alcoholic fatty liver disease 10/13/2014 Other and unspecified hyperlipidemia Other chronic nonalcoholic liver disease 01/16 fatty liver disease Peripheral arterial disease (HCC) 03/06/2015 Recurrent major depressive disorder, in full remission (HCC) 03/10/2017 Snoring Type 2 diabetes mellitus with stage 3 chronic kidney disease, without long-term current use of insulin (HCC) 05/11/2016 MEDICATIONS: Current Outpatient Medications Medication Sig zolpidem (AMBIEN) 10 mg Take 1 tablet by mouth daily at bedtime for 30 days. Do not start before August 25, 2021. blood sugar diagnostic (BLOOD GLUCOSE TEST) test strip Test blood sugar(s) 1 times daily. Dx: Type 2 DM - Controlled E11.9 Insulin: No Lancets lancets Test blood sugar(s) 1 times daily. Dx: Type 2 DM - Controlled E11.9 Insulin: No cyclobenzaprine (FLEXERIL) 5 mg tablet Take 1 tablet by mouth three times daily as needed. atorvastatin (LIPITOR) 20 mg tablet take 1 tablet by mouth once daily imipramine HCl (TOFRANIL) 50 mg tablet take 3 tablets by mouth at bedtime albuterol HFA (VENTOLIN HFA) 90 mcg/actuation inhaler Inhale 2 Puffs as instructed every 4 hours asneeded for wheezing/shortness of breath. thiothixene (NAVANE) 1 mg capsule Take 2 capsules by mouth twice daily. ondansetron orally disintegrating (ZOFRAN ODT) 4 mg disintegrating tablet Take 1 tablet by mouth every 8 hours as needed for nausea/vomiting. NIFEdipine XL (ADALAT CC) 30 mg 24 hr tablet Take 1 tablet by mouth once daily. polyethylene glycol 3350 (MIRALAX, GLYCOLAX) 17 gram/dose powder Use as directed for Miralax / Gatorade Bowel Prep Kit Gatorade Sports Drink Use as directed for Miralax / Gatorade Bowel Prep Kit Bisacodyl (DULCOLAX) 5 mg tab Use as directed for Miralax / Gatorade Bowel Prep Kit metFORMIN (GLUCOPHAGE) 500 mg tablet Take 1 tablet by mouth daily with dinner. lisinopril (ZESTRIL, PRINIVIL) 5 mg tablet Take 1 tablet by mouth once daily. busPIRone (BUSPAR) 5 mg tablet Take 1 tablet by mouth three times daily as needed. Melatonin 5 mg cap Take 1 capsule by mouth once daily. Aspirin 81 mg tab Take 1 tablet by mouth once daily. Take with food. Current Facility-Administered Medications Medication Dose Route Frequency perflutren lipid microspheres 1.3 mL in NaCl (PF) 0.9% 10 mL injection (DEFINITY) INTRAVENOUS DIRECTED PRN sodium chloride 0.9 % (flush) 10 mL (BD POSIFLUSH) 10 mL INTRAVENOUS DIRECTED PRN ALLERGIES: ALLERGIES Allergen Reactions Zocor [Simvastatin] Other: See Comments myalgia VITALS: BP 112/90 Pulse 95 Temp 37.1 C (98.8 F) Resp 21 Wt 69.6 kg (153 lb 6.4 oz) LMP 01/08/2010 SpO2 98% BMI 28.98 kg/m PHYSICAL EXAM: GEN: mildly ill appearing HEENT: PERRL, EOMI, conjunctiva clear Ears: canals clear. TMs without erythema, bulge, or effusion Sinuses: non-tender frontal sinus, non-tender maxillary sinuses Throat: moist mucous membranes, no erythema, no exudate Neck: supple, no thyromegaly, no lymphadenopathy HEART: regular rate and rhythm, no murmurs LUNGS: clear to auscultation, no wheezes or crackles, no increased WOB ASSESSMENT/PLAN: 1. Headache, unspecified headache type - ICD9: 784.0, ICD10: R51.9 (primary diagnosis) 2. Exposure to confirmed case of COVID-19 - ICD9: V01.79, ICD10: Z20.822 Headache interfered with sleep, but is somewhat improved today. - suspect viral illness, differential includes COVID-19. - Discussed supportive care treatment with home isolation, rest, cold medicine, and analgesia. - Red flags to seek further treatment include chest pain, shortness of breath, and lethargy; in theER if severe. - 2019 CORONAVIRUS 3. SOB (shortness of breath) - ICD9: 786.05, ICD10: R06.02 Refill - ALBUTEROL SULFATE HFA 90 MCG/ACTUATION AEROSOL INHALER Franc Carreon MD documented in this encounterAkron Children'[facility]07-15-2022 Instructions* Patient Instructions* Lulu Swanson APRN.CNP - 08/24/2021 1:40 PM EDT 1. Return for fasting labs. 2. Return for pap (Friday night) -- see below. 3. Recheck in 3 months. documented in this encounterAkron [facility]07-15-2022 History of Present illness Narrative* Lulu Swanson APRN.CNP - 08/24/2021 1:14 PM EDT This is a 60 year old female who presents today with: No chief complaint on file. HISTORY OF PRESENT ILLNESS: David Aldrich is a 60 year old female. No chief complaint on file. Pt presents today to establish care and medication refill. Insomnia: On Ambien. She has been on this medication X 2 years. Refers that it has helped. Refers that if she doesn't take it, she is up all night. Refers in the melatonin in the past, which hasn't been as effective. DM: Reports overall feeling well. Medication side effects: No. Home sugar checks: no Hypoglycemic spells: No. Watching diet: Not too good. Unexpected weight loss: No. Polyuria, polydipsia: I'm thirsty a lot. Vision Changes: Refers that she has cataracts. Foot lesions or numbness or pain: No. HYPERLIPIDEMIA: Patient is taking medications: Yes. Patient is watching diet: No. Patient denies myalgias: Yes Patient denies gi upset: Yes HTN: Patient is compliant with meds Yes Monitors bp at home: No. Denies side effects: No. Chest pain: No. Dyspnea: A little with exertion (ie carrying groceries up stairs). Edema: No. Palpitations: No. Syncope: No. Headache: No. Dizziness: No. Mood: Depression. Controlled w/ current medication regimen. PAST MEDICAL HISTORY: PAST MEDICAL HISTORY Diagnosis Date Arrhythmia Bradycardia Diabetes mellitus with peripheral artery disease (HCC) 03/06/2015 H/O percutaneous left heart catheterization May, negative--[facility] History of rectal polypectomy 09/23/201712/2014: hyperplastic polyp Hyperlipidemia LDL goal < 100 01/25/2013 Hypertension Major depressive disorder, recurrent episode, unspecified Non-alcoholic fatty liver disease 10/13/2014 Other and unspecified hyperlipidemia Other chronic nonalcoholic liver disease 01/16 fatty liver disease Peripheral arterial disease (HCC) 03/06/2015 Recurrent major depressive disorder, in full remission (HCC) 03/10/2017 Snoring Type 2 diabetes mellitus with stage 3 chronic kidney disease, without long-term current use of insulin (HCC) 05/11/2016 PAST SURGICAL HISTORY Procedure Laterality Date APPENDECTOMY 1971 CAROTID ENDARTERECTOMY 06/16/2012 Right carotid COLONOSCOPY 12/12/14 Repeat 2018 ALLERGIES Zocor [Simvastatin] MEDICATIONS Current Outpatient Medications Medication Sig [START ON 08/30/2021] zolpidem (AMBIEN) 10 mg take 1 tablet by mouth daily at bedtime cyclobenzaprine (FLEXERIL) 5 mg tablet Take 1 tablet by mouth three times daily as needed. atorvastatin (LIPITOR) 20 mg tablet take 1 tablet by mouth once daily imipramine HCl (TOFRANIL) 50 mg tablet take 3 tablets by mouth at bedtime albuterol HFA (VENTOLIN HFA) 90 mcg/actuation inhaler Inhale 2 Puffs as instructed every 4 hours asneeded for wheezing/shortness of breath. thiothixene (NAVANE) 1 mg capsule Take 2 capsules by mouth twice daily. ondansetron orally disintegrating (ZOFRAN ODT) 4 mg disintegrating tablet Take 1 tablet by mouth every 8 hours as needed for nausea/vomiting. NIFEdipine XL (ADALAT CC) 30 mg 24 hr tablet Take 1 tablet by mouth once daily. metFORMIN (GLUCOPHAGE) 500 mg tablet Take 1 tablet by mouth daily with dinner. lisinopril (ZESTRIL, PRINIVIL) 5 mg tablet Take 1 tablet by mouth once daily. busPIRone (BUSPAR) 5 mg tablet Take 1 tablet by mouth three times daily as needed. Melatonin 5 mg cap Take 1 capsule by mouth once daily. blood sugar diagnostic (FREESTYLE LITE STRIPS) test strip Use as instructed--Test blood sugars oncedaily. DX: 250.00 Aspirin 81 mg tab Take 1 tablet by mouth once daily. Take with food. lancets(FREESTYLE LANCETS) test blood sugar twice a day nicotine (NICODERM) 21 mg/24 hr Apply 1 Patch as directed every 24 hours. Apply a patch daily for 6weeks, then start 14mg patches nicotine (NICODERM) 14 mg/24 hr Apply 1 Patch as directed every 24 hours. No smoking with patch. Apply a patch daily for 2 weeks, then start 7mg patches nicotine (NICODERM) 7 mg/24 hr Apply 1 Patch as directed every 24 hours. Apply a patch daily for 2 weeks polyethylene glycol 3350 (MIRALAX, GLYCOLAX) 17 gram/dose powder Use as directed for Miralax / Gatorade Bowel Prep Kit Gatorade Sports Drink Use as directed for Miralax / Gatorade Bowel Prep Kit Bisacodyl (DULCOLAX) 5 mg tab Use as directed for Miralax / Gatorade Bowel Prep Kit Current Facility-Administered Medications Medication Dose Route Frequency perflutren lipid microspheres 1.3 mL in NaCl (PF) 0.9% 10 mL injection (DEFINITY) INTRAVENOUS DIRECTED PRN sodium chloride 0.9 % (flush) 10 mL (BD POSIFLUSH) 10 mL INTRAVENOUS DIRECTED PRN FAMILY HISTORY Problem Relation Age of Onset Heart Mother Diabetes Father other (Parkinson's disease [Other]) Brother Social History Tobacco Use Smoking status: Current Every Day Smoker Packs/day: 1.00 Years: 25.00 Pack years: 25.00 Types: Cigarettes Smokeless tobacco: Never Used Vaping Use Vaping Use: Never used Substance Use Topics Alcohol use: Not Currently Comment: quit 04/18 Drug use: No EXAM: BP 118/84 Pulse 83 Resp 18 Wt 70.3 kg (155 lb) LMP 01/08/2010 SpO2 95% BMI 29.29 kg/m PHYSICAL EXAM: General Appearance: Well appearing, alert, in no acute distress, well-hydrated, well nourished.. Skin: Skin color, texture, turgor normal, no suspicious rashes or lesions. Head: Normocephalic, no masses, lesions, tenderness or abnormalities. Eyes: Anicteric sclera. Pupils are equally round and reactive to light. Extraocular movements are intact. . Neck: Supple, no adenopathy; thyroid symmetric, normal size, no bruits. Lungs: Lungs clear to auscultation. No wheezing, rhonchi, rales.. Heart: RRR without murmur, gallop, or rubs. No ectopy. Abdomen: Abdomen soft, non-tender. Bowel sounds normal. No masses, organomegaly. Extremities: No deformities, edema, skin discoloration, clubbing or cyanosis. Good capillary refill. . Neurologic: Gait normal. ASSESSMENT/PLAN: 1. Diabetes mellitus with peripheral artery disease (HCC) - ICD9: 250.70, 443.81, ICD10: E11.51 (primary diagnosis) Controlled. - Continue current medications - BLOOD-GLUCOSE METER KIT - BLOOD GLUCOSE TEST STRIPS - LANCETS - HGB A1C - ALBUMIN/CREAT RATIO RND UR 2. Chronic insomnia - ICD9: 780.52, ICD10: F51.04 Has been stable and controlled. Up to date w/ tox screen. - ZOLPIDEM 10 MG TABLET 3. Medication monitoring encounter - ICD9: V58.83, ICD10: Z51.81 - ZOLPIDEM 10 MG TABLET 4. Abnormal TSH - ICD9: 790.6, ICD10: R79.89 - TSH BLD - T4 FREE/FREE THYROX 5. Hyperlipidemia, unspecified hyperlipidemia type - ICD9: 272.4, ICD10: E78.5 - to be determined upon return of lab results - Continue current medication. - LIPID PANEL BASIC 6. Recurrent major depressive disorder, in full remission (HCC) - ICD9: 296.36, ICD10: F33.42 Stable on current medication regimen. 7. Hypertension, essential - ICD9: 401.9, ICD10: I10 - good control - Continue current medication(s) - Recommended regular aerobic exercise. - Recommend home blood pressure monitoring, to bring results in on next visit - Goal of BP <130/80 - CBC + DIFF - COMP METABOLIC PANEL Discussed treatment plan and patient voices understanding. Patient's questions answered appropriately. Medications and potential side effects were discussed and patient voices understanding. Return to the office as scheduled or as needed for worsening/no improvement. Lulu Swanson APRN.CANDACE The patient indicates understanding of these issues and agrees with the plan. documented in this encounter[facility] Miscellaneous Notes* Telephone Encounter - Helen Segovia PA-C - 08/24/2021 9:53 AM EDT Seeing Lulu tomorrow. Please let her know maximum dosage has changed to 5mg for women. Can discuss tomorrow. The following approved medication requests have been transmitted electronically. Signed Prescriptions Disp Refills zolpidem (AMBIEN) 10 mg 30 tablet 0 Sig: take 1 tablet by mouth daily at bedtime RICK Class: C-IV DAYRON: No Authorizing Provider: Helen SEGOVIA PA-C * Telephone Encounter - Helen Lema RN - 08/23/2021 2:03 PM EDT Patient checking on refill request. States she is scheduled with Wool Shearer tomorrow to [facility] but wants to know if medication can be filled today. Advised provider unable to prescribe unless patient is seen. Patient agreeable. * Telephone Encounter - Paco Cortez MD - 08/22/2021 1:54 PM EDT Needs to schedule transfer of care visit from Mina Kapadia. * Telephone Encounter - Dipesh Borjas Ma - 08/22/2021 10:45 AM EDT Patient last visit 06/18/21 Follow up appointment scheduled none- will need contacted to schedule transfer care appointment. Routing to schedulers Dipeshlindsay Borjas Ma documented in this encounterAkron [facility]06[facility]22 Miscellaneous Notes* Telephone Encounter - Stephanie Kapadia APRN.DYAN MARIA - 07/25/2021 4:32 PM EDT PDMP website checked and validated 07/25/2021 All prescriptions have been APPROPRIATELY filled. No suspicious activity was identified. 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 The following approved medication requests have been transmitted electronically. Signed Prescriptions Disp Refills zolpidem (AMBIEN) 10 mg 30 tablet 0 Sig: take 1 tablet by mouth daily at bedtime RICK Class: C-IV DAYRON: No Authorizing Provider: STEPHANIE KAPADIA APRN.CNP, DNP * Telephone Encounter - Lavon Terry LPN - 07/25/2021 10:13 AM EDT Patient phones requesting refills as follows: Pending Prescriptions Disp Refills ZOLPIDEM 10 MG TABLET 30 tablet Sig: take 1 tablet by mouth daily at bedtime RICK Class: C-IV DAYRON: Yes GIN 07/11/21 NOV no upcoming appt Last rx written 06/29/21 #30 with 0 refills Please review and advise. Lavon Terry LPN documented in this encounterAk[facility]06-01-2022 Instructions* Patient Instructions* Lulu Swanson APRN.CNP - 07/11/2021 10:30 AM EDT Stomach Flu (Viral Gastroenteritis) What is stomach flu? Stomach flu is a viral infection that affects the stomach and small intestine. It is also called viral gastroenteritis. The illness is usually brief, lasting 1 to 3 days. How does it occur? Many different viruses can cause gastroenteritis, including rotaviruses, adenoviruses, and the Lockwood virus. Gastroenteritis is caused by swallowing one of these viruses. The body fluids of infectedpeople contain the virus, sometimes even before their symptoms begin. The virus can be spread by direct contact with an infected person (for example, kissing or shaking hands) or by sharing food, drink, or eating utensils. The virus enters the stomach and intestine and inflames the lining of these organs. As a result, the stomach and intestine are temporarily unable to perform their usual functions. The virus can also cause food to move more rapidly through your gastrointestinal (GI) tract. Some bacteria, parasites, medicines, or other medical conditions can cause infections that have symptoms similar to those of stomach flu. If your symptoms are unusually severe or last longer than a few days, your health care provider can determine if the diarrhea is caused by a virus or by something else. What are the symptoms? When you have stomach flu, you may have one or more of the following symptoms: nausea vomiting stomach cramps diarrhea mild fever fatigue chills loss of appetite muscle aches. The illness may develop over a period of hours, or it may suddenly start with stomach cramps, vomiting, or diarrhea. How is it diagnosed? Your health care provider will review your symptoms. He or she may examine you and order lab tests to rule out more serious illnesses, such as appendicitis, and to detect complications, such as dehydration. How is it treated? The most important thing to do is to rest the stomach and intestines. You can do this by first eating nothing solid and drinking only clear liquids. A little later you can eat soft bland foods that are easy to digest. If you have been vomiting a lot, it is best to have only small, frequent sips of liquids. Drinking too much at once, even an ounce or two, may cause more vomiting. Your choice of liquids is important. If water is the only liquid you can drink without vomiting, that is okay. However, if you have been vomiting often for a long time, you must replace the minerals,sodium and potassium, that are lost when you vomit. Ask your health care provider what sport drinksor other commercial electrolyte replacement drinks could help you replace these minerals. Other clear liquids you can drink are weak tea and apple juice. You may also drink soft drinks without caffeine (such as 7-UP) after letting them go flat (lose their carbonation). Chilling the liquids may help you keep them down. Avoid liquids that are acidic (such as orange juice) or caffeinated (such as coffee) or have a lot of carbonation. Do not drink milk until you no longer have diarrhea. You may start eating soft bland foods when you have not vomited for several hours and are able to drink clear liquids without further upset. Soda crackers, toast, plain noodles, gelatin, eggs, applesauce, and bananas are good first choices. Avoid foods that are acidic, spicy, fatty, or fibrous (such as meats, coarse grains, vegetables). Also avoid dairy products. You may start eating these foods again in 3 days or so, when all signs of illness have passed. Sometimes treatment includes prescription medicine to prevent nausea and vomiting or diarrhea. Nonprescription medicine is available for the treatment of diarrhea and can be very effective. If you use it, make sure you use only the dose recommended on the package. If you have chronic health problems, always check with your health care provider before you use any medicine for diarrhea. If you have been vomiting for more than a day or have had diarrhea for over 3 days, call your health care provider. You may need to have an exam to rule out more serious problems and to check for dehydration. You may also need to have lab tests to determine whether bacteria or germs such as giardiaare causing your illness. Dehydration is a potentially serious complication of stomach flu. It can occur if your body loses too much fluid because you keep vomiting or having diarrhea. If you are severely dehydrated, you may need to be given fluids intravenously (IV). In children and older adults, dehydration can quickly become life threatening. How long do the effects last? Stomach flu rarely lasts longer than 1 to 3 days. However, it may be 1 to 2 weeks before your bowelhabits return completely to normal. How can I take care of myself? Rest your stomach and intestines by following the guidelines above, but make sure you prevent dehydration by drinking enough liquids. Drink just small amounts often during the vomiting phase of your illness. Do not take aspirin, ibuprofen, or other NSAIDS without checking first with your health care provider. Call your health care provider if: Your symptoms are getting worse. You continue to have severe symptoms for more than 2 or 3 days, or you are just not getting better after a few days. You develop symptoms that are not usually caused by stomach flu, such as blood in your vomit, bloody diarrhea, or severe abdominal pain. What can I do to help prevent stomach flu? The single, most helpful way to prevent the spread of stomach flu is frequent, thorough hand washing. Also, avoid contact with the body fluids of an infected person, including saliva. Don't share food with someone who has stomach flu. Published by [employer]. This content is reviewed periodically and is subject to change as new health information becomes available. The information is intended to inform and educate and is not a replacement for medical evaluation, advice, diagnosis or treatment by a healthcare professional. Developed by [employer]. Copyright 2005 [employer] and/or one of its subsidiaries. All Rights Reserved. Special Instructions: Copyright [employer] 2006 [employer] Copyright 2006 [employer] All rights reserved. [email or web address] documented in this encounterAkron [facility]06-01-2022 History of Present illness Narrative* Lulu Swanson APRN.CANDACE - 07/11/2021 10:21 AM EDT This is a 60 year old female who presents today with: Patient presents with: Diarrhea: started last evening; vomiting on Friday, but no more since; + stomach cramping, intermittent; no blood in stools HISTORY OF PRESENT ILLNESS: David Aldrich is a 60 year old female. Patient presents with: Diarrhea: started last evening; vomiting on Friday, but no more since; + stomach cramping, intermittent; no blood in stools Pt presents today w/ GI symptoms. Refers Friday night she was vomiting. Then yesterday, when she came home from work, she had the diarrhea. Has had three episodes thus far today. No vomiting since Friday. No fevers/chills. Still has the diarrhea. Refers feels like everything goes right through her. Gets cramping. Refers watery with some stool in it. Refers stools are dark. No bright blood. No one around her ill. No recent antibiotics. She is overdue for colonoscopy. PAST MEDICAL HISTORY: PAST MEDICAL HISTORY Diagnosis Date Arrhythmia Bradycardia Diabetes mellitus with peripheral artery disease (HCC) 03/06/2015 H/O percutaneous left heart catheterization May, negative--[facility] History of rectal polypectomy 09/23/201712/2014: hyperplastic polyp Hyperlipidemia LDL goal < 100 01/25/2013 Hypertension Major depressive disorder, recurrent episode, unspecified Non-alcoholic fatty liver disease 10/13/2014 Other and unspecified hyperlipidemia Other chronic nonalcoholic liver disease 01/16 fatty liver disease Peripheral arterial disease (HCC) 03/06/2015 Recurrent major depressive disorder, in full remission (HCC) 03/10/2017 Snoring Type 2 diabetes mellitus with stage 3 chronic kidney disease, without long-term current use of insulin (HCC) 05/11/2016 PAST SURGICAL HISTORY Procedure Laterality Date APPENDECTOMY 1971 CAROTID ENDARTERECTOMY 06/16/2012 Right carotid COLONOSCOPY 12/12/14 Repeat 2018 ALLERGIES Zocor [Simvastatin] MEDICATIONS Current Outpatient Medications Medication Sig cyclobenzaprine (FLEXERIL) 5 mg tablet Take 1 tablet by mouth three times daily as needed. atorvastatin (LIPITOR) 20 mg tablet take 1 tablet by mouth once daily zolpidem (AMBIEN) 10 mg Take 1 tablet by mouth daily at bedtime for 30 days. Do not start before June 29, 2021. imipramine HCl (TOFRANIL) 50 mg tablet take 3 tablets by mouth at bedtime albuterol HFA (VENTOLIN HFA) 90 mcg/actuation inhaler Inhale 2 Puffs as instructed every 4 hours asneeded for wheezing/shortness of breath. thiothixene (NAVANE) 1 mg capsule Take 2 capsules by mouth twice daily. ondansetron orally disintegrating (ZOFRAN ODT) 4 mg disintegrating tablet Take 1 tablet by mouth every 8 hours as needed for nausea/vomiting. NIFEdipine XL (ADALAT CC) 30 mg 24 hr tablet Take 1 tablet by mouth once daily. metFORMIN (GLUCOPHAGE) 500 mg tablet Take 1 tablet by mouth daily with dinner. lisinopril (ZESTRIL, PRINIVIL) 5 mg tablet Take 1 tablet by mouth once daily. busPIRone (BUSPAR) 5 mg tablet Take 1 tablet by mouth three times daily as needed. Melatonin 5 mg cap Take 1 capsule by mouth once daily. blood sugar diagnostic (FREESTYLE LITE STRIPS) test strip Use as instructed--Test blood sugars oncedaily. DX: 250.00 Aspirin 81 mg tab Take 1 tablet by mouth once daily. Take with food. lancets(FREESTYLE LANCETS) test blood sugar twice a day nicotine (NICODERM) 21 mg/24 hr Apply 1 Patch as directed every 24 hours. Apply a patch daily for 6weeks, then start 14mg patches nicotine (NICODERM) 14 mg/24 hr Apply 1 Patch as directed every 24 hours. No smoking with patch. Apply a patch daily for 2 weeks, then start 7mg patches nicotine (NICODERM) 7 mg/24 hr Apply 1 Patch as directed every 24 hours. Apply a patch daily for 2 weeks (Patient not taking: Reported on 03/08/2021 ) polyethylene glycol 3350 (MIRALAX, GLYCOLAX) 17 gram/dose powder Use as directed for Miralax / Gatorade Bowel Prep Kit Gatorade Sports Drink Use as directed for Miralax / Gatorade Bowel Prep Kit Bisacodyl (DULCOLAX) 5 mg tab Use as directed for Miralax / Gatorade Bowel Prep Kit Current Facility-Administered Medications Medication Dose Route Frequency perflutren lipid microspheres 1.3 mL in NaCl (PF) 0.9% 10 mL injection (DEFINITY) INTRAVENOUS DIRECTED PRN sodium chloride 0.9 % (flush) 10 mL (BD POSIFLUSH) 10 mL INTRAVENOUS DIRECTED PRN FAMILY HISTORY Problem Relation Age of Onset Heart Mother Diabetes Father other (Parkinson's disease [Other]) Brother Social History Tobacco Use Smoking status: Current Every Day Smoker Packs/day: 1.00 Years: 25.00 Pack years: 25.00 Types: Cigarettes Smokeless tobacco: Never Used Vaping Use Vaping Use: Never used Substance Use Topics Alcohol use: Not Currently Comment: quit 04/18 Drug use: No EXAM: BP 122/90 Pulse 86 Resp 18 Wt 69.9 kg (154 lb) LMP 01/08/2010 SpO2 95% BMI 29.10 kg/m PHYSICAL EXAM: General Appearance: Well appearing, alert, in no acute distress, well-hydrated, well nourished.. Skin: Skin color, texture, turgor normal, no suspicious rashes or lesions. Head: Normocephalic, no masses, lesions, tenderness or abnormalities. Eyes: Anicteric sclera. Pupils are equally round and reactive to light. Extraocular movements are intact. . Neck: Supple, no adenopathy; thyroid symmetric, normal size, no bruits. Lungs: Lungs clear to auscultation. No wheezing, rhonchi, rales.. Heart: RRR without murmur, gallop, or rubs. No ectopy. Abdomen: Abdomen soft. Mild generalized tenderness in the upper quads. Bowel sounds normal. No masses, organomegaly. No rebound/guarding. Extremities: No deformities, edema, skin discoloration, clubbing or cyanosis. Good capillary refill. Neurologic: Gait normal. ASSESSMENT/PLAN: 1. Viral gastroenteritis - ICD9: 008.8, ICD10: A08.4 Suspect viral gastroenteritis. She is taking oral fluids and food without problems. Continues with diarrhea. She is encouraged to stay well-hydrated. She is encouraged to maintain a bland diet and advance as tolerated. If diarrhea persists, she can use Imodium gingerly. If anything worsens (fever/chills, inability to tolerate oral fluids, pain, passing blood), she should proceed to the emergency room. Pt is encouraged to schedule her follow-up colonoscopy. Work note provided. Discussed treatment plan and patient voices understanding. Patient's questions answered appropriately. Medications and potential side effects were discussed and patient voices understanding. Return to the office as scheduled or as needed for worsening/no improvement. Lulu Swanson APRN.CNP The patient indicates understanding of these issues and agrees with the plan. documented in this encounterAkron [facility]05-29-2022 Miscellaneous Notes* Telephone Encounter - Daksha Nichols RN - 07/08/2021 11:02 AM EDT Reason for call: Patient calling with request for medication/refill: Patient/caregiver requesting refill of Flexeril be called to [facility] at [phone].. Patient denies any new or worsening symptoms of which a provider is not aware: Yes. Outcome: Informed patient that I would send her request to her PCP. documented in this encounterAkron [facility]05-23-2022 Miscellaneous Notes* Telephone Encounter - Stephanie Kapadia APRN.CNP, DNP - 07/02/2021 4:32 PM EDT The following approved medication requests have been transmitted electronically. Pending Prescriptions Disp Refills ATORVASTATIN 20 MG TABLET 90 tablet 3 Sig: take 1 tablet by mouth once daily DAYRON: Yes Stephanie Kapadia APRN.DAYN MARIA * Telephone Encounter - Keeley Barron LPN - 07/02/2021 3:47 PM EDT Patient has been identified by name and date of : Yes Patient phones for refill(s): Pending Prescriptions Disp Refills ATORVASTATIN 20 MG TABLET 90 tablet 3 Sig: take 1 tablet by mouth once daily DAYRON: Yes Date of last office visit in primary care: 06/18/21 Last 2 Encounter Wt Readings: Date: Wt: 06/18/2021 70.3 kg (155 lb) 04/28/2021 69.6 kg (153 lb 6.4 oz) Previous labs/tests for medication: Cholesterol: HDL Cholesterol (mg/dL) Date Value 04/08/2020 60 LDL Cholesterol (mg/dL) Date Value 04/08/2020 66 ALT (U/L) Date Value 01/25/2021 18 Non HDL Cholesterol, Nonfasting (mg/dL) Date Value 03/30/2019 92 Non HDL Cholesterol (mg/dL) Date Value 04/08/2020 90 Please advise. Thank you. Keeley Barron LPN documented in this encounterAkron [facility]05-18-2022 Miscellaneous Notes* Telephone Encounter - Stephanie Kapadia APRN.CNP, DNP - 06/27/2021 9:25 AM EDT PDMP website checked and validated 06/27/2021 All prescriptions have been APPROPRIATELY filled. No suspicious activity was identified. The following approved medication requests have been transmitted electronically. Pending Prescriptions Disp Refills ZOLPIDEM 10 MG TABLET 30 tablet 0 Sig: Take 1 tablet by mouth daily at bedtime for 30 days. Do not start before June 29, 2021. RICK Class: C-IV DAYRON: No Stephanie Kapadia APRN.CNP, DNP * Telephone Encounter - Angelina Buckley RN - 06/26/2021 7:07 PM EDT Patient has been identified by name and date of : Yes Patient phones for refill(s): Pending Prescriptions Disp Refills ZOLPIDEM 10 MG TABLET 30 tablet 0 Sig: Take 1 tablet by mouth daily at bedtime for 30 days. RICK Class: C-IV DAYRON: No Last 2 Encounter Wt Readings: Date: Wt: 06/18/2021 70.3 kg (155 lb) 04/28/2021 69.6 kg (153 lb 6.4 oz) Previous labs/tests for medication: Not applicable Patient only needs called if problem with refilling medication Please advise. Thank you. Angelina Buckley RN documented in this encounter[facility] History of Present illness Narrative* Matt Díaz, PT - 06/26/2021 3:34 PM EDT Episode Visit Count: 1 Therapist That Will Oversee The Plan Of Care: Matt Díaz Start of Care Date: 06/26/21 Onset Date: 04/26/20 Patient Identified by Name and Date of : Yes REHABILITATION AND SPORTS THERAPY PHYSICAL THERAPY EVALUATION PLAN OF CARE: Assessment: David Aldrich presents with chief complaint of right shoulder pain that interferes with lifting;working;reaching behind back;reaching overhead;use hand with arm at shoulder level;cleaning . She presents with impairments in ADL's, overall function, range of motion and strength. Prognosis for therapy is Fair due to: clinical presentation;chronic nature of impairments;limited tolerance toactivity;occupational demands . She will benefit from skilled therapy services to meet the goals established for this plan of care as noted below. Goals for Episode of Care: created on 06/26/21 through 08/26/21 [place] in home exercise program. Patient will decrease pain rating by 2 points to meet minimal clinical important difference for numeric pain rating scale. Patient will increase active ROM of R shoulder to = L within 5 degrees or 2 spine segments to allowpt to to improve performance of ADLs. Patient will demonstrate increase in R shoulder strength to within 60% of L side during manual dynamometer testing in order to improve function for basic self- care tasks, home management tasks, lightfunctional tasks, moderate to heavy functional tasks, prior functional tasks and work tasks. Perform reaching, lifting, cleaning with decreased report of symptoms/pain in 8- 12 weeks. Planned Interventions, Frequency, and Duration: Current Frequency: 1x/week Duration: 8 weeks Total Number of Visits Planned: 8 Planned Treatment Interventions: Therapeutic exercise (05644);Neuromuscular re- education (58785);Manual therapy (82735);Therapeutic activities (26262);Self- [place] [facility] management (11057);Patient/Family/Caregiver Education;Body Mechanics Training PLAN FOR NEXT VISIT: Deltoid, biceps, rtc strengthening per tolerance Patient demonstrates good understanding of plan of care and treatment. The above goals and plan of care were discussed and agreed upon by patient/family. SUBJECTIVE: David Aldrich is a 60 year old female seen today for R shoulder pain for a few years, worsening onset started ~ April of 2020. 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 Functional Limitations: lifting;working;reaching behind back;reaching overhead;use hand with arm atshoulder level;cleaning Prior Level of Function: Independent without limitations Intake Information: Prescription present Pain: Pain Pain Level: 6 Pain Location: Shoulder - Right Description: Aching Frequency: Intermittent Post Treatment Pain Post Treatment Pain Level: No Change PROMIS Scales T-scores: mean of general population = 50. 5 points is clinically meaningfully difference Percentiles provide an indication of how the patient's score ranks in relation to the general population. Higher percentile rankings indicate better function/quality of life. 50th percentile is the average of the general population and indicates half of respondents had a worse score. T-scores: mean of general population = 50. 5 points is clinically meaningfully difference Percentiles provide an indication of how the patient's score ranks in relation to the general population. Higher percentile rankings indicate better function/quality of life. 50th percentile is the average of the general population and indicates half of respondents had a worse score. OBJECTIVE MEASURES WITH LEVEL OF FUNCTION: UE AROM R Shoulder Flex: 165 Degrees R Shoulder ABduction: 178 Degrees R Shoulder Internal Rotation (Functional): T10 R Shoulder External Rotation (Functional): C6 L Shoulder Flex: 170 Degrees L Shoulder ABduction: 180 Degrees L Shoulder Internal Rotation (Functional): T6 L Shoulder External Rotation (Functional): T4 UE and Cervical Strength Strength Tested: Shoulder Dynamometer Testing Dynamometer Strength R Shoulder Standing Scaption (lbs): 4.4 ft/lbs R Shoulder Standing External Rotation (lbs): 6.2 ft/lbs R Shoulder Standing Internal Rotation (lbs): 14.6 ft/lbs L Shoulder Standing Scaption (lbs): 12.3 ft/lbs L Shoulder Standing External Rotation (lbs): 17 ft/lbs L Shoulder Standing Internal Rotation (lbs): 14.2 ft/lbs R IR:ER Ratio (%) : 235.48 L IR:ER Ratio (%): 83.53 Education: Education Learning/educational needs: Home exercise program;Plan of Care;Changes in Plan of Care TREATMENT: PT Treatment Interventions: Therapeutic Exercise Evaluation Therapeutic Exercise: 1: *YTB ER 2x10 2: *YTB IR 2x10 3: *Full can BW only 2x10 4: *Wax on, wax off on door/wall 2x10 cw/ccw 5: Wall slides- increases pain, ceased Skilled Intervention: Patient was educated in proper exercise technique and purpose for exercises. Skilled judgment was provided in selection of appropriate interventions. Provided written instruction for home exercise program to facilitate proper performance and compliance. Correct performance of therapeutic exercises was facilitated with verbal, visual and tactile cuing. Billing * Evaluation Low Complexity: 1 Unit Therapeutic Exercise Treatment Minutes: 10 Total Treatment Time Minutes (timed/untimed): 30 Matt Arjun, PT documented in this encounterAkron [facility]05-13-2022 Miscellaneous Notes* Telephone Encounter - Stephanie Kapadia APRN.DYAN MARIA - 06/22/2021 12:00 PM EDT The following approved medication requests have been transmitted electronically. Pending Prescriptions Disp Refills IMIPRAMINE 50 MG TABLET 270 tablet 0 Sig: take 3 tablets by mouth at bedtime DAYRON: Yes Stephanie Kapdaia APRN.DYAN MARIA * Telephone Encounter - Rahda Kent LPN - 06/22/2021 10:34 AM EDT Patient phones requesting refills as follows: Pending Prescriptions Disp Refills IMIPRAMINE 50 MG TABLET 270 tablet 0 Sig: take 3 tablets by mouth at bedtime DAYRON: Yes GIN-06/18/21 Labs-01/25/21 NOV-06/27/21 med filled 03/21/21 Please review and advise. Radha Kent LPN documented in this encounterAkron [facility]05-12-2022 Miscellaneous Notes* Telephone Encounter - Lindsay Gustafson LPN - 06/21/2021 9:24 AM EDT Patient returned call and went over results, notes from Stephanie Kapadia PROCESS OPERATOR with understanding. * Telephone Encounter - Jaja Levine Cma - 06/19/2021 9:03 AM EDT Left message for patient to return call to office Jaja Levine Cma * Telephone Encounter - Jaja Levine Cma - 06/19/2021 9:03 AM EDT ----- Message from Stephanie Kapadia APRN.CNP, DNP sent at 06/18/2021 4:50 PM EDT ----- Please inform the patient that their shoulder xray shows: No acute fracture or dislocations. Joint spaces are maintained. Continue with current plan of care. Stephanie Kapadia APRN.CNP, DNP documented in this encounterAkron [facility]05-09-2022 History of Present illness Narrative* Khadijah Baxter RT(R) - 06/18/2021 3:40 PM EDT Radiology Service Progress Note PATIENT NAME: David Aldrich DATE OF SERVICE: June 18, 2021 TIME: 3:32 PM PATIENT IDENTITY VERIFICATION COMPLETED USING TWO (2) IDENTIFIERS: Name and Date of confirmedby patient verbally. FALL SCREENING: Has the patient had 2 falls in the last year or 1 fall with injury or currently using an Ambulatory Assistive Device (Walker, Cane, Wheelchair, Crutches, etc.)? No PATIENT GENDER DATA: Female. status: : No status: NO. PATIENT RELEVANT IMPLANT DATA REVIEWED: Not Applicable RADIOLOGY DEPARTMENT: General X-ray: Exam(s) Completed: Upper Extremity X- Ray(s): Shoulder, AP / TRUE AP right PERIPHERAL IV DATA: Not applicable SIGNED BY: RT Catherine(R) June 18, 2021 3:32 PM documented in this encounterAkron [facility]05-09-2022 Instructions* Patient Instructions* Stephanie Kapadia APRN.CNP, DNP - 06/18/2021 3:21 PM EDT Please contact your medical insurance provider - tell them you are being recommended for right rotator cuff surgery two repair your subscapularis and supraspinatus tendons. Asked them to complete a preauthorization for the surgery. Follow up with PT and Orthopedics. Shoulder x-ray today. Start physical therapy -consult placed Meloxicam and or Flexeril for shoulder pain Rest, ice for comfort Return to the clinic or seek care at [facility] for any worsening signs or symptoms: such as fevers, chills, worsening pain or worsening bruising. For severe symptoms seek care at the closest ER. Plan of care, medicaiton side effects and management reviewed with patient. Healthy Habits: Recommend regular physical activity, nutrition and healthy eating habits. Consume a variety of foods every day focusing on fruits, vegetables and lean meats). Eat foods low in fat, saturated fat and cholesterol. Eat a limited amount of salt and sodium. Drink adequate amounts of water and limit sugary drinks. Exercise portion control in meal selection. Establish a mindset of a wellness approach to health. Thank you for allowing me to provide your care today. I look forward to seeing you again and maintaining your health. Stephanie Kapadia APRN.[employer], DNP Shoulder pain will often improve with simple measures. But it takes time, as the improvement will occur gradually over several weeks, and requires strict avoidance of aggravating activities. Often the shoulder will never become 100% pain-free; a reasonable expectation is improvement to the point itdoes not substantially interfere with the normal daily activities or sleep. If your shoulder pain is worsening and interfering more with your day-to-day life, f/u with your PCM as you may need further evaluation, treatment, Physical Therapy or referral to Orthopedics. Things you can do to help your shoulder pain: 1. Rest. If it hurts when you do that, don't do that. Often a few days of avoiding the offending activity, then gradually advancing activities as tolerated, will lead to pain-free resumption of your usual activities. 2. Cold. An ice pack or cold compress for 15-20 minutes, especially upon onset of pain or followingan activity that aggravates pain, will usually help the pain. 3. Heat. Later a warm compress for 15-20 minutes several times a day will often make the shoulder feel better. Some patients like to alternate warm and cold compresses. 4. Liniment. Marko Chase, Icy Hot, or any liniment you prefer can make your shoulder feel better-but stop it if it becomes too irritating to the skin. 5. Frty-rho-pzydnzk pain medicines. Acetaminophen (Tylenol), ibuprofen (Motrin), or naproxen (Aleve) should provide some pain relief. Make sure not to exceed recommended doses, and if you are requiring more of it more frequently, see your doctor. documented in this encounterAkron [facility]05-09-2022 History of Present illness Narrative* Stephanie Kapadia APRN.DYAN MARIA - 06/18/2021 3:00 PM EDT Chief Complaint Patient presents with: Pain (Shoulder Pain): pain and bruising X 1 week HPI David Aldrich is a 60 year old female who presents here today for a history of right arm/shoulder pain. This is an established patient of Dr. Stephanie Kapadia APRN.DYAN MARIA. Denies any recent urgent care visits, ER visits or hospitalizations. Past Medical History: Bradycardia, diabetes, hyperlipidemia, chronic insomnia, chronic back pain/sciatica, fatty liver, chronic bronchitis, chronic tobacco abuse, chronic shoulder pain, major depressive disorder, generalized anxiety Specialty Providers: Orthopedics: Dr. Quiroz [facility]. Arm and shoulder pain: Arm pain for 1 week. Noticed some superficial bruising to the right upper arm and biceps region. This started yesterday. No tenderness or pain to the arm. Denies redness or swelling. Has continued weakness of the right shoulder. Was seen by orthopedics this past fall and recommended to Dr. Narvaez for right shoulder surgery. Stated she was unable to have surgery completed due to inability to take off work. [facility] and is difficult for her to miss anytime at work due to finances. Denies recent trauma. Pain can be 10 out of 10 in her right shoulder at its worst. No recent imaging. Last imaging was an MRI on September 2020. This showed full-thickness tear of the right supraspinatus and subscapularis tendons. Denies numbness or tingling in the upper extremity or in the hand. Past medical history, appointments, medications, allergies reviewed 06/18/2021 Previous Medical History PAST MEDICAL HISTORY Diagnosis Date Arrhythmia Bradycardia Diabetes mellitus with peripheral artery disease (HCC) 03/06/2015 H/O percutaneous left heart catheterization May, negative--[facility] History of rectal polypectomy 09/23/201712/2014: hyperplastic polyp Hyperlipidemia LDL goal < 100 01/25/2013 Hypertension Major depressive disorder, recurrent episode, unspecified Non-alcoholic fatty liver disease 10/13/2014 Other and unspecified hyperlipidemia Other chronic nonalcoholic liver disease 01/16 fatty liver disease Peripheral arterial disease (HCC) 03/06/2015 Recurrent major depressive disorder, in full remission (HCC) 03/10/2017 Snoring Type 2 diabetes mellitus with stage 3 chronic kidney disease, without long-term current use of insulin (HCC) 05/11/2016 Previous Surgical History PAST SURGICAL HISTORY Procedure Laterality Date APPENDECTOMY 1971 CAROTID ENDARTERECTOMY 06/16/2012 Right carotid COLONOSCOPY 12/12/14 Repeat 2018 Family History FAMILY HISTORY Problem Relation Age of Onset Heart Mother Diabetes Father other (Parkinson's disease [Other]) Brother Patient Allergies ALLERGIES Allergen Reactions Zocor [Simvastatin] Other: See Comments myalgia Current Medications Current Outpatient Medications on File Prior to Visit Medication Sig zolpidem (AMBIEN) 10 mg Take 1 tablet by mouth daily at bedtime for 30 days. cyclobenzaprine (FLEXERIL) 5 mg tablet Take 1 tablet by mouth three times daily as needed. imipramine HCl (TOFRANIL) 50 mg tablet take 3 tablets by mouth at bedtime albuterol HFA (VENTOLIN HFA) 90 mcg/actuation inhaler Inhale 2 Puffs as instructed every 4 hours asneeded for wheezing/shortness of breath. nicotine (NICODERM) 21 mg/24 hr Apply 1 Patch as directed every 24 hours. Apply a patch daily for 6weeks, then start 14mg patches nicotine (NICODERM) 14 mg/24 hr Apply 1 Patch as directed every 24 hours. No smoking with patch. Apply a patch daily for 2 weeks, then start 7mg patches nicotine (NICODERM) 7 mg/24 hr Apply 1 Patch as directed every 24 hours. Apply a patch daily for 2 weeks (Patient not taking: Reported on 03/08/2021 ) thiothixene (NAVANE) 1 mg capsule Take 2 capsules by mouth twice daily. ondansetron orally disintegrating (ZOFRAN ODT) 4 mg disintegrating tablet Take 1 tablet by mouth every 8 hours as needed for nausea/vomiting. NIFEdipine XL (ADALAT CC) 30 mg 24 hr tablet Take 1 tablet by mouth once daily. polyethylene glycol 3350 (MIRALAX, GLYCOLAX) 17 gram/dose powder Use as directed for Miralax / Gatorade Bowel Prep Kit Gatorade Sports Drink Use as directed for Miralax / Gatorade Bowel Prep Kit Bisacodyl (DULCOLAX) 5 mg tab Use as directed for Miralax / Gatorade Bowel Prep Kit metFORMIN (GLUCOPHAGE) 500 mg tablet Take 1 tablet by mouth daily with dinner. lisinopril (ZESTRIL, PRINIVIL) 5 mg tablet Take 1 tablet by mouth once daily. atorvastatin (LIPITOR) 20 mg tablet Take 1 tablet by mouth once daily. busPIRone (BUSPAR) 5 mg tablet Take 1 tablet by mouth three times daily as needed. Melatonin 5 mg cap Take 1 capsule by mouth once daily. blood sugar diagnostic (FREESTYLE LITE STRIPS) test strip Use as instructed--Test blood sugars oncedaily. DX: 250.00 Aspirin 81 mg tab Take 1 tablet by mouth once daily. Take with food. lancets(FREESTYLE LANCETS) test blood sugar twice a day Current Facility-Administered Medications on File Prior to Visit Medication perflutren lipid microspheres 1.3 mL in NaCl (PF) 0.9% 10 mL injection (DEFINITY) sodium chloride 0.9 % (flush) 10 mL (BD POSIFLUSH) Social History Social History Tobacco Use Smoking status: Current Every Day Smoker Packs/day: 1.00 Years: 25.00 Pack years: 25.00 Types: Cigarettes Smokeless tobacco: Never Used Vaping Use Vaping Use: Never used Substance Use Topics Alcohol use: Not Currently Comment: quit 04/18 Drug use: No Review of Symptoms PAIN ASSESSMENT: CURRENTLY HAVING PAIN in the right shoulder; PAIN SCALE: 10 on 0-10 scale per patient at its worst GENERAL: No weight loss, malaise or fevers HEENT: Negative for headaches NECK: Negative for lumps, pain and significant neck swelling MUSCULOSKELETAL: Negative for generalized joint pain, swelling, back pain or muscle aches SKIN: see HPI EXAM: BP 128/76 Pulse 100 Resp 14 Wt 70.3 kg (155 lb) LMP 01/08/2010 SpO2 97% BMI 29.29 kg/m General Appearance: Well appearing, alert, in no acute distress, well-hydrated, well nourished. Skin: Skin color, texture, turgor normal, no suspicious rashes or lesions. Head: Normocephalic, no masses, lesions, tenderness or abnormalities. Lungs: Lungs clear to auscultation. No wheezing, rhonchi, rales. Heart: RRR without murmur, gallop, or rubs. Extremities: No deformities, edema, skin discoloration, clubbing or cyanosis. Shoulder Exam (Bilateral) Inspection/Palpation UE (R/L): Non-tender on the left. Tender on the right deltoid region. No masses, swelling. No deformity noted. Right arm: Several quarter sized superficial bruises noted to the upper arm on the lateral aspect along the bicep. Right biceps is soft and supple. No bulge or mass palpated. Speeds test negative. External Rotation and Internal Rotation motion: Pain with internal rotation on the right. Negative with external rotation. Limited range of motion on the right at the extremes. Full range of motion on the left. Shoulder Tests: Negative crossarm, positive Hawkin's test, negative impingement/Neers, positive empty can, negative speeds, positive liftoff test. Negative apprehension Strength: Full on Left 5 out of 5. 4/5 on the left with decreased range of motion. Sensation: Grossly intact bilaterally UE Skin (R/L): No rashes or lesions. Right arm: Brachial and radial pulses are 2+ on the right. Skin is warm and pink. No erythema notedto the right arm. Psych: Attitude - cooperative, easily engaged in conversation Appearance - normal, hygiene and grooming appropriate Affect - euthymic, normal mood Mental status: Alert, attentive. Speech is clear and fluent with good repetition, comprehension Coordination: There are no abnormal or extraneous movements. Gait/Stance: Posture is normal. Gait is steady with normal steps, base, arm swing, and turning. Health Maintenance List LUNG CANCER SCREENING Never done SHINGRIX VACCINE(1 of 2) Never done COLORECTAL CANCER SCREENING due on 12/12/2017 PAP TESTING due on 03/26/2019 HPV TESTING due on 03/26/2019 DILATED RETINAL EXAM due on 09/06/2019 URINE ALBUMIN:CREATININE RATIO due on 03/30/2020 COVID-19 VACCINE(2 - Booster for Elsy series) due on 08/21/2020 HBA1C due on 10/06/2020 DIABETIC FOOT EXAM due on 10/17/2020 LDL CHOLESTEROL due on 04/08/2021 DTAP,TDAP,TD(2 - Td or Tdap) due on 10/08/2021 INFLUENZA(Season Ended) due on 10/11/2021 SERUM CREATININE due on 01/25/2022 HEMOGLOBIN/HEMATOCRIT due on 01/25/2022 MAMMOGRAM due on 04/16/2022 ANNUAL PCP TEAM CHRONIC DISEASE VISIT due on 04/28/2022 ONE PNEUMOVAX PRIOR TO AGE 65 Completed HEPATITIS C SCREENING Completed MENINGOCOCCAL CONJUGATE Aged Out HIV SCREENING Discontinued Data reviewed Last 5 Encounter BP Readings: Date: BP: 04/28/2021 110/72 04/09/2021 100/64 02/20/2021 110/80 01/25/2021 130/80 01/24/2021 116/82 BMI Readings from Last 5 Encounters: 06/18/21 : 29.29 kg/m 04/28/21 : 28.98 kg/m 04/09/21 : 28.91 kg/m 02/20/21 : 30.08 kg/m 01/25/21 : 29.85 kg/m Last 5 Encounter Wt Readings: Date: Wt: 04/28/2021 69.6 kg (153 lb 6.4 oz) 04/09/2021 69.4 kg (153 lb) 02/20/2021 72.2 kg (159 lb 3.2 oz) 01/25/2021 71.7 kg (158 lb) 01/24/2021 72.8 kg (160 lb 6.4 oz) Medication and allergy list reviewed, reconciled and updated 06/18/2021 ASSESSMENT/PLAN: 1. Nontraumatic complete tear of right rotator cuff - ICD9: 727.61, ICD10: M75.121 (primary diagnosis) MDM: Not well controlled chronic right shoulder pain with supraspinatus and subscapularis full-thickness tears. Was referred to orthopedics this past fall. Recommended in December for surgical consultation for repair with orthopedic surgeon but patient failed to make an appointment. States she is unable to be off work for the recovery time period. Works paycheck to [employer]. Reviewed with patientpossible options to include limited time off and working with her employer to look at light duty opportunities. Unclear of the mechanism for the bruising. Clinically she is hemodynamically stable. Blood pressure is 128/76. Pulse is slightly elevated at 100 but she is sitting comfortably in exam room. Continue to monitor for any worsening bruising, redness or swelling of the arm. Recommend she go to the ER if she would notice this. Plan: Follow up with PT and Orthopedics. Shoulder x-ray today. Start physical therapy -consult placed Meloxicam and or Flexeril for shoulder pain Rest, ice for comfort Return to the clinic or seek care at [facility] for any worsening signs or symptoms: such as fevers, chills, worsening pain or worsening bruising. For severe symptoms seek care at the closest ER. Plan of care, medicaiton side effects and management reviewed with patient. - XR SHOULDER [id number] AP/TRUE AP RIGHT - CONSULT TO PHYSICAL THERAPY 2. Contusion of right upper extremity, initial encounter - ICD9: 923.9, ICD10: S40.021A Unclear etiology for bruising. States she does bruise easily. Bruising appears very superficial is nontender. She is unclear whether she bumped her arm into anything. Has chronic right shoulder pain.Discussed checking blood counts if bruising would continue or she has any worsening of symptoms. Shared decision making made to follow-up with physical therapy and orthopedics. She will go to the ER for any worsening of symptoms Stephanie Kapadia APRN.DYAN MARIA This note was completed with Ameibo dictation software. Note was reviewed for accuracy. There may be minor misspellings or grammar miscues with Ameibo Dictation. I spent a total of 30 minutes on the date of the service which included preparing to see the patient, [id number] patient care, completing clinical documentation, performing a medically appropriate examination, counseling and educating the patient/family/caregiver and ordering medications, tests, or procedures. [place] [id number] documented in this encounterAkron [facility]04-20-2022 Miscellaneous Notes* Telephone Encounter - Stephanie Kapadia APRN.DYAN MARIA - 05/30/2021 11:25 AM EDT The following approved medication requests have been transmitted electronically. Pending Prescriptions Disp Refills ZOLPIDEM 10 MG TABLET 30 tablet 0 Sig: Take 1 tablet by mouth daily at bedtime for 30 days. RICK Class: C-IV DAYRON: Yes Stephanie Kapadia APRN.DYAN MARIA * Telephone Encounter - Keelye Barron LPN - 05/30/2021 10:58 AM EDT Patient has been identified by name and date of : Yes Patient phones for refill(s): Pending Prescriptions Disp Refills ZOLPIDEM 10 MG TABLET 30 tablet Sig: Take 1 tablet by mouth daily at bedtime for 30 days. RICK Class: C-IV DAYRON: Yes Date of last office visit in primary care: 04/28/21 next apt 06/27/21 Last 2 Encounter Wt Readings: Date: Wt: 04/28/2021 69.6 kg (153 lb 6.4 oz) 04/09/2021 69.4 kg (153 lb) Previous labs/tests for medication: Not applicable Thank you. Keeley Barron LPN documented in this encounterAkron [facility]12-15-2021 History of Present illness Narrative* Adriana Sterling RT(Kai) - 01/24/2021 11:00 AM EST Radiology Service Progress Note PATIENT NAME: David Aldrich DATE OF SERVICE: January 24, 2021 TIME: 11:02 AM PATIENT IDENTITY VERIFICATION COMPLETED USING TWO (2) IDENTIFIERS: Name and Date of confirmedby patient verbally. FALL SCREENING: Has the patient had 2 falls in the last year or 1 fall with injury or currently using an Ambulatory Assistive Device (Walker, Cane, Wheelchair, Crutches, etc.)? No PATIENT GENDER DATA: Female. status: : No status: NO. PATIENT RELEVANT IMPLANT DATA REVIEWED: Yes RADIOLOGY DEPARTMENT: General X-ray: Exam(s) Completed: Chest X-Ray PERIPHERAL IV DATA: Not applicable SIGNED BY: SOURAV Stratton) January 24, 2021 11:02 AM [facility] Past illness Narrative* Problem Noted Date Resolved Date Abdominal pain 09/24/2017 03/09/2018 Overview: Added automatically from request for surgery [id number] Other and unspecified hyperlipidemia 06/30/2006 01/25/2013 Severe major depression with psychotic features 03/11/2005 03/10/2017 documented as of this encounter (statuses as of 05/18/2021) [facility] History of Past illness Narrative* Problem Noted Date Resolved Date Abdominal pain 09/24/2017 03/09/2018 Overview: Added automatically from request for surgery [id number] Other and unspecified hyperlipidemia 06/30/2006 01/25/2013 Severe major depression with psychotic features 03/11/2005 03/10/2017 documented as of this encounter (statuses as of 05/30/2021) [address]15-2018 History of Past illness Narrative* Problem Noted Date Resolved Date Abdominal pain 09/24/2017 03/09/2018 Overview: Added automatically from request for surgery [id number] Other and unspecified hyperlipidemia 06/30/2006 01/25/2013 Severe major depression with psychotic features 03/11/2005 03/10/2017 documented as of this encounter (statuses as of 06/18/2021) [address]15-2018 History of Past illness Narrative* Problem Noted Date Resolved Date Abdominal pain 09/24/2017 03/09/2018 Overview: Added automatically from request for surgery [id number] Other and unspecified hyperlipidemia 06/30/2006 01/25/2013 Severe major depression with psychotic features 03/11/2005 03/10/2017 documented as of this encounter (statuses as of 06/21/2021) [address]15-2018 History of Past illness Narrative* Problem Noted Date Resolved Date Abdominal pain 09/24/2017 03/09/2018 Overview: Added automatically from request for surgery [id number] Other and unspecified hyperlipidemia 06/30/2006 01/25/2013 Severe major depression with psychotic features 03/11/2005 03/10/2017 documented as of this encounter (statuses as of 06/22/2021) [address]15-2018 History of Past illness Narrative* Problem Noted Date Resolved Date Abdominal pain 09/24/2017 03/09/2018 Overview: Added automatically from request for surgery [id number] Other and unspecified hyperlipidemia 06/30/2006 01/25/2013 Severe major depression with psychotic features 03/11/2005 03/10/2017 documented as of this encounter (statuses as of 06/26/2021) [address]15-2018 History of Past illness Narrative* Problem Noted Date Resolved Date Abdominal pain 09/24/2017 03/09/2018 Overview: Added automatically from request for surgery [id number] Other and unspecified hyperlipidemia 06/30/2006 01/25/2013 Severe major depression with psychotic features 03/11/2005 03/10/2017 documented as of this encounter (statuses as of 06/27/2021) [address]15-2018 History of Past illness Narrative* Problem Noted Date Resolved Date Abdominal pain 09/24/2017 03/09/2018 Overview: Added automatically from request for surgery [id number] Other and unspecified hyperlipidemia 06/30/2006 01/25/2013 Severe major depression with psychotic features 03/11/2005 03/10/2017 documented as of this encounter (statuses as of 06/28/2021) [address]15-2018 History of Past illness Narrative* Problem Noted Date Resolved Date Abdominal pain 09/24/2017 03/09/2018 Overview: Added automatically from request for surgery [id number] Other and unspecified hyperlipidemia 06/30/2006 01/25/2013 Severe major depression with psychotic features 03/11/2005 03/10/2017 documented as of this encounter (statuses as of 07/02/2021) [address]15-2018 History of Past illness Narrative* Problem Noted Date Resolved Date Abdominal pain 09/24/2017 03/09/2018 Overview: Added automatically from request for surgery [id number] Other and unspecified hyperlipidemia 06/30/2006 01/25/2013 Severe major depression with psychotic features 03/11/2005 03/10/2017 documented as of this encounter (statuses as of 07/08/2021) [address]15-2018 History of Past illness Narrative* Problem Noted Date Resolved Date Abdominal pain 09/24/2017 03/09/2018 Overview: Added automatically from request for surgery [id number] Other and unspecified hyperlipidemia 06/30/2006 01/25/2013 Severe major depression with psychotic features 03/11/2005 03/10/2017 documented as of this encounter (statuses as of 07/11/2021) [address]15-2018 History of Past illness Narrative* Problem Noted Date Resolved Date Abdominal pain 09/24/2017 03/09/2018 Overview: Added automatically from request for surgery [id number] Other and unspecified hyperlipidemia 06/30/2006 01/25/2013 Severe major depression with psychotic features 03/11/2005 03/10/2017 documented as of this encounter (statuses as of 07/25/2021) [address]15-2018 History of Past illness Narrative* Problem Noted Date Resolved Date Abdominal pain 09/24/2017 03/09/2018 Overview: Added automatically from request for surgery [id number] Other and unspecified hyperlipidemia 06/30/2006 01/25/2013 Severe major depression with psychotic features 03/11/2005 03/10/2017 documented as of this encounter (statuses as of 08/24/2021) [address]15-2018 History of Past illness Narrative* Problem Noted Date Resolved Date Abdominal pain 09/24/2017 03/09/2018 Overview: Added automatically from request for surgery [id number] Other and unspecified hyperlipidemia 06/30/2006 01/25/2013 Severe major depression with psychotic features 03/11/2005 03/10/2017 documented as of this encounter (statuses as of 08/24/2021) [address]15-2018 History of Past illness Narrative* Problem Noted Date Resolved Date Abdominal pain 09/24/2017 03/09/2018 Overview: Added automatically from request for surgery [id number] Other and unspecified hyperlipidemia 06/30/2006 01/25/2013 Severe major depression with psychotic features 03/11/2005 03/10/2017 documented as of this encounter (statuses as of 08/29/2021) [address]15-2018 History of Past illness Narrative* Problem Noted Date Resolved Date Abdominal pain 09/24/2017 03/09/2018 Overview: Added automatically from request for surgery [id number] Other and unspecified hyperlipidemia 06/30/2006 01/25/2013 Severe major depression with psychotic features 03/11/2005 03/10/2017 documented as of this encounter (statuses as of 08/31/2021) [address]15-2018 History of Past illness Narrative* Problem Noted Date Resolved Date Abdominal pain 09/24/2017 03/09/2018 Overview: Added automatically from request for surgery [id number] Other and unspecified hyperlipidemia 06/30/2006 01/25/2013 Severe major depression with psychotic features 03/11/2005 03/10/2017 documented as of this encounter (statuses as of 09/24/2021) [address]15-2018 History of Past illness Narrative* Problem Noted Date Resolved Date Abdominal pain 09/24/2017 03/09/2018 Overview: Added automatically from request for surgery [id number] Other and unspecified hyperlipidemia 06/30/2006 01/25/2013 Severe major depression with psychotic features 03/11/2005 03/10/2017 documented as of this encounter (statuses as of 09/25/2021) [address]15-2018 History of Past illness Narrative* Problem Noted Date Resolved Date Abdominal pain 09/24/2017 03/09/2018 Overview: Added automatically from request for surgery [id number] Other and unspecified hyperlipidemia 06/30/2006 01/25/2013 Severe major depression with psychotic features 03/11/2005 03/10/2017 documented as of this encounter (statuses as of 10/10/2021) [address]15-2018 History of Past illness Narrative* Problem Noted Date Resolved Date Abdominal pain 09/24/2017 03/09/2018 Overview: Added automatically from request for surgery [id number] Other and unspecified hyperlipidemia 06/30/2006 01/25/2013 Severe major depression with psychotic features 03/11/2005 03/10/2017 documented as of this encounter (statuses as of 11/02/2021) [facility] Narrative* Problem Noted Date Resolved Date Abdominal pain 09/24/2017 03/09/2018 Overview: Added automatically from request for surgery [id number] Other and unspecified hyperlipidemia 06/30/2006 01/25/2013 Severe major depression with psychotic features 03/11/2005 03/10/2017 documented as of this encounter (statuses as of 11/13/2021) [facility] History of Past illness Narrative* Problem Noted Date Resolved Date Abdominal pain 09/24/2017 03/09/2018 Overview: Added automatically from request for surgery [id number] Other and unspecified hyperlipidemia 06/30/2006 01/25/2013 Severe major depression with psychotic features 03/11/2005 03/10/2017 documented as of this encounter (statuses as of 11/26/2021) [address]15-2018 History of Past illness Narrative* Problem Noted Date Resolved Date Abdominal pain 09/24/2017 03/09/2018 Overview: Added automatically from request for surgery [id number] Other and unspecified hyperlipidemia 06/30/2006 01/25/2013 Severe major depression with psychotic features 03/11/2005 03/10/2017 documented as of this encounter (statuses as of 11/28/2021) [address]15-2018 History of Past illness Narrative* Problem Noted Date Resolved Date Abdominal pain 09/24/2017 03/09/2018 Overview: Added automatically from request for surgery [id number] Other and unspecified hyperlipidemia 06/30/2006 01/25/2013 Severe major depression with psychotic features 03/11/2005 03/10/2017 documented as of this encounter (statuses as of 11/29/2021) [address]15-2018 History of Past illness Narrative* Problem Noted Date Resolved Date Abdominal pain 09/24/2017 03/09/2018 Overview: Added automatically from request for surgery [id number] Other and unspecified hyperlipidemia 06/30/2006 01/25/2013 Severe major depression with psychotic features 03/11/2005 03/10/2017 documented as of this encounter (statuses as of 12/14/2021) [address]15-2018 History of Past illness Narrative* Problem Noted Date Resolved Date Abdominal pain 09/24/2017 03/09/2018 Overview: Added automatically from request for surgery [id number] Other and unspecified hyperlipidemia 06/30/2006 01/25/2013 Severe major depression with psychotic features 03/11/2005 03/10/2017 documented as of this encounter (statuses as of 12/21/2021) [address]15-2018 History of Past illness Narrative* Problem Noted Date Resolved Date Abdominal pain 09/24/2017 03/09/2018 Overview: Added automatically from request for surgery [id number] Other and unspecified hyperlipidemia 06/30/2006 01/25/2013 Severe major depression with psychotic features 03/11/2005 03/10/2017 documented as of this encounter (statuses as of 12/25/2021) [address]15-2018 History of Past illness Narrative* Problem Noted Date Resolved Date Abdominal pain 09/24/2017 03/09/2018 Overview: Added automatically from request for surgery [id number] Other and unspecified hyperlipidemia 06/30/2006 01/25/2013 Severe major depression with psychotic features 03/11/2005 03/10/2017 documented as of this encounter (statuses as of 12/31/2021) [address]15-2018 History of Past illness Narrative* Problem Noted Date Resolved Date Abdominal pain 09/24/2017 03/09/2018 Overview: Added automatically from request for surgery [id number] Other and unspecified hyperlipidemia 06/30/2006 01/25/2013 Severe major depression with psychotic features 03/11/2005 03/10/2017 documented as of this encounter (statuses as of 01/09/2022) [address]15-2018 History of Past illness Narrative* Problem Noted Date Resolved Date Abdominal pain 09/24/2017 03/09/2018 Overview: Added automatically from request for surgery [id number] Other and unspecified hyperlipidemia 06/30/2006 01/25/2013 Severe major depression with psychotic features 03/11/2005 03/10/2017 documented as of this encounter (statuses as of 01/22/2022) [address]15-2018 History of Past illness Narrative* Problem Noted Date Resolved Date Abdominal pain 09/24/2017 03/09/2018 Overview: Added automatically from request for surgery [id number] Other and unspecified hyperlipidemia 06/30/2006 01/25/2013 Severe major depression with psychotic features 03/11/2005 03/10/2017 documented as of this encounter (statuses as of 01/23/2022) [address]15-2018 History of Past illness Narrative* Problem Noted Date Resolved Date Abdominal pain 09/24/2017 03/09/2018 Overview: Added automatically from request for surgery [id number] Other and unspecified hyperlipidemia 06/30/2006 01/25/2013 Severe major depression with psychotic features 03/11/2005 03/10/2017 documented as of this encounter (statuses as of 02/21/2022) [address]15-2018 History of Past illness Narrative* Problem Noted Date Resolved Date Abdominal pain 09/24/2017 03/09/2018 Overview: Added automatically from request for surgery [id number] Other and unspecified hyperlipidemia 06/30/2006 01/25/2013 Severe major depression with psychotic features 03/11/2005 03/10/2017 documented as of this encounter (statuses as of 02/21/2022) [address]15-2018 History of Past illness Narrative* Problem Noted Date Resolved Date Abdominal pain 09/24/2017 03/09/2018 Overview: Added automatically from request for surgery [id number] Other and unspecified hyperlipidemia 06/30/2006 01/25/2013 Severe major depression with psychotic features 03/11/2005 03/10/2017 documented as of this encounter (statuses as of 03/08/2022) [address]15-2018 History of Past illness Narrative* Problem Noted Date Resolved Date Abdominal pain 09/24/2017 03/09/2018 Overview: Added automatically from request for surgery [id number] Other and unspecified hyperlipidemia 06/30/2006 01/25/2013 Severe major depression with psychotic features 03/11/2005 03/10/2017 documented as of this encounter (statuses as of 03/12/2022) [address]15-2018 History of Past illness Narrative* Problem Noted Date Resolved Date Abdominal pain 09/24/2017 03/09/2018 Overview: Added automatically from request for surgery [id number] Other and unspecified hyperlipidemia 06/30/2006 01/25/2013 Severe major depression with psychotic features 03/11/2005 03/10/2017 documented as of this encounter (statuses as of 03/28/2022) [address]15-2018 History of Past illness Narrative* Problem Noted Date Resolved Date Abdominal pain 09/24/2017 03/09/2018 Overview: Added automatically from request for surgery [id number] Other and unspecified hyperlipidemia 06/30/2006 01/25/2013 Severe major depression with psychotic features 03/11/2005 03/10/2017 documented as of this encounter (statuses as of 03/29/2022) [address]15-2018 History of Past illness Narrative* Problem Noted Date Resolved Date Abdominal pain 09/24/2017 03/09/2018 Overview: Added automatically from request for surgery [id number] Other and unspecified hyperlipidemia 06/30/2006 01/25/2013 Severe major depression with psychotic features 03/11/2005 03/10/2017 documented as of this encounter (statuses as of 04/09/2022) [address]15-2018 History of Past illness Narrative* Problem Noted Date Resolved Date Abdominal pain 09/24/2017 03/09/2018 Overview: Added automatically from request for surgery [id number] Other and unspecified hyperlipidemia 06/30/2006 01/25/2013 Severe major depression with psychotic features 03/11/2005 03/10/2017 documented as of this encounter (statuses as of 04/30/2022) [address]15-2018 History of Past illness Narrative* Problem Noted Date Resolved Date Abdominal pain 09/24/2017 03/09/2018 Overview: Added automatically from request for surgery [id number] Other and unspecified hyperlipidemia 06/30/2006 01/25/2013 Severe major depression with psychotic features 03/11/2005 03/10/2017 documented as of this encounter (statuses as of 05/23/2022) [facility] Narrative* Problem Noted Date Resolved Date Abdominal pain 09/24/2017 03/09/2018 Overview: Added automatically from request for surgery [id number] Other and unspecified hyperlipidemia 06/30/2006 01/25/2013 Severe major depression with psychotic features 03/11/2005 03/10/2017 documented as of this encounter (statuses as of 05/27/2022) [facility] of Past illness Narrative* Problem Noted Date Resolved Date Abdominal pain 09/24/2017 03/09/2018 Overview: Added automatically from request for surgery [id number] Other and unspecified hyperlipidemia 06/30/2006 01/25/2013 Severe major depression with psychotic features 03/11/2005 03/10/2017 documented as of this encounter (statuses as of 06/25/2022) [facility] History of Past illness Narrative* Problem Noted Date Resolved Date Abdominal pain 09/24/2017 03/09/2018 Overview: Added automatically from request for surgery [id number] Other and unspecified hyperlipidemia 06/30/2006 01/25/2013 Severe major depression with psychotic features 03/11/2005 03/10/2017 documented as of this encounter (statuses as of 06/26/2022) [facility]arrative* Problem Noted Date Resolved Date Abdominal pain 09/24/2017 03/09/2018 Overview: Added automatically from request for surgery [id number] Other and unspecified hyperlipidemia 06/30/2006 01/25/2013 Severe major depression with psychotic features 03/11/2005 03/10/2017 documented as of this encounter (statuses as of 08/15/2022) [place] [address]15-2018 History of Past illness Narrative* Problem Noted Date Diagnosed Date Resolved Date Abdominal pain 09/24/2017 03/09/2018 Overview: Added automatically from request for surgery [id number] Other and unspecified hyperlipidemia 06/30/2006 01/25/2013 Severe major depression with psychotic features 03/11/2005 03/10/2017 documented as of this encounter (statuses as of 08/17/2022) [address]15-2018 History of Past illness Narrative* Problem Noted Date Diagnosed Date Resolved Date Abdominal pain 09/24/2017 03/09/2018 Overview: Added automatically from request for surgery [id number] Other and unspecified hyperlipidemia 06/30/2006 01/25/2013 Severe major depression with psychotic features 03/11/2005 03/10/2017 documented as of this encounter (statuses as of 08/21/2022) [address]15-2018 History of Past illness Narrative* Problem Noted Date Diagnosed Date Resolved Date Abdominal pain 09/24/2017 03/09/2018 Overview: Added automatically from request for surgery [id number] Other and unspecified hyperlipidemia 06/30/2006 01/25/2013 Severe major depression with psychotic features 03/11/2005 03/10/2017 documented as of this encounter (statuses as of 09/11/2022) [address]15-2018 History of Past illness Narrative* Problem Noted Date Diagnosed Date Resolved Date Abdominal pain 09/24/2017 03/09/2018 Overview: Added automatically from request for surgery [id number] Other and unspecified hyperlipidemia 06/30/2006 01/25/2013 Severe major depression with psychotic features 03/11/2005 03/10/2017 documented as of this encounter (statuses as of 09/16/2022) [address]15-2018 History of Past illness Narrative* Problem Noted Date Diagnosed Date Resolved Date Abdominal pain 09/24/2017 03/09/2018 Overview: Added automatically from request for surgery [id number] Other and unspecified hyperlipidemia 06/30/2006 01/25/2013 Severe major depression with psychotic features 03/11/2005 03/10/2017 documented as of this encounter (statuses as of 10/07/2022) [address]15-2018 History of Past illness Narrative* Problem Noted Date Diagnosed Date Resolved Date Abdominal pain 09/24/2017 03/09/2018 Overview: Added automatically from request for surgery [id number] Other and unspecified hyperlipidemia 06/30/2006 01/25/2013 Severe major depression with psychotic features 03/11/2005 03/10/2017 documented as of this encounter (statuses as of 10/10/2022) [address]15-2018 History of Past illness Narrative* Problem Noted Date Diagnosed Date Resolved Date Abdominal pain 09/24/2017 03/09/2018 Overview: Added automatically from request for surgery [id number] Other and unspecified hyperlipidemia 06/30/2006 01/25/2013 Severe major depression with psychotic features 03/11/2005 03/10/2017 documented as of this encounter (statuses as of 10/10/2022) [address]15-2018 History of Past illness Narrative* Problem Noted Date Diagnosed Date Resolved Date Abdominal pain 09/24/2017 03/09/2018 Overview: Added automatically from request for surgery [id number] Other and unspecified hyperlipidemia 06/30/2006 01/25/2013 Severe major depression with psychotic features 03/11/2005 03/10/2017 documented as of this encounter (statuses as of 10/11/2022) [address]15-2018 History of Past illness Narrative* Problem Noted Date Diagnosed Date Resolved Date Abdominal pain 09/24/2017 03/09/2018 Overview: Added automatically from request for surgery [id number] Other and unspecified hyperlipidemia 06/30/2006 01/25/2013 Severe major depression with psychotic features 03/11/2005 03/10/2017 documented as of this encounter (statuses as of 10/15/2022) [address]15-2018 History of Past illness Narrative* Problem Noted Date Diagnosed Date Resolved Date Abdominal pain 09/24/2017 03/09/2018 Overview: Added automatically from request for surgery [id number] Other and unspecified hyperlipidemia 06/30/2006 01/25/2013 Severe major depression with psychotic features 03/11/2005 03/10/2017 documented as of this encounter (statuses as of 10/16/2022) [address]15-2018 History of Past illness Narrative* Problem Noted Date Diagnosed Date Resolved Date Abdominal pain 09/24/2017 03/09/2018 Overview: Added automatically from request for surgery [id number] Other and unspecified hyperlipidemia 06/30/2006 01/25/2013 Severe major depression with psychotic features 03/11/2005 03/10/2017 documented as of this encounter (statuses as of 10/18/2022) [address]15-2018 History of Past illness Narrative* Problem Noted Date Diagnosed Date Resolved Date Abdominal pain 09/24/2017 03/09/2018 Overview: Added automatically from request for surgery [id number] Other and unspecified hyperlipidemia 06/30/2006 01/25/2013 Severe major depression with psychotic features 03/11/2005 03/10/2017 documented as of this encounter (statuses as of 10/19/2022) [address]15-2018 History of Past illness Narrative* Problem Noted Date Diagnosed Date Resolved Date Abdominal pain 09/24/2017 03/09/2018 Overview: Added automatically from request for surgery [id number] Other and unspecified hyperlipidemia 06/30/2006 01/25/2013 Severe major depression with psychotic features 03/11/2005 03/10/2017 documented as of this encounter (statuses as of 10/22/2022) [address]15-2018 History of Past illness Narrative* Problem Noted Date Diagnosed Date Resolved Date Abdominal pain 09/24/2017 03/09/2018 Overview: Added automatically from request for surgery [id number] Other and unspecified hyperlipidemia 06/30/2006 01/25/2013 Severe major depression with psychotic features 03/11/2005 03/10/2017 documented as of this encounter (statuses as of 10/23/2022) [address]15-2018 History of Past illness Narrative* Problem Noted Date Diagnosed Date Resolved Date Abdominal pain 09/24/2017 03/09/2018 Overview: Added automatically from request for surgery [id number] Other and unspecified hyperlipidemia 06/30/2006 01/25/2013 Severe major depression with psychotic features 03/11/2005 03/10/2017 documented as of this encounter (statuses as of 11/01/2022) [address]15-2018 History of Past illness Narrative* Problem Noted Date Diagnosed Date Resolved Date Abdominal pain 09/24/2017 03/09/2018 Overview: Added automatically from request for surgery [id number] Other and unspecified hyperlipidemia 06/30/2006 01/25/2013 Severe major depression with psychotic features 03/11/2005 03/10/2017 documented as of this encounter (statuses as of 11/04/2022) [address]15-2018 History of Past illness Narrative* Problem Noted Date Diagnosed Date Resolved Date Abdominal pain 09/24/2017 03/09/2018 Overview: Added automatically from request for surgery [id number] Other and unspecified hyperlipidemia 06/30/2006 01/25/2013 Severe major depression with psychotic features 03/11/2005 03/10/2017 documented as of this encounter (statuses as of 11/12/2022) [address]15-2018 History of Past illness Narrative* Problem Noted Date Diagnosed Date Resolved Date Abdominal pain 09/24/2017 03/09/2018 Overview: Added automatically from request for surgery [id number] Other and unspecified hyperlipidemia 06/30/2006 01/25/2013 Severe major depression with psychotic features 03/11/2005 03/10/2017 documented as of this encounter (statuses as of 12/04/2022) [address]15-2018 History of Past illness Narrative* Problem Noted Date Diagnosed Date Resolved Date Abdominal pain 09/24/2017 03/09/2018 Overview: Added automatically from request for surgery [id number] Other and unspecified hyperlipidemia 06/30/2006 01/25/2013 Severe major depression with psychotic features 03/11/2005 03/10/2017 documented as of this encounter (statuses as of 12/13/2022) [address]15-2018 History of Past illness Narrative* Problem Noted Date Diagnosed Date Resolved Date Abdominal pain 09/24/2017 03/09/2018 Overview: Added automatically from request for surgery [id number] Other and unspecified hyperlipidemia 06/30/2006 01/25/2013 Severe major depression with psychotic features 03/11/2005 03/10/2017 documented as of this encounter (statuses as of 12/15/2022) [address]15-2018 History of Past illness Narrative* Problem Noted Date Diagnosed Date Resolved Date Abdominal pain 09/24/2017 03/09/2018 Overview: Added automatically from request for surgery [id number] Other and unspecified hyperlipidemia 06/30/2006 01/25/2013 Severe major depression with psychotic features 03/11/2005 03/10/2017 documented as of this encounter (statuses as of 12/17/2022) [address]15-2018 History of Past illness Narrative* Problem Noted Date Diagnosed Date Resolved Date Abdominal pain 09/24/2017 03/09/2018 Overview: Added automatically from request for surgery [id number] Other and unspecified hyperlipidemia 06/30/2006 01/25/2013 Severe major depression with psychotic features 03/11/2005 03/10/2017 documented as of this encounter (statuses as of 01/10/2023) [address]15-2018 History of Past illness Narrative* Problem Noted Date Diagnosed Date Resolved Date Abdominal pain 09/24/2017 03/09/2018 Overview: Added automatically from request for surgery [id number] Other and unspecified hyperlipidemia 06/30/2006 01/25/2013 Severe major depression with psychotic features 03/11/2005 03/10/2017 documented as of this encounter (statuses as of 01/10/2023) [address]15-2018 History of Past illness Narrative* Problem Noted Date Diagnosed Date Resolved Date Abdominal pain 09/24/2017 03/09/2018 Overview: Added automatically from request for surgery [id number] Other and unspecified hyperlipidemia 06/30/2006 01/25/2013 Severe major depression with psychotic features 03/11/2005 03/10/2017 documented as of this encounter (statuses as of 01/14/2023) [address]15-2018 History of Past illness Narrative* Problem Noted Date Diagnosed Date Resolved Date Abdominal pain 09/24/2017 03/09/2018 Overview: Added automatically from request for surgery [id number] Other and unspecified hyperlipidemia 06/30/2006 01/25/2013 Severe major depression with psychotic features 03/11/2005 03/10/2017 documented as of this encounter (statuses as of 01/18/2023) [address]-2018 History of Past illness Narrative* Problem Noted Date Diagnosed Date Resolved Date Abdominal pain 09/24/2017 03/09/2018 Overview: Added automatically from request for surgery [id number] Other and unspecified hyperlipidemia 06/30/2006 01/25/2013 Severe major depression with psychotic features 03/11/2005 03/10/2017 documented as of this encounter (statuses as of 01/25/2023) [address]-2018 History of Past illness Narrative* Problem Noted Date Diagnosed Date Resolved Date Abdominal pain 09/24/2017 03/09/2018 Overview: Added automatically from request for surgery [id number] Other and unspecified hyperlipidemia 06/30/2006 01/25/2013 Severe major depression with psychotic features 03/11/2005 03/10/2017 documented as of this encounter (statuses as of 01/25/2023) [address]-2018 History of Past illness Narrative* Problem Noted Date Diagnosed Date Resolved Date Abdominal pain 09/24/2017 03/09/2018 Overview: Added automatically from request for surgery [id number] Other and unspecified hyperlipidemia 06/30/2006 01/25/2013 Severe major depression with psychotic features 03/11/2005 03/10/2017 documented as of this encounter (statuses as of 03/21/2023) [address]2018 History of Past illness Narrative* Problem Noted Date Diagnosed Date Resolved Date Abdominal pain 09/24/2017 03/09/2018 Overview: Added automatically from request for surgery [id number] Other and unspecified hyperlipidemia 06/30/2006 01/25/2013 Severe major depression with psychotic features 03/11/2005 03/10/2017 documented as of this encounter (statuses as of 04/12/2023) [address]-2018 History of Past illness Narrative* Problem Noted Date Diagnosed Date Resolved Date Abdominal pain 09/24/2017 03/09/2018 Overview: Added automatically from request for surgery [id number] Other and unspecified hyperlipidemia 06/30/2006 01/25/2013 Severe major depression with psychotic features 03/11/2005 03/10/2017 documented as of this encounter (statuses as of 04/14/2023) [address]2018 History of Past illness Narrative* Problem Noted Date Diagnosed Date Resolved Date Abdominal pain 09/24/2017 03/09/2018 Overview: Added automatically from request for surgery [id number] Other and unspecified hyperlipidemia 06/30/2006 01/25/2013 Severe major depression with psychotic features 03/11/2005 03/10/2017 documented as of this encounter (statuses as of 04/22/2023) [address]2018 History of Past illness Narrative* Problem Noted Date Diagnosed Date Resolved Date Abdominal pain 09/24/2017 03/09/2018 Overview: Added automatically from request for surgery [id number] Other and unspecified hyperlipidemia 06/30/2006 01/25/2013 Severe major depression with psychotic features 03/11/2005 03/10/2017 documented as of this encounter (statuses as of 04/24/2023) [address]2018 History of Past illness Narrative* Problem Noted Date Diagnosed Date Resolved Date Abdominal pain 09/24/2017 03/09/2018 Overview: Added automatically from request for surgery [id number] Other and unspecified hyperlipidemia 06/30/2006 01/25/2013 Severe major depression with psychotic features 03/11/2005 03/10/2017 documented as of this encounter (statuses as of 04/29/2023) [address]2018 History of Past illness Narrative* Problem Noted Date Diagnosed Date Resolved Date Abdominal pain 09/24/2017 03/09/2018 Overview: Added automatically from request for surgery [id number] Other and unspecified hyperlipidemia 06/30/2006 01/25/2013 Severe major depression with psychotic features 03/11/2005 03/10/2017 documented as of this encounter (statuses as of 05/05/2023) [facility]08-15-2018 History of Past illness Narrative* Problem Noted Date Diagnosed Date Resolved Date Abdominal pain 09/24/2017 03/09/2018 Overview: Added automatically from request for surgery [id number] Other and unspecified hyperlipidemia 06/30/2006 01/25/2013 Severe major depression with psychotic features 03/11/2005 03/10/2017 documented as of this encounter (statuses as of 05/22/2023) [facility] Elizabeth Caputo [facility] Note Date/Time November 22, 2024 1 2:41pm [facility] Medical Records Department [address] [place] [address] Consultation - Surgical 11/19/24 1248 MR#: [id number] Acct: [id number] Name: DAVID ALDRICH Rep #:[id number] : 1960 64 From: Elizabeth BURGOS PCP: CB Landaverde Status:ADM I N Location: [place] [address]- 1 Assessment & Plan Assessment/Plan (1) Hematoma of right chest wall: PLAN: CTA images were reviewed; demonstrated R chest wall hematoma without subclavian artery involvement/active arterial bleeding; expect this to self-limiting and plan for continued monitoring. Do recommend utilizing sandbag for compression. Hold anticoagulants and antiplatelets and would hold her ASA on discharge as well. HPI Consult Data Date of Consult: 11/19/24 HPI Narrative HPI Narrative: DAVID ALDRICH, is a 64 F who was admitted to the ICU from the [facility] ER last night/early this morning with acute respiratory failure requiring bipap and suspected septic shock requiring vasopressor support. While in the ER, there were attempts to place a central line via the R subclavian which were unsuccessful and ultimately central line was place in the L subclavian. Overnight, she developed a progressive R chest wall hematoma confirmed on noncontrast CT this morning. It was noted to continue to enlarge through the morning before seeming to level off through the afternoon. She does not take anyanticoagulants at home, only ASA. On my exam today, she is off bipap and on RA; she is still requiring vasopressor support but this has been stable and they aretrying to wean. She reports no active pain to the chest wall, only tenderness with deeper palpation. [facility] Medical History Nicotine use disorder Septic arthritis Elevated coronary artery calcium score Neck pain Bilateral carotid artery stenosis Snoring Peripheral arterial disease Fatty liver disease, nonalcoholic Major depressive disorder, recurrent episode Bradycardia Palpitations SOB (shortness of breath) Diabetic acetonemia COPD (chronic obstructive pulmonary disease) Hyperlipidemia Home Medications ?Medication ?Instructions ?Recorded ?Last Taken ?Type atorvastatin 20 mg tablet 20 mg PO QHS 12/22/17 Unknow n History lisinopril 5 mg tablet 5 mg PO DAILY 12/22/17 Unkno wn History metformin 500 mg tablet 500 mg PO DAILY 12/22/17 Unk nown History aspirin 81 mg tablet,delayed 81 mg PO QDAY 01/14/24 Un known History release (Adult Aspirin Regimen) bupropion HCl 150 mg tablet,12 hr 150 mg PO BID Unknown History sustained-release (Wellbutrin SR) buspirone 5 mg tablet 5 mg PO TID 01/14/24 Unknown History cyclobenzaprine 5 mg tablet 5 mg PO TID PRN 01/14/24 U nknown History fluticasone fur. 100 mcg-umeclid 1 inh inhalation QDAY 01/14/24 Unknown History 62.5 mcg-vilant 25 mcg inhalat.powder (Trelegy Ellipta) ibuprofen 800 mg tablet 800 mg PO Q8H PRN 01/14/24 U nknown History imipramine HCl 50 mg tablet 150 mg PO QHS 01/14/24 Unk nown History ondansetron HCl 4 mg tablet 4 mg PO Q8H PRN 01/14/24 U nknown History thiothixene 2 mg capsule 2 mg PO BID 01/14/24 Unknown History zolpidem 10 mg tablet (Ambien) 10 mg PO QHS PRN sleep 01/14/24 Unknown History melatonin 5 mg capsule mg PO PRN 01/21/24 Unknown H istory pantoprazole 40 mg tablet,delayed 40 mg PO DAILY #90 t abs 03/26/24 Unknown Rx release Allergy/AdvReac Type Severity Reaction Status Date / Time simvastatin Allergy Other Verified 11/18/24 21:07 Family History Mother Heart disease Father Diabetes Brother Parkinson's disease Surgical History History of arthroscopy of knee History of colonoscopy History of rectal polypectomy History of cardiac catheterization H/O carotid endarterectomy History of appendectomy Social History household members: children Smoking Status: Current every day smoker tobacco type: cigarettes alcohol intake: never substance use type: does not use caffeine: Yes Physical Exam Const alert, oriented x3 and no apparent distress HEENT normocephalic, head/scalp atraumatic and external nose normal Eyes EOMs intact bilaterally General Eye: normal appearance of both eyes Neck General: normal visual inspection Chest Chest Narrative: R proximal chest wall just inferior to clavicle with large focal swelling which is soft to palpation throughout; skin overlying the area is intact Resp normal respiratory effort and no retractions Effort and Inspection: able to speak in complete sentences Cardio Rate: regular rate Rhythm: regular rhythm Skin no rashes or lesions noted Neuro Speech: speech normal Psych mental status grossly normal Lab / Micro Data 11/19/24 07:04 11/19/24 07:04 Labs: Laboratory Results - last 24 hr 11/18/24 21:00: WBC 13.9 H, RBC 6.01 H, Hgb 18.9 H*, Hct 55.1 H, MCV 91.7, MCH 31.4, MCHC 34.3, RDW Std Deviation 44.1 H, RDW Coeff of Panchito 13.0, Plt Count 390,MPV 10.6, Immature Gran % (Auto) 0.800, Neut % (Auto) 55.3, Lymph % (Auto) 35.6,Sebastian % (Auto) 4.5, Eos % (Auto) 2.9, Baso % (Auto) 0.9, Absolute Neuts (auto) 7.7, Absolute Lymphs (auto) 4.95 H, Nucleated RBC % 0, PT 15.7 H, INR 1.2, APTT 32.1, Sodium 134, Potassium 4.0, Chloride 98, Carbon Dioxide 17.7 L, Anion Gap 18 H, BUN 17, Creatinine 1.36 H, Estim Creat Clear Calc 39.22 L, Est GFR (MDRD) Non-Af 44 L, BUN/Creatinine Ratio 12.4, Glucose 316 H, Calcium 10.0, Total Bilirubin 0.53, AST 64 H, ALT 38 H, Alkaline Phosphatase 115 H, Troponin T High Sens 11, Total Protein 6.8, Albumin 3.9, Globulin 2.9, Albumin/Globulin Ratio 1.3, b-Hydroxybutyric mmol/L 0.2, TSH 16.900 H, Cortisol PM Sample 35.80 H 11/18/24 21:08: Lactic Acid 3.0 H* 11/18/24 21:42: Urine Color Yellow, Urine Clarity Clear, Urine pH 6.0, Ur Specific [place] 1.015, Urine Protein 100 H, Urine Glucose (UA) Normal, Urine Ketones Negative, Urine Occult Blood 10 H, Urine Nitrite Negative, Urine Bilirubin 6 H, Urine Urobilinogen Normal, Ur Leukocyte Esterase 25 H, Urine RBC 0-5 SEEN, Urine WBC 0-5 SEEN, Ur Squamous Epith Cells 0-5 SEEN, Urine Bacteria 0SEEN, Urine Mucus 0 SEEN 11/18/24 23:16: Troponin T Hi Sens 2 Hr 15 H 11/19/24 01:24: Troponin T Hi Sens 4Hr 22 H 11/19/24 02:10: D-Dimer Quant (PE/DVT) > 20.00 H*, Hemoglobin A1c 6.1 H, Lactic Acid 2.1 H*, Magnesium 2.6 H, Free T4 0.90, Free T3 pg/dL 2.4 11/19/24 07:02: POC Glucose 223 H 11/19/24 07:04: WBC 21.4 H, RBC 4.00 L, Hgb 12.6, Hct 37.1, MCV 92.8, MCH 31.5, MCHC 34.0, RDW Std Deviation 45.2 H, RDW Coeff of Panchito 13.2, Plt Count 276, MPV 9.7, Immature Gran % (Auto) 0.600, Neut % (Auto) 90.7 H, Lymph % (Auto) 3.5 L, Sebastian % (Auto) 4.9, Eos % (Auto) 0.1, Baso % (Auto) 0.2, Absolute Neuts (auto) 19.5 H, Absolute Lymphs (auto) 0.75 L, Nucleated RBC % 0, Sodium 135, Potassium 4.4, Chloride 109 H, Carbon Dioxide 14.8 L, Anion Gap 12, BUN 25 H, Creatinine 1.57 H, Estim Creat Clear Calc 33.79 L, Est GFR (MDRD) Non-Af 37 L, BUN/Creatinine Ratio 15.9, Glucose 258 H, Lactic Acid 2.7 H*, Calcium 7.3 L, Phosphorus 5.1 H, Total Bilirubin 0.45, AST 56 H, ALT 45 H, Alkaline Phosphatase 64, Total Protein 4.5 L, Albumin 2.7 L, Globulin 1.8 L, Albumin/Globulin Ratio 1.5, Triglycerides 56, Cholesterol 71, LDL Cholesterol, Calc 27, VLDL Cholesterol 11, HDL Cholesterol 33 L, Cholesterol/HDL Ratio 2.13 Micro: Microbiology 11/19/24 08:25 Nasal Secretion MRSA (PCR) - Final 11/19/24 04:03 Mucosa - Nasopharyngeal Respiratory Panel (PCR) - Final 11/18/24 21:04 Mucosa - Nose SARS-CoV-2, Influenza & RSV (PCR) - Final ABG Data ABG results: ABG 11/18/24 11/19/24 21:07 04:24 Specimen Type ART ART Sample Site L Radial L Radial pH 7.30 L 7.30 L Bicarbonate Actual 13.1 L 14.9 L Total CO2 14 16 Base Excess -13 L -12 L O2 Saturation 100 H 95 O2 % 6.0 ABG pCO2 26.6 L 30.4 L ABG pO2 504 H* 81 Nayana Test N/A Positive O2 Delivery Device Cannula Room Air Vent Mode Not entered Not entered Crit Call To/Read Back Yes Blood Gas Notified Whom Dr Marques Blood Gas Notified Time 21:09:37 Imaging Radiology Impression Chest X-Ray 11/18/24 20:50 IMPRESSION: No acute cardiopulmonary disease. Reading Location: [facility] Chest X-Ray 11/18/24 22:34 IMPRESSION: Left subclavian central venous catheter with tip at the lower SVC. Unchanged lung aeration. No pneumothorax or sizable pleural effusion. Reading Location: [facility] Chest CTA 11/18/24 22:41 IMPRESSION: No CT evidence of a pulmonary embolism. Mild chronic fibroemphysematous pulmonary changes, as described above. Mediastinal lymphadenopathy. Soft tissue thickening in the bilateral hilar regions may represent hilar lymphadenopathy or peribronchial infiltrates. Please correlate clinically for bronchitis. Moderate thoracic spondylosis with mild dextro convex scoliosis. Reading Location: [facility] Abdomen/Pelvis CT 11/19/24 00:03 IMPRESSION: 1. Abrupt narrowing of the proximal sigmoid colon with a short segment of wall thickening. This could represent focal colitis or a mucosal mass lesion. 2. Mild wall thickening of the duodenum with mild adjacent fat stranding, concerning for duodenitis. 3. Mild dilatation of the large and small bowel proximal to the focal narrowingin the proximal sigmoid colon, which could represent a low-grade partial small bowel obstruction. 4. Large amount of stool within the distal sigmoid colon and rectum. 5. Small hiatal hernia. 6. Moderate to severe thoracolumbar spondylosis with mild lumbar scoliosis. Reading Location: [facility] Echocardiogram 11/19/24 02:04 Interpretation Summary Technically difficult study with suboptimal images. Mild concentric left ventricular hypertrophy. The left ventricular ejection fraction is 65 %. Stage 1 diastolic dysfunction. Ordering Physician: Romeo Khan Referring Physician: LULU SWANSON Performed By: Agnieszka Brenner RCS Chest CT 11/19/24 03:46 IMPRESSION: Coronary artery calcification (CAC) is is present Acute soft tissue hematoma is noted underlying the right pectoralis muscle in the interim measuring 3.9 x 8.4 x 9.1 cm in its largest anteroposterior, transverse and craniocaudal dimensions respectively. Secondary mild displacement and edema of the right pectoralis muscle. Mild surrounding soft tissue edema. Unchanged mild bilateral basilar pleural thickening/effusions. Unchanged minimal bilateral basilar atelectatic pulmonary changes. Unchanged emphysema/chronic interstitial thickening. Unchanged mildly enlarged mediastinal lymph nodes with the largest measuring 1.2cm. Chronic deformity of the axillary portion of the right 6th rib, unchanged. Reading [facility] Charges/Coding Visit Charges Inpatient E&M: 23857 Init Hosp L1 11/19/24 1640 <Electronically signed by Elizabeth BURGOS> Cosigner Signature (if applicable): 11/22/24 1241 <Electronically signed by Alejandro Pool MD> CC: CB Swanson~ Signed [facility] Work Phone: Consult note Author Ej Brown [facility] Note Date/Time November 19, 2024 5 :31pm [facility] Medical Records Department [address] [place] [address] Consultation - Surgical 11/19/24 1704 MR#: [id number] Acct: [id number] Name: DAVID ALDRICH Rep #:[id number] : 1960 64 From: Ej Munguia PCP: CB Landaverde Status:ADM I N Location: ICU CVICU20 3-[address] Ej Brown MD on 11/19/24 [address] read by radiology confirms my independent review that CT does not demonstrate any evidence for a bowel obstruction. Further, there is no narrowing of the colon, however, there is evidence of colonic wall thickening?particularly distally. This is suggestive of colitis and in light ofpatient's recent hypotension could represent an element of ischemic colitis. The absence of any signs of bowel obstruction and patient's reports for both bowel function as well as an appetite I recommend resuming a diet starting with a clear liquid diet once permissible by all involved service lines/parties in patient's care. Will continue to follow for tolerance as well as serial abdominal exams. Please keep surgery updated with any new clinical developments. 10/10/25 1731<Electronically signed by Ej Brown MD> Cosigner Signature (if applicable): cc: CB Coburntatiana Mercadohenrietta ~* Signed Assessment & Plan Assessment/Plan (1) Abnormal CT scan, colon: PLAN: Patient is 64-year-old female admitted to the ICU yesterday with concern for sepsis after a presentation with chest pain and significant shortness of breath. Additionally, CT imaging was completed showing concern for possible small bowel obstruction as well as a "abrupt" transition of the sigmoid colon concerning for possible "focal colitis". Patient denies any significant antecedent history and appears up-to-date, but due for colonoscopy. Further, she denies any present nausea or vomiting is actually requesting a diet. Despite this reassuring her history she does complain of some significant tenderness on exam with palpation of the epigastrium. Therefore, it is my recommendation to follow-up earlier CT findings with enteric contrast and have requested per rectal contrast administration as well to provide better definition on the sigmoid colon region. Would keep patient n.p.o. until resultsof CAT scan are known and further recommendations can be made. In the interim Ihave been contacted by vascular surgery out of concerns to perform additional CTangiography for possible vascular injury from central line placement. I have urged them to take first priority with patient's workup. CT imaging remains pending at this time. Ej Brown MD General Surgery Endocrine Surgery Pager: [facility] [address] [place] [address], [address] [place] [address] Office: [phone] HPI Consult Data Date of Consult: 11/19/24 HPI Narrative Reason for Consultation: Intake evidence of partial small bowel obstruction and/or possible colon le HPI Narrative: DAVID ALDRICH, is a 64 F who presented to [facility] yesterday withcomplaints of chest pain and shortness of breath. As part of her workup imagingwas performed with CT of the abdomen pelvis showing IMPRESSION: 1. Abrupt narrowing of the proximal sigmoid colon with a short segment of wall thickening. This could represent focal colitis or a mucosal mass lesion. 2. Mild wall thickening of the duodenum with mild adjacent fat stranding, concerning for duodenitis. 3. Mild dilatation of the large and small bowel proximal to the focal narrowingin the proximal sigmoid colon, which could represent a low-grade partial small bowel obstruction. 4. Large amount of stool within the distal sigmoid colon and rectum. 5. Small hiatal hernia. 6. Moderate to severe thoracolumbar spondylosis with mild lumbar scoliosis. General surgery was asked to further evaluate. Upon arrival to patient's room in the ICU she states that she is now feeling great and wishes for permission to begin a diet. She denies any abdominal pain. She shares that she had 1 formed bowel movement as well as 1 loose bowel movement today. She denies noting any frankly bloody or dark stools. She denies any present nausea or vomiting. She does endorse some recent constipation. She states she had a colonoscopy approximately [address] Lanza and is under the impression that she is now "due". She denies any history of polyps. She denies any family history of diverticulitis, inflammatory bowel disease, or colon cancer. Patient's only prior abdominal surgical procedure was an appendectomy as a child. [facility] Medical History Nicotine use disorder Septic arthritis Elevated coronary artery calcium score Neck pain Bilateral carotid artery stenosis Snoring Peripheral arterial disease Fatty liver disease, nonalcoholic Major depressive disorder, recurrent episode Bradycardia Palpitations SOB (shortness of breath) Diabetic acetonemia COPD (chronic obstructive pulmonary disease) Hyperlipidemia Home Medications ?Medication ?Instructions ?Recorded ?Last Taken ?Type atorvastatin 20 mg tablet 20 mg PO QHS 12/22/17 Unknow n History lisinopril 5 mg tablet 5 mg PO DAILY 12/22/17 Unkno wn History metformin 500 mg tablet 500 mg PO DAILY 12/22/17 Unk nown History aspirin 81 mg tablet,delayed 81 mg PO QDAY 01/14/24 Un known History release (Adult Aspirin Regimen) bupropion HCl 150 mg tablet,12 hr 150 mg PO BID Unknown History sustained-release (Wellbutrin SR) buspirone 5 mg tablet 5 mg PO TID 01/14/24 Unknown History cyclobenzaprine 5 mg tablet 5 mg PO TID PRN 01/14/24 U nknown History fluticasone fur. 100 mcg-umeclid 1 inh inhalation QDAY 01/14/24 Unknown History 62.5 mcg-vilant 25 mcg inhalat.powder (Trelegy Ellipta) ibuprofen 800 mg tablet 800 mg PO Q8H PRN 01/14/24 U nknown History imipramine HCl 50 mg tablet 150 mg PO QHS 01/14/24 Unk nown History ondansetron HCl 4 mg tablet 4 mg PO Q8H PRN 01/14/24 U nknown History thiothixene 2 mg capsule 2 mg PO BID 01/14/24 Unknown History zolpidem 10 mg tablet (Ambien) 10 mg PO QHS PRN sleep 01/14/24 Unknown History melatonin 5 mg capsule mg PO PRN 01/21/24 Unknown H istory pantoprazole 40 mg tablet,delayed 40 mg PO DAILY #90 t abs 03/26/24 Unknown Rx release Allergy/AdvReac Type Severity Reaction Status Date / Time simvastatin Allergy Other Verified 11/18/24 21:07 Family History Mother Heart disease Father Diabetes Brother Parkinson's disease Surgical History History of arthroscopy of knee History of colonoscopy History of rectal polypectomy History of cardiac catheterization H/O carotid endarterectomy History of appendectomy Social History household members: children Smoking Status: Current every day smoker tobacco type: cigarettes alcohol intake: never substance use type: does not use caffeine: Yes Physical Exam Const alert, oriented x3 and no apparent distress Resp normal respiratory effort GI GI Narrative: Mildly distended, soft, reports moderate tenderness (rated 8 out of 10) to palpation in the upper abdomen. Nontender to palpation in lower abdomen Lab / Micro Data 11/19/24 07:04 11/19/24 07:04 Labs: Laboratory Results - last 24 hr 11/18/24 21:00: WBC 13.9 H, RBC 6.01 H, Hgb 18.9 H*, Hct 55.1 H, MCV 91.7, MCH 31.4, MCHC 34.3, RDW Std Deviation 44.1 H, RDW Coeff of Panchito 13.0, Plt Count 390,MPV 10.6, Immature Gran % (Auto) 0.800, Neut % (Auto) 55.3, Lymph % (Auto) 35.6,Sebastian % (Auto) 4.5, Eos % (Auto) 2.9, Baso % (Auto) 0.9, Absolute Neuts (auto) 7.7, Absolute Lymphs (auto) 4.95 H, Nucleated RBC % 0, PT 15.7 H, INR 1.2, APTT 32.1, Sodium 134, Potassium 4.0, Chloride 98, Carbon Dioxide 17.7 L, Anion Gap 18 H, BUN 17, Creatinine 1.36 H, Estim Creat Clear Calc 39.22 L, Est GFR (MDRD) Non-Af 44 L, BUN/Creatinine Ratio 12.4, Glucose 316 H, Calcium 10.0, Total Bilirubin 0.53, AST 64 H, ALT 38 H, Alkaline Phosphatase 115 H, Troponin T High Sens 11, Total Protein 6.8, Albumin 3.9, Globulin 2.9, Albumin/Globulin Ratio 1.3, b-Hydroxybutyric mmol/L 0.2, TSH 16.900 H, Cortisol PM Sample 35.80 H 11/18/24 21:08: Lactic Acid 3.0 H* 11/18/24 21:42: Urine Color Yellow, Urine Clarity Clear, Urine pH 6.0, Ur Specific [place] 1.015, Urine Protein 100 H, Urine Glucose (UA) Normal, Urine Ketones Negative, Urine Occult Blood 10 H, Urine Nitrite Negative, Urine Bilirubin 6 H, Urine Urobilinogen Normal, Ur Leukocyte Esterase 25 H, Urine RBC 0-5 SEEN, Urine WBC 0-5 SEEN, Ur Squamous Epith Cells 0-5 SEEN, Urine Bacteria 0SEEN, Urine Mucus 0 SEEN 11/18/24 23:16: Troponin T Hi Sens 2 Hr 15 H 11/19/24 01:24: Troponin T Hi Sens 4Hr 22 H 11/19/24 02:10: D-Dimer Quant (PE/DVT) > 20.00 H*, Hemoglobin A1c 6.1 H, Lactic Acid 2.1 H*, Magnesium 2.6 H, Free T4 0.90, Free T3 pg/dL 2.4 11/19/24 07:02: POC Glucose 223 H 11/19/24 07:04: WBC 21.4 H, RBC 4.00 L, Hgb 12.6, Hct 37.1, MCV 92.8, MCH 31.5, MCHC 34.0, RDW Std Deviation 45.2 H, RDW Coeff of Panchito 13.2, Plt Count 276, MPV 9.7, Immature Gran % (Auto) 0.600, Neut % (Auto) 90.7 H, Lymph % (Auto) 3.5 L, Sebastian % (Auto) 4.9, Eos % (Auto) 0.1, Baso % (Auto) 0.2, Absolute Neuts (auto) 19.5 H, Absolute Lymphs (auto) 0.75 L, Nucleated RBC % 0, Sodium 135, Potassium 4.4, Chloride 109 H, Carbon Dioxide 14.8 L, Anion Gap 12, BUN 25 H, Creatinine 1.57 H, Estim Creat Clear Calc 33.79 L, Est GFR (MDRD) Non-Af 37 L, BUN/Creatinine Ratio 15.9, Glucose 258 H, Lactic Acid 2.7 H*, Calcium 7.3 L, Phosphorus 5.1 H, Total Bilirubin 0.45, AST 56 H, ALT 45 H, Alkaline Phosphatase 64, Total Protein 4.5 L, Albumin 2.7 L, Globulin 1.8 L, Albumin/Globulin Ratio 1.5, Triglycerides 56, Cholesterol 71, LDL Cholesterol, Calc 27, VLDL Cholesterol 11, HDL Cholesterol 33 L, Cholesterol/HDL Ratio 2.13 11/19/24 12:57: POC Glucose 180 H Micro: Microbiology 11/19/24 08:25 Nasal Secretion MRSA (PCR) - Final 11/19/24 04:03 Mucosa - Nasopharyngeal Respiratory Panel (PCR) - Final 11/18/24 21:04 Mucosa - Nose SARS-CoV-2, Influenza & RSV (PCR) - Final ABG Data ABG results: ABG 11/18/24 11/19/24 21:07 04:24 Specimen Type ART ART Sample Site L Radial L Radial pH 7.30 L 7.30 L Bicarbonate Actual 13.1 L 14.9 L Total CO2 14 16 Base Excess -13 L -12 L O2 Saturation 100 H 95 O2 % 6.0 ABG pCO2 26.6 L 30.4 L ABG pO2 504 H* 81 Nayana Test N/A Positive O2 Delivery Device Cannula Room Air Vent Mode Not entered Not entered Crit Call To/Read Back Yes Blood Gas Notified Whom Dr Marques Blood Gas Notified Time 21:09:37 Imaging Radiology Impression Chest X-Ray 11/18/24 20:50 IMPRESSION: No acute cardiopulmonary disease. Reading Location: [facility] Chest X-Ray 11/18/24 22:34 IMPRESSION: Left subclavian central venous catheter with tip at the lower SVC. Unchanged lung aeration. No pneumothorax or sizable pleural effusion. Reading Location: [facility] Chest CTA 11/18/24 22:41 IMPRESSION: No CT evidence of a pulmonary embolism. Mild chronic fibroemphysematous pulmonary changes, as described above. Mediastinal lymphadenopathy. Soft tissue thickening in the bilateral hilar regions may represent hilar lymphadenopathy or peribronchial infiltrates. Please correlate clinically for bronchitis. Moderate thoracic spondylosis with mild dextro convex scoliosis. Reading Location: [facility] Abdomen/Pelvis CT 11/19/24 00:03 IMPRESSION: 1. Abrupt narrowing of the proximal sigmoid colon with a short segment of wall thickening. This could represent focal colitis or a mucosal mass lesion. 2. Mild wall thickening of the duodenum with mild adjacent fat stranding, concerning for duodenitis. 3. Mild dilatation of the large and small bowel proximal to the focal narrowingin the proximal sigmoid colon, which could represent a low-grade partial small bowel obstruction. 4. Large amount of stool within the distal sigmoid colon and rectum. 5. Small hiatal hernia. 6. Moderate to severe thoracolumbar spondylosis with mild lumbar scoliosis. Reading Location: [facility] Echocardiogram 11/19/24 02:04 Interpretation Summary Technically difficult study with suboptimal images. Mild concentric left ventricular hypertrophy. The left ventricular ejection fraction is 65 %. Stage 1 diastolic dysfunction. Ordering Physician: Romeo Khan Referring Physician: LULU SWANSON Performed By: Agnieszka Brenner RCS Chest CT 11/19/24 03:46 IMPRESSION: Coronary artery calcification (CAC) is is present Acute soft tissue hematoma is noted underlying the right pectoralis muscle in the interim measuring 3.9 x 8.4 x 9.1 cm in its largest anteroposterior, transverse and craniocaudal dimensions respectively. Secondary mild displacement and edema of the right pectoralis muscle. Mild surrounding soft tissue edema. Unchanged mild bilateral basilar pleural thickening/effusions. Unchanged minimal bilateral basilar atelectatic pulmonary changes. Unchanged emphysema/chronic interstitial thickening. Unchanged mildly enlarged mediastinal lymph nodes with the largest measuring 1.2cm. Chronic deformity of the axillary portion of the right 6th rib, unchanged. Reading Location: [place] [address] Charges/Coding Visit Charges Inpatient E&M: 26151 Init Hosp L2 11/19/24 1713 <Electronically signed by Ej Brown MD> Cosigner Signature (if applicable): CC: PROCESS OPERATOR-C Lulu Swanson~ Signed [facility] Work Phone: Consult note Author [facility] Note Date/Time November 20, 2024 6 :04pm [facility] Medical Records Department [address] [place] [address] Consultation - Sap Bi Architect 11/20/24 175 MR#: [id number] Acct: [id number] Name: DAVID ALDRICH Codi Rep #:[id number] : 1960 64 From: Alvin Munguia PCP: CB Landaverde Status:ADM I N Location: ICU CVICU20 3-1 HPI Consult Data Date of Consult: 11/20/24 HPI Narrative HPI Narrative: DAVID ALDRICH, is a 64 F who presents [ ] [facility] Medical History Nicotine use disorder Septic arthritis Elevated coronary artery calcium score Neck pain Bilateral carotid artery stenosis Snoring Peripheral arterial disease Fatty liver disease, nonalcoholic Major depressive disorder, recurrent episode Bradycardia Palpitations SOB (shortness of breath) Diabetic acetonemia COPD (chronic obstructive pulmonary disease) Hyperlipidemia Home Medications ?Medication ?Instructions ?Recorded ?Last Taken ?Type atorvastatin 20 mg tablet 20 mg PO QHS 12/22/17 Unknow n History lisinopril 5 mg tablet 5 mg PO DAILY 12/22/17 Unkno wn History metformin 500 mg tablet 500 mg PO DAILY 12/22/17 Unk nown History aspirin 81 mg tablet,delayed 81 mg PO QDAY 01/14/24 Un known History release (Adult Aspirin Regimen) bupropion HCl 150 mg tablet,12 hr 150 mg PO BID Unknown History sustained-release (Wellbutrin SR) buspirone 5 mg tablet 5 mg PO TID 01/14/24 Unknown History cyclobenzaprine 5 mg tablet 5 mg PO TID PRN 01/14/24 U nknown History fluticasone fur. 100 mcg-umeclid 1 inh inhalation QDAY 01/14/24 Unknown History 62.5 mcg-vilant 25 mcg inhalat.powder (Trelegy Ellipta) ibuprofen 800 mg tablet 800 mg PO Q8H PRN 01/14/24 U nknown History imipramine HCl 50 mg tablet 150 mg PO QHS 01/14/24 Unk nown History ondansetron HCl 4 mg tablet 4 mg PO Q8H PRN 01/14/24 U nknown History thiothixene 2 mg capsule 2 mg PO BID 01/14/24 Unknown History zolpidem 10 mg tablet (Ambien) 10 mg PO QHS PRN sleep 01/14/24 Unknown History melatonin 5 mg capsule mg PO PRN 01/21/24 Unknown H istory pantoprazole 40 mg tablet,delayed 40 mg PO DAILY #90 t abs 03/26/24 Unknown Rx release Allergy/AdvReac Type Severity Reaction Status Date / Time simvastatin Allergy Other Verified 11/18/24 21:07 Family History Mother Heart disease Father Diabetes Brother Parkinson's disease Surgical History History of arthroscopy of knee History of colonoscopy History of rectal polypectomy History of cardiac catheterization H/O carotid endarterectomy History of appendectomy Social History household members: children Smoking Status: Current every day smoker tobacco type: cigarettes alcohol intake: never substance use type: does not use caffeine: Yes Objective Data Objective Data Vital Signs: Vital Signs Last response 3 Temperature 37.7 C H 11/20/24 16:00 Temperature Source Temporal 11/20/24 16:00 Pulse Rate 101 H 11/20/24 17:00 Pulse Strength Normal (2+) 11/20/24 10:00 Respiratory Rate 25 H 11/20/24 17:00 Respiratory Effort Normal, Non-Labored 11/20/24 16:00 Respiratory Depth Normal 11/20/24 16:00 Respiratory Pattern Tachypnea 11/20/24 16:00 Blood Pressure 150/66 H 11/20/24 17:00 Blood Pressure Mean 94 11/20/24 17:00 Blood Pressure Source Monitor 11/20/24 17:00 Blood Pressure Position Semi-Fowlers 11/20/24 17:00 Blood Pressure Location Right Arm 11/20/24 17:00 Pulse Ox 91 11/20/24 17:00 Oxygen Delivery Method Room Air 11/20/24 17:00 Oxygen Flow Rate (L/min) 2 11/18/24 22:45 Fraction of Inspired Oxygen (FIO2) 28 11/18/24 21:15 I&O: I&O Last 24 Hours 3 11/19/24 11/20/24 11/20/24 23:59 11:59 23:59 Intake Total 1656.20 / 3174.27 137.40 / 137.40 0 / 137.40 Output Total 155 / 2025 550 / 1700 1150 / 1700 Balance 106.20 / 1149.27 -412.60 / -1562.60 -1150 / -1562.60 I&O: Total Stay 3 11/18/24 20:33 thru 11/20/24 17:00 Intake Total 6340.62 Output Total 3725 Balance 2615.62 Current Meds Ordered / Administered: Current meds ordered / Administered 3 Generic Name Dose Route Start Last Admin Trade Name Freq PRN Reason Stop Dose Admin Albuterol Sulfate 2.5 mg 11/19/24 02:04 Albuterol 2.5 Mg/3 Ml Vial.Neb. INHALATION Q2H PRN PRN SOB &/OR WHEEZING Enoxaparin Sodium 40 mg 11/19/24 10:00 11/19/24 10:10 Enoxaparin 40 Mg/0.4 Ml Syringe SC 40 mg On Hold: 11/19/24 13:57 DAILY AARON Administration Glucagon 1 mg 11/19/24 02:04 Glucagon 1 Mg/Ml Syringe IM X1 PRN HYPOGLYCEMIA Protocol Sodium Chloride 1,000 mls @ 15 mls/hr 11/18/24 23:15 11/19/24 20:53 IV 0 mls/hr .Q48H AARON Infusion Norepinephrine Bitartrate 8 mg 250 mls @ 9.375 mls/hr 11/18/24 22:00 11/20/2516:00 / Sodium Chloride CONT INF 0 mcg/min .[id number] AARON 0 mls/hr Protocol Titration 5 MCG/MIN Piperacillin Sod/Tazobactam 50 mls @ 12.5 mls/hr 11/19/24 02:04 11/20/24 14:38 Sod 3.375 gm/ Sodium Chloride IV 12.5 mls/hr Q8 AARON Administration Azithromycin 500 mg/ Sodium 250 mls @ 250 mls/hr 11/19/24 02:04 11/19/24 21:31 Chloride IV Infused 2200 AARON Infusion Pantoprazole Sodium 40 mg/ 100 mls @ 330 mls/hr 11/19/24 02:04 11/19/24 20:54 Sodium Chloride IV Infused 2200 AARON Infusion Dextrose 250 mls @ 0 mls/hr 11/19/24 02:04 Dextrose 10%-Water IV .Q0M PRN HYPOGLYCEMIA Protocol As Directed Sodium Chloride 250 mls @ 15 mls/hr 11/19/24 20:20 11/20/24 09:12 IV 15 mls/hr .[id number] PRN Infusion Saline Flush Sodium Chloride 250 mls @ 15 mls/hr 11/19/24 20:20 IV .[id number] PRN Additional IVPB Infusion Insulin Human Lispro 0 unit 11/19/24 06:00 11/20/24 16:53 Insulin Lispro 100 Unit/Ml Insuln.Pen SC Not Given Q6 AARON Protocol Levothyroxine Sodium 25 mcg 11/19/24 10:00 11/20/24 10:39 Levothyroxine Sodium 100 Mcg Vial IV 25 mcg DAILY AARON Administration Methylprednisolone Sodium Succinate 40 mg 11/19/24 14:00 11/20/24 14:38 Methylprednisolone Sod Succ 40 Mg/Ml Vial IV 40 mg Q8 AARON Administration Nicotine 14 mg 11/19/24 10:00 11/20/24 10:39 Nicotine (Pbkc) 14 Mg Patch TD 14 mg DAILY AARON Administration Ondansetron HCl 4 mg 11/19/24 02:04 Ondansetron 4 Mg/2 Ml Vial IV Q6H PRN PRN NAUSEA/VOMITING Sodium Chloride 10 - 40 ml 11/19/24 02:11 11/20/24 10:40 0.9% Saline Lock 10 Ml Syringe IV 40 ml UD PRN Administration SALINE FLUSH Sodium Chloride 10 - 40 ml 11/19/24 20:20 0.9% Saline Lock 10 Ml Syringe IV UD PRN SALINE FLUSH Lab / Micro Data 11/20/24 05:30 11/20/24 05:30 Labs: Laboratory Results - last 24 hr 11/19/24 18:32: POC Glucose 142 H 11/20/24 05:06: POC Glucose 143 H 11/20/24 05:30: WBC 17.8 H, RBC 3.18 L, Hgb 10.2 L, Hct 28.7 L, MCV 90.3, MCH 32.1 H, MCHC 35.5, RDW Std Deviation 45.4 H, RDW Coeff of Pnachito 13.6, Plt Count 192, MPV 9.8, Immature Gran % (Auto) 0.300, Neut % (Auto) 86.5 H, Lymph % (Auto)3.9 L, Sebastian % (Auto) 9.1, Eos % (Auto) 0.0, Baso % (Auto) 0.2, Absolute Neuts (auto) 15.4 H, Absolute Lymphs (auto) 0.70 L, Nucleated RBC % 0, Differential Comment , Toxic Vacuolation 1+, Platelet Estimate ADEQUATE, RBC Morphology NORM C+C, Sodium 134, Potassium 3.9, Chloride 106, Carbon Dioxide 15.2 L, Anion Gap 13, BUN 27 H, Creatinine 1.29 H, Estim Creat Clear Calc 41.43 L, Est GFR (MDRD) Non-Af 47 L, BUN/Creatinine Ratio 20.9 H, Glucose 157 H, Calcium 7.8 11/20/24 12:01: POC Glucose 123 H 11/20/24 16:51: POC Glucose 112 H Assessment and Plan . Assessment and plan: 64 yo obese female smoker admitted 11/19/24 w/ CP and dyspnea. Noted hypotension in ED requiring IVF and NE infusion CTA chest reveals emphysema but o/w unremarkable. CT A/P reveals e/o transverseand descending colitis. Lab significant for unremarkable LA. Modest leukocytosis. CX NGTD. She has received empiric IV ABX. Course also c/b CW hematoma following attempts at CVC She is currently breathing RA comfortably. BP WNL - NE has been weaned off. She is tolerating liquids po - still c/o some modest LAP Exam is largely unremarkable. No obvious wheezes, abdomen is soft and benign IMPRESSION 1. Suspected sepsis syndrome - improving 2. Suspected colitis 3. Tobacco use / emphysema 4. ASCVD 5. Chest wall hematoma - iatrogenic REC -empiric ABX -inhaled BD -would wean steroids off quickly -hold A/C for now -consider GI v CRS consultation We are available as needed. The entirety of this encounter was done via Telemedicine 11/20/241803 <Electronically signed by Alvin Duran MD> Cosigner Signature (if applicable): CC: CB Swanson~ Signed [facility] Work Phone: Consult note Author Barbara Montoya [facility] Note Date/Time November 23, 2024 4 :30pm [facility] Medical Records Department [address] [place] [id number] Counseling Note - Pharmacy 11/23/24 1628 MR#: [id number] Acct: [id number] Name: DAVID ALDRICH Rep #:[id number] : 1960 64 From: Barbara Montoya PCP: CB Landaverde Status:ADM I N Y Location: [place] [address] Pharmacy [place] Med Reconciliation Pharmacy Service has performed discharge medication reconciliation for this patient. Patient in precautions, did not senior counsel. Upon initial review of discharge, levothyroxine was not started as a new medication for home but it was started in the hospital. Contacted Dr. Mina, he entered a new prescription fordischarge. ZACH RAMIREZ updated to new medication. The patient's discharge medication list was reviewed for discrepancies and discrepancies were resolved. Medications at Discharge Home Medications atorvastatin 20 mg tablet 20 mg PO QHS cholesterol 12/22/17 lisinopril 5 mg tablet 5 mg PO DAILY blood pressure 12/22/17 metformin 500 mg tablet 500 mg PO DAILY diabetes 12/22/17 aspirin 81 mg tablet,delayed release (Adult Aspirin Regimen) 81 mg PO QDAY [facility] 01/14/24 bupropion HCl 150 mg tablet,12 hr sustained-release (Wellbutrin SR) 150 mg PO BID 01/14/24 buspirone 5 mg tablet 5 mg PO TID 01/14/24 cyclobenzaprine 5 mg tablet 5 mg PO TID PRN 01/14/24 fluticasone fur. 100 mcg-umeclid 62.5 mcg-vilant 25 mcg inhalat.powder (Trelegy Ellipta) 1 inh inhalation QDAY 01/14/24 ibuprofen 800 mg tablet 800 mg PO Q8H PRN 01/14/24 imipramine HCl 50 mg tablet 150 mg PO QHS depression 01/14/24 ondansetron HCl 4 mg tablet 4 mg PO Q8H PRN 01/14/24 thiothixene 2 mg capsule 2 mg PO BID 01/14/24 zolpidem 10 mg tablet (Ambien) 10 mg PO QHS PRN sleep 01/14/24 melatonin 5 mg capsule mg PO PRN 01/21/24 albuterol sulfate 90 mcg/actuation aerosol inhaler (Ventolin HFA) 2 puff inhalation Q6H PRN shortness of breath or wheezing #8.5 grams 11/23/24 amoxicillin 875 mg-potassium clavulanate 125 mg tablet 1 tab PO BID #20 tabs 11/23/24 guaifenesin 600 mg tablet, extended release 12 hr (Mucinex) 1,200 mg (2 x 600 mg) PO BID 10 days #40 tabs 11/23/24 levothyroxine 25 mcg tablet 25 mcg PO DAILY@0600 #90 tabs 11/23/24 pantoprazole 40 mg tablet,delayed release 40 mg PO DAILY #60 tabs 11/23/24 prednisone 20 mg tablet 40 mg (2 x 20 mg) PO BREAKFAST 7 days #14 tabs 11/23/24 11/23/24 1630 <Electronically signed by Barbara Montoya> Date _ Barbara Montoya Cosigner Signature (if applicable): Date CC: ~ Signed [facility] Work Phone: Discharge summary Author Romeo Mina [facility] Note Date/Time November 23, 2024 3 :48pm [facility] Medical Records Department [address] [place] [address] Discharge Summary 11/23/24 0948 MR#: [id number] Acct: [id number] Name: DAVID ALDRICH Rep #:[id number] : 1960 64 From: Romeo Mina MD PCP: CB Landaverde Status:ADM I N Location: [place] [id number] Providers Date of Admission: 11/19/24 Primary Care Physician: CB Landaverde Consultations 11/19/24 04:21 Consult: General Surgery Routine Consulting Provider: Clay Rizzo Reason for Consult: Focal Colitis with ?mass in proximal sigmoid colon and suspected PSBO. EMERGENT Consult: No MD Notified: Yes Date Notified: 11/19/24 Time Notified: 09:37 Method of Notification: Verbal 11/19/24 04:58 Consult: Vascular Surgery Routine Consulting Provider: Alejandro Pool Reason for Consult: right chest hematoma EMERGENT Consult: No MD Notified: Yes Date Notified: 11/19/24 Time Notified: 09:41 Method of Notification: Answering Service 11/19/24 13:47 Consult: Sap Bi Architect / Pulmonary Medicine Routine Consulting Provider: Intensivists/Pulmonary Med Reason for Consult: shock on levophed EMERGENT Consult: No MD Notified: Yes Date Notified: 11/19/24 Time Notified: 13:47 Method of Notification: Verbal 11/20/24 07:12 Consult: Sap Bi Architect / Pulmonary Medicine Routine Consulting Provider: Intensivists/Pulmonary Med Reason for Consult: shock, hemorrhagic EMERGENT Consult: No MD Notified: Yes Date Notified: 11/20/24 Time Notified: 08:46 Method of Notification: Verbal Reason For Visit: AE COPD, BRONCHITIS, RESP FAILURE & UNDIFFERENTIAT Diagnosis Discharge Diagnosis (1) Hematoma of right chest wall: Status: Acute Code(s): S20.211A - Contusion of right front wall of thorax, initial encounter Qualifiers: Encounter type: subsequent encounter Qualified Code(s): S20.211D - Contusion of right front wall of thorax, subsequent encounter (2) Duodenitis: Status: Acute Code(s): K29.80 - Duodenitis without bleeding (3) Acute respiratory failure: Status: Acute Code(s): J96.00 - Acute respiratory failure, unspecified whether with hypoxia or hypercapnia Qualifiers: Respiratory failure complication: unspecified whether with hypoxia or hypercapnia Qualified Code(s): J96.00 - Acute respiratory failure, unspecified whether with hypoxia or hypercapnia (4) Bronchitis: Status: Acute Code(s): J40 - Bronchitis, not specified as acute or chronic (5) Hypothyroidism: Status: Acute Code(s): E03.9 - Hypothyroidism, unspecified Qualifiers: Hypothyroidism type: unspecified Qualified Code(s): E03.9 - Hypothyroidism, unspecified Plan Patient is a 63-year-old lady who presented with shortness of breath and assessment of acute hypoxic respiratory failure secondary to COPD with acute exacerbation made started on noninvasive ventilation admitted to the intensive care unit stabilized and later transferred to PCU 1. Acute hypoxic respiratory failure ? Secondary to COPD with acute exacerbation. 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 Patient managed with broad-spectrum antibiotic therapy with Zosyn as well as Solu-Medrol. Patient was managed on noninvasive ventilation BiPAP which has since been weaned off ? 11/23/2024;Patient seen breathing improved. Plan is for patient to be assessed for home oxygen prior to discharge 2. Hemorrhagic shock ? Patient did develop huge hematoma in the pectoralis muscle following insertionof subclavian CVC. Patient was managed in the ICU with IV fluid as well as Levophed which has since been weaned off 3. Left upper chest hematoma ? Appears stable 4. Anemia ? Secondary to acute blood loss monitoring H&H and transfuse if patient becomes symptomatic or hemoglobin falls below 7 5.Polycythemia ? Which was present on admission with hemoglobin of 18.9 this was thought to be secondary to chronic hypoxia from COPD 6. Acute kidney injury ? Patient creatinine on admission was 1.36. At 1.57 down to 0.73 as of today 7. Acute colitis ? CT demonstrated abrupt narrowing of the proximal sigmoid colon with a short segment of wall thickening. This could represent focal colitis or a mucosal mass lesion. Plans for patient to follow-up with primary care physician to be referred for outpatient colonoscopy 8. Duodenitis ? On PPI 9. Hiatal hernia with GERD symptoms ? Patient is on PPI 10. Subclinical hypothyroidism ? Patient started on levothyroxine 11. Diabetes mellitus type 2 ? Patient is on metformin held on admission placed on Accu-Cheks ACHS with sliding scale coverage 12. Schizoaffective disorder -On thiothixene twice daily, buspirone 3 times daily, bupropion twice daily plusimipramine nightly. Held on admission and resumed 13. Dyslipidemia ?Patient is on statin therapy, continued at home dose 14. Peripheral arterial disease ? With history of right CEA 15. Essential hypertension ? Patient is on lisinopril held on admission given hypotension as well as worsening kidney function 16. Degenerative joint disease ? CT demonstrated Moderate to severe thoracolumbar spondylosis with mild lumbar scoliosis with mild dextroconvex scoliosis 17. Physical deconditioning ? Requested for PT OT eval and social media campaign manager to assist with discharge planning 18. Tobacco dependence ? Counseled on cessation, offered nicotine patch for tobacco cravings 19. DVT prophylaxis Bilateral SCDs Time spent in the patient's overall evaluation,decision-making process, review of diagnostic data, adjustment of management, discussion with other providers, nursing nursing and ancillary staff involved in patient's care documentation, 35 Minutes Medications at Discharge Home Medications atorvastatin 20 mg tablet 20 mg PO QHS cholesterol 12/22/17 lisinopril 5 mg tablet 5 mg PO DAILY blood pressure 12/22/17 metformin 500 mg tablet 500 mg PO DAILY diabetes 12/22/17 aspirin 81 mg tablet,delayed release (Adult Aspirin Regimen) 81 mg PO QDAY hearthealth 01/14/24 bupropion HCl 150 mg tablet,12 hr sustained-release (Wellbutrin SR) 150 mg PO BID 01/14/24 buspirone 5 mg tablet 5 mg PO TID 01/14/24 cyclobenzaprine 5 mg tablet 5 mg PO TID PRN 01/14/24 fluticasone fur. 100 mcg-umeclid 62.5 mcg-vilant 25 mcg inhalat.powder (Trelegy Ellipta) 1 inh inhalation QDAY 01/14/24 ibuprofen 800 mg tablet 800 mg PO Q8H PRN 01/14/24 imipramine HCl 50 mg tablet 150 mg PO QHS depression 01/14/24 ondansetron HCl 4 mg tablet 4 mg PO Q8H PRN 01/14/24 thiothixene 2 mg capsule 2 mg PO BID 01/14/24 zolpidem 10 mg tablet (Ambien) 10 mg PO QHS PRN sleep 01/14/24 melatonin 5 mg capsule mg PO PRN 01/21/24 pantoprazole 40 mg tablet,delayed release 40 mg PO DAILY #90 tabs 03/26/24 albuterol sulfate 90 mcg/actuation aerosol inhaler (Ventolin HFA) 2 puff inhalation Q6H PRN shortness of breath or wheezing #8.5 grams 11/23/24 amoxicillin 875 mg-potassium clavulanate 125 mg tablet 1 tab PO BID #20 tabs 11/23/24 guaifenesin 600 mg tablet, extended release 12 hr (Mucinex) 1,200 mg (2 x 600 mg) PO BID 10 days #40 tabs 11/23/24 pantoprazole 40 mg tablet,delayed release 40 mg PO DAILY #60 tabs 11/23/24 prednisone 20 mg tablet 40 mg (2 x 20 mg) PO BREAKFAST 7 days #14 tabs 11/23/24 Physical Exam Narrative GENERAL: cooperative HEENT: Atraumatic; normocephalic EYES; Anicteric, Normal Conjunctiva NECK; supple, normal thyroid, RESPIRATORY: Diminished to auscultation CARDIOVASCULAR: Regular S1 S2, GI: soft, normoactive bowel sounds, : No Renal angle tenderness; EXTREMITIES: No edema, no clubbing, MUSCULOSKELETAL: no muscle wasting NEURO: Awake; no lateralizing signs. SKIN: Extensive bruising left upper chest PSYCH; Flat affect Weight / BMI Weight Weight: 75.7 kg Body Mass Index (BMI) 31.5 ABG / Lab / Microbiology Data 11/23/24 04:42 11/23/24 04:42 Laboratory: Laboratory Results - last 24 hr 11/19/24 23:33: POC Glucose 160 H 11/22/24 16:34: POC Glucose 120 H 11/22/24 23:55: POC Glucose 151 H 11/23/24 04:42: WBC 12.4 H, RBC 3.33 L, Hgb 10.3 L, Hct 29.7 L, MCV 89.2, MCH 30.9, MCHC 34.7, RDW Std Deviation 44.1 H, RDW Coeff of Panchito 13.5, Plt Count 240,MPV 9.7, Immature Gran % (Auto) 3.500 H, Neut % (Auto) 79.0 H, Lymph % (Auto) 7.8 L, Sebastian % (Auto) 9.0, Eos % (Auto) 0.1, Baso % (Auto) 0.6, Absolute Neuts (auto) 9.8 H, Absolute Lymphs (auto) 0.97, Nucleated RBC % 0.2, Sodium 134, Potassium 3.5, Chloride 102, Carbon Dioxide 20.0 L, Anion Gap 11, BUN 18, Creatinine 0.60 L, Estim Creat Clear Calc 89.33, Est GFR (MDRD) Non-Af 101, BUN/Creatinine Ratio 29.6 H, Glucose 175 H, Calcium 8.2, Phosphorus 2.4 L, Magnesium 1.9 11/23/24 06:33: POC Glucose 159 H 11/23/24 11:34: POC Glucose 169 H Microbiology: Microbiology 11/23/24 09:43 Stool Clostridioides difficile (PCR) - Final 11/23/24 09:43 Stool Stool Occult Blood (EMMA) - Final Occult Blood Positive 11/18/24 21:40 Blood Culture (Wb) - Anticubital Right Blood Culture - Preliminary No growth in 48 hours. 11/18/24 21:10 Blood Culture (Wb) - Anticubital Left Blood Culture - Preliminary No growth in 48 hours. 11/19/24 08:25 Nasal Secretion MRSA (PCR) - Final 11/19/24 04:03 Mucosa - Nasopharyngeal Respiratory Panel (PCR) - Final 11/18/24 21:04 Mucosa - Nose SARS-CoV-2, Influenza & RSV (PCR) - Final D/C Instructions DC O2, CPAP, BIPAP Needs Home O2 Discharge instructions: No Meaningful Use Info Meaningful Use Meaningful Use Diagnoses (Choose all that apply): None applicable Discharge Plan Admission Admit Date/Time: 11/19/24 00:48 Attending Provider: Romeo Mina Primary Care Provider: Lulu Swanson NP Consulting Providers: Romeo Khan; Clay Rizzo; Familia Gupta; Fabrice Marte; Dustin Lizarraga; Lg Leong; Romeo James; Stefany Mg; Antonio Alvarez; Shelby Abel; Horace Pizarro; Malika Salvador; Cirilo Lopez; Pk Vargas; Orlando Haile; David Padilla; Luciana Guillermo; Kaur August; Dulce Basurto; Jameel Hou; Joseluis Rodriguez; Chelo Servin;Vesta Beavers; Edu Keenan; Raheem Cuevas; Bhargav Addison; Varun Tellez; Kathi Parmar; Joe Barragan; Shivani Ortiz; Juan Jimenez; Basim Flores; Liz Yang; Alvin Duran; Alejandro Pool; Kenny Pompa Discharge Orders/Prescriptions Prescriptions: New prednisone 20 mg Tablet 40 mg PO BREAKFAST 7 Days Qty: 14 0RF pantoprazole 40 mg Tablet,Delayed Release (Dr/Ec) 40 mg PO DAILY Qty: 60 0RF amoxicillin-pot clavulanate 875-125 mg tablet 1 tab PO BID Qty: 20 0RF guaifenesin [Mucinex] 600 mg tablet extended release 12hr 1,200 mg PO BID 10 Days Qty: 40 0RF albuterol sulfate [Ventolin HFA] 90 mcg/actuation HFA aerosol inhaler 2 puff inhalation Q6H PRN (Reason: shortness of breath or wheezing) Qty: 8.5 0RF Continued Trelegy Ellipta 100-62.5-25 mcg blister with device 1 inh inhalation QDAY zolpidem [Ambien] 10 mg tablet 10 mg PO QHS PRN (Reason: sleep) cyclobenzaprine 5 mg tablet 5 mg PO TID PRN imipramine HCl 50 mg tablet 150 mg PO QHS ibuprofen 800 mg tablet 800 mg PO Q8H PRN bupropion HCl [Wellbutrin SR] 150 mg tablet sustained-release 12 hr 150 mg PO BID Rx Instructions: to stop smoking ondansetron HCl 4 mg tablet 4 mg PO Q8H PRN buspirone 5 mg tablet 5 mg PO TID aspirin [Adult Aspirin Regimen] 81 mg tablet,delayed release (DR/EC) 81 mg PO QDAY melatonin 5 mg capsule PO PRN pantoprazole 40 mg tablet,delayed release (DR/EC) 40 mg PO DAILY Qty: 90 3RF metformin 500 MG tablet 500 mg PO DAILY atorvastatin 20 MG tablet 20 mg PO QHS lisinopril 5 MG tablet 5 mg PO DAILY thiothixene 2 mg capsule 2 mg PO BID Referrals / Follow Up: Lulu Swanson NP, PROCESS OPERATOR-C [Primary Care Provider, Medical] - 11/30/24 11:00 am Disposition Disposition (needs filled in before D/C Order can be placed): Home, Self Care Charges/Coding Visit Charges Inpatient E&M: 29851 Disch Hosp >30min 11/23/24 1430 <Electronically signed by Romeo Mina MD> Cosigner Signature (if applicable): CC: CB Swanson; Dr. Romeo Mina MD~ Signed ADDENDUM by Dr. Romeo Mina MD on 11/23/24 at 1548 Addendum Patient had diarrhea prior to being discharged however stool sent came back negative for C. difficile nor any enteric pathogen. Patient was instructed to take Imodium as needed. Patient also had a prescription sent for levothyroxine she had been started on that during her hospitalization. Stool for guaiac came back positive and an appointment was set up with Dr. Ray for outpatient endoscopic evaluation 11/23/24 1548<Electronically signed by Romeo Mina MD> Cosigner Signature (if applicable): cc: CB Swanson; Dr. Romeo Mina MD ~* Signed [facility] Work Phone: Evaluation note* Diagnosis Chronic insomnia Insomnia, unspecified Medication monitoring encounter [facility]counter for therapeutic drug [facility] Diagnosis Nontraumatic complete tear of right rotator cuff- Primary Contusion of right upper extremity, initial encounter [facility]* Diagnosis Recurrent major depressive disorder, in full remission (HCC) documented in this encounter [facility] note* Diagnosis Chronic right shoulder pain- Primary Pain in joint, shoulder region Nontraumatic complete tear of right rotator cuff documented in this encounter [facility] note* Diagnosis Chronic insomnia Insomnia, unspecified Medication monitoring encounter Encounter for therapeutic drug monitoring documented in this encounter [facility] note* Diagnosis Chronic insomnia Insomnia, unspecified Medication monitoring encounter Encounter for therapeutic drug monitoring documented in this encounter [facility] note* Diagnosis Hyperlipidemia, unspecified hyperlipidemia type documented in this encounter [facility] note* Diagnosis Viral gastroenteritis- Primary Intestinal infection due to other organism, not elsewhere classified documented in this encounter [facility] note* Diagnosis Chronic insomnia Insomnia, unspecified Medication monitoring encounter Encounter for therapeutic drug monitoring documented in this encounter [facility] note* Diagnosis Chronic insomnia Insomnia, unspecified Medication monitoring encounter Encounter for therapeutic drug monitoring documented in this encounter [facility] note* Diagnosis Diabetes mellitus with peripheral artery disease (HCC)- Primary Type II or unspecified type diabetes mellitus with peripheral circulatory disorders, not stated as uncontrolled Chronic insomnia Insomnia, unspecified Medication monitoring encounter Encounter for therapeutic drug monitoring Abnormal TSH Other abnormal clinical finding Hyperlipidemia, unspecified hyperlipidemia type Recurrent major depressive disorder, in full remission (HCC) Hypertension, essential Unspecified essential hypertension [facility]* Diagnosis Headache, unspecified headache type- Primary Exposure to confirmed case of COVID-19 SOB (shortness of breath) Shortness of breath documented in this encounter [facility] note* Diagnosis Left sided sciatica Sciatica [facility]* Diagnosis Chronic insomnia Insomnia, unspecified Medication monitoring encounter Encounter for therapeutic drug monitoring [facility]* Diagnosis Left sided sciatica Sciatica [facility]* Diagnosis Hypertension, essential Unspecified essential hypertension [facility]* Diagnosis Recurrent major depressive disorder, in full remission (HCC) documented in this encounter [facility] note* Diagnosis Acute cough- Primary At increased risk of exposure to COVID-19 virus [facility]* Diagnosis Vomiting without nausea, unspecified vomiting type Hyperlipidemia with target LDL less than 100 Other and unspecified hyperlipidemia Diabetes mellitus with peripheral artery disease (HCC) Type II or unspecified type diabetes mellitus with peripheral circulatory disorders, not stated as uncontrolled Type 2 diabetes mellitus with stage 3a chronic kidney disease, without long-term current use of insulin ([facility]) documented in this encounter [facility] note* Diagnosis Tobacco use disorder [facility]* Diagnosis Recurrent major depressive disorder, in full remission ([facility]) documented in this encounter [facility] note* Diagnosis Encounter to obtain excuse from work- Primary documented in this encounter [facility] note* Diagnosis Tremors of nervous system- Primary Abnormal involuntary movements [facility]* Diagnosis Skin lesion of face Unspecified disorder of skin and subcutaneous tissue Dysesthesia Disturbance of skin sensation [facility]* Diagnosis Nausea and vomiting, unspecified vomiting type- Primary URI, acute Acute upper respiratory infections of unspecified site [facility]* Diagnosis Chronic insomnia Insomnia, unspecified Medication monitoring encounter Encounter for therapeutic drug monitoring [facility] Diagnosis RUQ pain- Primary Abdominal pain, right upper quadrant Diarrhea, unspecified type [facility] Diagnosis Viral upper respiratory tract infection- Primary Acute upper respiratory infections of unspecified site [facility]* Diagnosis Chronic insomnia- Primary Insomnia, unspecified Hyperlipidemia with target LDL less than 100 Other and unspecified hyperlipidemia Type 2 diabetes mellitus with stage 3a chronic kidney disease, without long-term current use of insulin ([facility]) Hypertension, essential Unspecified essential hypertension Abnormal TSH Other abnormal clinical finding Medication monitoring encounter Encounter for therapeutic drug monitoring Gastroesophageal reflux disease, unspecified whether esophagitis present [facility]* Diagnosis Left sided sciatica Sciatica [facility]* Diagnosis Toe pain, right- Primary Pain in limb Tobacco abuse Tobacco use disorder documented in this encounter [facility] note* Diagnosis Encounter for screening mammogram for breast cancer [facility]* Diagnosis Chronic insomnia Insomnia, unspecified [facility]* Diagnosis Left sided sciatica Sciatica [facility]* Diagnosis Hyperlipidemia, unspecified hyperlipidemia type- Primary Chronic insomnia Insomnia, unspecified Type 2 diabetes mellitus with stage 3a chronic kidney disease, without long-term current use of insulin (HCC) Hypertension, essential Unspecified essential hypertension Abnormal TSH Other abnormal clinical finding Medication monitoring encounter Encounter for therapeutic drug monitoring documented in this encounter [facility] note* Diagnosis Chronic insomnia Insomnia, unspecified Left sided sciatica Sciatica documented in this encounter [facility] note* Diagnosis Chronic insomnia Insomnia, unspecified documented in this encounter [facility] note* Diagnosis Acute right-sided thoracic back pain- Primary Recurrent major depressive disorder, in full remission (HCC) documented in this encounter [facility] noteNo assessment information availableWSelect [facility], [facility] Work Phone: Evaluation note* Diagnosis Posterior knee pain, right- Primary documented in this encounter [facility] note* Diagnosis Left sided sciatica Sciatica documented in this encounter [facility] note* Diagnosis Knee swelling- Primary Effusion of lower leg joint documented in this encounter [facility] note* Diagnosis Right knee pain, unspecified chronicity- Primary documented in this encounter [facility] note* Diagnosis Localized swelling of right lower leg- Primary documented in this encounter [facility] note* Diagnosis Knee effusion, right- Primary Effusion of lower leg joint documented in this encounter [facility] note* Diagnosis Staphylococcal arthritis of right knee (HCC)- Primary Pyogenic arthritis, lower leg documented in this encounter [facility] note* Diagnosis Pyogenic arthritis of right knee joint, due to unspecified organism (HCC)- Primary documented in this encounter [facility] note* Diagnosis Pyogenic arthritis of right knee joint, due to unspecified organism (HCC)- Primary [facility]* Diagnosis Chronic insomnia Insomnia, unspecified Medication monitoring encounter Encounter for therapeutic drug monitoring documented in this encounter [facility] note* Diagnosis Right knee pain, unspecified chronicity documented in this encounter [facility] note* Diagnosis Chronic insomnia Insomnia, unspecified Medication monitoring encounter Encounter for therapeutic drug monitoring documented in this encounter [facility] note* Diagnosis Recurrent major depressive disorder, in full remission (HCC) documented in this encounter [facility] note* Diagnosis Left sided sciatica Sciatica documented in this encounter [facility] note* Diagnosis Left sided sciatica Sciatica documented in this encounter [facility] note* Diagnosis Left sided sciatica Sciatica documented in this encounter [facility] note* Diagnosis Chest pain, unspecified type- Primary Encounter for screening for lung cancer Encounter for immunization Need for other specified prophylactic vaccination against single bacterial disease Screening for colon cancer Special screening for malignant neoplasms, colon Hypertension, essential Unspecified essential hypertension Type 2 diabetes mellitus with stage 3a chronic kidney disease, without long-term current use of insulin (HCC) Hyperlipidemia with target LDL less than 100 Other and unspecified hyperlipidemia documented in this encounter [facility] note* Diagnosis Encounter for screening mammogram for breast cancer documented in this encounter [facility] note* Diagnosis Left sided sciatica Sciatica documented in this encounter [facility] note* Diagnosis Chronic insomnia Insomnia, unspecified Medication monitoring encounter Encounter for therapeutic drug monitoring documented in this encounter [facility] note* Diagnosis Screening for colon cancer Special screening for malignant neoplasms, colon documented in this encounter [facility] note* Diagnosis Chronic insomnia Insomnia, unspecified documented in this encounter [facility] note* Diagnosis Chronic insomnia Insomnia, unspecified Medication monitoring encounter Encounter for therapeutic drug monitoring documented in this encounter [facility] note* Diagnosis Left sided sciatica Sciatica documented in this encounter [facility] note* Diagnosis Pain- Primary Generalized pain documented in this encounter [facility] note* Diagnosis Chronic insomnia Insomnia, unspecified Medication monitoring encounter Encounter for therapeutic drug monitoring documented in this encounter [facility] note* Diagnosis Recurrent major depressive disorder, in full remission ([facility]) documented in this encounter [facility] note* Diagnosis Porokeratosis- Primary Other specified congenital anomaly of skin Onychodystrophy Other specified disease of nail documented in this encounter [facility] note* Diagnosis Sciatic nerve pain, right- Primary documented in this encounter [facility] note* Diagnosis Chronic insomnia Insomnia, unspecified Medication monitoring encounter Encounter for therapeutic drug monitoring documented in this encounter [facility] note* Diagnosis Sciatica, right side- Primary History of chest pain Personal history of other specified diseases documented in this encounter [facility] note* Diagnosis Diabetes mellitus with peripheral artery disease (HCC) Type II or unspecified type diabetes mellitus with peripheral circulatory disorders, not stated as uncontrolled documented in this encounter [facility] note* Diagnosis Hyperlipidemia, unspecified hyperlipidemia type documented in this encounter [facility] note* Diagnosis Sciatica, right side- Primary documented in this encounter [facility] note* Diagnosis Chronic insomnia Insomnia, unspecified Medication monitoring encounter Encounter for therapeutic drug monitoring documented in this encounter [facility] note* Diagnosis Pain- Primary Generalized pain Pain Generalized pain documented in this encounter [facility] note* Diagnosis Pain Generalized pain documented in this encounter [facility] note* Diagnosis Controlled type 2 diabetes mellitus without complication, without long-term current use of insulin ([facility])- Primary Medication monitoring encounter Encounter for therapeutic drug monitoring SOB (shortness of breath) Shortness of breath Sinobronchitis Unspecified sinusitis (chronic) Hyperlipidemia, unspecified hyperlipidemia type History of chest pain Personal history of other specified diseases Chronic insomnia Insomnia, unspecified Encounter for immunization Need for other specified prophylactic vaccination against single bacterial disease Primary hypertension Unspecified essential hypertension Recurrent major depressive disorder, in full remission (HCC) documented in this encounter [facility] note* Diagnosis Nontraumatic complete tear of right rotator cuff documented in this encounter [facility] note* Diagnosis SOB (shortness of breath) Shortness of breath documented in this encounter [facility] note* Diagnosis Encounter for screening for lung cancer- Primary Tobacco use current Wheezing Shortness of breath documented in this encounter [facility] note* Diagnosis Recurrent major depressive disorder, in full remission (HCC) documented in this encounter [facility] note* Diagnosis Encounter for screening for lung cancer Tobacco use current documented in this encounter [facility] note* Diagnosis Medication monitoring encounter Encounter for therapeutic drug monitoring Chronic insomnia Insomnia, unspecified Left sided sciatica Sciatica documented in this encounter [facility] note* Diagnosis Encounter for screening for lung cancer- Primary Tobacco use current documented in this encounter [facility] note* Diagnosis Hyperlipidemia with target LDL less than 100- Primary Other and unspecified hyperlipidemia documented in this encounter [facility] note* Diagnosis Wheezing documented in this encounter [facility] note* Diagnosis Wheezing documented in this encounter [facility] note* Diagnosis Wheezing documented in this encounter [facility] note* Diagnosis Pulmonary emphysema, unspecified emphysema type (HCC)- Primary SOB (shortness of breath) Shortness of breath Sinobronchitis Unspecified sinusitis (chronic) COPD with chronic bronchitis (HCC) Obstructive chronic bronchitis without exacerbation [facility] Diagnosis Elevated coronary artery calcium score- Primary Bilateral carotid artery stenosis Occlusion and stenosis of carotid artery without mention of cerebral infarction Neck pain Cervicalgia [facility] Diagnosis Left sided sciatica Sciatica Medication monitoring encounter Encounter for therapeutic drug monitoring Chronic insomnia Insomnia, unspecified [facility]* Diagnosis Finger infection- Primary Unspecified local infection of skin and subcutaneous tissue [facility] Diagnosis Finger infection Unspecified local infection of skin and subcutaneous tissue [facility] Diagnosis Medication monitoring encounter Encounter for therapeutic drug monitoring Chronic insomnia Insomnia, unspecified Left sided sciatica Sciatica [facility] Diagnosis Patient left without being seen- Primary Surgical or other procedure not carried out because of patient's decision [facility]* Diagnosis COPD, mild (HCC)- Primary Chronic airway obstruction, not elsewhere classified Other emphysema (HCC) Other emphysema Cigarette smoker Tobacco use disorder [facility]* Diagnosis Recurrent major depressive disorder, in full remission ([facility]) [facility]* Diagnosis Medication monitoring encounter Encounter for therapeutic drug monitoring Chronic insomnia Insomnia, unspecified Left sided sciatica Sciatica [facility] Diagnosis Left sided sciatica Sciatica Medication monitoring encounter Encounter for therapeutic drug monitoring Chronic insomnia Insomnia, unspecified [facility]* Diagnosis Medication monitoring encounter Encounter for therapeutic drug monitoring Chronic insomnia Insomnia, unspecified Left sided sciatica Sciatica [facility]* Diagnosis Left sided sciatica- Primary Sciatica Acute left-sided low back pain with left-sided sciatica [facility]* Diagnosis Encounter for screening mammogram for breast cancer [facility]* Diagnosis Controlled type 2 diabetes mellitus without complication, without long-term current use of insulin (HCC)- Primary Chronic insomnia Insomnia, unspecified Left sided sciatica Sciatica Recurrent major depressive disorder, in full remission Hyperlipidemia, unspecified hyperlipidemia type Primary hypertension Unspecified essential hypertension documented in this encounter [facility] note* Diagnosis Chronic insomnia Insomnia, unspecified [facility]* Diagnosis COPD, mild (HCC) Chronic airway obstruction, not elsewhere classified documented in this encounter [facility] note* Diagnosis COPD, mild (HCC)- Primary Chronic airway obstruction, not elsewhere classified Pulmonary emphysema, unspecified emphysema type ([facility]) Tobacco use current documented in this encounter [facility] note* Diagnosis Overweight (BMI 25.0-29.9)- Primary Overweight documented in this encounter [facility] note* Diagnosis Chronic insomnia Insomnia, unspecified [facility]* Diagnosis Right knee pain, unspecified chronicity- Primary [facility]* Diagnosis Trigger point of left shoulder region- Primary Other secondary osteoarthritis of right knee documented in this encounter [facility] note* Diagnosis Right knee pain, unspecified chronicity documented in this encounter [facility] note* Diagnosis Left sided sciatica Sciatica Recurrent major depressive disorder, in full remission documented in this encounter [facility] note* Diagnosis Chronic insomnia Insomnia, unspecified [facility]* Diagnosis Hyperlipidemia, unspecified hyperlipidemia type documented in this encounter [facility] note* Diagnosis Controlled type 2 diabetes mellitus without complication, without long-term current use of insulin (HCC)- Primary Hyperlipidemia, unspecified hyperlipidemia type Hypertension, essential Unspecified essential hypertension Chronic insomnia Insomnia, unspecified Pain, dental Unspecified disorder of the teeth and supporting structures Screening for colon cancer Special screening for malignant neoplasms, colon Encounter for immunization Need for other specified prophylactic vaccination against single bacterial disease Mucopurulent chronic bronchitis (HCC) Mucopurulent chronic bronchitis documented in this encounter [facility] note* Diagnosis Hyperlipidemia, unspecified hyperlipidemia type documented in this encounter [facility] note* Diagnosis Muscle strain of right shoulder region, initial encounter documented in this encounter [facility] note* Diagnosis Chronic insomnia Insomnia, unspecified documented in this encounter [facility] note* Diagnosis Left sided sciatica Sciatica [facility]* Diagnosis Onset Date Resolution Status Admit Date Abnormal CT scan, colon acute O ct2024 12:48am Acidosis, lactic acute November 19, 2024 12:48am Acquired polycythemia vera acute November 19, 2024 12:48am Hypothermia acute November 19, 2024 12:48am Hypothyroidism acute November 192024 12:48am NAFLD (nonalcoholic fatty li martina disease) acute November 19 12:48am Obesity (BMI 30.0-34.9) acute O ctober 2024 12:48am Shock circulatory acute November 19, 2024 12:48am Acute respiratory failure resolved November 19, 2024 12:48am Adrenal insufficiency resolved Nov mikey 2024 12:48am Bronchitis resolved November 19, 2024 12:48am COPD exacerbation resolved November 19, 2024 12:48am Duodenitis resolved November 19, 2024 12:48am Elevated d-dimer resolved November 19, 2024 12:48am Focal active colitis resolved Novo 2024 12:48am Hematoma of right chest wall resolve d November 19, 2024 12:48am Severe hypotension resolved Novobe r 2024 12:48am [facility] Work Phone: History and physical [facility] Date/Time November 19, 2024 6 :58am [facility] Medical Records Department [address] [place] [address] H&P Exam - Hospitalist 11/19/24 0003 MR#: [id number] Acct: [id number] Name: DAVID ALDRICH Rep #:[id number] : 1960 64 From: Romeo Vogel DO PCP: CB Landaverde Status:ADM I N Location: ICU CVICU 3-1 [facility] - General General Date of Admission: 11/19/24 Date of Service: 11/19/24 Chief Complaint: SOB, Wheezing and Diaphoresis. HPI Narrative DAVID ALDRICH, is a 64 F with a past medical history of essential hypertension; on lisinopril, hyperlipidemia; on atorvastatin, obesity (class I); with BMI of 31.2this admission, NAFLD, ongoing tobacco abuse; with COPD on fluticasone inhalation daily, DM-2; of unknown control on metformin daily, history of bilateral carotid artery stenosis; s/p Right CEA at [facility] (2012), PAD, history of calcium score greater than [address] scan to screen for lung CA (01/2024) with subsequent unremarkable LHC and LVEF ~71% (2022) previously evaluated by Dr. Arias of [facility], history of septic arthritis (10/2022), schizophrenia; on thiothixene twice daily, buspirone 3 times daily, bupropion twice daily plus imipramine nightly, chronic insomnia; on zolpidem nightly, history of appendectomy, history of rectal polypectomy GERD; on pantoprazole and OA; on ibuprofen 3 times daily as needed who presents to [facility] ER complaining of shortness of breath, wheezing and diaphoresis. Ms. Aldrich presented to the ER in [place] respiratory distress with shortness of breath, wheezing and diaphoresis after being transported by EMS for reported chest pain. Though history was limited she denied chest pain but she did admit to nonproductive cough and was noted to be wheezing. In the ER she was initially diagnosed with AE COPD with clinical evidence of Acute Respiratory Failure requiring BiPAP compounded by Undifferentiated Shock with Severe Hypotension of 72/25 mmHg, Severe Hypothermia of 94.4 ?F and Lactic Acidosis of 3 mmol/L both present on admission with Left subclavian CVC emergently placed inER to start norepinephrine drip in addition to Leukocytosis of 13.9 K and incidentally noted Polycythemia with hemoglobin of 18.9 g/dL present on admission (suspected to be due to combination of chronic tobacco abuse and DENNIS) all exacerbated by elevated TSH of 16.9 consistent with newly diagnosed Hypothyroidism with a corresponding CXR that revealed no acute cardiopulmonary disease followed by CTA of chest with IV contrast that showed no CT evidence of PE, mild chronic fibro-emphysematous pulmonary changes with mediastinal lymphadenopathy and soft tissue thickening in the bilateral hilar regions which may represent lymphadenopathy or peribronchial infiltrates with recommendation to clinically correlate for Bronchitis with moderate thoracic spondylosis with mild dextroconvex scoliosis. CT scan of the abdomen pelvis was recommended and is still pending at this time in addition to IV methylprednisolone to help potentially clarify etiology of shock. She was then admitted to the ICU for ongoing care for stay that is expected to extend beyond 2 midnights. [facility] Medical History Nicotine use disorder Septic arthritis Elevated coronary artery calcium score Neck pain Bilateral carotid artery stenosis Snoring Peripheral arterial disease Fatty liver disease, nonalcoholic Major depressive disorder, recurrent episode Bradycardia Palpitations SOB (shortness of breath) Diabetic acetonemia COPD (chronic obstructive pulmonary disease) Hyperlipidemia Home Medications ?Medication ?Instructions ?Recorded ?Last Taken ?Type atorvastatin 20 mg tablet 20 mg PO QHS 12/22/17 Unknow n History lisinopril 5 mg tablet 5 mg PO DAILY 12/22/17 Unkno wn History metformin 500 mg tablet 500 mg PO DAILY 12/22/17 Unk nown History aspirin 81 mg tablet,delayed 81 mg PO QDAY 01/14/24 Un known History release (Adult Aspirin Regimen) bupropion HCl 150 mg tablet,12 hr 150 mg PO BID Unknown History sustained-release (Wellbutrin SR) buspirone 5 mg tablet 5 mg PO TID 01/14/24 Unknown History cyclobenzaprine 5 mg tablet 5 mg PO TID PRN 01/14/24 U nknown History fluticasone fur. 100 mcg-umeclid 1 inh inhalation QDAY 01/14/24 Unknown History 62.5 mcg-vilant 25 mcg inhalat.powder (Trelegy Ellipta) ibuprofen 800 mg tablet 800 mg PO Q8H PRN 01/14/24 U nknown History imipramine HCl 50 mg tablet 150 mg PO QHS 01/14/24 Unk nown History ondansetron HCl 4 mg tablet 4 mg PO Q8H PRN 01/14/24 U nknown History thiothixene 2 mg capsule 2 mg PO BID 01/14/24 Unknown History zolpidem 10 mg tablet (Ambien) 10 mg PO QHS PRN sleep 01/14/24 Unknown History melatonin 5 mg capsule mg PO PRN 01/21/24 Unknown H istory pantoprazole 40 mg tablet,delayed 40 mg PO DAILY #90 t abs 03/26/24 Unknown Rx release Allergy/AdvReac Type Severity Reaction Status Date / Time simvastatin Allergy Other Verified 11/18/24 21:07 Family History Mother Heart disease Father Diabetes Brother Parkinson's disease Surgical History History of arthroscopy of knee History of colonoscopy History of rectal polypectomy History of cardiac catheterization H/O carotid endarterectomy History of appendectomy Social History household members: children Smoking Status: Current every day smoker tobacco type: cigarettes alcohol intake: never substance use type: does not use caffeine: Yes ROS ROS Narrative 4 view systems was not possible due to patient being in respiratory distress on BiPAP. Vital Signs Vital Signs Vital Signs: 11/18/24 20:34 11/18/24 20:55 11/18/24 20:59 Temperature 81 F L Temperature Source Temporal Pulse Rate 85 88 Respiratory Rate 30 H 30 H Respiratory Pattern Tachypnea Blood Pressure 72/56 L Blood Pressure Mean 61 Blood Pressure Source Pulse Ox 65 100 100 Oxygen Delivery Method Room Air Bi-pap Oxygen Flow Rate (L/min) Fraction of Inspired Oxygen (FIO2) 100 11/18/24 21:00 11/18/24 21:01 11/18/24 21:02 Temperature Temperature Source Pulse Rate 91 91 91 Respiratory Rate 32 H 29 H 30 H Respiratory Pattern Blood Pressure 54/45 L 54/45 L 64/43 L Blood Pressure Mean 49 48 50 Blood Pressure Source Pulse Ox 100 Oxygen Delivery Method Bi-pap Oxygen Flow Rate (L/min) Fraction of Inspired Oxygen (FIO2) 11/18/24 21:04 11/18/24 21:06 11/18/24 21:06 Temperature Temperature Source Pulse Rate 88 81 Respiratory Rate 32 H 24 H Respiratory Pattern Tachypnea Blood Pressure 64/43 L Blood Pressure Mean 50 Blood Pressure Source Pulse Ox 100 100 Oxygen Delivery Method Bi-pap Bi-pap Oxygen Flow Rate (L/min) Fraction of Inspired Oxygen (FIO2) 11/18/24 21:10 11/18/24 21:10 11/18/24 21:11 Temperature Temperature Source Pulse Rate 75 74 Respiratory Rate 27 H 30 H Respiratory Pattern Blood Pressure 69/30 L 63/21 L 69/30 L Blood Pressure Mean 40 36 43 Blood Pressure Source Pulse Ox 100 Oxygen Delivery Method Bi-pap Oxygen Flow Rate (L/min) Fraction of Inspired Oxygen (FIO2) 11/18/24 21:15 11/18/24 21:15 11/18/24 21:20 Temperature Temperature Source Pulse Rate 72 68 72 Respiratory Rate 32 H 27 H 25 H Respiratory Pattern Tachypnea Blood Pressure 70/34 L 73/32 L Blood Pressure Mean 46 45 Blood Pressure Source Pulse Ox 100 100 100 Oxygen Delivery Method Oxygen Flow Rate (L/min) Fraction of Inspired Oxygen (FIO2) 28 11/18/24 21:25 11/18/24 21:30 11/18/24 21:35 Temperature 93.9 F L 94.2 F L Temperature Source Core Core Pulse Rate 79 93 87 Respiratory Rate 21 H 19 H 25 H Respiratory Pattern Blood Pressure 90/37 L 65/34 L 81/42 L Blood Pressure Mean 53 42 55 Blood Pressure Source Pulse Ox 98 100 100 Oxygen Delivery Method Oxygen Flow Rate (L/min) Fraction of Inspired Oxygen (FIO2) 11/18/24 21:36 11/18/24 21:40 11/18/24 21:45 Temperature 94.2 F L 94.4 F L Temperature Source Core Core Pulse Rate 87 85 Respiratory Rate 25 H 24 H Respiratory Pattern Blood Pressure 81/42 L 74/38 L 75/46 L Blood Pressure Mean 55 51 55 Blood Pressure Source Pulse Ox 100 100 Oxygen Delivery Method Bi-pap Oxygen Flow Rate (L/min) Fraction of Inspired Oxygen (FIO2) 11/18/24 21:50 11/18/24 21:55 11/18/24 22:00 Temperature 94.2 F L 94.2 F L 94.1 F L Temperature Source Core Core Core Pulse Rate 86 84 85 Respiratory Rate 24 H 24 H 25 H Respiratory Pattern Blood Pressure 76/50 L 72/31 L Blood Pressure Mean 59 39 Blood Pressure Source Pulse Ox 99 100 100 Oxygen Delivery Method Oxygen Flow Rate (L/min) Fraction of Inspired Oxygen (FIO2) 11/18/24 22:01 11/18/24 22:06 11/18/24 22:06 Temperature 94.1 F L 94.3 F L 94.1 F L Temperature Source Core Core Core Pulse Rate 96 80 85 Respiratory Rate 24 H 22 H 23 H Respiratory Pattern Blood Pressure 59/37 L 70/43 L 65/50 L Blood Pressure Mean 44 52 56 Blood Pressure Source Pulse Ox 100 100 Oxygen Delivery Method Nasal Cannula Oxygen Flow Rate (L/min) 2 Fraction of Inspired Oxygen (FIO2) 11/18/24 22:10 11/18/24 22:15 11/18/24 22:20 Temperature 94.1 F L 94.1 F L 94.2 F L Temperature Source Core Core Core Pulse Rate 81 80 Respiratory Rate 22 H 23 H Respiratory Pattern Blood Pressure 70/58 L 66/38 L 65/46 L Blood Pressure Mean 64 48 54 Blood Pressure Source Pulse Ox 100 100 Oxygen Delivery Method Oxygen Flow Rate (L/min) Fraction of Inspired Oxygen (FIO2) 11/18/24 22:21 11/18/24 22:25 11/18/24 22:26 Temperature 94.2 F L 94.3 F L Temperature Source Core Core Pulse Rate 65 80 Respiratory Rate 22 H Respiratory Pattern Blood Pressure 65/46 L 70/43 L 70/43 L Blood Pressure Mean 52 52 52 Blood Pressure Source Monitor Pulse Ox 100 100 Oxygen Delivery Method Nasal Cannula Oxygen Flow Rate (L/min) 2 Fraction of Inspired Oxygen (FIO2) 11/18/24 22:30 11/18/24 22:30 11/18/24 22:35 Temperature 94.3 F L 94.3 F L 94.3 F L Temperature Source Core Core Core Pulse Rate 88 86 Respiratory Rate 22 H 21 H Respiratory Pattern Blood Pressure 79/48 L 68/43 L 73/44 L Blood Pressure Mean 58 51 54 Blood Pressure Source Pulse Ox 100 100 Oxygen Delivery Method Nasal Cannula Oxygen Flow Rate (L/min) 2 Fraction of Inspired Oxygen (FIO2) 11/18/24 22:37 11/18/24 22:40 11/18/24 22:45 Temperature 94.3 F L 94.4 F L Temperature Source Core Core Pulse Rate 95 88 90 Respiratory Rate 22 H 22 H Respiratory Pattern Blood Pressure 73/44 L 79/48 L 82/54 L Blood Pressure Mean 53 58 63 Blood Pressure Source Monitor Pulse Ox 100 100 Oxygen Delivery Method Nasal Cannula Oxygen Flow Rate (L/min) 2 Fraction of Inspired Oxygen (FIO2) 11/18/24 22:45 11/18/24 22:50 11/18/24 23:00 Temperature 94.4 F L 94.4 F L 94.3 F L Temperature Source Core Core Core Pulse Rate 90 95 88 Respiratory Rate 19 H 18 18 Respiratory Pattern Blood Pressure 82/54 L 72/25 L 87/40 L Blood Pressure Mean 64 39 55 Blood Pressure Source Pulse Ox 100 97 Oxygen Delivery Method Nasal Cannula Room Air Oxygen Flow Rate (L/min) 2 Fraction of Inspired Oxygen (FIO2) 11/18/24 23:05 11/18/24 23:06 11/18/24 23:10 Temperature 94.3 F L 94.2 F L Temperature Source Core Core Pulse Rate 89 86 145 H Respiratory Rate 23 H 19 H Respiratory Pattern Blood Pressure 87/40 L 87/40 L 104/47 L Blood Pressure Mean 55 55 62 Blood Pressure Source Pulse Ox 95 97 Oxygen Delivery Method Room Air Room Air Oxygen Flow Rate (L/min) Fraction of Inspired Oxygen (FIO2) 11/18/24 23:15 11/18/24 23:17 11/18/24 23:20 Temperature 94.1 F L 94.2 F L Temperature Source Core Core Pulse Rate 91 91 93 Respiratory Rate 15 18 18 Respiratory Pattern Blood Pressure 106/59 L 106/59 L 116/46 L Blood Pressure Mean 66 74 65 Blood Pressure Source Pulse Ox 98 95 98 Oxygen Delivery Method Room Air Room Air Oxygen Flow Rate (L/min) Fraction of Inspired Oxygen (FIO2) 11/18/24 23:25 11/18/24 23:30 11/18/24 23:30 Temperature 94.2 F L 94.3 F L Temperature Source Core Core Pulse Rate 96 99 95 Respiratory Rate 17 19 H 18 Respiratory Pattern Blood Pressure 118/62 124/72 H 117/64 Blood Pressure Mean 74 89 80 Blood Pressure Source Pulse Ox 98 97 97 Oxygen Delivery Method Room Air Room Air Oxygen Flow Rate (L/min) Fraction of Inspired Oxygen (FIO2) 11/18/24 23:35 11/18/24 23:45 11/18/24 23:55 Temperature 94.4 F L 94.6 F L Temperature Source Core Core Pulse Rate 97 99 100 Respiratory Rate 16 16 Respiratory Pattern Blood Pressure 131/62 H 124/72 H 124/72 H Blood Pressure Mean 79 88 89 Blood Pressure Source Monitor Pulse Ox 97 97 Oxygen Delivery Method Room Air Oxygen Flow Rate (L/min) Fraction of Inspired Oxygen (FIO2) Weight Weight: 165 lb 5.547 oz Body Mass Index (BMI) 31.2 Results Medical Records Data Attestation: I reviewed the patient's medical records Lab / Micro Data Attestation: I reviewed the patient's lab results. 11/18/24 21:00 11/18/24 21:00 Labs: Laboratory Results - last 24 hr 11/18/24 21:00: WBC 13.9 H, RBC 6.01 H, Hgb 18.9 H*, Hct 55.1 H, MCV 91.7, MCH 31.4, MCHC 34.3, RDW Std Deviation 44.1 H, RDW Coeff of Panchito 13.0, Plt Count 390,MPV 10.6, Immature Gran % (Auto) 0.800, Neut % (Auto) 55.3, Lymph % (Auto) 35.6,Sebastian % (Auto) 4.5, Eos % (Auto) 2.9, Baso % (Auto) 0.9, Absolute Neuts (auto) 7.7, Absolute Lymphs (auto) 4.95 H, Nucleated RBC % 0, PT 15.7 H, INR 1.2, APTT 32.1, Sodium 134, Potassium 4.0, Chloride 98, Carbon Dioxide 17.7 L, Anion Gap 18 H, BUN 17, Creatinine 1.36 H, Estim Creat Clear Calc 39.22 L, Est GFR (MDRD) Non-Af 44 L, BUN/Creatinine Ratio 12.4, Glucose 316 H, Calcium 10.0, Total Bilirubin 0.53, AST 64 H, ALT 38 H, Alkaline Phosphatase 115 H, Troponin T High Sens 11, Total Protein 6.8, Albumin 3.9, Globulin 2.9, Albumin/Globulin Ratio 1.3, b-Hydroxybutyric mmol/L 0.2, TSH 16.900 H 11/18/24 21:08: Lactic Acid 3.0 H* 11/18/24 21:42: Urine Color Yellow, Urine Clarity Clear, Urine pH 6.0, Ur Specific [place] 1.015, Urine Protein 100 H, Urine Glucose (UA) Normal, Urine Ketones Negative, Urine Occult Blood 10 H, Urine Nitrite Negative, Urine Bilirubin 6 H, Urine Urobilinogen Normal, Ur Leukocyte Esterase 25 H, Urine RBC 0-5 SEEN, Urine WBC 0-5 SEEN, Ur Squamous Epith Cells 0-5 SEEN, Urine Bacteria 0SEEN, Urine Mucus 0 SEEN Micro: Microbiology 11/18/24 21:04 Mucosa - Nose SARS-CoV-2, Influenza & RSV (PCR) - Final ABG Data ABG results: ABG 11/18/24 21:07 Specimen Type ART Sample Site L Radial pH 7.30 L Bicarbonate Actual 13.1 L Total CO2 14 Base Excess -13 L O2 Saturation 100 H O2 % 6.0 ABG pCO2 26.6 L ABG pO2 504 H* Nayana Test N/A O2 Delivery Device Cannula Vent Mode Not entered Crit Call To/Read Back Yes Blood Gas Notified Whom Dr Marques Blood Gas Notified Time 21:09:37 Imaging Radiology Impression Chest X-Ray 11/18/24 20:50 IMPRESSION: No acute cardiopulmonary disease. Reading Location: [id number] Chest X-Ray 11/18/24 22:34 IMPRESSION: Left subclavian central venous catheter with tip at the lower SVC. Unchanged lung aeration. No pneumothorax or sizable pleural effusion. Reading Location: [id number] Imaging Services [address] [place] [id number] CTA Chest W/WO Contrast MR#: [id number] Acct: [id number] Name: DAVID ALDRICH Rep #: [id number] : 1960 F 64 From: Juan Manuel Gleason MD PCP: CB Landaverde Status: [facility] ER Study: CTA Chest W/WO Contrast Date of Exam: 11/18/24 Exam# [id number] Ordering Dr: Ru Marques MD PROCEDURE: CTA CHEST W/WO CONTRAST 11/18/2024 REASON FOR EXAM: HYPOXIA, UNDIFFERENTIATED SHOCK TECHNIQUE: Procedure Code: CTCTACHWW Modality: CT Procedure: CTA CHEST W/WO CONTRAST Multiplanar Sagittal and Coronal images were obtained. CONTRAST: VOLUME: mL One or more dose reduction techniques were used (e.g., Automated exposure control, adjustment of the mA and/or kV according to patient size, use of iterative reconstruction technique). COMPARISON: Chest radiograph dated earlier on the same day. FINDINGS: No filling defect suggestive of a pulmonary embolism is identified to the secondary branches of the pulmonary arteries. Mild chronic interstitial changes including peripheral septal wall thickening, as well as mild centrilobular and paraseptal emphysematous changes which are more peripherally oriented. The heart is normal in size. There appear to be enlarged paratracheal lymph nodes. Soft tissue thickening in the bilateral hilar regions may represent hilar lymphadenopathy or peribronchial infiltrates. No acute fracture. Moderate thoracic spondylosis. Mild dextro convex thoracic scoliosis. CT/CTA Chest W/WO Contrast IMPRESSION: No CT evidence of a pulmonary embolism. Mild chronic fibroemphysematous pulmonary changes, as described above. Mediastinal lymphadenopathy. Soft tissue thickening in the bilateral hilar regions may represent hilar lymphadenopathy or peribronchial infiltrates. Please correlate clinically for bronchitis. Moderate thoracic spondylosis with mild dextro convex scoliosis. Reading Location: [id number] CC: CB Swanson; Dr. Ru Marques MD ~ Ug Designer: Signed ----- --------- [facility] Imaging Services [address] [place] [id number] Abdomen/Pelvis W IV Cont ONLY MR#: [id number] Acct: [id number] Name: DAVID ALDRICH Rep #: [id number] : 1960 F 64 From: Juan Manuel Gleason MD PCP: PREMA LandaverdeC Status: ADM IN Study: Abdomen/Pelvis W IV Cont ONLY Date of Exam: 11/19/24 Exam# [id number] Ordering Dr: Ru Marques MD PROCEDURE: ABDOMEN/PELVIS W IV CONT ONLY 11/19/2024 REASON FOR EXAM: LEUKOCYTOSIS, SHOCK TECHNIQUE: Procedure Code: [id number] Modality: CT Procedure: ABDOMEN/PELVIS W IV CONT ONLY Coronal and Sagittal reconstruction series were provided. CONTRAST: VOLUME: mL One or more dose reduction techniques were used (e.g., Automated exposure control, adjustment of the mA and/or kV according to patient size, use of iterative reconstruction technique. FINDINGS: Abrupt narrowing of the proximal sigmoid colon with a short segment of wall thickening is noted (series 2, images 72 through 84), concerning for either focal colitis or a mucosal mass lesion. There is mild dilatation of the large and small bowel proximal to this focal narrowing, which could represent a low-grade partial small bowel obstruction. A large amount of stool is noted distal to this focal wall thickening within the distal sigmoid colon and rectum. There is also mild wall thickening of the duodenum with mild adjacent fat stranding, concerning for duodenitis. A Aguiar catheter is present within the urinary bladder, which contains contrast material from a previous radiological study. The liver, spleen, gallbladder, pancreas, adrenal glands, and kidneys appear unremarkable. The visualized lung bases are clear. Small hiatal hernia. Mild free fluid within the pelvis. Moderate atherosclerotic calcifications. Moderate to severe thoracolumbar spondylosis including a grade 1 anterolisthesisof L4 on L5. Mild scoliosis of the lumbar spine. CT/Abdomen/Pelvis W IV Cont ONLY IMPRESSION: 1. Abrupt narrowing of the proximal sigmoid colon with a short segment of wall thickening. This could represent focal colitis or a mucosal mass lesion. 2. Mild wall thickening of the duodenum with mild adjacent fat stranding, concerning for duodenitis. 3. Mild dilatation of the large and small bowel proximal to the focal narrowingin the proximal sigmoid colon, which could represent a low-grade partial small bowel obstruction. 4. Large amount of stool within the distal sigmoid colon and rectum. 5. Small hiatal hernia. 6. Moderate to severe thoracolumbar spondylosis with mild lumbar scoliosis. Reading Location: [id number] CC: CB Swanson; Dr. Ru Marques MD ~ Ug Designer: Signed Assessment & Plan Assessment/Plan (1) COPD exacerbation: (2) Bronchitis: (3) Acute respiratory failure: QUALIFIERS: Respiratory failure complication: unspecified whether with hypoxia or hypercapnia Qualified Code(s): J96.00 - Acute respiratory failure, unspecified whether with hypoxia or hypercapnia (4) Shock circulatory: (5) Adrenal insufficiency: (6) Severe hypotension: (7) Hypothermia: QUALIFIERS: Encounter type: initial encounter Qualified Code(s): T68.XXXA - Hypothermia, initial encounter (8) Acidosis, lactic: (9) Acquired polycythemia vera: (10) Hypothyroidism: QUALIFIERS: Hypothyroidism type: unspecified Qualified Code(s): E03.9 - Hypothyroidism, unspecified (11) Obesity (BMI 30.0-34.9): (12) NAFLD (nonalcoholic fatty liver disease): (13) Focal active colitis: (14) Duodenitis: (15) Elevated d-dimer: PLAN: Plan 1. AE COPD with clinical evidence of Acute Respiratory Failure requiring BiPAP with CTA of chest with IV contrast that showed no CT evidence of PE, mild chronic fibro-emphysematous pulmonary changes with mediastinal lymphadenopathy and soft tissue thickening in the bilateral hilar regions which may represent lymphadenopathy or peribronchial infiltrates with recommendation to clinically correlate for Bronchitis in the setting of ongoing Tobacco Abuse - Admit to ICU. Start IV methylprednisolone plus cover with empiric IV piperacillin-tazobactam and IV azithromycin. Give pantoprazole 40 mg IV daily. Give ondansetron IV prnfor nausea and vomiting. Tobacco Cessation will be strongly encouraged with Nicotine patch offered to control cravings. Finally, we will consult pulmonary/critical-care physician to see this patient on rounds in the a.m. for further recommendations without appreciated in advance. 2. Undifferentiated Shock with Severe Hypotension of 72/25 mmHg, Severe Hypothermia of 94.4 ?F, Lactic Acidosis of 3 mmol/L and Leukocytosis of 13.9 K all present on admission with Left subclavian CVC emergently placed in ER to start norepinephrine drip complicating #1 in the setting of chronic inhaled steroid use raising specter of possible adrenal Insufficiency - Give vigorous IVvolume resuscitation and maintain norepinephrine drip to keep MAP > [address] RAD hugger to raise core temperature. Serialize lactate to follow trend. Serialize troponin. Check echocardiogram to evaluate LVEF and other potential structural abnormalities that may help explain her presentation. Check d-dimer. Cortisol level pending from ER check prior to steroid administration. Check CTscan of the abdomen and pelvis to hopefully identify potential source. 3. Polycythemia with hemoglobin of 18.9 g/dL present on admission (suspected graciela due to combination of chronic tobacco abuse and DENNIS) compounding #1 & #2 - Screen for SHONDA-2 mutation. Check CBC daily to follow trend. 4. Elevated TSH of 16.9 consistent with newly diagnosed Hypothyroidism adding to the medical complexity of #1 - #3 - Start IV levothyroxine and recheck TSH in~4-6 weeks. 5. Obesity (class I); with BMI of 31.2 this admission plus NAFLD adding to the burden of disease outlined from #1 - #4 - Weight loss will be recommended. Thiscomplicates her case and may hamper recovery. 6. DM-2; of unknown control on metformin daily - Keep NPO for now. Hold metformin until further notice with elevated lactate. FSBS q. 6 hours plus lowest- intensity SSI. Check HgbA1c to objectively evaluate quality of diabetic control. 7. Essential hypertension; on lisinopril - Hold scheduled antihypertensives in light of #2. 8. Hyperlipidemia; on atorvastatin - Resume statin when patient can tolerate oral intake. 9. History of bilateral carotid artery stenosis; s/p Right CEA at [facility] (2012) - Noted. 10. PAD - Stable. 11. History of septic arthritis (10/2022) - Noted with no complaints related to joint pain. 12. Schizophrenia and Depression; on thiothixene twice daily, buspirone 3 timesdaily, bupropion twice daily plus imipramine nightly - Hold oral agents at this time. 13. Chronic insomnia; on zolpidem nightly - Noted. 14. History of appendectomy - Noted. 15. History of rectal polypectomy - Noted for the sake of completeness. 16. GERD; on pantoprazole - Resume PPI IV as outlined in #1. 17. OA; on ibuprofen 3 times daily as needed - Stable. We will give ketorolac IV as needed for pain or fever. 18. DVT prophylaxis - Enoxaparin 40 mg sq daily. Total time: Approximately (but not less than) 75 minutes. Update: Patient was ordered a CT scan of the abdomen and pelvis with IV contrastjust before leaving the ER that revealed abrupt narrowing of the proximal sigmoid colon with a short segment of wall thickening which could represent focal Colitis or mucosal mass lesion in addition to mild wall thickening of the duodenum with mild adjacent fat stranding concerning for Duodenitis in addition to mild dilatation of the large and small bowel proximal to the focal narrowing in the proximal sigmoid colon which could represent a low-grade partial small bowel obstruction with a large amount of stool within the distal sigmoid colon and rectum. In addition pelvis her D-dimer returned critically high at greater than 20; with CTA of chest with IV contrast negative for PE but now with LE Doppler pending in AM. She was already started on empiric IV piperacillin-tazobactam to cover potential gastrointestinal infections. Finally, we will consult both general surgery and gastroenterology to see this patient on rounds in the a.m. for further recommendations with help appreciated in advance. Charges/Coding Visit Charges Inpatient E&M: 17039 Init Hosp L3 11/19/24 0658 <Electronically signed by Romeo Khan DO> Cosigner Signature (if applicable): CC: CB Swanson; Dr. Romeo Khan DO~ Signed [facility] Work Phone: Progress note Author Kenny Pompa [facility] Note Date/Time November 20, 2024 8 :36am [facility] Medical Records Department [address] [place] [id number] Progress Note - Hospitalist 11/19/24 1413 MR#: [id number] Acct: [id number] Name: DAVID ALDRICH Rep #:[id number] : 1960 64 From: Kenny Munguia PCP: CB Landaverde Status:ADM I N Location: ICU CVICU20 3-1 Reason for Visit Chief Complaint: SOB, Wheezing and Diaphoresis. Objective Data Objective Data Vital Signs: Vital Signs Temp Pulse Resp BP Pulse Ox O2 Del Method O2 Flow Rate 98.1 F 89 18 90/43 L 95 Room Air 2 11/19/24 02:04 11/19/24 05:00 11/19/24 05:00 11/19/24 05:00 11/19/24 05:00 11/19/24 04:00 11/18/24 22:45 FiO2 28 11/18/24 21:15 Oxygen Flow Rate (L/min) 2 Oxygen Delivery Method Room Air Weight: 163 lb 9.328 oz Body Mass Index (BMI) 30.9 Intake & Output: Intake and Output for Last 24 Hours 11/17/24 11/18/24 11/19/24 23:59 23:59 23:59 Intake Total 3034.55 / 3034.55 474.82 / 474.82 Output Total 475 / 475 Balance 3034.55 / 3034.55 -0.18 / -0.18 Lab / Micro Data 11/19/24 07:04 11/19/24 07:04 Labs: Laboratory Results - last 24 hr 11/18/24 21:00: WBC 13.9 H, RBC 6.01 H, Hgb 18.9 H*, Hct 55.1 H, MCV 91.7, MCH 31.4, MCHC 34.3, RDW Std Deviation 44.1 H, RDW Coeff of Panchito 13.0, Plt Count 390,MPV 10.6, Immature Gran % (Auto) 0.800, Neut % (Auto) 55.3, Lymph % (Auto) 35.6,Sebastian % (Auto) 4.5, Eos % (Auto) 2.9, Baso % (Auto) 0.9, Absolute Neuts (auto) 7.7, Absolute Lymphs (auto) 4.95 H, Nucleated RBC % 0, PT 15.7 H, INR 1.2, APTT 32.1, Sodium 134, Potassium 4.0, Chloride 98, Carbon Dioxide 17.7 L, Anion Gap 18 H, BUN 17, Creatinine 1.36 H, Estim Creat Clear Calc 39.22 L, Est GFR (MDRD) Non-Af 44 L, BUN/Creatinine Ratio 12.4, Glucose 316 H, Calcium 10.0, Total Bilirubin 0.53, AST 64 H, ALT 38 H, Alkaline Phosphatase 115 H, Troponin T High Sens 11, Total Protein 6.8, Albumin 3.9, Globulin 2.9, Albumin/Globulin Ratio 1.3, b-Hydroxybutyric mmol/L 0.2, TSH 16.900 H, Cortisol PM Sample 35.80 H 11/18/24 21:08: Lactic Acid 3.0 H* 11/18/24 21:42: Urine Color Yellow, Urine Clarity Clear, Urine pH 6.0, Ur Specific [place] 1.015, Urine Protein 100 H, Urine Glucose (UA) Normal, Urine Ketones Negative, Urine Occult Blood 10 H, Urine Nitrite Negative, Urine Bilirubin 6 H, Urine Urobilinogen Normal, Ur Leukocyte Esterase 25 H, Urine RBC 0-5 SEEN, Urine WBC 0-5 SEEN, Ur Squamous Epith Cells 0-5 SEEN, Urine Bacteria 0SEEN, Urine Mucus 0 SEEN 11/18/24 23:16: Troponin T Hi Sens 2 Hr 15 H 11/19/24 01:24: Troponin T Hi Sens 4Hr 22 H 11/19/24 02:10: D-Dimer Quant (PE/DVT) > 20.00 H*, Hemoglobin A1c 6.1 H, Lactic Acid 2.1 H*, Magnesium 2.6 H, Free T4 0.90, Free T3 pg/dL 2.4 11/19/24 07:04: WBC 21.4 H, RBC 4.00 L, Hgb 12.6, Hct 37.1, MCV 92.8, MCH 31.5, MCHC 34.0, RDW Std Deviation 45.2 H, RDW Coeff of Panchito 13.2, Plt Count 276, MPV 9.7, Immature Gran % (Auto) 0.600, Neut % (Auto) 90.7 H, Lymph % (Auto) 3.5 L, Sebastian % (Auto) 4.9, Eos % (Auto) 0.1, Baso % (Auto) 0.2, Absolute Neuts (auto) 19.5 H, Absolute Lymphs (auto) 0.75 L, Nucleated RBC % 0 Micro: Microbiology 11/18/24 21:04 Mucosa - Nose SARS-CoV-2, Influenza & RSV (PCR) - Final ABG Data ABG results: ABG 11/18/24 11/19/24 21:07 04:24 Specimen Type ART ART Sample Site L Radial L Radial pH 7.30 L 7.30 L Bicarbonate Actual 13.1 L 14.9 L Total CO2 14 16 Base Excess -13 L -12 L O2 Saturation 100 H 95 O2 % 6.0 ABG pCO2 26.6 L 30.4 L ABG pO2 504 H* 81 Nayana Test N/A Positive O2 Delivery Device Cannula Room Air Vent Mode Not entered Not entered Crit Call To/Read Back Yes Blood Gas Notified Whom Dr Marques Blood Gas Notified Time 21:09:37 Radiography Diagnostic Testing: Radiology Impression Chest X-Ray 11/18/24 20:50 IMPRESSION: No acute cardiopulmonary disease. Reading Location: [facility] Chest X-Ray 11/18/24 22:34 IMPRESSION: Left subclavian central venous catheter with tip at the lower SVC. Unchanged lung aeration. No pneumothorax or sizable pleural effusion. Reading Location: [facility] Chest CTA 11/18/24 22:41 IMPRESSION: No CT evidence of a pulmonary embolism. Mild chronic fibroemphysematous pulmonary changes, as described above. Mediastinal lymphadenopathy. Soft tissue thickening in the bilateral hilar regions may represent hilar lymphadenopathy or peribronchial infiltrates. Please correlate clinically for bronchitis. Moderate thoracic spondylosis with mild dextro convex scoliosis. Reading Location: [facility] Abdomen/Pelvis CT 11/19/24 00:03 IMPRESSION: 1. Abrupt narrowing of the proximal sigmoid colon with a short segment of wall thickening. This could represent focal colitis or a mucosal mass lesion. 2. Mild wall thickening of the duodenum with mild adjacent fat stranding, concerning for duodenitis. 3. Mild dilatation of the large and small bowel proximal to the focal narrowingin the proximal sigmoid colon, which could represent a low-grade partial small bowel obstruction. 4. Large amount of stool within the distal sigmoid colon and rectum. 5. Small hiatal hernia. 6. Moderate to severe thoracolumbar spondylosis with mild lumbar scoliosis. Reading Location: [facility] Chest CT 11/19/24 03:46 IMPRESSION: Coronary artery calcification (CAC) is is present Acute soft tissue hematoma is noted underlying the right pectoralis muscle in the interim measuring 3.9 x 8.4 x 9.1 cm in its largest anteroposterior, transverse and craniocaudal dimensions respectively. Secondary mild displacement and edema of the right pectoralis muscle. Mild surrounding soft tissue edema. Unchanged mild bilateral basilar pleural thickening/effusions. Unchanged minimal bilateral basilar atelectatic pulmonary changes. Unchanged emphysema/chronic interstitial thickening. Unchanged mildly enlarged mediastinal lymph nodes with the largest measuring 1.2cm. Chronic deformity of the axillary portion of the right 6th rib, unchanged. Reading Location: [place] [id number] Physical Exam Narrative Seen and examined Patient admitted with chief complaint of chest pain and shortness of breath and nausea. Chest pain was localized in midsternal, sharp and states that she felt like she could not breathe. Currently 97% on room air. Patient denies abdominal pain. She had a large formed brown-colored stool. Intermittent abdominal pain Physical exam General: Alert, Oriented x3, Cooperative HEENT: Atraumatic, PERRLA, EOMI, Normocephalic. Oral: No Gingival or Mucosal Lesions/ Ulcerations Neck: Supple, No JVD, Negative Carotid Bruits Chest wall/Lungs: Air entry diminished in bilateral lung bases. No crepitation/rhonchi Cardiovascular: Sinus rhythm, Normal S1,S2, No M/G/R Abdomen: Bowel Sounds sluggish, Soft, Non Tender, Non-Distended : No dysuria. No renal angle tenderness. No suprapubic tenderness. Extremities: No edema, Capillary Refill Less than 3 Seconds Skin: No rashes, No breakdown Musculoskeletal: No Tenderness to Palpation of Joints or Extremities Neurological: Cranial nerves II-XII grossly intact, DTR 2+/4. No acute focal neurological deficit. Psych/Mental Status: Normal Affect, Appropriate. Assessment & Plan Assessment/Plan (1) COPD exacerbation: (2) Bronchitis: (3) Acute respiratory failure: QUALIFIERS: Respiratory failure complication: unspecified whether with hypoxia or hypercapnia Qualified Code(s): J96.00 - Acute respiratory failure, unspecified whether with hypoxia or hypercapnia (4) Shock circulatory: (5) Adrenal insufficiency: (6) Severe hypotension: (7) Hypothermia: QUALIFIERS: Encounter type: initial encounter Qualified Code(s): T68.XXXA - Hypothermia, initial encounter (8) Acidosis, lactic: (9) Acquired polycythemia vera: (10) Hypothyroidism: QUALIFIERS: Hypothyroidism type: unspecified Qualified Code(s): E03.9 - Hypothyroidism, unspecified (11) Obesity (BMI 30.0-34.9): (12) NAFLD (nonalcoholic fatty liver disease): (13) Focal active colitis: (14) Duodenitis: (15) Elevated d-dimer: PLAN: Plan This is a 63-year-old female brought by EMS for shortness of breath complaint ofchest pain and nausea and diaphoretic diaphoretic. As per ED physician, she denied chest patient. Complain of nonproductive cough with no history of VTE. Denies leg pain swelling discoloration 1. Acute hypoxic respiratory failure due to acute exacerbation of COPD requiring BiPAP: Chest CTA does not show evidence of PE but chronic fibroemphysematous pulmonary changes with mediastinal lymphadenopathy and soft tissue thickening in bilateral hilar regions, may represent lymphadenopathy or peribronchial infiltrates Empirically started on IV Zosyn. Patient is being managed on scheduled bronchodilator, IV Solu-Medrol, Mucinex, incentive spirometry and Pep.. 2. Undifferentiated Shock most likely hemorrhagic/distributive shock, less septic shock with Severe Hypotension of 72/25 mmHg, Severe Hypothermia of 94.4 ?F, Lactic Acidosis of 3 mmol/L and Leukocytosis of 13.9 K all present on admission: Patient on Levophed drip, to keep MAP more than 65 mmHg through left subclavian CVC catheter inserted in ED. Patient was on RAD hugger to raise core temperature. Most recent temperature 98.1 ?F. Lactic acid still elevated 3.0, 2.1 and 2.7. Echo is ordered. CT shows large right pectoralis muscle hematoma 3.9 x 8.4 x 9.1 cm with secondary mild displacement and edema of the right pectoralis muscle. Mild surrounding soft tissue edema. CT does not show significant consolidation but minimal bilateral basilar atelectatic changes, unchanged emphysema/chronic interstitial thickening and unchanged mildly enlarged mediastinal lymph nodes largest measuring 1.2 cm. Discussed with retirement benefits specialist requesting consult as patient is on IV Levophed drip for shock 3. Polycythemia with hemoglobin of 18.9 g/dL present on admission (suspected graciela due to combination of chronic tobacco abuse and DENNIS) compounding #1 & #2 - Screen for SHONDA-2 mutation. Unclear whether it is true because previous hemoglobin was 13.8/40.5 in July 2020 but it was 18.9/55.1 on 11/18. Most recent 12.6/37.1% today. Patient has leukocytosis 21.4 increased from 13.9 and platelet count normal. 4. Subclinical hypothyroidism: Elevated TSH of 16.9, free T40.9, low normal 5. Obesity (class I); with BMI of 31.2 this admission plus NAFLD adding to the burden of disease outlined from #1 - #4 - Weight loss will be recommended. Thiscomplicates her case and may hamper recovery. 6. DM-2; of unknown control on metformin daily - Keep NPO for now. Hold metformin until further notice with elevated lactate. FSBS q. 6 hours plus lowest- intensity SSI. Check HgbA1c to objectively evaluate quality of diabetic control. 7. Essential hypertension; on lisinopril - Hold scheduled antihypertensives in light of #2. 8. Hyperlipidemia; on atorvastatin - Resume statin when patient can tolerate oral intake. 9. History of bilateral carotid artery stenosis; s/p Right CEA at [facility] (2012) - Noted. 10. PAD - Stable. Lower extremity Doppler ordered as D-dimer was critically high. 12. Schizophrenia and Depression; on thiothixene twice daily, buspirone 3 timesdaily, bupropion twice daily plus imipramine nightly - Hold oral agents at this time. 13. Chronic insomnia; on zolpidem nightly - Noted. 16. GERD; on pantoprazole - Resume PPI IV as outlined in #1. 17. OA; on ibuprofen: Discontinue ketorolac. Hold NSAIDs because of hematoma 18. DVT prophylaxis - hold Lovenox. Pharmacological prophylaxis contraindicated in view of large hematoma and right pectoralis muscle Clinical Impression(s) from Imaging Studies Chest X-Ray 11/18/24 20:50 IMPRESSION: No acute cardiopulmonary disease. Reading Location: [facility] Chest X-Ray 11/18/24 22:34 IMPRESSION: Left subclavian central venous catheter with tip at the lower SVC. Unchanged lung aeration. No pneumothorax or sizable pleural effusion. Reading Location: [facility] Chest CTA 11/18/24 22:41 IMPRESSION: No CT evidence of a pulmonary embolism. Mild chronic fibroemphysematous pulmonary changes, as described above. Mediastinal lymphadenopathy. Soft tissue thickening in the bilateral hilar regions may represent hilar lymphadenopathy or peribronchial infiltrates. Please correlate clinically for bronchitis. Moderate thoracic spondylosis with mild dextro convex scoliosis. Reading Location: [facility] Abdomen/Pelvis CT 11/19/24 00:03 IMPRESSION: 1. Abrupt narrowing of the proximal sigmoid colon with a short segment of wall thickening. This could represent focal colitis or a mucosal mass lesion. 2. Mild wall thickening of the duodenum with mild adjacent fat stranding, concerning for duodenitis. 3. Mild dilatation of the large and small bowel proximal to the focal narrowingin the proximal sigmoid colon, which could represent a low-grade partial small bowel obstruction. 4. Large amount of stool within the distal sigmoid colon and rectum. 5. Small hiatal hernia. 6. Moderate to severe thoracolumbar spondylosis with mild lumbar scoliosis. Reading Location: [facility] Echocardiogram 11/19/24 02:04 Interpretation Summary Technically difficult study with suboptimal images. Mild concentric left ventricular hypertrophy. The left ventricular ejection fraction is 65 %. Stage 1 diastolic dysfunction. Ordering Physician: Romeo Khan Referring Physician: LULU SWANSON Performed By: Agnieszka Brenner RCS Chest CT 11/19/24 03:46 IMPRESSION: Coronary artery calcification (CAC) is is present Acute soft tissue hematoma is noted underlying the right pectoralis muscle in the interim measuring 3.9 x 8.4 x 9.1 cm in its largest anteroposterior, transverse and craniocaudal dimensions respectively. Secondary mild displacement and edema of the right pectoralis muscle. Mild surrounding soft tissue edema. Unchanged mild bilateral basilar pleural thickening/effusions. Unchanged minimal bilateral basilar atelectatic pulmonary changes. Unchanged emphysema/chronic interstitial thickening. Unchanged mildly enlarged mediastinal lymph nodes with the largest measuring 1.2cm. Chronic deformity of the axillary portion of the right 6th rib, unchanged. Reading Location[facility] Charges/Coding Visit Charges Inpatient E&M: 52595 Subs Hosp L3 11/19/24 1413 <Electronically signed by Kenny Pompa MD> Cosigner Signature (if applicable): CC: ~ Signed ADDENDUM by Dr. Kenny Pompa MD on 11/20/24 at 0836 Addendum Suspicion of focal sigmoid colitis/ischemic colitis: Discussed with surgeon Dr. Brown. Initial and then repeat CT abdomen and pelvis images with p.o. and per rectal was reviewed with him. CT imaging initially reported abnormal with abrupt transition of sigmoid colon concerning for possible focal colitis or concern/possible small bowel obstruction. Repeat CT imaging with p.o. and NE contrast showed no evidence of bowel obstruction and no focal narrowing of colon. There was concern of colitis and/or ischemic colitis. 11/20/24 0836<Electronically signed by Kenny Pmopa MD> Cosigner Signature (if applicable): cc: ~* Signed [facility] Work Phone: Progress note Author Ej Brown [facility] Note Date/Time November 20, 2024 8 :28am [facility] Medical Records Department [address] [place] [address] Progress Note - Surgery 11/20/24 08 MR#: [id number] Acct: [id number] Name: DAVID ALDRICH C[place] Rep #:[id number] : 1960 64 From: Ej Munguia PCP: CB Landaverde Status:ADM I N Location: ICU CVICU20 3-1 Subjective Subjective Patient seen and examined during AM rounds. She is found resting in bed. She denies any nausea and confirms she tolerated her diet well. She does denied appetite at present. She confirms she still is experiencing bowel movements andreports them to be loose in character. She wishes to know when she will be eligible for discharge to home. Objective Data Objective Data Vital Signs: Vital Signs Temp Pulse Resp BP Pulse Ox O2 Del Method O2 Flow Rate 99 F 98 27 H 126/58 H 97 Room Air 2 11/20/24 04:00 11/20/24 07:00 11/20/24 07:00 11/20/24 07:00 11/20/24 07:00 11/20/24 07:00 11/18/24 22:45 FiO2 28 11/18/24 21:15 Oxygen Flow Rate (L/min) 2 Oxygen Delivery Method Room Air Weight: 166 lb 0.129 oz Body Mass Index (BMI) 31.3 Intake & Output: Intake and Output for Last 24 Hours 11/18/24 11/19/24 11/20/24 23:59 23:59 23:59 Intake Total 3034.55 / 3034.55 3168.67 / 3174.27 87.40 / 87.40 Output Total 2024 / 2024 550 / 550 Balance 3034.55 / 3034.55 1143.67 / 1149.27 -462.60 / -462.60 Lab / Micro Data 11/20/24 05:30 11/20/24 05:30 Labs: Laboratory Results - last 24 hr 11/19/24 12:57: POC Glucose 180 H 11/19/24 18:32: POC Glucose 142 H 11/20/24 05:06: POC Glucose 143 H 11/20/24 05:30: WBC 17.8 H, RBC 3.18 L, Hgb 10.2 L, Hct 28.7 L, MCV 90.3, MCH 32.1 H, MCHC 35.5, RDW Std Deviation 45.4 H, RDW Coeff of Panchito 13.6, Plt Count 192, MPV 9.8, Immature Gran % (Auto) 0.300, Neut % (Auto) 86.5 H, Lymph % (Auto)3.9 L, Sebastian % (Auto) 9.1, Eos % (Auto) 0.0, Baso % (Auto) 0.2, Absolute Neuts (auto) 15.4 H, Absolute Lymphs (auto) 0.70 L, Nucleated RBC % 0, Differential Comment , Toxic Vacuolation 1+, Platelet Estimate ADEQUATE, RBC Morphology NORM C+C, Sodium 134, Potassium 3.9, Chloride 106, Carbon Dioxide 15.2 L, Anion Gap 13, BUN 27 H, Creatinine 1.29 H, Estim Creat Clear Calc 41.43 L, Est GFR (MDRD) Non-Af 47 L, BUN/Creatinine Ratio 20.9 H, Glucose 157 H, Calcium 7.8 Micro: Microbiology 11/19/24 08:25 Nasal Secretion MRSA (PCR) - Final 11/19/24 04:03 Mucosa - Nasopharyngeal Respiratory Panel (PCR) - Final 11/18/24 21:04 Mucosa - Nose SARS-CoV-2, Influenza & RSV (PCR) - Final Radiography Diagnostic Testing: Radiology Impression Echocardiogram 11/19/24 02:04 Interpretation Summary Technically difficult study with suboptimal images. Mild concentric left ventricular hypertrophy. The left ventricular ejection fraction is 65 %. Stage 1 diastolic dysfunction. Ordering Physician: Romeo Khan Referring Physician: LULU SWANSON Performed By: Agnieszka Brenner RCS Venous Doppler Study 11/19/24 04:21 Interpretation Summary Deep veins of the lower extremities are bilaterally patent and compressible segmentally. There is no evidence of deep vein thrombosis on either side. Valvular competence appears intact within the proximal deep venous systems bilaterally. The great saphenous veins appear bilaterally patent and compressible segmentally. Ordering Physician: Romeo Khan Referring Physician: Lulu Swanson Performed By: Amy Sidhu RVT Abdomen CT 11/19/24 15:18 IMPRESSION: 1. Acute colitis from the mid transverse colon through the sigmoid. 2. Mild-moderate ascites, which has increased. Reading Location: [facility] Chest CTA 11/19/24 15:18 IMPRESSION: No pulmonary embolism. 6.8 x 2.4 cm right pectoralis intramuscular hematoma with adjacent fat stranding. Similar in size when accounting for differences in measurement. Trace left pleural effusion. Mild centrilobular and paraseptal emphysema. Prominent mediastinal lymph nodes, largest right paratracheal node measuring 1.1cm in short axis diameter. Stable. Trace perihepatic free fluid. Mild atherosclerosis with coronary artery calcifications. Degenerative changes of the spine with dextroscoliosis. Reading Location: [address] Physical Exam Const oriented x3 and no apparent distress GI GI Narrative: Decreased abdominal distention, softer, minimal tenderness to palpation in upperabdominal quadrants. Mild tenderness palpation lower abdominal quadrants. Assessment & Plan Assessment/Plan (1) Abnormal CT scan, colon: PLAN: Patient is 64-year-old female admitted to the ICU 2 days ago with concern for sepsis after a presentation with chest pain and significant shortness of breath. Additionally, CT imaging was completed showing concern for possible small bowel obstruction as well as a "abrupt" transition of the sigmoid colon concerning for possible "focal colitis". Repeat CT imaging with enteral contrast (both p.o. and NE) yesterday showed no evidence of bowel obstruction and no focal narrowing of the colon. However, didconfirm generalized appearance of colitis. Based on the distribution of the wall thickening and patient's presentation I am suspicious for an ischemic etiology. Since her admission patient's blood pressure has been stable as normal. She tolerated a diet advanced to clear liquids yesterday and her abdominal exam is improved today. She does describe some shifting tenderness which I believed to be more related to her stool burden. Given her clinical improvement recommend advance to transitional diet. Additionally counseled patient about the risks she is taking on with her continued tobacco habit and advised her to be more vigilant to her hydration status. Patient confirmed understanding of this information. Ej Brown MD General Surgery Endocrine Surgery Pager: [facility] [address] [place] [address], Outpatient [facility], [address] [place] [address] Office: [phone] Charges/Coding Visit Charges Inpatient E&M: 97938 Subs Hosp L2 11/20/24827 <Electronically signed by Ej Brown MD> Cosigner Signature (if applicable): CC: ~ Signed [facility] Work Phone: Progress note Author Kenny Pompa [facility] Note Date/Time November 20, 2024 8 :34am [facility] Medical Records Department [address] [place] [id number] Progress Note - Hospitalist 11/20/24823 MR#: [id number] Acct: [id number] Name: DAVID ALDRICH Codi Rep #:[id number] : 1960 64 From: Kenny Munguia PCP: CB Landaverde Status:ADM I N Location: ICU [place] [address] 3-1 Reason for Visit Chief Complaint: SOB, Wheezing and Diaphoresis. Objective Data Objective Data Vital Signs: Vital Signs Temp Pulse Resp BP Pulse Ox O2 Del Method O2 Flow Rate 99 F 98 27 H 126/58 H 97 Room Air 2 11/20/24 04:00 11/20/24 07:00 11/20/24 07:00 11/20/24 07:00 11/20/24 07:00 11/20/24 07:00 11/18/24 22:45 FiO2 28 11/18/24 21:15 Oxygen Flow Rate (L/min) 2 Oxygen Delivery Method Room Air Weight: 166 lb 0.129 oz Body Mass Index (BMI) 31.3 Intake & Output: Intake and Output for Last 24 Hours 11/18/24 11/19/24 11/20/24 23:59 23:59 23:59 Intake Total 3034.55 / 3034.55 3168.67 / 3174.27 87.40 / 87.40 Output Total 2024 550 / 550 Balance 3034.55 / 3034.55 1143.67 / 1149.27 -462.60 / -462.60 Lab / Micro Data 11/20/24 05:30 11/20/24 05:30 Labs: Laboratory Results - last 24 hr 11/19/24 12:57: POC Glucose 180 H 11/19/24 18:32: POC Glucose 142 H 11/20/24 05:06: POC Glucose 143 H 11/20/24 05:30: WBC 17.8 H, RBC 3.18 L, Hgb 10.2 L, Hct 28.7 L, MCV 90.3, MCH 32.1 H, MCHC 35.5, RDW Std Deviation 45.4 H, RDW Coeff of Panchito 13.6, Plt Count 192, MPV 9.8, Immature Gran % (Auto) 0.300, Neut % (Auto) 86.5 H, Lymph % (Auto)3.9 L, Sebastian % (Auto) 9.1, Eos % (Auto) 0.0, Baso % (Auto) 0.2, Absolute Neuts (auto) 15.4 H, Absolute Lymphs (auto) 0.70 L, Nucleated RBC % 0, Differential Comment , Toxic Vacuolation 1+, Platelet Estimate ADEQUATE, RBC Morphology NORM C+C, Sodium 134, Potassium 3.9, Chloride 106, Carbon Dioxide 15.2 L, Anion Gap 13, BUN 27 H, Creatinine 1.29 H, Estim Creat Clear Calc 41.43 L, Est GFR (MDRD) Non-Af 47 L, BUN/Creatinine Ratio 20.9 H, Glucose 157 H, Calcium 7.8 Micro: Microbiology 11/19/24 08:25 Nasal Secretion MRSA (PCR) - Final 11/19/24 04:03 Mucosa - Nasopharyngeal Respiratory Panel (PCR) - Final 11/18/24 21:04 Mucosa - Nose SARS-CoV-2, Influenza & RSV (PCR) - Final Radiography Diagnostic Testing: Radiology Impression Echocardiogram 11/19/24 02:04 Interpretation Summary Technically difficult study with suboptimal images. Mild concentric left ventricular hypertrophy. The left ventricular ejection fraction is 65 %. Stage 1 diastolic dysfunction. Ordering Physician: Romeo Khan Referring Physician: LULU SWANSON Performed By: Agnieszka Brenner RCS Venous Doppler Study 11/19/24 04:21 Interpretation Summary Deep veins of the lower extremities are bilaterally patent and compressible segmentally. There is no evidence of deep vein thrombosis on either side. Valvular competence appears intact within the proximal deep venous systems bilaterally. The great saphenous veins appear bilaterally patent and compressible segmentally. Ordering Physician: Romeo Khan Referring Physician: Lulu Swanson Performed By: Amy Sidhu, DEMETRAT Abdomen CT 11/19/24 15:18 IMPRESSION: 1. Acute colitis from the mid transverse colon through the sigmoid. 2. Mild-moderate ascites, which has increased. Reading Location: [facility] Chest CTA 11/19/24 15:18 IMPRESSION: No pulmonary embolism. 6.8 x 2.4 cm right pectoralis intramuscular hematoma with adjacent fat stranding. Similar in size when accounting for differences in measurement. Trace left pleural effusion. Mild centrilobular and paraseptal emphysema. Prominent mediastinal lymph nodes, largest right paratracheal node measuring 1.1cm in short axis diameter. Stable. Trace perihepatic free fluid. Mild atherosclerosis with coronary artery calcifications. Degenerative changes of the spine with dextroscoliosis. Reading Location: [address] Physical Exam Narrative Seen and examined Patient has right pectoralis muscle hematoma after several unsuccessful attemptson right subclavian vein CVC catheter and then it was inserted on left subclavian vein. Mild tenderness in right subclavian region. Levophed drip is on hold. Earlier, patient admitted with chief complaint of chest pain and shortness of breath and nausea. Chest pain was localized in midsternal, sharp and states that she felt like she could not breathe. No hypoxia. Mild tachypnea. Patient denies abdominal pain. Bowel obstruction was ruled out. She had a large formed brown-colored stool. Had intermittent abdominal pain Physical exam General: Alert, Oriented x3, Cooperative HEENT: Atraumatic, PERRLA, EOMI, Normocephalic. Oral: No Gingival or Mucosal Lesions/ Ulcerations Neck: Supple, No JVD, Negative Carotid Bruits Chest wall/Lungs: Bruise around right subclavian region with needle peres. Air entry diminished in bilateral lung bases. No crepitation/rhonchi Cardiovascular: Sinus rhythm, Normal S1,S2, No M/G/R Abdomen: Bowel Sounds sluggish, Soft, Non Tender, Non-Distended : Aguiar catheter dark urine. No renal angle tenderness. No suprapubic tenderness. Extremities: No edema, Capillary Refill Less than 3 Seconds Skin: No rashes, No breakdown Musculoskeletal: No Tenderness to Palpation of Joints or Extremities Neurological: Cranial nerves II-XII grossly intact, DTR 2+/4. No acute focal neurological deficit. Psych/Mental Status: Normal Affect, Appropriate. Assessment & Plan Assessment/Plan (1) COPD exacerbation: (2) Bronchitis: (3) Acute respiratory failure: QUALIFIERS: Respiratory failure complication: unspecified whether with hypoxia or hypercapnia Qualified Code(s): J96.00 - Acute respiratory failure, unspecified whether with hypoxia or hypercapnia (4) Shock circulatory: (5) Adrenal insufficiency: (6) Severe hypotension: (7) Hypothermia: QUALIFIERS: Encounter type: initial encounter Qualified Code(s): T68.XXXA - Hypothermia, initial encounter (8) Acidosis, lactic: (9) Acquired polycythemia vera: (10) Hypothyroidism: QUALIFIERS: Hypothyroidism type: unspecified Qualified Code(s): E03.9 - Hypothyroidism, unspecified (11) Obesity (BMI 30.0-34.9): (12) NAFLD (nonalcoholic fatty liver disease): (13) Focal active colitis: (14) Duodenitis: (15) Elevated d-dimer: PLAN: Plan This is a 63-year-old female brought by EMS for shortness of breath complaint ofchest pain and nausea and diaphoretic diaphoretic. As per ED physician, she denied chest patient. Complain of nonproductive cough with no history of VTE. Denies leg pain swelling discoloration 1. Acute hypoxic respiratory failure due to acute exacerbation of COPD requiring BiPAP: Chest CTA does not show evidence of PE but chronic fibroemphysematous pulmonary changes with mediastinal lymphadenopathy and soft tissue thickening in bilateral hilar regions, may represent lymphadenopathy or peribronchial infiltrates Empirically started on IV Zosyn. Patient is being managed on scheduled bronchodilator, IV Solu-Medrol, Mucinex, incentive spirometry and Pep. 11/20: Patient currently on room air. No respiratory distress and breathing is on baseline. 2. Undifferentiated Shock most likely hemorrhagic/distributive shock, less septic shock with Severe Hypotension of 72/25 mmHg, Severe Hypothermia of 94.4 ?F, Lactic Acidosis of 3 mmol/L and Leukocytosis of 13.9 K all present on admission: Patient on Levophed drip, to keep MAP more than 65 mmHg through left subclavian CVC catheter inserted in ED. Patient was on RAD hugger to raise core temperature. Most recent temperature 98.1 ?F. Lactic acid still elevated 3.0, 2.1 and 2.7. Echo is ordered. CT shows large right pectoralis muscle hematoma 3.9 x 8.4 x 9.1 cm with secondary mild displacement and edema of the right pectoralis muscle. Mild surrounding soft tissue edema. CT does not show significant consolidation but minimal bilateral basilar atelectatic changes, unchanged emphysema/chronic interstitial thickening and unchanged mildly enlarged mediastinal lymph nodes largest measuring 1.2 cm. Discussed with retirement benefits specialist requesting consult as patient is on IV Levophed drip for shock 11/20: Currently Levophed drip is on hold. Patient was seen by vascular surgeonyesterday and currently not on antiplatelet or antithrombotic agent/DVT prophylaxis because of hematoma as mentioned above 3. Polycythemia with hemoglobin of 18.9 g/dL present on admission (suspected graciela due to combination of chronic tobacco abuse and DENNIS) - Screen for SHONDA-2 mutation. Unclear whether it is true because previous hemoglobin was 13.8/40.5 in July 2020 but it was 18.9/55.1 on 11/18. Most recent 12.6/37.1% today. Patient has leukocytosis 21.4 increased from 13.9 and platelet count normal. 11/20: Hemoglobin dropped further to 10.2/28.7%. Platelet count 192K. Leukocytosis improving. 4. Suspicion of focal sigmoid colitis/ischemic colitis: Discussed with surgeon Dr. Brown on 11/19/[address] images was reviewed with him. CT imaginginitially reported abnormal with abrupt transition of sigmoid colon concerning for possible focal colitis or concern/possible small bowel obstruction. Repeat CT imaging with p.o. and NE contrast showed no evidence of bowel obstruction andno focal narrowing of colon. There was concern of colitis and/or ischemic colitis. Currently on clear liquid. Bowel sound present. Subclinical hypothyroidism: Elevated TSH of 16.9, free T40.9, low normal 5. Obesity (class I); with BMI of 31.2 this admission plus NAFLD adding to the burden of disease outlined from #1 - #4 - Weight loss will be recommended. Thiscomplicates her case and may hamper recovery. 6. DM-2; of unknown control on metformin daily - Keep NPO for now. Hold metformin until further notice with elevated lactate. FSBS q. 6 hours plus lowest- intensity SSI. Check HgbA1c to objectively evaluate quality of diabetic control. 7. Essential hypertension; on lisinopril - Hold scheduled antihypertensives in light of #2. 8. Hyperlipidemia; on atorvastatin - Resume statin when patient can tolerate oral intake. 9. History of bilateral carotid artery stenosis; s/p Right CEA at [facility] (2012) - Noted. 10. PAD - Stable. Lower extremity Doppler ordered as D-dimer was critically high. 12. Schizophrenia and Depression; on thiothixene twice daily, buspirone 3 timesdaily, bupropion twice daily plus imipramine nightly - Hold oral agents at this time. 13. Chronic insomnia; on zolpidem nightly - Noted. 16. GERD; on pantoprazole - Resume PPI IV as outlined in #1. 17. OA; on ibuprofen: Discontinue ketorolac. Hold NSAIDs because of hematoma 18. DVT prophylaxis - hold Lovenox. Pharmacological prophylaxis contraindicated in view of large hematoma and right pectoralis muscle Clinical Impression(s) from Imaging Studies Chest X-Ray 11/18/24 20:50 IMPRESSION: No acute cardiopulmonary disease. Reading Location: [facility] Chest X-Ray 11/18/24 22:34 IMPRESSION: Left subclavian central venous catheter with tip at the lower SVC. Unchanged lung aeration. No pneumothorax or sizable pleural effusion. Reading Location: [facility] Chest CTA 11/18/24 22:41 IMPRESSION: No CT evidence of a pulmonary embolism. Mild chronic fibroemphysematous pulmonary changes, as described above. Mediastinal lymphadenopathy. Soft tissue thickening in the bilateral hilar regions may represent hilar lymphadenopathy or peribronchial infiltrates. Please correlate clinically for bronchitis. Moderate thoracic spondylosis with mild dextro convex scoliosis. Reading Location: [facility] Abdomen/Pelvis CT 11/19/24 00:03 IMPRESSION: 1. Abrupt narrowing of the proximal sigmoid colon with a short segment of wall thickening. This could represent focal colitis or a mucosal mass lesion. 2. Mild wall thickening of the duodenum with mild adjacent fat stranding, concerning for duodenitis. 3. Mild dilatation of the large and small bowel proximal to the focal narrowingin the proximal sigmoid colon, which could represent a low-grade partial small bowel obstruction. 4. Large amount of stool within the distal sigmoid colon and rectum. 5. Small hiatal hernia. 6. Moderate to severe thoracolumbar spondylosis with mild lumbar scoliosis. Reading Location: [facility] Echocardiogram 11/19/24 02:04 Interpretation Summary Technically difficult study with suboptimal images. Mild concentric left ventricular hypertrophy. The left ventricular ejection fraction is 65 %. Stage 1 diastolic dysfunction. Ordering Physician: Romeo Khan Referring Physician: LULU SWANSON Performed By: Agnieszka Brenner RCS Chest CT 11/19/24 03:46 IMPRESSION: Coronary artery calcification (CAC) is is present Acute soft tissue hematoma is noted underlying the right pectoralis muscle in the interim measuring 3.9 x 8.4 x 9.1 cm in its largest anteroposterior, transverse and craniocaudal dimensions respectively. Secondary mild displacement and edema of the right pectoralis muscle. Mild surrounding soft tissue edema. Unchanged mild bilateral basilar pleural thickening/effusions. Unchanged minimal bilateral basilar atelectatic pulmonary changes. Unchanged emphysema/chronic interstitial thickening. Unchanged mildly enlarged mediastinal lymph nodes with the largest measuring 1.2cm. Chronic deformity of the axillary portion of the right 6th rib, unchanged. Reading Location: [place] [address] Charges/Coding Visit Charges Inpatient E&M: 37904 Subs Hosp L3 11/20/24 0834 <Electronically signed by Kenny Pompa MD> Cosigner Signature (if applicable): CC: ~ Signed [facility] Work Phone: Progress note Author Ej Brown [facility] Note Date/Time November 21, 2024 1 :03pm [facility] Medical Records Department [address] [facility] [place] [address] Progress Note - Surgery 11/21/24 0833 MR#: [id number] Acct: [id number] Name: VALDEMARDAVID Codi Rep #:[id number] : 1960 64 From: Ej Munguia PCP: Lulu Swanson NP-C Status:ADM I N Location: [place] [address] Subjective Subjective Patient seen and examined during AM rounds. She is found sitting out of bed in the chair. She states she is feeling somewhat better today. She denies any difficulty with tolerating diet. She confirms bedside nursing's report that shehad another loose bowel movement today. She denies any abdominal discomfort except for when coughing. Objective Data Objective Data Vital Signs: Vital Signs Temp Pulse Resp BP Pulse Ox O2 Del Method O2 Flow Rate 98.9 F 92 19 H 160/77 H 94 Nasal Cannula 2 11/21/24 08:00 11/21/24 08:00 11/21/24 08:00 11/21/24 08:00 11/21/24 08:00 11/21/24 08:00 11/21/24 08:00 FiO2 28 11/18/24 21:15 Oxygen Flow Rate (L/min) 2 Oxygen Delivery Method Nasal Cannula Weight: 172 lb 9.951 oz Body Mass Index (BMI) 32.5 Intake & Output: Intake and Output for Last 24 Hours 11/19/24 11/20/24 11/21/24 23:59 23:59 23:59 Intake Total 3168.67 / 3174.27 537.40 / 537.40 414.25 / 414.25 Output Total 2024 / 2024 1700 / 2200 900 / 900 Balance 1143.67 / 1149.27 -1162.60 / -1662.60 -485.75 / -485.75 Lab / Micro Data 11/21/24 03:35 11/21/24 03:35 Labs: Laboratory Results - last 24 hr 11/20/24 12:01: POC Glucose 123 H 11/20/24 16:51: POC Glucose 112 H 11/20/24 23:35: POC Glucose 127 H 11/21/24 03:35: WBC 11.3 H, RBC 2.71 L, Hgb 8.7 L, Hct 24.1 L, MCV 88.9, MCH 32.1 H, MCHC 36.1 H, RDW Std Deviation 44.9 H, RDW Coeff of Panchito 13.7, Plt Count 151, MPV 9.9, Immature Gran % (Auto) 0.200, Neut % (Auto) 89.5 H, Lymph % (Auto)3.9 L, Sebastian % (Auto) 6.2, Eos % (Auto) 0.0, Baso % (Auto) 0.2, Absolute Neuts (auto) 10.1 H, Absolute Lymphs (auto) 0.44 L, Nucleated RBC % 0, Differential Comment SCANNED, Sodium 133, Potassium 3.6, Chloride 105, Carbon Dioxide 17.7 L,Anion Gap 11, BUN 17, Creatinine 0.82, Estim Creat Clear Calc 65.18, Est GFR (MDRD) Non-Af 80, BUN/Creatinine Ratio 21.2 H, Glucose 137 H, Calcium 7.9 11/21/24 05:33: POC Glucose 116 H Micro: Microbiology 11/18/24 21:40 Blood Culture (Wb) - Anticubital Right Blood Culture - Preliminary No growth in 48 hours. 11/18/24 21:10 Blood Culture (Wb) - Anticubital Left Blood Culture - Preliminary No growth in 48 hours. 11/19/24 08:25 Nasal Secretion MRSA (PCR) - Final 11/19/24 04:03 Mucosa - Nasopharyngeal Respiratory Panel (PCR) - Final 11/18/24 21:04 Mucosa - Nose SARS-CoV-2, Influenza & RSV (PCR) - Final Physical Exam Const oriented x3 and no apparent distress Resp normal respiratory effort GI GI Narrative: Mildly distended, soft, nontender palpation x 4 quadrants Assessment & Plan Assessment/Plan (1) Abnormal CT scan, colon: PLAN: Patient is 64-year-old female admitted to the ICU 2 days ago with concern for sepsis after a presentation with chest pain and significant shortness of breath. Additionally, CT imaging was completed showing concern for possible small bowel obstruction as well as a "abrupt" transition of the sigmoid colon concerning for possible "focal colitis". Repeat CT imaging with enteral contrast (both p.o. and NE) yesterday showed no evidence of bowel obstruction and no focal narrowing of the colon. However, didconfirm generalized appearance of colitis. Based on the distribution of the wall thickening and patient's presentation I am suspicious for an ischemic etiology. Patient's blood pressure has remained normal to slightly high. She reports tolerance of her diet. She is experiencing ongoing bowel activity but nursing reported that the last stool was somewhat darker. She is not experiencing any abdominal discomfort and her abdominal exam is benign. Given the finding of a declining hemoglobin and reports of potentially darker stool I have requested a Hemoccult study. At this point find no indication to pursue inpatient colonoscopy, but we will continue to watch closely as this may change depending on the trend of her hemoglobin and the result of this testing. Would favor engaging gastroenterology if this does appear to be the source of patient's anemia (I was not consult directly for management of patient's chest wall hematoma but I did examine this today and this appears to be stable/not expanding). Ej Brown MD General Surgery Endocrine Surgery Pager: [facility] [address] [place] [address], Outpatient [place], [address] [place] [address] Office: [phone] Charges/Coding Visit Charges Inpatient E&M: 27361 Subs Hosp L2 11/21/24 1303 <Electronically signed by Ej Brown MD> Cosigner Signature (if applicable): CC: ~ Signed [facility] Work Phone: Progress note Author Kenny Pompa [facility] Note Date/Time November 21, 2024 8 :52am [facility] Medical Records Department [address] [place] [address] Progress Note - Hospitalist 11/21/24838 MR#: [id number] Acct: [id number] Name: DAVID ALDRICH Rep #:[id number] : 1960 64 From: Kenny Munguia PCP: CB Landaverde Status:ADM I N [facility] Reason for Visit Chief Complaint: SOB, Wheezing and Diaphoresis. Objective Data Objective Data Vital Signs: Vital Signs Temp Pulse Resp BP Pulse Ox O2 Del Method O2 Flow Rate 98.9 F 92 19 H 160/77 H 94 Nasal Cannula 2 11/21/24 08:00 11/21/24 08:00 11/21/24 08:00 11/21/24 08:00 11/21/24 08:00 11/21/24 08:00 11/21/24 08:00 FiO2 28 11/18/24 21:15 Oxygen Flow Rate (L/min) 2 Oxygen Delivery Method Nasal Cannula Weight: 172 lb 9.951 oz Body Mass Index (BMI) 32.5 Intake & Output: Intake and Output for Last 24 Hours 11/19/24 11/20/24 11/21/24 23:59 23:59 23:59 Intake Total 3168.67 / 3174.27 537.40 / 537.40 414.25 / 414.25 Output Total 2024 1700 / 2200 900 / 900 Balance 1143.67 / 1149.27 -1162.60 / -1662.60 -485.75 / -485.75 Lab / Micro Data 11/21/24 03:35 11/21/24 03:35 Labs: Laboratory Results - last 24 hr 11/20/24 12:01: POC Glucose 123 H 11/20/24 16:51: POC Glucose 112 H 11/20/24 23:35: POC Glucose 127 H 11/21/24 03:35: WBC 11.3 H, RBC 2.71 L, Hgb 8.7 L, Hct 24.1 L, MCV 88.9, MCH 32.1 H, MCHC 36.1 H, RDW Std Deviation 44.9 H, RDW Coeff of Panchito 13.7, Plt Count 151, MPV 9.9, Immature Gran % (Auto) 0.200, Neut % (Auto) 89.5 H, Lymph % (Auto)3.9 L, Sebastian % (Auto) 6.2, Eos % (Auto) 0.0, Baso % (Auto) 0.2, Absolute Neuts (auto) 10.1 H, Absolute Lymphs (auto) 0.44 L, Nucleated RBC % 0, Differential Comment SCANNED, Sodium 133, Potassium 3.6, Chloride 105, Carbon Dioxide 17.7 L,Anion Gap 11, BUN 17, Creatinine 0.82, Estim Creat Clear Calc 65.18, Est GFR (MDRD) Non-Af 80, BUN/Creatinine Ratio 21.2 H, Glucose 137 H, Calcium 7.9 11/21/24 05:33: POC Glucose 116 H Micro: Microbiology 11/18/24 21:40 Blood Culture (Wb) - Anticubital Right Blood Culture - Preliminary No growth in 48 hours. 11/18/24 21:10 Blood Culture (Wb) - Anticubital Left Blood Culture - Preliminary No growth in 48 hours. 11/19/24 08:25 Nasal Secretion MRSA (PCR) - Final 11/19/24 04:03 Mucosa - Nasopharyngeal Respiratory Panel (PCR) - Final 11/18/24 21:04 Mucosa - Nose SARS-CoV-2, Influenza & RSV (PCR) - Final Physical Exam Narrative Seen and examined Patient off Levophed drip for more than 24 hours. Right chest wall hematoma minimally to no tenderness. Right shoulder/lateral axillary region mild bruise. Left subclavian CVC catheter. No chest pain Tolerated transitional diet for Earlier, patient admitted with chief complaint of chest pain and shortness of breath and nausea. Chest pain was localized in midsternal, sharp and states that she felt like she could not breathe. Patient denies abdominal pain. Bowel obstruction was ruled out. She had a large formed brown-colored stool. Physical exam General: Alert, Oriented x3, Cooperative HEENT: Atraumatic, PERRLA, EOMI, Normocephalic. Oral: No Gingival or Mucosal Lesions/ Ulcerations Neck: Supple, No JVD, Negative Carotid Bruits Chest wall/Lungs: Bruise around right subclavian region with needle peres with subcutaneous bruise. Air entry diminished in bilateral lung bases. No crepitation/rhonchi Cardiovascular: Sinus rhythm, Normal S1,S2, No M/G/R Abdomen: Bowel Sounds sluggish, Soft, Non Tender, Non-Distended : Aguiar catheter dark urine. No renal angle tenderness. No suprapubic tenderness. Extremities: No edema, Capillary Refill Less than 3 Seconds Skin: No rashes, No breakdown Musculoskeletal: No Tenderness to Palpation of Joints or Extremities Neurological: Cranial nerves II-XII grossly intact, DTR 2+/4. No acute focal neurological deficit. Psych/Mental Status: Normal Affect, Appropriate. Assessment & Plan Assessment/Plan (1) COPD exacerbation: (2) Bronchitis: (3) Acute respiratory failure: QUALIFIERS: Respiratory failure complication: unspecified whether with hypoxia or hypercapnia Qualified Code(s): J96.00 - Acute respiratory failure, unspecified whether with hypoxia or hypercapnia (4) Shock circulatory: (5) Adrenal insufficiency: (6) Severe hypotension: (7) Hypothermia: QUALIFIERS: Encounter type: initial encounter Qualified Code(s): T68.XXXA - Hypothermia, initial encounter (8) Acidosis, lactic: (9) Acquired polycythemia vera: (10) Hypothyroidism: QUALIFIERS: Hypothyroidism type: unspecified Qualified Code(s): E03.9 - Hypothyroidism, unspecified (11) Obesity (BMI 30.0-34.9): (12) NAFLD (nonalcoholic fatty liver disease): (13) Focal active colitis: (14) Duodenitis: (15) Elevated d-dimer: PLAN: Plan This is a 63-year-old female brought by EMS for shortness of breath complaint ofchest pain and nausea and diaphoretic diaphoretic. As per ED physician, she denied chest patient. Complain of nonproductive cough with no history of VTE. Denies leg pain swelling discoloration 1. Acute hypoxic respiratory failure due to acute exacerbation of COPD requiring BiPAP: Chest CTA does not show evidence of PE but chronic fibroemphysematous pulmonary changes with mediastinal lymphadenopathy and soft tissue thickening in bilateral hilar regions, may represent lymphadenopathy or peribronchial infiltrates Empirically started on IV Zosyn. Patient is being managed on scheduled bronchodilator, IV Solu-Medrol, Mucinex, incentive spirometry and Pep.. 11/21: Patient on 2 L of oxygen. IV Solu-Medrol changed to prednisone from tomorrow. Continue rest of the treatment. Incentive spirometry encouraged. 2. Undifferentiated Shock most likely hemorrhagic/distributive shock, less septic shock with Severe Hypotension of 72/25 mmHg, Severe Hypothermia of 94.4 ?F, Lactic Acidosis of 3 mmol/L and Leukocytosis of 13.9 K all present on admission: Patient on Levophed drip, to keep MAP more than 65 mmHg through left subclavian CVC catheter inserted in ED. Patient was on RAD hugger to raise core temperature. Most recent temperature 98.1 ?F. Lactic acid still elevated 3.0, 2.1 and 2.7. Echo is ordered. CT shows large right pectoralis muscle hematoma 3.9 x 8.4 x 9.1 cm with secondary mild displacement and edema of the right pectoralis muscle. Mild surrounding soft tissue edema. CT does not show significant consolidation but minimal bilateral basilar atelectatic changes, unchanged emphysema/chronic interstitial thickening and unchanged mildly enlarged mediastinal lymph nodes largest measuring 1.2 cm. Discussed with retirement benefits specialist requesting consult as patient is on IV Levophed drip for shock 11/21: Shock has resolved. Patient off Levophed drip for more than 24 hours. Downgrade to PCU patient had 3 days of IV Zosyn and Zithromax. Respiratory panel, MRSA PCR negative. Blood culture negative for more than 48 hours. Continue IV Zosyn to cover peribronchial/interstitial pneumonia and possible duodenitis/colitis. 3. Polycythemia with hemoglobin of 18.9 g/dL present on admission (suspected graciela due to combination of chronic tobacco abuse and DENNIS) compounding #1 & #2 - Screen for SHONDA-2 mutation. Unclear whether it is true because previous hemoglobin was 13.8/40.5 in July 2020 but it was 18.9/55.1 on 11/18. Most recent 12.6/37.1% today. Patient has leukocytosis 21.4 increased from 13.9 and platelet count normal. 11/21: Acute anemia due to blood loss from right pectoralis muscle hematoma: H&H8.7/24.1%. Platelet count 151K. No antithrombotic or antiplatelet agent. TAM, present on admission: Probably, from shock, prerenal: Patient baseline creatinine around 0.8-1.0. Came with 1.36 point of 1.57 now back to baseline 0.82. TAM resolved 4. Subclinical hypothyroidism: Elevated TSH of 16.9, free T40.9, low normal Change IV levothyroxine to oral. 5. Obesity (class I); with BMI of 31.2 this admission plus NAFLD adding to the burden of disease outlined from #1 - #4 - Weight loss will be recommended. Thiscomplicates her case and may hamper recovery. 6. DM-2; of unknown control on metformin daily - Keep NPO for now. Hold metformin until further notice with elevated lactate. FSBS q. 6 hours plus lowest- intensity SSI. Check HgbA1c to objectively evaluate quality of diabetic control. 7. Essential hypertension; on lisinopril - Hold scheduled antihypertensives in light of #2. 8. Hyperlipidemia; on atorvastatin - Resume statin when patient can tolerate oral intake. 9. History of bilateral carotid artery stenosis; s/p Right CEA at [facility] (2012) - Noted. 10. PAD - Stable. Lower extremity Doppler ordered as D-dimer was critically high. 12. Schizophrenia and Depression; on thiothixene twice daily, buspirone 3 timesdaily, bupropion twice daily plus imipramine nightly - Hold oral agents at this time. 13. Chronic insomnia; on zolpidem nightly - Noted. 16. GERD; on pantoprazole - Resume PPI IV as outlined in #1. 17. OA; on ibuprofen: Discontinue ketorolac. Hold NSAIDs because of hematoma 18. DVT prophylaxis - hold Lovenox. Pharmacological prophylaxis contraindicated in view of large hematoma and right pectoralis muscle Clinical Impression(s) from Imaging Studies Chest X-Ray 11/18/24 20:50 IMPRESSION: No acute cardiopulmonary disease. Reading Location: [facility] Chest X-Ray 11/18/24 22:34 IMPRESSION: Left subclavian central venous catheter with tip at the lower SVC. Unchanged lung aeration. No pneumothorax or sizable pleural effusion. Reading Location: [facility] Chest CTA 11/18/24 22:41 IMPRESSION: No CT evidence of a pulmonary embolism. Mild chronic fibroemphysematous pulmonary changes, as described above. Mediastinal lymphadenopathy. Soft tissue thickening in the bilateral hilar regions may represent hilar lymphadenopathy or peribronchial infiltrates. Please correlate clinically for bronchitis. Moderate thoracic spondylosis with mild dextro convex scoliosis. Reading Location: [facility] Abdomen/Pelvis CT 11/19/24 00:03 IMPRESSION: 1. Abrupt narrowing of the proximal sigmoid colon with a short segment of wall thickening. This could represent focal colitis or a mucosal mass lesion. 2. Mild wall thickening of the duodenum with mild adjacent fat stranding, concerning for duodenitis. 3. Mild dilatation of the large and small bowel proximal to the focal narrowingin the proximal sigmoid colon, which could represent a low-grade partial small bowel obstruction. 4. Large amount of stool within the distal sigmoid colon and rectum. 5. Small hiatal hernia. 6. Moderate to severe thoracolumbar spondylosis with mild lumbar scoliosis. Reading Location: [facility] Echocardiogram 11/19/24 02:04 Interpretation Summary Technically difficult study with suboptimal images. Mild concentric left ventricular hypertrophy. The left ventricular ejection fraction is 65 %. Stage 1 diastolic dysfunction. Ordering Physician: Romeo Khan Referring Physician: LULU HAAGEN Performed By: Agnieszka Brenner RCS Chest CT 11/19/24 03:46 IMPRESSION: Coronary artery calcification (CAC) is is present Acute soft tissue hematoma is noted underlying the right pectoralis muscle in the interim measuring 3.9 x 8.4 x 9.1 cm in its largest anteroposterior, transverse and craniocaudal dimensions respectively. Secondary mild displacement and edema of the right pectoralis muscle. Mild surrounding soft tissue edema. Unchanged mild bilateral basilar pleural thickening/effusions. Unchanged minimal bilateral basilar atelectatic pulmonary changes. Unchanged emphysema/chronic interstitial thickening. Unchanged mildly enlarged mediastinal lymph nodes with the largest measuring 1.2cm. Chronic deformity of the axillary portion of the right 6th rib, unchanged. Reading Location: [place] [address] Charges/Coding Visit Charges Inpatient E&M: 39250 Subs Hosp L3 11/21/24 0852 <Electronically signed by Kenny Pompa MD> Cosigner Signature (if applicable): CC: ~ Signed [facility] Work Phone: Progress note Author Lisa Pelaez [facility] Note Date/Time November 22, 2024 1 0:41am [facility] Medical Records Department [address] [place] [address] Progress Note - Surgery 11/22/24827 MR#: [id number] Acct: [id number] Name: DAVID ALDRICH Rep #:[id number] : 1960 64 From: Lisa BURGOS PA-C PCP: CB Landaverde Status:ADM I N Location: [place] [address] Subjective Subjective Patient evaluated resting comfortably in bed. She denies any abdominal pain, nausea or vomiting. She notes passing flatus. She had bowel movements yesterday.No bowel movements today yet. Objective Data Objective Data Vital Signs: Vital Signs Temp Pulse Resp BP Pulse Ox O2 Del Method O2 Flow Rate 98.8 F 99 16 124/70 H 94 Nasal Cannula 3 11/22/24 03:10 11/22/24 03:10 11/22/24 03:10 11/22/24 03:10 11/22/24 03:10 11/22/24 07:44 11/22/24 03:10 FiO2 28 11/18/24 21:15 Oxygen Flow Rate (L/min) 3 Oxygen Delivery Method Nasal Cannula Weight: 165 lb 9.074 oz Body Mass Index (BMI) 31.2 Intake & Output: Intake and Output for Last 24 Hours 11/20/24 11/21/24 11/22/24 23:59 23:59 23:59 Intake Total 537.40 / 537.40 526.75 / 586.75 110 / 110 Output Total 1700 / 2200 1100 / 1100 0 / 0 Balance -1162.60 / -1662.60 -573.25 / -513.25 110 / 110 Lab / Micro Data 11/22/24 04:50 11/22/24 04:50 Labs: Laboratory Results - last 24 hr 11/21/24 11:18: POC Glucose 154 H 11/21/24 17:18: POC Glucose 133 H 11/21/24 21:12: POC Glucose 114 H 11/22/24 04:50: WBC 12.7 H, RBC 3.03 L, Hgb 9.6 L, Hct 26.8 L, MCV 88.4, MCH 31.7, MCHC 35.8, RDW Std Deviation 43.9, RDW Coeff of Panchito 13.5, Plt Count 191, MPV 10.2, Immature Gran % (Auto) 0.900, Neut % (Auto) 83.0 H, Lymph % (Auto) 7.9L, Sebastian % (Auto) 7.4, Eos % (Auto) 0.5, Baso % (Auto) 0.3, Absolute Neuts (auto)10.5 H, Absolute Lymphs (auto) 1.00, Nucleated RBC % 0, Differential Comment SCANNED, Sodium 134, Potassium 3.5, Chloride 104, Carbon Dioxide 20.0 L, Anion Gap 10, BUN 17, Creatinine 0.73, Estim Creat Clear Calc 73.12, Est GFR (MDRD) Non-Af 92, BUN/Creatinine Ratio 23.2 H, Glucose 125 H, Calcium 8.4 Micro: Microbiology 11/18/24 21:40 Blood Culture (Wb) - Anticubital Right Blood Culture - Preliminary No growth in 48 hours. 11/18/24 21:10 Blood Culture (Wb) - Anticubital Left Blood Culture - Preliminary No growth in 48 hours. 11/19/24 08:25 Nasal Secretion MRSA (PCR) - Final 11/19/24 04:03 Mucosa - Nasopharyngeal Respiratory Panel (PCR) - Final 11/18/24 21:04 Mucosa - Nose SARS-CoV-2, Influenza & RSV (PCR) - Final Physical Exam GI GI Narrative: Abdomen- soft, nontender. Assessment & Plan Assessment/Plan (1) Abnormal CT scan, colon: PLAN: I am following this patient in conjunction with Dr. Brown. He has independently evaluated this patient. Labs reviewed No further dark stools per patient Recommend outpatient colonoscopy with Dr. Brown or Dr. Lanza (previous c- scopewas by him) We will follow this patient as needed From surgical standpoint, patient is ready for D/C Charges/Coding Visit Charges Inpatient E&M: 13770 Subs Hosp L2 11/22/24 1041 <Electronically signed by Lisa BURGOS PA-C> Cosigner Signature (if applicable): CC: ~ Signed [facility] Work Phone: Progress note Author Romeo Mina [facility] Note Date/Time November 22, 2024 1 0:38am [facility] Medical Records Department [address] [place] [address] Progress Note - Hospitalist 11/22/24 0934 MR#: [id number] Acct: [id number] Name: DAVID ALDRICH Rep #:[id number] : 1960 64 From: Romeo Mina MD PCP: PREMA LandaverdeC Status:ADM I N Location: [place] [address] Reason for Visit Chief Complaint: SOB, Wheezing and Diaphoresis. Subjective Subjective Patient is a 63-year-old lady who presented with shortness of breath and assessment of acute hypoxic respiratory failure secondary to COPD with acute exacerbation made started on noninvasive ventilation admitted to the intensive care unit stabilized and later transferred to U Objective Data Objective Data Vital Signs: Vital Signs Temp Pulse Resp BP Pulse Ox O2 Del Method O2 Flow Rate 98.1 F 101 H 18 143/78 H 97 Nasal Cannula 3 11/22/24 09:06 11/22/24 09:06 11/22/24 09:06 11/22/24 09:06 11/22/24 09:06 11/22/24 09:06 11/22/24 09:06 FiO2 28 11/18/24 21:15 Oxygen Flow Rate (L/min) 3 Oxygen Delivery Method Nasal Cannula Weight: 75.1 kg Body Mass Index (BMI) 31.2 Intake & Output: Intake and Output for Last 24 Hours 11/20/24 11/21/24 11/22/24 23:59 23:59 23:59 Intake Total 537.40 / 537.40 526.75 / 586.75 160 / 160 Output Total 1700 / 2200 1100 / 1100 0 / 0 Balance -1162.60 / -1662.60 -573.25 / -513.25 160 / 160 Lab / Micro Data 11/22/24 04:50 11/22/24 04:50 Labs: Laboratory Results - last 24 hr 11/21/24 11:18: POC Glucose 154 H 11/21/24 17:18: POC Glucose 133 H 11/21/24 21:12: POC Glucose 114 H 11/22/24 04:50: WBC 12.7 H, RBC 3.03 L, Hgb 9.6 L, Hct 26.8 L, MCV 88.4, MCH 31.7, MCHC 35.8, RDW Std Deviation 43.9, RDW Coeff of Panchito 13.5, Plt Count 191, MPV 10.2, Immature Gran % (Auto) 0.900, Neut % (Auto) 83.0 H, Lymph % (Auto) 7.9L, Sebastian % (Auto) 7.4, Eos % (Auto) 0.5, Baso % (Auto) 0.3, Absolute Neuts (auto)10.5 H, Absolute Lymphs (auto) 1.00, Nucleated RBC % 0, Differential Comment SCANNED, Sodium 134, Potassium 3.5, Chloride 104, Carbon Dioxide 20.0 L, Anion Gap 10, BUN 17, Creatinine 0.73, Estim Creat Clear Calc 73.12, Est GFR (MDRD) Non-Af 92, BUN/Creatinine Ratio 23.2 H, Glucose 125 H, Calcium 8.4 Micro: Microbiology 11/18/24 21:40 Blood Culture (Wb) - Anticubital Right Blood Culture - Preliminary No growth in 48 hours. 11/18/24 21:10 Blood Culture (Wb) - Anticubital Left Blood Culture - Preliminary No growth in 48 hours. 11/19/24 08:25 Nasal Secretion MRSA (PCR) - Final 11/19/24 04:03 Mucosa - Nasopharyngeal Respiratory Panel (PCR) - Final 11/18/24 21:04 Mucosa - Nose SARS-CoV-2, Influenza & RSV (PCR) - Final Physical Exam Narrative GENERAL: cooperative HEENT: Atraumatic; normocephalic EYES; Anicteric, Normal Conjunctiva NECK; supple, normal thyroid, RESPIRATORY: Diminished to auscultation CARDIOVASCULAR: Regular S1 S2, GI: soft, normoactive bowel sounds, : No Renal angle tenderness; EXTREMITIES: No edema, no clubbing, MUSCULOSKELETAL: no muscle wasting NEURO: Awake; no lateralizing signs. SKIN: Extensive bruising left upper chest PSYCH; Flat affect Assessment & Plan Assessment/Plan (1) Hematoma of right chest wall: (2) Duodenitis: (3) Acute respiratory failure: QUALIFIERS: Respiratory failure complication: unspecified whether with hypoxia or hypercapnia Qualified Code(s): J96.00 - Acute respiratory failure, unspecified whether with hypoxia or hypercapnia (4) Bronchitis: (5) Hypothyroidism: QUALIFIERS: Hypothyroidism type: unspecified Qualified Code(s): E03.9 - Hypothyroidism, unspecified PLAN: Plan Patient is a 63-year-old lady who presented with shortness of breath and assessment of acute hypoxic respiratory failure secondary to COPD with acute exacerbation made started on noninvasive ventilation admitted to the intensive care unit stabilized and later transferred to PCU 1. Acute hypoxic respiratory failure ? Secondary to COPD with acute exacerbation. 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 Patient managed with broad-spectrum antibiotic therapy with Zosyn as well as Solu-Medrol. Patient was managed on noninvasive ventilation BiPAP which has since been weaned off 2. Hemorrhagic shock ? Patient did develop huge hematoma in the pectoralis muscle following insertionof subclavian CVC. Patient was managed in the ICU with IV fluid as well as Levophed which has since been weaned off 3. Left upper chest hematoma ? Appears stable 4. Anemia ? Secondary to acute blood loss monitoring H&H and transfuse if patient becomes symptomatic or hemoglobin falls below 7 5.Polycythemia ? Which was present on admission with hemoglobin of 18.9 this was thought to be secondary to chronic hypoxia from COPD 6. Acute kidney injury ? Patient creatinine on admission was 1.36. At 1.57 down to 0.73 as of today 7. Acute colitis ? CT demonstrated abrupt narrowing of the proximal sigmoid colon with a short segment of wall thickening. This could represent focal colitis or a mucosal mass lesion. Plans for patient to follow-up with primary care physician to be referred for outpatient colonoscopy 8. Duodenitis ? On PPI 9. Hiatal hernia with GERD symptoms ? Patient is on PPI 10. Subclinical hypothyroidism ? Patient started on levothyroxine 11. Diabetes mellitus type 2 ? Patient is on metformin held on admission placed on Accu-Cheks ACHS with sliding scale coverage 12. Schizoaffective disorder -On thiothixene twice daily, buspirone 3 times daily, bupropion twice daily plusimipramine nightly. Held on admission and resumed 13. Dyslipidemia ?Patient is on statin therapy, continued at home dose 14. Peripheral arterial disease ? With history of right CEA 15. Essential hypertension ? Patient is on lisinopril held on admission given hypotension as well as worsening kidney function 16. Degenerative joint disease ? CT demonstrated Moderate to severe thoracolumbar spondylosis with mild lumbar scoliosis with mild dextroconvex scoliosis 17. Physical deconditioning ? Requested for PT OT eval and social media campaign manager to assist with discharge planning 18. Tobacco dependence ? Counseled on cessation, offered nicotine patch for tobacco cravings 19. DVT prophylaxis Bilateral SCDs Time spent in the patient's overall evaluation,decision-making process, review of diagnostic data, adjustment of management, discussion with other providers, nursing nursing and ancillary staff involved in patient's care documentation, 40 Minutes Charges/Coding Visit Charges Inpatient E&M: 65485 Subs Hosp L2 11/22/24 1038 <Electronically signed by Romeo Mina MD> Cosigner Signature (if applicable): CC: ~ Signed [facility] Work Phone: Progress note Author Alejandro Pool [facility] Note Date/Time November 22, 2024 1 2:50pm [facility] Medical Records Department [address] [place], [place] [address] [address] Progress Note - Surgery 11/22/24 1248 MR#: [id number] Acct: [id number] Name: DAVID ALDRICH Rep #:[id number] : 1960 64 From: Alejandro Pool MD PCP: Lulu Swanson, PROCESS OPERATOR-C Status:ADM I N Location: [place] [address] Subjective Subjective Feeling better. Some right chest wall discomfort, no worse over weekend. Objective Data Objective Data A&O x 3, NAD RRR Resp non labored right chest hematoma with no skin compromise Vital Signs: Vital Signs Temp Pulse Resp BP Pulse Ox O2 Del Method O2 Flow Rate 98.1 F 101 H 18 143/78 H 94 Nasal Cannula 2 11/22/24 09:06 11/22/24 09:06 11/22/24 09:06 11/22/24 09:06 11/22/24 09:12 11/22/24 09:12 11/22/24 12:16 FiO2 28 11/18/24 21:15 Oxygen Flow Rate (L/min) 2 Oxygen Delivery Method Nasal Cannula Weight: 165 lb 9.074 oz Body Mass Index (BMI) 31.2 Intake & Output: Intake and Output for Last 24 Hours 11/20/24 11/21/24 11/22/24 23:59 23:59 23:59 Intake Total 537.40 / 537.40 526.75 / 586.75 160 / 160 Output Total 1700 / 2200 1100 / 1100 0 / 0 Balance -1162.60 / -1662.60 -573.25 / -513.25 160 / 160 Lab / Micro Data 11/22/24 04:50 11/22/24 04:50 Labs: Laboratory Results - last 24 hr 11/21/24 17:18: POC Glucose 133 H 11/21/24 21:12: POC Glucose 114 H 11/22/24 04:50: WBC 12.7 H, RBC 3.03 L, Hgb 9.6 L, Hct 26.8 L, MCV 88.4, MCH 31.7, MCHC 35.8, RDW Std Deviation 43.9, RDW Coeff of Panchito 13.5, Plt Count 191, MPV 10.2, Immature Gran % (Auto) 0.900, Neut % (Auto) 83.0 H, Lymph % (Auto) 7.9L, Sebastian % (Auto) 7.4, Eos % (Auto) 0.5, Baso % (Auto) 0.3, Absolute Neuts (auto)10.5 H, Absolute Lymphs (auto) 1.00, Nucleated RBC % 0, Differential Comment SCANNED, Sodium 134, Potassium 3.5, Chloride 104, Carbon Dioxide 20.0 L, Anion Gap 10, BUN 17, Creatinine 0.73, Estim Creat Clear Calc 73.12, Est GFR (MDRD) Non-Af 92, BUN/Creatinine Ratio 23.2 H, Glucose 125 H, Calcium 8.4 11/22/24 11:26: POC Glucose 169 H Micro: Microbiology 11/18/24 21:40 Blood Culture (Wb) - Anticubital Right Blood Culture - Preliminary No growth in 48 hours. 11/18/24 21:10 Blood Culture (Wb) - Anticubital Left Blood Culture - Preliminary No growth in 48 hours. 11/19/24 08:25 Nasal Secretion MRSA (PCR) - Final 11/19/24 04:03 Mucosa - Nasopharyngeal Respiratory Panel (PCR) - Final 11/18/24 21:04 Mucosa - Nose SARS-CoV-2, Influenza & RSV (PCR) - Final Assessment & Plan Assessment/Plan (1) Hematoma of right chest wall: QUALIFIERS: Encounter type: subsequent encounter Qualified Code(s): S20.211D - Contusion of right front wall of thorax, subsequent encounter PLAN: -hematoma stable over 2 CT scans -CTA revealed source as language and literature division chair vessel with/under pec major -clinically stable -no surgical plans 11/22/24 1250 <Electronically signed by Alejandro Pool MD> Cosigner Signature (if applicable): CC: ~ Signed [facility] Work Phone: Progress note Author Romeo Mina [facility] Note Date/Time November 23, 2024 9 :48am [facility] Medical Records Department [address] [place] [address] Progress Note - Hospitalist 11/23/24 08 MR#: [id number] Acct: [id number] Name: DAVID ALDRICH Rep #:[id number] : 1960 64 From: Romeo Mina MD PCP: Lulu Haagen, PROCESS OPERATOR-C Status:ADM I N Location: [place] [address] Reason for Visit Chief Complaint: SOB, Wheezing and Diaphoresis. Subjective Subjective Patient seen breathing improved. Plan is for patient to be assessed for home oxygen prior to discharge Objective Data Objective Data Vital Signs: Vital Signs Temp Pulse Resp BP Pulse Ox O2 Del Method O2 Flow Rate 98.3 F 101 H 18 132/65 H 92 Room Air 2 11/23/24 03:06 11/23/24 03:06 11/23/24 03:06 11/23/24 03:06 11/23/24 03:06 11/23/24 03:06 11/22/24 12:16 FiO2 28 11/18/24 21:15 Oxygen Flow Rate (L/min) 2 Oxygen Delivery Method Room Air Weight: 75.7 kg Body Mass Index (BMI) 31.5 Intake & Output: Intake and Output for Last 24 Hours 11/21/24 11/22/24 11/23/24 23:59 23:59 23:59 Intake Total 526.75 / 586.75 690 / 690 50 / 50 Output Total 1100 / 1100 0 / 0 Balance -573.25 / -513.25 690 / 690 50 / 50 Lab / Micro Data 11/23/24 04:42 11/23/24 04:42 Labs: Laboratory Results - last 24 hr 11/19/24 23:33: POC Glucose 160 H 11/22/24 11:26: POC Glucose 169 H 11/22/24 16:34: POC Glucose 120 H 11/22/24 23:55: POC Glucose 151 H 11/23/24 04:42: WBC 12.4 H, RBC 3.33 L, Hgb 10.3 L, Hct 29.7 L, MCV 89.2, MCH 30.9, MCHC 34.7, RDW Std Deviation 44.1 H, RDW Coeff of Panchito 13.5, Plt Count 240,MPV 9.7, Immature Gran % (Auto) 3.500 H, Neut % (Auto) 79.0 H, Lymph % (Auto) 7.8 L, Sebastian % (Auto) 9.0, Eos % (Auto) 0.1, Baso % (Auto) 0.6, Absolute Neuts (auto) 9.8 H, Absolute Lymphs (auto) 0.97, Nucleated RBC % 0.2, Sodium 134, Potassium 3.5, Chloride 102, Carbon Dioxide 20.0 L, Anion Gap 11, BUN 18, Creatinine 0.60 L, Estim Creat Clear Calc 89.33, Est GFR (MDRD) Non-Af 101, BUN/Creatinine Ratio 29.6 H, Glucose 175 H, Calcium 8.2, Phosphorus 2.4 L, Magnesium 1.9 11/23/24 06:33: POC Glucose 159 H Micro: Microbiology 11/18/24 21:40 Blood Culture (Wb) - Anticubital Right Blood Culture - Preliminary No growth in 48 hours. 11/18/24 21:10 Blood Culture (Wb) - Anticubital Left Blood Culture - Preliminary No growth in 48 hours. 11/19/24 08:25 Nasal Secretion MRSA (PCR) - Final 11/19/24 04:03 Mucosa - Nasopharyngeal Respiratory Panel (PCR) - Final 11/18/24 21:04 Mucosa - Nose SARS-CoV-2, Influenza & RSV (PCR) - Final Physical Exam Narrative GENERAL: cooperative HEENT: Atraumatic; normocephalic EYES; Anicteric, Normal Conjunctiva NECK; supple, normal thyroid, RESPIRATORY: Diminished to auscultation CARDIOVASCULAR: Regular S1 S2, GI: soft, normoactive bowel sounds, : No Renal angle tenderness; EXTREMITIES: No edema, no clubbing, MUSCULOSKELETAL: no muscle wasting NEURO: Awake; no lateralizing signs. SKIN: Extensive bruising left upper chest PSYCH; Flat affect Assessment & Plan Assessment/Plan (1) Hematoma of right chest wall: QUALIFIERS: Encounter type: subsequent encounter Qualified Code(s): S20.211D - Contusion of right front wall of thorax, subsequent encounter (2) Duodenitis: (3) Acute respiratory failure: QUALIFIERS: Respiratory failure complication: unspecified whether with hypoxia or hypercapnia Qualified Code(s): J96.00 - Acute respiratory failure, unspecified whether with hypoxia or hypercapnia (4) Bronchitis: (5) Hypothyroidism: QUALIFIERS: Hypothyroidism type: unspecified Qualified Code(s): E03.9 - Hypothyroidism, unspecified PLAN: Plan Patient is a 63-year-old lady who presented with shortness of breath and assessment of acute hypoxic respiratory failure secondary to COPD with acute exacerbation made started on noninvasive ventilation admitted to the intensive care unit stabilized and later transferred to PCU 1. Acute hypoxic respiratory failure ? Secondary to COPD with acute exacerbation. 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 Patient managed with broad-spectrum antibiotic therapy with Zosyn as well as Solu-Medrol. Patient was managed on noninvasive ventilation BiPAP which has since been weaned off ? 11/23/2024;Patient seen breathing improved. Plan is for patient to be assessed for home oxygen prior to discharge 2. Hemorrhagic shock ? Patient did develop huge hematoma in the pectoralis muscle following insertionof subclavian CVC. Patient was managed in the ICU with IV fluid as well as Levophed which has since been weaned off 3. Left upper chest hematoma ? Appears stable 4. Anemia ? Secondary to acute blood loss monitoring H&H and transfuse if patient becomes symptomatic or hemoglobin falls below 7 5.Polycythemia ? Which was present on admission with hemoglobin of 18.9 this was thought to be secondary to chronic hypoxia from COPD 6. Acute kidney injury ? Patient creatinine on admission was 1.36. At 1.57 down to 0.73 as of today 7. Acute colitis ? CT demonstrated abrupt narrowing of the proximal sigmoid colon with a short segment of wall thickening. This could represent focal colitis or a mucosal mass lesion. Plans for patient to follow-up with primary care physician to be referred for outpatient colonoscopy 8. Duodenitis ? On PPI 9. Hiatal hernia with GERD symptoms ? Patient is on PPI 10. Subclinical hypothyroidism ? Patient started on levothyroxine 11. Diabetes mellitus type 2 ? Patient is on metformin held on admission placed on Accu-Cheks ACHS with sliding scale coverage 12. Schizoaffective disorder -On thiothixene twice daily, buspirone 3 times daily, bupropion twice daily plusimipramine nightly. Held on admission and resumed 13. Dyslipidemia ?Patient is on statin therapy, continued at home dose 14. Peripheral arterial disease ? With history of right CEA 15. Essential hypertension ? Patient is on lisinopril held on admission given hypotension as well as worsening kidney function 16. Degenerative joint disease ? CT demonstrated Moderate to severe thoracolumbar spondylosis with mild lumbar scoliosis with mild dextroconvex scoliosis 17. Physical deconditioning ? Requested for PT OT eval and social media campaign manager to assist with discharge planning 18. Tobacco dependence ? Counseled on cessation, offered nicotine patch for tobacco cravings 19. DVT prophylaxis Bilateral SCDs Time spent in the patient's overall evaluation,decision-making process, review of diagnostic data, adjustment of management, discussion with other providers, nursing nursing and ancillary staff involved in patient's care documentation, 35 Minutes Charges/Coding Visit Charges Inpatient E&M: 06327 Subs Hosp L2 11/23/24 0948 <Electronically signed by Romeo Mina MD> Cosigner Signature (if applicable): CC: ~ Signed [facility] Work Phone: Reason for referral (narrative)* Diagnostic Procedure Only (Routine) - Pending Review Specialty Diagnoses / Procedures Referred By Contac t Referred To Contact BR IMAGING Diagnoses Encounter for screening mammogram for breast cancer Procedures MIR SCREENING SCREENING MAMMOGRAPHY BI 2-VIEW BREAST INC Lulu Johnson APRN.CNP [address] [place] [address] Br Imaging [address] [place] [address] Referral ID Status Reason Start Date Expiration Date Visits Requested Visits Authorized [id number] Pending Review Auto-Generat ed Referral 05/22/2022 06/21/[address] [facility] for referral (narrative)* Diagnostic Procedure Only (Routine) - Pending Review Specialty Diagnoses / Procedures Referred By Contac t Referred To Contact XR IMAGING Diagnoses Right knee pain, unspecified chronicity Procedures XR KNEE GENERAL 4V AP BOTH/PA BOTH/LAT/MERC RIGHT RADIOLOGIC EXAM KNEE COMPLETE 4/MORE VIEWS Gabe Hall V, DO [address] [place] [address] [place] [id number] Referral ID Status Reason Start Date Expiration Date Visits Requested Visits Authorized [id number] Pending Review Auto-Generat ed Referral 10/15/2022 11/14/2023 [facility] Diagnostic Procedure Only (Routine) - Closed Specialty Diagnoses / Procedures Referred By Contac t Referred To Contact XR IMAGING Diagnoses Right knee pain, unspecified chronicity Procedures XR KNEE GENERAL 4V AP BOTH/PA BOTH/LAT/MERC RIGHT RADIOLOGIC EXAM KNEE COMPLETE 4/MORE VIEWS Gabe Hall V, DO [address] [place] [address] [place] [id number] Referral ID Status Reason Start Date Expiration Date V isits Requested Visits Authorized [id number] Closed Auto-Generate d Referral 10/15/2022 11/14/[address] [facility] for referral (narrative)* Diagnostic Procedure Only (Routine) - Pending Review Specialty Diagnoses / Procedures Referred By Contac t Referred To Contact MOLECULAR & FUNCTIONAL IMAGING Diagnoses Chest pain, unspecified type Procedures NM CARDIAC PERF STRESS/PHARM MYOCARDIAL SPECT MULTIPLE STUDIES Lulu Swanson APRN.[employer] [address] [place] [address] Molecular & Functional Imaging [address] [place], [place] [id number] Referral ID Status Reason Start Date Expiration Date Visits Requested Visits Authorized [id number] Pending Review Auto-Generat ed Referral 04/29/2023 05/28/2024 1 1 * Outpatient Procedure (Routine) - Pending Review Specialty Diagnoses / Procedures Referred By Contac t Referred To Contact [facility] Diagnoses Chest pain, unspecified type Procedures ECG COMPLETE ECG ROUTINE ECG W/LEAST 12 LDS W/I&R Lulu Swanson APRN.[employer] [address] [place] [address] [facility] [place] [address] [place] [address] Referral ID Status Reason Start Date Expiration Date Visits Requested Visits Authorized [id number] Pending Review Auto-Generat ed Referral 04/29/2023 04/28/2024 1 1 * Consult, Test, Treat (Routine) - Authorized Specialty Diagnoses / Procedures Referred By Contac t Referred To Contact General Surgery Diagnoses Screening for colon cancer Procedures CONSULT TO GENERAL SURGERY OFFICE/OUTPATIENT [facility] 60 MINUTES Lulu Swanson APRN.[employer] [address] [place] [address] Referral ID Status Reason Start Date Expiration Date Visits Requested Visits Authorized [id number] Authorized PCP Requested Referral 04/29/2023 04/28/[address] [facility] for referral (narrative)* Diagnostic Procedure Only (Routine) - Pending Review Specialty Diagnoses / Procedures Referred By Contac t Referred To Contact BR IMAGING Diagnoses Encounter for screening mammogram for breast cancer Procedures MIR SCREENING SCREENING MAMMOGRAPHY BI 2-VIEW BREAST INC CAD Lulu Swanson APRN.[employer] [address] [place] [address] Br Imaging [address] [place] [address] Referral ID Status Reason Start Date Expiration Date Visits Requested Visits Authorized [id number] Pending Review Auto-Generat ed Referral 04/30/2023 05/29/[address] [facility] for referral (narrative)* Diagnostic Procedure Only (Urgent) - Pending Review Specialty Diagnoses / Procedures Referred By Contac t Referred To Contact XR IMAGING Diagnoses Pain Procedures XR HAND GENERAL 3V PA/LAT/OBL LEFT RADEX HAND MINIMUM 3 VIEWS Anju Garcia APRN.[employer] [address] [place] [address] [place] [id number] Referral ID Status Reason Start Date Expiration Date Visits Requested Visits Authorized [id number] Pending Review Auto-Generat ed Referral 10/10/2023 11/08/[address] [facility] for referral (narrative)* Diagnostic Procedure Only (Routine) - Closed Specialty Diagnoses / Procedures Referred By Contac t Referred To Contact XR IMAGING Diagnoses Nontraumatic complete tear of right rotator cuff Procedures XR SHOULDER [id number] AP/TRUE AP RIGHT RADEX SHOULDER COMPLETE MINIMUM 2 VIEWS Stephanie Kapadia APRN.CNP, DYAN [address] [place] [address] [place] [address] Referral ID Status Reason Start Date Expiration Date V isits Requested Visits Authorized [id number] Closed Auto-Generate d Referral 06/18/2021 07/18/[address] [facility] for referral (narrative)* Outpatient Procedure (Routine) - Pending Review Specialty Diagnoses / Procedures Referred By Contac t Referred To Contact [facility] [place] Diagnoses Hyperlipidemia with target LDL less than 100 Procedures ECG COMPLETE ECG ROUTINE ECG W/LEAST 12 LDS W/I&R Denis [facility] [address] [facility] [address] [place] [address] [facility] [place] [address] [place] [address] Referral ID Status Reason Start Date Expiration Date Visits Requested Visits Authorized [id number] Pending Review Auto-Generat ed Referral 12/08/[address] [facility] for referral (narrative)* Diagnostic Procedure Only (Routine) - New Request Specialty Diagnoses / Procedures Referred By Contac t Referred To Contact XR IMAGING Diagnoses Finger infection Procedures XR DIGIT GENERAL 3V FRONTAL/LAT/OBL RIGHT RADEX FINGR MINIMUM 2 VIEWS Lulu Swanson APRN.CNP [address] [place] [address] [place] [address] Referral ID Status Reason Start Date Expiration Date Visits Requested Visits Authorized [id number] New Request Auto-Generat ed Referral 01/14/2024 02/12/2025 1 1 * Diagnostic Procedure Only (Routine) - Authorized Specialty Diagnoses / Procedures Referred By Contac t Referred To Contact XR IMAGING Diagnoses Finger infection Procedures XR DIGIT GENERAL 3V FRONTAL/LAT/OBL RIGHT RADEX FINGR MINIMUM 2 VIEWS Lulu Swanson APRN.CNP [address] [place] [address] Xr Imaging [facility] Referral ID Status Reason Start Date Expiration Date Visits Requested Visits Authorized [id number] Authorized Auto-Generat ed Referral 01/13/2024 02/11/[address] [facility] for referral (narrative)* Outpatient Procedure (Routine) - Authorized Specialty Diagnoses / Procedures Referred By Contac t Referred To Contact [facility] Diagnoses COPD, mild (HCC) Procedures OXIMETRY WITH AMBULATION NONINVASIVE EAR/PULSE OXIMETRY MULTIPLE DETER Dipesh Leong MD [address] [facility] [address] [facility] [place] [address] [place] [id number] Referral ID Status Reason Start Date Expiration Date Visits Requested Visits Authorized [id number] Authorized Auto-Generat ed Referral 03/10/2025 1 1 * Medication Prior Authorization - Closed Specialty Diagnoses / Procedures Referred By Contac t Referred To Contact Diagnoses Chronic obstructive pulmonary disease, unspecified COPD type (HCC) Dipesh Leong MD [address] [place] [address] Referral ID Status Reason Start Date Expiration Date Visits Re quested Visits Authorized [id number] Closed 1 1 [facility] for visit Narrative* Diagnostic Procedure Only (Routine) - Closed Specialty Diagnoses / Procedures Referred By Contac t Referred To Contact US IMAGING Diagnoses Chronic right shoulder pain Procedures US ABD RT UPPER QUADRANT ULTRASOUND-ABDOMINAL PC Stephanie Kapadia APRN.CNP, DYAN [address] [place] [address] Us Imaging Referral ID Status Reason Start Date Expiration Date V isits Requested Visits Authorized [id number] Closed Auto-Generate d Referral 02/01/2021 02/24/[address] [facility] for visit Narrative* Diagnostic Procedure Only (Routine) - Closed Specialty Diagnoses / Procedures Referred By Contac t Referred To Contact XR IMAGING Diagnoses Right knee pain, unspecified chronicity Procedures XR KNEE GENERAL 4V AP BOTH/PA BOTH/LAT/MERC RIGHT RADIOLOGIC EXAM KNEE COMPLETE 4/MORE VIEWS Gabe Hall, V, DO [address] [place] [address] [place] [address] Referral ID Status Reason Start Date Expiration Date V isits Requested Visits Authorized [id number] Closed Auto-Generate d Referral 10/15/2022 11/14/[address] [facility] for visit Narrative* Diagnostic Procedure Only (Urgent) - Pending Review Specialty Diagnoses / Procedures Referred By Contac t Referred To Contact XR IMAGING Diagnoses Pain Procedures XR HAND GENERAL 3V PA/LAT/OBL LEFT RADEX HAND MINIMUM 3 VIEWS Anju Garcia, ASSOCIATE PROFESSOR OF AUTOMATION.[employer] [address] [place] [address] [place] [address] Referral ID Status Reason Start Date Expiration Date Visits Requested Visits Authorized [id number] Pending Review Auto-Generat ed Referral 10/10/2023 11/08/[address] [facility] for visit Narrative* Diagnostic Procedure Only (Routine) - Closed Specialty Diagnoses / Procedures Referred By Contac t Referred To Contact XR IMAGING Diagnoses Nontraumatic complete tear of right rotator cuff Procedures XR SHOULDER [id number] AP/TRUE AP RIGHT RADEX SHOULDER COMPLETE MINIMUM 2 VIEWS Stephanie Kapadia, ASSOCIATE PROFESSOR OF AUTOMATION.[employer], DNP [address] [place] [address] [place] [address] Referral ID Status Reason Start Date Expiration Date V isits Requested Visits Authorized [id number] Closed Auto-Generate d Referral 06/18/2021 07/18/[address] [facility] for visit Narrative* Diagnostic Procedure Only (Routine) - Closed Specialty Diagnoses / Procedures Referred By Contac t Referred To Contact XR IMAGING Diagnoses Finger infection Procedures XR DIGIT GENERAL 3V FRONTAL/LAT/OBL RIGHT RADEX FINGR MINIMUM 2 VIEWS Lulu Swanson, ASSOCIATE PROFESSOR OF AUTOMATION.[employer] [address] [place] [address] [place] [address] Referral ID Status Reason Start Date Expiration Date V isits Requested Visits Authorized [id number] Closed Auto-Generate d Referral 01/14/2024 02/12/[address] [facility] for visit Narrative* Diagnostic Procedure Only (Routine) - Closed Specialty Diagnoses / Procedures Referred By Contac t Referred To Contact XR IMAGING Diagnoses Right knee pain, unspecified chronicity Procedures XR KNEE GENERAL 4V AP BOTH/PA BOTH/LAT/MERC RIGHT RADIOLOGIC EXAM KNEE COMPLETE 4/MORE VIEWS Gabe Hall V, DO [address] [place] [address] Phone: tel: fax: [place] [id number] Referral ID Status Reason Start Date Expiration Date V isits Requested Visits Authorized [id number] Closed Auto-Generate d Referral 08/04/2024 09/03/2025 1 1 [facility] Summary Purpose Family History No Family History Records Found Relationship Condition Age at Onset Recorded Date/T connor mother Cardiac disease Unknown father Diabetes mellitus Unknown brother Parkinson's disease Unknown Advance Directives No Advanced Directives Records Found Advance Directive Response Recorded Date/ Time Living Will No October 09 5:09pm Power of Marine Cargo Surveyor No October 09 023 5:09pm Advance Directive Response Recorded Date/ Time Do you have a Healthcare Power of Marine Cargo Surveyor? No November 19, 2024 2:04am Reason for Referral Specialty Diagnoses / Procedures Referred By Contac t Referred To Contact [facility] Diagnoses Nontraumatic complete tear of right rotator cuff Procedures CONSULT TO PHYSICAL THERAPY PHYSICAL THERAPY EVALUATION HIGH COMPLEX 45 MINS Stephanie Kapadia, ASSOCIATE PROFESSOR OF AUTOMATION.[employer], DNP [address] [place] [address] [facility] [place] [address] [place] [address] Referral ID Status Reason Start Date Expiration Date Visits Requested Visits Authorized [id number] Pending Review Auto-Generat ed Referral 06/21/2021 06/18/2022 1 1 Specialty Diagnoses / Procedures Referred By Contac t Referred To Contact XR IMAGING Diagnoses Nontraumatic complete tear of right rotator cuff Procedures XR SHOULDER [id number] AP/TRUE AP RIGHT RADEX SHOULDER COMPLETE MINIMUM 2 VIEWS Stephanie Kapadia, ASSOCIATE PROFESSOR OF AUTOMATION.CANDACE, DNP [address] [place] [address] Xr Imaging Referral ID Status Reason Start Date Expiration Date V isits Requested Visits Authorized [id number] Closed Auto-Generate d Referral 06/18/2021 07/18/2022 1 1 Specialty Diagnoses / Procedures Referred By Contac t Referred To Contact Gastroenterology Diagnoses RUQ pain Diarrhea, unspecified type Procedures CONSULT TO GASTROENTEROLOGY OFFICE/OUTPATIENT [facility] 60-74 MINUTES Stephanie Kapadia, ASSOCIATE PROFESSOR OF AUTOMATION.CANDACE, DNP [address] [place] [address] Referral ID Status Reason Start Date Expiration Date Visits Requested Visits Authorized [id number] Authorized PCP Requested Referral 05/18/2021 05/18/2022 1 1 Specialty Diagnoses / Procedures Referred By Contac t Referred To Contact Podiatry Diagnoses Toe pain, right Procedures CONSULT TO PODIATRY OFFICE/OUTPATIENT [facility] 60-74 MINUTES Lulu Swanson, ASSOCIATE PROFESSOR OF AUTOMATION.[employer] [address] [place] [address] Referral ID Status Reason Start Date Expiration Date Visits Requested Visits Authorized [id number] Authorized PCP Requested Referral 05/22/2022 05/22/2023 1 1 Specialty Diagnoses / Procedures Referred By Contac t Referred To Contact Orthopedics Diagnoses Knee swelling Procedures CONSULT TO ORTHOPAEDICS OFFICE/OUTPATIENT [facility] 60-74 MINUTES Helga Lucas, ASSOCIATE PROFESSOR OF AUTOMATION.[employer] [address] [place] [address] Referral ID Status Reason Start Date Expiration Date Visits Requested Visits Authorized [id number] Authorized PCP Requested Referral 10/11/2022 10/11/2023 1 1 Specialty Diagnoses / Procedures Referred By Contac t Referred To Contact [facility] Diagnoses Screening for colon cancer Procedures COLONOSCOPY SCREENING COLONOSCOPY FLX DX W/COLLJ SPEC WHEN Stephanie Holguin MD [address] [facility] [address] [facility] [place] [address] [place] [address] Referral ID Status Reason Start Date Expiration Date Visits Requested Visits Authorized [id number] Pending Review Auto-Generate d Referral Patient Cleared - Qualified 100% FAS 06/06/2023 06/05/2024 99 99 Specialty Diagnoses / Procedures Referred By Contac t Referred To Contact Cardiology Diagnoses History of chest pain Procedures CONSULT TO CARDIOLOGY OFFICE/OUTPATIENT [facility] 60 MINUTES Ana Paula Pace PA-C [address] [place] [address] Referral ID Status Reason Start Date Expiration Date Visits Requested Visits Authorized [id number] Authorized PCP Requested Referral 09/09/2023 09/08/2024 1 1 Specialty Diagnoses / Procedures Referred By Contac t Referred To Contact [facility] Diagnoses Sciatica, right side Procedures CONSULT TO PHYSICAL THERAPY PHYSICAL THERAPY EVALUATION HIGH COMPLEX 45 MINS Ana Paula Pace PA-C [address] [place] [address] [facility] [place] [address] [place] [address] Referral ID Status Reason Start Date Expiration Date Visits Requested Visits Authorized [id number] Pending Review Auto-Generat ed Referral 09/09/2023 09/08/2024 1 1 Specialty Diagnoses / Procedures Referred By Contac t Referred To Contact Orthopedics Diagnoses Pain Procedures CONSULT PANEL TO ORTHOPAEDICS OFFICE/OUTPATIENT [facility] 60 MINUTES Anju Garcia APRN.[employer] [address] [place] [address] Referral ID Status Reason Start Date Expiration Date Visits Requested Visits Authorized [id number] Authorized PCP Requested Referral 10/10/2023 10/09/2024 1 1 Specialty Diagnoses / Procedures Referred By Contac t Referred To Contact XR IMAGING Diagnoses Pain Procedures XR HAND GENERAL 3V PA/LAT/OBL LEFT RADEX HAND MINIMUM 3 VIEWS Anju Garcia APRN.[employer] [address] [place] [address] [place] [address] Referral ID Status Reason Start Date Expiration Date Visits Requested Visits Authorized [id number] Pending Review Auto-Generat ed Referral 10/10/2023 11/08/2024 1 1 Specialty Diagnoses / Procedures Referred By Contac t Referred To Contact Cardiology Diagnoses Hyperlipidemia, unspecified hyperlipidemia type History of chest pain Procedures CONSULT TO CARDIOLOGY OFFICE/OUTPATIENT [facility] 60 MINUTES Lulu Swanson, ASSOCIATE PROFESSOR OF AUTOMATION.[employer] [address] [place] [address] Referral ID Status Reason Start Date Expiration Date Visits Requested Visits Authorized [id number] Authorized PCP Requested Referral 11/05/2023 11/04/2024 1 1 Specialty Diagnoses / Procedures Referred By Contac t Referred To Contact CT IMAGING Diagnoses Encounter for screening for lung cancer Tobacco use current Procedures CT LUNG SCREEN WO IVCON COMPUTED TOMOGRAPHY THORAX LW DOSE LNG CA SCR C- Adwoa De Leon APRN.[employer] [address] [place] [id number] Imaging [facility] Referral ID Status Reason Start Date Expiration Date Visits Requested Visits Authorized [id number] Pending Review Auto-Generat ed Referral 2023 12/16/2024 1 1 Specialty Diagnoses / Procedures Referred By Contac t Referred To Contact [facility] Diagnoses Wheezing Procedures NITRIC OXIDE, EXHALED NITRIC OXIDE GAS DETERMINATION Adwoa De Leon APRN.[employer] [address] [place] [address] [facility] [place] [address] [place] [address] Referral ID Status Reason Start Date Expiration Date Visits Requested Visits Authorized [id number] Pending Review Auto-Generat ed Referral 2023 12/16/2024 1 1 Specialty Diagnoses / Procedures Referred By Contac t Referred To Contact [facility] Diagnoses Wheezing Procedures LUNG DIFFUSION CAPACITY (DLCO) DIFFUSING CAPACITY Adwoa De Leon APRN.[employer] [address] [place] [address] [facility] [place] [address] [place] [address] Referral ID Status Reason Start Date Expiration Date Visits Requested Visits Authorized [id number] Pending Review Auto-Generat ed Referral 2023 12/16/2024 1 1 Specialty Diagnoses / Procedures Referred By Contac t Referred To Contact [facility] [place] Diagnoses Wheezing Procedures LUNG VOLUMES Adwoa De Leon, ASSOCIATE PROFESSOR OF AUTOMATION.[employer] [address] [place] [address] [address] Referral ID Status Reason Start Date Expiration Date Visits Requested Visits Authorized [id number] Pending Review Auto-Generat ed Referral 2023 12/16/2024 1 1 Specialty Diagnoses / Procedures Referred By Contac t Referred To Contact [facility] [place] Diagnoses Wheezing Procedures SPIROMETRY WITH DILATOR IF OBSTRUCTED BRNCDILAT RSPSE SPMTRY PRE&POST-BRNCDILAT ADMN Adwoa De Leon, ASSOCIATE PROFESSOR OF AUTOMATION.[employer] [address] [place] [address] [address] Referral ID Status Reason Start Date Expiration Date Visits Requested Visits Authorized [id number] Pending Review Auto-Generat ed Referral 2023 12/16/2024 1 1 Referral ID Status Reason Start Date Expiration Date V isits Requested Visits Authorized [id number] Closed Auto-Generated Referral Patient Cleared - Qualified 100% FAS 2023 12/16/2024 1 1 Referral ID Status Reason Start Date Expiration Date Visits Requested Visits Authorized [id number] New Request Auto-Generat ed Referral 10/11/2024 01/06/2025 1 1 Specialty Diagnoses / Procedures Referred By Contac t Referred To Contact Cardiology Diagnoses Elevated coronary artery calcium score Procedures CONSULT TO CARDIOLOGY OFFICE/OUTPATIENT NEW HIGH MDM 60 MINUTES Lulu Swanson, ASSOCIATE PROFESSOR OF AUTOMATION.[employer] [address] [place] [address] Referral ID Status Reason Start Date Expiration Date Visits Requested Visits Authorized [id number] Authorized PCP Requested Referral 12/29/2024 1 1 Specialty Diagnoses / Procedures Referred By Mahsa boyd Referred [facility] Diagnoses Bilateral carotid artery stenosis Procedures US CAROTID ARTERIES WE[facility] LAB DUPLEX SCAN EXTRACRANIAL ART COMPL BI STUDY Lulu Swanson APRN.[employer] [address] [place] [address] [facility] [place] [address] [place] [address] Referral ID Status Reason Start Date Expiration Date Visits Requested Visits Authorized [id number] Authorized Auto-Generat ed Referral 12/29/2024 1 1 Health Concerns Infection Onset Date Last Indicated Resolved Time COVID-19 Rule-Out 08/29/2021 08/29/2021 Infection Onset Date Last Indicated Resolved Time COVID-19 Confirmed 08/29/2021 08/29/2021 Infection Onset Date Last Indicated Resolved Time COVID-19 Rule-Out 11/28/2021 11/28/2021 Infection Onset Date Last Indicated Resolved Time COVID-19 Rule-Out 11/28/2021 11/28/2021 11/29/2021 2:12 AM EDT Infection Onset Date Last Indicated Resolved Time COVID-19 Rule-Out 02/20/2022 02/20/2022 Infection Onset Date Last Indicated Resolved Time COVID-19 Rule-Out 02/20/2022 02/20/2022 02/21/2022 12:16 AM EST Infection Onset Date Last Indicated Resolved Time COVID-19 Rule-Out 08/29/2021 08/29/2021 08/29/2021 9:09 PM EDT COVID-19 Confirmed 08/29/2021 08/29/2021 8:53 PM EDT COVID-19 Rule-Out 11/28/2021 11/28/2021 11/29/2021 2:12 AM EDT COVID-19 Rule-Out 02/20/2022 02/20/2022 02/21/2022 12:16 AM EST Chief Complaint and Reason for Visit Chief Complaint lower extremity Chief Complaint Admit Date AE COPD, BRONCHITIS, RESP FAILURE & UNDI FFERENTIAT November 19, 2024 12:48am AE COPD, BRONCHITIS, RESP FAILURE & UNDI FFERENTIAT November 19, 2024 12:48pm AE COPD, BRONCHITIS, RESP FAILURE & UNDI FFERENTIAT November 19, 2024 5:04pm AE COPD, BRONCHITIS, RESP FAILURE & UNDI FFERENTIAT November 20, 2024 8:23am AE COPD, BRONCHITIS, RESP FAILURE & UNDI FFERENTIAT November 20, 2024 8:24am AE COPD, BRONCHITIS, RESP FAILURE & UNDI FFERENTIAT November 21, 2024 8:33am AE COPD, BRONCHITIS, RESP FAILURE & UNDI FFERENTIAT November 21, 2024 8:39am AE COPD, BRONCHITIS, RESP FAILURE & UNDI FFERENTIAT November 22, 2024 8:28am AE COPD, BRONCHITIS, RESP FAILURE & UNDI FFERENTIAT November 22, 2024 9:34am AE COPD, BRONCHITIS, RESP FAILURE & UNDI FFERENTIAT November 22, 2024 12:48pm AE COPD, BRONCHITIS, RESP FAILURE & UNDI FFERENTIAT November 23, 2024 8:02am Reason for Visit Admit Date Abnormal CT scan, colon November 19 12:48am Acidosis, lactic November 19, 2024 1 2:48am Acquired polycythemia vera November 19, 2024 12:48am Hypothermia November 19, 2024 1 2:48am Hypothyroidism November 19, 2024 1 2:48am NAFLD (nonalcoholic fatty liver disease) November 19, 2024 12:48am Obesity (BMI 30.0-34.9) November 19 12:48am Shock circulatory November 19, 2024 1 2:48am Acute respiratory failure November 19, 2024 12:48am Adrenal insufficiency November 19, 2024 12:48am Bronchitis November 19, 2024 1 2:48am COPD exacerbation November 19, 2024 1 2:48am Duodenitis November 19, 2024 1 2:48am Elevated d-dimer November 19, 2024 1 2:48am Focal active colitis November 19, 2024 12:48am Hematoma of right chest wall November 12:48am Severe hypotension November 19, 2024 1 2:48am Additional Source Comments INFORMATION SOURCE (unrecogn ized section and content) DATE CREATED AUTHOR 01/19/2018 Yobani Cerda [facility] DATE CREATED AUTHOR AUTHOR'S ORGANIZ ATMAGALI 11/24/2022 [facility] DATE CREATED AUTHOR AUTHOR'S ORGANIZ ATION 12/05/2024 [facility] DATE CREATED AUTHOR AUTHOR'S ORGANIZ ATION 12/24/2024 [facility] Source Comments (unrecognize d section and content) In the event this informatio n is protected by the Federal Confidentiality of Alcohol and Drug Abuse Patient Records regulations: The Federal rules restrict any use of the information to criminally investigate or prosecute any alcohol or drug abuse patient.[facility] the event this information is protected by the Federal Confidentiality of Alcohol and Drug Abuse Patient Records regulations: The Federal rules restrict any use of the information to criminally investigate or prosecute any alcohol or drug abuse patient.[facility] the event this information is protected by the Federal Confidentiality of Alcohol and Drug Abuse Patient Records regulations: The Federal rules restrict any use of the information to criminally investigate or prosecute any alcohol or drug abuse patient.[facility] the event this information is protected by the Federal Confidentiality of Alcohol and Drug Abuse Patient Records regulations: The Federal rules restrict any use of the information to criminally investigate or prosecute any alcohol or drug abuse patient.[facility] the event this information is protected by the Federal Confidentiality of Alcohol and Drug Abuse Patient Records regulations: The Federal rules restrict any use of the information to criminally investigate or prosecute any alcohol or drug abuse patient.[facility] the event this information is protected by the Federal Confidentiality of Alcohol and Drug Abuse Patient Records regulations: The Federal rules restrict any use of the information to criminally investigate or prosecute any alcohol or drug abuse patient.[facility] the event this information is protected by the Federal Confidentiality of Alcohol and Drug Abuse Patient Records regulations: The Federal rules restrict any use of the information to criminally investigate or prosecute any alcohol or drug abuse patient.[facility]In the event this information is protected by the Federal Confidentiality of Alcohol and Drug Abuse Patient Records regulations: The Federal rules restrict any use of the information to criminally investigate or prosecute any alcohol or drug abuse patient.[facility]In the event this information is protected by the Federal Confidentiality of Alcohol and Drug Abuse Patient Records regulations: The Federal rules restrict any use of the information to criminally investigate or prosecute any alcohol or drug abuse patient.[facility]In the event this information is protected by the Federal Confidentiality of Alcohol and Drug Abuse Patient Records regulations: The Federal rules restrict any use of the information to criminally investigate or prosecute any alcohol or drug abuse patient.[facility] HospitalIn the event this information is protected by the Federal Confidentiality of Alcohol and Drug Abuse Patient Records regulations: The Federal rules restrict any use of the information to criminally investigate or prosecute any alcohol or drug abuse patient.[facility] HospitalIn the event this information is protected by the Federal Confidentiality of Alcohol and Drug Abuse Patient Records regulations: The Federal rules restrict any use of the information to criminally investigate or prosecute any alcohol or drug abuse patient.[facility] HospitalIn the event this information is protected by the Federal Confidentiality of Alcohol and Drug Abuse Patient Records regulations: The Federal rules restrict any use of the information to criminally investigate or prosecute any alcohol or drug abuse patient.[facility] HospitalIn the event this information is protected by the Federal Confidentiality of Alcohol and Drug Abuse Patient Records regulations: The Federal rules restrict any use of the information to criminally investigate or prosecute any alcohol or drug abuse patient.[facility] HospitalIn the event this information is protected by the Federal Confidentiality of Alcohol and Drug Abuse Patient Records regulations: The Federal rules restrict any use of the information to criminally investigate or prosecute any alcohol or drug abuse patient.[facility] HospitalIn the event this information is protected by the Federal Confidentiality of Alcohol and Drug Abuse Patient Records regulations: The Federal rules restrict any use of the information to criminally investigate or prosecute any alcohol or drug abuse patient.[facility] HospitalIn the event this information is protected by the Federal Confidentiality of Alcohol and Drug Abuse Patient Records regulations: The Federal rules restrict any use of the information to criminally investigate or prosecute any alcohol or drug abuse patient.[facility] HospitalIn the event this information is protected by the Federal Confidentiality of Alcohol and Drug Abuse Patient Records regulations: The Federal rules restrict any use of the information to criminally investigate or prosecute any alcohol or drug abuse patient.[facility] HospitalIn the event this information is protected by the Federal Confidentiality of Alcohol and Drug Abuse Patient Records regulations: The Federal rules restrict any use of the information to criminally investigate or prosecute any alcohol or drug abuse patient.[facility] HospitalIn the event this information is protected by the Federal Confidentiality of Alcohol and Drug Abuse Patient Records regulations: The Federal rules restrict any use of the information to criminally investigate or prosecute any alcohol or drug abuse patient.[facility] HospitalIn the event this information is protected by the Federal Confidentiality of Alcohol and Drug Abuse Patient Records regulations: The Federal rules restrict any use of the information to criminally investigate or prosecute any alcohol or drug abuse patient.[facility] HospitalIn the event this information is protected by the Federal Confidentiality of Alcohol and Drug Abuse Patient Records regulations: The Federal rules restrict any use of the information to criminally investigate or prosecute any alcohol or drug abuse patient.[facility] HospitalIn the event this information is protected by the Federal Confidentiality of Alcohol and Drug Abuse Patient Records regulations: The Federal rules restrict any use of the information to criminally investigate or prosecute any alcohol or drug abuse patient.[facility] HospitalIn the event this information is protected by the Federal Confidentiality of Alcohol and Drug Abuse Patient Records regulations: The Federal rules restrict any use of the information to criminally investigate or prosecute any alcohol or drug abuse patient.[facility] HospitalIn the event this information is protected by the Federal Confidentiality of Alcohol and Drug Abuse Patient Records regulations: The Federal rules restrict any use of the information to criminally investigate or prosecute any alcohol or drug abuse patient.[facility] HospitalIn the event this information is protected by the Federal Confidentiality of Alcohol and Drug Abuse Patient Records regulations: The Federal rules restrict any use of the information to criminally investigate or prosecute any alcohol or drug abuse patient.[facility] HospitalIn the event this information is protected by the Federal Confidentiality of Alcohol and Drug Abuse Patient Records regulations: The Federal rules restrict any use of the information to criminally investigate or prosecute any alcohol or drug abuse patient.[facility] HospitalIn the event this information is protected by the Federal Confidentiality of Alcohol and Drug Abuse Patient Records regulations: The Federal rules restrict any use of the information to criminally investigate or prosecute any alcohol or drug abuse patient.[facility] HospitalIn the event this information is protected by the Federal Confidentiality of Alcohol and Drug Abuse Patient Records regulations: The Federal rules restrict any use of the information to criminally investigate or prosecute any alcohol or drug abuse patient.[facility] HospitalIn the event this information is protected by the Federal Confidentiality of Alcohol and Drug Abuse Patient Records regulations: The Federal rules restrict any use of the information to criminally investigate or prosecute any alcohol or drug abuse patient.[facility] HospitalIn the event this information is protected by the Federal Confidentiality of Alcohol and Drug Abuse Patient Records regulations: The Federal rules restrict any use of the information to criminally investigate or prosecute any alcohol or drug abuse patient.[facility] HospitalIn the event this information is protected by the Federal Confidentiality of Alcohol and Drug Abuse Patient Records regulations: The Federal rules restrict any use of the information to criminally investigate or prosecute any alcohol or drug abuse patient.[facility] HospitalIn the event this information is protected by the Federal Confidentiality of Alcohol and Drug Abuse Patient Records regulations: The Federal rules restrict any use of the information to criminally investigate or prosecute any alcohol or drug abuse patient.[facility] HospitalIn the event this information is protected by the Federal Confidentiality of Alcohol and Drug Abuse Patient Records regulations: The Federal rules restrict any use of the information to criminally investigate or prosecute any alcohol or drug abuse patient.[facility] HospitalIn the event this information is protected by the Federal Confidentiality of Alcohol and Drug Abuse Patient Records regulations: The Federal rules restrict any use of the information to criminally investigate or prosecute any alcohol or drug abuse patient.[facility] HospitalIn the event this information is protected by the Federal Confidentiality of Alcohol and Drug Abuse Patient Records regulations: The Federal rules restrict any use of the information to criminally investigate or prosecute any alcohol or drug abuse patient.[facility] HospitalIn the event this information is protected by the Federal Confidentiality of Alcohol and Drug Abuse Patient Records regulations: The Federal rules restrict any use of the information to criminally investigate or prosecute any alcohol or drug abuse patient.[facility] HospitalIn the event this information is protected by the Federal Confidentiality of Alcohol and Drug Abuse Patient Records regulations: The Federal rules restrict any use of the information to criminally investigate or prosecute any alcohol or drug abuse patient.[facility] HospitalIn the event this information is protected by the Federal Confidentiality of Alcohol and Drug Abuse Patient Records regulations: The Federal rules restrict any use of the information to criminally investigate or prosecute any alcohol or drug abuse patient.[facility] HospitalIn the event this information is protected by the Federal Confidentiality of Alcohol and Drug Abuse Patient Records regulations: The Federal rules restrict any use of the information to criminally investigate or prosecute any alcohol or drug abuse patient.[facility] HospitalIn the event this information is protected by the Federal Confidentiality of Alcohol and Drug Abuse Patient Records regulations: The Federal rules restrict any use of the information to criminally investigate or prosecute any alcohol or drug abuse patient.[facility] HospitalIn the event this information is protected by the Federal Confidentiality of Alcohol and Drug Abuse Patient Records regulations: The Federal rules restrict any use of the information to criminally investigate or prosecute any alcohol or drug abuse patient.[facility] HospitalIn the event this information is protected by the Federal Confidentiality of Alcohol and Drug Abuse Patient Records regulations: The Federal rules restrict any use of the information to criminally investigate or prosecute any alcohol or drug abuse patient.[facility] HospitalIn the event this information is protected by the Federal Confidentiality of Alcohol and Drug Abuse Patient Records regulations: The Federal rules restrict any use of the information to criminally investigate or prosecute any alcohol or drug abuse patient.[facility] HospitalIn the event this information is protected by the Federal Confidentiality of Alcohol and Drug Abuse Patient Records regulations: The Federal rules restrict any use of the information to criminally investigate or prosecute any alcohol or drug abuse patient.[facility] HospitalIn the event this information is protected by the Federal Confidentiality of Alcohol and Drug Abuse Patient Records regulations: The Federal rules restrict any use of the information to criminally investigate or prosecute any alcohol or drug abuse patient.[facility] HospitalIn the event this information is protected by the Federal Confidentiality of Alcohol and Drug Abuse Patient Records regulations: The Federal rules restrict any use of the information to criminally investigate or prosecute any alcohol or drug abuse patient.[facility] HospitalIn the event this information is protected by the Federal Confidentiality of Alcohol and Drug Abuse Patient Records regulations: The Federal rules restrict any use of the information to criminally investigate or prosecute any alcohol or drug abuse patient.[facility] HospitalIn the event this information is protected by the Federal Confidentiality of Alcohol and Drug Abuse Patient Records regulations: The Federal rules restrict any use of the information to criminally investigate or prosecute any alcohol or drug abuse patient.[facility] HospitalIn the event this information is protected by the Federal Confidentiality of Alcohol and Drug Abuse Patient Records regulations: The Federal rules restrict any use of the information to criminally investigate or prosecute any alcohol or drug abuse patient.[facility] HospitalIn the event this information is protected by the Federal Confidentiality of Alcohol and Drug Abuse Patient Records regulations: The Federal rules restrict any use of the information to criminally investigate or prosecute any alcohol or drug abuse patient.[facility] HospitalIn the event this information is protected by the Federal Confidentiality of Alcohol and Drug Abuse Patient Records regulations: The Federal rules restrict any use of the information to criminally investigate or prosecute any alcohol or drug abuse patient.[facility] HospitalIn the event this information is protected by the Federal Confidentiality of Alcohol and Drug Abuse Patient Records regulations: The Federal rules restrict any use of the information to criminally investigate or prosecute any alcohol or drug abuse patient.[facility] HospitalIn the event this information is protected by the Federal Confidentiality of Alcohol and Drug Abuse Patient Records regulations: The Federal rules restrict any use of the information to criminally investigate or prosecute any alcohol or drug abuse patient.[facility] HospitalIn the event this information is protected by the Federal Confidentiality of Alcohol and Drug Abuse Patient Records regulations: The Federal rules restrict any use of the information to criminally investigate or prosecute any alcohol or drug abuse patient.[facility] HospitalIn the event this information is protected by the Federal Confidentiality of Alcohol and Drug Abuse Patient Records regulations: The Federal rules restrict any use of the information to criminally investigate or prosecute any alcohol or drug abuse patient.[facility] HospitalIn the event this information is protected by the Federal Confidentiality of Alcohol and Drug Abuse Patient Records regulations: The Federal rules restrict any use of the information to criminally investigate or prosecute any alcohol or drug abuse patient.[facility] HospitalIn the event this information is protected by the Federal Confidentiality of Alcohol and Drug Abuse Patient Records regulations: The Federal rules restrict any use of the information to criminally investigate or prosecute any alcohol or drug abuse patient.[facility] HospitalIn the event this information is protected by the Federal Confidentiality of Alcohol and Drug Abuse Patient Records regulations: The Federal rules restrict any use of the information to criminally investigate or prosecute any alcohol or drug abuse patient.[facility] HospitalIn the event this information is protected by the Federal Confidentiality of Alcohol and Drug Abuse Patient Records regulations: The Federal rules restrict any use of the information to criminally investigate or prosecute any alcohol or drug abuse patient.[facility] HospitalIn the event this information is protected by the Federal Confidentiality of Alcohol and Drug Abuse Patient Records regulations: The Federal rules restrict any use of the information to criminally investigate or prosecute any alcohol or drug abuse patient.[facility] HospitalIn the event this information is protected by the Federal Confidentiality of Alcohol and Drug Abuse Patient Records regulations: The Federal rules restrict any use of the information to criminally investigate or prosecute any alcohol or drug abuse patient.[facility] HospitalIn the event this information is protected by the Federal Confidentiality of Alcohol and Drug Abuse Patient Records regulations: The Federal rules restrict any use of the information to criminally investigate or prosecute any alcohol or drug abuse patient.[facility] HospitalIn the event this information is protected by the Federal Confidentiality of Alcohol and Drug Abuse Patient Records regulations: The Federal rules restrict any use of the information to criminally investigate or prosecute any alcohol or drug abuse patient.[facility] HospitalIn the event this information is protected by the Federal Confidentiality of Alcohol and Drug Abuse Patient Records regulations: The Federal rules restrict any use of the information to criminally investigate or prosecute any alcohol or drug abuse patient.[facility] HospitalIn the event this information is protected by the Federal Confidentiality of Alcohol and Drug Abuse Patient Records regulations: The Federal rules restrict any use of the information to criminally investigate or prosecute any alcohol or drug abuse patient.[facility] HospitalIn the event this information is protected by the Federal Confidentiality of Alcohol and Drug Abuse Patient Records regulations: The Federal rules restrict any use of the information to criminally investigate or prosecute any alcohol or drug abuse patient.[facility] HospitalIn the event this information is protected by the Federal Confidentiality of Alcohol and Drug Abuse Patient Records regulations: The Federal rules restrict any use of the information to criminally investigate or prosecute any alcohol or drug abuse patient.[facility] HospitalIn the event this information is protected by the Federal Confidentiality of Alcohol and Drug Abuse Patient Records regulations: The Federal rules restrict any use of the information to criminally investigate or prosecute any alcohol or drug abuse patient.[facility] HospitalIn the event this information is protected by the Federal Confidentiality of Alcohol and Drug Abuse Patient Records regulations: The Federal rules restrict any use of the information to criminally investigate or prosecute any alcohol or drug abuse patient.[facility] HospitalIn the event this information is protected by the Federal Confidentiality of Alcohol and Drug Abuse Patient Records regulations: The Federal rules restrict any use of the information to criminally investigate or prosecute any alcohol or drug abuse patient.[facility] HospitalIn the event this information is protected by the Federal Confidentiality of Alcohol and Drug Abuse Patient Records regulations: The Federal rules restrict any use of the information to criminally investigate or prosecute any alcohol or drug abuse patient.[facility] HospitalIn the event this information is protected by the Federal Confidentiality of Alcohol and Drug Abuse Patient Records regulations: The Federal rules restrict any use of the information to criminally investigate or prosecute any alcohol or drug abuse patient.[facility] HospitalIn the event this information is protected by the Federal Confidentiality of Alcohol and Drug Abuse Patient Records regulations: The Federal rules restrict any use of the information to criminally investigate or prosecute any alcohol or drug abuse patient.[facility] HospitalIn the event this information is protected by the Federal Confidentiality of Alcohol and Drug Abuse Patient Records regulations: The Federal rules restrict any use of the information to criminally investigate or prosecute any alcohol or drug abuse patient.[facility] HospitalIn the event this information is protected by the Federal Confidentiality of Alcohol and Drug Abuse Patient Records regulations: The Federal rules restrict any use of the information to criminally investigate or prosecute any alcohol or drug abuse patient.[facility] HospitalIn the event this information is protected by the Federal Confidentiality of Alcohol and Drug Abuse Patient Records regulations: The Federal rules restrict any use of the information to criminally investigate or prosecute any alcohol or drug abuse patient.[facility] HospitalIn the event this information is protected by the Federal Confidentiality of Alcohol and Drug Abuse Patient Records regulations: The Federal rules restrict any use of the information to criminally investigate or prosecute any alcohol or drug abuse patient.[facility] HospitalIn the event this information is protected by the Federal Confidentiality of Alcohol and Drug Abuse Patient Records regulations: The Federal rules restrict any use of the information to criminally investigate or prosecute any alcohol or drug abuse patient.[facility] HospitalIn the event this information is protected by the Federal Confidentiality of Alcohol and Drug Abuse Patient Records regulations: The Federal rules restrict any use of the information to criminally investigate or prosecute any alcohol or drug abuse patient.[facility] HospitalIn the event this information is protected by the Federal Confidentiality of Alcohol and Drug Abuse Patient Records regulations: The Federal rules restrict any use of the information to criminally investigate or prosecute any alcohol or drug abuse patient.[facility] HospitalIn the event this information is protected by the Federal Confidentiality of Alcohol and Drug Abuse Patient Records regulations: The Federal rules restrict any use of the information to criminally investigate or prosecute any alcohol or drug abuse patient.[facility] HospitalIn the event this information is protected by the Federal Confidentiality of Alcohol and Drug Abuse Patient Records regulations: The Federal rules restrict any use of the information to criminally investigate or prosecute any alcohol or drug abuse patient.[facility] HospitalIn the event this information is protected by the Federal Confidentiality of Alcohol and Drug Abuse Patient Records regulations: The Federal rules restrict any use of the information to criminally investigate or prosecute any alcohol or drug abuse patient.[facility] HospitalIn the event this information is protected by the Federal Confidentiality of Alcohol and Drug Abuse Patient Records regulations: The Federal rules restrict any use of the information to criminally investigate or prosecute any alcohol or drug abuse patient.[facility] HospitalIn the event this information is protected by the Federal Confidentiality of Alcohol and Drug Abuse Patient Records regulations: The Federal rules restrict any use of the information to criminally investigate or prosecute any alcohol or drug abuse patient.[facility] HospitalIn the event this information is protected by the Federal Confidentiality of Alcohol and Drug Abuse Patient Records regulations: The Federal rules restrict any use of the information to criminally investigate or prosecute any alcohol or drug abuse patient.[facility] HospitalIn the event this information is protected by the Federal Confidentiality of Alcohol and Drug Abuse Patient Records regulations: The Federal rules restrict any use of the information to criminally investigate or prosecute any alcohol or drug abuse patient.[facility] HospitalIn the event this information is protected by the Federal Confidentiality of Alcohol and Drug Abuse Patient Records regulations: The Federal rules restrict any use of the information to criminally investigate or prosecute any alcohol or drug abuse patient.[facility] HospitalIn the event this information is protected by the Federal Confidentiality of Alcohol and Drug Abuse Patient Records regulations: The Federal rules restrict any use of the information to criminally investigate or prosecute any alcohol or drug abuse patient.[facility] HospitalIn the event this information is protected by the Federal Confidentiality of Alcohol and Drug Abuse Patient Records regulations: The Federal rules restrict any use of the information to criminally investigate or prosecute any alcohol or drug abuse patient.[facility] HospitalIn the event this information is protected by the Federal Confidentiality of Alcohol and Drug Abuse Patient Records regulations: The Federal rules restrict any use of the information to criminally investigate or prosecute any alcohol or drug abuse patient.[facility] HospitalIn the event this information is protected by the Federal Confidentiality of Alcohol and Drug Abuse Patient Records regulations: The Federal rules restrict any use of the information to criminally investigate or prosecute any alcohol or drug abuse patient.[facility] HospitalIn the event this information is protected by the Federal Confidentiality of Alcohol and Drug Abuse Patient Records regulations: The Federal rules restrict any use of the information to criminally investigate or prosecute any alcohol or drug abuse patient.[facility] HospitalIn the event this information is protected by the Federal Confidentiality of Alcohol and Drug Abuse Patient Records regulations: The Federal rules restrict any use of the information to criminally investigate or prosecute any alcohol or drug abuse patient.[facility] HospitalIn the event this information is protected by the Federal Confidentiality of Alcohol and Drug Abuse Patient Records regulations: The Federal rules restrict any use of the information to criminally investigate or prosecute any alcohol or drug abuse patient.[facility] HospitalIn the event this information is protected by the Federal Confidentiality of Alcohol and Drug Abuse Patient Records regulations: The Federal rules restrict any use of the information to criminally investigate or prosecute any alcohol or drug abuse patient.[facility] HospitalIn the event this information is protected by the Federal Confidentiality of Alcohol and Drug Abuse Patient Records regulations: The Federal rules restrict any use of the information to criminally investigate or prosecute any alcohol or drug abuse patient.[facility] HospitalIn the event this information is protected by the Federal Confidentiality of Alcohol and Drug Abuse Patient Records regulations: The Federal rules restrict any use of the information to criminally investigate or prosecute any alcohol or drug abuse patient.[facility] HospitalIn the event this information is protected by the Federal Confidentiality of Alcohol and Drug Abuse Patient Records regulations: The Federal rules restrict any use of the information to criminally investigate or prosecute any alcohol or drug abuse patient.[facility] HospitalIn the event this information is protected by the Federal Confidentiality of Alcohol and Drug Abuse Patient Records regulations: The Federal rules restrict any use of the information to criminally investigate or prosecute any alcohol or drug abuse patient.[facility] HospitalIn the event this information is protected by the Federal Confidentiality of Alcohol and Drug Abuse Patient Records regulations: The Federal rules restrict any use of the information to criminally investigate or prosecute any alcohol or drug abuse patient.[facility] HospitalIn the event this information is protected by the Federal Confidentiality of Alcohol and Drug Abuse Patient Records regulations: The Federal rules restrict any use of the information to criminally investigate or prosecute any alcohol or drug abuse patient.[facility] HospitalIn the event this information is protected by the Federal Confidentiality of Alcohol and Drug Abuse Patient Records regulations: The Federal rules restrict any use of the information to criminally investigate or prosecute any alcohol or drug abuse patient.[facility] HospitalIn the event this information is protected by the Federal Confidentiality of Alcohol and Drug Abuse Patient Records regulations: The Federal rules restrict any use of the information to criminally investigate or prosecute any alcohol or drug abuse patient.[facility] HospitalIn the event this information is protected by the Federal Confidentiality of Alcohol and Drug Abuse Patient Records regulations: The Federal rules restrict any use of the information to criminally investigate or prosecute any alcohol or drug abuse patient.[facility] HospitalIn the event this information is protected by the Federal Confidentiality of Alcohol and Drug Abuse Patient Records regulations: The Federal rules restrict any use of the information to criminally investigate or prosecute any alcohol or drug abuse patient.[facility] HospitalIn the event this information is protected by the Federal Confidentiality of Alcohol and Drug Abuse Patient Records regulations: The Federal rules restrict any use of the information to criminally investigate or prosecute any alcohol or drug abuse patient.[facility] HospitalIn the event this information is protected by the Federal Confidentiality of Alcohol and Drug Abuse Patient Records regulations: The Federal rules restrict any use of the information to criminally investigate or prosecute any alcohol or drug abuse patient.[facility] HospitalIn the event this information is protected by the Federal Confidentiality of Alcohol and Drug Abuse Patient Records regulations: The Federal rules restrict any use of the information to criminally investigate or prosecute any alcohol or drug abuse patient.[facility] HospitalIn the event this information is protected by the Federal Confidentiality of Alcohol and Drug Abuse Patient Records regulations: The Federal rules restrict any use of the information to criminally investigate or prosecute any alcohol or drug abuse patient.[facility] HospitalIn the event this information is protected by the Federal Confidentiality of Alcohol and Drug Abuse Patient Records regulations: The Federal rules restrict any use of the information to criminally investigate or prosecute any alcohol or drug abuse patient.[facility] HospitalIn the event this information is protected by the Federal Confidentiality of Alcohol and Drug Abuse Patient Records regulations: The Federal rules restrict any use of the information to criminally investigate or prosecute any alcohol or drug abuse patient.[facility] HospitalIn the event this information is protected by the Federal Confidentiality of Alcohol and Drug Abuse Patient Records regulations: The Federal rules restrict any use of the information to criminally investigate or prosecute any alcohol or drug abuse patient.[facility] HospitalIn the event this information is protected by the Federal Confidentiality of Alcohol and Drug Abuse Patient Records regulations: The Federal rules restrict any use of the information to criminally investigate or prosecute any alcohol or drug abuse patient.[facility] HospitalIn the event this information is protected by the Federal Confidentiality of Alcohol and Drug Abuse Patient Records regulations: The Federal rules restrict any use of the information to criminally investigate or prosecute any alcohol or drug abuse patient.[facility] HospitalIn the event this information is protected by the Federal Confidentiality of Alcohol and Drug Abuse Patient Records regulations: The Federal rules restrict any use of the information to criminally investigate or prosecute any alcohol or drug abuse patient.[facility] HospitalIn the event this information is protected by the Federal Confidentiality of Alcohol and Drug Abuse Patient Records regulations: The Federal rules restrict any use of the information to criminally investigate or prosecute any alcohol or drug abuse patient.[facility] HospitalIn the event this information is protected by the Federal Confidentiality of Alcohol and Drug Abuse Patient Records regulations: The Federal rules restrict any use of the information to criminally investigate or prosecute any alcohol or drug abuse patient.[facility] HospitalIn the event this information is protected by the Federal Confidentiality of Alcohol and Drug Abuse Patient Records regulations: The Federal rules restrict any use of the information to criminally investigate or prosecute any alcohol or drug abuse patient.[facility] HospitalIn the event this information is protected by the Federal Confidentiality of Alcohol and Drug Abuse Patient Records regulations: The Federal rules restrict any use of the information to criminally investigate or prosecute any alcohol or drug abuse patient.[facility] HospitalIn the event this information is protected by the Federal Confidentiality of Alcohol and Drug Abuse Patient Records regulations: The Federal rules restrict any use of the information to criminally investigate or prosecute any alcohol or drug abuse patient.[facility] HospitalIn the event this information is protected by the Federal Confidentiality of Alcohol and Drug Abuse Patient Records regulations: The Federal rules restrict any use of the information to criminally investigate or prosecute any alcohol or drug abuse patient.[facility] HospitalIn the event this information is protected by the Federal Confidentiality of Alcohol and Drug Abuse Patient Records regulations: The Federal rules restrict any use of the information to criminally investigate or prosecute any alcohol or drug abuse patient.[facility] HospitalIn the event this information is protected by the Federal Confidentiality of Alcohol and Drug Abuse Patient Records regulations: The Federal rules restrict any use of the information to criminally investigate or prosecute any alcohol or drug abuse patient.[facility] HospitalIn the event this information is protected by the Federal Confidentiality of Alcohol and Drug Abuse Patient Records regulations: The Federal rules restrict any use of the information to criminally investigate or prosecute any alcohol or drug abuse patient.[facility] HospitalIn the event this information is protected by the Federal Confidentiality of Alcohol and Drug Abuse Patient Records regulations: The Federal rules restrict any use of the information to criminally investigate or prosecute any alcohol or drug abuse patient.[facility] HospitalIn the event this information is protected by the Federal Confidentiality of Alcohol and Drug Abuse Patient Records regulations: The Federal rules restrict any use of the information to criminally investigate or prosecute any alcohol or drug abuse patient.[facility] HospitalIn the event this information is protected by the Federal Confidentiality of Alcohol and Drug Abuse Patient Records regulations: The Federal rules restrict any use of the information to criminally investigate or prosecute any alcohol or drug abuse patient.[facility] HospitalIn the event this information is protected by the Federal Confidentiality of Alcohol and Drug Abuse Patient Records regulations: The Federal rules restrict any use of the information to criminally investigate or prosecute any alcohol or drug abuse patient.[facility] HospitalIn the event this information is protected by the Federal Confidentiality of Alcohol and Drug Abuse Patient Records regulations: The Federal rules restrict any use of the information to criminally investigate or prosecute any alcohol or drug abuse patient.[facility] HospitalIn the event this information is protected by the Federal Confidentiality of Alcohol and Drug Abuse Patient Records regulations: The Federal rules restrict any use of the information to criminally investigate or prosecute any alcohol or drug abuse patient.[facility] HospitalIn the event this information is protected by the Federal Confidentiality of Alcohol and Drug Abuse Patient Records regulations: The Federal rules restrict any use of the information to criminally investigate or prosecute any alcohol or drug abuse patient.[facility] HospitalIn the event this information is protected by the Federal Confidentiality of Alcohol and Drug Abuse Patient Records regulations: The Federal rules restrict any use of the information to criminally investigate or prosecute any alcohol or drug abuse patient.[facility] HospitalIn the event this information is protected by the Federal Confidentiality of Alcohol and Drug Abuse Patient Records regulations: The Federal rules restrict any use of the information to criminally investigate or prosecute any alcohol or drug abuse patient.[facility] HospitalIn the event this information is protected by the Federal Confidentiality of Alcohol and Drug Abuse Patient Records regulations: The Federal rules restrict any use of the information to criminally investigate or prosecute any alcohol or drug abuse patient.[facility] HospitalIn the event this information is protected by the Federal Confidentiality of Alcohol and Drug Abuse Patient Records regulations: The Federal rules restrict any use of the information to criminally investigate or prosecute any alcohol or drug abuse patient.[facility] HospitalIn the event this information is protected by the Federal Confidentiality of Alcohol and Drug Abuse Patient Records regulations: The Federal rules restrict any use of the information to criminally investigate or prosecute any alcohol or drug abuse patient.[facility] HospitalIn the event this information is protected by the Federal Confidentiality of Alcohol and Drug Abuse Patient Records regulations: The Federal rules restrict any use of the information to criminally investigate or prosecute any alcohol or drug abuse patient.[facility] HospitalIn the event this information is protected by the Federal Confidentiality of Alcohol and Drug Abuse Patient Records regulations: The Federal rules restrict any use of the information to criminally investigate or prosecute any alcohol or drug abuse patient.[facility] HospitalIn the event this information is protected by the Federal Confidentiality of Alcohol and Drug Abuse Patient Records regulations: The Federal rules restrict any use of the information to criminally investigate or prosecute any alcohol or drug abuse patient.[facility] HospitalIn the event this information is protected by the Federal Confidentiality of Alcohol and Drug Abuse Patient Records regulations: The Federal rules restrict any use of the information to criminally investigate or prosecute any alcohol or drug abuse patient.[facility] HospitalIn the event this information is protected by the Federal Confidentiality of Alcohol and Drug Abuse Patient Records regulations: The Federal rules restrict any use of the information to criminally investigate or prosecute any alcohol or drug abuse patient.[facility] HospitalIn the event this information is protected by the Federal Confidentiality of Alcohol and Drug Abuse Patient Records regulations: The Federal rules restrict any use of the information to criminally investigate or prosecute any alcohol or drug abuse patient.[facility] HospitalIn the event this information is protected by the Federal Confidentiality of Alcohol and Drug Abuse Patient Records regulations: The Federal rules restrict any use of the information to criminally investigate or prosecute any alcohol or drug abuse patient.[facility] HospitalIn the event this information is protected by the Federal Confidentiality of Alcohol and Drug Abuse Patient Records regulations: The Federal rules restrict any use of the information to criminally investigate or prosecute any alcohol or drug abuse patient.[facility] HospitalIn the event this information is protected by the Federal Confidentiality of Alcohol and Drug Abuse Patient Records regulations: The Federal rules restrict any use of the information to criminally investigate or prosecute any alcohol or drug abuse patient.[facility] HospitalIn the event this information is protected by the Federal Confidentiality of Alcohol and Drug Abuse Patient Records regulations: The Federal rules restrict any use of the information to criminally investigate or prosecute any alcohol or drug abuse patient.[facility] HospitalIn the event this information is protected by the Federal Confidentiality of Alcohol and Drug Abuse Patient Records regulations: The Federal rules restrict any use of the information to criminally investigate or prosecute any alcohol or drug abuse patient.[facility] HospitalIn the event this information is protected by the Federal Confidentiality of Alcohol and Drug Abuse Patient Records regulations: The Federal rules restrict any use of the information to criminally investigate or prosecute any alcohol or drug abuse patient.[facility] HospitalIn the event this information is protected by the Federal Confidentiality of Alcohol and Drug Abuse Patient Records regulations: The Federal rules restrict any use of the information to criminally investigate or prosecute any alcohol or drug abuse patient.[facility] HospitalIn the event this information is protected by the Federal Confidentiality of Alcohol and Drug Abuse Patient Records regulations: The Federal rules restrict any use of the information to criminally investigate or prosecute any alcohol or drug abuse patient.[facility] HospitalIn the event this information is protected by the Federal Confidentiality of Alcohol and Drug Abuse Patient Records regulations: The Federal rules restrict any use of the information to criminally investigate or prosecute any alcohol or drug abuse patient.[facility] HospitalIn the event this information is protected by the Federal Confidentiality of Alcohol and Drug Abuse Patient Records regulations: The Federal rules restrict any use of the information to criminally investigate or prosecute any alcohol or drug abuse patient.[facility] HospitalIn the event this information is protected by the Federal Confidentiality of Alcohol and Drug Abuse Patient Records regulations: The Federal rules restrict any use of the information to criminally investigate or prosecute any alcohol or drug abuse patient.[facility] HospitalIn the event this information is protected by the Federal Confidentiality of Alcohol and Drug Abuse Patient Records regulations: The Federal rules restrict any use of the information to criminally investigate or prosecute any alcohol or drug abuse patient.[facility] HospitalIn the event this information is protected by the Federal Confidentiality of Alcohol and Drug Abuse Patient Records regulations: The Federal rules restrict any use of the information to criminally investigate or prosecute any alcohol or drug abuse patient.[facility] HospitalIn the event this information is protected by the Federal Confidentiality of Alcohol and Drug Abuse Patient Records regulations: The Federal rules restrict any use of the information to criminally investigate or prosecute any alcohol or drug abuse patient.[facility] HospitalIn the event this information is protected by the Federal Confidentiality of Alcohol and Drug Abuse Patient Records regulations: The Federal rules restrict any use of the information to criminally investigate or prosecute any alcohol or drug abuse patient.[facility] HospitalIn the event this information is protected by the Federal Confidentiality of Alcohol and Drug Abuse Patient Records regulations: The Federal rules restrict any use of the information to criminally investigate or prosecute any alcohol or drug abuse patient.[facility] HospitalIn the event this information is protected by the Federal Confidentiality of Alcohol and Drug Abuse Patient Records regulations: The Federal rules restrict any use of the information to criminally investigate or prosecute any alcohol or drug abuse patient.[facility] HospitalIn the event this information is protected by the Federal Confidentiality of Alcohol and Drug Abuse Patient Records regulations: The Federal rules restrict any use of the information to criminally investigate or prosecute any alcohol or drug abuse patient.[facility] HospitalIn the event this information is protected by the Federal Confidentiality of Alcohol and Drug Abuse Patient Records regulations: The Federal rules restrict any use of the information to criminally investigate or prosecute any alcohol or drug abuse patient.[facility] HospitalIn the event this information is protected by the Federal Confidentiality of Alcohol and Drug Abuse Patient Records regulations: The Federal rules restrict any use of the information to criminally investigate or prosecute any alcohol or drug abuse patient.[facility] HospitalIn the event this information is protected by the Federal Confidentiality of Alcohol and Drug Abuse Patient Records regulations: The Federal rules restrict any use of the information to criminally investigate or prosecute any alcohol or drug abuse patient.[facility] HospitalIn the event this information is protected by the Federal Confidentiality of Alcohol and Drug Abuse Patient Records regulations: The Federal rules restrict any use of the information to criminally investigate or prosecute any alcohol or drug abuse patient.[facility] HospitalIn the event this information is protected by the Federal Confidentiality of Alcohol and Drug Abuse Patient Records regulations: The Federal rules restrict any use of the information to criminally investigate or prosecute any alcohol or drug abuse patient.[facility] HospitalIn the event this information is protected by the Federal Confidentiality of Alcohol and Drug Abuse Patient Records regulations: The Federal rules restrict any use of the information to criminally investigate or prosecute any alcohol or drug abuse patient.[facility] HospitalIn the event this information is protected by the Federal Confidentiality of Alcohol and Drug Abuse Patient Records regulations: The Federal rules restrict any use of the information to criminally investigate or prosecute any alcohol or drug abuse patient.[facility] HospitalIn the event this information is protected by the Federal Confidentiality of Alcohol and Drug Abuse Patient Records regulations: The Federal rules restrict any use of the information to criminally investigate or prosecute any alcohol or drug abuse patient.[facility] HospitalIn the event this information is protected by the Federal Confidentiality of Alcohol and Drug Abuse Patient Records regulations: The Federal rules restrict any use of the information to criminally investigate or prosecute any alcohol or drug abuse patient.[facility] HospitalIn the event this information is protected by the Federal Confidentiality of Alcohol and Drug Abuse Patient Records regulations: The Federal rules restrict any use of the information to criminally investigate or prosecute any alcohol or drug abuse patient.[facility] HospitalIn the event this information is protected by the Federal Confidentiality of Alcohol and Drug Abuse Patient Records regulations: The Federal rules restrict any use of the information to criminally investigate or prosecute any alcohol or drug abuse patient.[facility] HospitalIn the event this information is protected by the Federal Confidentiality of Alcohol and Drug Abuse Patient Records regulations: The Federal rules restrict any use of the information to criminally investigate or prosecute any alcohol or drug abuse patient.[facility] HospitalIn the event this information is protected by the Federal Confidentiality of Alcohol and Drug Abuse Patient Records regulations: The Federal rules restrict any use of the information to criminally investigate or prosecute any alcohol or drug abuse patient.[facility] Care Teams (unrecognized sec tion and content) Php Web Developer Relationship Specialty Start Date End Date Stephanie Kapadia APRN.CNP, DNP [address] [place] [address] PCP - General Family Practice 08/21/20 Php Web Developer Relationship Specialty Start Date End Date Stephanie Kapadia APRN.CNP, DNP [address] [place] [address] PCP - General Family Practice 08/21/20 Php Web Developer Relationship Specialty Start Date End Date Stephanie Kapadia APRN.CNP, DNP [address] [place] [address] PCP - General Family Practice 08/21/20 Php Web Developer Relationship Specialty Start Date End Date Stephanie Kapadia, ASSOCIATE PROFESSOR OF AUTOMATION.CANDACE, DNP [address] [facility] [address] PCP - General Family Practice 08/21/20 Php Web Developer Relationship Specialty Start Date End Date Stephanie Kapadia, ASSOCIATE PROFESSOR OF AUTOMATION.CANDACE, DNP [address] [facility] [address] PCP - General Family Practice 08/21/20 Php Web Developer Relationship Specialty Start Date End Date Stephanie Kapadia, ASSOCIATE PROFESSOR OF AUTOMATION.CANDACE, DNP [address] [facility] [address] PCP - General Family Practice 08/21/20 Php Web Developer Relationship Specialty Start Date End Date Stephanie Kapadia, ASSOCIATE PROFESSOR OF AUTOMATION.CANDACE, DNP [address] [facility] [place] [address] PCP - General Family Practice 08/21/20 Php Web Developer Relationship Specialty Start Date End Date Stephanie Kapadia, ASSOCIATE PROFESSOR OF AUTOMATION.CANDACE, DNP [address] [facility] [place] [address] PCP - General Family Practice 08/21/20 Php Web Developer Relationship Specialty Start Date End Date Stephanie Kapadia, ASSOCIATE PROFESSOR OF AUTOMATION.CANDACE, DNP [address] [facility] [place] [address] PCP - General Family Practice 08/21/20 Php Web Developer Relationship Specialty Start Date End Date Stephanie Kapadia, ASSOCIATE PROFESSOR OF AUTOMATION.CANDACE, DNP [address] [facility] [place] [address] PCP - General Family Practice 08/21/20 Php Web Developer Relationship Specialty Start Date End Date Stephanie Kapadia, ASSOCIATE PROFESSOR OF AUTOMATION.CANDACE, DNP [address] [facility] [place] [address] PCP - General Family Practice 08/21/20 Php Web Developer Relationship Specialty Start Date End Date Lulu Swanson, ASSOCIATE PROFESSOR OF AUTOMATION.[employer] PANELS [address] [facility] [place] [address] PCP - General Family Practice 08/24/21 Php Web Developer Relationship Specialty Start Date End Date Lulu Swanson, ASSOCIATE PROFESSOR OF AUTOMATION.[employer] PANELS [address] [facility] [place] [address] PCP - General Family Practice 08/24/21 Php Web Developer Relationship Specialty Start Date End Date Lulu Swanson, ASSOCIATE PROFESSOR OF AUTOMATION.[employer] PANELS [address] [place] [address] PCP - General Family Practice 08/24/21 Php Web Developer Relationship Specialty Start Date End Date Lulu Swanson, ASSOCIATE PROFESSOR OF AUTOMATION.[employer] PANELS [address] [place] [address] PCP - General Family Practice 08/24/21 Php Web Developer Relationship Specialty Start Date End Date Lulu Swanson, ASSOCIATE PROFESSOR OF AUTOMATION.[employer] PANELS [address] [place] [address] PCP - General Family Practice 08/24/21 Php Web Developer Relationship Specialty Start Date End Date Lulu Swanson, ASSOCIATE PROFESSOR OF AUTOMATION.[employer] PANELS [address] [place] [address] PCP - General Family Medicine 08/24/21 Php Web Developer Relationship Specialty Start Date End Date Lulu Swanson, ASSOCIATE PROFESSOR OF AUTOMATION.[employer] PANELS [address] [facility] [place] [address] PCP - General Family Medicine 08/24/21 Php Web Developer Relationship Specialty Start Date End Date Lulu Swanson, ASSOCIATE PROFESSOR OF AUTOMATION.[employer] PANELS [address] [facility] [place] [address] PCP - General Family Medicine 08/24/21 Php Web Developer Relationship Specialty Start Date End Date Lulu Swanson, ASSOCIATE PROFESSOR OF AUTOMATION.[employer] PANELS [address] [place] [address] PCP - General Family Medicine 08/24/21 Php Web Developer Relationship Specialty Start Date End Date Lulu Swanson, ASSOCIATE PROFESSOR OF AUTOMATION.[employer] PANELS [address] [facility] [place] [address] PCP - General Family Medicine 08/24/21 Php Web Developer Relationship Specialty Start Date End Date HaLulu shrestha, ASSOCIATE PROFESSOR OF AUTOMATION.[employer] PANELS [address] [facility] [place] [address] PCP - General Family Medicine 08/24/21 Php Web Developer Relationship Specialty Start Date End Date Lulu Swanson, ASSOCIATE PROFESSOR OF AUTOMATION.[employer] PANELS [address] [facility] [place] [address] PCP - General Family Medicine 08/24/21 Php Web Developer Relationship Specialty Start Date End Date Lulu Swanson, ASSOCIATE PROFESSOR OF AUTOMATION.[employer] PANELS [address] [facility] [place] [address] PCP - General Family Medicine 08/24/21 Php Web Developer Relationship Specialty Start Date End Date Lulu Swanson, ASSOCIATE PROFESSOR OF AUTOMATION.[employer] PANELS [address] [facility] [place] [address] PCP - General Family Medicine 08/24/21 Php Web Developer Relationship Specialty Start Date End Date Lulu Swanson, ASSOCIATE PROFESSOR OF AUTOMATION.[employer] PANELS [address] [facility] [place] [address] PCP - General Family Medicine 08/24/21 Php Web Developer Relationship Specialty Start Date End Date Lulu Swanson, ASSOCIATE PROFESSOR OF AUTOMATION.[employer] PANELS [address] [facility] [place] [address] PCP - General Family Medicine 08/24/21 Php Web Developer Relationship Specialty Start Date End Date Lulu Swanson, ASSOCIATE PROFESSOR OF AUTOMATION.[employer] PANELS [address] [facility] [place] [address] PCP - General Family Medicine 08/24/21 Php Web Developer Relationship Specialty Start Date End Date Stephanie Kapadia, ASSOCIATE PROFESSOR OF AUTOMATION.[employer] PANELS, DNP [address] [facility] [place] [address] PCP - General Family Medicine 08/21/20 08/23/21 Lulu Swanson, ASSOCIATE PROFESSOR OF AUTOMATION.[employer] PANELS [address] [facility] [place] [address] PCP - General Family Medicine 08/24/21 Php Web Developer Relationship Specialty Start Date End Date Lulu Swanson, ASSOCIATE PROFESSOR OF AUTOMATION.[employer] PANELS [address] [facility] [place] [address] PCP - General Family Medicine 08/24/21 Php Web Developer Relationship Specialty Start Date End Date Lulu Swanson, ASSOCIATE PROFESSOR OF AUTOMATION.[employer] BO[employer] PANELS [address] [facility] [place] [address] PCP - General Family Medicine 08/24/21 Php Web Developer Relationship Specialty Start Date End Date Lulu Swanson, ASSOCIATE PROFESSOR OF AUTOMATION.[employer] PANELS [address] [facility] [place] [address] PCP - General Family Medicine 08/24/21 Php Web Developer Relationship Specialty Start Date End Date Lulu Swasnon, ASSOCIATE PROFESSOR OF AUTOMATION.[employer] PANELS [address] [facility] [place] [address] PCP - General Family Medicine 08/24/21 Php Web Developer Relationship Specialty Start Date End Date Lulu Swanson, ASSOCIATE PROFESSOR OF AUTOMATION.[employer] PANELS [address] [facility] [place] [address] PCP - General Family Medicine 08/24/21 Php Web Developer Relationship Specialty Start Date End Date Lulu Swanson, ASSOCIATE PROFESSOR OF AUTOMATION.[employer] PANELS [address] [facility] [place] [address] PCP - General Family Medicine 08/24/21 Php Web Developer Relationship Specialty Start Date End Date Haagen, Lulu, ASSOCIATE PROFESSOR OF AUTOMATION.[employer] PANELS [address] [place] [address] PCP - General Family Medicine 08/24/21 Php Web Developer Relationship Specialty Start Date End Date Isaias, Lulu, ASSOCIATE PROFESSOR OF AUTOMATION.[employer] PANELS [address] [place] [address] PCP - General Family Medicine 08/24/21 Team Status: Active Member Role Status Dates Dr. Howard Naranjo III, MD Family Provider Active Lulu Swanson PROCESS OPERATOR, PROCESS OPERATOR-C Primary Care Provider Active Team Status: Inactive Member Role Status Dates Guille Charles MD Emergency Provider Active Lulu Swanson PROCESS OPERATOR, PROCESS OPERATOR-C Primary Care Provider Active Php Web Developer Relationship Specialty Start Date End Date Rogelio, Lulu, ASSOCIATE PROFESSOR OF AUTOMATION.[employer] PANELS [address] [place] [address] PCP - General Family Medicine 08/24/21 Php Web Developer Relationship Specialty Start Date End Date Isaias, Lulu, ASSOCIATE PROFESSOR OF AUTOMATION.[employer] PANELS [address] [place] [address] PCP - General Family Medicine 08/24/21 Php Web Developer Relationship Specialty Start Date End Date Isaias, Lulu, ASSOCIATE PROFESSOR OF AUTOMATION.PL[employer] BOARD PANELS [address] [place] [address] PCP - General Family Medicine 08/24/21 Php Web Developer Relationship Specialty Start Date End Date Isaias, Lulu, ASSOCIATE PROFESSOR OF AUTOMATION.PL[employer] BOARD PANELS [address] [place] [address] PCP - General Family Medicine 08/24/21 Php Web Developer Relationship Specialty Start Date End Date Lulu Swanson, ASSOCIATE PROFESSOR OF AUTOMATION.PLATER PR[employer] BOARD PANELS [address] [place] [address] PCP - General Family Medicine 08/24/21 Php Web Developer Relationship Specialty Start Date End Date Lulu Swanson, ASSOCIATE PROFESSOR OF AUTOMATION.PLATER [employer] BOARD PANELS [address] [facility] [place] [address] PCP - General Family Medicine 08/24/21 Php Web Developer Relationship Specialty Start Date End Date Lulu Swanson, ASSOCIATE PROFESSOR OF AUTOMATION.PLATER PR[employer] BOARD PANELS [address] [facility] [place] [address] PCP - General Family Medicine 08/24/21 Php Web Developer Relationship Specialty Start Date End Date Lulu Swanson, ASSOCIATE PROFESSOR OF AUTOMATION.PLATER PR[employer] BOARD PANELS [address] [facility] [place] [address] PCP - General Family Medicine 08/24/21 Php Web Developer Relationship Specialty Start Date End Date Lulu Swanson, ASSOCIATE PROFESSOR OF AUTOMATION.PLATER [employer] BOARD PANELS [address] [facility] [place] [address] PCP - General Family Medicine 08/24/21 Php Web Developer Relationship Specialty Start Date End Date Lulu Swanson, ASSOCIATE PROFESSOR OF AUTOMATION.PL[employer] BOARD PANELS [address] [facility] [place] [address] PCP - General Family Medicine 08/24/21 Php Web Developer Relationship Specialty Start Date End Date Lulu Swanson, ASSOCIATE PROFESSOR OF AUTOMATION.PLATER PR[employer] BOARD PANELS [address] [facility] [place] [address] PCP - General Family Medicine 08/24/21 Php Web Developer Relationship Specialty Start Date End Date Lulu Swanson, ASSOCIATE PROFESSOR OF AUTOMATION.PLATER PR[employer] BOARD PANELS [address] [facility] [place] [address] PCP - General Family Medicine 08/24/21 Php Web Developer Relationship Specialty Start Date End Date Lulu Swanson, ASSOCIATE PROFESSOR OF AUTOMATION.PLATER PR[employer] BOARD PANELS [address] [facility] [place] [address] PCP - General Family Medicine 08/24/21 Php Web Developer Relationship Specialty Start Date End Date Lulu Swanson, ASSOCIATE PROFESSOR OF AUTOMATION.PL[employer] PR[employer] BOARD PANELS [address] [facility] [place] [address] PCP - General Family Medicine 08/24/21 Php Web Developer Relationship Specialty Start Date End Date Lulu Swanson, ASSOCIATE PROFESSOR OF AUTOMATION.PL[employer] BOARD PANELS [address] [facility] [place] [address] PCP - General Family Medicine 08/24/21 Php Web Developer Relationship Specialty Start Date End Date Lulu Swanson, ASSOCIATE PROFESSOR OF AUTOMATION.PLATER PR[employer] BOARD PANELS [address] [facility] [place] [address] PCP - General Family Medicine 08/24/21 Php Web Developer Relationship Specialty Start Date End Date Lulu Swanson, ASSOCIATE PROFESSOR OF AUTOMATION.PLATER PR[employer] BOARD PANELS [address] [facility] [place] [address] PCP - General Family Medicine 08/24/21 Php Web Developer Relationship Specialty Start Date End Date Lulu Swanson, ASSOCIATE PROFESSOR OF AUTOMATION.PLATER PR[employer] BOARD PANELS [address] [facility] [place] [address] PCP - General Family Medicine 08/24/21 Php Web Developer Relationship Specialty Start Date End Date Lulu Swanson, ASSOCIATE PROFESSOR OF AUTOMATION.PLATER PR[employer] BOARD PANELS [address] [facility] [place] [address] PCP - General Family Medicine 08/24/21 Php Web Developer Relationship Specialty Start Date End Date Lulu Swanson, ASSOCIATE PROFESSOR OF AUTOMATION.PLATER PR[employer] BOARD PANELS [address] [facility] [place] [address] PCP - General Family Medicine 08/24/21 Php Web Developer Relationship Specialty Start Date End Date Lulu Swanson, ASSOCIATE PROFESSOR OF AUTOMATION.PLATER PR[employer] BOARD PANELS [address] [place] [address] PCP - General Family Medicine 08/24/21 Php Web Developer Relationship Specialty Start Date End Date Stephanie Kapadia, ASSOCIATE PROFESSOR OF AUTOMATION.PLATER PR[employer] CIRCUIT BOARD PANELS, DNP [address] [place] [address] PCP - General Family Medicine 08/21/20 08/23/21 Php Web Developer Relationship Specialty Start Date End Date Stephanie Kapadia ASSOCIATE PROFESSOR OF AUTOMATION.CANDACE, DNP [address] [place] [address] PCP - General Family Medicine 08/21/20 08/23/21 Php Web Developer Relationship Specialty Start Date End Date Lulu Swanson, ASSOCIATE PROFESSOR OF AUTOMATION.PL[employer] BO[employer] PANELS [address] [place] [address] PCP - General Family Medicine 08/24/21 Php Web Developer Relationship Specialty Start Date End Date Lulu Swanson, ASSOCIATE PROFESSOR OF AUTOMATION.PLATER PR[employer] BOARD PANELS [address] [place] [address] PCP - General Family Medicine 08/24/21 Php Web Developer Relationship Specialty Start Date End Date Lulu Swanson, ASSOCIATE PROFESSOR OF AUTOMATION.PLATER PR[employer] BOARD PANELS [address] [place] [address] PCP - General Family Medicine 08/24/21 Php Web Developer Relationship Specialty Start Date End Date Lulu Swanson, ASSOCIATE PROFESSOR OF AUTOMATION.PL[employer] PR[employer] BOARD PANELS [address] [place] [address] PCP - General Family Medicine 08/24/21 Php Web Developer Relationship Specialty Start Date End Date Lulu Swanson, ASSOCIATE PROFESSOR OF AUTOMATION.PLATER PR[employer] BOARD PANELS [address] [facility] [place] [address] PCP - General Family Medicine 08/24/21 Php Web Developer Relationship Specialty Start Date End Date Lulu Swanson, ASSOCIATE PROFESSOR OF AUTOMATION.PLATER PR[employer] BOARD PANELS [address] [facility] [place] [address] PCP - General Family Medicine 08/24/21 Php Web Developer Relationship Specialty Start Date End Date Lulu Swanson, ASSOCIATE PROFESSOR OF AUTOMATION.PLATER PR[employer] BOARD PANELS [address] [facility] [place] [address] PCP - General Family Medicine 08/24/21 Php Web Developer Relationship Specialty Start Date End Date Lulu Swanson, ASSOCIATE PROFESSOR OF AUTOMATION.PLATER PR[employer] BOARD PANELS [address] [facility] [place] [address] PCP - General Family Medicine 08/24/21 Php Web Developer Relationship Specialty Start Date End Date Lulu Swanson, ASSOCIATE PROFESSOR OF AUTOMATION.PL[employer] PR[employer] BOARD PANELS [address] [facility] [place] [address] PCP - General Family Medicine 08/24/21 Php Web Developer Relationship Specialty Start Date End Date Lulu Swanson, ASSOCIATE PROFESSOR OF AUTOMATION.PL[employer] BOARD PANELS [address] [facility] [place] [address] PCP - General Family Medicine 08/24/21 Php Web Developer Relationship Specialty Start Date End Date Lulu Swanson, ASSOCIATE PROFESSOR OF AUTOMATION.PLATER PR[employer]ED [employer] BOARD PANELS [address] [facility] [place] [address] PCP - General Family Medicine 08/24/21 Idania Devries, ASSOCIATE PROFESSOR OF AUTOMATION.PLATER PRINTED CIRCUIT BOARD PANELS [address] [facility] [place] [address] Sea Kayaking Guide Family Medicine 01/18/24 Alvin Mckeon MD [address] [place] [address] Sea Kayaking Guide Family Medicine 01/18/24 Php Web Developer Relationship Specialty Start Date End Date Lulu Swanson APRN.PLATER PRINTED CIRCUIT BOARD PANELS [address] [place] [address] PCP - General Family Medicine 08/24/21 Idania Devries APRN.PLATER PRINTED CIRCUIT BOARD PANELS [address] [facility] [place] [address] Sea Kayaking Guide Family Medicine 01/18/24 Alvin Mckeon MD [address] [facility] [place] [address] Sea Kayaking Guide Family Medicine 01/18/24 Php Web Developer Relationship Specialty Start Date End Date Lulu Swanson APRN.PLATER PRINTED CIRCUIT BOARD PANELS [address] [facility] [place] [address] PCP - General Family Medicine 08/24/21 Idania Devries ASSOCIATE PROFESSOR OF AUTOMATION.PLATER PRINTED CIRCUIT BOARD PANELS [address] [facility] [place] [address] Sea Kayaking Guide Family Medicine 01/18/24 Alvin Mckeon MD [address] [facility] [place] [address] Sea Kayaking Guide Family Medicine 01/18/24 Php Web Developer Relationship Specialty Start Date End Date Lulu Swanson APRN.PLATER PRINTED CIRCUIT BOARD PANELS [address] [place] [address] PCP - General Family Medicine 08/24/21 Idania Devries ASSOCIATE PROFESSOR OF AUTOMATION.PLATER PRINTED CIRCUIT BOARD PANELS [address] [place] [address] Sea Kayaking Guide Family Medicine 01/18/24 Alvin Mckeon MD [address] [place] [address] [facility] 01/18/24 Php Web Developer Relationship Specialty Start Date End Date Lulu Swanson ASSOCIATE PROFESSOR OF AUTOMATION.PLATER PRINTED CIRCUIT BOARD PANELS [address] [place] [address] PCP - General Family Medicine 08/24/21 Idania Devries ASSOCIATE PROFESSOR OF AUTOMATION.PLATER PRINTED CIRCUIT BOARD PANELS [address] [facility] [address] Sea Kayaking [facility] Medicine 01/18/24 Alvin Mckeon MD [address] [place] [address] [facility] 01/18/24 Php Web Developer Relationship Specialty Start Date End Date Lulu Swanson, ASSOCIATE PROFESSOR OF AUTOMATION.PLATER PRINTED CIRCUIT BOARD PANELS [address] [place] [address] PCP - General Family Medicine 08/24/21 Alvin Mckeon MD [address] [facility] [address] [facility] 01/18/24 Php Web Developer Relationship Specialty Start Date End Date Lulu Swanson, ASSOCIATE PROFESSOR OF AUTOMATION.PLATER PRINTED CIRCUIT BOARD PANELS [address] [facility] [place] [address] PCP - General Family Medicine 08/24/21 Idania Devries ASSOCIATE PROFESSOR OF AUTOMATION.PLATER PRINTED CIRCUIT BOARD PANELS [address] [place] [address] Sea Kayaking Guide Family Medicine 01/18/24 Alvin Mckeon MD [address] [place] [address] Sea Kayaking Guide Family Medicine 01/18/24 Php Web Developer Relationship Specialty Start Date End Date Lulu Swanson APRN.PLATER PRINTED CIRCUIT BOARD PANELS [address] [place] [address] PCP - General Family Medicine 08/24/21 Idania Devries ASSOCIATE PROFESSOR OF AUTOMATION.PLATER PRINTED CIRCUIT BOARD PANELS [address] [place] [address] Sea Kayaking Guide Family Medicine 01/18/24 Alvin Mckeon MD [address] [place] [address] Sea Kayaking Guide Family Medicine 01/18/24 Php Web Developer Relationship Specialty Start Date End Date Lulu Swanson, ASSOCIATE PROFESSOR OF AUTOMATION.PLATER PRINTED CIRCUIT BOARD PANELS [address] [place] [address] PCP - General Family Medicine 08/24/21 Idania Devries ASSOCIATE PROFESSOR OF AUTOMATION.PLATER PRINTED CIRCUIT BOARD PANELS [address] [place] [address] Sea Kayaking Guide Family Medicine 01/18/24 Alvin Mckeon MD [address] [place] [address] Sea Kayaking Guide Family Medicine 01/18/24 Php Web Developer Relationship Specialty Start Date End Date Lulu Swanson ASSOCIATE PROFESSOR OF AUTOMATION.PLATER PRINTED CIRCUIT BOARD PANELS [address] [facility] [place] [address] PCP - General Family Medicine 08/24/21 Idania Devries APRN.PLATER PRINTED CIRCUIT BOARD PANELS [address] [place] [address] Sea Kayaking Guide Family Medicine 01/18/24 Alvin Mckeon MD [address] [facility] [address] Sea Kayaking Guide Family Medicine 01/18/24 Php Web Developer Relationship Specialty Start Date End Date Lulu Swanson APRN.PLATER PRINTED CIRCUIT BOARD PANELS [address] [facility] [place] [address] PCP - General Family Medicine 08/24/21 Idania Devries APRN.PLATER PRINTED CIRCUIT BOARD PANELS [address] [facility] [place] [address] Sea Kayaking Guide Family Medicine 01/18/24 Alvin Mckeon MD [address] [place] [address] Sea Kayaking Guide [facility] Medicine 01/18/24 Php Web Developer Relationship Specialty Start Date End Date Lulu Swanson APRN.PLATER PRINTED CIRCUIT BOARD PANELS [address] [place] [address] PCP - General Family Medicine 08/24/21 Idania Devries ASSOCIATE PROFESSOR OF AUTOMATION.PLATER PRINTED CIRCUIT BOARD PANELS [address] [place] [address] Sea Kayaking Guide Family Medicine 01/18/24 Alvin Mckeon MD [address] [facility] [place] [address] Sea Kayaking Guide Family Medicine 01/18/24 Php Web Developer Relationship Specialty Start Date End Date Lulu Swanson APRN.PLATER PRINTED CIRCUIT BOARD PANELS [address] [facility] [place] [address] PCP - General Family Medicine 08/24/21 Idania Devries APRN.PLATER PRINTED CIRCUIT BOARD PANELS [address] [place] [address] Sea Kayaking Guide Family Medicine 01/18/24 Alvin Mckeon MD [address] [place] [address] Sea [facility] 01/18/24 Php Web Developer Relationship Specialty Start Date End Date Lulu Swanson APRN.PLATER PRINTED CIRCUIT BOARD PANELS [address] [facility] [place] [address] PCP - General Family Medicine 08/24/21 Idania Devries ASSOCIATE PROFESSOR OF AUTOMATION.PLATER PRINTED CIRCUIT BOARD PANELS [address] [place] [address] Sea Kayaking Guide Family Medicine 01/18/24 Alvin Mckeon MD [address] [place] [address] Sea Kayaking Guide Family Medicine 01/18/24 Php Web Developer Relationship Specialty Start Date End Date Lulu Swanson ASSOCIATE PROFESSOR OF AUTOMATION.PLATER PRINTED CIRCUIT BOARD PANELS [address] [facility] [place] [address] PCP - General Family Medicine 08/24/21 Idania Devries ASSOCIATE PROFESSOR OF AUTOMATION.PLATER PRINTED CIRCUIT BOARD PANELS [address] [place] [address] Sea Kayaking Guide Family Medicine 01/18/24 05/03/24 Alvin Mckeon MD [address] [place] [address] Sea Kayaking Guide Family Medicine 01/18/24 05/03/24 Php Web Developer Relationship Specialty Start Date End Date Lulu Swanson, ASSOCIATE PROFESSOR OF AUTOMATION.PLATER PRINTED CIRCUIT BOARD PANELS [address] [place] [address] PCP - General Family Medicine 08/24/21 Idania Devries ASSOCIATE PROFESSOR OF AUTOMATION.PLATER PRINTED CIRCUIT BOARD PANELS [address] [place] [address] Sea Kayaking Guide Family [facility] 01/18/24 05/03/24 Alvin Mckeon MD [address] [place] [address] [facility] 01/[facility] 05/03/24 Php Web Developer Relationship Specialty Start Date End Date Lulu Swanson, ASSOCIATE PROFESSOR OF AUTOMATION.PLATER PRINTED CIRCUIT BOARD PANELS [address] [place] [address] PCP - General Family Medicine 08/24/21 Php Web Developer Relationship Specialty Start Date End Date Lulu Swanson, ASSOCIATE PROFESSOR OF AUTOMATION.PLATER PRINTED CIRCUIT BOARD PANELS [address] [place] [address] PCP - General Family Medicine 08/24/21 Php Web Developer Relationship Specialty Start Date End Date Lulu Swanson, ASSOCIATE PROFESSOR OF AUTOMATION.PLATER PRINTED CIRCUIT BOARD PANELS [address] [facility] [place] [address] PCP - General Family Medicine 08/24/21 Php Web Developer Relationship Specialty Start Date End Date Lulu Swanson, ASSOCIATE PROFESSOR OF AUTOMATION.PLATER PRINTED CIRCUIT BOARD PANELS [address] [place] [address] PCP - General Family Medicine 08/24/21 Php Web Developer Relationship Specialty Start Date End Date Lulu Swanson, ASSOCIATE PROFESSOR OF AUTOMATION.PLATER PRINTED CIRCUIT BOARD PANELS [address] [facility] [place] [address] PCP - General Family Medicine 08/24/21 Php Web Developer Relationship Specialty Start Date End Date Lulu Swanson, ASSOCIATE PROFESSOR OF AUTOMATION.PLATER PRINTED CIRCUIT BOARD PANELS [address] [facility] [place] [address] PCP - General Family Medicine 08/24/21 Php Web Developer Relationship Specialty Start Date End Date Lulu Swanson, ASSOCIATE PROFESSOR OF AUTOMATION.PLATER PRINTED CIRCUIT BOARD PANELS [address] [facility] [place] [address] PCP - General Family Medicine 08/24/21 Php Web Developer Relationship Specialty Start Date End Date Lulu Swanson, ASSOCIATE PROFESSOR OF AUTOMATION.PLATER PRINTED CIRCUIT BOARD PANELS [address] [facility] [place] [address] PCP - General Family Medicine 08/24/21 Php Web Developer Relationship Specialty Start Date End Date Lulu Swanson, ASSOCIATE PROFESSOR OF AUTOMATION.PLATER PRINTED CIRCUIT BOARD PANELS [address] [facility] [place] [address] PCP - General Family Medicine 08/24/21 Php Web Developer Relationship Specialty Start Date End Date Lulu Swanson, ASSOCIATE PROFESSOR OF AUTOMATION.PLATER PRINTED CIRCUIT BOARD PANELS [address] [facility] [place] [address] PCP - General Family Medicine 08/24/21 Php Web Developer Relationship Specialty Start Date End Date Lulu Swanson, ASSOCIATE PROFESSOR OF AUTOMATION.PLATER PRINTED CIRCUIT BOARD PANELS [address] [facility] [place] [address] PCP - General Family Medicine 08/24/21 Php Web Developer Relationship Specialty Start Date End Date Lulu Swanson, ASSOCIATE PROFESSOR OF AUTOMATION.PLATER PRINTED CIRCUIT BOARD PANELS [address] [facility] [place] [address] PCP - General Family Medicine 08/24/21 Php Web Developer Relationship Specialty Start Date End Date Lulu Swanson, ASSOCIATE PROFESSOR OF AUTOMATION.PLATER PRINTED CIRCUIT BOARD PANELS [address] [facility] [place] [address] PCP - General Family Medicine 08/24/21 Php Web Developer Relationship Specialty Start Date End Date Lulu Swanson, ASSOCIATE PROFESSOR OF AUTOMATION.PLATER PRINTED CIRCUIT BOARD PANELS [address] [facility] [place] [address] PCP - General Family Medicine 08/24/21 Php Web Developer Relationship Specialty Start Date End Date Lulu Swanson, ASSOCIATE PROFESSOR OF AUTOMATION.PLATER PRINTED CIRCUIT BOARD PANELS [address] [facility] [place] [address] PCP - General Family Medicine 08/24/21 Php Web Developer Relationship Specialty Start Date End Date Lulu Swanson, ASSOCIATE PROFESSOR OF AUTOMATION.PLATER PRINTED CIRCUIT BOARD PANELS [address] [facility] [place] [address] PCP - General Family Medicine 08/24/21 Team Status: Active Member Role/Relationship Status Dates Lulu Swanson PROCESS OPERATOR, PROCESS OPERATOR-C Primary care physician Active Team Status: Inactive Member Role/Relationship Status Dates Lulu Swanson PROCESS OPERATOR, PROCESS OPERATOR-C Primary care physician Active Start: November 19, 2024 End: November 23, 2024 Dr. Ru Marques MD Emergency Department Physician Active Start: November 19, 2024 End: November 23, 2024 Dr. Romeo Khan DO Admitting physician Active Start: November 19, 2024 End: November 23, 2024 Dr. Romeo Khan , Nurse Practitioner Active Start: November 19, 2024 End: November 23, 2024 Dr. Clay Rizzo MD Nurse Practitioner Active Start: November 19, 2024 End: November 23, 2024 Dr. Familia Gupta MD Nurse Practitioner Active Start: November 19, 2024 End: November 23, 2024 Dr. Fabrice Marte MD Nurse Practitioner Active Sta rt: November 19, 2024 End: November 23, 2024 Dr. Dustin Lizarraga MD Nurse Practitioner Active Start: November 19, 2024 End: November 23, 2024 Dr. Lg Leong , Nurse Practitioner Active S tart: November 19, 2024 End: November 23, 2024 Dr. Romeo James MD Nurse Practitioner Active Start: November 19, 2024 End: November 23, 2024 Dr. Stefany Mg , Nurse Practitioner Active S tart: November 19, 2024 End: November 23, 2024 Dr. Antonio Alvarez MD Nurse Practitioner Active Start: November 19, 2024 End: November 23, 2024 Dr. Shelby Abel MD Nurse Practitioner Active Start: November 19, 2024 End: November 23, 2024 Dr. Horace Pizarro MD Nurse Practitioner Active Start: November 19, 2024 End: November 23, 2024 Dr. Malika Salvador MD Nurse Practitioner Active Start: November 19, 2024 End: November 23, 2024 Dr. Cirilo Lopez MD Nurse Practitioner Active S tart: November 19, 2024 End: November 23, 2024 Dr. Pk Vargas MD Nurse Practitioner Active St art: November 19, 2024 End: November 23, 2024 Dr. Orlando Haile MD Nurse Practitioner Active Start: November 19, 2024 End: November 23, 2024 Dr. David Padilla MD Nurse Practitioner Active S tart: November 19, 2024 End: November 23, 2024 Dr. Luciana Guillermo MD Nurse Practitioner Active Start: November 19, 2024 End: November 23, 2024 Dr. Kaur August MD Nurse Practitioner Active Start: November 19, 2024 End: November 23, 2024 Dr. Dulce Basurto , Nurse Practitioner Active Start: November 19, 2024 End: November 23, 2024 Dr. Jameel Hou MD Nurse Practitioner Active St art: November 19, 2024 End: November 23, 2024 Dr. Joseluis Rodriguez MD Nurse Practitioner Active Start: November 19, 2024 End: November 23, 2024 Dr. Chelo Servin MD Nurse Practitioner Active Start: November 19, 2024 End: November 23, 2024 Dr. Vesta Beavers DO Nurse Practitioner Active Start: November 19, 2024 End: November 23, 2024 Dr. Edu Keenan MD Nurse Practitioner Active Start: November 19, 2024 End: November 23, 2024 Dr. Raheem Cuevas MD Nurse Practitioner Active Start: November 19, 2024 End: November 23, 2024 Dr. Bhargav Addison MD Nurse Practitioner Active Start: November 19, 2024 End: November 23, 2024 Dr. Varun Tellez DO Nurse Practitioner Active Start: November 19, 2024 End: November 23, 2024 Dr. Kathi Parmar MD Nurse Practitioner Active St art: November 19, 2024 End: November 23, 2024 Dr. Joe Barragan MD Nurse Practitioner Active Start: November 19, 2024 End: November 23, 2024 Dr. Shivani Ortiz MD Nurse Practitioner Active Start: November 19, 2024 End: November 23, 2024 Dr. Juan Jimenez , Nurse Practitioner Active Start: November 19, 2024 End: November 23, 2024 Dr. Basim Flores MD Nurse Practitioner Active Start: November 19, 2024 End: November 23, 2024 Dr. Liz Yang MD Nurse Practitioner Active Start: November 19, 2024 End: November 23, 2024 Dr. Alvin Duran MD Nurse Practitioner Active Start: November 19, 2024 End: November 23, 2024 Dr. Alejandro Pool MD Nurse Practitioner Active S tart: November 19, 2024 End: November 23, 2024 Dr. Romeo Mina MD Attending physician Active Start: November 19, 2024 End: November 23, 2024 Dr. Kenny Pompa MD Nurse Practitioner Active Start: November 19, 2024 End: November 23, 2024 Team Status: Active Member Role/Relationship Status Dates Lulu Swanson PROCESS OPERATOR, PROCESS OPERATOR-C Primary care physician Active Start: November 19, 2024 Dr. Kam Vasquez MD Attending physician Active Start: November 19, 2024 Team Status: Active Member Role/Relationship Status Dates Lulu Swanson PROCESS OPERATOR, PROCESS OPERATOR-C Primary care physician Active Start: November 19, 2024 Dr. Ru Marques MD Emergency Department Physician Active Start: November 19, 2024 Dr. Romeo Khan , DO Admitting physician Active Start: November 19, 2024 Dr. Romeo Khan , DO Referring Provider Active Start: November 19, 2024 Dr. Romeo Khan , DO Nurse Practitioner Active Start: November 19, 2024 Dr. Clay Rizzo MD Nurse Practitioner Active Start: November 19, 2024 Dr. Familia Gupta MD Nurse Practitioner Active Start: November 19, 2024 Dr. Fabrice Marte MD Nurse Practitioner Active Sta rt: November 19, 2024 Dr. Dustin Lizarraga MD Nurse Practitioner Active Start: November 19, 2024 Dr. Lg Leong , DO Nurse Practitioner Active S tart: November 19, 2024 Dr. Romeo James MD Nurse Practitioner Active Start: November 19, 2024 Dr. Stefany Mg , DO Nurse Practitioner Active S tart: November 19, 2024 Dr. Antonio Alvarez MD Nurse Practitioner Active Start: November 19, 2024 Dr. Shelby Abel MD Nurse Practitioner Active Start: November 19, 2024 Dr. Horace Pizarro MD Nurse Practitioner Active Start: November 19, 2024 Dr. Malika Salvador MD Nurse Practitioner Active Start: November 19, 2024 Dr. Cirilo Lopez MD Nurse Practitioner Active S tart: November 19, 2024 Dr. Pk Vargas MD Nurse Practitioner Active St art: November 19, 2024 Dr. Orlando Haile MD Nurse Practitioner Active Start: November 19, 2024 Dr. David Padilla MD Nurse Practitioner Active S tart: November 19, 2024 Dr. Luciana Guillermo MD Nurse Practitioner Active Start: November 19, 2024 Dr. Kaur August MD Nurse Practitioner Active Start: November 19, 2024 Dr. Dulce Basurto , DO Nurse Practitioner Active Start: November 19, 2024 Dr. Jameel Hou MD Nurse Practitioner Active St art: November 19, 2024 Dr. Joseluis Rodriguez MD Nurse Practitioner Active Start: November 19, 2024 Dr. Chelo Servin MD Nurse Practitioner Active Start: November 19, 2024 Dr. Vesta Beavers , DO Nurse Practitioner Active Start: November 19, 2024 Dr. Edu Keenan MD Nurse Practitioner Active Start: November 19, 2024 Dr. Raheem Cuevas MD Nurse Practitioner Active Start: November 19, 2024 Dr. Bhargav Addison MD Nurse Practitioner Active Start: November 19, 2024 Dr. Varun Tellez , Nurse Practitioner Active Start: November 19, 2024 Dr. Kathi Parmar MD Nurse Practitioner Active St art: November 19, 2024 Dr. Joe Barragan MD Nurse Practitioner Active Start: November 19, 2024 Dr. Shivani Ortiz MD Nurse Practitioner Active Start: November 19, 2024 Dr. Juan Jimenez , Nurse Practitioner Active Start: November 19, 2024 Dr. Basim Flores MD Nurse Practitioner Active Start: November 19, 2024 Dr. Liz Yang MD Nurse Practitioner Active Start: November 19, 2024 Dr. Alvin Duran MD Nurse Practitioner Active Start: November 19, 2024 Dr. Alejandro Pool MD Nurse Practitioner Active S tart: November 19, 2024 Dr. Romeo Mina MD Nurse Practitioner Active Start: November 19, 2024 Dr. Kenny Pompa MD Nurse Practitioner Active Start: November 19, 2024 AUBREY Kellogg Attending physician Active Sta rt: November 19, 2024 Team Status: Active Member Role/Relationship Status Dates Lulu Swanson PROCESS OPERATOR, PROCESS OPERATOR-C Primary care physician Active Start: November 19, 2024 Dr. Ru Marques MD Emergency Department Physician Active Start: November 19, 2024 Dr. Romeo Khan , DO Admitting physician Active Start: November 19, 2024 Dr. Romeo Khan , Nurse Practitioner Active Start: November 19, 2024 Dr. Kenny Pompa MD Nurse Practitioner Active Start: November 19, 2024 Dr. Clya Rizzo MD Nurse Practitioner Active Start: November 19, 2024 Dr. Alejandro Pool MD Nurse Practitioner Active S tart: November 19, 2024 Dr. Ej Brown MD Attending physician Active Start: November 19, 2024 Team Status: Active Member Role/Relationship Status Dates Lulu Swanson PROCESS OPERATOR, PROCESS OPERATOR-C Primary care physician Active Start: November 20, 2024 Dr. Ru Marques MD Emergency Department Physician Active Start: November 20, 2024 Dr. Romeo Khan DO Admitting physician Active Start: November 20, 2024 Dr. Romeo Khan DO Nurse Practitioner Active Start: November 20, 2024 Dr. Kenny Pompa MD Nurse Practitioner Active Start: November 20, 2024 Dr. Clay Rizzo MD Nurse Practitioner Active Start: November 20, 2024 Dr. Alejandro Pool MD Nurse Practitioner Active S tart: November 20, 2024 Dr. Ej Brown MD Attending physician Active Start: November 20, 2024 Team Status: Active Member Role/Relationship Status Dates Lulu Swanson PROCESS OPERATOR, PROCESS OPERATOR-C Primary care physician Active Start: November 20, 2024 Dr. Ru Marques MD Emergency Department Physician Active Start: November 20, 2024 Dr. Romeo Khan DO Admitting physician Active Start: November 20, 2024 Dr. Romeo Khan DO Nurse Practitioner Active Start: November 20, 2024 Dr. Kenny Pompa MD Attending physician Active Start: November 20, 2024 Dr. Kenny Pompa MD Nurse Practitioner Active Start: November 20, 2024 Dr. Clay Rizzo MD Nurse Practitioner Active Start: November 20, 2024 Dr. Alejandro Pool MD Nurse Practitioner Active S tart: November 20, 2024 Team Status: Active Member Role/Relationship Status Dates Lulu Swanson PROCESS OPERATOR, PROCESS OPERATOR-C Primary care physician Active Start: November 21, 2024 Dr. Ru Marques MD Emergency Department Physician Active Start: November 21, 2024 Dr. Romeo Khan DO Admitting physician Active Start: November 21, 2024 Dr. Romeo Khan DO Nurse Practitioner Active Start: November 21, 2024 Dr. Kenny Pompa MD Nurse Practitioner Active Start: November 21, 2024 Dr. Clay Rizzo MD Nurse Practitioner Active Start: November 21, 2024 Dr. Familia Gupta MD Nurse Practitioner Active Start: November 21, 2024 Dr. Fabrice Marte MD Nurse Practitioner Active Sta rt: November 21, 2024 Dr. Dustin Lizarraga MD Nurse Practitioner Active Start: November 21, 2024 Dr. Lg Leong , DO Nurse Practitioner Active S tart: November 21, 2024 Dr. Romeo James MD Nurse Practitioner Active Start: November 21, 2024 Dr. Stefany Mg , DO Nurse Practitioner Active S tart: November 21, 2024 Dr. Antonio Alvarez MD Nurse Practitioner Active Start: November 21, 2024 Dr. Shelby Abel MD Nurse Practitioner Active Start: November 21, 2024 Dr. Horace Pizarro MD Nurse Practitioner Active Start: November 21, 2024 Dr. Malika Salvador MD Nurse Practitioner Active Start: November 21, 2024 Dr. Cirilo Lopez MD Nurse Practitioner Active S tart: November 21, 2024 Dr. Pk Vargas MD Nurse Practitioner Active St art: November 21, 2024 Dr. Orlando Haile MD Nurse Practitioner Active Start: November 21, 2024 Dr. David Padilla MD Nurse Practitioner Active S tart: November 21, 2024 Dr. Luciana Guillermo MD Nurse Practitioner Active Start: November 21, 2024 Dr. Kaur August MD Nurse Practitioner Active Start: November 21, 2024 Dr. Dulce Basurto , DO Nurse Practitioner Active Start: November 21, 2024 Dr. Jameel Hou MD Nurse Practitioner Active St art: November 21, 2024 Dr. Joseluis Rodriguez MD Nurse Practitioner Active Start: November 21, 2024 Dr. Chelo Servin MD Nurse Practitioner Active Start: November 21, 2024 Dr. Vesta Beavers , Nurse Practitioner Active Start: November 21, 2024 Dr. Edu Keenan MD Nurse Practitioner Active Start: November 21, 2024 Dr. Raheem Cuevas MD Nurse Practitioner Active Start: November 21, 2024 Dr. Bhargav Addison MD Nurse Practitioner Active Start: November 21, 2024 Dr. Varun Tellez , DO Nurse Practitioner Active Start: November 21, 2024 Dr. Kathi Parmar MD Nurse Practitioner Active St art: November 21, 2024 Dr. Joe Barragan MD Nurse Practitioner Active Start: November 21, 2024 Dr. Shivani Ortiz MD Nurse Practitioner Active Start: November 21, 2024 Dr. Juan Jimenez , DO Nurse Practitioner Active Start: November 21, 2024 Dr. Basim Flores MD Nurse Practitioner Active Start: November 21, 2024 Dr. Liz Yang MD Nurse Practitioner Active Start: November 21, 2024 Dr. Alvin Duran MD Nurse Practitioner Active Start: November 21, 2024 Dr. Alejandro Pool MD Nurse Practitioner Active S tart: November 21, 2024 Dr. Ej Brown MD Attending physician Active Start: November 21, 2024 Team Status: Active Member Role/Relationship Status Dates Lulu Swanson PROCESS OPERATOR, PROCESS OPERATOR-C Primary care physician Active Start: November 21, 2024 Dr. Ru Marques MD Emergency Department Physician Active Start: November 21, 2024 Dr. Romeo Khan , DO Admitting physician Active Start: November 21, 2024 Dr. Romeo Khan , DO Nurse Practitioner Active Start: November 21, 2024 Dr. Kenny Pompa MD Attending physician Active Start: November 21, 2024 Dr. Kenny Pompa MD Nurse Practitioner Active Start: November 21, 2024 Dr. Clay Rizzo MD Nurse Practitioner Active Start: November 21, 2024 Dr. Alejandro Pool MD Nurse Practitioner Active S tart: November 21, 2024 Dr. Familia Gupta MD Nurse Practitioner Active Start: November 21, 2024 Dr. Fabrice Marte MD Nurse Practitioner Active Sta rt: November 21, 2024 Dr. Dustin Lizarraga MD Nurse Practitioner Active Start: November 21, 2024 Dr. Lg Leong , DO Nurse Practitioner Active S tart: November 21, 2024 Dr. Romeo James MD Nurse Practitioner Active Start: November 21, 2024 Dr. Stefany Mg , DO Nurse Practitioner Active S tart: November 21, 2024 Dr. Antonio Alvarez MD Nurse Practitioner Active Start: November 21, 2024 Dr. Shelby Abel MD Nurse Practitioner Active Start: November 21, 2024 Dr. Horace Pizarro MD Nurse Practitioner Active Start: November 21, 2024 Dr. Malika Salvador MD Nurse Practitioner Active Start: November 21, 2024 Dr. Cirilo Lopez MD Nurse Practitioner Active S tart: November 21, 2024 Dr. Pk Vargas MD Nurse Practitioner Active St art: November 21, 2024 Dr. Orlando Haile MD Nurse Practitioner Active Start: November 21, 2024 Dr. David Padilla MD Nurse Practitioner Active S tart: November 21, 2024 Dr. Luciana Guillermo MD Nurse Practitioner Active Start: November 21, 2024 Dr. Kaur August MD Nurse Practitioner Active Start: November 21, 2024 Dr. Dulce Basurto , DO Nurse Practitioner Active Start: November 21, 2024 Dr. Jameel Hou MD Nurse Practitioner Active St art: November 21, 2024 Dr. Joseluis Rodriguez MD Nurse Practitioner Active Start: November 21, 2024 Dr. Chelo Servin MD Nurse Practitioner Active Start: November 21, 2024 Dr. Vesta Beavers , DO Nurse Practitioner Active Start: November 21, 2024 Dr. Edu Keenan MD Nurse Practitioner Active Start: November 21, 2024 Dr. Raheem Cuevas MD Nurse Practitioner Active Start: November 21, 2024 Dr. Bhargav Addison MD Nurse Practitioner Active Start: November 21, 2024 Dr. Varun Tellez , DO Nurse Practitioner Active Start: November 21, 2024 Dr. Kathi Parmar MD Nurse Practitioner Active St art: November 21, 2024 Dr. Joe Barragan MD Nurse Practitioner Active Start: November 21, 2024 Dr. Shivani Ortiz MD Nurse Practitioner Active Start: November 21, 2024 Dr. Juan Jimenez , DO Nurse Practitioner Active Start: November 21, 2024 Dr. Basim Flores MD Nurse Practitioner Active Start: November 21, 2024 Dr. Liz Yang MD Nurse Practitioner Active Start: November 21, 2024 Dr. Alvin Duran MD Nurse Practitioner Active Start: November 21, 2024 Team Status: Active Member Role/Relationship Status Dates Lulu Swanson PROCESS OPERATOR, PROCESS OPERATOR-C Primary care physician Active Start: November 22, 2024 Dr. Ru Marques MD Emergency Department Physician Active Start: November 22, 2024 Dr. Romeo Khan , DO Admitting physician Active Start: November 22, 2024 Dr. Romeo Khan , DO Nurse Practitioner Active Start: November 22, 2024 Dr. Clay Rizzo MD Nurse Practitioner Active Start: November 22, 2024 Dr. Familia Gupta MD Nurse Practitioner Active Start: November 22, 2024 Dr. Fabrice Marte MD Nurse Practitioner Active Sta rt: November 22, 2024 Dr. Dustin Lizarraga MD Nurse Practitioner Active Start: November 22, 2024 Dr. Lg Leong , DO Nurse Practitioner Active S tart: November 22, 2024 Dr. Romeo James MD Nurse Practitioner Active Start: November 22, 2024 Dr. Stefany Mg , DO Nurse Practitioner Active S tart: November 22, 2024 Dr. Antonio Alvarez MD Nurse Practitioner Active Start: November 22, 2024 Dr. Shelby Abel MD Nurse Practitioner Active Start: November 22, 2024 Dr. Horace Pizarro MD Nurse Practitioner Active Start: November 22, 2024 Dr. Malika Salvador MD Nurse Practitioner Active Start: November 22, 2024 Dr. Cirilo Lopez MD Nurse Practitioner Active S tart: November 22, 2024 Dr. Pk Vargas MD Nurse Practitioner Active St art: November 22, 2024 Dr. Orlando Haile MD Nurse Practitioner Active Start: November 22, 2024 Dr. David Padilla MD Nurse Practitioner Active S tart: November 22, 2024 Dr. Luciana Guillermo MD Nurse Practitioner Active Start: November 22, 2024 Dr. Kaur August MD Nurse Practitioner Active Start: November 22, 2024 Dr. Dulce Basurto , Nurse Practitioner Active Start: November 22, 2024 Dr. Jameel Hou MD Nurse Practitioner Active St art: November 22, 2024 Dr. Joseluis Rodriguez MD Nurse Practitioner Active Start: November 22, 2024 Dr. Chelo Servin MD Nurse Practitioner Active Start: November 22, 2024 Dr. Vesta Beavers , Nurse Practitioner Active Start: November 22, 2024 Dr. Edu Keenan MD Nurse Practitioner Active Start: November 22, 2024 Dr. Raheem Cuevas MD Nurse Practitioner Active Start: November 22, 2024 Dr. Bhargav Addison MD Nurse Practitioner Active Start: November 22, 2024 Dr. Varun Tellez , DO Nurse Practitioner Active Start: November 22, 2024 Dr. Kathi Parmar MD Nurse Practitioner Active St art: November 22, 2024 Dr. Joe Barragan MD Nurse Practitioner Active Start: November 22, 2024 Dr. Shivani Ortiz MD Nurse Practitioner Active Start: November 22, 2024 Dr. Juan Jimenez , Nurse Practitioner Active Start: November 22, 2024 Dr. Basim Flores MD Nurse Practitioner Active Start: November 22, 2024 Dr. Liz Yang MD Nurse Practitioner Active Start: November 22, 2024 Dr. Alvin Duran MD Nurse Practitioner Active Start: November 22, 2024 Dr. Alejandro Pool MD Nurse Practitioner Active S tart: November 22, 2024 Dr. Romeo Mina MD Nurse Practitioner Active Start: November 22, 2024 Dr. Kenny Pompa MD Nurse Practitioner Active Start: November 22, 2024 Lisa Pelaez PA, PA-C Attending physician Active Start: November 22, 2024 Team Status: Active Member Role/Relationship Status Dates Lulu Swanson PROCESS OPERATOR, PROCESS OPERATOR-C Primary care physician Active Start: November 22, 2024 Dr. Ru Marques MD Emergency Department Physician Active Start: November 22, 2024 Dr. Romeo Khan , DO Admitting physician Active Start: November 22, 2024 Dr. Romeo Khan , DO Nurse Practitioner Active Start: November 22, 2024 Dr. Clay Rizzo MD Nurse Practitioner Active Start: November 22, 2024 Dr. Familia Gupta MD Nurse Practitioner Active Start: November 22, 2024 Dr. Fabrice Marte MD Nurse Practitioner Active Sta rt: November 22, 2024 Dr. Dustin Lizarraga MD Nurse Practitioner Active Start: November 22, 2024 Dr. Lg Leong , DO Nurse Practitioner Active S tart: November 22, 2024 Dr. Romeo James MD Nurse Practitioner Active Start: November 22, 2024 Dr. Stefany Mg , DO Nurse Practitioner Active S tart: November 22, 2024 Dr. Antonio Alvarez MD Nurse Practitioner Active Start: November 22, 2024 Dr. Shelby Abel MD Nurse Practitioner Active Start: November 22, 2024 Dr. Horace Pizarro MD Nurse Practitioner Active Start: November 22, 2024 Dr. Malika Salvador MD Nurse Practitioner Active Start: November 22, 2024 Dr. Cirilo Lopez MD Nurse Practitioner Active S tart: November 22, 2024 Dr. Pk Vargas MD Nurse Practitioner Active St art: November 22, 2024 Dr. Orlando Haile MD Nurse Practitioner Active Start: November 22, 2024 Dr. David Padilla MD Nurse Practitioner Active S tart: November 22, 2024 Dr. Luciana Guillermo MD Nurse Practitioner Active Start: November 22, 2024 Dr. Kaur August MD Nurse Practitioner Active Start: November 22, 2024 Dr. Dulce Basurto , DO Nurse Practitioner Active Start: November 22, 2024 Dr. Jameel Hou MD Nurse Practitioner Active St art: November 22, 2024 Dr. Joseluis Rodriguez MD Nurse Practitioner Active Start: November 22, 2024 Dr. Chelo Servin MD Nurse Practitioner Active Start: November 22, 2024 Dr. Vesta Beavers , DO Nurse Practitioner Active Start: November 22, 2024 Dr. Edu Keenan MD Nurse Practitioner Active Start: November 22, 2024 Dr. Raheem Cuevas MD Nurse Practitioner Active Start: November 22, 2024 Dr. Bhargav Addison MD Nurse Practitioner Active Start: November 22, 2024 Dr. Varun Tellez , Nurse Practitioner Active Start: November 22, 2024 Dr. Kathi Parmar MD Nurse Practitioner Active St art: November 22, 2024 Dr. Joe Barragan MD Nurse Practitioner Active Start: November 22, 2024 Dr. Shivani Ortiz MD Nurse Practitioner Active Start: November 22, 2024 Dr. Juan Jimenez , DO Nurse Practitioner Active Start: November 22, 2024 Dr. Basim Flores MD Nurse Practitioner Active Start: November 22, 2024 Dr. Liz Yang MD Nurse Practitioner Active Start: November 22, 2024 Dr. Alvin Duran MD Nurse Practitioner Active Start: November 22, 2024 Dr. Alejandro Pool MD Nurse Practitioner Active S tart: November 22, 2024 Dr. Romeo Mina MD Attending physician Active Start: November 22, 2024 Dr. Romeo Mina MD Nurse Practitioner Active Start: November 22, 2024 Dr. Kenny Pompa MD Nurse Practitioner Active Start: November 22, 2024 Team Status: Active Member Role/Relationship Status Dates Lulu Swanson PROCESS OPERATOR, PROCESS OPERATOR-C Primary care physician Active Start: November 22, 2024 Dr. Ru Marques MD Emergency Department Physician Active Start: November 22, 2024 Dr. Romeo Khan , DO Admitting physician Active Start: November 22, 2024 Dr. Romeo Khan , DO Nurse Practitioner Active Start: November 22, 2024 Dr. Clay Rizzo MD Nurse Practitioner Active Start: November 22, 2024 Dr. Familia Gupta MD Nurse Practitioner Active Start: November 22, 2024 Dr. Fabrice Marte MD Nurse Practitioner Active Sta rt: November 22, 2024 Dr. Dustin Lizarraga MD Nurse Practitioner Active Start: November 22, 2024 Dr. Lg Leong , DO Nurse Practitioner Active S tart: November 22, 2024 Dr. Romeo James MD Nurse Practitioner Active Start: November 22, 2024 Dr. Stefany Mg , DO Nurse Practitioner Active S tart: November 22, 2024 Dr. Antonio Alvarez MD Nurse Practitioner Active Start: November 22, 2024 Dr. Shelby Abel MD Nurse Practitioner Active Start: November 22, 2024 Dr. Horace Pizarro MD Nurse Practitioner Active Start: November 22, 2024 Dr. Malika Salvador MD Nurse Practitioner Active Start: November 22, 2024 Dr. Cirilo Lopez MD Nurse Practitioner Active S tart: November 22, 2024 Dr. Pk Vargas MD Nurse Practitioner Active St art: November 22, 2024 Dr. Orlando Haile MD Nurse Practitioner Active Start: November 22, 2024 Dr. David Padilla MD Nurse Practitioner Active S tart: November 22, 2024 Dr. Luciana Guillermo MD Nurse Practitioner Active Start: November 22, 2024 Dr. Kaur August MD Nurse Practitioner Active Start: November 22, 2024 Dr. Dulce Basurto , DO Nurse Practitioner Active Start: November 22, 2024 Dr. Jameel Hou MD Nurse Practitioner Active St art: November 22, 2024 Dr. Joseluis Rodriguez MD Nurse Practitioner Active Start: November 22, 2024 Dr. Chelo Servin MD Nurse Practitioner Active Start: November 22, 2024 Dr. Vesta Beavers , DO Nurse Practitioner Active Start: November 22, 2024 Dr. Edu Keenan MD Nurse Practitioner Active Start: November 22, 2024 Dr. Raheem Cuevas MD Nurse Practitioner Active Start: November 22, 2024 Dr. Bhargav Addison MD Nurse Practitioner Active Start: November 22, 2024 Dr. Varun Tellez , DO Nurse Practitioner Active Start: November 22, 2024 Dr. Kathi Parmar MD Nurse Practitioner Active St art: November 22, 2024 Dr. Joe Barragan MD Nurse Practitioner Active Start: November 22, 2024 Dr. Shivani Ortiz MD Nurse Practitioner Active Start: November 22, 2024 Dr. Juan Jimenez , Nurse Practitioner Active Start: November 22, 2024 Dr. Basim Flores MD Nurse Practitioner Active Start: November 22, 2024 Dr. Liz Yang MD Nurse Practitioner Active Start: November 22, 2024 Dr. Alvin Duran MD Nurse Practitioner Active Start: November 22, 2024 Dr. Alejandro Pool MD Attending physician Active Start: November 22, 2024 Dr. Alejandro Pool MD Nurse Practitioner Active S tart: November 22, 2024 Dr. Romeo Mina MD Referring Provider Active Start: November 22, 2024 Dr. Romeo Mina MD Nurse Practitioner Active Start: November 22, 2024 Dr. Kenny Pompa MD Nurse Practitioner Active Start: November 22, 2024 Team Status: Active Member Role/Relationship Status Dates Lulu Swanson PROCESS OPERATOR, PROCESS OPERATOR-C Primary care physician Active Start: November 23, 2024 Dr. Ru Marques MD Emergency Department Physician Active Start: November 23, 2024 Dr. Romeo Khan , DO Admitting physician Active Start: November 23, 2024 Dr. Romeo Khan , DO Nurse Practitioner Active Start: November 23, 2024 Dr. Clay Rizzo MD Nurse Practitioner Active Start: November 23, 2024 Dr. Familia Gupta MD Nurse Practitioner Active Start: November 23, 2024 Dr. Fabrice Marte MD Nurse Practitioner Active Sta rt: November 23, 2024 Dr. Dustin Lizarraga MD Nurse Practitioner Active Start: November 23, 2024 Dr. Lg Leong , DO Nurse Practitioner Active S tart: November 23, 2024 Dr. Romeo James MD Nurse Practitioner Active Start: November 23, 2024 Dr. Stefany Mg , DO Nurse Practitioner Active S tart: November 23, 2024 Dr. Antonio Alvarez MD Nurse Practitioner Active Start: November 23, 2024 Dr. Shelby Abel MD Nurse Practitioner Active Start: November 23, 2024 Dr. Horace Pizarro MD Nurse Practitioner Active Start: November 23, 2024 Dr. Malika Salvador MD Nurse Practitioner Active Start: November 23, 2024 Dr. Cirilo Lopez MD Nurse Practitioner Active S tart: November 23, 2024 Dr. Pk Vargas MD Nurse Practitioner Active St art: November 23, 2024 Dr. Orlando Haile MD Nurse Practitioner Active Start: November 23, 2024 Dr. David Padilla MD Nurse Practitioner Active S tart: November 23, 2024 Dr. Luciana Guillermo MD Nurse Practitioner Active Start: November 23, 2024 Dr. Kaur August MD Nurse Practitioner Active Start: November 23, 2024 Dr. Dulce Basurto , Nurse Practitioner Active Start: November 23, 2024 Dr. Jameel Hou MD Nurse Practitioner Active St art: November 23, 2024 Dr. Joseluis Rodriguez MD Nurse Practitioner Active Start: November 23, 2024 Dr. Chelo Servin MD Nurse Practitioner Active Start: November 23, 2024 Dr. Vesta Beavers , Nurse Practitioner Active Start: November 23, 2024 Dr. Edu Keenan MD Nurse Practitioner Active Start: November 23, 2024 Dr. Raheem Cuevas MD Nurse Practitioner Active Start: November 23, 2024 Dr. Bhargav Addison MD Nurse Practitioner Active Start: November 23, 2024 Dr. Varun Tellez , DO Nurse Practitioner Active Start: November 23, 2024 Dr. Kathi Parmar MD Nurse Practitioner Active St art: November 23, 2024 Dr. Joe Barragan MD Nurse Practitioner Active Start: November 23, 2024 Dr. Shivani Ortiz MD Nurse Practitioner Active Start: November 23, 2024 Dr. Juan Jimenez , DO Nurse Practitioner Active Start: November 23, 2024 Dr. Basim Flores MD Nurse Practitioner Active Start: November 23, 2024 Dr. Liz Yang MD Nurse Practitioner Active Start: November 23, 2024 Dr. Alvin Duran MD Nurse Practitioner Active Start: November 23, 2024 Dr. Alejandro Pool MD Nurse Practitioner Active S tart: November 23, 2024 Dr. Romeo Mian MD Attending physician Active Start: November 23, 2024 Dr. Romeo Mina MD Nurse Practitioner Active Start: November 23, 2024 Dr. Kenny Pompa MD Nurse Practitioner Active Start: November 23, 2024 Reason for Visit (unrecogniz ed section and content) Reason Comments Right Knee Pain Specialty Diagnoses / Procedures Referred By Contac t Referred To Contact Family Medicine / FAMILY MEDICINE Diagnoses right knee pain Procedures EST ORTH[facility] Self Gabe Hall V, DO [address] [place] [address] Phone: tel: fax: Referral ID Status Reason Start Date Expiration Date Visits Requested Visits Authorized [id number] Authorized Patient Cleared - Qualified 100% FAS 08/24/2024 11/22/2024 99 99 Reason Comments Spirometry Specialty Diagnoses / Procedures Referred By Contac t Referred To Contact [facility] Diagnoses COPD, mild (HCC) Procedures OXIMETRY WITH AMBULATION NONINVASIVE EAR/PULSE OXIMETRY Dipesh Yeager MD [address] [place] [address] Phone: tel: fax: [facility] [place] [address] [place] [id number] Referral ID Status Reason Start Date Expiration Date V isits Requested Visits Authorized [id number] Closed Auto-Generate d Referral 02/09/2024 03/10/2025 [address] Specialty Diagnoses / Procedures Referred By Contac t Referred To Contact Pulmonary Disease / PULMONARY MEDICINE Diagnoses Encounter for screening for lung cancer [Z12.2] Procedures RI NEW LUNG CANCER SCREENING Lulu Swanson, ASSOCIATE PROFESSOR OF AUTOMATION.[employer] [address] [place] [address] Adwoa De Leon, ASSOCIATE PROFESSOR OF AUTOMATION.[employer] [address] [phone] Referral ID Status Reason Start Date Expiration Date Visits Requested Visits Authorized [id number] Authorized Financial Clearance Required - Self Pay Patient Cleared - Qualified 100% FAS 09/23/2023 12/22/2023 99 99 Reason Comments Refill Request Reason Comments Pain (Shoulder Pain) pain and bruising X 1 week Reason Comments Results Reason Comments Physical Therapy Specialty Diagnoses / Procedures Referred By Contac t Referred To Contact [facility] Diagnoses Nontraumatic complete tear of right rotator cuff Procedures CONSULT TO PHYSICAL THERAPY PHYSICAL THERAPY EVALUATION HIGH COMPLEX 45 MINS Stephanie Kapadia, ASSOCIATE PROFESSOR OF AUTOMATION.[employer], DNP [address] [place] [address] [facility] [place] [id number] Referral ID Status Reason Start Date Expiration Date V isits Requested Visits Authorized [id number] Authorized 02/10/2021 02/09/2022 99 99 Reason Onset Date Comments Refill Request 06/26/2021 Refill Request 06/28/2021 Reason Comments Diarrhea started last evening ; vomiting on Friday, but no more since; + stomach cramping, intermittent; no blood in stools Reason Comments Headache body aches, runny no se x 3 days Reason Onset Date Comments Refill Request 09/24/2021 Reason Onset Date Comments Refill Request 09/19/2021 Refill Request 09/24/2021 Reason Onset Date Comments Refill Request 10/31/2021 Reason Onset Date Comments Refill Request 11/26/2021 Reason Comments Chest Congestion cough, sore throat, headache, ear pain x 5 days Reason Comments Vomiting Reason Onset Date Comments Refill Request 12/21/2021 Reason Comments Patient Question Reason Comments Toothache right bottom x 1 day Reason Onset Date Comments Refill Request 01/09/2022 Reason Comments Patient Update Reason Comments Follow Up Skin lesion on face, last seen one year ago Reason Comments Vomiting Vomiting up all liqu ids consumed, MERCADO x 1 day Reason Onset Date Comments Refill Request 03/08/2022 Reason Comments Orders Reason Comments Acute Visit Started Friday with sore throat, headache and body aches; productive cough; no fever Reason Comments Acute Visit R 3rd toe swollen/merc[address] rd/stinging/some redness Reason Onset Date Comments Refill Request 06/25/2022 Reason Comments Orders Reason Onset Date Comments Refill Request 08/16/2022 Reason Onset Date Comments Refill Request 09/10/2022 Reason Comments Follow Up Urg Care follow up- back pain Reason Comments Knee Pain Reason Comments Knee Pain right knee pain and swelling, knot on back of knee x 4 days Reason Comments Right Knee Pain X 3 days, swelling a nd pain, Reason Comments Knee Pain right foot swelling after told to put compression sleeve on knee Reason Comments CoPat Start Reason Comments Follow Up All Clear Reason Comments Follow Up 2 weeks 2 day postop Rt knee Arthroscopic I & D, syncovectomy Post Op 2 weeks 2 day postop Rt knee Arthroscopic I & D, syncovectomy Reason Onset Date Comments Refill Request 11/11/2022 Reason Onset Date Comments Refill Request 12/12/2022 Reason Comments Appointment Labs prior to appoin tment! Reason Comments Anxiety Reason Onset Date Comments Refill Request 01/10/2023 Reason Onset Date Comments Refill Request 01/17/2023 Reason Onset Date Comments Refill Request 01/24/2023 Reason Onset Date Comments Refill Request 03/21/2023 Reason Onset Date Comments Refill Request 03/13/2023 Reason Onset Date Comments Refill Request 04/10/2023 Reason Comments Medication Request Reason Comments Recheck Follow up/medication review Specialty Diagnoses / Procedures Referred By Mahsa boyd Referred To Contact Diagnoses follow up, med review Procedures follow up med review Lulu Swanson, [facility] [address] [place] [address] [facility] [place] [address] Referral ID Status Reason Start Date Expiration Date Visits Requested Visits Authorized [id number] Authorized Patient Cleared - Qualified 100% FAS 04/21/2023 07/20/2023 99 99 Reason Onset Date Comments Refill Request 05/21/2023 Reason Onset Date Comments Refill Request 06/03/2023 Reason Comments colon consult Specialty Diagnoses / Procedures Referred By Contac t Referred To Contact General Surgery Diagnoses Screening for colon cancer Procedures CONSULT TO GENERAL SURGERY OFFICE/OUTPATIENT [facility] MDM 60 MINUTES Lulu Swanson, ASSOCIATE PROFESSOR OF AUTOMATION.[employer] [address] [place] [address] Referral ID Status Reason Start Date Expiration Date V isits Requested Visits Authorized [id number] Closed PCP Requested Referral 04/29/2023 04/28/2024 1 1 Reason Comments Stress Test Instructions Reason Onset Date Comments Refill Request Refill Request 11/11/2022 Reason Comments Clinical Update Reason Onset Date Comments requesting medication that is 07/08/2023 Reason Onset Date Comments Refill Request 07/25/2023 Reason Comments Toe Injury little toe on left f oot, stubbed x 2 days Reason Onset Date Comments Refill Request 08/11/2023 Reason Comments Established Patient Wart Specialty Diagnoses / Procedures Referred By Mahsa t Referred To Contact Diagnoses All medically necessary appts Procedures All medically necessary appts [place] [facility] [place] [address] Referral ID Status Reason Start Date Expiration Date Visits Requested Visits Authorized [id number] Authorized Patient Cleared - Qualified 100% FAS 08/06/2023 11/04/2023 99 99 Reason Comments Stress Test Instructions for 09/08/23 Reason Comments Pain Back pain on right s jair, shoots down leg x 1.5 weeks Reason Comments Missed stress test Appointment Rescheduled back and leg pain Reason Onset Date Comments request for medication 09/09/2023 Reason Comments Same Day Appointment right leg pain goes down leg , see phone encounter Specialty Diagnoses / Procedures Referred By Mahsa t Referred To Contact Diagnoses All medically necessary appts Procedures All medically necessary appts [place] [facility] [place] [address] Reason Onset Date Comments Refill Request 09/12/2023 Reason Comments Recheck Reason Comments Bump on Head Reason Onset Date Comments Refill Request 10/07/2023 Reason Comments Musculoskeletal Problem Middle knuckle L eft hand swollen x 2 weeks Reason Onset Date Comments Refill Request 10/14/2023 Reason Comments Rx refill; not on current med list Reason Comments 6 Month Exam Reason Comments New Patient LCS Reason Onset Date Comments Refill Request 11/24/2023 Reason Onset Date Comments Refill Request 12/04/2023 Reason Onset Date Comments requesting medication that is 12/08/2023 Reason Comments Results Specialty Diagnoses / Procedures Referred By Mahsa t Referred To Contact Pulmonary Disease / PULMONARY MEDICINE Diagnoses Encounter for screening for lung cancer [Z12.2] Procedures RI NEW LUNG CANCER SCREENING Lulu Swanson, ASSOCIATE PROFESSOR OF AUTOMATION.[employer] [address] [place] [address] Adwoa De Leon, ASSOCIATE PROFESSOR OF AUTOMATION.[employer] [address] [place] [address] Reason Comments posterior neck soreness Reason Comments Acute Visit Neck pain x2 weeks, intermittent, no known injury Reason Onset Date Comments Refill Request 01/06/2024 Reason Comments Acute Visit R pointer finger swe lling/pain x 1 week; intermittent Reason Comments Results Appointment Patient Question Reason Onset Date Comments Refill Request 01/28/2024 Reason Onset Date Comments Patient Left Without Being Seen 02/02/2024 Reason Comments Consult COPD Reason Onset Date Comments Refill Request 02/23/2024 Reason Onset Date Comments Refill Request 03/05/2024 Reason Onset Date Comments Refill Request 03/31/2024 Reason Onset Date Comments Refill Request 04/27/2024 Reason Comments Back Pain 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, 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 Reason Comments Recheck Discuss starting GLP -1 for DM Reason Onset Date Comments Results 05/26/2024 Reason Onset Date Comments Refill Request 06/21/2024 Reason Comments Established Patient Follow up COPD Reason Comments Insurance Authorization Reason Onset Date Comments Refill Request 07/12/2024 Takes 90 per mon th Reason Onset Date Comments Refill Request 07/27/2024 Reason Onset Date Comments Refill Request 08/24/2024 Reason Onset Date Comments Refill Request 08/31/2024 Reason Onset Date Comments Refill Request 09/20/2024 Reason Comments Recheck Medication follow up Patient Left Without Being Seen Specialty Diagnoses / Procedures Referred By Mahsa boyd Referred To Contact [facility] Diagnoses Hyperlipidemia, unspecified hyperlipidemia type [E78.5] History of chest pain [Z87.898] Procedures Hyperlipidemia, unspecified hyperlipidemia type [E78.5] History of chest pain [Z87.898] Lulu Swanson APRN.[employer] [address] [place] [address] Phone: tel: fax: Cardiology [address] [place] [address] Phone: tel: fax: Referral ID Status Reason Start Date Expiration Date Visits Requested Visits Authorized [id number] Authorized Financial Clearance Required - Self Pay Patient Cleared - Qualified HCAP/FA Referred for JOHAN 09/23/2024 12/22/2024 99 99 Reason Comments Recheck Follow up Specialty Diagnoses / Procedures Referred By Mahsa boyd Referred To Contact [facility] Diagnoses Hyperlipidemia, unspecified hyperlipidemia type [E78.5] History of chest pain [Z87.898] Procedures Hyperlipidemia, unspecified hyperlipidemia type [E78.5] History of chest pain [Z87.898] Lulu Swanson APRN.[employer] [address] [place] [address] Phone: tel: fax: Cardiology [address] [place] [address] Phone: tel: fax: Reason Onset Date Comments Refill Request 10/05/2024 Reason Onset Date Comments Refill Request 10/08/2024 Reason Comments Pain (Shoulder Pain) Neck Pain All right side Reason Comments Medication Problem Reason Onset Date Comments Refill Request 10/19/2024 Reason Onset Date Comments Refill Request 10/26/2024 Goals (unrecognized section and content) Goals may be documented in a n alternate section FOR RECORDS PERTAINING TO PATIENTS WHO ARE OR HAVE BEEN ENROLLED IN A CHEMICAL DEPENDENCY/SUBSTANCEABUSE PROGRAM, SOME INFORMATION MAY BE OMITTED. This clinical summary was aggregated from multiple sources. Caution should be exercised in using it in the provision of clinical care. This summary normalizes information from multiple sources, and as a consequence, information in this document may materially change the coding, format and clinical context of patient data. In addition, data may be omitted in some cases. CLINICAL DECISIONS SHOULD BE BASED ON THE PRIMARY CLINICAL RECORDS. [facility] [employer] [facility]. provides no warranty or guarantee of the accuracy or completeness of information in this document.
== END | disposition home or self-care (01) ==
PROVIDERS: PCP Registered Nurse; Referring Provider Internal Medicine Gastroenterology; Visit Provider Internal Medicine Gastroenterology
DX: R93.3 Abnormal findings on diagnostic imaging of other parts of digestive tract (principal); R19.7 Diarrhea, unspecified
CPT/HCPCS: 74177; Q9967

== ENCOUNTER 2025-01-17 08:21 | Day surgery (SDC) | payer SELFPAY ==
--- NOTE | 2025-01-13 17:02 | PAT.ANE_ITS ---
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 When Was Last Pacemaker Check QUESTION #4 FULL TEXT: You/Your Family Experience fever (hyperthermia) with Anesthesia Last Oral Intake Last Oral intake: Last Oral Intake NPO since Meds taken in AM with sips of water? 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 - summer school coordinator Female Yes 01/13/25 15:48 HX of Motion Sickness No 01/13/25 15:48 HX of N/V After Surgery No 01/13/25 15:48 Non-Smoker No 01/13/25 15:48 Duration of Surgery greater No 01/13/25 15:48 than 60 minutes Number of Risk Factors 1 01/13/25 15:48 PONV Score Low Risk 01/13/25 15:48 Height & Weight Height & Weight: Anesthesia: Height & Weight Height 5 ft 1 in 11/22/24 14:21 Respiratory Assessment Respiratory Assessment - summer school coordinator: Respiratory Tract Infection Hx - summer school coordinator Hx Respiratory Tract Infection No 01/13/25 15:48 STOP Sleep Apnea STOP Sleep Apnea - summer school coordinator: STOP Sleep Apnea - summer school coordinator Hx Hypertension Yes: ON MEDS 01/13/25 15:48 Hx Sleep Apnea No 01/13/25 15:48 CPAP BIPAP Do you snore loudly (louder Yes 01/13/25 15:48 than talking or can be heard Do you often feel tired/ No 01/13/25 15:48 fatigued/ sleepy during daytime? Has anyone observed you stop No 01/13/25 15:48 breathing during sleep? STOP Results Positive 01/13/25 15:48 QUESTION #5 FULL TEXT : Do you snore loudly (louder than talking or can be heard through closed doors)? 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 Specify any problems Hx of Preganancy in last 3 No 01/13/25 15:48 Months Nurse Filling Out Transfusion JZOLLINGE 01/13/25 15:48 & Questions: Date: 01/13/25 01/13/25 15:48 Time: 15:51 01/13/25 15:48 Patient unable to answer at this time (ie. confused, unrespo /Reproduction History /Reproductive History - summer school coordinator: /Reproductive Hx- summer school coordinator Hx Now No 01/13/25 15:48 Gestational Age (in weeks): EDC: Hx Hx Para Hx Section SAB No 01/13/25 15:48 Does the father of the baby or his family experience fever w Father of the baby Malignant Hypertension history comment [facility] Medical History (Updated 01/13/25 @ 15:48 by Carina Lozano) Wears glasses Wears dentures Depression Anxiety Schizophrenia Thyroid disease Fatty liver Easy bruising Dietary restriction Heartburn Smoker History of stress test History of echocardiogram Cardiology follow-up encounter History of edema Nicotine use disorder Septic arthritis Elevated coronary artery calcium score Neck pain Bilateral carotid artery stenosis Snoring Peripheral arterial disease Fatty liver disease, nonalcoholic Major depressive disorder, recurrent episode Bradycardia Palpitations SOB (shortness of breath) Diabetic acetonemia COPD (chronic obstructive pulmonary disease) Hyperlipidemia Home Medications ?Medication ?Instructions ?Recorded ?Last Taken ?Type atorvastatin 20 mg tablet 20 mg PO QHS cholesterol 01/27 Unknown History lisinopril 5 mg tablet 5 mg PO DAILY blood pressure 12/22/17 Unknown History metformin 500 mg tablet 500 mg PO DAILY diabetes 01/27 Unknown History aspirin 81 mg tablet,delayed 81 mg PO QDAY heart healt h 01/14/24 Unknown History release (Adult Aspirin Regimen) bupropion HCl 150 mg tablet,12 hr 150 mg PO BID Unknown History sustained-release (Wellbutrin SR) buspirone 5 mg tablet 5 mg PO TID 01/14/24 Unknown History cyclobenzaprine 5 mg tablet 5 mg PO TID PRN spasms 06/03 Unknown History fluticasone fur. 100 mcg-umeclid 1 inh inhalation QDAY 01/14/24 Unknown History 62.5 mcg-vilant 25 mcg inhalat.powder (Trelegy Ellipta) Held on 01/13/25. Instructions: INSURANCE DOES NOT COVER IT ibuprofen 800 mg tablet 800 mg PO Q8H PRN fever or p ain 01/14/24 Unknown History imipramine HCl 50 mg tablet 150 mg PO QHS depression 1 03/16/23 Unknown History thiothixene 2 mg capsule 2 mg PO BID 01/14/24 Unknown History zolpidem 10 mg tablet (Ambien) 10 mg PO QHS PRN sleep 01/14/24 Unknown History melatonin 5 mg capsule 5 mg PO .HS PRN sleep Unknown History albuterol sulfate 90 mcg/actuation 2 puff inhalation Q 6H PRN 11/23/24 Unknown Rx aerosol inhaler (Ventolin HFA) shortness of breath or wheezing #8.5 grams levothyroxine 25 mcg tablet 25 mcg PO DAILY@0600 #90 t abs 11/23/24 Unknown Rx pantoprazole 40 mg tablet,delayed 40 mg PO DAILY #60 t abs 11/23/24 Unknown Rx release bisacodyl 5 mg tablet 20 mg (4 x 5 mg) PO ONCE #4 tabs 01/13/25 Unknown Rx polyethylene glycol 3350 17 238 g PO ONCE #238 grams 1 03/16/24 Unknown Rx gram/dose oral powder Allergy/AdvReac Type Severity Reaction Status Date / Time simvastatin Allergy Other Verified 01/13/25 15:30 Family History Mother Heart disease Father Diabetes Brother Parkinson's disease Surgical History History of arthroscopy of knee History of colonoscopy History of rectal polypectomy History of cardiac catheterization H/O carotid endarterectomy History of appendectomy Social History household members: children Smoking Status: Heavy Smoker (>10/day) alcohol intake: never substance use type: does not use caffeine: Yes Audit: Pertinent Findings Pertinent Findings EKG Perinent findings: November 18, 2024. Sinus rhythm with PACs. Left axis deviation. Incomplete right bundle branch block. Stress test pertinent findings: July 20, 2020. EF is 71%. Rest and stress nuclear imaging demonstrate relatively uniform tracer uptake and myocardial perfusion appearing within normal limits. Echo (EF%) pertinent findings: 11/19/2024. EF is 65%. Valves are not well visualized. Consult pertinent findings: 03/26/2024. Michael VIVAR. 1. Elevated coronary artery calcium score-incidental finding of elevated calcium score of 100. Most recent stress test in 2020 showed no ischemia. Will treat her chest pain with antacids and if no improvement plan for nuclear stress test. 2. Hypertension?well-controlled. 3. Diabetes-last hemoglobin A1c was 6.2. Excellent control. Recommendation Anesthesia Recommendation Anesthesia recommendation: OPTIMIZED for anesthesia
--- NOTE | 2025-01-17 08:44 | PCM.PRE.AN2 ---
ASA Classification* ASA Classification ASA Classification: 3 Assessment & Plan Anesthesia* Anesthesia Assessment Anesthesia Assessment: Discussed sedation and/or anesthesia options, risks, benefits, and alternatives with patient/parents/legal guardian/POA. Questions invited. The patient/parents/legal guardian/POA seems to understand and agrees to proceed with anesthesia plan. Reviewed the physical assessment, medical history, allergy history and patient home medications list prior to surgery/procedure/anesthetic and documented any changes. Performed airway and anesthesia risk assessments. Anesthesia Type Anesthesia Type: MAC Anesthesia Focused Assessment* Airway Assessment Mouth opens: >3 cm Mallampati Score: II Labs Anesthesia Preop lab: CBC WBC, (4.4-11.0) 6.8 K/mm3 12/14/24, 08: RBC, (4.2-5.4) 3.49 M/mm3 L 12/14/24, 08: Hgb, (12.0-15.0) 10.9 g/dL L 12/14/24, 08: Hct, (37-47) 31.7 % L 12/14/24, 08: Plt Count, (150-450) 372 K/mm3 12/14/24, 08:29 CHEMISTRY Potassium, (3.3-5.1) 3.5 mmol/L 11/23/24, 04:42 Sodium, (133-145) 134 mmol/L 11/23/24, 04:42 Magnesium, (1.5-2.2) 1.9 mg/dL 11/23/24, 04:42 Phosphorus, (2.7-4.5) 2.4 mg/dL L 11/23/24, 04:42 BUN, (4-19) 18 mg/dL 11/23/24, 04:42 Creatinine, (0.70-1.20) 0.60 mg/dL L 11/23/24, 04:42 Glucose, (70-99) 175 mg/dL H 11/23/24, 04:42 POC Glucose, (74-106) 169 mg/dL H 11/23/24, 11:34 TSH, (0.300-4.200) 16.900 uIU/mL H 11/18/24, 21:00 COAG PT, (11.7-14.9) 15.7 SECONDS H 11/18/24, 21:00 Pre-Assessment Diagnosis/Proposed Procedure Planned Operative Procedure(s): Colonoscopy Anesthesia History 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 When Was Last Pacemaker Check QUESTION #4 FULL TEXT: You/Your Family Experience fever (hyperthermia) with Anesthesia Last Oral Intake Last Oral intake: Last Oral Intake NPO since Meds taken in AM with sips of water? Meds patient instructed to take am of surgery PONV PONV - hadoop java developer: PONV - hadoop java developer Female Yes 01/13/25 15:48 HX of Motion Sickness No 01/13/25 15:48 HX of N/V After Surgery No 01/13/25 15:48 Non-Smoker No 01/13/25 15:48 Duration of Surgery greater No 01/13/25 15:48 than 60 minutes Number of Risk Factors 1 01/13/25 15:48 PONV Score Low Risk 01/13/25 15:48 Height & Weight Height & Weight: Anesthesia: Height & Weight Height 5 ft 1 in 11/22/24 14:21 Respiratory Assessment Respiratory Assessment - hadoop java developer: Respiratory Tract Infection Hx - hadoop java developer Hx Respiratory Tract Infection No 01/13/25 15:48 STOP Sleep Apnea STOP Sleep Apnea - hadoop java developer: STOP Sleep Apnea - hadoop java developer Hx Hypertension Yes: ON MEDS 01/13/25 15:48 Hx Sleep Apnea No 01/13/25 15:48 CPAP BIPAP Do you snore loudly (louder Yes 01/13/25 15:48 than talking or can be heard Do you often feel tired/ No 01/13/25 15:48 fatigued/ sleepy during daytime? Has anyone observed you stop No 01/13/25 15:48 breathing during sleep? STOP Results Positive 01/13/25 15:48 QUESTION #5 FULL TEXT : Do you snore loudly (louder than talking or can be heard through closed doors)? 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 Specify any problems Hx of Preganancy in last 3 No 01/13/25 15:48 Months Nurse Filling Out Transfusion JZOLLINGE 01/13/25 15:48 & Questions: Date: 01/13/25 01/13/25 15:48 Time: 15:51 01/13/25 15:48 Patient unable to answer at this time (ie. confused, unrespo /Reproduction History /Reproductive History - hadoop java developer: /Reproductive Hx- hadoop java developer Hx Now No 01/13/25 15:48 Gestational Age (in weeks): EDC: Hx Hx Para Hx Section SAB No 01/13/25 15:48 Does the father of the baby or his family experience fever w Father of the baby Malignant Hypertension history comment Active Medications Active Medications: Current Medications Generic Name Dose Route Start Last Admin Trade Name Freq PRN Reason Stop Dose Admin Lactated Ringer's 1,000 mls @ 15 mls/hr 01/17/25 08:30 IV .Q48H SUNITA PFSH Medical History Wears glasses Wears dentures Depression Anxiety Schizophrenia Thyroid disease Fatty liver Easy bruising Dietary restriction Heartburn Smoker History of stress test History of echocardiogram Cardiology follow-up encounter History of edema Nicotine use disorder Septic arthritis Elevated coronary artery calcium score Neck pain Bilateral carotid artery stenosis Snoring Peripheral arterial disease Fatty liver disease, nonalcoholic Major depressive disorder, recurrent episode Bradycardia Palpitations SOB (shortness of breath) Diabetic acetonemia COPD (chronic obstructive pulmonary disease) Hyperlipidemia Home Medications ?Medication ?Instructions ?Recorded ?Last Taken ?Type atorvastatin 20 mg tablet 20 mg PO QHS cholesterol 12/22/17 Unknown History lisinopril 5 mg tablet 5 mg PO DAILY blood pressure 12/22/17 Unknown History metformin 500 mg tablet 500 mg PO DAILY diabetes 12/22/17 Unknown History aspirin 81 mg tablet,delayed 81 mg PO QDAY heart health 01/14/24 Unknown History release (Adult Aspirin Regimen) bupropion HCl 150 mg tablet,12 hr 150 mg PO BID 01/14/24 Unknown History sustained-release (Wellbutrin SR) buspirone 5 mg tablet 5 mg PO TID 01/14/24 Unknown History cyclobenzaprine 5 mg tablet 5 mg PO TID PRN spasms 01/14/24 Unknown History fluticasone fur. 100 mcg-umeclid 1 inh inhalation QDAY 01/14/24 Unknown History 62.5 mcg-vilant 25 mcg inhalat.powder (Trelegy Ellipta) Held on 01/13/25. Instructions: INSURANCE DOES NOT COVER IT ibuprofen 800 mg tablet 800 mg PO Q8H PRN fever or pain 01/14/24 Unknown History imipramine HCl 50 mg tablet 150 mg PO QHS depression 01/14/24 Unknown History thiothixene 2 mg capsule 2 mg PO BID 01/14/24 Unknown History zolpidem 10 mg tablet (Ambien) 10 mg PO QHS PRN sleep 01/14/24 Unknown History melatonin 5 mg capsule 5 mg PO .HS PRN sleep 01/21/24 Unknown History albuterol sulfate 90 mcg/actuation 2 puff inhalation Q6H PRN 11/23/24 Unknown Rx aerosol inhaler (Ventolin HFA) shortness of breath or wheezing #8.5 grams levothyroxine 25 mcg tablet 25 mcg PO DAILY@0600 #90 tabs 11/23/24 Unknown Rx pantoprazole 40 mg tablet,delayed 40 mg PO DAILY #60 tabs 11/23/24 Unknown Rx release bisacodyl 5 mg tablet 20 mg (4 x 5 mg) PO ONCE #4 tabs 01/13/25 Unknown Rx polyethylene glycol 3350 17 238 g PO ONCE #238 grams 01/13/25 Unknown Rx gram/dose oral powder Allergy/AdvReac Type Severity Reaction Status Date / Time simvastatin Allergy Other Verified 01/13/25 15:30 Family History Mother Heart disease Father Diabetes Brother Parkinson's disease Surgical History History of arthroscopy of knee History of colonoscopy History of rectal polypectomy History of cardiac catheterization H/O carotid endarterectomy History of appendectomy Social History household members: children Smoking Status: Heavy Smoker (>10/day) alcohol intake: never substance use type: does not use caffeine: Yes Review of Systems (Anesthesia) ROS Narrative System reviewed and no additional complaints, except as documented.
[2025-01-17 08:54] VITALS: BP 127/78; PULSE 68; RESP 16; TEMP 36.2; O2SAT 95; BMI 27.1
[2025-01-17] MEDS: Lactated Ringers 1,000 ML 15 ML IV (08:59)
--- NOTE | 2025-01-17 09:32 | PCM.HP.STD ---
HPI - General General Date of Admission: 01/17/25 Date of Service: 01/17/25 Chief Complaint: Diarrhea HPI Narrative NORMAN PARSON, is a 64 F who presents [ NORMAN PARSON, is a 64 F who presents to the office today for hospital follow up. [facility] hospitalization 11.19.24 - 11.23.24 pt presents with chest pain. General surgery consulted for possible bowel obstruction. abd/pelvis CT 11.19.24 1. Abrupt narrowing of the proximal sigmoid colon with a short segment of wall thickening. This could represent focal colitis or a mucosal mass lesion. 2. Mild wall thickening of the duodenum with mild adjacent fat stranding, concerning for duodenitis. 3. Mild dilatation of the large and small bowel proximal to the focal narrowing in the proximal sigmoid colon, which could represent a low-grade partial small bowel obstruction. 4. Large amount of stool within the distal sigmoid colon and rectum. 5. Small hiatal hernia. 6. Moderate to severe thoracolumbar spondylosis with mild lumbar scoliosis. abd CT 11.19.24 1. Acute colitis from the mid transverse colon through the sigmoid. 2. Mild-moderate ascites, which has increased. *BGI established 12.14.24 pt reports that she is feeling better since her hospital stay, but reports that she has been having ongoing foul smelling diarrhea since she left the hospital. Pt reports she was given amoxicillin in the hospital. Denies other GI symptoms of concern at this time. [facility] Medical History Wears glasses Wears dentures Depression Anxiety Schizophrenia Thyroid disease Fatty liver Easy bruising Dietary restriction Heartburn Smoker History of stress test History of echocardiogram Cardiology follow-up encounter History of edema Nicotine use disorder Septic arthritis Elevated coronary artery calcium score Neck pain Bilateral carotid artery stenosis Snoring Peripheral arterial disease Fatty liver disease, nonalcoholic Major depressive disorder, recurrent episode Bradycardia Palpitations SOB (shortness of breath) Diabetic acetonemia COPD (chronic obstructive pulmonary disease) Hyperlipidemia Home Medications ?Medication ?Instructions ?Recorded ?Last Taken ?Type atorvastatin 20 mg tablet 20 mg PO QHS cholesterol 12/22/17 Unknown History lisinopril 5 mg tablet 5 mg PO DAILY blood pressure 12/22/17 Unknown History metformin 500 mg tablet 500 mg PO DAILY diabetes 12/22/17 Unknown History aspirin 81 mg tablet,delayed 81 mg PO QDAY heart [facility] 01/14/24 01/14/25 History release (Adult Aspirin Regimen) bupropion HCl 150 mg tablet,12 hr 150 mg PO BID 01/14/24 01/17/25 History sustained-release (Wellbutrin SR) buspirone 5 mg tablet 5 mg PO TID 01/14/24 01/17/25 History cyclobenzaprine 5 mg tablet 5 mg PO TID PRN spasms 01/14/24 Unknown History fluticasone fur. 100 mcg-umeclid 1 inh inhalation QDAY 01/14/24 Unknown History 62.5 mcg-vilant 25 mcg inhalat.powder (Trelegy Ellipta) Held on 01/13/25. Instructions: INSURANCE DOES NOT COVER IT ibuprofen 800 mg tablet 800 mg PO Q8H PRN fever or pain 01/14/24 Unknown History imipramine HCl 50 mg tablet 150 mg PO QHS depression 01/14/24 Unknown History thiothixene 2 mg capsule 2 mg PO BID 01/14/24 Unknown History zolpidem 10 mg tablet (Ambien) 10 mg PO QHS PRN sleep 01/14/24 Unknown History melatonin 5 mg capsule 5 mg PO .HS PRN sleep 01/21/24 Unknown History albuterol sulfate 90 mcg/actuation 2 puff inhalation Q6H PRN 11/23/24 Unknown Rx aerosol inhaler (Ventolin HFA) shortness of breath or wheezing #8.5 grams levothyroxine 25 mcg tablet 25 mcg PO DAILY@0600 #90 tabs 11/23/24 01/17/25 Rx pantoprazole 40 mg tablet,delayed 40 mg PO DAILY #60 tabs 11/23/24 01/17/25 Rx release bisacodyl 5 mg tablet 20 mg (4 x 5 mg) PO ONCE #4 tabs 01/13/25 Unknown Rx polyethylene glycol 3350 17 238 g PO ONCE #238 grams 01/13/25 Unknown Rx gram/dose oral powder Allergy/AdvReac Type Severity Reaction Status Date / Time simvastatin Allergy Other Verified 01/17/25 08:53 Family History Mother Heart disease Father Diabetes Brother Parkinson's disease Surgical History History of arthroscopy of knee History of colonoscopy History of rectal polypectomy History of cardiac catheterization H/O carotid endarterectomy History of appendectomy Social History household members: children Smoking Status: Heavy Smoker (>10/day) alcohol intake: never substance use type: does not use caffeine: Yes ROS Constitutional Constitutional: Denies fatigue, fever(s), poor appetite, weight gain or weight loss Gastrointestinal Gastrointestinal: Denies belching, bloating, change in bowel habits, change in stool character, chewing difficulty, coffee ground emesis, constipation, cramping, diarrhea, dyspepsia, dysphagia, early satiety, excessive flatus, fecal incontinence, heartburn, hematemesis, hematochezia, hemorrhoids, loose stools, melena, nausea, odynophagia, rectal bleeding, tenesmus, vomiting or weight changes Vital Signs Vital Signs Vital Signs: 01/17/25 08:54 01/17/25 08:54 01/17/25 08:54 Temperature 97.2 F L Temperature Source Temporal Pulse Rate 68 Respiratory Rate 16 Respiratory Pattern Normal Blood Pressure 127/78 H Blood Pressure Mean 94 Blood Pressure Source Monitor Blood Pressure Position Right Lateral Blood Pressure Location Right Arm Baseline BP 127/78 Pulse Ox 95 Oxygen Delivery Method Room Air Weight Weight: 143 lb 11.862 oz Body Mass Index (BMI) 27.1 Physical Exam Const alert, oriented x3, no apparent distress and healthy appearing General Appearance: cooperative GI normal to inspection, nondistended, normoactive bowel sounds, soft to palpation, non-tender and non-distended Percussion: normal to percussion Rectal Exam: deferred Assessment & Plan Assessment/Plan (1) Abnormal CT scan, colon: (2) Diarrhea: PLAN: Assessment and Plan Assessment and Plan (1) Abnormal CT scan, colon: Status: Acute Plan: 64-year-old female with a history of COPD presenting with acute exacerbation of COPD, severe hypothermia, and lactic acidosis, now with ongoing diarrhea and new imaging findings of acute colitis and bowel dilation. Acute Exacerbation of COPD:?Presented with shortness of breath and wheezing. Severe Hypothermia (94.4 ?F) resolved. Lactic Acidosis:?Secondary to pneumonia which is resolved Polycythemia (Hemoglobin 18.9 g/dL):?Incidental finding, possibly chronic due to COPD. Acute Colitis/Duodenitis/Partial Bowel Obstruction (PBO): Initial CT showed focal narrowing in the proximal sigmoid colon and duodenal thickening, with proximal dilation and large amount of stool distally. Second CT shows extensive acute colitis from the mid transverse colon through the sigmoid with increased ascites, despite negative infectious workup. Differential diagnoses include ischemic colitis (given clinical status) or other inflammatory causes. Plan: Respiratory Distress/AE COPD:?Continue oxygen support and respiratory management (e.g., bronchodilators, steroids if indicated). Severe Hypothermia:?Implement active rewarming measures. Lactic Acidosis:?Address underlying cause and continue monitoring labs. Colitis/Bowel issues: Monitor abdominal pain/diarrhea. Continue workup for non-infectious causes of colitis (e.g., ischemic, inflammatory). Patient will need to undergo /colonoscopy. Serial abdominal exams, and repeat CT scan abdomen pelvis along with recheck and stool studies and biochemical workup. Monitor for signs of worsening obstruction or perforation. Polycythemia:?Note for chronic management, address after acute issues are stable. Orders: Orders CBC W/Diff, Automated Today R93.3 - Abnormal findings on diagnostic imaging of other parts of digestive tract MARIALUISA + Protein Elect, Serum Today R93.3 - Abnormal findings on diagnostic imaging of other parts of digestive tract Celiac Disease Profile Today R93.3 - Abnormal findings on diagnostic imaging of other parts of digestive tract ANCA Today R93.3 - Abnormal findings on diagnostic imaging of other parts of digestive tract CRP Today R93.3 - Abnormal findings on diagnostic imaging of other parts of digestive tract Erythrocyte Sed Rate Today R93.3 - Abnormal findings on diagnostic imaging of other parts of digestive tract Immunoglobulins G/A/M/E Today R93.3 - Abnormal findings on diagnostic imaging of other parts of digestive tract IBD Expanded Profile Today R93.3 - Abnormal findings on diagnostic imaging of other parts of digestive tract LDH Today R93.3 - Abnormal findings on diagnostic imaging of other parts of digestive tract Quantiferon TB-Gold+ Today R93.3 - Abnormal findings on diagnostic imaging of other parts of digestive tract ENTERIC PATHOGEN PANEL STOOL Today K58.9 - Irritable bowel syndrome, unspecified, R93.3 - Abnormal findings on diagnostic imaging of other parts of digestive tract Stool Lactoferrin/WBC Today K58.9 - Irritable bowel syndrome, unspecified, R93.3 - Abnormal findings on diagnostic imaging of other parts of digestive tract Calprotectin, Stool Today R93.3 - Abnormal findings on diagnostic imaging of other parts of digestive tract Pancreatic Elastase, Fecal Today R93.3 - Abnormal findings on diagnostic imaging of other parts of digestive tract OVA+PARA w/Giardia EIA [id number] Today R93.3 - Abnormal findings on diagnostic imaging of other parts of digestive tract Fecal Fat, Qualitative Today R93.3 - Abnormal findings on diagnostic imaging of other parts of digestive tract Stool Occult Blood iFOB Today R93.3 - Abnormal findings on diagnostic imaging of other parts of digestive tract CDIFF (PCR) Today R93.3 - Abnormal findings on diagnostic imaging of other parts of digestive tract Allergen, Food Profile 14 Today R93.3 - Abnormal findings on diagnostic imaging of other parts of digestive tract Gastrin, Serum Today R93.3 - Abnormal findings on diagnostic imaging of other parts of digestive tract ]
--- NOTE | 2025-01-17 09:45 | EGD_PTH ---
PATIENT: NORMAN PARSON LOC: EN U#:[id number] AGE/SX: 64/F ROOM: RE01/17/[address]: Dr. Hever Ray DO : 1960 BED: DIS: 01/17/2025 SPEC #: [id number] RECD: 01/17/25 12:21 STATUS: EUNICE RERyder #: [id number] VANITA: 01/17/25 09:[address]: Hever Ray DEPT: SURGICAL PATHOLOGY RECD BY: Cora Granger ENTERED: 01/17/25 13:19 SP TYPE: EGD BIOPSY OTHR DR: Lulu Esparza, [employer] Tissues: A - Duodenum, NOS B - COLON BIOPSY Procedures: Immunohistochemical Stains Surgery Specimen Level IV IHC Stain ADDITIONAL Comments: Called office on 01/19 at 09:09am and spoke to Nurse- Carmen - relayed the information about the positive IHC. Carmen will inform Dr. Ray HEADER OPERATION: Colonoscopy with biopsies, EGD with biopsy PRE-OP DIAGNOSIS: Abnormal CT scan, colon, diarrhea TISSUE SUBMITTED: A- Duodenum biopsy, B- Left side of colon biopsy MICROSCOPIC DIAGNOSIS A. Small intestine, duodenum, biopsy: - Normal villous architecture with no specific pathologic change. - Negative for increased intraepithelial lymphocytes. B. Colon, left, biopsy: - Ulcerated colonic mucosa with active chronic inflammation and crypt distortion. - No granulomas or dysplasia seen. - IHC for CMV and HSV PENDING, to be reported in an addendum. MICROSCOPIC DESCRIPTION Slides are reviewed. GROSS DESCRIPTION A. Received in fixative is one container labeled with the patient's name and designated Duodenum biopsy. The specimen consists of multiple irregular fragments of ellis tissue that in aggregate measure 1.2 x 0.6 x 0.1 cm. The specimen is totally submitted in one cassette. B. Received in fixative is one container labeled with the patient's name and designated Left side of colon biopsy. The specimen consists of multiple irregular fragments of ellis tissue that in aggregate measure 1 x 0.7 x 0.1 cm. The specimen is totally submitted in one cassette. IN 01/17/2025 CPT:34705h8,63950,84651 ADDENDUM ADDENDUM ADDENDUM ADDENDUM ADDENDUM ADDENDUM ADDENDUM ADDENDUM 01/19/2025 09:07 ADDENDUM 01/19/2025 09:07 ADDENDUM 01/19/2025 09:07 ADDENDUM 01/19/2025 09:07 ADDENDUM 01/19/2025 09:07 This addendum is to report the IHC stains on part B: B. Rare cells are positive for CMV (cytomegalovirus) by IHC. IHC for HSV (herpes simplex virus types I&II) is negative. Dr Ray's office was notified of the addendum report on 01/19/25 (Helen Sheets, phone call).
[2025-01-17 10:50] VITALS: BP 120/68; BP 127/78; PULSE 90; RESP 20; TEMP 36.6; O2SAT 93
--- NOTE | 2025-01-17 10:52 | PCM.POST.ANE ---
Anesthesia: Postop Eval I Current Vital Signs Temperature: 97.8 F Pulse Rate: 92 Blood Pressure: 120/68 Respiratory Rate: 16 Pulse Ox: 95 Oxygen Delivery Method: Room Air Assessment Airway patent: Yes Spontaneous unlabored respirations: Yes Mental status: Awake nausea: No Vomiting: No Anesthesia Complication: Yes Anesthesia Complication Comment:: profuse coughing with some O2 desat Fluid Hydration Crystalloid volume administer (ml): 800 Total IV fluid infused: 800 Progress Note Anesthesia document: Postop Eval 1 completed: Yes
[2025-01-17 10:53] VITALS: BP 120/68; PULSE 92; RESP 16; TEMP 36.6; O2SAT 95
--- NOTE | 2025-01-17 10:53 | OP.EGD_ITS ---
Patient Name: David Aldrich Procedure Date: 01/17/2025 10:15 AM Date of : 1960 Age: 64 Procedure: Upper GI endoscopy Indications: Epigastric abdominal pain, Functional Dyspepsia Providers: Hever Ray DO Referring MD: Lulu Esparza Medicines: Monitored Anesthesia Care Patient Profile: This is a 64 year old female. Refer to note in patient chart for documentation of history and physical. Patient has symptoms. Complications: No immediate complications. Procedure: Pre-Anesthesia Assessment: - Prior to the procedure, a History and Physical was performed, and patient medications and allergies were reviewed. The patient is competent. The risks and benefits of the procedure and the sedation options and risks were discussed with the patient. All questions were answered and informed consent was obtained. Patient identification and proposed procedure were verified by the physician in the pre-procedure area. Mental Status Examination: alert and oriented. Airway Examination: normal oropharyngeal airway and neck mobility. Respiratory Examination: clear to auscultation. CV Examination: normal. Prophylactic Antibiotics: The patient does not require prophylactic antibiotics. Prior Anticoagulants: The patient has taken no anticoagulant or antiplatelet agents except for NSAID medication. ASA Grade Assessment: II - A patient with mild systemic disease. After reviewing the risks and benefits, the patient was deemed in satisfactory condition to undergo the procedure. The anesthesia plan was to use monitored anesthesia care (MAC). Immediately prior to administration of medications, the patient was re-assessed for adequacy to receive sedatives. The heart rate, respiratory rate, oxygen saturations, blood pressure, adequacy of pulmonary ventilation, and response to care were monitored throughout the procedure. The physical status of the patient was re-assessed after the procedure. After obtaining informed consent, the endoscope was passed under direct vision. Throughout the procedure, the patient's blood pressure, pulse, and oxygen saturations were monitored continuously. The Colonoscope was introduced through the mouth, and advanced to the third part of the duodenum. Small bowel enteroscopy was deemed necessary. The upper GI endoscopy was accomplished without difficulty. The patient tolerated the procedure well. Scope In: 10:25:35 AM Scope Out: 10:28:34 AM Total Procedure Duration Time 0 hours 2 minutes 59 seconds Findings: The examined esophagus was normal. A medium-sized hiatal hernia was present. Patchy mildly erythematous mucosa without bleeding was found in the gastric body. Biopsies were taken with a cold forceps for histology. Verification of patient identification for the specimen was done. Estimated blood loss was minimal. Biopsies were taken with a cold forceps for Helicobacter pylori testing. Verification of patient identification for the specimen was done. Estimated blood loss was minimal. Patchy mildly erythematous mucosa without active bleeding and with no stigmata of bleeding was found in the entire duodenum. Biopsies were taken with a cold forceps for histology. Verification of patient identification for the specimen was done. Estimated blood loss was minimal. Impression: - Normal esophagus. - Medium-sized hiatal hernia. - Erythematous mucosa in the gastric body. Biopsied. - Erythematous duodenopathy. Biopsied. Recommendation: - Discharge patient to home. - Resume previous diet. - Continue present medications. - Await pathology results. Procedure Code(s): --- Professional --- 29505, Small intestinal endoscopy, enteroscopy beyond second portion of duodenum, not including ileum; with biopsy, single or multiple CPT copyright 2021 [employer]. All rights reserved. The codes documented in this report are preliminary and upon tailoring teacher review may be revised to meet current compliance requirements. Hever Ray DO 01/17/2025 10:53:05 AM This report has been signed electronically. Number of Addenda: 0 Note Initiated On: 01/17/2025 10:15 AM
--- NOTE | 2025-01-17 10:53 | OP.PROVAT_ITS ---
01/17/2025 Lulu Esparza Re : Upper GI endoscopy procedure for David Aldrich Tinar Isaias This procedure was performed on Friday, January 17, 2025. My impressions and recommendations are as follows: Impressions : - Normal esophagus. - Medium-sized hiatal hernia. - Erythematous mucosa in the gastric body. Biopsied. - Erythematous duodenopathy. Biopsied. Recommendations : - Discharge patient to home. - Resume previous diet. - Continue present medications. - Await pathology results. My findings are described in the full procedure note, which is enclosed. If I can be of further assistance, please feel free to contact me at . Sincerely, Hever Ray, 01/17/2025 10:53:05 AM This report has been signed electronically.
[2025-01-17 10:55] VITALS: BP 110/58; BP 127/78; PULSE 97; RESP 18; O2SAT 95
--- NOTE | 2025-01-17 10:59 | OP.COLON_ITS ---
Patient Name: David Aldrich Procedure Date: 01/17/2025 10:28 AM Date of : 1960 Age: 64 Procedure: Colonoscopy Indications: Screening for colorectal malignant neoplasm Providers: Hever Ray DO Referring MD: Lulu Esparza Medicines: Monitored Anesthesia Care Patient Profile: This is a 64 year old female. Refer to note in patient chart for documentation of history and physical. Patient has symptoms. Last Colonoscopy: date unknown. Unable to locate last colonoscopy report. Complications: No immediate complications. Procedure: Pre-Anesthesia Assessment: - Prior to the procedure, a History and Physical was performed, and patient medications and allergies were reviewed. The patient is competent. The risks and benefits of the procedure and the sedation options and risks were discussed with the patient. All questions were answered and informed consent was obtained. Patient identification and proposed procedure were verified by the physician in the pre-procedure area. Mental Status Examination: alert and oriented. Airway Examination: normal oropharyngeal airway and neck mobility. Respiratory Examination: clear to auscultation. CV Examination: normal. Prophylactic Antibiotics: The patient does not require prophylactic antibiotics. Prior Anticoagulants: The patient has taken no anticoagulant or antiplatelet agents except for NSAID medication. ASA Grade Assessment: II - A patient with mild systemic disease. After reviewing the risks and benefits, the patient was deemed in satisfactory condition to undergo the procedure. The anesthesia plan was to use monitored anesthesia care (MAC). Immediately prior to administration of medications, the patient was re-assessed for adequacy to receive sedatives. The heart rate, respiratory rate, oxygen saturations, blood pressure, adequacy of pulmonary ventilation, and response to care were monitored throughout the procedure. The physical status of the patient was re-assessed after the procedure. After I obtained informed consent, the scope was passed under direct vision. Throughout the procedure, the patient's blood pressure, pulse, and oxygen saturations were monitored continuously. The Colonoscope was introduced through the anus and advanced to the cecum, identified by the ileocecal valve. The colonoscopy was performed without difficulty. The patient tolerated the procedure well. The quality of the bowel preparation was poor. The ileocecal valve was photographed. Scope In: 10:30:05 AM Scope Withdrawal Time 0 hours 5 minutes 0 seconds Scope Out: 10:41:58 AM Total Procedure Duration Time 0 hours 11 minutes 53 seconds Findings: The perianal and digital rectal examinations were normal. Multiple six mm ulcers were found in the recto-sigmoid colon, in the sigmoid colon and in the descending colon. Oozing was present. No stigmata of recent bleeding were seen. Biopsies were taken with a cold forceps for histology. Verification of patient identification for the specimen was done. Estimated blood loss was minimal. Stool was found in the recto-sigmoid colon, in the sigmoid colon, in the descending colon and in the transverse colon. Lavage of the area was performed using greater than 500 mL, resulting in incomplete clearance with continued poor visualization. Impression: - Preparation of the colon was poor. - Multiple ulcers in the recto-sigmoid colon, in the sigmoid colon and in the descending colon. Biopsied. - Stool in the recto-sigmoid colon, in the sigmoid colon, in the descending colon and in the transverse colon. Recommendation: - Discharge patient to home. - Resume previous diet. - Continue present medications. - Await pathology results. - Repeat colonoscopy because the bowel preparation was poor. Procedure Code(s): --- Professional --- 39129, Colonoscopy, flexible; with biopsy, single or multiple CPT copyright 2021 [employer]. All rights reserved. The codes documented in this report are preliminary and upon hooking machine operator review may be revised to meet current compliance requirements. Hever Ray DO 01/17/2025 10:58:51 AM This report has been signed electronically. Number of Addenda: 0 Note Initiated On: 01/17/2025 10:28 AM
--- NOTE | 2025-01-17 10:59 | OP.PROVAT_ITS ---
01/17/2025 Lulu Esparza Re : Colonoscopy procedure for David Aldrich Tinar Isaias This procedure was performed on Friday, January 17, 2025. My impressions and recommendations are as follows: Impressions : - Preparation of the colon was poor. - Multiple ulcers in the recto-sigmoid colon, in the sigmoid colon and in the descending colon. Biopsied. - Stool in the recto-sigmoid colon, in the sigmoid colon, in the descending colon and in the transverse colon. Recommendations : - Discharge patient to home. - Resume previous diet. - Continue present medications. - Await pathology results. - Repeat colonoscopy because the bowel preparation was poor. My findings are described in the full procedure note, which is enclosed. If I can be of further assistance, please feel free to contact me at . Sincerely, Hever Ray, 01/17/2025 10:58:51 AM This report has been signed electronically.
[2025-01-17 11:00] VITALS: BP 118/69; BP 127/78; PULSE 96; RESP 18; TEMP 36.7; O2SAT 98
[2025-01-17 11:15] VITALS: BP 127/78
--- NOTE | 2025-01-17 12:02 | PCM.POSTANE2 ---
Anesthesia Postop Eval I Sum Postop Eval Completion status Anesthesia document: Postop Eval 1 completed: Yes Anesthesia Postop Eval I Summary Anesthesia Postop Eval I Summary: Anesthesia Postop Eval I: Assessment Summary Airway patent Yes 01/17/25 10:53 [email or web address] Spontaneous unlabored Yes 01/17/25 10:53 [email or web address] respirations Mental status Awake 01/17/25 10:53 [email or web address] nausea No 01/17/25 10:53 [email or web address] Vomiting No 01/17/25 10:53 [email or web address] Anesthesia Postop Eval I: Fluid Summary Crystalloid volume administer 800 01/17/25 10:53 [email or web address] (ml) Colloids volume administered ( ml) Blood Product volume administered (ml) Total IV fluid infused 800 01/17/25 10:53 [email or web address] Anesthesia Postop Eval I: Summary Notes Anesthesia Complication Yes 01/17/25 10:53 [email or web address] Anesthesia Complication profuse coughing 01/17/25 10:53 [email or web address] Comment: with some O2 desat Post-operative progress note Anesthesia: Postop Eval II Evaluation Mental status: Awake Pain Level: 0 nausea: No Vomiting: No
== END 2025-01-17 11:27 | disposition home or self-care (01) ==
LOC: EN 08:22 → AC 08:23
PROVIDERS: PCP Registered Nurse; Referring Provider Registered Nurse; Visit Provider Internal Medicine Gastroenterology
PROC: 0DJD8ZZ Inspection of Lower Intestinal Tract, Via Natural or Artificial Opening Endoscopic (ICD-10-PCS; CPT 45378; principal; 2025-01-17 09:40)
DX: K63.3 Ulcer of intestine (principal); J44.9 Chronic obstructive pulmonary disease, unspecified; K44.9 Diaphragmatic hernia without obstruction or gangrene; K52.9 Noninfective gastroenteritis and colitis, unspecified; E78.5 Hyperlipidemia, unspecified; F17.200 Nicotine dependence, unspecified, uncomplicated; Z79.899 Other long term (current) drug therapy; Z79.890 Hormone replacement therapy; Z79.82 Long term (current) use of aspirin
CPT/HCPCS: 45380; 44361; 82962; 88305; 88341; 88342; J2405